=== PATIENT | male | born 1945 | race Caucasian/White ===

== ENCOUNTER → 2017-12-18 13:21 | Outpatient (CLI) | payer MEDICARE, SELFPAY ==
[2017-12-18 15:46] LABS: Absolute Lymphocyte Count 2.33 X10^3/ul (0.83-4.51); Absolute Neutrophil Count 5.2 X10^3/uL (2.0-7.7); Basophil# 0.02 X10^3/uL; Basophil% 0.2 % (0-1); Eosinophil# 0.09 X10^3/uL; Eosinophils% 1.1 % (0-5); Hematocrit 45.9 % (40-54); Hemoglobin 15.1 g/dl (13.0-16.5); Lymphocyte # 2.33 X10^3/ul (4.0); Lymphocyte % 27.9 % (19-41); Mean Corp Hgb Conc 32.9 g/gl (32-36); Mean Corpuscular Hgb 30.1 pg (27.0-32.0); Mean Corpuscular Volume 91.4 fL (80-94); Mean Platelet Vol. 10.7 fl (6.2-12.0); Monocyte# 0.65 X10^3/uL; Monocyte% 7.8 % (0-10); Neutrophil # 5.23 X10^3/uL (2.7-7.7); Neutrophil % 62.8 % (47-70); Platelet Count 321 K/mm3 (150-450); RBC Distribution Width CV 13.7 % (11.6-14.6); RBC Distribution Width SD 45.2 fl (35.1-43.9); Red Blood Count 5.02 M/mm3 (4.6-6.2); White Blood Count 8.3 K/mm3 (4.4-11.0)
[2017-12-18 15:47] LABS: POSITIVE COUNT NO; POSITIVE DIFFERENTIAL NO; POSITIVE MORPHOLOGY NO
[2017-12-18 16:22] LABS: AST(SGOT) 15 U/L (15-37); Alanine Aminotransfer ALT/SGPT 15 U/L (16-61); Albumin, Serum 3.5 g/dL (3.2-5.0); Alkaline Phosphatase 79 U/L (45-117); Anion Gap 10 (5-15); BUN 15 mg/dL (7-18); Chloride 100 mmol/L (98-107); Creatinine, Serum 0.65 mg/dL (0.70-1.30); EST Glomerular Filtration Rate 128 mL/min (>60); Est Glom Filt Rate - Afr Amer 155 mL/min (>60); Globulin 3.6 g/dL (2.2-4.2); Glucose 154 mg/dL (70-110); Potassium 4.3 mmol/L (3.5-5.1); Protein, Total 7.1 g/dL (6.4-8.2); Sodium Level 141 mmol/L (136-145); Thyroid Stim Hormone (TSH) 2.29 uIU/mL (0.358-3.74)
[2017-12-19 07:46] LABS: Hep C Antibodies <0.1 s/co ratio (0.0-0.9)
[2017-12-19 10:58] LABS: Vitamin D,25 Hydroxy 7.7 ng/mL (19.95-100.01)
== END ==
PROVIDERS: Family Provider Family Medicine Geriatric Medicine; PCP Family Medicine Geriatric Medicine; Visit Provider Family Medicine Geriatric Medicine
DX: E11.9 Type 2 diabetes mellitus without complications (principal); E55.9 Vitamin D deficiency, unspecified; I10 Essential (primary) hypertension; Z13.89 Encounter for screening for other disorder
CPT/HCPCS: 36415; 80053; 82306; 84443; 85025; 86803

== ENCOUNTER → 2018-03-12 16:02 | Outpatient (CLI) | payer MEDICARE, SELFPAY ==
[2018-03-12 17:55] LABS: Absolute Lymphocyte Count 2.47 X10^3/ul (0.83-4.51); Absolute Neutrophil Count 5.2 X10^3/uL (2.0-7.7); Basophil# 0.02 X10^3/uL; Basophil% 0.2 % (0-1); Eosinophil# 0.16 X10^3/uL; Eosinophils% 1.8 % (0-5); Hematocrit 44.5 % (40-54); Hemoglobin 14.4 g/dl (13.0-16.5); Lymphocyte # 2.47 X10^3/ul (4.0); Lymphocyte % 28.5 % (19-41); Mean Corp Hgb Conc 32.4 g/gl (32-36); Mean Corpuscular Hgb 29.8 pg (27.0-32.0); Mean Corpuscular Volume 92.1 fL (80-94); Mean Platelet Vol. 10.7 fl (6.2-12.0); Monocyte% 9.2 % (0-10); Neutrophil # 5.19 X10^3/uL (2.7-7.7); Neutrophil % 60.1 % (47-70); Platelet Count 321 K/mm3 (150-450); RBC Distribution Width CV 13.3 % (11.6-14.6); RBC Distribution Width SD 44.5 fl (35.1-43.9); Red Blood Count 4.83 M/mm3 (4.6-6.2); White Blood Count 8.7 K/mm3 (4.4-11.0)
[2018-03-12 17:59] LABS: POSITIVE COUNT NO; POSITIVE DIFFERENTIAL NO; POSITIVE MORPHOLOGY NO
[2018-03-12 18:34] LABS: ALB/GLOB Ratio 0.9 RATIO (0.9-2.4); AST(SGOT) 15 U/L (15-37); Alanine Aminotransfer ALT/SGPT 18 U/L (16-61); Albumin, Serum 3.4 g/dL (3.2-5.0); Alkaline Phosphatase 83 U/L (45-117); Anion Gap 7 (5-15); BUN 17 mg/dL (7-18); BUN/Creat Ratio 22.9 RATIO (10-20); Calcium,Total 9.6 mg/dL (8.5-10.1); Chloride 102 mmol/L (98-107); Creatinine, Serum 0.74 mg/dL (0.70-1.30); EST Glomerular Filtration Rate 110 mL/min (>60); Est Glom Filt Rate - Afr Amer 133 mL/min (>60); Globulin 3.7 g/dL (2.2-4.2); Glucose 163 mg/dL (74-106); Potassium 4.7 mmol/L (3.5-5.1); Protein, Total 7.1 g/dL (6.4-8.2); Sodium Level 142 mmol/L (136-145); Thyroid Stim Hormone (TSH) 4.91 uIU/mL (0.358-3.74)
== END ==
PROVIDERS: Family Provider Family Medicine Geriatric Medicine; PCP Family Medicine Geriatric Medicine; Visit Provider Family Medicine Geriatric Medicine
DX: L03.119 Cellulitis of unspecified part of limb (principal); I10 Essential (primary) hypertension
CPT/HCPCS: 36415; 80053; 84443; 85025

== ENCOUNTER → 2018-04-03 16:55 | Outpatient (CLI) | payer MEDICARE, SELFPAY ==
[2018-04-03 19:26] LABS: M R Staph aureus DNA By PCR POSITIVE (Negative); Probe Check PASS; Staph aureus DNA By PCR POSITIVE (Negative)
== END ==
PROVIDERS: Family Provider Family Medicine Geriatric Medicine; PCP Family Medicine Geriatric Medicine; Visit Provider Family Medicine Geriatric Medicine
DX: L03.119 Cellulitis of unspecified part of limb (principal); J40 Bronchitis, not specified as acute or chronic
CPT/HCPCS: 87070; 87077; 87186; 87205; 87640

== ENCOUNTER → 2018-04-04 09:50 | Outpatient (CLI) | payer MEDICARE, SELFPAY ==
[2018-04-04 16:04] LABS: Absolute Lymphocyte Count 3.79 X10^3/ul (0.83-4.51); Absolute Neutrophil Count 5.6 X10^3/uL (2.0-7.7); Basophil# 0.02 X10^3/uL; Basophil% 0.2 % (0-1); Eosinophil# 0.03 X10^3/uL; Eosinophils% 0.3 % (0-5); Hemoglobin 13.9 g/dl (13.0-16.5); Lymphocyte # 3.79 X10^3/ul (4.0); Lymphocyte % 36.4 % (19-41); Mean Corp Hgb Conc 33.1 g/gl (32-36); Mean Corpuscular Hgb 30.2 pg (27.0-32.0); Mean Corpuscular Volume 91.1 fL (80-94); Monocyte# 0.89 X10^3/uL; Monocyte% 8.5 % (0-10); Neutrophil # 5.61 X10^3/uL (2.7-7.7); Neutrophil % 53.9 % (47-70); Platelet Count 339 K/mm3 (150-450); RBC Distribution Width SD 43.1 fl (35.1-43.9); Red Blood Count 4.61 M/mm3 (4.6-6.2); White Blood Count 10.4 K/mm3 (4.4-11.0)
[2018-04-04 16:06] LABS: POSITIVE COUNT NO; POSITIVE DIFFERENTIAL NO; POSITIVE MORPHOLOGY NO
[2018-04-04 16:08] LABS: Anion Gap 9 (5-15); BUN 20 mg/dL (7-18); BUN/Creat Ratio 23.7 RATIO (10-20); Calcium,Total 9.3 mg/dL (8.5-10.1); Chloride 104 mmol/L (98-107); Creatinine, Serum 0.84 mg/dL (0.70-1.30); EST Glomerular Filtration Rate 95 mL/min (>60); Est Glom Filt Rate - Afr Amer 115 mL/min (>60); Glucose 212 mg/dL (74-106); Potassium 4.4 mmol/L (3.5-5.1); Sodium Level 137 mmol/L (136-145)
== END ==
PROVIDERS: Family Provider Family Medicine Geriatric Medicine; PCP Family Medicine Geriatric Medicine; Visit Provider Family Medicine Geriatric Medicine
DX: R60.9 Edema, unspecified (principal); B97.0 Adenovirus as the cause of diseases classified elsewhere
CPT/HCPCS: 36415; 80048; 85025; 87633

== ENCOUNTER → 2018-04-18 15:30 | Outpatient (CLI) | payer MEDICARE, SELFPAY ==
[2018-04-18 17:42] LABS: M R Staph aureus DNA By PCR Negative (Negative); Probe Check PASS; Specimen Processing Control PASS; Staph aureus DNA By PCR NEGATIVE (Negative)
== END ==
PROVIDERS: Family Provider Family Medicine Geriatric Medicine; PCP Family Medicine Geriatric Medicine; Visit Provider Family Medicine Geriatric Medicine
DX: L03.119 Cellulitis of unspecified part of limb (principal)
CPT/HCPCS: 87070; 87077; 87186; 87205; 87640

== ENCOUNTER → 2018-05-06 14:21 | Outpatient (CLI) | payer MEDICARE, SELFPAY ==
--- NOTE | 2018-04-03 17:05 | RAD_ITS ---
STUDY: X-RAY CHEST REASON FOR EXAM: Male, 72 years old. Bronchitis TECHNIQUE: Frontal and lateral views of the chest. COMPARISON: August 09, 2017 FINDINGS: Mild perihilar bronchovascular predominance. There is no demonstrated pleural abnormality. Normal size heart. Normal mediastinum and ervin. Normal visualized pulmonary arteries. Normal visualized aortic arch and descending thoracic aorta. Normal visualized thoracic spine. Normal visualized ribs, clavicles, and shoulders. There is no demonstrated abnormality of the visualized soft tissue structures of the upper abdomen. RAD/Chest PA and Lateral IMPRESSION: Possible bronchitis. Possible mild CHF. Electronically Signed: Jose Antonio Hamilton MD at 17:42 EDT , Service support ,
[2018-05-06 17:43] LABS: Thyroid Stim Hormone (TSH) 3.08 uIU/mL (0.358-3.74)
== END ==
PROVIDERS: Family Provider Family Medicine Geriatric Medicine; PCP Family Medicine Geriatric Medicine; Visit Provider Family Medicine Geriatric Medicine
DX: E03.9 Hypothyroidism, unspecified (principal)
CPT/HCPCS: 36415; 71046; 84443

== ENCOUNTER 2018-05-16 14:58 | Outpatient (RCR) | payer MEDICARE, SELFPAY ==
[2018-05-16 16:05] VITALS: BP 167/92; PULSE 63; RESP 22; TEMP 36.6; BMI 40.7
--- NOTE | 2018-05-16 21:27 | PCM.WC.HP ---
(1) CHF (congestive heart failure) Status: Acute Code(s): I50.9 - Heart failure, unspecified (2) Bilateral edema of lower extremity Status: Chronic Code(s): R60.0 - Localized edema (3) DM type 2 (diabetes mellitus, type 2) Status: Chronic Code(s): E11.9 - Type 2 diabetes mellitus without complications (4) Essential hypertension Status: Chronic Code(s): I10 - Essential (primary) hypertension (5) Peripheral vascular disease Status: Suspected Code(s): I73.9 - Peripheral vascular disease, unspecified History of Present Illness Date of Service: 05/16/18 Chief Complaint: B/L lower extremity edema History of Wound: This is a 72-year-old white male who presents to the wound healing center today for evaluation of bilateral lower extremity edema. He has a past medical history which is significant for that of hypertension hyperlipidemia, GERD, type 2 diabetes mellitus, CHF, and lower extremity edema. The patient states that his lower extremity edema has been worsened over the past couple weeks. He states that his swelling is dependent and usually improves when he raises his feet, however he has not been able to do so lately due to chronic low back pain d/t spinal stenosis that prevents him from laying in bed at night as well. He denies any active wounds at this time. An echocardiogram was done in 2016 which demonstrated an ejection fraction of 60% with mild to moderate tricuspid insufficiency and RVSP 34 mmHg. He does deny any orthopnea or dyspnea on exertion at this time as well. He otherwise denies any fever, chills, nausea, vomiting, shortness of breath, chest pain or pressure, syncope or presyncopal episodes. Past Medical History Past Medical History: Chronic Problems Hypothyroidism (Chronic) Dyslipidemia (Chronic) DM type 2 (diabetes mellitus, type 2) (Chronic) Essential hypertension (Chronic) Bilateral edema of lower extremity (Chronic) Constipation (Chronic) Abdominal pain (Chronic) Chronic GERD (Chronic) Xerosis of skin (Chronic) Risk for falls (Chronic) Venous insufficiency (Chronic) Diabetes mellitus with neuropathy (Chronic) Venous stasis dermatitis of right lower extremity (Chronic) Surgical History: rotator cuff repair, - Allergies/Adverse Reactions: Allergies cocaine Allergy (Verified 05/17/18 09:51) Unknown atorvastatin calcium [From Lipitor] Adverse Reaction (Verified 05/17/18 09:51) Pain in joints haloperidol [From Haldol] Adverse Reaction (Verified 05/17/18 09:51) Other WENT CRAZY morphine Adverse Reaction (Verified 05/17/18 09:51) Other extremely aggitated oxycodone [From OxyIR] Adverse Reaction (Verified 05/17/18 09:51) Pain in joints extremely aggitated prednisone Adverse Reaction (Verified 05/17/18 09:51) ANXIOUS, INSOMNIA STERIODS Adverse Reaction (Uncoded 05/17/18 09:51) Other ANXIETY INSOMNIA Home Medications: Ambulatory Orders Medication Instructions Recorded Insulin Glargine,Hum.rec.anlog 45 unit SC QHS 09/27/16 [Lantus] Levothyroxine [Synthroid] 88 mcg PO DAILY 09/27/16 Paroxetine HCl [Paxil] 40 mg PO DAILY 09/27/16 Potassium Chloride [K-Dur] 20 meq PO BID 09/27/16 Simvastatin [Zocor] 40 mg PO QHS 09/27/16 Sitagliptin Phosphate [Januvia] 100 mg PO DAILY 09/27/16 Torsemide [Demadex] 20 mg PO BID 09/27/16 traZODone [Desyrel] 50 mg PO QHS 09/27/16 Aspirin 81 mg PO DAILY 08/14/17 Divalproex Sodium [Depakote] 500 mg PO BID 08/14/17 Gabapentin [Neurontin] 300 mg PO ACHS 08/14/17 Insulin Lispro [Humalog KwikPen] 0 unit SQ 4X/DAY 08/14/17 Allopurinol 100 mg PO DAILY 05/17/18 Diclofenac [Voltaren] 25 mg PO BIDCM 05/17/18 Dulaglutide [Trulicity] 1.5 mg SQ QWEEK 05/17/18 - Family History Maternal Unknown Paternal Heart Disease - decased age 73 Smoking Status: Smoker, status unknown Review of Systems Constitutional: Denies: Chills, Fever, Weight Change Eyes: Denies: Pain, Vision Change HEENT: Denies: Difficulty Hearing, Difficulty Swallowing, Sinus Congestion Cardiovascular: Reports: Edema - see hpi. Denies: Chest Pain, Palpitations Respiratory: Denies: Cough, Shortness of Breath Gastrointestinal: Denies: Diarrhea, Nausea, Vomiting Genitourinary: Denies: Dysuria, Hematuria Endocrine: Denies: Heat/ Cold Intolerance, Polydipsia, Polyuria Hematologic/ Lymphatic: Denies: Easy Bruising, Easy Bleeding - Physical Exam Vital Signs Temp Pulse Resp BP 98 F 63 22 H 167/92 H 05/16/18 16:05 05/16/18 16:05 05/16/18 16:05 05/16/18 16:05 General: Alert, Oriented x3, Cooperative, No apparent distress HEENT: PERRLA, EOMI Neck: Supple, No JVD, Negative Carotid Bruits Lungs: Clear to auscultation, Normal air movement Cardiovascular: Regular rate, Regular Rhythm Abdomen: Soft, Non Tender Extremities: Capillary Refill Less than 3 Seconds, Diminished Peripheral Pulses, Edema - 3+ BLLE edema, slight erythema present RLE w/o signs of infection Skin: No rashes, No breakdown Musculoskeletal: Tenderness - low back Neurological: Cranial nerves II-XII grossly intact, Neuro grossly intact Psych/Mental Status: Normal Affect, Appropriate, Alert and oriented to time, place, person, mood and affect Debridement Note Post-Debridement Measurements/Treatment WC - Nurse 2 - General Ulcer CM Notes Start: 05/16/18 16:04 Freq: Status: Active Protocol: Activity Type Activity Date Activity User E-Sign Co-Sign Detail Recorded Client Recorded Date Recorded By Document 05/16/18 17:00 [id number] 05/17/18 11:53 TM Document 05/16/18 17:00 [id number] 05/17/18 11:54 TM 05/16/18 05/16/18 17:00 17:00 Pain Scale: 0-10 Numeric Is Patient Pain Free? Yes Yes No debridement was completed today Assessment/Plan Assessment: see above diagnoses Plan: The patient was seen and examined at the wound center today and was updated on the plan of care. No debridement was performed today due to no indication.The patient will use adaptic on reddened excoriated areas on RLE. Baseline bloodwork ordered and BNP. Vascular studies ordered.Double tubigrips for compression. 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 Patient educated on the importance of diet on wound healing and instructed to increase protein and vitamin C intake. Patient verbalized understanding. Patient will follow up at wound healing center in one week or sooner if needed. This note was generated with [employer] software. It may contain incorrect words, spelling, and punctuation that were not noted in checking the note before signing. Code Visit Office Visits / Consults: [id number] OV L4 Est
--- NOTE | 2018-05-22 21:38 | HP.PCM_ITS ---
(1) CHF (congestive heart failure) Status: Acute Code(s): I50.9 - Heart failure, unspecified (2) Bilateral edema of lower extremity Status: Chronic Code(s): R60.0 - Localized edema (3) DM type 2 (diabetes mellitus, type 2) Status: Chronic Code(s): E11.9 - Type 2 diabetes mellitus without complications (4) Essential hypertension Status: Chronic Code(s): I10 - Essential (primary) hypertension (5) Peripheral vascular disease Status: Suspected Code(s): I73.9 - Peripheral vascular disease, unspecified History of Present Illness Date of Service: 05/16/18 Chief Complaint: B/L lower extremity edema History of Wound: This is a 72-year-old white male who presents to the wound healing center today for evaluation of bilateral lower extremity edema. He has a past medical history which is significant for that of hypertension hyperlipidemia, GERD, type 2 diabetes mellitus, CHF, and lower extremity edema. The patient states that his lower extremity edema has been worsened over the past couple weeks. He states that his swelling is dependent and usually improves when he raises his feet, however he has not been able to do so lately due to chronic low back pain d/t spinal stenosis that prevents him from laying in bed at night as well. He denies any active wounds at this time. An echocardiogram was done in 2016 which demonstrated an ejection fraction of 60% with mild to moderate tricuspid insufficiency and RVSP 34 mmHg. He does deny any orthopnea or dyspnea on exertion at this time as well. He otherwise denies any fever, chills, nausea, vomiting, shortness of breath, chest pain or pressure , syncope or presyncopal episodes. Past Medical History Past Medical History: Chronic Problems Hypothyroidism (Chronic) Dyslipidemia (Chronic) DM type 2 (diabetes mellitus, type 2) (Chronic) Essential hypertension (Chronic) Bilateral edema of lower extremity (Chronic) Constipation (Chronic) Abdominal pain (Chronic) Chronic GERD (Chronic) Xerosis of skin (Chronic) Risk for falls (Chronic) Venous insufficiency (Chronic) Diabetes mellitus with neuropathy (Chronic) Venous stasis dermatitis of right lower extremity (Chronic) Surgical History: rotator cuff repair, - Allergies/Adverse Reactions: Allergies cocaine Allergy (Verified 05/17/18 09:51) Unknown atorvastatin calcium [From Lipitor] Adverse Reaction (Verified 05/17/18 09:51) Pain in joints haloperidol [From Haldol] Adverse Reaction (Verified 05/17/18 09:51) Other WENT CRAZY morphine Adverse Reaction (Verified 05/17/18 09:51) Other extremely aggitated oxycodone [From OxyIR] Adverse Reaction (Verified 05/17/18 09:51) Pain in joints extremely aggitated prednisone Adverse Reaction (Verified 05/17/18 09:51) ANXIOUS, INSOMNIA STERIODS Adverse Reaction (Uncoded 05/17/18 09:51) Other ANXIETY INSOMNIA Home Medications: Ambulatory Orders Medication Instructions Recorded Insulin Glargine,Hum.rec.anlog 45 unit SC QHS 09/27/16 [Lantus] Levothyroxine [Synthroid] 88 mcg PO DAILY 09/27/16 Paroxetine HCl [Paxil] 40 mg PO DAILY 09/27/16 Potassium Chloride [K-Dur] 20 meq PO BID 09/27/16 Simvastatin [Zocor] 40 mg PO QHS 09/27/16 Sitagliptin Phosphate [Januvia] 100 mg PO DAILY 09/27/16 Torsemide [Demadex] 20 mg PO BID 09/27/16 traZODone [Desyrel] 50 mg PO QHS 09/27/16 Aspirin 81 mg PO DAILY 08/14/17 Divalproex Sodium [Depakote] 500 mg PO BID 08/14/17 Gabapentin [Neurontin] 300 mg PO ACHS 08/14/17 Insulin Lispro [Humalog KwikPen] 0 unit SQ 4X/DAY 08/14/17 Allopurinol 100 mg PO DAILY 05/17/18 Diclofenac [Voltaren] 25 mg PO BIDCM 05/17/18 Dulaglutide [Trulicity] 1.5 mg SQ QWEEK 05/17/18 - Family History Maternal Unknown Paternal Heart Disease - decased age 73 Smoking Status: Smoker, status unknown Review of Systems Constitutional: Denies: Chills, Fever, Weight Change Eyes: Denies: Pain, Vision Change HEENT: Denies: Difficulty Hearing, Difficulty Swallowing, Sinus Congestion Cardiovascular: Reports: Edema - see hpi. Denies: Chest Pain, Palpitations Respiratory: Denies: Cough, Shortness of Breath Gastrointestinal: Denies: Diarrhea, Nausea, Vomiting Genitourinary: Denies: Dysuria, Hematuria Endocrine: Denies: Heat/ Cold Intolerance, Polydipsia, Polyuria Hematologic/ Lymphatic: Denies: Easy Bruising, Easy Bleeding - Physical Exam Vital Signs Temp Pulse Resp BP 98 F 63 22 H 167/92 H 05/16/18 16:05 05/16/18 16:05 05/16/18 16:05 05/16/18 16:05 General: Alert, Oriented x3, Cooperative, No apparent distress HEENT: PERRLA, EOMI Neck: Supple, No JVD, Negative Carotid Bruits Lungs: Clear to auscultation, Normal air movement Cardiovascular: Regular rate, Regular Rhythm Abdomen: Soft, Non Tender Extremities: Capillary Refill Less than 3 Seconds, Diminished Peripheral Pulses , Edema - 3+ BLLE edema, slight erythema present RLE w/o signs of infection Skin: No rashes, No breakdown Musculoskeletal: Tenderness - low back Neurological: Cranial nerves II-XII grossly intact, Neuro grossly intact Psych/Mental Status: Normal Affect, Appropriate, Alert and oriented to time, place, person, mood and affect Debridement Note Post-Debridement Measurements/Treatment WC - Nurse 2 - General Ulcer CM Notes Start: 05/16/18 16:04 Freq: Status: Active Protocol: Activity Type Activity Date Activity User E-Sign Co-Sign Detail Recorded Client Recorded Date Recorded By Document 05/16/18 17:00 [id number] 05/17/18 11:53 TM Document 05/16/18 17:00 [id number] 05/17/18 11:54 TM 05/16/18 05/16/18 17:00 17:00 Pain Scale: 0-10 Numeric Is Patient Pain Free? Yes Yes No debridement was completed today Assessment/Plan Assessment: see above diagnoses Plan: The patient was seen and examined at the wound center today and was updated on the plan of care. No debridement was performed today due to no indication.The patient will use adaptic on reddened excoriated areas on RLE. Baseline bloodwork ordered and BNP. Vascular studies ordered.Double tubigrips for compression. 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 Patient educated on the importance of diet on wound healing and instructed to increase protein and vitamin C intake. Patient verbalized understanding. Patient will follow up at wound healing center in one week or sooner if needed. This note was generated with [employer] software. It may contain incorrect words, spelling, and punctuation that were not noted in checking the note before signing. Code Visit Office Visits / Consults: [id number] OV L4 Est
== END 2018-05-18 23:59 ==
LOC: WC 14:58
PROVIDERS: Family Provider Family Medicine Geriatric Medicine; PCP Family Medicine Geriatric Medicine; Visit Provider Nurse Practitioner Family
DX: I11.0 Hypertensive heart disease with heart failure (principal); I50.9 Heart failure, unspecified; R60.0 Localized edema; E11.9 Type 2 diabetes mellitus without complications; I73.9 Peripheral vascular disease, unspecified; K21.9 Gastro-esophageal reflux disease without esophagitis; E78.5 Hyperlipidemia, unspecified; E11.40 Type 2 diabetes mellitus with diabetic neuropathy, unspecified; Z79.899 Other long term (current) drug therapy
CPT/HCPCS: 97597; 99213; G0463

== ENCOUNTER 2018-05-17 09:01 | Emergency (ER) | payer MEDICARE, SELFPAY ==
[2018-05-17] VITALS (9 sets, daily range): BP systolic 160–227; BP diastolic 85–185; PULSE 60–64; RESP 18; TEMP 36.7; O2SAT 96–98; BMI 40.1
--- NOTE | 2018-05-17 09:15 | EKG12_ITS ---
Test Reason : Blood Pressure : / mmHG Vent. Rate : 062 BPM Atrial Rate : 062 BPM P-R Int : 178 ms QRS Dur : 098 ms QT Int : 438 ms P-R-T Axes : 048 -57 042 degrees QTc Int : 444 ms Normal sinus rhythm Left anterior fascicular block Anterolateral infarct , age undetermined Abnormal ECG Confirmed by COLLEEN LIMA, DEENA ([id number]), publications editor PK STACY ([id number]) on 05/23/2018 3:10:33 PM Referred By: RICARDO Confirmed By:DEENA MACIAS MD
--- NOTE | 2018-05-17 09:22 | RAD_ITS ---
STUDY: X-RAY CHEST REASON FOR EXAM: Male, 72 years old. Chest pain TECHNIQUE: Single AP portable view of the chest. COMPARISON: 04/03/2018. FINDINGS: The lungs are clear and expanded. There is no demonstrated pleural abnormality. There is mild cardiac enlargement. Normal mediastinum and ervin. Normal visualized pulmonary arteries. Normal visualized aortic arch and descending thoracic aorta. There are diffuse degenerative changes of the visualized thoracic spine. There is degenerative osteoarthritis of the bilateral shoulders. Previous surgery of the left shoulder. There is no demonstrated abnormality of the visualized soft tissue structures of the upper abdomen. RAD/Chest 1 View (Portable) IMPRESSION: No acute chest disease. Electronically Signed: Nabeel Painting MD at 9:37 EDT , Service support ,
[2018-05-17] MEDS: Aspirin 81 MG TAB.CHEW 324 MG PO (09:26)
--- NOTE | 2018-05-17 09:26 | ED.VISSUMM ---
- ER Visit Summary Date of Service: 05/17/18 Chief Complaint: Chest pain History of Present Illness: The patient is a 72 M presents with chest pain that lasted about 10 minutes just prior to arrival. No radiation. No diaphoresis or shortness of breath. No cough, fever or chills. He has a history of a negative catheterization 2 years ago. Physical Examination: Not appear in acute distress. Moist mucous membranes, no obvious facial deformity No C-spine tenderness supple neck. Regular rate and rhythm without any obvious murmurs Clear lungs bilaterally speaking in full sentences without any obvious respiratory distress Abdomen soft and nontender no guarding or rebound Moves all extremities without any difficulty or pain. Skin does not show any obvious rashes or lesions, no trauma. Alert oriented ?3 with no gross focal deficit Emergency Department Course and Treatment: Patient continues to be asymptomatic in the emergency department. 2 troponins 2 hours apart were negative. He had a negative catheterization 2 years ago. I discussed the patient with Dr. Dozier. Patient will be followed up. I do not believe there is a reason for inpatient workup. He does know that if he has recurrence or worsening of his symptoms needs to return. Impression: Chest pain This note was generated with [employer] dictation software. It may contain incorrect words, spelling, and punctuation that were not noted in review of the chart prior to signing ED Disposition - Plan for ED Patient: Chief Complaint: Chest Pain Referrals: Gil Wheeler Chi, MD [Primary Care Provider] -
[2018-05-17 09:47] LABS: Absolute Neutrophil Count 4.9 X10^3/uL (2.0-7.7); Basophil# 0.02 X10^3/uL; Basophil% 0.2 % (0-1); Eosinophil# 0.06 X10^3/uL; Eosinophils% 0.7 % (0-5); Hematocrit 45.3 % (40-54); Hemoglobin 15.4 g/dl (13.0-16.5); Mean Corpuscular Hgb 30.4 pg (27.0-32.0); Mean Corpuscular Volume 89.5 fL (80-94); Mean Platelet Vol. 9.9 fl (6.2-12.0); Monocyte# 0.89 X10^3/uL; Monocyte% 10.7 % (0-10); Neutrophil # 4.88 X10^3/uL (2.7-7.7); Neutrophil % 58.9 % (47-70); Platelet Count 342 K/mm3 (150-450); RBC Distribution Width CV 13.4 % (11.6-14.6); Red Blood Count 5.06 M/mm3 (4.6-6.2); White Blood Count 8.3 K/mm3 (4.4-11.0)
[2018-05-17 09:49] LABS: POSITIVE COUNT NO; POSITIVE DIFFERENTIAL NO; POSITIVE MORPHOLOGY NO
[2018-05-17 10:02] LABS: Anion Gap 8 (5-15); BUN 19 mg/dL (7-18); Calcium,Total 9.1 mg/dL (8.5-10.1); Chloride 100 mmol/L (98-107); Creatinine, Serum 0.95 mg/dL (0.70-1.30); EST Glomerular Filtration Rate 82 mL/min (>60); Est Glom Filt Rate - Afr Amer 100 mL/min (>60); Estimated Creatinine Clearance 70.29 ml/min; Glucose 219 mg/dL (74-106); Potassium 3.5 mmol/L (3.5-5.1); Sodium Level 139 mmol/L (136-145)
[2018-05-17 10:12] LABS: Hemoglobin A1c 8.3 % (4.2-6.3)
--- NOTE | 2018-05-17 12:27 | ED.DEP ---
ED Disposition - Plan for ED Patient: Disposition: Home or Assisted Living Chief Complaint: Chest Pain Instructions: ED Chest Pain [facility] Referrals: Jethro Dozier MD [STAFF PHYSICIAN] - 3-5 Days
== END 2018-05-17 12:45 | disposition home or self-care (01) ==
PROVIDERS: Emergency Provider Emergency Medicine; Family Provider Family Medicine Geriatric Medicine; PCP Family Medicine Geriatric Medicine
DX: R07.9 Chest pain, unspecified (principal); E11.9 Type 2 diabetes mellitus without complications; I10 Essential (primary) hypertension; Z79.82 Long term (current) use of aspirin; Z79.4 Long term (current) use of insulin; Z79.899 Other long term (current) drug therapy
CPT/HCPCS: 71045; 80048; 83036; 84484; 85025; 93005; 99285; A4216

== ENCOUNTER → 2018-06-10 14:00 | Outpatient (CLI) | payer MEDICARE, SELFPAY ==
[2018-06-10 17:20] LABS: Absolute Lymphocyte Count 2.75 X10^3/ul (0.83-4.51); Absolute Neutrophil Count 5.7 X10^3/uL (2.0-7.7); Basophil# 0.02 X10^3/uL; Basophil% 0.2 % (0-1); Eosinophil# 0.11 X10^3/uL; Eosinophils% 1.2 % (0-5); Hematocrit 45.2 % (40-54); Lymphocyte # 2.75 X10^3/ul (4.0); Lymphocyte % 28.8 % (19-41); Mean Corp Hgb Conc 33.2 g/gl (32-36); Mean Corpuscular Hgb 30.5 pg (27.0-32.0); Mean Corpuscular Volume 91.9 fL (80-94); Mean Platelet Vol. 11.4 fl (6.2-12.0); Monocyte% 9.4 % (0-10); Neutrophil # 5.71 X10^3/uL (2.7-7.7); Neutrophil % 59.8 % (47-70); Platelet Count 287 K/mm3 (150-450); RBC Distribution Width CV 13.5 % (11.6-14.6); RBC Distribution Width SD 45.1 fl (35.1-43.9); Red Blood Count 4.92 M/mm3 (4.6-6.2); White Blood Count 9.6 K/mm3 (4.4-11.0)
[2018-06-10 17:34] LABS: Vitamin D,25 Hydroxy 17.2 ng/mL (29.95-100.01)
[2018-06-10 17:40] LABS: ALB/GLOB Ratio 0.9 RATIO (0.9-2.4); AST(SGOT) 32 U/L (15-37); Alanine Aminotransfer ALT/SGPT 29 U/L (16-61); Albumin, Serum 3.3 g/dL (3.2-5.0); Alkaline Phosphatase 86 U/L (45-117); Anion Gap 8 (5-15); BUN 18 mg/dL (7-18); BUN/Creat Ratio 21.6 RATIO (10-20); Calcium,Total 9.1 mg/dL (8.5-10.1); Chloride 102 mmol/L (98-107); Creatinine, Serum 0.83 mg/dL (0.70-1.30); EST Glomerular Filtration Rate 96 mL/min (>60); Est Glom Filt Rate - Afr Amer 116 mL/min (>60); Globulin 3.8 g/dL (2.2-4.2); Glucose 224 mg/dL (74-106); Potassium 4.4 mmol/L (3.5-5.1); Protein, Total 7.1 g/dL (6.4-8.2); Sodium Level 140 mmol/L (136-145); Thyroid Stim Hormone (TSH) 3.96 uIU/mL (0.358-3.74)
[2018-06-10 18:18] LABS: POSITIVE COUNT NO; POSITIVE DIFFERENTIAL NO; POSITIVE MORPHOLOGY NO
== END ==
PROVIDERS: Family Provider Family Medicine Geriatric Medicine; PCP Family Medicine Geriatric Medicine; Visit Provider Family Medicine Geriatric Medicine
DX: E11.9 Type 2 diabetes mellitus without complications (principal); I10 Essential (primary) hypertension; E55.9 Vitamin D deficiency, unspecified
CPT/HCPCS: 36415; 80053; 82306; 84443; 85025

== ENCOUNTER 2018-06-12 15:41 | Outpatient (RCR) | payer MEDICARE, SELFPAY ==
--- NOTE | 2018-06-19 10:01 | HP.OTEVAL_ITS ---
Patient's Visit Information PAYTON GONZALES is a 72 year old M, referred to Occupational Therapy by Panchito Hammond NP-Morris, with a diagnosis of I89.0,R60.0, E11.9, I73.9. Date of Evaluation: 06/12/18 Occupational Therapist: ALIVIA Thrasher/Marcela, CHT - Subjective Subjective: This 72 year old male was seen for intial OT eval with concerns of LE swelling. states he has been struggling with his leg swelling, infections for 2-3 years. pt is currently getting treatment from the wound center and will need alternative compression garments, and lymphedema pump for home mtg. reports pt sleeps in lift chair and has power scooter he will use in the house- states he is very limited with ambulation due to back and knee issues. Pt has a lift chair, BSC, WC and electric scooter. assist pt with all BADls and IADLs. - Lymphedema (Circumferential Measure) Mid-foot: R/L 29/28cm Ankle: R/L 35/32cm Lower calf: R/L 32.5/28cm Largest calf: R/L 38/38cm Below knee: R/L 41/41cm - Lower Limb Functional Index Lower Extremity Functional Score: 7 - Goals Demonstrate a 20% reduction in edema by d/c: Yes Select approp compression garment w/donning/care/wear by d/c: Yes Voice need to replace compression garment every 4-6mo by dc: Yes - Rehabilitation General Assessment: PT demo with need for lymphedema mtg. use of alternative compression garments to increase use of g[place]et. Pt would benefit from lymphedema pump to mtg his swelling as amb, and movment is difficult. has expressed she has difficulty getting pt out of the house and into the car. Due to this does want home program for pt. Pt has failed conservitive methods of lymphdema mtg in the past- will pursue order for alternative compression garments as circaide 20-30mmHg, and a home lymphedema pump. Rehabilitation Potential: Questionable - Anticipated Interventions Anticipated Interventions: Manual Lymph Drainage, Education re Life-long lymphedema Management, Education re Skin Care and Precautions, Education re Correct Donning Tech,Care&Wearing Sched Comp Garments, Caregiver Training Other Interventions: use of compression pump for home lymphedeam mtg - Visit Plan TEXT: Thank you for the opportunity to evaluate your patient. For Medicare and Medicare HMO plans, please review the plan of care and approve it. It will need to be FAXED BACK to us at [phone] for Medicare purposes. Please let me know if there are questions or concerns regarding this plan of care. Physician Signature: Date:
--- NOTE | 2018-07-17 16:06 | HP.OT.NRP ---
HP - Discharge Summary - Patient Information PAYTON GONZALES was seen in my office for initial evaluation on 06/12/18. The following Plan of Care was established for this patient: - Anticipated Interventions Anticipated Interventions: Manual Lymph Drainage, Education re Life-long lymphedema Management, Education re Skin Care and Precautions, Education re Correct Donning Tech,Care&Wearing Sched Comp Garments, Caregiver Training Other Interventions: use of compression pump for home lymphedeam mtg This patient was last seen in our office 06/12/18. Pertinent comments regarding their Occupational therapy will appear below: Pt was seen for eval only. did call to let therapist know they did get compression pump. did not get compression hose yet. stated they would not be back in as the dificulty with [facility] her . pt d/c per request At this point I will be discontinuing this patient from occupational therapy. I would be happy to see this patient again in the future if found appropriate by the physician. Thank you! Rebekah Millan, OTR/L, CHT
== END 2018-06-12 19:00 | disposition home or self-care (01) ==
LOC: OT 15:41
PROVIDERS: Family Provider Family Medicine Geriatric Medicine; PCP Family Medicine Geriatric Medicine; Visit Provider Nurse Practitioner Family
DX: I89.0 Lymphedema, not elsewhere classified (principal); R60.0 Localized edema; E11.9 Type 2 diabetes mellitus without complications; I73.9 Peripheral vascular disease, unspecified
CPT/HCPCS: 97166

== ENCOUNTER 2018-06-13 15:00 | Outpatient (RCR) | payer MEDICARE, SELFPAY ==
[2018-05-19 01:16] VITALS: BP 167/92; PULSE 63; RESP 22; TEMP 36.6
[2018-05-23 15:51] VITALS: BP 153/78; PULSE 62; RESP 18; TEMP 36.4
[2018-05-23 17:06] LABS: Absolute Neutrophil Count 6.1 X10^3/uL (2.0-7.7); Basophil# 0.02 X10^3/uL; Basophil% 0.2 % (0-1); Eosinophil# 0.08 X10^3/uL; Eosinophils% 0.8 % (0-5); Hematocrit 43.5 % (40-54); Hemoglobin 14.8 g/dl (13.0-16.5); Lymphocyte % 27.2 % (19-41); Mean Corpuscular Hgb 30.5 pg (27.0-32.0); Mean Corpuscular Volume 89.5 fL (80-94); Mean Platelet Vol. 10.6 fl (6.2-12.0); Monocyte# 0.94 X10^3/uL; Monocyte% 9.5 % (0-10); Neutrophil # 6.12 X10^3/uL (2.7-7.7); Neutrophil % 61.8 % (47-70); Platelet Count 334 K/mm3 (150-450); RBC Distribution Width CV 13.4 % (11.6-14.6); RBC Distribution Width SD 43.6 fl (35.1-43.9); Red Blood Count 4.86 M/mm3 (4.6-6.2); White Blood Count 9.9 K/mm3 (4.4-11.0)
[2018-05-23 17:13] LABS: POSITIVE COUNT NO; POSITIVE DIFFERENTIAL NO; POSITIVE MORPHOLOGY NO
[2018-05-23 17:36] LABS: BNP,B-Type NATRIURETIC PEPTIDE 35.4 pg/mL (0-100)
[2018-05-23 17:40] LABS: Anion Gap 11 (5-15); BUN 19 mg/dL (7-18); BUN/Creat Ratio 25.8 RATIO (10-20); Calcium,Total 8.9 mg/dL (8.5-10.1); Chloride 98 mmol/L (98-107); Creatinine, Serum 0.74 mg/dL (0.70-1.30); EST Glomerular Filtration Rate 111 mL/min (>60); Est Glom Filt Rate - Afr Amer 134 mL/min (>60); Estimated Creatinine Clearance 62.43 ml/min; Glucose 154 mg/dL (74-106); Potassium 3.5 mmol/L (3.5-5.1); Sodium Level 141 mmol/L (136-145); Thyroid Stim Hormone (TSH) 3.75 uIU/mL (0.358-3.74)
--- NOTE | 2018-05-29 07:13 | VDLE_ITS ---
Reason For Study: LEG SWELLING RIGHT LEFT CFV is compressible, spontaneous, phasic, CFV is compressible, spontaneous, phasic, competent and demonstrates normal competent, and demonstrates normal augmentation. augmentation. FV is compressible, spontaneous, phasic, FV is compressible, spontaneous, phasic, competent and demonstrates normal competent and demonstrates normal augmentation. augmentation. POP V is compressible, spontaneous, phasic, POP V is compressible, spontaneous, phasic, competent and demonstrates normal competent and demonstrates normal augmentation. augmentation. T/P Trunk is compressible. T/P Trunk is compressible. PTV is compressible. PTV is compressible. SFJ is competent LT PerV is compressible. GSV is competent SFJ is competent SSV diminutive unable to assess. GSV is competent Procedure SSV is competent. Exam performed in department. A preliminary report was called and/or faxed to [facility]. Interpretation Summary Deep veins of the lower extremities are bilaterally patent and compressible segmentally. There is no evidence of deep vein thrombosis on either side. Valvular competence appears intact within the proximal deep venous systems bilaterally. The greater saphenous veins appear bilaterally patent and compressible segmentally. Sapheno-femoral junctions are bilaterally competent . Valvular competence appears to be intact segmentally within the greater saphenous veins bilaterally. The right small saphenous vein is diminutive and could not be assessed. The left small saphenous vein is patent and competent. Ordering Physician: Panchito Hammond Referring Physician: Panchito Hammond [facility] Performed By: Arianne Agosto RVT
--- NOTE | 2018-05-29 09:05 | PCM.WC.PN ---
(1) Skin tear of right lower leg without complication Status: Acute Current Visit: Yes Code(s): S81.811A - Laceration without foreign body, right lower leg, initial encounter (2) Bilateral edema of lower extremity Status: Chronic Current Visit: Yes Code(s): R60.0 - Localized edema (3) DM type 2 (diabetes mellitus, type 2) Status: Chronic Current Visit: Yes Code(s): E11.9 - Type 2 diabetes mellitus without complications (4) Essential hypertension Status: Chronic Current Visit: Yes Code(s): I10 - Essential (primary) hypertension (5) Hypothyroidism Status: Chronic Current Visit: Yes Code(s): E03.9 - Hypothyroidism, unspecified (6) Venous insufficiency Status: Chronic Current Visit: Yes (7) Peripheral vascular disease Status: Suspected Current Visit: Yes Code(s): I73.9 - Peripheral vascular disease, unspecified Type of Wound Date of Service: 05/23/18 Chief Complaint: B/L lower extrtemity edema History of Wound: This is a 72-year-old white male who presents to the wound healing center today for evaluation of bilateral lower extremity edema. He has a past medical history which is significant for that of hypertension hyperlipidemia, GERD, type 2 diabetes mellitus, CHF, and lower extremity edema. The patient states that his lower extremity edema has been worsened over the past couple weeks. He states that his swelling is dependent and usually improves when he raises his feet, however he has not been able to do so lately due to chronic low back pain d/t spinal stenosis that prevents him from laying in bed at night as well. He denies any active wounds at this time. An echocardiogram was done in 2016 which demonstrated an ejection fraction of 60% with mild to moderate tricuspid insufficiency and RVSP 34 mmHg. He does deny any orthopnea or dyspnea on exertion at this time as well. He otherwise denies any fever, chills, nausea, vomiting, shortness of breath, chest pain or pressure, syncope or presyncopal episodes. Progress of Wound: Pt does note his swelling is about the same, however, the redness has decreased, he does note a new skin tear the occurred to the right lower extremity and is unsure how it occurred. Denies any signs of systemic infection at this time and denies any increase in pain of the legs. Per pt, he did go to the ED previously for CP and work up was negative, currently denies any CP - Physical Exam Vital Signs Temp Pulse Resp BP 97.5 F L 62 18 153/78 H 05/23/18 15:51 05/23/18 15:51 05/23/18 15:51 05/23/18 15:51 General: Alert, Oriented x3, Cooperative, No apparent distress HEENT: Atraumatic Lungs: Clear to auscultation Cardiovascular: Regular rate Extremities: Edema - BLLE edema 2+ with slight rubor present, nontender to touch Skin: Skin Tear - small skin tear present RLE without signs of infection, some adherant slough, no pus or drainage Neurological: Neuro grossly intact Psych/Mental Status: Normal Affect, Appropriate, Alert and oriented to time, place, person, mood and affect Debridement Note Post-Debridement Measurements/Treatment WC - Nurse 2 - General Ulcer CM Notes Start: 05/23/18 15:47 Freq: Status: Active Protocol: Activity Type Activity Date Activity User E-Sign Co-Sign Detail Recorded Client Recorded Date Recorded By Document 05/23/18 16:14 [id number] 05/23/18 16:16 05/23/18 16:14 Wound Center Nurse 2 #1 right lateral lower leg -Time 16:14 -Correct Patient Yes -Correct Side, Site, Position Yes -Correct Procedure Yes -Procedure Performed Yes -Type of Procedure Debridement -Clinical Debridement Subcutaneous -Post Debridement Size (cm) - Length 1.2 -Post Debridement Size (cm) - Width 0.7 -Post Debridement Size (cm) - Depth 0.1 -Total Square Cm 0.84 -Wound/Ulcer Outcome Not Healed -Ulcer Cleansing Rinsed/ Irrigated with Saline -Foul Odor after Cleansing No -Bioengineered Tissue No -Topical Lidocaine (%) 4 -Bleeding Controlled with Pressure -Treatment Response Procedure Tolerated Well Pain Scale: 0-10 Numeric Is Patient Pain Free? Yes Wound debrided: RLE skin tear ulcer Laterality: Right Type of Debridement: Excisional debridement Anesthesia Used: 5% Lidocaine Gel Depth: Down to and including healthy tissue, in the subcutaneous layer Percentage of wound debrided: 100 Instrument Used: 5mm curette Tissue Removed: slough and devitalized tissue Severity: Fat Layer Exposed Amount of bleeding with debridement: Mild Bleeding Controlled with: Pressure Patient tolerated procedure well Assessment/Plan Active Problems Skin tear of right lower leg without complication (Acute) Hypothyroidism (Chronic) DM type 2 (diabetes mellitus, type 2) (Chronic) Essential hypertension (Chronic) Bilateral edema of lower extremity (Chronic) Venous insufficiency (Chronic) Assessment: see above diagnoses Plan: The patient was seen and examined at the wound center today and was updated on the plan of care. Subq debridement was performed today on RLE skin tear as documented above.The patient will use adaptic on reddened excoriated areas on RLE and aquacell to the ulcer. Baseline bloodwork ordered and BNP and pending. Vascular studies pending.Double tubigrips for compression. 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 Patient educated on the importance of diet on wound healing and instructed to increase protein and vitamin C intake. Patient verbalized understanding. Patient will follow up at wound healing center in one week or sooner if needed. This note was generated with [employer] dictation software. It may contain incorrect words, spelling, and punctuation that were not noted in checking the note before signing. Code Visit 111xxx-113xx: [id number] Shanna subq tissue 20 sq cm/<
--- NOTE | 2018-05-30 09:15 | PN.PCM_ITS ---
(1) Skin tear of right lower leg without complication Status: Acute Current Visit: Yes Code(s): S81.811A - Laceration without foreign body, right lower leg, initial encounter (2) Bilateral edema of lower extremity Status: Chronic Current Visit: Yes Code(s): R60.0 - Localized edema (3) DM type 2 (diabetes mellitus, type 2) Status: Chronic Current Visit: Yes Code(s): E11.9 - Type 2 diabetes mellitus without complications (4) Essential hypertension Status: Chronic Current Visit: Yes Code(s): I10 - Essential (primary) hypertension (5) Hypothyroidism Status: Chronic Current Visit: Yes Code(s): E03.9 - Hypothyroidism, unspecified (6) Venous insufficiency Status: Chronic Current Visit: Yes (7) Peripheral vascular disease Status: Suspected Current Visit: Yes Code(s): I73.9 - Peripheral vascular disease, unspecified Type of Wound Date of Service: 05/23/18 Chief Complaint: B/L lower extrtemity edema History of Wound: This is a 72-year-old white male who presents to the wound healing center today for evaluation of bilateral lower extremity edema. He has a past medical history which is significant for that of hypertension hyperlipidemia, GERD, type 2 diabetes mellitus, CHF, and lower extremity edema. The patient states that his lower extremity edema has been worsened over the past couple weeks. He states that his swelling is dependent and usually improves when he raises his feet, however he has not been able to do so lately due to chronic low back pain d/t spinal stenosis that prevents him from laying in bed at night as well. He denies any active wounds at this time. An echocardiogram was done in 2016 which demonstrated an ejection fraction of 60% with mild to moderate tricuspid insufficiency and RVSP 34 mmHg. He does deny any orthopnea or dyspnea on exertion at this time as well. He otherwise denies any fever, chills, nausea, vomiting, shortness of breath, chest pain or pressure , syncope or presyncopal episodes. Progress of Wound: Pt does note his swelling is about the same, however, the redness has decreased, he does note a new skin tear the occurred to the right lower extremity and is unsure how it occurred. Denies any signs of systemic infection at this time and denies any increase in pain of the legs. Per pt, he did go to the ED previously for CP and work up was negative, currently denies any CP - Physical Exam Vital Signs Temp Pulse Resp BP 97.5 F L 62 18 153/78 H 05/23/18 15:51 05/23/18 15:51 05/23/18 15:51 05/23/18 15:51 General: Alert, Oriented x3, Cooperative, No apparent distress HEENT: Atraumatic Lungs: Clear to auscultation Cardiovascular: Regular rate Extremities: Edema - BLLE edema 2+ with slight rubor present, nontender to touch Skin: Skin Tear - small skin tear present RLE without signs of infection, some adherant slough, no pus or drainage Neurological: Neuro grossly intact Psych/Mental Status: Normal Affect, Appropriate, Alert and oriented to time, place, person, mood and affect Debridement Note Post-Debridement Measurements/Treatment WC - Nurse 2 - General Ulcer CM Notes Start: 05/23/18 15:47 Freq: Status: Active Protocol: Activity Type Activity Date Activity User E-Sign Co-Sign Detail Recorded Client Recorded Date Recorded By Document 05/23/18 16:14 [id number] 05/23/18 16:16 05/23/18 16:14 Wound Center Nurse 2 #1 right lateral lower leg -Time 16:14 -Correct Patient Yes -Correct Side, Site, Position Yes -Correct Procedure Yes -Procedure Performed Yes -Type of Procedure Debridement -Clinical Debridement Subcutaneous -Post Debridement Size (cm) - Length 1.2 -Post Debridement Size (cm) - Width 0.7 -Post Debridement Size (cm) - Depth 0.1 -Total Square Cm 0.84 -Wound/Ulcer Outcome Not Healed -Ulcer Cleansing Rinsed/ Irrigated with Saline -Foul Odor after Cleansing No -Bioengineered Tissue No -Topical Lidocaine (%) 4 -Bleeding Controlled with Pressure -Treatment Response Procedure Tolerated Well Pain Scale: 0-10 Numeric Is Patient Pain Free? Yes Wound debrided: RLE skin tear ulcer Laterality: Right Type of Debridement: Excisional debridement Anesthesia Used: 5% Lidocaine Gel Depth: Down to and including healthy tissue, in the subcutaneous layer Percentage of wound debrided: 100 Instrument Used: 5mm curette Tissue Removed: slough and devitalized tissue Severity: Fat Layer Exposed Amount of bleeding with debridement: Mild Bleeding Controlled with: Pressure Patient tolerated procedure well Assessment/Plan Active Problems Skin tear of right lower leg without complication (Acute) Hypothyroidism (Chronic) DM type 2 (diabetes mellitus, type 2) (Chronic) Essential hypertension (Chronic) Bilateral edema of lower extremity (Chronic) Venous insufficiency (Chronic) Assessment: see above diagnoses Plan: The patient was seen and examined at the wound center today and was updated on the plan of care. Subq debridement was performed today on RLE skin tear as documented above.The patient will use adaptic on reddened excoriated areas on RLE and aquacell to the ulcer. Baseline bloodwork ordered and BNP and pending. Vascular studies pending.Double tubigrips for compression. 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 Patient educated on the importance of diet on wound healing and instructed to increase protein and vitamin C intake. Patient verbalized understanding. Patient will follow up at wound healing center in one week or sooner if needed. This note was generated with [employer] dictation software. It may contain incorrect words, spelling, and punctuation that were not noted in checking the note before signing. Code Visit 111xxx-113xx: [id number] Shanna subq tissue 20 sq cm/<
[2018-05-30 15:30] VITALS: BP 161/87; PULSE 60; RESP 16; TEMP 36.2
--- NOTE | 2018-06-01 18:42 | LEAS_ITS ---
Arterial Study - Arterial Study Arterial Study: This is a 72-year-old male with a history of hyperlipidemia, congestive heart failure, diabetes mellitus, hypertension, and peripheral arterial occlusive disease. The patient presents with diminished pulses in the lower extremities. With a history of, and a suspicion of, peripheral arterial occlusive disease, the patient was brought to the noninvasive vascular laboratory at this time for the purpose of bilateral noninvasive lower extremity arterial assessment. Doppler signal assessment was used to evaluate the pulses at ankle level bilaterally. The posterior tibial and dorsalis pedis pulses were triphasic bilaterally. Segmental limb pressures were obtained bilaterally. Ankle pressures, as determined by posterior tibial and dorsalis pedis pulses, could not be determined on either side due to the noncompressibility of the vasculature. The right digital pressure was measured at 189 mmHg. The left digital pressure was measured at 187 mmHg. Pulse-volume recordings were obtained bilaterally and segmentally. Waveform amplitudes appeared to be satisfactory at low thigh, calf, and ankle levels bilaterally. At digital level, the waveform appeared to be satisfactory on the right, and diminished on the left. Resting ankle-brachial indices could not be calculated on either side due to the noncompressibility of the vasculature. Digital-brachial indices were calculated bilaterally. The right digital- brachial index was calculated to be 1.05. The left digital-brachial index was calculated to be 1.04. Impression: Based upon the findings of this resting noninvasive lower extremity arterial study, arterial perfusion to ankle level appears to be relatively normal bilaterally. Triphasic waveforms were noted at ankle level bilaterally. However, ankle pressures could not be obtained on either side, due to the noncompressibility of the vasculature, likely due to arterial calcification. As a result, resting ankle-brachial indices could not be calculated on either side. Digital-brachial indices are bilaterally normal, suggesting relatively normal arterial perfusion at digital level bilaterally. Clinical correlation is advised.
[2018-06-03 13:10] VITALS: BP 185/85; PULSE 61; RESP 16; TEMP 36
--- NOTE | 2018-06-03 20:03 | PCM.WC.PN ---
(1) Skin tear of right lower leg without complication Status: Acute Current Visit: Yes Code(s): S81.811A - Laceration without foreign body, right lower leg, initial encounter (2) Bilateral edema of lower extremity Status: Chronic Current Visit: Yes Code(s): R60.0 - Localized edema (3) DM type 2 (diabetes mellitus, type 2) Status: Chronic Current Visit: Yes Code(s): E11.9 - Type 2 diabetes mellitus without complications (4) Essential hypertension Status: Chronic Current Visit: Yes Code(s): I10 - Essential (primary) hypertension (5) Hypothyroidism Status: Chronic Current Visit: Yes Code(s): E03.9 - Hypothyroidism, unspecified (6) Venous insufficiency Status: Chronic Current Visit: Yes (7) Peripheral vascular disease Status: Suspected Current Visit: Yes Code(s): I73.9 - Peripheral vascular disease, unspecified Type of Wound Date of Service: 05/30/18 Chief Complaint: B/L lower extrtemity edema History of Wound: This is a 72-year-old white male who presents to the wound healing center today for evaluation of bilateral lower extremity edema. He has a past medical history which is significant for that of hypertension hyperlipidemia, GERD, type 2 diabetes mellitus, CHF, and lower extremity edema. The patient states that his lower extremity edema has been worsened over the past couple weeks. He states that his swelling is dependent and usually improves when he raises his feet, however he has not been able to do so lately due to chronic low back pain d/t spinal stenosis that prevents him from laying in bed at night as well. He denies any active wounds at this time. An echocardiogram was done in 2016 which demonstrated an ejection fraction of 60% with mild to moderate tricuspid insufficiency and RVSP 34 mmHg. He does deny any orthopnea or dyspnea on exertion at this time as well. He otherwise denies any fever, chills, nausea, vomiting, shortness of breath, chest pain or pressure, syncope or presyncopal episodes. Progress of Wound: Pt does note his swelling is about the same, bilateral legs are now more erythematous consistent with cellulitis. Skin tear appears to be improving. Denies any signs of systemic infection at this time and denies any increase in pain of the legs. - Physical Exam Vital Signs Temp Pulse Resp BP 96.8 F L 61 16 185/85 H 06/03/18 13:10 06/03/18 13:10 06/03/18 13:10 06/03/18 13:10 General: Alert, Oriented x3, Cooperative, No apparent distress HEENT: Atraumatic Cardiovascular: Regular rate Extremities: Edema - BLLE edema 2-3+ with surrounding erythema consisten with cellulitis, neg homans sign Skin: Ulcer/ Wound - RLE skin tear ulcer with adherant slough present Neurological: Cranial nerves II-XII grossly intact, Neuro grossly intact Psych/Mental Status: Normal Affect, Appropriate, Alert and oriented to time, place, person, mood and affect Debridement Note Post-Debridement Measurements/Treatment WC - Nurse 2 - General Ulcer CM Notes Start: 05/23/18 15:47 Freq: Status: Active Protocol: Activity Type Activity Date Activity User E-Sign Co-Sign Detail Recorded Client Recorded Date Recorded By Document 05/23/18 16:14 [id number] 05/23/18 16:16 TM Document 05/30/18 16:31 [id number] 05/30/18 16:32 TM 05/23/18 05/30/18 16:14 16:31 Wound Center Nurse 2 #1 right lateral lower leg -Time 16:14 16:31 -Correct Patient Yes Yes -Correct Side, Site, Position Yes Yes -Correct Procedure Yes Yes -Procedure Performed Yes Yes -Type of Procedure Debridement Debridement -Clinical Debridement Subcutaneous Subcutaneous -Post Debridement Size (cm) - Length 1.2 1.0 -Post Debridement Size (cm) - Width 0.7 0.5 -Post Debridement Size (cm) - Depth 0.1 0.1 -Total Square Cm 0.84 0.50 -Wound/Ulcer Outcome Not Healed Not Healed -Ulcer Cleansing Rinsed/ Rinsed/ Irrigated with Irrigated with Saline Saline -Foul Odor after Cleansing No No -Bioengineered Tissue No No -Topical Lidocaine (%) 4 5 -Bleeding Controlled with Pressure Pressure -Treatment Response Procedure Procedure Tolerated Well Tolerated Well Pain Scale: 0-10 Numeric Is Patient Pain Free? Yes Yes Wound debrided: RLE skin tear ulcer Laterality: Right Type of Debridement: Excisional debridement Anesthesia Used: 5% Lidocaine Gel Depth: in the subcutaneous layer Percentage of wound debrided: 100 Instrument Used: 5mm curette Tissue Removed: slough and devitalized tissue Severity: Fat Layer Exposed Amount of bleeding with debridement: Mild Bleeding Controlled with: Pressure Patient tolerated procedure well Assessment/Plan Active Problems Skin tear of right lower leg without complication (Acute) Hypothyroidism (Chronic) DM type 2 (diabetes mellitus, type 2) (Chronic) Essential hypertension (Chronic) Bilateral edema of lower extremity (Chronic) Venous insufficiency (Chronic) Assessment: see above diagnoses Plan: The patient was seen and examined at the wound center today and was updated on the plan of care. Subq debridement was performed today on RLE skin tear as documented above.The patient will be placed in B/L unna boots as he has tolerated this in the past. D/t cellulitis, patient will be placed on doxy and keflex and probiotic. Baseline bloodwork reviewed with pt. Vascular studies demonstrated no venous insufficiency and noninvasive lower extremity arterial study, arterial perfusion to ankle level appears to be relatively normal bilaterally. Triphasic waveforms were noted at ankle level bilaterally. However, ankle pressures could not be obtained on either side, due to the noncompressibility of the vasculature, likely due to arterial calcification. As a result, resting ankle-brachial indices could not be calculated on either side. Digital-brachial indices are bilaterally normal, suggesting relatively normal arterial perfusion at digital level bilaterally. Do suspect that the edema is multifactorial. Patient educated on the importance of diet on wound healing and instructed to increase protein and vitamin C intake. Patient verbalized understanding. Patient will follow up at wound healing center in one week or sooner if needed. This note was generated with [employer] software. It may contain incorrect words, spelling, and punctuation that were not noted in checking the note before signing. Code Visit 111xxx-113xx: [id number] Shanna subq tissue 20 sq cm/<
--- NOTE | 2018-06-04 11:11 | PN.PCM_ITS ---
(1) Skin tear of right lower leg without complication Status: Acute Current Visit: Yes Code(s): S81.811A - Laceration without foreign body, right lower leg, initial encounter (2) Bilateral edema of lower extremity Status: Chronic Current Visit: Yes Code(s): R60.0 - Localized edema (3) DM type 2 (diabetes mellitus, type 2) Status: Chronic Current Visit: Yes Code(s): E11.9 - Type 2 diabetes mellitus without complications (4) Essential hypertension Status: Chronic Current Visit: Yes Code(s): I10 - Essential (primary) hypertension (5) Hypothyroidism Status: Chronic Current Visit: Yes Code(s): E03.9 - Hypothyroidism, unspecified (6) Venous insufficiency Status: Chronic Current Visit: Yes (7) Peripheral vascular disease Status: Suspected Current Visit: Yes Code(s): I73.9 - Peripheral vascular disease, unspecified Type of Wound Date of Service: 05/30/18 Chief Complaint: B/L lower extrtemity edema History of Wound: This is a 72-year-old white male who presents to the wound healing center today for evaluation of bilateral lower extremity edema. He has a past medical history which is significant for that of hypertension hyperlipidemia, GERD, type 2 diabetes mellitus, CHF, and lower extremity edema. The patient states that his lower extremity edema has been worsened over the past couple weeks. He states that his swelling is dependent and usually improves when he raises his feet, however he has not been able to do so lately due to chronic low back pain d/t spinal stenosis that prevents him from laying in bed at night as well. He denies any active wounds at this time. An echocardiogram was done in 2016 which demonstrated an ejection fraction of 60% with mild to moderate tricuspid insufficiency and RVSP 34 mmHg. He does deny any orthopnea or dyspnea on exertion at this time as well. He otherwise denies any fever, chills, nausea, vomiting, shortness of breath, chest pain or pressure , syncope or presyncopal episodes. Progress of Wound: Pt does note his swelling is about the same, bilateral legs are now more erythematous consistent with cellulitis. Skin tear appears to be improving. Denies any signs of systemic infection at this time and denies any increase in pain of the legs. - Physical Exam Vital Signs Temp Pulse Resp BP 96.8 F L 61 16 185/85 H 06/03/18 13:10 06/03/18 13:10 06/03/18 13:10 06/03/18 13:10 General: Alert, Oriented x3, Cooperative, No apparent distress HEENT: Atraumatic Cardiovascular: Regular rate Extremities: Edema - BLLE edema 2-3+ with surrounding erythema consisten with cellulitis, neg homans sign Skin: Ulcer/ Wound - RLE skin tear ulcer with adherant slough present Neurological: Cranial nerves II-XII grossly intact, Neuro grossly intact Psych/Mental Status: Normal Affect, Appropriate, Alert and oriented to time, place, person, mood and affect Debridement Note Post-Debridement Measurements/Treatment WC - Nurse 2 - General Ulcer CM Notes Start: 05/23/18 15:47 Freq: Status: Active Protocol: Activity Type Activity Date Activity User E-Sign Co-Sign Detail Recorded Client Recorded Date Recorded By Document 05/23/18 16:14 [id number] 05/23/18 16:16 TM Document 05/30/18 16:31 [id number] 05/30/18 16:32 TM 05/23/18 05/30/18 16:14 16:31 Wound Center Nurse 2 #1 right lateral lower leg -Time 16:14 16:31 -Correct Patient Yes Yes -Correct Side, Site, Position Yes Yes -Correct Procedure Yes Yes -Procedure Performed Yes Yes -Type of Procedure Debridement Debridement -Clinical Debridement Subcutaneous Subcutaneous -Post Debridement Size (cm) - Length 1.2 1.0 -Post Debridement Size (cm) - Width 0.7 0.5 -Post Debridement Size (cm) - Depth 0.1 0.1 -Total Square Cm 0.84 0.50 -Wound/Ulcer Outcome Not Healed Not Healed -Ulcer Cleansing Rinsed/ Rinsed/ Irrigated with Irrigated with Saline Saline -Foul Odor after Cleansing No No -Bioengineered Tissue No No -Topical Lidocaine (%) 4 5 -Bleeding Controlled with Pressure Pressure -Treatment Response Procedure Procedure Tolerated Well Tolerated Well Pain Scale: 0-10 Numeric Is Patient Pain Free? Yes Yes Wound debrided: RLE skin tear ulcer Laterality: Right Type of Debridement: Excisional debridement Anesthesia Used: 5% Lidocaine Gel Depth: in the subcutaneous layer Percentage of wound debrided: 100 Instrument Used: 5mm curette Tissue Removed: slough and devitalized tissue Severity: Fat Layer Exposed Amount of bleeding with debridement: Mild Bleeding Controlled with: Pressure Patient tolerated procedure well Assessment/Plan Active Problems Skin tear of right lower leg without complication (Acute) Hypothyroidism (Chronic) DM type 2 (diabetes mellitus, type 2) (Chronic) Essential hypertension (Chronic) Bilateral edema of lower extremity (Chronic) Venous insufficiency (Chronic) Assessment: see above diagnoses Plan: The patient was seen and examined at the wound center today and was updated on the plan of care. Subq debridement was performed today on RLE skin tear as documented above.The patient will be placed in B/L unna boots as he has tolerated this in the past. D/t cellulitis, patient will be placed on doxy and keflex and probiotic. Baseline bloodwork reviewed with pt. Vascular studies demonstrated no venous insufficiency and noninvasive lower extremity arterial study, arterial perfusion to ankle level appears to be relatively normal bilaterally. Triphasic waveforms were noted at ankle level bilaterally. However, ankle pressures could not be obtained on either side, due to the noncompressibility of the vasculature, likely due to arterial calcification. As a result, resting ankle-brachial indices could not be calculated on either side. Digital-brachial indices are bilaterally normal, suggesting relatively normal arterial perfusion at digital level bilaterally. Do suspect that the edema is multifactorial. Patient educated on the importance of diet on wound healing and instructed to increase protein and vitamin C intake. Patient verbalized understanding. Patient will follow up at wound healing center in one week or sooner if needed. This note was generated with [employer] software. It may contain incorrect words, spelling, and punctuation that were not noted in checking the note before signing. Code Visit [id number]: [id number] Shanna subq tissue 20 sq cm/<
[2018-06-06 14:20] VITALS: BP 175/117; PULSE 64; RESP 16; TEMP 36.5
--- NOTE | 2018-06-06 17:13 | PCM.WC.PN ---
(1) Chronic acquired lymphedema Status: Acute Current Visit: Yes Code(s): I89.0 - Lymphedema, not elsewhere classified (2) Skin tear of right lower leg without complication Status: Acute Current Visit: Yes Code(s): S81.811A - Laceration without foreign body, right lower leg, initial encounter (3) Bilateral edema of lower extremity Status: Chronic Current Visit: Yes Code(s): R60.0 - Localized edema (4) DM type 2 (diabetes mellitus, type 2) Status: Chronic Current Visit: Yes Code(s): E11.9 - Type 2 diabetes mellitus without complications (5) Essential hypertension Status: Chronic Current Visit: Yes Code(s): I10 - Essential (primary) hypertension (6) Hypothyroidism Status: Chronic Current Visit: Yes Code(s): E03.9 - Hypothyroidism, unspecified (7) Venous insufficiency Status: Chronic Current Visit: Yes (8) Peripheral vascular disease Status: Suspected Current Visit: Yes Code(s): I73.9 - Peripheral vascular disease, unspecified (9) Cellulitis Status: Acute Current Visit: Yes Code(s): L03.90 - Cellulitis, unspecified Type of Wound Date of Service: 06/06/18 Chief Complaint: B/L lower extrtemity edema History of Wound: This is a 72-year-old white male who presents to the wound healing center today for evaluation of bilateral lower extremity edema. He has a past medical history which is significant for that of hypertension hyperlipidemia, GERD, type 2 diabetes mellitus, CHF, and lower extremity edema. The patient states that his lower extremity edema has been worsened over the past couple weeks. He states that his swelling is dependent and usually improves when he raises his feet, however he has not been able to do so lately due to chronic low back pain d/t spinal stenosis that prevents him from laying in bed at night as well. He denies any active wounds at this time. An echocardiogram was done in 2016 which demonstrated an ejection fraction of 60% with mild to moderate tricuspid insufficiency and RVSP 34 mmHg. He does deny any orthopnea or dyspnea on exertion at this time as well. He otherwise denies any fever, chills, nausea, vomiting, shortness of breath, chest pain or pressure, syncope or presyncopal episodes. Progress of Wound: Pt does note his swelling and redness has improved with the use of the Unna boots, he is tolerating his antibiotics appropriately for his cellulitis and has 3 more days left. He does note that the skin tear ulcer is now healed on his right lower extremity. Denies any signs of systemic infection at this time and denies any increase in pain of the legs. - Physical Exam Vital Signs Temp Pulse Resp BP 97.7 F L 64 16 175/117 H 06/06/18 14:20 06/06/18 14:20 06/06/18 14:20 06/06/18 14:20 General: Alert, Oriented x3, Cooperative, No apparent distress HEENT: Atraumatic Cardiovascular: Regular rate Extremities: Edema - +1 pedal edema, generalized lower extremity edema, bilateral lower extremities slightly erythematous, though improved from last week Skin: No rashes, No breakdown Wound Measurements and Assessment WC - Nurse 1 - General Ulcer Measurement Start: 05/23/18 15:47 Freq: Status: Active Protocol: Activity Type Activity Date Activity User E-Sign Co-Sign Detail Recorded Client Recorded Date Recorded By Document 06/06/18 14:20 DL [id number] 06/06/18 14:28 DL 06/06/18 14:20 Wound Center Nurse 1 [Ulcer Assessment] #1 right lateral lower leg -Combined with other wound No -Current Size (cm) - Length 0 -Current Size (cm) - Width 0 -Current Size (cm) - Depth 0 -Total Square Cm 0 -Date of Last Picture (Recall this 06/06/18 field) -Photo Taken Yes -Epithelialization Large 67-100% [Edema Assessment] -Lower Limb Edema Present Yes -Right Calf (cm) 37 -Right Ankle (cm) 24 -Left Calf (cm) 35.6 -Left Ankle (cm) 23 WC - Nurse 2 - General Ulcer CM Notes Start: 05/23/18 15:47 Freq: Status: Active Protocol: Activity Type Activity Date Activity User E-Sign Co-Sign Detail Recorded Client Recorded Date Recorded By Document 06/06/18 15:02 TM [id number] 06/06/18 15:03 TM 06/06/18 15:02 Wound Center Nurse 2 [Procedure/Treatment] #1 right lateral lower leg -Time 15:02 -Correct Patient Yes -Correct Side, Site, Position Yes -Correct Procedure Yes -Procedure Performed Yes -Post Debridement Size (cm) - Length 0 -Post Debridement Size (cm) - Width 0 -Post Debridement Size (cm) - Depth 0 -Total Square Cm 0 -Wound/Ulcer Outcome Healed- Epithelialized -Ulcer Cleansing Rinsed/ Irrigated with Saline -Foul Odor after Cleansing No -Bioengineered Tissue No -Topical Lidocaine (%) 4 -Bleeding Controlled with NA -Treatment Response Procedure Tolerated Well [See Physician Procedure note for Specifics] Pain Scale: 0-10 Numeric [Pain] -Is Patient Pain Free? Yes Neurological: Cranial nerves II-XII grossly intact, Neuro grossly intact Psych/Mental Status: Normal Affect, Appropriate, Alert and oriented to time, place, person, mood and affect Debridement Note Post-Debridement Measurements/Treatment WC - Nurse 2 - General Ulcer CM Notes Start: 05/23/18 15:47 Freq: Status: Active Protocol: Activity Type Activity Date Activity User E-Sign Co-Sign Detail Recorded Client Recorded Date Recorded By Document 05/23/18 16:14 TM [id number] 05/23/18 16:16 TM Document 05/30/18 16:31 TM [id number] 05/30/18 16:32 TM Document 06/06/18 15:02 TM [id number] 06/06/18 15:03 TM 05/23/18 05/30/18 06/06/18 16:14 16:31 15:02 Wound Center Nurse 2 #1 right lateral lower leg -Time 16:14 16:31 15:02 -Correct Patient Yes Yes Yes -Correct Side, Site, Position Yes Yes Yes -Correct Procedure Yes Yes Yes -Procedure Performed Yes Yes Yes -Type of Procedure Debridement Debridement -Clinical Debridement Subcutaneous Subcutaneous -Post Debridement Size (cm) - Length 1.2 1.0 0 -Post Debridement Size (cm) - Width 0.7 0.5 0 -Post Debridement Size (cm) - Depth 0.1 0.1 0 -Total Square Cm 0.84 0.50 0 -Wound/Ulcer Outcome Not Healed Not Healed Healed- Epithelialized -Ulcer Cleansing Rinsed/ Rinsed/ Rinsed/ Irrigated with Irrigated with Irrigated with Saline Saline Saline -Foul Odor after Cleansing No No No -Bioengineered Tissue No No No -Topical Lidocaine (%) 4 5 4 -Bleeding Controlled with Pressure Pressure NA -Treatment Response Procedure Procedure Procedure Tolerated Well Tolerated Well Tolerated Well Pain Scale: 0-10 Numeric Is Patient Pain Free? Yes Yes Yes No debridement was completed today Assessment/Plan Active Problems Skin tear of right lower leg without complication (Acute) Chronic acquired lymphedema (Acute) Cellulitis (Acute) Hypothyroidism (Chronic) DM type 2 (diabetes mellitus, type 2) (Chronic) Essential hypertension (Chronic) Bilateral edema of lower extremity (Chronic) Venous insufficiency (Chronic) Assessment: see above diagnoses Plan: The patient was seen and examined at the wound center today and was updated on the plan of care. The patient's right lower extremity skin tear ulcer is now healed. The patient will be placed in B/L unna boots as he has done well with this. For cellulitis the patient is tolerating the current course of doxy and keflex and probiotic. Baseline bloodwork reviewed with pt. Vascular studies demonstrated no venous insufficiency and noninvasive lower extremity arterial study, arterial perfusion to ankle level appears to be relatively normal bilaterally. Triphasic waveforms were noted at ankle level bilaterally. However, ankle pressures could not be obtained on either side, due to the noncompressibility of the vasculature, likely due to arterial calcification. As a result, resting ankle-brachial indices could not be calculated on either side. Digital-brachial indices are bilaterally normal, suggesting relatively normal arterial perfusion at digital level bilaterally. Do suspect that the edema is multifactorial. Patient educated on the importance of diet on wound healing and instructed to increase protein and vitamin C intake. Patient verbalized understanding. Patient will follow up at wound healing center in one week or sooner if needed. Due to the patient's chronic lymphedema as this is been going on for over 3 years, will refer him to the lymphedema clinic and start the order for circaids and/or lymphedema pumps. This note was generated with [employer] dictation software. It may contain incorrect words, spelling, and punctuation that were not noted in checking the note before signing. Code Visit Office Visits / Consults: [id number] OV L3 Est
--- NOTE | 2018-06-06 17:21 | PN.PCM_ITS ---
(1) Chronic acquired lymphedema Status: Acute Current Visit: Yes Code(s): I89.0 - Lymphedema, not elsewhere classified (2) Skin tear of right lower leg without complication Status: Acute Current Visit: Yes Code(s): S81.811A - Laceration without foreign body, right lower leg, initial encounter (3) Bilateral edema of lower extremity Status: Chronic Current Visit: Yes Code(s): R60.0 - Localized edema (4) DM type 2 (diabetes mellitus, type 2) Status: Chronic Current Visit: Yes Code(s): E11.9 - Type 2 diabetes mellitus without complications (5) Essential hypertension Status: Chronic Current Visit: Yes Code(s): I10 - Essential (primary) hypertension (6) Hypothyroidism Status: Chronic Current Visit: Yes Code(s): E03.9 - Hypothyroidism, unspecified (7) Venous insufficiency Status: Chronic Current Visit: Yes (8) Peripheral vascular disease Status: Suspected Current Visit: Yes Code(s): I73.9 - Peripheral vascular disease, unspecified (9) Cellulitis Status: Acute Current Visit: Yes Code(s): L03.90 - Cellulitis, unspecified Type of Wound Date of Service: 06/06/18 Chief Complaint: B/L lower extrtemity edema History of Wound: This is a 72-year-old white male who presents to the wound healing center today for evaluation of bilateral lower extremity edema. He has a past medical history which is significant for that of hypertension hyperlipidemia, GERD, type 2 diabetes mellitus, CHF, and lower extremity edema. The patient states that his lower extremity edema has been worsened over the past couple weeks. He states that his swelling is dependent and usually improves when he raises his feet, however he has not been able to do so lately due to chronic low back pain d/t spinal stenosis that prevents him from laying in bed at night as well. He denies any active wounds at this time. An echocardiogram was done in 2016 which demonstrated an ejection fraction of 60% with mild to moderate tricuspid insufficiency and RVSP 34 mmHg. He does deny any orthopnea or dyspnea on exertion at this time as well. He otherwise denies any fever, chills, nausea, vomiting, shortness of breath, chest pain or pressure , syncope or presyncopal episodes. Progress of Wound: Pt does note his swelling and redness has improved with the use of the Unna boots, he is tolerating his antibiotics appropriately for his cellulitis and has 3 more days left. He does note that the skin tear ulcer is now healed on his right lower extremity. Denies any signs of systemic infection at this time and denies any increase in pain of the legs. - Physical Exam Vital Signs Temp Pulse Resp BP 97.7 F L 64 16 175/117 H 06/06/18 14:20 06/06/18 14:20 06/06/18 14:20 06/06/18 14:20 General: Alert, Oriented x3, Cooperative, No apparent distress HEENT: Atraumatic Cardiovascular: Regular rate Extremities: Edema - +1 pedal edema, generalized lower extremity edema, bilateral lower extremities slightly erythematous, though improved from last week Skin: No rashes, No breakdown Wound Measurements and Assessment WC - Nurse 1 - General Ulcer Measurement Start: 05/23/18 15:47 Freq: Status: Active Protocol: Activity Type Activity Date Activity User E-Sign Co-Sign Detail Recorded Client Recorded Date Recorded By Document 06/06/18 14:20 DL [id number] 06/06/18 14:28 DL 06/06/18 14:20 Wound Center Nurse 1 [Ulcer Assessment] #1 right lateral lower leg -Combined with other wound No -Current Size (cm) - Length 0 -Current Size (cm) - Width 0 -Current Size (cm) - Depth 0 -Total Square Cm 0 -Date of Last Picture (Recall this 06/06/18 field) -Photo Taken Yes -Epithelialization Large 67-100% [Edema Assessment] -Lower Limb Edema Present Yes -Right Calf (cm) 37 -Right Ankle (cm) 24 -Left Calf (cm) 35.6 -Left Ankle (cm) 23 WC - Nurse 2 - General Ulcer CM Notes Start: 05/23/18 15:47 Freq: Status: Active Protocol: Activity Type Activity Date Activity User E-Sign Co-Sign Detail Recorded Client Recorded Date Recorded By Document 06/06/18 15:02 TM [id number] 06/06/18 15:03 TM 06/06/18 15:02 Wound Center Nurse 2 [Procedure/Treatment] #1 right lateral lower leg -Time 15:02 -Correct Patient Yes -Correct Side, Site, Position Yes -Correct Procedure Yes -Procedure Performed Yes -Post Debridement Size (cm) - Length 0 -Post Debridement Size (cm) - Width 0 -Post Debridement Size (cm) - Depth 0 -Total Square Cm 0 -Wound/Ulcer Outcome Healed- Epithelialized -Ulcer Cleansing Rinsed/ Irrigated with Saline -Foul Odor after Cleansing No -Bioengineered Tissue No -Topical Lidocaine (%) 4 -Bleeding Controlled with NA -Treatment Response Procedure Tolerated Well [See Physician Procedure note for Specifics] Pain Scale: 0-10 Numeric [Pain] -Is Patient Pain Free? Yes Neurological: Cranial nerves II-XII grossly intact, Neuro grossly intact Psych/Mental Status: Normal Affect, Appropriate, Alert and oriented to time, place, person, mood and affect Debridement Note Post-Debridement Measurements/Treatment WC - Nurse 2 - General Ulcer CM Notes Start: 05/23/18 15:47 Freq: Status: Active Protocol: Activity Type Activity Date Activity User E-Sign Co-Sign Detail Recorded Client Recorded Date Recorded By Document 05/23/18 16:14 TM [id number] 05/23/18 16:16 TM Document 05/30/18 16:31 TM [id number] 05/30/18 16:32 TM Document 06/06/18 15:02 TM [id number] 06/06/18 15:03 TM 05/23/18 05/30/18 06/06/18 16:14 16:31 15:02 Wound Center Nurse 2 #1 right lateral lower leg -Time 16:14 16:31 15:02 -Correct Patient Yes Yes Yes -Correct Side, Site, Position Yes Yes Yes -Correct Procedure Yes Yes Yes -Procedure Performed Yes Yes Yes -Type of Procedure Debridement Debridement -Clinical Debridement Subcutaneous Subcutaneous -Post Debridement Size (cm) - Length 1.2 1.0 0 -Post Debridement Size (cm) - Width 0.7 0.5 0 -Post Debridement Size (cm) - Depth 0.1 0.1 0 -Total Square Cm 0.84 0.50 0 -Wound/Ulcer Outcome Not Healed Not Healed Healed- Epithelialized -Ulcer Cleansing Rinsed/ Rinsed/ Rinsed/ Irrigated with Irrigated with Irrigated with Saline Saline Saline -Foul Odor after Cleansing No No No -Bioengineered Tissue No No No -Topical Lidocaine (%) 4 5 4 -Bleeding Controlled with Pressure Pressure NA -Treatment Response Procedure Procedure Procedure Tolerated Well Tolerated Well Tolerated Well Pain Scale: 0-10 Numeric Is Patient Pain Free? Yes Yes Yes No debridement was completed today Assessment/Plan Active Problems Skin tear of right lower leg without complication (Acute) Chronic acquired lymphedema (Acute) Cellulitis (Acute) Hypothyroidism (Chronic) DM type 2 (diabetes mellitus, type 2) (Chronic) Essential hypertension (Chronic) Bilateral edema of lower extremity (Chronic) Venous insufficiency (Chronic) Assessment: see above diagnoses Plan: The patient was seen and examined at the wound center today and was updated on the plan of care. The patient's right lower extremity skin tear ulcer is now healed. The patient will be placed in B/L unna boots as he has done well with this. For cellulitis the patient is tolerating the current course of doxy and keflex and probiotic. Baseline bloodwork reviewed with pt. Vascular studies demonstrated no venous insufficiency and noninvasive lower extremity arterial study, arterial perfusion to ankle level appears to be relatively normal bilaterally. Triphasic waveforms were noted at ankle level bilaterally. However, ankle pressures could not be obtained on either side, due to the noncompressibility of the vasculature, likely due to arterial calcification. As a result, resting ankle-brachial indices could not be calculated on either side. Digital-brachial indices are bilaterally normal, suggesting relatively normal arterial perfusion at digital level bilaterally. Do suspect that the edema is multifactorial. Patient educated on the importance of diet on wound healing and instructed to increase protein and vitamin C intake. Patient verbalized understanding. Patient will follow up at wound healing center in one week or sooner if needed. Due to the patient's chronic lymphedema as this is been going on for over 3 years, will refer him to the lymphedema clinic and start the order for circaids and/or lymphedema pumps. This note was generated with [employer] dictation software. It may contain incorrect words, spelling, and punctuation that were not noted in checking the note before signing. Code Visit Office Visits / Consults: [id number] OV L3 Est
[2018-06-10 11:56] VITALS: BP 199/88; PULSE 62; RESP 20; TEMP 36.4
[2018-06-13 15:39] VITALS: BP 164/88; PULSE 78; RESP 18; TEMP 36.4
--- NOTE | 2018-06-13 20:51 | PCM.WC.PN ---
(1) Chronic acquired lymphedema Status: Acute Code(s): I89.0 - Lymphedema, not elsewhere classified (2) Skin tear of right lower leg without complication Status: Acute Code(s): S81.811A - Laceration without foreign body, right lower leg, initial encounter (3) Bilateral edema of lower extremity Status: Chronic Code(s): R60.0 - Localized edema (4) DM type 2 (diabetes mellitus, type 2) Status: Chronic Code(s): E11.9 - Type 2 diabetes mellitus without complications (5) Essential hypertension Status: Chronic Code(s): I10 - Essential (primary) hypertension (6) Hypothyroidism Status: Chronic Code(s): E03.9 - Hypothyroidism, unspecified (7) Venous insufficiency Status: Chronic (8) Peripheral vascular disease Status: Suspected Code(s): I73.9 - Peripheral vascular disease, unspecified (9) Cellulitis Status: Acute Code(s): L03.90 - Cellulitis, unspecified Type of Wound Date of Service: 06/13/18 Chief Complaint: B/L lower extrtemity edema History of Wound: This is a 72-year-old white male who presents to the wound healing center today for evaluation of bilateral lower extremity edema. He has a past medical history which is significant for that of hypertension hyperlipidemia, GERD, type 2 diabetes mellitus, CHF, and lower extremity edema. The patient states that his lower extremity edema has been worsened over the past couple weeks. He states that his swelling is dependent and usually improves when he raises his feet, however he has not been able to do so lately due to chronic low back pain d/t spinal stenosis that prevents him from laying in bed at night as well. He denies any active wounds at this time. An echocardiogram was done in 2016 which demonstrated an ejection fraction of 60% with mild to moderate tricuspid insufficiency and RVSP 34 mmHg. He does deny any orthopnea or dyspnea on exertion at this time as well. He otherwise denies any fever, chills, nausea, vomiting, shortness of breath, chest pain or pressure, syncope or presyncopal episodes. Progress of Wound: Pt does note his swelling and redness has improved with the use of the Unna boots, he completed his antibiotics appropriately for his cellulitis. He does still have chronic redness to his bilateral lower extremities, but there is no increase in pain, no erythema, or warmth on clinical exam. Denies any signs of systemic infection at this time and denies any increase in pain of the legs. - Physical Exam Vital Signs Temp Pulse Resp BP 97.6 F L 78 18 164/88 H 06/13/18 15:39 06/13/18 15:39 06/13/18 15:39 06/13/18 15:39 General: Alert, Oriented x3, Cooperative, No apparent distress HEENT: Atraumatic Lungs: Clear to auscultation, Normal air movement Cardiovascular: Regular rate, Regular Rhythm Abdomen: Obese Extremities: Edema - 1+ pedal edema that stops at the ankle, minimal generalized edema present bilateral lower extremities, chronic rubor of bilateral lower extremities with no warmth or tenderness noted Neurological: Neuro grossly intact Psych/Mental Status: Normal Affect, Appropriate, Alert and oriented to time, place, person, mood and affect Debridement Note Post-Debridement Measurements/Treatment WC - Nurse 2 - General Ulcer CM Notes Start: 05/23/18 15:47 Freq: Status: Active Protocol: Activity Type Activity Date Activity User E-Sign Co-Sign Detail Recorded Client Recorded Date Recorded By Document 05/23/18 16:14 [id number] 05/23/18 16:16 TM Document 05/30/18 16:31 [id number] 05/30/18 16:32 TM Document 06/06/18 15:02 [id number] 06/06/18 15:03 TM Document 06/13/18 16:08 [id number] 06/13/18 16:08 05/23/18 05/30/18 06/06/18 16:14 16:31 15:02 Wound Center Nurse 2 #1 right lateral lower leg -Time 16:14 16:31 15:02 -Correct Patient Yes Yes Yes -Correct Side, Site, Position Yes Yes Yes -Correct Procedure Yes Yes Yes -Procedure Performed Yes Yes Yes -Type of Procedure Debridement Debridement -Clinical Debridement Subcutaneous Subcutaneous -Post Debridement Size (cm) - Length 1.2 1.0 0 -Post Debridement Size (cm) - Width 0.7 0.5 0 -Post Debridement Size (cm) - Depth 0.1 0.1 0 -Total Square Cm 0.84 0.50 0 -Wound/Ulcer Outcome Not Healed Not Healed Healed- Epithelialized -Ulcer Cleansing Rinsed/ Rinsed/ Rinsed/ Irrigated with Irrigated with Irrigated with Saline Saline Saline -Foul Odor after Cleansing No No No -Bioengineered Tissue No No No -Topical Lidocaine (%) 4 5 4 -Bleeding Controlled with Pressure Pressure NA -Treatment Response Procedure Procedure Procedure Tolerated Well Tolerated Well Tolerated Well Pain Scale: 0-10 Numeric Is Patient Pain Free? Yes Yes Yes 06/13/18 16:08 Wound Center Nurse 2 #1 right lateral lower leg -Time -Correct Patient -Correct Side, Site, Position -Correct Procedure -Procedure Performed -Type of Procedure -Clinical Debridement -Post Debridement Size (cm) - Length -Post Debridement Size (cm) - Width -Post Debridement Size (cm) - Depth -Total Square Cm -Wound/Ulcer Outcome -Ulcer Cleansing -Foul Odor after Cleansing -Bioengineered Tissue -Topical Lidocaine (%) -Bleeding Controlled with -Treatment Response Pain Scale: 0-10 Numeric Is Patient Pain Free? Yes No debridement was completed today Assessment/Plan Assessment: see above diagnoses Plan: The patient was seen and examined at the wound center today and was updated on the plan of care. The patient will be placed in B/L 3M wraps. For cellulitis the patient is completed course of doxy and keflex and probiotic. Baseline bloodwork reviewed with pt. Vascular studies demonstrated no venous insufficiency and noninvasive lower extremity arterial study, arterial perfusion to ankle level appears to be relatively normal bilaterally. Triphasic waveforms were noted at ankle level bilaterally. However, ankle pressures could not be obtained on either side, due to the noncompressibility of the vasculature, likely due to arterial calcification. As a result, resting ankle-brachial indices could not be calculated on either side. Digital-brachial indices are bilaterally normal, suggesting relatively normal arterial perfusion at digital level bilaterally. Do suspect that the edema is multifactorial. Patient educated on the importance of diet on wound healing and instructed to increase protein and vitamin C intake. Patient verbalized understanding. Patient will follow up at wound healing center in one week or sooner if needed. Due to the patient's chronic lymphedema as this is been going on for over 3 years, will refer him to the lymphedema clinic and start the order for circaids and/or lymphedema pumps. Patient followed up at lymphedema clinic in these treatment modalities are pending at this time. This note was generated with [employer] software. It may contain incorrect words, spelling, and punctuation that were not noted in checking the note before signing. Code Visit Office Visits / Consults: [id number] OV L3 Est
--- NOTE | 2018-06-18 09:55 | PN.PCM_ITS ---
(1) Chronic acquired lymphedema Status: Acute Code(s): I89.0 - Lymphedema, not elsewhere classified (2) Skin tear of right lower leg without complication Status: Acute Code(s): S81.811A - Laceration without foreign body, right lower leg, initial encounter (3) Bilateral edema of lower extremity Status: Chronic Code(s): R60.0 - Localized edema (4) DM type 2 (diabetes mellitus, type 2) Status: Chronic Code(s): E11.9 - Type 2 diabetes mellitus without complications (5) Essential hypertension Status: Chronic Code(s): I10 - Essential (primary) hypertension (6) Hypothyroidism Status: Chronic Code(s): E03.9 - Hypothyroidism, unspecified (7) Venous insufficiency Status: Chronic (8) Peripheral vascular disease Status: Suspected Code(s): I73.9 - Peripheral vascular disease, unspecified (9) Cellulitis Status: Acute Code(s): L03.90 - Cellulitis, unspecified Type of Wound Date of Service: 06/13/18 Chief Complaint: B/L lower extrtemity edema History of Wound: This is a 72-year-old white male who presents to the wound healing center today for evaluation of bilateral lower extremity edema. He has a past medical history which is significant for that of hypertension hyperlipidemia, GERD, type 2 diabetes mellitus, CHF, and lower extremity edema. The patient states that his lower extremity edema has been worsened over the past couple weeks. He states that his swelling is dependent and usually improves when he raises his feet, however he has not been able to do so lately due to chronic low back pain d/t spinal stenosis that prevents him from laying in bed at night as well. He denies any active wounds at this time. An echocardiogram was done in 2016 which demonstrated an ejection fraction of 60% with mild to moderate tricuspid insufficiency and RVSP 34 mmHg. He does deny any orthopnea or dyspnea on exertion at this time as well. He otherwise denies any fever, chills, nausea, vomiting, shortness of breath, chest pain or pressure , syncope or presyncopal episodes. Progress of Wound: Pt does note his swelling and redness has improved with the use of the Unna boots, he completed his antibiotics appropriately for his cellulitis. He does still have chronic redness to his bilateral lower extremities, but there is no increase in pain, no erythema, or warmth on clinical exam. Denies any signs of systemic infection at this time and denies any increase in pain of the legs. - Physical Exam Vital Signs Temp Pulse Resp BP 97.6 F L 78 18 164/88 H 06/13/18 15:39 06/13/18 15:39 06/13/18 15:39 06/13/18 15:39 General: Alert, Oriented x3, Cooperative, No apparent distress HEENT: Atraumatic Lungs: Clear to auscultation, Normal air movement Cardiovascular: Regular rate, Regular Rhythm Abdomen: Obese Extremities: Edema - 1+ pedal edema that stops at the ankle, minimal generalized edema present bilateral lower extremities, chronic rubor of bilateral lower extremities with no warmth or tenderness noted Neurological: Neuro grossly intact Psych/Mental Status: Normal Affect, Appropriate, Alert and oriented to time, place, person, mood and affect Debridement Note Post-Debridement Measurements/Treatment WC - Nurse 2 - General Ulcer CM Notes Start: 05/23/18 15:47 Freq: Status: Active Protocol: Activity Type Activity Date Activity User E-Sign Co-Sign Detail Recorded Client Recorded Date Recorded By Document 05/23/18 16:14 [id number] 05/23/18 16:16 TM Document 05/30/18 16:31 [id number] 05/30/18 16:32 TM Document 06/06/18 15:02 [id number] 06/06/18 15:03 TM Document 06/13/18 16:08 [id number] 06/13/18 16:08 05/23/18 05/30/18 06/06/18 16:14 16:31 15:02 Wound Center Nurse 2 #1 right lateral lower leg -Time 16:14 16:31 15:02 -Correct Patient Yes Yes Yes -Correct Side, Site, Position Yes Yes Yes -Correct Procedure Yes Yes Yes -Procedure Performed Yes Yes Yes -Type of Procedure Debridement Debridement -Clinical Debridement Subcutaneous Subcutaneous -Post Debridement Size (cm) - Length 1.2 1.0 0 -Post Debridement Size (cm) - Width 0.7 0.5 0 -Post Debridement Size (cm) - Depth 0.1 0.1 0 -Total Square Cm 0.84 0.50 0 -Wound/Ulcer Outcome Not Healed Not Healed Healed- Epithelialized -Ulcer Cleansing Rinsed/ Rinsed/ Rinsed/ Irrigated with Irrigated with Irrigated with Saline Saline Saline -Foul Odor after Cleansing No No No -Bioengineered Tissue No No No -Topical Lidocaine (%) 4 5 4 -Bleeding Controlled with Pressure Pressure NA -Treatment Response Procedure Procedure Procedure Tolerated Well Tolerated Well Tolerated Well Pain Scale: 0-10 Numeric Is Patient Pain Free? Yes Yes Yes 06/13/18 16:08 Wound Center Nurse 2 #1 right lateral lower leg -Time -Correct Patient -Correct Side, Site, Position -Correct Procedure -Procedure Performed -Type of Procedure -Clinical Debridement -Post Debridement Size (cm) - Length -Post Debridement Size (cm) - Width -Post Debridement Size (cm) - Depth -Total Square Cm -Wound/Ulcer Outcome -Ulcer Cleansing -Foul Odor after Cleansing -Bioengineered Tissue -Topical Lidocaine (%) -Bleeding Controlled with -Treatment Response Pain Scale: 0-10 Numeric Is Patient Pain Free? Yes No debridement was completed today Assessment/Plan Assessment: see above diagnoses Plan: The patient was seen and examined at the wound center today and was updated on the plan of care. The patient will be placed in B/L 3M wraps. For cellulitis the patient is completed course of doxy and keflex and probiotic. Baseline bloodwork reviewed with pt. Vascular studies demonstrated no venous insufficiency and noninvasive lower extremity arterial study, arterial perfusion to ankle level appears to be relatively normal bilaterally. Triphasic waveforms were noted at ankle level bilaterally. However, ankle pressures could not be obtained on either side, due to the noncompressibility of the vasculature, likely due to arterial calcification. As a result, resting ankle-brachial indices could not be calculated on either side. Digital- brachial indices are bilaterally normal, suggesting relatively normal arterial perfusion at digital level bilaterally. Do suspect that the edema is multifactorial. Patient educated on the importance of diet on wound healing and instructed to increase protein and vitamin C intake. Patient verbalized understanding. Patient will follow up at wound healing center in one week or sooner if needed. Due to the patient's chronic lymphedema as this is been going on for over 3 years, will refer him to the lymphedema clinic and start the order for circaids and/or lymphedema pumps. Patient followed up at lymphedema clinic in these treatment modalities are pending at this time. This note was generated with [employer] software. It may contain incorrect words, spelling, and punctuation that were not noted in checking the note before signing. Code Visit Office Visits / Consults: [id number] OV L3 Est
== END 2018-06-18 23:59 ==
LOC: WC 15:00
PROVIDERS: Family Provider Family Medicine Geriatric Medicine; PCP Family Medicine Geriatric Medicine; Visit Provider Nurse Practitioner Family
DX: I73.9 Peripheral vascular disease, unspecified (principal); E11.9 Type 2 diabetes mellitus without complications; E03.9 Hypothyroidism, unspecified; R60.0 Localized edema; K21.9 Gastro-esophageal reflux disease without esophagitis; I11.0 Hypertensive heart disease with heart failure; I50.9 Heart failure, unspecified; E78.5 Hyperlipidemia, unspecified; S81.811A Laceration without foreign body, right lower leg, initial encounter; X58.XXXA Exposure to other specified factors, initial encounter; I87.2 Venous insufficiency (chronic) (peripheral)
CPT/HCPCS: 11042; 29580; 29581; 36415; 80048; 83880; 84443; 85025; 93923; 93970; 99212; 99213; 99214; G0463

== ENCOUNTER 2018-07-11 14:00 | Outpatient (RCR) | payer MEDICARE, SELFPAY ==
[2018-06-19 01:11] VITALS: BP 164/88; PULSE 78; RESP 18; TEMP 36.4
[2018-06-20 15:04] VITALS: BP 189/101; PULSE 64; RESP 18; TEMP 36.3
[2018-06-27 14:40] VITALS: BP 147/85; PULSE 72; RESP 18; TEMP 36.6
--- NOTE | 2018-06-27 18:12 | PCM.WC.PN ---
(1) Chronic acquired lymphedema Status: Chronic Code(s): I89.0 - Lymphedema, not elsewhere classified (2) CHF (congestive heart failure) Status: Chronic Code(s): I50.9 - Heart failure, unspecified (3) Chronic GERD Status: Chronic Code(s): K21.9 - Gastro-esophageal reflux disease without esophagitis (4) Essential hypertension Status: Chronic Code(s): I10 - Essential (primary) hypertension (5) Risk for falls Status: Chronic Code(s): Z91.81 - History of falling (6) Venous insufficiency Status: Ruled-out (7) Cellulitis Status: Resolved Code(s): L03.90 - Cellulitis, unspecified Type of Wound Date of Service: 06/27/18 Chief Complaint: B/L lower extremity edema History of Wound: This is a 72-year-old white male who presents to the wound healing center today for evaluation of bilateral lower extremity edema. He has a past medical history which is significant for that of hypertension hyperlipidemia, GERD, type 2 diabetes mellitus, CHF, and lower extremity edema. The patient states that his lower extremity edema has been worsened over the past couple weeks. He states that his swelling is dependent and usually improves when he raises his feet, however he has not been able to do so lately due to chronic low back pain d/t spinal stenosis that prevents him from laying in bed at night as well. He denies any active wounds at this time. An echocardiogram was done in 2016 which demonstrated an ejection fraction of 60% with mild to moderate tricuspid insufficiency and RVSP 34 mmHg. He does deny any orthopnea or dyspnea on exertion at this time as well. He otherwise denies any fever, chills, nausea, vomiting, shortness of breath, chest pain or pressure, syncope or presyncopal episodes. Progress of Wound: Pt does note his swelling and redness has improved with the use of the 3 m wraps. He does still have chronic dependent rubor to his bilateral lower extremities, but there is no increase in pain or warmth on clinical exam. Denies any signs of systemic infection at this time and denies any increase in pain of the legs. Has been seen by lymphedema clinic and circaids pending and lymphedema pumps are supposed to be delivered at his house tomorrow. - Physical Exam Vital Signs Temp Pulse Resp BP 97.8 F 72 18 147/85 H 08/09/18 14:40 06/27/18 14:40 06/27/18 14:40 06/27/18 14:40 General: Alert, Oriented x3, Cooperative, No apparent distress HEENT: Atraumatic Cardiovascular: Regular rate Abdomen: Obese Extremities: Edema - +1 BLLE edema, dependent rubor present on clinical exam, Peripheral Pulses Normal Musculoskeletal: No Tenderness to Palpation of Joints or Extremities Neurological: Neuro grossly intact Psych/Mental Status: Normal Affect, Appropriate, Alert and oriented to time, place, person, mood and affect Debridement Note No debridement was completed today Assessment/Plan Assessment: see above diagnoses Plan: The patient was seen and examined at the wound center today and was updated on the plan of care. The patient will be placed in B/L 3M wraps as he has done well with this. For cellulitis the patient is completed course of doxy and keflex and probiotic. Baseline bloodwork reviewed with pt. Vascular studies demonstrated no venous insufficiency and noninvasive lower extremity arterial study, arterial perfusion to ankle level appears to be relatively normal bilaterally. Triphasic waveforms were noted at ankle level bilaterally. However, ankle pressures could not be obtained on either side, due to the noncompressibility of the vasculature, likely due to arterial calcification. As a result, resting ankle-brachial indices could not be calculated on either side. Digital-brachial indices are bilaterally normal, suggesting relatively normal arterial perfusion at digital level bilaterally. Do suspect that the edema is multifactorial. Patient educated on the importance of diet on wound healing and instructed to increase protein and vitamin C intake. Patient verbalized understanding. Patient will follow up at wound healing center in one week or sooner if needed. Due to the patient's chronic lymphedema as this is been going on for over 3 years, referred him to the lymphedema clinic and start the order for circaids and/or lymphedema pumps. Patient followed up at lymphedema clinic in these treatment modalities are pending at this time. He will follow up for nurse visit in 1 week and [facility] with provider in two weeks. This note was generated with [employer] software. It may contain incorrect words, spelling, and punctuation that were not noted in checking the note before signing. Code Visit Office Visits / Consults: [id number] OV L3 Est
[2018-07-03 12:25] VITALS: BP 184/81; PULSE 61; RESP 16; TEMP 36.4
[2018-07-11 13:45] VITALS: RESP 16; TEMP 36.6
--- NOTE | 2018-07-11 16:45 | PCM.WC.PN ---
(1) Chronic acquired lymphedema Status: Chronic Current Visit: Yes Code(s): I89.0 - Lymphedema, not elsewhere classified (2) CHF (congestive heart failure) Status: Chronic Current Visit: No Code(s): I50.9 - Heart failure, unspecified (3) Chronic GERD Status: Chronic Current Visit: No Code(s): K21.9 - Gastro-esophageal reflux disease without esophagitis (4) Essential hypertension Status: Chronic Current Visit: No Code(s): I10 - Essential (primary) hypertension (5) Risk for falls Status: Chronic Current Visit: No Code(s): Z91.81 - History of falling (6) Venous insufficiency Status: Ruled-out Current Visit: No (7) Cellulitis Status: Resolved Current Visit: No Code(s): L03.90 - Cellulitis, unspecified Type of Wound Date of Service: 07/11/18 Chief Complaint: B/L lower extremity edema History of Wound: This is a 72-year-old white male who presents to the wound healing center today for evaluation of bilateral lower extremity edema. He has a past medical history which is significant for that of hypertension hyperlipidemia, GERD, type 2 diabetes mellitus, CHF, and lower extremity edema. The patient states that his lower extremity edema has been worsened over the past couple weeks. He states that his swelling is dependent and usually improves when he raises his feet, however he has not been able to do so lately due to chronic low back pain d/t spinal stenosis that prevents him from laying in bed at night as well. He denies any active wounds at this time. An echocardiogram was done in 2016 which demonstrated an ejection fraction of 60% with mild to moderate tricuspid insufficiency and RVSP 34 mmHg. He does deny any orthopnea or dyspnea on exertion at this time as well. He otherwise denies any fever, chills, nausea, vomiting, shortness of breath, chest pain or pressure, syncope or presyncopal episodes. Progress of Wound: Pt does note his swelling has improved with the use of lymphedema pumps and circaids, is only using the pumps 1 time per day for 45 min. He does still have chronic dependent rubor to his bilateral lower extremities, but there is no increase in pain or warmth on clinical exam. Denies any signs of systemic infection at this time and denies any increase in pain of the legs. Has been seen by lymphedema clinic in past and recommended continuing circaids and lymphedema pumps. - Physical Exam Vital Signs Temp Pulse Resp BP 98 F 61 16 184/81 H 07/11/18 13:45 07/03/18 12:25 07/11/18 13:45 07/03/18 12:25 General: Alert, Oriented x3, Cooperative, No apparent distress HEENT: Atraumatic Oral: Moist Mucosa Lungs: Clear to auscultation, Normal air movement Cardiovascular: Regular rate, Regular Rhythm Abdomen: Obese Extremities: No clubbing, No cyanosis, Edema - +1 pedal edema, no leg edema BLLE, Peripheral Pulses Normal Skin: - - dry skin BLLE, slight rubor BLLE no warmth Wound Measurements and Assessment WC - Nurse 1 - General Ulcer Measurement Start: 06/20/18 15:03 Freq: Status: Active Protocol: Activity Type Activity Date Activity User E-Sign Co-Sign Detail Recorded Client Recorded Date Recorded By Document 07/11/18 13:45 [facility] [id number] 07/11/18 13:55 [facility] 07/11/18 13:45 [facility] Nurse 1 [Edema Assessment] -Lower Limb Edema Present Yes -Right Calf (cm) 42.8 -Right Ankle (cm) 25.1 -Left Calf (cm) 43.7 -Left Ankle (cm) 24 - Nurse 2 - General Ulcer CM Notes Start: 06/20/18 15:03 Freq: Status: Active Protocol: Activity Type Activity Date Activity User E-Sign Co-Sign Detail Recorded Client Recorded Date Recorded By Document 07/11/18 14:22 [id number] 07/11/18 14:24 07/11/18 14:22 Pain Scale: 0-10 Numeric [Pain] -Is Patient Pain Free? Yes Neurological: Neuro grossly intact Psych/Mental Status: Normal Affect, Appropriate, Alert and oriented to time, place, person, mood and affect Debridement Note Post-Debridement Measurements/Treatment - Nurse 2 - General Ulcer CM Notes Start: 06/20/18 15:03 Freq: Status: Active Protocol: Activity Type Activity Date Activity User E-Sign Co-Sign Detail Recorded Client Recorded Date Recorded By Document 07/11/18 14:22 [id number] 07/11/18 14:24 07/11/18 14:22 Pain Scale: 0-10 Numeric Is Patient Pain Free? Yes No debridement was completed today Assessment/Plan Active Problems Chronic acquired lymphedema (Chronic) Assessment: see above diagnoses Plan: The patient was seen and examined at the wound center today and was updated on the plan of care. Vascular studies demonstrated no venous insufficiency and noninvasive lower extremity arterial study, arterial perfusion to ankle level appears to be relatively normal bilaterally. Triphasic waveforms were noted at ankle level bilaterally. However, ankle pressures could not be obtained on either side, due to the noncompressibility of the vasculature, likely due to arterial calcification. As a result, resting ankle-brachial indices could not be calculated on either side. Digital-brachial indices are bilaterally normal, suggesting relatively normal arterial perfusion at digital level bilaterally. Do suspect that the edema is multifactorial. Pt was seen by lymphedema clinic and lymphedema pumps and circaids ordered. Pts lymphedema improved with these, however only using pumps once per day. Pt instructed to use pumps 2-3 times per day and to wear circaids while not using pumps during the day. Pt verbalized understanding. All wounds are healed and pt to be discharged from [facility]. F/U PRN Code Visit Office Visits / Consults: [id number] OV L3 Est
== END 2018-07-19 23:59 ==
LOC: WC 14:00
PROVIDERS: Family Provider Family Medicine Geriatric Medicine; PCP Family Medicine Geriatric Medicine; Visit Provider Nurse Practitioner Family
DX: I73.9 Peripheral vascular disease, unspecified (principal); I11.0 Hypertensive heart disease with heart failure; I50.9 Heart failure, unspecified; K21.9 Gastro-esophageal reflux disease without esophagitis; E78.5 Hyperlipidemia, unspecified; Z91.81 History of falling; R60.0 Localized edema; L03.90 Cellulitis, unspecified
CPT/HCPCS: 29581; 99212; 99214; G0463

== ENCOUNTER → 2018-07-17 09:59 | Outpatient (CLI) | payer MEDICARE, SELFPAY ==
[2018-07-17 12:46] LABS: Thyroid Stim Hormone (TSH) 5.88 uIU/mL (0.358-3.74)
== END ==
PROVIDERS: Family Provider Family Medicine Geriatric Medicine; PCP Family Medicine Geriatric Medicine; Visit Provider Family Medicine Geriatric Medicine
DX: E03.9 Hypothyroidism, unspecified (principal)
CPT/HCPCS: 36415; 84443

== ENCOUNTER → 2018-08-01 15:23 | Outpatient (CLI) | payer MEDICARE, SELFPAY | PROVIDERS: Family Provider Family Medicine Geriatric Medicine; PCP Family Medicine Geriatric Medicine; Visit Provider Family Medicine Geriatric Medicine | DX: E03.9 Hypothyroidism, unspecified (principal) ==

== ENCOUNTER → 2018-08-15 15:32 | Outpatient (CLI) | payer MEDICARE, SELFPAY ==
[2018-08-15 17:18] LABS: Anion Gap 9 (5-15); BUN 16 mg/dL (7-18); BUN/Creat Ratio 21.3 RATIO (10-20); Calcium,Total 8.4 mg/dL (8.5-10.1); Chloride 102 mmol/L (98-107); Creatinine, Serum 0.75 mg/dL (0.70-1.30); EST Glomerular Filtration Rate 108 mL/min (>60); Est Glom Filt Rate - Afr Amer 131 mL/min (>60); Glucose 88 mg/dL (74-106); Potassium 4.6 mmol/L (3.5-5.1); Sodium Level 133 mmol/L (136-145)
--- NOTE | 2018-08-15 17:40 | CT_ITS ---
STUDY: CT ABDOMEN AND PELVIS WITHOUT CONTRAST REASON FOR EXAM: Male, 73 years old. Abdominal pain. Cholecystectomy and prior repair RADIATION DOSAGE (If Supplied By Facility): CTDIvol = ( 33.68 ) mGy, DLP = ( 1834.61 ) mGycm TECHNIQUE: Transaxial images were obtained from the dome of the diaphragm to the symphysis pubis without oral contrast, and without intravenous contrast. Sagittal and coronal images were reconstructed. Individualized dose optimization techniques were used for this CT. COMPARISON: 10/07/16 FINDINGS: The visualized lung bases are unremarkable. Cardiomegaly Normal liver. There are surgical clips in the gallbladder fossa consistent with a prior cholecystectomy. Normal spleen. Normal pancreas. Normal bilateral adrenal glands. Small bilateral nonobstructing nephrolithiasis without acute findings. Otherwise, unremarkable kidneys. There is a small hiatal hernia. Normal small intestine. There are multiple colonic diverticula consistent with diverticulosis. The appendix is visualized and appears normal. There is diffuse atherosclerotic calcification of the abdominal aorta, without a demonstrated aneurysm. Normal inferior vena cava. Normal retroperitoneum. Normal urinary bladder. There are prostatic calcifications. Normal abdominal wall. There are diffuse degenerative changes of the visualized lumbar spine. Status post right hip arthroplasty CT/Abdomen/Pelvis without Cont IMPRESSION: No acute findings. Remaining chronic findings as above. Nonobstructing bilateral nephrolithiasis, stable from prior exam. Electronically Signed: Marito Boone DO at 18:15 EDT Tel , Service support ,
[2018-08-15 18:04] LABS: Absolute Neutrophil Count 9.9 X10^3/uL (2.0-7.7); Basophil# 0.03 X10^3/uL; Basophil% 0.2 % (0-1); Eosinophils% 1.4 % (0-5); Hematocrit 45.4 % (40-54); Hemoglobin 15.2 g/dl (13.0-16.5); Lymphocyte % 20.3 % (19-41); Mean Corp Hgb Conc 33.5 g/gl (32-36); Mean Corpuscular Hgb 31.1 pg (27.0-32.0); Mean Corpuscular Volume 92.8 fL (80-94); Mean Platelet Vol. 11.2 fl (6.2-12.0); Monocyte# 1.64 X10^3/uL; Monocyte% 11.1 % (0-10); Neutrophil # 9.86 X10^3/uL (2.7-7.7); Neutrophil % 66.7 % (47-70); Platelet Count 294 K/mm3 (150-450); RBC Distribution Width CV 13.9 % (11.6-14.6); RBC Distribution Width SD 46.3 fl (35.1-43.9); Red Blood Count 4.89 M/mm3 (4.6-6.2); White Blood Count 14.8 K/mm3 (4.4-11.0)
[2018-08-15 18:07] LABS: Differential Indicated SCAN CRITERIA MET; POSITIVE COUNT YES; POSITIVE DIFFERENTIAL YES; POSITIVE MORPHOLOGY YES
[2018-08-15 18:28] LABS: Anisocytosis RARE; Macrocytosis RARE; Platelet Estimate ADEQUATE (ADEQ)
[2018-08-16 15:06] LABS: Pathologist Review Reviewed
== END ==
PROVIDERS: Family Provider Family Medicine Geriatric Medicine; PCP Family Medicine Geriatric Medicine; Visit Provider Family Medicine Geriatric Medicine
DX: N39.0 Urinary tract infection, site not specified (principal); R10.9 Unspecified abdominal pain; R82.99 Other abnormal findings in urine; N20.0 Calculus of kidney
CPT/HCPCS: 36415; 74176; 80048; 85025; 87077; 87086; 87088; 87186

== ENCOUNTER → 2018-08-15 17:42 | Outpatient (CLI) | payer MEDICARE, SELFPAY | PROVIDERS: Family Provider Family Medicine Geriatric Medicine; PCP Family Medicine Geriatric Medicine; Visit Provider Family Medicine Geriatric Medicine | DX: N20.0 Calculus of kidney (principal) ==

== ENCOUNTER 2018-08-16 02:48 | Inpatient (IN) | payer MEDICARE, SELFPAY ==
[2018-08-16] VITALS (15 sets, daily range): BP systolic 111–216; BP diastolic 68–103; PULSE 73–109; RESP 14–38; TEMP 36.7–38.7; O2SAT 93–98; BMI 42.9; BMI 40.1; BMI 40.2
[2018-08-16 03:11] LABS: Bedside Glucose 188 mg/dL (70-110)
--- NOTE | 2018-08-16 03:26 | CT_ITS ---
STUDY: CT BRAIN WITHOUT CONTRAST REASON FOR EXAM: Male, 73 years old. Delirium and fever. Patient has elevated blood pressure with multiple falls yesterday. RADIATION DOSAGE (If Supplied By Facility): CTDIvol = ( 44.99 ) mGy, DLP = ( 863.60 ) mGycm TECHNIQUE: Transaxial CT imaging of the brain was performed without administration of intravenous contrast material. Multiplanar reformations are submitted for interpretation. There is severe beam hardening and streak artifact arising from patient's left-sided cochlear implant device. Individualized dose optimization techniques were used for this CT. COMPARISON: CT of the head dated September 27, 2016. FINDINGS: Patient has bilateral orbital lenticular implants. Patient has had a partial left-sided mastoidectomy. There is opacification of the remaining left-sided mastoid air cells. Electronic devices visible at the operative site presumably represents a cochlear implant. Electronic device is visible within the soft tissues adjacent to the left mastoid. There is mild cerebral atrophy with widening of the extra-axial spaces and ventricular dilatation. Normal white matter tracts of the cerebral hemispheres. Normal basal ganglia and thalami. Normal brainstem. Normal cerebellum. There is no intracranial hemorrhage. There is mild atherosclerotic calcification of the intracranial arteries. There is a small right maxillary mucous retention cyst. CT/Brain/Head without Contrast IMPRESSION: 1. Chronic involutional changes of the brain. 2. Technically limited study secondary to severe beam hardening and streak artifact arising from patient's left-sided cochlear implant. 3. No definite evidence for acute intracranial hemorrhage. Electronically Signed: Sydney Dupree MD at 4:23 EDT , Service support ,
--- NOTE | 2018-08-16 03:26 | EKG12_ITS ---
Test Reason : ALT LOC Blood Pressure : / mmHG Vent. Rate : 098 BPM Atrial Rate : 098 BPM P-R Int : 172 ms QRS Dur : 090 ms QT Int : 344 ms P-R-T Axes : 053 -60 020 degrees QTc Int : 439 ms Normal sinus rhythm Left axis deviation Anterolateral infarct , age undetermined Abnormal ECG Confirmed by FRANCOISE LIMA, ANGELA ([id number]), news copy editor PK STACY ([id number]) on 08/19/2018 2:55:20 PM Referred By: PRIYANKA Confirmed By:ANGELA OWUSU MD
--- NOTE | 2018-08-16 03:30 | RAD_ITS ---
STUDY: X-RAY CHEST REASON FOR EXAM: Male, 73 years old. Altered mental status. TECHNIQUE: Single AP portable view of the chest. COMPARISON: 05/17/2018 FINDINGS: Mild patchy airspace infiltration at bilateral medial lung bases, new from prior imaging. No pleural effusion or pneumothorax. Mild cardiomegaly, unchanged. Normal mediastinum and ervin. Normal visualized pulmonary arteries. There is atherosclerotic calcification of the aortic arch . There are diffuse degenerative changes of the visualized thoracic spine. Normal visualized ribs, clavicles, and shoulders. There is no demonstrated abnormality of the visualized soft tissue structures of the upper abdomen. RAD/Chest 1 View (Portable) IMPRESSION: 1. Bilateral medial lung base atelectasis versus infiltrate. 2. Stable mild cardiomegaly. Electronically Signed: Reji Btut MD at 3:45 EDT Tel , Service support ,
[2018-08-16 03:36] LABS: Absolute Lymphocyte Count 1.63 X10^3/ul (0.83-4.51); Absolute Neutrophil Count 14.5 X10^3/uL (2.0-7.7); Basophil# 0.03 X10^3/uL; Basophil% 0.2 % (0-1); Eosinophil# 0.02 X10^3/uL; Eosinophils% 0.1 % (0-5); Hematocrit 41.2 % (40-54); Hemoglobin 14.1 g/dl (13.0-16.5); Lymphocyte # 1.63 X10^3/ul (4.0); Lymphocyte % 9.3 % (19-41); Mean Corp Hgb Conc 34.2 g/gl (32-36); Mean Corpuscular Hgb 31.5 pg (27.0-32.0); Mean Platelet Vol. 9.7 fl (6.2-12.0); Monocyte# 1.32 X10^3/uL; Monocyte% 7.5 % (0-10); Neutrophil # 14.47 X10^3/uL (2.7-7.7); Neutrophil % 82.6 % (47-70); Platelet Count 358 K/mm3 (150-450); RBC Distribution Width CV 13.6 % (11.6-14.6); RBC Distribution Width SD 44.5 fl (35.1-43.9); Red Blood Count 4.48 M/mm3 (4.6-6.2); White Blood Count 17.5 K/mm3 (4.4-11.0)
[2018-08-16 03:37] LABS: POSITIVE COUNT NO; POSITIVE DIFFERENTIAL NO; POSITIVE MORPHOLOGY NO
[2018-08-16 03:40] LABS: International Normalized Ratio 1.1; Prothrombin Time (Protime)PT. 14.2 SECONDS (11.7-14.9)
[2018-08-16 03:50] LABS: ALB/GLOB Ratio 0.8 RATIO (0.9-2.4); AST(SGOT) 19 U/L (15-37); Alanine Aminotransfer ALT/SGPT 14 U/L (16-61); Albumin, Serum 3.1 g/dL (3.2-5.0); Alkaline Phosphatase 84 U/L (45-117); Anion Gap 11 (5-15); BUN 14 mg/dL (7-18); BUN/Creat Ratio 15.9 RATIO (10-20); Calcium,Total 8.6 mg/dL (8.5-10.1); Chloride 105 mmol/L (98-107); Creatinine, Serum 0.88 mg/dL (0.70-1.30); EST Glomerular Filtration Rate 90 mL/min (>60); Est Glom Filt Rate - Afr Amer 109 mL/min (>60); Estimated Creatinine Clearance 72.33 ml/min; Globulin 3.9 g/dL (2.2-4.2); Glucose 188 mg/dL (74-106); Sodium Level 144 mmol/L (136-145)
--- NOTE | 2018-08-16 03:52 | ED.RN ---
lab called with critical lab results. lactic acid 2.0. Dr. Liu made aware. no new orders at this time
[2018-08-16 04:25] LABS: Bacteria 0 SEEN /hpf (None Seen); Mucous, Urine 0 SEEN /hpf (<or=2+); Squamous Epithelial Cells - UA 0 SEEN /hpf (0-5)
--- NOTE | 2018-08-16 04:25 | ED.RN ---
patient incontinent of urine. bed sheets changed and richy care preformed
[2018-08-16 04:31] LABS: Color, Urine Yellow (Yellow); Glucose, Dipstick 1000 mg/dl (Normal); Ketone-Dipstick 15 mg/dl (Negative); Leukocyte Esterase-Dipstick 100 /ul (Negative); Nitrite-Dipstick Negative (Negative); Occult Blood-Urine 250 /ul (Negative); Protein-Dipstick 30 mg/dl (Negative); Urine Bilirubin Dipstick Negative (Negative); Urine Clarity Clear (Clear); Urine Urobilinogen Normal (Normal); Urine pH 6.5 (5.0 - 8.0)
[2018-08-16 04:38] LABS: Red Blood Cells-Urine 10-25 SEEN /hpf (0-5); White Blood Cells 10-25 SEEN /hpf (0-5)
--- NOTE | 2018-08-16 05:00 | ED.VISSUMM ---
- ER Visit Summary Date of Service: 08/16/18 Chief Complaint: Confusion and weakness History of Present Illness: The patient is a 73 M who presents with weakness and altered mental status. He has a history of chronic back pain diabetes hypertension hyperlipidemia. He began to have blood in his urine yesterday morning. He saw his primary care physician in the office and was given IV fluids and antibiotics had a urine checked and a CT of the abdomen checked. CT showed no acute findings. After getting back home he was very weak. The notes that she needed assistance getting him out of the office and getting around at home. He has had a couple of falls out of his lift chair. He has also had some recent diarrhea but family attributes this to recent antibiotic treatment for bronchitis. The patient denies any pain although he had complained of a headache earlier. The called for lift assist after he fell out of his chair and on EMS arrival he was significantly confused so he was brought here for further evaluation. Physical Examination: Initial blood pressure 216/74 temperature 101.7 heart rate 100 pulse ox 93% on room air Moist mucous membranes Heart regular rhythm tachycardia Lungs are clear Abdomen soft Patient is alert but makes confused inappropriate answers. During attempt at history he stated I am just looking for some sugar and then reapplied to another question where can I clemens in my chips no focal or lateralizing neurological deficits Test Results: EKG shows sinus rhythm at a rate of 98. Chest x-ray shows bilateral atelectasis versus infiltrate. CT the head shows chronic changes only. Labs notable for white blood cell count of 17.5. Urinalysis is consistent with infection with 10-25 WBCs and 10-25 RBCs on a catheterized specimen. Lactic acid is 2.0. Emergency Department Course and Treatment: Patient was treated with IV fluids Tylenol Zosyn. I do believe he has a UTI and associated delirium. Patient to be discussed with the hospitalist and admitted. Treatment Plan: [] Disposition: Admit Impression: UTI Sepsis syndrome Delirium This note was generated with [employer] dictation software. It may contain incorrect words, spelling, and punctuation that were not noted in review of the chart prior to signing ED Disposition - Plan for ED Patient: Chief Complaint: Mental Status Change Referrals: Gil Wheeler Chi, MD [Primary Care Provider] -
[2018-08-16] MEDS: Acetaminophen 500 MG Tablet 1000 MG PO (05:13)
--- NOTE | 2018-08-16 05:30 | HP.PCM_ITS ---
Problem List (1) Non-rheumatic tricuspid valve insufficiency Status: Chronic (2) Chronic diastolic (congestive) heart failure Status: Chronic (3) Hyperlipidemia Status: Chronic Qualifiers: Hyperlipidemia type: pure hypercholesterolemia Qualified Code(s): E78.00 - Pure hypercholesterolemia, unspecified; E78.0 - Pure hypercholesterolemia (4) Hypertension Status: Chronic Qualifiers: Hypertension type: essential hypertension Qualified Code(s): I10 - Essential (primary) hypertension (5) Chronic acquired lymphedema Status: Chronic History of Present Illness Date of Admission: 08/16/18 Chief Complaint: Confusion, Falls. The patient is a 73 y/o M w/ PMHx: Chronic Diastolic CHF, HTN, HLD, Morbid Obesity, Chronic BL LE Lymphedema, PVD, Diabetes mellitus type II, EH, CAD who presents to the [facility] ED on 08/16/18 with history of increased debility, weakness, confusion and serial falls on day of ED presentation with last known well the evening prior at approximately 8 PM but additionally patient had urinary incontinence and was noted to also have hematuria. The patient was seen by his primary care physician in the office and administered IV fluids as well as antibiotics with a CT of the abdomen with no acute findings with discharged back to home. Patient did have recent loose stools but this was following recent treatment for bronchitis and these have improved. In the ED work-up included T 101.7, heart rate 100, BP 216/74 initially--> 178/81, respiratory rate 18, 93% on room air, CBC with WBC 17.5, hemoglobin 14.1, platelet 358 with left shift, unremarkable coags, CMP with glucose 188 otherwise not market appearing, lactic acid 2, urinalysis with 30 protein, 1000 glucose, 15 ketones, 250 occult blood, leukocyte esterase 100, RBC 10-25, WBC 10-25, blood cultures x2 per ED obtained, CT brain limited secondary to artifact arising from left-sided cochlear implant but no definitive evidence for acute intracranial hemorrhage, chest x-ray with bilateral medial lung base atelectasis versus infiltrate, stable mild cardiomegaly. In the ED patient administered Tylenol and IV Zosyn therapy. Past Medical History Past Medical History (Chronic Problems): Chronic Problems (Last Reviewed 07/17/18 @ 08:58 by Jethro Dozier MD) Abnormal electrocardiogram (Chronic) Non-rheumatic tricuspid valve insufficiency (Chronic) Chronic diastolic (congestive) heart failure (Chronic) Hyperlipidemia (Chronic) Hypertension (Chronic) Chronic acquired lymphedema (Chronic) Medical History: Medical History (Last Reviewed 07/17/18 @ 08:58 by Jethro Dozier MD) Non-rheumatic tricuspid valve insufficiency (Chronic) I36.1 Chronic diastolic (congestive) heart failure (Chronic) I50.32 Hyperlipidemia (Chronic) E78.5 Hypertension (Chronic) I10 Asbestos exposure Z77.090 GERD (gastroesophageal reflux disease) K21.9 Hypothyroidism E03.9 Obstructive sleep apnea G47.33 Type 2 diabetes mellitus E11.9 Venous stasis dermatitis of right lower extremity (Inactive) I83.11 Allergies cocaine Allergy (Verified 08/16/18 02:59) Unknown atorvastatin calcium [From Lipitor] Adverse Reaction (Verified 08/16/18 02:59) Pain in joints haloperidol [From Haldol] Adverse Reaction (Verified 08/16/18 02:59) Other WENT CRAZY morphine Adverse Reaction (Verified 08/16/18 02:59) Other extremely aggitated oxycodone [From OxyIR] Adverse Reaction (Verified 08/16/18 02:59) Pain in joints extremely aggitated prednisone Adverse Reaction (Verified 08/16/18 02:59) ANXIOUS, INSOMNIA STERIODS Adverse Reaction (Uncoded 08/16/18 02:59) Other ANXIETY INSOMNIA Home Medications: Ambulatory Orders Medication Instructions Recorded Insulin Glargine,Hum.rec.anlog 75 unit SC QHS 09/27/16 [Lantus] Paroxetine HCl [Paxil] 40 mg PO DAILY 09/27/16 Potassium Chloride [K-Dur] 20 meq PO BID 09/27/16 Simvastatin [Zocor] 40 mg PO QHS 09/27/16 Sitagliptin Phosphate [Januvia] 100 mg PO DAILY 09/27/16 Torsemide [Demadex] 20 mg PO BID 09/27/16 traZODone [Desyrel] 50 mg PO QHS 09/27/16 Divalproex Sodium [Depakote] 500 mg PO BID 08/14/17 Insulin Lispro [Humalog KwikPen] 0 unit SQ 4X/DAY 08/14/17 Allopurinol 100 mg PO DAILY 05/17/18 Dulaglutide [Trulicity] 1.5 mg SQ QWEEK 05/17/18 gabapentin 300 mg capsule 300 mg PO BID cap 07/17/18 levothyroxine 100 mcg capsule 112 mcg PO DAILY 07/17/18 losartan 100 mg tablet 100 mg PO DAILY #90 tab 07/17/18 Surgical History: Surgical History (Last Reviewed 07/17/18 @ 08:58 by Jethro Dozier MD) Cochlear implant in place Z96.21 H/O shoulder surgery Z98.890 History of left heart catheterization Onset Date: 08/15/17 Z98.890 non obstructive coronary arteries History of right knee joint replacement Z96.651 Hx of cholecystectomy Z90.49 Previous back surgery Z98.890 Surgical History: - - PCI, cholecystectomy, shoulder surgery with rotator cuff repair, back surgery, right total knee replacement, cochlear implant. Psychiatric History: No pertinent psych hx Lives: Spouse/ Significant Other Smoking Status: Former smoker Tobacco Use: Non-smoker Alcohol: None Drugs: None - *Family History Maternal Family History: Family History (Last Reviewed 07/17/18 @ 08:58 by Jethro Dozier MD) Mother Hypertension Father Hypertension History Items: Hypertension Paternal Family History: Family History (Last Reviewed 07/17/18 @ 08:58 by Jethro Dozier MD) Mother Hypertension Father Hypertension History Items: Heart Disease - decased age 73, Hypertension Review of Systems Constitutional: Reports: Malaise, Weakness, Fatigue. Denies: Chills, Fever, Weight Change HEENT: Denies: Head Aches, Sinus Congestion, Sinus Drainage Cardiovascular: Denies: Chest Pain, Palpitations Respiratory: Reports: Cough. Denies: Shortness of breath at rest, Shortness of breath upon exertion, Sputum production Gastrointestinal: Reports: Abdominal Pain. Denies: Nausea, Vomiting Genitourinary: Reports: Hematuria. Denies: Dysuria Musculoskeletal: Reports: Back Pain. Denies: Joint Pain, Joint Tenderness Skin: Denies: Rash, Wounds Neurological: Reports: Balance problems, Confusion. Denies: Focal weakness, Numbness, Tingling Psychiatric: Denies: Anxiety, Depression, Homicidal Ideations, Suicidal Ideations Hematologic/ Lymphatic: Reports: Anemia. Denies: Easy Bruising, Easy Bleeding VTE Information - Inpt Only VTE Present on Admission: No VTE Mechan Device Prophylaxis: SCD's VTE Pharm Prophylaxis ordered?: Yes Subjective: Seated upright in the ED bed, notes feeling better than initial presentation. Objective: Physical Examination: General: awake, alert, oriented to self, place, month, was prior very confused and inappropriate per ED staff, currently improved, cooperative, seated upright in ED bed in no apparent distress. Skin: normal color except notable abdominal and groin folds intertrigo, BL LE tonic venous stasis skin changes no turgor, no icterus, no cyanosis. HEENT: AT/NC, EOMI, PERRLA, dry MM, no carotid bruits or JVD noted; however thickened neck makes examination difficult. Lungs: Managed breath sounds bilaterally, greater bilateral bases, mild effort, no rales, ronchi or wheezing. Heart: Mildly tachycardic with regular rhythm; no gallop, rub audible. Abdomen: soft, obese, NTTP, ND, normal BS, no HSM. Extremities: no cyanosis, clubbing, tonic bilateral lower extremity lymphedema with chronic venous stasis skin changes. Neurological: patient awake, alert, oriented noted; cognitive function at baseline intact; pupils equally reactive to light and accomodation; cranial nerves II-XII grossly normal, moving all 4 extremities, no focal deficits, strength severely globally decreased secondary to acute presentation. Psychiatric: affect appears mildly agitated, inappropriate at times, no acute evidence of depressive or anxiety feelings. - Physical Exam Vital Signs Temp Pulse Resp BP Pulse Ox 101.7 F H 98 14 178/81 H 96 08/16/18 02:50 08/16/18 05:07 08/16/18 05:07 08/16/18 05:07 08/16/18 04:24 Oxygen Delivery Method Room Air Weight: 282 lb 3.067 oz Body Mass Index (BMI) 42.9 Finger Stick Blood Glucose 166 Laboratory Tests Past 24 Hrs 08/16/18 08/16/18 08/16/18 03:00 03:00 03:00 WBC 17.5 H RBC 4.48 L Hgb 14.1 Hct 41.2 MCV 92.0 MCH 31.5 MCHC 34.2 RDW 13.6 RDW Differential 44.5 H Plt Count 358 MPV 9.7 Immature Gran % (Auto) 0.300 Neut % (Auto) 82.6 H Lymph % (Auto) 9.3 L Stearns % (Auto) 7.5 Eos % (Auto) 0.1 Baso % (Auto) 0.2 Absolute Neuts (auto) 14.5 H Absolute Lymphs (auto) 1.63 Total Counted Not Reportable PT 14.2 INR 1.1 Sodium 144 Potassium 4.0 Chloride 105 Carbon Dioxide 28.0 Anion Gap 11 BUN 14 Creatinine 0.88 Estim Creat Clear Calc 72.33 Est GFR (MDRD) Af Amer 109 Est GFR (MDRD) Non-Af 90 BUN/Creatinine Ratio 15.9 Glucose 188 H Lactic Acid Calcium 8.6 Total Bilirubin 0.40 AST 19 ALT 14 L Alkaline Phosphatase 84 Total Protein 7.0 Albumin 3.1 L Globulin 3.9 Albumin/Globulin Ratio 0.8 L Urine Color Urine Clarity Urine pH Ur Specific [place] Urine Protein Urine Glucose (UA) Urine Ketones Urine Occult Blood Urine Nitrite Urine Bilirubin Urine Urobilinogen Ur Leukocyte Esterase Urine RBC Urine WBC Ur Squamous Epith Cells Urine Bacteria Urine Mucus 08/16/18 08/16/18 03:00 04:10 WBC RBC Hgb Hct MCV MCH MCHC RDW RDW Differential Plt Count MPV Immature Gran % (Auto) Neut % (Auto) Lymph % (Auto) Stearns % (Auto) Eos % (Auto) Baso % (Auto) Absolute Neuts (auto) Absolute Lymphs (auto) Total Counted PT INR Sodium Potassium Chloride Carbon Dioxide Anion Gap BUN Creatinine Estim Creat Clear Calc Est GFR (MDRD) Af Amer Est GFR (MDRD) Non-Af BUN/Creatinine Ratio Glucose Lactic Acid 2.0 Calcium Total Bilirubin AST ALT Alkaline Phosphatase Total Protein Albumin Globulin Albumin/Globulin Ratio Urine Color Yellow Urine Clarity Clear Urine pH 6.5 Ur Specific [place] 1.010 Urine Protein 30 H Urine Glucose (UA) 1000 H Urine Ketones 15 H Urine Occult Blood 250 H Urine Nitrite Negative Urine Bilirubin Negative Urine Urobilinogen Normal Ur Leukocyte Esterase 100 H Urine RBC 10-25 SEEN Urine WBC 10-25 SEEN Ur Squamous Epith Cells 0 SEEN Urine Bacteria 0 SEEN Urine Mucus 0 SEEN POC Glucose 08/16/18 03:07 POC Glucose 188 H Assessment/Plan All Active Problems (Last Reviewed 07/17/18 @ 08:58 by Jethro Dozier MD) Preop cardiovascular exam (Acute) Skin tear of right lower leg without complication (Acute) Cellulitis (Resolved) Fissure in skin of foot (Acute) Hypokalemia (Resolved) The patient is a 73 y/o M w/ PMHx: Chronic Diastolic CHF, HTN, HLD, Morbid Obesity, Chronic BL LE Lymphedema, PVD, Diabetes mellitus type II, EH, CAD who presents to the [facility] ED on 08/16/18 with history of increased debility, weakness, confusion and serial falls on day of ED presentation with last known well the evening prior at approximately 8 PM but additionally patient had urinary incontinence and was noted to also have hematuria. (1) Acute Sepsis secondary to Acute Encephalopathy secondary to Acute Complicated UTI and Possible Community Acquired Pneumonia: ED work-up included T 101.7, heart rate 100, BP 216/74 initially--> 178/81, respiratory rate 18, 93% on room air, CBC with WBC 17.5, hemoglobin 14.1, platelet 358 with left shift, unremarkable coags, CMP with glucose 188 otherwise not market appearing, lactic acid 2, urinalysis with 30 protein, 1000 glucose, 15 ketones, 250 occult blood, leukocyte esterase 100, RBC 10-25, WBC 10-25, blood cultures x2 per ED obtained, CT brain limited secondary to artifact arising from left-sided cochlear implant but no definitive evidence for acute intracranial hemorrhage, chest x-ray with bilateral medial lung base atelectasis versus infiltrate, stable mild cardiomegaly. Will admit to [facility], maintain on oxygen with wean as tolerated to room air, continue ATC duonebs, PRN albuterol, maintained on IV Rocephin and Azithromycin, HOB, IS parameters w/ pending sputum cultures and urine antigens. Ucx and Bld cx x 2 obtained in the ED. (2) Chronic diastolic CHF: Continue home regimen aspirin, statin, ARB, furosemide, not on beta-torie. (3) CAD: Continue home regimen aspirin, statin, not on beta-torie. (4) Hypertension: Continue home regimen including losartan, furosemide, PRN hydralazine. (5) Hyperlipidemia: Continue home statin regimen. (6) Hypothyroidism: Continue home synthroid regimen. (7) Anxiety and depression: Continue home paroxetine regimen. (8) Chronic BL LE Lymphedema, PVD: Maintain on asa, statin, BP regimen including torsemide, DONTAE wraps, BL LE elevation. (9) Morbid Obesity: Weight loss and lifestyle changes encouraged, nutrition consulted. (10) Diabetes mellitus type II: Hold oral home regimen, continue home insulin regimen, ADA diet, accu checks w/ ISS. (11) EH: CPAP q HS. (12) Chronic Back Pain: Uses lift normally, severe back pain, prior back surgeries. (13) Intertrigo: Nystatin powder. (14) DVT Prophylaxis: SCDs, lovenox. Code Visit Inpatient E&M: 72935 Init Hosp L3
[2018-08-16 07:30] LABS: Reflex Lactate? Y
[2018-08-16 08:15] LABS: Bedside Glucose 132 mg/dL (70-110)
[2018-08-16 08:24] LABS: Lactic Acid 1.6 mmol/L (0.4-2.0)
[2018-08-16] MEDS: Levothyroxine 112 MCG Tablet PO (08:30)
--- NOTE | 2018-08-16 10:37 | PCM.HOSP.N ---
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 Seen and examined. H&P, labs, vitals, imaging test and plan of management reviewed. 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 He also had left lumbar back pain which radiates to front. Patient is hard of hearing but as I understand he follows urologist for testicular cyst. Patient complain of burning micturition. A CT scan showed no acute finding. Patient was recently treated with antibiotic for bronchitis and recent diarrhea. On exam, Hard of hearing, patient uses hearing aid on left ear. Lungs air entry diminished bilaterally. Clear to auscultation. Heart: S1-S2 regular no murmur gallop rub. Back: Lumbar surgical scar present tenderness on the left renal angle and paraspinal muscle. Neuro: Alert awake oriented x3 Skin: Both lower legs wrapped with Familia wrap bandage and is superficial wounds. 1. SIRS with sepsis secondary to complicated UTI with acute encephalopathy, most probably infectious and metabolic: Patient has leukocytosis. High fever, tachycardia. Patient was started on IV Rocephin and Zithromax. 2. Chronic bilateral lower extremity lymphedema 3. Other chronic comorbidities are chronic diastolic heart failure, coronary artery disease, hypertension, dyslipidemia, hypothyroidism, anxiety and discoloration
--- NOTE | 2018-08-16 10:41 | CCHN_ITS ---
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 Seen and examined. H&P, labs, vitals, imaging test and plan of management reviewed. 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 He also had left lumbar back pain which radiates to front. Patient is hard of hearing but as I understand he follows urologist for testicular cyst. Patient complain of burning micturition. A CT scan showed no acute finding. Patient was recently treated with antibiotic for bronchitis and recent diarrhea. On exam, Hard of hearing, patient uses hearing aid on left ear. Lungs air entry diminished bilaterally. Clear to auscultation. Heart: S1-S2 regular no murmur gallop rub. Back: Lumbar surgical scar present tenderness on the left renal angle and paraspinal muscle. Neuro: Alert awake oriented x3 Skin: Both lower legs wrapped with Familia wrap bandage and is superficial wounds. 1. SIRS with sepsis secondary to complicated UTI with acute encephalopathy, most probably infectious and metabolic: Patient has leukocytosis. High fever, tachycardia. Patient was started on IV Rocephin and Zithromax. 2. Chronic bilateral lower extremity lymphedema 3. Other chronic comorbidities are chronic diastolic heart failure, coronary artery disease, hypertension, dyslipidemia, hypothyroidism, anxiety and discoloration
[2018-08-16] MEDS: Ipratropium/Albuterol Sulfate 3 ML AMPUL.NEB INHALATION ×4 (10:52→23:09)
[2018-08-16] MEDS: Enoxaparin 40 MG/0.4 ML Syringe SC ×2 (11:17→21:10)
[2018-08-16] MEDS: Divalproex Sodium 250 MG Tablet 500 MG PO ×2 (11:17→22:11)
[2018-08-16] MEDS: Gabapentin 300 MG Capsule PO ×2 (11:17→16:55)
[2018-08-16] MEDS: Famotidine 20 MG Tablet PO ×2 (11:17→21:10)
[2018-08-16] MEDS: Losartan Potassium 100 MG Tablet PO (11:17)
[2018-08-16] MEDS: guaiFENesin 1,200 MG Tablet 1200 MG PO ×2 (11:17→21:11)
[2018-08-16] MEDS: Furosemide 40 MG Tablet PO (11:17)
[2018-08-16] MEDS: Allopurinol 100 MG Tablet PO (11:17)
[2018-08-16] MEDS: Acetaminophen 325 MG Tablet 650 MG PO ×2 (11:24→19:36)
[2018-08-16] MEDS: Insulin Lispro 100 UNIT/ML INSULN.PEN SC ×2 (11:25→21:11)
--- NOTE | 2018-08-16 11:47 | CASEMGMT ---
JOSELITO CM Assessment completed. See Link. DC Plan: undetermined. If SNF is needed, will need set up on Sunday as precert will be needed. -Discussed dc planning with patient. He requests to return home on dc. States he does not walk much @ home, has walker, lift chair and scooter. Discussed PT/OT notes, pt says he always has limited activity @ home. - not available at this time. Message left to return call when able.
--- NOTE | 2018-08-16 12:16 | CASEMGMT ---
Addendum entered by Jyoti Saenz 08/16/18 13:20: Precert is pending, Desiree in TCU to let JENNIFER Rodrigues know if precert attained today. BERLIN Jaffe, [employer] Original Note: GEOVANNI spoke w/, pt was to go to TCU after back surgery on the , asked about referring pt now to TCU. SW called TCU, they have a bed and will start precert. Rell let pt's know. SW will continue to follow for discharge to TCU when appropriate. BERLIN Jaffe [employer]
[2018-08-16 12:25] LABS: Bedside Glucose 198 mg/dL (70-110)
--- NOTE | 2018-08-16 12:40 | CASEMGMT ---
JOSELITO GALARZA Note: Intro role of CM via phone. Per , she has had increasing difficulty taking care of patient at home. He has very limited mobility, ambulates from lift chair to BSC. Pt is to have surgery 08/28/18 for his back and plans to go to TCU postoperatively. JOSELITO GALARZA spoke with re: having pt go to TCU on dc this visit. is agreeable and would prefer this as she stated several times that they were having increasing care needs at home. -JOSELITO GALARZA spoke with patient re: dc planning to TCU. Patient is agreeable. Notified pt that will be in later. -JENNIFER referral, update to [facility] for TCU referral. Bed is available and precert can be started. -Text message to Dr. Sorensen to notify of dc planning.
[2018-08-16] MEDS: Ceftriaxone 1 GM/50 ML BAG IV (13:13)
[2018-08-16] MEDS: Furosemide 40 MG/4 ML Vial IV (16:55)
[2018-08-16] MEDS: Glucerna Shake 120 ML LIQUID PO (16:55)
[2018-08-16 17:20] LABS: Bedside Glucose 147 mg/dL (70-110)
--- NOTE | 2018-08-16 17:53 | NURSING ---
received call from Desiree in TCU. states that percert was obtained for pt to go to TCU and is able to go if medically stable this weekend.
[2018-08-16] MEDS: traZODone 50 MG Tablet PO (21:10)
[2018-08-16] MEDS: Metoprolol Tartrate 25 MG Tablet PO (21:10)
[2018-08-16] MEDS: Menthol/Lanolin/Calamine/Znox 113 GM Tube 1 APPLIC TOPICAL (21:16)
[2018-08-16 22:20] LABS: Bedside Glucose 221 mg/dL (70-110)
[2018-08-17] VITALS (11 sets, daily range): BP systolic 138–150; BP diastolic 69–80; PULSE 61–89; RESP 16–20; TEMP 36.7–37.2; O2SAT 94–100
[2018-08-17] MEDS: Menthol/Lanolin/Calamine/Znox 113 GM Tube 1 APPLIC TOPICAL ×3 (06:35→21:53)
[2018-08-17] MEDS: 0.9% NaCl Peripheral Flush Adult/Peds IV ×2 (06:35→09:49)
[2018-08-17] MEDS: Levothyroxine 112 MCG Tablet PO (06:35)
[2018-08-17 06:50] LABS: Bedside Glucose 95 mg/dL (70-110)
[2018-08-17] MEDS: Ipratropium/Albuterol Sulfate 3 ML AMPUL.NEB INHALATION ×5 (06:52→23:38)
--- NOTE | 2018-08-17 07:01 | CPS ---
Pt states he does have a CPAP machine but he does not wear it because he does not like it. Refuses hospital CPAP.
[2018-08-17 07:26] LABS: Absolute Lymphocyte Count 2.04 X10^3/ul (0.83-4.51); Absolute Neutrophil Count 10.3 X10^3/uL (2.0-7.7); Basophil# 0.02 X10^3/uL; Basophil% 0.1 % (0-1); Eosinophil# 0.05 X10^3/uL; Eosinophils% 0.4 % (0-5); Hematocrit 38.5 % (40-54); Hemoglobin 12.7 g/dl (13.0-16.5); Lymphocyte # 2.04 X10^3/ul (4.0); Lymphocyte % 14.8 % (19-41); Mean Corpuscular Hgb 30.6 pg (27.0-32.0); Mean Corpuscular Volume 92.8 fL (80-94); Monocyte# 1.38 X10^3/uL; Neutrophil # 10.27 X10^3/uL (2.7-7.7); Neutrophil % 74.6 % (47-70); Platelet Count 308 K/mm3 (150-450); RBC Distribution Width CV 13.8 % (11.6-14.6); RBC Distribution Width SD 45.5 fl (35.1-43.9); Red Blood Count 4.15 M/mm3 (4.6-6.2); White Blood Count 13.8 K/mm3 (4.4-11.0)
[2018-08-17 07:31] LABS: POSITIVE COUNT NO; POSITIVE DIFFERENTIAL NO; POSITIVE MORPHOLOGY NO
[2018-08-17 07:46] LABS: Anion Gap 7 (5-15); BUN 10 mg/dL (7-18); BUN/Creat Ratio 15.6 RATIO (10-20); Calcium,Total 8.5 mg/dL (8.5-10.1); Chloride 104 mmol/L (98-107); Creatinine, Serum 0.64 mg/dL (0.70-1.30); EST Glomerular Filtration Rate 130 mL/min (>60); Est Glom Filt Rate - Afr Amer 157 mL/min (>60); Estimated Creatinine Clearance 63.65 ml/min; Glucose 110 mg/dL (74-106); Potassium 3.2 mmol/L (3.5-5.1); Sodium Level 139 mmol/L (136-145)
[2018-08-17] MEDS: Aspirin 81 MG TAB.CHEW PO (09:35)
[2018-08-17] MEDS: Gabapentin 300 MG Capsule PO ×2 (09:36→16:49)
[2018-08-17] MEDS: Divalproex Sodium 250 MG Tablet 500 MG PO ×2 (09:37→21:54)
[2018-08-17] MEDS: Losartan Potassium 100 MG Tablet PO (09:37)
[2018-08-17] MEDS: Allopurinol 100 MG Tablet PO (09:37)
[2018-08-17] MEDS: Metoprolol Tartrate 25 MG Tablet PO ×2 (09:38→21:54)
[2018-08-17] MEDS: guaiFENesin 1,200 MG Tablet 1200 MG PO ×2 (09:39→21:55)
[2018-08-17] MEDS: Famotidine 20 MG Tablet PO ×2 (09:40→21:54)
[2018-08-17] MEDS: Ceftriaxone 1 GM/50 ML BAG IV (09:49)
[2018-08-17] MEDS: Furosemide 40 MG/4 ML Vial IV ×2 (09:49→18:51)
[2018-08-17] MEDS: Enoxaparin 40 MG/0.4 ML Syringe SC ×2 (09:57→21:55)
[2018-08-17] MEDS: Glucerna Shake 120 ML LIQUID PO ×4 (10:03→21:55)
--- NOTE | 2018-08-17 10:21 | PCM.PN.HOSP ---
Subjective: Patient seen and examined. He was admitted with a complaint of confusion and weakness and of pus and blood in his urine. He has a complaint of left lumbar back pain. CT of the head showed no acute process and chest x-ray showed right middle lobe pneumonia. He is been managed for sepsis due to UTI and pneumonia. He is on IV ceftriaxone and azithromycin. Patient seen and examined this morning. He feels better this morning and fever has resolved. He still has a cough which is productive of clear sputum. He denies any shortness of breath, any chest pain, abdominal pain, any diarrhea vomiting. Patient is alert and oriented today and able to give a good history. 12 point review of systems otherwise negative. Labs and vitals reviewed. Vitals/I&O's: Vital Signs Temp Pulse Resp BP Pulse Ox 98.1 F 67 18 150/78 H 98 08/17/18 09:30 08/17/18 09:38 08/17/18 09:30 08/17/18 09:38 08/17/18 09:30 Oxygen Delivery Method CPAP Weight: 265 lb 3.457 oz Body Mass Index (BMI) 40.1 Finger Stick Blood Glucose 166 Intake and Output for Last 24 Hours 08/15/18 08/16/18 08/17/18 23:59 23:59 23:59 Intake Total 2946 / 2946 360 / 360 Balance 2946 / 2946 360 / 360 General: Alert, Oriented x3, Cooperative, No apparent distress HEENT: Atraumatic, PERRLA, EOMI, Normocephalic Oral: Moist Mucosa Neck: Supple, No JVD, Negative Carotid Bruits Lungs: - - Decreased breath sounds bibasilarly with no crackles or wheezes. Cardiovascular: Regular rate, Regular Rhythm, Normal S1, Normal S2, No murmurs Abdomen: Bowel Sounds Present, Soft, Non Tender, Non-Distended, No Hepato-splenomegaly Extremities: No clubbing, No cyanosis, No edema, Capillary Refill Less than 3 Seconds Skin: No rashes, No breakdown Musculoskeletal: No Tenderness to Palpation of Joints or Extremities Lymphatic: No Cervical, Supraclavicular, or Inguinal Adenopathy Neurological: Cranial nerves II-XII grossly intact, Neuro grossly intact, Motor Exam 5/5 strength throughout Psych/Mental Status: Normal Affect, Appropriate, Alert and oriented to time, place, person, mood and affect Microbiology Past 72 Hours 08/16/18 04:19 Urine, Catheterized Urine Culture - Preliminary Culture exhibits no growth. 08/16/18 09:25 Mucosa - Nasopharyngeal Respiratory Panel (PCR) - Final Rhinovirus 08/16/18 04:19 Urine Catheter - Catheter Legionella Antigen - Final 08/16/18 04:19 Urine Catheter - Catheter Streptococcus pneumoniae Antigen (M - Final Laboratory Results 08/16/18 11:24: POC Glucose 198 H 08/16/18 16:48: POC Glucose 147 H 08/16/18 21:01: POC Glucose 221 H 08/17/18 06:23: WBC 13.8 H, RBC 4.15 L, Hgb 12.7 L, Hct 38.5 L, MCV 92.8, MCH 30.6, MCHC 33.0, RDW 13.8, RDW Differential 45.5 H, Plt Count 308, MPV 10.0, Immature Gran % (Auto) 0.100, Neut % (Auto) 74.6 H, Lymph % (Auto) 14.8 L, [place] % (Auto) 10.0, Eos % (Auto) 0.4, Baso % (Auto) 0.1, Absolute Neuts (auto) 10.3 H, Absolute Lymphs (auto) 2.04, Total Counted Not Reportable 08/17/18 06:23: Sodium 139, Potassium 3.2 L, Chloride 104, Carbon Dioxide 28.0, Anion Gap 7, BUN 10, Creatinine 0.64 L, Estim Creat Clear Calc 63.65, Est GFR (MDRD) Af Amer 157, Est GFR (MDRD) Non-Af 130, BUN/Creatinine Ratio 15.6, Glucose 110 H, Calcium 8.5 08/17/18 06:34: POC Glucose [address] 08/16/18 03:26 IMPRESSION: 1. Chronic involutional changes of the brain. 2. Technically limited study secondary to severe beam hardening and streak artifact arising from patient's left-sided cochlear implant. 3. No definite evidence for acute intracranial hemorrhage. Electronically Signed: Sydney Dupree MD at 4:23 EDT , Service support , Chest X-Ray 08/16/18 03:30 IMPRESSION: 1. Bilateral medial lung base atelectasis versus infiltrate. 2. Stable mild cardiomegaly. Electronically Signed: Reji Butt MD at 3:45 EDT Tel , Service support , Current Medications Acetaminophen (Tylenol) 650 mg PO Q6H PRN PRN PRN Reason: Mild Pain (scale 0-3)/T>100.7 Last Admin: 08/16/18 19:36 Dose: 650 mg Al Hydroxide/Mg Hydroxide (Mylanta Ii) 30 ml PO Q6H PRN PRN PRN Reason: Gastric burning Albuterol Sulfate (Ventolin Aerosols) 2.5 mg INHALATION Q2H PRN PRN PRN Reason: SHORTNESS OF BREATH Albuterol/Ipratropium (Duoneb) 3 ml INHALATION Q4H.RT [facility] Last Admin: 08/17/18 06:52 Dose: 3 ml Allopurinol (Zyloprim) 100 mg PO DAILY@0800 [facility] Last Admin: 08/17/18 09:37 Dose: 100 mg Aspirin (Aspirin, Baby) 81 mg PO DAILY@0800 [facility] Last Admin: 08/17/18 09:35 Dose: 81 mg Calamine/Phenol (Calmoseptine Ointment) 1 applic TOPICAL TID [facility]; Protocol Last Admin: 08/17/18 06:35 Dose: 1 applicatio Divalproex Sodium (Depakote) 500 mg PO BID [facility] Last Admin: 08/17/18 09:37 Dose: 500 mg Enoxaparin Sodium (Lovenox) 40 mg SC BID [facility] Last Admin: 08/17/18 09:57 Dose: 40 mg Famotidine (Pepcid) 20 mg PO BID [facility] Last Admin: 08/17/18 09:40 Dose: 20 mg Furosemide (Lasix) 40 mg IV BID@1000,1800 [facility] Last Admin: 08/17/18 09:49 Dose: 40 mg [facility]) [facility] Last Admin: 08/17/18 09:36 Dose: 300 mg Guaifenesin (Mucinex) 1,200 mg PO BID [facility] Last Admin: 08/17/18 09:39 Dose: 1,200 mg Guaifenesin/Codeine Phosphate (Robitussin Ac) 10 ml PO Q6H PRN PRN PRN Reason: COUGH Azithromycin 500 mg/ Dextrose 255 mls @ 250 mls/hr IV Q24 [facility] Stop: 08/18/18 11:02 Last Admin: 08/16/18 11:02 Dose: 250 mls/hr Ceftriaxone Sodium (Rocephin) 1 gm in 50 mls @ 100 mls/hr IV Q24H [facility] Last Admin: 08/17/18 09:49 Dose: 100 mls/hr Insulin Glargine (Lantus (Bkc)) 75 units SC QHS [facility] Last Admin: 08/16/18 21:11 Dose: 75 u Insulin Human Lispro (Humalog Kwikpen (Bk)) 0 unit SC ACHS [facility]; Protocol Last Admin: 08/17/18 06:34 Dose: Not Given Labetalol HCl (Trandate) 10 mg IV Q4H PRN PRN PRN Reason: SBP>180 mmhg Levothyroxine Sodium (Synthroid) 112 mcg PO DAILY@0600 [facility] Last Admin: 08/17/18 06:35 Dose: 112 mcg Losartan Potassium (Cozaar) 100 mg PO DAILY [facility] Last Admin: 08/17/18 09:37 Dose: 100 mg Magnesium Hydroxide (Milk Of Magnesia) 30 ml PO DAILY PRN PRN PRN Reason: Constipation Metoprolol Tartrate (Lopressor (Beta Romel)) 25 mg PO BID [facility] Last Admin: 08/17/18 09:38 Dose: 25 mg Nutritional Formula (Lactose Free) (Glucerna Shake) 120 ml PO 4X/DAY [facility] Last Admin: 08/17/18 10:03 Dose: 120 ml Ondansetron HCl (Zofran) 4 mg IV Q8H PRN PRN PRN Reason: NAUSEA Paroxetine HCl (Paxil) 40 mg PO DAILY [facility] Last Admin: 08/17/18 09:39 Dose: 40 mg Potassium Chloride (K-Dur) [facility] Last Admin: 08/17/18 09:36 Dose: 20 meq Promethazine HCl (Phenergan) 12.5 mg IV Q6H PRN PRN PRN Reason: NAUSEA/VOMITING Simvastatin (Zocor) 40 mg PO QHS [facility] Last Admin: 08/16/18 22:11 Dose: 40 mg Sodium Chloride () 5 - 30 ml IV UD PRN PRN Reason: SALINE FLUSH Last Admin: 08/17/18 09:49 Dose: 10 ml Trazodone HCl (Desyrel) 50 mg PO QHS [facility] Last Admin: 08/16/18 21:10 Dose: 50 mg Medical Necessity - Tobacco Use Smoking Status: Former smoker Tobacco Use: Non-smoker Assessment/Plan All Active Problems (Last Reviewed 07/17/18 @ 08:58 by Jethro Dozier MD) Preop cardiovascular exam (Acute) Skin tear of right lower leg without complication (Acute) Cellulitis (Resolved) Fissure in skin of foot (Acute) Hypokalemia (Resolved) 1. Sepsis due to UTI and community acquired pneumonia SIRS crieria today is 1/4 (leucocytosis). Tachypnea has resolved wbc trended down to 13.8 on IV ceftriaxone and azithromycin CXR showed evidence of right middle lobe pneumonia. Brain CT was negative. Urinalysis showed leukocyte esterase of 100, WBC of 10-25 and RBC of 10-25 as well as occult blood of 250, 0 bacteria. Outpatient urinary culture grew to [place] which is resistant to ceftriaxone and azithromycin. However we are not aware of what it is sensitive to. Urine cultures taken during admission is still pending. Continue current antibiotics and adjust as per urine and blood cultures. on breathing treatments 2.Acute complicated UTI: as mentioed above under 1. Urine culture pending. On IV ceftriaxone 3. Community acquired pneumonia as under 1. respiratory panel grew rhinovirus. strep and legionella Ag were negative blood culture pending CXR as documented under 1. on IV ceftriaxone and azithromycin 4. HFpEF on Lasix, statin and aspirin as well as losartan. and metoprolol 5. Hypokalemia: K ois 3.2. Will replace and monitor 6. diabetes mellitus: on insulin lantus 75 IU nightly and insulin sliding scale. also on sitagliptin, invokana and trulicity. Accu-Cheks before meals at bedtime. 7. CAD: On aspirin and statin and losartan and metoprolol 8. Hypertension: fairly controlled. On losartan and furosemide. labetalol prn 9. Hyperlipidemia: on statin 10. Denies any depression: On paroxetine. 7. Chronic bilateral lower extremity edema. Familia wraps on both lower extremities. On furosemide. 8. EH: on CPAP qhs Prophylaxis: Lovenox Gi prophylaxis: famotidine Code status: full code. Code Visit Inpatient E&M: 60979 Subs Hosp L3
--- NOTE | 2018-08-17 10:32 | PN_ITS ---
Subjective: Patient seen and examined. He was admitted with a complaint of confusion and weakness and of pus and blood in his urine. He has a complaint of left lumbar back pain. CT of the head showed no acute process and chest x-ray showed right middle lobe pneumonia. He is been managed for sepsis due to UTI and pneumonia. He is on IV ceftriaxone and azithromycin. Patient seen and examined this morning. He feels better this morning and fever has resolved. He still has a cough which is productive of clear sputum. He denies any shortness of breath, any chest pain, abdominal pain, any diarrhea vomiting. Patient is alert and oriented today and able to give a good history. 12 point review of systems otherwise negative. Labs and vitals reviewed. Vitals/I&O's: Vital Signs Temp Pulse Resp BP Pulse Ox 98.1 F 67 18 150/78 H 98 08/17/18 09:30 08/17/18 09:38 08/17/18 09:30 08/17/18 09:38 08/17/18 09:30 Oxygen Delivery Method CPAP Weight: 265 lb 3.457 oz Body Mass Index (BMI) 40.1 Finger Stick Blood Glucose 166 Intake and Output for Last 24 Hours 08/15/18 08/16/18 08/17/18 23:59 23:59 23:59 Intake Total 2946 / 2946 360 / 360 Balance 2946 / 2946 360 / 360 General: Alert, Oriented x3, Cooperative, No apparent distress HEENT: Atraumatic, PERRLA, EOMI, Normocephalic Oral: Moist Mucosa Neck: Supple, No JVD, Negative Carotid Bruits Lungs: - - Decreased breath sounds bibasilarly with no crackles or wheezes. Cardiovascular: Regular rate, Regular Rhythm, Normal S1, Normal S2, No murmurs Abdomen: Bowel Sounds Present, Soft, Non Tender, Non-Distended, No Hepato- splenomegaly Extremities: No clubbing, No cyanosis, No edema, Capillary Refill Less than 3 Seconds Skin: No rashes, No breakdown Musculoskeletal: No Tenderness to Palpation of Joints or Extremities Lymphatic: No Cervical, Supraclavicular, or Inguinal Adenopathy Neurological: Cranial nerves II-XII grossly intact, Neuro grossly intact, Motor Exam 5/5 strength throughout Psych/Mental Status: Normal Affect, Appropriate, Alert and oriented to time, place, person, mood and affect Microbiology Past 72 Hours 08/16/18 04:19 Urine, Catheterized Urine Culture - Preliminary Culture exhibits no growth. 08/16/18 09:25 Mucosa - Nasopharyngeal Respiratory Panel (PCR) - Final Rhinovirus 08/16/18 04:19 Urine Catheter - Catheter Legionella Antigen - Final 08/16/18 04:19 Urine Catheter - Catheter Streptococcus pneumoniae Antigen (M - Final Laboratory Results 08/16/18 11:24: POC Glucose 198 H 08/16/18 16:48: POC Glucose 147 H 08/16/18 21:01: POC Glucose 221 H 08/17/18 06:23: WBC 13.8 H, RBC 4.15 L, Hgb 12.7 L, Hct 38.5 L, MCV 92.8, MCH 30.6, MCHC 33.0, RDW 13.8, RDW Differential 45.5 H, Plt Count 308, MPV 10.0, Immature Gran % (Auto) 0.100, Neut % (Auto) 74.6 H, Lymph % (Auto) 14.8 L, [place] % (Auto) 10.0, Eos % (Auto) 0.4, Baso % (Auto) 0.1, Absolute Neuts (auto) 10.3 H , Absolute Lymphs (auto) 2.04, Total Counted Not Reportable 08/17/18 06:23: Sodium 139, Potassium 3.2 L, Chloride 104, Carbon Dioxide 28.0, Anion Gap 7, BUN 10, Creatinine 0.64 L, Estim Creat Clear Calc 63.65, Est GFR (MDRD) Af Amer 157, Est GFR (MDRD) Non-Af 130, BUN/Creatinine Ratio 15.6, Glucose 110 H, Calcium 8.5 08/17/18 06:34: POC Glucose [address] 08/16/18 03:26 IMPRESSION: 1. Chronic involutional changes of the brain. 2. Technically limited study secondary to severe beam hardening and streak artifact arising from patient's left-sided cochlear implant. 3. No definite evidence for acute intracranial hemorrhage. Electronically Signed: Sydney Dupree MD at 4:23 EDT , Service support , Chest X-Ray 08/16/18 03:30 IMPRESSION: 1. Bilateral medial lung base atelectasis versus infiltrate. 2. Stable mild cardiomegaly. Electronically Signed: Reji Butt MD at 3:45 EDT Tel , Service support , Current Medications Acetaminophen (Tylenol) 650 mg PO Q6H PRN PRN PRN Reason: Mild Pain (scale 0-3)/T>100.7 Last Admin: 08/16/18 19:36 Dose: 650 mg Al Hydroxide/Mg Hydroxide (Mylanta Ii) 30 ml PO Q6H PRN PRN PRN Reason: Gastric burning Albuterol Sulfate (Ventolin Aerosols) 2.5 mg INHALATION Q2H PRN PRN PRN Reason: SHORTNESS OF BREATH Albuterol/Ipratropium (Duoneb) 3 ml INHALATION Q4H.RT [facility] Last Admin: 08/17/18 06:52 Dose: 3 ml Allopurinol (Zyloprim) 100 mg PO DAILY@0800 [facility] Last Admin: 08/17/18 09:37 Dose: 100 mg Aspirin (Aspirin, Baby) 81 mg PO DAILY@0800 [facility] Last Admin: 08/17/18 09:35 Dose: 81 mg Calamine/Phenol (Calmoseptine Ointment) 1 applic TOPICAL TID [facility]; Protocol Last Admin: 08/17/18 06:35 Dose: 1 applicatio Divalproex Sodium (Depakote) 500 mg PO BID [facility] Last Admin: 08/17/18 09:37 Dose: 500 mg Enoxaparin Sodium (Lovenox) 40 mg SC BID [facility] Last Admin: 08/17/18 09:57 Dose: 40 mg Famotidine (Pepcid) 20 mg PO BID [facility] Last Admin: 08/17/18 09:40 Dose: 20 mg Furosemide (Lasix) 40 mg IV BID@1000,1800 [facility] Last Admin: 08/17/18 09:49 Dose: 40 mg [facility] ([facility]in) [facility] Last Admin: 08/17/18 09:36 Dose: 300 mg Guaifenesin (Mucinex) 1,200 mg PO BID [facility] Last Admin: 08/17/18 09:39 Dose: 1,200 mg Guaifenesin/Codeine Phosphate (Robitussin Ac) 10 ml PO Q6H PRN PRN PRN Reason: COUGH Azithromycin 500 mg/ Dextrose 255 mls @ 250 mls/hr IV Q24 [facility] Stop: 08/18/18 11:02 Last Admin: 08/16/18 11:02 Dose: 250 mls/hr Ceftriaxone Sodium (Rocephin) 1 gm in 50 mls @ 100 mls/hr IV Q24H [facility] Last Admin: 08/17/18 09:49 Dose: 100 mls/hr Insulin Glargine (Lantus (Bkc)) 75 units SC QHS [facility] Last Admin: 08/16/18 21:11 Dose: 75 u Insulin Human Lispro (Humalog Kwikpen (Bk)) 0 unit SC ACHS [facility]; Protocol Last Admin: 08/17/18 06:34 Dose: Not Given Labetalol HCl (Trandate) 10 mg IV Q4H PRN PRN PRN Reason: SBP>180 mmhg Levothyroxine Sodium (Synthroid) 112 mcg PO DAILY@0600 [facility] Last Admin: 08/17/18 06:35 Dose: 112 mcg Losartan Potassium (Cozaar) 100 mg PO DAILY [facility] Last Admin: 08/17/18 09:37 Dose: 100 mg Magnesium Hydroxide (Milk Of Magnesia) 30 ml PO DAILY PRN PRN PRN Reason: Constipation Metoprolol Tartrate (Lopressor (Beta Romel)) 25 mg PO BID [facility] Last Admin: 08/17/18 09:38 Dose: 25 mg Nutritional Formula (Lactose Free) (Glucerna Shake) 120 ml PO 4X/DAY [facility] Last Admin: 08/17/18 10:03 Dose: 120 ml Ondansetron HCl (Zofran) 4 mg IV Q8H PRN PRN PRN Reason: NAUSEA Paroxetine HCl (Paxil) 40 mg PO DAILY [facility] Last Admin: 08/17/18 09:39 Dose: 40 mg Potassium Chloride (K-Dur) [facility] Last Admin: 08/17/18 09:36 Dose: 20 meq Promethazine HCl (Phenergan) 12.5 mg IV Q6H PRN PRN PRN Reason: NAUSEA/VOMITING Simvastatin (Zocor) 40 mg PO QHS [facility] Last Admin: 08/16/18 22:11 Dose: 40 mg Sodium Chloride () 5 - 30 ml IV UD PRN PRN Reason: SALINE FLUSH Last Admin: 08/17/18 09:49 Dose: 10 ml Trazodone HCl (Desyrel) 50 mg PO QHS [facility] Last Admin: 08/16/18 21:10 Dose: 50 mg Medical Necessity - Tobacco Use Smoking Status: Former smoker Tobacco Use: Non-smoker Assessment/Plan All Active Problems (Last Reviewed 07/17/18 @ 08:58 by Jethro Dozier MD) Preop cardiovascular exam (Acute) Skin tear of right lower leg without complication (Acute) Cellulitis (Resolved) Fissure in skin of foot (Acute) Hypokalemia (Resolved) 1. Sepsis due to UTI and community acquired pneumonia * SIRS crieria today is 1/4 (leucocytosis). Tachypnea has resolved * wbc trended down to 13.8 * on IV ceftriaxone and azithromycin * CXR showed evidence of right middle lobe pneumonia. Brain CT was negative. * Urinalysis showed leukocyte esterase of 100, WBC of 10-25 and RBC of 10-25 as well as occult blood of 250, 0 bacteria. * Outpatient urinary culture grew to [place] which is resistant to ceftriaxone and azithromycin. However we are not aware of what it is sensitive to. Urine cultures taken during admission is still pending. * Continue current antibiotics and adjust as per urine and blood cultures. * on breathing treatments * 2.Acute complicated UTI: as mentioed above under 1. Urine culture pending. On IV ceftriaxone 3. Community acquired pneumonia * as under 1. respiratory panel grew rhinovirus. strep and legionella Ag were negative * blood culture pending * CXR as documented under 1. * on IV ceftriaxone and azithromycin * 4. HFpEF * on Lasix, statin and aspirin as well as losartan. and metoprolol 5. Hypokalemia: K ois 3.2. Will replace and monitor 6. diabetes mellitus: on insulin lantus 75 IU nightly and insulin sliding scale. also on sitagliptin, invokana and trulicity. Accu-Cheks before meals at bedtime. 7. CAD: On aspirin and statin and losartan and metoprolol 8. Hypertension: fairly controlled. On losartan and furosemide. labetalol prn 9. Hyperlipidemia: on statin 10. Denies any depression: On paroxetine. 7. Chronic bilateral lower extremity edema. Familia wraps on both lower extremities. On furosemide. 8. EH: on CPAP qhs Prophylaxis: Lovenox Gi prophylaxis: famotidine Code status: full code. Code Visit Inpatient E&M: 08853 [facility] Hosp L3
[2018-08-17 10:51] LABS: Bedside Glucose 187 mg/dL (70-110)
[2018-08-17] MEDS: Insulin Lispro 100 UNIT/ML INSULN.PEN SC ×3 (12:02→22:04)
[2018-08-17 17:01] LABS: Bedside Glucose 153 mg/dL (70-110)
[2018-08-17] MEDS: traZODone 50 MG Tablet PO (21:54)
[2018-08-17 22:10] LABS: Bedside Glucose 207 mg/dL (70-110)
[2018-08-18] VITALS (9 sets, daily range): BP systolic 143–166; BP diastolic 53–73; PULSE 64–74; RESP 16–19; TEMP 36.8–37.1; O2SAT 94–98
--- NOTE | 2018-08-18 02:29 | NURSING ---
Applied 2L via nc d/t pts sleep apnea, does not have cpap here, does not wear it at home, refuses it.
--- NOTE | 2018-08-18 03:48 | NURSING ---
Pt removed O2 n/c.
[2018-08-18 05:41] LABS: Bedside Glucose 121 mg/dL (70-110)
[2018-08-18 06:16] LABS: Absolute Lymphocyte Count 2.62 X10^3/ul (0.83-4.51); Absolute Neutrophil Count 6.9 X10^3/uL (2.0-7.7); Basophil# 0.02 X10^3/uL; Basophil% 0.2 % (0-1); Eosinophil# 0.33 X10^3/uL; Eosinophils% 2.9 % (0-5); Hematocrit 39.2 % (40-54); Hemoglobin 12.9 g/dl (13.0-16.5); Lymphocyte # 2.62 X10^3/ul (4.0); Lymphocyte % 22.9 % (19-41); Mean Corp Hgb Conc 32.9 g/gl (32-36); Mean Corpuscular Hgb 30.3 pg (27.0-32.0); Mean Platelet Vol. 9.7 fl (6.2-12.0); Monocyte# 1.58 X10^3/uL; Monocyte% 13.8 % (0-10); Neutrophil # 6.85 X10^3/uL (2.7-7.7); Platelet Count 304 K/mm3 (150-450); RBC Distribution Width CV 13.7 % (11.6-14.6); RBC Distribution Width SD 45.8 fl (35.1-43.9); Red Blood Count 4.26 M/mm3 (4.6-6.2); White Blood Count 11.4 K/mm3 (4.4-11.0)
[2018-08-18 06:18] LABS: Differential Indicated SCAN CRITERIA MET; POSITIVE COUNT NO; POSITIVE DIFFERENTIAL YES; POSITIVE MORPHOLOGY NO
[2018-08-18 06:32] LABS: Anion Gap 9 (5-15); BUN 16 mg/dL (7-18); BUN/Creat Ratio 21.2 RATIO (10-20); Calcium,Total 8.7 mg/dL (8.5-10.1); Chloride 102 mmol/L (98-107); Creatinine, Serum 0.75 mg/dL (0.70-1.30); EST Glomerular Filtration Rate 108 mL/min (>60); Est Glom Filt Rate - Afr Amer 130 mL/min (>60); Estimated Creatinine Clearance 63.65 ml/min; Glucose 115 mg/dL (74-106); Potassium 3.5 mmol/L (3.5-5.1); Sodium Level 140 mmol/L (136-145)
[2018-08-18] MEDS: Levothyroxine 112 MCG Tablet PO (06:47)
[2018-08-18] MEDS: Menthol/Lanolin/Calamine/Znox 113 GM Tube 1 APPLIC TOPICAL ×3 (06:47→22:53)
[2018-08-18] MEDS: Ipratropium/Albuterol Sulfate 3 ML AMPUL.NEB INHALATION ×4 (06:53→23:07)
[2018-08-18] MEDS: 0.9% NaCl Peripheral Flush Adult/Peds IV (08:36)
[2018-08-18] MEDS: Ceftriaxone 1 GM/50 ML BAG IV (08:36)
[2018-08-18] MEDS: Glucerna Shake 120 ML LIQUID PO ×4 (08:36→22:53)
[2018-08-18] MEDS: Metoprolol Tartrate 25 MG Tablet PO ×2 (08:39→22:24)
[2018-08-18] MEDS: Famotidine 20 MG Tablet PO ×2 (08:39→22:29)
[2018-08-18] MEDS: Enoxaparin 40 MG/0.4 ML Syringe SC ×2 (08:40→22:24)
[2018-08-18] MEDS: Gabapentin 300 MG Capsule PO ×2 (08:40→17:29)
[2018-08-18] MEDS: Losartan Potassium 100 MG Tablet PO (08:40)
[2018-08-18] MEDS: guaiFENesin 1,200 MG Tablet 1200 MG PO ×2 (08:40→22:29)
[2018-08-18] MEDS: Allopurinol 100 MG Tablet PO (08:40)
[2018-08-18] MEDS: Divalproex Sodium 250 MG Tablet 500 MG PO ×2 (08:40→22:29)
[2018-08-18] MEDS: Aspirin 81 MG TAB.CHEW PO (08:40)
[2018-08-18] MEDS: Furosemide 40 MG/4 ML Vial IV ×2 (08:41→17:28)
--- NOTE | 2018-08-18 09:08 | PCM.PN.HOSP ---
Subjective: Patient seen and examined. He is much more alert and has no complaints this morning. He denies any fever or chills, any cough or chest pain, shortness of breath, abdominal pain, diarrhea vomiting. According to his nurses, patient was quite inappropriate with staff yesterday. 12 point review of systems otherwise negative. Labs and vitals reviewed. Vitals/I&O's: Vital Signs Temp Pulse Resp BP Pulse Ox 98.3 F 69 18 166/73 H 96 08/18/18 08:34 08/18/18 08:39 08/18/18 08:34 08/18/18 08:34 08/18/18 08:34 Oxygen Delivery Method Room Air Weight: 265 lb 3.457 oz Body Mass Index (BMI) 40.1 Finger Stick Blood Glucose 166 Intake and Output for Last 24 Hours 08/16/18 08/17/18 08/18/18 23:59 23:59 23:59 Intake Total 2946 / 2946 1330 / 1330 500 / 500 Balance 2946 / 2946 1330 / 1330 500 / 500 General: Alert, Oriented x3, Cooperative, No apparent distress, - - very hard of hearing HEENT: Atraumatic, PERRLA, EOMI, Normocephalic Oral: Moist Mucosa Neck: Supple, No JVD, Negative Carotid Bruits Lungs: - - mildly diminished breath sounds bibasally Cardiovascular: Regular rate, Regular Rhythm, Normal S1, Normal S2, No murmurs Abdomen: Bowel Sounds Present, Soft, Non Tender, Non-Distended, No Hepato-splenomegaly Extremities: No clubbing, No cyanosis, No edema, Capillary Refill Less than 3 Seconds Skin: No rashes, No breakdown Musculoskeletal: No Tenderness to Palpation of Joints or Extremities Lymphatic: No Cervical, Supraclavicular, or Inguinal Adenopathy Neurological: Cranial nerves II-XII grossly intact, Neuro grossly intact, Motor Exam 5/5 strength throughout Psych/Mental Status: Normal Affect, Appropriate, Alert and oriented to time, place, person, mood and affect Microbiology Past 72 Hours 08/16/18 04:19 Urine, Catheterized Urine Culture - Final Culture exhibits no growth. 08/16/18 14:05 Sputum, Expectorated/Coughed Gram Stain - Final 08/16/18 14:05 Sputum, Expectorated/Coughed Respiratory Culture - Preliminary Appears to be normal respiratory yasir. Further studies to follow. 08/16/18 09:25 Mucosa - Nasopharyngeal Respiratory Panel (PCR) - Final Rhinovirus 08/16/18 04:19 Urine Catheter - Catheter Legionella Antigen - Final 08/16/18 04:19 Urine Catheter - Catheter Streptococcus pneumoniae Antigen (M - Final Laboratory Results 08/17/18 10:37: POC Glucose 187 H 08/17/18 16:50: POC Glucose 153 H 08/17/18 21:52: POC Glucose 207 H 08/18/18 05:36: POC Glucose 121 H 08/18/18 05:47: WBC 11.4 H, RBC 4.26 L, Hgb 12.9 L, Hct 39.2 L, MCV 92.0, MCH 30.3, MCHC 32.9, RDW 13.7, RDW Differential 45.8 H, Plt Count 304, MPV 9.7, Immature Gran % (Auto) 0.200, Neut % (Auto) 60.0, Lymph % (Auto) 22.9, [place] % (Auto) 13.8 H, Eos % (Auto) 2.9, Baso % (Auto) 0.2, Absolute Neuts (auto) 6.9, Absolute Lymphs (auto) 2.62, Total Counted Not Reportable 08/18/18 05:47: Sodium 140, Potassium 3.5, Chloride 102, Carbon Dioxide 29.0, Anion Gap 9, BUN 16, Creatinine 0.75, Estim Creat Clear Calc 63.65, Est GFR (MDRD) Af Amer 130, Est GFR (MDRD) Non-Af 108, BUN/Creatinine Ratio 21.2 H, Glucose 115 H, Calcium 8.7 Current Medications Acetaminophen (Tylenol) 650 mg PO Q6H PRN PRN PRN Reason: Mild Pain (scale 0-3)/T>100.7 Last Admin: 08/16/18 19:36 Dose: 650 mg Al Hydroxide/Mg Hydroxide (Mylanta Ii) 30 ml PO Q6H PRN PRN PRN Reason: Gastric burning Albuterol Sulfate (Ventolin Aerosols) 2.5 mg INHALATION Q2H PRN PRN PRN Reason: SHORTNESS OF BREATH Albuterol/Ipratropium (Duoneb) 3 ml INHALATION Q4H.RT CHERYL Last Admin: 08/18/18 06:53 Dose: 3 ml Allopurinol (Zyloprim) 100 mg PO DAILY@0800 [facility] Last Admin: 08/18/18 08:40 Dose: 100 mg Aspirin (Aspirin, Baby) 81 mg PO DAILY@0800 [facility] Last Admin: 08/18/18 08:40 Dose: 81 mg Calamine/Phenol (Calmoseptine Ointment) 1 applic TOPICAL TID [facility]; Protocol Last Admin: 08/18/18 06:47 Dose: 1 applicatio Divalproex Sodium (Depakote) 500 mg PO BID [facility] Last Admin: 08/18/18 08:40 Dose: 500 mg Enoxaparin Sodium (Lovenox) 40 mg SC BID [facility] Last Admin: 08/18/18 08:40 Dose: 40 mg Famotidine (Pepcid) 20 mg PO BID [facility] Last Admin: 08/18/18 08:39 Dose: 20 mg Furosemide (Lasix) 40 mg IV BID@1000,1800 [facility] Last Admin: 08/18/18 08:41 Dose: 40 mg [facility]) [facility] Last Admin: 08/18/18 08:40 Dose: 300 mg Guaifenesin (Mucinex) 1,200 mg PO BID [facility] Last Admin: 08/18/18 08:40 Dose: 1,200 mg Guaifenesin/Codeine Phosphate (Robitussin Ac) 10 ml PO Q6H PRN PRN PRN Reason: COUGH Azithromycin 500 mg/ Dextrose 255 mls @ 250 mls/hr IV Q24 [facility] Stop: 08/18/18 11:02 Last Admin: 08/17/18 10:34 Dose: 250 mls/hr Ceftriaxone Sodium (Rocephin) 1 gm in 50 mls @ 100 mls/hr IV Q24H [facility] Last Admin: 08/18/18 08:36 Dose: 100 mls/hr Insulin Glargine (Lantus (Bkc)) 75 units SC QHS [facility] Last Admin: 08/17/18 22:02 Dose: 75 u Insulin Human Lispro (Humalog Kwikpen (Bkc)) 0 unit SC ACHS [facility]; Protocol Last Admin: 08/18/18 06:04 Dose: Not Given Labetalol HCl (Trandate) 10 mg IV Q4H PRN PRN PRN Reason: SBP>180 mmhg Levothyroxine Sodium (Synthroid) 112 mcg PO DAILY@0600 [facility] Last Admin: 08/18/18 06:47 Dose: 112 mcg Linagliptin (Tradjenta) 5 mg PO DAILY [facility] Losartan Potassium (Cozaar) 100 mg PO DAILY [facility] Last Admin: 08/18/18 08:40 Dose: 100 mg Magnesium Hydroxide (Milk Of Magnesia) 30 ml PO DAILY PRN PRN PRN Reason: Constipation Metoprolol Tartrate (Lopressor (Beta Romel)) 25 mg PO BID [facility] Last Admin: 08/18/18 08:39 Dose: 25 mg Nutritional Formula (Lactose Free) (Glucerna Shake) 120 ml PO 4X/DAY [facility] Last Admin: 08/18/18 08:36 Dose: 120 ml Ondansetron HCl (Zofran) 4 mg IV Q8H PRN PRN PRN Reason: NAUSEA Paroxetine HCl (Paxil) 40 mg PO DAILY [facility] Last Admin: 08/18/18 08:39 Dose: 40 mg Potassium Chloride (K-Dur) [facility] Last Admin: 08/18/18 08:42 Dose: 20 meq Promethazine HCl (Phenergan) 12.5 mg IV Q6H PRN PRN PRN Reason: NAUSEA/VOMITING Simvastatin (Zocor) 40 mg PO QHS [facility] Last Admin: 08/17/18 21:55 Dose: 40 mg Sodium Chloride () 5 - 30 ml IV UD PRN PRN Reason: SALINE FLUSH Last Admin: 08/18/18 08:36 Dose: 10 ml Trazodone HCl (Desyrel) 50 mg PO QHS [facility] Last Admin: 08/17/18 21:54 Dose: 50 mg Medical Necessity - Tobacco Use Smoking Status: Former smoker Tobacco Use: Non-smoker Assessment/Plan All Active Problems (Last Reviewed 07/17/18 @ 08:58 by Jethro Dozier MD) Preop cardiovascular exam (Acute) Skin tear of right lower leg without complication (Acute) Cellulitis (Resolved) Fissure in skin of foot (Acute) Hypokalemia (Resolved) 1. Sepsis due to UTI and community acquired pneumonia resolving. wbc further down to 11.4 today on IV ceftriaxone and azithromycin. Respiratory panel isolated rhinovirus. Urine culture in the hospital shows no growth. Blood culture still pending. Outpatient urine culture grew Hafnia which is sensitive to PO levofloxacin, and resistant to ceftriaxone. However, patient has responded to ceftriaxone whilst in the hospital. We will continue for now. Blood culture still pending 2.Acute complicated UTI: as mentioned above under 1. Urine culture showed no growth. On IV ceftriaxone 3. Community acquired pneumonia as under 1. respiratory panel grew rhinovirus. strep and legionella Ag were negative blood culture pending CXR as documented under 1. on IV ceftriaxone and azithromycin 4. HFpEF on Lasix, statin and aspirin as well as losartan. and metoprolol 5. Hypokalemia: resolved. K is 3.5 today. 6. diabetes mellitus: on insulin lantus 75 IU nightly and insulin sliding scale. also on sitagliptin, invokana and trulicity. Accu-Cheks before meals at bedtime. sugars fairly controlled 7. CAD: On aspirin and statin and losartan and metoprolol 8. Hypertension: On losartan and furosemide. labetalol prn 9. Hyperlipidemia: on statin 10. depression: On paroxetine. 7. Chronic bilateral lower extremity edema. Familia wraps on both lower extremities. On furosemide. 8. EH: on CPAP qhs Prophylaxis: Lovenox Gi prophylaxis: famotidine Code status: full code. Disposition: awaiting precert to TCU. Code Visit Inpatient E&M: 85923 Subs Hosp L3
--- NOTE | 2018-08-18 09:15 | PN_ITS ---
Subjective: Patient seen and examined. He is much more alert and has no complaints this morning. He denies any fever or chills, any cough or chest pain, shortness of breath, abdominal pain, diarrhea vomiting. According to his nurses, patient was quite inappropriate with staff yesterday. 12 point review of systems otherwise negative. Labs and vitals reviewed. Vitals/I&O's: Vital Signs Temp Pulse Resp BP Pulse Ox 98.3 F 69 18 166/73 H 96 08/18/18 08:34 08/18/18 08:39 08/18/18 08:34 08/18/18 08:34 08/18/18 08:34 Oxygen Delivery Method Room Air Weight: 265 lb 3.457 oz Body Mass Index (BMI) 40.1 Finger Stick Blood Glucose 166 Intake and Output for Last 24 Hours 08/16/18 08/17/18 08/18/18 23:59 23:59 23:59 Intake Total 2946 / 2946 1330 / 1330 500 / 500 Balance 2946 / 2946 1330 / 1330 500 / 500 General: Alert, Oriented x3, Cooperative, No apparent distress, - - very hard of hearing HEENT: Atraumatic, PERRLA, EOMI, Normocephalic Oral: Moist Mucosa Neck: Supple, No JVD, Negative Carotid Bruits Lungs: - - mildly diminished breath sounds bibasally Cardiovascular: Regular rate, Regular Rhythm, Normal S1, Normal S2, No murmurs Abdomen: Bowel Sounds Present, Soft, Non Tender, Non-Distended, No Hepato- splenomegaly Extremities: No clubbing, No cyanosis, No edema, Capillary Refill Less than 3 Seconds Skin: No rashes, No breakdown Musculoskeletal: No Tenderness to Palpation of Joints or Extremities Lymphatic: No Cervical, Supraclavicular, or Inguinal Adenopathy Neurological: Cranial nerves II-XII grossly intact, Neuro grossly intact, Motor Exam 5/5 strength throughout Psych/Mental Status: Normal Affect, Appropriate, Alert and oriented to time, place, person, mood and affect Microbiology Past 72 Hours 08/16/18 04:19 Urine, Catheterized Urine Culture - Final Culture exhibits no growth. 08/16/18 14:05 Sputum, Expectorated/Coughed Gram Stain - Final 08/16/18 14:05 Sputum, Expectorated/Coughed Respiratory Culture - Preliminary Appears to be normal respiratory yasir. Further studies to follow. 08/16/18 09:25 Mucosa - Nasopharyngeal Respiratory Panel (PCR) - Final Rhinovirus 08/16/18 04:19 Urine Catheter - Catheter Legionella Antigen - Final 08/16/18 04:19 Urine Catheter - Catheter Streptococcus pneumoniae Antigen (M - Final Laboratory Results 08/17/18 10:37: POC Glucose 187 H 08/17/18 16:50: POC Glucose 153 H 08/17/18 21:52: POC Glucose 207 H 08/18/18 05:36: POC Glucose 121 H 08/18/18 05:47: WBC 11.4 H, RBC 4.26 L, Hgb 12.9 L, Hct 39.2 L, MCV 92.0, MCH 30.3, MCHC 32.9, RDW 13.7, RDW Differential 45.8 H, Plt Count 304, MPV 9.7, Immature Gran % (Auto) 0.200, Neut % (Auto) 60.0, Lymph % (Auto) 22.9, [place] % (Auto) 13.8 H, Eos % (Auto) 2.9, Baso % (Auto) 0.2, Absolute Neuts (auto) 6.9, Absolute Lymphs (auto) 2.62, Total Counted Not Reportable 08/18/18 05:47: Sodium 140, Potassium 3.5, Chloride 102, Carbon Dioxide 29.0, Anion Gap 9, BUN 16, Creatinine 0.75, Estim Creat Clear Calc 63.65, Est GFR (MDRD) Af Amer 130, Est GFR (MDRD) Non-Af 108, BUN/Creatinine Ratio 21.2 H, Glucose 115 H, Calcium 8.7 Current Medications Acetaminophen (Tylenol) 650 mg PO Q6H PRN PRN PRN Reason: Mild Pain (scale 0-3)/T>100.7 Last Admin: 08/16/18 19:36 Dose: 650 mg Al Hydroxide/Mg Hydroxide (Mylanta Ii) 30 ml PO Q6H PRN PRN PRN Reason: Gastric burning Albuterol Sulfate (Ventolin Aerosols) 2.5 mg INHALATION Q2H PRN PRN PRN Reason: SHORTNESS OF BREATH Albuterol/Ipratropium (Duoneb) 3 ml INHALATION Q4H.RT CHERYL Last Admin: 08/18/18 06:53 Dose: 3 ml Allopurinol (Zyloprim) 100 mg PO DAILY@0800 [facility] Last Admin: 08/18/18 08:40 Dose: 100 mg Aspirin (Aspirin, Baby) 81 mg PO DAILY@0800 [facility] Last Admin: 08/18/18 08:40 Dose: 81 mg Calamine/Phenol (Calmoseptine Ointment) 1 applic TOPICAL TID [facility]; Protocol Last Admin: 08/18/18 06:47 Dose: 1 applicatio Divalproex Sodium (Depakote) 500 mg PO BID [facility] Last Admin: 08/18/18 08:40 Dose: 500 mg Enoxaparin Sodium (Lovenox) 40 mg SC BID [facility] Last Admin: 08/18/18 08:40 Dose: 40 mg Famotidine (Pepcid) 20 mg PO BID [facility] Last Admin: 08/18/18 08:39 Dose: 20 mg Furosemide (Lasix) 40 mg IV BID@1000,1800 [facility] Last Admin: 08/18/18 08:41 Dose: 40 mg [facility]) [facility] Last Admin: 08/18/18 08:40 Dose: 300 mg Guaifenesin (Mucinex) 1,200 mg PO BID [facility] Last Admin: 08/18/18 08:40 Dose: 1,200 mg Guaifenesin/Codeine Phosphate (Robitussin Ac) 10 ml PO Q6H PRN PRN PRN Reason: COUGH Azithromycin 500 mg/ Dextrose 255 mls @ 250 mls/hr IV Q24 [facility] Stop: 08/18/18 11:02 Last Admin: 08/17/18 10:34 Dose: 250 mls/hr Ceftriaxone Sodium (Rocephin) 1 gm in 50 mls @ 100 mls/hr IV Q24H [facility] Last Admin: 08/18/18 08:36 Dose: 100 mls/hr Insulin Glargine (Lantus (Bkc)) 75 units SC QHS [facility] Last Admin: 08/17/18 22:02 Dose: 75 u Insulin Human Lispro (Humalog Kwikpen (Bkc)) 0 unit SC ACHS [facility]; Protocol Last Admin: 08/18/18 06:04 Dose: Not Given Labetalol HCl (Trandate) 10 mg IV Q4H PRN PRN PRN Reason: SBP>180 mmhg Levothyroxine Sodium (Synthroid) 112 mcg PO DAILY@0600 [facility] Last Admin: 08/18/18 06:47 Dose: 112 mcg Linagliptin (Tradjenta) 5 mg PO DAILY [facility] Losartan Potassium (Cozaar) 100 mg PO DAILY [facility] Last Admin: 08/18/18 08:40 Dose: 100 mg Magnesium Hydroxide (Milk Of Magnesia) 30 ml PO DAILY PRN PRN PRN Reason: Constipation Metoprolol Tartrate (Lopressor (Beta Romel)) 25 mg PO BID [facility] Last Admin: 08/18/18 08:39 Dose: 25 mg Nutritional Formula (Lactose Free) (Glucerna Shake) 120 ml PO 4X/DAY [facility] Last Admin: 08/18/18 08:36 Dose: 120 ml Ondansetron HCl (Zofran) 4 mg IV Q8H PRN PRN PRN Reason: NAUSEA Paroxetine HCl (Paxil) 40 mg PO DAILY [facility] Last Admin: 08/18/18 08:39 Dose: 40 mg Potassium Chloride (K[facility]Dur) [facility] Last Admin: 08/18/18 08:42 Dose: 20 meq Promethazine HCl (Phenergan) 12.5 mg IV Q6H PRN PRN PRN Reason: NAUSEA/VOMITING Simvastatin (Zocor) 40 mg PO QHS [facility] Last Admin: 08/17/18 21:55 Dose: 40 mg Sodium Chloride () 5 - 30 ml IV UD PRN PRN Reason: SALINE FLUSH Last Admin: 08/18/18 08:36 Dose: 10 ml Trazodone HCl (Desyrel) 50 mg PO QHS [facility] Last Admin: 08/17/18 21:54 Dose: 50 mg Medical Necessity - Tobacco Use Smoking Status: Former smoker Tobacco Use: Non-smoker Assessment/Plan All Active Problems (Last Reviewed 07/17/18 @ 08:58 by Jethro Dozier MD) Preop cardiovascular exam (Acute) Skin tear of right lower leg without complication (Acute) Cellulitis (Resolved) Fissure in skin of foot (Acute) Hypokalemia (Resolved) 1. Sepsis due to UTI and community acquired pneumonia * resolving. * wbc further down to 11.4 today * on IV ceftriaxone and azithromycin. * Respiratory panel isolated rhinovirus. Urine culture in the hospital shows no growth. Blood culture still pending. * Outpatient urine culture grew Hafnia which is sensitive to PO levofloxacin, and resistant to ceftriaxone. * However, patient has responded to ceftriaxone whilst in the hospital. We will continue for now. * Blood culture still pending * * 2.Acute complicated UTI: * as mentioned above under 1. Urine culture showed no growth. * On IV ceftriaxone 3. Community acquired pneumonia * as under 1. respiratory panel grew rhinovirus. strep and legionella Ag were negative * blood culture pending * CXR as documented under 1. * on IV ceftriaxone and azithromycin * 4. HFpEF * on Lasix, statin and aspirin as well as losartan. and metoprolol 5. Hypokalemia: resolved. K is 3.5 today. 6. diabetes mellitus: * on insulin lantus 75 IU nightly and insulin sliding scale. also on sitagliptin, invokana and trulicity. * Accu-Cheks before meals at bedtime. * sugars fairly controlled 7. CAD: On aspirin and statin and losartan and metoprolol 8. Hypertension: On losartan and furosemide. labetalol prn 9. Hyperlipidemia: on statin 10. depression: On paroxetine. 7. Chronic bilateral lower extremity edema. Familia wraps on both lower extremities. On furosemide. 8. EH: on CPAP qhs Prophylaxis: Lovenox Gi prophylaxis: famotidine Code status: full code. Disposition: awaiting precert to TCU. Code Visit Inpatient E&M: [id number] Subs Hosp L3
[2018-08-18] MEDS: Empagliflozin 25 MG Tablet PO (10:03)
[2018-08-18] MEDS: LINAGLIPTIN 5 MG TABLET PO (10:03)
[2018-08-18] MEDS: Insulin Lispro 100 UNIT/ML INSULN.PEN SC ×3 (11:52→22:24)
[2018-08-18 12:16] LABS: Bedside Glucose 246 mg/dL (70-110)
[2018-08-18 17:10] LABS: Bedside Glucose 195 mg/dL (70-110)
[2018-08-18] MEDS: traZODone 50 MG Tablet PO (22:29)
[2018-08-18] MEDS: Acetaminophen 325 MG Tablet 650 MG PO (22:29)
[2018-08-18 22:41] LABS: Bedside Glucose 245 mg/dL (70-110)
[2018-08-19 05:56] LABS: Absolute Lymphocyte Count 2.41 X10^3/ul (0.83-4.51); Absolute Neutrophil Count 4.2 X10^3/uL (2.0-7.7); Basophil# 0.03 X10^3/uL; Basophil% 0.4 % (0-1); Eosinophils% 4.9 % (0-5); Hematocrit 42.6 % (40-54); Lymphocyte # 2.41 X10^3/ul (4.0); Lymphocyte % 29.4 % (19-41); Mean Corp Hgb Conc 32.9 g/gl (32-36); Mean Corpuscular Hgb 30.2 pg (27.0-32.0); Mean Corpuscular Volume 91.8 fL (80-94); Mean Platelet Vol. 9.7 fl (6.2-12.0); Monocyte# 1.12 X10^3/uL; Monocyte% 13.7 % (0-10); Neutrophil % 51.1 % (47-70); Platelet Count 419 K/mm3 (150-450); RBC Distribution Width CV 13.6 % (11.6-14.6); RBC Distribution Width SD 44.9 fl (35.1-43.9); Red Blood Count 4.64 M/mm3 (4.6-6.2); White Blood Count 8.2 K/mm3 (4.4-11.0)
[2018-08-19 05:57] LABS: Anion Gap 10 (5-15); BUN 21 mg/dL (7-18); BUN/Creat Ratio 27.1 RATIO (10-20); Calcium,Total 9.4 mg/dL (8.5-10.1); Chloride 101 mmol/L (98-107); Creatinine, Serum 0.77 mg/dL (0.70-1.30); EST Glomerular Filtration Rate 105 mL/min (>60); Est Glom Filt Rate - Afr Amer 127 mL/min (>60); Estimated Creatinine Clearance 63.65 ml/min; Glucose 151 mg/dL (74-106); Potassium 3.6 mmol/L (3.5-5.1); Sodium Level 140 mmol/L (136-145)
[2018-08-19 06:00] VITALS: BP 125/67; PULSE 61; RESP 16; TEMP 37.1; O2SAT 95
[2018-08-19 06:21] LABS: POSITIVE COUNT NO; POSITIVE DIFFERENTIAL NO; POSITIVE MORPHOLOGY NO
[2018-08-19] MEDS: Levothyroxine 112 MCG Tablet PO (06:28)
[2018-08-19] MEDS: Insulin Lispro 100 UNIT/ML INSULN.PEN SC ×2 (06:28→11:52)
[2018-08-19] MEDS: Menthol/Lanolin/Calamine/Znox 113 GM Tube 1 APPLIC TOPICAL (06:28)
[2018-08-19 06:46] LABS: Bedside Glucose 172 mg/dL (70-110)
[2018-08-19 06:56] VITALS: PULSE 62; RESP 20; O2SAT 93
[2018-08-19] MEDS: Ipratropium/Albuterol Sulfate 3 ML AMPUL.NEB INHALATION ×2 (06:56→11:24)
[2018-08-19 08:19] VITALS: BP 115/52; PULSE 58; RESP 16; TEMP 36.9; O2SAT 95
[2018-08-19] MEDS: Aspirin 81 MG TAB.CHEW PO (08:34)
[2018-08-19] MEDS: 0.9% NaCl Peripheral Flush Adult/Peds IV (08:37)
[2018-08-19] MEDS: Gabapentin 300 MG Capsule PO (08:40)
[2018-08-19] MEDS: Ceftriaxone 1 GM/50 ML BAG IV (08:40)
[2018-08-19] MEDS: Allopurinol 100 MG Tablet PO (08:40)
--- NOTE | 2018-08-19 09:55 | PCM.TXEXTCAR ---
- Diet 08/16/18 06:49 Diet: Calorie Controlled Is pt able to select menu?: No How many daily calories?: 1800 calorie - Routine Orders/Code Status Suppository Type: Dulcolax 10mg Suppository Frequency: Daily PRN - Wound(s) right knee Wound Type: Abrasion Right top of foot Wound Type: Abrasion right 2nd toe, underneath Wound Type: cracked area - Therapies Weight Bearing: Weight bearing as tolerated Extremity Affected:: Bilateral Lower Physical Therapy: Eval and Treat Occupational Therapy: Eval and Treat Speech Therapy: Eval and Treat - Allergies/Procedures Done in Hospital Allergies/Adverse Reactions: Allergies cocaine Allergy (Verified 08/16/18 02:59) Unknown atorvastatin calcium [From Lipitor] Adverse Reaction (Verified 08/16/18 02:59) Pain in joints haloperidol [From Haldol] Adverse Reaction (Verified 08/16/18 02:59) Other WENT CRAZY morphine Adverse Reaction (Verified 08/16/18 02:59) Other extremely aggitated oxycodone [From OxyIR] Adverse Reaction (Verified 08/16/18 02:59) Pain in joints extremely aggitated prednisone Adverse Reaction (Verified 08/16/18 02:59) ANXIOUS, INSOMNIA STERIODS Adverse Reaction (Uncoded 08/16/18 02:59) Other ANXIETY INSOMNIA - Type of Care/Length of Stay Estimated LOS: Convalescent Care Less Than 30 days Type of Care Needed: Skilled Rehab Potential: Good Prognosis: Good - Additional Orders/Day of Discharge Day of Discharge: 08/19/18 - Dietary and Speech Recommendations Dietitian Recommendations/Changes: Rec diet change to 1800 raya Cardiac / low sodium d/t pmhx and edema - Follow Up Care Primary Care Physician: Gil Wheeler Chi, MD [Primary Care Provider] - Please follow up with your Primary Care Physician in: in 2 weeks Please Follow Up With: Jethro Dozier MD When: in 4 weeks
--- NOTE | 2018-08-19 10:01 | DS.PCM_ITS ---
Discharge Date and Diagnosis - Problem List Patient Problems: Active and Suspected Problems (Last Reviewed 07/17/18 @ 08:58 by Jethro Dozier MD) Acute delirium (Acute) Weakness (Acute) Urinary tract infection (Acute) Date of Admission: 08/16/18 Date of Discharge: 08/19/18 - Primary Discharge Diagnosis Sepsis due to recent UTI and right middle lobe community acquired pneumonia most probably viral but suspicion of bacterial infection. - Secondary Discharge Diagnosis Chronic Problems (Last Reviewed 07/17/18 @ 08:58 by Jethro Dozier MD) Abnormal electrocardiogram (Chronic) Non-rheumatic tricuspid valve insufficiency (Chronic) Chronic diastolic (congestive) heart failure (Chronic) Hyperlipidemia (Chronic) Hypertension (Chronic) Chronic acquired lymphedema (Chronic) Hospital Course and Treatment Summary of Care Provided: The patient is a 73 year old gentleman who was admitted with confusion and weakness suggestive of acute encephalopathy patient complained of passing blood in the urine. He also had left lumbar back pain which radiates to front. Patient is hard of hearing but as I understand he follows urologist for testicular cyst. Patient complain of burning micturition. And recently had CT abdomen and pelvis without contrast and showed no acute finding but nonobstructing bilateral nephrolithiasis, stable from previous exam of September 2016. Patient was recently treated with antibiotic for bronchitis and recent diarrhea. The patient was seen and examined today. HEENT: DEBBIE ZAMAN Hard of hearing, patient uses hearing aid on left ear. Lungs air entry diminished bilaterally. Clear to auscultation. Heart: S1-S2 regular no murmur gallop rub. Back: Lumbar surgical scar present tenderness on the left renal angle and paraspinal muscle. Neuro: Alert awake oriented x3 Skin: Both lower legs wrapped with Familia wrap bandage and had superficial skin erosions venous dermatitis; healing. 1. Sepsis due to recent UTI and right middle lobe community acquired pneumonia most probably viral but suspicion of bacterial infection. * Leukocytosis which improved and resolved. * on IV ceftriaxone and azithromycin. * Respiratory panel isolated rhinovirus. Urine culture in the hospital shows no growth. Sputum culture shows mixed normal respiratory yasir. * Outpatient urine culture grew Hafnia which is sensitive to PO levofloxacin, and resistant to ceftriaxone. * However, patient has responded to ceftriaxone whilst in the hospital. Patient was discharged on cefdinir 300 mg twice daily for 3 more days to complete a total of 7 days. 2.Acute complicated UTI: * as mentioned above under 1. Urine culture showed no growth. * On IV ceftriaxone S27. 3. HFpEF * on Lasix, statin and aspirin as well as losartan. and metoprolol Hypokalemia: resolved. 6. diabetes mellitus: * on insulin lantus 75 IU nightly and insulin sliding scale. also on sitagliptin, invokana and trulicity. * Accu-Cheks before meals at bedtime. * sugars fairly controlled. Patient is care for urinary incontinence as glucosuria associated with Invokana at risk for fungal infection. 7. CAD: On aspirin and statin and losartan and metoprolol 8. Hypertension: On losartan and furosemide. labetalol prn 9. Hyperlipidemia: on statin 10. depression: On paroxetine. 7. Chronic bilateral lower extremity edema. Familia wraps on both lower extremities. On furosemide. 8. EH: on CPAP qhs Prophylaxis: Lovenox Discharge medication reconciliation done. Discharge instructions completed. Patient is being transferred to TCU. Total time spent, exact 35 minutes on discharge meds reconciliation, examination, review of imaging and blood test and discussion with the patient on follow-up instructions. Home Medications: Medications to take at Discharge Paroxetine HCl [Paxil] 40 mg PO DAILY 09/27/16 Potassium Chloride [K-Dur] 20 meq PO BID 09/27/16 Simvastatin [Zocor] 40 mg PO QHS 09/27/16 Sitagliptin Phosphate [Januvia] 100 mg PO DAILY 09/27/16 Torsemide [Demadex] 20 mg PO BID 09/27/16 traZODone [Desyrel] 50 mg PO QHS 09/27/16 Divalproex Sodium [Depakote] 500 mg PO BID 08/14/17 Allopurinol 100 mg PO DAILY 05/17/18 Dulaglutide [Trulicity] 1.5 mg SQ QWEEK 05/17/18 gabapentin 300 mg capsule 300 mg PO BID cap 07/17/18 levothyroxine 100 mcg capsule 112 mcg PO DAILY 07/17/18 Aspirin [Aspirin, Baby] 81 mg PO DAILY@0800 08/16/18 Canagliflozin [Invokana] 300 mg PO DAILY 08/16/18 Diclofenac Sodium 25 mg PO BID 08/16/18 Guaifenesin/Codeine Phosphate [Codeine-Guaifen 10-100 mg/5 ml] 10 ml PO Q6H PRN 08/16/18 Metoprolol Tartrate [Lopressor (beta torie)] 12.5 mg PO BID 08/16/18 Acetaminophen [Tylenol Tablet] 650 mg PO Q6H PRN PRN tablet 08/19/18 Albuterol Aerosols [Ventolin Aerosols] 2.5 mg INHALATION Q4H PRN PRN vial.neb. 08/19/18 Cefdinir 300 mg PO BID #0 08/19/18 Insulin Lispro [Humalog KwikPen] See Protocol SC ACHS 08/19/18 Ipratropium/Albuterol Sulfate [Duoneb] 3 ml INHALATION Q4H.RT 08/19/18 Losartan Potassium 100 mg PO DAILY 08/19/18 Menthol/Lanolin/Calamine/Znox [Calmoseptine Ointment] 1 applic TOPICAL TID 08/19/18 Primary Care Physician: Gil Wheeler Chi, MD [Primary Care Provider] - Please follow up with your Primary Care Physician in: in 2 weeks Please Follow Up With: Jethro Dozier MD When: in 4 weeks Medical Necessity - Tobacco Use Smoking Status: Former smoker Tobacco Use: Non-smoker Meaningful Use Info Meaningful Use Diagnoses (Choose all that apply): None applicable Code Visit Inpatient E&M: 08688 Disch Hosp
[2018-08-19] MEDS: Losartan Potassium 100 MG Tablet PO (10:03)
[2018-08-19] MEDS: Divalproex Sodium 250 MG Tablet 500 MG PO (10:03)
[2018-08-19] MEDS: Glucerna Shake 120 ML LIQUID PO (10:03)
[2018-08-19 10:04] VITALS: PULSE 64
[2018-08-19] MEDS: Empagliflozin 25 MG Tablet PO (10:04)
[2018-08-19] MEDS: Metoprolol Tartrate 25 MG Tablet PO (10:04)
[2018-08-19] MEDS: Furosemide 40 MG/4 ML Vial IV (10:04)
[2018-08-19] MEDS: guaiFENesin 1,200 MG Tablet 1200 MG PO (10:05)
[2018-08-19] MEDS: Famotidine 20 MG Tablet PO (10:05)
[2018-08-19] MEDS: LINAGLIPTIN 5 MG TABLET PO (10:05)
[2018-08-19] MEDS: Enoxaparin 40 MG/0.4 ML Syringe SC (10:13)
--- NOTE | 2018-08-19 10:56 | CASEMGMT ---
Addendum entered by Ttaa Kasper 08/19/18 11:42: SW updated pt of approval to go to TCU. Pt states he would like this worker to call his to update her. SW placed a call to pt's Mayda and updated her that pt will be going to TCU today. Mayda states understanding and she is almost at [facility]. Original Note: Social Work Note Per previous notes, pre-cert was obtained Sunday. JENNIFER placed a call to Desiree in TCU to ask if pre-cert is still good today. JENNIFER received call from Di who states she spoke with Lee and pre-cert is still good for today and pt is able to discharge to TCU today. SW updated RN Jorge Luis and Audit Lead Maddie of this. Physician has put in discharge orders. Plan: Discharge to TCU today Tata Kasper PSYCHIATRIC TECHNICIAN ASSISTANT, DROP WIRE HANGER
[2018-08-19 11:24] VITALS: PULSE 62; RESP 20
[2018-08-19 12:05] LABS: Bedside Glucose 243 mg/dL (70-110)
== END 2018-08-19 13:50 | disposition skilled nursing facility (03) | DRG 871 ==
LOC: ED 05:47 → MS3 05:59 → MS2 06:20
PROVIDERS: Student in an Organized Health Care Education/Training Program; Admitting Provider Family Medicine; Emergency Provider Emergency Medicine; Family Provider Family Medicine Geriatric Medicine; PCP Family Medicine Geriatric Medicine; Visit Provider Internal Medicine
DX: A41.9 Sepsis, unspecified organism (principal); G93.41 Metabolic encephalopathy; J12.9 Viral pneumonia, unspecified; I50.32 Chronic diastolic (congestive) heart failure; N39.0 Urinary tract infection, site not specified; Z68.41 Body mass index [BMI] 40.0-44.9, adult; E78.5 Hyperlipidemia, unspecified; I11.0 Hypertensive heart disease with heart failure; I89.0 Lymphedema, not elsewhere classified; I36.1 Nonrheumatic tricuspid (valve) insufficiency; E87.6 Hypokalemia; E11.9 Type 2 diabetes mellitus without complications; I25.10 Atherosclerotic heart disease of native coronary artery without angina pectoris; F32.9 Major depressive disorder, single episode, unspecified; G47.33 Obstructive sleep apnea (adult) (pediatric); E66.01 Morbid (severe) obesity due to excess calories; E03.9 Hypothyroidism, unspecified; G89.29 Other chronic pain; M54.9 Dorsalgia, unspecified; L30.4 Erythema intertrigo; Z79.4 Long term (current) use of insulin; Z79.82 Long term (current) use of aspirin; Z79.899 Other long term (current) drug therapy; Z87.891 Personal history of nicotine dependence
CPT/HCPCS: 36415; 70450; 71045; 74176; 80048; 80053; 81001; 82962; 83605; 83735; 85025; 85610; 87040; 87070; 87077; 87086; 87088; 87186; 87205; 87449; 87633; 93005; 94640; 94667; 94668; 97110; 97162; 97166; 97530; 97802; 99285; J7050; P9612; A4216; J1940

== ENCOUNTER 2018-08-19 14:15 | Inpatient (IN) | payer MEDICARE, SELFPAY ==
[2018-08-19 14:24] VITALS: BMI 39.8
[2018-08-19 14:25] VITALS: BP 133/63; PULSE 63; RESP 18; TEMP 36.6; O2SAT 96
[2018-08-19 14:35] VITALS: BMI 39.9
--- NOTE | 2018-08-19 15:35 | NURSING ---
pt arrived from [facility] via bed at 1415
--- NOTE | 2018-08-19 15:42 | CHAPLAIN ---
Type of Pastoral Visit _x__ Initial Visit ___ Follow-up Visit ___ On-call Visit ___ General Patient Visit ___ Spiritual Assessment ___ Family Conference ___ Bereavement ___ Rapid Response ___ Code Blue ___ Other (describe below) Pastoral Care Referral From _x__ Patient ___ Family ___ Nurse ___ Physician ___ Sack Maker ___ Executive Assistant ___ Other (describe below) Sacrament/Intervention _x__ Active listening ___ Anointing ___ Rastafarian ___ Bereavement ___ Communion _x__ Scarlett exploration ___ ___ Life review ___ Prayer ___ Reconciliation ___ Sacrament of Sick _x__ Supportive presence ___ Wedding ___ Other (describe below) Pastoral Comments met this patient and his spouse while in [facility] earlier today; pt and spouse both speak of initial confusion as a result of the infection in patient; pt is open to visits with general car yard supervisor and is glad to talk; [place] is [place]; spouse says that pt has never been anabaptism and does not know if he would want spiritual care and prayer; however spouse believes pt would accept visits and emotional support while he is in TCU; pt speaks of his pleasure at services of hospital
--- NOTE | 2018-08-19 16:51 | NURSING ---
Addendum entered by Skylar Ken 08/19/18 16:53: returned call and will bring in tomorrow. Original Note: message left with regarding our pharmacy does not carry dulaglutide, awaiting return call
[2018-08-19] MEDS: Cefdinir 300 MG Capsule PO (17:49)
[2018-08-19 17:50] VITALS: BP 133/63; PULSE 63
[2018-08-19] MEDS: Metoprolol Tartrate 25 MG Tablet 12.5 MG PO (17:50)
[2018-08-19] MEDS: Divalproex Sodium 250 MG Tablet 500 MG PO (17:50)
[2018-08-19] MEDS: Gabapentin 300 MG Capsule PO (17:50)
[2018-08-19 17:55] LABS: Bedside Glucose 163 mg/dL (70-110)
[2018-08-19] MEDS: Insulin Lispro 100 UNIT/ML INSULN.PEN SC (17:56)
--- NOTE | 2018-08-19 17:59 | NURSING ---
PT IN PRECAUTIONS FOR BELLE VIRUS
--- NOTE | 2018-08-19 20:37 | PCM.HP.STD ---
Problem List (1) Acute delirium Status: Acute (2) Weakness Status: Acute (3) Urinary tract infection Status: Acute (4) Chronic diastolic heart failure Status: Chronic (5) Lymphedema Status: Chronic (6) Diabetes mellitus Status: Chronic (7) GERD (gastroesophageal reflux disease) Status: Chronic (8) Hypothyroidism Status: Chronic (9) Lumbar spinal stenosis Status: Chronic (10) Osteoarthritis of knees, bilateral Status: Chronic (11) Depression Status: Chronic (12) Gout Status: Chronic (13) Neuropathic pain Status: Chronic (14) Hyperlipidemia Status: Chronic Qualifiers: (15) Hypertension Status: Chronic Qualifiers: History of Present Illness Date of Admission: 08/19/18 Chief Complaint: Here for rehabilitation, strengthening, prior to lumbar surgery 08/28/2018. The patient is a 73 year old Male with below past medical history presented to [facility] Emergency Department 08/16/2018 with confusion, weakness. 08/16/2018 CT brain chronic involutional changes, but artifact from cochlear implant. 08/16/2018 EKG normal sinus rhythm, left axis deviation, anterolateral infarct, age undetermined. 08/16/2018 Chest X-ray bilateral atelectasis versus infiltrate, stable mild cardiomegaly. Hematuria 1 day prior, UTI treated by Dr. Wheeler with Rocephin 1GM IV, Normal saline 2 liters IV bolus. Patient weak, confused. Tylenol, Zosyn, IV fluids given. 08/16/2018 Admit to Hospital. Rocephin, Azithromycin, IV fluids for sepsis, urinary tract infection, community acquired pneumonia. 08/18/2018 Outpatient urine culture grew Hafnia Alvei. Despite resistance to Ceftriaxone, patient responded well to Ceftriaxone. Respiratory panel positive rhinovirus. Urinary antigens for strep pneumo, legionella NEGATIVE. 08/19/2018 Admit to TCU with debility, here for rehabilitation, strengthening, prior to lumbar surgery 08/28/2018. Past Medical History Past Medical History (Chronic Problems): Chronic Problems (Last Reviewed 07/17/18 @ 08:58 by Jethro Dozier MD) Chronic diastolic heart failure (Chronic) Lymphedema (Chronic) Diabetes mellitus (Chronic) GERD (gastroesophageal reflux disease) (Chronic) Hypothyroidism (Chronic) Lumbar spinal stenosis (Chronic) Osteoarthritis of knees, bilateral (Chronic) Depression (Chronic) Gout (Chronic) Neuropathic pain (Chronic) Abnormal electrocardiogram (Chronic) Non-rheumatic tricuspid valve insufficiency (Chronic) Chronic diastolic (congestive) heart failure (Chronic) Hyperlipidemia (Chronic) Hypertension (Chronic) Chronic acquired lymphedema (Chronic) Medical History: Medical History (Last Reviewed 07/17/18 @ 08:58 by Jethro Dozier MD) Non-rheumatic tricuspid valve insufficiency (Chronic) I36.1 Chronic diastolic (congestive) heart failure (Chronic) I50.32 Hyperlipidemia (Chronic) E78.5 Hypertension (Chronic) I10 Asbestos exposure Z77.090 GERD (gastroesophageal reflux disease) K21.9 Hypothyroidism E03.9 Obstructive sleep apnea G47.33 Type 2 diabetes mellitus E11.9 Venous stasis dermatitis of right lower extremity (Inactive) I83.11 Allergies cocaine Allergy (Verified 08/16/18 02:59) Unknown atorvastatin calcium [From Lipitor] Adverse Reaction (Verified 08/16/18 02:59) Pain in joints haloperidol [From Haldol] Adverse Reaction (Verified 08/16/18 02:59) Other WENT CRAZY morphine Adverse Reaction (Verified 08/16/18 02:59) Other extremely aggitated oxycodone [From OxyIR] Adverse Reaction (Verified 08/16/18 02:59) Pain in joints extremely aggitated prednisone Adverse Reaction (Verified 08/16/18 02:59) ANXIOUS, INSOMNIA STERIODS Adverse Reaction (Uncoded 08/16/18 02:59) Other ANXIETY INSOMNIA Home Medications: Ambulatory Orders Medication Instructions Recorded Paroxetine HCl [Paxil] 40 mg PO DAILY 09/27/16 Potassium Chloride [K-Dur] 20 meq PO BID 09/27/16 Simvastatin [Zocor] 40 mg PO QHS 09/27/16 Sitagliptin Phosphate [Januvia] 100 mg PO DAILY 09/27/16 Torsemide [Demadex] 20 mg PO BID 09/27/16 traZODone [Desyrel] 50 mg PO QHS 09/27/16 Divalproex Sodium [Depakote] 500 mg PO BID 08/14/17 Allopurinol 100 mg PO DAILY 05/17/18 Dulaglutide [Trulicity] 1.5 mg SQ QWEEK 05/17/18 gabapentin 300 mg capsule 300 mg PO BID cap 07/17/18 levothyroxine 100 mcg capsule 112 mcg PO DAILY 07/17/18 Aspirin [Aspirin, Baby] 81 mg PO DAILY@0800 08/16/18 Canagliflozin [Invokana] 300 mg PO DAILY 08/16/18 Diclofenac Sodium 25 mg PO BID 08/16/18 Guaifenesin/Codeine Phosphate 10 ml PO Q6H PRN 08/16/18 [Codeine-Guaifen 10-100 mg/5 ml] Metoprolol Tartrate [Lopressor 12.5 mg PO BID 08/16/18 (beta torie)] Acetaminophen [Tylenol Tablet] 650 mg PO Q6H PRN PRN tablet 08/19/18 Albuterol Aerosols [Ventolin 2.5 mg INHALATION Q4H PRN PRN 08/19/18 Aerosols] vial.neb. Cefdinir 300 mg PO BID #0 08/19/18 Insulin Lispro [Humalog KwikPen] See Protocol SC ACHS 08/19/18 Ipratropium/Albuterol Sulfate 3 ml INHALATION Q4H.RT 08/19/18 [Duoneb] Losartan Potassium 100 mg PO DAILY 08/19/18 Menthol/Lanolin/Calamine/Znox 1 applic TOPICAL TID 08/19/18 [Calmoseptine Ointment] Surgical History: Surgical History (Last Reviewed 07/17/18 @ 08:58 by Jethro Dozier MD) Cochlear implant in place Z96.21 H/O shoulder surgery Z98.890 History of left heart catheterization Onset Date: 08/15/17 Z98.890 non obstructive coronary arteries History of right knee joint replacement Z96.651 Hx of cholecystectomy Z90.49 Previous back surgery Z98.890 Surgical History: - - PCI, cholecystectomy, shoulder surgery with rotator cuff repair, back surgery, right total knee replacement, cochlear implant. Psychiatric History: Depression Lives: Spouse/ Significant Other Smoking Status: Former smoker Tobacco Use: Non-smoker Alcohol: None Drugs: None - *Family History Maternal Family History: Family History (Last Reviewed 07/17/18 @ 08:58 by Jethro Dozier MD) Mother Hypertension Father Hypertension History Items: Hypertension Paternal Family History: Family History (Last Reviewed 07/17/18 @ 08:58 by Jethro Dozier MD) Mother Hypertension Father Hypertension History Items: Heart Disease - decased age 73, Hypertension Review of Systems Constitutional: Denies: Chills, Fever, Weight Change HEENT: Denies: Head Aches, Sinus Congestion, Sinus Drainage Cardiovascular: Denies: Chest Pain, Palpitations Respiratory: Denies: Cough, Shortness of breath at rest, Sputum production Gastrointestinal: Denies: Abdominal Pain, Nausea, Vomiting Genitourinary: Denies: Dysuria Musculoskeletal: Denies: Joint Pain, Joint Tenderness Skin: Denies: Rash, Wounds Neurological: Denies: Numbness, Tingling, Focal weakness Psychiatric: Denies: Anxiety, Depression, Homicidal Ideations, Suicidal Ideations Hematologic/ Lymphatic: Denies: Easy Bruising, Easy Bleeding VTE Information - Inpt Only VTE Present on Admission: No VTE Mechan Device Prophylaxis: Knee High ESTRELLITA Hose VTE Pharm Prophylaxis ordered?: Yes Patient Problems: Active and Suspected Problems (Last Reviewed 07/17/18 @ 08:58 by Jethro Dozier MD) Acute delirium (Acute) Weakness (Acute) Urinary tract infection (Acute) - Physical Exam General: Alert, Oriented x3, Cooperative HEENT: Atraumatic, PERRLA, EOMI, Normocephalic Neck: Supple, No JVD, Negative Carotid Bruits Lungs: Clear to auscultation, Normal air movement Cardiovascular: Regular rate, No murmurs Abdomen: Bowel Sounds Present, Soft, Non Tender Extremities: No edema, Capillary Refill Less than 3 Seconds Skin: No rashes, No breakdown Musculoskeletal: No Tenderness to Palpation of Joints or Extremities Neurological: Cranial nerves II-XII grossly intact Psych/Mental Status: Normal Affect, Appropriate Vital Signs Temp Pulse Resp BP Pulse Ox 97.9 F 63 18 133/63 H 96 08/19/18 14:25 08/19/18 17:50 08/19/18 14:25 08/19/18 17:50 08/19/18 14:25 Oxygen Delivery Method Room Air Weight: 118.9 kg Body Mass Index (BMI) 39.8 Finger Stick Blood Glucose 166 Intake and Output for Last 24 Hours 08/17/18 08/18/18 08/19/18 23:59 23:59 23:59 Intake Total 160 / 160 Balance 160 / 160 POC Glucose 08/19/18 17:51 POC Glucose 163 H Assessment/Plan All Active Problems (Last Reviewed 07/17/18 @ 08:58 by Jethro Dozier MD) Acute delirium (Acute) Weakness (Acute) Urinary tract infection (Acute) Preop cardiovascular exam (Acute) Skin tear of right lower leg without complication (Acute) Cellulitis (Resolved) Fissure in skin of foot (Acute) Hypokalemia (Resolved) 73 year old male with below past medical history hospitalized for acute delirium secondary to sepsis from Hafnia Alvei urinary tract infection, community acquired pneumonia, rhinovirus, admitted to TCU with debility, here for rehabilitation, strengthening, prior to lumbar surgery 08/28/2018. Debility - PT/OT. Dysphagia - ST. Pain - Tylenol 1000MG Q8H PRN mild pain. Bowel - Miralax 17GM daily, Senna/colace 1 tablet BID, Dulcolax 10MG UT daily PRN. Pneumonia vaccination - Administer Prevnar 13 and/or Pneumovax 23 as necessary. DVT prophylaxis - Lovenox 40MG SC daily. Shortness of breath - Duoneb 3ML Q4HRT, Albuterol 2.5MG Q4H PRN. Gout - Allopurinol 100MG daily. Coronary Artery Disease - Metoprolol 12.5MG BID, Losartan 100MG daily, Aspirin 81MG daily. UTI/CAP - Cefdinir 300MG BID thru 08/22/2018. Neuropathic pain - Gabapentin 300MG BID, Depakote 500MG BID. Diabetes Mellitus II - Trulicity 1.5MG per week, Tradjenta 5MG daily, Jardiance 25MG daily. Skin irritation - Eucerin BID feet/legs, Calmoseptine TID bilateral buttocks, coccyx. Chronic diastolic heart failure - Metoprolol 12.5MG BID, Losartan 100MG daily, Lasix 40MG BID. Hypothyroidism - Levothyroxine 112MCG daily. Tinea Corporis - Nystatin BID abdominal folds, groin. Depression - Paroxetine 40MG QHS. Hypokalemia - K-Dur 20MEQ BID. Hyperlipidemia - Simvastatin 40MG QHS. Insomnia - Trazodone 50MG QHS. Lumbar spinal stenosis - Surgery at [facility] with Dr. Saturnino Dupree 08/28/2018.
--- NOTE | 2018-08-19 20:44 | HP.PCM_ITS ---
Problem List (1) Acute delirium Status: Acute (2) Weakness Status: Acute (3) Urinary tract infection Status: Acute (4) Chronic diastolic heart failure Status: Chronic (5) Lymphedema Status: Chronic (6) Diabetes mellitus Status: Chronic (7) GERD (gastroesophageal reflux disease) Status: Chronic (8) Hypothyroidism Status: Chronic (9) Lumbar spinal stenosis Status: Chronic (10) Osteoarthritis of knees, bilateral Status: Chronic (11) Depression Status: Chronic (12) Gout Status: Chronic (13) Neuropathic pain Status: Chronic (14) Hyperlipidemia Status: Chronic Qualifiers: (15) Hypertension Status: Chronic Qualifiers: History of Present Illness Date of Admission: 08/19/18 Chief Complaint: Here for rehabilitation, strengthening, prior to lumbar surgery 08/28/2018. The patient is a 73 year old Male with below past medical history presented to [facility] Emergency Department 08/16/2018 with confusion, weakness. 08/16/2018 CT brain chronic involutional changes, but artifact from cochlear implant. 08/16/2018 EKG normal sinus rhythm, left axis deviation, anterolateral infarct, age undetermined. 08/16/2018 Chest X-ray bilateral atelectasis versus infiltrate, stable mild cardiomegaly. Hematuria 1 day prior, UTI treated by Dr. Wheeler with Rocephin 1GM IV, Normal saline 2 liters IV bolus. Patient weak, confused. Tylenol, Zosyn, IV fluids given. 08/16/2018 Admit to Hospital. Rocephin, Azithromycin, IV fluids for sepsis, urinary tract infection, community acquired pneumonia. 08/18/2018 Outpatient urine culture grew Hafnia Alvei. Despite resistance to Ceftriaxone, patient responded well to Ceftriaxone. Respiratory panel positive rhinovirus. Urinary antigens for strep pneumo, legionella NEGATIVE. 08/19/2018 Admit to TCU with debility, here for rehabilitation, strengthening, prior to lumbar surgery 08/28/2018. Past Medical History Past Medical History (Chronic Problems): Chronic Problems (Last Reviewed 07/17/18 @ 08:58 by Jethro Dozier MD) Chronic diastolic heart failure (Chronic) Lymphedema (Chronic) Diabetes mellitus (Chronic) GERD (gastroesophageal reflux disease) (Chronic) Hypothyroidism (Chronic) Lumbar spinal stenosis (Chronic) Osteoarthritis of knees, bilateral (Chronic) Depression (Chronic) Gout (Chronic) Neuropathic pain (Chronic) Abnormal electrocardiogram (Chronic) Non-rheumatic tricuspid valve insufficiency (Chronic) Chronic diastolic (congestive) heart failure (Chronic) Hyperlipidemia (Chronic) Hypertension (Chronic) Chronic acquired lymphedema (Chronic) Medical History: Medical History (Last Reviewed 07/17/18 @ 08:58 by Jethro Dozier MD) Non-rheumatic tricuspid valve insufficiency (Chronic) I36.1 Chronic diastolic (congestive) heart failure (Chronic) I50.32 Hyperlipidemia (Chronic) E78.5 Hypertension (Chronic) I10 Asbestos exposure Z77.090 GERD (gastroesophageal reflux disease) K21.9 Hypothyroidism E03.9 Obstructive sleep apnea G47.33 Type 2 diabetes mellitus E11.9 Venous stasis dermatitis of right lower extremity (Inactive) I83.11 Allergies cocaine Allergy (Verified 08/16/18 02:59) Unknown atorvastatin calcium [From Lipitor] Adverse Reaction (Verified 08/16/18 02:59) Pain in joints haloperidol [From Haldol] Adverse Reaction (Verified 08/16/18 02:59) Other WENT CRAZY morphine Adverse Reaction (Verified 08/16/18 02:59) Other extremely aggitated oxycodone [From OxyIR] Adverse Reaction (Verified 08/16/18 02:59) Pain in joints extremely aggitated prednisone Adverse Reaction (Verified 08/16/18 02:59) ANXIOUS, INSOMNIA STERIODS Adverse Reaction (Uncoded 08/16/18 02:59) Other ANXIETY INSOMNIA Home Medications: Ambulatory Orders Medication Instructions Recorded Paroxetine HCl [Paxil] 40 mg PO DAILY 09/27/16 Potassium Chloride [K-Dur] 20 meq PO BID 09/27/16 Simvastatin [Zocor] 40 mg PO QHS 09/27/16 Sitagliptin Phosphate [Januvia] 100 mg PO DAILY 09/27/16 Torsemide [Demadex] 20 mg PO BID 09/27/16 traZODone [Desyrel] 50 mg PO QHS 09/27/16 Divalproex Sodium [Depakote] 500 mg PO BID 08/14/17 Allopurinol 100 mg PO DAILY 05/17/18 Dulaglutide [Trulicity] 1.5 mg SQ QWEEK 05/17/18 gabapentin 300 mg capsule 300 mg PO BID cap 07/17/18 levothyroxine 100 mcg capsule 112 mcg PO DAILY 07/17/18 Aspirin [Aspirin, Baby] 81 mg PO DAILY@0800 08/16/18 Canagliflozin [Invokana] 300 mg PO DAILY 08/16/18 Diclofenac Sodium 25 mg PO BID 08/16/18 Guaifenesin/Codeine Phosphate 10 ml PO Q6H PRN 08/16/18 [Codeine-Guaifen 10-100 mg/5 ml] Metoprolol Tartrate [Lopressor 12.5 mg PO BID 08/16/18 (beta torie)] Acetaminophen [Tylenol Tablet] 650 mg PO Q6H PRN PRN tablet 08/19/18 Albuterol Aerosols [Ventolin 2.5 mg INHALATION Q4H PRN PRN 08/19/18 Aerosols] vial.neb. Cefdinir 300 mg PO BID #0 08/19/18 Insulin Lispro [Humalog KwikPen] See Protocol SC ACHS 08/19/18 Ipratropium/Albuterol Sulfate 3 ml INHALATION Q4H.RT 08/19/18 [Duoneb] Losartan Potassium 100 mg PO DAILY 08/19/18 Menthol/Lanolin/Calamine/Znox 1 applic TOPICAL TID 08/19/18 [Calmoseptine Ointment] Surgical History: Surgical History (Last Reviewed 07/17/18 @ 08:58 by Jethro Dozier MD) Cochlear implant in place Z96.21 H/O shoulder surgery Z98.890 History of left heart catheterization Onset Date: 08/15/17 Z98.890 non obstructive coronary arteries History of right knee joint replacement Z96.651 Hx of cholecystectomy Z90.49 Previous back surgery Z98.890 Surgical History: - - PCI, cholecystectomy, shoulder surgery with rotator cuff repair, back surgery, right total knee replacement, cochlear implant. Psychiatric History: Depression Lives: Spouse/ Significant Other Smoking Status: Former smoker Tobacco Use: Non-smoker Alcohol: None Drugs: None - *Family History Maternal Family History: Family History (Last Reviewed 07/17/18 @ 08:58 by Jethro Dozier MD) Mother Hypertension Father Hypertension History Items: Hypertension Paternal Family History: Family History (Last Reviewed 07/17/18 @ 08:58 by Jethro Dozier MD) Mother Hypertension Father Hypertension History Items: Heart Disease - decased age 73, Hypertension Review of Systems Constitutional: Denies: Chills, Fever, Weight Change HEENT: Denies: Head Aches, Sinus Congestion, Sinus Drainage Cardiovascular: Denies: Chest Pain, Palpitations Respiratory: Denies: Cough, Shortness of breath at rest, Sputum production Gastrointestinal: Denies: Abdominal Pain, Nausea, Vomiting Genitourinary: Denies: Dysuria Musculoskeletal: Denies: Joint Pain, Joint Tenderness Skin: Denies: Rash, Wounds Neurological: Denies: Numbness, Tingling, Focal weakness Psychiatric: Denies: Anxiety, Depression, Homicidal Ideations, Suicidal Ideations Hematologic/ Lymphatic: Denies: Easy Bruising, Easy Bleeding VTE Information - Inpt Only VTE Present on Admission: No VTE Mechan Device Prophylaxis: Knee High ESTRELLITA Hose VTE Pharm Prophylaxis ordered?: Yes Patient Problems: Active and Suspected Problems (Last Reviewed 07/17/18 @ 08:58 by Jethro Dozier MD) Acute delirium (Acute) Weakness (Acute) Urinary tract infection (Acute) - Physical Exam General: Alert, Oriented x3, Cooperative HEENT: Atraumatic, PERRLA, EOMI, Normocephalic Neck: Supple, No JVD, Negative Carotid Bruits Lungs: Clear to auscultation, Normal air movement Cardiovascular: Regular rate, No murmurs Abdomen: Bowel Sounds Present, Soft, Non Tender Extremities: No edema, Capillary Refill Less than 3 Seconds Skin: No rashes, No breakdown Musculoskeletal: No Tenderness to Palpation of Joints or Extremities Neurological: Cranial nerves II-XII grossly intact Psych/Mental Status: Normal Affect, Appropriate Vital Signs Temp Pulse Resp BP Pulse Ox 97.9 F 63 18 133/63 H 96 08/19/18 14:25 08/19/18 17:50 08/19/18 14:25 08/19/18 17:50 08/19/18 14:25 Oxygen Delivery Method Room Air Weight: 118.9 kg Body Mass Index (BMI) 39.8 Finger Stick Blood Glucose 166 Intake and Output for Last 24 Hours 08/17/18 08/18/18 08/19/18 23:59 23:59 23:59 Intake Total 160 / 160 Balance 160 / 160 POC Glucose 08/19/18 17:51 POC Glucose 163 H Assessment/Plan All Active Problems (Last Reviewed 07/17/18 @ 08:58 by Jethro Dozier MD) Acute delirium (Acute) Weakness (Acute) Urinary tract infection (Acute) Preop cardiovascular exam (Acute) Skin tear of right lower leg without complication (Acute) Cellulitis (Resolved) Fissure in skin of foot (Acute) Hypokalemia (Resolved) 73 year old male with below past medical history hospitalized for acute delirium secondary to sepsis from Hafnia Alvei urinary tract infection, community acquired pneumonia, rhinovirus, admitted to TCU with debility, here for rehabilitation, strengthening, prior to lumbar surgery 08/28/2018. * Debility - PT/OT. * Dysphagia - ST. * Pain - Tylenol 1000MG Q8H PRN mild pain. * Bowel - Miralax 17GM daily, Senna/colace 1 tablet BID, Dulcolax 10MG MN daily PRN. * Pneumonia vaccination - Administer Prevnar 13 and/or Pneumovax 23 as necessary. * DVT prophylaxis - Lovenox 40MG SC daily. * Shortness of breath - Duoneb 3ML Q4HRT, Albuterol 2.5MG Q4H PRN. * Gout - Allopurinol 100MG daily. * Coronary Artery Disease - Metoprolol 12.5MG BID, Losartan 100MG daily, Aspirin 81MG daily. * UTI/CAP - Cefdinir 300MG BID thru 08/22/2018. * Neuropathic pain - Gabapentin 300MG BID, Depakote 500MG BID. * Diabetes Mellitus II - Trulicity 1.5MG per week, Tradjenta 5MG daily, Jardiance 25MG daily. * Skin irritation - Eucerin BID feet/legs, Calmoseptine TID bilateral buttocks, coccyx. * Chronic diastolic heart failure - Metoprolol 12.5MG BID, Losartan 100MG daily, Lasix 40MG BID. * Hypothyroidism - Levothyroxine 112MCG daily. * Tinea Corporis - Nystatin BID abdominal folds, groin. * Depression - Paroxetine 40MG QHS. * Hypokalemia - K-Dur 20MEQ BID. * Hyperlipidemia - Simvastatin 40MG QHS. * Insomnia - Trazodone 50MG QHS. * Lumbar spinal stenosis - Surgery at [facility] with Dr. Saturnino Dupree 08/28/2018.
[2018-08-19 21:01] LABS: Bedside Glucose 195 mg/dL (70-110)
[2018-08-19] MEDS: Nystatin Powder 15gm Bottle 1 APPLIC TOPICAL (21:13)
[2018-08-19] MEDS: traZODone 50 MG Tablet PO (21:13)
[2018-08-19] MEDS: Menthol/Lanolin/Calamine/Znox 113 GM Tube 1 APPLIC TOPICAL (21:13)
--- NOTE | 2018-08-19 22:08 | NURSING ---
Pt making inappropriate comments towards staff about grabbing their butts and wanting to get into bed with them. This nurse had a discussion with pt that it is inappropriate to talk to staff like that. Pt just laughed and stated There is just so many pretty girls around here I cant help it.
[2018-08-20] MEDS: Acetaminophen 500 MG Tablet 1000 MG PO ×2 (01:25→21:30)
--- NOTE | 2018-08-20 01:53 | NURSING ---
Pt yelling out and climbing out of bed. Pt has hearing aid lying on bed and complaining it will not work. Battery changed and put back in ear. Pt twisting cord on hearing aide and will not leave in ear. Pt A&Ox1 and making no sense when talking. Pt adjusted in bed with call light in reach.
--- NOTE | 2018-08-20 03:18 | NURSING ---
Pt yelling out and screaming. This nurse into room and asked pt to stop yelling. Pt screamed Im gonna kick your ass! Pt lying in bed with call light in reach.
[2018-08-20] MEDS: Divalproex Sodium 250 MG Tablet 500 MG PO ×2 (04:46→17:34)
[2018-08-20] MEDS: Senna/Docusate Sodium 1 Tablet PO ×2 (04:46→17:33)
[2018-08-20] MEDS: Cefdinir 300 MG Capsule PO ×2 (04:46→17:33)
[2018-08-20] MEDS: LINAGLIPTIN 5 MG TABLET PO (04:46)
[2018-08-20] MEDS: Furosemide 40 MG Tablet PO ×2 (04:46→13:38)
[2018-08-20] MEDS: Enoxaparin 40 MG/0.4 ML Syringe SC (04:46)
[2018-08-20] MEDS: Levothyroxine 112 MCG Tablet PO (04:46)
[2018-08-20] MEDS: Polyethylene Glycol 3350 17 GM PACKET PO (04:46)
[2018-08-20] MEDS: Empagliflozin 25 MG Tablet PO (04:47)
[2018-08-20] MEDS: Losartan Potassium 100 MG Tablet PO (04:47)
[2018-08-20 04:50] VITALS: PULSE 74
[2018-08-20] MEDS: Metoprolol Tartrate 25 MG Tablet 12.5 MG PO (04:50)
[2018-08-20] MEDS: Menthol/Lanolin/Calamine/Znox 113 GM Tube 1 APPLIC TOPICAL ×3 (04:57→21:25)
[2018-08-20] MEDS: Nystatin Powder 15gm Bottle 1 APPLIC TOPICAL ×2 (04:58→21:28)
[2018-08-20 06:06] LABS: Absolute Lymphocyte Count 3.02 X10^3/ul (0.83-4.51); Basophil# 0.06 X10^3/uL; Basophil% 0.7 % (0-1); Eosinophils% 5.7 % (0-5); Hematocrit 40.1 % (40-54); Hemoglobin 13.3 g/dl (13.0-16.5); Lymphocyte # 3.02 X10^3/ul (4.0); Lymphocyte % 34.4 % (19-41); Mean Corp Hgb Conc 33.2 g/gl (32-36); Mean Corpuscular Hgb 30.4 pg (27.0-32.0); Mean Corpuscular Volume 91.6 fL (80-94); Mean Platelet Vol. 9.4 fl (6.2-12.0); Monocyte# 1.13 X10^3/uL; Monocyte% 12.9 % (0-10); Neutrophil # 3.99 X10^3/uL (2.7-7.7); Neutrophil % 45.4 % (47-70); Platelet Count 440 K/mm3 (150-450); RBC Distribution Width CV 13.4 % (11.6-14.6); RBC Distribution Width SD 44.3 fl (35.1-43.9); Red Blood Count 4.38 M/mm3 (4.6-6.2); White Blood Count 8.8 K/mm3 (4.4-11.0)
[2018-08-20 06:14] LABS: POSITIVE COUNT NO; POSITIVE DIFFERENTIAL NO; POSITIVE MORPHOLOGY NO
[2018-08-20 06:23] LABS: Anion Gap 9 (5-15); BUN 23 mg/dL (7-18); BUN/Creat Ratio 29.1 RATIO (10-20); Calcium,Total 9.2 mg/dL (8.5-10.1); Chloride 100 mmol/L (98-107); Creatinine, Serum 0.79 mg/dL (0.70-1.30); EST Glomerular Filtration Rate 102 mL/min (>60); Est Glom Filt Rate - Afr Amer 123 mL/min (>60); Estimated Creatinine Clearance 63.65 ml/min; Glucose 134 mg/dL (74-106); Potassium 3.8 mmol/L (3.5-5.1); Sodium Level 139 mmol/L (136-145)
[2018-08-20 06:35] VITALS: PULSE 64; RESP 16; O2SAT 91
[2018-08-20] MEDS: Ipratropium/Albuterol Sulfate 3 ML AMPUL.NEB INHALATION ×3 (06:35→19:10)
[2018-08-20 07:01] LABS: Bedside Glucose 162 mg/dL (70-110)
[2018-08-20] MEDS: Allopurinol 100 MG Tablet PO (08:53)
[2018-08-20] MEDS: Gabapentin 300 MG Capsule PO ×2 (08:53→17:35)
[2018-08-20] MEDS: Aspirin 81 MG TAB.CHEW PO (08:53)
[2018-08-20] MEDS: Tuberculin,Purif.prot.deriv. 50 TU/ML Vial 5 ML ID (10:47)
[2018-08-20 11:45] LABS: Bedside Glucose 219 mg/dL (70-110)
[2018-08-20 14:50] VITALS: PULSE 60; RESP 16
[2018-08-20 16:00] VITALS: BP 160/70; PULSE 57; RESP 20; TEMP 36.2; O2SAT 99
--- NOTE | 2018-08-20 16:52 | CASEMGMT ---
Social Work Completed DPOA for healthcare with resident. Provided resident spouse with original and placed copy on resident chart. Will continue to follow. Tamia MA, JUDO INSTRUCTOR
--- NOTE | 2018-08-20 17:26 | NURSING ---
Pt remains in precautions this shift.
[2018-08-20 17:34] VITALS: PULSE 50
--- NOTE | 2018-08-20 18:12 | NURSING ---
Pt continues to be sexually inappropriate, talking about female staff members in a very sexual way. This nurse asked Pt repeatedly to not talk that way, Pt just grins and smiles. Pt threatening to kiss this nurse if she gets to close. Sher YEE aware
[2018-08-20 19:10] VITALS: PULSE 63; RESP 16; O2SAT 92
[2018-08-20] MEDS: traZODone 50 MG Tablet PO (21:28)
--- NOTE | 2018-08-21 02:10 | NURSING ---
Pt remains in droplet precautions during shift d/t rhinovirus.
[2018-08-21] MEDS: Menthol/Lanolin/Calamine/Znox 113 GM Tube 1 APPLIC TOPICAL ×3 (05:21→20:58)
[2018-08-21] MEDS: Nystatin Powder 15gm Bottle 1 APPLIC TOPICAL ×2 (05:23→20:59)
[2018-08-21] MEDS: Polyethylene Glycol 3350 17 GM PACKET PO (05:25)
[2018-08-21] MEDS: Levothyroxine 112 MCG Tablet PO (05:33)
[2018-08-21] MEDS: Senna/Docusate Sodium 1 Tablet PO ×2 (05:33→16:48)
[2018-08-21] MEDS: LINAGLIPTIN 5 MG TABLET PO (05:33)
[2018-08-21] MEDS: Divalproex Sodium 250 MG Tablet 500 MG PO ×2 (05:33→16:48)
[2018-08-21] MEDS: Empagliflozin 25 MG Tablet PO (05:34)
[2018-08-21] MEDS: Furosemide 40 MG Tablet PO ×2 (05:34→13:52)
[2018-08-21] MEDS: Losartan Potassium 100 MG Tablet PO (05:34)
[2018-08-21] MEDS: Cefdinir 300 MG Capsule PO ×2 (05:34→16:47)
[2018-08-21 05:35] VITALS: BP 133/75; PULSE 65
[2018-08-21] MEDS: Metoprolol Tartrate 25 MG Tablet 12.5 MG PO ×2 (05:35→16:47)
[2018-08-21] MEDS: Enoxaparin 40 MG/0.4 ML Syringe SC (05:35)
[2018-08-21 07:15] LABS: Bedside Glucose 165 mg/dL (70-110)
[2018-08-21 07:40] VITALS: PULSE 71; RESP 18
[2018-08-21] MEDS: Ipratropium/Albuterol Sulfate 3 ML AMPUL.NEB INHALATION ×2 (07:50→15:20)
[2018-08-21] MEDS: Aspirin 81 MG TAB.CHEW PO (08:27)
[2018-08-21] MEDS: Gabapentin 300 MG Capsule PO ×2 (08:27→16:47)
[2018-08-21] MEDS: Allopurinol 100 MG Tablet PO (08:27)
--- NOTE | 2018-08-21 11:00 | NURSING ---
Patient remains in droplet precautions d/t rhinovirus.
[2018-08-21 16:00] VITALS: BP 136/65; PULSE 67; RESP 20; TEMP 36.4; O2SAT 93
[2018-08-21 16:20] VITALS: PULSE 77; RESP 21
[2018-08-21 16:47] VITALS: BP 136/65; PULSE 67
[2018-08-21] MEDS: traZODone 50 MG Tablet PO (21:00)
--- NOTE | 2018-08-21 21:49 | NURSING ---
Pt remains in droplet isolation during shift
[2018-08-22 05:30] VITALS: BP 176/86; PULSE 59
[2018-08-22] MEDS: Polyethylene Glycol 3350 17 GM PACKET PO (05:30)
[2018-08-22] MEDS: Metoprolol Tartrate 25 MG Tablet 12.5 MG PO ×2 (05:30→16:59)
[2018-08-22] MEDS: Cefdinir 300 MG Capsule PO ×2 (05:30→16:59)
[2018-08-22] MEDS: LINAGLIPTIN 5 MG TABLET PO (05:30)
[2018-08-22] MEDS: Levothyroxine 112 MCG Tablet PO (05:30)
[2018-08-22] MEDS: Furosemide 40 MG Tablet PO ×2 (05:30→14:48)
[2018-08-22] MEDS: Losartan Potassium 100 MG Tablet PO (05:30)
[2018-08-22] MEDS: Empagliflozin 25 MG Tablet PO (05:31)
[2018-08-22] MEDS: Senna/Docusate Sodium 1 Tablet PO ×2 (05:31→16:57)
[2018-08-22] MEDS: Enoxaparin 40 MG/0.4 ML Syringe SC (05:32)
[2018-08-22] MEDS: Nystatin Powder 15gm Bottle 1 APPLIC TOPICAL ×2 (05:35→20:43)
[2018-08-22] MEDS: Menthol/Lanolin/Calamine/Znox 113 GM Tube 1 APPLIC TOPICAL ×3 (05:36→20:43)
[2018-08-22 06:56] LABS: Bedside Glucose 193 mg/dL (70-110)
[2018-08-22] MEDS: Allopurinol 100 MG Tablet PO (08:54)
[2018-08-22] MEDS: Gabapentin 300 MG Capsule PO ×2 (08:55→16:57)
[2018-08-22] MEDS: Aspirin 81 MG TAB.CHEW PO (08:55)
[2018-08-22] MEDS: Divalproex Sodium 250 MG Tablet 500 MG PO ×2 (08:55→16:57)
--- NOTE | 2018-08-22 09:06 | NURSING ---
PT IN PRECAUTIONS FOR BELLE VIRUS.
--- NOTE | 2018-08-22 12:29 | PCM.PN.RX ---
<JoselinNestor tavares - Last Filed: 08/22/18 12:29> Progress Note - Pharmacy Subjective: [] Objective: Allergies cocaine Allergy (Verified 08/16/18 02:59) Unknown atorvastatin calcium [From Lipitor] Adverse Reaction (Verified 08/16/18 02:59) Pain in joints haloperidol [From Haldol] Adverse Reaction (Verified 08/16/18 02:59) Other WENT CRAZY morphine Adverse Reaction (Verified 08/16/18 02:59) Other extremely aggitated oxycodone [From OxyIR] Adverse Reaction (Verified 08/16/18 02:59) Pain in joints extremely aggitated prednisone Adverse Reaction (Verified 08/16/18 02:59) ANXIOUS, INSOMNIA STERIODS Adverse Reaction (Uncoded 08/16/18 02:59) Other ANXIETY INSOMNIA Current Medications Generic Name Dose Route Start Last Admin Trade Name Freq PRN Reason Stop Dose Admin Acetaminophen 1,000 mg 08/19/18 20:58 08/20/18 21:30 Tylenol PO 1,000 mg Q8H PRN PRN Administration MILD PAIN (1-3/10) Albuterol Sulfate 2.5 mg 08/19/18 14:50 Ventolin Aerosols INHALATION Q4H PRN PRN SHORTNESS OF BREATH Allopurinol 100 mg 08/20/18 08:00 08/22/18 08:54 Zyloprim PO 100 mg DAILYCM CHERYL Administration Aspirin 81 mg 08/20/18 08:00 08/22/18 08:55 Aspirin, Baby PO 81 mg DAILY@0800 CHERYL Administration Bisacodyl 10 mg 08/19/18 14:47 Dulcolax RECTAL DAILY PRN Constipation Calamine/Phenol 1 applic 08/19/18 22:00 08/22/18 05:36 Calmoseptine Ointment TOPICAL 1 applicatio TID CHERYL Administration Protocol Cefdinir 300 mg 08/19/18 18:00 08/22/18 05:30 Omnicef [Equiv] PO 08/22/18 18:01 300 mg BID CHERYL Administration Divalproex Sodium 500 mg 08/21/18 17:00 08/22/18 08:55 Depakote PO 500 mg BIDCM CHERYL Administration Emollient Ointment 1 applic 08/19/18 22:00 08/22/18 05:37 Eucerin Intensive Repair TOPICAL 1 applicatio 0600,2200 CHERYL Administration Protocol Enoxaparin Sodium 40 mg 08/20/18 06:00 08/22/18 05:32 Lovenox SC 40 mg DAILY@0600 CHERYL Administration Furosemide 40 mg 08/20/18 06:00 08/22/18 05:30 Lasix PO 40 mg BIDLX CHERYL Administration Gabapentin 300 mg 08/19/18 17:00 08/22/18 08:55 Neurontin PO 300 mg BIDCM CHERYL Administration Levothyroxine Sodium 112 mcg 08/20/18 06:00 08/22/18 05:30 Synthroid PO 112 mcg DAILY@0600 CHERYL Administration Linagliptin 5 mg 08/20/18 06:00 08/22/18 05:30 Tradjenta PO 5 mg DAILY CHERYL Administration Losartan Potassium 100 mg 08/20/18 06:00 08/22/18 05:30 Cozaar PO 100 mg DAILY CHERYL Administration Metoprolol Tartrate 12.5 mg 08/19/18 18:00 08/22/18 05:30 Lopressor (Beta Romel) PO 12.5 mg BID CHERYL Administration Nystatin 1 applic 08/19/18 22:00 08/22/18 05:35 Mycostatin Powder TOPICAL 1 applicatio 599,220 CHERYL Administration Protocol Paroxetine HCl 40 mg 08/20/18 06:00 08/22/18 05:30 Paxil PO 40 mg DAILY CHERYL Administration Polyethylene Glycol 17 gm 08/20/18 06:00 08/22/18 05:30 Miralax PO 17 gm DAILY CHERYL Administration Potassium Chloride 20 meq 08/21/18 17:00 08/22/18 08:55 K-Dur PO 20 meq BIDCM CHERYL Administration Senna/Docusate Sodium 1 tablet 08/20/18 06:00 08/22/18 05:31 Senokot-S, Bria-Colace PO 1 tablet BID CHERYL Administration Simvastatin 40 mg 08/19/18 22:00 08/21/18 21:00 Zocor PO 40 mg QHS CHERYL Administration Trazodone HCl 100 mg 08/22/18 22:00 Desyrel PO QHS CHERYL Tuberculin PPD 5 tu 08/27/18 10:00 Tubersol, Aplisol, Ppd ID 08/27/18 10:01 X1 ONE Problem List (Last Reviewed 07/17/18 @ 08:58 by Jethro Dozier MD) Acute delirium (Acute) Weakness (Acute) Urinary tract infection (Acute) Chronic diastolic heart failure (Chronic) Lymphedema (Chronic) Diabetes mellitus (Chronic) GERD (gastroesophageal reflux disease) (Chronic) Hypothyroidism (Chronic) Lumbar spinal stenosis (Chronic) Osteoarthritis of knees, bilateral (Chronic) Depression (Chronic) Gout (Chronic) Neuropathic pain (Chronic) Vital Signs Temp Pulse Resp BP Pulse Ox 97.6 F L 59 L 21 H 176/86 H 93 08/21/18 16:00 08/22/18 05:30 08/21/18 16:20 08/22/18 05:30 08/21/18 16:00 Oxygen Delivery Method Room Air Weight: 120.259 kg Body Mass Index (BMI) 39.8 Finger Stick Blood Glucose 166 Sodium 139 mmol/L (136-145) 08/20/18 05:30 Potassium 3.8 mmol/L (3.5-5.1) 08/20/18 05:30 Chloride 100 mmol/L (98-107) 08/20/18 05:30 Carbon Dioxide 30.0 mmol/L (21.0-32.0) 08/20/18 05:30 Anion Gap 9 (5-15) 08/20/18 05:30 BUN 23 mg/dL (7-18) H 08/20/18 05:30 Creatinine 0.79 mg/dL (0.70-1.30) 08/20/18 05:30 Est GFR (MDRD) Af Amer 123 mL/min (>60) 08/20/18 05:30 Est GFR (MDRD) Non-Af 102 mL/min (>60) 08/20/18 05:30 BUN/Creatinine Ratio 29.1 RATIO (10-20) H 08/20/18 05:30 Glucose 134 mg/dL (74-106) H 08/20/18 05:30 Assessment/Plan: 1) Pain APAP for mild pain, gabapentin, divalproex. Continue to monitor daily pain scores, prn medication use. 2) CHF Losartan, metoprolol, furosemide/KCl. Continue to monitor BP/HR, renal function, electrolytes, for swelling. 3) ID Cefdinir until 08/22. Continue to monitor s/s infection. 4) Gout Allopurinol. Continue to monitor for gout sxs. 5) DM2 Dulaglutide, empagliflozin, linagliptin, ASA, simvastatin. Continue to monitor renal function, BGT, lipids, s/s hyper/hypoglycemia. 6) DVT PPx Enoxaparin daily. Continue to monitor s/s bleeding/clot. 7) Hypothyroidism Levothyroxine daily. Continue to monitor s/s hyper/hypothyroidism. 8) Derm Calmoseptine, nystatin topically. Continue to monitor clinically. Psychotropic Medications: 9) Depression/Insomnia Trazodone at HS, paroxetine daily. Continue to monitor s/s depression, insomnia, s/s serotonin syndrome such as sweating, agitation, unresolved fever. Unnecessary Medications: None Bowel Regimen: 10) Senna/s, PEG, prn bisacodyl. Continue to monitor prn medication use, for constipation/diarrhea. Date of Note:: 08/22/18 - Provider Comments Provider responsibility: Provider responsible to enter orders to implement recommendations <Gil Wheeler Chi - Last Filed: 08/22/18 17:38> Progress Note - Pharmacy Subjective: [] Objective: Allergies cocaine Allergy (Verified 08/16/18 02:59) Unknown atorvastatin calcium [From Lipitor] Adverse Reaction (Verified 08/16/18 02:59) Pain in joints haloperidol [From Haldol] Adverse Reaction (Verified 08/16/18 02:59) Other WENT CRAZY morphine Adverse Reaction (Verified 08/16/18 02:59) Other extremely aggitated oxycodone [From OxyIR] Adverse Reaction (Verified 08/16/18 02:59) Pain in joints extremely aggitated prednisone Adverse Reaction (Verified 08/16/18 02:59) ANXIOUS, INSOMNIA STERIODS Adverse Reaction (Uncoded 08/16/18 02:59) Other ANXIETY INSOMNIA Current Medications Generic Name Dose Route Start Last Admin Trade Name Freq PRN Reason Stop Dose Admin Acetaminophen 1,000 mg 08/19/18 20:58 08/20/18 21:30 Tylenol PO 1,000 mg Q8H PRN PRN Administration MILD PAIN (1-3/10) Albuterol Sulfate 2.5 mg 08/19/18 14:50 Ventolin Aerosols INHALATION Q4H PRN PRN SHORTNESS OF BREATH Allopurinol 100 mg 08/20/18 08:00 08/22/18 08:54 Zyloprim PO 100 mg DAILYCM CHERYL Administration Bisacodyl 10 mg 08/19/18 14:47 Dulcolax RECTAL DAILY PRN Constipation Calamine/Phenol 1 applic 08/19/18 22:00 08/22/18 14:50 Calmoseptine Ointment TOPICAL 1 applicatio TID CHERYL Administration Protocol Cefdinir 300 mg 08/19/18 18:00 08/22/18 16:59 Omnicef [Equiv] PO 08/22/18 18:01 300 mg BID CHERYL Administration Divalproex Sodium 500 mg 08/21/18 17:00 08/22/18 16:57 Depakote PO 500 mg BIDCM CHERYL Administration Emollient Ointment 1 applic 08/19/18 22:00 08/22/18 05:37 Eucerin Intensive Repair TOPICAL 1 applicatio [phone] [facility] Administration Protocol Enoxaparin Sodium 40 mg 08/20/18 06:00 08/22/18 05:32 Lovenox SC 08/26/18 10:00 40 mg DAILY@0600 CHERYL Administration Furosemide 40 mg 08/20/18 06:00 08/22/18 14:48 Lasix PO 40 mg BIDLX CHERYL Administration Gabapentin 300 mg 08/19/18 17:00 08/22/18 16:57 Neurontin PO 300 mg BIDCM CHERYL Administration Levothyroxine Sodium 112 mcg 08/20/18 06:00 08/22/18 05:30 Synthroid PO 112 mcg DAILY@0600 CHERYL Administration Linagliptin 5 mg 08/20/18 06:00 08/22/18 05:30 Tradjenta PO 5 mg DAILY CHERYL Administration Losartan Potassium 100 mg 08/20/18 06:00 08/22/18 05:30 Cozaar PO 100 mg DAILY CHERYL Administration Metoprolol Tartrate 12.5 mg 08/19/18 18:00 08/22/18 16:59 Lopressor (Beta Romel) PO 12.5 mg BID CHERYL Administration Nystatin 1 applic 08/19/18 22:00 08/22/18 05:35 Mycostatin Powder TOPICAL 1 applicatio 599,0 [facility] Administration Protocol Paroxetine HCl 40 mg 08/20/18 06:00 08/22/18 05:30 Paxil PO 40 mg DAILY CHERYL Administration Polyethylene Glycol 17 gm 08/20/18 06:00 08/22/18 05:30 Miralax PO 17 gm DAILY CHERYL Administration Potassium Chloride 20 meq 08/21/18 17:00 08/22/18 16:57 K-Dur PO 20 meq BIDCM CHERYL Administration Senna/Docusate Sodium 1 tablet 08/20/18 06:00 08/22/18 16:57 Senokot-S, Bria-Colace PO 1 tablet BID CHERYL Administration Simvastatin 40 mg 08/19/18 22:00 08/21/18 21:00 Zocor PO 40 mg QHS CHERYL Administration Trazodone HCl 100 mg 08/22/18 22:00 Desyrel PO QHS CHERYL Tuberculin PPD 5 tu 08/27/18 10:00 Tubersol, Aplisol, Ppd ID 08/27/18 10:01 X1 ONE Problem List (Last Reviewed 07/17/18 @ 08:58 by Jethro Dozier MD) Acute delirium (Acute) Weakness (Acute) Urinary tract infection (Acute) Chronic diastolic heart failure (Chronic) Lymphedema (Chronic) Diabetes mellitus (Chronic) GERD (gastroesophageal reflux disease) (Chronic) Hypothyroidism (Chronic) Lumbar spinal stenosis (Chronic) Osteoarthritis of knees, bilateral (Chronic) Depression (Chronic) Gout (Chronic) Neuropathic pain (Chronic) Vital Signs Temp Pulse Resp BP Pulse Ox 98.2 F 83 16 138/94 H 94 08/22/18 15:26 08/22/18 16:59 08/22/18 15:26 08/22/18 16:59 08/22/18 15:26 Oxygen Delivery Method Room Air Weight: 120.259 kg Body Mass Index (BMI) 39.8 Finger Stick Blood Glucose 166 Sodium 139 mmol/L (136-145) 08/20/18 05:30 Potassium 3.8 mmol/L (3.5-5.1) 08/20/18 05:30 Chloride 100 mmol/L (98-107) 08/20/18 05:30 Carbon Dioxide 30.0 mmol/L (21.0-32.0) 08/20/18 05:30 Anion Gap 9 (5-15) 08/20/18 05:30 BUN 23 mg/dL (7-18) H 08/20/18 05:30 Creatinine 0.79 mg/dL (0.70-1.30) 08/20/18 05:30 Est GFR (MDRD) Af Amer 123 mL/min (>60) 08/20/18 05:30 Est GFR (MDRD) Non-Af 102 mL/min (>60) 08/20/18 05:30 BUN/Creatinine Ratio 29.1 RATIO (10-20) H 08/20/18 05:30 Glucose 134 mg/dL (74-106) H 08/20/18 05:30 Assessment/Plan: Psychotropic Medications: Unnecessary Medications: Bowel Regimen: - Provider Comments Provider responsibility: Provider responsible to enter orders to implement recommendations Provider Comments to Recommendations by Pharmacy: Agree
--- NOTE | 2018-08-22 13:00 | NURSING ---
Pt cleared to come out of isolation, per Cuco Lining Caser.
[2018-08-22 13:50] VITALS: PULSE 82; RESP 18; O2SAT 97
[2018-08-22 15:26] VITALS: BP 138/94; PULSE 83; RESP 16; TEMP 36.8; O2SAT 94
[2018-08-22 16:59] VITALS: BP 138/94; PULSE 83
[2018-08-22] MEDS: traZODone 100 MG Tablet PO (20:42)
[2018-08-23] MEDS: Polyethylene Glycol 3350 17 GM PACKET PO (05:49)
[2018-08-23] MEDS: LINAGLIPTIN 5 MG TABLET PO (05:49)
[2018-08-23] MEDS: Enoxaparin 40 MG/0.4 ML Syringe SC (05:49)
[2018-08-23 05:50] VITALS: BP 155/76; PULSE 56
[2018-08-23] MEDS: Metoprolol Tartrate 25 MG Tablet 12.5 MG PO ×2 (05:50→16:22)
[2018-08-23] MEDS: Levothyroxine 112 MCG Tablet PO (05:50)
[2018-08-23] MEDS: Furosemide 40 MG Tablet PO ×2 (05:51→14:02)
[2018-08-23] MEDS: Losartan Potassium 100 MG Tablet PO (05:51)
[2018-08-23] MEDS: Senna/Docusate Sodium 1 Tablet PO (05:51)
[2018-08-23] MEDS: Empagliflozin 25 MG Tablet PO (05:51)
[2018-08-23] MEDS: Menthol/Lanolin/Calamine/Znox 113 GM Tube 1 APPLIC TOPICAL ×3 (05:54→21:33)
[2018-08-23] MEDS: Nystatin Powder 15gm Bottle 1 APPLIC TOPICAL ×2 (05:54→21:33)
[2018-08-23] MEDS: DULAGLUTIDE 1.5 MG/0.5 ML PEN.INJCTR SQ (05:58)
[2018-08-23 07:00] LABS: Bedside Glucose 209 mg/dL (70-110)
[2018-08-23] MEDS: Allopurinol 100 MG Tablet PO (08:39)
[2018-08-23] MEDS: Gabapentin 300 MG Capsule PO ×2 (08:39→16:22)
[2018-08-23] MEDS: Divalproex Sodium 250 MG Tablet 500 MG PO ×2 (08:39→17:33)
[2018-08-23 10:00] VITALS: PULSE 68; RESP 18; O2SAT 96
--- NOTE | 2018-08-23 10:49 | CASEMGMT ---
BIMS and PHQ9 interview completed on this date for MDS assessment. Throughout interview pt made multiple inappropriate comments toward female workers. ANIL Devries
--- NOTE | 2018-08-23 11:00 | NURSING ---
Pt has new onset hematuria since this morning C/o right flank pain and dysuria that is worsening.
--- NOTE | 2018-08-23 11:12 | NURSING ---
Pt having hematuria and dysuria with right flank pain. Dr. Wheeler updated. NO for UA C&S, levaquin 500mg PO BID x 10 days.
--- NOTE | 2018-08-23 12:22 | CHAPLAIN ---
Type of Pastoral Visit ___ Initial Visit _x__ Follow-up Visit ___ On-call Visit ___ General Patient Visit ___ Spiritual Assessment ___ Family Conference ___ Bereavement ___ Rapid Response ___ Code Blue ___ Other (describe below) Pastoral Care Referral From _x__ Patient ___ Family ___ Nurse ___ Physician ___ Anthropologist ___ Filler Shredder ___ Other (describe below) Sacrament/Intervention _x__ Active listening ___ Anointing ___ Shinto ___ Bereavement ___ Communion ___ Scarlett exploration ___ _x__ Life review ___ Prayer ___ Reconciliation ___ Sacrament of Sick _x__ Supportive presence ___ Wedding ___ Other (describe below) Pastoral Comments
--- NOTE | 2018-08-23 12:59 | CASEMGMT ---
Insurance Clinical updates faxed. Will await continued stay determination. Auth #[id number] ANIL Devries
[2018-08-23] MEDS: levoFLOXacin 500 MG Tablet PO ×2 (14:01→14:02)
[2018-08-23 15:33] LABS: Bacteria 0 SEEN /hpf (None Seen); Mucous, Urine 0 SEEN /hpf (<or=2+); Squamous Epithelial Cells - UA 0 SEEN /hpf (0-5)
[2018-08-23 15:51] LABS: Color, Urine Brown (Yellow); Glucose, Dipstick 1000 mg/dl (Normal); Ketone-Dipstick 5 mg/dl (Negative); Leukocyte Esterase-Dipstick 500 /ul (Negative); Nitrite-Dipstick Negative (Negative); Occult Blood-Urine 250 /ul (Negative); Protein-Dipstick 100 mg/dl (Negative); Urine Bilirubin Dipstick Negative (Negative); Urine Clarity Cloudy (Clear); Urine Urobilinogen Normal (Normal)
[2018-08-23 15:52] VITALS: BP 159/70; PULSE 62; RESP 14; TEMP 36.8; O2SAT 96
[2018-08-23 16:06] LABS: White Blood Cells 25-50 SEEN /hpf (0-5)
[2018-08-23 16:07] LABS: Red Blood Cells-Urine > 100 SEEN /hpf (0-5)
[2018-08-23 16:22] VITALS: BP 159/70; PULSE 62
[2018-08-23] MEDS: traZODone 100 MG Tablet PO (21:34)
[2018-08-24 05:39] VITALS: BP 138/78; PULSE 77
[2018-08-24] MEDS: Furosemide 40 MG Tablet PO ×2 (05:39→14:45)
[2018-08-24] MEDS: Empagliflozin 25 MG Tablet PO (05:39)
[2018-08-24] MEDS: Metoprolol Tartrate 25 MG Tablet 12.5 MG PO ×2 (05:39→17:01)
[2018-08-24] MEDS: Losartan Potassium 100 MG Tablet PO (05:39)
[2018-08-24] MEDS: Menthol/Lanolin/Calamine/Znox 113 GM Tube 1 APPLIC TOPICAL ×3 (05:39→20:28)
[2018-08-24] MEDS: LINAGLIPTIN 5 MG TABLET PO (05:40)
[2018-08-24] MEDS: Nystatin Powder 15gm Bottle 1 APPLIC TOPICAL ×2 (05:40→20:29)
[2018-08-24] MEDS: Levothyroxine 112 MCG Tablet PO (05:40)
[2018-08-24] MEDS: Enoxaparin 40 MG/0.4 ML Syringe SC (05:40)
[2018-08-24] MEDS: Senna/Docusate Sodium 1 Tablet PO ×2 (05:41→17:01)
[2018-08-24 06:41] LABS: Bedside Glucose 172 mg/dL (70-110)
[2018-08-24] MEDS: Allopurinol 100 MG Tablet PO (09:16)
[2018-08-24] MEDS: Divalproex Sodium 250 MG Tablet 500 MG PO ×2 (09:16→17:02)
[2018-08-24] MEDS: Gabapentin 300 MG Capsule PO ×2 (09:16→17:01)
[2018-08-24 15:36] VITALS: BP 144/73; PULSE 61; RESP 16; TEMP 36.2; O2SAT 96
[2018-08-24 17:01] VITALS: PULSE 61
[2018-08-24] MEDS: traZODone 100 MG Tablet PO (20:28)
[2018-08-25 05:21] VITALS: BP 149/73; PULSE 60
[2018-08-25] MEDS: Menthol/Lanolin/Calamine/Znox 113 GM Tube 1 APPLIC TOPICAL ×3 (05:22→20:25)
[2018-08-25 05:23] VITALS: PULSE 60
[2018-08-25] MEDS: Empagliflozin 25 MG Tablet PO (05:23)
[2018-08-25] MEDS: Metoprolol Tartrate 25 MG Tablet 12.5 MG PO ×2 (05:23→16:57)
[2018-08-25] MEDS: levoFLOXacin 500 MG Tablet PO (05:23)
[2018-08-25] MEDS: Furosemide 40 MG Tablet PO ×2 (05:23→13:39)
[2018-08-25] MEDS: Levothyroxine 112 MCG Tablet PO (05:24)
[2018-08-25] MEDS: Losartan Potassium 100 MG Tablet PO (05:24)
[2018-08-25] MEDS: LINAGLIPTIN 5 MG TABLET PO (05:24)
[2018-08-25] MEDS: Enoxaparin 40 MG/0.4 ML Syringe SC (05:25)
[2018-08-25] MEDS: Senna/Docusate Sodium 1 Tablet PO (05:25)
[2018-08-25] MEDS: Nystatin Powder 15gm Bottle 1 APPLIC TOPICAL ×2 (05:27→20:27)
[2018-08-25 07:26] LABS: Bedside Glucose 171 mg/dL (70-110)
[2018-08-25] MEDS: Allopurinol 100 MG Tablet PO (08:21)
[2018-08-25] MEDS: Divalproex Sodium 250 MG Tablet 500 MG PO ×2 (08:21→16:56)
[2018-08-25] MEDS: Gabapentin 300 MG Capsule PO ×2 (08:21→16:55)
[2018-08-25] MEDS: Acetaminophen 500 MG Tablet 1000 MG PO (10:52)
[2018-08-25 15:53] VITALS: BP 159/69; PULSE 68; RESP 18; TEMP 36.2; O2SAT 96
[2018-08-25 16:57] VITALS: PULSE 64
[2018-08-25] MEDS: traZODone 100 MG Tablet PO (20:25)
[2018-08-26 05:28] VITALS: BP 155/72; PULSE 70
[2018-08-26] MEDS: Metoprolol Tartrate 25 MG Tablet 12.5 MG PO ×2 (05:28→17:20)
[2018-08-26] MEDS: Enoxaparin 40 MG/0.4 ML Syringe SC (05:28)
[2018-08-26] MEDS: LINAGLIPTIN 5 MG TABLET PO (05:28)
[2018-08-26] MEDS: Losartan Potassium 100 MG Tablet PO (05:29)
[2018-08-26] MEDS: Levothyroxine 112 MCG Tablet PO (05:29)
[2018-08-26] MEDS: levoFLOXacin 500 MG Tablet PO (05:29)
[2018-08-26] MEDS: Furosemide 40 MG Tablet PO ×2 (05:29→13:56)
[2018-08-26] MEDS: Empagliflozin 25 MG Tablet PO (05:30)
[2018-08-26] MEDS: Menthol/Lanolin/Calamine/Znox 113 GM Tube 1 APPLIC TOPICAL ×3 (05:33→21:43)
[2018-08-26] MEDS: Nystatin Powder 15gm Bottle 1 APPLIC TOPICAL ×2 (05:33→21:43)
[2018-08-26 06:30] LABS: Bedside Glucose 166 mg/dL (70-110)
[2018-08-26] MEDS: Divalproex Sodium 250 MG Tablet 500 MG PO ×2 (08:56→17:20)
[2018-08-26] MEDS: Allopurinol 100 MG Tablet PO (08:56)
[2018-08-26] MEDS: Gabapentin 300 MG Capsule PO ×2 (08:56→17:20)
--- NOTE | 2018-08-26 09:01 | CASEMGMT ---
Insurance Continued stay approved with next update due on 08/28/18. Auth#[id number] Tamia MA, SENIOR SALES ENGINEER
[2018-08-26 15:18] VITALS: BP 129/58; PULSE 60; RESP 16; TEMP 36.6; O2SAT 98
[2018-08-26 17:20] VITALS: BP 129/58; PULSE 60
[2018-08-26] MEDS: traZODone 100 MG Tablet PO (21:42)
[2018-08-27 05:08] VITALS: BP 144/76; PULSE 68
[2018-08-27] MEDS: LINAGLIPTIN 5 MG TABLET PO (05:08)
[2018-08-27] MEDS: Empagliflozin 25 MG Tablet PO (05:08)
[2018-08-27] MEDS: Metoprolol Tartrate 25 MG Tablet 12.5 MG PO ×2 (05:08→17:32)
[2018-08-27] MEDS: Furosemide 40 MG Tablet PO ×2 (05:08→15:13)
[2018-08-27] MEDS: Levothyroxine 112 MCG Tablet PO (05:08)
[2018-08-27] MEDS: Losartan Potassium 100 MG Tablet PO (05:08)
[2018-08-27] MEDS: Menthol/Lanolin/Calamine/Znox 113 GM Tube 1 APPLIC TOPICAL ×2 (05:08→15:13)
[2018-08-27] MEDS: levoFLOXacin 500 MG Tablet PO (05:08)
[2018-08-27] MEDS: Nystatin Powder 15gm Bottle 1 APPLIC TOPICAL (05:09)
[2018-08-27 05:52] LABS: Absolute Lymphocyte Count 2.54 X10^3/ul (0.83-4.51); Absolute Neutrophil Count 4.3 X10^3/uL (2.0-7.7); Basophil# 0.03 X10^3/uL; Basophil% 0.4 % (0-1); Eosinophils% 2.6 % (0-5); Hematocrit 41.9 % (40-54); Hemoglobin 13.7 g/dl (13.0-16.5); Lymphocyte # 2.54 X10^3/ul (4.0); Lymphocyte % 32.5 % (19-41); Mean Corp Hgb Conc 32.7 g/gl (32-36); Mean Corpuscular Hgb 30.3 pg (27.0-32.0); Mean Corpuscular Volume 92.7 fL (80-94); Mean Platelet Vol. 9.2 fl (6.2-12.0); Monocyte# 0.65 X10^3/uL; Monocyte% 8.3 % (0-10); Neutrophil # 4.34 X10^3/uL (2.7-7.7); Neutrophil % 55.6 % (47-70); Platelet Count 469 K/mm3 (150-450); RBC Distribution Width SD 46.1 fl (35.1-43.9); Red Blood Count 4.52 M/mm3 (4.6-6.2); White Blood Count 7.8 K/mm3 (4.4-11.0)
[2018-08-27 05:56] LABS: Anion Gap 10 (5-15); BUN 18 mg/dL (7-18); Calcium,Total 9.1 mg/dL (8.5-10.1); Chloride 102 mmol/L (98-107); EST Glomerular Filtration Rate 88 mL/min (>60); Est Glom Filt Rate - Afr Amer 106 mL/min (>60); Estimated Creatinine Clearance 70.72 ml/min; Glucose 161 mg/dL (74-106); Potassium 3.8 mmol/L (3.5-5.1); Sodium Level 142 mmol/L (136-145)
[2018-08-27 05:59] LABS: POSITIVE COUNT NO; POSITIVE DIFFERENTIAL NO; POSITIVE MORPHOLOGY NO
[2018-08-27 07:01] LABS: Bedside Glucose 146 mg/dL (70-110)
[2018-08-27] MEDS: Allopurinol 100 MG Tablet PO (08:20)
[2018-08-27] MEDS: Gabapentin 300 MG Capsule PO ×2 (08:20→17:31)
[2018-08-27] MEDS: Divalproex Sodium 250 MG Tablet 500 MG PO ×2 (08:20→17:31)
[2018-08-27] MEDS: Tuberculin,Purif.prot.deriv. 50 TU/ML Vial 5 ML ID (11:14)
[2018-08-27 11:20] VITALS: RESP 20
[2018-08-27] MEDS: Acetaminophen 500 MG Tablet 1000 MG PO ×2 (11:22→20:40)
[2018-08-27 16:00] VITALS: BP 132/59; PULSE 59; RESP 18; TEMP 36.4; O2SAT 98
--- NOTE | 2018-08-27 16:25 | CHAPLAIN ---
Type of Pastoral Visit ___ Initial Visit _x__ Follow-up Visit ___ On-call Visit ___ General Patient Visit ___ Spiritual Assessment ___ Family Conference ___ Bereavement ___ Rapid Response ___ Code Blue ___ Other (describe below) Pastoral Care Referral From _x__ Patient ___ Family ___ Nurse ___ Physician ___ Business Objects Analyst ___ Adjunct History Instructor ___ Other (describe below) Sacrament/Intervention _x__ Active listening ___ Anointing ___ Lutheran ___ Bereavement ___ Communion ___ Scarlett exploration ___ ___ Life review ___ Prayer ___ Reconciliation ___ Sacrament of Sick _x__ Supportive presence ___ Wedding ___ Other (describe below) Pastoral Comments patient talks about his pending surgery for tomorrow
[2018-08-27 17:32] VITALS: BP 132/59; PULSE 60
[2018-08-27] MEDS: traZODone 100 MG Tablet PO (20:37)
[2018-08-28 05:01] VITALS: BP 155/68; PULSE 62
[2018-08-28] MEDS: Metoprolol Tartrate 25 MG Tablet 12.5 MG PO (05:01)
[2018-08-28] MEDS: Levothyroxine 112 MCG Tablet PO (05:01)
[2018-08-28 06:55] LABS: Bedside Glucose 141 mg/dL (70-110)
[2018-08-28] MEDS: Gabapentin 300 MG Capsule PO (09:16)
[2018-08-28] MEDS: Allopurinol 100 MG Tablet PO (09:16)
[2018-08-28] MEDS: Divalproex Sodium 250 MG Tablet 500 MG PO (09:16)
--- NOTE | 2018-08-28 09:30 | NURSING ---
PT LEFT VIA W/C W/ TO GO TO [facility] FOR SURGERY.
--- NOTE | 2018-08-28 12:44 | CASEMGMT ---
Insurance Clinical information sent. Pending continued stay approval at this time. Auth#[id number] Tamia MA, OSTEOPATHY DOCTOR
--- NOTE | 2018-08-29 11:25 | CASEMGMT ---
Insurance Notified insurance of resident discharge on 08/28/18 to surgery. Auth#[id number] Tamia MA, CRYSTAL EVALUATOR
--- NOTE | 2018-08-29 12:00 | MDS.RN ---
Information for the mds was obtained from review of the clinical record, interview of resident, staff, and direct observation of resident's care.
--- NOTE | 2018-08-30 08:10 | PCM.DC ---
You will use the following diet at home:: No restrictions, Regular Your food should be the consistency of: Regular Your liquids should be the consistency of: Regular/Thin Discharge Activity: Return to Normal Activity, May Shower, Use Walker Weight Bearing Status: Weight bearing as tolerated Call your doctor if you observe: Fever of 101 or Higher, Inability to urinate, Inability to have a bowel movement, Shortness of breath, Chest pain, Uncontrolled pain Allergies/Adverse Reactions: Allergies cocaine Allergy (Verified 08/16/18 02:59) Unknown atorvastatin calcium [From Lipitor] Adverse Reaction (Verified 08/16/18 02:59) Pain in joints haloperidol [From Haldol] Adverse Reaction (Verified 08/16/18 02:59) Other WENT CRAZY morphine Adverse Reaction (Verified 08/16/18 02:59) Other extremely aggitated oxycodone [From OxyIR] Adverse Reaction (Verified 08/16/18 02:59) Pain in joints extremely aggitated prednisone Adverse Reaction (Verified 08/16/18 02:59) ANXIOUS, INSOMNIA STERIODS Adverse Reaction (Uncoded 08/16/18 02:59) Other ANXIETY INSOMNIA Medications to take at Discharge Paroxetine HCl [Paxil] 40 mg PO DAILY 09/27/16 Potassium Chloride [K-Dur] 20 meq PO BID 09/27/16 Simvastatin [Zocor] 40 mg PO QHS 09/27/16 Sitagliptin Phosphate [Januvia] 100 mg PO DAILY 09/27/16 Torsemide [Demadex] 20 mg PO BID 09/27/16 traZODone [Desyrel] 50 mg PO QHS 09/27/16 Divalproex Sodium [Depakote] 500 mg PO BID 08/14/17 Allopurinol 100 mg PO DAILY 05/17/18 Dulaglutide [Trulicity] 1.5 mg SQ QWEEK 05/17/18 gabapentin 300 mg capsule 300 mg PO BID cap 07/17/18 levothyroxine 100 mcg capsule 112 mcg PO DAILY 07/17/18 Aspirin [Aspirin, Baby] 81 mg PO DAILY@0800 08/16/18 Canagliflozin [Invokana] 300 mg PO DAILY 08/16/18 Diclofenac Sodium 25 mg PO BID 08/16/18 Guaifenesin/Codeine Phosphate [Codeine-Guaifen 10-100 mg/5 ml] 10 ml PO Q6H PRN 08/16/18 Metoprolol Tartrate [Lopressor (beta torie)] 12.5 mg PO BID 08/16/18 Acetaminophen [Tylenol Tablet] 650 mg PO Q6H PRN PRN tablet 08/19/18 Albuterol Aerosols [Ventolin Aerosols] 2.5 mg INHALATION Q4H PRN PRN vial.neb. 08/19/18 Cefdinir 300 mg PO BID #0 08/19/18 Insulin Lispro [Humalog KwikPen] See Protocol SC ACHS 08/19/18 Ipratropium/Albuterol Sulfate [Duoneb] 3 ml INHALATION Q4H.RT 08/19/18 Losartan Potassium 100 mg PO DAILY 08/19/18 Menthol/Lanolin/Calamine/Znox [Calmoseptine Ointment] 1 applic TOPICAL TID 08/19/18 Primary Care Physician: Gil Wheeler Chi, MD [Primary Care Provider] - Please follow up with your Primary Care Physician in: 1 weeks Test Results: Test results from this visit will be discussed in further detail at your follow-up appointment, if applicable. Please Follow Up With: Gil Wheeler Chi, MD When: 1 weeks Please Follow Up With: Dr Dozier/Wyatt Dubon NP When: 4 weeks Please Follow Up With: Sandra Hicks MSN, CLEANING ASSOCIATE Proposed Discharge Date: 08/28/18
--- NOTE | 2018-08-30 08:12 | PCM.DC.SUM ---
Discharge Date and Diagnosis Date of Admission: 08/19/18 Date of Discharge: 08/28/18 - Secondary Discharge Diagnosis Chronic Problems (Last Reviewed 07/17/18 @ 08:58 by Jethro Dozier MD) Chronic diastolic heart failure (Chronic) Lymphedema (Chronic) Diabetes mellitus (Chronic) GERD (gastroesophageal reflux disease) (Chronic) Hypothyroidism (Chronic) Lumbar spinal stenosis (Chronic) Osteoarthritis of knees, bilateral (Chronic) Depression (Chronic) Gout (Chronic) Neuropathic pain (Chronic) Abnormal electrocardiogram (Chronic) Non-rheumatic tricuspid valve insufficiency (Chronic) Chronic diastolic (congestive) heart failure (Chronic) Hyperlipidemia (Chronic) Hypertension (Chronic) Chronic acquired lymphedema (Chronic) Hospital Course and Treatment Consultations 08/24/18 23:16 Consult: Onc/Wound/rolling attendant Routine Comment: coccyx wound Reason for Consult:: coccyx wound Operations: None Procedures: None Summary of Care Provided: The patient is a 73 year old Male with below past medical history hospitalized for acute delirium secondary to sepsis from [place] urinary tract infection, community acquired pneumonia, rhinovirus, admitted to TCU with debility, here for rehabilitation, strengthening, prior to lumbar surgery 08/28/2018. Discharge to [facility] for lumbar surgery with Dr. Saturnino Dupree. - Physical Exam Vital Signs Temp Pulse Resp BP Pulse Ox 97.6 F L 62 18 155/68 H 98 08/27/18 16:00 08/28/18 05:01 08/27/18 16:00 08/28/18 05:01 08/27/18 16:00 Oxygen Delivery Method Room Air Weight: 119.805 kg Body Mass Index (BMI) 39.8 Finger Stick Blood Glucose 166 Discharge Diet: No Restrictions Discharge Activity: Return to Normal Activity, May Shower, Use Walker Weight Bearing Status: Weight bearing as tolerated Call your doctor if you observe: Fever of 101 or Higher, Inability to urinate, Inability to have a bowel movement, Shortness of breath, Chest pain, Uncontrolled pain Home Medications: Medications to take at Discharge Paroxetine HCl [Paxil] 40 mg PO DAILY 09/27/16 Potassium Chloride [K-Dur] 20 meq PO BID 09/27/16 Simvastatin [Zocor] 40 mg PO QHS 09/27/16 Sitagliptin Phosphate [Januvia] 100 mg PO DAILY 09/27/16 Torsemide [Demadex] 20 mg PO BID 09/27/16 traZODone [Desyrel] 50 mg PO QHS 09/27/16 Divalproex Sodium [Depakote] 500 mg PO BID 08/14/17 Allopurinol 100 mg PO DAILY 05/17/18 Dulaglutide [Trulicity] 1.5 mg SQ QWEEK 05/17/18 gabapentin 300 mg capsule 300 mg PO BID cap 07/17/18 levothyroxine 100 mcg capsule 112 mcg PO DAILY 07/17/18 Aspirin [Aspirin, Baby] 81 mg PO DAILY@0800 08/16/18 Canagliflozin [Invokana] 300 mg PO DAILY 08/16/18 Diclofenac Sodium 25 mg PO BID 08/16/18 Guaifenesin/Codeine Phosphate [Codeine-Guaifen 10-100 mg/5 ml] 10 ml PO Q6H PRN 08/16/18 Metoprolol Tartrate [Lopressor (beta torie)] 12.5 mg PO BID 08/16/18 Acetaminophen [Tylenol Tablet] 650 mg PO Q6H PRN PRN tablet 08/19/18 Albuterol Aerosols [Ventolin Aerosols] 2.5 mg INHALATION Q4H PRN PRN vial.neb. 08/19/18 Cefdinir 300 mg PO BID #0 08/19/18 Insulin Lispro [Humalog KwikPen] See Protocol SC ACHS 08/19/18 Ipratropium/Albuterol Sulfate [Duoneb] 3 ml INHALATION Q4H.RT 08/19/18 Losartan Potassium 100 mg PO DAILY 08/19/18 Menthol/Lanolin/Calamine/Znox [Calmoseptine Ointment] 1 applic TOPICAL TID 08/19/18 Primary Care Physician: Gil Wheeler Chi, MD [Primary Care Provider] - Please follow up with your Primary Care Physician in: 1 weeks Please Follow Up With: Gil Wheeler Chi, MD When: 1 weeks Please Follow Up With: Dr Dozier/Wyatt Dubon NP When: 4 weeks Please Follow Up With: Sandra Hicks MSN, BRANCH LEAD Medical Necessity - Tobacco Use Smoking Status: Former smoker Tobacco Use: Non-smoker Meaningful Use Info Meaningful Use Diagnoses (Choose all that apply): None applicable
== END 2018-08-29 00:20 | disposition short-term general hospital (02) | DRG 947 ==
PROVIDERS: Admitting Provider Family Medicine Geriatric Medicine; Family Provider Family Medicine Geriatric Medicine; PCP Family Medicine Geriatric Medicine; Visit Provider Family Medicine Geriatric Medicine
DX: R53.81 Other malaise (principal); J18.9 Pneumonia, unspecified organism; I50.32 Chronic diastolic (congestive) heart failure; N39.0 Urinary tract infection, site not specified; F32.9 Major depressive disorder, single episode, unspecified; E87.6 Hypokalemia; E78.5 Hyperlipidemia, unspecified; I11.0 Hypertensive heart disease with heart failure; K21.9 Gastro-esophageal reflux disease without esophagitis; E11.9 Type 2 diabetes mellitus without complications; M48.061 Spinal stenosis, lumbar region without neurogenic claudication; E03.9 Hypothyroidism, unspecified; I25.10 Atherosclerotic heart disease of native coronary artery without angina pectoris; M10.9 Gout, unspecified; G47.33 Obstructive sleep apnea (adult) (pediatric); Z87.891 Personal history of nicotine dependence; B35.4 Tinea corporis; B96.89 Other specified bacterial agents as the cause of diseases classified elsewhere
CPT/HCPCS: 36415; 80048; 81001; 82962; 85025; 87077; 87086; 87088; 87186; 92523; 94640; 97110; 97116; 97162; 97166; 97530; 97535; 97802

== ENCOUNTER 2018-08-30 23:38 | Inpatient (IN) | payer MEDICARE, SELFPAY ==
[2018-08-30 23:57] VITALS: BP 135/67; PULSE 63; RESP 20; TEMP 36.3; O2SAT 92; BMI 40.1
--- NOTE | 2018-08-30 23:57 | NURSING ---
Pt arrived at 23:38 from [facility] via cot
[2018-08-31 00:09] VITALS: BMI 40.1
[2018-08-31] MEDS: Allopurinol 100 MG Tablet PO (05:22)
[2018-08-31] MEDS: Gabapentin 300 MG Capsule PO ×2 (05:22→17:10)
[2018-08-31] MEDS: Losartan Potassium 100 MG Tablet PO ×2 (05:23→17:10)
[2018-08-31] MEDS: Divalproex Sodium 250 MG Tablet 500 MG PO ×2 (05:23→17:10)
[2018-08-31] MEDS: Empagliflozin 25 MG Tablet PO (05:23)
[2018-08-31] MEDS: LINAGLIPTIN 5 MG TABLET PO (05:23)
[2018-08-31] MEDS: Levothyroxine 112 MCG Tablet PO (05:23)
[2018-08-31] MEDS: Glucerna Shake 120 ML LIQUID PO ×4 (05:24→21:58)
[2018-08-31] MEDS: Nystatin Powder 15gm Bottle 1 APPLIC TOPICAL ×2 (05:24→22:05)
[2018-08-31] MEDS: Acetaminophen 500 MG Tablet 1000 MG PO (05:24)
[2018-08-31] MEDS: Senna Tablet 1 TABLET PO (05:24)
[2018-08-31] MEDS: Menthol/Lanolin/Calamine/Znox 113 GM Tube 1 APPLIC TOPICAL ×3 (05:24→22:05)
[2018-08-31 05:25] VITALS: BP 152/84; PULSE 70
[2018-08-31] MEDS: Furosemide 40 MG Tablet PO ×2 (05:25→14:10)
[2018-08-31] MEDS: Metoprolol(XL)Succ 25 MG Tablet 12.5 MG PO ×2 (05:25→17:10)
[2018-08-31 07:11] LABS: Bedside Glucose 165 mg/dL (70-110)
[2018-08-31 08:07] LABS: Absolute Lymphocyte Count 2.84 X10^3/ul (0.83-4.51); Absolute Neutrophil Count 6.9 X10^3/uL (2.0-7.7); Basophil# 0.03 X10^3/uL; Basophil% 0.3 % (0-1); Eosinophil# 0.08 X10^3/uL; Eosinophils% 0.7 % (0-5); Hematocrit 40.3 % (40-54); Hemoglobin 13.2 g/dl (13.0-16.5); Lymphocyte # 2.84 X10^3/ul (4.0); Lymphocyte % 25.6 % (19-41); Mean Corp Hgb Conc 32.8 g/gl (32-36); Mean Corpuscular Hgb 30.8 pg (27.0-32.0); Mean Corpuscular Volume 93.9 fL (80-94); Monocyte# 1.22 X10^3/uL; Neutrophil # 6.87 X10^3/uL (2.7-7.7); Platelet Count 437 K/mm3 (150-450); RBC Distribution Width CV 14.4 % (11.6-14.6); RBC Distribution Width SD 47.1 fl (35.1-43.9); Red Blood Count 4.29 M/mm3 (4.6-6.2); White Blood Count 11.1 K/mm3 (4.4-11.0)
[2018-08-31 08:08] LABS: POSITIVE COUNT NO; POSITIVE DIFFERENTIAL NO; POSITIVE MORPHOLOGY NO
[2018-08-31 08:24] LABS: Anion Gap 8 (5-15); BUN 22 mg/dL (7-18); BUN/Creat Ratio 28.7 RATIO (10-20); Calcium,Total 8.9 mg/dL (8.5-10.1); Chloride 102 mmol/L (98-107); Creatinine, Serum 0.77 mg/dL (0.70-1.30); EST Glomerular Filtration Rate 106 mL/min (>60); Est Glom Filt Rate - Afr Amer 128 mL/min (>60); Estimated Creatinine Clearance 63.65 ml/min; Glucose 155 mg/dL (74-106); Potassium 3.1 mmol/L (3.5-5.1); Sodium Level 145 mmol/L (136-145)
[2018-08-31] MEDS: Aspirin 81 MG TAB.CHEW PO (08:47)
--- NOTE | 2018-08-31 09:57 | PCM.HP.STD ---
Problem List (1) Low back pain Status: Acute (2) Chronic diastolic heart failure Status: Chronic (3) Lymphedema Status: Chronic (4) Diabetes mellitus Status: Chronic (5) GERD (gastroesophageal reflux disease) Status: Chronic (6) Hypothyroidism Status: Chronic (7) Lumbar spinal stenosis Status: Chronic (8) Osteoarthritis of knees, bilateral Status: Chronic (9) Depression Status: Chronic (10) Gout Status: Chronic (11) Neuropathic pain Status: Chronic (12) Hyperlipidemia Status: Chronic Qualifiers: History of Present Illness Date of Admission: 08/30/18 Chief Complaint: Here for rehabilitation, strengthening, prior to discharge home with spouse. The patient is a 73 year old Male with below past medical history hospitalized at [facility], underwent lumbar revision surgery 08/28/2018, readmitted to TCU with debility, here for rehabilitation, strengthening, prior to discharge home with spouse. Past Medical History Past Medical History (Chronic Problems): Chronic Problems (Last Reviewed 07/17/18 @ 08:58 by Jethro Dozier MD) Chronic diastolic heart failure (Chronic) Lymphedema (Chronic) Diabetes mellitus (Chronic) GERD (gastroesophageal reflux disease) (Chronic) Hypothyroidism (Chronic) Lumbar spinal stenosis (Chronic) Osteoarthritis of knees, bilateral (Chronic) Depression (Chronic) Gout (Chronic) Neuropathic pain (Chronic) Abnormal electrocardiogram (Chronic) Non-rheumatic tricuspid valve insufficiency (Chronic) Chronic diastolic (congestive) heart failure (Chronic) Hyperlipidemia (Chronic) Hypertension (Chronic) Chronic acquired lymphedema (Chronic) Medical History: Medical History (Last Reviewed 07/17/18 @ 08:58 by Jethro Dozier MD) Non-rheumatic tricuspid valve insufficiency (Chronic) I36.1 Chronic diastolic (congestive) heart failure (Chronic) I50.32 Hyperlipidemia (Chronic) E78.5 Hypertension (Chronic) I10 Asbestos exposure Z77.090 GERD (gastroesophageal reflux disease) K21.9 Hypothyroidism E03.9 Obstructive sleep apnea G47.33 Type 2 diabetes mellitus E11.9 Venous stasis dermatitis of right lower extremity (Inactive) I83.11 Allergies cocaine Allergy (Verified 08/16/18 02:59) Unknown atorvastatin calcium [From Lipitor] Adverse Reaction (Verified 08/16/18 02:59) Pain in joints haloperidol [From Haldol] Adverse Reaction (Verified 08/16/18 02:59) Other WENT CRAZY morphine Adverse Reaction (Verified 08/16/18 02:59) Other extremely aggitated oxycodone [From OxyIR] Adverse Reaction (Verified 08/16/18 02:59) Pain in joints extremely aggitated prednisone Adverse Reaction (Verified 08/16/18 02:59) ANXIOUS, INSOMNIA STERIODS Adverse Reaction (Uncoded 08/16/18 02:59) Other ANXIETY INSOMNIA Home Medications: Ambulatory Orders Medication Instructions Recorded Paroxetine HCl [Paxil] 40 mg PO DAILY 09/27/16 Potassium Chloride [K-Dur] 20 meq PO BID 09/27/16 Simvastatin [Zocor] 40 mg PO QHS 09/27/16 Sitagliptin Phosphate [Januvia] 100 mg PO DAILY 09/27/16 Torsemide [Demadex] 20 mg PO BID 09/27/16 traZODone [Desyrel] 50 mg PO QHS 09/27/16 Divalproex Sodium [Depakote] 500 mg PO BID 08/14/17 Allopurinol 100 mg PO DAILY 05/17/18 gabapentin 300 mg capsule 300 mg PO BID cap 07/17/18 levothyroxine 100 mcg capsule 112 mcg PO DAILY 07/17/18 Aspirin [Aspirin, Baby] 81 mg PO DAILY@0800 08/16/18 Canagliflozin [Invokana] 300 mg PO DAILY 08/16/18 Diclofenac Sodium 25 mg PO BID 08/16/18 Albuterol Aerosols [Ventolin 2.5 mg INHALATION Q4H PRN PRN 08/19/18 Aerosols] vial.neb. Losartan Potassium 100 mg PO BID 08/19/18 Menthol/Lanolin/Calamine/Znox 1 applic TOPICAL TID 08/19/18 [Calmoseptine Ointment] Acetaminophen [Tylenol Tablet] 1,000 mg PO DAILY 08/31/18 Surgical History: Surgical History (Last Reviewed 07/17/18 @ 08:58 by Jethro Dozier MD) Cochlear implant in place Z96.21 H/O shoulder surgery Z98.890 History of left heart catheterization Onset Date: 08/15/17 Z98.890 non obstructive coronary arteries History of right knee joint replacement Z96.651 Hx of cholecystectomy Z90.49 Previous back surgery Z98.890 Surgical History: cholecystectomy, total knee arthroplasty - Right., - - Shoulder surgery with rotator cuff repair, back surgery, cochlear implant. Psychiatric History: Depression Lives: Spouse/ Significant Other Smoking Status: Former smoker Tobacco Use: Non-smoker Alcohol: None Drugs: None - *Family History Maternal Family History: Family History (Last Reviewed 07/17/18 @ 08:58 by Jethro Dozier MD) Mother Hypertension Father Hypertension History Items: Hypertension Paternal Family History: Family History (Last Reviewed 07/17/18 @ 08:58 by Jethro Dozier MD) Mother Hypertension Father Hypertension History Items: Heart Disease - decased age 73, Hypertension Review of Systems Constitutional: Denies: Chills, Fever, Weight Change HEENT: Denies: Head Aches, Sinus Congestion, Sinus Drainage Cardiovascular: Denies: Chest Pain, Palpitations Respiratory: Denies: Cough, Shortness of breath at rest, Sputum production Gastrointestinal: Denies: Abdominal Pain, Nausea, Vomiting Genitourinary: Denies: Dysuria Musculoskeletal: Denies: Joint Pain, Joint Tenderness Skin: Denies: Rash, Wounds Neurological: Denies: Numbness, Tingling, Focal weakness Psychiatric: Denies: Anxiety, Depression, Homicidal Ideations, Suicidal Ideations Hematologic/ Lymphatic: Denies: Easy Bruising, Easy Bleeding VTE Information - Inpt Only VTE Present on Admission: No VTE Mechan Device Prophylaxis: Knee High ESTRELLITA Hose VTE Pharm Prophylaxis ordered?: Yes Patient Problems: Active and Suspected Problems (Last Reviewed 07/17/18 @ 08:58 by Jethro Dozier MD) Low back pain (Acute) - Physical Exam General: Alert, Oriented x3, Cooperative HEENT: Atraumatic, PERRLA, EOMI, Normocephalic Neck: Supple, No JVD, Negative Carotid Bruits Lungs: Clear to auscultation, Normal air movement Cardiovascular: Regular rate, No murmurs Abdomen: Bowel Sounds Present, Soft, Non Tender Extremities: No edema, Capillary Refill Less than 3 Seconds Skin: No rashes, No breakdown Musculoskeletal: No Tenderness to Palpation of Joints or Extremities Neurological: Cranial nerves II-XII grossly intact Psych/Mental Status: Normal Affect, Appropriate Vital Signs Temp Pulse Resp BP Pulse Ox 97.4 F L 70 20 H 152/84 H 92 08/30/18 23:57 08/31/18 05:25 08/30/18 23:57 08/31/18 05:25 08/30/18 23:57 Oxygen Delivery Method Room Air Weight: 119.748 kg Body Mass Index (BMI) 40.1 Finger Stick Blood Glucose 166 Laboratory Tests Past 24 Hrs 08/31/18 08/31/18 07:28 07:28 WBC 11.1 H RBC 4.29 L Hgb 13.2 Hct 40.3 MCV 93.9 MCH 30.8 MCHC 32.8 RDW 14.4 RDW Differential 47.1 H Plt Count 437 MPV 10.0 Immature Gran % (Auto) 0.400 Neut % (Auto) 62.0 Lymph % (Auto) 25.6 [place] % (Auto) 11.0 H Eos % (Auto) 0.7 Baso % (Auto) 0.3 Absolute Neuts (auto) 6.9 Absolute Lymphs (auto) 2.84 Total Counted Not Reportable Sodium 145 Potassium 3.1 L Chloride 102 Carbon Dioxide 35.0 H Anion Gap 8 BUN 22 H Creatinine 0.77 Estim Creat Clear Calc 63.65 Est GFR (MDRD) Af Amer 128 Est GFR (MDRD) Non-Af 106 BUN/Creatinine Ratio 28.7 H Glucose 155 H Calcium 8.9 POC Glucose 08/31/18 06:37 POC Glucose 165 H Assessment/Plan All Active Problems (Last Reviewed 07/17/18 @ 08:58 by Jethro Dozier MD) Acute delirium (Acute) Weakness (Acute) Urinary tract infection (Acute) Low back pain (Acute) Preop cardiovascular exam (Acute) Skin tear of right lower leg without complication (Acute) Cellulitis (Resolved) Fissure in skin of foot (Acute) Hypokalemia (Resolved) 73 year old male with below past medical history hospitalized for lumbar revision surgery 08/28/2018, readmitted to TCU with debility, here for rehabilitation, strengthening, prior to discharge home with spouse. Debility - PT/OT. Pain - Tylenol 1000MG Q6H PRN mild pain, Oxycodone 5MG Q6H PRN severe pain. Bowel - Miralax 17GM daily, Senna/colace 2 tablets BID, Dulcolax 10MG PO daily PRN. Pneumonia vaccination - Administer Prevnar 13 and/or Pneumovax 23 as necessary. DVT prophylaxis - Lovenox 40MG SC daily. Shortness of breath - Albuterol 2.5MG Q4H PRN. Gout - Allopurinol 100MG daily. Coronary Artery Disease - Metoprolol succinate 12.5MG twice daily, Losartan 100MG twice daily, Aspirin 81MG daily. Ostearthritis - Diclofenac 25MG twice daily. Neuropathic pain - Depakote 500MG twice daily, Gabapentin 300MG twice daily. Diabetes Mellitus II - Lantus 75 units QHS, Jardiance 25MG daily, Tradjenta 5MG daily. Chronic diastolic heart failure - Metoprolol 12.5MG twice daily, Lasix 40MG twice daily. Nutrition - Glucerna 120ML 4x/day. Hypothyroidism - Levothyroxine 112MCG daily. Skin irritation - Calmoseptine TID bilateral buttocks, Eucerin BID feet, heels, legs. Tinea Corporis - Nystatin BID groin. Depression - Paroxetine 40MG twice daily. Hypokalemia - K-Dur 20MEQ BID. Hyperlipidemia - Simvastatin 40MG QHS. Insomnia - Trazodone 50MG QHS.
--- NOTE | 2018-08-31 10:02 | HP.PCM_ITS ---
Problem List (1) Low back pain Status: Acute (2) Chronic diastolic heart failure Status: Chronic (3) Lymphedema Status: Chronic (4) Diabetes mellitus Status: Chronic (5) GERD (gastroesophageal reflux disease) Status: Chronic (6) Hypothyroidism Status: Chronic (7) Lumbar spinal stenosis Status: Chronic (8) Osteoarthritis of knees, bilateral Status: Chronic (9) Depression Status: Chronic (10) Gout Status: Chronic (11) Neuropathic pain Status: Chronic (12) Hyperlipidemia Status: Chronic Qualifiers: History of Present Illness Date of Admission: 08/30/18 Chief Complaint: Here for rehabilitation, strengthening, prior to discharge home with spouse. The patient is a 73 year old Male with below past medical history hospitalized at [facility], underwent lumbar revision surgery 08/28/2018, readmitted to TCU with debility, here for rehabilitation, strengthening, prior to discharge home with spouse. Past Medical History Past Medical History (Chronic Problems): Chronic Problems (Last Reviewed 07/17/18 @ 08:58 by Jethro Dozier MD) Chronic diastolic heart failure (Chronic) Lymphedema (Chronic) Diabetes mellitus (Chronic) GERD (gastroesophageal reflux disease) (Chronic) Hypothyroidism (Chronic) Lumbar spinal stenosis (Chronic) Osteoarthritis of knees, bilateral (Chronic) Depression (Chronic) Gout (Chronic) Neuropathic pain (Chronic) Abnormal electrocardiogram (Chronic) Non-rheumatic tricuspid valve insufficiency (Chronic) Chronic diastolic (congestive) heart failure (Chronic) Hyperlipidemia (Chronic) Hypertension (Chronic) Chronic acquired lymphedema (Chronic) Medical History: Medical History (Last Reviewed 07/17/18 @ 08:58 by Jethro Dozier MD) Non-rheumatic tricuspid valve insufficiency (Chronic) I36.1 Chronic diastolic (congestive) heart failure (Chronic) I50.32 Hyperlipidemia (Chronic) E78.5 Hypertension (Chronic) I10 Asbestos exposure Z77.090 GERD (gastroesophageal reflux disease) K21.9 Hypothyroidism E03.9 Obstructive sleep apnea G47.33 Type 2 diabetes mellitus E11.9 Venous stasis dermatitis of right lower extremity (Inactive) I83.11 Allergies cocaine Allergy (Verified 08/16/18 02:59) Unknown atorvastatin calcium [From Lipitor] Adverse Reaction (Verified 08/16/18 02:59) Pain in joints haloperidol [From Haldol] Adverse Reaction (Verified 08/16/18 02:59) Other WENT CRAZY morphine Adverse Reaction (Verified 08/16/18 02:59) Other extremely aggitated oxycodone [From OxyIR] Adverse Reaction (Verified 08/16/18 02:59) Pain in joints extremely aggitated prednisone Adverse Reaction (Verified 08/16/18 02:59) ANXIOUS, INSOMNIA STERIODS Adverse Reaction (Uncoded 08/16/18 02:59) Other ANXIETY INSOMNIA Home Medications: Ambulatory Orders Medication Instructions Recorded Paroxetine HCl [Paxil] 40 mg PO DAILY 09/27/16 Potassium Chloride [K-Dur] 20 meq PO BID 09/27/16 Simvastatin [Zocor] 40 mg PO QHS 09/27/16 Sitagliptin Phosphate [Januvia] 100 mg PO DAILY 09/27/16 Torsemide [Demadex] 20 mg PO BID 09/27/16 traZODone [Desyrel] 50 mg PO QHS 09/27/16 Divalproex Sodium [Depakote] 500 mg PO BID 08/14/17 Allopurinol 100 mg PO DAILY 05/17/18 gabapentin 300 mg capsule 300 mg PO BID cap 07/17/18 levothyroxine 100 mcg capsule 112 mcg PO DAILY 07/17/18 Aspirin [Aspirin, Baby] 81 mg PO DAILY@0800 08/16/18 Canagliflozin [Invokana] 300 mg PO DAILY 08/16/18 Diclofenac Sodium 25 mg PO BID 08/16/18 Albuterol Aerosols [Ventolin 2.5 mg INHALATION Q4H PRN PRN 08/19/18 Aerosols] vial.neb. Losartan Potassium 100 mg PO BID 08/19/18 Menthol/Lanolin/Calamine/Znox 1 applic TOPICAL TID 08/19/18 [Calmoseptine Ointment] Acetaminophen [Tylenol Tablet] 1,000 mg PO DAILY 08/31/18 Surgical History: Surgical History (Last Reviewed 07/17/18 @ 08:58 by Jethro Dozier MD) Cochlear implant in place Z96.21 H/O shoulder surgery Z98.890 History of left heart catheterization Onset Date: 08/15/17 Z98.890 non obstructive coronary arteries History of right knee joint replacement Z96.651 Hx of cholecystectomy Z90.49 Previous back surgery Z98.890 Surgical History: cholecystectomy, total knee arthroplasty - Right., - - Shoulder surgery with rotator cuff repair, back surgery, cochlear implant. Psychiatric History: Depression Lives: Spouse/ Significant Other Smoking Status: Former smoker Tobacco Use: Non-smoker Alcohol: None Drugs: None - *Family History Maternal Family History: Family History (Last Reviewed 07/17/18 @ 08:58 by Jethro Dozier MD) Mother Hypertension Father Hypertension History Items: Hypertension Paternal Family History: Family History (Last Reviewed 07/17/18 @ 08:58 by Jethro oDzier MD) Mother Hypertension Father Hypertension History Items: Heart Disease - decased age 73, Hypertension Review of Systems Constitutional: Denies: Chills, Fever, Weight Change HEENT: Denies: Head Aches, Sinus Congestion, Sinus Drainage Cardiovascular: Denies: Chest Pain, Palpitations Respiratory: Denies: Cough, Shortness of breath at rest, Sputum production Gastrointestinal: Denies: Abdominal Pain, Nausea, Vomiting Genitourinary: Denies: Dysuria Musculoskeletal: Denies: Joint Pain, Joint Tenderness Skin: Denies: Rash, Wounds Neurological: Denies: Numbness, Tingling, Focal weakness Psychiatric: Denies: Anxiety, Depression, Homicidal Ideations, Suicidal Id eations Hematologic/ Lymphatic: Denies: Easy Bruising, Easy Bleeding VTE Information - Inpt Only VTE Present on Admission: No VTE Mechan Device Prophylaxis: Knee High ESTRELLITA Hose VTE Pharm Prophylaxis ordered?: Yes Patient Problems: Active and Suspected Problems (Last Reviewed 07/17/18 @ 08:58 by Jethro Dozier MD) Low back pain (Acute) - Physical Exam General: Alert, Oriented x3, Cooperative HEENT: Atraumatic, PERRLA, EOMI, Normocephalic Neck: Supple, No JVD, Negative Carotid Bruits Lungs: Clear to auscultation, Normal air movement Cardiovascular: Regular rate, No murmurs Abdomen: Bowel Sounds Present, Soft, Non Tender Extremities: No edema, Capillary Refill Less than 3 Seconds Skin: No rashes, No breakdown Musculoskeletal: No Tenderness to Palpation of Joints or Extremities Neurological: Cranial nerves II-XII grossly intact Psych/Mental Status: Normal Affect, Appropriate Vital Signs Temp Pulse Resp BP Pulse Ox 97.4 F L 70 20 H 152/84 H 92 08/30/18 23:57 08/31/18 05:25 08/30/18 23:57 08/31/18 05:25 08/30/18 23:57 Oxygen Delivery Method Room Air Weight: 119.748 kg Body Mass Index (BMI) 40.1 Finger Stick Blood Glucose 166 Laboratory Tests Past 24 Hrs 08/31/18 08/31/18 07:28 07:28 WBC 11.1 H RBC 4.29 L Hgb 13.2 Hct 40.3 MCV 93.9 MCH 30.8 MCHC 32.8 RDW 14.4 RDW Differential 47.1 H Plt Count 437 MPV 10.0 Immature Gran % (Auto) 0.400 Neut % (Auto) 62.0 Lymph % (Auto) 25.6 Chambers % (Auto) 11.0 H Eos % (Auto) 0.7 Baso % (Auto) 0.3 Absolute Neuts (auto) 6.9 Absolute Lymphs (auto) 2.84 Total Counted Not Reportable Sodium 145 Potassium 3.1 L Chloride 102 Carbon Dioxide 35.0 H Anion Gap 8 BUN 22 H Creatinine 0.77 Estim Creat Clear Calc 63.65 Est GFR (MDRD) Af Amer 128 Est GFR (MDRD) Non-Af 106 BUN/Creatinine Ratio 28.7 H Glucose 155 H Calcium 8.9 POC Glucose 08/31/18 06:37 POC Glucose 165 H Assessment/Plan All Active Problems (Last Reviewed 07/17/18 @ 08:58 by Jethro Dozier MD) Acute delirium (Acute) Weakness (Acute) Urinary tract infection (Acute) Low back pain (Acute) Preop cardiovascular exam (Acute) Skin tear of right lower leg without complication (Acute) Cellulitis (Resolved) Fissure in skin of foot (Acute) Hypokalemia (Resolved) 73 year old male with below past medical history hospitalized for lumbar revision surgery 08/28/2018, readmitted to TCU with debility, here for rehabilitation, strengthening, prior to discharge home with spouse. * Debility - PT/OT. * Pain - Tylenol 1000MG Q6H PRN mild pain, Oxycodone 5MG Q6H PRN severe pain. * Bowel - Miralax 17GM daily, Senna/colace 2 tablets BID, Dulcolax 10MG PO daily PRN. * Pneumonia vaccination - Administer Prevnar 13 and/or Pneumovax 23 as necessary. * DVT prophylaxis - Lovenox 40MG SC daily. * Shortness of breath - Albuterol 2.5MG Q4H PRN. * Gout - Allopurinol 100MG daily. * Coronary Artery Disease - Metoprolol succinate 12.5MG twice daily, Losartan 100MG twice daily, Aspirin 81MG daily. * Ostearthritis - Diclofenac 25MG twice daily. * Neuropathic pain - Depakote 500MG twice daily, Gabapentin 300MG twice daily. * Diabetes Mellitus II - Lantus 75 units QHS, Jardiance 25MG daily, Tradjenta 5MG daily. * Chronic diastolic heart failure - Metoprolol 12.5MG twice daily, Lasix 40MG twice daily. * Nutrition - Glucerna 120ML 4x/day. * Hypothyroidism - Levothyroxine 112MCG daily. * Skin irritation - Calmoseptine TID bilateral buttocks, Eucerin BID feet, heels, legs. * Tinea Corporis - Nystatin BID groin. * Depression - Paroxetine 40MG twice daily. * Hypokalemia - K-Dur 20MEQ BID. * Hyperlipidemia - Simvastatin 40MG QHS. * Insomnia - Trazodone 50MG QHS.
[2018-08-31 14:15] VITALS: PULSE 62; RESP 18; O2SAT 98
[2018-08-31] MEDS: Magnesium Citrate 300 ML PO (15:19)
[2018-08-31 15:30] VITALS: BP 115/54; PULSE 61; RESP 20; TEMP 36.3; O2SAT 94
[2018-08-31 17:10] VITALS: BP 115/54; PULSE 61
[2018-08-31] MEDS: Senna/Docusate Sodium 1 Tablet 2 TABLET PO (17:10)
[2018-08-31] MEDS: Tuberculin,Purif.prot.deriv. 50 TU/ML Vial 5 ML ID (17:12)
[2018-08-31] MEDS: traZODone 50 MG Tablet PO (21:59)
[2018-08-31 22:10] LABS: Bedside Glucose 207 mg/dL (70-110)
[2018-09-01] MEDS: HYDROcodone Bitartrate/Apap 5/325 Tablet PO ×2 (05:07→21:53)
[2018-09-01 05:08] VITALS: BP 123/67; PULSE 56
[2018-09-01] MEDS: Senna/Docusate Sodium 1 Tablet 2 TABLET PO ×2 (05:08→17:37)
[2018-09-01] MEDS: Metoprolol(XL)Succ 25 MG Tablet 12.5 MG PO ×2 (05:08→17:37)
[2018-09-01] MEDS: Furosemide 40 MG Tablet PO ×2 (05:09→13:40)
[2018-09-01] MEDS: Divalproex Sodium 250 MG Tablet 500 MG PO ×2 (05:09→17:37)
[2018-09-01] MEDS: Gabapentin 300 MG Capsule PO ×2 (05:09→17:37)
[2018-09-01] MEDS: Losartan Potassium 100 MG Tablet PO ×2 (05:09→17:37)
[2018-09-01] MEDS: Levothyroxine 112 MCG Tablet PO (05:10)
[2018-09-01] MEDS: LINAGLIPTIN 5 MG TABLET PO (05:11)
[2018-09-01] MEDS: Empagliflozin 25 MG Tablet PO (05:11)
[2018-09-01] MEDS: Polyethylene Glycol 3350 17 GM PACKET PO (05:12)
[2018-09-01] MEDS: Enoxaparin 40 MG/0.4 ML Syringe SC (05:12)
[2018-09-01] MEDS: Allopurinol 100 MG Tablet PO (05:12)
[2018-09-01] MEDS: Menthol/Lanolin/Calamine/Znox 113 GM Tube 1 APPLIC TOPICAL ×3 (05:19→21:55)
[2018-09-01] MEDS: Nystatin Powder 15gm Bottle 1 APPLIC TOPICAL ×2 (05:19→21:55)
[2018-09-01 06:50] LABS: Anion Gap 3 (5-15); BUN 19 mg/dL (7-18); BUN/Creat Ratio 23.2 RATIO (10-20); Calcium,Total 8.9 mg/dL (8.5-10.1); Chloride 98 mmol/L (98-107); Creatinine, Serum 0.82 mg/dL (0.70-1.30); EST Glomerular Filtration Rate 98 mL/min (>60); Est Glom Filt Rate - Afr Amer 119 mL/min (>60); Estimated Creatinine Clearance 77.62 ml/min; Glucose 120 mg/dL (74-106); Potassium 3.8 mmol/L (3.5-5.1); Sodium Level 137 mmol/L (136-145)
[2018-09-01 07:06] LABS: Bedside Glucose 112 mg/dL (70-110)
[2018-09-01] MEDS: Aspirin 81 MG TAB.CHEW PO (08:39)
[2018-09-01] MEDS: Bisacodyl 5 MG Tablet 10 MG PO (10:16)
[2018-09-01] MEDS: Glucerna Shake 120 ML LIQUID PO ×3 (11:32→21:49)
[2018-09-01 16:00] VITALS: BP 151/68; PULSE 64; RESP 20; TEMP 36.4; O2SAT 97
[2018-09-01 17:37] VITALS: BP 151/68; PULSE 64
[2018-09-01 21:25] LABS: Bedside Glucose 211 mg/dL (70-110)
[2018-09-01] MEDS: traZODone 50 MG Tablet PO (21:54)
[2018-09-02] MEDS: Acetaminophen 500 MG Tablet 1000 MG PO (01:27)
[2018-09-02] MEDS: Glucerna Shake 120 ML LIQUID PO ×4 (05:07→21:21)
[2018-09-02] MEDS: HYDROcodone Bitartrate/Apap 5/325 Tablet PO (05:08)
[2018-09-02 05:10] VITALS: BP 120/78; PULSE 61
[2018-09-02] MEDS: Metoprolol(XL)Succ 25 MG Tablet 12.5 MG PO ×2 (05:10→17:45)
[2018-09-02] MEDS: Enoxaparin 40 MG/0.4 ML Syringe SC (05:10)
[2018-09-02] MEDS: Levothyroxine 112 MCG Tablet PO (05:13)
[2018-09-02] MEDS: Empagliflozin 25 MG Tablet PO (05:13)
[2018-09-02] MEDS: Divalproex Sodium 250 MG Tablet 500 MG PO ×2 (05:13→17:43)
[2018-09-02] MEDS: Furosemide 40 MG Tablet PO ×2 (05:13→14:12)
[2018-09-02] MEDS: Losartan Potassium 100 MG Tablet PO ×2 (05:13→17:43)
[2018-09-02] MEDS: Senna/Docusate Sodium 1 Tablet 2 TABLET PO ×2 (05:13→17:43)
[2018-09-02] MEDS: LINAGLIPTIN 5 MG TABLET PO (05:13)
[2018-09-02] MEDS: Allopurinol 100 MG Tablet PO (05:14)
[2018-09-02] MEDS: Polyethylene Glycol 3350 17 GM PACKET PO (05:15)
[2018-09-02] MEDS: Nystatin Powder 15gm Bottle 1 APPLIC TOPICAL ×2 (05:18→21:21)
[2018-09-02] MEDS: Menthol/Lanolin/Calamine/Znox 113 GM Tube 1 APPLIC TOPICAL ×3 (05:19→21:19)
[2018-09-02] MEDS: Gabapentin 300 MG Capsule PO ×2 (05:29→17:43)
[2018-09-02 07:10] LABS: Bedside Glucose 141 mg/dL (70-110)
[2018-09-02] MEDS: Aspirin 81 MG TAB.CHEW PO (09:32)
[2018-09-02 11:55] LABS: Bedside Glucose 147 mg/dL (70-110)
[2018-09-02 15:22] VITALS: BP 122/60; PULSE 65; RESP 16; TEMP 36.7; O2SAT 96
[2018-09-02 17:45] VITALS: BP 122/60; PULSE 65
[2018-09-02] MEDS: traZODone 50 MG Tablet PO (21:20)
[2018-09-02 21:21] LABS: Bedside Glucose 182 mg/dL (70-110)
[2018-09-03] MEDS: Glucerna Shake 120 ML LIQUID PO ×4 (05:12→19:35)
[2018-09-03] MEDS: Levothyroxine 112 MCG Tablet PO (05:13)
[2018-09-03] MEDS: Losartan Potassium 100 MG Tablet PO ×2 (05:13→18:12)
[2018-09-03] MEDS: Gabapentin 300 MG Capsule PO ×2 (05:13→18:11)
[2018-09-03] MEDS: Senna/Docusate Sodium 1 Tablet 2 TABLET PO ×2 (05:13→18:11)
[2018-09-03] MEDS: LINAGLIPTIN 5 MG TABLET PO (05:13)
[2018-09-03] MEDS: Furosemide 40 MG Tablet PO ×2 (05:13→13:52)
[2018-09-03] MEDS: Allopurinol 100 MG Tablet PO (05:14)
[2018-09-03] MEDS: Enoxaparin 40 MG/0.4 ML Syringe SC (05:14)
[2018-09-03] MEDS: Empagliflozin 25 MG Tablet PO (05:14)
[2018-09-03] MEDS: Polyethylene Glycol 3350 17 GM PACKET PO (05:14)
[2018-09-03] MEDS: Divalproex Sodium 250 MG Tablet 500 MG PO ×2 (05:14→18:11)
[2018-09-03 05:15] VITALS: BP 145/81; PULSE 75
[2018-09-03] MEDS: Metoprolol(XL)Succ 25 MG Tablet 12.5 MG PO ×2 (05:15→18:12)
[2018-09-03] MEDS: Nystatin Powder 15gm Bottle 1 APPLIC TOPICAL ×2 (05:23→19:42)
[2018-09-03] MEDS: Menthol/Lanolin/Calamine/Znox 113 GM Tube 1 APPLIC TOPICAL ×3 (05:24→19:41)
[2018-09-03 06:55] LABS: Bedside Glucose 135 mg/dL (70-110)
[2018-09-03] MEDS: Aspirin 81 MG TAB.CHEW PO (08:06)
[2018-09-03 11:40] VITALS: PULSE 65; RESP 18; O2SAT 95
--- NOTE | 2018-09-03 11:46 | PCM.PN.RX ---
<JoselinangietressaNestor D - Last Filed: 09/03/18 11:46> Progress Note - Pharmacy Subjective: TCU Admission Objective: Allergies cocaine Allergy (Verified 08/16/18 02:59) Unknown atorvastatin calcium [From Lipitor] Adverse Reaction (Verified 08/16/18 02:59) Pain in joints haloperidol [From Haldol] Adverse Reaction (Verified 08/16/18 02:59) Other WENT CRAZY morphine Adverse Reaction (Verified 08/16/18 02:59) Other extremely aggitated oxycodone [From OxyIR] Adverse Reaction (Verified 08/16/18 02:59) Pain in joints extremely aggitated prednisone Adverse Reaction (Verified 08/16/18 02:59) ANXIOUS, INSOMNIA STERIODS Adverse Reaction (Uncoded 08/16/18 02:59) Other ANXIETY INSOMNIA Current Medications Generic Name Dose Route Start Last Admin Trade Name Freq PRN Reason Stop Dose Admin Acetaminophen 1,000 mg 08/31/18 10:25 09/02/18 01:27 Tylenol PO 1,000 mg Q6H PRN Administration MILD PAIN (1-3/10) Hydrocodone Bitart/Acetaminophen 1 tablet 08/31/18 14:50 09/02/18 05:08 [place] 5mg-325mg PO 1 tablet Q6H PRN PRN Administration SEVERE PAIN (6-10/10) Albuterol Sulfate 2.5 mg 08/31/18 00:10 Ventolin Aerosols INHALATION Q4H PRN PRN SHORTNESS OF BREATH Allopurinol 100 mg 08/31/18 06:00 09/03/18 05:14 Zyloprim PO 100 mg DAILY [facility] Administration Aspirin 81 mg 08/31/18 08:00 09/03/18 08:06 Aspirin, Baby PO 81 mg DAILY@0800 [facility] Administration Bisacodyl 10 mg 08/31/18 10:24 09/01/18 10:16 Dulcolax PO 10 mg DAILY PRN Administration Constipation Calamine/Phenol 1 applic 08/31/18 06:00 09/03/18 05:24 Calmoseptine Ointment TOPICAL 1 applicatio TID [facility] Administration Protocol Diclofenac Sodium 25 mg 08/31/18 06:00 Voltaren PO BID [facility] Divalproex Sodium 500 mg 08/31/18 06:00 09/03/18 05:14 Depakote PO 500 mg BID [facility] Administration Enoxaparin Sodium 40 mg 09/01/18 06:00 09/03/18 05:14 Lovenox SC 40 mg DAILY@0600 [facility] Administration Furosemide 40 mg 08/31/18 06:00 09/03/18 05:13 Lasix PO 40 mg BIDLX [facility] Administration Gabapentin 300 mg 08/31/18 06:00 09/03/18 05:13 Neurontin PO 300 mg BID [facility] Administration Insulin Glargine 75 units 08/31/18 22:00 09/02/18 21:23 Lantus (Bkc) SC 75 units QHS [facility] Administration Levothyroxine Sodium 112 mcg 08/31/18 06:00 09/03/18 05:13 Synthroid PO 112 mcg DAILY@0600 [facility] Administration Linagliptin 5 mg 08/31/18 06:00 09/03/18 05:13 Tradjenta PO 5 mg DAILY [facility] Administration Losartan Potassium 100 mg 08/31/18 06:00 09/03/18 05:13 Cozaar PO 100 mg BID [facility] Administration Metoprolol Succinate 12.5 mg 08/31/18 06:00 09/03/18 05:15 Toprol Xl (Beta Romel) PO 12.5 mg BID [facility] Administration Multi-Ingredient Cream 1 applic 08/31/18 06:00 09/03/18 05:15 Eucerin TOPICAL 1 applicatio [phone] [facility] Administration Protocol Nutritional Formula (Lactose Free) 120 ml 08/31/18 06:00 09/03/18 11:37 Glucerna Shake PO 120 ml 4X/DAY [facility] Administration Nystatin 1 applic 08/31/18 06:00 09/03/18 05:23 Mycostatin Powder TOPICAL 1 applicatio [phone] [facility] Administration Protocol Paroxetine HCl 40 mg 08/31/18 06:00 09/03/18 05:15 Paxil PO 40 mg DAILY [facility] Administration Polyethylene Glycol 17 gm 09/01/18 06:00 09/03/18 05:14 Miralax PO 17 gm DAILY [facility] Administration Potassium Chloride 20 meq 08/31/18 06:00 09/03/18 05:14 K-Dur PO 20 meq BID [facility] Administration Senna/Docusate Sodium 2 tablet 08/31/18 18:00 09/03/18 05:13 Senokot-S, Bria-Colace PO 2 tablet BID [facility] Administration Simvastatin 40 mg 08/31/18 22:00 09/02/18 21:20 Zocor PO 40 mg QHS [facility] Administration Trazodone HCl 50 mg 08/31/18 22:00 09/02/18 21:20 Desyrel PO 50 mg QHS [facility] Administration Tuberculin PPD 5 tu 09/07/18 10:00 Tubersol, Aplisol, Ppd ID 09/07/18 10:01 X1 ONE Problem List (Last Reviewed 07/17/18 @ 08:58 by Jethro Dozier MD) Low back pain (Acute) Vital Signs Temp Pulse Resp BP Pulse Ox 98.0 F 75 16 145/81 H 96 09/02/18 15:22 09/03/18 05:15 09/02/18 15:22 09/03/18 05:15 09/02/18 15:22 Oxygen Delivery Method Room Air Weight: 119.748 kg Body Mass Index (BMI) 40.1 Finger Stick Blood Glucose 166 Sodium 137 mmol/L (136-145) 09/01/18 06:05 Potassium 3.8 mmol/L (3.5-5.1) 09/01/18 06:05 Chloride 98 mmol/L (98-107) 09/01/18 06:05 Carbon Dioxide 36.0 mmol/L (21.0-32.0) H 09/01/18 06:05 Anion Gap 3 (5-15) L 09/01/18 06:05 BUN 19 mg/dL (7-18) H 09/01/18 06:05 Creatinine 0.82 mg/dL (0.70-1.30) 09/01/18 06:05 Est GFR (MDRD) Af Amer 119 mL/min (>60) 09/01/18 06:05 Est GFR (MDRD) Non-Af 98 mL/min (>60) 09/01/18 06:05 BUN/Creatinine Ratio 23.2 RATIO (10-20) H 09/01/18 06:05 Glucose 120 mg/dL (74-106) H 09/01/18 06:05 Assessment/Plan: 1) Pain APAP for mild pain, hydrocodone/APAP for severe pain, diclofenac, divalproex, and gabapentin scheduled. Continue to monitor prn medication use, daily pain scores. 2) DM2 Linagliptin, empagliflozin, insulin glargine at HS. Continue to monitor BGT, s/s hyper/hypoglycemia. 3) CHF/CAD ASA, furosemide/KCL, losartan, metoprolol XL, simvastatin. Continue to monitor BP/HR, renal function, electrolytes, lipids, swelling, for chest pain. 4) Hypothyroidism Levothyroxine daily. Continue to monitor s/s hyper/hypothyroidism. 5) Gout Allopurinol daily. Continue to monitor s/s gout. 6) Derm Calmoseptine, moisturizer, nystatin. Continue to monitor clinically. 7) DVT PPx Enoxaparin daily. Continue to monitor s/s bleeding/clot. Psychotropic Medications: 8) Insomnia/Depression Paroxetine daily, trazodone at HS. Continue to monitor for insomnia, depression, s/s serotonin syndrome. Unnecessary Medications: None Bowel Regimen: 9) Senna/s, PEG, prn bisacodyl. Continue to monitor prn medication use, for constipation/diarrhea. Date of Note:: 09/03/18 - Provider Comments Provider responsibility: Provider responsible to enter orders to implement recommendations <Gil Wheeler Chi - Last Filed: 09/03/18 18:11> Progress Note - Pharmacy Subjective: [] Objective: Allergies cocaine Allergy (Verified 08/16/18 02:59) Unknown atorvastatin calcium [From Lipitor] Adverse Reaction (Verified 08/16/18 02:59) Pain in joints haloperidol [From Haldol] Adverse Reaction (Verified 08/16/18 02:59) Other WENT CRAZY morphine Adverse Reaction (Verified 08/16/18 02:59) Other extremely aggitated oxycodone [From OxyIR] Adverse Reaction (Verified 08/16/18 02:59) Pain in joints extremely aggitated prednisone Adverse Reaction (Verified 08/16/18 02:59) ANXIOUS, INSOMNIA STERIODS Adverse Reaction (Uncoded 08/16/18 02:59) Other ANXIETY INSOMNIA Current Medications Generic Name Dose Route Start Last Admin Trade Name Freq PRN Reason Stop Dose Admin Acetaminophen 1,000 mg 08/31/18 10:25 09/02/18 01:27 Tylenol PO 1,000 mg Q6H PRN Administration MILD PAIN (1-3/10) Hydrocodone Bitart/Acetaminophen 1 tablet 08/31/18 14:50 09/02/18 05:08 [place] 5mg-325mg PO 1 tablet Q6H PRN PRN Administration SEVERE PAIN (6-10/10) Albuterol Sulfate 2.5 mg 08/31/18 00:10 Ventolin Aerosols INHALATION Q4H PRN PRN SHORTNESS OF BREATH Allopurinol 100 mg 08/31/18 06:00 09/03/18 05:14 Zyloprim PO 100 mg DAILY [facility] Administration Aspirin 81 mg 08/31/18 08:00 09/03/18 08:06 Aspirin, Baby PO 81 mg DAILY@0800 [facility] Administration Bisacodyl 10 mg 08/31/18 10:24 09/01/18 10:16 Dulcolax PO 10 mg DAILY PRN Administration Constipation Calamine/Phenol 1 applic 08/31/18 06:00 09/03/18 13:53 Calmoseptine Ointment TOPICAL 1 applicatio TID [facility] Administration Protocol Diclofenac Sodium 25 mg 08/31/18 06:00 Voltaren PO BID [facility] Divalproex Sodium 500 mg 08/31/18 06:00 09/03/18 05:14 Depakote PO 500 mg BID [facility] Administration Enoxaparin Sodium 40 mg 09/01/18 06:00 09/03/18 05:14 Lovenox SC 40 mg DAILY@0600 [facility] Administration Furosemide 40 mg 08/31/18 06:00 09/03/18 13:52 Lasix PO 40 mg BIDLX [facility] Administration Gabapentin 300 mg 08/31/18 06:00 09/03/18 05:13 Neurontin PO 300 mg BID [facility] Administration Insulin Glargine 75 units 08/31/18 22:00 09/02/18 21:23 Lantus (Bkc) SC 75 units QHS [facility] Administration Levothyroxine Sodium 112 mcg 08/31/18 06:00 09/03/18 05:13 Synthroid PO 112 mcg DAILY@0600 [facility] Administration Linagliptin 5 mg 08/31/18 06:00 09/03/18 05:13 Tradjenta PO 5 mg DAILY [facility] Administration Losartan Potassium 100 mg 08/31/18 06:00 09/03/18 05:13 Cozaar PO 100 mg BID [facility] Administration Metoprolol Succinate 12.5 mg 08/31/18 06:00 09/03/18 05:15 Toprol Xl (Beta Romel) PO 12.5 mg BID [facility] Administration Multi-Ingredient Cream 1 applic 08/31/18 06:00 09/03/18 05:15 Eucerin TOPICAL 1 applicatio [phone] [facility] Administration Protocol Nutritional Formula (Lactose Free) 120 ml 08/31/18 06:00 09/03/18 11:37 Glucerna Shake PO 120 ml 4X/DAY [facility] Administration Nystatin 1 applic 08/31/18 06:00 09/03/18 05:23 Mycostatin Powder TOPICAL 1 applicatio [phone] [facility] Administration Protocol Paroxetine HCl 40 mg 08/31/18 06:00 09/03/18 05:15 Paxil PO 40 mg DAILY [facility] Administration Polyethylene Glycol 17 gm 09/01/18 06:00 09/03/18 05:14 Miralax PO 17 gm DAILY [facility] Administration Potassium Chloride 20 meq 08/31/18 06:00 09/03/18 05:14 K-Dur PO 20 meq BID [facility] Administration Senna/Docusate Sodium 2 tablet 08/31/18 18:00 09/03/18 05:13 Senokot-S, Bria-Colace PO 2 tablet BID [facility] Administration Simvastatin 40 mg 08/31/18 22:00 09/02/18 21:20 Zocor PO 40 mg QHS [facility] Administration Trazodone HCl 50 mg 08/31/18 22:00 09/02/18 21:20 Desyrel PO 50 mg QHS [facility] Administration Tuberculin PPD 5 tu 09/07/18 10:00 Tubersol, Aplisol, Ppd ID 09/07/18 10:01 X1 ONE Problem List (Last Reviewed 07/17/18 @ 08:58 by Jethro Dozier MD) Low back pain (Acute) Vital Signs Temp Pulse Resp BP Pulse Ox 98.0 F 74 20 H 115/73 94 09/03/18 16:00 09/03/18 16:00 09/03/18 16:00 09/03/18 16:00 09/03/18 16:00 Oxygen Delivery Method Room Air Weight: 119.748 kg Body Mass Index (BMI) 40.1 Finger Stick Blood Glucose 166 Sodium 137 mmol/L (136-145) 09/01/18 06:05 Potassium 3.8 mmol/L (3.5-5.1) 09/01/18 06:05 Chloride 98 mmol/L (98-107) 09/01/18 06:05 Carbon Dioxide 36.0 mmol/L (21.0-32.0) H 09/01/18 06:05 Anion Gap 3 (5-15) L 09/01/18 06:05 BUN 19 mg/dL (7-18) H 09/01/18 06:05 Creatinine 0.82 mg/dL (0.70-1.30) 09/01/18 06:05 Est GFR (MDRD) Af Amer 119 mL/min (>60) 09/01/18 06:05 Est GFR (MDRD) Non-Af 98 mL/min (>60) 09/01/18 06:05 BUN/Creatinine Ratio 23.2 RATIO (10-20) H 09/01/18 06:05 Glucose 120 mg/dL (74-106) H 09/01/18 06:05 Assessment/Plan: Psychotropic Medications: Unnecessary Medications: Bowel Regimen: - Provider Comments Provider responsibility: Provider responsible to enter orders to implement recommendations Provider Comments to Recommendations by Pharmacy: Agree
--- NOTE | 2018-09-03 11:57 | PHA.CONS_ITS ---
<JoselinangietressaNestor D - Last Filed: 09/03/18 11:46> Progress Note - Pharmacy Subjective: TCU Admission Objective: Allergies cocaine Allergy (Verified 08/16/18 02:59) Unknown atorvastatin calcium [From Lipitor] Adverse Reaction (Verified 08/16/18 02:59) Pain in joints haloperidol [From Haldol] Adverse Reaction (Verified 08/16/18 02:59) Other WENT CRAZY morphine Adverse Reaction (Verified 08/16/18 02:59) Other extremely aggitated oxycodone [From OxyIR] Adverse Reaction (Verified 08/16/18 02:59) Pain in joints extremely aggitated prednisone Adverse Reaction (Verified 08/16/18 02:59) ANXIOUS, INSOMNIA STERIODS Adverse Reaction (Uncoded 08/16/18 02:59) Other ANXIETY INSOMNIA Current Medications Generic Name Dose Route Start Last Admin Trade Name Freq PRN Reason Stop Dose Admin Acetaminophen 1,000 mg 08/31/18 10:25 09/02/18 01:27 Tylenol PO 1,000 mg Q6H PRN Administration MILD PAIN (1-3/10) Hydrocodone Bitart/Acetaminophen 1 tablet 08/31/18 14:50 09/02/18 05:08 [place] 5mg-325mg PO 1 tablet Q6H PRN PRN Administration SEVERE PAIN (6-10/10) Albuterol Sulfate 2.5 mg 08/31/18 00:10 Ventolin Aerosols INHALATION Q4H PRN PRN SHORTNESS OF BREATH Allopurinol 100 mg 08/31/18 06:00 09/03/18 05:14 Zyloprim PO 100 mg DAILY [facility] Administration Aspirin 81 mg 08/31/18 08:00 09/03/18 08:06 Aspirin, Baby PO 81 mg DAILY@0800 [facility] Administration Bisacodyl 10 mg 08/31/18 10:24 09/01/18 10:16 Dulcolax PO 10 mg DAILY PRN Administration Constipation Calamine/Phenol 1 applic 08/31/18 06:00 09/03/18 05:24 Calmoseptine Ointment TOPICAL 1 applicatio TID [facility] Administration Protocol Diclofenac Sodium 25 mg 08/31/18 06:00 Voltaren PO BID [facility] Divalproex Sodium 500 mg 08/31/18 06:00 09/03/18 05:14 Depakote PO 500 mg BID CHERYL Administration Enoxaparin Sodium 40 mg 09/01/18 06:00 09/03/18 05:14 Lovenox SC 40 mg DAILY@0600 CHERYL Administration Furosemide 40 mg 08/31/18 06:00 09/03/18 05:13 Lasix PO 40 mg BIDLX CHERYL Administration Gabapentin 300 mg 08/31/18 06:00 09/03/18 05:13 Neurontin PO 300 mg BID CHERYL Administration Insulin Glargine 75 units 08/31/18 22:00 09/02/18 21:23 Lantus (Bkc) SC 75 units QHS CHERYL Administration Levothyroxine Sodium 112 mcg 08/31/18 06:00 09/03/18 05:13 Synthroid PO 112 mcg DAILY@0600 CHERYL Administration Linagliptin 5 mg 08/31/18 06:00 09/03/18 05:13 Tradjenta PO 5 mg DAILY CHERYL Administration Losartan Potassium 100 mg 08/31/18 06:00 09/03/18 05:13 Cozaar PO 100 mg BID CHERYL Administration Metoprolol Succinate 12.5 mg 08/31/18 06:00 09/03/18 05:15 Toprol Xl (Beta Romel) PO 12.5 mg BID CHERYL Administration Multi-Ingredient Cream 1 applic 08/31/18 06:00 09/03/18 05:15 Eucerin TOPICAL 1 applicatio 599,2199 [facility] Administration Protocol Nutritional Formula (Lactose Free) 120 ml 08/31/18 06:00 09/03/18 11:37 Glucerna Shake PO 120 ml 4X/DAY CHERYL Administration Nystatin 1 applic 08/31/18 06:00 09/03/18 05:23 Mycostatin Powder TOPICAL 1 applicatio [phone] [facility] Administration Protocol Paroxetine HCl 40 mg 08/31/18 06:00 09/03/18 05:15 Paxil PO 40 mg DAILY CHERYL Administration Polyethylene Glycol 17 gm 09/01/18 06:00 09/03/18 05:14 Miralax PO 17 gm DAILY CHERYL Administration Potassium Chloride 20 meq 08/31/18 06:00 09/03/18 05:14 K-Dur PO 20 meq BID CHERYL Administration Senna/Docusate Sodium 2 tablet 08/31/18 18:00 09/03/18 05:13 Senokot-S, Bria-Colace PO 2 tablet BID CHERYL Administration Simvastatin 40 mg 08/31/18 22:00 09/02/18 21:20 Zocor PO 40 mg QHS CHERYL Administration Trazodone HCl 50 mg 08/31/18 22:00 09/02/18 21:20 Desyrel PO 50 mg QHS CHERYL Administration Tuberculin PPD 5 tu 09/07/18 10:00 Tubersol, Aplisol, Ppd ID 09/07/18 10:01 X1 ONE Problem List (Last Reviewed 07/17/18 @ 08:58 by Jethro Dozier MD) Low back pain (Acute) Vital Signs Temp Pulse Resp BP Pulse Ox 98.0 F 75 16 145/81 H 96 09/02/18 15:22 09/03/18 05:15 09/02/18 15:22 09/03/18 05:15 09/02/18 15:22 Oxygen Delivery Method Room Air Weight: 119.748 kg Body Mass Index (BMI) 40.1 Finger Stick Blood Glucose 166 Sodium 137 mmol/L (136-145) 09/01/18 06:05 Potassium 3.8 mmol/L (3.5-5.1) 09/01/18 06:05 Chloride 98 mmol/L (98-107) 09/01/18 06:05 Carbon Dioxide 36.0 mmol/L (21.0-32.0) H 09/01/18 06:05 Anion Gap 3 (5-15) L 09/01/18 06:05 BUN 19 mg/dL (7-18) H 09/01/18 06:05 Creatinine 0.82 mg/dL (0.70-1.30) 09/01/18 06:05 Est GFR (MDRD) Af Amer 119 mL/min (>60) 09/01/18 06:05 Est GFR (MDRD) Non-Af 98 mL/min (>60) 09/01/18 06:05 BUN/Creatinine Ratio 23.2 RATIO (10-20) H 09/01/18 06:05 Glucose 120 mg/dL (74-106) H 09/01/18 06:05 Assessment/Plan: 1) Pain APAP for mild pain, hydrocodone/APAP for severe pain, diclofenac, divalproex, and gabapentin scheduled. Continue to monitor prn medication use, daily pain scores. 2) DM2 Linagliptin, empagliflozin, insulin glargine at HS. Continue to monitor BGT, s/s hyper/hypoglycemia. 3) CHF/CAD ASA, furosemide/KCL, losartan, metoprolol XL, simvastatin. Continue to monitor BP/HR, renal function, electrolytes, lipids, swelling, for chest pain. 4) Hypothyroidism Levothyroxine daily. Continue to monitor s/s hyper/hypothyroidism. 5) Gout Allopurinol daily. Continue to monitor s/s gout. 6) Derm Calmoseptine, moisturizer, nystatin. Continue to monitor clinically. 7) DVT PPx Enoxaparin daily. Continue to monitor s/s bleeding/clot. Psychotropic Medications: 8) Insomnia/Depression Paroxetine daily, trazodone at HS. Continue to monitor for insomnia, depression, s/s serotonin syndrome. Unnecessary Medications: None Bowel Regimen: 9) Senna/s, PEG, prn bisacodyl. Continue to monitor prn medication use, for constipation/diarrhea. Date of Note:: 09/03/18 - Provider Comments Provider responsibility: Provider responsible to enter orders to implement recommendations <Gil Wheeler Chi - Last Filed: 09/03/18 18:11> Progress Note - Pharmacy Subjective: [] Objective: Allergies cocaine Allergy (Verified 08/16/18 02:59) Unknown atorvastatin calcium [From Lipitor] Adverse Reaction (Verified 08/16/18 02:59) Pain in joints haloperidol [From Haldol] Adverse Reaction (Verified 08/16/18 02:59) Other WENT CRAZY morphine Adverse Reaction (Verified 08/16/18 02:59) Other extremely aggitated oxycodone [From OxyIR] Adverse Reaction (Verified 08/16/18 02:59) Pain in joints extremely aggitated prednisone Adverse Reaction (Verified 08/16/18 02:59) ANXIOUS, INSOMNIA STERIODS Adverse Reaction (Uncoded 08/16/18 02:59) Other ANXIETY INSOMNIA Current Medications Generic Name Dose Route Start Last Admin Trade Name Freq PRN Reason Stop Dose Admin Acetaminophen 1,000 mg 08/31/18 10:25 09/02/18 01:27 Tylenol PO 1,000 mg Q6H PRN Administration MILD PAIN (1-3/10) Hydrocodone Bitart/Acetaminophen 1 tablet 08/31/18 14:50 09/02/18 05:08 [place] 5mg-325mg PO 1 tablet Q6H PRN PRN Administration SEVERE PAIN (6-10/10) Albuterol Sulfate 2.5 mg 08/31/18 00:10 Ventolin Aerosols INHALATION Q4H PRN PRN SHORTNESS OF BREATH Allopurinol 100 mg 08/31/18 06:00 09/03/18 05:14 Zyloprim PO 100 mg DAILY CHERYL Administration Aspirin 81 mg 08/31/18 08:00 09/03/18 08:06 Aspirin, Baby PO 81 mg DAILY@0800 CHERYL Administration Bisacodyl 10 mg 08/31/18 10:24 09/01/18 10:16 Dulcolax PO 10 mg DAILY PRN Administration Constipation Calamine/Phenol 1 applic 08/31/18 06:00 09/03/18 13:53 Calmoseptine Ointment TOPICAL 1 applicatio TID [facility] Administration Protocol Diclofenac Sodium 25 mg 08/31/18 06:00 Voltaren PO BID [facility] Divalproex Sodium 500 mg 08/31/18 06:00 09/03/18 05:14 Depakote PO 500 mg BID CHERYL Administration Enoxaparin Sodium 40 mg 09/01/18 06:00 09/03/18 05:14 Lovenox SC 40 mg DAILY@0600 CHERYL Administration Furosemide 40 mg 08/31/18 06:00 09/03/18 13:52 Lasix PO 40 mg BIDLX CHERYL Administration Gabapentin 300 mg 08/31/18 06:00 09/03/18 05:13 Neurontin PO 300 mg BID CHERYL Administration Insulin Glargine 75 units 08/31/18 22:00 09/02/18 21:23 Lantus (Bkc) SC 75 units QHS CHERYL Administration Levothyroxine Sodium 112 mcg 08/31/18 06:00 09/03/18 05:13 Synthroid PO 112 mcg DAILY@0600 CHERYL Administration Linagliptin 5 mg 08/31/18 06:00 09/03/18 05:13 Tradjenta PO 5 mg DAILY CHERYL Administration Losartan Potassium 100 mg 08/31/18 06:00 09/03/18 05:13 Cozaar PO 100 mg BID CHERYL Administration Metoprolol Succinate 12.5 mg 08/31/18 06:00 09/03/18 05:15 Toprol Xl (Beta Romel) PO 12.5 mg BID CHERYL Administration Multi-Ingredient Cream 1 applic 08/31/18 06:00 09/03/18 05:15 Eucerin TOPICAL 1 applicatio [phone] [facility] Administration Protocol Nutritional Formula (Lactose Free) 120 ml 08/31/18 06:00 09/03/18 11:37 Glucerna Shake PO 120 ml 4X/DAY CHERYL Administration Nystatin 1 applic 08/31/18 06:00 09/03/18 05:23 Mycostatin Powder TOPICAL 1 applicatio [phone] [facility] Administration Protocol Paroxetine HCl 40 mg 08/31/18 06:00 09/03/18 05:15 Paxil PO 40 mg DAILY CHERYL Administration Polyethylene Glycol 17 gm 09/01/18 06:00 09/03/18 05:14 Miralax PO 17 gm DAILY CHERYL Administration Potassium Chloride 20 meq 08/31/18 06:00 09/03/18 05:14 K-Dur PO 20 meq BID CHERYL Administration Senna/Docusate Sodium 2 tablet 08/31/18 18:00 09/03/18 05:13 Senokot-S, Bria-Colace PO 2 tablet BID CHERYL Administration Simvastatin 40 mg 08/31/18 22:00 09/02/18 21:20 Zocor PO 40 mg QHS CHERYL Administration Trazodone HCl 50 mg 08/31/18 22:00 09/02/18 21:20 Desyrel PO 50 mg QHS CHERYL Administration Tuberculin PPD 5 tu 09/07/18 10:00 Tubersol, Aplisol, Ppd ID 09/07/18 10:01 X1 ONE Problem List (Last Reviewed 07/17/18 @ 08:58 by Jethro Dozier MD) Low back pain (Acute) Vital Signs Temp Pulse Resp BP Pulse Ox 98.0 F 74 20 H 115/73 94 09/03/18 16:00 09/03/18 16:00 09/03/18 16:00 09/03/18 16:00 09/03/18 16:00 Oxygen Delivery Method Room Air Weight: 119.748 kg Body Mass Index (BMI) 40.1 Finger Stick Blood Glucose 166 Sodium 137 mmol/L (136-145) 09/01/18 06:05 Potassium 3.8 mmol/L (3.5-5.1) 09/01/18 06:05 Chloride 98 mmol/L (98-107) 09/01/18 06:05 Carbon Dioxide 36.0 mmol/L (21.0-32.0) H 09/01/18 06:05 Anion Gap 3 (5-15) L 09/01/18 06:05 BUN 19 mg/dL (7-18) H 09/01/18 06:05 Creatinine 0.82 mg/dL (0.70-1.30) 09/01/18 06:05 Est GFR (MDRD) Af Amer 119 mL/min (>60) 09/01/18 06:05 Est GFR (MDRD) Non-Af 98 mL/min (>60) 09/01/18 06:05 BUN/Creatinine Ratio 23.2 RATIO (10-20) H 09/01/18 06:05 Glucose 120 mg/dL (74-106) H 09/01/18 06:05 Assessment/Plan: Psychotropic Medications: Unnecessary Medications: Bowel Regimen: - Provider Comments Provider responsibility: Provider responsible to enter orders to implement recommendations Provider Comments to Recommendations by Pharmacy: Agree
--- NOTE | 2018-09-03 14:49 | NURSING ---
THERAPY CAME TO THIS NURSE AND STATED PT GOT A SKIN TEAR ON HIS RIGHT HAND WHILE SITTING DOWN IN WHEEL CHAIR AFTER GETTING WEIGHTED. REPORTED TO JOSELITO CHAPARRO. 2.5X1, STRI STRIPS AND 2X2 WITH KERLAX.
[2018-09-03 16:00] VITALS: BP 115/73; PULSE 74; RESP 20; TEMP 36.7; O2SAT 94
[2018-09-03 18:12] VITALS: BP 115/73; PULSE 74
[2018-09-03] MEDS: HYDROcodone Bitartrate/Apap 5/325 Tablet PO (19:39)
[2018-09-03] MEDS: traZODone 50 MG Tablet PO (19:39)
[2018-09-03 21:21] LABS: Bedside Glucose 166 mg/dL (70-110)
[2018-09-04] MEDS: Nystatin Powder 15gm Bottle 1 APPLIC TOPICAL ×2 (04:53→21:21)
[2018-09-04] MEDS: Glucerna Shake 120 ML LIQUID PO (04:53)
[2018-09-04 04:54] VITALS: BP 140/69; PULSE 63
[2018-09-04] MEDS: Metoprolol(XL)Succ 25 MG Tablet 12.5 MG PO ×2 (04:54→17:13)
[2018-09-04] MEDS: Enoxaparin 40 MG/0.4 ML Syringe SC (04:54)
[2018-09-04] MEDS: LINAGLIPTIN 5 MG TABLET PO (04:54)
[2018-09-04] MEDS: Senna/Docusate Sodium 1 Tablet 2 TABLET PO ×2 (04:54→17:14)
[2018-09-04] MEDS: Polyethylene Glycol 3350 17 GM PACKET PO (04:54)
[2018-09-04] MEDS: Losartan Potassium 100 MG Tablet PO ×2 (04:55→17:14)
[2018-09-04] MEDS: Levothyroxine 112 MCG Tablet PO (04:55)
[2018-09-04] MEDS: Gabapentin 300 MG Capsule PO ×2 (04:55→17:14)
[2018-09-04] MEDS: Allopurinol 100 MG Tablet PO (04:55)
[2018-09-04] MEDS: Furosemide 40 MG Tablet PO ×2 (04:55→14:22)
[2018-09-04] MEDS: Empagliflozin 25 MG Tablet PO (04:55)
[2018-09-04] MEDS: Divalproex Sodium 250 MG Tablet 500 MG PO ×2 (04:56→17:14)
[2018-09-04] MEDS: Menthol/Lanolin/Calamine/Znox 113 GM Tube 1 APPLIC TOPICAL ×3 (04:59→21:21)
[2018-09-04 06:41] LABS: Bedside Glucose 137 mg/dL (70-110)
[2018-09-04] MEDS: Aspirin 81 MG TAB.CHEW PO (08:37)
[2018-09-04 09:52] VITALS: PULSE 66; RESP 18; O2SAT 92
--- NOTE | 2018-09-04 13:15 | CCN.REFER ---
Plan of care meeting held. Resident present as well as resident spouse. No discharge date set at this time. Resident to continue with further care and treatment on the Transitional Care Unit. Resident with insurance update due on 09/05/18, resident aware that continued stay approval is not guaranteed at this time. Resident plans to discharge to home with spouse at time of discharge. Support given. Will continue to follow. Tamia MA, HAT SIZER
[2018-09-04 16:00] VITALS: BP 153/70; PULSE 65; RESP 18; TEMP 36.3; O2SAT 96
[2018-09-04 17:13] VITALS: BP 153/70; PULSE 65
[2018-09-04] MEDS: HYDROcodone Bitartrate/Apap 5/325 Tablet PO (18:50)
[2018-09-04 20:56] LABS: Bedside Glucose 156 mg/dL (70-110)
[2018-09-04] MEDS: traZODone 50 MG Tablet PO (21:17)
[2018-09-05] MEDS: HYDROcodone Bitartrate/Apap 5/325 Tablet PO ×2 (02:40→09:50)
[2018-09-05 05:02] VITALS: BP 140/73; PULSE 64
[2018-09-05] MEDS: Allopurinol 100 MG Tablet PO (05:02)
[2018-09-05] MEDS: Empagliflozin 25 MG Tablet PO (05:02)
[2018-09-05] MEDS: LINAGLIPTIN 5 MG TABLET PO (05:02)
[2018-09-05] MEDS: Metoprolol(XL)Succ 25 MG Tablet 12.5 MG PO ×2 (05:02→16:36)
[2018-09-05] MEDS: Senna/Docusate Sodium 1 Tablet 2 TABLET PO (05:02)
[2018-09-05] MEDS: Enoxaparin 40 MG/0.4 ML Syringe SC (05:03)
[2018-09-05] MEDS: Furosemide 40 MG Tablet PO ×2 (05:03→12:36)
[2018-09-05] MEDS: Levothyroxine 112 MCG Tablet PO (05:03)
[2018-09-05] MEDS: Gabapentin 300 MG Capsule PO ×2 (05:03→16:36)
[2018-09-05] MEDS: Polyethylene Glycol 3350 17 GM PACKET PO (05:03)
[2018-09-05] MEDS: Divalproex Sodium 250 MG Tablet 500 MG PO ×2 (05:04→16:35)
[2018-09-05] MEDS: Losartan Potassium 100 MG Tablet PO ×2 (05:04→16:35)
[2018-09-05] MEDS: Menthol/Lanolin/Calamine/Znox 113 GM Tube 1 APPLIC TOPICAL ×3 (05:09→22:09)
[2018-09-05] MEDS: Nystatin Powder 15gm Bottle 1 APPLIC TOPICAL ×2 (05:10→22:07)
[2018-09-05 06:36] LABS: Bedside Glucose 172 mg/dL (70-110)
[2018-09-05] MEDS: Aspirin 81 MG TAB.CHEW PO (09:50)
--- NOTE | 2018-09-05 12:04 | CASEMGMT ---
Insurance Clinical information faxed. Pending continued stay approval at this time. Auth#[id number] Tamia MA, ZANJERO
[2018-09-05] MEDS: Acetaminophen 500 MG Tablet 1000 MG PO (15:35)
[2018-09-05 16:00] VITALS: BP 144/70; PULSE 60; RESP 20; TEMP 36.6; O2SAT 96
[2018-09-05 16:36] VITALS: BP 144/70; PULSE 60
[2018-09-05 21:26] LABS: Bedside Glucose 185 mg/dL (70-110)
[2018-09-05] MEDS: traZODone 50 MG Tablet PO (22:06)
[2018-09-06] MEDS: Gabapentin 300 MG Capsule PO ×2 (05:16→18:01)
[2018-09-06] MEDS: Allopurinol 100 MG Tablet PO (05:16)
[2018-09-06] MEDS: LINAGLIPTIN 5 MG TABLET PO (05:16)
[2018-09-06] MEDS: Furosemide 40 MG Tablet PO ×2 (05:16→13:07)
[2018-09-06] MEDS: Enoxaparin 40 MG/0.4 ML Syringe SC (05:16)
[2018-09-06 05:17] VITALS: BP 142/71; PULSE 70
[2018-09-06] MEDS: Empagliflozin 25 MG Tablet PO (05:17)
[2018-09-06] MEDS: Losartan Potassium 100 MG Tablet PO ×2 (05:17→18:02)
[2018-09-06] MEDS: Divalproex Sodium 250 MG Tablet 500 MG PO ×2 (05:17→18:02)
[2018-09-06] MEDS: Metoprolol(XL)Succ 25 MG Tablet 12.5 MG PO ×2 (05:17→18:01)
[2018-09-06] MEDS: Levothyroxine 112 MCG Tablet PO (05:20)
[2018-09-06] MEDS: Nystatin Powder 15gm Bottle 1 APPLIC TOPICAL ×2 (05:21→20:47)
[2018-09-06] MEDS: Menthol/Lanolin/Calamine/Znox 113 GM Tube 1 APPLIC TOPICAL ×3 (05:21→20:46)
[2018-09-06 07:01] LABS: Bedside Glucose 146 mg/dL (70-110)
[2018-09-06] MEDS: Aspirin 81 MG TAB.CHEW PO (07:49)
[2018-09-06] MEDS: HYDROcodone Bitartrate/Apap 5/325 Tablet PO ×2 (07:53→20:44)
[2018-09-06 10:30] VITALS: PULSE 96; RESP 18; O2SAT 99
--- NOTE | 2018-09-06 10:35 | CASEMGMT ---
Insurance Continued stay approved with next update due on 09/12/18. Auth#[id number] Tamia MA, SHANK TAPPER
--- NOTE | 2018-09-06 14:40 | CASEMGMT ---
Brief interview for mental status (BIMS) and resident mood interview (PHQ-9) completed on this day. BIMS score 10/03. PHQ-9 score 04/14
[2018-09-06 15:46] VITALS: BP 131/55; PULSE 62; RESP 14; TEMP 36.9; O2SAT 96
[2018-09-06 18:01] VITALS: BP 131/55; PULSE 62
[2018-09-06] MEDS: traZODone 50 MG Tablet PO (20:45)
[2018-09-06 21:01] LABS: Bedside Glucose 199 mg/dL (70-110)
[2018-09-07] MEDS: Menthol/Lanolin/Calamine/Znox 113 GM Tube 1 APPLIC TOPICAL ×3 (05:21→20:40)
[2018-09-07 05:22] VITALS: BP 138/64; PULSE 64
[2018-09-07] MEDS: Metoprolol(XL)Succ 25 MG Tablet 12.5 MG PO ×2 (05:22→17:55)
[2018-09-07] MEDS: Enoxaparin 40 MG/0.4 ML Syringe SC (05:22)
[2018-09-07] MEDS: LINAGLIPTIN 5 MG TABLET PO (05:22)
[2018-09-07] MEDS: Allopurinol 100 MG Tablet PO (05:22)
[2018-09-07] MEDS: Furosemide 40 MG Tablet PO ×2 (05:23→14:35)
[2018-09-07] MEDS: Levothyroxine 112 MCG Tablet PO (05:23)
[2018-09-07] MEDS: Divalproex Sodium 250 MG Tablet 500 MG PO ×2 (05:23→17:55)
[2018-09-07] MEDS: Losartan Potassium 100 MG Tablet PO ×2 (05:23→17:55)
[2018-09-07] MEDS: Gabapentin 300 MG Capsule PO ×2 (05:23→17:55)
[2018-09-07] MEDS: Empagliflozin 25 MG Tablet PO (05:24)
[2018-09-07] MEDS: Nystatin Powder 15gm Bottle 1 APPLIC TOPICAL ×2 (05:27→20:41)
[2018-09-07 06:31] LABS: Bedside Glucose 131 mg/dL (70-110)
[2018-09-07 07:15] LABS: Absolute Neutrophil Count 2.6 X10^3/uL (2.0-7.7); Basophil# 0.03 X10^3/uL; Basophil% 0.5 % (0-1); Eosinophil# 0.33 X10^3/uL; Eosinophils% 5.4 % (0-5); Hematocrit 38.7 % (40-54); Hemoglobin 12.5 g/dl (13.0-16.5); Lymphocyte % 37.6 % (19-41); Mean Corp Hgb Conc 32.3 g/gl (32-36); Mean Corpuscular Hgb 30.5 pg (27.0-32.0); Mean Corpuscular Volume 94.4 fL (80-94); Monocyte# 0.85 X10^3/uL; Monocyte% 13.9 % (0-10); Neutrophil # 2.58 X10^3/uL (2.7-7.7); Neutrophil % 42.3 % (47-70); Platelet Count 413 K/mm3 (150-450); RBC Distribution Width CV 13.8 % (11.6-14.6); RBC Distribution Width SD 45.9 fl (35.1-43.9); White Blood Count 6.1 K/mm3 (4.4-11.0)
[2018-09-07 07:17] LABS: POSITIVE COUNT NO; POSITIVE DIFFERENTIAL NO; POSITIVE MORPHOLOGY NO
[2018-09-07 08:02] LABS: Anion Gap 6 (5-15); BUN 16 mg/dL (7-18); BUN/Creat Ratio 24.9 RATIO (10-20); Calcium,Total 8.8 mg/dL (8.5-10.1); Chloride 105 mmol/L (98-107); Creatinine, Serum 0.64 mg/dL (0.70-1.30); EST Glomerular Filtration Rate 130 mL/min (>60); Est Glom Filt Rate - Afr Amer 157 mL/min (>60); Estimated Creatinine Clearance 63.65 ml/min; Glucose 134 mg/dL (74-106); Potassium 3.8 mmol/L (3.5-5.1); Sodium Level 142 mmol/L (136-145)
[2018-09-07] MEDS: Aspirin 81 MG TAB.CHEW PO (09:14)
[2018-09-07] MEDS: Tuberculin,Purif.prot.deriv. 50 TU/ML Vial 5 ML ID (10:54)
[2018-09-07 15:19] VITALS: BP 153/64; PULSE 53; RESP 16; TEMP 36.6; O2SAT 95
[2018-09-07 17:06] LABS: Bedside Glucose 146 mg/dL (70-110)
[2018-09-07 17:55] VITALS: PULSE 60
[2018-09-07 20:40] VITALS: PULSE 62; O2SAT 96
[2018-09-07] MEDS: traZODone 50 MG Tablet PO (20:41)
[2018-09-07 21:41] LABS: Bedside Glucose 153 mg/dL (70-110)
--- NOTE | 2018-09-07 21:43 | NURSING ---
Pt's blood sugar [address] Wheeler notified. Orders to give half dose of evening Lantus.
[2018-09-08] MEDS: Menthol/Lanolin/Calamine/Znox 113 GM Tube 1 APPLIC TOPICAL ×3 (05:18→21:38)
[2018-09-08] MEDS: Furosemide 40 MG Tablet PO ×2 (05:21→14:27)
[2018-09-08] MEDS: Losartan Potassium 100 MG Tablet PO ×2 (05:21→17:20)
[2018-09-08] MEDS: Divalproex Sodium 250 MG Tablet 500 MG PO ×2 (05:21→17:19)
[2018-09-08] MEDS: Enoxaparin 40 MG/0.4 ML Syringe SC (05:21)
[2018-09-08] MEDS: Empagliflozin 25 MG Tablet PO (05:21)
[2018-09-08] MEDS: Nystatin Powder 15gm Bottle 1 APPLIC TOPICAL ×2 (05:21→21:39)
[2018-09-08 05:22] VITALS: BP 125/83; PULSE 60
[2018-09-08] MEDS: Metoprolol(XL)Succ 25 MG Tablet 12.5 MG PO ×2 (05:22→17:21)
[2018-09-08] MEDS: Allopurinol 100 MG Tablet PO (05:22)
[2018-09-08] MEDS: LINAGLIPTIN 5 MG TABLET PO (05:22)
[2018-09-08] MEDS: Gabapentin 300 MG Capsule PO ×2 (05:22→17:18)
[2018-09-08] MEDS: Levothyroxine 112 MCG Tablet PO (05:22)
[2018-09-08 06:31] LABS: Bedside Glucose 134 mg/dL (70-110)
[2018-09-08] MEDS: Aspirin 81 MG TAB.CHEW PO (08:27)
[2018-09-08 09:21] VITALS: PULSE 57; O2SAT 97
[2018-09-08 15:37] VITALS: BP 161/69; PULSE 58; RESP 16; TEMP 36.5; O2SAT 98
[2018-09-08 17:21] VITALS: BP 161/69; PULSE 58
[2018-09-08 21:11] LABS: Bedside Glucose 188 mg/dL (70-110)
[2018-09-08] MEDS: traZODone 50 MG Tablet PO (21:38)
[2018-09-09] MEDS: Menthol/Lanolin/Calamine/Znox 113 GM Tube 1 APPLIC TOPICAL ×3 (06:19→21:49)
[2018-09-09] MEDS: Losartan Potassium 100 MG Tablet PO ×2 (06:20→17:29)
[2018-09-09] MEDS: Empagliflozin 25 MG Tablet PO (06:20)
[2018-09-09] MEDS: Furosemide 40 MG Tablet PO ×2 (06:20→13:00)
[2018-09-09] MEDS: Enoxaparin 40 MG/0.4 ML Syringe SC (06:20)
[2018-09-09] MEDS: Divalproex Sodium 250 MG Tablet 500 MG PO ×2 (06:20→17:29)
[2018-09-09 06:21] VITALS: BP 129/68; PULSE 59
[2018-09-09] MEDS: Nystatin Powder 15gm Bottle 1 APPLIC TOPICAL ×2 (06:21→21:50)
[2018-09-09] MEDS: Metoprolol(XL)Succ 25 MG Tablet 12.5 MG PO ×2 (06:21→17:30)
[2018-09-09] MEDS: Levothyroxine 112 MCG Tablet PO (06:21)
[2018-09-09] MEDS: Gabapentin 300 MG Capsule PO ×2 (06:21→17:30)
[2018-09-09] MEDS: LINAGLIPTIN 5 MG TABLET PO (06:22)
[2018-09-09] MEDS: Allopurinol 100 MG Tablet PO (06:23)
[2018-09-09 06:56] LABS: Bedside Glucose 124 mg/dL (70-110)
[2018-09-09] MEDS: Aspirin 81 MG TAB.CHEW PO (08:03)
[2018-09-09 11:00] VITALS: PULSE 54; RESP 18; O2SAT 97
--- NOTE | 2018-09-09 14:14 | CASEMGMT ---
Social Work Spoke with resident and resident spouse in room. Resident requesting for discharge date to be set for 09/11/18. Spoke with staff/therapy, 09/11/18 is an agreeable date. Physical and Occupational therapy as well as nursing are recommending for resident to have continued services within the home at time of discharge. Resident is agreeable to recommendation and requesting for home health services to be set up through [facility] ([facility]). Resident also requesting for an aide to assist with showers to be set up. Resident reporting to have all needed durable medical equipment needs already set up within the home. Resident spouse plans to provide transportation home for resident at time of discharge. Support given. [facility]. This social science instructor making referral for physical and occupational therapy as well as care home and a home health aide. Order to be completed. Proposed discharge date: 09/11/18 PLAN: Discharge to home with spouse and home health services. Tamia MA, TRAIN DIRECTOR
[2018-09-09 15:57] VITALS: BP 141/76; PULSE 62; RESP 18; TEMP 35.9; O2SAT 97
[2018-09-09 17:30] VITALS: PULSE 62
--- NOTE | 2018-09-09 20:51 | DCINST_ITS ---
- Discharge Diagnoses Current Active Problems: Current Active and Chronic Problems (Last Reviewed 07/17/18 @ 08:58 by Jethro Dozier MD) Low back pain (Acute) You will use the following diet at home:: No restrictions, Regular Your food should be the consistency of: Regular Your liquids should be the consistency of: Regular/Thin Discharge Activity: Return to Normal Activity, May Shower, Use Walker Weight Bearing Status: Weight bearing as tolerated Call your doctor if you observe: Fever of 101 or Higher, Inability to urinate, Inability to have a bowel movement, Shortness of breath, Chest pain, Uncontrolled pain Allergies/Adverse Reactions: Allergies cocaine Allergy (Verified 08/16/18 02:59) Unknown atorvastatin calcium [From Lipitor] Adverse Reaction (Verified 08/16/18 02:59) Pain in joints haloperidol [From Haldol] Adverse Reaction (Verified 08/16/18 02:59) Other WENT CRAZY morphine Adverse Reaction (Verified 08/16/18 02:59) Other extremely aggitated oxycodone [From OxyIR] Adverse Reaction (Verified 08/16/18 02:59) Pain in joints extremely aggitated prednisone Adverse Reaction (Verified 08/16/18 02:59) ANXIOUS, INSOMNIA STERIODS Adverse Reaction (Uncoded 08/16/18 02:59) Other ANXIETY INSOMNIA Medications to take at Discharge Paroxetine HCl [Paxil] 40 mg PO DAILY 09/27/16 Potassium Chloride [K-Dur] 20 meq PO BID 09/27/16 Simvastatin [Zocor] 40 mg PO QHS 09/27/16 Sitagliptin Phosphate [Januvia] 100 mg PO DAILY 09/27/16 Torsemide [Demadex] 20 mg PO BID 09/27/16 traZODone [Desyrel] 50 mg PO QHS 09/27/16 Divalproex Sodium [Depakote] 500 mg PO BID 08/14/17 Allopurinol 100 mg PO DAILY 05/17/18 gabapentin 300 mg capsule 300 mg PO BID cap 07/17/18 levothyroxine 100 mcg capsule 112 mcg PO DAILY 07/17/18 Aspirin [Aspirin, Baby] 81 mg PO DAILY@0800 08/16/18 Diclofenac Sodium 25 mg PO BID 08/16/18 Acetaminophen [Tylenol] 1,000 mg PO Q6H PRN tablet 09/09/18 Empagliflozin [Jardiance] 25 mg PO DAILY #30 tablet 09/09/18 Insulin Glargine [Lantus SoloStar Pen] 75 units SC QHS pen 09/09/18 Losartan Potassium 100 mg PO BID #60 tablet 09/09/18 Metoprolol(XL)Succ [Toprol Xl (Beta Romel)] 12.5 mg PO BID #30 tablet 09/09/18 Nystatin Powder [Mycostatin Powder] 1 applic TOPICAL 0600,2200 bottle 09/09/18 Polyethylene Glycol 3350 [Miralax] 17 gm PO DAILY packet 09/09/18 The following prescriptions were given: Empagliflozin [Jardiance] 25 mg PO DAILY #30 tablet Losartan Potassium 100 mg PO BID #60 tablet Metoprolol(XL)Succ [Toprol Xl (Beta Romel)] 12.5 mg PO BID #30 tablet Primary Care Physician: Gil Wheeler Chi, MD [Primary Care Provider] - Please follow up with your Primary Care Physician in: 1 week. Test Results: Test results from this visit will be discussed in further detail at your follow- up appointment, if applicable. Please Follow Up With: Leobardo Dupree DO When: 2 weeks. Proposed Discharge Date: 09/11/18
--- NOTE | 2018-09-09 20:51 | PCM.DC.SUM ---
Discharge Date and Diagnosis - Problem List Patient Problems: Active and Suspected Problems (Last Reviewed 07/17/18 @ 08:58 by Jethro Dozier MD) Low back pain (Acute) Date of Admission: 08/30/18 Date of Discharge: 09/11/18 - Primary Discharge Diagnosis Active and Suspected Problems (Last Reviewed 07/17/18 @ 08:58 by Jethro Dozier MD) Low back pain (Acute) - Secondary Discharge Diagnosis Chronic Problems (Last Reviewed 07/17/18 @ 08:58 by Jethro Dozier MD) Chronic diastolic heart failure (Chronic) Lymphedema (Chronic) Diabetes mellitus (Chronic) GERD (gastroesophageal reflux disease) (Chronic) Hypothyroidism (Chronic) Lumbar spinal stenosis (Chronic) Osteoarthritis of knees, bilateral (Chronic) Depression (Chronic) Gout (Chronic) Neuropathic pain (Chronic) Abnormal electrocardiogram (Chronic) Non-rheumatic tricuspid valve insufficiency (Chronic) Chronic diastolic (congestive) heart failure (Chronic) Hyperlipidemia (Chronic) Hypertension (Chronic) Chronic acquired lymphedema (Chronic) Hospital Course and Treatment Imaging Results: 09/04/18 13:35 Diet: Cardiac: Calorie-Controlled Is pt able to select menu?: Yes Diet Comments: LOW SODIUM How many daily calories?: 1800 calorie Labs (Last 48 Hours) 09/07/18 09/08/18 09/08/18 21:38 06:18 20:58 POC Glucose 153 H 134 H 188 H 09/09/18 06:14 POC Glucose 124 H Operations: None Procedures: None Summary of Care Provided: The patient is a 73 year old Male with below past medical history hospitalized for lumbar revision surgery 08/28/2018, readmitted to TCU with debility, here for rehabilitation, strengthening, prior to discharge home with spouse. Discharge home with spouse, and Home Health Services. Patient Problems: Active and Suspected Problems (Last Reviewed 07/17/18 @ 08:58 by Jethro Dozier MD) Low back pain (Acute) - Physical Exam Vital Signs Temp Pulse Resp BP Pulse Ox 96.6 F L 62 18 141/76 H 97 09/09/18 15:57 09/09/18 17:30 09/09/18 15:57 09/09/18 15:57 09/09/18 15:57 Oxygen Delivery Method Room Air Weight: 119.75 kg Body Mass Index (BMI) 40.1 Finger Stick Blood Glucose 166 Intake and Output for Last 24 Hours 09/07/18 09/08/18 09/09/18 23:59 23:59 23:59 Intake Total 660 / 660 1320 / 1320 1320 / 1320 Output Total 450 / 450 Balance 660 / 660 870 / 870 1320 / 1320 POC Glucose 09/09/18 09/08/18 06:14 20:58 POC Glucose 124 H 188 H Discharge Diet: No Restrictions Discharge Activity: Return to Normal Activity, May Shower, Use Walker Weight Bearing Status: Weight bearing as tolerated Call your doctor if you observe: Fever of 101 or Higher, Inability to urinate, Inability to have a bowel movement, Shortness of breath, Chest pain, Uncontrolled pain Home Medications: Medications to take at Discharge Paroxetine HCl [Paxil] 40 mg PO DAILY 09/27/16 Potassium Chloride [K-Dur] 20 meq PO BID 09/27/16 Simvastatin [Zocor] 40 mg PO QHS 09/27/16 Sitagliptin Phosphate [Januvia] 100 mg PO DAILY 09/27/16 Torsemide [Demadex] 20 mg PO BID 09/27/16 traZODone [Desyrel] 50 mg PO QHS 09/27/16 Divalproex Sodium [Depakote] 500 mg PO BID 08/14/17 Allopurinol 100 mg PO DAILY 05/17/18 gabapentin 300 mg capsule 300 mg PO BID cap 07/17/18 levothyroxine 100 mcg capsule 112 mcg PO DAILY 07/17/18 Aspirin [Aspirin, Baby] 81 mg PO DAILY@0800 08/16/18 Diclofenac Sodium 25 mg PO BID 08/16/18 Acetaminophen [Tylenol] 1,000 mg PO Q6H PRN tablet 09/09/18 Empagliflozin [Jardiance] 25 mg PO DAILY #30 tablet 09/09/18 Insulin Glargine [Lantus SoloStar Pen] 75 units SC QHS pen 09/09/18 Losartan Potassium 100 mg PO BID #60 tablet 09/09/18 Metoprolol(XL)Succ [Toprol Xl (Beta Romel)] 12.5 mg PO BID #30 tablet 09/09/18 Nystatin Powder [Mycostatin Powder] 1 applic TOPICAL 0600,2200 bottle 09/09/18 Polyethylene Glycol 3350 [Miralax] 17 gm PO DAILY packet 09/09/18 Following Prescrptions Were Given to Patient: Empagliflozin [Jardiance] 25 mg PO DAILY #30 tablet Losartan Potassium 100 mg PO BID #60 tablet Metoprolol(XL)Succ [Toprol Xl (Beta Romel)] 12.5 mg PO BID #30 tablet Primary Care Physician: Gil Wheeler Chi, MD [Primary Care Provider] - Please follow up with your Primary Care Physician in: 1 week. Please Follow Up With: Leobardo Dupree, DO When: 2 weeks. Disposition: Home with Home Health Minutes spent on discharge:: 35 Patient Condition:: Good Medical Necessity - Tobacco Use Smoking Status: Former smoker Tobacco Use: Non-smoker Meaningful Use Info Meaningful Use Diagnoses (Choose all that apply): None applicable
--- NOTE | 2018-09-09 20:53 | PCM.PN.HH ---
Home Health Note - Plan Overview of reason of hospitalization: The patient is a 73 year old Male with below past medical history hospitalized for lumbar revision surgery 08/28/2018, readmitted to TCU with debility, here for rehabilitation, strengthening, prior to discharge home with spouse. Discharge home with spouse, and Home Health Services. Problems: Patient was seen for (Last Reviewed 07/17/18 @ 08:58 by Jethro Dozier MD) Low back pain (Acute) Complete List of Medical Problems (Last Reviewed 07/17/18 @ 08:58 by Jethro Dozier MD) Acute delirium (Acute) Weakness (Acute) Urinary tract infection (Acute) Chronic diastolic heart failure (Chronic) Lymphedema (Chronic) Diabetes mellitus (Chronic) GERD (gastroesophageal reflux disease) (Chronic) Hypothyroidism (Chronic) Lumbar spinal stenosis (Chronic) Osteoarthritis of knees, bilateral (Chronic) Depression (Chronic) Gout (Chronic) Neuropathic pain (Chronic) Low back pain (Acute) Preop cardiovascular exam (Acute) Abnormal electrocardiogram (Chronic) Non-rheumatic tricuspid valve insufficiency (Chronic) Chronic diastolic (congestive) heart failure (Chronic) Hyperlipidemia (Chronic) Hypertension (Chronic) Skin tear of right lower leg without complication (Acute) Chronic acquired lymphedema (Chronic) Fissure in skin of foot (Acute) - Requirements and Reasons Disciplines Needed/Ordered: Longterm, Physical Therapy Reason for Disciplines: Disease Specific Monitoring/education, Medication Management/Knowledge Deficit, Observation Assessment, Gait Training, Stair Training, Fall Prevention, Home Safety/Equipment Instruction, Balance and/or Posture Training, Transfer Training, Swallowing Exercise/Education Related To: Limited/Poor Endurance, Shortness of Breath with Activity, Physical Impairments, Unsteady Gait/Balance, Fall Risk Patient is unable to leave the home: Without Aid of Supportive Devices (crutches, cane, wheelchair, walker), Without the assistance of another person - Additional Disciplines Additional Disciplines Needed/Ordered: Occupational Therapy, Home Health Aide
[2018-09-09 21:11] LABS: Bedside Glucose 208 mg/dL (70-110)
[2018-09-09] MEDS: traZODone 50 MG Tablet PO (21:46)
[2018-09-10] MEDS: Nystatin Powder 15gm Bottle 1 APPLIC TOPICAL ×2 (05:13→21:26)
[2018-09-10] MEDS: Menthol/Lanolin/Calamine/Znox 113 GM Tube 1 APPLIC TOPICAL ×3 (05:15→21:26)
[2018-09-10] MEDS: Enoxaparin 40 MG/0.4 ML Syringe SC (05:16)
[2018-09-10 05:17] VITALS: BP 156/89; PULSE 63
[2018-09-10] MEDS: Levothyroxine 112 MCG Tablet PO (05:17)
[2018-09-10] MEDS: Furosemide 40 MG Tablet PO ×2 (05:17→13:42)
[2018-09-10] MEDS: LINAGLIPTIN 5 MG TABLET PO (05:17)
[2018-09-10] MEDS: Gabapentin 300 MG Capsule PO ×2 (05:17→16:54)
[2018-09-10] MEDS: Divalproex Sodium 250 MG Tablet 500 MG PO ×2 (05:17→16:54)
[2018-09-10] MEDS: Metoprolol(XL)Succ 25 MG Tablet 12.5 MG PO ×2 (05:17→16:53)
[2018-09-10] MEDS: Losartan Potassium 100 MG Tablet PO ×2 (05:17→16:55)
[2018-09-10] MEDS: Empagliflozin 25 MG Tablet PO (05:18)
[2018-09-10] MEDS: Allopurinol 100 MG Tablet PO (05:18)
[2018-09-10 06:46] LABS: Bedside Glucose 140 mg/dL (70-110)
[2018-09-10] MEDS: Aspirin 81 MG TAB.CHEW PO (09:20)
--- NOTE | 2018-09-10 09:52 | MDS.RN ---
Information for the mds was obtained from review of the clinical record, interview of resident, staff, and direct observation of resident's care.
[2018-09-10 15:46] VITALS: BP 136/67; PULSE 58; RESP 20; TEMP 36.8; O2SAT 92
[2018-09-10 16:53] VITALS: BP 136/67; PULSE 58
[2018-09-10 21:25] LABS: Bedside Glucose 197 mg/dL (70-110)
[2018-09-10] MEDS: traZODone 50 MG Tablet PO (21:26)
[2018-09-11 04:14] VITALS: BP 131/73; PULSE 64
[2018-09-11] MEDS: Furosemide 40 MG Tablet PO ×2 (04:14→13:39)
[2018-09-11] MEDS: Metoprolol(XL)Succ 25 MG Tablet 12.5 MG PO (04:14)
[2018-09-11] MEDS: Losartan Potassium 100 MG Tablet PO (04:14)
[2018-09-11] MEDS: Allopurinol 100 MG Tablet PO (04:14)
[2018-09-11] MEDS: Divalproex Sodium 250 MG Tablet 500 MG PO (04:14)
[2018-09-11] MEDS: Levothyroxine 112 MCG Tablet PO (04:15)
[2018-09-11] MEDS: Gabapentin 300 MG Capsule PO (04:15)
[2018-09-11] MEDS: Enoxaparin 40 MG/0.4 ML Syringe SC (04:15)
[2018-09-11] MEDS: LINAGLIPTIN 5 MG TABLET PO (04:15)
[2018-09-11] MEDS: Empagliflozin 25 MG Tablet PO (04:15)
[2018-09-11] MEDS: Nystatin Powder 15gm Bottle 1 APPLIC TOPICAL (04:19)
[2018-09-11 04:21] VITALS: O2SAT 97
[2018-09-11] MEDS: Menthol/Lanolin/Calamine/Znox 113 GM Tube 1 APPLIC TOPICAL ×2 (04:25→13:39)
[2018-09-11 06:56] LABS: Bedside Glucose 161 mg/dL (70-110)
[2018-09-11] MEDS: Aspirin 81 MG TAB.CHEW PO (09:09)
[2018-09-11 11:46] LABS: Bedside Glucose 165 mg/dL (70-110)
[2018-09-11 12:52] VITALS: BP 162/75; PULSE 53; RESP 18; TEMP 36.5; O2SAT 98
--- NOTE | 2018-09-11 16:42 | CASEMGMT ---
Insurance Notified insurance of resident discharge on 09/11/18 to home with spouse and home health services. Auth#[id number] Tamia MA, OIL WELL DIRECTIONAL SURVEYOR
== END 2018-09-11 14:59 | disposition home health service (06) | DRG 560 ==
PROVIDERS: Admitting Provider Family Medicine Geriatric Medicine; Family Provider Family Medicine Geriatric Medicine; PCP Family Medicine Geriatric Medicine; Visit Provider Family Medicine Geriatric Medicine
DX: Z47.89 Encounter for other orthopedic aftercare (principal); I50.32 Chronic diastolic (congestive) heart failure; E78.5 Hyperlipidemia, unspecified; M48.061 Spinal stenosis, lumbar region without neurogenic claudication; E03.9 Hypothyroidism, unspecified; K21.9 Gastro-esophageal reflux disease without esophagitis; I11.0 Hypertensive heart disease with heart failure; E11.9 Type 2 diabetes mellitus without complications; M17.0 Bilateral primary osteoarthritis of knee; G47.33 Obstructive sleep apnea (adult) (pediatric); Z77.090 Contact with and (suspected) exposure to asbestos; Z87.891 Personal history of nicotine dependence; I25.10 Atherosclerotic heart disease of native coronary artery without angina pectoris; M10.9 Gout, unspecified; E87.6 Hypokalemia; B35.4 Tinea corporis; F32.9 Major depressive disorder, single episode, unspecified
CPT/HCPCS: 36415; 80048; 82962; 85025; 97110; 97116; 97162; 97166; 97530; 97533; 97535; 97802

== ENCOUNTER → 2018-12-02 15:10 | Outpatient (CLI) | payer MEDICARE, SELFPAY ==
[2018-11-29 12:11] VITALS: BMI 40.3
== END ==
PROVIDERS: Family Provider Family Medicine Geriatric Medicine; PCP Family Medicine Geriatric Medicine; Referring Provider Family Medicine Geriatric Medicine; Visit Provider Family Medicine Geriatric Medicine
DX: R68.83 Chills (without fever) (principal)
CPT/HCPCS: 87633

== ENCOUNTER 2018-12-10 10:30 | Outpatient (RCR) | payer MEDICARE, SELFPAY ==
[2018-11-26 10:26] VITALS: BP 165/76; PULSE 59; RESP 16; TEMP 36.6; BMI 40.3
--- NOTE | 2018-11-26 11:00 | PCM.WC.HP ---
(1) Chronic venous insufficiency Status: Chronic Current Visit: Yes Code(s): I87.2 - Venous insufficiency (chronic) (peripheral) (2) Dependent edema Status: Chronic Current Visit: Yes Code(s): R60.9 - Edema, unspecified (3) Debility Status: Chronic Current Visit: Yes Code(s): R53.81 - Other malaise (4) Leg swelling Status: Chronic Current Visit: Yes Code(s): M79.89 - Other specified soft tissue disorders (5) EH (obstructive sleep apnea) Status: Chronic Current Visit: No Code(s): G47.33 - Obstructive sleep apnea (adult) (pediatric) (6) Tricuspid valve insufficiency Status: Chronic Current Visit: No Code(s): I07.1 - Rheumatic tricuspid insufficiency (7) Venous stasis ulcer Status: Chronic Current Visit: Yes Qualifiers: Venous stasis ulcer site: calf Laterality: right Code(s): I83.009 - Varicose veins of unspecified lower extremity with ulcer of unspecified site; L97.909 - Non-pressure chronic ulcer of unspecified part of unspecified lower leg with unspecified severity (8) Obesity, morbid, BMI 40.0-49.9 Status: Chronic Current Visit: Yes Code(s): E66.01 - Morbid (severe) obesity due to excess calories (9) Chronic diastolic heart failure Status: Chronic Current Visit: No Code(s): I50.32 - Chronic diastolic (congestive) heart failure (10) Lymphedema Status: Chronic Current Visit: Yes Code(s): I89.0 - Lymphedema, not elsewhere classified (11) Diabetes mellitus Status: Chronic Current Visit: No Qualifiers: Diabetes mellitus type: type 2 Code(s): E11.9 - Type 2 diabetes mellitus without complications (12) GERD (gastroesophageal reflux disease) Status: Chronic Current Visit: No Code(s): K21.9 - Gastro-esophageal reflux disease without esophagitis (13) Hypothyroidism Status: Chronic Current Visit: No Code(s): E03.9 - Hypothyroidism, unspecified (14) Lumbar spinal stenosis Status: Chronic Current Visit: No Code(s): M48.061 - Spinal stenosis, lumbar region without neurogenic claudication (15) Osteoarthritis of knees, bilateral Status: Chronic Current Visit: No Code(s): M17.0 - Bilateral primary osteoarthritis of knee (16) Gout Status: Chronic Current Visit: No Code(s): M10.9 - Gout, unspecified (17) Low back pain Status: Chronic Current Visit: No Code(s): M54.5 - Low back pain (18) Non-rheumatic tricuspid valve insufficiency Status: Chronic Current Visit: No Code(s): I36.1 - Nonrheumatic tricuspid (valve) insufficiency (19) Chronic diastolic (congestive) heart failure Status: Chronic Current Visit: No Code(s): I50.32 - Chronic diastolic (congestive) heart failure (20) Hyperlipidemia Status: Chronic Current Visit: No Qualifiers: Code(s): E78.5 - Hyperlipidemia, unspecified (21) Hypertension Status: Chronic Current Visit: No Qualifiers: Code(s): I10 - Essential (primary) hypertension History of Present Illness Chief Complaint: Right lower extremity ulceration, associated with chronic bilateral lower extremity swelling and edema. History of Wound: This is a 73-year-old male with multiple medical problems. He leads a very sedentary lifestyle, and is very limited in his ambulation. He relies on a wheelchair for mobility. He suffers from severe degenerative disease of knees and hips. He also has severe back problems, having previously undergone 4 back surgeries in the past due to spinal stenosis. He does not sleep in a recumbent position. Rather, he sleeps in a lift chair, typically with his legs in a dependent position. He has been treated for venous ulcerations in his lower extremities in the past, and has CircAid Velcro compression garments and mechanical pneumatic compression pumps, with which she has been somewhat lax and noncompliant recently. His current ulceration, located on the right anterior tibial surface, was noted to have its origin on , only about 1 week ago. According to the patient, and his , the power went out at his home, and he spent a good part of the day and an idle sitting position. He developed a blister on the right anterior tibial surface, which subsequently unroofed, leaving in its place a superficial ulceration. He presents at this time for management recommendations regarding the ulceration on the right lower extremity. The patient suffers from chronic swelling and edema in his lower extremities bilaterally. He has a past medical history which is significant for that of hypertension hyperlipidemia, GERD, type 2 diabetes mellitus, CHF, and hypothyroidism. The patient's ability to elevate his lower extremities is somewhat limited by his chronic low back pain, spinal stenosis, and degenerative joint problems. His degenerative joint disease also plays a major role in his limited ability to ambulate. He denies a history of thrombophlebitis in the past. Past Medical History Past Medical History: Chronic Problems (Last Reviewed 07/17/18 @ 08:58 by Jethro Dozier MD) Chronic diastolic heart failure (Chronic) Lymphedema (Chronic) Diabetes mellitus (Chronic) GERD (gastroesophageal reflux disease) (Chronic) Hypothyroidism (Chronic) Lumbar spinal stenosis (Chronic) Osteoarthritis of knees, bilateral (Chronic) Depression (Chronic) Gout (Chronic) Neuropathic pain (Chronic) Low back pain (Chronic) Chronic venous insufficiency (Chronic) Dependent edema (Chronic) Debility (Chronic) Leg swelling (Chronic) EH (obstructive sleep apnea) (Chronic) Tricuspid valve insufficiency (Chronic) Venous stasis ulcer (Chronic) Obesity, morbid, BMI 40.0-49.9 (Chronic) Abnormal electrocardiogram (Chronic) Non-rheumatic tricuspid valve insufficiency (Chronic) Chronic diastolic (congestive) heart failure (Chronic) Hyperlipidemia (Chronic) Hypertension (Chronic) Chronic acquired lymphedema (Chronic) Past Medical History: Patient has a history of obstructive sleep apnea, hypertension, hyperlipidemia, diabetes mellitus, gastroesophageal reflux disease, hypothyroidism, tricuspid valve insufficiency, and congestive heart failure. He also suffers from spinal stenosis and degenerative joint disease. Surgical History: cholecystectomy, total hip arthroplasty - Right, total knee arthroplasty - Right., - - Left shoulder surgery with rotator cuff repair; back surgery x 4; left cochlear implant. Allergies/Adverse Reactions: Allergies cocaine Allergy (Verified 09/11/18 13:52) Unknown atorvastatin calcium [From Lipitor] Adverse Reaction (Verified 09/11/18 13:52) Pain in joints haloperidol [From Haldol] Adverse Reaction (Verified 09/11/18 13:52) Other WENT CRAZY morphine Adverse Reaction (Verified 09/11/18 13:52) Other extremely aggitated oxycodone [From OxyIR] Adverse Reaction (Verified 09/11/18 13:52) Pain in joints extremely aggitated prednisone Adverse Reaction (Verified 09/11/18 13:52) ANXIOUS, INSOMNIA STERIODS Adverse Reaction (Uncoded 08/16/18 02:59) Other ANXIETY INSOMNIA Home Medications: Ambulatory Orders Medication Instructions Recorded Paroxetine HCl [Paxil] 40 mg PO DAILY 09/27/16 Potassium Chloride [K-Dur] 20 meq PO BID 09/27/16 Simvastatin [Zocor] 40 mg PO QHS 09/27/16 Sitagliptin Phosphate [Januvia] 100 mg PO DAILY 09/27/16 Torsemide [Demadex] 20 mg PO BID 09/27/16 traZODone [Desyrel] 50 mg PO QHS 09/27/16 Divalproex Sodium [Depakote] 500 mg PO BID 08/14/17 Allopurinol 100 mg PO DAILY 05/17/18 gabapentin 300 mg capsule 300 mg PO BID cap 07/17/18 levothyroxine 100 mcg capsule 112 mcg PO DAILY 07/17/18 Aspirin [Aspirin, Baby] 81 mg PO DAILY@0800 08/16/18 Diclofenac Sodium 25 mg PO BID 08/16/18 Acetaminophen [Tylenol] 1,000 mg PO Q6H PRN tablet 09/09/18 Empagliflozin [Jardiance] 25 mg PO DAILY #30 tablet 09/09/18 Insulin Glargine [Lantus SoloStar 75 units SC QHS pen 09/09/18 Pen] Losartan Potassium 100 mg PO BID #60 tablet 09/09/18 Metoprolol(XL)Succ [Toprol Xl 12.5 mg PO BID #30 tablet 09/09/18 (Beta Romel)] Nystatin Powder [Mycostatin Powder] 1 applic TOPICAL 0600,2200 bottle 09/09/18 Polyethylene Glycol 3350 [Miralax] 17 gm PO DAILY packet 09/09/18 - Family History Maternal Family History: Family History (Last Reviewed 07/17/18 @ 08:58 by Jethro Dozier MD) Mother Hypertension Father Hypertension Dementia, Hypertension Paternal Family History: Family History (Last Reviewed 07/17/18 @ 08:58 by Jethro Dozier MD) Mother Hypertension Father Hypertension Heart Disease - decased age 73, Hypertension Social History: Patient is and lives with his . He denies the use of alcohol or tobacco products. 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 Lives: Spouse/ Significant Other Smoking Status: Never smoker Tobacco Use: Non-smoker Alcohol: None Drugs: None Review of Systems Constitutional: Denies: Chills, Fever, Weight Change Eyes: Denies: Pain, Vision Change HEENT: Denies: Difficulty Hearing, Difficulty Swallowing, Sinus Congestion Cardiovascular: Denies: Chest Pain, Palpitations Respiratory: Denies: Cough, Shortness of Breath Gastrointestinal: Denies: Diarrhea, Nausea, Vomiting Genitourinary: Denies: Dysuria, Hematuria Endocrine: Denies: Heat/ Cold Intolerance, Polydipsia, Polyuria Hematologic/ Lymphatic: Denies: Easy Bruising, Easy Bleeding - Physical Exam Vital Signs Temp Pulse Resp BP 97.8 F 59 L 16 165/76 H 11/26/18 10:26 11/26/18 10:26 11/26/18 10:11/26/18 10:26 General: Alert, Oriented x3, Cooperative, No apparent distress, Well developed, Well nourished, - - The patient is morbidly obese HEENT: Atraumatic, PERRLA, EOMI, Normocephalic Oral: Moist Mucosa Neck: No JVD, Negative Carotid Bruits, Negative Hepatojugular Reflux, No Nodes, No Nuchal Rigidity, Trachea Midline Lungs: Clear to auscultation, Normal air movement, No rhonchi, No wheeze, No rales Cardiovascular: Regular rate, Regular Rhythm, Normal S1, Normal S2, No murmurs Abdomen: Soft, Non Tender, Non-Distended, Obese Extremities: No clubbing, No cyanosis, No Calf Tenderness, Edema, - - Bilateral lower extremity swelling and edema is noted. A superficial ulceration is noted on the right anterior tibial surface. There is a moderate amount of bioburden. There is no sign of infection or cellulitis. Dimensions are documented elsewhere. Wound Measurements and Assessment WC - Nurse 1 - General Ulcer Measurement Start: 11/26/18 10:14 Freq: Status: Active Protocol: Activity Type Activity Date Activity User E-Sign Co-Sign Detail Recorded Client Recorded Date Recorded By Document 11/26/18 10:26 [id number] 11/26/18 10:39 11/26/18 10:26 Wound Center Nurse 1 [Ulcer Assessment] #2 RIGHT NEGRO -Combined with other wound No -Current Size (cm) - Length 1.4 -Current Size (cm) - Width 1.5 -Current Size (cm) - Depth 0.1 -Total Square Cm 2.10 -Date of Last Picture (Recall this 11/26/18 field) -Photo Taken Yes -Epithelialization None Present -Tunneling No -Undermining/Tunneling No -Circular Undermining No -Exudate Amt Small (1-33%) -Exudate Type Yellow/Green -Wound Margin Distinct, Outline Attached -Granulation Amt None Present (0 %) -Granulation Quality N/A -Slough/Fibrin Yes -Necrosis Amt Medium (34-66%) -Necrotic Tissue Type Adherent Slough -Structure Exposed None/Limited to Skin Breakdown -Texture (Bria-wound Skin Appearance) Assessed Localized Edema -Moisture (Bria-wound Skin Appearance Dry/Scaly ) -Color (Bria-wound Skin Appearance) Erythema Hemosiderin Staining -Temperature (Bria-wound Skin No Abnormality Appearance) (Pt Warm) -Tenderness on Palpation (Bria-wound No Skin Appearance) -Ulcer Cleansing Rinsed/ Irrigated with Saline -Foul Odor after Cleansing No -Anesthetic Used 4% Lidocaine Solution [Edema Assessment] -Lower Limb Edema Present No -Right Calf (cm) 40 -Right Ankle (cm) 23.5 -Left Calf (cm) 39 -Left Ankle (cm) 23 WC - Nurse 2 - General Ulcer CM Notes Start: 11/26/18 10:14 Freq: Status: Active Protocol: Activity Type Activity Date Activity User E-Sign Co-Sign Detail Recorded Client Recorded Date Recorded By Document 11/26/18 10:52 DV [id number] 11/26/18 10:55 DV 11/26/18 10:52 Wound Center Nurse 2 [Procedure/Treatment] #2 RIGHT NEGRO -Time 10:53 -Correct Patient Yes -Correct Side, Site, Position Yes -Correct Procedure Yes -Procedure Performed Yes -Type of Procedure Debridement -Clinical Debridement Subcutaneous -Post Debridement Size (cm) - Length 1.0 -Post Debridement Size (cm) - Width 1.5 -Post Debridement Size (cm) - Depth 0.1 -Total Square Cm 1.50 -Wound/Ulcer Outcome Not Healed -Ulcer Cleansing Rinsed/ Irrigated with Saline -Foul Odor after Cleansing No -Bioengineered Tissue No -Bleeding Controlled with Pressure -Offloading No -Treatment Response Procedure Tolerated Well [See Physician Procedure note for Specifics] Pain Scale: 0-10 Numeric [Pain] -Is Patient Pain Free? Yes Neurological: Cranial nerves II-XII grossly intact, Neuro grossly intact, - - The left cochlear implant device is noted Psych/Mental Status: Normal Affect, Appropriate, Alert and oriented to time, place, person, mood and affect Debridement Note Post-Debridement Measurements/Treatment WC - Nurse 2 - General Ulcer CM Notes Start: 11/26/18 10:14 Freq: Status: Active Protocol: Activity Type Activity Date Activity User E-Sign Co-Sign Detail Recorded Client Recorded Date Recorded By Document 11/26/18 10:52 DV [id number] 11/26/18 10:55 DV 11/26/18 10:52 Wound Center Nurse 2 #2 RIGHT NEGRO -Time 10:53 -Correct Patient Yes -Correct Side, Site, Position Yes -Correct Procedure Yes -Procedure Performed Yes -Type of Procedure Debridement -Clinical Debridement Subcutaneous -Post Debridement Size (cm) - Length 1.0 -Post Debridement Size (cm) - Width 1.5 -Post Debridement Size (cm) - Depth 0.1 -Total Square Cm 1.50 -Wound/Ulcer Outcome Not Healed -Ulcer Cleansing Rinsed/ Irrigated with Saline -Foul Odor after Cleansing No -Bioengineered Tissue No -Bleeding Controlled with Pressure -Offloading No -Treatment Response Procedure Tolerated Well Pain Scale: 0-10 Numeric Is Patient Pain Free? Yes Laterality: Right - Anterior tibial surface Type of Debridement: Excisional debridement Anesthesia Used: 5% Lidocaine Gel Depth: Down to and including healthy tissue, in the subcutaneous layer Percentage of wound debrided: 100 Instrument Used: 7mm curette Severity: Fat Layer Exposed Amount of bleeding with debridement: Mild Bleeding Controlled with: Compression and gauze Patient tolerated procedure well Assessment/Plan Active Problems (Last Reviewed 07/17/18 @ 08:58 by Jethro Dozier MD) Lymphedema (Chronic) Chronic venous insufficiency (Chronic) Dependent edema (Chronic) Debility (Chronic) Leg swelling (Chronic) Venous stasis ulcer (Chronic) Obesity, morbid, BMI 40.0-49.9 (Chronic) Assessment: This is a 73-year-old male with multiple problems, as documented above. He presents with swelling and edema in his lower extremities, which are chronic in nature. He has recently developed an ulceration on the right anterior tibial surface, thought to be secondary to dependent edema. The patient's lifestyle, dictated by his musculoskeletal and orthopedic problems, appears to be responsible for his lower extremity presenting symptoms and manifestations. His lower extremities are in a dependent position throughout the day. It appears as though he engages in elevation of his lower extremities only minimally. Furthermore, due to his orthopedic problems, he does not ambulate significantly, and does not therefore implement the calf and foot muscle pumps to his advantage. The result has been chronic swelling and edema in his lower extremities, with intermittent episodes of ulcerations. Plan: Conservative treatment measures are to be implemented. A lengthy discussion has been undertaken with the patient and the patient's , who is at the bedside. Leg elevation has been encouraged, with elevation of his legs to heart level, or higher. This is to be accomplished as much as possible. He has been encouraged to sleep in a recumbent position, or at least in a recliner with his legs level with his heart, or higher. Even during daytime hours, the patient has been encouraged to elevate his lower extremities as much as possible. Ambulation has been encouraged, but acknowledgment is made to the fact that the patient is limited due to his musculoskeletal problems. The patient and his have been encouraged to use his mechanical pneumatic compression pumps at least twice or 3 times daily. Compression is to be implemented by means of an Unna boot, which will be applied today, and will be changed twice weekly. The patient has been encouraged to lose weight. The patient will return in 1 week for reassessment. The patient has undergone an arterial study in May 2018 which showed no evidence of significant arterial insufficiency. The patient's venous study at that time also failed to reveal significant superficial venous insufficiency. Influenza vaccine was not administered today. The patient is non-smoker. Patient weighs 265 pounds. He stands 5 feet 8 inches tall. His BMI is 40.3, which places him in a class III obesity category. Weight loss has been recommended, in collaboration with his primary care physician has been advised.
[2018-11-29 12:11] VITALS: BP 153/78; PULSE 65; RESP 18; TEMP 36.7; BMI 40.3
[2018-12-03 10:27] VITALS: BP 143/70; PULSE 77; RESP 22; TEMP 36.1; BMI 40.3
--- NOTE | 2018-12-03 11:34 | HP.PCM_ITS ---
(1) Chronic venous insufficiency Status: Chronic Current Visit: Yes Code(s): I87.2 - Venous insufficiency (chronic) (peripheral) (2) Dependent edema Status: Chronic Current Visit: Yes Code(s): R60.9 - Edema, unspecified (3) Debility Status: Chronic Current Visit: Yes Code(s): R53.81 - Other malaise (4) Leg swelling Status: Chronic Current Visit: Yes Code(s): M79.89 - Other specified soft tissue disorders (5) HE (obstructive sleep apnea) Status: Chronic Current Visit: No Code(s): G47.33 - Obstructive sleep apnea (adult) (pediatric) (6) Tricuspid valve insufficiency Status: Chronic Current Visit: No Code(s): I07.1 - Rheumatic tricuspid insufficiency (7) Venous stasis ulcer Status: Chronic Current Visit: Yes Qualifiers: Venous stasis ulcer site: calf Laterality: right Code(s): I83.009 - Varicose veins of unspecified lower extremity with ulcer of unspecified site; L97.909 - Non-pressure chronic ulcer of unspecified part of unspecified lower leg with unspecified severity (8) Obesity, morbid, BMI 40.0-49.9 Status: Chronic Current Visit: Yes Code(s): E66.01 - Morbid (severe) obesity due to excess calories (9) Chronic diastolic heart failure Status: Chronic Current Visit: No Code(s): I50.32 - Chronic diastolic (congestive) heart failure (10) Lymphedema Status: Chronic Current Visit: Yes Code(s): I89.0 - Lymphedema, not elsewhere classified (11) Diabetes mellitus Status: Chronic Current Visit: No Qualifiers: Diabetes mellitus type: type 2 Code(s): E11.9 - Type 2 diabetes mellitus without complications (12) GERD (gastroesophageal reflux disease) Status: Chronic Current Visit: No Code(s): K21.9 - Gastro-esophageal reflux disease without esophagitis (13) Hypothyroidism Status: Chronic Current Visit: No Code(s): E03.9 - Hypothyroidism, unspecified (14) Lumbar spinal stenosis Status: Chronic Current Visit: No Code(s): M48.061 - Spinal stenosis, lumbar region without neurogenic claudication (15) Osteoarthritis of knees, bilateral Status: Chronic Current Visit: No Code(s): M17.0 - Bilateral primary osteoarthritis of knee (16) Gout Status: Chronic Current Visit: No Code(s): M10.9 - Gout, unspecified (17) Low back pain Status: Chronic Current Visit: No Code(s): M54.5 - Low back pain (18) Non-rheumatic tricuspid valve insufficiency Status: Chronic Current Visit: No Code(s): I36.1 - Nonrheumatic tricuspid (valve) insufficiency (19) Chronic diastolic (congestive) heart failure Status: Chronic Current Visit: No Code(s): I50.32 - Chronic diastolic (congestive) heart failure (20) Hyperlipidemia Status: Chronic Current Visit: No Qualifiers: Code(s): E78.5 - Hyperlipidemia, unspecified (21) Hypertension Status: Chronic Current Visit: No Qualifiers: Code(s): I10 - Essential (primary) hypertension History of Present Illness Chief Complaint: Right lower extremity ulceration, associated with chronic bilateral lower extremity swelling and edema. History of Wound: This is a 73-year-old male with multiple medical problems. He leads a very sedentary lifestyle, and is very limited in his ambulation. He relies on a wheelchair for mobility. He suffers from severe degenerative disease of knees and hips. He also has severe back problems, having previously undergone 4 back surgeries in the past due to spinal stenosis. He does not sleep in a recumbent position. Rather, he sleeps in a lift chair, typically with his legs in a dependent position. He has been treated for venous ulcera tions in his lower extremities in the past, and has CircAid Velcro compression garments and mechanical pneumatic compression pumps, with which she has been somewhat lax and noncompliant recently. His current ulceration, located on the right anterior tibial surface, was noted to have its origin on , only about 1 week ago. According to the patient, and his , the power went out at his home, and he spent a good part of the day and an idle sitting position. He developed a blister on the right anterior tibial surface, which subsequently unroofed, leaving in its place a superficial ulceration. He presents at this time for management recommendations regarding the ulceration on the right lower extremity. The patient suffers from chronic swelling and edema in his lower extremities bilaterally. He has a past medical history which is significant for that of hypertension hyperlipidemia, GERD, type 2 diabetes mellitus, CHF, and hypothyroidism. The patient's ability to elevate his lower extremities is somewhat limited by his chronic low back pain, spinal stenosis, and degenerative joint problems. His degenerative joint disease also plays a major role in his limited ability to ambulate. He denies a history of thrombophlebitis in the past. Past Medical History Past Medical History: Chronic Problems (Last Reviewed 07/17/18 @ 08:58 by Jethro Dozier MD) Chronic diastolic heart failure (Chronic) Lymphedema (Chronic) Diabetes mellitus (Chronic) GERD (gastroesophageal reflux disease) (Chronic) Hypothyroidism (Chronic) Lumbar spinal stenosis (Chronic) Osteoarthritis of knees, bilateral (Chronic) Depression (Chronic) Gout (Chronic) Neuropathic pain (Chronic) Low back pain (Chronic) Chronic venous insufficiency (Chronic) Dependent edema (Chronic) Debility (Chronic) Leg swelling (Chronic) EH (obstructive sleep apnea) (Chronic) Tricuspid valve insufficiency (Chronic) Venous stasis ulcer (Chronic) Obesity, morbid, BMI 40.0-49.9 (Chronic) Abnormal electrocardiogram (Chronic) Non-rheumatic tricuspid valve insufficiency (Chronic) Chronic diastolic (congestive) heart failure (Chronic) Hyperlipidemia (Chronic) Hypertension (Chronic) Chronic acquired lymphedema (Chronic) Surgical History: cholecystectomy, total hip arthroplasty - Right, total knee arthroplasty - Right., - - Left shoulder surgery with rotator cuff repair; back surgery x 4; left cochlear implant. Allergies/Adverse Reactions: Allergies cocaine Allergy (Verified 09/11/18 13:52) Unknown atorvastatin calcium [From Lipitor] Adverse Reaction (Verified 09/11/18 13:52) Pain in joints haloperidol [From Haldol] Adverse Reaction (Verified 09/11/18 13:52) Other WENT CRAZY morphine Adverse Reaction (Verified 09/11/18 13:52) Other extremely aggitated oxycodone [From OxyIR] Adverse Reaction (Verified 09/11/18 13:52) Pain in joints extremely aggitated prednisone Adverse Reaction (Verified 09/11/18 13:52) ANXIOUS, INSOMNIA STERIODS Adverse Reaction (Uncoded 08/16/18 02:59) Other ANXIETY INSOMNIA Home Medications: Ambulatory Orders Medication Instructions Recorded Paroxetine HCl [Paxil] 40 mg PO DAILY 09/27/16 Potassium Chloride [K-Dur] 20 meq PO BID 09/27/16 Simvastatin [Zocor] 40 mg PO QHS 09/27/16 Sitagliptin Phosphate [Januvia] 100 mg PO DAILY 09/27/16 Torsemide [Demadex] 20 mg PO BID 09/27/16 traZODone [Desyrel] 50 mg PO QHS 09/27/16 Divalproex Sodium [Depakote] 500 mg PO BID 08/14/17 Allopurinol 100 mg PO DAILY 05/17/18 gabapentin 300 mg capsule 300 mg PO BID cap 07/17/18 levothyroxine 100 mcg capsule 112 mcg PO DAILY 07/17/18 Aspirin [Aspirin, Baby] 81 mg PO DAILY@0800 08/16/18 Diclofenac Sodium 25 mg PO BID 08/16/18 Acetaminophen [Tylenol] 1,000 mg PO Q6H PRN tablet 09/09/18 Empagliflozin [Jardiance] 25 mg PO DAILY #30 tablet 09/09/18 Insulin Glargine [Lantus SoloStar 75 units SC QHS pen 09/09/18 Pen] Losartan Potassium 100 mg PO BID #60 tablet 09/09/18 Metoprolol(XL)Succ [Toprol Xl 12.5 mg PO BID #30 tablet 09/09/18 (Beta Romel)] Nystatin Powder [Mycostatin Powder] 1 applic TOPICAL 0600,2200 bottle 09/09/18 Polyethylene Glycol 3350 [Miralax] 17 gm PO DAILY packet 09/09/18 Albuterol IH (ProAir) [Proair Hfa 1 - 2 puff INHALATION Q6H PRN PRN 12/03/18 (SP)Vent Pts] Azithromycin [Zithromax] 250 mg PO DAILY 12/03/18 Cefdinir 300 mg PO 12/03/18 Codeine Phosphate/Guaifenesin 100 ml PRN 12/03/18 [Codeine-Guaifen 10-100 mg/5 ml] - Family History Maternal Family History: Family History (Last Reviewed 07/17/18 @ 08:58 by Jethro Dozier MD) Mother Hypertension Father Hypertension Dementia, Hypertension Paternal Family History: Family History (Last Reviewed 07/17/18 @ 08:58 by Jethro Dozier MD) Mother Hypertension Father Hypertension Heart Disease - decased age 73, Hypertension Lives: Spouse/ Significant Other Smoking Status: Never smoker Tobacco Use: Non-smoker Alcohol: None Drugs: None Review of Systems Constitutional: Denies: Chills, Fever, Weight Change Eyes: Denies: Pain, Vision Change HEENT: Denies: Difficulty Hearing, Difficulty Swallowing, Sinus Congestion Cardiovascular: Denies: Chest Pain, Palpitations Respiratory: Denies: Cough, Shortness of Breath Gastrointestinal: Denies: Diarrhea, Nausea, Vomiting Genitourinary: Denies: Dysuria, Hematuria Endocrine: Denies: Heat/ Cold Intolerance, Polydipsia, Polyuria Hematologic/ Lymphatic: Denies: Easy Bruising, Easy Bleeding - Physical Exam Vital Signs Temp Pulse Resp BP 96.9 F L 77 22 H 143/70 H 12/03/18 10:27 12/03/18 10:27 12/03/18 10:27 12/03/18 10:27 General: Alert, Oriented x3, Cooperative, No apparent distress, Well developed, Well nourished HEENT: Atraumatic, PERRLA, EOMI, Normocephalic Oral: Moist Mucosa Neck: No JVD Lungs: Normal air movement Abdomen: Non-Distended Extremities: No clubbing, No cyanosis, No Calf Tenderness, - - Mild swelling and edema persist in the right lower extremity. The ulceration on the right anterior tibial surface is much smaller than previously noted, and it is quite superficial. The base of the ulceration is generally pink and healthy in appearance, with a mild amount of bioburden. Dimentions are documented elsewhere. Wound Measurements and Assessment WC - Nurse 1 - General Ulcer Measurement Start: 11/26/18 10:14 Freq: Status: Active Protocol: Activity Type Activity Date Activity User E-Sign Co-Sign Detail Recorded Client Recorded Date Recorded By Document 12/03/18 10:27 [id number] 12/03/18 10:41 DL 12/03/18 10:27 Wound Center Nurse 1 [Ulcer Assessment] #2 RIGHT NEGRO -Current Size (cm) - Length 0.7 -Current Size (cm) - Width 0.4 -Current Size (cm) - Depth 0.1 -Total Square Cm 0.28 -Photo Taken No -Exudate Amt Small -Exudate Type Sanguineous -Wound Margin Flat & Intact -Granulation Amt Large (67-100%) -Granulation Quality [place] -Necrosis Amt None Present (0 %) -Structure Exposed N/A -Texture (Bria-wound Skin Appearance) Scarring -Moisture (Bria-wound Skin Appearance No Abnormality ) -Color (Bria-wound Skin Appearance) Hemosiderin Staining -Temperature (Bria-wound Skin No Abnormality Appearance) (Pt Warm) -Tenderness on Palpation (Bria-wound No Skin Appearance) -Ulcer Cleansing Wound Cleanser -Foul Odor after Cleansing No -Anesthetic Used 4% Lidocaine Solution [Edema Assessment] -Right Calf (cm) 37.3 -Right Ankle (cm) 22.3 -Left Calf (cm) 39 -Left Ankle (cm) 21.6 DANIELE - Nurse 2 - General Ulcer CM Notes Start: 11/26/18 10:14 Freq: Status: Active Protocol: Activity Type Activity Date Activity User E-Sign Co-Sign Detail Recorded Client Recorded Date Recorded By Document 12/03/18 11:19 DV [id number] 12/03/18 11:26 DV 12/03/18 11:19 Wound Center Nurse 2 [Procedure/Treatment] #2 RIGHT NEGRO -Time 11:20 -Correct Patient Yes -Correct Side, Site, Position Yes -Correct Procedure Yes -Procedure Performed Yes -Type of Procedure Debridement -Clinical Debridement Subcutaneous -Post Debridement Size (cm) - Length 0.8 -Post Debridement Size (cm) - Width 0.5 -Post Debridement Size (cm) - Depth 0.1 -Total Square Cm 0.40 -Wound/Ulcer Outcome Not Healed -Ulcer Cleansing Rinsed/ Irrigated with Saline -Foul Odor after Cleansing No -Bioengineered Tissue No -Bleeding Controlled with Pressure -Offloading Yes -Treatment Response Procedure Tolerated Well [See Physician Procedure note for Specifics] Pain Scale: 0-10 Numeric [Pain] -Is Patient Pain Free? Yes Neurological: Cranial nerves II-XII grossly intact, Neuro grossly intact Psych/Mental Status: Normal Affect, Appropriate, Alert and oriented to time, place, person, mood and affect Debridement Note Post-Debridement Measurements/Treatment - Nurse 2 - General Ulcer CM Notes Start: 11/26/18 10:14 Freq: Status: Active Protocol: Activity Type Activity Date Activity User E-Sign Co-Sign Detail Recorded Client Recorded Date Recorded By Document 11/26/18 10:52 DV [id number] 11/26/18 10:55 DV Document 12/03/18 11:19 DV [id number] 12/03/18 11:26 DV 11/26/18 12/03/18 10:52 11:19 Wound Center Nurse 2 #2 RIGHT NEGRO -Time 10:53 11:20 -Correct Patient Yes Yes -Correct Side, Site, Position Yes Yes -Correct Procedure Yes Yes -Procedure Performed Yes Yes -Type of Procedure Debridement Debridement -Clinical Debridement Subcutaneous Subcutaneous -Post Debridement Size (cm) - Length 1.0 0.8 -Post Debridement Size (cm) - Width 1.5 0.5 -Post Debridement Size (cm) - Depth 0.1 0.1 -Total Square Cm 1.50 0.40 -Wound/Ulcer Outcome Not Healed Not Healed -Ulcer Cleansing Rinsed/ Rinsed/ Irrigated with Irrigated with Saline Saline -Foul Odor after Cleansing No No -Bioengineered Tissue No No -Bleeding Controlled with Pressure Pressure -Offloading No Yes -Treatment Response Procedure Procedure Tolerated Well Tolerated Well Pain Scale: 0-10 Numeric Is Patient Pain Free? Yes Yes Laterality: Right - Anterior tibial surface Type of Debridement: Excisional debridement Anesthesia Used: 5% Lidocaine Gel Depth: Down to and including healthy tissue, in the subcutaneous layer Percentage of wound debrided: 100 Instrument Used: 5mm curette Severity: Fat Layer Exposed Amount of bleeding with debridement: Mild Bleeding Controlled with: Compression and gauze Patient tolerated procedure well Assessment/Plan Active Problems (Last Reviewed 07/17/18 @ 08:58 by Jethro Dozier MD) Lymphedema (Chronic) Chronic venous insufficiency (Chronic) Dependent edema (Chronic) Debility (Chronic) Leg swelling (Chronic) Venous stasis ulcer (Chronic) Obesity, morbid, BMI 40.0-49.9 (Chronic) Assessment: This is a 73-year-old male with multiple problems, as documented above. He presents with swelling and edema in his lower extremities, which are chronic in nature. He has recently developed an ulceration on the right anterior tibial surface, thought to be secondary to dependent edema. The patient's lifestyle, dictated by his musculoskeletal and orthopedic problems, appears to be responsible for his lower extremity presenting symptoms and manifestations. His lower extremities are in a dependent position throughout the day. It appears as though he engages in elevation of his lower extremities only minimally. Furthermore, due to his orthopedic problems, he does not ambulate significantly, and does not therefore implement the calf and foot muscle pumps to his advantage. The result has been chronic swelling and edema in his lower extremities, with intermittent episodes of ulcerations. It appears as though he has made significant progress within the last week. Plan: Conservative treatment measures are to be continued. A lengthy discussion has been undertaken with the patient and the patient's , who is at the bedside. Leg elevation has been encouraged, with elevation of his legs to heart level, or higher. This is to be accomplished as much as possible. He has been encouraged to sleep in a recumbent position, or at least in a recliner with his legs level with his heart, or higher. Even during daytime hours, the patient has been encouraged to elevate his lower extremities as much as possible. Ambulation has been encouraged, but acknowledgment is made to the fact that the patient is limited due to his musculoskeletal problems. The patient and his have been encouraged to use his mechanical pneumatic compression pumps at least twice or 3 times daily. Compression is to be implemented by means of an Unna boot, which will be applied today, and will be changed twice weekly. The patient has been encouraged to lose weight. The patient will return in 1 week for reassessment. The patient has undergone an arterial study in May 2018 which showed no evidence of significant arterial insufficiency. The patient's venous study at that time also failed to reveal significant superficial venous insufficiency. Influenza vaccine was not administered today. The patient is non-smoker. Patient weighs 265 pounds. He stands 5 feet 8 inches tall. His BMI is 40.3, which places him in a class III obesity category. Weight loss has been recommended, in collaboration with his primary care physician has been advised.
[2018-12-10 10:52] VITALS: BP 165/82; PULSE 59; RESP 18; TEMP 36.4; BMI 40.3
--- NOTE | 2018-12-10 11:59 | HP.PCM_ITS ---
(1) Chronic venous insufficiency Status: Chronic Current Visit: Yes Code(s): I87.2 - Venous insufficiency (chronic) (peripheral) (2) Dependent edema Status: Chronic Current Visit: Yes Code(s): R60.9 - Edema, unspecified (3) Debility Status: Chronic Current Visit: Yes Code(s): R53.81 - Other malaise (4) Leg swelling Status: Chronic Current Visit: Yes Code(s): M79.89 - Other specified soft tissue disorders (5) EH (obstructive sleep apnea) Status: Chronic Current Visit: No Code(s): G47.33 - Obstructive sleep apnea (adult) (pediatric) (6) Tricuspid valve insufficiency Status: Chronic Current Visit: No Code(s): I07.1 - Rheumatic tricuspid insufficiency (7) Venous stasis ulcer Status: Chronic Current Visit: Yes Qualifiers: Venous stasis ulcer site: calf Laterality: right Code(s): I83.009 - Varicose veins of unspecified lower extremity with ulcer of unspecified site; L97.909 - Non-pressure chronic ulcer of unspecified part of unspecified lower leg with unspecified severity (8) Obesity, morbid, BMI 40.0-49.9 Status: Chronic Current Visit: Yes Code(s): E66.01 - Morbid (severe) obesity due to excess calories (9) Chronic diastolic heart failure Status: Chronic Current Visit: No Code(s): I50.32 - Chronic diastolic (congestive) heart failure (10) Lymphedema Status: Chronic Current Visit: Yes Code(s): I89.0 - Lymphedema, not elsewhere classified (11) Diabetes mellitus Status: Chronic Current Visit: No Qualifiers: Diabetes mellitus type: type 2 Code(s): E11.9 - Type 2 diabetes mellitus without complications (12) GERD (gastroesophageal reflux disease) Status: Chronic Current Visit: No Code(s): K21.9 - Gastro-esophageal reflux disease without esophagitis (13) Hypothyroidism Status: Chronic Current Visit: No Code(s): E03.9 - Hypothyroidism, unspecified (14) Lumbar spinal stenosis Status: Chronic Current Visit: No Code(s): M48.061 - Spinal stenosis, lumbar region without neurogenic claudication (15) Osteoarthritis of knees, bilateral Status: Chronic Current Visit: No Code(s): M17.0 - Bilateral primary osteoarthritis of knee (16) Gout Status: Chronic Current Visit: No Code(s): M10.9 - Gout, unspecified (17) Low back pain Status: Chronic Current Visit: No Code(s): M54.5 - Low back pain (18) Non-rheumatic tricuspid valve insufficiency Status: Chronic Current Visit: No Code(s): I36.1 - Nonrheumatic tricuspid (valve) insufficiency (19) Chronic diastolic (congestive) heart failure Status: Chronic Current Visit: No Code(s): I50.32 - Chronic diastolic (congestive) heart failure (20) Hyperlipidemia Status: Chronic Current Visit: No Qualifiers: Code(s): E78.5 - Hyperlipidemia, unspecified (21) Hypertension Status: Chronic Current Visit: No Qualifiers: Code(s): I10 - Essential (primary) hypertension History of Present Illness Chief Complaint: Right lower extremity ulceration, associated with chronic bilateral lower extremity swelling and edema. History of Wound: This is a 73-year-old male with multiple medical problems. He leads a very sedentary lifestyle, and is very limited in his ambulation. He relies on a wheelchair for mobility. He suffers from severe degenerative disease of knees and hips. He also has severe back problems, having previously undergone 4 back surgeries in the past due to spinal stenosis. He does not sleep in a recumbent position. Rather, he sleeps in a lift chair, typically with his legs in a dependent position. He has been treated for venous ulcera tions in his lower extremities in the past, and has CircAid Velcro compression garments and mechanical pneumatic compression pumps, with which she has been somewhat lax and noncompliant recently. His current ulceration, located on the right anterior tibial surface, was noted to have its origin on , only about 1 week ago. According to the patient, and his , the power went out at his home, and he spent a good part of the day and an idle sitting position. He developed a blister on the right anterior tibial surface, which subsequently unroofed, leaving in its place a superficial ulceration. He presents at this time for management recommendations regarding the ulceration on the right lower extremity. The patient suffers from chronic swelling and edema in his lower extremities bilaterally. He has a past medical history which is significant for that of hypertension hyperlipidemia, GERD, type 2 diabetes mellitus, CHF, and hypothyroidism. The patient's ability to elevate his lower extremities is somewhat limited by his chronic low back pain, spinal stenosis, and degenerative joint problems. His degenerative joint disease also plays a major role in his limited ability to ambulate. He denies a history of thrombophlebitis in the past. Past Medical History Past Medical History: Chronic Problems (Last Reviewed 07/17/18 @ 08:58 by Jethro Dozier MD) Chronic diastolic heart failure (Chronic) Lymphedema (Chronic) Diabetes mellitus (Chronic) GERD (gastroesophageal reflux disease) (Chronic) Hypothyroidism (Chronic) Lumbar spinal stenosis (Chronic) Osteoarthritis of knees, bilateral (Chronic) Depression (Chronic) Gout (Chronic) Neuropathic pain (Chronic) Low back pain (Chronic) Chronic venous insufficiency (Chronic) Dependent edema (Chronic) Debility (Chronic) Leg swelling (Chronic) EH (obstructive sleep apnea) (Chronic) Tricuspid valve insufficiency (Chronic) Venous stasis ulcer (Chronic) Obesity, morbid, BMI 40.0-49.9 (Chronic) Abnormal electrocardiogram (Chronic) Non-rheumatic tricuspid valve insufficiency (Chronic) Chronic diastolic (congestive) heart failure (Chronic) Hyperlipidemia (Chronic) Hypertension (Chronic) Chronic acquired lymphedema (Chronic) Surgical History: cholecystectomy, total hip arthroplasty - Right, total knee arthroplasty - Right., - - Left shoulder surgery with rotator cuff repair; back surgery x 4; left cochlear implant. Allergies/Adverse Reactions: Allergies cocaine Allergy (Verified 09/11/18 13:52) Unknown atorvastatin calcium [From Lipitor] Adverse Reaction (Verified 09/11/18 13:52) Pain in joints haloperidol [From Haldol] Adverse Reaction (Verified 09/11/18 13:52) Other WENT CRAZY morphine Adverse Reaction (Verified 09/11/18 13:52) Other extremely aggitated oxycodone [From OxyIR] Adverse Reaction (Verified 09/11/18 13:52) Pain in joints extremely aggitated prednisone Adverse Reaction (Verified 09/11/18 13:52) ANXIOUS, INSOMNIA STERIODS Adverse Reaction (Uncoded 08/16/18 02:59) Other ANXIETY INSOMNIA Home Medications: Ambulatory Orders Medication Instructions Recorded Paroxetine HCl [Paxil] 40 mg PO DAILY 09/27/16 Potassium Chloride [K-Dur] 20 meq PO BID 09/27/16 Simvastatin [Zocor] 40 mg PO QHS 09/27/16 Sitagliptin Phosphate [Januvia] 100 mg PO DAILY 09/27/16 Torsemide [Demadex] 20 mg PO BID 09/27/16 traZODone [Desyrel] 50 mg PO QHS 09/27/16 Divalproex Sodium [Depakote] 500 mg PO BID 08/14/17 Allopurinol 100 mg PO DAILY 05/17/18 gabapentin 300 mg capsule 300 mg PO BID cap 07/17/18 levothyroxine 100 mcg capsule 112 mcg PO DAILY 07/17/18 Aspirin [Aspirin, Baby] 81 mg PO DAILY@0800 08/16/18 Diclofenac Sodium 25 mg PO BID 08/16/18 Acetaminophen [Tylenol] 1,000 mg PO Q6H PRN tablet 09/09/18 Empagliflozin [Jardiance] 25 mg PO DAILY #30 tablet 09/09/18 Insulin Glargine [Lantus SoloStar 75 units SC QHS pen 09/09/18 Pen] Losartan Potassium 100 mg PO BID #60 tablet 09/09/18 Metoprolol(XL)Succ [Toprol Xl 12.5 mg PO BID #30 tablet 09/09/18 (Beta Romel)] Nystatin Powder [Mycostatin Powder] 1 applic TOPICAL 0600,2200 bottle 09/09/18 Polyethylene Glycol 3350 [Miralax] 17 gm PO DAILY packet 09/09/18 Albuterol IH (ProAir) [Proair Hfa 1 - 2 puff INHALATION Q6H PRN PRN 12/03/18 (SP)Vent Pts] Azithromycin [Zithromax] 250 mg PO DAILY 12/03/18 Cefdinir 300 mg PO 12/03/18 Codeine Phosphate/Guaifenesin 100 ml PRN 12/03/18 [Codeine-Guaifen 10-100 mg/5 ml] - Family History Maternal Family History: Family History (Last Reviewed 07/17/18 @ 08:58 by Jethro Dozier MD) Mother Hypertension Father Hypertension Dementia, Hypertension Paternal Family History: Family History (Last Reviewed 07/17/18 @ 08:58 by Jethro Dozier MD) Mother Hypertension Father Hypertension Heart Disease - decased age 73, Hypertension Lives: Spouse/ Significant Other Smoking Status: Never smoker Tobacco Use: Non-smoker Alcohol: None Drugs: None Review of Systems Constitutional: Denies: Chills, Fever, Weight Change Eyes: Denies: Pain, Vision Change HEENT: Denies: Difficulty Hearing, Difficulty Swallowing, Sinus Congestion Cardiovascular: Denies: Chest Pain, Palpitations Respiratory: Denies: Cough, Shortness of Breath Gastrointestinal: Denies: Diarrhea, Nausea, Vomiting Genitourinary: Denies: Dysuria, Hematuria Endocrine: Denies: Heat/ Cold Intolerance, Polydipsia, Polyuria Hematologic/ Lymphatic: Denies: Easy Bruising, Easy Bleeding - Physical Exam Vital Signs Temp Pulse Resp BP 97.5 F L 59 L 18 165/82 H 12/10/18 10:52 12/10/18 10:52 12/10/18 10:52 12/10/18 10:52 General: Alert, Oriented x3, Cooperative, No apparent distress, Well developed, Well nourished HEENT: Atraumatic, PERRLA, EOMI, Normocephalic Oral: Moist Mucosa Neck: No JVD Lungs: Normal air movement Abdomen: Non-Distended, Obese Extremities: No clubbing, No cyanosis, No Calf Tenderness, Edema, - - There is swelling and edema on the dorsum of the patient's right foot. This appears to be due to removal of the patient's Unna boot last evening, which was approved in order to allow the patient to shower. Otherwise, the ulceration on the right anterior tibial surface is now completely healed. The skin in the area of the ulceration is soft,supple, and intact. Skin: No rashes Wound Measurements and Assessment WC - Nurse 1 - General Ulcer Measurement Start: 11/26/18 10:14 Freq: Status: Active Protocol: Activity Type Activity Date Activity User E-Sign Co-Sign Detail Recorded Client Recorded Date Recorded By Document 12/10/18 10:52 MW [id number] 12/10/18 10:55 MW 12/10/18 10:52 Wound Center Nurse 1 [Ulcer Assessment] #2 RIGHT NEGRO -Combined with other wound No -Current Size (cm) - Length 0.1 -Current Size (cm) - Width 0.1 -Current Size (cm) - Depth 0.1 -Total Square Cm 0.01 -Photo Taken No -Epithelialization Large 67-100% -Tunneling No -Undermining/Tunneling No -Circular Undermining No -Exudate Amt None Present -Wound Margin Flat & Intact -Granulation Amt None Present (0 %) -Granulation Quality N/A -Slough/Fibrin No -Structure Exposed N/A -Texture (Bria-wound Skin Appearance) Assessed Localized Edema Scarring -Moisture (Bria-wound Skin Appearance No Abnormality ) Assessed -Color (Bria-wound Skin Appearance) Assessed Hemosiderin Staining -Temperature (Bria-wound Skin No Abnormality Appearance) (Pt Warm) -Tenderness on Palpation (Bria-wound No Skin Appearance) -Ulcer Cleansing Rinsed/ Irrigated with Saline -Foul Odor after Cleansing No -Anesthetic Used 4% Lidocaine Solution [Edema Assessment] -Lower Limb Edema Present Yes -Right Calf (cm) 41.0 -Right Ankle (cm) 24.4 -Left Calf (cm) 40.0 -Left Ankle (cm) 23.7 WC - Nurse 2 - General Ulcer CM Notes Start: 11/26/18 10:14 Freq: Status: Active Protocol: Activity Type Activity Date Activity User E-Sign Co-Sign Detail Recorded Client Recorded Date Recorded By Document 12/10/18 11:48 DV [id number] 12/10/18 11:49 DV 12/10/18 11:48 Wound Center Nurse 2 [Procedure/Treatment] #2 RIGHT NEGRO -Time 11:48 -Correct Patient Yes -Correct Side, Site, Position Yes -Procedure Performed No -Post Debridement Size (cm) - Length 0 -Post Debridement Size (cm) - Width 0 -Post Debridement Size (cm) - Depth 0 -Total Square Cm 0 -Wound/Ulcer Outcome Healed- Epithelialized [See Physician Procedure note for Specifics] Pain Scale: 0-10 Numeric [Pain] -Is Patient Pain Free? Yes Neurological: Cranial nerves II-XII grossly intact, Neuro grossly intact Psych/Mental Status: Normal Affect, Appropriate, Alert and oriented to time, place, person, mood and affect Debridement Note Post-Debridement Measurements/Treatment - Nurse 2 - General Ulcer CM Notes Start: 11/26/18 10:14 Freq: Status: Active Protocol: Activity Type Activity Date Activity User E-Sign Co-Sign Detail Recorded Client Recorded Date Recorded By Document 11/26/18 10:52 DV [id number] 11/26/18 10:55 DV Document 12/03/18 11:19 DV [id number] 12/03/18 11:26 DV Document 12/10/18 11:48 DV [id number] 12/10/18 11:49 DV 11/26/18 12/03/18 12/10/18 10:52 11:19 11:48 Wound Center Nurse 2 #2 RIGHT NEGRO -Time 10:53 11:20 11:48 -Correct Patient Yes Yes Yes -Correct Side, Site, Position Yes Yes Yes -Correct Procedure Yes Yes -Procedure Performed Yes Yes No -Type of Procedure Debridement Debridement -Clinical Debridement Subcutaneous Subcutaneous -Post Debridement Size (cm) - Length 1.0 0.8 0 -Post Debridement Size (cm) - Width 1.5 0.5 0 -Post Debridement Size (cm) - Depth 0.1 0.1 0 -Total Square Cm 1.50 0.40 0 -Wound/Ulcer Outcome Not Healed Not Healed Healed- Epithelialized -Ulcer Cleansing Rinsed/ Rinsed/ Irrigated with Irrigated with Saline Saline -Foul Odor after Cleansing No No -Bioengineered Tissue No No -Bleeding Controlled with Pressure Pressure -Offloading No Yes -Treatment Response Procedure Procedure Tolerated Well Tolerated Well Pain Scale: 0-10 Numeric Is Patient Pain Free? Yes Yes Yes No debridement was completed today Assessment/Plan Active Problems (Last Reviewed 07/17/18 @ 08:58 by Jethro Dozier MD) Lymphedema (Chronic) Chronic venous insufficiency (Chronic) Dependent edema (Chronic) Debility (Chronic) Leg swelling (Chronic) Venous stasis ulcer (Chronic) Obesity, morbid, BMI 40.0-49.9 (Chronic) Assessment: This is a 73-year-old male with multiple problems, as documented above. He presents with swelling and edema in his lower extremities, which are chronic in nature. He has recently developed an ulceration on the right anterior tibial surface, thought to be secondary to dependent edema. The patient's lifestyle, dictated by his musculoskeletal and orthopedic problems, appears to be responsible for his lower extremity presenting symptoms and manifestations. His lower extremities are in a dependent position throughout the day. It appears as though he engages in elevation of his lower extremities only minimally. Furthermore, due to his orthopedic problems, he does not ambulate significantly, and does not therefore implement the calf and foot muscle pumps to his advantage. The result has been chronic swelling and edema in his lower extremities, with intermittent episodes of ulcerations. At this time, the ulceration of the right anterior tibial surface is completely healed and epithelialized. Plan: Conservative treatment measures are to be continued. A lengthy discussion has been undertaken with the patient and the patient's , who is at the bedside. Leg elevation has been encouraged, with elevation of his legs to heart level, or higher. This is to be accomplished as much as possible. He has been encouraged to sleep in a recumbent position, or at least in a recliner with his legs level with his heart, or higher. Even during daytime hours, the patient has been encouraged to elevate his lower extremities as much as possible. Ambulation has been encouraged, but acknowledgment is made to the fact that the patient is limited due to his musculoskeletal problems. The patient and his w lin have been encouraged to use his mechanical pneumatic compression pumps at least twice or 3 times daily. According to the patient's , he has not been generally compliant with recommended measures, which has been a long-term problem. Compression is to be continued by means of an Unna boot, which will be applied today, and will be changed twice weekly. The patient has been encouraged to lose weight. The patient will return in 1 week for reassessment. There have been issues in obtaining the patient the proper CircAid compression devices, and effort will be made to troubleshoot this problem within the next several days. The patient is to return in 1 week, with expectation that he can then be discharged from further follow-up. The patient has undergone an arterial study in May 2018 which showed no evidence of significant arterial insufficiency. The patient's venous study at that time also failed to reveal significant superficial venous insufficiency. Influenza vaccine was not administered today. The patient is non-smoker. Patient weighs 265 pounds. He stands 5 feet 8 inches tall. His BMI is 40.3, which places him in a class III obesity category. Weight loss has been recommended, in collaboration with his primary care physician has been advised.
== END 2018-12-19 23:59 ==
LOC: WC 10:30
PROVIDERS: Family Provider Family Medicine Geriatric Medicine; PCP Family Medicine Geriatric Medicine; Visit Provider Surgery
DX: E11.622 Type 2 diabetes mellitus with other skin ulcer (principal); I87.2 Venous insufficiency (chronic) (peripheral); R60.0 Localized edema; L97.812 Non-pressure chronic ulcer of other part of right lower leg with fat layer exposed; M79.89 Other specified soft tissue disorders; G47.33 Obstructive sleep apnea (adult) (pediatric); E66.01 Morbid (severe) obesity due to excess calories; Z68.41 Body mass index [BMI] 40.0-44.9, adult; Z71.3 Dietary counseling and surveillance; I50.32 Chronic diastolic (congestive) heart failure; I89.0 Lymphedema, not elsewhere classified; E03.9 Hypothyroidism, unspecified; K21.9 Gastro-esophageal reflux disease without esophagitis; E78.5 Hyperlipidemia, unspecified; I11.0 Hypertensive heart disease with heart failure; M10.9 Gout, unspecified; Z79.899 Other long term (current) drug therapy
CPT/HCPCS: 11042; 29580; 99212; 99213; G0463

== ENCOUNTER 2018-12-31 09:37 | Outpatient (RCR) | payer SELFPAY ==
[2018-12-20 01:42] VITALS: BP 165/82; PULSE 59; RESP 18; TEMP 36.4
[2018-12-31 10:33] VITALS: BP 186/94; PULSE 68; RESP 18; TEMP 37; BMI 40.3
--- NOTE | 2018-12-31 11:04 | HP.PCM_ITS ---
(1) Acute delirium Status: Inactive Current Visit: No Code(s): R41.0 - Disorientation, unspecif ied (2) Weakness Status: Chronic Current Visit: Yes Code(s): R53.1 - Weakness (3) Urinary tract infection Status: Inactive Current Visit: No Code(s): N39.0 - Urinary tract infection, site not specified (4) Chronic diastolic heart failure Status: Chronic Current Visit: No Code(s): I50.32 - Chronic diastolic (con gestive) heart failure (5) Lymphedema Status: Chronic Current Visit: Yes Code(s): I89.0 - Lymphedema, not elsewhere classified (6) Diabetes mellitus Status: Chronic Current Visit: Yes Qualifiers: Diabetes mellitus type: type 2 Code(s): E11.9 - Type 2 diabetes mellitus without complications (7) GERD (gastroesophageal reflux disease) Status: Chronic Current Visit: No Code(s): K21.9 - Gastro-esophageal reflux disease without esophagitis (8) Hypothyroidism Status: Chronic Current Visit: No Code(s): E03.9 - Hypothyroidism, unspecified (9) Lumbar spinal stenosis Status: Chronic Current Visit: No Code(s): M48.061 - Spinal stenosis, lumbar region without neurogenic claudication (10) Osteoarthritis of knees, bilateral Status: Chronic Current Visit: No Code(s): M17.0 - Bilateral primary osteo arthritis of knee (11) Depression Status: Chronic Current Visit: No Code(s): F32.9 - Major depressive di sorder, single episode, unspecified (12) Gout Status: Chronic Current Visit: No Code(s): M10.9 - Gout, unspecified (13) Neuropathic pain Status: Chronic Current Visit: No Code(s): M79.2 - Neuralgia and neuritis, unspecified (14) Low back pain Status: Chronic Current Visit: No Code(s): M54.5 - Low back pain (15) Chronic venous insufficiency Status: Chronic Current Visit: Yes Code(s): I87.2 - Venous insufficiency ( chronic) (peripheral) (16) Dependent edema Status: Chronic Current Visit: Yes Code(s): R60.9 - Edema, unspecified (17) Debility Status: Chronic Current Visit: Yes Code(s): R53.81 - Other malaise (18) Leg swelling Status: Chronic Current Visit: Yes Code(s): M79.89 - Other specified soft tissue disorders (19) EH (obstructive sleep apnea) Status: Chronic Current Visit: No Code(s): G47.33 - Obstructive sleep apnea (adult) (pediatric) (20) Tricuspid valve insufficiency Status: Chronic Current Visit: No Code(s): I07.1 - Rheumatic tricuspid insufficiency (21) Venous stasis ulcer Status: Chronic Current Visit: Yes Qualifiers: Venous stasis ulcer site: calf Code(s): I83.009 - Varicose veins of unspecified lower extremity with ulcer of unspecified site; L97.909 - Non-pressure chronic ulcer of unspecified part of unspecified lower leg with unspecified severity (22) Obesity, morbid, BMI 40.0-49.9 Status: Chronic Current Visit: Yes Code(s): E66.01 - Morbid (severe) obesity due to excess calories (23) Abnormal electrocardiogram Status: Acute Current Visit: No Code(s): R94.31 - Abnormal electrocardiogram [ECG] [EKG] (24) Non-rheumatic tricuspid valve insufficiency Status: Chronic Current Visit: No Code(s): I36.1 - Nonrheumatic tricuspid (valve) insufficiency (25) Chronic diastolic (congestive) heart failure Status: Chronic Current Visit: No Code(s): I50.32 - Chronic diastolic (congestive) heart failure (26) Hyperlipidemia Status: Chronic Current Visit: No Qualifiers: Code(s): E78.5 - Hyperlipidemia, unspecified (27) Hypertension Status: Chronic Current Visit: No Qualifiers: Code(s): I10 - Essential (primary) hypertension (28) Skin tear of right lower leg without complication Status: Acute Current Visit: Yes Code(s): S81.811A - Laceration without foreign body, right lower leg, initial encounter (29) Chronic acquired lymphedema Status: Chronic Current Visit: Yes Code(s): I89.0 - Lymphedema, not elsewhere classified (30) Cellulitis Status: Resolved Current Visit: No Code(s): L03.90 - Cellulitis, unspecified (31) Fissure in skin of foot Status: Inactive Current Visit: No Code(s): R23.4 - Changes in skin texture History of Present Illness Chief Complaint: Right lower extremity ulceration, associated with chronic bilateral lower extremity swelling and edema. History of Wound: This is a 73-year-old male with multiple medical problems. He leads a very sedentary lifestyle, and is very limited in his ambulation. He relies on a wheelchair for mobility. He suffers from severe degenerative disease of knees and hips. He also has severe back problems, having previously undergone 4 back surgeries in the past due to spinal stenosis. He does not sleep in a recumbent position. Rather, he sleeps in a lift chair, typically with his legs in a dependent position. He has been treated for venous ulcerations in his lower extremities in the past, and has CircAid Velcro compression garments and mechanical pneumatic compression pumps, with which she has been somewhat lax and noncompliant recently. His current ulceration, located on the right anterior tibial surface, was noted to have its origin on . According to the patient, and his , the power went out at his home, and he spent a good part of the day in an idle sitting position. He developed a blister on the right anterior tibial surface, which subsequently un roofed, leaving in its place a superficial ulceration. He presented for management recommendations regarding the ulceration on the right lower extremity. The patient suffers from chronic swelling and edema in his lower extremities bilaterally. He has a past medical history which is significant for that of hypertension hyperlipidemia, GERD, type 2 diabetes mellitus, CHF, and hypothyroidism. The patient's ability to elevate his lower extremities is somewhat limited by his chronic low back pain, spinal stenosis, and degenerative joint problems. His degenerative joint disease also plays a major role in his limited ability to ambulate. He denies a history of thrombophlebitis in the past. Past Medical History Past Medical History: Chronic Problems (Last Reviewed 07/17/18 @ 08:58 by Jethro Dozier MD) Weakness (Chronic) Chronic diastolic heart failure (Chronic) Lymphedema (Chronic) Diabetes mellitus (Chronic) GERD (gastroesophageal reflux disease) (Chronic) Hypothyroidism (Chronic) Lumbar spinal stenosis (Chronic) Osteoarthritis of knees, bilateral (Chronic) Depression (Chronic) Gout (Chronic) Neuropathic pain (Chronic) Low back pain (Chronic) Chronic venous insufficiency (Chronic) Dependent edema (Chronic) Debility (Chronic) Leg swelling (Chronic) EH (obstructive sleep apnea) (Chronic) Tricuspid valve insufficiency (Chronic) Venous stasis ulcer (Chronic) Obesity, morbid, BMI 40.0-49.9 (Chronic) Abnormal electrocardiogram (Chronic) Non-rheumatic tricuspid valve insufficiency (Chronic) Chronic diastolic (congestive) heart failure (Chronic) Hyperlipidemia (Chronic) Hypertension (Chronic) Chronic acquired lymphedema (Chronic) Surgical History: cholecystectomy, total hip arthroplasty - Right, total knee arthroplasty - Right., - - Left shoulder surgery with rotator cuff repair; back surgery x 4; left cochlear implant. Allergies/Adverse Reactions: Allergies cocaine Allergy (Verified 09/11/18 13:52) Unknown atorvastatin calcium [From Lipitor] Adverse Reaction (Verified 09/11/18 13:52) Pain in joints haloperidol [From Haldol] Adverse Reaction (Verified 09/11/18 13:52) Other WENT CRAZY morphine Adverse Reaction (Verified 09/11/18 13:52) Other extremely aggitated oxycodone [From OxyIR] Adverse Reaction (Verified 09/11/18 13:52) Pain in joints extremely aggitated prednisone Adverse Reaction (Verified 09/11/18 13:52) ANXIOUS, INSOMNIA STERIODS Adverse Reaction (Uncoded 08/16/18 02:59) Other ANXIETY INSOMNIA Home Medications: Ambulatory Orders Medication Instructions Recorded Paroxetine HCl [Paxil] 40 mg PO DAILY 09/27/16 Potassium Chloride [K-Dur] 20 meq PO BID 09/27/16 Simvastatin [Zocor] 40 mg PO QHS 09/27/16 Sitagliptin Phosphate [Januvia] 100 mg PO DAILY 09/27/16 Torsemide [Demadex] 20 mg PO BID 09/27/16 traZODone [Desyrel] 50 mg PO QHS 09/27/16 Divalproex Sodium [Depakote] 500 mg PO BID 08/14/17 Allopurinol 100 mg PO DAILY 05/17/18 gabapentin 300 mg capsule 300 mg PO BID cap 07/17/18 levothyroxine 100 mcg capsule 112 mcg PO DAILY 07/17/18 Aspirin [Aspirin, Baby] 81 mg PO DAILY@0800 08/16/18 Diclofenac Sodium 25 mg PO BID 08/16/18 Acetaminophen [Tylenol] 1,000 mg PO Q6H PRN tablet 09/09/18 Empagliflozin [Jardiance] 25 mg PO DAILY #30 tablet 09/09/18 Insulin Glargine [Lantus SoloStar 75 units SC QHS pen 09/09/18 Pen] Losartan Potassium 100 mg PO BID #60 tablet 09/09/18 Metoprolol(XL)Succ [Toprol Xl 12.5 mg PO BID #30 tablet 09/09/18 (Beta Romel)] Nystatin Powder [Mycostatin Powder] 1 applic TOPICAL 0600,2200 bottle 09/09/18 Polyethylene Glycol 3350 [Miralax] 17 gm PO DAILY packet 09/09/18 Albuterol IH (ProAir) [Proair Hfa 1 - 2 puff INHALATION Q6H PRN PRN 12/03/18 (SP)Vent Pts] Azithromycin [Zithromax] 250 mg PO DAILY 12/03/18 Cefdinir 300 mg PO 12/03/18 Codeine Phosphate/Guaifenesin 100 ml PRN 12/03/18 [Codeine-Guaifen 10-100 mg/5 ml] - Family History Maternal Family History: Family History (Last Reviewed 07/17/18 @ 08:58 by Jethro Dozier MD) Mother Hypertension Father Hypertension Dementia, Hypertension Paternal Family History: Family History (Last Reviewed 07/17/18 @ 08:58 by Jethro Dozier MD) Mother Hypertension Father Hypertension Heart Disease - decased age 73, Hypertension Smoking Status: Never smoker Tobacco Use: Non-smoker Review of Systems Constitutional: Denies: Chills, Fever, Weight Change Eyes: Denies: Pain, Vision Change HEENT: Denies: Difficulty Hearing, Difficulty Swallowing, Sinus Congestion Cardiovascular: Denies: Chest Pain, Palpitations Respiratory: Denies: Cough, Shortness of Breath Gastrointestinal: Denies: Diarrhea, Nausea, Vomiting Genitourinary: Denies: Dysuria, Hematuria Endocrine: Denies: Heat/ Cold Intolerance, Polydipsia, Polyuria Hematologic/ Lymphatic: Denies: Easy Bruising, Easy Bleeding - Physical Exam Vital Signs Temp Pulse Resp BP 98.6 F 68 18 186/94 H 12/31/18 10:33 12/31/18 10:33 12/31/18 10:33 12/31/18 10:33 General: Alert, Oriented x3, Cooperative, No apparent distress, Well developed, Well nourished, - - Patient is obese. HEENT: Atraumatic, PERRLA, EOMI, Normocephalic Oral: Moist Mucosa Neck: No JVD Lungs: Normal air movement Abdomen: Non-Distended, Obese Extremities: No clubbing, No cyanosis, No Calf Tenderness, - - Only mild swelling and edema is noted in the lower extremities. The right lower extremity reveals no open wounds or ulcerations. It is now completely healed and epithelialized. There is no evidence of cellulitis at this time. Skin: No rashes Wound Measurements and Assessment WC - Nurse 1 - General Ulcer Measurement Start: 12/31/18 10:33 Freq: Status: Active Protocol: Activity Type Activity Date Activity User E-Sign Co-Sign Detail Recorded Client Recorded Date Recorded By Document 12/31/18 10:33 [facility] [id number] 12/31/18 10:37 [facility] 12/31/18 10:33 Wound Center Nurse 1 [Edema Assessment] -Lower Limb Edema Present Yes -Right Calf (cm) 38.5 -Right Ankle (cm) 25.6 WC - Nurse 2 - General Ulcer CM Notes Start: 12/31/18 10:33 Freq: Status: Active Protocol: Activity Type Activity Date Activity User E-Sign Co-Sign Detail Recorded Client Recorded Date Recorded By Document 12/31/18 10:53 MW [id number] 12/31/18 10:55 MW 12/31/18 10:53 Pain Scale: 0-10 Numeric [Pain] -Is Patient Pain Free? Yes Neurological: Cranial nerves II-XII grossly intact, Neuro grossly intact Psych/Mental Status: Normal Affect, Appropriate, Alert and oriented to time, place, person, mood and affect Debridement Note Post-Debridement Measurements/Treatment WC - Nurse 2 - General Ulcer CM Notes Start: 12/31/18 10:33 Freq: Status: Active Protocol: Activity Type Activity Date Activity User E-Sign Co-Sign Detail Recorded Client Recorded Date Recorded By Document 12/31/18 10:53 MW [id number] 12/31/18 10:55 MW 12/31/18 10:53 Pain Scale: 0-10 Numeric Is Patient Pain Free? Yes No debridement was completed today Assessment/Plan Active Problems (Last Reviewed 07/17/18 @ 08:58 by Jethro Dozier MD) Weakness (Chronic) Lymphedema (Chronic) Diabetes mellitus (Chronic) Chronic venous insufficiency (Chronic) Dependent edema (Chronic) Debility (Chronic) Leg swelling (Chronic) Venous stasis ulcer (Chronic) Obesity, morbid, BMI 40.0-49.9 (Chronic) Skin tear of right lower leg without complication (Acute) Chronic acquired lymphedema (Chronic) Assessment: This is a 73-year-old male with multiple problems, as documented above. He presented with swelling and edema in his lower extremities, which were chronic in nature. He had recently developed an ulceration on the right anterior tibial surface, thought to be secondary to dependent edema. The patient's lifestyle, dictated by his musculoskeletal and orthopedic problems, appears to be responsible for his lower extremity presenting symptoms and manifestations. His lower extremities are in a dependent position throughout the day. It appears as though he engages in elevation of his lower extremities only minimally. Furthermore, due to his orthopedic problems, he does not ambulate significantly, and does not therefore implement the calf and foot muscle pumps to his advantage. The result has been chronic swelling and edema in his lower extremities, with intermittent episodes of ulcerations. At this time, the ulceration of the right anterior tibial surface is completely healed and epithelialized. Plan: Conservative treatment measures are to be continued. A lengthy discussion has been undertaken with the patient and the patient's , who is at the bedside. Leg elevation has been encouraged, with elevation of his legs to heart level, or higher. This is to be accomplished as much as possible. He has been encouraged to sleep in a recumbent position, or at least in a recliner with his legs level with his heart, or higher. Even during daytime hours, the patient has been encouraged to elevate his lower extremities as much as possible. Ambulation has been encouraged, but acknowledgment is made to the fact that the patient is limited due to his musculoskeletal problems. The patient and his have been encouraged to use his mechanical pneumatic compression pumps at least twice or 3 times daily. According to the patient's , he has not been generally compliant with recommended measures, which has been a long-term problem. Compression is to be continued, and the patient has been provided a prescription for graduated compression stockings, knee-high length, of 20-30 mmHg compression. This may be with or without a zipper. A prescription has also been provided for a compression stocking donning device, which will facilitate his ability to don his stockings on a daily basis. The patient has been encouraged to lose weight. The patient will be discharged at this time, with follow-up henceforth on an as-needed basis. Influenza vaccine was not administered today. The patient is non-smoker. Patient weighs 265 pounds. He stands 5 feet 8 inches tall. His BMI is 40.3, which places him in a class III obesity category. Weight loss has been recommended, in collaboration with his primary care physician has been advised.
== END 2019-01-16 23:59 ==
LOC: WC 09:37
PROVIDERS: Family Provider Family Medicine Geriatric Medicine; PCP Family Medicine Geriatric Medicine; Visit Provider Surgery
DX: Z09 Encounter for follow-up examination after completed treatment for conditions other than malignant neoplasm (principal); I89.0 Lymphedema, not elsewhere classified; E11.9 Type 2 diabetes mellitus without complications; R60.0 Localized edema; E11.51 Type 2 diabetes mellitus with diabetic peripheral angiopathy without gangrene; E66.01 Morbid (severe) obesity due to excess calories; Z68.41 Body mass index [BMI] 40.0-44.9, adult; Z71.3 Dietary counseling and surveillance; G47.33 Obstructive sleep apnea (adult) (pediatric); M48.061 Spinal stenosis, lumbar region without neurogenic claudication; F32.9 Major depressive disorder, single episode, unspecified; E03.9 Hypothyroidism, unspecified; K21.9 Gastro-esophageal reflux disease without esophagitis; I50.32 Chronic diastolic (congestive) heart failure; M19.90 Unspecified osteoarthritis, unspecified site; I11.0 Hypertensive heart disease with heart failure; Z79.899 Other long term (current) drug therapy; M10.9 Gout, unspecified; Z79.82 Long term (current) use of aspirin; Z79.84 Long term (current) use of oral hypoglycemic drugs
CPT/HCPCS: 99212; G0463

== ENCOUNTER 2019-01-26 14:43 | Inpatient (IN) | payer MEDICARE, SELFPAY ==
[2019-01-26 14:45] VITALS: BP 126/71; BP 141/72; PULSE 55; PULSE 58; RESP 17; RESP 19; TEMP 36.7; O2SAT 95; O2SAT 97; BMI 41.0
--- NOTE | 2019-01-26 14:56 | RAD_ITS ---
STUDY: X-RAY - RIGHT TIBIA AND FIBULA REASON FOR EXAM: Male, 73 years old. Fall, right knee pain TECHNIQUE: 2 view(s) of the tibia and fibula were obtained. COMPARISON: None. FINDINGS: Hemiarthroplasty of the knee identified. There is a complex, transverse dominant fracture of the proximal tibial metaphysis with longitudinal component likely extending to the tibial plateau. There is mild anterior apical angulation with approximately 8 mm of displacement anteriorly. Transverse fracture of the proximal fibula is also demonstrated with only mild degree of displacement. There is non-specific soft tissue swelling. RAD/Tibia & Fibula 2 Views IMPRESSION: 1. Proximal tibia and fibular fractures. 2. Medial compartment hemiarthroplasty. Electronically Signed: Jose Wisdom MD at 16:22 EDT , Service support ,
[2019-01-26] MEDS: Morphine 4 MG/ML Syringe IV (15:23)
[2019-01-26] MEDS: Ondansetron 4 MG/2 ML Vial IV (15:24)
--- NOTE | 2019-01-26 15:50 | EKG12_ITS ---
Test Reason : Blood Pressure : / mmHG Vent. Rate : 057 BPM Atrial Rate : 057 BPM P-R Int : 192 ms QRS Dur : 098 ms QT Int : 436 ms P-R-T Axes : 025 -49 033 degrees QTc Int : 424 ms Sinus bradycardia Left axis deviation Minimal voltage criteria for LVH, may be normal variant Anterolateral infarct , age undetermined Abnormal ECG Confirmed by COLLEEN LIMA, DEENA ([id number]), brands editor CORY CHU ([id number]) on 01/31/2019 9:22:12 AM Referred By: JAVIER Confirmed By:DEENA MACIAS MD
--- NOTE | 2019-01-26 16:08 | ED.VISSUMM ---
- ER Visit Summary Date of Service: 01/26/19 Chief Complaint: Patient presents with right knee pain and unable to bear weight after fall History of Present Illness: The patient is a 73 M with multiple medical problems who presents after mechanical fall. He is a patient of Dr. Kyle Rutledge. and patient states that Dr. Rutledge has considered right total knee arthroplasty. He recommended back surgery prior to knee surgery. He was operated on by Dr. Saturnino Dupree at [facility] end of last year. Patient denies head trauma, visual, ocular auditory symptoms. Denies trouble with speech or swallowing. Denies neck pain. States he has chronic low back pain. He is on no anticoagulant. He denies bruising easily. Past medical history coronary disease, CHF, type 2 diabetes, hypertension, hypercholesterolemia, hypothyroidism, GERD, obstructive sleep apnea and chronic lymphedema right greater than left. Per old records history of peripheral arterial disease and obesity. Physical Examination: Vital signs noted. He is bradycardic. Head is atraumatic normocephalic. Pupils are equal round reactive. Extraocular muscles are intact. TMs are pearly white with landmarks noted. Nares patent with no drainage. Posterior pharynx without erythema or exudate. Uvula is midline. There is no dysphonia or dysphasia. Trachea is midline. There is no stridor with auscultation of the neck. Heart is regular without murmur, gallop or rub. S1 and S2 are normal. Lungs are clear to auscultation with good movement of air bilaterally. Abdomen soft nontender. Is no pain the patient the pelvis. Pain is present has venous stasis changes of the right leg. The right leg is swollen compared to left. DP and PT pulses are palpable but diminished bilaterally. The calf is slightly tender. It is not firm hard and there is no pain with passive movement of the toes or ankle to suggest compartment syndrome. He denies paresthesia or anesthesia. Sensation is altered secondary to neuropathy most likely from peripheral arterial disease bilaterally. GCS is 15. He is alert and oriented. He is very hard of hearing. Cranial 2 through 12 intact. Motor and sensory are intact other than the altered sensation. Gait was not tested because patient is unable to ambulate. There is no pain the patient of the patella. There is no effusion in comparison to left. Surgical scars are noted both right and left. I was informed the left scar is secondary to a chain saw injury. There is significant laxity with varus valgus stress testing. He is unable to extend his leg against gravity. Uncertain whether this is secondary to fracture versus tendon injury. Test Results: Two-view x-ray of the tibia-fibula reveals a transverse fracture that is 36.8 mm inferior the medial hardware and there is fracture of the fibular head. Blood work was ordered as well as EKG since in all likelihood patient will need operative intervention. EKG reveals a sinus bradycardia rate of 57 with a left axis. There is decreased anterior force. There is no acute ischemic changes noted. Emergency Department Course and Treatment: X-ray was obtained. If x-ray was positive plan was to obtain baseline blood work and contact orthopedics. Spoke with Dr. Jim Dupree. He requested admission to medicine. He states he would notify Dr. Rutledge of patient. Consult was placed by oh. Case was discussed with hospitalist Dr. Bib Gustafson. Treatment Plan: 23-hour observation [facility] on medical service with consultation to orthopedics Disposition: 23 observation Impression: Inability to ambulate secondary to transverse fracture proximal right tibia and fibula History coronary disease History of CHF History of type 2 diabetes History of hypertension History of hypercholesterolemia History obstructive sleep apnea This note was generated with [employer] dictation software. It may contain incorrect words, spelling, and punctuation that were not noted in review of the chart prior to signing ED Disposition - Plan for ED Patient: Referrals: Gil Wheeler Chi, MD [Primary Care Provider] -
--- NOTE | 2019-01-26 16:11 | NURSING ---
MED [facility]G OBS JHONERI PROXIMAL RT TIBIA AND FIBULA FX
--- NOTE | 2019-01-26 16:14 | ED.DCSUM_ITS ---
- ER Visit Summary Date of Service: 01/26/19 Chief Complaint: Patient presents with right knee pain and unable to bear weight after fall History of Present Illness: The patient is a 73 M with multiple medical problems who presents after mechanical fall. He is a patient of Dr. Kyle Rutledge. and patient states that Dr. Rutledge has considered right total knee arthroplasty. He recommended back surgery prior to knee surgery. He was operated on by Dr. Saturnino Dupree at [facility] end of last year. Patient denies head trauma, visual, ocular auditory symptoms. Denies trouble with speech or swallowing. Denies neck pain. States he has chronic low back pain. He is on no anticoagulant. He denies bruising easily. Past medical history coronary disease, CHF, type 2 diabetes, hypertension, hypercholesterolemia, hypothyroidism, GERD, obstructive sleep apnea and chronic lymphedema right greater than left. Per old records history of peripheral arterial disease and obesity. Physical Examination: Vital signs noted. He is bradycardic. Head is atraumatic normocephalic. Pupils are equal round reactive. Extraocular muscles are intact. TMs are pearly white with landmarks noted. Nares patent with no drainage. Posterior pharynx without erythema or exudate. Uvula is midline. There is no dysphonia or dysphasia. Trachea is midline. There is no stridor with auscultation of the neck. Heart is regular without murmur, gallop or rub. S1 and S2 are normal. Lungs are clear to auscultation with good movement of air bilaterally. Abdomen soft nontender. Is no pain the patient the pelvis. Pain is present has venous stasis changes of the right leg. The right leg is swollen compared to left. DP and PT pulses are palpable but diminished bilaterally. The calf is slightly tender. It is not firm hard and there is no pain with passive movement of the toes or ankle to suggest compartment syndrome. He denies paresthesia or anesthesia. Sensation is altered secondary to neuropathy most likely from peripheral arterial disease bilaterally. GCS is 15. He is lima rt and oriented. He is very hard of hearing. Cranial 2 through 12 intact. Motor and sensory are intact other than the altered sensation. Gait was not tested because patient is unable to ambulate. There is no pain the patient of the patella. There is no effusion in comparison to left. Surgical scars are noted both right and left. I was informed the left scar is secondary to a chain saw injury. There is significant laxity with varus valgus stress testing. He is unable to extend his leg against gravity. Uncertain whether this is secondary to fracture versus tendon injury. Test Results: Two-view x-ray of the tibia-fibula reveals a transverse fracture that is 36.8 mm inferior the medial hardware and there is fracture of the fibular head. Blood work was ordered as well as EKG since in all likelihood patient will need operative intervention. EKG reveals a sinus bradycardia rate of 57 with a left axis. There is decreased anterior force. There is no acute ischemic changes noted. Emergency Department Course and Treatment: X-ray was obtained. If x-ray was positive plan was to obtain baseline blood work and contact orthopedics. Spoke with Dr. Jim Dupree. He requested admission to medicine. He states he would notify Dr. Rutledge of patient. Consult was placed by fl. Case was discussed with hospitalist Dr. Bib Gustafson. Treatment Plan: 23-hour observation [facility] on medical service with consultation to orthopedics Disposition: 23 observation Impression: Inability to ambulate secondary to transverse fracture proximal right tibia and fibula History coronary disease History of CHF History of type 2 diabetes History of hypertension History of hypercholesterolemia History obstructive sleep apnea This note was generated with [employer] dictation software. It may contain incorrect words, spelling, and punctuation that were not noted in review of the chart prior to signing ED Disposition - Plan for ED Patient: Referrals: Gil Wheeler Chi, MD [Primary Care Provider] -
[2019-01-26 16:17] LABS: Absolute Lymphocyte Count 2.65 X10^3/ul (0.83-4.51); Absolute Neutrophil Count 8.7 X10^3/uL (2.0-7.7); Basophil# 0.02 X10^3/uL; Basophil% 0.2 % (0-1); Eosinophil# 0.15 X10^3/uL; Eosinophils% 1.2 % (0-5); Hematocrit 42.1 % (40-54); Hemoglobin 13.4 g/dl (13.0-16.5); Lymphocyte # 2.65 X10^3/ul (4.0); Lymphocyte % 20.9 % (19-41); Mean Corp Hgb Conc 31.8 g/gl (32-36); Mean Corpuscular Hgb 28.8 pg (27.0-32.0); Mean Corpuscular Volume 90.3 fL (80-94); Monocyte# 1.19 X10^3/uL; Monocyte% 9.4 % (0-10); Neutrophil # 8.66 X10^3/uL (2.7-7.7); Neutrophil % 68.1 % (47-70); Platelet Count 280 K/mm3 (150-450); RBC Distribution Width CV 14.8 % (11.6-14.6); RBC Distribution Width SD 48.6 fl (35.1-43.9); Red Blood Count 4.66 M/mm3 (4.6-6.2); White Blood Count 12.7 K/mm3 (4.4-11.0)
[2019-01-26 16:19] LABS: POSITIVE COUNT NO; POSITIVE DIFFERENTIAL NO; POSITIVE MORPHOLOGY NO
[2019-01-26 16:28] VITALS: BP 140/72; PULSE 56; RESP 16; O2SAT 93
[2019-01-26 16:33] LABS: Anion Gap 8 (5-15); BUN 17 mg/dL (7-18); BUN/Creat Ratio 20.1 RATIO (10-20); Calcium,Total 8.4 mg/dL (8.5-10.1); Chloride 103 mmol/L (98-107); Creatinine, Serum 0.85 mg/dL (0.70-1.30); EST Glomerular Filtration Rate 94 mL/min (>60); Est Glom Filt Rate - Afr Amer 114 mL/min (>60); Estimated Creatinine Clearance 74.88 ml/min; Glucose 138 mg/dL (74-106); Potassium 3.7 mmol/L (3.5-5.1); Sodium Level 139 mmol/L (136-145)
--- NOTE | 2019-01-26 17:04 | HP.PCM_ITS ---
Problem List (1) Knee pain, right Status: Acute Qualifiers: Chronicity: acute Qualified Code(s): M25.561 - Pain in right knee History of Present Illness Date of Admission: 01/26/19 Chief Complaint: right knee pain The patient is a 73 year old M presents with right knee pain. Patient has known osteoarthritis and has a poor performance status as well. Patient essentially lives in his lift chair. Goes to the bathroom using a short distance. Patient has limited activity overall. Patient has relatively frequent falls because his legs will just give out. So patient fell today and had pain in his right knee. Patient was found to have a proximal right tib-fib fracture. He was put in immobilizer in the emergency room. Dr. Dupree, of orthopedics, was contacted and said that Dr. Rutledge would see him on the to determine if the patient would require surgery and if so devices would be needed. [] Past Medical History Past Medical History (Chronic Problems): Chronic Problems (Last Reviewed 07/17/18 @ 08:58 by Jethro Dozier MD) Weakness (Chronic) Chronic diastolic heart failure (Chronic) Lymphedema (Chronic) Diabetes mellitus (Chronic) GERD (gastroesophageal reflux disease) (Chronic) Hypothyroidism (Chronic) Lumbar spinal stenosis (Chronic) Osteoarthritis of knees, bilateral (Chronic) Depression (Chronic) Gout (Chronic) Neuropathic pain (Chronic) Low back pain (Chronic) Chronic venous insufficiency (Chronic) Dependent edema (Chronic) Debility (Chronic) Leg swelling (Chronic) EH (obstructive sleep apnea) (Chronic) Tricuspid valve insufficiency (Chronic) Venous stasis ulcer (Chronic) Obesity, morbid, BMI 40.0-49.9 (Chronic) Abnormal electrocardiogram (Chronic) Non-rheumatic tricuspid valve insufficiency (Chronic) Chronic diastolic (congestive) heart failure (Chronic) Hyperlipidemia (Chronic) Hypertension (Chronic) Chronic acquired lymphedema (Chronic) Medical History: Medical History (Last Reviewed 01/26/19 @ 17:02 by Bib Judge DO) Non-rheumatic tricuspid valve insufficiency (Chronic) I36.1 Chronic diastolic (congestive) heart failure (Chronic) I50.32 Hyperlipidemia (Chronic) E78.5 Hypertension (Chronic) I10 Asbestos exposure Z77.090 GERD (gastroesophageal reflux disease) K21.9 Hypothyroidism E03.9 Obstructive sleep apnea G47.33 Type 2 diabetes mellitus E11.9 Venous stasis dermatitis of right lower extremity (Inactive) I83.11 Allergies cocaine Allergy (Verified 09/11/18 13:52) Unknown atorvastatin calcium [From Lipitor] Adverse Reaction (Verified 09/11/18 13:52) Pain in joints haloperidol [From Haldol] Adverse Reaction (Verified 09/11/18 13:52) Other WENT CRAZY morphine Adverse Reaction (Verified 09/11/18 13:52) Other extremely aggitated oxycodone [From OxyIR] Adverse Reaction (Verified 09/11/18 13:52) Pain in joints extremely aggitated prednisone Adverse Reaction (Verified 09/11/18 13:52) ANXIOUS, INSOMNIA STERIODS Adverse Reaction (Uncoded 08/16/18 02:59) Other ANXIETY INSOMNIA Home Medications: Ambulatory Orders Medication Instructions Recorded Paroxetine HCl [Paxil] 40 mg PO DAILY 09/27/16 Potassium Chloride [K-Dur] 20 meq PO BID 09/27/16 Simvastatin [Zocor] 40 mg PO QHS 09/27/16 Sitagliptin Phosphate [Januvia] 100 mg PO DAILY 09/27/16 Torsemide [Demadex] 20 mg PO BID 09/27/16 traZODone [Desyrel] 50 mg PO QHS 09/27/16 Divalproex Sodium [Depakote] 500 mg PO BID 08/14/17 Allopurinol 100 mg PO DAILY 05/17/18 gabapentin 300 mg capsule 300 mg PO BID cap 07/17/18 levothyroxine 100 mcg capsule 112 mcg PO DAILY 07/17/18 Diclofenac Sodium 25 mg PO BID 08/16/18 Empagliflozin [Jardiance] 25 mg PO DAILY #30 tablet 09/09/18 Insulin Glargine [Lantus SoloStar 75 units SC QHS pen 09/09/18 Pen] Losartan Potassium 100 mg PO BID #60 tablet 09/09/18 Metoprolol(XL)Succ [Toprol Xl 12.5 mg PO BID #30 tablet 09/09/18 (Beta Romel)] Dulaglutide [Trulicity] 1.5 mg SQ QWEEK 01/26/19 Ergocalciferol (Vitamin D2) 50,000 unit PO QMONTH 01/26/19 [Vitamin D2] Surgical History: Surgical History (Last Reviewed 01/26/19 @ 17:02 by Bib Judge DO) Cochlear implant in place Z96.21 H/O shoulder surgery Z98.890 History of left heart catheterization Onset Date: 08/15/17 Z98.890 non obstructive coronary arteries History of right knee joint replacement Z96.651 Hx of cholecystectomy Z90.49 Previous back surgery Z98.890 Surgical History: cholecystectomy, total hip arthroplasty - Right, total knee arthroplasty - Right., - - Left shoulder surgery with rotator cuff repair; back surgery x 4; left cochlear implant. Smoking Status: Former smoker - *Family History Maternal Family History: Family History (Last Reviewed 01/26/19 @ 17:02 by Bib Judge DO) Mother Hypertension Father Hypertension History Items: Dementia, Hypertension Paternal Family History: Family History (Last Reviewed 01/26/19 @ 17:02 by Bib Judge DO) Mother Hypertension Father Hypertension History Items: Heart Disease - decased age 73, Hypertension Review of Systems Constitutional: Denies: Anorexia, Chills, Fever Eyes: Denies: Blurred vision, Double vision HEENT: Reports: Difficulty Hearing. Denies: Head Aches, Sinus Congestion, Sinus Drainage Cardiovascular: Denies: Chest Pain, Palpitations Respiratory: Denies: Cough, Shortness of breath at rest, Sputum production Gastrointestinal: Reports: Constipation, Diarrhea. Denies: Abdominal Pain, Nausea, Vomiting Genitourinary: Reports: Incontinence. Denies: Dysuria Musculoskeletal: Reports: Joint Pain, - - Right knee pain Skin: Reports: - - Venous stasis changes. Weeping from lymphedema of the lower extremities. Neurological: Reports: Balance problems - Patient is very debilitated overall.. Denies: Blurred vision, Double vision Psychiatric: Denies: Anxiety, Depression Endocrine: Denies: Change in Body Habitus, Heat/ Cold Intolerance Hematologic/ Lymphatic: Denies: Easy Bruising, Easy Bleeding, Hx of blood clot Comment: A 10 point review of systems were negative except as mentioned in the history of present illness and the other review of systems. VTE Information - Inpt Only VTE Present on Admission: No VTE Mechan Device Prophylaxis: None VTE Pharm Prophylaxis ordered?: Yes Patient Problems: Active and Suspected Problems (Last Reviewed 07/17/18 @ 08:58 by Jethro Dozier MD) Knee pain, right (Acute) - Physical Exam General: Alert, Cooperative, No apparent distress HEENT: Atraumatic, Normocephalic Oral: Moist Mucosa, No Gingival or Mucosal Lesions/ Ulcerations Neck: No Nodes, Thyroid Normal Size and Texture Lungs: Clear to auscultation, Normal air movement, No rhonchi, No wheeze Cardiovascular: Regular rate, Regular Rhythm, Normal S1, Normal S2, No murmurs Abdomen: Bowel Sounds Present, Soft, Non Tender, Non-Distended, No Hepato- splenomegaly Extremities: No Calf Tenderness, Edema Skin: - - Venous stasis changes to the lower extremities. Musculoskeletal: - - Right lower extremity in a knee immobilizer Psych/Mental Status: Normal Affect, Appropriate Vital Signs Temp Pulse Resp BP Pulse Ox 36.7 C 56 L 16 140/72 H 93 01/26/19 14:45 01/26/19 16:28 01/26/19 16:28 01/26/19 16:28 01/26/19 16:28 Oxygen Delivery Method Room Air Weight: 122.47 kg Body Mass Index (BMI) 41.0 Finger Stick Blood Glucose 166 Laboratory Tests Past 24 Hrs 01/26/19 01/26/19 01/26/19 16:00 16:00 16:00 WBC 12.7 H RBC 4.66 Hgb 13.4 Hct 42.1 MCV 90.3 MCH 28.8 MCHC 31.8 L RDW 14.8 H RDW Differential 48.6 H Plt Count 280 MPV 10.0 Immature Gran % (Auto) 0.200 Neut % (Auto) 68.1 Lymph % (Auto) 20.9 [place] % (Auto) 9.4 Eos % (Auto) 1.2 Baso % (Auto) 0.2 Absolute Neuts (auto) 8.7 H Absolute Lymphs (auto) 2.65 Total Counted Not Reportable PT Pending INR Pending APTT Pending Sodium 139 Potassium 3.7 Chloride 103 Carbon Dioxide 28.0 Anion Gap 8 BUN 17 Creatinine 0.85 Estim Creat Clear Calc 74.88 Est GFR (MDRD) Af Amer 114 Est GFR (MDRD) Non-Af 94 BUN/Creatinine Ratio 20.1 H Glucose 138 H Calcium 8.4 L Clinical Impression(s) from Imaging Studies Tibia/Fibula X-Ray 01/26/19 14:56 IMPRESSION: 1. Proximal tibia and fibular fractures. 2. Medial compartment hemiarthroplasty. Electronically Signed: Jose Wisdom MD at 16:22 EDT , Service support , Assessment/Plan All Active Problems (Last Reviewed 07/17/18 @ 08:58 by Jethro Dozier MD) Knee pain, right (Acute) Preop cardiovascular exam (Acute) Skin tear of right lower leg without complication (Acute) Cellulitis (Resolved) Hypokalemia (Resolved) 1. Right proximal tibial and fibula fracture: Patient will continue with immobilizer for now. Consultation placed to orthopedics to determine what the next course of action skin to be and if patient does require surgery will be done during this admission or done at a later point. Given that it is unclear when surgery will be done, patient will be brought in under observation status for now. Pain control. Nonweightbearing to the right lower extremity for now. Check 25 hydroxy vitamin D level. 2. Debility: Patient has very poor performance status and only ambulates very short distances from his lift chair to the commode. Patient gives description of his legs just giving out. Feel is probably a combination of his debility, arthritis that likely culminated into his falls. Physical and occupational therapy to evaluate and treat. 3. DVT prophylaxis with low medical weight heparin. 4. Disposition: As above, patient be brought under observation status for now unless patient does not have surgery then that can change at a later point. This was discussed with the patient and his . Code Visit OBSV E&M: 59659 Initial observation care L2
[2019-01-26 17:12] LABS: International Normalized Ratio 1.1; Prothrombin Time (Protime)PT. 14.1 SECONDS (11.7-14.9)
[2019-01-26 17:13] LABS: Partial Thromboplast Time 31.1 Seconds (24.1-36.2)
[2019-01-26 17:28] VITALS: BP 119/58; PULSE 58; RESP 16; TEMP 36.6; O2SAT 98; BMI 40.6
--- NOTE | 2019-01-26 17:48 | CT_ITS ---
STUDY: CT RIGHT KNEE WITHOUT CONTRAST REASON FOR EXAM: Male, 73 years old. Follow-up of right-sided tibial and fibular fractures. RADIATION DOSAGE (If Supplied By Facility): CTDIvol = ( 15.35 ) mGy, DLP = ( 535.36 ) mGycm TECHNIQUE: Transaxial CT imaging of the knee was performed. Coronal and sagittal images were reformatted. Individualized dose optimization techniques were used for this CT. COMPARISON: Radiographs of the right leg dated January 26, 2019. FINDINGS: Patient has had a medial femoral tibial hemiarthroplasty. The lateral femoral tibial compartment is within normal limits. There is a comminuted mildly impacted fracture of the proximal tibial metaphysis and diaphysis. The fracture may also involve the tibial plateau. There is associated fracture of the fibular head. There are mild degenerative changes of the proximal tibiofibular articulation. There is a small joint effusion. There is a fat fluid level within the suprapatellar effusion consistent with hemarthrosis. The bones are osteopenic. The quadriceps tendon is grossly normal. The patellar tendon is grossly normal. Normal Hoffa's fat pad. There is diffuse soft tissue edema within the subcutaneous soft tissues. The skeletal muscles are within normal limits. CT/Extremity Lower without Contra IMPRESSION: 1. Comminuted fractures of proximal tibial metaphysis and epiphysis. 2. Displaced fracture of the proximal fibula. 3. Hemarthrosis. 4. Status post medial femorotibial hemiarthroplasty. Electronically Signed: Sydney Dupree MD at 10:11 EDT , Service support ,
[2019-01-26 18:15] LABS: Bedside Glucose 99 mg/dL (70-110)
[2019-01-26] MEDS: HYDROmorphone 2 MG TABLET PO (18:58)
[2019-01-26] MEDS: Furosemide 40 MG Tablet PO (18:59)
[2019-01-26 19:51] VITALS: BP 116/58; PULSE 61; RESP 14; TEMP 36.5; O2SAT 92
[2019-01-26 21:36] VITALS: PULSE 61
[2019-01-26] MEDS: Metoprolol(XL)Succ 25 MG Tablet 12.5 MG PO (21:36)
[2019-01-26] MEDS: Divalproex (ER) 500 MG Tablet PO (21:36)
[2019-01-26] MEDS: Losartan Potassium 100 MG Tablet PO (21:37)
[2019-01-26] MEDS: Gabapentin 300 MG Capsule PO (21:37)
[2019-01-26] MEDS: Acetaminophen 325 MG Tablet 650 MG PO (21:37)
[2019-01-26] MEDS: traZODone 50 MG Tablet PO (21:37)
[2019-01-26 22:51] LABS: Bedside Glucose 121 mg/dL (70-110)
[2019-01-27 02:54] VITALS: BP 103/78; PULSE 65; RESP 14; TEMP 36.7; O2SAT 92
[2019-01-27] MEDS: Levothyroxine 112 MCG Tablet PO (05:31)
[2019-01-27 06:40] LABS: Anion Gap 11 (5-15); BUN 20 mg/dL (7-18); BUN/Creat Ratio 22.7 RATIO (10-20); Calcium,Total 8.1 mg/dL (8.5-10.1); Chloride 105 mmol/L (98-107); Creatinine, Serum 0.88 mg/dL (0.70-1.30); EST Glomerular Filtration Rate 90 mL/min (>60); Est Glom Filt Rate - Afr Amer 109 mL/min (>60); Estimated Creatinine Clearance 72.33 ml/min; Glucose 84 mg/dL (74-106); Potassium 4.3 mmol/L (3.5-5.1); Sodium Level 144 mmol/L (136-145)
--- NOTE | 2019-01-27 08:30 | PCM.PN.HOSP ---
Patient Problems: Active and Suspected Problems (Last Reviewed 01/26/19 @ 17:02 by Bib Judge DO) Knee pain, right (Acute) Subjective: Patient is a 73-year-old gentleman admitted following a fall imaging studies on admission demonstrated Proximal tibia and fibular fractures. Immobilized and admitted to regular nursing floor with consultation placed to orthopedic surgery Objective: GENERAL: cooperative HEENT: Atraumatic; moist oral mucosa EYES; Anicteric, Normal Conjunctiva NECK; supple, normal thyroid, no distended JVD. RESPIRATORY: Diminished to auscultation bilaterally, CARDIOVASCULAR: Regular S1 S2, no audible murmurs GI: soft, non-tender, normoactive bowel sounds, : No Renal angle tenderness; EXTREMITIES: No edema, no clubbing, no cyanosis. MUSCULOSKELETAL: No Joint Tenderness; no muscle waisting NEURO: Awake; no lateralizing signs. SKIN: No Rash PSYCH; Normal affect Vitals/I&O's: Vital Signs Temp Pulse Resp BP Pulse Ox 98.1 F 65 14 103/78 92 01/27/19 02:54 01/27/19 02:54 01/27/19 02:54 01/27/19 02:54 01/27/19 02:54 Oxygen Delivery Method Room Air Weight: 121.223 kg Body Mass Index (BMI) 40.6 Finger Stick Blood Glucose 166 Intake and Output for Last 24 Hours 01/25/19 01/26/19 01/27/19 22:59 23:59 23:59 Intake Total 600 / 600 Output Total 1000 / 1000 Balance -400 / -400 Laboratory Results 01/26/19 16:00: WBC 12.7 H, RBC 4.66, Hgb 13.4, Hct 42.1, MCV 90.3, MCH 28.8, MCHC 31.8 L, RDW 14.8 H, RDW Differential 48.6 H, Plt Count 280, MPV 10.0, Immature Gran % (Auto) 0.200, Neut % (Auto) 68.1, Lymph % (Auto) 20.9, [place] % (Auto) 9.4, Eos % (Auto) 1.2, Baso % (Auto) 0.2, Absolute Neuts (auto) 8.7 H, Absolute Lymphs (auto) 2.65, Total Counted Not Reportable 01/26/19 16:00: PT 14.1, INR 1.1, APTT 31.1 01/26/19 16:00: Sodium 139, Potassium 3.7, Chloride 103, Carbon Dioxide 28.0, Anion Gap 8, BUN 17, Creatinine 0.85, Estim Creat Clear Calc 74.88, Est GFR (MDRD) Af Amer 114, Est GFR (MDRD) Non-Af 94, BUN/Creatinine Ratio 20.1 H, Glucose 138 H, Calcium 8.4 L 01/26/19 17:57: POC Glucose 99 01/26/19 21:46: POC Glucose 121 H 01/27/19 05:20: Sodium 144, Potassium 4.3, Chloride 105, Carbon Dioxide 28.0, Anion Gap 11, BUN 20 H, Creatinine 0.88, Estim Creat Clear Calc 72.33, Est GFR (MDRD) Af Amer 109, Est GFR (MDRD) Non-Af 90, BUN/Creatinine Ratio 22.7 H, Glucose 84, Calcium 8.1 L 01/27/19 05:20: Vitamin D 25-Hydroxy Pending Current Medications Acetaminophen (Tylenol) 650 mg PO Q6H PRN PRN PRN Reason: Mild Pain (1-3)/Temp > 100.7 F Last Admin: 01/26/19 21:37 Dose: 650 mg Allopurinol (Zyloprim) 100 mg PO DAILY [facility] Dextrose (D50w Syringe) 0 gm IV X1 PRN; Protocol PRN Reason: Hypoglycemia Diclofenac Sodium (Voltaren) 50 mg PO BIDCM [facility] Divalproex Sodium (Depakote Er) 500 mg PO BID [facility] Last Admin: 01/26/19 21:36 Dose: 500 mg Enoxaparin Sodium (Lovenox) 40 mg SC DAILY@1000 [facility] Ergocalciferol (Vitamin D) 50,000 unit PO QMONTH [facility] Furosemide (Lasix) 40 mg PO BIDLX [facility] Last Admin: 01/26/19 18:59 Dose: 40 mg Gabapentin (Neurontin) 300 mg PO BID [facility] Last Admin: 01/26/19 21:37 Dose: 300 mg Glucagon () 1 mg IM .X1 PRN PRN Reason: Hypoglycemia Hydromorphone HCl (Dilaudid Inj) 0.5 mg IV Q4H PRN PRN PRN Reason: breakthough pain Hydromorphone HCl (Dilaudid Tablet) 2 mg PO Q4H PRN PRN PRN Reason: SEVERE PAIN (6-08/28) Last Admin: 01/26/19 18:58 Dose: 2 mg Insulin Glargine (Lantus (Bkc)) 75 units SC QHS [facility] Last Admin: 01/26/19 21:47 Dose: 75 units Insulin Human Lispro (Humalog Kwikpen (Bkc)) 0 unit SQ TIDAC [facility]; Protocol Last Admin: 01/27/19 05:38 Dose: Not Given Levothyroxine Sodium (Synthroid) 112 mcg PO DAILY@0600 [facility] Last Admin: 01/27/19 05:31 Dose: 112 mcg Linagliptin (Tradjenta) 5 mg PO DAILY [facility] Losartan Potassium (Cozaar) 100 mg PO BID [facility] Last Admin: 01/26/19 21:37 Dose: 100 mg Magnesium Hydroxide (Milk Of Magnesia) 30 ml PO DAILY PRN PRN PRN Reason: Constipation Metoprolol Succinate (Toprol Xl (Beta Romel)) 12.5 mg PO BID [facility] Last Admin: 01/26/19 21:36 Dose: 12.5 mg Ondansetron HCl (Zofran) 4 mg IV Q8H PRN PRN PRN Reason: NAUSEA Paroxetine HCl (Paxil) 40 mg PO DAILY [facility] Potassium Chloride (K-Dur) 20 meq PO BIDCM [facility] Simvastatin (Zocor) 40 mg PO QHS [facility] Last Admin: 01/26/19 21:42 Dose: 40 mg Sodium Chloride () 5 - 15 ml IV UD PRN PRN Reason: SALINE FLUSH Trazodone HCl (Desyrel) 50 mg PO QHS [facility] Last Admin: 01/26/19 21:37 Dose: 50 mg Medical Necessity - Tobacco Use Smoking Status: Former smoker Assessment/Plan All Active Problems (Last Reviewed 01/26/19 @ 17:02 by Bib Judge DO) Knee pain, right (Acute) Preop cardiovascular exam (Acute) Skin tear of right lower leg without complication (Acute) Cellulitis (Resolved) Hypokalemia (Resolved) Patient is a 73-year-old gentleman admitted following a fall imaging studies on admission demonstrated Proximal tibia and fibular fractures. Immobilized and admitted to regular nursing floor with consultation placed to orthopedic surgery 1. Acute mechanical fall with resultant Proximal tibia and fibular fractures. Immobilized and admitted to regular nursing floor with consultation placed to orthopedic surgery 2. Diabetes mellitus type 2 did continue with patient home regimen also placed on Accu-Cheks before meals and at bedtime cover with sliding scale insulin 3. Dyslipidemia-patient is on statin therapy, continued at home dose 4. Hypertension-blood pressure controlled, home medications continued with dose adjustment as needed 5. Hypothyroidism-patient is on levothyroxine home dose continued 6. Gout patient is on allopurinol next 7. History of cochlear implant 8. Obstructive sleep apnea 9. GERD 10. Spinal lumbar stenosis 11. Generalized osteoarthritis 12. Morbid obesity with BMI of 40.6 13. DVT prophylaxis; SC Lovenox Active Medications Acetaminophen (Tylenol) 650 mg PO Q6H PRN PRN PRN Reason: Mild Pain (1-3)/Temp > 100.7 F Last Admin: 01/26/19 21:37 Dose: 650 mg Allopurinol (Zyloprim) 100 mg PO DAILY [facility] Dextrose (D50w Syringe) 0 gm IV X1 PRN; Protocol PRN Reason: Hypoglycemia Diclofenac Sodium (Voltaren) 50 mg PO BIDCM [facility] Divalproex Sodium (Depakote Er) 500 mg PO BID [facility] Last Admin: 01/26/19 21:36 Dose: 500 mg Enoxaparin Sodium (Lovenox) 40 mg SC DAILY@1000 [facility] Ergocalciferol (Vitamin D) 50,000 unit PO QMONTH [facility] Furosemide (Lasix) 40 mg PO BIDLX [facility] Last Admin: 01/26/19 18:59 Dose: 40 mg Gabapentin (Neurontin) 300 mg PO BID [facility] Last Admin: 01/26/19 21:37 Dose: 300 mg Glucagon () 1 mg IM .X1 PRN PRN Reason: Hypoglycemia Hydromorphone HCl (Dilaudid Inj) 0.5 mg IV Q4H PRN PRN PRN Reason: breakthough pain Hydromorphone HCl (Dilaudid Tablet) 2 mg PO Q4H PRN PRN PRN Reason: SEVERE PAIN (6-10/10) Last Admin: 01/26/19 18:58 Dose: 2 mg Insulin Glargine (Lantus (Bkc)) 75 units SC QHS [facility] Last Admin: 01/26/19 21:47 Dose: 75 units Insulin Human Lispro (Humalog Kwikpen (Bkc)) 0 unit SQ TIDAC [facility]; Protocol Last Admin: 01/27/19 05:38 Dose: Not Given Levothyroxine Sodium (Synthroid) 112 mcg PO DAILY@0600 [facility] Last Admin: 01/27/19 05:31 Dose: 112 mcg Linagliptin (Tradjenta) 5 mg PO DAILY [facility] Losartan Potassium (Cozaar) 100 mg PO BID [facility] Last Admin: 01/26/19 21:37 Dose: 100 mg Magnesium Hydroxide (Milk Of Magnesia) 30 ml PO DAILY PRN PRN PRN Reason: Constipation Metoprolol Succinate (Toprol Xl (Beta Romel)) 12.5 mg PO BID [facility] Last Admin: 01/26/19 21:36 Dose: 12.5 mg Ondansetron HCl (Zofran) 4 mg IV Q8H PRN PRN PRN Reason: NAUSEA Paroxetine HCl (Paxil) 40 mg PO DAILY [facility] Potassium Chloride (K-Dur) 20 meq PO BIDCM [facility] Simvastatin (Zocor) 40 mg PO QHS [facility] Last Admin: 01/26/19 21:42 Dose: 40 mg Sodium Chloride () 5 - 15 ml IV UD PRN PRN Reason: SALINE FLUSH Trazodone HCl (Desyrel) 50 mg PO QHS [facility] Last Admin: 01/26/19 21:37 Dose: 50 mg Clinical Impression(s) from Imaging Studies Tibia/Fibula X-Ray 01/26/19 14:56 IMPRESSION: 1. Proximal tibia and fibular fractures. 2. Medial compartment hemiarthroplasty. Electronically Signed: Jose Wisdom MD at 16:22 EDT , Service support , Code Visit Inpatient E&M: 05444 Subs Hosp L3
--- NOTE | 2019-01-27 08:34 | PN_ITS ---
Patient Problems: Active and Suspected Problems (Last Reviewed 01/26/19 @ 17:02 by Bib Judge DO) Knee pain, right (Acute) Subjective: Patient is a 73-year-old gentleman admitted following a fall imaging studies on admission demonstrated Proximal tibia and fibular fractures. Immobilized and admitted to regular nursing floor with consultation placed to orthopedic surgery Objective: GENERAL: cooperative HEENT: Atraumatic; moist oral mucosa EYES; Anicteric, Normal Conjunctiva NECK; supple, normal thyroid, no distended JVD. RESPIRATORY: Diminished to auscultation bilaterally, CARDIOVASCULAR: Regular S1 S2, no audible murmurs GI: soft, non-tender, normoactive bowel sounds, : No Renal angle tenderness; EXTREMITIES: No edema, no clubbing, no cyanosis. MUSCULOSKELETAL: No Joint Tenderness; no muscle waisting NEURO: Awake; no lateralizing signs. SKIN: No Rash PSYCH; Normal affect Vitals/I&O's: Vital Signs Temp Pulse Resp BP Pulse Ox 98.1 F 65 14 103/78 92 01/27/19 02:54 01/27/19 02:54 01/27/19 02:54 01/27/19 02:54 01/27/19 02:54 Oxygen Delivery Method Room Air Weight: 121.223 kg Body Mass Index (BMI) 40.6 Finger Stick Blood Glucose 166 Intake and Output for Last 24 Hours 01/25/19 01/26/19 01/27/19 22:59 23:59 23:59 Intake Total 600 / 600 Output Total 1000 / 1000 Balance -400 / -400 Laboratory Results 01/26/19 16:00: WBC 12.7 H, RBC 4.66, Hgb 13.4, Hct 42.1, MCV 90.3, MCH 28.8, MCHC 31.8 L, RDW 14.8 H, RDW Differential 48.6 H, Plt Count 280, MPV 10.0, Immature Gran % (Auto) 0.200, Neut % (Auto) 68.1, Lymph % (Auto) 20.9, [place] % (Auto) 9.4, Eos % (Auto) 1.2, Baso % (Auto) 0.2, Absolute Neuts (auto) 8.7 H, Absolute Lymphs (auto) 2.65, Total Counted Not Reportable 01/26/19 16:00: PT 14.1, INR 1.1, APTT 31.1 01/26/19 16:00: Sodium 139, Potassium 3.7, Chloride 103, Carbon Dioxide 28.0, Anion Gap 8, BUN 17, Creatinine 0.85, Estim Creat Clear Calc 74.88, Est GFR (MDRD) Af Amer 114, Est GFR (MDRD) Non-Af 94, BUN/Creatinine Ratio 20.1 H, Glucose 138 H, Calcium 8.4 L 01/26/19 17:57: POC Glucose 99 01/26/19 21:46: POC Glucose 121 H 01/27/19 05:20: Sodium 144, Potassium 4.3, Chloride 105, Carbon Dioxide 28.0, Anion Gap 11, BUN 20 H, Creatinine 0.88, Estim Creat Clear Calc 72.33, Est GFR (MDRD) Af Amer 109, Est GFR (MDRD) Non-Af 90, BUN/Creatinine Ratio 22.7 H, Glucose 84, Calcium 8.1 L 01/27/19 05:20: Vitamin D 25-Hydroxy Pending Current Medications Acetaminophen (Tylenol) 650 mg PO Q6H PRN PRN PRN Reason: Mild Pain (1-3)/Temp > 100.7 F Last Admin: 01/26/19 21:37 Dose: 650 mg Allopurinol (Zyloprim) 100 mg PO DAILY [facility] Dextrose (D50w Syringe) 0 gm IV X1 PRN; Protocol PRN Reason: Hypoglycemia Diclofenac Sodium (Voltaren) 50 mg PO BIDCM [facility] Divalproex Sodium (Depakote Er) 500 mg PO BID [facility] Last Admin: 01/26/19 21:36 Dose: 500 mg Enoxaparin Sodium (Lovenox) 40 mg SC DAILY@1000 [facility] Ergocalciferol (Vitamin D) 50,000 unit PO QMONTH [facility] Furosemide (Lasix) 40 mg PO BIDLX [facility] Last Admin: 01/26/19 18:59 Dose: 40 mg Gabapentin (Neurontin) 300 mg PO BID [facility] Last Admin: 01/26/19 21:37 Dose: 300 mg Glucagon () 1 mg IM .X1 PRN PRN Reason: Hypoglycemia Hydromorphone HCl (Dilaudid Inj) 0.5 mg IV Q4H PRN PRN PRN Reason: breakthough pain Hydromorphone HCl (Dilaudid Tablet) 2 mg PO Q4H PRN PRN PRN Reason: SEVERE PAIN (6-08/28) Last Admin: 01/26/19 18:58 Dose: 2 mg Insulin Glargine (Lantus (Bkc)) 75 units SC QHS [facility] Last Admin: 01/26/19 21:47 Dose: 75 units Insulin Human Lispro (Humalog Kwikpen (Bkc)) 0 unit SQ TIDAC [facility]; Protocol Last Admin: 01/27/19 05:38 Dose: Not Given Levothyroxine Sodium (Synthroid) 112 mcg PO DAILY@0600 [facility] Last Admin: 01/27/19 05:31 Dose: 112 mcg Linagliptin (Tradjenta) 5 mg PO DAILY [facility] Losartan Potassium (Cozaar) 100 mg PO BID [facility] Last Admin: 01/26/19 21:37 Dose: 100 mg Magnesium Hydroxide (Milk Of Magnesia) 30 ml PO DAILY PRN PRN PRN Reason: Constipation Metoprolol Succinate (Toprol Xl (Beta Romel)) 12.5 mg PO BID [facility] Last Admin: 01/26/19 21:36 Dose: 12.5 mg Ondansetron HCl (Zofran) 4 mg IV Q8H PRN PRN PRN Reason: NAUSEA Paroxetine HCl (Paxil) 40 mg PO DAILY [facility] Potassium Chloride (K-Dur) 20 meq PO BIDCM [facility] Simvastatin (Zocor) 40 mg PO QHS [facility] Last Admin: 01/26/19 21:42 Dose: 40 mg Sodium Chloride () 5 - 15 ml IV UD PRN PRN Reason: SALINE FLUSH Trazodone HCl (Desyrel) 50 mg PO QHS [facility] Last Admin: 01/26/19 21:37 Dose: 50 mg Medical Necessity - Tobacco Use Smoking Status: Former smoker Assessment/Plan All Active Problems (Last Reviewed 01/26/19 @ 17:02 by Bib Judge DO) Knee pain, right (Acute) Preop cardiovascular exam (Acute) Skin tear of right lower leg without complication (Acute) Cellulitis (Resolved) Hypokalemia (Resolved) Patient is a 73-year-old gentleman admitted following a fall imaging studies on admission demonstrated Proximal tibia and fibular fractures. Immobilized and admitted to regular nursing floor with consultation placed to orthopedic surgery 1. Acute mechanical fall with resultant Proximal tibia and fibular fractures. Immobilized and admitted to regular nursing floor with consultation placed to orthopedic surgery 2. Diabetes mellitus type 2 did continue with patient home regimen also placed on Accu-Cheks before meals and at bedtime cover with sliding scale insulin 3. Dyslipidemia-patient is on statin therapy, continued at home dose 4. Hypertension-blood pressure controlled, home medications continued with dose adjustment as needed 5. Hypothyroidism-patient is on levothyroxine home dose continued 6. Gout patient is on allopurinol next 7. History of cochlear implant 8. Obstructive sleep apnea 9. GERD 10. Spinal lumbar stenosis 11. Generalized osteoarthritis 12. Morbid obesity with BMI of 40.6 13. DVT prophylaxis; SC Lovenox Active Medications Acetaminophen (Tylenol) 650 mg PO Q6H PRN PRN PRN Reason: Mild Pain (1-3)/Temp > 100.7 F Last Admin: 01/26/19 21:37 Dose: 650 mg Allopurinol (Zyloprim) 100 mg PO DAILY [facility] Dextrose (D50w Syringe) 0 gm IV X1 PRN; Protocol PRN Reason: Hypoglycemia Diclofenac Sodium (Voltaren) 50 mg PO BIDCM [facility] Divalproex Sodium (Depakote Er) 500 mg PO BID [facility] Last Admin: 01/26/19 21:36 Dose: 500 mg Enoxaparin Sodium (Lovenox) 40 mg SC DAILY@1000 [facility] Ergocalciferol (Vitamin D) 50,000 unit PO QMONTH [facility] Furosemide (Lasix) 40 mg PO BIDLX [facility] Last Admin: 01/26/19 18:59 Dose: 40 mg Gabapentin (Neurontin) 300 mg PO BID [facility] Last Admin: 01/26/19 21:37 Dose: 300 mg Glucagon () 1 mg IM .X1 PRN PRN Reason: Hypoglycemia Hydromorphone HCl (Dilaudid Inj) 0.5 mg IV Q4H PRN PRN PRN Reason: breakthough pain Hydromorphone HCl (Dilaudid Tablet) 2 mg PO Q4H PRN PRN PRN Reason: SEVERE PAIN (6-10/10) Last Admin: 01/26/19 18:58 Dose: 2 mg Insulin Glargine (Lantus (Bkc)) 75 units SC QHS [facility] Last Admin: 01/26/19 21:47 Dose: 75 units Insulin Human Lispro (Humalog Kwikpen (Bkc)) 0 unit SQ TIDAC [facility]; Protocol Last Admin: 01/27/19 05:38 Dose: Not Given Levothyroxine Sodium (Synthroid) 112 mcg PO DAILY@0600 [facility] Last Admin: 01/27/19 05:31 Dose: 112 mcg Linagliptin (Tradjenta) 5 mg PO DAILY [facility] Losartan Potassium (Cozaar) 100 mg PO BID [facility] Last Admin: 01/26/19 21:37 Dose: 100 mg Magnesium Hydroxide (Milk Of Magnesia) 30 ml PO DAILY PRN PRN PRN Reason: Constipation Metoprolol Succinate (Toprol Xl (Beta Romel)) 12.5 mg PO BID [facility] Last Admin: 01/26/19 21:36 Dose: 12.5 mg Ondansetron HCl (Zofran) 4 mg IV Q8H PRN PRN PRN Reason: NAUSEA Paroxetine HCl (Paxil) 40 mg PO DAILY [facility] Potassium Chloride (K-Dur) 20 meq PO BIDCM [facility] Simvastatin (Zocor) 40 mg PO QHS [facility] Last Admin: 01/26/19 21:42 Dose: 40 mg Sodium Chloride () 5 - 15 ml IV UD PRN PRN Reason: SALINE FLUSH Trazodone HCl (Desyrel) 50 mg PO QHS [facility] Last Admin: 01/26/19 21:37 Dose: 50 mg Clinical Impression(s) from Imaging Studies Tibia/Fibula X-Ray 01/26/19 14:56 IMPRESSION: 1. Proximal tibia and fibular fractures. 2. Medial compartment hemiarthroplasty. Electronically Signed: Jose Wisdom MD at 16:22 EDT , Service support , Code Visit Inpatient E&M: 70544 Subs Hosp L3
[2019-01-27 08:58] LABS: Vitamin D,25 Hydroxy 20.6 ng/mL (29.95-100.01)
[2019-01-27 09:35] VITALS: BP 118/56; PULSE 74; RESP 18; TEMP 37.6; O2SAT 93
[2019-01-27] MEDS: Paroxetine 20 MG Tablet 40 MG PO (09:39)
[2019-01-27] MEDS: Losartan Potassium 100 MG Tablet PO ×2 (09:39→22:41)
[2019-01-27] MEDS: LINAGLIPTIN 5 MG TABLET PO (09:39)
[2019-01-27] MEDS: Divalproex (ER) 500 MG Tablet PO ×2 (09:39→22:41)
[2019-01-27] MEDS: Empagliflozin 25 MG Tablet PO (09:39)
[2019-01-27 09:40] VITALS: PULSE 74
[2019-01-27] MEDS: Allopurinol 100 MG Tablet PO (09:40)
[2019-01-27] MEDS: Enoxaparin 40 MG/0.4 ML Syringe SC (09:40)
[2019-01-27] MEDS: Metoprolol(XL)Succ 25 MG Tablet 12.5 MG PO ×2 (09:40→22:42)
[2019-01-27] MEDS: Gabapentin 300 MG Capsule PO ×2 (09:40→22:41)
[2019-01-27] MEDS: Furosemide 40 MG Tablet PO ×2 (09:40→16:27)
[2019-01-27] MEDS: HYDROmorphone 2 MG TABLET PO (09:46)
--- NOTE | 2019-01-27 10:50 | CASEMGMT ---
Social Work Note Per die machine operator questions, pt has HCPOA but hasn't completed LW. SW reviewed pt's echart and copy of HCPOA on echart. SW printed copy of HCPOA and placed on pt's chart. Tata Kasper PECAN HULLER, CITY MAIL CARRIER
--- NOTE | 2019-01-27 11:10 | CASEMGMT ---
JOSELITO GALARZA Face to Face with patient for initial transition planning/care coordination assessment. JOSELITO GALARZA introduced self and role at [facility]. Patient lying in bed, alert and oriented, at bedside. Patient willing to participate in assessment and is able to answer all questions appropriately. Care providers, pharmacy, and demographics verified. Patient and wish to discharge to SNF with TCU as their first choice. JOSELITO GALARZA updated that TCU may not have a bed available and asked for alternative SNF. JENNIFER Kasper updated regarding request for placement and need for SNF list. Patient states he has no further needs or concerns at this time. PCP: Liam Specialists: Jacoby, temperature control inspector; Cristina cementer helper; amalia Dupree Preferred Pharmacy: [facility] Insurance: [facility] Prescription Benefit: yes Living Will/HPOA: Yes, Mayda LNOK: Living Arrangements: Patient lives with in 1 story house with a ramp to enter the home. assists patient with ADLs Transportation: DME/HHC: Patient has tub bench, BSC, lift chair, walker, wc, nebulizer, and scooter. Denied Home oxygen, nebulizer, cpap, bipap. Patient has had [facility] in the past and has been to TCU. Disposition Plan: SNF pending acceptance and precert. JENNIFER Updated. Tata GENTILE, RN, CM
--- NOTE | 2019-01-27 11:30 | CASEMGMT ---
Social Work Note RN CM. Eze Anna updated this worker that pt is agreeable to TCU at discharge. Pt is scheduled to have surgery on Sunday. SW placed a call to Desiree in TCU who states she is able to accept pt pending pre-cert and will submit for pre-cert once pt has surgery and works with PT/OT. Plan: TCU pending pre-cert Tata Kasper MILITARY TECHNOLOGY MANAGER, CLAY PREPARATION SUPERVISOR
[2019-01-27 11:36] LABS: Bedside Glucose 94 mg/dL (70-110)
[2019-01-27 12:01] LABS: Bedside Glucose 135 mg/dL (70-110)
--- NOTE | 2019-01-27 12:14 | PCM.CONS.GEN ---
Reason for Consult Date of Consultation: 01/27/19 Reason for Consultation: Right knee pain. REquested by Dr Judge History of Present Illness: The patient is a 73 year old M with multiple medical comorbidities including obesity diabetes presents to the emergency department yesterday after a fall. Patient mostly lives in his lift chair. However he was in the shower and fell. Patient notes that the left leg often times gives out on him. He is known to me. When he fell he had new onset right knee pain. Of note in his history patient was scheduled for left knee replacement due to pain and instability and eventual right knee revision of partial knee replacement a total knee replacement due to pain. He is had back surgery in the last 6 months and has continued to recover from that. He did have diabetic ulcers which required delay of his surgery which was supposed to have been done in November. Patient reports that the left knee continues to give out on him and is the reason for his fall yesterday. Patient has 10 out of 10 right knee pain with associated swelling and ecchymosis. Denies any open ulcers at this time. Denies any associated numbness and tingling. He is unable to bear weight. Pain is improved with ice, Dilaudid and immobilization. Past Medical History Past Medical History (Chronic Problems): Chronic Problems (Last Reviewed 01/26/19 @ 17:02 by iBb Judge DO) Weakness (Chronic) Chronic diastolic heart failure (Chronic) Lymphedema (Chronic) Diabetes mellitus (Chronic) GERD (gastroesophageal reflux disease) (Chronic) Hypothyroidism (Chronic) Lumbar spinal stenosis (Chronic) Osteoarthritis of knees, bilateral (Chronic) Depression (Chronic) Gout (Chronic) Neuropathic pain (Chronic) Low back pain (Chronic) Chronic venous insufficiency (Chronic) Dependent edema (Chronic) Debility (Chronic) Leg swelling (Chronic) EH (obstructive sleep apnea) (Chronic) Tricuspid valve insufficiency (Chronic) Venous stasis ulcer (Chronic) Obesity, morbid, BMI 40.0-49.9 (Chronic) Abnormal electrocardiogram (Chronic) Non-rheumatic tricuspid valve insufficiency (Chronic) Chronic diastolic (congestive) heart failure (Chronic) Hyperlipidemia (Chronic) Hypertension (Chronic) Chronic acquired lymphedema (Chronic) Medical History: Medical History (Last Reviewed 01/26/19 @ 17:02 by Bib Judge DO) Non-rheumatic tricuspid valve insufficiency (Chronic) I36.1 Chronic diastolic (congestive) heart failure (Chronic) I50.32 Hyperlipidemia (Chronic) E78.5 Hypertension (Chronic) I10 Asbestos exposure Z77.090 GERD (gastroesophageal reflux disease) K21.9 Hypothyroidism E03.9 Obstructive sleep apnea G47.33 Type 2 diabetes mellitus E11.9 Venous stasis dermatitis of right lower extremity (Inactive) I83.11 Allergies cocaine Allergy (Verified 09/11/18 13:52) Unknown atorvastatin calcium [From Lipitor] Adverse Reaction (Verified 09/11/18 13:52) Pain in joints haloperidol [From Haldol] Adverse Reaction (Verified 09/11/18 13:52) Other WENT CRAZY morphine Adverse Reaction (Verified 09/11/18 13:52) Other extremely aggitated oxycodone [From OxyIR] Adverse Reaction (Verified 09/11/18 13:52) Pain in joints extremely aggitated prednisone Adverse Reaction (Verified 09/11/18 13:52) ANXIOUS, INSOMNIA STERIODS Adverse Reaction (Uncoded 08/16/18 02:59) Other ANXIETY INSOMNIA Home Medications: Ambulatory Orders Medication Instructions Recorded Paroxetine HCl [Paxil] 40 mg PO DAILY 09/27/16 Potassium Chloride [K-Dur] 20 meq PO BID 09/27/16 Simvastatin [Zocor] 40 mg PO QHS 09/27/16 Sitagliptin Phosphate [Januvia] 100 mg PO DAILY 09/27/16 Torsemide [Demadex] 20 mg PO BID 09/27/16 traZODone [Desyrel] 50 mg PO QHS 09/27/16 Divalproex Sodium [Depakote] 500 mg PO BID 08/14/17 Allopurinol 100 mg PO DAILY 05/17/18 gabapentin 300 mg capsule 300 mg PO BID cap 07/17/18 levothyroxine 100 mcg capsule 112 mcg PO DAILY 07/17/18 Diclofenac Sodium 25 mg PO BID 08/16/18 Empagliflozin [Jardiance] 25 mg PO DAILY #30 tablet 09/09/18 Insulin Glargine [Lantus SoloStar 75 units SC QHS pen 09/09/18 Pen] Losartan Potassium 100 mg PO BID #60 tablet 09/09/18 Metoprolol(XL)Succ [Toprol Xl 12.5 mg PO BID #30 tablet 09/09/18 (Beta Romel)] Dulaglutide [Trulicity] 1.5 mg SQ QWEEK 01/26/19 Ergocalciferol (Vitamin D2) 50,000 unit PO QMONTH 01/26/19 [Vitamin D2] Surgical History: Surgical History (Last Reviewed 01/26/19 @ 17:02 by Bib Judge DO) Cochlear implant in place Z96.21 H/O shoulder surgery Z98.890 History of left heart catheterization Onset Date: 08/15/17 Z98.890 non obstructive coronary arteries History of right knee joint replacement Z96.651 Hx of cholecystectomy Z90.49 Previous back surgery Z98.890 Surgical History: cholecystectomy, total hip arthroplasty - Right, total knee arthroplasty - Right., - - Left shoulder surgery with rotator cuff repair; back surgery x 4; left cochlear implant. Lives: Spouse/ Significant Other Smoking Status: Former smoker Tobacco Use: Non-smoker Alcohol: None Drugs: None - *Family History Maternal Family History: Family History (Last Reviewed 01/26/19 @ 17:02 by Bib Judge DO) Mother Hypertension Father Hypertension History Items: Dementia, Hypertension Paternal Family History: Family History (Last Reviewed 01/26/19 @ 17:02 by Bib Judge DO) Mother Hypertension Father Hypertension History Items: Heart Disease - decased age 73, Hypertension Review of Systems Constitutional: Denies: Chills, Fever, Weight Change HEENT: Denies: Head Aches, Sinus Congestion, Sinus Drainage Cardiovascular: Denies: Chest Pain, Palpitations Respiratory: Denies: Cough, Shortness of breath at rest, Sputum production Gastrointestinal: Denies: Abdominal Pain, Nausea, Vomiting Genitourinary: Denies: Dysuria Musculoskeletal: Reports: Joint Pain - Patient has bilateral knee pain which is chronic. Increased on the right after the fall., Joint Tenderness Skin: Reports: Wounds - Patient has no open ulcerations of his feet at this time. There is one small eschar on the inside of the left great toe. Neurological: Denies: Numbness, Tingling, Focal weakness Psychiatric: Denies: Anxiety, Depression, Homicidal Ideations, Suicidal Ideations Hematologic/ Lymphatic: Denies: Easy Bruising, Easy Bleeding Patient Problems: Active and Suspected Problems (Last Reviewed 01/26/19 @ 17:02 by Bib Judge DO) Knee pain, right (Acute) Objective: Right knee radiographs and CT scan were reviewed showing a comminuted proximal tibia fracture that appears to be overall extra-articular however there is possibility for nondisplaced intra-articular involvement. - Physical Exam General: Alert, Oriented x3, Cooperative Extremities: - - Right lower extremity: Swelling and ecchymosis around the knee. Patient does have positive skin wrinkles. Sensations intact light touch saphenous, surface peroneal deep peroneal tibial and sural nerve distributions. Palpable DP pulse. Positive dorsiflexion EHL and plantar flexion. Pain with knee range of motion. Skin: - - Both feet are examined. No open sores or ulcerations. Vital Signs Temp Pulse Resp BP Pulse Ox 99.7 F H 74 18 118/56 L 93 01/27/19 09:35 01/27/19 09:40 01/27/19 09:35 01/27/19 09:35 01/27/19 09:35 Oxygen Delivery Method Room Air Weight: 267 lb 4 oz Body Mass Index (BMI) 40.6 Finger Stick Blood Glucose 166 Intake and Output for Last 24 Hours 01/25/19 01/26/19 01/27/19 22:59 23:59 23:59 Intake Total 800 / 800 Output Total 1150 / 1150 Balance -350 / -350 Laboratory Tests Past 24 Hrs 01/26/19 01/26/19 01/26/19 16:00 16:00 16:00 WBC 12.7 H RBC 4.66 Hgb 13.4 Hct 42.1 MCV 90.3 MCH 28.8 MCHC 31.8 L RDW 14.8 H RDW Differential 48.6 H Plt Count 280 MPV 10.0 Immature Gran % (Auto) 0.200 Neut % (Auto) 68.1 Lymph % (Auto) 20.9 [place] % (Auto) 9.4 Eos % (Auto) 1.2 Baso % (Auto) 0.2 Absolute Neuts (auto) 8.7 H Absolute Lymphs (auto) 2.65 Total Counted Not Reportable PT 14.1 INR 1.1 APTT 31.1 Sodium 139 Potassium 3.7 Chloride 103 Carbon Dioxide 28.0 Anion Gap 8 BUN 17 Creatinine 0.85 Estim Creat Clear Calc 74.88 Est GFR (MDRD) Af Amer 114 Est GFR (MDRD) Non-Af 94 BUN/Creatinine Ratio 20.1 H Glucose 138 H Calcium 8.4 L Vitamin D 25-Hydroxy 01/27/19 01/27/19 05:20 05:20 WBC RBC Hgb Hct MCV MCH MCHC RDW RDW Differential Plt Count MPV Immature Gran % (Auto) Neut % (Auto) Lymph % (Auto) [place] % (Auto) Eos % (Auto) Baso % (Auto) Absolute Neuts (auto) Absolute Lymphs (auto) Total Counted PT INR APTT Sodium 144 Potassium 4.3 Chloride 105 Carbon Dioxide 28.0 Anion Gap 11 BUN 20 H Creatinine 0.88 Estim Creat Clear Calc 72.33 Est GFR (MDRD) Af Amer 109 Est GFR (MDRD) Non-Af 90 BUN/Creatinine Ratio 22.7 H Glucose 84 Calcium 8.1 L Vitamin D 25-Hydroxy 20.6 L POC Glucose 01/27/19 01/27/19 01/26/19 11:54 05:35 21:46 POC Glucose 135 H 94 121 H 01/26/19 17:57 POC Glucose 99 Assessment/Plan All Active Problems (Last Reviewed 01/26/19 @ 17:02 by Bib Judge DO) Knee pain, right (Acute) Preop cardiovascular exam (Acute) Skin tear of right lower leg without complication (Acute) Cellulitis (Resolved) Hypokalemia (Resolved) Right knee periprosthetic proximal tibia metaphyseal fracture. Natural history of the disease process and treatment options were discussed the patient. At this time his case was also reviewed in the office. Based on previous radiographs and residual lateral joint space as well as appearance of stable implants on x-rays and comminution of metaphyseal bone which would be needed to support a total knee revision I recommended open reduction internal fixation of the proximal tibia on the right. Risks and benefits of the procedure were discussed the patient including but not limited to blood loss, DVTs, PEs, neurovascular damage, infection, general risk of anesthesia including loss of life, delayed healing, nonunion and hardware failure. 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 Patient understands that with his diabetes and previous history of diabetic ulcerations he is at high risk for infection. We will order 2 g of Ancef on-call to the operating room. Plan is for surgery the on Sunday the . In the meantime will continue with ice and elevation aggressively to help reduce the swelling. We will continue to monitor for swelling. Patient will have antibiotics on-call to the operating room and be n.p.o. after midnight the day of surgery. [facility] Office:
[2019-01-27 14:40] VITALS: BP 123/63; PULSE 69; RESP 16; TEMP 37; O2SAT 94
--- NOTE | 2019-01-27 15:36 | SUR.HOLD ---
patient is sleeping at both times when visit is attempted
[2019-01-27 16:40] LABS: Bedside Glucose 120 mg/dL (70-110)
[2019-01-27 20:08] VITALS: BP 110/53; PULSE 64; RESP 16; TEMP 36.7; O2SAT 94
[2019-01-27] MEDS: traZODone 50 MG Tablet PO (22:41)
[2019-01-27 22:42] VITALS: PULSE 64
[2019-01-27 22:50] LABS: Bedside Glucose 190 mg/dL (70-110)
[2019-01-28] VITALS (9 sets, daily range): BP systolic 118–138; BP diastolic 51–82; PULSE 57–72; RESP 16–18; TEMP 36.4–37.1; O2SAT 87–98
[2019-01-28] MEDS: HYDROmorphone 2 MG TABLET PO (02:57)
[2019-01-28] MEDS: Acetaminophen 325 MG Tablet 650 MG PO ×2 (03:56→16:42)
[2019-01-28] MEDS: Levothyroxine 112 MCG Tablet PO (06:15)
[2019-01-28 06:40] LABS: Bedside Glucose 111 mg/dL (70-110)
--- NOTE | 2019-01-28 08:53 | PN_ITS ---
Patient Problems: Active and Suspected Problems (Last Reviewed 01/26/19 @ 17:02 by Bib Judge DO) Knee pain, right (Acute) Subjective: Seen still complains of discomfort in the right knee. Was seen by Dr. Rutledge on 01/27/2019 plan is for patient to undergo open reduction internal fixation of the proximal tibia on the right on 01/29/2019 Objective: GENERAL: cooperative HEENT: Atraumatic; moist oral mucosa EYES; Anicteric, Normal Conjunctiva NECK; supple, normal thyroid, no distended JVD. RESPIRATORY: Diminished to auscultation bilaterally, CARDIOVASCULAR: Regular S1 S2, no audible murmurs GI: soft, non-tender, normoactive bowel sounds, : No Renal angle tenderness; EXTREMITIES: No edema, no clubbing, no cyanosis. MUSCULOSKELETAL right knee immobilized NEURO: Awake; no lateralizing signs. SKIN: No Rash PSYCH; Normal affect Vitals/I&O's: Vital Signs Temp Pulse Resp BP Pulse Ox 98.1 F 64 18 138/66 H 94 01/28/19 02:01 01/28/19 02:01 01/28/19 02:01 01/28/19 02:01 01/28/19 02:01 Oxygen Delivery Method Room Air Weight: 121.223 kg Body Mass Index (BMI) 40.6 Finger Stick Blood Glucose 166 Intake and Output for Last 24 Hours 01/26/19 01/27/19 01/28/19 23:59 23:59 23:59 Intake Total 1200 / 1200 1200 / 1200 Output Total 1400 / 1400 100 / 100 Balance -200 / -200 1100 / 1100 Laboratory Results 01/27/19 05:20: Vitamin D 25-Hydroxy 20.6 L 01/27/19 05:35: POC Glucose 94 01/27/19 11:54: POC Glucose 135 H 01/27/19 16:24: POC Glucose 120 H 01/27/19 22:41: POC Glucose 190 H 01/28/19 06:14: POC Glucose 111 H Current Medications Acetaminophen (Tylenol) 650 mg PO Q6H PRN PRN PRN Reason: Mild Pain (1-3)/Temp > 100.7 F Last Admin: 01/28/19 03:56 Dose: 650 mg Allopurinol (Zyloprim) 100 mg PO DAILY [facility] Last Admin: 01/27/19 09:40 Dose: 100 mg Dextrose (D50w Syringe) 0 gm IV X1 PRN; Protocol PRN Reason: Hypoglycemia Diclofenac Sodium (Voltaren) 50 mg PO BIDCM [facility] Last Admin: 01/27/19 16:27 Dose: 50 mg Divalproex Sodium (Depakote Er) 500 mg PO BID [facility] Last Admin: 01/27/19 22:41 Dose: 500 mg Enoxaparin Sodium (Lovenox) 40 mg SC DAILY@1000 [facility] Last Admin: 01/27/19 09:40 Dose: 40 mg Ergocalciferol (Vitamin D) 50,000 unit PO QMONTH [facility] Furosemide (Lasix) 40 mg PO BIDLX [facility] Last Admin: 01/27/19 16:27 Dose: 40 mg Gabapentin (Neurontin) 300 mg PO BID [facility] Last Admin: 01/27/19 22:41 Dose: 300 mg Glucagon () 1 mg IM .X1 PRN PRN Reason: Hypoglycemia Hydromorphone HCl (Dilaudid Inj) 0.5 mg IV Q4H PRN PRN PRN Reason: breakthough pain Hydromorphone HCl (Dilaudid Tablet) 2 mg PO Q4H PRN PRN PRN Reason: SEVERE PAIN (6-10) Last Admin: 01/28/19 02:57 Dose: 2 mg Insulin Glargine (Lantus (Bkc)) 75 units SC QHS [facility] Last Admin: 01/27/19 22:41 Dose: 75 units Insulin Human Lispro (Humalog Kwikpen (Bkc)) 0 unit SQ TIDAC [facility]; Protocol Last Admin: 01/28/19 06:15 Dose: Not Given Levothyroxine Sodium (Synthroid) 112 mcg PO DAILY@0600 [facility] Last Admin: 01/28/19 06:15 Dose: 112 mcg Linagliptin (Tradjenta) 5 mg PO DAILY [facility] Last Admin: 01/27/19 09:39 Dose: 5 mg Losartan Potassium (Cozaar) 100 mg PO BID [facility] Last Admin: 01/27/19 22:41 Dose: 100 mg Magnesium Hydroxide (Milk Of Magnesia) 30 ml PO DAILY PRN PRN PRN Reason: Constipation Metoprolol Succinate (Toprol Xl (Beta Romel)) 12.5 mg PO BID [facility] Last Admin: 01/27/19 22:42 Dose: 12.5 mg Ondansetron HCl (Zofran) 4 mg IV Q8H PRN PRN PRN Reason: NAUSEA Paroxetine HCl (Paxil) 40 mg PO DAILY [facility] Last Admin: 01/27/19 09:39 Dose: 40 mg Potassium Chloride (K-Dur) 20 meq PO BIDCM [facility] Last Admin: 01/27/19 16:26 Dose: 20 meq Simvastatin (Zocor) 40 mg PO QHS [facility] Last Admin: 01/27/19 22:41 Dose: 40 mg Sodium Chloride () 5 - 15 ml IV UD PRN PRN Reason: SALINE FLUSH Trazodone HCl (Desyrel) 50 mg PO QHS [facility] Last Admin: 01/27/19 22:41 Dose: 50 mg Medical Necessity - Tobacco Use Smoking Status: Former smoker Tobacco Use: Non-smoker Assessment/Plan All Active Problems (Last Reviewed 01/26/19 @ 17:02 by Bib Judge DO) Knee pain, right (Acute) Preop cardiovascular exam (Acute) Skin tear of right lower leg without complication (Acute) Cellulitis (Resolved) Hypokalemia (Resolved) Patient is a 73-year-old gentleman admitted following a fall imaging studies on admission demonstrated Proximal tibia and fibular fractures. Immobilized and admitted to regular nursing floor with consultation placed to orthopedic surgery 1. Acute mechanical fall with resultant Proximal tibia and fibular fractures. Immobilized and admitted to regular nursing floor with consultation placed to orthopedic surgery. Was seen by Dr. Rutledge on 01/27/2019 plan is for patient to undergo open reduction internal fixation of the proximal tibia on the right on 01/29/2019 2. Diabetes mellitus type 2 did continue with patient home regimen also placed on Accu-Cheks before meals and at bedtime cover with sliding scale insulin 3. Dyslipidemia-patient is on statin therapy, continued at home dose 4. Hypertension-blood pressure controlled, home medications continued with dose adjustment as needed 5. Hypothyroidism-patient is on levothyroxine home dose continued 6. Gout patient is on allopurinol next 7. History of cochlear implant 8. Obstructive sleep apnea 9. GERD 10. Spinal lumbar stenosis 11. Generalized osteoarthritis 12. Morbid obesity with BMI of 40.6 13. DVT prophylaxis; SC Lovenox Active Medications Acetaminophen (Tylenol) 650 mg PO Q6H PRN PRN PRN Reason: Mild Pain (1-3)/Temp > 100.7 F Last Admin: 01/26/19 21:37 Dose: 650 mg Allopurinol (Zyloprim) 100 mg PO DAILY [facility] Dextrose (D50w Syringe) 0 gm IV X1 PRN; Protocol PRN Reason: Hypoglycemia Diclofenac Sodium (Voltaren) 50 mg PO BIDCM [facility] Divalproex Sodium (Depakote Er) 500 mg PO BID [facility] Last Admin: 01/26/19 21:36 Dose: 500 mg Enoxaparin Sodium (Lovenox) 40 mg SC DAILY@1000 [facility] Ergocalciferol (Vitamin D) 50,000 unit PO QMONTH [facility] Furosemide (Lasix) 40 mg PO BIDLX [facility] Last Admin: 01/26/19 18:59 Dose: 40 mg Gabapentin (Neurontin) 300 mg PO BID [facility] Last Admin: 01/26/19 21:37 Dose: 300 mg Glucagon () 1 mg IM .X1 PRN PRN Reason: Hypoglycemia Hydromorphone HCl (Dilaudid Inj) 0.5 mg IV Q4H PRN PRN PRN Reason: breakthough pain Hydromorphone HCl (Dilaudid Tablet) 2 mg PO Q4H PRN PRN PRN Reason: SEVERE PAIN (6-08/28) Last Admin: 01/26/19 18:58 Dose: 2 mg Insulin Glargine (Lantus (Bkc)) 75 units SC QHS [facility] Last Admin: 01/26/19 21:47 Dose: 75 units Insulin Human Lispro (Humalog Kwikpen (Bkc)) 0 unit SQ TIDAC [facility]; Protocol Last Admin: 01/27/19 05:38 Dose: Not Given Levothyroxine Sodium (Synthroid) 112 mcg PO DAILY@0600 [facility] Last Admin: 01/27/19 05:31 Dose: 112 mcg Linagliptin (Tradjenta) 5 mg PO DAILY [facility] Losartan Potassium (Cozaar) 100 mg PO BID [facility] Last Admin: 01/26/19 21:37 Dose: 100 mg Magnesium Hydroxide (Milk Of Magnesia) 30 ml PO DAILY PRN PRN PRN Reason: Constipation Metoprolol Succinate (Toprol Xl (Beta Romel)) 12.5 mg PO BID [facility] Last Admin: 01/26/19 21:36 Dose: 12.5 mg Ondansetron HCl (Zofran) 4 mg IV Q8H PRN PRN PRN Reason: NAUSEA Paroxetine HCl (Paxil) 40 mg PO DAILY [facility] Potassium Chloride (K-Dur) 20 meq PO BIDCM [facility] Simvastatin (Zocor) 40 mg PO QHS [facility] Last Admin: 01/26/19 21:42 Dose: 40 mg Sodium Chloride () 5 - 15 ml IV UD PRN PRN Reason: SALINE FLUSH Trazodone HCl (Desyrel) 50 mg PO QHS [facility] Last Admin: 01/26/19 21:37 Dose: 50 mg Clinical Impression(s) from Imaging Studies Tibia/Fibula X-Ray 01/26/19 14:56 IMPRESSION: 1. Proximal tibia and fibular fractures. 2. Medial compartment hemiarthroplasty. Electronically Signed: Jose Wisdom MD at 16:22 EDT , Service support , Code Visit Inpatient E&M: 90782 Subs Hosp L2
[2019-01-28] MEDS: LINAGLIPTIN 5 MG TABLET PO (09:08)
[2019-01-28] MEDS: Paroxetine 20 MG Tablet 40 MG PO (09:08)
[2019-01-28] MEDS: Metoprolol(XL)Succ 25 MG Tablet 12.5 MG PO ×2 (09:08→21:47)
[2019-01-28] MEDS: Empagliflozin 25 MG Tablet PO (09:08)
[2019-01-28] MEDS: Furosemide 40 MG Tablet PO ×2 (09:08→16:42)
[2019-01-28] MEDS: Enoxaparin 40 MG/0.4 ML Syringe SC (09:09)
[2019-01-28] MEDS: Losartan Potassium 100 MG Tablet PO ×2 (09:09→21:47)
[2019-01-28] MEDS: Gabapentin 300 MG Capsule PO ×2 (09:09→21:46)
[2019-01-28] MEDS: Divalproex (ER) 500 MG Tablet PO ×2 (09:09→21:46)
[2019-01-28] MEDS: Allopurinol 100 MG Tablet PO (09:09)
[2019-01-28 12:30] LABS: Bedside Glucose 125 mg/dL (70-110)
--- NOTE | 2019-01-28 13:17 | CASEMGMT ---
Social Work Note SW in to update pt on acceptance to TCU pending pre-cert. Pt currently sleeping. Pt's Mayda present in room. SW updated Stonega on acceptance to TCU pending pre-cert. 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
--- NOTE | 2019-01-28 15:50 | CHAPLAIN ---
Type of Pastoral Visit _x__ Initial Visit ___ Follow-up Visit ___ On-call Visit ___ General Patient Visit ___ Spiritual Assessment ___ Family Conference ___ Bereavement ___ Rapid Response ___ Code Blue ___ Other (describe below) Pastoral Care Referral From _x__ Patient ___ Family ___ Nurse ___ Physician ___ Import Specialist ___ Assisted Living Director ___ Other (describe below) Sacrament/Intervention _x__ Active listening ___ Anointing ___ Mormonism ___ Bereavement ___ Communion ___ Scarlett exploration ___ _x__ Life review _x__ Prayer ___ Reconciliation ___ Sacrament of Sick _x__ Supportive presence ___ Wedding ___ Other (describe below) Pastoral Comments
[2019-01-28 16:51] LABS: Bedside Glucose 179 mg/dL (70-110)
[2019-01-28] MEDS: traZODone 50 MG Tablet PO (21:46)
[2019-01-28 22:26] LABS: Bedside Glucose 126 mg/dL (70-110)
[2019-01-28] MEDS: Menthol/Lanolin/Calamine/Znox 113 GM Tube 1 APPLIC TOPICAL (22:51)
[2019-01-28] MEDS: 0.9% NaCl Peripheral Flush Adult/Peds IV (23:00)
[2019-01-29] VITALS (15 sets, daily range): BP systolic 103–173; BP diastolic 48–74; PULSE 64–70; RESP 16–18; TEMP 36.2–37.1; O2SAT 95–100; BMI 40.6
[2019-01-29 06:00] LABS: International Normalized Ratio 1.1; Prothrombin Time (Protime)PT. 14.4 SECONDS (11.7-14.9)
[2019-01-29 06:01] LABS: Hematocrit 36.5 % (40-54); Hemoglobin 11.5 g/dl (13.0-16.5); Mean Corp Hgb Conc 31.5 g/gl (32-36); Mean Corpuscular Hgb 29.8 pg (27.0-32.0); Mean Corpuscular Volume 94.6 fL (80-94); Mean Platelet Vol. 10.5 fl (6.2-12.0); Platelet Count 283 K/mm3 (150-450); RBC Distribution Width CV 14.9 % (11.6-14.6); RBC Distribution Width SD 49.5 fl (35.1-43.9); Red Blood Count 3.86 M/mm3 (4.6-6.2); White Blood Count 9.5 K/mm3 (4.4-11.0)
[2019-01-29 06:12] LABS: Scan Indicated on CBC? Y/N NO
[2019-01-29] MEDS: Levothyroxine 112 MCG Tablet PO (06:27)
[2019-01-29 06:35] LABS: Anion Gap 9 (5-15); BUN 22 mg/dL (7-18); Calcium,Total 8.4 mg/dL (8.5-10.1); Chloride 105 mmol/L (98-107); Creatinine, Serum 0.82 mg/dL (0.70-1.30); EST Glomerular Filtration Rate 98 mL/min (>60); Est Glom Filt Rate - Afr Amer 119 mL/min (>60); Estimated Creatinine Clearance 77.62 ml/min; Glucose 99 mg/dL (74-106); Magnesium 2.7 mg/dL (1.6-2.6); Potassium 3.9 mmol/L (3.5-5.1); Sodium Level 146 mmol/L (136-145)
[2019-01-29 06:46] LABS: Bedside Glucose 113 mg/dL (70-110)
[2019-01-29 08:14] LABS: Hemoglobin A1c 6.8 % (4.2-6.3)
[2019-01-29] MEDS: Metoprolol(XL)Succ 25 MG Tablet 12.5 MG PO ×2 (09:17→22:44)
[2019-01-29] MEDS: Losartan Potassium 100 MG Tablet PO ×2 (09:17→22:44)
--- NOTE | 2019-01-29 09:33 | PCM.PN.HOSP ---
Patient Problems: Active and Suspected Problems (Last Reviewed 01/26/19 @ 17:02 by Bib Judge DO) Knee pain, right (Acute) Subjective: Patient seen complains of discomfort in the right knee. He is scheduled to undergo ORIF later this afternoon blood pressure elevated this a.m. his a.m. medications have been given we will continue to monitor Vital Signs - 24 hr Temp Pulse Resp BP BP Pulse Ox 01/29/19 09:17 70 01/29/19 09:00 98.7 F 70 18 173/74 H 99 01/29/19 02:28 97.4 F L 64 18 146/59 H 99 01/28/19 21:47 60 01/28/19 20:12 98 01/28/19 20:09 97.9 F 57 L 16 132/72 H 98 01/28/19 14:30 97.6 F L 58 L 16 118/59 L 96 01/28/19 12:11 57 L 95 01/28/19 12:05 59 L 16 128/51 H 87 Objective: GENERAL: cooperative HEENT: Atraumatic; moist oral mucosa EYES; Anicteric, Normal Conjunctiva NECK; supple, normal thyroid, no distended JVD. RESPIRATORY: Diminished to auscultation bilaterally, CARDIOVASCULAR: Regular S1 S2, no audible murmurs GI: soft, non-tender, normoactive bowel sounds, : No Renal angle tenderness; EXTREMITIES: No edema, no clubbing, no cyanosis. MUSCULOSKELETAL right knee immobilized NEURO: Awake; no lateralizing signs. SKIN: No Rash PSYCH; Normal affect Vitals/I&O's: Vital Signs Temp Pulse Resp BP Pulse Ox 98.7 F 70 18 173/74 H 99 01/29/19 09:00 01/29/19 09:17 01/29/19 09:00 01/29/19 09:00 01/29/19 09:00 Oxygen Flow Rate (L/min) 2 Oxygen Delivery Method Room Air Weight: 121.223 kg Body Mass Index (BMI) 40.6 Finger Stick Blood Glucose 166 Intake and Output for Last 24 Hours 01/27/19 01/28/19 01/29/19 23:59 23:59 23:59 Intake Total 1200 / 1200 2000 / 2000 600 / 600 Output Total 1400 / 1400 250 / 250 400 / 400 Balance -200 / -200 1750 / 1750 200 / 200 Laboratory Results 01/28/19 12:01: POC Glucose 125 H 01/28/19 16:43: POC Glucose 179 H 01/28/19 21:48: POC Glucose 126 H 01/29/19 05:14: WBC 9.5, RBC 3.86 L, Hgb 11.5 L, Hct 36.5 L, MCV 94.6 H, MCH 29.8, MCHC 31.5 L, RDW 14.9 H, RDW Differential 49.5 H, Plt Count 283, MPV 10.5 01/29/19 05:14: Sodium 146 H, Potassium 3.9, Chloride 105, Carbon Dioxide 32.0, Anion Gap 9, BUN 22 H, Creatinine 0.82, Estim Creat Clear Calc 77.62, Est GFR (MDRD) Af Amer 119, Est GFR (MDRD) Non-Af 98, BUN/Creatinine Ratio 27.0 H, Glucose 99, Calcium 8.4 L, Magnesium 2.7 H, TSH 1.20 01/29/19 05:14: PT 14.4, INR 1.1 01/29/19 05:14: Hemoglobin A1c 6.8 H 01/29/19 06:31: POC Glucose 113 H Current Medications Acetaminophen (Tylenol) 650 mg PO Q6H PRN PRN PRN Reason: Mild Pain (1-3)/Temp > 100.7 F Last Admin: 01/28/19 16:42 Dose: 650 mg Allopurinol (Zyloprim) 100 mg PO DAILY [facility] Last Admin: 01/28/19 09:09 Dose: 100 mg Calamine/Phenol (Calmoseptine Ointment) 1 applic TOPICAL 4X/DAY [facility]; Protocol Last Admin: 01/28/19 22:51 Dose: 1 applicatio Dextrose (D50w Syringe) 0 gm IV X1 PRN; Protocol PRN Reason: Hypoglycemia [facility] Last Admin: 01/28/19 16:42 Dose: 50 mg Divalproex Sodium (Depakote Er) 500 mg PO BID [facility] Last Admin: 01/28/19 21:46 Dose: 500 mg Enoxaparin Sodium (Lovenox) 40 mg SC DAILY@1000 [facility] Last Admin: 01/28/19 09:09 Dose: 40 mg Ergocalciferol (Vitamin D) 50,000 unit PO QMONTH [facility] Furosemide (Lasix) 40 mg PO BIDLX [facility] Last Admin: 01/28/19 16:42 Dose: 40 mg Gabapentin (Neurontin) 300 mg PO BID [facility] Last Admin: 01/28/19 21:46 Dose: 300 mg Glucagon () 1 mg IM .X1 PRN PRN Reason: Hypoglycemia Hydromorphone HCl (Dilaudid Inj) 0.5 mg IV Q4H PRN PRN PRN Reason: breakthough pain Hydromorphone HCl (Dilaudid Tablet) 2 mg PO Q4H PRN PRN PRN Reason: SEVERE PAIN (6-1010) Last Admin: 01/28/19 02:57 Dose: 2 mg Cefazolin Sodium 2 gm/ Sodium (Chloride) 110 mls @ 150 mls/hr IV PREOP ONE Stop: 01/29/19 15:38 Insulin Glargine (Lantus (Bkc)) 75 units SC QHS [facility] Last Admin: 01/28/19 21:48 Dose: 75 units Insulin Human Lispro (Humalog Kwikpen (Bkc)) 0 unit SQ TIDAC [facility]; Protocol Last Admin: 01/29/19 06:32 Dose: Not Given Levothyroxine Sodium (Synthroid) 112 mcg PO DAILY@0600 [facility] Last Admin: 01/29/19 06:27 Dose: 112 mcg Linagliptin (Tradjenta) 5 mg PO DAILY [facility] Last Admin: 01/28/19 09:08 Dose: 5 mg Losartan Potassium (Cozaar) 100 mg PO BID [facility] Last Admin: 01/29/19 09:17 Dose: 100 mg Magnesium Hydroxide (Milk Of Magnesia) 30 ml PO DAILY PRN PRN PRN Reason: Constipation Metoprolol Succinate (Toprol Xl (Beta Romel)) 12.5 mg PO BID [facility] Last Admin: 01/29/19 09:17 Dose: 12.5 mg Ondansetron HCl (Zofran) 4 mg IV Q8H PRN PRN PRN Reason: NAUSEA Paroxetine HCl (Paxil) 40 mg PO DAILY [facility] Last Admin: 01/28/19 09:08 Dose: 40 mg Potassium [facility] ([facility]Dur) [facility] Last Admin: 01/28/19 16:42 Dose: 20 meq Simvastatin (Zocor) 40 mg PO QHS [facility] Last Admin: 01/28/19 21:46 Dose: 40 mg Sodium Chloride () 5 - 15 ml IV UD PRN PRN Reason: SALINE FLUSH Last Admin: 01/28/19 23:00 Dose: 10 ml Trazodone HCl (Desyrel) 50 mg PO QHS [facility] Last Admin: 01/28/19 21:46 Dose: 50 mg Medical Necessity - Tobacco Use Smoking Status: Former smoker Tobacco Use: Non-smoker Assessment/Plan All Active Problems (Last Reviewed 01/26/19 @ 17:02 by Bib Judge, ) Knee pain, right (Acute) Preop cardiovascular exam (Acute) Skin tear of right lower leg without complication (Acute) Cellulitis (Resolved) Hypokalemia (Resolved) Patient is a 73-year-old gentleman admitted following a fall imaging studies on admission demonstrated Proximal tibia and fibular fractures. Immobilized and admitted to regular nursing floor with consultation placed to orthopedic surgery 1. Acute mechanical fall with resultant Proximal tibia and fibular fractures. Immobilized and admitted to regular nursing floor with consultation placed to orthopedic surgery. Was seen by Dr. Rutledge on 01/27/2019 plan is for patient to undergo open reduction internal fixation of the proximal tibia on the right on 01/29/2019 2. Accelerated hypertension -blood pressure not controlled; a.m. medications given also added as needed hydralazine 3. Diabetes mellitus type 2 did continue with patient home regimen also placed on Accu-Cheks before meals and at bedtime cover with sliding scale insulin 4. Dyslipidemia-patient is on statin therapy, continued at home dose 5. Hypothyroidism-patient is on levothyroxine home dose continued 6. Gout patient is on allopurinol next 7. History of cochlear implant 8. Obstructive sleep apnea 9. GERD 10. Spinal lumbar stenosis 11. Generalized osteoarthritis 12. Morbid obesity with BMI of 40.6 13. DVT prophylaxis; SC Lovenox Advance planning; did discuss with the patient and regarding advanced directives as well as CODE STATUS prior to his procedure. Did explain the various scenarios involved ( FULL CODE, DNR CCA, DNR CCA with no intubation, and DNR CC and what each meant) patient elected to remain FULL CODE. Order was placed. Time spent on discussion 18 minutes. Code Visit Inpatient E&M: 65562 Subs Hosp L3 Procedures: 51444 Advncd Care Plan 30 Min
--- NOTE | 2019-01-29 09:39 | PN_ITS ---
Patient Problems: Active and Suspected Problems (Last Reviewed 01/26/19 @ 17:02 by Bib Judge DO) Knee pain, right (Acute) Subjective: Patient seen complains of discomfort in the right knee. He is scheduled to undergo ORIF later this afternoon blood pressure elevated this a.m. his a.m. medications have been given we will continue to monitor Vital Signs - 24 hr Temp Pulse Resp BP BP Pulse Ox 01/29/19 09:17 70 01/29/19 09:00 98.7 F 70 18 173/74 H 99 01/29/19 02:28 97.4 F L 64 18 146/59 H 99 01/28/19 21:47 60 01/28/19 20:12 98 01/28/19 20:09 97.9 F 57 L 16 132/72 H 98 01/28/19 14:30 97.6 F L 58 L 16 118/59 L 96 01/28/19 12:11 57 L 95 01/28/19 12:05 59 L 16 128/51 H 87 Objective: GENERAL: cooperative HEENT: Atraumatic; moist oral mucosa EYES; Anicteric, Normal Conjunctiva NECK; supple, normal thyroid, no distended JVD. RESPIRATORY: Diminished to auscultation bilaterally, CARDIOVASCULAR: Regular S1 S2, no audible murmurs GI: soft, non-tender, normoactive bowel sounds, : No Renal angle tenderness; EXTREMITIES: No edema, no clubbing, no cyanosis. MUSCULOSKELETAL right knee immobilized NEURO: Awake; no lateralizing signs. SKIN: No Rash PSYCH; Normal affect Vitals/I&O's: Vital Signs Temp Pulse Resp BP Pulse Ox 98.7 F 70 18 173/74 H 99 01/29/19 09:00 01/29/19 09:17 01/29/19 09:00 01/29/19 09:00 01/29/19 09:00 Oxygen Flow Rate (L/min) 2 Oxygen Delivery Method Room Air Weight: 121.223 kg Body Mass Index (BMI) 40.6 Finger Stick Blood Glucose 166 Intake and Output for Last 24 Hours 01/27/19 01/28/19 01/29/19 23:59 23:59 23:59 Intake Total 1200 / 1200 2000 / 2000 600 / 600 Output Total 1400 / 1400 250 / 250 400 / 400 Balance -200 / -200 1750 / 1750 200 / 200 Laboratory Results 01/28/19 12:01: POC Glucose 125 H 01/28/19 16:43: POC Glucose 179 H 01/28/19 21:48: POC Glucose 126 H 01/29/19 05:14: WBC 9.5, RBC 3.86 L, Hgb 11.5 L, Hct 36.5 L, MCV 94.6 H, MCH 29.8, MCHC 31.5 L, RDW 14.9 H, RDW Differential 49.5 H, Plt Count 283, MPV 10.5 01/29/19 05:14: Sodium 146 H, Potassium 3.9, Chloride 105, Carbon Dioxide 32.0, Anion Gap 9, BUN 22 H, Creatinine 0.82, Estim Creat Clear Calc 77.62, Est GFR (MDRD) Af Amer 119, Est GFR (MDRD) Non-Af 98, BUN/Creatinine Ratio 27.0 H, Glucose 99, Calcium 8.4 L, Magnesium 2.7 H, TSH 1.20 01/29/19 05:14: PT 14.4, INR 1.1 01/29/19 05:14: Hemoglobin A1c 6.8 H 01/29/19 06:31: POC Glucose 113 H Current Medications Acetaminophen (Tylenol) 650 mg PO Q6H PRN PRN PRN Reason: Mild Pain (1-3)/Temp > 100.7 F Last Admin: 01/28/19 16:42 Dose: 650 mg Allopurinol (Zyloprim) 100 mg PO DAILY [facility] Last Admin: 01/28/19 09:09 Dose: 100 mg Calamine/Phenol (Calmoseptine Ointment) 1 applic TOPICAL 4X/DAY [facility]; Protocol Last Admin: 01/28/19 22:51 Dose: 1 applicatio Dextrose (D50w Syringe) 0 gm IV X1 PRN; Protocol PRN Reason: Hypoglycemia [facility]iclofenac Sodium ([facility]ren) [facility] Last Admin: 01/28/19 16:42 Dose: 50 mg Divalproex Sodium (Depakote Er) 500 mg PO BID [facility] Last Admin: 01/28/19 21:46 Dose: 500 mg Enoxaparin Sodium (Lovenox) 40 mg SC DAILY@1000 [facility] Last Admin: 01/28/19 09:09 Dose: 40 mg Ergocalciferol (Vitamin D) 50,000 unit PO QMONTH [facility] Furosemide (Lasix) 40 mg PO BIDLX [facility] Last Admin: 01/28/19 16:42 Dose: 40 mg Gabapentin (Neurontin) 300 mg PO BID [facility] Last Admin: 01/28/19 21:46 Dose: 300 mg Glucagon () 1 mg IM .X1 PRN PRN Reason: Hypoglycemia Hydromorphone HCl (Dilaudid Inj) 0.5 mg IV Q4H PRN PRN PRN Reason: breakthough pain Hydromorphone HCl (Dilaudid Tablet) 2 mg PO Q4H PRN PRN PRN Reason: SEVERE PAIN (6-1010) Last Admin: 01/28/19 02:57 Dose: 2 mg Cefazolin Sodium 2 gm/ Sodium (Chloride) 110 mls @ 150 mls/hr IV PREOP ONE Stop: 01/29/19 15:38 Insulin Glargine (Lantus (Bkc)) 75 units SC QHS [facility] Last Admin: 01/28/19 21:48 Dose: 75 units Insulin Human Lispro (Humalog Kwikpen (Bkc)) 0 unit SQ TIDAC [facility]; Protocol Last Admin: 01/29/19 06:32 Dose: Not Given Levothyroxine Sodium (Synthroid) 112 mcg PO DAILY@0600 [facility] Last Admin: 01/29/19 06:27 Dose: 112 mcg Linagliptin (Tradjenta) 5 mg PO DAILY [facility] Last Admin: 01/28/19 09:08 Dose: 5 mg Losartan Potassium (Cozaar) 100 mg PO BID [facility] Last Admin: 01/29/19 09:17 Dose: 100 mg Magnesium Hydroxide (Milk Of Magnesia) 30 ml PO DAILY PRN PRN PRN Reason: Constipation Metoprolol Succinate (Toprol Xl (Beta Romel)) 12.5 mg PO BID [facility] Last Admin: 01/29/19 09:17 Dose: 12.5 mg Ondansetron HCl (Zofran) 4 mg IV Q8H PRN PRN PRN Reason: NAUSEA Paroxetine HCl (Paxil) 40 mg PO DAILY [facility] Last Admin: 01/28/19 09:08 Dose: 40 mg Potassium Chloride (K-Dur) 20 meq [facility] Last Admin: 01/28/19 16:42 Dose: 20 meq Simvastatin (Zocor) 40 mg PO QHS [facility] Last Admin: 01/28/19 21:46 Dose: 40 mg Sodium Chloride () 5 - 15 ml IV UD PRN PRN Reason: SALINE FLUSH Last Admin: 01/28/19 23:00 Dose: 10 ml Trazodone HCl (Desyrel) 50 mg PO QHS [facility] Last Admin: 01/28/19 21:46 Dose: 50 mg Medical Necessity - Tobacco Use Smoking Status: Former smoker Tobacco Use: Non-smoker Assessment/Plan All Active Problems (Last Reviewed 01/26/19 @ 17:02 by Bib Judge, ) Knee pain, right (Acute) Preop cardiovascular exam (Acute) Skin tear of right lower leg without complication (Acute) Cellulitis (Resolved) Hypokalemia (Resolved) Patient is a 73-year-old gentleman admitted following a fall imaging studies on admission demonstrated Proximal tibia and fibular fractures. Immobilized and admitted to regular nursing floor with consultation placed to orthopedic surgery 1. Acute mechanical fall with resultant Proximal tibia and fibular fractures. Immobilized and admitted to regular nursing floor with consultation placed to orthopedic surgery. Was seen by Dr. Rutledge on 01/27/2019 plan is for patient to undergo open reduction internal fixation of the proximal tibia on the right on 01/29/2019 2. Accelerated hypertension -blood pressure not controlled; a.m. medications given also added as needed hydralazine 3. Diabetes mellitus type 2 did continue with patient home regimen also placed on Accu-Cheks before meals and at bedtime cover with sliding scale insulin 4. Dyslipidemia-patient is on statin therapy, continued at home dose 5. Hypothyroidism-patient is on levothyroxine home dose continued 6. Gout patient is on allopurinol next 7. History of cochlear implant 8. Obstructive sleep apnea 9. GERD 10. Spinal lumbar stenosis 11. Generalized osteoarthritis 12. Morbid obesity with BMI of 40.6 13. DVT prophylaxis; SC Lovenox Advance planning; did discuss with the patient and regarding advanced directives as well as CODE STATUS prior to his procedure. Did explain the various scenarios involved ( FULL CODE, DNR CCA, DNR CCA with no intubation, and DNR CC and what each meant) patient elected to remain FULL CODE. Order was placed. Time spent on discussion 18 minutes. Code Visit Inpatient E&M: 86826 Subs Hosp L3 Procedures: 42827 Advncd Care Plan 30 Min
[2019-01-29 11:15] LABS: Bedside Glucose 102 mg/dL (70-110)
--- NOTE | 2019-01-29 14:45 | RAD_ITS ---
STUDY: X-RAY - RIGHT KNEE REASON FOR EXAM: Male, 73 years old. ORIF of the tibial plateau. TECHNIQUE: 5 cone down intraoperative views were obtained. view(s) of the knee. COMPARISON: Comparison is made with prior examination dated September 29, 2015. FINDINGS: The patient is status post ORIF of the tibial plateau fracture using screw and sideplate fixation device. There is good alignment. RAD/Knee 1 or 2 Views IMPRESSION: Status post ORIF of the tibial plateau fracture. There is good alignment. Electronically Signed: Sherman Trivedi, at 13:53 EDT , Service support ,
[2019-01-29] MEDS: Cefazolin 2 GM in 0.9% Normal Saline 100 ML IV (14:51)
--- NOTE | 2019-01-29 16:11 | PCM.OPRPT ---
Report of Operation Date of Procedure: 01/29/19 Pre-Operative Diagnosis: Bicondylar Schatzker 6 proximal tibia plateau fracture Post-Operative Diagnosis: Bicondylar Schatzker 6 proximal tibia plateau fracture Surgery/Procedure Performed:: Open reduction internal fixation right bicondylar tibial plateau fracture Description of Surgical Findings:: Stable reduction certified travel counselor: Reuben Kirkland Type of Anesthesia:: General Anesthesiologist: Onur Carrasco Special Medications: 3 g Ancef Estimated Blood Loss (mL): 150 Fluids Replaced: 1300 ML crystalloid Description of Procedure: On the date of the procedure patient was examined on the floor. Swelling was appropriate. CT scan was once again reexamined and there was definitely an intercondylar split and complete metaphyseal separation. We again discussed risks and benefits of the procedure which include but not limited to blood loss, DVTs, PEs, neurovascular damage, infection, the risk of anesthesia including loss of life. Patient demonstrated understanding was able signed informed consent. On the date of the procedure patient's right leg was marked in the preoperative area. Patient was brought back to the operating room where there transferred to the table in the supine position. Anesthesia assumed control of the C-spine airway and remained to control throughout the remainder of the procedure. All bony prominences were identified and well-padded. Anesthesia administered anesthetic. A bump was placed underneath the right hip. Blankets were placed underneath the right leg to elevate it. Tourniquet was placed on the right upper thigh. Right leg was then prepped in a sterile fashion while the surgeon scrubbed. Upon reentering the room the right leg was draped in a standard orthopedic fashion and an incision was marked out. Timeout was called and everyone agreed upon the side, the site, the procedure to be performed, patient's identity and antibiotics given. Esmarch bandage was used to exsanguinate the extremity and patient's tourniquet was placed at the 250 mmHg. Incision was taken at the skin subcutaneous tissue fat down the fascia. We attempted to maintain hemostasis throughout the procedure. The fascia was incised 1 cm off the tibial crest back along Swati's tubercle. The muscles from the anterior lateral compartment were removed from the proximal tibia. The fracture was identified. Based on the patient's overall health and skin condition we wanted to just do a lateral plate. A small stab incision was made medially and the 2 condyles were reduced using a condylar clamp. Once this was done we then provisionally fashioned a lateral plate to the lateral portion of the tibia. This help reduce the metaphyseal portion of the fracture. Once this was completed live x-ray was used to verify the provisional fixation which was there with K wires and clamp. We then used a cortical screw distally with an aiming arm in order to bring the plate down to the bone. Once we did this contoured well with the lateral tibia. Once this was completed and the capsule diaphyseal fracture was well reduced as well as the condylar fractures we then used the x-ray and aiming arm in order to place locking screws proximally. 7 locking screws were placed in the sub circular bone. X-ray was used to guide these. We wanted to get nice bicortical purchase. Once the proximal portion of the fracture was provisionally fixed one more cortical screw and one locking screw was placed distally using the aiming arm and percutaneous guide. After this was done K wires and clamps were removed and fracture remained stable. At this time we placed 2 additional locking screws in a kickstand fashion from lateral to medial. Once this was completed the wound was copiously irrigated out with normal saline. Fascia was closed with #1 Vicryl. Skin was closed deep with #1 Vicryl subcutaneously with 2-0 Vicryl and spinal skin closure was done with 3-0 nylon. This is a very tenuous skin closure and very careful attention was paid to the health of the skin. Particularly distally there was some tension on the skin and tension sutures were required for this complex closure. We were able to get the skin to close with low tension on the skin edges. Xeroform dressing was placed, compressive dressing was placed which was well-padded. Patient was then awakened by anesthesia and transferred to PACU for recovery. Postoperative plan: Based on the patient's tenuous skin he is placed back in a knee immobilizer he will be able to do range of motion with physical therapy without his knee immobilizer and he can bathe without his knee immobilizer other than that he needs to be in his knee immobilizer to help reduce tension on the skin and promote healing. He is nonweightbearing on the right lower extremity. DVT prophylaxis per primary service recommend upon discharge if patient still requires DVT prophylaxis to continue with 81 mg of aspirin twice daily reduce the risk of hematomas. My physician therapeutic assistant was a vital part of this case. He was important in appropriate retraction during the case, and protection of soft tissues during bony drilling. His intimate knowledge of the case and my steps aided in safe and expedient completion of the procedure as well as appropriate position of the leg during the case. He was also vital in assisting with closure under my direct supervision. Grafts/Implants Used: Synthes 8 hole anatomic lateral proximal tibial plate - Complications No intraoperative complications - Admit VTE Documentation VTE Present on Admission: No VTE Mechan Device Prophylaxis: SCD's, Thigh High ESTRELLITA Phonge VTE Pharm Prophylaxis ordered?: Yes
--- NOTE | 2019-01-29 16:17 | CASEMGMT ---
Social Work Note Pt is having surgery today. Desiree in TCU states she will submit for pre-cert once PT/OT works with pt after surgery. Plan: TCU pending pre-cert Tata HERNÁNDEZ, TELEGRAPHIC TYPEWRITER REPAIRER
--- NOTE | 2019-01-29 16:40 | RAD_ITS ---
STUDY: X-RAY - RIGHT TIBIA AND FIBULA REASON FOR EXAM: Male, 73 years old. Postop. TECHNIQUE: Frontal and lateral view(s) of the tibia and fibula were obtained on 4 films. COMPARISON: Frontal lateral views of the right tibia and fibula on 4 images January 26, 2019. FINDINGS: The comminuted, intra-articular fracture of the proximal tibial metaphysis is now fixed in general anatomic alignment by a lateral metal sideplate and numerous screws. Metal hardware prior hemiarthroplasty at the knee again seen overlying the medial femoral condyle and medial tibial plateau. Comminuted fracture of the proximal metadiaphysis of the fibula remains in gross anatomic alignment. The distal tibia and fibula are intact. There is generalized soft tissue swelling from the knee through the ankle. RAD/Tibia & Fibula 2 Views IMPRESSION: 1. Comminuted intra-articular fracture of the proximal tibial metaphysis now fixed in general anatomic alignment by a lateral metal sideplate and screws. 2. Comminuted fracture of the proximal fibular metadiaphysis remains in gross anatomic alignment. 3. Hardware of prior medial right knee hemiarthroplasty again noted in place. Electronically Signed: Chadwick Angela MD at 14:28 EDT , Service support ,
[2019-01-29 17:35] LABS: Bedside Glucose 129 mg/dL (70-110)
[2019-01-29] MEDS: Menthol/Lanolin/Calamine/Znox 113 GM Tube 1 APPLIC TOPICAL ×2 (18:52→22:38)
[2019-01-29] MEDS: Cefazolin 1 GM/50 ML BAG IV (22:38)
[2019-01-29] MEDS: Senna/Docusate Sodium 1 Tablet 2 TABLET PO (22:43)
[2019-01-29] MEDS: Divalproex (ER) 500 MG Tablet PO (22:43)
[2019-01-29] MEDS: traZODone 50 MG Tablet PO (22:43)
[2019-01-29] MEDS: Gabapentin 300 MG Capsule PO (22:44)
[2019-01-29 23:01] LABS: Bedside Glucose 125 mg/dL (70-110)
[2019-01-30] VITALS (7 sets, daily range): BP systolic 135–148; BP diastolic 62–96; PULSE 68–89; RESP 18; TEMP 36.9–37.3; O2SAT 93–98
[2019-01-30] MEDS: HYDROmorphone 2 MG TABLET PO ×4 (04:52→22:24)
[2019-01-30] MEDS: Cefazolin 1 GM/50 ML BAG IV (06:40)
[2019-01-30] MEDS: Levothyroxine 112 MCG Tablet PO (06:40)
[2019-01-30 06:49] LABS: Hematocrit 30.9 % (40-54); Hemoglobin 9.5 g/dl (13.0-16.5); Mean Corp Hgb Conc 30.7 g/gl (32-36); Mean Corpuscular Hgb 29.2 pg (27.0-32.0); Mean Corpuscular Volume 95.1 fL (80-94); Mean Platelet Vol. 10.1 fl (6.2-12.0); Platelet Count 300 K/mm3 (150-450); RBC Distribution Width CV 14.9 % (11.6-14.6); RBC Distribution Width SD 48.7 fl (35.1-43.9); Red Blood Count 3.25 M/mm3 (4.6-6.2); White Blood Count 9.4 K/mm3 (4.4-11.0)
[2019-01-30 06:50] LABS: Bedside Glucose 91 mg/dL (70-110)
[2019-01-30 06:56] LABS: Scan Indicated on CBC? Y/N NO
[2019-01-30 07:05] LABS: Anion Gap 6 (5-15); BUN 16 mg/dL (7-18); BUN/Creat Ratio 23.5 RATIO (10-20); Calcium,Total 8.3 mg/dL (8.5-10.1); Chloride 105 mmol/L (98-107); Creatinine, Serum 0.68 mg/dL (0.70-1.30); EST Glomerular Filtration Rate 121 mL/min (>60); Est Glom Filt Rate - Afr Amer 147 mL/min (>60); Estimated Creatinine Clearance 63.65 ml/min; Glucose 90 mg/dL (74-106); Sodium Level 142 mmol/L (136-145)
--- NOTE | 2019-01-30 09:24 | PCM.PN.ORT ---
Patient Problems: Active and Suspected Problems (Last Reviewed 01/26/19 @ 17:02 by Bib Judge DO) Knee pain, right (Acute) Subjective: The patient was sitting in bed upon examination. Patient is not able to answer any of my questions. He keeps saying he cannot hear. He is also making off the wall comments to me when questions are asked. Upon reviewing consults and H&P's patient has medical history of coronary artery disease, congestive heart failure, diabetes, hypertension, GERD, sleep apnea, lymphedema. I do not see any documented underlying dementia but patient does present this way. There was no family member present during examination. Patient would not answer any questions. Objective: Vital signs stable and afebrile. Knee immobilizer in place. Upon taking down the knee immobilizer there was no breakthrough drainage right knee. Patient was asked to perform plantar flexion and dorsiflexion but would just make comments and not perform any tasks. Patient would not tell me if there was any sensation to touch on exam. - Physical Exam General: Alert Vital Signs Temp Pulse Resp BP Pulse Ox 99.1 F 68 18 135/96 H 96 01/30/19 04:42 01/30/19 04:42 01/30/19 04:42 01/30/19 04:42 01/30/19 07:58 Oxygen Flow Rate (L/min) 2 Oxygen Delivery Method Nasal Cannula Weight: 121.223 kg Body Mass Index (BMI) 40.6 Finger Stick Blood Glucose 129 Intake and Output for Last 24 Hours 01/28/19 01/29/19 01/30/19 23:59 23:59 23:59 Intake Total 1999 / 2000 2100 / 2100 600 / 600 Output Total 250 / 250 400 / 400 200 / 200 Balance 1750 / 1750 1700 / 1700 400 / 400 Laboratory Tests Past 24 Hrs 01/29/19 01/30/19 01/30/19 14:16 06:16 06:16 WBC 9.4 RBC 3.25 L Hgb 9.5 L Hct 30.9 L MCV 95.1 H MCH 29.2 MCHC 30.7 L RDW 14.9 H RDW Differential 48.7 H Plt Count 300 MPV 10.1 Sodium 142 Potassium 4.0 Chloride 105 Carbon Dioxide 31.0 Anion Gap 6 BUN 16 Creatinine 0.68 L Estim Creat Clear Calc 63.65 Est GFR (MDRD) Af Amer 147 Est GFR (MDRD) Non-Af 121 BUN/Creatinine Ratio 23.5 H Glucose 90 Calcium 8.3 L Blood Type A POSITIVE Antibody Screen NEGATIVE POC Glucose 01/30/19 01/29/19 01/29/19 06:35 22:37 17:30 POC Glucose 91 125 H 129 H 01/29/19 11:10 POC Glucose 102 Medical Necessity - Tobacco Use Smoking Status: Former smoker Tobacco Use: Non-smoker Assessment/Plan All Active Problems (Last Reviewed 01/26/19 @ 17:02 by Bib Judge DO) Knee pain, right (Acute) Preop cardiovascular exam (Acute) Skin tear of right lower leg without complication (Acute) Cellulitis (Resolved) Hypokalemia (Resolved) 1. S/P open reduction internal fixation right bicondylar tibial plateau fracture POD #1 2. Continue Pain Medications: Continue pain management per medicine 3. DVT Prophylaxis: Currently on Lovenox. Would recommend switching over to 81 mg aspirin twice daily to reduce the risk of hematomas upon discharge. 4. PT/OT: Nonweightbearing right lower extremity. Continue with knee immobilizer at all times except for range of motion with physical therapy as well as bathing/hygiene. Otherwise we would like patient to be placed back in the knee immobilizer to reduce tension on skin and promote healing 5. H & H: 9.5/30.9, asymptomatic 6. Encouraged Incentive Spirometry 7. Continue postoperative medical management per medicine 8. Dressing: Plan will be for daily dressing changes after 48 hours postoperatively. We will plan on changing dressing tomorrow and examining the incision and skin. 9. Disposition: Plan is for patient to be discharged to transitional care unit once pre-CERT has been obtained.
--- NOTE | 2019-01-30 09:42 | PCM.PN.HOSP ---
Patient Problems: Active and Suspected Problems (Last Reviewed 01/26/19 @ 17:02 by Bib Judge DO) Knee pain, right (Acute) Objective: GENERAL: cooperative HEENT: Atraumatic; moist oral mucosa EYES; Anicteric, Normal Conjunctiva NECK; supple, normal thyroid, no distended JVD. RESPIRATORY: Diminished to auscultation bilaterally, CARDIOVASCULAR: Regular S1 S2, no audible murmurs GI: soft, non-tender, normoactive bowel sounds, : No Renal angle tenderness; EXTREMITIES: No edema, no clubbing, no cyanosis. MUSCULOSKELETAL right knee immobilized NEURO: Awake; no lateralizing signs. SKIN: No Rash PSYCH; Normal affect Vitals/I&O's: Vital Signs Temp Pulse Resp BP Pulse Ox 99.1 F 68 18 135/96 H 96 01/30/19 04:42 01/30/19 04:42 01/30/19 04:42 01/30/19 04:42 01/30/19 07:58 Oxygen Flow Rate (L/min) 2 Oxygen Delivery Method Nasal Cannula Weight: 121.223 kg Body Mass Index (BMI) 40.6 Finger Stick Blood Glucose 129 Intake and Output for Last 24 Hours 01/28/19 01/29/19 01/30/19 23:59 23:59 23:59 Intake Total 2000 / 2000 2100 / 2100 600 / 600 Output Total 250 / 250 400 / 400 200 / 200 Balance 1750 / 1750 1700 / 1700 400 / 400 Laboratory Results 01/29/19 11:10: POC Glucose 102 01/29/19 14:16: Blood Type A POSITIVE, Antibody Screen NEGATIVE 01/29/19 17:30: POC Glucose 129 H 01/29/19 22:37: POC Glucose 125 H 01/30/19 06:16: WBC 9.4, RBC 3.25 L, Hgb 9.5 L, Hct 30.9 L, MCV 95.1 H, MCH 29.2, MCHC 30.7 L, RDW 14.9 H, RDW Differential 48.7 H, Plt Count 300, MPV 10.1 01/30/19 06:16: Sodium 142, Potassium 4.0, Chloride 105, Carbon Dioxide 31.0, Anion Gap 6, BUN 16, Creatinine 0.68 L, Estim Creat Clear Calc 63.65, Est GFR (MDRD) Af Amer 147, Est GFR (MDRD) Non-Af 121, BUN/Creatinine Ratio 23.5 H, Glucose 90, Calcium 8.3 L 01/30/19 06:35: POC Glucose 91 Current Medications Acetaminophen (Tylenol) 650 mg PO Q6H PRN PRN PRN Reason: Mild Pain (1-3)/Temp > 100.7 F Last Admin: 01/28/19 16:42 Dose: 650 mg Allopurinol (Zyloprim) 100 mg PO DAILY [facility] Last Admin: 01/29/19 18:48 Dose: Not Given Calamine/Phenol (Calmoseptine Ointment) 1 applic TOPICAL 4X/DAY [facility]; Protocol Last Admin: 01/29/19 22:38 Dose: 1 applicatio Dextrose (D50w Syringe) 0 gm IV X1 PRN; Protocol PRN Reason: Hypoglycemia [facility] Last Admin: 01/29/19 18:51 Dose: Not Given Divalproex Sodium (Depakote Er) 500 mg PO BID [facility] Last Admin: 01/29/19 22:43 Dose: 500 mg Enoxaparin Sodium (Lovenox) 40 mg SC DAILY@1000 [facility] Last Admin: 01/29/19 18:48 Dose: Not Given Ergocalciferol (Vitamin D) 50,000 unit PO QMONTH [facility] Furosemide (Lasix) 40 mg PO BIDLX [facility] Last Admin: 01/29/19 18:52 Dose: Not Given Gabapentin (Neurontin) 300 mg PO BID [facility] [place] Last Admin: 01/29/19 22:44 Dose: 300 mg Glucagon () 1 mg IM .X1 PRN PRN Reason: Hypoglycemia Hydralazine HCl (Apresoline Iv) 10 mg IV Q4H PRN PRN PRN Reason: for SBP > 150 Hydromorphone HCl (Dilaudid Inj) 0.5 mg IV Q4H PRN PRN PRN Reason: breakthough pain Hydromorphone HCl (Dilaudid Tablet) 2 mg PO Q4H PRN PRN PRN Reason: SEVERE PAIN (6-10/10) Last Admin: 01/30/19 04:52 Dose: 2 mg Insulin Glargine (Lantus (Bkc)) 75 units SC QHS [facility] Last Admin: 01/29/19 22:45 Dose: 75 units Insulin Human Lispro (Humalog Kwikpen (Bkc)) 0 unit SQ TIDAC [facility]; Protocol Last Admin: 01/30/19 06:40 Dose: Not Given Levothyroxine Sodium (Synthroid) 112 mcg PO DAILY@0600 [facility] Last Admin: 01/30/19 06:40 Dose: 112 mcg Linagliptin (Tradjenta) 5 mg PO DAILY [facility] Last Admin: 01/29/19 18:48 Dose: Not Given Losartan Potassium (Cozaar) 100 mg PO BID [facility] [place] Last Admin: 01/29/19 22:44 Dose: 100 mg Magnesium Hydroxide (Milk Of Magnesia) 30 ml PO DAILY PRN PRN PRN Reason: Constipation Metoprolol Succinate (Toprol Xl (Beta Romel)) 12.5 mg PO BID [facility] [place] Last Admin: 01/29/19 22:44 Dose: 12.5 mg Nutritional Formula (Lactose Free) (Glucerna Shake) 120 ml PO TIDCM [facility] [place] Last Admin: 01/29/19 18:49 Dose: Not Given Ondansetron HCl (Zofran) 4 mg IV Q8H PRN PRN PRN Reason: NAUSEA Ondansetron HCl (Zofran) 4 mg IV Q8H PRN PRN PRN Reason: NAUSEA Paroxetine HCl (Paxil) 40 mg PO DAILY [facility] [place] Last Admin: 01/29/19 18:53 Dose: Not Given Potassium [facility]) [facility] Last Admin: 01/29/19 18:51 Dose: Not Given Promethazine HCl (Phenergan) 12.5 mg IM Q6H PRN PRN; Protocol PRN Reason: NAUSEA/VOMITING Senna/Docusate Sodium (Senokot-S, Bria-Colace) 2 tablet PO BID [facility] [place] Last Admin: 01/29/19 22:43 Dose: 2 tablet Simvastatin (Zocor) 40 mg PO QHS [facility] [place] Last Admin: 01/29/19 22:44 Dose: 40 mg Sodium Chloride () 5 - 15 ml IV UD PRN PRN Reason: SALINE FLUSH Last Admin: 01/28/19 23:00 Dose: 10 ml Trazodone HCl (Desyrel) 50 mg PO QHS [facility] [place] Last Admin: 01/29/19 22:43 Dose: 50 mg Medical Necessity - Tobacco Use Smoking Status: Former smoker Tobacco Use: Non-smoker Assessment/Plan All Active Problems (Last Reviewed 01/26/19 @ 17:02 by Bib Judge DO) Knee pain, right (Acute) Preop cardiovascular exam (Acute) Skin tear of right lower leg without complication (Acute) Cellulitis (Resolved) Hypokalemia (Resolved)
--- NOTE | 2019-01-30 09:46 | PN_ITS ---
Patient Problems: Active and Suspected Problems (Last Reviewed 01/26/19 @ 17:02 by Bib Judge DO) Knee pain, right (Acute) Subjective: Patient underwent Open reduction internal fixation right bicondylar tibial plateau fracture [address] Rutledge 01/30/2019: Patient seen for speech and physical therapy Objective: GENERAL: cooperative HEENT: Atraumatic; moist oral mucosa EYES; Anicteric, Normal Conjunctiva NECK; supple, normal thyroid, no distended JVD. RESPIRATORY: Diminished to auscultation bilaterally, CARDIOVASCULAR: Regular S1 S2, no audible murmurs GI: soft, non-tender, normoactive bowel sounds, : No Renal angle tenderness; EXTREMITIES: No edema, no clubbing, no cyanosis. MUSCULOSKELETAL right knee in an immobilizer NEURO: Awake; no lateralizing signs. SKIN: No Rash PSYCH; Normal affect Vitals/I&O's: Vital Signs Temp Pulse Resp BP Pulse Ox 99.1 F 68 18 135/96 H 96 01/30/19 04:42 01/30/19 04:42 01/30/19 04:42 01/30/19 04:42 01/30/19 07:58 Oxygen Flow Rate (L/min) 2 Oxygen Delivery Method Nasal Cannula Weight: 121.223 kg Body Mass Index (BMI) 40.6 Finger Stick Blood Glucose 129 Intake and Output for Last 24 Hours 01/28/19 01/29/19 01/30/19 23:59 23:59 23:59 Intake Total 2000 / 2000 2100 / 2100 600 / 600 Output Total 250 / 250 400 / 400 200 / 200 Balance 1750 / 1750 1700 / 1700 400 / 400 Laboratory Results 01/29/19 11:10: POC Glucose 102 01/29/19 14:16: Blood Type A POSITIVE, Antibody Screen NEGATIVE 01/29/19 17:30: POC Glucose 129 H 01/29/19 22:37: POC Glucose 125 H 01/30/19 06:16: WBC 9.4, RBC 3.25 L, Hgb 9.5 L, Hct 30.9 L, MCV 95.1 H, MCH 29.2, MCHC 30.7 L, RDW 14.9 H, RDW Differential 48.7 H, Plt Count 300, MPV 10.1 01/30/19 06:16: Sodium 142, Potassium 4.0, Chloride 105, Carbon Dioxide 31.0, Anion Gap 6, BUN 16, Creatinine 0.68 L, Estim Creat Clear Calc 63.65, Est GFR (MDRD) Af Amer 147, Est GFR (MDRD) Non-Af 121, BUN/Creatinine Ratio 23.5 H, Glucose 90, Calcium 8.3 L 01/30/19 06:35: POC Glucose 91 Current Medications Acetaminophen (Tylenol) 650 mg PO Q6H PRN PRN PRN Reason: Mild Pain (1-3)/Temp > 100.7 F Last Admin: 01/28/19 16:42 Dose: 650 mg Allopurinol (Zyloprim) 100 mg PO DAILY [facility] Last Admin: 01/29/19 18:48 Dose: Not Given Calamine/Phenol (Calmoseptine Ointment) 1 applic TOPICAL 4X/DAY [facility]; Protocol Last Admin: 01/29/19 22:38 Dose: 1 applicatio Dextrose (D50w Syringe) 0 gm IV X1 PRN; Protocol PRN Reason: Hypoglycemia [facility] Admin: 01/29/19 18:51 Dose: Not Given Divalproex Sodium (Depakote Er) 500 mg PO BID [facility] Last Admin: 01/29/19 22:43 Dose: 500 mg Enoxaparin Sodium (Lovenox) 40 mg SC DAILY@1000 [facility] Last Admin: 01/29/19 18:48 Dose: Not Given Ergocalciferol (Vitamin D) 50,000 unit PO QMONTH [facility] Furosemide (Lasix) 40 mg PO BIDLX [facility] Last Admin: 01/29/19 18:52 Dose: Not Given Gabapentin (Neurontin) 300 mg PO BID [facility] Last Admin: 01/29/19 22:44 Dose: 300 mg Glucagon () 1 mg IM .X1 PRN PRN Reason: Hypoglycemia Hydralazine HCl (Apresoline Iv) 10 mg IV Q4H PRN PRN PRN Reason: for SBP > 150 Hydromorphone HCl (Dilaudid Inj) 0.5 mg IV Q4H PRN PRN PRN Reason: breakthough pain Hydromorphone HCl (Dilaudid Tablet) 2 mg PO Q4H PRN PRN PRN Reason: SEVERE PAIN (6-10/10) Last Admin: 01/30/19 04:52 Dose: 2 mg Insulin Glargine (Lantus (Bk)) 75 units SC QHS [facility] Last Admin: 01/29/19 22:45 Dose: 75 units Insulin Human Lispro (Humalog Kwikpen (Bk)) 0 unit SQ TIDAC [facility]; Protocol Last Admin: 01/30/19 06:40 Dose: Not Given Levothyroxine Sodium (Synthroid) 112 mcg PO DAILY@0600 [facility] Last Admin: 01/30/19 06:40 Dose: 112 mcg Linagliptin (Tradjenta) 5 mg PO DAILY [facility] Last Admin: 01/29/19 18:48 Dose: Not Given Losartan Potassium (Cozaar) 100 mg PO BID [facility] Last Admin: 01/29/19 22:44 Dose: 100 mg Magnesium Hydroxide (Milk Of Magnesia) 30 ml PO DAILY PRN PRN PRN Reason: Constipation Metoprolol Succinate (Toprol Xl (Beta Romel)) 12.5 mg PO BID [facility] Last Admin: 01/29/19 22:44 Dose: 12.5 mg Nutritional Formula (Lactose Free) (Glucerna Shake) [facility] Last Admin: 01/29/19 18:49 Dose: Not Given Ondansetron HCl (Zofran) 4 mg IV Q8H PRN PRN PRN Reason: NAUSEA Ondansetron HCl (Zofran) 4 mg IV Q8H PRN PRN PRN Reason: NAUSEA Paroxetine HCl (Paxil) 40 mg PO DAILY [facility] Last Admin: 01/29/19 18:53 Dose: Not Given Potassium Chloride (K-Dur) [facility] Last Admin: 01/29/19 18:51 Dose: Not Given Promethazine HCl (Phenergan) 12.5 mg IM Q6H PRN PRN; Protocol PRN Reason: NAUSEA/VOMITING Senna/Docusate Sodium (Senokot-S, Bria-Colace) 2 tablet PO BID [facility] Last Admin: 01/29/19 22:43 Dose: 2 tablet Simvastatin (Zocor) 40 mg PO QHS [facility] Last Admin: 01/29/19 22:44 Dose: 40 mg Sodium Chloride () 5 - 15 ml IV UD PRN PRN Reason: SALINE FLUSH Last Admin: 01/28/19 23:00 Dose: 10 ml Trazodone HCl (Desyrel) 50 mg PO QHS [facility] Last Admin: 01/29/19 22:43 Dose: 50 mg Medical Necessity - Tobacco Use Smoking Status: Former smoker Tobacco Use: Non-smoker Assessment/Plan All Active Problems (Last Reviewed 01/26/19 @ 17:02 by Bib Judge DO) Knee pain, right (Acute) Preop cardiovascular exam (Acute) Skin tear of right lower leg without complication (Acute) Cellulitis (Resolved) Hypokalemia (Resolved) Patient is a 73-year-old gentleman admitted following a fall imaging studies on admission demonstrated Proximal tibia and fibular fractures. Immobilized and admitted to regular nursing floor with consultation placed to orthopedic surgery 1. Acute mechanical fall with resultant Proximal tibia and fibular fractures. Immobilized and admitted to regular nursing floor with consultation placed to orthopedic surgery. Patient underwent Open reduction internal fixation right bicondylar tibial plateau fracture [address] Rutledge 2. Accelerated hypertension -blood pressure not controlled; a.m. medications given also added as needed hydralazine blood pressure improved with adjustment of medication doses 3. Diabetes mellitus type 2 did continue with patient home regimen also placed on Accu-Cheks before meals and at bedtime cover with sliding scale insulin 4. Dyslipidemia-patient is on statin therapy, continued at home dose 5. Hypothyroidism-patient is on levothyroxine home dose continued 6. Gout patient is on allopurinol next 7. History of cochlear implant 8. Obstructive sleep apnea 9. GERD 10. Spinal lumbar stenosis 11. Generalized osteoarthritis 12. Morbid obesity with BMI of 40.6 13. DVT prophylaxis; SC Lovenox Active Medications Acetaminophen (Tylenol) 650 mg PO Q6H PRN PRN PRN Reason: Mild Pain (1-3)/Temp > 100.7 F Last Admin: 01/28/19 16:42 Dose: 650 mg Allopurinol (Zyloprim) 100 mg PO DAILY [facility] Last Admin: 01/29/19 18:48 Dose: Not Given Calamine/Phenol (Calmoseptine Ointment) 1 applic TOPICAL 4X/DAY [facility]; Protocol Last Admin: 01/29/19 22:38 Dose: 1 applicatio Dextrose (D50w Syringe) 0 gm IV X1 PRN; Protocol PRN Reason: Hypoglycemia Diclofenac Sodium (Voltaren) 50 mg PO BIDCM [facility] Last Admin: 01/29/19 18:51 Dose: Not Given Divalproex Sodium (Depakote Er) 500 mg PO BID [facility] Last Admin: 01/29/19 22:43 Dose: 500 mg Enoxaparin Sodium (Lovenox) 40 mg SC DAILY@1000 [facility] Last Admin: 01/29/19 18:48 Dose: Not Given Ergocalciferol (Vitamin D) 50,000 unit PO QMONTH [facility] Furosemide (Lasix) 40 mg PO BIDLX [facility] Last Admin: 01/29/19 18:52 Dose: Not Given Gabapentin (Neurontin) 300 mg PO BID [facility] Last Admin: 01/29/19 22:44 Dose: 300 mg Glucagon () 1 mg IM .X1 PRN PRN Reason: Hypoglycemia Hydralazine HCl (Apresoline Iv) 10 mg IV Q4H PRN PRN PRN Reason: for SBP > 150 Hydromorphone HCl (Dilaudid Inj) 0.5 mg IV Q4H PRN PRN PRN Reason: breakthough pain Hydromorphone HCl (Dilaudid Tablet) 2 mg PO Q4H PRN PRN PRN Reason: SEVERE PAIN (6-10/10) Last Admin: 01/30/19 04:52 Dose: 2 mg Insulin Glargine (Lantus (Bkc)) 75 units SC QHS [facility] Last Admin: 01/29/19 22:45 Dose: 75 units Insulin Human Lispro (Humalog Kwikpen (Bkc)) 0 unit SQ TIDAC [facility]; Protocol Last Admin: 01/30/19 06:40 Dose: Not Given Levothyroxine Sodium (Synthroid) 112 mcg PO DAILY@0600 [facility] Last Admin: 01/30/19 06:40 Dose: 112 mcg Linagliptin (Tradjenta) 5 mg PO DAILY [facility] Last Admin: 01/29/19 18:48 Dose: Not Given Losartan Potassium (Cozaar) 100 mg PO BID [facility] Last Admin: 01/29/19 22:44 Dose: 100 mg Magnesium Hydroxide (Milk Of Magnesia) 30 ml PO DAILY PRN PRN PRN Reason: Constipation Metoprolol Succinate (Toprol Xl (Beta Romel)) 12.5 mg PO BID [facility] Last Admin: 01/29/19 22:44 Dose: 12.5 mg Nutritional Formula (Lactose Free) (Glucerna Shake) 120 ml PO TIDCM [facility] Last Admin: 01/29/19 18:49 Dose: Not Given Ondansetron HCl (Zofran) 4 mg IV Q8H PRN PRN PRN Reason: NAUSEA Ondansetron HCl (Zofran) 4 mg IV Q8H PRN PRN PRN Reason: NAUSEA Paroxetine HCl (Paxil) 40 mg PO DAILY [facility] Last Admin: 01/29/19 18:53 Dose: Not Given Potassium Ch[facility] (K-Dur) [facility] Last Admin: 01/29/19 18:51 Dose: Not Given Promethazine HCl (Phenergan) 12.5 mg IM Q6H PRN PRN; Protocol PRN Reason: NAUSEA/VOMITING Senna/Docusate Sodium (Senokot-S, Bria-Colace) 2 tablet PO BID [facility] Last Admin: 01/29/19 22:43 Dose: 2 tablet Simvastatin (Zocor) 40 mg PO QHS [facility] Last Admin: 01/29/19 22:44 Dose: 40 mg Sodium Chloride () 5 - 15 ml IV UD PRN PRN Reason: SALINE FLUSH Last Admin: 01/28/19 23:00 Dose: 10 ml Trazodone HCl (Desyrel) 50 mg PO QHS [facility] Last Admin: 01/29/19 22:43 Dose: 50 mg Code Visit Inpatient E&M: 14973 [facility] Hosp L2
[2019-01-30] MEDS: Glucerna Shake 120 ML LIQUID PO ×3 (10:30→16:12)
[2019-01-30] MEDS: Menthol/Lanolin/Calamine/Znox 113 GM Tube 1 APPLIC TOPICAL ×4 (10:31→22:17)
[2019-01-30] MEDS: Gabapentin 300 MG Capsule PO ×2 (10:32→22:18)
[2019-01-30] MEDS: Losartan Potassium 100 MG Tablet PO ×2 (10:33→22:21)
[2019-01-30] MEDS: LINAGLIPTIN 5 MG TABLET PO (10:33)
[2019-01-30] MEDS: Furosemide 40 MG Tablet PO ×2 (10:33→17:49)
[2019-01-30] MEDS: Divalproex (ER) 500 MG Tablet PO ×2 (10:34→22:20)
[2019-01-30] MEDS: Empagliflozin 25 MG Tablet PO (10:34)
[2019-01-30] MEDS: Paroxetine 20 MG Tablet 40 MG PO (10:34)
[2019-01-30] MEDS: Senna/Docusate Sodium 1 Tablet 2 TABLET PO ×2 (10:35→22:18)
[2019-01-30] MEDS: Allopurinol 100 MG Tablet PO (10:36)
[2019-01-30] MEDS: Metoprolol(XL)Succ 25 MG Tablet 12.5 MG PO ×2 (10:39→22:21)
[2019-01-30] MEDS: Enoxaparin 40 MG/0.4 ML Syringe SC (10:40)
--- NOTE | 2019-01-30 11:00 | CASEMGMT ---
Social Work Note JENNIFER received message from pt's Mayda to call her back. JENNIFER placed a call to pt's Mayda. Mayda states that she was informed by physician that pt will need to go to SNF at discharge. JENNIFER informed Mayda that pt has been accepted to TCU which is like a SNF except in the hospital. JENNIFER explained to Mayda that once pt is at SNF/TCU the facility will submit updates to pt's insurance and insurance will determine when the last day is that they will pay for pt to be at SNF. Mayda asked this worker about pt being transported to doctor appointments while at TCU. JENNIFER explained that pt is able to go to doctor appointments at TCU and transportation will either be provided by family or can be arranged. Mayda states understanding and is agreeable to TCU. JENNIFER called Desriee in TCU and informed her that PT/OT are available and to submit for pre-cert. 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
[2019-01-30 13:01] LABS: Bedside Glucose 123 mg/dL (70-110)
[2019-01-30 16:21] LABS: Bedside Glucose 129 mg/dL (70-110)
[2019-01-30] MEDS: traZODone 50 MG Tablet PO (22:20)
[2019-01-30 22:41] LABS: Bedside Glucose 120 mg/dL (70-110)
[2019-01-31] VITALS (7 sets, daily range): BP systolic 141–157; BP diastolic 50–74; PULSE 55–81; RESP 16–18; TEMP 36.6–37.5; O2SAT 92–96
[2019-01-31] MEDS: Levothyroxine 112 MCG Tablet PO (06:08)
[2019-01-31] MEDS: HYDROmorphone 2 MG TABLET PO ×2 (06:12→20:52)
[2019-01-31 06:27] LABS: Anion Gap 5 (5-15); BUN 14 mg/dL (7-18); BUN/Creat Ratio 19.6 RATIO (10-20); Calcium,Total 8.2 mg/dL (8.5-10.1); Chloride 104 mmol/L (98-107); Creatinine, Serum 0.71 mg/dL (0.70-1.30); EST Glomerular Filtration Rate 115 mL/min (>60); Est Glom Filt Rate - Afr Amer 139 mL/min (>60); Estimated Creatinine Clearance 63.65 ml/min; Glucose 84 mg/dL (74-106); Potassium 4.1 mmol/L (3.5-5.1); Sodium Level 138 mmol/L (136-145)
--- NOTE | 2019-01-31 06:48 | PCM.PN.ORT ---
Patient Problems: Active and Suspected Problems (Last Reviewed 01/26/19 @ 17:02 by Bib Judge DO) Knee pain, right (Acute) Subjective: The patient was sitting in bed upon examination. Patient is very hard of hearing and does not answer any questions that I ask. Patient does not appear to be in any acute distress. Upon moving the knee he does not show any signs of distress. Objective: Vital signs stable and afebrile. Knee immobilizer in place right lower extremity Dressing was removed at today's visit, there is no active drainage over the lateral incision. Sutures are in place and does not appear to be any significant changes with the skin from surgery. New dry dressings were placed with compressive dressing. Knee immobilizer was placed back on the knee. - Physical Exam General: Alert Vital Signs Temp Pulse Resp BP Pulse Ox 99.5 F H 81 18 157/74 H 95 01/31/19 03:52 01/31/19 03:52 01/31/19 03:52 01/31/19 03:52 01/31/19 03:52 Oxygen Flow Rate (L/min) 2 Oxygen Delivery Method Room Air Weight: 121.223 kg Body Mass Index (BMI) 40.6 Finger Stick Blood Glucose 129 Intake and Output for Last 24 Hours 01/29/19 01/30/19 01/31/19 23:59 23:59 23:59 Intake Total 2100 / 2100 600 / 600 600 / 600 Output Total 400 / 400 200 / 200 Balance 1700 / 1700 400 / 400 600 / 600 Laboratory Tests Past 24 Hrs 01/30/19 01/30/19 01/31/19 06:16 06:16 05:14 WBC 9.4 RBC 3.25 L Hgb 9.5 L Hct 30.9 L MCV 95.1 H MCH 29.2 MCHC 30.7 L RDW 14.9 H RDW Differential 48.7 H Plt Count 300 MPV 10.1 Sodium 142 138 Potassium 4.0 4.1 Chloride 105 104 Carbon Dioxide 31.0 29.0 Anion Gap 6 5 BUN 16 14 Creatinine 0.68 L 0.71 Estim Creat Clear Calc 63.65 63.65 Est GFR (MDRD) Af Amer 147 139 Est GFR (MDRD) Non-Af 121 115 BUN/Creatinine Ratio 23.5 H 19.6 Glucose 90 84 Calcium 8.3 L 8.2 L POC Glucose 01/30/19 01/30/19 01/30/19 22:16 16:11 12:44 POC Glucose 120 H 129 H 123 H 01/30/19 06:35 POC Glucose 91 Medical Necessity - Tobacco Use Smoking Status: Former smoker Tobacco Use: Non-smoker Assessment/Plan All Active Problems (Last Reviewed 01/26/19 @ 17:02 by Bib Judge DO) Knee pain, right (Acute) Preop cardiovascular exam (Acute) Skin tear of right lower leg without complication (Acute) Cellulitis (Resolved) Hypokalemia (Resolved) 1. S/P open reduction internal fixation right bicondylar tibial plateau fracture POD #2 2. Continue Pain Medications: Continue pain management per medicine 3. DVT Prophylaxis: Currently on Lovenox. Would recommend switching over to 81 mg aspirin twice daily to reduce the risk of hematomas upon discharge. 4. PT/OT: Nonweightbearing right lower extremity. Continue with knee immobilizer at all times except for range of motion with physical therapy as well as bathing/hygiene. Otherwise we would like patient to be placed back in the knee immobilizer to reduce tension on skin and promote healing 5. Encouraged Incentive Spirometry 6. Continue postoperative medical management per medicine 7. Dressing: Continue with dry dressing changes daily using ABDs. 8. Disposition: Plan is for patient to be discharged to transitional care unit once pre-CERT has been obtained. Okay for discharge from orthopedic standpoint when medically stable.
[2019-01-31 07:01] LABS: Bedside Glucose 93 mg/dL (70-110)
[2019-01-31] MEDS: Menthol/Lanolin/Calamine/Znox 113 GM Tube 1 APPLIC TOPICAL ×4 (11:17→20:57)
[2019-01-31] MEDS: Empagliflozin 25 MG Tablet PO (11:18)
[2019-01-31] MEDS: Furosemide 40 MG Tablet PO ×2 (11:18→17:20)
[2019-01-31] MEDS: Losartan Potassium 100 MG Tablet PO ×2 (11:18→21:48)
[2019-01-31] MEDS: Divalproex (ER) 500 MG Tablet PO ×2 (11:18→21:49)
[2019-01-31] MEDS: Gabapentin 300 MG Capsule PO ×2 (11:19→21:49)
[2019-01-31] MEDS: Paroxetine 20 MG Tablet 40 MG PO (11:19)
[2019-01-31] MEDS: Enoxaparin 40 MG/0.4 ML Syringe SC (11:19)
[2019-01-31] MEDS: Senna/Docusate Sodium 1 Tablet 2 TABLET PO ×2 (11:19→21:49)
[2019-01-31] MEDS: Allopurinol 100 MG Tablet PO (11:20)
[2019-01-31] MEDS: Metoprolol(XL)Succ 25 MG Tablet 12.5 MG PO ×2 (11:20→21:48)
[2019-01-31] MEDS: LINAGLIPTIN 5 MG TABLET PO (11:21)
[2019-01-31] MEDS: Insulin Lispro 100 UNIT/ML INSULN.PEN SQ (11:42)
[2019-01-31] MEDS: Glucerna Shake 120 ML LIQUID PO ×2 (11:44→16:31)
[2019-01-31 12:40] LABS: Bedside Glucose 152 mg/dL (70-110)
--- NOTE | 2019-01-31 12:53 | CASEMGMT ---
Social Work Note Green sheet on chart in the event pre-cert is obtained. 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
--- NOTE | 2019-01-31 14:46 | PCM.PROGNOTE ---
Patient Problems: Active and Suspected Problems (Last Reviewed 01/26/19 @ 17:02 by Bib Judge DO) Knee pain, right (Acute) Subjective: Patient is a 73-year-old male with a past medical history of chronic diastolic congestive heart failure, diabetes mellitus type 2, GERD, hypothyroidism, lumbar canal stenosis, osteoarthritis, depression, gout, chronic venous insufficiency, EH, venous stasis ulcers of the lower extremities, morbid obesity, hyperlipidemia, hypertension and nonrheumatic tricuspid valve insufficiency who presented to [facility] on 01/26/2019 after a fall. X-rays revealed a proximal tibia fracture and proximal fibula fracture. He was seen in consultation by Dr. Rutledge and taken to surgery on 01/29/2019 for open reduction with internal fixation of right bicondylar tibial plateau fracture. We are waiting for pre-certification from the insurance company to transfer to TCU. All events the past 24 hours been reviewed. He is afebrile. Vital signs are stable and he is maintaining an oxygen saturation of 92-95% on room air. Blood sugars are well controlled. BMP today is within normal limits. Objective: PHYSICAL EXAM: GENERAL: alert, oriented X 3, Cooperative, NAD, very [place] ORAL: moist mucosa, no mucosal lesions NECK: No JVD, supple, trachea midline LUNGS: CTA, symmetric chest expansion, diminished HEART: RRR, Normal S1 and S2, no rub, no gallop, no murmur ABDOMEN: soft, NT, ND, BS present, no guarding with palpation EXTREMITIES: no edema, no cyanosis, no calf tenderness SKIN: No rashes, no breakdown NEUROLOGIC: no focal neurologic deficits PSYCH: appropriate, normal affect, pleasant - Physical Exam Vital Signs Temp Pulse Resp BP Pulse Ox 97.9 F 55 L 16 147/65 H 95 01/31/19 13:45 01/31/19 13:45 01/31/19 13:45 01/31/19 13:45 01/31/19 13:45 Oxygen Flow Rate (L/min) 2 Oxygen Delivery Method Room Air Weight: 267 lb 4.015 oz Body Mass Index (BMI) 40.6 Finger Stick Blood Glucose 129 Intake and Output for Last 24 Hours 01/29/19 01/30/19 01/31/19 23:59 23:59 23:59 Intake Total 2100 / 2100 600 / 600 600 / 600 Output Total 400 / 400 200 / 200 Balance 1700 / 1700 400 / 400 600 / 600 Laboratory Tests Past 24 Hrs 01/31/19 05:14 Sodium 138 Potassium 4.1 Chloride 104 Carbon Dioxide 29.0 Anion Gap 5 BUN 14 Creatinine 0.71 Estim Creat Clear Calc 63.65 Est GFR (MDRD) Af Amer 139 Est GFR (MDRD) Non-Af 115 BUN/Creatinine Ratio 19.6 Glucose 84 Calcium 8.2 L POC Glucose 01/31/19 01/31/19 01/30/19 11:39 06:42 22:16 POC Glucose 152 H 93 120 H 01/30/19 16:11 POC Glucose 129 H Medical Necessity - Tobacco Use Smoking Status: Former smoker Tobacco Use: Non-smoker Assessment/Plan All Active Problems (Last Reviewed 01/26/19 @ 17:02 by Bib Judge DO) Knee pain, right (Acute) Preop cardiovascular exam (Acute) Skin tear of right lower leg without complication (Acute) Cellulitis (Resolved) Hypokalemia (Resolved) Impressions 1. Acute mechanical fall resulting in proximal tibia and fibular fractures. Open reduction internal fixation of right bicondylar tibial plateau fracture on 01/29/[address] Rutledge. Awaiting precertification for transfer to snf. 2. Hypertension 3. Diabetes mellitus type 2 4. Dyslipidemia 5. Hypothyroidism 6. Gout 7. History of a cochlear implant 8. Obstructive sleep apnea 9. GERD 10. Lumbar canal stenosis 11. Generalized osteoarthritis 12. Morbid obesity Continue current medications Discharge to snf when precertification is obtained Code Visit Inpatient E&M: 58685 Subs Hosp L2
--- NOTE | 2019-01-31 14:54 | PN_ITS ---
Patient Problems: Active and Suspected Problems (Last Reviewed 01/26/19 @ 17:02 by Bib Judge DO) Knee pain, right (Acute) Subjective: Patient is a 73-year-old male with a past medical history of chronic diastolic congestive heart failure, diabetes mellitus type 2, GERD, hypothyroidism, lumbar canal stenosis, osteoarthritis, depression, gout, chronic venous insufficiency, EH, venous stasis ulcers of the lower extremities, morbid obesity, hyperlipidemia, hypertension and nonrheumatic tricuspid valve insufficiency who presented to [facility] on 01/26/2019 after a fall. X-rays revealed a proximal tibia fracture and proximal fibula fracture. He was seen in consultation by Dr. Rutledge and taken to surgery on 01/29/2019 for open reduction with internal fixation of right bicondylar tibial plateau fracture. We are waiting for pre-certification from the insurance company to transfer to TCU. All events the past 24 hours been reviewed. He is afebrile. Vital signs are stable and he is maintaining an oxygen saturation of 92-95% on room air. Blood sugars are well controlled. BMP today is within normal limits. Objective: PHYSICAL EXAM: GENERAL: alert, oriented X 3, Cooperative, NAD, very [place] ORAL: moist mucosa, no mucosal lesions NECK: No JVD, supple, trachea midline LUNGS: CTA, symmetric chest expansion, diminished HEART: RRR, Normal S1 and S2, no rub, no gallop, no murmur ABDOMEN: soft, NT, ND, BS present, no guarding with palpation EXTREMITIES: no edema, no cyanosis, no calf tenderness SKIN: No rashes, no breakdown NEUROLOGIC: no focal neurologic deficits PSYCH: appropriate, normal affect, pleasant - Physical Exam Vital Signs Temp Pulse Resp BP Pulse Ox 97.9 F 55 L 16 147/65 H 95 01/31/19 13:45 01/31/19 13:45 01/31/19 13:45 01/31/19 13:45 01/31/19 13:45 Oxygen Flow Rate (L/min) 2 Oxygen Delivery Method Room Air Weight: 267 lb 4.015 oz Body Mass Index (BMI) 40.6 Finger Stick Blood Glucose 129 Intake and Output for Last 24 Hours 01/29/19 01/30/19 01/31/19 23:59 23:59 23:59 Intake Total 2100 / 2100 600 / 600 600 / 600 Output Total 400 / 400 200 / 200 Balance 1700 / 1700 400 / 400 600 / 600 Laboratory Tests Past 24 Hrs 01/31/19 05:14 Sodium 138 Potassium 4.1 Chloride 104 Carbon Dioxide 29.0 Anion Gap 5 BUN 14 Creatinine 0.71 Estim Creat Clear Calc 63.65 Est GFR (MDRD) Af Amer 139 Est GFR (MDRD) Non-Af 115 BUN/Creatinine Ratio 19.6 Glucose 84 Calcium 8.2 L POC Glucose 01/31/19 01/31/19 01/30/19 11:39 06:42 22:16 POC Glucose 152 H 93 120 H 01/30/19 16:11 POC Glucose 129 H Medical Necessity - Tobacco Use Smoking Status: Former smoker Tobacco Use: Non-smoker Assessment/Plan All Active Problems (Last Reviewed 01/26/19 @ 17:02 by Bib Judge DO) Knee pain, right (Acute) Preop cardiovascular exam (Acute) Skin tear of right lower leg without complication (Acute) Cellulitis (Resolved) Hypokalemia (Resolved) Impressions 1. Acute mechanical fall resulting in proximal tibia and fibular fractures. Open reduction internal fixation of right bicondylar tibial plateau fracture on 01/29/[address] Rutledge. Awaiting precertification for transfer to longterm. 2. Hypertension 3. Diabetes mellitus type 2 4. Dyslipidemia 5. Hypothyroidism 6. Gout 7. History of a cochlear implant 8. Obstructive sleep apnea 9. GERD 10. Lumbar canal stenosis 11. Generalized osteoarthritis 12. Morbid obesity Continue current medications Discharge to longterm when precertification is obtained Code Visit Inpatient E&M: 89990 Subs Hosp L2
[2019-01-31 16:55] LABS: Bedside Glucose 112 mg/dL (70-110)
[2019-01-31] MEDS: traZODone 50 MG Tablet PO (21:48)
[2019-01-31 22:31] LABS: Bedside Glucose 150 mg/dL (70-110)
[2019-02-01] VITALS (8 sets, daily range): BP systolic 121–164; BP diastolic 61–71; PULSE 63–71; RESP 18; TEMP 36.6–37; O2SAT 95–98
[2019-02-01] MEDS: HYDROmorphone 2 MG TABLET PO ×2 (02:28→09:30)
[2019-02-01] MEDS: Levothyroxine 112 MCG Tablet PO (06:22)
[2019-02-01 07:01] LABS: Bedside Glucose 75 mg/dL (70-110)
[2019-02-01] MEDS: Paroxetine 20 MG Tablet 40 MG PO (09:26)
[2019-02-01] MEDS: Divalproex (ER) 500 MG Tablet PO ×2 (09:26→23:24)
[2019-02-01] MEDS: Furosemide 40 MG Tablet PO ×2 (09:26→16:58)
[2019-02-01] MEDS: Menthol/Lanolin/Calamine/Znox 113 GM Tube 1 APPLIC TOPICAL ×4 (09:26→23:22)
[2019-02-01] MEDS: Senna/Docusate Sodium 1 Tablet 2 TABLET PO ×2 (09:26→23:23)
[2019-02-01] MEDS: Empagliflozin 25 MG Tablet PO (09:26)
[2019-02-01] MEDS: LINAGLIPTIN 5 MG TABLET PO (09:26)
[2019-02-01] MEDS: Losartan Potassium 100 MG Tablet PO ×2 (09:26→23:23)
[2019-02-01] MEDS: Allopurinol 100 MG Tablet PO (09:26)
[2019-02-01] MEDS: Glucerna Shake 120 ML LIQUID PO ×2 (09:26→17:01)
[2019-02-01] MEDS: Enoxaparin 40 MG/0.4 ML Syringe SC (09:27)
[2019-02-01] MEDS: Gabapentin 300 MG Capsule PO ×2 (09:27→23:24)
[2019-02-01] MEDS: Metoprolol(XL)Succ 25 MG Tablet 12.5 MG PO ×2 (09:27→23:25)
[2019-02-01 12:00] LABS: Bedside Glucose 109 mg/dL (70-110)
[2019-02-01 17:20] LABS: Bedside Glucose 129 mg/dL (70-110)
--- NOTE | 2019-02-01 18:07 | PCM.PROGNOTE ---
Patient Problems: Active and Suspected Problems (Last Reviewed 01/26/19 @ 17:02 by Bib Judge DO) Knee pain, right (Acute) Subjective: No complaints today, pain is adequately controlled He is afebrile. Blood pressures are improving. Maintaining adequate oxygen saturation on room air ranging from 96-98% No complaints Objective: GENERAL: alert, oriented X 3, Cooperative, NAD, very [place] ORAL: moist mucosa, no mucosal lesions NECK: No JVD, supple, trachea midline LUNGS: CTA, symmetric chest expansion, diminished HEART: RRR, Normal S1 and S2, no rub, no gallop, no murmur ABDOMEN: soft, NT, ND, BS present, no guarding with palpation EXTREMITIES: no edema, no cyanosis, no calf tenderness SKIN: No rashes, no breakdown NEUROLOGIC: no focal neurologic deficits PSYCH: appropriate, normal affect, pleasant - Physical Exam Vital Signs Temp Pulse Resp BP Pulse Ox 98.6 F 63 18 126/62 H 96 02/01/19 14:50 02/01/19 14:50 02/01/19 14:50 02/01/19 14:50 02/01/19 14:50 Oxygen Flow Rate (L/min) 2 Oxygen Delivery Method Room Air Weight: 267 lb 4.015 oz Body Mass Index (BMI) 40.6 Finger Stick Blood Glucose 129 Intake and Output for Last 24 Hours 01/30/19 01/31/19 02/01/19 23:59 23:59 23:59 Intake Total 600 / 600 600 / 600 1520 / 1520 Output Total 200 / 200 450 / 450 Balance 400 / 400 600 / 600 1070 / 1070 POC Glucose 02/01/19 02/01/19 02/01/19 16:56 11:55 06:21 POC Glucose 129 H 109 75 01/31/19 21:45 POC Glucose 150 H Medical Necessity - Tobacco Use Smoking Status: Former smoker Tobacco Use: Non-smoker Assessment/Plan All Active Problems (Last Reviewed 01/26/19 @ 17:02 by Bib Judge DO) Knee pain, right (Acute) Preop cardiovascular exam (Acute) Skin tear of right lower leg without complication (Acute) Cellulitis (Resolved) Hypokalemia (Resolved) Impressions 1. Acute mechanical fall resulting in proximal tibia and fibular fractures. Open reduction internal fixation of right bicondylar tibial plateau fracture on 01/29/[address] Rutledge. Awaiting precertification for transfer to nursing home. 2. Hypertension 3. Diabetes mellitus type 2 4. Dyslipidemia 5. Hypothyroidism 6. Gout 7. History of a cochlear implant 8. Obstructive sleep apnea 9. GERD 10. Lumbar canal stenosis 11. Generalized osteoarthritis 12. Morbid obesity Continue current medications Discharge to nursing home when precertification is obtained Code Visit Inpatient E&M: 37115 Subs Hosp L1
[2019-02-01] MEDS: traZODone 50 MG Tablet PO (23:23)
[2019-02-01 23:26] LABS: Bedside Glucose 119 mg/dL (70-110)
[2019-02-01] MEDS: Acetaminophen 325 MG Tablet 650 MG PO (23:32)
[2019-02-02] VITALS (8 sets, daily range): BP systolic 113–171; BP diastolic 57–90; PULSE 62–70; RESP 16–18; TEMP 36.6–37.1; O2SAT 94–99
[2019-02-02] MEDS: Levothyroxine 112 MCG Tablet PO (05:08)
[2019-02-02] MEDS: HYDROmorphone 2 MG TABLET PO (05:08)
[2019-02-02 07:11] LABS: Bedside Glucose 94 mg/dL (70-110)
[2019-02-02] MEDS: Glucerna Shake 120 ML LIQUID PO ×3 (08:57→16:40)
[2019-02-02] MEDS: Menthol/Lanolin/Calamine/Znox 113 GM Tube 1 APPLIC TOPICAL ×4 (08:57→20:15)
[2019-02-02] MEDS: Furosemide 40 MG Tablet PO ×2 (08:58→16:40)
[2019-02-02] MEDS: Divalproex (ER) 500 MG Tablet PO ×2 (08:58→20:14)
[2019-02-02] MEDS: Paroxetine 20 MG Tablet 40 MG PO (08:59)
[2019-02-02] MEDS: Empagliflozin 25 MG Tablet PO (08:59)
[2019-02-02] MEDS: Enoxaparin 40 MG/0.4 ML Syringe SC (08:59)
[2019-02-02] MEDS: Senna/Docusate Sodium 1 Tablet 2 TABLET PO ×2 (09:00→20:13)
[2019-02-02] MEDS: Allopurinol 100 MG Tablet PO (09:00)
[2019-02-02] MEDS: LINAGLIPTIN 5 MG TABLET PO (09:01)
[2019-02-02] MEDS: Gabapentin 300 MG Capsule PO ×2 (09:02→20:13)
--- NOTE | 2019-02-02 09:56 | PN_ITS ---
Patient Problems: Active and Suspected Problems (Last Reviewed 01/26/19 @ 17:02 by Bib Judge DO) Knee pain, right (Acute) Subjective: Patient is a 73-year-old male with a past medical history of chronic diastolic congestive heart failure, diabetes mellitus type 2, GERD, hypothyroidism, lumbar canal stenosis, osteoarthritis, depression, gout, chronic venous insufficiency, EH, venous stasis ulcers of the lower extremities, morbid obesity, hyperlipidemia, hypertension and nonrheumatic tricuspid valve insufficiency who presented to [facility] [place] on 01/26/2019 after a fall. X-rays revealed a proximal tibia fracture and proximal fibula fracture. He was seen in consultation by Dr. Rutledge and taken to surgery on 01/29/2019 for open reduction with internal fixation of right bicondylar tibial plateau fracture. We are waiting for pre-certification from the insurance company to transfer to TCU. AF, VSS Doing well. No complaints Objective: GENERAL: alert, oriented X 3, Cooperative, NAD, very [place] (has a cochlear implant) ORAL: moist mucosa, no mucosal lesions NECK: No JVD, supple, trachea midline LUNGS: CTA, symmetric chest expansion, diminished HEART: RRR, Normal S1 and S2, no rub, no gallop, no murmur ABDOMEN: soft, NT, ND, BS present, no guarding with palpation EXTREMITIES: no edema, no cyanosis, no calf tenderness SKIN: No rashes, no breakdown NEUROLOGIC: no focal neurologic deficits PSYCH: appropriate, normal affect, pleasant - Physical Exam Vital Signs Temp Pulse Resp BP Pulse Ox 98.7 F 62 16 113/69 95 02/02/19 08:48 02/02/19 08:48 02/02/19 08:48 02/02/19 08:48 02/02/19 08:48 Oxygen Flow Rate (L/min) 2 Oxygen Delivery Method Room Air Weight: 267 lb 4.015 oz Body Mass Index (BMI) 40.6 Finger Stick Blood Glucose 129 Intake and Output for Last 24 Hours 01/31/19 02/01/19 02/02/19 23:59 23:59 23:59 Intake Total 600 / 600 2520 / 2520 250 / 250 Output Total 450 / 450 650 / 650 Balance 600 / 600 2070 / 2070 -400 / -400 POC Glucose 02/02/19 02/01/19 02/01/19 07:03 23:20 16:56 POC Glucose 94 119 H 129 H 02/01/19 11:55 POC Glucose 109 Medical Necessity - Tobacco Use Smoking Status: Former smoker Tobacco Use: Non-smoker Assessment/Plan All Active Problems (Last Reviewed 01/26/19 @ 17:02 by Bib Judge DO) Knee pain, right (Acute) Preop cardiovascular exam (Acute) Skin tear of right lower leg without complication (Acute) Cellulitis (Resolved) Hypokalemia (Resolved) Impressions 1. Acute mechanical fall resulting in proximal tibia and fibular fractures. Open reduction internal fixation of right bicondylar tibial plateau fracture on 01/29/[address] Rutledge. Awaiting precertification for transfer to half-way. 2. Hypertension 3. Diabetes mellitus type 2 4. Dyslipidemia 5. Hypothyroidism 6. Gout 7. History of a cochlear implant 8. Obstructive sleep apnea 9. GERD 10. Lumbar canal stenosis 11. Generalized osteoarthritis 12. Morbid obesity Continue current medications Discharge to half-way when precertification is obtained
[2019-02-02] MEDS: Acetaminophen 325 MG Tablet 650 MG PO ×2 (11:49→20:13)
[2019-02-02] MEDS: Insulin Lispro 100 UNIT/ML INSULN.PEN SQ (11:53)
[2019-02-02] MEDS: Losartan Potassium 100 MG Tablet PO ×2 (11:56→20:14)
[2019-02-02] MEDS: Metoprolol(XL)Succ 25 MG Tablet 12.5 MG PO ×2 (11:56→20:15)
[2019-02-02 12:16] LABS: Bedside Glucose 169 mg/dL (70-110)
--- NOTE | 2019-02-02 13:06 | PN.ORTHO_ITS ---
Patient Problems: Active and Suspected Problems (Last Reviewed 01/26/19 @ 17:02 by Bib Judge DO) Knee pain, right (Acute) Subjective: Patient is resting in chair comfortably. Overall doing well. Pain appears to be well controlled. No numbness and tingling distally. No calf pain. No chest pain or shortness of breath. Does complain of some pain around the incision. Objective: Postoperative films were reviewed showing well reduced proximal tibia fracture. - Physical Exam General: Alert, Oriented x3, Cooperative Extremities: - - Right lower extremity: Dressing is clean dry and intact. Dressing was removed incision was examined. For the most part incision is clean and dry and healing well. There is one small area of the incision at the mid to distal third junction with no active drainage but moisture underneath the dress ing. Xeroform dressing was removed. Dry dressing was replaced. Sensations intact to light touch saphenous, sural, superficial peroneal, deep peroneal, and tibial distributions Motors intact EHL, DF, PF calves are soft and supple Vital Signs Temp Pulse Resp BP Pulse Ox 98.7 F 70 16 142/66 H 95 02/02/19 08:48 02/02/19 11:56 02/02/19 08:48 02/02/19 11:56 02/02/19 08:48 Oxygen Flow Rate (L/min) 2 Oxygen Delivery Method Room Air Weight: 267 lb 4.015 oz Body Mass Index (BMI) 40.6 Finger Stick Blood Glucose 129 Intake and Output for Last 24 Hours 01/31/19 02/01/19 02/02/19 23:59 23:59 23:59 Intake Total 600 / 600 2520 / 2520 750 / 750 Output Total 450 / 450 650 / 650 Balance 600 / 600 2070 / 2070 100 / 100 POC Glucose 02/02/19 02/02/19 02/01/19 11:51 07:03 23:20 POC Glucose 169 H 94 119 H 02/01/19 16:56 POC Glucose 129 H Medical Necessity - Tobacco Use Smoking Status: Former smoker Tobacco Use: Non-smoker Assessment/Plan All Active Problems (Last Reviewed 01/26/19 @ 17:02 by Bib Judge DO) Knee pain, right (Acute) Preop cardiovascular exam (Acute) Skin tear of right lower leg without complication (Acute) Cellulitis (Resolved) Hypokalemia (Resolved) 1. S/P open reduction internal fixation right bicondylar tibial plateau fracture POD #4 2. Continue Pain Medications: Continue pain management per medicine 3. DVT Prophylaxis: Currently on Lovenox. Would recommend switching over to 81 mg aspirin twice daily to reduce the risk of hematomas upon discharge. 4. PT/OT: Nonweightbearing right lower extremity. Continue with knee immobilizer at all times except for range of motion with physical therapy as well as bathing/hygiene. Otherwise we would like patient to be placed back in the knee immobilizer to reduce tension on skin and promote healing 5. Encouraged Incentive Spirometry 6. Continue postoperative medical management per medicine 7. Dressing: Continue with dry dressing changes daily using ABDs. 8. Disposition: Plan is for patient to be discharged to transitional care unit once pre-CERT has been obtained. Okay for discharge from orthopedic standpoint when medically stable. Patient should follow-up in the office with orthopedics 2 weeks after surgical date. He will need radiographic follow-up at that time and his wound need to be examined prior to suture removal. [facility] Office:
[2019-02-02 17:00] LABS: Bedside Glucose 109 mg/dL (70-110)
[2019-02-02] MEDS: traZODone 50 MG Tablet PO (20:13)
[2019-02-02 23:11] LABS: Bedside Glucose 160 mg/dL (70-110)
[2019-02-03] VITALS (7 sets, daily range): BP systolic 137–156; BP diastolic 66–79; PULSE 57–85; RESP 14–18; TEMP 36.4–37.2; O2SAT 94–96
[2019-02-03] MEDS: Acetaminophen 325 MG Tablet 650 MG PO (02:33)
[2019-02-03] MEDS: Levothyroxine 112 MCG Tablet PO (06:46)
[2019-02-03] MEDS: Insulin Lispro 100 UNIT/ML INSULN.PEN SQ (06:46)
[2019-02-03 06:56] LABS: Bedside Glucose 150 mg/dL (70-110)
[2019-02-03] MEDS: Losartan Potassium 100 MG Tablet PO (08:42)
[2019-02-03] MEDS: Gabapentin 300 MG Capsule PO (08:42)
[2019-02-03] MEDS: Furosemide 40 MG Tablet PO (08:42)
[2019-02-03] MEDS: Senna/Docusate Sodium 1 Tablet 2 TABLET PO (08:43)
[2019-02-03] MEDS: Metoprolol(XL)Succ 25 MG Tablet 12.5 MG PO (08:43)
[2019-02-03] MEDS: Allopurinol 100 MG Tablet PO (08:43)
[2019-02-03] MEDS: Paroxetine 20 MG Tablet 40 MG PO (08:46)
[2019-02-03] MEDS: LINAGLIPTIN 5 MG TABLET PO (08:47)
[2019-02-03] MEDS: Divalproex (ER) 500 MG Tablet PO (08:47)
[2019-02-03] MEDS: Enoxaparin 40 MG/0.4 ML Syringe SC (08:48)
[2019-02-03] MEDS: Glucerna Shake 120 ML LIQUID PO (08:49)
--- NOTE | 2019-02-03 09:26 | CASEMGMT ---
Social work: TC from Desiree Edwards RN. Desiree states that pre cert has been obtained and patient can be admitted to TCU today. Tata Anna RN aware and will let covering hospitalist know. Spoke with patient in room and by phone with patient's permission. Both aware and agreeable to admission to TCU today. PLAN: Patient to be discharged to TCU today for skilled care. BERLIN Mullen
[2019-02-03] MEDS: Menthol/Lanolin/Calamine/Znox 113 GM Tube 1 APPLIC TOPICAL (11:05)
--- NOTE | 2019-02-03 11:56 | PCM.TXEXTCAR ---
- Diet 01/30/19 10:26 Diet: Regular Diet Is pt able to select menu?: No - Wound(s) RIGHT LEG Wound Type: Surgical Incision Dressing Change: Dry Sterile Dressing - Therapies Weight Bearing: Non weight bearing Extremity Affected:: Right Lower Physical Therapy: Eval and Treat Occupational Therapy: Eval and Treat - Problem/Diagnosis (1) Knee pain, right Status: Acute Current Visit: Yes - Allergies/Procedures Done in Hospital Allergies/Adverse Reactions: Allergies cocaine Allergy (Verified 09/11/18 13:52) Unknown atorvastatin calcium [From Lipitor] Adverse Reaction (Verified 09/11/18 13:52) Pain in joints haloperidol [From Haldol] Adverse Reaction (Verified 09/11/18 13:52) Other WENT CRAZY morphine Adverse Reaction (Verified 09/11/18 13:52) Other extremely aggitated oxycodone [From OxyIR] Adverse Reaction (Verified 09/11/18 13:52) Pain in joints extremely aggitated prednisone Adverse Reaction (Verified 09/11/18 13:52) ANXIOUS, INSOMNIA STERIODS Adverse Reaction (Uncoded 08/16/18 02:59) Other ANXIETY INSOMNIA Procedures: - - ORIF right tib fib fracture - Type of Care/Length of Stay Estimated LOS: Convalescent Care Less Than 30 days Type of Care Needed: Skilled Rehab Potential: Fair Prognosis: Fair - Additional Orders/Day of Discharge H&P will serve as current which was dated: 01/26/19 Day of Discharge: 02/03/19 - Dietary and Speech Recommendations Dietitian Recommendations/Changes: Rec 1999 calorie controlled, cardiac diet. - Follow Up Care Primary Care Physician: Gil Wheeler Chi, MD [Primary Care Provider] - Within 2 Weeks Please Follow Up With: Dominick Rutledge MD When: 2 weeks
--- NOTE | 2019-02-03 11:58 | PCM.DC.SUM ---
Discharge Date and Diagnosis - Problem List Patient Problems: Active and Suspected Problems (Last Reviewed 01/26/19 @ 17:02 by Bib Judge DO) Fracture of right tibia and fibula (Acute) Date of Admission: 01/26/19 Date of Discharge: 02/03/19 - Primary Discharge Diagnosis Active and Suspected Problems (Last Reviewed 01/26/19 @ 17:02 by Bib Judge DO) Knee pain, right (Acute) - Secondary Discharge Diagnosis Chronic Problems (Last Reviewed 01/26/19 @ 17:02 by Bib Judge DO) Weakness (Chronic) Chronic diastolic heart failure (Chronic) Lymphedema (Chronic) Diabetes mellitus (Chronic) GERD (gastroesophageal reflux disease) (Chronic) Hypothyroidism (Chronic) Lumbar spinal stenosis (Chronic) Osteoarthritis of knees, bilateral (Chronic) Depression (Chronic) Gout (Chronic) Neuropathic pain (Chronic) Low back pain (Chronic) Chronic venous insufficiency (Chronic) Dependent edema (Chronic) Debility (Chronic) Leg swelling (Chronic) EH (obstructive sleep apnea) (Chronic) Tricuspid valve insufficiency (Chronic) Venous stasis ulcer (Chronic) Obesity, morbid, BMI 40.0-49.9 (Chronic) Abnormal electrocardiogram (Chronic) Non-rheumatic tricuspid valve insufficiency (Chronic) Chronic diastolic (congestive) heart failure (Chronic) Hyperlipidemia (Chronic) Hypertension (Chronic) Chronic acquired lymphedema (Chronic) Hospital Course and Treatment Imaging Results: Clinical Impression(s) from Imaging Studies Tibia/Fibula X-Ray 01/26/19 14:56 IMPRESSION: 1. Proximal tibia and fibular fractures. 2. Medial compartment hemiarthroplasty. Electronically Signed: Jose Wisdom MD at 16:22 EDT , Service support , Lower Extremity CT 01/26/19 17:48 IMPRESSION: 1. Comminuted fractures of proximal tibial metaphysis and epiphysis. 2. Displaced fracture of the proximal fibula. 3. Hemarthrosis. 4. Status post medial femorotibial hemiarthroplasty. Electronically Signed: Sydney Dupree MD at 10:11 EDT , Service support , Knee X-Ray 01/29/19 14:45 IMPRESSION: Status post ORIF of the tibial plateau fracture. There is good alignment. Electronically Signed: Sherman Trivedi, at 13:53 EDT , Service support , Tibia/Fibula X-Ray 01/29/19 16:40 IMPRESSION: 1. Comminuted intra-articular fracture of the proximal tibial metaphysis now fixed in general anatomic alignment by a lateral metal sideplate and screws. 2. Comminuted fracture of the proximal fibular metadiaphysis remains in gross anatomic alignment. 3. Hardware of prior medial right knee hemiarthroplasty again noted in place. Electronically Signed: Chadwick Angela MD at 14:28 EDT , Service support , Art Rutledge MD: orthopaedics. Operations: - - S/P open reduction internal fixation right bicondylar tibial plateau fracture Summary of Care Provided: The patient is a 73 year old M who had a mechanical fall on the . Patient was found to have a right proximal tibial and fibula fracture. Patient was seen by orthopedics and underwent an open reduction internal fixation right bicondylar tibial plateau fracture on the by Dr. Rutledge. Since hospitalization was uncomplicated and patient was waiting over the weekend for precertification for senior living facility. That was obtained today. Additional care unit today. When patient presented he Sri he has a very poor performance status more or less [facility] Patient had very limited activity. Patient had a description of his legs just giving out when he presented. Feel the patient's performance status is very poor and that he was very weak on top of that that led to this fracture. Patient did have a low 25 hydroxy vitamin D level of 20. Patient was on ergocalciferol 50,000 units monthly recommended changing to weekly for the next several weeks and then to start cholecalciferol 2000 units daily. Patient will need a repeat 25 hydroxy vitamin D level in the next 3 months to make sure he is not getting hypervitaminosis D. [] Patient Problems: Active and Suspected Problems (Last Reviewed 01/26/19 @ 17:02 by Bib Judge DO) Fracture of right tibia and fibula (Acute) - Physical Exam General: Alert, - - hard of hearing. HEENT: Atraumatic, Normocephalic Neck: No Nodes, Thyroid Normal Size and Texture Lungs: Clear to auscultation, Normal air movement, No rhonchi, No wheeze Cardiovascular: Regular rate, Regular Rhythm, Normal S1, Normal S2, No murmurs Abdomen: Bowel Sounds Present, Soft, Non Tender, Non-Distended, No Hepato-splenomegaly Extremities: No edema, No Calf Tenderness Psych/Mental Status: Normal Affect, Appropriate Vital Signs Temp Pulse Resp BP Pulse Ox 36.4 C L 57 L 16 151/79 H 96 02/03/19 08:35 02/03/19 08:43 02/03/19 08:35 02/03/19 08:43 02/03/19 09:15 Oxygen Flow Rate (L/min) 2 Oxygen Delivery Method Room Air Weight: 121.223 kg Body Mass Index (BMI) 40.6 Finger Stick Blood Glucose 129 Intake and Output for Last 24 Hours 02/01/19 02/02/19 02/03/19 23:59 23:59 23:59 Intake Total 2520 / 2520 1350 / 1350 820 / 820 Output Total 450 / 450 850 / 850 700 / 700 Balance 2069 / 2070 500 / 500 120 / 120 POC Glucose 02/03/19 02/02/19 02/02/19 06:45 22:16 16:34 POC Glucose 150 H 160 H 109 02/02/19 11:51 POC Glucose 169 H Discharge Diet: Low fat/ Low Cholesterol, 1800 Calorie Control Diet Discharge Activity: Return to Normal Activity Weight Bearing Status: No weight bearing Keep extremity elevated above heart level: Right Leg Call your doctor if your incision/area has: Continuous Slow Oozing, Sudden Increased Bleeding, Increased Pain/ Swelling Call your doctor if you observe: Fever of 101 or Higher, Inability to urinate Home Medications: Medications to take at Discharge Paroxetine HCl [Paxil] 40 mg PO DAILY 09/27/16 Potassium Chloride [K-Dur] 20 meq PO BID 09/27/16 Simvastatin [Zocor] 40 mg PO QHS 09/27/16 Sitagliptin Phosphate [Januvia] 100 mg PO DAILY 09/27/16 Torsemide [Demadex] 20 mg PO BID 09/27/16 traZODone [Desyrel] 50 mg PO QHS 09/27/16 Divalproex Sodium [Depakote] 500 mg PO BID 08/14/17 Allopurinol 100 mg PO DAILY 05/17/18 gabapentin 300 mg capsule 300 mg PO BID cap 07/17/18 levothyroxine 100 mcg capsule 112 mcg PO DAILY 07/17/18 Diclofenac Sodium 25 mg PO BID 08/16/18 Empagliflozin [Jardiance] 25 mg PO DAILY #30 tablet 09/09/18 Insulin Glargine [Lantus SoloStar Pen] 75 units SC QHS pen 09/09/18 Losartan Potassium 100 mg PO BID #60 tablet 09/09/18 Metoprolol(XL)Succ [Toprol Xl (Beta Romel)] 12.5 mg PO BID #30 tablet 09/09/18 Dulaglutide [Trulicity] 1.5 mg SQ QWEEK 01/26/19 Acetaminophen [Tylenol Tablet] 650 mg PO Q6H PRN PRN tablet 02/03/19 Aspirin 81 mg PO BID #1 tab.chew 02/03/19 Cholecalciferol (Vitamin D3) [Vitamin D3] 2,000 unit PO DAILY #1 capsule 02/03/19 Ergocalciferol (Vitamin D2) [Vitamin D2] 50,000 unit PO QWEEK #0 02/03/19 Glucerna Shake 120 ml PO TIDCM liquid 02/03/19 HYDROmorphone tablet [Dilaudid] 2 mg PO Q6H PRN 3 Days #12 tab 02/03/19 Insulin Lispro [Humalog KwikPen] See Protocol SQ TIDAC insuln.pen 02/03/19 Following Prescrptions Were Given to Patient: Cholecalciferol (Vitamin D3) [Vitamin D3] 2,000 unit PO DAILY #1 capsule Aspirin 81 mg PO BID #1 tab.chew HYDROmorphone tablet [Dilaudid] 2 mg PO Q6H PRN 3 Days #12 tab PRN Reason: Severe Pain (6-08/28) Primary Care Physician: Gil Wheeler Chi, MD [Primary Care Provider] - Within 2 Weeks Please Follow Up With: Dominick Rutledge MD When: 2 weeks [facility]position: [facility] facility Minutes spent on discharge:: 32 Patient Condition:: Fair Medical Necessity - Tobacco Use Smoking Status: Former smoker Tobacco Use: Non-smoker Meaningful Use Info Meaningful Use Diagnoses (Choose all that apply): None applicable Code Visit Inpatient E&M: 55671 Disch Hosp
--- NOTE | 2019-02-03 12:03 | DS.PCM_ITS ---
Discharge Date and Diagnosis - Problem List Patient Problems: Active and Suspected Problems (Last Reviewed 01/26/19 @ 17:02 by Bib Judge DO) Fracture of right tibia and fibula (Acute) Date of Admission: 01/26/19 Date of Discharge: 02/03/19 - Primary Discharge Diagnosis Active and Suspected Problems (Last Reviewed 01/26/19 @ 17:02 by Bib Judge DO) Knee pain, right (Acute) - Secondary Discharge Diagnosis Chronic Problems (Last Reviewed 01/26/19 @ 17:02 by Bib Judge DO) Weakness (Chronic) Chronic diastolic heart failure (Chronic) Lymphedema (Chronic) Diabetes mellitus (Chronic) GERD (gastroesophageal reflux disease) (Chronic) Hypothyroidism (Chronic) Lumbar spinal stenosis (Chronic) Osteoarthritis of knees, bilateral (Chronic) Depression (Chronic) Gout (Chronic) Neuropathic pain (Chronic) Low back pain (Chronic) Chronic venous insufficiency (Chronic) Dependent edema (Chronic) Debility (Chronic) Leg swelling (Chronic) EH (obstructive sleep apnea) (Chronic) Tricuspid valve insufficiency (Chronic) Venous stasis ulcer (Chronic) Obesity, morbid, BMI 40.0-49.9 (Chronic) Abnormal electrocardiogram (Chronic) Non-rheumatic tricuspid valve insufficiency (Chronic) Chronic diastolic (congestive) heart failure (Chronic) Hyperlipidemia (Chronic) Hypertension (Chronic) Chronic acquired lymphedema (Chronic) Hospital Course and Treatment Imaging Results: Clinical Impression(s) from Imaging Studies Tibia/Fibula X-Ray 01/26/19 14:56 IMPRESSION: 1. Proximal tibia and fibular fractures. 2. Medial compartment hemiarthroplasty. Electronically Signed: Jose Wisdom MD at 16:22 EDT , Service support , Lower Extremity CT 01/26/19 17:48 IMPRESSION: 1. Comminuted fractures of proximal tibial metaphysis and epiphysis. 2. Displaced fracture of the proximal fibula. 3. Hemarthrosis. 4. Status post medial femorotibial hemiarthroplasty. Electronically Signed: Sydney Dupree MD at 10:11 EDT , Service support , Knee X-Ray 01/29/19 14:45 IMPRESSION: Status post ORIF of the tibial plateau fracture. There is good alignment. Electronically Signed: Sherman Trivedi, at 13:53 EDT , Service support , Tibia/Fibula X-Ray 01/29/19 16:40 IMPRESSION: 1. Comminuted intra-articular fracture of the proximal tibial metaphysis now fixed in general anatomic alignment by a lateral metal sideplate and screws. 2. Comminuted fracture of the proximal fibular metadiaphysis remains in gross anatomic alignment. 3. Hardware of prior medial right knee hemiarthroplasty again noted in place. Electronically Signed: Chadwick Angela MD at 14:28 EDT , Service support , Art Rutledge MD: orthopaedics. Operations: - - S/P open reduction internal fixation right bicondylar tibial plateau fracture Summary of Care Provided: The patient is a 73 year old M who had a mechanical fall on the . Patient was found to have a right proximal tibial and fibula fracture. Patient was seen by orthopedics and underwent an open reduction internal fixation right bicondylar tibial plateau fracture on the by Dr. Rutledge. Since hospitalization was uncomplicated and patient was waiting over the weekend for precertification for half-way facility. That was obtained today. Additional care unit today. When patient presented he Sri he has a very poor performance status more or less he would [facility]. Patient had very limited activity. Patient had a description of his legs just giving out when he presented. Feel the patient's performance status is very poor and that he was very weak on top of that that led to this fracture. Patient did have a low 25 hydroxy vitamin D level of 20. Patient was on ergocalciferol 50,000 units monthly recommended changing to weekly for the next several weeks and then to start cholecalciferol 2000 units daily. Patient will need a repeat 25 hydroxy vitamin D level in the next 3 months to make sure he is not getting hypervitaminosis D. [] Patient Problems: Active and Suspected Problems (Last Reviewed 01/26/19 @ 17:02 by Bib Judge DO) Fracture of right tibia and fibula (Acute) - Physical Exam General: Alert, - - hard of hearing. HEENT: Atraumatic, Normocephalic Neck: No Nodes, Thyroid Normal Size and Texture Lungs: Clear to auscultation, Normal air movement, No rhonchi, No wheeze Cardiovascular: Regular rate, Regular Rhythm, Normal S1, Normal S2, No murmurs Abdomen: Bowel Sounds Present, Soft, Non Tender, Non-Distended, No Hepato- splenomegaly Extremities: No edema, No Calf Tenderness Psych/Mental Status: Normal Affect, Appropriate Vital Signs Temp Pulse Resp BP Pulse Ox 36.4 C L 57 L 16 151/79 H 96 02/03/19 08:35 02/03/19 08:43 02/03/19 08:35 02/03/19 08:43 02/03/19 09:15 Oxygen Flow Rate (L/min) 2 Oxygen Delivery Method Room Air Weight: 121.223 kg Body Mass Index (BMI) 40.6 Finger Stick Blood Glucose 129 Intake and Output for Last 24 Hours 02/01/19 02/02/19 02/03/19 23:59 23:59 23:59 Intake Total 2520 / 2520 1350 / 1350 820 / 820 Output Total 450 / 450 850 / 850 700 / 700 Balance 2069 / 2070 500 / 500 120 / 120 POC Glucose 02/03/19 02/02/19 02/02/19 06:45 22:16 16:34 POC Glucose 150 H 160 H 109 02/02/19 11:51 POC Glucose 169 H Discharge Diet: Low fat/ Low Cholesterol, 1800 Calorie Control Diet Discharge Activity: Return to Normal Activity Weight Bearing Status: No weight bearing Keep extremity elevated above heart level: Right Leg Call your doctor if your incision/area has: Continuous Slow Oozing, Sudden Increased Bleeding, Increased Pain/ Swelling Call your doctor if you observe: Fever of 101 or Higher, Inability to urinate Home Medications: Medications to take at Discharge Paroxetine HCl [Paxil] 40 mg PO DAILY 09/27/16 Potassium Chloride [K-Dur] 20 meq PO BID 09/27/16 Simvastatin [Zocor] 40 mg PO QHS 09/27/16 Sitagliptin Phosphate [Januvia] 100 mg PO DAILY 09/27/16 Torsemide [Demadex] 20 mg PO BID 09/27/16 traZODone [Desyrel] 50 mg PO QHS 09/27/16 Divalproex Sodium [Depakote] 500 mg PO BID 08/14/17 Allopurinol 100 mg PO DAILY 05/17/18 gabapentin 300 mg capsule 300 mg PO BID cap 07/17/18 levothyroxine 100 mcg capsule 112 mcg PO DAILY 07/17/18 Diclofenac Sodium 25 mg PO BID 08/16/18 Empagliflozin [Jardiance] 25 mg PO DAILY #30 tablet 09/09/18 Insulin Glargine [Lantus SoloStar Pen] 75 units SC QHS pen 09/09/18 Losartan Potassium 100 mg PO BID #60 tablet 09/09/18 Metoprolol(XL)Succ [Toprol Xl (Beta Romel)] 12.5 mg PO BID #30 tablet 09/09/18 Dulaglutide [Trulicity] 1.5 mg SQ QWEEK 01/26/19 Acetaminophen [Tylenol Tablet] 650 mg PO Q6H PRN PRN tablet 02/03/19 Aspirin 81 mg PO BID #1 tab.chew 02/03/19 Cholecalciferol (Vitamin D3) [Vitamin D3] 2,000 unit PO DAILY #1 capsule 02/03/19 Ergocalciferol (Vitamin D2) [Vitamin D2] 50,000 unit PO QWEEK #0 02/03/19 Glucerna Shake 120 ml PO TIDCM liquid 02/03/19 HYDROmorphone tablet [Dilaudid] 2 mg PO Q6H PRN 3 Days #12 tab 02/03/19 Insulin Lispro [Humalog KwikPen] See Protocol SQ TIDAC insuln.pen 02/03/19 Following Prescrptions Were Given to Patient: Cholecalciferol (Vitamin D3) [Vitamin D3] 2,000 unit PO DAILY #1 capsule Aspirin 81 mg PO BID #1 tab.chew HYDROmorphone tablet [Dilaudid] 2 mg PO Q6H PRN 3 Days #12 tab PRN Reason: Severe Pain (6-08/28) Primary Care Physician: Gil Wheeler Chi, MD [Primary Care Provider] - Within 2 Weeks Please Follow Up With: Dominick Rutledge MD When: 2 weeks Disposition: [facility] facility Minutes spent on discharge:: 32 Patient Condition:: Fair Medical Necessity - Tobacco Use Smoking Status: Former smoker Tobacco Use: Non-smoker Meaningful Use Info Meaningful Use Diagnoses (Choose all that apply): None applicable Code Visit Inpatient E&M: 13186 Disch Hosp
[2019-02-03] MEDS: Empagliflozin 25 MG Tablet PO (13:45)
--- NOTE | 2019-02-03 13:58 | NURSING ---
Report called to TCU wire charger Mary.
[2019-02-04 01:31] LABS: Bedside Glucose 120 mg/dL (70-110)
== END 2019-02-03 14:25 | disposition skilled nursing facility (03) | DRG 493 ==
LOC: ED 16:16 → MS3 17:06
PROVIDERS: Anesthesiology; Internal Medicine; Specialist; Emergency Provider Emergency Medicine; Family Provider Family Medicine Geriatric Medicine; PCP Family Medicine Geriatric Medicine
PROC: 0QSG04Z Reposition Right Tibia with Internal Fixation Device, Open Approach (ICD-10-PCS; principal; 2019-01-29 14:40)
DX: S82.141A Displaced bicondylar fracture of right tibia, initial encounter for closed fracture (principal); M97.11XA Periprosthetic fracture around internal prosthetic right knee joint, initial encounter; I50.32 Chronic diastolic (congestive) heart failure; Z68.41 Body mass index [BMI] 40.0-44.9, adult; S82.831A Other fracture of upper and lower end of right fibula, initial encounter for closed fracture; W18.30XA Fall on same level, unspecified, initial encounter; Y92.012 Bathroom of single-family (private) house as the place of occurrence of the external cause; I11.0 Hypertensive heart disease with heart failure; E66.01 Morbid (severe) obesity due to excess calories; G47.33 Obstructive sleep apnea (adult) (pediatric); E11.9 Type 2 diabetes mellitus without complications; K21.9 Gastro-esophageal reflux disease without esophagitis; M10.9 Gout, unspecified; E03.9 Hypothyroidism, unspecified; Z96.21 Cochlear implant status; E78.5 Hyperlipidemia, unspecified; M15.9 Polyosteoarthritis, unspecified; F32.9 Major depressive disorder, single episode, unspecified; R53.81 Other malaise; I87.2 Venous insufficiency (chronic) (peripheral); Z87.891 Personal history of nicotine dependence; Z79.84 Long term (current) use of oral hypoglycemic drugs; M48.061 Spinal stenosis, lumbar region without neurogenic claudication; I36.1 Nonrheumatic tricuspid (valve) insufficiency
CPT/HCPCS: 36415; 73560; 73590; 73700; 76000; 80048; 82306; 82962; 83036; 83735; 84443; 85025; 85027; 85610; 85730; 86850; 86900; 93005; 97110; 97116; 97162; 97166; 97530; 99251; 99285; C1713; A4216; G0463; J2405

== ENCOUNTER 2019-02-03 14:37 | Inpatient (IN) | payer MEDICARE, SELFPAY ==
[2019-01-26 17:28] VITALS: BMI 40.6
[2019-02-03 14:40] VITALS: BP 125/64; PULSE 60; PULSE 72; RESP 18; TEMP 36.2; O2SAT 98; O2SAT 99; BMI 40.7
--- NOTE | 2019-02-03 14:41 | NURSING ---
Pt arrived via WC from [facility], at side
[2019-02-03 15:15] VITALS: BP 125/64; PULSE 60; RESP 18; TEMP 36.2; O2SAT 99
[2019-02-03 17:01] LABS: Bedside Glucose 174 mg/dL (70-110)
[2019-02-03] MEDS: Losartan Potassium 100 MG Tablet PO (17:36)
[2019-02-03] MEDS: Aspirin 81 MG TAB.CHEW PO (17:36)
[2019-02-03] MEDS: Furosemide 40 MG Tablet PO (17:37)
[2019-02-03] MEDS: Gabapentin 300 MG Capsule PO (17:37)
[2019-02-03] MEDS: Divalproex (ER) 500 MG Tablet PO (17:37)
[2019-02-03 17:38] VITALS: BP 125/64; PULSE 60
[2019-02-03] MEDS: Metoprolol(XL)Succ 25 MG Tablet 12.5 MG PO (17:38)
[2019-02-03] MEDS: Glucerna Shake 120 ML LIQUID PO (17:38)
[2019-02-03] MEDS: Insulin Lispro 100 UNIT/ML INSULN.PEN SC (17:40)
--- NOTE | 2019-02-03 18:42 | NURSING ---
while assessing pt skin, noted x1 staple to lower back scar from. Staple removed, no redness or s/s of infection at incision.
--- NOTE | 2019-02-03 20:15 | PCM.HP.STD ---
Problem List (1) Fall Status: Acute (2) Fracture of right tibia and fibula Status: Acute (3) Chronic diastolic heart failure Status: Chronic (4) Lymphedema Status: Chronic (5) Diabetes mellitus Status: Chronic (6) GERD (gastroesophageal reflux disease) Status: Chronic (7) Hypothyroidism Status: Chronic (8) Depression Status: Chronic (9) EH (obstructive sleep apnea) Status: Chronic (10) Obesity, morbid, BMI 40.0-49.9 Status: Chronic (11) Hyperlipidemia Status: Chronic Qualifiers: (12) Hypertension Status: Chronic Qualifiers: History of Present Illness Date of Admission: 02/03/19 Chief Complaint: Here for rehabilitation, strengthening, prior to discharge home with spouse. The patient is a 73 year old Male with below past medical history presented to [facility] Emergency Department 01/26/2019 with fall, right knee pain. 01/26/2019 X-ray right tib/fib showed proximal tib/fib fracture, medial compartment hemiarthroplasty. 01/26/2019 EKG sinus bradycardia, left axis deviation, left ventricular hypertrophy, anterolateral infarct. Unable to bear weight, right tib/fib fracture, immobilizer applied. 01/26/2019 Admit to Hospital. Consult Orthopedics. Consult PT/OT. 01/26/2019 CT right knee showed comminuted fracture proximal tibial metaphysis, epiphysis, displaced fracture proximal fibula, hemarthrosis. 01/29/2019 Dr. Rutledge performed open reduction internal fixation right bicondylar tibial plateau fracture. 02/02/2019 Hydralazine as needed for elevated blood pressure. Vitamin D supplementation recommended to decrease risk of falls, improve debility. 02/03/2019 Admit to TCU with debility, here for rehabilitation, strengthening, prior to discharge home with spouse. Past Medical History Past Medical History (Chronic Problems): Chronic Problems (Last Reviewed 01/26/19 @ 17:02 by Bib Judge DO) Weakness (Chronic) Chronic diastolic heart failure (Chronic) Lymphedema (Chronic) Diabetes mellitus (Chronic) GERD (gastroesophageal reflux disease) (Chronic) Hypothyroidism (Chronic) Lumbar spinal stenosis (Chronic) Osteoarthritis of knees, bilateral (Chronic) Depression (Chronic) Gout (Chronic) Neuropathic pain (Chronic) Low back pain (Chronic) Chronic venous insufficiency (Chronic) Dependent edema (Chronic) Debility (Chronic) Leg swelling (Chronic) EH (obstructive sleep apnea) (Chronic) Tricuspid valve insufficiency (Chronic) Venous stasis ulcer (Chronic) Obesity, morbid, BMI 40.0-49.9 (Chronic) Abnormal electrocardiogram (Chronic) Non-rheumatic tricuspid valve insufficiency (Chronic) Chronic diastolic (congestive) heart failure (Chronic) Hyperlipidemia (Chronic) Hypertension (Chronic) Chronic acquired lymphedema (Chronic) Medical History: Medical History (Last Reviewed 01/26/19 @ 17:02 by Bib Judge DO) Non-rheumatic tricuspid valve insufficiency (Chronic) I36.1 Chronic diastolic (congestive) heart failure (Chronic) I50.32 Hyperlipidemia (Chronic) E78.5 Hypertension (Chronic) I10 Asbestos exposure Z77.090 GERD (gastroesophageal reflux disease) K21.9 Hypothyroidism E03.9 Obstructive sleep apnea G47.33 Type 2 diabetes mellitus E11.9 Venous stasis dermatitis of right lower extremity (Inactive) I83.11 Allergies cocaine Allergy (Verified 09/11/18 13:52) Unknown atorvastatin calcium [From Lipitor] Adverse Reaction (Verified 09/11/18 13:52) Pain in joints haloperidol [From Haldol] Adverse Reaction (Verified 09/11/18 13:52) Other WENT CRAZY morphine Adverse Reaction (Verified 09/11/18 13:52) Other extremely aggitated oxycodone [From OxyIR] Adverse Reaction (Verified 09/11/18 13:52) Pain in joints extremely aggitated prednisone Adverse Reaction (Verified 09/11/18 13:52) ANXIOUS, INSOMNIA STERIODS Adverse Reaction (Uncoded 08/16/18 02:59) Other ANXIETY INSOMNIA Home Medications: Ambulatory Orders Medication Instructions Recorded Paroxetine HCl [Paxil] 40 mg PO DAILY 09/27/16 Potassium Chloride [K-Dur] 20 meq PO BID 09/27/16 Simvastatin [Zocor] 40 mg PO QHS 09/27/16 Sitagliptin Phosphate [Januvia] 100 mg PO DAILY 09/27/16 Torsemide [Demadex] 20 mg PO BID 09/27/16 traZODone [Desyrel] 50 mg PO QHS 09/27/16 Divalproex Sodium [Depakote] 500 mg PO BID 08/14/17 Allopurinol 100 mg PO DAILY 05/17/18 gabapentin 300 mg capsule 300 mg PO BID cap 07/17/18 levothyroxine 100 mcg capsule 112 mcg PO DAILY 07/17/18 Diclofenac Sodium 25 mg PO BID 08/16/18 Losartan Potassium 100 mg PO BID #60 tablet 09/09/18 Dulaglutide [Trulicity] 1.5 mg SQ QWEEK 01/26/19 Acetaminophen [Tylenol Tablet] 650 mg PO Q6H PRN PRN tablet 02/03/19 Aspirin 81 mg PO BID 02/03/19 Cholecalciferol (Vitamin D3) 2,000 unit PO DAILY 02/03/19 [Vitamin D3] Empagliflozin [Jardiance] 25 mg PO DAILY 02/03/19 Ergocalciferol (Vitamin D2) 50,000 unit PO QWEEK 02/03/19 [Vitamin D2] Glucerna Shake 120 ml PO TIDCM 02/03/19 HYDROmorphone tablet [Dilaudid] 2 mg PO Q6H PRN 3 Days #12 tab 02/03/19 Insulin Glargine [Lantus SoloStar 75 units SC QHS 02/03/19 Pen] Insulin Lispro [Humalog KwikPen] See Protocol SQ TIDAC 02/03/19 Metoprolol(XL)Succ [Toprol Xl 12.5 mg PO BID 02/03/19 (Beta Romel)] Surgical History: Surgical History (Last Reviewed 01/26/19 @ 17:02 by Bib Judge DO) Cochlear implant in place Z96.21 H/O shoulder surgery Z98.890 History of left heart catheterization Onset Date: 08/15/17 Z98.890 non obstructive coronary arteries History of right knee joint replacement Z96.651 Hx of cholecystectomy Z90.49 Previous back surgery Z98.890 Surgical History: cholecystectomy, total hip arthroplasty - Right, total knee arthroplasty - Right., - - Left shoulder surgery with rotator cuff repair; back surgery x 4; left cochlear implant. Psychiatric History: Depression Lives: Spouse/ Significant Other Smoking Status: Former smoker Tobacco Use: Non-smoker Alcohol: None Drugs: None - *Family History Maternal Family History: Family History (Last Reviewed 01/26/19 @ 17:02 by Bib Judge DO) Mother Hypertension Father Hypertension History Items: Dementia, Hypertension Paternal Family History: Family History (Last Reviewed 01/26/19 @ 17:02 by Bib Judge DO) Mother Hypertension Father Hypertension History Items: Heart Disease - decased age 73, Hypertension Review of Systems Constitutional: Denies: Chills, Fever, Weight Change HEENT: Denies: Head Aches, Sinus Congestion, Sinus Drainage Cardiovascular: Denies: Chest Pain, Palpitations Respiratory: Denies: Cough, Shortness of breath at rest, Sputum production Gastrointestinal: Denies: Abdominal Pain, Nausea, Vomiting Genitourinary: Denies: Dysuria Musculoskeletal: Denies: Joint Pain, Joint Tenderness Skin: Denies: Rash, Wounds Neurological: Denies: Numbness, Tingling, Focal weakness Psychiatric: Denies: Anxiety, Depression, Homicidal Ideations, Suicidal Ideations Hematologic/ Lymphatic: Denies: Easy Bruising, Easy Bleeding VTE Information - Inpt Only VTE Present on Admission: No VTE Mechan Device Prophylaxis: Knee High ESTRELLITA Hose VTE Pharm Prophylaxis ordered?: Yes Patient Problems: Active and Suspected Problems (Last Reviewed 01/26/19 @ 17:02 by Bib Judge DO) Fall (Acute) - Physical Exam General: Alert, Oriented x3, Cooperative HEENT: Atraumatic, PERRLA, EOMI, Normocephalic Neck: Supple, No JVD, Negative Carotid Bruits Lungs: Clear to auscultation, Normal air movement Cardiovascular: Regular rate, No murmurs Abdomen: Bowel Sounds Present, Soft, Non Tender Extremities: No edema, Capillary Refill Less than 3 Seconds, - - Right lower extremity immobilizer. Skin: No rashes, No breakdown Musculoskeletal: No Tenderness to Palpation of Joints or Extremities Neurological: Cranial nerves II-XII grossly intact Psych/Mental Status: Normal Affect, Appropriate Vital Signs Temp Pulse Resp BP Pulse Ox 97.2 F L 60 18 125/64 H 99 02/03/19 15:15 02/03/19 17:38 02/03/19 15:15 02/03/19 17:38 02/03/19 15:15 Oxygen Delivery Method Room Air Weight: 121.943 kg Body Mass Index (BMI) 40.7 Finger Stick Blood Glucose 129 Intake and Output for Last 24 Hours 02/01/19 02/02/19 02/03/19 23:59 23:59 23:59 Intake Total 360 / 360 Balance 360 / 360 POC Glucose 02/03/19 16:44 POC Glucose 174 H Assessment/Plan All Active Problems (Last Reviewed 01/26/19 @ 17:02 by Bib Judge DO) Fall (Acute) Fracture of right tibia and fibula (Acute) Knee pain, right (Acute) Preop cardiovascular exam (Acute) Skin tear of right lower leg without complication (Acute) Cellulitis (Resolved) Hypokalemia (Resolved) 73 year old male with below past medical history hospitalized for right tib/fib fracture, underwent ORIF 01/29/[address] Rutledge, admitted to TCU with debility, here for rehabilitation, strengthening, prior to discharge home with spouse. Debility - PT/OT. Pain - Tylenol 1000MG Q6H PRN mild pain, Diclofenac 50MG BID, Dilaudid 2MG Q6H PRN severe pain. Bowel - Miralax 17GM daily, Senna/colace 2 tablets BID, Dulcolax 10MG daily PRN. Pneumonia vaccination - Administer Prevnar 13 and/or Pneumovax 23 as necessary. DVT prophylaxis - Aspirin 81MG BID thru 03/17/2019. Gout - Allopurinol 100MG daily. Vitamin D deficiency - D3 1000IU daily. Neuropathic pain - Depakote 500MG BID, Gabapentin 300MG BID. Diabetes Mellitus II - Trulicity 1.5MG per week, Jardiance 25MG daily, Lantus 75 units QHS. Chronic diastolic congestive heart failure - Metoprolol succinate 12.5MG BID, Losartan 100MG BID, Lasix 40MG BID. Nutrition - Glucerna 120ML PO TID. Hypothyroidism - Levothyroxine 112MCG daily. Skin irritation - Calmoseptine topical TID. Depression - Paroxetine 40MG daily, resident doing well with chronic detention use, GDR clinically contraindicated. Hypokalemia - K-Dur 20MEQ BID. Hyperlipidemia - Simvastatin 40MG QHS. Insomnia - Trazodone 50MG QHS.
--- NOTE | 2019-02-03 20:26 | HP.PCM_ITS ---
Problem List (1) Fall Status: Acute (2) Fracture of right tibia and fibula Status: Acute (3) Chronic diastolic heart failure Status: Chronic (4) Lymphedema Status: Chronic (5) Diabetes mellitus Status: Chronic (6) GERD (gastroesophageal reflux disease) Status: Chronic (7) Hypothyroidism Status: Chronic (8) Depression Status: Chronic (9) EH (obstructive sleep apnea) Status: Chronic (10) Obesity, morbid, BMI 40.0-49.9 Status: Chronic (11) Hyperlipidemia Status: Chronic Qualifiers: (12) Hypertension Status: Chronic Qualifiers: History of Present Illness Date of Admission: 02/03/19 Chief Complaint: Here for rehabilitation, strengthening, prior to discharge home with spouse. The patient is a 73 year old Male with below past medical history presented to [facility] Emergency Department 01/26/2019 with fall, right knee pain. 01/26/2019 X-ray right tib/fib showed proximal tib/fib fracture, medial compartment hemiarthroplasty. 01/26/2019 EKG sinus bradycardia, left axis deviation, left ventricular hypertrophy, anterolateral infarct. Unable to bear weight, right tib/fib fracture, immobilizer applied. 01/26/2019 Admit to Hospital. Consult Orthopedics. Consult PT/OT. 01/26/2019 CT right knee showed comminuted fracture proximal tibial metaphysis, epiphysis, displaced fracture proximal fibula, hemarthrosis. 01/29/2019 Dr. Rutledge performed open reduction internal fixation right bicondylar tibial plateau fracture. 02/02/2019 Hydralazine as needed for elevated blood pressure. Vitamin D supplementation recommended to decrease risk of falls, improve debility. 02/03/2019 Admit to TCU with debility, here for rehabilitation, strengthening, prior to discharge home with spouse. Past Medical History Past Medical History (Chronic Problems): Chronic Problems (Last Reviewed 01/26/19 @ 17:02 by Bib Judge DO) Weakness (Chronic) Chronic diastolic heart failure (Chronic) Lymphedema (Chronic) Diabetes mellitus (Chronic) GERD (gastroesophageal reflux disease) (Chronic) Hypothyroidism (Chronic) Lumbar spinal stenosis (Chronic) Osteoarthritis of knees, bilateral (Chronic) Depression (Chronic) Gout (Chronic) Neuropathic pain (Chronic) Low back pain (Chronic) Chronic venous insufficiency (Chronic) Dependent edema (Chronic) Debility (Chronic) Leg swelling (Chronic) EH (obstructive sleep apnea) (Chronic) Tricuspid valve insufficiency (Chronic) Venous stasis ulcer (Chronic) Obesity, morbid, BMI 40.0-49.9 (Chronic) Abnormal electrocardiogram (Chronic) Non-rheumatic tricuspid valve insufficiency (Chronic) Chronic diastolic (congestive) heart failure (Chronic) Hyperlipidemia (Chronic) Hypertension (Chronic) Chronic acquired lymphedema (Chronic) Medical History: Medical History (Last Reviewed 01/26/19 @ 17:02 by Bib Judge DO) Non-rheumatic tricuspid valve insufficiency (Chronic) I36.1 Chronic diastolic (congestive) heart failure (Chronic) I50.32 Hyperlipidemia (Chronic) E78.5 Hypertension (Chronic) I10 Asbestos exposure Z77.090 GERD (gastroesophageal reflux disease) K21.9 Hypothyroidism E03.9 Obstructive sleep apnea G47.33 Type 2 diabetes mellitus E11.9 Venous stasis dermatitis of right lower extremity (Inactive) I83.11 Allergies cocaine Allergy (Verified 09/11/18 13:52) Unknown atorvastatin calcium [From Lipitor] Adverse Reaction (Verified 09/11/18 13:52) Pain in joints haloperidol [From Haldol] Adverse Reaction (Verified 09/11/18 13:52) Other WENT CRAZY morphine Adverse Reaction (Verified 09/11/18 13:52) Other extremely aggitated oxycodone [From OxyIR] Adverse Reaction (Verified 09/11/18 13:52) Pain in joints extremely aggitated prednisone Adverse Reaction (Verified 09/11/18 13:52) ANXIOUS, INSOMNIA STERIODS Adverse Reaction (Uncoded 08/16/18 02:59) Other ANXIETY INSOMNIA Home Medications: Ambulatory Orders Medication Instructions Recorded Paroxetine HCl [Paxil] 40 mg PO DAILY 09/27/16 Potassium Chloride [K-Dur] 20 meq PO BID 09/27/16 Simvastatin [Zocor] 40 mg PO QHS 09/27/16 Sitagliptin Phosphate [Januvia] 100 mg PO DAILY 09/27/16 Torsemide [Demadex] 20 mg PO BID 09/27/16 traZODone [Desyrel] 50 mg PO QHS 09/27/16 Divalproex Sodium [Depakote] 500 mg PO BID 08/14/17 Allopurinol 100 mg PO DAILY 05/17/18 gabapentin 300 mg capsule 300 mg PO BID cap 07/17/18 levothyroxine 100 mcg capsule 112 mcg PO DAILY 07/17/18 Diclofenac Sodium 25 mg PO BID 08/16/18 Losartan Potassium 100 mg PO BID #60 tablet 09/09/18 Dulaglutide [Trulicity] 1.5 mg SQ QWEEK 01/26/19 Acetaminophen [Tylenol Tablet] 650 mg PO Q6H PRN PRN tablet 02/03/19 Aspirin 81 mg PO BID 02/03/19 Cholecalciferol (Vitamin D3) 2,000 unit PO DAILY 02/03/19 [Vitamin D3] Empagliflozin [Jardiance] 25 mg PO DAILY 02/03/19 Ergocalciferol (Vitamin D2) 50,000 unit PO QWEEK 02/03/19 [Vitamin D2] Glucerna Shake 120 ml PO TIDCM 02/03/19 HYDROmorphone tablet [Dilaudid] 2 mg PO Q6H PRN 3 Days #12 tab 02/03/19 Insulin Glargine [Lantus SoloStar 75 units SC QHS 02/03/19 Pen] Insulin Lispro [Humalog KwikPen] See Protocol SQ TIDAC 02/03/19 Metoprolol(XL)Succ [Toprol Xl 12.5 mg PO BID 02/03/19 (Beta Romel)] Surgical History: Surgical History (Last Reviewed 01/26/19 @ 17:02 by Bib Judge DO) Cochlear implant in place Z96.21 H/O shoulder surgery Z98.890 History of left heart catheterization Onset Date: 08/15/17 Z98.890 non obstructive coronary arteries History of right knee joint replacement Z96.651 Hx of cholecystectomy Z90.49 Previous back surgery Z98.890 Surgical History: cholecystectomy, total hip arthroplasty - Right, total knee arthroplasty - Right., - - Left shoulder surgery with rotator cuff repair; back surgery x 4; left cochlear implant. Psychiatric History: Depression Lives: Spouse/ Significant Other Smoking Status: Former smoker Tobacco Use: Non-smoker Alcohol: None Drugs: None - *Family History Maternal Family History: Family History (Last Reviewed 01/26/19 @ 17:02 by Bib Judge DO) Mother Hypertension Father Hypertension History Items: Dementia, Hypertension Paternal Family History: Family History (Last Reviewed 01/26/19 @ 17:02 by Bib Judge DO) Mother Hypertension Father Hypertension History Items: Heart Disease - decased age 73, Hypertension Review of Systems Constitutional: Denies: Chills, Fever, Weight Change HEENT: Denies: Head Aches, Sinus Congestion, Sinus Drainage Cardiovascular: Denies: Chest Pain, Palpitations Respiratory: Denies: Cough, Shortness of breath at rest, Sputum production Gastrointestinal: Denies: Abdominal Pain, Nausea, Vomiting Genitourinary: Denies: Dysuria Musculoskeletal: Denies: Joint Pain, Joint Tenderness Skin: Denies: Rash, Wounds Neurological: Denies: Numbness, Tingling, Focal weakness Psychiatric: Denies: Anxiety, Depression, Homicidal Ideations, Suicidal Ideations Hematologic/ Lymphatic: Denies: Easy Bruising, Easy Bleeding VTE Information - Inpt Only VTE Present on Admission: No VTE Mechan Device Prophylaxis: Knee High ESTRELLITA Hose VTE Pharm Prophylaxis ordered?: Yes Patient Problems: Active and Suspected Problems (Last Reviewed 01/26/19 @ 17:02 by Bib Judge DO) Fall (Acute) - Physical Exam General: Alert, Oriented x3, Cooperative HEENT: Atraumatic, PERRLA, EOMI, Normocephalic Neck: Supple, No JVD, Negative Carotid Bruits Lungs: Clear to auscultation, Normal air movement Cardiovascular: Regular rate, No murmurs Abdomen: Bowel Sounds Present, Soft, Non Tender Extremities: No edema, Capillary Refill Less than 3 Seconds, - - Right lower extremity immobilizer. Skin: No rashes, No breakdown Musculoskeletal: No Tenderness to Palpation of Joints or Extremities Neurological: Cranial nerves II-XII grossly intact Psych/Mental Status: Normal Affect, Appropriate Vital Signs Temp Pulse Resp BP Pulse Ox 97.2 F L 60 18 125/64 H 99 02/03/19 15:15 02/03/19 17:38 02/03/19 15:15 02/03/19 17:38 02/03/19 15:15 Oxygen Delivery Method Room Air Weight: 121.943 kg Body Mass Index (BMI) 40.7 Finger Stick Blood Glucose 129 Intake and Output for Last 24 Hours 02/01/19 02/02/19 02/03/19 23:59 23:59 23:59 Intake Total 360 / 360 Balance 360 / 360 POC Glucose 02/03/19 16:44 POC Glucose 174 H Assessment/Plan All Active Problems (Last Reviewed 01/26/19 @ 17:02 by Bib Judge DO) Fall (Acute) Fracture of right tibia and fibula (Acute) Knee pain, right (Acute) Preop cardiovascular exam (Acute) Skin tear of right lower leg without complication (Acute) Cellulitis (Resolved) Hypokalemia (Resolved) 73 year old male with below past medical history hospitalized for right tib/fib fracture, underwent ORIF 01/29/[address] Rutledge, admitted to TCU with debility, here for rehabilitation, strengthening, prior to discharge home with spouse. * Debility - PT/OT. * Pain - Tylenol 1000MG Q6H PRN mild pain, Diclofenac 50MG BID, Dilaudid 2MG Q6H PRN severe pain. * Bowel - Miralax 17GM daily, Senna/colace 2 tablets BID, Dulcolax 10MG daily PRN. * Pneumonia vaccination - Administer Prevnar 13 and/or Pneumovax 23 as necessary. * DVT prophylaxis - Aspirin 81MG BID thru 03/17/2019. * Gout - Allopurinol 100MG daily. * Vitamin D deficiency - D3 1000IU daily. * Neuropathic pain - Depakote 500MG BID, Gabapentin 300MG BID. * Diabetes Mellitus II - Trulicity 1.5MG per week, Jardiance 25MG daily, Lantus 75 units QHS. * Chronic diastolic congestive heart failure - Metoprolol succinate 12.5MG BID, Losartan 100MG BID, Lasix 40MG BID. * Nutrition - Glucerna 120ML PO TID. * Hypothyroidism - Levothyroxine 112MCG daily. * Skin irritation - Calmoseptine topical TID. * Depression - Paroxetine 40MG daily, resident doing well with chronic retirement use, GDR clinically contraindicated. * Hypokalemia - K-Dur 20MEQ BID. * Hyperlipidemia - Simvastatin 40MG QHS. * Insomnia - Trazodone 50MG QHS.
[2019-02-03] MEDS: Menthol/Lanolin/Calamine/Znox 113 GM Tube 1 APPLIC TOPICAL (21:00)
[2019-02-03] MEDS: traZODone 50 MG Tablet PO (21:02)
[2019-02-03 21:21] LABS: Bedside Glucose 185 mg/dL (70-110)
[2019-02-04] MEDS: Polyethylene Glycol 3350 17 GM PACKET PO (04:42)
[2019-02-04] MEDS: Losartan Potassium 100 MG Tablet PO ×2 (04:51→17:04)
[2019-02-04] MEDS: Empagliflozin 25 MG Tablet PO (04:51)
[2019-02-04] MEDS: Menthol/Lanolin/Calamine/Znox 113 GM Tube 1 APPLIC TOPICAL ×3 (04:51→21:31)
[2019-02-04] MEDS: Allopurinol 100 MG Tablet PO (04:51)
[2019-02-04] MEDS: Aspirin 81 MG TAB.CHEW PO ×2 (04:51→17:04)
[2019-02-04 04:52] VITALS: BP 153/64; PULSE 61
[2019-02-04] MEDS: Furosemide 40 MG Tablet PO ×2 (04:52→17:04)
[2019-02-04] MEDS: LINAGLIPTIN 5 MG TABLET PO (04:52)
[2019-02-04] MEDS: Paroxetine 20 MG Tablet 40 MG PO (04:52)
[2019-02-04] MEDS: Divalproex (ER) 500 MG Tablet PO ×2 (04:52→17:04)
[2019-02-04] MEDS: Gabapentin 300 MG Capsule PO ×2 (04:52→17:04)
[2019-02-04] MEDS: Metoprolol(XL)Succ 25 MG Tablet 12.5 MG PO ×2 (04:52→17:04)
[2019-02-04] MEDS: Levothyroxine 112 MCG Tablet PO (04:53)
[2019-02-04] MEDS: Senna/Docusate Sodium 1 Tablet 2 TABLET PO ×2 (04:53→17:04)
[2019-02-04] MEDS: Acetaminophen 500 MG Tablet 1000 MG PO ×2 (04:53→13:27)
[2019-02-04] MEDS: Nystatin Powder 15gm Bottle 1 APPLIC TOPICAL ×2 (04:59→21:31)
[2019-02-04 06:10] LABS: Absolute Lymphocyte Count 2.69 X10^3/ul (0.83-4.51); Absolute Neutrophil Count 6.1 X10^3/uL (2.0-7.7); Basophil# 0.03 X10^3/uL; Basophil% 0.3 % (0-1); Eosinophil# 0.39 X10^3/uL; Eosinophils% 3.7 % (0-5); Hematocrit 31.9 % (40-54); Hemoglobin 9.7 g/dl (13.0-16.5); Lymphocyte # 2.69 X10^3/ul (4.0); Lymphocyte % 25.8 % (19-41); Mean Corp Hgb Conc 30.4 g/gl (32-36); Mean Corpuscular Volume 95.2 fL (80-94); Mean Platelet Vol. 8.7 fl (6.2-12.0); Monocyte# 1.18 X10^3/uL; Monocyte% 11.3 % (0-10); Neutrophil % 58.5 % (47-70); Platelet Count 622 K/mm3 (150-450); RBC Distribution Width CV 15.3 % (11.6-14.6); RBC Distribution Width SD 51.3 fl (35.1-43.9); Red Blood Count 3.35 M/mm3 (4.6-6.2); White Blood Count 10.4 K/mm3 (4.4-11.0)
[2019-02-04 06:15] LABS: POSITIVE COUNT NO; POSITIVE DIFFERENTIAL NO; POSITIVE MORPHOLOGY NO
[2019-02-04 06:41] LABS: Bedside Glucose 122 mg/dL (70-110)
[2019-02-04 06:49] LABS: Anion Gap 9 (5-15); BUN 19 mg/dL (7-18); BUN/Creat Ratio 23.2 RATIO (10-20); Calcium,Total 8.8 mg/dL (8.5-10.1); Chloride 106 mmol/L (98-107); Creatinine, Serum 0.82 mg/dL (0.70-1.30); EST Glomerular Filtration Rate 98 mL/min (>60); Est Glom Filt Rate - Afr Amer 119 mL/min (>60); Estimated Creatinine Clearance 77.62 ml/min; Glucose 125 mg/dL (74-106); Potassium 3.7 mmol/L (3.5-5.1); Sodium Level 144 mmol/L (136-145)
[2019-02-04] MEDS: Glucerna Shake 120 ML LIQUID PO ×2 (09:08→11:09)
[2019-02-04] MEDS: Tuberculin,Purif.prot.deriv. 50 TU/ML Vial 5 ML ID (10:27)
[2019-02-04 11:00] LABS: Bedside Glucose 143 mg/dL (70-110)
--- NOTE | 2019-02-04 13:04 | PCM.PN.RX ---
<JoselinNestor tavares D - Last Filed: 02/04/19 13:04> Progress Note - Pharmacy Subjective: TCU Admission Objective: Allergies cocaine Allergy (Verified 09/11/18 13:52) Unknown atorvastatin calcium [From Lipitor] Adverse Reaction (Verified 09/11/18 13:52) Pain in joints haloperidol [From Haldol] Adverse Reaction (Verified 09/11/18 13:52) Other WENT CRAZY morphine Adverse Reaction (Verified 09/11/18 13:52) Other extremely aggitated oxycodone [From OxyIR] Adverse Reaction (Verified 09/11/18 13:52) Pain in joints extremely aggitated prednisone Adverse Reaction (Verified 09/11/18 13:52) ANXIOUS, INSOMNIA STERIODS Adverse Reaction (Uncoded 08/16/18 02:59) Other ANXIETY INSOMNIA Current Medications Generic Name Dose Route Start Last Admin Trade Name Freq PRN Reason Stop Dose Admin Acetaminophen 1,000 mg 02/03/19 20:41 02/04/19 04:53 Tylenol PO 1,000 mg Q6H PRN PRN Administration MILD PAIN (1-3/10) Allopurinol 100 mg 02/04/19 06:00 02/04/19 04:51 Zyloprim PO 100 mg DAILY CHERYL Administration Aspirin 81 mg 02/03/19 18:00 02/04/19 04:51 Aspirin, Baby PO 03/17/19 06:01 81 mg BID CHERYL Administration Bisacodyl 10 mg 02/03/19 20:41 Dulcolax PO DAILY PRN Constipation Calamine/Phenol 1 applic 02/03/19 22:00 02/04/19 04:51 Calmoseptine Ointment TOPICAL 1 applicatio TID CHERYL Administration Protocol Cholecalciferol 1,000 unit 02/04/19 06:00 02/04/19 04:52 Vitamin D PO 1,000 unit DAILY CHERYL Administration Diclofenac Sodium 50 mg 02/04/19 08:00 02/04/19 09:09 Voltaren PO 50 mg BIDCM CHERYL Administration Divalproex Sodium 500 mg 02/03/19 18:00 02/04/19 04:52 Depakote Er PO 500 mg BID CHERYL Administration Furosemide 40 mg 02/03/19 18:00 02/04/19 04:52 Lasix PO 40 mg BID CHERYL Administration Gabapentin 300 mg 02/03/19 18:00 02/04/19 04:52 Neurontin PO 300 mg BID CHERYL Administration Hydromorphone HCl 2 mg 02/03/19 16:12 Dilaudid Tablet PO Q6H PRN SEVERE PAIN (6-08/28) Insulin Glargine 75 units 02/03/19 22:00 02/03/19 21:13 Lantus (Bkc) SC 75 u QHS CHERYL Administration Levothyroxine Sodium 112 mcg 02/04/19 06:00 02/04/19 04:53 Synthroid PO 112 mcg DAILY@0600 CHERYL Administration Linagliptin 5 mg 02/04/19 06:00 02/04/19 04:52 Tradjenta PO 5 mg DAILY CHERYL Administration Losartan Potassium 100 mg 02/03/19 18:00 02/04/19 04:51 Cozaar PO 100 mg BID CHERYL Administration Metoprolol Succinate 12.5 mg 02/03/19 18:00 02/04/19 04:52 Toprol Xl (Beta Romel) PO 12.5 mg BID CHERYL Administration Nutritional Formula (Lactose Free) 120 ml 02/03/19 17:45 02/04/19 11:09 Glucerna Shake PO 120 ml TIDCM CHERYL Administration Nystatin 1 applic 02/04/19 06:00 02/04/19 04:59 Mycostatin Powder TOPICAL 1 applicatio 0600,2200 CHERYL Administration Protocol Paroxetine HCl 40 mg 02/04/19 06:00 02/04/19 04:52 Paxil PO 40 mg DAILY CHERYL Administration Polyethylene Glycol 17 gm 02/04/19 06:00 02/04/19 04:42 Miralax PO 17 gm DAILY CHERYL Administration Potassium Chloride 20 meq 02/03/19 17:00 02/04/19 09:09 K-Dur PO 20 meq BIDCM CHERYL Administration Senna/Docusate Sodium 2 tablet 02/04/19 06:00 02/04/19 04:53 Senokot-S, Bria-Colace PO 2 tablet BID CHERYL Administration Simvastatin 40 mg 02/03/19 22:00 02/03/19 21:09 Zocor PO 40 mg QHS CHERYL Administration Trazodone HCl 50 mg 02/03/19 22:00 02/03/19 21:02 Desyrel PO 50 mg QHS CHERYL Administration Tuberculin PPD 5 tu 02/11/19 10:00 Tubersol, Aplisol, Ppd ID 02/11/19 10:01 X1 ONE Problem List (Last Reviewed 01/26/19 @ 17:02 by Bib Judge DO) Fall (Acute) Vital Signs Temp Pulse Resp BP Pulse Ox 97.2 F L 61 18 153/64 H 99 02/03/19 15:15 02/04/19 04:52 02/03/19 15:15 02/04/19 04:52 02/03/19 15:15 Oxygen Delivery Method Room Air Weight: 121.943 kg Body Mass Index (BMI) 40.7 Finger Stick Blood Glucose 129 Sodium 144 mmol/L (136-145) 02/04/19 05:05 Potassium 3.7 mmol/L (3.5-5.1) 02/04/19 05:05 Chloride 106 mmol/L (98-107) 02/04/19 05:05 Carbon Dioxide 29.0 mmol/L (21.0-32.0) 02/04/19 05:05 Anion Gap 9 (5-15) 02/04/19 05:05 BUN 19 mg/dL (7-18) H 02/04/19 05:05 Creatinine 0.82 mg/dL (0.70-1.30) 02/04/19 05:05 Est GFR (MDRD) Af Amer 119 mL/min (>60) 02/04/19 05:05 Est GFR (MDRD) Non-Af 98 mL/min (>60) 02/04/19 05:05 BUN/Creatinine Ratio 23.2 RATIO (10-20) H 02/04/19 05:05 Glucose 125 mg/dL (74-106) H 02/04/19 05:05 Assessment/Plan: 1) Pain APAP for mild pain, diclofenac, gabapentin, hydromorphone for severe pain, valproic acid. Continue to monitor prn medication use, daily pain scores. 2) Heart Failure ASA, furosemide/KCL, losartan, metoprolol. Continue to monitor BP/HR, renal function, electrolytes, BP/HR 3) HLD Simvastatin. Continue to monitor lipids. 4) DM2 Dulaglutide, empagliflozin, linagliptin, insulin glargine at HS. Continue to monitor renal function, BGT, s/s hyper/hypoglycemia. 5) Hypothyroidism Levothyroxine. Continue to monitor s/s hyper/hypothyroidism. 6) Gout Allopurinol. Continue to monitor s/s gout. Psychotropic Medications: 7) Depression/Insomnia Paroxetine daily, trazodone at HS. Continue to monitor s/s depression, s/s serotonin syndrome with dual serotonergic agents. Unnecessary Medications: None Bowel Regimen: 8) Senna/s, PEG, prn bisacodyl. Continue to monitor prn medication use, for constipation/diarrhea. Date of Note:: 02/04/19 - Provider Comments Provider responsibility: Provider responsible to enter orders to implement recommendations <Gil Wheeler Chi - Last Filed: 02/04/19 17:51> Progress Note - Pharmacy Subjective: [] Objective: Allergies cocaine Allergy (Verified 09/11/18 13:52) Unknown atorvastatin calcium [From Lipitor] Adverse Reaction (Verified 09/11/18 13:52) Pain in joints haloperidol [From Haldol] Adverse Reaction (Verified 09/11/18 13:52) Other WENT CRAZY morphine Adverse Reaction (Verified 09/11/18 13:52) Other extremely aggitated oxycodone [From OxyIR] Adverse Reaction (Verified 09/11/18 13:52) Pain in joints extremely aggitated prednisone Adverse Reaction (Verified 09/11/18 13:52) ANXIOUS, INSOMNIA STERIODS Adverse Reaction (Uncoded 08/16/18 02:59) Other ANXIETY INSOMNIA Current Medications Generic Name Dose Route Start Last Admin Trade Name Freq PRN Reason Stop Dose Admin Acetaminophen 1,000 mg 02/03/19 20:41 02/04/19 13:27 Tylenol PO 1,000 mg Q6H PRN PRN Administration MILD PAIN (1-3/10) Allopurinol 100 mg 02/04/19 06:00 02/04/19 04:51 Zyloprim PO 100 mg DAILY CHERYL Administration Aspirin 81 mg 02/03/19 18:00 02/04/19 17:04 Aspirin, Baby PO 03/17/19 06:01 81 mg BID CHERYL Administration Bisacodyl 10 mg 02/03/19 20:41 Dulcolax PO DAILY PRN Constipation Calamine/Phenol 1 applic 02/03/19 22:00 02/04/19 13:30 Calmoseptine Ointment TOPICAL 1 applicatio TID CHERYL Administration Protocol Cholecalciferol 1,000 unit 02/04/19 06:00 02/04/19 04:52 Vitamin D PO 1,000 unit DAILY CHERYL Administration Diclofenac Sodium 50 mg 02/04/19 08:00 02/04/19 17:04 Voltaren PO 50 mg BIDCM CHERYL Administration Divalproex Sodium 500 mg 02/03/19 18:00 02/04/19 17:04 Depakote Er PO 500 mg BID CHERYL Administration Furosemide 40 mg 02/03/19 18:00 02/04/19 17:04 Lasix PO 40 mg BID CHERYL Administration Gabapentin 300 mg 02/03/19 18:00 02/04/19 17:04 Neurontin PO 300 mg BID CHERYL Administration Hydromorphone HCl 2 mg 02/03/19 16:12 Dilaudid Tablet PO Q6H PRN SEVERE PAIN () Insulin Glargine 75 units 02/03/19 22:00 02/03/19 21:13 Lantus (Bkc) SC 75 u QHS CHERYL Administration Levothyroxine Sodium 112 mcg 02/04/19 06:00 02/04/19 04:53 Synthroid PO 112 mcg DAILY@0600 CHERYL Administration Linagliptin 5 mg 02/04/19 06:00 02/04/19 04:52 Tradjenta PO 5 mg DAILY CHERYL Administration Losartan Potassium 100 mg 02/03/19 18:00 02/04/19 17:04 Cozaar PO 100 mg BID CHERYL Administration Metoprolol Succinate 12.5 mg 02/03/19 18:00 02/04/19 17:04 Toprol Xl (Beta Romel) PO 12.5 mg BID CHERYL Administration Nutritional Formula (Lactose Free) 120 ml 02/03/19 17:45 02/04/19 17:01 Glucerna Shake PO Not Given TIDCM [facility] Nystatin 1 applic 02/04/19 06:00 02/04/19 04:59 Mycostatin Powder TOPICAL 1 applicatio 0600,2200 [facility] Administration Protocol Paroxetine HCl 40 mg 02/04/19 06:00 02/04/19 04:52 Paxil PO 40 mg DAILY CHERYL Administration Polyethylene Glycol 17 gm 02/04/19 06:00 02/04/19 04:42 Miralax PO 17 gm DAILY CHERYL Administration Potassium Chloride 20 meq 02/03/19 17:00 02/04/19 17:04 K-Dur PO 20 meq BIDCM CHERYL Administration Senna/Docusate Sodium 2 tablet 02/04/19 06:00 02/04/19 17:04 Senokot-S, Bria-Colace PO 2 tablet BID CHERYL Administration Simvastatin 40 mg 02/03/19 22:00 02/03/19 21:09 Zocor PO 40 mg QHS CHERYL Administration Trazodone HCl 50 mg 02/03/19 22:00 02/03/19 21:02 Desyrel PO 50 mg QHS CHERYL Administration Tuberculin PPD 5 tu 02/11/19 10:00 Tubersol, Aplisol, Ppd ID 02/11/19 10:01 X1 ONE Problem List (Last Reviewed 01/26/19 @ 17:02 by Bib Judge DO) Fall (Acute) Vital Signs Temp Pulse Resp BP Pulse Ox 98.0 F 68 20 H 147/77 H 95 02/04/19 16:00 02/04/19 17:04 02/04/19 16:00 02/04/19 17:04 02/04/19 16:00 Oxygen Delivery Method Room Air Weight: 121.943 kg Body Mass Index (BMI) 40.7 Finger Stick Blood Glucose 129 Sodium 144 mmol/L (136-145) 02/04/19 05:05 Potassium 3.7 mmol/L (3.5-5.1) 02/04/19 05:05 Chloride 106 mmol/L (98-107) 02/04/19 05:05 Carbon Dioxide 29.0 mmol/L (21.0-32.0) 02/04/19 05:05 Anion Gap 9 (5-15) 02/04/19 05:05 BUN 19 mg/dL (7-18) H 02/04/19 05:05 Creatinine 0.82 mg/dL (0.70-1.30) 02/04/19 05:05 Est GFR (MDRD) Af Amer 119 mL/min (>60) 02/04/19 05:05 Est GFR (MDRD) Non-Af 98 mL/min (>60) 02/04/19 05:05 BUN/Creatinine Ratio 23.2 RATIO (10-20) H 02/04/19 05:05 Glucose 125 mg/dL (74-106) H 02/04/19 05:05 Assessment/Plan: Psychotropic Medications: Unnecessary Medications: Bowel Regimen: - Provider Comments Provider responsibility: Provider responsible to enter orders to implement recommendations Provider Comments to Recommendations by Pharmacy: Agree
--- NOTE | 2019-02-04 15:36 | CASEMGMT ---
Addendum entered and electronically signed by Denisse Mariscal 02/07/19 09:02: In supervision with [employer]LL[employer] TECHNICIAN student, consulted regarding documentation of admission assessment completed on 02.04.2019. Student addressed addition of catholic, mental health issues, and advanced care planning to the original assessment and recorded/edited information in the original assessment. This insurance underwriter reviewed and approved edits made by WELLFIELD TECHNICIAN student on 02.06.2019 at 1525. See attached link, or via the patient care tab for details of admission assessment. -BERLIN Mandujano, EDGAR Original Note: Reviewed and approved social work student attached documentation. Serina HERNÁNDEZ, GREGOR
[2019-02-04 16:00] VITALS: BP 147/77; PULSE 68; RESP 20; TEMP 36.7; O2SAT 95
[2019-02-04 17:04] VITALS: BP 147/77; PULSE 68
[2019-02-04 17:16] LABS: Bedside Glucose 114 mg/dL (70-110)
[2019-02-04 21:30] VITALS: PULSE 60; RESP 18; O2SAT 98
--- NOTE | 2019-02-04 21:30 | NURSING ---
During assessment it was noted that patient has 1 cm open area on lower left anterior leg dried blood noted on tissue at site. Area cleansed with normal saline and 2 x 2 applied to pad and protect. Patient denies any discomfort at site and can not remember any injury to area. Will continue to monitor. Same reported to Kath RN and JOSELITO Tavarez.
[2019-02-04 21:31] LABS: Bedside Glucose 144 mg/dL (70-110)
[2019-02-04] MEDS: traZODone 50 MG Tablet PO (21:32)
[2019-02-05 05:11] VITALS: BP 178/77; PULSE 64
[2019-02-05] MEDS: Polyethylene Glycol 3350 17 GM PACKET PO (05:11)
[2019-02-05] MEDS: Metoprolol(XL)Succ 25 MG Tablet 12.5 MG PO ×2 (05:11→17:11)
[2019-02-05] MEDS: LINAGLIPTIN 5 MG TABLET PO (05:11)
[2019-02-05] MEDS: Senna/Docusate Sodium 1 Tablet 2 TABLET PO ×2 (05:15→17:11)
[2019-02-05] MEDS: Levothyroxine 112 MCG Tablet PO (05:15)
[2019-02-05] MEDS: Paroxetine 20 MG Tablet 40 MG PO (05:15)
[2019-02-05] MEDS: Allopurinol 100 MG Tablet PO (05:15)
[2019-02-05] MEDS: Aspirin 81 MG TAB.CHEW PO ×2 (05:16→17:10)
[2019-02-05] MEDS: Losartan Potassium 100 MG Tablet PO ×2 (05:16→17:11)
[2019-02-05] MEDS: Divalproex (ER) 500 MG Tablet PO ×2 (05:16→17:10)
[2019-02-05] MEDS: Gabapentin 300 MG Capsule PO ×2 (05:16→17:11)
[2019-02-05] MEDS: Furosemide 40 MG Tablet PO ×2 (05:16→17:11)
[2019-02-05] MEDS: Nystatin Powder 15gm Bottle 1 APPLIC TOPICAL ×2 (05:16→21:06)
[2019-02-05] MEDS: Menthol/Lanolin/Calamine/Znox 113 GM Tube 1 APPLIC TOPICAL ×3 (05:17→21:06)
[2019-02-05] MEDS: Empagliflozin 25 MG Tablet PO (05:19)
[2019-02-05 06:26] LABS: Bedside Glucose 105 mg/dL (70-110)
[2019-02-05 06:56] VITALS: PULSE 64; RESP 17; O2SAT 97
[2019-02-05 11:36] LABS: Bedside Glucose 143 mg/dL (70-110)
[2019-02-05] MEDS: Glucerna Shake 120 ML LIQUID PO ×2 (12:48→17:06)
[2019-02-05 16:00] VITALS: BP 142/68; PULSE 64; RESP 18; TEMP 36; O2SAT 96
--- NOTE | 2019-02-05 16:48 | CHAPLAIN ---
Type of Pastoral Visit _x__ Initial Visit ___ Follow-up Visit ___ On-call Visit ___ General Patient Visit ___ Spiritual Assessment ___ Family Conference ___ Bereavement ___ Rapid Response ___ Code Blue ___ Other (describe below) Pastoral Care Referral From _x__ Patient ___ Family ___ Nurse ___ Physician ___ Electronic Warfare Linguist ___ Registered Radiation Therapist ___ Other (describe below) Sacrament/Intervention _x__ Active listening ___ Anointing ___ Pentecostalism ___ Bereavement ___ Communion ___ Scarlett exploration ___ _x__ Life review _x__ Prayer ___ Reconciliation ___ Sacrament of Sick _x__ Supportive presence ___ Wedding ___ Other (describe below) Pastoral Comments patient has been seen before in previous admissions; pt said he was looking for surface to air weapons officer visit and began long story of life review and family problems; pt welcomed presence and prayer; pt would seek further visits as possible
[2019-02-05 17:01] LABS: Bedside Glucose 130 mg/dL (70-110)
[2019-02-05 17:11] VITALS: BP 142/68; PULSE 64
--- NOTE | 2019-02-05 17:30 | PCM.CONS.GEN ---
Reason for Consult Date of Consultation: 02/05/19 Reason for Consultation: Toenails History of Present Illness: The patient is a 73 year old gentleman with right proximal tibial fracture, now in TCU. He has long thickened, painful toenails 1-5 ginger which need reduced. He has no other pedal complaints. Past Medical History Past Medical History (Chronic Problems): Chronic Problems (Last Reviewed 01/26/19 @ 17:02 by Bib Judge DO) Weakness (Chronic) Chronic diastolic heart failure (Chronic) Lymphedema (Chronic) Diabetes mellitus (Chronic) GERD (gastroesophageal reflux disease) (Chronic) Hypothyroidism (Chronic) Lumbar spinal stenosis (Chronic) Osteoarthritis of knees, bilateral (Chronic) Depression (Chronic) Gout (Chronic) Neuropathic pain (Chronic) Low back pain (Chronic) Chronic venous insufficiency (Chronic) Dependent edema (Chronic) Debility (Chronic) Leg swelling (Chronic) EH (obstructive sleep apnea) (Chronic) Tricuspid valve insufficiency (Chronic) Venous stasis ulcer (Chronic) Obesity, morbid, BMI 40.0-49.9 (Chronic) Abnormal electrocardiogram (Chronic) Non-rheumatic tricuspid valve insufficiency (Chronic) Chronic diastolic (congestive) heart failure (Chronic) Hyperlipidemia (Chronic) Hypertension (Chronic) Chronic acquired lymphedema (Chronic) Medical History: Medical History (Last Reviewed 01/26/19 @ 17:02 by Bib Judge DO) Non-rheumatic tricuspid valve insufficiency (Chronic) I36.1 Chronic diastolic (congestive) heart failure (Chronic) I50.32 Hyperlipidemia (Chronic) E78.5 Hypertension (Chronic) I10 Asbestos exposure Z77.090 GERD (gastroesophageal reflux disease) K21.9 Hypothyroidism E03.9 Obstructive sleep apnea G47.33 Type 2 diabetes mellitus E11.9 Venous stasis dermatitis of right lower extremity (Inactive) I83.11 Allergies cocaine Allergy (Verified 09/11/18 13:52) Unknown atorvastatin calcium [From Lipitor] Adverse Reaction (Verified 09/11/18 13:52) Pain in joints haloperidol [From Haldol] Adverse Reaction (Verified 09/11/18 13:52) Other WENT CRAZY morphine Adverse Reaction (Verified 09/11/18 13:52) Other extremely aggitated oxycodone [From OxyIR] Adverse Reaction (Verified 09/11/18 13:52) Pain in joints extremely aggitated prednisone Adverse Reaction (Verified 09/11/18 13:52) ANXIOUS, INSOMNIA STERIODS Adverse Reaction (Uncoded 08/16/18 02:59) Other ANXIETY INSOMNIA Home Medications: Ambulatory Orders Medication Instructions Recorded Paroxetine HCl [Paxil] 40 mg PO DAILY 09/27/16 Potassium Chloride [K-Dur] 20 meq PO BID 09/27/16 Simvastatin [Zocor] 40 mg PO QHS 09/27/16 Sitagliptin Phosphate [Januvia] 100 mg PO DAILY 09/27/16 Torsemide [Demadex] 20 mg PO BID 09/27/16 traZODone [Desyrel] 50 mg PO QHS 09/27/16 Divalproex Sodium [Depakote] 500 mg PO BID 08/14/17 Allopurinol 100 mg PO DAILY 05/17/18 gabapentin 300 mg capsule 300 mg PO BID cap 07/17/18 levothyroxine 100 mcg capsule 112 mcg PO DAILY 07/17/18 Diclofenac Sodium 25 mg PO BID 08/16/18 Losartan Potassium 100 mg PO BID #60 tablet 09/09/18 Dulaglutide [Trulicity] 1.5 mg SQ QWEEK 01/26/19 Acetaminophen [Tylenol Tablet] 650 mg PO Q6H PRN PRN tablet 02/03/19 Aspirin 81 mg PO BID 02/03/19 Cholecalciferol (Vitamin D3) 2,000 unit PO DAILY 02/03/19 [Vitamin D3] Empagliflozin [Jardiance] 25 mg PO DAILY 02/03/19 Ergocalciferol (Vitamin D2) 50,000 unit PO QWEEK 02/03/19 [Vitamin D2] Glucerna Shake 120 ml PO TIDCM 02/03/19 HYDROmorphone tablet [Dilaudid] 2 mg PO Q6H PRN 3 Days #12 tab 02/03/19 Insulin Glargine [Lantus SoloStar 75 units SC QHS 02/03/19 Pen] Insulin Lispro [Humalog KwikPen] See Protocol SQ TIDAC 02/03/19 Metoprolol(XL)Succ [Toprol Xl 12.5 mg PO BID 02/03/19 (Beta Romel)] Surgical History: Surgical History (Last Reviewed 01/26/19 @ 17:02 by Bib Judge DO) Cochlear implant in place Z96.21 H/O shoulder surgery Z98.890 History of left heart catheterization Onset Date: 08/15/17 Z98.890 non obstructive coronary arteries History of right knee joint replacement Z96.651 Hx of cholecystectomy Z90.49 Previous back surgery Z98.890 Surgical History: cholecystectomy, total hip arthroplasty - Right, total knee arthroplasty - Right., - - Left shoulder surgery with rotator cuff repair; back surgery x 4; left cochlear implant. Psychiatric History: Depression Lives: Spouse/ Significant Other Smoking Status: Former smoker Tobacco Use: Non-smoker Alcohol: None Drugs: None - *Family History Maternal Family History: Family History (Last Reviewed 01/26/19 @ 17:02 by Bib Judge DO) Mother Hypertension Father Hypertension History Items: Dementia, Hypertension Paternal Family History: Family History (Last Reviewed 01/26/19 @ 17:02 by Bib Judge DO) Mother Hypertension Father Hypertension History Items: Heart Disease - decased age 73, Hypertension Review of Systems Constitutional: Denies: Chills, Fever Gastrointestinal: Denies: Nausea, Vomiting Patient Problems: Active and Suspected Problems (Last Reviewed 01/26/19 @ 17:02 by Bib Judge DO) Fall (Acute) - Physical Exam General: Alert, Oriented x3, Cooperative, No apparent distress Extremities: Capillary Refill Less than 3 Seconds, - - Toenails 1-5 bilateral are elongated, thickened, dystrophic, yellow, crumbly, painful w/ subungual debris. No open lesions, no drainage, no erythema, no fluctuance, no blisters bilateral foot/ankle, no evidence of acute ischemia, pedal pulses intact bilateral. No other pain to the foot/ankle bilateral. Vital Signs Temp Pulse Resp BP Pulse Ox 96.8 F L 64 18 142/68 H 96 02/05/19 16:00 02/05/19 17:11 02/05/19 16:00 02/05/19 17:11 02/05/19 16:00 Oxygen Delivery Method Room Air Weight: 121.943 kg Body Mass Index (BMI) 40.7 Finger Stick Blood Glucose 129 Intake and Output for Last 24 Hours 02/03/19 02/04/19 02/05/19 23:59 23:59 23:59 Intake Total 360 / 360 840 / 840 1080 / 1080 Balance 360 / 360 840 / 840 1080 / 1080 POC Glucose 02/05/19 02/05/19 02/05/19 16:53 11:32 06:17 POC Glucose 130 H 143 H 105 02/04/19 21:16 POC Glucose 144 H Assessment/Plan All Active Problems (Last Reviewed 01/26/19 @ 17:02 by Bib Judge DO) Fall (Acute) Fracture of right tibia and fibula (Acute) Knee pain, right (Acute) Preop cardiovascular exam (Acute) Skin tear of right lower leg without complication (Acute) Cellulitis (Resolved) Hypokalemia (Resolved) Onychomycosis Dystrophic nail Pain toe right and left Diabetes Reviewed condition and treatment options. Debrided toenails 1-5 bilateral, this was done with a nail nipper without incident. Reviewed proper foot care with patient. He is to follow up as outpatient for foot care needs.
--- NOTE | 2019-02-05 21:00 | NURSING ---
During HS med pass this nurse told patient that she would be back later to do dressing change. Patient then told this nurse that's good then you can give me my good night kiss! This nurse told patient it was inappropriate and left the room. Same reported to JOSELITO Tavarez.
[2019-02-05 21:01] LABS: Bedside Glucose 224 mg/dL (70-110)
[2019-02-05] MEDS: traZODone 50 MG Tablet PO (21:08)
--- NOTE | 2019-02-05 21:30 | NURSING ---
During dressing change tonight it was noted that patient has increased edema to right lower leg. Suture line appears to be stretched. More drainage noted also. Patient was refusing polar care but with staff enc agreed to wear for night. Staff also reminded patient to only pwb with transfers. Will cont to monitor. Same reported to Corby RN. and JOSELITO Stockton.
[2019-02-06] MEDS: HYDROmorphone 2 MG TABLET PO (01:23)
[2019-02-06] MEDS: Acetaminophen 500 MG Tablet 1000 MG PO (04:10)
[2019-02-06 04:53] VITALS: BP 133/74; PULSE 61
[2019-02-06] MEDS: Metoprolol(XL)Succ 25 MG Tablet 12.5 MG PO ×2 (04:53→17:58)
[2019-02-06] MEDS: Aspirin 81 MG TAB.CHEW PO ×2 (04:53→17:28)
[2019-02-06] MEDS: Polyethylene Glycol 3350 17 GM PACKET PO (04:53)
[2019-02-06] MEDS: LINAGLIPTIN 5 MG TABLET PO (04:54)
[2019-02-06] MEDS: Allopurinol 100 MG Tablet PO (04:55)
[2019-02-06] MEDS: Losartan Potassium 100 MG Tablet PO ×2 (04:55→17:28)
[2019-02-06] MEDS: Paroxetine 20 MG Tablet 40 MG PO (04:55)
[2019-02-06] MEDS: Levothyroxine 112 MCG Tablet PO (04:55)
[2019-02-06] MEDS: Furosemide 40 MG Tablet PO ×2 (04:55→17:27)
[2019-02-06] MEDS: Gabapentin 300 MG Capsule PO ×2 (04:55→17:27)
[2019-02-06] MEDS: Senna/Docusate Sodium 1 Tablet 2 TABLET PO ×2 (04:55→17:58)
[2019-02-06] MEDS: Divalproex (ER) 500 MG Tablet PO ×2 (04:55→17:27)
[2019-02-06] MEDS: Empagliflozin 25 MG Tablet PO (04:56)
[2019-02-06] MEDS: Menthol/Lanolin/Calamine/Znox 113 GM Tube 1 APPLIC TOPICAL ×3 (04:56→22:01)
[2019-02-06] MEDS: Nystatin Powder 15gm Bottle 1 APPLIC TOPICAL ×2 (04:56→22:01)
[2019-02-06 06:46] LABS: Bedside Glucose 135 mg/dL (70-110)
--- NOTE | 2019-02-06 08:26 | NURSING ---
Patient has c/o not sleeping well at HS. Dr. Wheeler notified, NO for Melatonin 10mg PO qHS.
[2019-02-06] MEDS: Glucerna Shake 120 ML LIQUID PO ×3 (09:49→17:28)
[2019-02-06 11:31] LABS: Bedside Glucose 174 mg/dL (70-110)
[2019-02-06 15:14] VITALS: BP 130/55; PULSE 60; RESP 18; TEMP 36.4; O2SAT 96
--- NOTE | 2019-02-06 15:34 | CASEMGMT ---
Addendum entered and electronically signed by Denisse Mariscal 02/07/19 09:09: Reviewed and approve MAP MAKER student documentation below. -GREGOR Mandujano-Pili, MIXER AND BLENDER Original Note: Social Work Transitional Care Unit Transportation information and resources provided to patient and per 's request. -Karmen Le, MAP MAKER Student Conveyor Line Battery Charger.
[2019-02-06 16:50] LABS: Bedside Glucose 178 mg/dL (70-110)
[2019-02-06 17:58] VITALS: BP 130/55; PULSE 60
[2019-02-06 21:46] LABS: Bedside Glucose 213 mg/dL (70-110)
[2019-02-06 22:00] VITALS: PULSE 80; RESP 18; O2SAT 95
[2019-02-06] MEDS: MELATONIN 10 MG TABLET PO (22:02)
[2019-02-06] MEDS: traZODone 50 MG Tablet PO (22:03)
[2019-02-07] MEDS: HYDROmorphone 2 MG TABLET PO ×2 (03:21→18:32)
[2019-02-07] MEDS: Levothyroxine 112 MCG Tablet PO (05:15)
[2019-02-07] MEDS: Gabapentin 300 MG Capsule PO ×2 (05:15→17:46)
[2019-02-07] MEDS: Paroxetine 20 MG Tablet 40 MG PO (05:15)
[2019-02-07] MEDS: Furosemide 40 MG Tablet PO ×2 (05:15→17:46)
[2019-02-07] MEDS: Divalproex (ER) 500 MG Tablet PO ×2 (05:15→17:46)
[2019-02-07] MEDS: Aspirin 81 MG TAB.CHEW PO ×2 (05:15→17:45)
[2019-02-07] MEDS: Senna/Docusate Sodium 1 Tablet 2 TABLET PO ×2 (05:15→17:45)
[2019-02-07] MEDS: Polyethylene Glycol 3350 17 GM PACKET PO (05:15)
[2019-02-07] MEDS: Losartan Potassium 100 MG Tablet PO ×2 (05:15→17:46)
[2019-02-07] MEDS: Allopurinol 100 MG Tablet PO (05:16)
[2019-02-07] MEDS: Empagliflozin 25 MG Tablet PO (05:16)
[2019-02-07] MEDS: LINAGLIPTIN 5 MG TABLET PO (05:16)
[2019-02-07 05:18] VITALS: BP 142/72; PULSE 62
[2019-02-07] MEDS: Metoprolol(XL)Succ 25 MG Tablet 12.5 MG PO ×2 (05:18→17:45)
[2019-02-07] MEDS: Menthol/Lanolin/Calamine/Znox 113 GM Tube 1 APPLIC TOPICAL ×3 (05:23→21:22)
[2019-02-07] MEDS: Nystatin Powder 15gm Bottle 1 APPLIC TOPICAL ×2 (05:23→21:23)
[2019-02-07 06:51] LABS: Bedside Glucose 140 mg/dL (70-110)
[2019-02-07] MEDS: Glucerna Shake 120 ML LIQUID PO ×3 (08:20→17:45)
[2019-02-07] MEDS: DULAGLUTIDE 1.5 MG/0.5 ML PEN.INJCTR SQ (09:20)
[2019-02-07 11:26] LABS: Bedside Glucose 184 mg/dL (70-110)
--- NOTE | 2019-02-07 11:47 | NURSING ---
PER THERAPY TO TRANSFER PT. SLIDE BOARD X2 WHEEL CHAIR TO BED. RONIT FROM BED TO RECLINER. JOSELITO SPRING AWARE.
--- NOTE | 2019-02-07 13:09 | CASEMGMT ---
Addendum entered by Joelle Wright 02/07/19 15:56: Reviewed and agree with SW student documentation. BERLIN Mullen Original Note: Brief interview for mental status (BIMS) and mood (PHQ-9) completed on this day. BIMS score 14/15. PHQ-9 score 03/15. Dax Borrero social work student
[2019-02-07 16:00] VITALS: BP 128/55; PULSE 60; RESP 20; TEMP 36.6; O2SAT 96
[2019-02-07 16:56] LABS: Bedside Glucose 159 mg/dL (70-110)
[2019-02-07 17:45] VITALS: BP 128/55; PULSE 60
[2019-02-07 20:56] LABS: Bedside Glucose 176 mg/dL (70-110)
[2019-02-07] MEDS: traZODone 50 MG Tablet PO (21:19)
[2019-02-07] MEDS: MELATONIN 10 MG TABLET PO (21:21)
[2019-02-07 21:25] VITALS: PULSE 82; RESP 18; O2SAT 96
[2019-02-08] MEDS: HYDROmorphone 2 MG TABLET PO ×2 (00:33→13:47)
[2019-02-08] MEDS: LINAGLIPTIN 5 MG TABLET PO (04:55)
[2019-02-08] MEDS: Paroxetine 20 MG Tablet 40 MG PO (04:55)
[2019-02-08] MEDS: Divalproex (ER) 500 MG Tablet PO ×2 (04:55→17:14)
[2019-02-08] MEDS: Polyethylene Glycol 3350 17 GM PACKET PO (04:55)
[2019-02-08] MEDS: Levothyroxine 112 MCG Tablet PO (04:55)
[2019-02-08 05:01] VITALS: BP 128/89; PULSE 62
[2019-02-08] MEDS: Gabapentin 300 MG Capsule PO ×2 (05:01→17:14)
[2019-02-08] MEDS: Losartan Potassium 100 MG Tablet PO ×2 (05:01→17:14)
[2019-02-08] MEDS: Empagliflozin 25 MG Tablet PO (05:01)
[2019-02-08] MEDS: Allopurinol 100 MG Tablet PO (05:01)
[2019-02-08] MEDS: Metoprolol(XL)Succ 25 MG Tablet 12.5 MG PO ×2 (05:01→17:15)
[2019-02-08] MEDS: Aspirin 81 MG TAB.CHEW PO ×2 (05:01→17:14)
[2019-02-08] MEDS: Senna/Docusate Sodium 1 Tablet 2 TABLET PO ×2 (05:01→17:14)
[2019-02-08] MEDS: Furosemide 40 MG Tablet PO ×2 (05:01→17:14)
[2019-02-08] MEDS: Menthol/Lanolin/Calamine/Znox 113 GM Tube 1 APPLIC TOPICAL ×3 (05:07→22:03)
[2019-02-08] MEDS: Nystatin Powder 15gm Bottle 1 APPLIC TOPICAL ×2 (05:08→22:04)
[2019-02-08 06:35] LABS: Bedside Glucose 152 mg/dL (70-110)
[2019-02-08] MEDS: Glucerna Shake 120 ML LIQUID PO ×3 (08:00→17:17)
[2019-02-08 11:31] LABS: Bedside Glucose 186 mg/dL (70-110)
[2019-02-08 15:13] VITALS: BP 131/61; PULSE 60; RESP 18; TEMP 36.7; O2SAT 96
[2019-02-08 17:00] LABS: Bedside Glucose 154 mg/dL (70-110)
[2019-02-08 17:15] VITALS: BP 131/61; PULSE 60
[2019-02-08 21:10] LABS: Bedside Glucose 166 mg/dL (70-110)
[2019-02-08 22:00] VITALS: PULSE 62; RESP 18; O2SAT 96
[2019-02-08] MEDS: MELATONIN 10 MG TABLET PO (22:04)
[2019-02-08] MEDS: traZODone 50 MG Tablet PO (22:06)
[2019-02-09] MEDS: Menthol/Lanolin/Calamine/Znox 113 GM Tube 1 APPLIC TOPICAL ×3 (06:42→20:57)
[2019-02-09] MEDS: Nystatin Powder 15gm Bottle 1 APPLIC TOPICAL ×2 (06:43→20:57)
[2019-02-09] MEDS: Empagliflozin 25 MG Tablet PO (06:46)
[2019-02-09] MEDS: Allopurinol 100 MG Tablet PO (06:46)
[2019-02-09] MEDS: Losartan Potassium 100 MG Tablet PO ×2 (06:46→17:24)
[2019-02-09] MEDS: Aspirin 81 MG TAB.CHEW PO ×2 (06:46→17:23)
[2019-02-09] MEDS: Senna/Docusate Sodium 1 Tablet 2 TABLET PO ×2 (06:46→17:25)
[2019-02-09] MEDS: Polyethylene Glycol 3350 17 GM PACKET PO (06:46)
[2019-02-09] MEDS: Paroxetine 20 MG Tablet 40 MG PO (06:46)
[2019-02-09 06:47] VITALS: BP 144/62; PULSE 64
[2019-02-09] MEDS: LINAGLIPTIN 5 MG TABLET PO (06:47)
[2019-02-09] MEDS: Furosemide 40 MG Tablet PO ×2 (06:47→17:25)
[2019-02-09] MEDS: Gabapentin 300 MG Capsule PO ×2 (06:47→17:25)
[2019-02-09] MEDS: Levothyroxine 112 MCG Tablet PO (06:47)
[2019-02-09] MEDS: Divalproex (ER) 500 MG Tablet PO ×2 (06:47→17:24)
[2019-02-09] MEDS: Metoprolol(XL)Succ 25 MG Tablet 12.5 MG PO ×2 (06:47→17:26)
[2019-02-09] MEDS: Glucerna Shake 120 ML LIQUID PO ×3 (08:17→17:28)
[2019-02-09 09:57] VITALS: PULSE 68; RESP 18; O2SAT 96
[2019-02-09 15:28] VITALS: BP 143/70; PULSE 60; RESP 18; TEMP 36.8; O2SAT 97
[2019-02-09 17:26] VITALS: BP 143/70; PULSE 60
[2019-02-09] MEDS: HYDROmorphone 2 MG TABLET PO (20:56)
[2019-02-09] MEDS: MELATONIN 10 MG TABLET PO (20:58)
[2019-02-09] MEDS: traZODone 50 MG Tablet PO (20:59)
[2019-02-09 21:20] LABS: Bedside Glucose 169 mg/dL (70-110)
[2019-02-10] MEDS: Nystatin Powder 15gm Bottle 1 APPLIC TOPICAL ×2 (04:52→20:24)
[2019-02-10] MEDS: Menthol/Lanolin/Calamine/Znox 113 GM Tube 1 APPLIC TOPICAL ×3 (04:52→20:25)
[2019-02-10] MEDS: Polyethylene Glycol 3350 17 GM PACKET PO (04:53)
[2019-02-10] MEDS: Senna/Docusate Sodium 1 Tablet 2 TABLET PO ×2 (04:53→17:11)
[2019-02-10] MEDS: Furosemide 40 MG Tablet PO ×2 (04:53→17:11)
[2019-02-10] MEDS: Levothyroxine 112 MCG Tablet PO (04:54)
[2019-02-10] MEDS: Allopurinol 100 MG Tablet PO (04:54)
[2019-02-10] MEDS: Gabapentin 300 MG Capsule PO ×2 (04:54→17:11)
[2019-02-10] MEDS: Losartan Potassium 100 MG Tablet PO ×2 (04:54→17:11)
[2019-02-10] MEDS: Divalproex (ER) 500 MG Tablet PO ×2 (04:54→17:11)
[2019-02-10] MEDS: Aspirin 81 MG TAB.CHEW PO ×2 (04:54→17:11)
[2019-02-10] MEDS: Paroxetine 20 MG Tablet 40 MG PO (04:55)
[2019-02-10] MEDS: LINAGLIPTIN 5 MG TABLET PO (04:55)
[2019-02-10] MEDS: Empagliflozin 25 MG Tablet PO (05:00)
[2019-02-10 05:03] VITALS: BP 114/66; PULSE 65
[2019-02-10] MEDS: Metoprolol(XL)Succ 25 MG Tablet 12.5 MG PO ×2 (05:03→17:10)
[2019-02-10 06:26] LABS: Bedside Glucose 134 mg/dL (70-110)
[2019-02-10] MEDS: Glucerna Shake 120 ML LIQUID PO (08:12)
--- NOTE | 2019-02-10 11:28 | CASEMGMT ---
Insurance: Continued stay review clinicals faxed to Anahi nurse reviewer, at [facility]. Auth # [id number].
[2019-02-10 15:20] VITALS: BP 148/61; PULSE 60; RESP 16; TEMP 36.3; O2SAT 94
--- NOTE | 2019-02-10 16:03 | CASEMGMT ---
Insurance: Patient approved for continued stay 02/10/19-02/17/19 with next review date 02/17/19. Auth # [id number].
[2019-02-10 17:10] VITALS: BP 148/61; PULSE 60
[2019-02-10] MEDS: traZODone 50 MG Tablet PO (20:26)
[2019-02-10] MEDS: MELATONIN 10 MG TABLET PO (20:29)
[2019-02-10 20:41] VITALS: PULSE 60; RESP 18; O2SAT 97
[2019-02-10 21:06] LABS: Bedside Glucose 155 mg/dL (70-110)
[2019-02-11] MEDS: Menthol/Lanolin/Calamine/Znox 113 GM Tube 1 APPLIC TOPICAL ×3 (05:42→21:40)
[2019-02-11] MEDS: Paroxetine 20 MG Tablet 40 MG PO (05:43)
[2019-02-11] MEDS: LINAGLIPTIN 5 MG TABLET PO (05:43)
[2019-02-11] MEDS: Aspirin 81 MG TAB.CHEW PO ×2 (05:44→17:18)
[2019-02-11] MEDS: Empagliflozin 25 MG Tablet PO (05:44)
[2019-02-11] MEDS: Divalproex (ER) 500 MG Tablet PO ×2 (05:44→17:18)
[2019-02-11] MEDS: Gabapentin 300 MG Capsule PO ×2 (05:44→17:17)
[2019-02-11] MEDS: Levothyroxine 112 MCG Tablet PO (05:44)
[2019-02-11] MEDS: Losartan Potassium 100 MG Tablet PO ×2 (05:44→17:18)
[2019-02-11] MEDS: Senna/Docusate Sodium 1 Tablet 2 TABLET PO ×2 (05:44→17:17)
[2019-02-11] MEDS: Allopurinol 100 MG Tablet PO (05:44)
[2019-02-11] MEDS: Furosemide 40 MG Tablet PO ×2 (05:45→17:17)
[2019-02-11] MEDS: Polyethylene Glycol 3350 17 GM PACKET PO (05:45)
[2019-02-11 05:50] VITALS: BP 158/83; PULSE 62
[2019-02-11] MEDS: Metoprolol(XL)Succ 25 MG Tablet 12.5 MG PO ×2 (05:50→17:18)
[2019-02-11] MEDS: Nystatin Powder 15gm Bottle 1 APPLIC TOPICAL ×2 (05:53→21:40)
[2019-02-11 05:56] LABS: Absolute Lymphocyte Count 2.55 X10^3/ul (0.83-4.51); Absolute Neutrophil Count 3.8 X10^3/uL (2.0-7.7); Basophil# 0.02 X10^3/uL; Basophil% 0.3 % (0-1); Eosinophil# 0.33 X10^3/uL; Eosinophils% 4.4 % (0-5); Hematocrit 35.3 % (40-54); Hemoglobin 10.7 g/dl (13.0-16.5); Lymphocyte # 2.55 X10^3/ul (4.0); Mean Corp Hgb Conc 30.3 g/gl (32-36); Mean Corpuscular Hgb 29.4 pg (27.0-32.0); Mean Platelet Vol. 8.8 fl (6.2-12.0); Monocyte# 0.74 X10^3/uL; Monocyte% 9.9 % (0-10); Neutrophil # 3.83 X10^3/uL (2.7-7.7); Neutrophil % 50.9 % (47-70); Platelet Count 661 K/mm3 (150-450); RBC Distribution Width CV 16.2 % (11.6-14.6); RBC Distribution Width SD 52.9 fl (35.1-43.9); Red Blood Count 3.64 M/mm3 (4.6-6.2); White Blood Count 7.5 K/mm3 (4.4-11.0)
[2019-02-11 05:57] LABS: POSITIVE COUNT NO; POSITIVE DIFFERENTIAL NO; POSITIVE MORPHOLOGY NO
[2019-02-11 06:07] LABS: Anion Gap 7 (5-15); BUN 16 mg/dL (7-18); BUN/Creat Ratio 19.8 RATIO (10-20); Calcium,Total 8.5 mg/dL (8.5-10.1); Chloride 106 mmol/L (98-107); Creatinine, Serum 0.81 mg/dL (0.70-1.30); EST Glomerular Filtration Rate 99 mL/min (>60); Est Glom Filt Rate - Afr Amer 120 mL/min (>60); Estimated Creatinine Clearance 78.58 ml/min; Glucose 118 mg/dL (74-106); Potassium 3.8 mmol/L (3.5-5.1); Sodium Level 146 mmol/L (136-145)
[2019-02-11 06:35] LABS: Bedside Glucose 133 mg/dL (70-110)
[2019-02-11] MEDS: Tuberculin,Purif.prot.deriv. 50 TU/ML Vial 5 ML ID (09:57)
[2019-02-11 10:00] VITALS: PULSE 61; RESP 18; O2SAT 96
[2019-02-11 15:52] VITALS: BP 141/64; PULSE 60; RESP 18; TEMP 36.4; O2SAT 96
[2019-02-11 17:18] VITALS: BP 141/64; PULSE 60
[2019-02-11 21:26] LABS: Bedside Glucose 152 mg/dL (70-110)
[2019-02-11] MEDS: traZODone 50 MG Tablet PO (21:41)
[2019-02-11] MEDS: MELATONIN 10 MG TABLET PO (21:41)
[2019-02-11] MEDS: HYDROmorphone 2 MG TABLET PO (21:47)
[2019-02-12] MEDS: Menthol/Lanolin/Calamine/Znox 113 GM Tube 1 APPLIC TOPICAL ×3 (05:01→19:55)
[2019-02-12] MEDS: Polyethylene Glycol 3350 17 GM PACKET PO (05:03)
[2019-02-12] MEDS: Losartan Potassium 100 MG Tablet PO ×2 (05:03→16:59)
[2019-02-12] MEDS: Divalproex (ER) 500 MG Tablet PO ×2 (05:03→16:59)
[2019-02-12] MEDS: Aspirin 81 MG TAB.CHEW PO ×2 (05:03→16:59)
[2019-02-12] MEDS: Nystatin Powder 15gm Bottle 1 APPLIC TOPICAL ×2 (05:03→19:56)
[2019-02-12] MEDS: Senna/Docusate Sodium 1 Tablet 2 TABLET PO ×2 (05:03→16:59)
[2019-02-12 05:04] VITALS: BP 138/69; PULSE 61
[2019-02-12] MEDS: Allopurinol 100 MG Tablet PO (05:04)
[2019-02-12] MEDS: Levothyroxine 112 MCG Tablet PO (05:04)
[2019-02-12] MEDS: Paroxetine 20 MG Tablet 40 MG PO (05:04)
[2019-02-12] MEDS: Metoprolol(XL)Succ 25 MG Tablet 12.5 MG PO ×2 (05:04→16:59)
[2019-02-12] MEDS: LINAGLIPTIN 5 MG TABLET PO (05:10)
[2019-02-12] MEDS: Gabapentin 300 MG Capsule PO ×2 (05:10→16:59)
[2019-02-12] MEDS: Furosemide 40 MG Tablet PO ×2 (05:10→16:59)
[2019-02-12] MEDS: Empagliflozin 25 MG Tablet PO (05:11)
[2019-02-12 06:30] LABS: Bedside Glucose 103 mg/dL (70-110)
[2019-02-12 10:00] VITALS: PULSE 62; RESP 18; O2SAT 95
--- NOTE | 2019-02-12 13:27 | CASEMGMT ---
Social Work Plan of care meeting held with pt and pt in attendance. Pt is receiving PT/OT and making some progress. Pt is currently requiring two person assist for out of bed mobility. No d/c date set at this time. 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 Pt/family made aware that insurance update is due 02/17 and continued stay is not guaranteed. SW discussed with pt and need for plan should insurance not approve continued stay. Pt understanding that she is unable to care for pt in his current conditions. SW discussed ECF placement and provided list of area ECF's. SW also discussed financial liability and provided Medicaid application and explanation. SW encouraged pt to complete application to get process started should pt need ECF. Pt expresses understanding and agreement. Will continue with treatment plan at this time. SW to follow for d/c planning and support. ANIL Devries
[2019-02-12 15:26] VITALS: BP 128/59; PULSE 59; RESP 18; TEMP 36.7; O2SAT 94
[2019-02-12 16:59] VITALS: BP 128/59; PULSE 59
[2019-02-12 17:06] LABS: Bedside Glucose 147 mg/dL (70-110)
[2019-02-12] MEDS: HYDROmorphone 2 MG TABLET PO (19:54)
[2019-02-12] MEDS: MELATONIN 10 MG TABLET PO (19:56)
[2019-02-12] MEDS: traZODone 50 MG Tablet PO (19:57)
[2019-02-12 20:46] LABS: Bedside Glucose 141 mg/dL (70-110)
[2019-02-13] MEDS: Senna/Docusate Sodium 1 Tablet 2 TABLET PO ×2 (05:04→17:30)
[2019-02-13] MEDS: Polyethylene Glycol 3350 17 GM PACKET PO (05:04)
[2019-02-13] MEDS: Aspirin 81 MG TAB.CHEW PO ×2 (05:04→17:28)
[2019-02-13] MEDS: Losartan Potassium 100 MG Tablet PO ×2 (05:04→17:28)
[2019-02-13] MEDS: Gabapentin 300 MG Capsule PO ×2 (05:04→17:29)
[2019-02-13] MEDS: Paroxetine 20 MG Tablet 40 MG PO (05:04)
[2019-02-13] MEDS: Divalproex (ER) 500 MG Tablet PO ×2 (05:04→17:29)
[2019-02-13 05:05] VITALS: BP 150/64; PULSE 60
[2019-02-13] MEDS: Levothyroxine 112 MCG Tablet PO (05:05)
[2019-02-13] MEDS: Metoprolol(XL)Succ 25 MG Tablet 12.5 MG PO ×2 (05:05→17:30)
[2019-02-13] MEDS: LINAGLIPTIN 5 MG TABLET PO (05:05)
[2019-02-13] MEDS: Allopurinol 100 MG Tablet PO (05:05)
[2019-02-13] MEDS: Furosemide 40 MG Tablet PO ×2 (05:05→17:29)
[2019-02-13] MEDS: Nystatin Powder 15gm Bottle 1 APPLIC TOPICAL ×2 (05:05→20:36)
[2019-02-13] MEDS: Empagliflozin 25 MG Tablet PO (05:05)
[2019-02-13] MEDS: Menthol/Lanolin/Calamine/Znox 113 GM Tube 1 APPLIC TOPICAL ×3 (05:06→20:33)
[2019-02-13 06:41] LABS: Bedside Glucose 119 mg/dL (70-110)
--- NOTE | 2019-02-13 09:56 | MDS.RN ---
Information for the mds was obtained from review of the clinical record, interview of resident, staff, and direct observation of resident's care.
[2019-02-13 15:27] VITALS: BP 133/62; PULSE 59; RESP 18; TEMP 36.6; O2SAT 97
[2019-02-13] MEDS: HYDROmorphone 2 MG TABLET PO (17:27)
[2019-02-13 17:30] VITALS: BP 133/62; PULSE 59
[2019-02-13] MEDS: MELATONIN 10 MG TABLET PO (20:36)
[2019-02-13] MEDS: traZODone 50 MG Tablet PO (20:37)
[2019-02-13 21:45] LABS: Bedside Glucose 173 mg/dL (70-110)
[2019-02-13 22:00] VITALS: PULSE 64; RESP 16; O2SAT 97
[2019-02-14] MEDS: Paroxetine 20 MG Tablet 40 MG PO (04:50)
[2019-02-14] MEDS: Allopurinol 100 MG Tablet PO (04:51)
[2019-02-14] MEDS: Nystatin Powder 15gm Bottle 1 APPLIC TOPICAL ×2 (04:51→20:57)
[2019-02-14] MEDS: Polyethylene Glycol 3350 17 GM PACKET PO (04:51)
[2019-02-14] MEDS: Menthol/Lanolin/Calamine/Znox 113 GM Tube 1 APPLIC TOPICAL ×3 (04:51→20:57)
[2019-02-14] MEDS: Senna/Docusate Sodium 1 Tablet 2 TABLET PO ×2 (04:51→18:23)
[2019-02-14] MEDS: Furosemide 40 MG Tablet PO ×2 (04:52→18:23)
[2019-02-14] MEDS: Levothyroxine 112 MCG Tablet PO (04:52)
[2019-02-14] MEDS: Gabapentin 300 MG Capsule PO ×2 (04:52→18:23)
[2019-02-14] MEDS: Divalproex (ER) 500 MG Tablet PO ×2 (04:52→18:23)
[2019-02-14] MEDS: LINAGLIPTIN 5 MG TABLET PO (04:52)
[2019-02-14] MEDS: Aspirin 81 MG TAB.CHEW PO ×2 (04:52→18:23)
[2019-02-14] MEDS: Losartan Potassium 100 MG Tablet PO ×2 (04:52→18:23)
[2019-02-14 04:53] VITALS: BP 144/71; PULSE 56
[2019-02-14] MEDS: Metoprolol(XL)Succ 25 MG Tablet 12.5 MG PO ×2 (04:53→18:23)
[2019-02-14] MEDS: Empagliflozin 25 MG Tablet PO (04:57)
[2019-02-14 06:45] LABS: Bedside Glucose 111 mg/dL (70-110)
[2019-02-14] MEDS: DULAGLUTIDE 1.5 MG/0.5 ML PEN.INJCTR SQ (09:34)
[2019-02-14 10:00] VITALS: PULSE 66; RESP 16; O2SAT 95
--- NOTE | 2019-02-14 13:43 | MDS.RN ---
Pain interview for owen 02/17/19 completed.
[2019-02-14 15:30] VITALS: BP 134/69; PULSE 60; RESP 18; TEMP 36.8; O2SAT 99
[2019-02-14 18:23] VITALS: BP 134/69; PULSE 64
[2019-02-14] MEDS: HYDROmorphone 2 MG TABLET PO (20:56)
[2019-02-14] MEDS: MELATONIN 10 MG TABLET PO (20:57)
[2019-02-14] MEDS: traZODone 50 MG Tablet PO (20:57)
[2019-02-14 21:05] LABS: Bedside Glucose 166 mg/dL (70-110)
[2019-02-15] MEDS: Paroxetine 20 MG Tablet 40 MG PO (05:51)
[2019-02-15] MEDS: LINAGLIPTIN 5 MG TABLET PO (05:52)
[2019-02-15] MEDS: Empagliflozin 25 MG Tablet PO (05:52)
[2019-02-15] MEDS: Senna/Docusate Sodium 1 Tablet 2 TABLET PO ×2 (05:52→17:30)
[2019-02-15] MEDS: Gabapentin 300 MG Capsule PO ×2 (05:52→17:30)
[2019-02-15] MEDS: Losartan Potassium 100 MG Tablet PO ×2 (05:52→17:30)
[2019-02-15] MEDS: Divalproex (ER) 500 MG Tablet PO ×2 (05:52→17:30)
[2019-02-15] MEDS: Allopurinol 100 MG Tablet PO (05:52)
[2019-02-15] MEDS: Furosemide 40 MG Tablet PO ×2 (05:52→17:30)
[2019-02-15] MEDS: Levothyroxine 112 MCG Tablet PO (05:52)
[2019-02-15] MEDS: Menthol/Lanolin/Calamine/Znox 113 GM Tube 1 APPLIC TOPICAL ×3 (05:53→20:44)
[2019-02-15] MEDS: Nystatin Powder 15gm Bottle 1 APPLIC TOPICAL ×2 (05:54→20:45)
[2019-02-15 05:58] VITALS: BP 176/62; PULSE 66
[2019-02-15] MEDS: Metoprolol(XL)Succ 25 MG Tablet 12.5 MG PO ×2 (05:58→17:31)
[2019-02-15] MEDS: Aspirin 81 MG TAB.CHEW PO ×2 (05:59→17:30)
[2019-02-15 06:50] LABS: Bedside Glucose 104 mg/dL (70-110)
[2019-02-15 12:40] VITALS: PULSE 61; RESP 18; O2SAT 96
[2019-02-15 15:46] VITALS: BP 130/75; PULSE 60; RESP 18; TEMP 36.5; O2SAT 98
[2019-02-15 17:31] VITALS: BP 130/75; PULSE 60
[2019-02-15] MEDS: HYDROmorphone 2 MG TABLET PO (20:38)
[2019-02-15] MEDS: traZODone 50 MG Tablet PO (20:40)
[2019-02-15] MEDS: MELATONIN 10 MG TABLET PO (20:41)
[2019-02-15 21:36] LABS: Bedside Glucose 139 mg/dL (70-110)
[2019-02-16] MEDS: Empagliflozin 25 MG Tablet PO (05:31)
[2019-02-16] MEDS: Aspirin 81 MG TAB.CHEW PO ×2 (05:31→17:06)
[2019-02-16 05:32] VITALS: BP 158/72; PULSE 62
[2019-02-16] MEDS: Losartan Potassium 100 MG Tablet PO ×2 (05:32→17:05)
[2019-02-16] MEDS: Metoprolol(XL)Succ 25 MG Tablet 12.5 MG PO ×2 (05:32→17:10)
[2019-02-16] MEDS: Divalproex (ER) 500 MG Tablet PO ×2 (05:32→17:05)
[2019-02-16] MEDS: Levothyroxine 112 MCG Tablet PO (05:32)
[2019-02-16] MEDS: LINAGLIPTIN 5 MG TABLET PO (05:32)
[2019-02-16] MEDS: Gabapentin 300 MG Capsule PO ×2 (05:32→17:05)
[2019-02-16] MEDS: Allopurinol 100 MG Tablet PO (05:32)
[2019-02-16] MEDS: Furosemide 40 MG Tablet PO ×2 (05:32→17:05)
[2019-02-16] MEDS: Paroxetine 20 MG Tablet 40 MG PO (05:32)
[2019-02-16] MEDS: Senna/Docusate Sodium 1 Tablet 2 TABLET PO ×2 (05:35→17:05)
[2019-02-16] MEDS: Menthol/Lanolin/Calamine/Znox 113 GM Tube 1 APPLIC TOPICAL ×3 (05:38→20:11)
[2019-02-16] MEDS: Nystatin Powder 15gm Bottle 1 APPLIC TOPICAL ×2 (05:39→20:11)
[2019-02-16 06:50] LABS: Bedside Glucose 99 mg/dL (70-110)
[2019-02-16 09:45] VITALS: PULSE 61; RESP 18; O2SAT 97
[2019-02-16 15:47] VITALS: BP 122/68; PULSE 60; RESP 18; TEMP 36.4; O2SAT 94
[2019-02-16 17:10] VITALS: BP 122/68; PULSE 60
[2019-02-16] MEDS: traZODone 50 MG Tablet PO (20:10)
[2019-02-16] MEDS: MELATONIN 10 MG TABLET PO (20:10)
[2019-02-16 20:24] VITALS: PULSE 64; RESP 16; O2SAT 97
[2019-02-16 20:50] LABS: Bedside Glucose 149 mg/dL (70-110)
[2019-02-16 21:25] LABS: Bedside Glucose 133 mg/dL (70-110)
[2019-02-17] MEDS: Losartan Potassium 100 MG Tablet PO ×2 (05:47→17:05)
[2019-02-17] MEDS: Furosemide 40 MG Tablet PO ×2 (05:47→17:06)
[2019-02-17] MEDS: HYDROmorphone 2 MG TABLET PO ×2 (05:47→19:56)
[2019-02-17] MEDS: Paroxetine 20 MG Tablet 40 MG PO (05:47)
[2019-02-17] MEDS: LINAGLIPTIN 5 MG TABLET PO (05:47)
[2019-02-17] MEDS: Divalproex (ER) 500 MG Tablet PO ×2 (05:47→17:06)
[2019-02-17] MEDS: Gabapentin 300 MG Capsule PO ×2 (05:47→17:06)
[2019-02-17] MEDS: Aspirin 81 MG TAB.CHEW PO ×2 (05:47→17:05)
[2019-02-17] MEDS: Levothyroxine 112 MCG Tablet PO (05:48)
[2019-02-17] MEDS: Empagliflozin 25 MG Tablet PO (05:48)
[2019-02-17] MEDS: Senna/Docusate Sodium 1 Tablet 2 TABLET PO ×2 (05:48→17:07)
[2019-02-17] MEDS: Allopurinol 100 MG Tablet PO (05:48)
[2019-02-17 05:49] VITALS: BP 165/78; PULSE 65
[2019-02-17] MEDS: Metoprolol(XL)Succ 25 MG Tablet 12.5 MG PO ×2 (05:49→17:07)
[2019-02-17] MEDS: Menthol/Lanolin/Calamine/Znox 113 GM Tube 1 APPLIC TOPICAL ×3 (05:51→19:57)
[2019-02-17] MEDS: Nystatin Powder 15gm Bottle 1 APPLIC TOPICAL ×2 (05:51→19:57)
[2019-02-17 06:46] LABS: Bedside Glucose 108 mg/dL (70-110)
--- NOTE | 2019-02-17 10:51 | NURSING ---
Addendum entered by Skylar Ken 02/17/19 11:10: Continue Aspirin 81 BID for next 4 wks while NWB. Contine with knee immobilizer at all times except with therapy for ROM. F/u 4 weeks. Original Note: Spoke with [facility], they will fax office visit note from 02/14/19
--- NOTE | 2019-02-17 11:39 | CASEMGMT ---
Insurance: Continued stay review clinicals faxed to Leni at [facility] this day. Auth# [id number].
--- NOTE | 2019-02-17 12:16 | CASEMGMT ---
Insurance Clinical update faxed. Will await continued stay determination. Auth # [id number] ANIL Devries
--- NOTE | 2019-02-17 13:06 | CASEMGMT ---
BIMS and PHQ9 interviews completed for MDS assessment. PHQ9 score 01/15, BIMS ANIL Devries
[2019-02-17 15:32] VITALS: BP 153/76; PULSE 60; RESP 14; TEMP 36.8; O2SAT 93
[2019-02-17 17:07] VITALS: BP 153/76; PULSE 60
[2019-02-17 21:01] LABS: Bedside Glucose 132 mg/dL (70-110)
[2019-02-17] MEDS: MELATONIN 10 MG TABLET PO (21:03)
[2019-02-17] MEDS: traZODone 50 MG Tablet PO (21:04)
[2019-02-18] MEDS: Allopurinol 100 MG Tablet PO (04:25)
[2019-02-18] MEDS: Empagliflozin 25 MG Tablet PO (04:25)
[2019-02-18 04:26] VITALS: BP 120/75; PULSE 62
[2019-02-18] MEDS: Divalproex (ER) 500 MG Tablet PO ×2 (04:26→17:06)
[2019-02-18] MEDS: Furosemide 40 MG Tablet PO ×2 (04:26→17:06)
[2019-02-18] MEDS: Paroxetine 20 MG Tablet 40 MG PO (04:26)
[2019-02-18] MEDS: LINAGLIPTIN 5 MG TABLET PO (04:26)
[2019-02-18] MEDS: Levothyroxine 112 MCG Tablet PO (04:26)
[2019-02-18] MEDS: Senna/Docusate Sodium 1 Tablet 2 TABLET PO ×2 (04:26→17:05)
[2019-02-18] MEDS: Metoprolol(XL)Succ 25 MG Tablet 12.5 MG PO ×2 (04:26→17:06)
[2019-02-18] MEDS: Gabapentin 300 MG Capsule PO ×2 (04:26→17:06)
[2019-02-18] MEDS: Aspirin 81 MG TAB.CHEW PO ×2 (04:27→17:06)
[2019-02-18] MEDS: Losartan Potassium 100 MG Tablet PO ×2 (04:27→17:06)
[2019-02-18] MEDS: Menthol/Lanolin/Calamine/Znox 113 GM Tube 1 APPLIC TOPICAL ×3 (04:30→20:43)
[2019-02-18] MEDS: Nystatin Powder 15gm Bottle 1 APPLIC TOPICAL ×2 (04:30→20:44)
[2019-02-18 06:11] LABS: Bedside Glucose 85 mg/dL (70-110)
[2019-02-18 06:26] LABS: Absolute Lymphocyte Count 2.96 X10^3/ul (0.83-4.51); Absolute Neutrophil Count 3.5 X10^3/uL (2.0-7.7); Basophil# 0.04 X10^3/uL; Basophil% 0.5 % (0-1); Eosinophil# 0.36 X10^3/uL; Eosinophils% 4.7 % (0-5); Hematocrit 36.8 % (40-54); Hemoglobin 11.3 g/dl (13.0-16.5); Lymphocyte # 2.96 X10^3/ul (4.0); Lymphocyte % 38.9 % (19-41); Mean Corp Hgb Conc 30.7 g/gl (32-36); Mean Corpuscular Hgb 29.1 pg (27.0-32.0); Mean Corpuscular Volume 94.8 fL (80-94); Mean Platelet Vol. 9.5 fl (6.2-12.0); Monocyte# 0.75 X10^3/uL; Monocyte% 9.9 % (0-10); Neutrophil # 3.49 X10^3/uL (2.7-7.7); Platelet Count 502 K/mm3 (150-450); RBC Distribution Width CV 16.5 % (11.6-14.6); RBC Distribution Width SD 56.7 fl (35.1-43.9); Red Blood Count 3.88 M/mm3 (4.6-6.2); White Blood Count 7.6 K/mm3 (4.4-11.0)
[2019-02-18 06:38] LABS: Anion Gap 8 (5-15); BUN 18 mg/dL (7-18); BUN/Creat Ratio 22.2 RATIO (10-20); Calcium,Total 8.2 mg/dL (8.5-10.1); Chloride 107 mmol/L (98-107); Creatinine, Serum 0.81 mg/dL (0.70-1.30); EST Glomerular Filtration Rate 99 mL/min (>60); Est Glom Filt Rate - Afr Amer 120 mL/min (>60); Estimated Creatinine Clearance 78.58 ml/min; Glucose 84 mg/dL (74-106); Potassium 3.5 mmol/L (3.5-5.1); Sodium Level 145 mmol/L (136-145)
[2019-02-18 06:39] LABS: POSITIVE COUNT NO; POSITIVE DIFFERENTIAL NO; POSITIVE MORPHOLOGY NO
[2019-02-18 15:53] VITALS: BP 154/70; PULSE 60; RESP 18; TEMP 36.8; O2SAT 96
[2019-02-18 17:06] VITALS: BP 154/70; PULSE 60
[2019-02-18] MEDS: MELATONIN 10 MG TABLET PO (20:45)
[2019-02-18] MEDS: traZODone 50 MG Tablet PO (20:46)
[2019-02-18 21:25] LABS: Bedside Glucose 151 mg/dL (70-110)
[2019-02-18 21:30] VITALS: PULSE 80; RESP 18; O2SAT 96
[2019-02-18] MEDS: HYDROmorphone 2 MG TABLET PO (23:59)
[2019-02-19] MEDS: Menthol/Lanolin/Calamine/Znox 113 GM Tube 1 APPLIC TOPICAL ×2 (04:36→21:05)
[2019-02-19] MEDS: Losartan Potassium 100 MG Tablet PO ×2 (04:38→17:06)
[2019-02-19] MEDS: Furosemide 40 MG Tablet PO ×2 (04:38→17:06)
[2019-02-19] MEDS: Divalproex (ER) 500 MG Tablet PO ×2 (04:38→17:06)
[2019-02-19] MEDS: Empagliflozin 25 MG Tablet PO (04:38)
[2019-02-19] MEDS: Paroxetine 20 MG Tablet 40 MG PO (04:38)
[2019-02-19] MEDS: Senna/Docusate Sodium 1 Tablet 2 TABLET PO ×2 (04:38→17:06)
[2019-02-19 04:39] VITALS: BP 163/77; PULSE 60
[2019-02-19] MEDS: Nystatin Powder 15gm Bottle 1 APPLIC TOPICAL ×2 (04:39→21:05)
[2019-02-19] MEDS: Levothyroxine 112 MCG Tablet PO (04:39)
[2019-02-19] MEDS: Metoprolol(XL)Succ 25 MG Tablet 12.5 MG PO ×2 (04:39→17:06)
[2019-02-19] MEDS: Gabapentin 300 MG Capsule PO ×2 (04:39→17:06)
[2019-02-19] MEDS: LINAGLIPTIN 5 MG TABLET PO (04:40)
[2019-02-19] MEDS: Allopurinol 100 MG Tablet PO (04:40)
[2019-02-19] MEDS: Aspirin 81 MG TAB.CHEW PO ×2 (04:41→17:06)
[2019-02-19] MEDS: Acetaminophen 500 MG Tablet 1000 MG PO (04:51)
[2019-02-19 06:00] VITALS: PULSE 60; RESP 18; O2SAT 94
[2019-02-19] MEDS: HYDROmorphone 2 MG TABLET PO (06:11)
[2019-02-19 06:20] LABS: Bedside Glucose 117 mg/dL (70-110)
--- NOTE | 2019-02-19 12:43 | CASEMGMT ---
Insurance Continued stay approved with update due 02/24/19. Pt notified. Auth # [id number] ANIL Devries
[2019-02-19 15:05] VITALS: BP 150/64; PULSE 56; RESP 20; TEMP 36.6; O2SAT 94
[2019-02-19 17:06] VITALS: BP 150/64; PULSE 56
[2019-02-19 20:51] LABS: Bedside Glucose 174 mg/dL (70-110)
[2019-02-19] MEDS: MELATONIN 10 MG TABLET PO (21:06)
[2019-02-19] MEDS: traZODone 50 MG Tablet PO (21:07)
[2019-02-20] MEDS: Menthol/Lanolin/Calamine/Znox 113 GM Tube 1 APPLIC TOPICAL ×3 (05:05→21:11)
[2019-02-20] MEDS: Nystatin Powder 15gm Bottle 1 APPLIC TOPICAL ×2 (05:06→21:12)
[2019-02-20 05:07] VITALS: BP 158/64; PULSE 61
[2019-02-20] MEDS: Allopurinol 100 MG Tablet PO (05:07)
[2019-02-20] MEDS: Furosemide 40 MG Tablet PO ×2 (05:07→17:15)
[2019-02-20] MEDS: Losartan Potassium 100 MG Tablet PO ×2 (05:07→17:16)
[2019-02-20] MEDS: Divalproex (ER) 500 MG Tablet PO ×2 (05:07→17:15)
[2019-02-20] MEDS: Metoprolol(XL)Succ 25 MG Tablet 12.5 MG PO ×2 (05:07→17:16)
[2019-02-20] MEDS: Gabapentin 300 MG Capsule PO ×2 (05:07→17:15)
[2019-02-20] MEDS: Senna/Docusate Sodium 1 Tablet 2 TABLET PO ×2 (05:07→17:15)
[2019-02-20] MEDS: Paroxetine 20 MG Tablet 40 MG PO (05:07)
[2019-02-20] MEDS: Aspirin 81 MG TAB.CHEW PO ×2 (05:07→17:17)
[2019-02-20] MEDS: LINAGLIPTIN 5 MG TABLET PO (05:07)
[2019-02-20] MEDS: Levothyroxine 112 MCG Tablet PO (05:07)
[2019-02-20] MEDS: Empagliflozin 25 MG Tablet PO (05:07)
[2019-02-20 07:06] LABS: Bedside Glucose 112 mg/dL (70-110)
[2019-02-20 15:49] VITALS: BP 147/70; PULSE 59; RESP 18; TEMP 36.7; O2SAT 95
[2019-02-20 17:16] VITALS: PULSE 59
[2019-02-20 21:00] VITALS: PULSE 62; RESP 17; O2SAT 96
[2019-02-20] MEDS: traZODone 50 MG Tablet PO (21:14)
[2019-02-20] MEDS: MELATONIN 10 MG TABLET PO (21:14)
[2019-02-20 21:21] LABS: Bedside Glucose 150 mg/dL (70-110)
[2019-02-21] MEDS: Aspirin 81 MG TAB.CHEW PO ×2 (04:51→17:20)
[2019-02-21] MEDS: Menthol/Lanolin/Calamine/Znox 113 GM Tube 1 APPLIC TOPICAL ×3 (04:51→21:25)
[2019-02-21 04:52] VITALS: BP 178/86; PULSE 61
[2019-02-21] MEDS: LINAGLIPTIN 5 MG TABLET PO (04:52)
[2019-02-21] MEDS: Allopurinol 100 MG Tablet PO (04:52)
[2019-02-21] MEDS: Metoprolol(XL)Succ 25 MG Tablet 12.5 MG PO ×2 (04:52→17:20)
[2019-02-21] MEDS: Paroxetine 20 MG Tablet 40 MG PO (04:52)
[2019-02-21] MEDS: Levothyroxine 112 MCG Tablet PO (04:53)
[2019-02-21] MEDS: Furosemide 40 MG Tablet PO ×2 (04:54→17:19)
[2019-02-21] MEDS: Gabapentin 300 MG Capsule PO ×2 (04:54→17:20)
[2019-02-21] MEDS: Senna/Docusate Sodium 1 Tablet 2 TABLET PO ×2 (04:54→17:19)
[2019-02-21] MEDS: Losartan Potassium 100 MG Tablet PO ×2 (04:54→17:20)
[2019-02-21] MEDS: Divalproex (ER) 500 MG Tablet PO ×2 (04:54→17:19)
[2019-02-21] MEDS: Empagliflozin 25 MG Tablet PO (04:56)
[2019-02-21] MEDS: Nystatin Powder 15gm Bottle 1 APPLIC TOPICAL ×2 (04:56→21:25)
[2019-02-21 06:55] LABS: Bedside Glucose 119 mg/dL (70-110)
[2019-02-21] MEDS: DULAGLUTIDE 1.5 MG/0.5 ML PEN.INJCTR SQ (10:34)
[2019-02-21 16:00] VITALS: BP 139/82; PULSE 59; RESP 20; TEMP 36.6; O2SAT 98
--- NOTE | 2019-02-21 16:28 | CASEMGMT ---
Social Work SW met with pt and discussed discharge plan. At this time pt does not feel she can care for pt at home. SW encouraged to complete medicaid application given to her last week and to make decision on detention ECF she would be interested in. SW explained medicaid process and provided emotional support. stating she will complete over the weekend. aware insurance update is due on Sunday and continued stay is not guaranteed. SW will continue to follow for d/c planning and emotional support. ANIL Devries
[2019-02-21] MEDS: Acetaminophen 500 MG Tablet 1000 MG PO (16:33)
[2019-02-21 17:20] VITALS: BP 139/82; PULSE 59
[2019-02-21] MEDS: traZODone 50 MG Tablet PO (21:29)
[2019-02-21] MEDS: MELATONIN 10 MG TABLET PO (21:30)
[2019-02-21 21:51] LABS: Bedside Glucose 157 mg/dL (70-110)
[2019-02-21 23:17] VITALS: RESP 16; O2SAT 97
[2019-02-22] MEDS: Senna/Docusate Sodium 1 Tablet 2 TABLET PO ×2 (05:16→16:58)
[2019-02-22 05:17] VITALS: BP 156/72; PULSE 62
[2019-02-22] MEDS: Metoprolol(XL)Succ 25 MG Tablet 12.5 MG PO ×2 (05:17→16:58)
[2019-02-22] MEDS: Paroxetine 20 MG Tablet 40 MG PO (05:18)
[2019-02-22] MEDS: Gabapentin 300 MG Capsule PO ×2 (05:19→16:57)
[2019-02-22] MEDS: Aspirin 81 MG TAB.CHEW PO ×2 (05:19→16:56)
[2019-02-22] MEDS: Furosemide 40 MG Tablet PO ×2 (05:19→16:57)
[2019-02-22] MEDS: Allopurinol 100 MG Tablet PO (05:19)
[2019-02-22] MEDS: Losartan Potassium 100 MG Tablet PO ×2 (05:19→16:57)
[2019-02-22] MEDS: LINAGLIPTIN 5 MG TABLET PO (05:19)
[2019-02-22] MEDS: Divalproex (ER) 500 MG Tablet PO ×2 (05:19→16:57)
[2019-02-22] MEDS: Empagliflozin 25 MG Tablet PO (05:19)
[2019-02-22] MEDS: Levothyroxine 112 MCG Tablet PO (05:19)
[2019-02-22] MEDS: Nystatin Powder 15gm Bottle 1 APPLIC TOPICAL ×2 (05:21→23:09)
[2019-02-22] MEDS: Menthol/Lanolin/Calamine/Znox 113 GM Tube 1 APPLIC TOPICAL ×3 (05:23→23:09)
[2019-02-22 06:36] LABS: Bedside Glucose 101 mg/dL (70-110)
[2019-02-22 10:00] VITALS: PULSE 84; RESP 16; O2SAT 95
[2019-02-22 15:23] VITALS: BP 145/71; PULSE 57; RESP 20; TEMP 36.6; O2SAT 95
--- NOTE | 2019-02-22 15:31 | NURSING ---
This nurse made aware of skin tear to Pt upper Right leg just above immobilizer. Area cleansed applied ABD dressing to pad and protect. Sher RN aware
[2019-02-22 16:58] VITALS: BP 145/71; PULSE 57
[2019-02-22 22:20] LABS: Bedside Glucose 132 mg/dL (70-110)
[2019-02-22] MEDS: traZODone 50 MG Tablet PO (23:07)
[2019-02-22] MEDS: MELATONIN 10 MG TABLET PO (23:08)
[2019-02-22] MEDS: Acetaminophen 500 MG Tablet 1000 MG PO (23:08)
[2019-02-23] MEDS: Losartan Potassium 100 MG Tablet PO ×2 (05:40→17:03)
[2019-02-23] MEDS: Aspirin 81 MG TAB.CHEW PO ×2 (05:40→17:03)
[2019-02-23] MEDS: Gabapentin 300 MG Capsule PO ×2 (05:41→17:04)
[2019-02-23] MEDS: Divalproex (ER) 500 MG Tablet PO ×2 (05:41→17:03)
[2019-02-23] MEDS: Empagliflozin 25 MG Tablet PO (05:41)
[2019-02-23] MEDS: Furosemide 40 MG Tablet PO ×2 (05:41→17:04)
[2019-02-23 05:42] VITALS: BP 132/66; PULSE 66
[2019-02-23] MEDS: LINAGLIPTIN 5 MG TABLET PO (05:42)
[2019-02-23] MEDS: Levothyroxine 112 MCG Tablet PO (05:42)
[2019-02-23] MEDS: Metoprolol(XL)Succ 25 MG Tablet 12.5 MG PO ×2 (05:42→17:04)
[2019-02-23] MEDS: Paroxetine 20 MG Tablet 40 MG PO (05:42)
[2019-02-23] MEDS: Allopurinol 100 MG Tablet PO (05:43)
[2019-02-23] MEDS: Menthol/Lanolin/Calamine/Znox 113 GM Tube 1 APPLIC TOPICAL ×3 (05:47→21:58)
[2019-02-23] MEDS: Nystatin Powder 15gm Bottle 1 APPLIC TOPICAL ×2 (05:47→21:59)
[2019-02-23 06:35] LABS: Bedside Glucose 94 mg/dL (70-110)
[2019-02-23 16:00] VITALS: BP 130/77; PULSE 59; RESP 20; TEMP 36.5; O2SAT 97
[2019-02-23 17:04] VITALS: BP 130/77; PULSE 59
[2019-02-23] MEDS: Senna/Docusate Sodium 1 Tablet 2 TABLET PO (17:04)
[2019-02-23 21:36] LABS: Bedside Glucose 146 mg/dL (70-110)
[2019-02-23] MEDS: traZODone 50 MG Tablet PO (21:58)
[2019-02-23] MEDS: MELATONIN 10 MG TABLET PO (21:58)
[2019-02-23 22:00] VITALS: PULSE 72; RESP 16; O2SAT 95
[2019-02-24] MEDS: Menthol/Lanolin/Calamine/Znox 113 GM Tube 1 APPLIC TOPICAL ×3 (05:10→21:05)
[2019-02-24] MEDS: Levothyroxine 112 MCG Tablet PO (05:11)
[2019-02-24] MEDS: Divalproex (ER) 500 MG Tablet PO ×2 (05:11→17:51)
[2019-02-24] MEDS: Paroxetine 20 MG Tablet 40 MG PO (05:11)
[2019-02-24] MEDS: Aspirin 81 MG TAB.CHEW PO ×2 (05:11→17:51)
[2019-02-24] MEDS: Allopurinol 100 MG Tablet PO (05:11)
[2019-02-24] MEDS: Gabapentin 300 MG Capsule PO ×2 (05:11→17:51)
[2019-02-24] MEDS: Losartan Potassium 100 MG Tablet PO ×2 (05:11→17:51)
[2019-02-24] MEDS: LINAGLIPTIN 5 MG TABLET PO (05:11)
[2019-02-24] MEDS: Furosemide 40 MG Tablet PO ×2 (05:12→17:51)
[2019-02-24] MEDS: Empagliflozin 25 MG Tablet PO (05:12)
[2019-02-24] MEDS: Nystatin Powder 15gm Bottle 1 APPLIC TOPICAL ×2 (05:12→21:05)
[2019-02-24] MEDS: Senna/Docusate Sodium 1 Tablet 2 TABLET PO ×2 (05:15→17:51)
[2019-02-24 05:16] VITALS: BP 152/76; PULSE 62
[2019-02-24] MEDS: Metoprolol(XL)Succ 25 MG Tablet 12.5 MG PO ×2 (05:16→17:51)
[2019-02-24 06:30] LABS: Bedside Glucose 78 mg/dL (70-110)
--- NOTE | 2019-02-24 11:00 | CASEMGMT ---
Insurance Clinical update faxed. Will await continued stay determination. Auth # [id number] ANIL Devries
--- NOTE | 2019-02-24 15:45 | PCM.TXEXTCAR ---
- Diet 02/03/19 14:52 Diet: Cardiac: Calorie-Controlled Food consistency:: Regular Liquid Consistency:: Regular/Thin Is pt able to select menu?: No How many daily calories?: 1999 calorie - Routine Orders/Code Status Suppository Type: Dulcolax 10mg Suppository Frequency: Daily PRN Routine Lab Work: CBC, BMP Code Status: Full Code - Wound(s) right lower leg Wound Type: Surgical Incision Dressing Change: Dry Sterile Dressing right leg near knee Wound Type: Surgical Incision Dressing Change: Dry Sterile Dressing Right upper leg Wound Type: Skin Tear Dressing Change: Dry Sterile Dressing - Therapies Weight Bearing: Non weight bearing Extremity Affected:: Right Lower Physical Therapy: Eval and Treat Occupational Therapy: Eval and Treat - Problem/Diagnosis (1) Fall Status: Acute Current Visit: Yes (2) Fracture of right tibia and fibula Status: Acute Current Visit: No (3) Chronic diastolic heart failure Status: Chronic Current Visit: No (4) Lymphedema Status: Chronic Current Visit: No (5) Diabetes mellitus Status: Chronic Current Visit: No (6) GERD (gastroesophageal reflux disease) Status: Chronic Current Visit: No (7) Hypothyroidism Status: Chronic Current Visit: No (8) Depression Status: Chronic Current Visit: No (9) EH (obstructive sleep apnea) Status: Chronic Current Visit: No (10) Obesity, morbid, BMI 40.0-49.9 Status: Chronic Current Visit: No (11) Hyperlipidemia Status: Chronic Current Visit: No (12) Hypertension Status: Chronic Current Visit: No - Allergies/Procedures Done in Hospital Allergies/Adverse Reactions: Allergies cocaine Allergy (Verified 09/11/18 13:52) Unknown atorvastatin calcium [From Lipitor] Adverse Reaction (Verified 09/11/18 13:52) Pain in joints haloperidol [From Haldol] Adverse Reaction (Verified 09/11/18 13:52) Other WENT CRAZY morphine Adverse Reaction (Verified 09/11/18 13:52) Other extremely aggitated oxycodone [From OxyIR] Adverse Reaction (Verified 09/11/18 13:52) Pain in joints extremely aggitated prednisone Adverse Reaction (Verified 09/11/18 13:52) ANXIOUS, INSOMNIA STERIODS Adverse Reaction (Uncoded 08/16/18 02:59) Other ANXIETY INSOMNIA - Type of Care/Length of Stay Estimated LOS: More Than 30 Days Type of Care Needed: Intermediate Rehab Potential: Fair Prognosis: Fair - Additional Orders/Day of Discharge Day of Discharge: 03/01/19 - Dietary and Speech Recommendations Dietitian Recommendations/Changes: Please weigh res using same scale for greater accuracy - Follow Up Care Primary Care Physician: Gil Wheeler Chi, MD [Primary Care Provider] - Please follow up with your Primary Care Physician in: 1 week. Please Follow Up With: Dominick Rutledge MD/Esteban CHAVEZ When: call to schedule appt 4 wks from 02/14/19 Please Follow Up With: Dr. Atkins When: as needed after discharge
--- NOTE | 2019-02-24 15:48 | PCM.DC.SUM ---
Discharge Date and Diagnosis - Problem List Patient Problems: Active and Suspected Problems (Last Reviewed 01/26/19 @ 17:02 by Bib Judge DO) Fall (Acute) Date of Admission: 02/03/19 Date of Discharge: 03/01/19 - Primary Discharge Diagnosis Active and Suspected Problems (Last Reviewed 01/26/19 @ 17:02 by Bib Judge DO) Fall (Acute) - Secondary Discharge Diagnosis Chronic Problems (Last Reviewed 01/26/19 @ 17:02 by Bib Judge DO) Weakness (Chronic) Chronic diastolic heart failure (Chronic) Lymphedema (Chronic) Diabetes mellitus (Chronic) GERD (gastroesophageal reflux disease) (Chronic) Hypothyroidism (Chronic) Lumbar spinal stenosis (Chronic) Osteoarthritis of knees, bilateral (Chronic) Depression (Chronic) Gout (Chronic) Neuropathic pain (Chronic) Low back pain (Chronic) Chronic venous insufficiency (Chronic) Dependent edema (Chronic) Debility (Chronic) Leg swelling (Chronic) EH (obstructive sleep apnea) (Chronic) Tricuspid valve insufficiency (Chronic) Venous stasis ulcer (Chronic) Obesity, morbid, BMI 40.0-49.9 (Chronic) Abnormal electrocardiogram (Chronic) Non-rheumatic tricuspid valve insufficiency (Chronic) Chronic diastolic (congestive) heart failure (Chronic) Hyperlipidemia (Chronic) Hypertension (Chronic) Chronic acquired lymphedema (Chronic) Hospital Course and Treatment Imaging Results: 02/03/19 14:52 Diet: Cardiac: Calorie-Controlled Food consistency:: Regular Liquid Consistency:: Regular/Thin Is pt able to select menu?: No How many daily calories?: 1999 calorie Labs (Last 48 Hours) 02/22/19 02/23/19 02/23/19 22:14 06:10 21:29 POC Glucose 132 H 94 146 H 02/24/19 06:05 POC Glucose 78 Operations: None, - - S/P open reduction internal fixation right bicondylar tibial plateau fracture Procedures: None Summary of Care Provided: The patient is a 73 year old Male with below past medical history hospitalized for right tib/fib fracture, underwent ORIF 01/29/[address] Rutledge, admitted to TCU with debility, here for rehabilitation, strengthening, prior to discharge home with spouse. Discharge to [facility], non-skilled. Patient Problems: Active and Suspected Problems (Last Reviewed 01/26/19 @ 17:02 by Bib Judge DO) Fall (Acute) - Physical Exam Vital Signs Temp Pulse Resp BP Pulse Ox 97.7 F L 62 16 152/76 H 95 02/23/19 16:00 02/24/19 05:16 02/23/19 22:00 02/24/19 05:16 02/23/19 22:00 Oxygen Delivery Method Room Air Weight: 118.614 kg Body Mass Index (BMI) 40.7 Finger Stick Blood Glucose 129 Intake and Output for Last 24 Hours 02/22/19 02/23/19 02/24/19 23:59 23:59 23:59 Intake Total 1540 / 1540 1060 / 1060 1080 / 1080 Balance 1540 / 1540 1060 / 1060 1080 / 1080 POC Glucose 02/24/19 02/23/19 06:05 21:29 POC Glucose 78 146 H Discharge Diet: No Restrictions Discharge Activity: Return to Normal Activity Weight Bearing Status: No weight bearing Keep extremity elevated above heart level: Right Leg Call your doctor if you observe: Fever of 101 or Higher, Inability to urinate, Inability to have a bowel movement, Chest pain, Uncontrolled pain Home Medications: Medications to take at Discharge Paroxetine HCl [Paxil] 40 mg PO DAILY 09/27/16 Potassium Chloride [K-Dur] 20 meq PO BID 09/27/16 Simvastatin [Zocor] 40 mg PO QHS 09/27/16 Sitagliptin Phosphate [Januvia] 100 mg PO DAILY 09/27/16 Torsemide [Demadex] 20 mg PO BID 09/27/16 traZODone [Desyrel] 50 mg PO QHS 09/27/16 Divalproex Sodium [Depakote] 500 mg PO BID 08/14/17 Allopurinol 100 mg PO DAILY 05/17/18 gabapentin 300 mg capsule 300 mg PO BID cap 07/17/18 Diclofenac Sodium 25 mg PO BID 08/16/18 Losartan Potassium 100 mg PO BID #60 tablet 09/09/18 Dulaglutide [Trulicity] 1.5 mg SQ QWEEK 01/26/19 Cholecalciferol (Vitamin D3) [Vitamin D3] 2,000 unit PO DAILY 02/03/19 Empagliflozin [Jardiance] 25 mg PO DAILY 02/03/19 Insulin Glargine [Lantus SoloStar Pen] 75 units SC QHS 02/03/19 Metoprolol(XL)Succ [Toprol Xl (Beta Romel)] 12.5 mg PO BID 02/03/19 Acetaminophen [Tylenol] 1,000 mg PO Q6H PRN PRN tablet 02/24/19 Aspirin 81 mg PO BID #0 02/24/19 Bisacodyl [Dulcolax] 10 mg PO DAILY PRN tablet 02/24/19 Levothyroxine [Synthroid] 112 mcg PO DAILY@0600 tablet 02/24/19 Melatonin 10 mg PO QHS tablet 02/24/19 Menthol/Lanolin/Calamine/Znox [Calmoseptine Ointment] 1 applic TOPICAL TID tube 02/24/19 Nystatin Powder [Mycostatin Powder] 1 applic TOPICAL 0600,2200 bottle 02/24/19 Polyethylene Glycol 3350 [Miralax] 17 gm PO DAILY PRN packet 02/24/19 Senna/Docusate Sodium [Senokot-S] 2 tablet PO BID tablet 02/24/19 Primary Care Physician: Gil Wheeler Chi, MD [Primary Care Provider] - Please follow up with your Primary Care Physician in: 1 week. Please Follow Up With: Dominick Rutledge MD/Esteban CHAVEZ When: call to schedule appt 4 wks from 02/14/19 Please Follow Up With: Dr. Atkins When: as needed after discharge Disposition: Asstd Living/Non-Skill [place] Minutes spent on discharge:: 35 Patient Condition:: Stable Medical Necessity - Tobacco Use Smoking Status: Former smoker Tobacco Use: Non-smoker Meaningful Use Info Meaningful Use Diagnoses (Choose all that apply): None applicable
[2019-02-24 15:59] VITALS: BP 116/62; PULSE 60; RESP 18; TEMP 36.9; O2SAT 98
--- NOTE | 2019-02-24 16:11 | CASEMGMT ---
Insurance: Continued stay denied with LCD 02/28/19 and D/C or financial liability 03/01/19. [facility] signed and faxed. Auth # [id number] ANIL Devries
--- NOTE | 2019-02-24 16:12 | CASEMGMT ---
Social Work SW met with pt and and explained that insurance denied continued stay. Both pt and upset with decision. SW explained appeals process. stating she is not going to appeal. Pt would like to return home however pt states she cannot care for him at this time and pt will need ECF placement. Pt would like pt to go to [facility]. Pt states she has worked on Medicaid application but wants to talk to [facility] directly. SW placed call to Toyin at [facility] and provided pt and information. Toyin to call pt to initiate Medicaid application. JENNIFER to follow for discharge planning. ANIL Devries
[2019-02-24 17:51] VITALS: BP 116/62; PULSE 60
[2019-02-24 20:51] LABS: Bedside Glucose 120 mg/dL (70-110)
[2019-02-24] MEDS: traZODone 50 MG Tablet PO (21:01)
[2019-02-24] MEDS: MELATONIN 10 MG TABLET PO (21:06)
[2019-02-24 23:23] VITALS: PULSE 68; RESP 18; O2SAT 98
[2019-02-25] MEDS: Menthol/Lanolin/Calamine/Znox 113 GM Tube 1 APPLIC TOPICAL ×3 (05:26→21:18)
[2019-02-25] MEDS: Nystatin Powder 15gm Bottle 1 APPLIC TOPICAL ×2 (05:26→21:18)
[2019-02-25 05:28] VITALS: BP 167/68; PULSE 54
[2019-02-25] MEDS: Divalproex (ER) 500 MG Tablet PO ×2 (05:28→17:24)
[2019-02-25] MEDS: Empagliflozin 25 MG Tablet PO (05:28)
[2019-02-25] MEDS: Allopurinol 100 MG Tablet PO (05:28)
[2019-02-25] MEDS: Furosemide 40 MG Tablet PO ×2 (05:28→17:24)
[2019-02-25] MEDS: Aspirin 81 MG TAB.CHEW PO ×2 (05:28→17:24)
[2019-02-25] MEDS: Metoprolol(XL)Succ 25 MG Tablet 12.5 MG PO ×2 (05:28→17:24)
[2019-02-25] MEDS: Levothyroxine 112 MCG Tablet PO (05:28)
[2019-02-25] MEDS: Gabapentin 300 MG Capsule PO ×2 (05:28→17:24)
[2019-02-25] MEDS: Losartan Potassium 100 MG Tablet PO ×2 (05:28→17:24)
[2019-02-25] MEDS: LINAGLIPTIN 5 MG TABLET PO (05:28)
[2019-02-25] MEDS: Paroxetine 20 MG Tablet 40 MG PO (05:29)
[2019-02-25] MEDS: Senna/Docusate Sodium 1 Tablet 2 TABLET PO ×2 (05:29→17:23)
[2019-02-25 06:46] LABS: Bedside Glucose 84 mg/dL (70-110)
[2019-02-25 13:00] VITALS: PULSE 63; RESP 18; O2SAT 97
--- NOTE | 2019-02-25 14:45 | CASEMGMT ---
Social Work JNENIFER spoke with pt who states she has spoke to [facility] and does not feel she will qualify for Medicaid and therefore she plans to take pt home at d/c on Sunday. JENNIFER spoke with pt regarding what pt is able to do for himself and how much care pt will need and pt ability to provide care. states understanding but also states she does not have finances to pay for ECF and pt wants to return home. SW encourage pt to submit application for Medicaid to [facility] for review. PT states she will submit application but decision has been made to take pt home. SW will continue to follow for d/c planning. ANIL Devries
[2019-02-25 16:00] VITALS: BP 173/76; PULSE 63; RESP 18; TEMP 36.6; O2SAT 93
[2019-02-25 17:24] VITALS: BP 173/76; PULSE 63
[2019-02-25 21:01] LABS: Bedside Glucose 126 mg/dL (70-110)
[2019-02-25] MEDS: traZODone 50 MG Tablet PO (21:20)
[2019-02-25] MEDS: MELATONIN 10 MG TABLET PO (21:21)
[2019-02-25] MEDS: Acetaminophen 500 MG Tablet 1000 MG PO (21:25)
[2019-02-26] MEDS: Empagliflozin 25 MG Tablet PO (05:04)
[2019-02-26] MEDS: Furosemide 40 MG Tablet PO ×2 (05:05→17:01)
[2019-02-26] MEDS: Aspirin 81 MG TAB.CHEW PO ×2 (05:05→17:00)
[2019-02-26] MEDS: Paroxetine 20 MG Tablet 40 MG PO (05:05)
[2019-02-26] MEDS: LINAGLIPTIN 5 MG TABLET PO (05:05)
[2019-02-26] MEDS: Levothyroxine 112 MCG Tablet PO (05:05)
[2019-02-26] MEDS: Divalproex (ER) 500 MG Tablet PO ×2 (05:05→17:00)
[2019-02-26] MEDS: Nystatin Powder 15gm Bottle 1 APPLIC TOPICAL ×2 (05:06→22:26)
[2019-02-26] MEDS: Senna/Docusate Sodium 1 Tablet 2 TABLET PO ×2 (05:06→17:01)
[2019-02-26] MEDS: Losartan Potassium 100 MG Tablet PO ×2 (05:06→17:00)
[2019-02-26] MEDS: Allopurinol 100 MG Tablet PO (05:06)
[2019-02-26] MEDS: Menthol/Lanolin/Calamine/Znox 113 GM Tube 1 APPLIC TOPICAL ×3 (05:06→22:25)
[2019-02-26 05:08] VITALS: BP 185/68; PULSE 61
[2019-02-26] MEDS: Metoprolol(XL)Succ 25 MG Tablet 12.5 MG PO ×2 (05:08→17:02)
[2019-02-26] MEDS: Gabapentin 300 MG Capsule PO ×2 (05:15→17:01)
[2019-02-26 06:30] VITALS: PULSE 60; RESP 17
[2019-02-26 06:51] LABS: Bedside Glucose 83 mg/dL (70-110)
--- NOTE | 2019-02-26 15:20 | CASEMGMT ---
Social Work Met with pt and in pt room. Pt confirms he plans to return home on Sunday. Pt does have a wheelchair with removable armrests but will need right elevating leg rest. Pt will also need hospital bed and sliding board. Family agreeable to use [employer] for DME needs. SW inquired about transportation home. Pt states he will go in 's care and his brother can help him out of care at home. PT does have a ramp into home. SW discussed with pt and pt physical ability to get in and out of care and offered to make arrangements with amb[facility]lette. Pt aware that this service is private pay. and pt to discuss and let SW know. PT is agreeable to home health services and would like to use [facility] PT/OT/CREATIVE PROJECT MANAGER. SW will continue to follow for home health services. ANLI Devries
[2019-02-26 15:35] VITALS: BP 153/74; PULSE 59; RESP 14; TEMP 36.4; O2SAT 99
[2019-02-26 17:02] VITALS: BP 153/74; PULSE 59
[2019-02-26 17:54] VITALS: PULSE 65; RESP 18; O2SAT 96
[2019-02-26 21:16] LABS: Bedside Glucose 131 mg/dL (70-110)
--- NOTE | 2019-02-26 21:37 | NURSING ---
Dr Wheeler notified of pt's blood sugars running lower in the morning. N.O. to decrease HS Lantus dose to 65 units.
[2019-02-26] MEDS: MELATONIN 10 MG TABLET PO (22:30)
[2019-02-26] MEDS: traZODone 50 MG Tablet PO (22:30)
[2019-02-27] MEDS: Furosemide 40 MG Tablet PO ×2 (04:48→17:12)
[2019-02-27] MEDS: Losartan Potassium 100 MG Tablet PO ×2 (04:48→17:12)
[2019-02-27] MEDS: Allopurinol 100 MG Tablet PO (04:48)
[2019-02-27] MEDS: Aspirin 81 MG TAB.CHEW PO ×2 (04:48→17:12)
[2019-02-27] MEDS: Divalproex (ER) 500 MG Tablet PO ×2 (04:48→17:12)
[2019-02-27 04:49] VITALS: BP 139/85; PULSE 66
[2019-02-27] MEDS: Metoprolol(XL)Succ 25 MG Tablet 12.5 MG PO ×2 (04:49→17:13)
[2019-02-27] MEDS: Gabapentin 300 MG Capsule PO ×2 (04:49→17:12)
[2019-02-27] MEDS: Paroxetine 20 MG Tablet 40 MG PO (04:50)
[2019-02-27] MEDS: Levothyroxine 112 MCG Tablet PO (04:51)
[2019-02-27] MEDS: LINAGLIPTIN 5 MG TABLET PO (04:51)
[2019-02-27] MEDS: Menthol/Lanolin/Calamine/Znox 113 GM Tube 1 APPLIC TOPICAL ×3 (04:52→22:42)
[2019-02-27] MEDS: Empagliflozin 25 MG Tablet PO (04:52)
[2019-02-27] MEDS: Nystatin Powder 15gm Bottle 1 APPLIC TOPICAL ×2 (04:53→22:42)
[2019-02-27] MEDS: Senna/Docusate Sodium 1 Tablet 2 TABLET PO ×2 (04:53→17:12)
[2019-02-27 06:56] LABS: Bedside Glucose 94 mg/dL (70-110)
--- NOTE | 2019-02-27 12:12 | MDS.RN ---
Information for the mds was obtained from review of the clinical record, interview of resident, staff, and direct observation of resident's care.
--- NOTE | 2019-02-27 14:00 | CASEMGMT ---
Social Work Phone call to [facility] to order DME. Pt wheelchair is not a brand that is supplied by [employer] and [employer] does not have the needed sliding board in stock. Phone call to [employer] and they have provided services previously to pt through [facility] and are able to provide and deliver to pt home needed medical equipment. JENNIFER spoke with pt and she states pt will need to be transported home via [facility]. JENNIFER will continue to follow for d/c planning. ANIL Devries
[2019-02-27 15:43] VITALS: BP 158/66; PULSE 60; RESP 16; TEMP 36.8; O2SAT 94
--- NOTE | 2019-02-27 15:53 | CASEMGMT ---
Insurance: Pt did appeal denial decision. Call from [employer] at this time and appeal was won by pt and denial overturned. Pt will continue in TCU at this time. AUth# [id number] SW met with pt and who are aware of decision. Phone call to [employer] [facility] and KIERA left placing DME on hold at this time. ANIL Devries
[2019-02-27 17:13] VITALS: BP 158/66; PULSE 60
--- NOTE | 2019-02-27 17:15 | CASEMGMT ---
Social Work Pt appealed discharge and won appeal. Will continue with stay in TCU at this time. Phone call to [employer] [facility] and ordered equipment put on hold. ANIL Devries
[2019-02-27 22:00] LABS: Bedside Glucose 150 mg/dL (70-110)
[2019-02-27] MEDS: Acetaminophen 500 MG Tablet 1000 MG PO (22:40)
[2019-02-27] MEDS: traZODone 50 MG Tablet PO (22:41)
[2019-02-27] MEDS: MELATONIN 10 MG TABLET PO (22:42)
[2019-02-27 22:45] VITALS: PULSE 62; RESP 18
[2019-02-28] MEDS: Menthol/Lanolin/Calamine/Znox 113 GM Tube 1 APPLIC TOPICAL ×3 (05:20→23:18)
[2019-02-28] MEDS: Nystatin Powder 15gm Bottle 1 APPLIC TOPICAL ×2 (05:21→23:18)
[2019-02-28] MEDS: Gabapentin 300 MG Capsule PO ×2 (05:29→17:50)
[2019-02-28] MEDS: Furosemide 40 MG Tablet PO ×2 (05:29→17:49)
[2019-02-28] MEDS: Empagliflozin 25 MG Tablet PO (05:29)
[2019-02-28] MEDS: Divalproex (ER) 500 MG Tablet PO ×2 (05:29→17:49)
[2019-02-28] MEDS: Aspirin 81 MG TAB.CHEW PO ×2 (05:29→17:49)
[2019-02-28] MEDS: Losartan Potassium 100 MG Tablet PO ×2 (05:29→17:49)
[2019-02-28] MEDS: Paroxetine 20 MG Tablet 40 MG PO (05:29)
[2019-02-28 05:30] VITALS: BP 143/78; PULSE 62
[2019-02-28] MEDS: Senna/Docusate Sodium 1 Tablet 2 TABLET PO ×2 (05:30→17:50)
[2019-02-28] MEDS: Metoprolol(XL)Succ 25 MG Tablet 12.5 MG PO ×2 (05:30→17:50)
[2019-02-28] MEDS: Levothyroxine 112 MCG Tablet PO (05:30)
[2019-02-28] MEDS: LINAGLIPTIN 5 MG TABLET PO (05:30)
[2019-02-28] MEDS: Allopurinol 100 MG Tablet PO (05:31)
[2019-02-28 06:40] LABS: Bedside Glucose 93 mg/dL (70-110)
[2019-02-28] MEDS: Acetaminophen 500 MG Tablet 1000 MG PO (11:29)
[2019-02-28] MEDS: DULAGLUTIDE 1.5 MG/0.5 ML PEN.INJCTR SQ (11:42)
[2019-02-28 15:48] VITALS: BP 145/64; PULSE 63; RESP 24; TEMP 36.8; O2SAT 94
--- NOTE | 2019-02-28 15:55 | CASEMGMT ---
Insurance: Received notification fax from insurance at 1315 on this date that clinical update is due today. Clinical updates faxed at this time. Pt and notified that update was requested and submitted this afternoon. auth# [id number] ANIL Devries
[2019-02-28] MEDS: HYDROmorphone 2 MG TABLET PO (16:02)
[2019-02-28 17:50] VITALS: PULSE 83
--- NOTE | 2019-02-28 19:43 | RAD_ITS ---
STUDY: X-RAY CHEST REASON FOR EXAM: Male, 73 years old. Fever TECHNIQUE: Single AP portable view of the chest. COMPARISON: August 16, 2018 FINDINGS: Lungs are underexpanded. There is a plantar mild increase increase in interstitial markings. There is a minimal appearance of groundglass opacity in the right upper lobe similar to the prior study. There is a stable calcific density in the left suprahilar region measuring 6.6 mm. There is no demonstrated pleural abnormality. There is mild cardiac enlargement. The persistent prominent appearance of the right-sided paramediastinal soft tissues allowing for positioning and likely represents vascular ectasia.. Normal visualized pulmonary arteries. There is atherosclerotic tortuosity of the aortic arch and descending thoracic aorta. There are diffuse degenerative changes of the visualized thoracic spine. Normal visualized ribs, clavicles, and shoulders. There is no demonstrated abnormality of the visualized soft tissue structures of the upper abdomen. RAD/Chest 1 View IMPRESSION: Underexpansion of the lungs. Relatively stable chest. Minimal central edema. Electronically Signed: Amaya Oshea MD at 8:25 EDT Tel , Service support ,
--- NOTE | 2019-02-28 20:10 | RAD_ITS ---
STUDY: X-RAY - ABDOMEN/PELVIS REASON FOR EXAM: Male, 73 years old. Femur TECHNIQUE: Two AP supine views of the abdomen and pelvis. COMPARISON: None. FINDINGS: There is a within the small bowel and colon, the entirety of the soft tissue is not imaged due to patient's body habitus. There is no obstructive pattern or significant amount of retained fecal material. There is no demonstrated free abdominal air. Postsurgical changes right inguinal fossa and total right hip arthroplasty. There are diffuse degenerative changes of the visualized lumbar spine. RAD/Abdomen Single View IMPRESSION: Air within small and large bowel, possible ileus. No evidence of obstruction on limited examination. Other nonacute findings as outlined above. Electronically Signed: Michelle Leon MD at 6:03 EDT , Service support ,
[2019-02-28 20:55] LABS: Bedside Glucose 149 mg/dL (70-110)
[2019-02-28 21:20] LABS: Probe Check PASS; Staph aureus DNA By PCR POSITIVE (Negative)
[2019-02-28 21:21] LABS: M R Staph aureus DNA By PCR POSITIVE (Negative)
[2019-02-28 21:25] LABS: Absolute Lymphocyte Count 2.23 X10^3/ul (0.83-4.51); Absolute Neutrophil Count 12.9 X10^3/uL (2.0-7.7); Basophil# 0.03 X10^3/uL; Basophil% 0.2 % (0-1); Eosinophil# 0.03 X10^3/uL; Eosinophils% 0.2 % (0-5); Hematocrit 38.2 % (40-54); Hemoglobin 12.4 g/dl (13.0-16.5); Lymphocyte # 2.23 X10^3/ul (4.0); Lymphocyte % 12.9 % (19-41); Mean Corp Hgb Conc 32.5 g/gl (32-36); Mean Corpuscular Volume 92.5 fL (80-94); Mean Platelet Vol. 9.9 fl (6.2-12.0); Monocyte# 2.11 X10^3/uL; Monocyte% 12.2 % (0-10); Neutrophil # 12.87 X10^3/uL (2.7-7.7); Neutrophil % 74.3 % (47-70); Platelet Count 302 K/mm3 (150-450); RBC Distribution Width CV 15.4 % (11.6-14.6); RBC Distribution Width SD 52.5 fl (35.1-43.9); Red Blood Count 4.13 M/mm3 (4.6-6.2); White Blood Count 17.3 K/mm3 (4.4-11.0)
[2019-02-28 21:26] LABS: Differential Indicated SCAN CRITERIA MET; POSITIVE COUNT NO; POSITIVE DIFFERENTIAL YES; POSITIVE MORPHOLOGY NO
[2019-02-28 21:40] LABS: Anion Gap 6 (5-15); BUN 11 mg/dL (7-18); BUN/Creat Ratio 14.2 RATIO (10-20); Calcium,Total 8.4 mg/dL (8.5-10.1); Chloride 102 mmol/L (98-107); Creatinine, Serum 0.77 mg/dL (0.70-1.30); EST Glomerular Filtration Rate 105 mL/min (>60); Est Glom Filt Rate - Afr Amer 127 mL/min (>60); Estimated Creatinine Clearance 63.65 ml/min; Glucose 135 mg/dL (74-106); Potassium 3.5 mmol/L (3.5-5.1); Sodium Level 137 mmol/L (136-145)
[2019-02-28] MEDS: 0.9% NaCl Peripheral Flush Adult/Peds IV (21:49)
[2019-02-28 21:53] LABS: Bacteria 0 SEEN /hpf (None Seen); Mucous, Urine 0 SEEN /hpf (<or=2+); White Blood Cells 0 SEEN /hpf (0-5)
[2019-02-28 21:56] LABS: Differential Comment SCANNED
[2019-02-28 22:05] LABS: Color, Urine Yellow (Yellow); Glucose, Dipstick 1000 mg/dl (Normal); Ketone-Dipstick 50 mg/dl (Negative); Leukocyte Esterase-Dipstick Negative /ul (Negative); Nitrite-Dipstick Negative (Negative); Occult Blood-Urine Negative /ul (Negative); Protein-Dipstick Negative (Negative); Urine Bilirubin Dipstick Negative (Negative); Urine Clarity Clear (Clear); Urine Urobilinogen Normal (Normal)
--- NOTE | 2019-02-28 22:07 | NURSING ---
Dr. Wheeler updated on +MRSA and WBC. Continue with antibiotics.
[2019-02-28 22:22] LABS: Red Blood Cells-Urine 0-5 SEEN /hpf (0-5); Squamous Epithelial Cells - UA 0-5 SEEN /hpf (0-5)
--- NOTE | 2019-03-01 02:37 | PCM.RX.CS ---
Consult Pharmacy has been consulted to manage selected antiobiotic: Vancomycin Type of Consult: New start Suspected Infection: Other Prior Doses of Antibiotics Received/Current Regimen: none Labs: Sodium 137 mmol/L (136-145) 02/28/19 20:55 Potassium 3.5 mmol/L (3.5-5.1) 02/28/19 20:55 Chloride 102 mmol/L (98-107) 02/28/19 20:55 Carbon Dioxide 29.0 mmol/L (21.0-32.0) 02/28/19 20:55 Anion Gap 6 (5-15) 02/28/19 20:55 BUN 11 mg/dL (7-18) 02/28/19 20:55 Creatinine 0.77 mg/dL (0.70-1.30) 02/28/19 20:55 Est GFR (MDRD) Af Amer 127 mL/min (>60) 02/28/19 20:55 Est GFR (MDRD) Non-Af 105 mL/min (>60) 02/28/19 20:55 BUN/Creatinine Ratio 14.2 RATIO (10-20) 02/28/19 20:55 Glucose 135 mg/dL (74-106) H 02/28/19 20:55 Weight used for dosin kg Estimated Creatinine Clearance: 78ML/MIN Goal Trough: 15-20 mcg/mL Pharmacy Plan for Drug Dosing: PLAN/RECOMMENDATIONS 1. Vancomycin loading dose x1 2000mg IV x1 on 02/28/19 @2149 2. Vancomycin 1750mg IV Q12hrs to start 03/01/19 @1000 3. Trough scheduled 03/02/19 @0930 4. Pharmacy Service will continue to monitor and adjust dosing as required.
[2019-03-01] MEDS: Allopurinol 100 MG Tablet PO (05:25)
[2019-03-01 05:26] VITALS: BP 159/69; PULSE 80
[2019-03-01] MEDS: LINAGLIPTIN 5 MG TABLET PO (05:26)
[2019-03-01] MEDS: Aspirin 81 MG TAB.CHEW PO ×2 (05:26→18:15)
[2019-03-01] MEDS: Furosemide 40 MG Tablet PO ×2 (05:26→18:15)
[2019-03-01] MEDS: Losartan Potassium 100 MG Tablet PO ×2 (05:26→18:15)
[2019-03-01] MEDS: Gabapentin 300 MG Capsule PO ×2 (05:26→18:15)
[2019-03-01] MEDS: Levothyroxine 112 MCG Tablet PO (05:26)
[2019-03-01] MEDS: Senna/Docusate Sodium 1 Tablet 2 TABLET PO ×2 (05:26→18:15)
[2019-03-01] MEDS: Metoprolol(XL)Succ 25 MG Tablet 12.5 MG PO ×2 (05:26→18:14)
[2019-03-01] MEDS: Nystatin Powder 15gm Bottle 1 APPLIC TOPICAL ×2 (05:28→21:55)
[2019-03-01] MEDS: Menthol/Lanolin/Calamine/Znox 113 GM Tube 1 APPLIC TOPICAL ×3 (05:29→21:55)
[2019-03-01] MEDS: Empagliflozin 25 MG Tablet PO (05:30)
[2019-03-01] MEDS: Paroxetine 20 MG Tablet 40 MG PO (05:32)
--- NOTE | 2019-03-01 06:15 | NURSING ---
All care provide in pt room remains in precaution for MRSA
[2019-03-01 06:45] LABS: Bedside Glucose 114 mg/dL (70-110)
--- NOTE | 2019-03-01 09:44 | NURSING ---
All care provide in pt room remains in precaution for MRSA
[2019-03-01 16:00] VITALS: BP 135/59; PULSE 55; RESP 16; TEMP 36.6; O2SAT 95
[2019-03-01] MEDS: HYDROmorphone 2 MG TABLET PO (16:06)
[2019-03-01 18:14] VITALS: BP 135/59; PULSE 55
[2019-03-01 21:10] LABS: Bedside Glucose 195 mg/dL (70-110)
[2019-03-01] MEDS: 0.9% NaCl Peripheral Flush Adult/Peds IV (21:45)
[2019-03-01] MEDS: MELATONIN 10 MG TABLET PO (21:45)
[2019-03-01] MEDS: 0.9% NaCl IVPB Med Flush (250 mL) 15 ML IV (21:45)
[2019-03-01] MEDS: traZODone 50 MG Tablet PO (21:45)
--- NOTE | 2019-03-02 02:22 | NURSING ---
All care provided in room d/t pt remains in precautions.
[2019-03-02 05:06] VITALS: BP 141/69; PULSE 62
[2019-03-02] MEDS: Levothyroxine 112 MCG Tablet PO (05:06)
[2019-03-02] MEDS: Metoprolol(XL)Succ 25 MG Tablet 12.5 MG PO ×2 (05:06→18:09)
[2019-03-02] MEDS: Paroxetine 20 MG Tablet 40 MG PO (05:06)
[2019-03-02] MEDS: Aspirin 81 MG TAB.CHEW PO ×2 (05:06→18:08)
[2019-03-02] MEDS: Gabapentin 300 MG Capsule PO ×2 (05:06→18:08)
[2019-03-02] MEDS: LINAGLIPTIN 5 MG TABLET PO (05:06)
[2019-03-02] MEDS: Senna/Docusate Sodium 1 Tablet 2 TABLET PO ×2 (05:06→18:08)
[2019-03-02] MEDS: Allopurinol 100 MG Tablet PO (05:06)
[2019-03-02] MEDS: Empagliflozin 25 MG Tablet PO (05:07)
[2019-03-02] MEDS: Furosemide 40 MG Tablet PO ×2 (05:07→18:08)
[2019-03-02] MEDS: Losartan Potassium 100 MG Tablet PO ×2 (05:07→18:08)
[2019-03-02] MEDS: HYDROmorphone 2 MG TABLET PO ×2 (05:10→20:01)
[2019-03-02] MEDS: Nystatin Powder 15gm Bottle 1 APPLIC TOPICAL ×2 (05:19→21:51)
[2019-03-02] MEDS: Menthol/Lanolin/Calamine/Znox 113 GM Tube 1 APPLIC TOPICAL ×3 (05:20→21:51)
[2019-03-02 07:05] LABS: Bedside Glucose 121 mg/dL (70-110)
[2019-03-02 09:54] LABS: Vancomycin, Trough Level 20.3 ug/mL (5.0-15.0)
--- NOTE | 2019-03-02 11:41 | NURSING ---
REMOVED SALINE LOCK FROM LT FA D/T REDNESS/WARMTH AT SITE. WARM COMPRESS APPLIED
[2019-03-02 16:00] VITALS: BP 144/69; PULSE 56; RESP 18; TEMP 36.4; O2SAT 95
[2019-03-02 18:09] VITALS: BP 144/69; PULSE 56
--- NOTE | 2019-03-02 18:35 | PCM.RX.CS ---
Consult Pharmacy has been consulted to manage selected antiobiotic: Vancomycin Type of Consult: Follow-up Suspected Infection: Other Prior Doses of Antibiotics Received/Current Regimen: Vancomycin 1750mg IV q12h x2 doses Labs: Sodium 137 mmol/L (136-145) 02/28/19 20:55 Potassium 3.5 mmol/L (3.5-5.1) 02/28/19 20:55 Chloride 102 mmol/L (98-107) 02/28/19 20:55 Carbon Dioxide 29.0 mmol/L (21.0-32.0) 02/28/19 20:55 Anion Gap 6 (5-15) 02/28/19 20:55 BUN 11 mg/dL (7-18) 02/28/19 20:55 Creatinine 0.77 mg/dL (0.70-1.30) 02/28/19 20:55 Est GFR (MDRD) Af Amer 127 mL/min (>60) 02/28/19 20:55 Est GFR (MDRD) Non-Af 105 mL/min (>60) 02/28/19 20:55 BUN/Creatinine Ratio 14.2 RATIO (10-20) 02/28/19 20:55 Glucose 135 mg/dL (74-106) H 02/28/19 20:55 Vancomycin Trough 20.3 ug/mL (5.0-15.0) H 03/02/19 09:20 Microbiology: Microbiology 02/28/19 19:22 Wound - No Site/Description Given Gram Stain - Final 02/28/19 19:22 Wound - No Site/Description Given Wound Culture - Preliminary Staphylococcus aureus 02/28/19 21:05 Blood Culture (Wb) - Left Wrist Blood Culture - Preliminary Staphylococcus aureus 02/28/19 20:55 Blood Culture (Wb) - Anticubital Left Blood Culture - Preliminary Staphylococcus aureus Weight used for dosin kg Estimated Creatinine Clearance: 64ml/min Goal Trough: 15-20 mcg/mL Pharmacy Plan for Drug Dosin73 year old male with a bmi of 39. Pt's goal trough is 15-20. Pt's reported trough on 03/02/19 was 20.3, which is considered within the goal range. Pt will be kept on the current dose of 1750mg q12h, however another trough will be drawn sooner than the protocol suggests due to the pt's bmi. Once the fat is saturated, the body can potentially accumulate Vancomycin quicker. A trough will be drawn 03/04/19 at 0930. Pharmacy Service will continue to monitor and adjust dosing as required. Follow-Up Labs: Trough Vancomycin - 03/04/19 at 0930
[2019-03-02] MEDS: traZODone 50 MG Tablet PO (21:41)
[2019-03-02] MEDS: MELATONIN 10 MG TABLET PO (21:41)
[2019-03-02] MEDS: 0.9% NaCl Peripheral Flush Adult/Peds IV (21:43)
[2019-03-02 22:01] LABS: Bedside Glucose 128 mg/dL (70-110)
[2019-03-03 05:00] VITALS: O2SAT 97
[2019-03-03] MEDS: Senna/Docusate Sodium 1 Tablet 2 TABLET PO ×2 (05:05→18:20)
[2019-03-03] MEDS: Aspirin 81 MG TAB.CHEW PO (05:05)
[2019-03-03] MEDS: Allopurinol 100 MG Tablet PO (05:05)
[2019-03-03] MEDS: Levothyroxine 112 MCG Tablet PO (05:05)
[2019-03-03 05:06] VITALS: BP 141/70; PULSE 64
[2019-03-03] MEDS: Metoprolol(XL)Succ 25 MG Tablet 12.5 MG PO ×2 (05:06→18:20)
[2019-03-03] MEDS: Paroxetine 20 MG Tablet 40 MG PO (05:06)
[2019-03-03] MEDS: Losartan Potassium 100 MG Tablet PO ×2 (05:06→18:20)
[2019-03-03] MEDS: Gabapentin 300 MG Capsule PO ×2 (05:06→18:20)
[2019-03-03] MEDS: LINAGLIPTIN 5 MG TABLET PO (05:06)
[2019-03-03] MEDS: Empagliflozin 25 MG Tablet PO (05:06)
[2019-03-03] MEDS: Furosemide 40 MG Tablet PO ×2 (05:06→18:20)
[2019-03-03] MEDS: Menthol/Lanolin/Calamine/Znox 113 GM Tube 1 APPLIC TOPICAL ×3 (05:11→22:19)
[2019-03-03] MEDS: Nystatin Powder 15gm Bottle 1 APPLIC TOPICAL ×2 (05:11→22:19)
[2019-03-03 06:41] LABS: Bedside Glucose 112 mg/dL (70-110)
--- NOTE | 2019-03-03 06:46 | NURSING ---
All care provided in room this shift d/t pt remains in precautions.
[2019-03-03] MEDS: 0.9% NaCl Peripheral Flush Adult/Peds IV ×3 (10:52→22:16)
--- NOTE | 2019-03-03 11:11 | NURSING ---
Addendum entered by Melinda Ontiveros 03/03/19 12:17: Elen, from Dr. Rutledge's office called back. Okay to consult wound nurse, please also consult Dr. Fernando for wound care per Dr. Rutledge. Original Note: Message left with Dr. Rutledge's clinical environmental emergencies assistant regarding wound infection and initiation of antibiotics.
[2019-03-03 13:05] LABS: Pathologist Review Reviewed
--- NOTE | 2019-03-03 13:07 | CASEMGMT ---
Insurance: Continued stay approved with update due 03/10/19. Auth# [id number] ANIL Devries
--- NOTE | 2019-03-03 13:52 | NURSING ---
IV site reddened, pt c/o tenderness, vanco stopped and iv discontinued, order from Dr. Pradhan received for midline placement. drum sander offbearer called and notified, they will call back with ETA.
--- NOTE | 2019-03-03 14:25 | NURSING ---
Dr. Oquendo reviewed blood cultures, new order to consult ID and insert midline for IVATB therapy.
--- NOTE | 2019-03-03 14:31 | PCM.TCUNOT ---
Subjective: follow up for weakness, debility and functional decline following right knee surgery Reports urinary prostatic symptoms of frequency, urgency with urge incontinence, post micturition dribbling and incomplete voiding symptoms Blood cx positive for MRSA. Already on IV Vancomycin Denies fever and none recorded. Occasional sweats though and malaise and weakness Vitals/I&O's: Vital Signs Temp Pulse Resp BP Pulse Ox 97.6 F L 64 18 141/70 H 97 03/02/19 16:00 03/03/19 05:06 03/02/19 16:00 03/03/19 05:06 03/03/19 05:00 Oxygen Delivery Method Room Air Weight: 118.614 kg Body Mass Index (BMI) 40.7 Finger Stick Blood Glucose 129 Intake and Output for Last 24 Hours 03/01/19 03/02/19 03/03/19 23:59 23:59 23:59 Intake Total 1080 / 1080 1320 / 1320 360 / 360 Output Total 50 / 50 Balance 1080 / 1080 1320 / 1320 310 / 310 Microbiology Past 72 Hours 02/28/19 19:22 Wound - No Site/Description Given Gram Stain - Final 02/28/19 19:22 Wound - No Site/Description Given Wound Culture - Final Meth. resistant Staph. aureus 02/28/19 19:22 Wound - No Site/Description Given Anaerobic Culture - Preliminary Checking for anaerobes, further studies to follow. 02/28/19 20:55 Blood Culture (Wb) - Anticubital Left Blood Culture - Preliminary Meth. resistant Staph. aureus 02/28/19 21:05 Blood Culture (Wb) - Left Wrist Blood Culture - Final Meth. resistant Staph. aureus Laboratory Results 02/28/19 20:55: Diff Path Review Reviewed 03/02/19 21:49: POC Glucose 128 H 03/03/19 06:28: POC Glucose 112 H Past Medical History Past Medical History (Chronic Problems): Chronic Problems (Last Reviewed 01/26/19 @ 17:02 by Bib Judge DO) Weakness (Chronic) Chronic diastolic heart failure (Chronic) Lymphedema (Chronic) Diabetes mellitus (Chronic) GERD (gastroesophageal reflux disease) (Chronic) Hypothyroidism (Chronic) Lumbar spinal stenosis (Chronic) Osteoarthritis of knees, bilateral (Chronic) Depression (Chronic) Gout (Chronic) Neuropathic pain (Chronic) Low back pain (Chronic) Chronic venous insufficiency (Chronic) Dependent edema (Chronic) Debility (Chronic) Leg swelling (Chronic) EH (obstructive sleep apnea) (Chronic) Tricuspid valve insufficiency (Chronic) Venous stasis ulcer (Chronic) Obesity, morbid, BMI 40.0-49.9 (Chronic) Abnormal electrocardiogram (Chronic) Non-rheumatic tricuspid valve insufficiency (Chronic) Chronic diastolic (congestive) heart failure (Chronic) Hyperlipidemia (Chronic) Hypertension (Chronic) Chronic acquired lymphedema (Chronic) Medical History: Medical History (Last Reviewed 01/26/19 @ 17:02 by Bib Judge DO) Non-rheumatic tricuspid valve insufficiency (Chronic) I36.1 Chronic diastolic (congestive) heart failure (Chronic) I50.32 Hyperlipidemia (Chronic) E78.5 Hypertension (Chronic) I10 Asbestos exposure Z77.090 GERD (gastroesophageal reflux disease) K21.9 Hypothyroidism E03.9 Obstructive sleep apnea G47.33 Type 2 diabetes mellitus E11.9 Venous stasis dermatitis of right lower extremity (Inactive) I83.11 Allergies cocaine Allergy (Verified 09/11/18 13:52) Unknown atorvastatin calcium [From Lipitor] Adverse Reaction (Verified 09/11/18 13:52) Pain in joints haloperidol [From Haldol] Adverse Reaction (Verified 09/11/18 13:52) Other WENT CRAZY morphine Adverse Reaction (Verified 09/11/18 13:52) Other extremely aggitated oxycodone [From OxyIR] Adverse Reaction (Verified 09/11/18 13:52) Pain in joints extremely aggitated prednisone Adverse Reaction (Verified 09/11/18 13:52) ANXIOUS, INSOMNIA STERIODS Adverse Reaction (Uncoded 08/16/18 02:59) Other ANXIETY INSOMNIA Home Medications: Ambulatory Orders Medication Instructions Recorded Paroxetine HCl [Paxil] 40 mg PO DAILY 09/27/16 Potassium Chloride [K-Dur] 20 meq PO BID 09/27/16 Simvastatin [Zocor] 40 mg PO QHS 09/27/16 Sitagliptin Phosphate [Januvia] 100 mg PO DAILY 09/27/16 Torsemide [Demadex] 20 mg PO BID 09/27/16 traZODone [Desyrel] 50 mg PO QHS 09/27/16 Divalproex Sodium [Depakote] 500 mg PO BID 08/14/17 Allopurinol 100 mg PO DAILY 05/17/18 gabapentin 300 mg capsule 300 mg PO BID cap 07/17/18 Diclofenac Sodium 25 mg PO BID 08/16/18 Losartan Potassium 100 mg PO BID #60 tablet 09/09/18 Dulaglutide [Trulicity] 1.5 mg SQ QWEEK 01/26/19 Cholecalciferol (Vitamin D3) 2,000 unit PO DAILY 02/03/19 [Vitamin D3] Empagliflozin [Jardiance] 25 mg PO DAILY 02/03/19 Insulin Glargine [Lantus SoloStar 75 units SC QHS 02/03/19 Pen] Metoprolol(XL)Succ [Toprol Xl 12.5 mg PO BID 02/03/19 (Beta Romel)] Acetaminophen [Tylenol] 1,000 mg PO Q6H PRN PRN tablet 02/24/19 Aspirin 81 mg PO BID #0 02/24/19 Bisacodyl [Dulcolax] 10 mg PO DAILY PRN tablet 02/24/19 Levothyroxine [Synthroid] 112 mcg PO DAILY@0600 tablet 02/24/19 Melatonin 10 mg PO QHS tablet 02/24/19 Menthol/Lanolin/Calamine/Znox 1 applic TOPICAL TID tube 02/24/19 [Calmoseptine Ointment] Nystatin Powder [Mycostatin Powder] 1 applic TOPICAL 0600,2200 bottle 02/24/19 Polyethylene Glycol 3350 [Miralax] 17 gm PO DAILY PRN packet 02/24/19 Senna/Docusate Sodium [Senokot-S] 2 tablet PO BID tablet 02/24/19 Surgical History: Surgical History (Last Reviewed 01/26/19 @ 17:02 by Bib Judge DO) Cochlear implant in place Z96.21 H/O shoulder surgery Z98.890 History of left heart catheterization Onset Date: 08/15/17 Z98.890 non obstructive coronary arteries History of right knee joint replacement Z96.651 Hx of cholecystectomy Z90.49 Previous back surgery Z98.890 Surgical History: cholecystectomy, total hip arthroplasty - Right, total knee arthroplasty - Right., - - Left shoulder surgery with rotator cuff repair; back surgery x 4; left cochlear implant. Psychiatric History: Depression Lives: Spouse/ Significant Other Smoking Status: Former smoker Tobacco Use: Non-smoker Alcohol: None Drugs: None - *Family History Maternal Family History: Family History (Last Reviewed 01/26/19 @ 17:02 by Bib Judge DO) Mother Hypertension Father Hypertension History Items: Dementia, Hypertension Paternal Family History: Family History (Last Reviewed 01/26/19 @ 17:02 by Bib Judge DO) Mother Hypertension Father Hypertension History Items: Heart Disease - decased age 73, Hypertension Patient Problems: Active and Suspected Problems (Last Reviewed 01/26/19 @ 17:02 by Bib Judge DO) Fall (Acute) - Physical Exam General: Alert, Oriented x3, Cooperative, No apparent distress HEENT: Atraumatic Oral: Moist Mucosa Neck: Supple Lungs: Clear to auscultation Cardiovascular: Regular rate, Regular Rhythm, Normal S1, Normal S2, No murmurs Abdomen: Obese Musculoskeletal: - - dressing and splinting of the right knee noted Neurological: Cranial nerves II-XII grossly intact Psych/Mental Status: Normal Affect, Appropriate Vital Signs Temp Pulse Resp BP Pulse Ox 97.6 F L 64 18 141/70 H 97 03/02/19 16:00 03/03/19 05:06 03/02/19 16:00 03/03/19 05:06 03/03/19 05:00 Oxygen Delivery Method Room Air Weight: 118.614 kg Body Mass Index (BMI) 40.7 Finger Stick Blood Glucose 129 Intake and Output for Last 24 Hours 03/01/19 03/02/19 03/03/19 23:59 23:59 23:59 Intake Total 1080 / 1080 1320 / 1320 360 / 360 Output Total 50 / 50 Balance 1080 / 1080 1320 / 1320 310 / 310 Microbiology Past 72 Hours 02/28/19 19:22 Gram Stain - Final Wound - No Site/Description Given Wound Culture - Final Meth. resistant Staph. aureus Anaerobic Culture - Preliminary Checking for anaerobes, further studies to follow. 02/28/19 20:55 Blood Culture - Preliminary Blood Culture (Wb) - Anticubital Left Meth. resistant Staph. aureus 02/28/19 21:05 Blood Culture - Final Blood Culture (Wb) - Left Wrist Meth. resistant Staph. aureus Laboratory Tests Past 24 Hrs 02/28/19 20:[address] Review Reviewed POC Glucose 03/03/19 03/02/19 06:28 21:49 POC Glucose 112 H 128 H Assessment/Plan All Active Problems (Last Reviewed 01/26/19 @ 17:02 by Bib Judge DO) Fall (Acute) Fracture of right tibia and fibula (Acute) Knee pain, right (Acute) Preop cardiovascular exam (Acute) Skin tear of right lower leg without complication (Acute) Cellulitis (Resolved) Hypokalemia (Resolved) 1. s/p right knee ORIF for Tib/fib plateau fracture. Continue with weight bearing as directed and tolerated and PT/OT 2. Weakness and debility and functional decline. PT/OT as above 3. Prostatism with urge urinary incontinence most distressing to patient. Will start on Flomax and Finasteride. Referral to urologist on discharge. 4. MRSA bacteremia. Possible source from wound?. Already on IV Vancomycin. Ok to consult Infectious disease. Will defer decision to do echocardiogram to ID. Avoid PICC given bacteremia. Mid-line preferable in this regard. 5. T2DM. Well controlled on current regimen. 6. DVT prophylaxis. Will change to Lovenox given increased risk of immobility and obesity.
--- NOTE | 2019-03-03 15:23 | NURSING ---
Spoke to Pieter in pharmacy regarding abx, per him give vanco at 2200, for Merrem, hold 1400 dose and give 2200 dose as early as 1830.
--- NOTE | 2019-03-03 15:23 | NURSING ---
wound photo: right lower leg
[2019-03-03 16:00] VITALS: BP 173/72; PULSE 54; RESP 18; TEMP 36.8; O2SAT 97
--- NOTE | 2019-03-03 16:01 | NURSING ---
Message left with Dr. Fernando regarding consult for patient.
[2019-03-03 18:20] VITALS: BP 173/72; PULSE 54
[2019-03-03] MEDS: Tamsulosin HCl 0.4 MG Capsule PO (18:20)
[2019-03-03 21:26] LABS: Bedside Glucose 169 mg/dL (70-110)
[2019-03-03] MEDS: traZODone 50 MG Tablet PO (22:11)
[2019-03-03] MEDS: MELATONIN 10 MG TABLET PO (22:11)
[2019-03-04] MEDS: Gabapentin 300 MG Capsule PO ×2 (05:06→17:00)
[2019-03-04] MEDS: Nystatin Powder 15gm Bottle 1 APPLIC TOPICAL ×2 (05:06→21:18)
[2019-03-04] MEDS: Menthol/Lanolin/Calamine/Znox 113 GM Tube 1 APPLIC TOPICAL ×3 (05:06→21:17)
[2019-03-04] MEDS: Empagliflozin 25 MG Tablet PO (05:06)
[2019-03-04 05:07] VITALS: BP 165/82; PULSE 72
[2019-03-04] MEDS: Losartan Potassium 100 MG Tablet PO ×2 (05:07→17:00)
[2019-03-04] MEDS: LINAGLIPTIN 5 MG TABLET PO (05:07)
[2019-03-04] MEDS: Paroxetine 20 MG Tablet 40 MG PO (05:07)
[2019-03-04] MEDS: Metoprolol(XL)Succ 25 MG Tablet 12.5 MG PO ×2 (05:07→17:00)
[2019-03-04] MEDS: Furosemide 40 MG Tablet PO ×2 (05:07→17:00)
[2019-03-04] MEDS: Senna/Docusate Sodium 1 Tablet 2 TABLET PO ×2 (05:07→16:56)
[2019-03-04] MEDS: Levothyroxine 112 MCG Tablet PO (05:07)
[2019-03-04] MEDS: Allopurinol 100 MG Tablet PO (05:08)
[2019-03-04] MEDS: Finasteride 5 MG Tablet PO (05:12)
[2019-03-04] MEDS: Enoxaparin 40 MG/0.4 ML Syringe SC (05:15)
[2019-03-04] MEDS: Polyethylene Glycol 3350 17 GM PACKET PO (05:18)
[2019-03-04] MEDS: 0.9% NaCl Peripheral Flush Adult/Peds IV ×2 (06:06→10:30)
--- NOTE | 2019-03-04 06:12 | NURSING ---
All care provided in room d/t pt remains in precautions.
[2019-03-04 06:16] LABS: Absolute Lymphocyte Count 2.11 X10^3/ul (0.83-4.51); Absolute Neutrophil Count 5.6 X10^3/uL (2.0-7.7); Basophil# 0.03 X10^3/uL; Basophil% 0.3 % (0-1); Eosinophil# 0.29 X10^3/uL; Eosinophils% 3.2 % (0-5); Hematocrit 38.5 % (40-54); Hemoglobin 12.3 g/dl (13.0-16.5); Lymphocyte # 2.11 X10^3/ul (4.0); Mean Corp Hgb Conc 31.9 g/gl (32-36); Mean Corpuscular Hgb 29.7 pg (27.0-32.0); Mean Platelet Vol. 9.5 fl (6.2-12.0); Monocyte# 1.13 X10^3/uL; Monocyte% 12.3 % (0-10); Neutrophil # 5.61 X10^3/uL (2.7-7.7); Platelet Count 410 K/mm3 (150-450); RBC Distribution Width SD 51.1 fl (35.1-43.9); Red Blood Count 4.14 M/mm3 (4.6-6.2); White Blood Count 9.2 K/mm3 (4.4-11.0)
[2019-03-04 06:25] LABS: Bedside Glucose 108 mg/dL (70-110)
[2019-03-04 06:30] LABS: POSITIVE COUNT NO; POSITIVE DIFFERENTIAL NO; POSITIVE MORPHOLOGY NO
[2019-03-04 06:50] LABS: ALB/GLOB Ratio 0.6 RATIO (0.9-2.4); AST(SGOT) 21 U/L (15-37); Alanine Aminotransfer ALT/SGPT 15 U/L (16-61); Albumin, Serum 2.8 g/dL (3.2-5.0); Alkaline Phosphatase 166 U/L (45-117); Anion Gap 4 (5-15); BUN 10 mg/dL (7-18); BUN/Creat Ratio 15.4 RATIO (10-20); Chloride 103 mmol/L (98-107); Creatinine, Serum 0.65 mg/dL (0.70-1.30); EST Glomerular Filtration Rate 128 mL/min (>60); Est Glom Filt Rate - Afr Amer 155 mL/min (>60); Estimated Creatinine Clearance 63.65 ml/min; Globulin 4.4 g/dL (2.2-4.2); Glucose 94 mg/dL (74-106); Potassium 3.3 mmol/L (3.5-5.1); Protein, Total 7.2 g/dL (6.4-8.2); Sodium Level 137 mmol/L (136-145)
--- NOTE | 2019-03-04 08:18 | NURSING ---
ALL CARE GIVEN IN ROOM, DUE TO PT IN PRECAUTIONS FOR MRSA.
[2019-03-04] MEDS: Aspirin 81 MG TAB.CHEW PO (08:22)
[2019-03-04 11:02] LABS: Vancomycin, Trough Level 22.1 ug/mL (5.0-15.0)
--- NOTE | 2019-03-04 11:17 | NURSING ---
THIS NURSE VERIFIED WITH MICHAEL FROM PHARMACY OK TO RUN PRESENT VANCOMYCIN AND PHARMACY WILL ADJUST DOSE. REPORTED TO JOSELITO SPRING
--- NOTE | 2019-03-04 12:56 | PCM.RX.CS ---
Consult Pharmacy has been consulted to manage selected antiobiotic: Vancomycin Type of Consult: Follow-up Suspected Infection: Sepsis Prior Doses of Antibiotics Received/Current Regimen: 8 Labs: Sodium 137 mmol/L (136-145) 03/04/19 05:25 Potassium 3.3 mmol/L (3.5-5.1) L 03/04/19 05:25 Chloride 103 mmol/L (98-107) 03/04/19 05:25 Carbon Dioxide 30.0 mmol/L (21.0-32.0) 03/04/19 05:25 Anion Gap 4 (5-15) L 03/04/19 05:25 BUN 10 mg/dL (7-18) 03/04/19 05:25 Creatinine 0.65 mg/dL (0.70-1.30) L 03/04/19 05:25 Est GFR (MDRD) Af Amer 155 mL/min (>60) 03/04/19 05:25 Est GFR (MDRD) Non-Af 128 mL/min (>60) 03/04/19 05:25 BUN/Creatinine Ratio 15.4 RATIO (10-20) 03/04/19 05:25 Glucose 94 mg/dL (74-106) 03/04/19 05:25 Vancomycin Trough 22.1 ug/mL (5.0-15.0) H 03/04/19 09:27 Microbiology: Microbiology 02/28/19 19:22 Wound - No Site/Description Given Gram Stain - Final 02/28/19 19:22 Wound - No Site/Description Given Wound Culture - Final Meth. resistant Staph. aureus 02/28/19 19:22 Wound - No Site/Description Given Anaerobic Culture - Final No anaerobic bacteria isolated. 02/28/19 20:55 Blood Culture (Wb) - Anticubital Left Blood Culture - Preliminary Meth. resistant Staph. aureus 02/28/19 21:05 Blood Culture (Wb) - Left Wrist Blood Culture - Final Meth. resistant Staph. aureus Weight used for dosin.2 kg Estimated Creatinine Clearance: 63.7 Goal Trough: 15-20 mcg/mL - REDUCE VANCO DOSE TO 1500MG Q12H , REPEAT VANCO TROUGH PRIOR TO 4TH DOSE Pharmacy Plan for Drug Dosing: Pharmacy Service will continue to monitor and adjust dosing as required.
--- NOTE | 2019-03-04 15:05 | NURSING ---
Addendum entered by Chris Mckeon 03/05/19 06:38: CORRECTION MIDLINE FLUSHED. Original Note: PICC FLUSHED AND GOOD BLOOD RETURN AT 10:30AM. SLIGHT BULGE IN ARM TOP OF LINE. REPORTED TO JOSELITO SPRING
[2019-03-04 15:50] VITALS: BP 181/88; PULSE 62; RESP 18; TEMP 36.8; O2SAT 95
--- NOTE | 2019-03-04 16:27 | PCM.HP.ID ---
Problem List (1) MRSA bacteremia Status: Acute Reason for Consult: mrsa Consulted by: Dr. Oquendo History of Present Illness: The patient is a 73 year old M with DM, fall with RLE fracture, taken to OR 01/29/[address] Rutledge for ORIF. Now in TCU, had increased wound redness, started on vanc/meropenem. Bcx now with MRSA. No fever, no new pain in back or joints. No n/v/d. No prior h/o MRSA. Full ROS performed and neg except as noted above. - Medical History Past Medical History (Chronic Problems): Chronic Problems (Last Reviewed 01/26/19 @ 17:02 by Bib Judge DO) Weakness (Chronic) Chronic diastolic heart failure (Chronic) Lymphedema (Chronic) Diabetes mellitus (Chronic) GERD (gastroesophageal reflux disease) (Chronic) Hypothyroidism (Chronic) Lumbar spinal stenosis (Chronic) Osteoarthritis of knees, bilateral (Chronic) Depression (Chronic) Gout (Chronic) Neuropathic pain (Chronic) Low back pain (Chronic) Chronic venous insufficiency (Chronic) Dependent edema (Chronic) Debility (Chronic) Leg swelling (Chronic) EH (obstructive sleep apnea) (Chronic) Tricuspid valve insufficiency (Chronic) Venous stasis ulcer (Chronic) Obesity, morbid, BMI 40.0-49.9 (Chronic) Abnormal electrocardiogram (Chronic) Non-rheumatic tricuspid valve insufficiency (Chronic) Chronic diastolic (congestive) heart failure (Chronic) Hyperlipidemia (Chronic) Hypertension (Chronic) Chronic acquired lymphedema (Chronic) Allergies/Adverse Reactions: Allergies cocaine Allergy (Verified 09/11/18 13:52) Unknown atorvastatin calcium [From Lipitor] Adverse Reaction (Verified 09/11/18 13:52) Pain in joints haloperidol [From Haldol] Adverse Reaction (Verified 09/11/18 13:52) Other WENT CRAZY morphine Adverse Reaction (Verified 09/11/18 13:52) Other extremely aggitated oxycodone [From OxyIR] Adverse Reaction (Verified 09/11/18 13:52) Pain in joints extremely aggitated prednisone Adverse Reaction (Verified 09/11/18 13:52) ANXIOUS, INSOMNIA STERIODS Adverse Reaction (Uncoded 08/16/18 02:59) Other ANXIETY INSOMNIA Home Medications: Ambulatory Orders Medication Instructions Recorded Paroxetine HCl [Paxil] 40 mg PO DAILY 09/27/16 Potassium Chloride [K-Dur] 20 meq PO BID 09/27/16 Simvastatin [Zocor] 40 mg PO QHS 09/27/16 Sitagliptin Phosphate [Januvia] 100 mg PO DAILY 09/27/16 Torsemide [Demadex] 20 mg PO BID 09/27/16 traZODone [Desyrel] 50 mg PO QHS 09/27/16 Divalproex Sodium [Depakote] 500 mg PO BID 08/14/17 Allopurinol 100 mg PO DAILY 05/17/18 gabapentin 300 mg capsule 300 mg PO BID cap 07/17/18 Diclofenac Sodium 25 mg PO BID 08/16/18 Losartan Potassium 100 mg PO BID #60 tablet 09/09/18 Dulaglutide [Trulicity] 1.5 mg SQ QWEEK 01/26/19 Cholecalciferol (Vitamin D3) 2,000 unit PO DAILY 02/03/19 [Vitamin D3] Empagliflozin [Jardiance] 25 mg PO DAILY 02/03/19 Insulin Glargine [Lantus SoloStar 75 units SC QHS 02/03/19 Pen] Metoprolol(XL)Succ [Toprol Xl 12.5 mg PO BID 02/03/19 (Beta Romel)] Acetaminophen [Tylenol] 1,000 mg PO Q6H PRN PRN tablet 02/24/19 Aspirin 81 mg PO BID #0 02/24/19 Bisacodyl [Dulcolax] 10 mg PO DAILY PRN tablet 02/24/19 Levothyroxine [Synthroid] 112 mcg PO DAILY@0600 tablet 02/24/19 Melatonin 10 mg PO QHS tablet 02/24/19 Menthol/Lanolin/Calamine/Znox 1 applic TOPICAL TID tube 02/24/19 [Calmoseptine Ointment] Nystatin Powder [Mycostatin Powder] 1 applic TOPICAL 0600,2200 bottle 02/24/19 Polyethylene Glycol 3350 [Miralax] 17 gm PO DAILY PRN packet 02/24/19 Senna/Docusate Sodium [Senokot-S] 2 tablet PO BID tablet 02/24/19 Vital Signs Temp Pulse Resp BP Pulse Ox 98.3 F 62 18 181/88 H 95 03/04/19 15:50 03/04/19 15:50 03/04/19 15:50 03/04/19 15:50 03/04/19 15:50 Oxygen Delivery Method Room Air Weight: 118.161 kg Body Mass Index (BMI) 40.7 Finger Stick Blood Glucose 129 Microbiology Past 72 Hours 02/28/19 19:22 Gram Stain - Final Wound - No Site/Description Given Wound Culture - Final Meth. resistant Staph. aureus Anaerobic Culture - Final No anaerobic bacteria isolated. 02/28/19 20:55 Blood Culture - Preliminary Blood Culture (Wb) - Anticubital Left Meth. resistant Staph. aureus 02/28/19 21:05 Blood Culture - Final Blood Culture (Wb) - Left Wrist Meth. resistant Staph. aureus Laboratory Tests Past 24 Hrs 03/04/19 03/04/19 03/04/19 05:25 05:25 09:27 WBC 9.2 RBC 4.14 L Hgb 12.3 L Hct 38.5 L MCV 93.0 MCH 29.7 MCHC 31.9 L RDW 15.0 H RDW Differential 51.1 H Plt Count 410 MPV 9.5 Immature Gran % (Auto) 0.200 Neut % (Auto) 61.0 Lymph % (Auto) 23.0 [place] % (Auto) 12.3 H Eos % (Auto) 3.2 Baso % (Auto) 0.3 Absolute Neuts (auto) 5.6 Absolute Lymphs (auto) 2.11 Total Counted Not Reportable Sodium 137 Potassium 3.3 L Chloride 103 Carbon Dioxide 30.0 Anion Gap 4 L BUN 10 Creatinine 0.65 L Estim Creat Clear Calc 63.65 Est GFR (MDRD) Af Amer 155 Est GFR (MDRD) Non-Af 128 BUN/Creatinine Ratio 15.4 Glucose 94 Calcium 9.0 Total Bilirubin 0.40 AST 21 ALT 15 L Alkaline Phosphatase 166 H Total Protein 7.2 Albumin 2.8 L Globulin 4.4 H Albumin/Globulin Ratio 0.6 L Vancomycin Trough 22.1 H - Other Studies Radiology: [] reviewed Other Studies: [] Route of nutrition/ use of supplements: [] Nutritional Intake: [] IV Site: [] Carney Catheter: [] - Physical Exam General: Alert, Oriented x3, Cooperative, No apparent distress HEENT: Atraumatic, PERRLA, EOMI Neck: Supple, No Nodes Lungs: Clear to auscultation, Normal air movement Cardiovascular: Regular rate, Regular Rhythm, No murmurs Abdomen: Soft, Non Tender, Non-Distended Extremities: No edema, - - no joint or spine pain to palpation Skin: Ulcer/ Wound - R sol with some redness, warmth, swelling, mild tenderness., - - no splinter hemorrhages on hands. IV Site: - - midline no redness - Assessment/Plan Antibiotics: [] Assessment/Plan: [] Active and Suspected Problems (Last Reviewed 01/26/19 @ 17:02 by Bib Judge DO) Fall (Acute) MRSA bacteremia likely from MRSA infected R tib ORIF surg site - repeat bcx. Cont vanc, stop meropenem. Check echo, check CT to look for abscess. Clinically stable, no fever, no wbc. No sign of endocarditis or metastatic infection on exam. Will follow, thank you, d/w Dr. Oquendo and Dr. Rutledge.
[2019-03-04] MEDS: Tamsulosin HCl 0.4 MG Capsule PO (16:56)
[2019-03-04 17:00] VITALS: BP 181/88; PULSE 62
--- NOTE | 2019-03-04 18:43 | CON.PCM_ITS ---
Reason for Consult Date of Consultation: 03/04/19 Reason for Consultation: Nonhealing necrotic MRSA ulcer right proximal lateral leg s/p ORIF tibial plateau fracture. REFERRING PHYSCIAN: Dr. Rutledge. TESTING DIRECTOR: Dr. Fernando. History of Present Illness: The patient is a 73 year old M who has a history of a fall last month. He sustained a tibial plateau fracture right knee and leg. Dr. Rutledge took him to surgery on 01/29/19 where he underwent open reduction internal fixation right bicondylar tibial plateau fracture. He developed some dry eschar on the incision line. Recently it started draining and the culture showed MRSA. He also has positive blood cultures for MRSA. He is on Vancomycin. A CT scan was done today 03/04/19 and it showed status post open reduction and interval fixation of proximal tibial fracture utilizing screw and sideplate fixation device. There is good alignment. The fracture line is still visible. I was asked to evaluate this patient for surgical options for treatment. 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 Lymphedema (Chronic) Diabetes mellitus (Chronic) GERD (gastroesophageal reflux disease) (Chronic) Hypothyroidism (Chronic) Lumbar spinal stenosis (Chronic) Osteoarthritis of knees, bilateral (Chronic) Depression (Chronic) Gout (Chronic) Neuropathic pain (Chronic) Low back pain (Chronic) Chronic venous insufficiency (Chronic) EH (obstructive sleep apnea) (Chronic) Tricuspid valve insufficiency (Chronic) Obesity, morbid, BMI 40.0-49.9 (Chronic) Non-rheumatic tricuspid valve insufficiency (Chronic) Chronic diastolic (congestive) heart failure (Chronic) Hyperlipidemia (Chronic) Hypertension (Chronic) Medical History: Medical History (Last Reviewed 01/26/19 @ 17:02 by Bib Judge DO) Non-rheumatic tricuspid valve insufficiency (Chronic) I36.1 Chronic diastolic (congestive) heart failure (Chronic) I50.32 Hyperlipidemia (Chronic) E78.5 Hypertension (Chronic) I10 Asbestos exposure Z77.090 GERD (gastroesophageal reflux disease) K21.9 Hypothyroidism E03.9 Obstructive sleep apnea G47.33 Type 2 diabetes mellitus E11.9 Venous stasis dermatitis of right lower extremity (Inactive) I83.11 Allergies cocaine Allergy (Verified 09/11/18 13:52) Unknown atorvastatin calcium [From Lipitor] Adverse Reaction (Verified 09/11/18 13:52) Pain in joints haloperidol [From Haldol] Adverse Reaction (Verified 09/11/18 13:52) Other WENT CRAZY morphine Adverse Reaction (Verified 09/11/18 13:52) Other extremely aggitated oxycodone [From OxyIR] Adverse Reaction (Verified 09/11/18 13:52) Pain in joints extremely aggitated prednisone Adverse Reaction (Verified 09/11/18 13:52) ANXIOUS, INSOMNIA STERIODS Adverse Reaction (Uncoded 08/16/18 02:59) Other ANXIETY INSOMNIA Current Medications Acetaminophen (Tylenol) 1,000 mg PO Q6H PRN PRN PRN Reason: MILD PAIN (-01/26) Last Admin: 02/28/19 11:29 Dose: 1,000 mg Allopurinol (Zyloprim) 100 mg PO DAILY [facility] Last Admin: 03/04/19 05:08 Dose: 100 mg [facility], Baby) [facility] Stop: 03/31/19 08:01 Last Admin: 03/04/19 08:22 Dose: 81 mg Bisacodyl (Dulcolax) 10 mg PO DAILY PRN PRN Reason: Constipation Calamine/Phenol (Calmoseptine Ointment) 1 applic TOPICAL TID [facility]; Protocol Last Admin: 03/04/19 14:41 Dose: 1 applicatio Cholecalciferol (Vitamin D) 1,000 unit PO DAILY [facility] Last Admin: 03/04/19 05:07 Dose: 1,000 unit Diclofenac Sodium (Voltaren) [facility] Last Admin: 03/04/19 16:56 Dose: 50 mg Enoxaparin Sodium (Lovenox) 40 mg SC DAILY@0600 [facility] Last Admin: 03/04/19 05:15 Dose: 40 mg Finasteride (Proscar) 5 mg PO DAILY [facility] Last Admin: 03/04/19 05:12 Dose: 5 mg Furosemide (Lasix) 40 mg PO BID [facility] Last Admin: 03/04/19 17:00 Dose: 40 mg Gabapentin (Neurontin) 300 mg PO BID [facility] Last Admin: 03/04/19 17:00 Dose: 300 mg Hydromorphone HCl (Dilaudid Tablet) 2 mg PO Q6H PRN PRN Reason: SEVERE PAIN (6-1010) Last Admin: 03/02/19 20:01 Dose: 1 mg Vancomycin IV Pharmacy to Dose (1 ea/ Sodium Chloride) 500 mls @ 250 mls/hr IV X1 PRN; Protocol PRN Reason: Rx to Dose Sodium Chloride () 250 mls @ 15 mls/hr IV .[id number] PRN PRN Reason: SALINE FLUSH Last Admin: 03/01/19 21:45 Dose: 15 mls/hr Vancomycin HCl 1,500 mg/ (Sodium Chloride) 530 mls @ 250 mls/hr IV Q12H [facility] Stop: 03/07/19 14:08 Insulin Glargine (Lantus (Bkc)) 65 units SC QHS [facility] Last Admin: 03/03/19 22:24 Dose: 65 u Levothyroxine Sodium (Synthroid) 112 mcg PO DAILY@0600 [facility] Last Admin: 03/04/19 05:07 Dose: 112 mcg Linagliptin (Tradjenta) 5 mg PO DAILY [facility] Last Admin: 03/04/19 05:07 Dose: 5 mg Losartan Potassium (Cozaar) 100 mg PO BID [facility] Last Admin: 03/04/19 17:00 Dose: 100 mg Melatonin (Melatonin) 10 mg PO QHS [facility] Last Admin: 03/03/19 22:11 Dose: 10 mg Metoprolol Succinate (Toprol Xl (Beta Romel)) 12.5 mg PO BID [facility] Last Admin: 03/04/19 17:00 Dose: 12.5 mg Nystatin (Mycostatin Powder) 1 applic TOPICAL 0600,2200 [facility]; Protocol Last Admin: 03/04/19 05:06 Dose: 1 applicatio Paroxetine HCl (Paxil) 40 mg PO DAILY [facility] Last Admin: 03/04/19 05:07 Dose: 40 mg Polyethylene Glycol (Miralax) 17 gm PO DAILY PRN PRN Reason: Constipation Last Admin: 03/04/19 05:18 Dose: 17 gm Potassium Chloride (K-Dur) [facility] Last Admin: 03/04/19 16:57 Dose: 20 meq Senna/Docusate Sodium (Senokot-S, Bria-Colace) 2 tablet PO BID [facility] Last Admin: 03/04/19 16:56 Dose: 2 tablet Simvastatin (Zocor) 40 mg PO QHS [facility] Last Admin: 03/03/19 22:11 Dose: 40 mg Sodium Chloride () 5 - 15 ml IV UD PRN PRN Reason: SALINE FLUSH Last Admin: 03/04/19 10:30 Dose: 10 ml Tamsulosin HCl (Flomax) 0.4 mg PO DAILY@1730 [facility] Last Admin: 03/04/19 16:56 Dose: 0.4 mg Trazodone HCl (Desyrel) 50 mg PO QHS [facility] Last Admin: 03/03/19 22:11 Dose: 50 mg Home Medications: Ambulatory Orders Medication Instructions Recorded Paroxetine HCl [Paxil] 40 mg PO DAILY 09/27/16 Potassium Chloride [K-Dur] 20 meq PO BID 09/27/16 Simvastatin [Zocor] 40 mg PO QHS 09/27/16 Sitagliptin Phosphate [Januvia] 100 mg PO DAILY 09/27/16 Torsemide [Demadex] 20 mg PO BID 09/27/16 traZODone [Desyrel] 50 mg PO QHS 09/27/16 Divalproex Sodium [Depakote] 500 mg PO BID 08/14/17 Allopurinol 100 mg PO DAILY 05/17/18 gabapentin 300 mg capsule 300 mg PO BID cap 07/17/18 Diclofenac Sodium 25 mg PO BID 08/16/18 Losartan Potassium 100 mg PO BID #60 tablet 09/09/18 Dulaglutide [Trulicity] 1.5 mg SQ QWEEK 01/26/19 Cholecalciferol (Vitamin D3) 2,000 unit PO DAILY 02/03/19 [Vitamin D3] Empagliflozin [Jardiance] 25 mg PO DAILY 02/03/19 Insulin Glargine [Lantus SoloStar 75 units SC QHS 02/03/19 Pen] Metoprolol(XL)Succ [Toprol Xl 12.5 mg PO BID 02/03/19 (Beta Romel)] Acetaminophen [Tylenol] 1,000 mg PO Q6H PRN PRN tablet 02/24/19 Aspirin 81 mg PO BID #0 02/24/19 Bisacodyl [Dulcolax] 10 mg PO DAILY PRN tablet 02/24/19 Levothyroxine [Synthroid] 112 mcg PO DAILY@0600 tablet 02/24/19 Melatonin 10 mg PO QHS tablet 02/24/19 Menthol/Lanolin/Calamine/Znox 1 applic TOPICAL TID tube 02/24/19 [Calmoseptine Ointment] Nystatin Powder [Mycostatin Powder] 1 applic TOPICAL 0600,2200 bottle 02/24/19 Polyethylene Glycol 3350 [Miralax] 17 gm PO DAILY PRN packet 02/24/19 Senna/Docusate Sodium [Senokot-S] 2 tablet PO BID tablet 02/24/19 Surgical History: Surgical History (Last Reviewed 01/26/19 @ 17:02 by Bib Judge DO) Cochlear implant in place Z96.21 H/O shoulder surgery Z98.890 History of left heart catheterization Onset Date: 08/15/17 Z98.890 non obstructive coronary arteries History of right knee joint replacement Z96.651 Hx of cholecystectomy Z90.49 Previous back surgery Z98.890 Surgical History: cholecystectomy, total hip arthroplasty - Right, total knee arthroplasty - Right., - - Left shoulder surgery with rotator cuff repair; back surgery x 4; left cochlear implant. Psychiatric History: Depression Lives: Spouse/ Significant Other Smoking Status: Former smoker Tobacco Use: Non-smoker Alcohol: None Drugs: None - *Family History Maternal Family History: Family History (Last Reviewed 01/26/19 @ 17:02 by Bib Judge DO) Mother Hypertension Father Hypertension History Items: Dementia, Hypertension Paternal Family History: Family History (Last Reviewed 01/26/19 @ 17:02 by Bib Judge DO) Mother Hypertension Father Hypertension History Items: Heart Disease - decased age 73, Hypertension Review of Systems Comment: Constitutional: Denies: Anorexia, Chills, Fever. Eyes: Denies: Blurred vision, Double vision. HEENT: Reports: Difficulty Hearing. Denies: Head Aches, Sinus Congestion, Sinus Drainage. Cardiovascular: Denies: Chest Pain, Palpitations. Respiratory: Denies: Cough, Shortness of breath at rest, Sputum production. Gastrointestinal: Reports: Constipation, Diarrhea. Denies: Abdominal Pain, Nausea, Vomiting. Genitourinary: Reports: Incontinence. Denies: Dysuria. Musculoskeletal: Reports: Joint Pain, - - Right knee pain. Skin: Reports: - - Venous stasis changes. Weeping from lymphedema of the lower extremities. Neurological: Reports: Balance problems - Patient is very debilitated overall.. Denies: Blurred vision, Double vision. Psychiatric: Denies: Anxiety, Depression. Endocrine: Denies: Change in Body Habitus, Heat/ Cold Intolerance. Hematologic/ Lymphatic: Denies: Easy Bruising, Easy Bleeding, Hx of blood clot - Physical Exam General: Alert, Cooperative. HEENT: PERRL. EOMI. Oral: Moist Mucosa. Neck: Supple, nontender. No cervical adenopathy. Lungs: Clear to auscultation. Cardiovascular: Regular rate, Regular Rhythm. Abdomen: Soft, Non-Distended. Extremities: No Calf Tenderness, Edema. Venous stasis changes to the lower extremities. On the right proximal lateral leg is an incision from recent ORIF tibial plateau fracture that has developed some skin necrosis with ulceration and drainage. No exposed bone. No exposed hardware. Wound culture showed MRSA. Some tenderness to palpation. Neuro: CN II - XII grossly intact. Psych/Mental Status: Normal Affect, Appropriate Vital Signs Temp Pulse Resp BP Pulse Ox 98.3 F 62 18 181/88 H 95 03/04/19 15:50 03/04/19 17:00 03/04/19 15:50 03/04/19 17:00 03/04/19 15:50 Oxygen Delivery Method Room Air Weight: 260 lb 8 oz Body Mass Index (BMI) 40.7 Finger Stick Blood Glucose 129 Intake and Output for Last 24 Hours 03/02/19 03/03/19 03/04/19 23:59 23:59 23:59 Intake Total 1320 / 1320 720 / 720 960 / 960 Output Total 50 / 50 200 / 200 Balance 1320 / 1320 670 / 670 760 / 760 Microbiology Past 72 Hours 02/28/19 19:22 Gram Stain - Final Wound - No Site/Description Given Wound Culture - Final Meth. resistant Staph. aureus Anaerobic Culture - Final No anaerobic bacteria isolated. 02/28/19 20:55 Blood Culture - Preliminary Blood Culture (Wb) - Anticubital Left Meth. resistant Staph. aureus 02/28/19 21:05 Blood Culture - Final Blood Culture (Wb) - Left Wrist Meth. resistant Staph. aureus Laboratory Tests Past 24 Hrs 03/04/19 03/04/19 03/04/19 05:25 05:25 09:27 WBC 9.2 RBC 4.14 L Hgb 12.3 L Hct 38.5 L MCV 93.0 MCH 29.7 MCHC 31.9 L RDW 15.0 H RDW Differential 51.1 H Plt Count 410 MPV 9.5 Immature Gran % (Auto) 0.200 Neut % (Auto) 61.0 Lymph % (Auto) 23.0 [place] % (Auto) 12.3 H Eos % (Auto) 3.2 Baso % (Auto) 0.3 Absolute Neuts (auto) 5.6 Absolute Lymphs (auto) 2.11 Total Counted Not Reportable Sodium 137 Potassium 3.3 L Chloride 103 Carbon Dioxide 30.0 Anion Gap 4 L BUN 10 Creatinine 0.65 L Estim Creat Clear Calc 63.65 Est GFR (MDRD) Af Amer 155 Est GFR (MDRD) Non-Af 128 BUN/Creatinine Ratio 15.4 Glucose 94 Calcium 9.0 Total Bilirubin 0.40 AST 21 ALT 15 L Alkaline Phosphatase 166 H Total Protein 7.2 Albumin 2.8 L Globulin 4.4 H Albumin/Globulin Ratio 0.6 L Vancomycin Trough 22.1 H POC Glucose 03/04/19 03/03/19 06:16 21:15 POC Glucose 108 169 H Assessment/Plan All Active Problems (Last Reviewed 01/26/19 @ 17:02 by Bib Judge DO) MRSA (methicillin resistant Staphylococcus aureus) infection (Acute) Unspecified fracture of shaft of right tibia, sequela (Acute) MRSA bacteremia (Acute) Fracture of right tibia and fibula (Acute) Hypokalemia (Resolved) 1. 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 2. Recent history of ORIF right tibial plateau fracture. 3. MRSA. 4. MRSA bacteremia. 5. Diabetes mellitus. 6. Status right knee replacement, medial compartment. 7. Fall. Continue Vancomycin for the MRSA. CT Scan reviewed. No bony involvement. Recommend surgical preparation of right proximal lateral leg with incision and drainage and excisional debridement nonhealing necrotic MRSA ulcer. Will send additional tissue to Microbiology for culture and to Pathology for analysis to rule out carcinoma. If the culture is positive, then antibiotic modification may be need. Will start postop wound care with the VAC. Anticipate increased metabolic demands from the infection and the planned surgery. Will check a Prealbumin and encourage nutritional supplementation with protein to help the healing process. After discharge, will followup at [facility]. If there is a plateau in the healing process, can proceed with delayed closure with skin grafting. Anticipate no exposed bone or hardware will be seen. However if there is exposure, then [facility] IV antibiotics would be needed. May go to Betadine dressings at that point to help minimize risk of osteomyelitis. Wound closure cannot be done until the hardware is removed which may be difficult at this time because of the difficulty in healing these fractures. One option is to place an external fixator to stabilize the situation and remove the hardware. At that point, partial ostectomy for osteomyelitis would be done. If the pathology is negative, then can proceed with a muscle flap for reconstruction (lateral gastrocnemius muscle). If the hardware is left in, then would hold off on soft tissue reconstruction until the hardware is removed because I would have to check a partial ostectomy for osteomyelitis. When I obtain a negative diagnosis showing no osteomyelitis, then I would schedule the muscle flap reconstruction. Surgery will be done under general anesthesia. Patient has diabetes mellitus which increases risk of delayed healing and infection. Patient was informed of the risks and complications of the procedure including alternatives to surgery. These were discussed with the patient personally. Patient voices understanding and wishes to proceed. Code Visit Inpatient E&M: 53349 Init Hosp L2 - E11.622, A49.02, R78.81, I96, S82.201S, Z96.651, W19.xxxA
[2019-03-04 19:13] VITALS: BP 144/66
--- NOTE | 2019-03-04 20:57 | NURSING ---
All care provided in room this shift d/t pt remaining in precautions.
[2019-03-04] MEDS: traZODone 50 MG Tablet PO (21:17)
[2019-03-04] MEDS: MELATONIN 10 MG TABLET PO (21:17)
[2019-03-05 06:41] LABS: Bedside Glucose 115 mg/dL (70-110)
[2019-03-05 06:43] LABS: Hematocrit 35.4 % (40-54); Hemoglobin 11.4 g/dl (13.0-16.5); Mean Corp Hgb Conc 32.2 g/gl (32-36); Mean Corpuscular Hgb 29.5 pg (27.0-32.0); Mean Corpuscular Volume 91.7 fL (80-94); Mean Platelet Vol. 8.8 fl (6.2-12.0); Platelet Count 401 K/mm3 (150-450); RBC Distribution Width CV 14.7 % (11.6-14.6); RBC Distribution Width SD 48.4 fl (35.1-43.9); Red Blood Count 3.86 M/mm3 (4.6-6.2); White Blood Count 8.4 K/mm3 (4.4-11.0)
[2019-03-05 06:53] LABS: Scan Indicated on CBC? Y/N NO
[2019-03-05 06:54] LABS: Erythrocyte Sedimentation Rate 88 mm/hr (0-20)
[2019-03-05 07:15] LABS: Anion Gap 5 (5-15); BUN 11 mg/dL (7-18); BUN/Creat Ratio 19.2 RATIO (10-20); Calcium,Total 8.9 mg/dL (8.5-10.1); Chloride 108 mmol/L (98-107); Creatinine, Serum 0.57 mg/dL (0.70-1.30); EST Glomerular Filtration Rate 148 mL/min (>60); Est Glom Filt Rate - Afr Amer 178 mL/min (>60); Estimated Creatinine Clearance 63.65 ml/min; Glucose 101 mg/dL (74-106); Potassium 3.5 mmol/L (3.5-5.1); Prealbumin 14.6 mg/dL (20.0-40.0); Sodium Level 143 mmol/L (136-145)
--- NOTE | 2019-03-05 08:00 | NURSING ---
patient is scheduled for surgical debridement today with Dr Fernando. according to progress notes, patient will most likely get a wound VAC post op.
--- NOTE | 2019-03-05 09:48 | NURSING ---
Pt notified of surgery at 1300 today, unable to make it in d/t DR lewis, if anything needed to call her on cell phone listed in chart.
--- NOTE | 2019-03-05 09:55 | NURSING ---
Dr Fernando notified for orders for surgery, hold all meds for now but ok to give IV Vanc
[2019-03-05 10:15] VITALS: PULSE 63; RESP 18; O2SAT 95
[2019-03-05] MEDS: 0.9% NaCl IVPB Med Flush (250 mL) 15 ML IV (11:58)
[2019-03-05] MEDS: 0.9% NaCl Peripheral Flush Adult/Peds IV (11:59)
--- NOTE | 2019-03-05 13:01 | PCM.PN.ID ---
Patient Problems: Active and Suspected Problems (Last Reviewed 01/26/19 @ 17:02 by Bib Judge DO) MRSA bacteremia (Acute) Fall (Acute) Subjective: No fever, no n/v/d, OR today. - Physical Exam General: Alert, Cooperative, No apparent distress Lungs: Clear to auscultation, Normal air movement Cardiovascular: Regular rate, Regular Rhythm Abdomen: Soft, Non Tender, Non-Distended Skin: Ulcer/ Wound - knee wrapped Vital Signs Temp Pulse Resp BP Pulse Ox 98.3 F 63 18 144/66 H 95 03/04/19 15:50 03/05/19 10:15 03/05/19 10:15 03/04/19 19:13 03/05/19 10:15 Oxygen Delivery Method Room Air Weight: 118.161 kg Body Mass Index (BMI) 40.7 Finger Stick Blood Glucose 129 Intake and Output for Last 24 Hours 03/03/19 03/04/19 03/05/19 23:59 23:59 23:59 Intake Total 720 / 720 1280 / 1280 Output Total 50 / 50 200 / 200 275 / 275 Balance 670 / 670 1080 / 1080 -275 / -275 Microbiology Past 72 Hours 02/28/19 19:22 Gram Stain - Final Wound - No Site/Description Given Wound Culture - Final Meth. resistant Staph. aureus Anaerobic Culture - Final No anaerobic bacteria isolated. 02/28/19 20:55 Blood Culture - Preliminary Blood Culture (Wb) - Anticubital Left Meth. resistant Staph. aureus 02/28/19 21:05 Blood Culture - Final Blood Culture (Wb) - Left Wrist Meth. resistant Staph. aureus Laboratory Tests Past 24 Hrs 03/05/19 03/05/19 06:25 06:25 WBC 8.4 RBC 3.86 L Hgb 11.4 L Hct 35.4 L MCV 91.7 MCH 29.5 MCHC 32.2 RDW 14.7 H RDW Differential 48.4 H Plt Count 401 MPV 8.8 ESR 88 H Sodium 143 Potassium 3.5 Chloride 108 H Carbon Dioxide 30.0 Anion Gap 5 BUN 11 Creatinine 0.57 L Estim Creat Clear Calc 63.65 Est GFR (MDRD) Af Amer 178 Est GFR (MDRD) Non-Af 148 BUN/Creatinine Ratio 19.2 Glucose 101 Calcium 8.9 C-React Prot Ext Range 139.00 H Prealbumin 14.6 L POC Glucose 03/05/19 06:25 POC Glucose 115 H Medical Necessity - Tobacco Use Smoking Status: Former smoker Tobacco Use: Non-smoker Route of nutrition/ use of supplements: [] Nutritional Intake: [] IV Site: [] Carney Catheter: [] - Assessment/Plan Antibiotics: [] Assessment/Plan: [] Active and Suspected Problems (Last Reviewed 01/26/19 @ 17:02 by Bib Judge DO) Fall (Acute) MRSA bacteremia likely from MRSA infected R tib ORIF surg site - repeat bcx. Cont vanc. Check echo. CT leg done, going to OR today with Dr. Fernando. Clinically stable, no fever, no wbc. No sign of endocarditis or metastatic infection on exam. Will follow
--- NOTE | 2019-03-05 14:12 | NURSING ---
pt down to surgery via bed, vanc infusing.
--- NOTE | 2019-03-05 17:02 | NURSING ---
Pt's hearing aid's went with him to surgery. Skylar YEE aware.
[2019-03-05 17:26] LABS: Bedside Glucose 89 mg/dL (70-110)
--- NOTE | 2019-03-07 08:28 | DCINST_ITS ---
You will use the following diet at home:: No restrictions, Regular Your food should be the consistency of: Regular Your liquids should be the consistency of: Regular/Thin Weight Bearing Status: No weight bearing - Right lower extremity. Keep extremity elevated above heart level: Right Leg Call your doctor if you observe: Fever of 101 or Higher, Inability to urinate, Inability to have a bowel movement, Chest pain, Uncontrolled pain Allergies/Adverse Reactions: Allergies cocaine Allergy (Verified 09/11/18 13:52) Unknown atorvastatin calcium [From Lipitor] Adverse Reaction (Verified 09/11/18 13:52) Pain in joints haloperidol [From Haldol] Adverse Reaction (Verified 09/11/18 13:52) Other WENT CRAZY morphine Adverse Reaction (Verified 09/11/18 13:52) Other extremely aggitated oxycodone [From OxyIR] Adverse Reaction (Verified 09/11/18 13:52) Pain in joints extremely aggitated prednisone Adverse Reaction (Verified 09/11/18 13:52) ANXIOUS, INSOMNIA STERIODS Adverse Reaction (Uncoded 08/16/18 02:59) Other ANXIETY INSOMNIA Medications to take at Discharge Paroxetine HCl [Paxil] 40 mg PO DAILY 09/27/16 Potassium Chloride [K-Dur] 20 meq PO BID 09/27/16 Simvastatin [Zocor] 40 mg PO QHS 09/27/16 Sitagliptin Phosphate [Januvia] 100 mg PO DAILY 09/27/16 Torsemide [Demadex] 20 mg PO BID 09/27/16 traZODone [Desyrel] 50 mg PO QHS 09/27/16 Divalproex Sodium [Depakote] 500 mg PO BID 08/14/17 Allopurinol 100 mg PO DAILY 05/17/18 gabapentin 300 mg capsule 300 mg PO BID cap 07/17/18 Diclofenac Sodium 25 mg PO BID 08/16/18 Losartan Potassium 100 mg PO BID #60 tablet 09/09/18 Dulaglutide [Trulicity] 1.5 mg SQ QWEEK 01/26/19 Cholecalciferol (Vitamin D3) [Vitamin D3] 2,000 unit PO DAILY 02/03/19 Empagliflozin [Jardiance] 25 mg PO DAILY 02/03/19 Insulin Glargine [Lantus SoloStar Pen] 75 units SC QHS 02/03/19 Metoprolol(XL)Succ [Toprol Xl (Beta Romel)] 12.5 mg PO BID 02/03/19 Acetaminophen [Tylenol] 1,000 mg PO Q6H PRN PRN tablet 02/24/19 Aspirin 81 mg PO BID #0 02/24/19 Bisacodyl [Dulcolax] 10 mg PO DAILY PRN tablet 02/24/19 Levothyroxine [Synthroid] 112 mcg PO DAILY@0600 tablet 02/24/19 Melatonin 10 mg PO QHS tablet 02/24/19 Menthol/Lanolin/Calamine/Znox [Calmoseptine Ointment] 1 applic TOPICAL TID tube 02/24/19 Nystatin Powder [Mycostatin Powder] 1 applic TOPICAL 0600,2200 bottle 02/24/19 Polyethylene Glycol 3350 [Miralax] 17 gm PO DAILY PRN packet 02/24/19 Senna/Docusate Sodium [Senokot-S] 2 tablet PO BID tablet 02/24/19 Orders to be completed after discharge: Extremity Lower without Contra [CT] Location: None Selected Primary Care Physician: Gil Wheeler Chi, MD [Primary Care Provider] - Please follow up with your Primary Care Physician in: 1 week. Test Results: Test results from this visit will be discussed in further detail at your follow- up appointment, if applicable. Please Follow Up With: Dominick Rutledge MD/Esteban CHAVEZ When: call to schedule appt 4 wks from 02/14/19 Please Follow Up With: Dr. Atkins When: as needed after discharge Please Follow Up With: Dr Wheeler When: follow up 1 week after DC Proposed Discharge Date: 03/05/19
--- NOTE | 2019-03-10 10:44 | CASEMGMT ---
Insurance Left with Azeb at [facility] informing of d/c to [facility] hospital 03/05/19. Auth# [id number] ANIL Devries
== END 2019-03-05 18:06 | disposition short-term general hospital (02) | DRG 560 ==
PROVIDERS: Internal Medicine; Surgery; Admitting Provider Family Medicine Geriatric Medicine; Family Provider Family Medicine Geriatric Medicine; PCP Family Medicine Geriatric Medicine; Referring Provider Family Medicine Geriatric Medicine; Visit Provider Family Medicine Geriatric Medicine
DX: S82.831D Other fracture of upper and lower end of right fibula, subsequent encounter for closed fracture with routine healing (principal); I50.32 Chronic diastolic (congestive) heart failure; Z68.41 Body mass index [BMI] 40.0-44.9, adult; S82.191D Other fracture of upper end of right tibia, subsequent encounter for closed fracture with routine healing; W19.XXXD Unspecified fall, subsequent encounter; I11.0 Hypertensive heart disease with heart failure; E11.9 Type 2 diabetes mellitus without complications; K21.9 Gastro-esophageal reflux disease without esophagitis; E03.9 Hypothyroidism, unspecified; G47.33 Obstructive sleep apnea (adult) (pediatric); E66.01 Morbid (severe) obesity due to excess calories; Z71.3 Dietary counseling and surveillance; E78.5 Hyperlipidemia, unspecified; F32.9 Major depressive disorder, single episode, unspecified; M10.9 Gout, unspecified; E87.6 Hypokalemia; E55.9 Vitamin D deficiency, unspecified; Z87.891 Personal history of nicotine dependence; B95.62 Methicillin resistant Staphylococcus aureus infection as the cause of diseases classified elsewhere; B35.1 Tinea unguium; L60.3 Nail dystrophy; N40.1 Benign prostatic hyperplasia with lower urinary tract symptoms; N39.41 Urge incontinence; T81.49XS Infection following a procedure, other surgical site, sequela; Y83.8 Other surgical procedures as the cause of abnormal reaction of the patient, or of later complication, without mention of misadventure at the time of the procedure
CPT/HCPCS: 36415; 71045; 74018; 80048; 80053; 80202; 81001; 82962; 84134; 85025; 85027; 85652; 86140; 87040; 87070; 87075; 87077; 87186; 87205; 87640; 97110; 97163; 97166; 97530; 97535; 97802; J2185; J7040; J7050; J7120; A4216

== ENCOUNTER → 2019-03-04 11:20 | Outpatient (CLI) | payer MEDICARE, SELFPAY ==
[2019-02-03 14:40] VITALS: BMI 40.7
--- NOTE | 2019-03-04 11:23 | CT_ITS ---
STUDY: CT RIGHT KNEE WITHOUT CONTRAST REASON FOR EXAM: Male, 73 years old. Prior open reduction and internal fixation of the proximal tibial fracture. RADIATION DOSAGE (If Supplied By Facility): CTDIvol = ( 15.35 ) mGy, DLP = ( 1072.65 ) mGycm TECHNIQUE: Transaxial CT imaging of the knee was performed. Coronal and sagittal images were reformatted. Individualized dose optimization techniques were used for this CT. COMPARISON: Comparison is made with prior examination dated January 26, 2019. FINDINGS: The patient is status post medial femoral tibial hemiarthroplasty. The patient is status post open reduction and internal fixation of the proximal tibial plateau fracture with medial placement of screws and sideplate fixation device. There is good alignment. No significant healing of the fracture line is present. Healing fracture of the proximal neck of the fibula. Soft tissue swelling medially. There is atrophy of the posterior muscle group at the level of the knee joint. CT/Extremity Lower without Contra IMPRESSION: Status post open reduction and interval fixation of proximal tibial fracture utilizing screw and sideplate fixation device. There is good alignment. The fracture line is still visible. Electronically Signed: Sherman Trivedi, at 15:40 EDT , Service support ,
== END ==
PROVIDERS: Family Provider Family Medicine Geriatric Medicine; PCP Family Medicine Geriatric Medicine; Referring Provider Internal Medicine Infectious Disease; Visit Provider Internal Medicine Infectious Disease
DX: Z98.890 Other specified postprocedural states (principal)
CPT/HCPCS: 73700

== ENCOUNTER 2019-03-05 17:13 | Inpatient (IN) | payer MEDICARE, SELFPAY ==
[2019-02-03 14:40] VITALS: BMI 40.7
[2019-03-05] VITALS (8 sets, daily range): BP systolic 131–183; BP diastolic 68–84; PULSE 58–66; RESP 14–20; TEMP 36.6–37.1; O2SAT 92–99; BMI 39.4; BMI 41.9
--- NOTE | 2019-03-05 | UL_PTH ---
PATIENT: PAYTON GONZALES LOC: MS3 U#:[id number] AGE/SX: 73/M [place] [facility] [place]: Dr. Skylar Bonner DO : 1945 BED: 1 DIS: 03/10/2019 SPEC #: [id number] RECD: 03/06/19 14:25 STATUS: JUAN CARLOS REQ #: [id number] FABIOLA: 03/05/19 00:[address]: Elijah Fernando DEPT: SURGICAL PATHOLOGY RECD BY: Reji To ENTERED: 03/06/19 14:25 SP TYPE: ULCER OTHR DR: MD Dr. Nikolai Chamorro MD Dr. Marc Fiorentino, MD Dr. Robert Leininger, MD Dr. Tai Chi Kwok, MD Tissues: ULCER Procedures: Surgery Specimen Level III HEADER OPERATION: Surgical preparation right proximal lateral leg PRE-OP DIAGNOSIS: Nonhealing necrotic MRSA ulcer right proximal lateral leg TISSUE SUBMITTED: Nonhealing necrotic MRSA ulcer right proximal lateral leg MICROSCOPIC DIAGNOSIS Nonhealing necrotic MRSA ulcer right proximal lateral leg: Pieces of skin and soft tissue with focal ulceration, acute and chronic inflammation, granulation tissue reaction and fibrosis. RADHA:kaya 03/07/19 MICROSCOPIC DESCRIPTION Slides are reviewed. GROSS DESCRIPTION Received in fixative is one container labeled with the patient's name and designated nonhealing necrotic MRSA ulcer right proximal lateral leg. The specimen consists of a piece of skin with underlying tissue measuring 12 x 5 x 2 cm. A focal area of ulceration is noted with a bluish-black ulcer base. A piece of detached soft tissue is also noted measuring 4.5 x 2 x 1 cm. No mass lesion is identified. Hospice Fellow sections are submitted in two cassettes. / RADHA:kaya 03/06/19 TC:2 CPT: 15063
--- NOTE | 2019-03-05 17:01 | OP.PCM_ITS ---
Report of Operation Date of Procedure: 03/05/19 Pre-Operative Diagnosis: 1. 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 2. Recent history of ORIF right tibial plateau fracture. 3. MRSA. 4. MRSA bacteremia. 5. Diabetes mellitus. 6. Status right knee replacement, medial compartment. 7. Fall. Post-Operative Diagnosis: 1. 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 2. Recent history of ORIF right tibial plateau fracture. 3. MRSA. 4. MRSA bacteremia. 5. Diabetes mellitus. 6. Status right knee replacement, medial compartment. 7. Fall. 8. Exposed hardware right proximal lateral leg from tibial plateau fracture repair. Surgery/Procedure Performed:: Surgical preparation right proximal lateral leg with incision and drainage and excisional debridement nonhealing necrotic MRSA ulcer with exposed hardware (105 cm2). Description of Surgical Findings:: The patient is a 73 year old M who has a history of a fall last month. He sustained a tibial plateau fracture right knee and leg. Dr. Rutledge took him to surgery on 01/29/19 where he underwent open reduction internal fixation right bicondylar tibial plateau fracture. He developed some dry eschar on the incision line. Recently it started draining and the culture showed MRSA. He also has positive blood cultures for MRSA. He is on Vancomycin. A CT scan was done today 03/04/19 and it showed status post open reduction and interval fixation of proximal tibial fracture utilizing screw and sideplate fixation device. There is good alignment. The fracture line is still visible. I was asked to evaluate this patient for surgical options for treatment. Patient was informed of the risks and complications of the procedure including alternatives to surgery. These were discussed with the patient personally. Patient voices understanding and wishes to proceed. Size of defect right proximal lateral leg - 15 x 7 x 1 cm. In the proximal anteromedial aspect of the wound is exposed hardware from the tibial plateau fracture repair. watch and clock maker and repairer: None Type of Anesthesia:: General Specimen's removed: Nonhealing necrotic MRSA ulcer right proximal lateral leg to Pathology and Microbiology. Drains: None. Estimated Blood Loss (mL): 25 ml. Description of Procedure: Patient was taken to OR in supine position and was placed under general anesthesia. The right leg was prepped and draped in the usual fashion. SCD's were placed for DVT prophylaxis. Perioperative antibiotics were given intravenously. Using xylocaine with epinephrine, the nonhealing necrotic MRSA ulcer right proximal lateral leg was infiltrated. After waiting 5 minutes for the anesthetic to take effect, I proceeded with incision and drainage of this infection. No gross pus was seen. There was extensive fat necrosis that was starting to liquefy. The fat necrosis extended down to the muscular fascia. The extensor digitorum longus muscle appeared galo and nonviable and it was partially debrided until good bleeding muscle was seen. I then excised and debrided the necrotic ulcerated tissue which was adherent to and tracked down to the tibial plate which was exposed. I also excised and debrided the extensive fat necrosis present as well. Hemostasis was obtained with electrocautery. The nonhealing necrotic MRSA ulcerated tissue was sent to Pathology for analysis to rule out carcinoma and to Microbiology for culture. A positive culture may necessitate antibiotic modification. The wound was irrigated with saline. The size of the defect after incision and drainage and excisional debridement was 15 x 7 x 1 cm. The wound was dressed with Mepitel nonadherent dressing followed by Kerlix gauze and Betadine followed by dry Kerlix gauze and an ABD pad followed by a compression DONTAE wrap. Patient tolerated the procedure well and was sent to PACU in satisfactory condition. Patient will be sent upstairs for continued postop care. With the exposed hardware, we will proceed with Betadine dressing changes as it is difficult to heal a wound with exposed foreign body hardware with a VAC. Discussed with Dr. Rutledge. He will see the patient in a few days when he returns from being out of town for further evaluation of the exposed hardware. Grafts/Implants Used: None. - Complications None. - Admit VTE Documentation VTE Present on Admission: No VTE Mechan Device Prophylaxis: SCD's VTE Pharm Prophylaxis ordered?: Yes Code Visit Surgery Charges CPT - 70873 ICD-10 - E11.622, A49.02, L02.415, R78.81, I96, S82.201S, Z96.651, W19.xxxA 07647 E11.622, A49.02, L02.415, R78.81, I96, S82.201S, Z96.651, W19.xxxA 63571 L02.415, E11.622, A49.02, R78.81, I96, S82.201S, Z96.651, W19.xxxA
[2019-03-05] MEDS: Lactated Ringers 1,000 ML 60 ML IV (20:53)
[2019-03-05] MEDS: Metoprolol(XL)Succ 25 MG Tablet 12.5 MG PO (20:54)
[2019-03-05] MEDS: oxyCODONE 5 MG Tablet 10 MG PO (20:55)
[2019-03-05] MEDS: MELATONIN 10 MG TABLET PO (20:56)
[2019-03-05] MEDS: Senna/Docusate Sodium 1 Tablet 2 TABLET PO (20:56)
[2019-03-05] MEDS: Glucerna Shake 120 ML LIQUID PO (20:57)
[2019-03-05] MEDS: traZODone 50 MG Tablet PO (20:57)
[2019-03-05] MEDS: Divalproex Sodium 250 MG Tablet 500 MG PO (20:57)
[2019-03-05] MEDS: Losartan Potassium 100 MG Tablet PO (20:57)
[2019-03-05 21:15] LABS: Bedside Glucose 104 mg/dL (70-110)
--- NOTE | 2019-03-05 21:15 | PCM.RX.CS ---
Consult Pharmacy has been consulted to manage selected antiobiotic: Vancomycin Type of Consult: Follow-up Suspected Infection: Sepsis Prior Doses of Antibiotics Received/Current Regimen: Medications Vancomycin HCl 1,500 mg/ (Sodium Chloride) 530 mls @ 250 mls/hr IV Q12H CHERYL Last dose given: 03/05/19 1154 Weight used for dosin kg Estimated Creatinine Clearance: 64ml/min Goal Trough: 15-20 mcg/mL Pharmacy Plan for Drug Dosing: Vancomycin will be continued as previously ordered before transfer. Pharmacy Service will continue to monitor and adjust dosing as required. Follow-Up Labs: Trough Vancomycin - before 4th dose Labs to be done on [date and time ordered]: 03/06/19 1130 before 4th dose
[2019-03-06 05:43] LABS: Hematocrit 36.1 % (40-54); Hemoglobin 11.3 g/dl (13.0-16.5); Mean Corp Hgb Conc 31.3 g/gl (32-36); Mean Corpuscular Hgb 29.2 pg (27.0-32.0); Mean Corpuscular Volume 93.3 fL (80-94); Mean Platelet Vol. 8.7 fl (6.2-12.0); Platelet Count 436 K/mm3 (150-450); RBC Distribution Width CV 14.8 % (11.6-14.6); RBC Distribution Width SD 50.3 fl (35.1-43.9); Red Blood Count 3.87 M/mm3 (4.6-6.2); White Blood Count 9.4 K/mm3 (4.4-11.0)
[2019-03-06 06:04] LABS: Scan Indicated on CBC? Y/N NO
[2019-03-06 06:15] LABS: Anion Gap 7 (5-15); BUN 10 mg/dL (7-18); BUN/Creat Ratio 20.2 RATIO (10-20); Calcium,Total 8.7 mg/dL (8.5-10.1); Chloride 106 mmol/L (98-107); Creatinine, Serum 0.49 mg/dL (0.70-1.30); EST Glomerular Filtration Rate 175 mL/min (>60); Est Glom Filt Rate - Afr Amer 212 mL/min (>60); Estimated Creatinine Clearance 63.65 ml/min; Glucose 82 mg/dL (74-106); Potassium 3.5 mmol/L (3.5-5.1); Prealbumin 14.2 mg/dL (20.0-40.0); Sodium Level 141 mmol/L (136-145)
[2019-03-06 06:26] LABS: Erythrocyte Sedimentation Rate 88 mm/hr (0-20)
[2019-03-06 06:42] VITALS: BP 166/77; PULSE 61; RESP 14; TEMP 36.8; O2SAT 94
[2019-03-06] MEDS: Enoxaparin 40 MG/0.4 ML Syringe SC (06:48)
[2019-03-06] MEDS: oxyCODONE 5 MG Tablet 10 MG PO ×2 (06:48→14:26)
[2019-03-06] MEDS: Levothyroxine 112 MCG Tablet PO (06:48)
[2019-03-06] MEDS: Menthol/Lanolin/Calamine/Znox 113 GM Tube 1 APPLIC TOPICAL ×3 (06:48→20:58)
--- NOTE | 2019-03-06 08:09 | ECHOD_ITS ---
Reason For Study: dyspnea/SOB Procedure This was a 2D Doppler, Color Flow transthoracic echocardiogram. The study was technically difficult. PT scanned supine. Exam performed portable in patient room. Left Ventricle Mild concentric left ventricular hypertrophy. The estimated ejection fraction is 65 %. Stage 1 diastolic dysfunction. No regional wall motion abnormalities noted. Right Ventricle Normal size and thickness. Normal systolic function. Atria The left atrium is mildly enlarged. Normal right atrium. Normal atrial septum. Mitral Valve The mitral valve is structurally normal. No prolapse or stenosis seen. Trivial mitral valve insufficiency. Tricuspid Valve Normal tricuspid valve. Trivial tricuspid valve insufficiency. Right ventricular systolic pressure estimated to be 36 mmHg. Mild pulmonary hypertension. Aortic Valve Normal aortic valve. Trisinus/trileaflet aortic valve. Pulmonic Valve The pulmonic valve is not well visualized. Great Vessels Normal aortic root. Normal arch. Normal inferior vena cava. Inferior vena cava collapse with sniff. Pericardium/Pleural No pericardial effusion. MMode/2D Measurements & Calculations LVIDd: 4.3 cm IVSd: 1.4 cm Ao root diam: 3.5 cm LVIDs: 2.8 cm LVPWd: 1.4 cm RVDd: 3.1 cm FS: 34.9 % LAV(MOD-bp): 86.9 ml LA A4 area: 24.3 cm2 LA dimension(2D): 3.7 cm LAV(MOD-bp) Indexed: 37.1 ml/m2 LAV(MOD-sp2): 89.8 ml LAV(MOD-sp4): 78.1 ml RA A4 area: 18.0 cm2 Time Measurements MV dec time: 0.26 sec Doppler Measurements & Calculations MV E max gregory: 96.8 cm/sec Lat Peak E' Gregory: 8.9 cm/sec Med Peak E' Gregory: 6.8 cm/sec MV A max gregory: 127.4 cm/sec E/E' lat: 10.8 E/E' med: 14.2 MV E/A: 0.76 Ao V2 max: 130.5 cm/sec PA V2 max: 96.1 cm/sec TR max gregory: 278.4 cm/sec Ao max P.8 mmHg TR max P.0 mmHg Interpretation Summary Mild concentric left ventricular hypertrophy. The estimated ejection fraction is 65 %. Stage 1 diastolic dysfunction. The left atrium is mildly enlarged. Trivial mitral valve insufficiency. Trivial tricuspid valve insufficiency. Right ventricular systolic pressure estimated to be 36 mmHg. Mild pulmonary hypertension. Compared to echo report dated 09/28/2016, LV function has remained the same, but RVSP has increased from 25 to 36 mm Hg. Ordering Physician: Ben Pickering Referring Physician: Elijah Fernando Performed By: Stephanie Huber RDCS, RVT
--- NOTE | 2019-03-06 08:14 | NURSING ---
wound photo: right lateral lower leg
[2019-03-06 09:28] VITALS: BP 129/54; PULSE 61; RESP 18; TEMP 36.7; O2SAT 93
[2019-03-06 09:34] VITALS: PULSE 61
[2019-03-06] MEDS: Glucerna Shake 120 ML LIQUID PO ×4 (09:34→21:06)
[2019-03-06] MEDS: Metoprolol(XL)Succ 25 MG Tablet 12.5 MG PO ×2 (09:34→20:56)
[2019-03-06] MEDS: Allopurinol 100 MG Tablet PO (09:35)
[2019-03-06] MEDS: Gabapentin 300 MG Capsule PO ×2 (09:35→16:54)
[2019-03-06] MEDS: Paroxetine 20 MG Tablet 40 MG PO (09:35)
[2019-03-06] MEDS: Senna/Docusate Sodium 1 Tablet 2 TABLET PO ×2 (09:35→20:56)
[2019-03-06] MEDS: Empagliflozin 25 MG Tablet PO (09:35)
[2019-03-06] MEDS: LINAGLIPTIN 5 MG TABLET PO (09:35)
[2019-03-06] MEDS: DICLOFENAC SODIUM 25 MG TABLET.DR PO ×2 (09:35→16:54)
[2019-03-06] MEDS: Furosemide 40 MG Tablet PO ×2 (09:35→16:54)
[2019-03-06] MEDS: Divalproex Sodium 250 MG Tablet 500 MG PO ×2 (09:35→20:55)
[2019-03-06] MEDS: Losartan Potassium 100 MG Tablet PO ×2 (09:35→20:55)
[2019-03-06 09:45] LABS: Bedside Glucose 100 mg/dL (70-110)
--- NOTE | 2019-03-06 09:58 | PCM.PN.ID ---
Subjective: Feeling ok, s/p OR, pain controlled, no fever - Physical Exam General: Alert, Cooperative, No apparent distress Lungs: Clear to auscultation, Normal air movement Cardiovascular: Regular rate, Regular Rhythm Abdomen: Soft, Non Tender, Non-Distended Skin: No rashes, Ulcer/ Wound - wrapped RLE Vital Signs Temp Pulse Resp BP Pulse Ox 98.1 F 61 18 129/54 H 93 03/06/19 09:28 03/06/19 09:34 03/06/19 09:28 03/06/19 09:28 03/06/19 09:28 Oxygen Flow Rate (L/min) 5 Oxygen Delivery Method Room Air Weight: 125.191 kg Body Mass Index (BMI) 41.9 Finger Stick Blood Glucose 89 Intake and Output for Last 24 Hours 03/04/19 03/05/19 03/06/19 23:59 23:59 23:59 Intake Total 1872 1051 / 1051 Balance 1872 1051 / 1051 Laboratory Tests Past 24 Hrs 03/06/19 03/06/19 05:14 05:14 WBC 9.4 RBC 3.87 L Hgb 11.3 L Hct 36.1 L MCV 93.3 MCH 29.2 MCHC 31.3 L RDW 14.8 H RDW Differential 50.3 H Plt Count 436 MPV 8.7 ESR 88 H Sodium 141 Potassium 3.5 Chloride 106 Carbon Dioxide 28.0 Anion Gap 7 BUN 10 Creatinine 0.49 L Estim Creat Clear Calc 63.65 Est GFR (MDRD) Af Amer 212 Est GFR (MDRD) Non-Af 175 BUN/Creatinine Ratio 20.2 H Glucose 82 Calcium 8.7 C-React Prot Ext Range 111.00 H Prealbumin 14.2 L POC Glucose 03/06/19 03/05/19 09:32 20:55 POC Glucose 100 104 Medical Necessity - Tobacco Use Smoking Status: Former smoker Route of nutrition/ use of supplements: [] Nutritional Intake: [] IV Site: [] Carney Catheter: [] - Assessment/Plan Antibiotics: [] Assessment/Plan: [] MRSA bacteremia likely from MRSA infected R tib ORIF surg site - repeat bcx. Cont vanc. Will order echo. Now s/p OR 03/[address] Fernando. Clinically stable, no fever, no wbc. No sign of endocarditis or metastatic infection on exam. Will follow
--- NOTE | 2019-03-06 12:03 | CASEMGMT ---
Social Work Note JENNIFER met with pt, introduced self and role at [facility]. Pt is alert and orientated x3. Pt confirms that he is from TCU and plan is to return. SW explained that pre-cert will need to be obtained again. Pt states understanding. SW placed a call to Desiree in TCU, left her a message to begin pre-cert. Pt will be getting PICC line placed and IV antibiotics. 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
--- NOTE | 2019-03-06 12:25 | NURSING ---
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 Helmet Hat Puncher obtained from TCU and taken to pt's room for to charge cochlear implant battery.
[2019-03-06 12:36] LABS: Bedside Glucose 117 mg/dL (70-110)
[2019-03-06 12:47] LABS: Vancomycin, Trough Level 21.4 ug/mL (5.0-15.0)
--- NOTE | 2019-03-06 13:59 | PN_ITS ---
Subjective: Chief complaint: Medical consultation for postoperative medical management. This is a 73 years old male patient underwent incision, drainage and excisional debridement of nonhealing necrotic MRSA ulcer of the right proximal lateral leg in context of recent history of right tibial plateau fracture status post open reduction and internal fixation and I am seeing this patient in consultation for postoperative medical management. At this time, patient had no specific complaints. His right leg pain is well controlled. He denies any chest pain or shortness of breath. He denies fever chills. He denied cough or sputum production. He denies abdominal pain, nausea or vomiting. His vital signs are stable. His routine blood work was remarkable for hemoglobin of 11.3 g/dL, otherwise normal. He is on IV vancomycin. - Physical Exam General: Alert, Oriented x3, Cooperative, No apparent distress HEENT: Atraumatic, PERRLA, EOMI, Normocephalic Oral: Moist Mucosa, No Gingival or Mucosal Lesions/ Ulcerations Neck: Supple, No JVD, Negative Carotid Bruits, Trachea Midline, Thyroid Normal Size and Texture Lungs: Clear to auscultation, No rhonchi, No wheeze, No rales, Diminished Cardiovascular: Regular rate, Regular Rhythm, Normal S1, Normal S2, No murmurs Abdomen: Bowel Sounds Present, Soft, Non Tender, Non-Distended, No Hepato- splenomegaly, Obese Extremities: No clubbing, No cyanosis, No edema Skin: No rashes, Ulcer/ Wound Lymphatic: No Cervical, Supraclavicular, or Inguinal Adenopathy Neurological: Cranial nerves II-XII grossly intact, Motor Exam 5/5 strength throughout Psych/Mental Status: Normal Affect, Appropriate, Alert and oriented to time, place, person, mood and affect Vital Signs Temp Pulse Resp BP Pulse Ox 98.1 F 61 18 129/54 H 93 03/06/19 09:28 03/06/19 09:34 03/06/19 09:28 03/06/19 09:28 03/06/19 09:28 Oxygen Flow Rate (L/min) 5 Oxygen Delivery Method Room Air Weight: 276 lb Body Mass Index (BMI) 41.9 Finger Stick Blood Glucose 89 Intake and Output for Last 24 Hours 03/04/19 03/05/19 03/06/19 23:59 23:59 23:59 Intake Total 1872 1406 / 1406 Balance 1873 / 1873 1406 / 1406 Microbiology Past 72 Hours 03/05/19 17:14 Gram Stain - Final Tissue - Leg, Right Wound Culture - Preliminary Staphylococcus aureus Laboratory Tests Past 24 Hrs 03/06/19 03/06/19 03/06/19 05:14 05:14 11:28 WBC 9.4 RBC 3.87 L Hgb 11.3 L Hct 36.1 L MCV 93.3 MCH 29.2 MCHC 31.3 L RDW 14.8 H RDW Differential 50.3 H Plt Count 436 MPV 8.7 ESR 88 H Sodium 141 Potassium 3.5 Chloride 106 Carbon Dioxide 28.0 Anion Gap 7 BUN 10 Creatinine 0.49 L Estim Creat Clear Calc 63.65 Est GFR (MDRD) Af Amer 212 Est GFR (MDRD) Non-Af 175 BUN/Creatinine Ratio 20.2 H Glucose 82 Calcium 8.7 C-React Prot Ext Range 111.00 H Prealbumin 14.2 L Vancomycin Trough 21.4 H POC Glucose 03/06/19 03/06/19 03/05/19 12:28 09:32 20:55 POC Glucose 117 H 100 104 Medical Necessity - Tobacco Use Smoking Status: Former smoker Assessment/Plan All Active Problems (Last Reviewed 01/26/19 @ 17:02 by Bib Judge DO) MRSA (methicillin resistant Staphylococcus aureus) infection (Acute) Skin sloughing (Acute) Unspecified fracture of shaft of right tibia, sequela (Acute) MRSA bacteremia (Acute) Fracture of right tibia and fibula (Acute) Knee pain, right (Acute) Preop cardiovascular exam (Acute) Hypokalemia (Resolved) This is a 73 years old male patient underwent incision, drainage and excisional debridement of nonhealing necrotic MRSA infected right proximal lateral leg in context of recent history of traumatic right tibial plateau fracture that was repaired surgically with open reduction and internal fixation and complicated by postoperative MRSA wound infection and nonhealing ulcer. #1 nonhealing necrotic MRSA infected ulcer of the right proximal lateral leg: Status post incision, drainage and excisional debridement, postoperative day 1. Patient is on IV vancomycin. His vital signs are stable, afebrile, no leukocytosis. Wound culture from yesterday reviewed, revealed MRSA. Blood culture sent today. Infectious disease and plastic surgery on the case. Plan to continue same treatment. We will postoperative #2 recent history of traumatic right tibial buckle fracture status post open reduction internal fixation: Wound infection with MRSA, status post incision and drainage as above. Patient is on IV vancomycin as above. Plan as above. #3 recent history of MRSA bacteremia: Repeat blood culture on March 04 showed no growth in 48 hours. Patient is back on IV vancomycin, repeat culture done today and it is pending. #4 type 2 diabetes mellitus: Blood sugar has been under fair control, hemoglobin A1c was 6.8 around 1 month ago. Blood sugar has been stable. Continue Lantus, Tradjenta, start insulin sliding scale and Accu-Cheks before meals at bedtime. #5 hypertension: Blood pressure stable, continue current medications. #6 hypothyroidism: Continue levothyroxine. #7 chronic diastolic CHF: Stable, compensated, continue Lasix, losartan and metoprolol. #8 hyperlipidemia: He is not on statins. #9 chronic back pain/lumbar spinal stenosis/neuropathic pain: Continue Neurontin, diclofenac and OxyIR. #10 gout: Continue allopurinol. #11 depression: Continue trazodone and Paxil. #12 DVT prophylaxis: Subcu Lovenox. This note was generated with [employer] dictation software. It may contain incorrect words, spelling, and punctuation that were not noted in checking the note before signing. Code Visit Inpatient E&M: 53521 Subs Hosp L2
--- NOTE | 2019-03-06 14:06 | PCM.RX.CS ---
Consult Pharmacy has been consulted to manage selected antiobiotic: Vancomycin Type of Consult: Follow-up Prior Doses of Antibiotics Received/Current Regimen: Vancomycin 1500mg q12h Labs: Sodium 141 mmol/L (136-145) 03/06/19 05:14 Potassium 3.5 mmol/L (3.5-5.1) 03/06/19 05:14 Chloride 106 mmol/L (98-107) 03/06/19 05:14 Carbon Dioxide 28.0 mmol/L (21.0-32.0) 03/06/19 05:14 Anion Gap 7 (5-15) 03/06/19 05:14 BUN 10 mg/dL (7-18) 03/06/19 05:14 Creatinine 0.49 mg/dL (0.70-1.30) L 03/06/19 05:14 Est GFR (MDRD) Af Amer 212 mL/min (>60) 03/06/19 05:14 Est GFR (MDRD) Non-Af 175 mL/min (>60) 03/06/19 05:14 BUN/Creatinine Ratio 20.2 RATIO (10-20) H 03/06/19 05:14 Glucose 82 mg/dL (74-106) 03/06/19 05:14 Vancomycin Trough 21.4 ug/mL (5.0-15.0) H 03/06/19 11:28 Microbiology: Microbiology 03/05/19 17:14 Tissue - Leg, Right Gram Stain - Final 03/05/19 17:14 Tissue - Leg, Right Wound Culture - Preliminary Staphylococcus aureus Weight used for dosin kg - lean body weight Goal Trough: 15-20 mcg/mL Pharmacy Plan for Drug Dosing: Goal trough for the pt is 15-20. Pt was previously on 1750mg q12h and the trough came back at ~21. Dose was changed to 1500mg q12h and the trough results came back at 21.4. To avoid q18h dosing, the dose will be based on lean body weight instead of actual body weight and the srcr will be adjusted from 0.45 to 0.8 due to pt's age. The new calculated dose is 1gm q12h, which is calculated to give an estimated trough of 17. The new dosing schedule will be delayed 4 hours from the old schedule to give the pt time to clear the 1500mg dose. A trough will be drawn 03/08/19 at 1530. Pharmacy Service will continue to monitor and adjust dosing as required. Follow-Up Labs: Trough Vancomycin - 03/08/19 at 1530
[2019-03-06 14:32] VITALS: BP 147/65; PULSE 69; RESP 18; TEMP 36.9; O2SAT 92
[2019-03-06] MEDS: Lactated Ringers 1,000 ML 60 ML IV (16:54)
--- NOTE | 2019-03-06 17:31 | PCM.PN.SRG ---
Subjective: Postop #1 Patient is resting comfortably. - Physical Exam General: Alert, Oriented x3 HEENT: PERRLA, EOMI Oral: Moist Mucosa Neck: Supple Abdomen: Soft, Non-Distended Skin: Ulcer/ Wound - the right proximal lateral leg wound is stable Minor oozing noted in the debrided muscle that was controlled with compression. The wound was redressed with Betadine gauze followed by an alexia wrap. Neurological: Cranial nerves II-XII grossly intact Psych/Mental Status: Normal Affect, Appropriate Vital Signs Temp Pulse Resp BP Pulse Ox 98.4 F 69 18 147/65 H 92 03/06/19 14:32 03/06/19 14:32 03/06/19 14:32 03/06/19 14:32 03/06/19 14:32 Oxygen Flow Rate (L/min) 5 Oxygen Delivery Method Room Air Weight: 275 lb 15.947 oz Body Mass Index (BMI) 41.9 Finger Stick Blood Glucose 89 Intake and Output for Last 24 Hours 03/04/19 03/05/19 03/06/19 23:59 23:59 23:59 Intake Total 1872 / 1873 2065 / 2065 Output Total 100 / 100 Balance 187 / 1871965 / 1965 Microbiology Past 72 Hours 03/05/19 17:14 Gram Stain - Final Tissue - Leg, Right Wound Culture - Preliminary Staphylococcus aureus Laboratory Tests Past 24 Hrs 03/06/19 03/06/19 03/06/19 05:14 05:14 11:28 WBC 9.4 RBC 3.87 L Hgb 11.3 L Hct 36.1 L MCV 93.3 MCH 29.2 MCHC 31.3 L RDW 14.8 H RDW Differential 50.3 H Plt Count 436 MPV 8.7 ESR 88 H Sodium 141 Potassium 3.5 Chloride 106 Carbon Dioxide 28.0 Anion Gap 7 BUN 10 Creatinine 0.49 L Estim Creat Clear Calc 63.65 Est GFR (MDRD) Af Amer 212 Est GFR (MDRD) Non-Af 175 BUN/Creatinine Ratio 20.2 H Glucose 82 Calcium 8.7 C-React Prot Ext Range 111.00 H Prealbumin 14.2 L Vancomycin Trough 21.4 H POC Glucose 03/06/19 03/06/19 03/05/19 12:28 09:32 20:55 POC Glucose 117 H 100 104 Medical Necessity - Tobacco Use Smoking Status: Former smoker Assessment/Plan All Active Problems (Last Reviewed 01/26/19 @ 17:02 by Bib Judge DO) MRSA (methicillin resistant Staphylococcus aureus) infection (Acute) Skin sloughing (Acute) Unspecified fracture of shaft of right tibia, sequela (Acute) MRSA bacteremia (Acute) Fracture of right tibia and fibula (Acute) Knee pain, right (Acute) Preop cardiovascular exam (Acute) Hypokalemia (Resolved) 1. 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 2. Recent history of ORIF right tibial plateau fracture. 3. MRSA. 4. MRSA bacteremia. 5. Diabetes mellitus. 6. Status right knee replacement, medial compartment. 7. Fall. 8. Exposed hardware right proximal lateral leg from tibial plateau fracture repair. 9. s/p surgical preparation right proximal lateral leg with incision and drainage and excisional debridement nonhealing necrotic MRSA ulcer with exposed hardware (105 cm2). Wound is stable. Minor oozing seen on the debrided muscle controlled with compression. Redressed the wound with Betadine and gauze. Operative culture shows Staphylococcus aureus. Preop it showed MRSA. Continue Vancomycin. Prealbumin was 14.2. Encourage nutritional supplementation with protein to help the healing process. Discussed with Dr. Rutledge. He will evaluate the exposed hardware in a few days when he returns from being out of town. Discussed with the patient's , Mayda. Told her these wounds are difficult to heal with the exposed hardware. Either leave the hardware in until the bones are healed and if not healing properly an external fixator may be necessary after removing the hardware. Because of nonhealing at that point, would proceed with a partial ostectomy for osteomyelitis. Bone grafts may be necessary. Soft tissue coverage would take place after the bone appears solid and healed and is negative for osteomyelitis. If the bones heal properly, then remove the hardware and check the bone for osteomyelitis. When it is negative then proceed with soft tissue coverage. If bony healing becomes problematic, the last resort option would be an above knee amputation. Patient and his voice understanding.
[2019-03-06 20:35] VITALS: BP 169/76; PULSE 65; RESP 18; TEMP 37.1; O2SAT 94
[2019-03-06] MEDS: MELATONIN 10 MG TABLET PO (20:55)
[2019-03-06 20:56] VITALS: PULSE 65
[2019-03-06 20:56] LABS: Bedside Glucose 144 mg/dL (70-110)
[2019-03-06] MEDS: traZODone 50 MG Tablet PO (20:56)
[2019-03-06] MEDS: Acetaminophen 500 MG Tablet 1000 MG PO (20:57)
[2019-03-07] VITALS (7 sets, daily range): BP systolic 164–191; BP diastolic 82–94; PULSE 52–77; RESP 16–18; TEMP 36.4–37.1; O2SAT 94–95
[2019-03-07 00:10] LABS: Bedside Glucose 138 mg/dL (70-110)
[2019-03-07] MEDS: oxyCODONE 5 MG Tablet 10 MG PO ×3 (00:15→20:30)
[2019-03-07] MEDS: Levothyroxine 112 MCG Tablet PO (05:20)
[2019-03-07] MEDS: Enoxaparin 40 MG/0.4 ML Syringe SC (05:21)
[2019-03-07 06:20] LABS: Bedside Glucose 138 mg/dL (70-110)
[2019-03-07] MEDS: DICLOFENAC SODIUM 25 MG TABLET.DR PO ×2 (10:16→17:51)
[2019-03-07] MEDS: Senna/Docusate Sodium 1 Tablet 2 TABLET PO ×2 (10:16→22:35)
[2019-03-07] MEDS: Paroxetine 20 MG Tablet 40 MG PO (10:16)
[2019-03-07] MEDS: Allopurinol 100 MG Tablet PO (10:16)
[2019-03-07] MEDS: Furosemide 40 MG Tablet PO ×2 (10:16→17:52)
[2019-03-07] MEDS: LINAGLIPTIN 5 MG TABLET PO (10:16)
[2019-03-07] MEDS: Gabapentin 300 MG Capsule PO ×2 (10:16→17:51)
[2019-03-07] MEDS: Divalproex Sodium 250 MG Tablet 500 MG PO ×2 (10:17→22:35)
[2019-03-07] MEDS: Glucerna Shake 120 ML LIQUID PO ×3 (10:17→22:35)
[2019-03-07] MEDS: Metoprolol(XL)Succ 25 MG Tablet 12.5 MG PO ×2 (10:17→23:17)
[2019-03-07] MEDS: Losartan Potassium 100 MG Tablet PO ×2 (10:17→22:35)
[2019-03-07] MEDS: Menthol/Lanolin/Calamine/Znox 113 GM Tube 1 APPLIC TOPICAL ×2 (10:17→22:56)
[2019-03-07] MEDS: Empagliflozin 25 MG Tablet PO (10:19)
--- NOTE | 2019-03-07 10:23 | PN_ITS ---
Subjective: Chief complaint: Medical consultation for postoperative medical management. Patient seen and examined. No acute events overnight. Today, he denies any significant complaints. Reported minimal right leg discomfort, no real pain. Denies fever chills. His blood pressure is elevated, other vital signs stable. - Physical Exam General: Alert, Oriented x3, Cooperative, No apparent distress HEENT: Atraumatic, PERRLA, EOMI, Normocephalic Oral: Moist Mucosa, No Gingival or Mucosal Lesions/ Ulcerations Neck: Supple, No JVD, Negative Carotid Bruits, Trachea Midline, Thyroid Normal Size and Texture Lungs: Clear to auscultation, No rhonchi, No wheeze, No rales, Diminished Cardiovascular: Regular rate, Regular Rhythm, Normal S1, Normal S2, PMI Normal Abdomen: Bowel Sounds Present, Soft, Non Tender, Non-Distended, No Hepato- splenomegaly Extremities: No clubbing, No cyanosis, No edema Skin: No rashes, No breakdown Lymphatic: No Cervical, Supraclavicular, or Inguinal Adenopathy Neurological: Cranial nerves II-XII grossly intact, Neuro grossly intact Psych/Mental Status: Normal Affect, Appropriate, Alert and oriented to time, place, person, mood and affect Vital Signs Temp Pulse Resp BP Pulse Ox 97.5 F L 52 L 18 191/83 H 94 03/07/19 08:09 03/07/19 10:17 03/07/19 08:09 03/07/19 10:17 03/07/19 08:09 Oxygen Flow Rate (L/min) 5 Oxygen Delivery Method Room Air Weight: 275 lb 15.947 oz Body Mass Index (BMI) 41.9 Finger Stick Blood Glucose 89 Intake and Output for Last 24 Hours 03/05/19 03/06/19 03/07/19 23:59 23:59 23:59 Intake Total 1872 / 1873 2066 / 2066 1627 / 1627 Output Total 100 / 100 1100 / 1100 Balance 1872 / 1872 1965 / 1965 527 / 527 Microbiology Past 72 Hours 03/05/19 17:14 Gram Stain - Final Tissue - Leg, Right Wound Culture - Final Meth. resistant Staph. aureus Laboratory Tests Past 24 Hrs 03/06/19 11:28 Vancomycin Trough 21.4 H POC Glucose 03/07/19 03/06/19 03/06/19 06:14 20:43 16:53 POC Glucose 138 H 144 H 138 H 03/06/19 12:28 POC Glucose 117 H Medical Necessity - Tobacco Use Smoking Status: Former smoker Assessment/Plan All Active Problems (Last Reviewed 01/26/19 @ 17:02 by Bib Judge DO) MRSA (methicillin resistant Staphylococcus aureus) infection (Acute) Skin sloughing (Acute) Unspecified fracture of shaft of right tibia, sequela (Acute) MRSA bacteremia (Acute) Fracture of right tibia and fibula (Acute) Knee pain, right (Acute) Preop cardiovascular exam (Acute) Hypokalemia (Resolved) This is a 73 years old male patient underwent incision, drainage and excisional debridement of nonhealing necrotic MRSA infected right proximal lateral leg in context of recent history of traumatic right tibial plateau fracture that was repaired surgically with open reduction and internal fixation and complicated by postoperative MRSA wound infection and nonhealing ulcer. #1 nonhealing necrotic MRSA infected ulcer of the right proximal lateral leg: Status post incision, drainage and excisional debridement, postoperative day 2. Patient is on IV vancomycin. His vital signs are stable, afebrile, no leukocytosis. Wound culture from yesterday reviewed, revealed MRSA. Blood culture is pending. Infectious disease and plastic surgery on the case. Plan to continue same treatment. #2 recent history of traumatic right tibial buckle fracture status post open reduction internal fixation: Wound infection with MRSA, status post incision and drainage as above. Remained on IV vancomycin as above. Plan as above. #3 recent history of MRSA bacteremia: Repeat blood culture on March 04 showed no growth in 48 hours. Patient is back on IV vancomycin, repeat culture is pending as above. #4 type 2 diabetes mellitus: Blood sugar has been under fair control, hemoglobin A1c was 6.8 around 1 month ago. Blood sugar has been stable. Continue Lantus, Tradjenta, start insulin sliding scale and Accu-Cheks before meals at bedtime. #5 hypertension: Blood pressure is elevated today, continue losartan and metoprolol, start IV hydralazine as needed #6 hypothyroidism: Continue levothyroxine. #7 chronic diastolic CHF: Stable, compensated, continue Lasix, losartan and metoprolol. #8 hyperlipidemia: He is not on statins. #9 chronic back pain/lumbar spinal stenosis/neuropathic pain: Continue Neurontin, diclofenac and OxyIR. #10 gout: Continue allopurinol. #11 depression: Continue trazodone and Paxil. #12 DVT prophylaxis: Subcu Lovenox. This note was generated with [employer] dictation software. It may contain incorrect words, spelling, and punctuation that were not noted in checking the note before signing. Code Visit Inpatient E&M: 47753 Subs Hosp L2
[2019-03-07] MEDS: Insulin Lispro 100 UNIT/ML INSULN.PEN SC ×3 (11:47→22:56)
[2019-03-07] MEDS: Silver Nitrate (BKC) TOPICAL (11:49)
[2019-03-07 11:56] LABS: Bedside Glucose 195 mg/dL (70-110)
--- NOTE | 2019-03-07 12:36 | NURSING ---
SPOKE WITH DR ORTEGA REGARDING PTS MIDLINE LEAKING. ORDERED PICC PLACEMENT DUE TO AIRCRAFT NAVIGATOR ANTIBIOTICS.
--- NOTE | 2019-03-07 12:49 | PCM.PN.SRG ---
Subjective: Postop #2 Patient is resting comfortably. - Physical Exam General: Alert, Oriented x3 HEENT: PERRLA, EOMI Oral: Moist Mucosa Neck: Supple Abdomen: Soft, Non-Distended Skin: Ulcer/ Wound - the right proximal lateral leg wound is stable Minor oozing noted in the debrided muscle that was controlled with compression and silver nitrate chemical cauterization. Muscle is pink and viable without further evidence of necrosis. The wound was redressed with adaptic and Betadine gauze followed by an alexia wrap. Neurological: Cranial nerves II-XII grossly intact Psych/Mental Status: Normal Affect, Appropriate Vital Signs Temp Pulse Resp BP Pulse Ox 97.5 F L 52 L 18 191/83 H 94 03/07/19 08:09 03/07/19 10:17 03/07/19 08:09 03/07/19 10:17 03/07/19 08:09 Oxygen Flow Rate (L/min) 5 Oxygen Delivery Method Room Air Weight: 275 lb 15.947 oz Body Mass Index (BMI) 41.9 Finger Stick Blood Glucose 89 Intake and Output for Last 24 Hours 03/05/19 03/06/19 03/07/19 23:59 23:59 23:59 Intake Total 1873 / 1873 2066 / 2066 2407 / 2407 Output Total 100 / 100 1250 / 1250 Balance 1872 / 1871965 / 1965 1157 / 1157 Microbiology Past 72 Hours 03/05/19 17:14 Gram Stain - Final Tissue - Leg, Right Wound Culture - Final Meth. resistant Staph. aureus POC Glucose 03/07/19 03/07/19 03/06/19 11:43 06:14 20:43 POC Glucose 195 H 138 H 144 H 03/06/19 16:53 POC Glucose 138 H Medical Necessity - Tobacco Use Smoking Status: Former smoker Assessment/Plan All Active Problems (Last Reviewed 01/26/19 @ 17:02 by Bib Judge DO) MRSA (methicillin resistant Staphylococcus aureus) infection (Acute) Skin sloughing (Acute) Unspecified fracture of shaft of right tibia, sequela (Acute) MRSA bacteremia (Acute) Fracture of right tibia and fibula (Acute) Knee pain, right (Acute) Preop cardiovascular exam (Acute) Hypokalemia (Resolved) 1. 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 2. Recent history of ORIF right tibial plateau fracture. 3. MRSA. 4. MRSA bacteremia. 5. Diabetes mellitus. 6. Status right knee replacement, medial compartment. 7. Fall. 8. Exposed hardware right proximal lateral leg from tibial plateau fracture repair. 9. s/p surgical preparation right proximal lateral leg with incision and drainage and excisional debridement nonhealing necrotic MRSA ulcer with exposed hardware (105 cm2). Wound is stable. Minor oozing seen on the debrided muscle controlled with compression and silver nitrate chemical cauterization. Redressed the wound with Betadine and adaptic and gauze. Operative culture shows MRSA. Continue Vancomycin. Prealbumin was 14.2. Encourage nutritional supplementation with protein to help the healing process. Discussed with Dr. Rutledge. He will evaluate the exposed hardware in a few days when he returns from being out of town. Discussed with the patient's , Mayda. Told her these wounds are difficult to heal with the exposed hardware. Either leave the hardware in until the bones are healed and if not healing properly an external fixator may be necessary after removing the hardware. Because of nonhealing at that point, would proceed with a partial ostectomy for osteomyelitis. Bone grafts may be necessary. Soft tissue coverage would take place after the bone appears solid and healed and is negative for osteomyelitis. If the bones heal properly, then remove the hardware and check the bone for osteomyelitis. When it is negative then proceed with soft tissue coverage. If bony healing becomes problematic, the last resort option would be an above knee amputation. Patient and his voice understanding.
--- NOTE | 2019-03-07 13:46 | PN.ID_ITS ---
Subjective: Feeling ok, pain controlled, no fever. - Physical Exam General: Alert, Cooperative, No apparent distress Lungs: Clear to auscultation, Normal air movement Cardiovascular: Regular rate, Regular Rhythm Abdomen: Soft, Non Tender, Non-Distended Skin: Ulcer/ Wound - leg wrapped Vital Signs Temp Pulse Resp BP Pulse Ox 97.5 F L 52 L 18 191/83 H 94 03/07/19 08:09 03/07/19 10:17 03/07/19 08:09 03/07/19 10:17 03/07/19 08:09 Oxygen Flow Rate (L/min) 5 Oxygen Delivery Method Room Air Weight: 125.19 kg Body Mass Index (BMI) 41.9 Finger Stick Blood Glucose 89 Intake and Output for Last 24 Hours 03/05/19 03/06/19 03/07/19 23:59 23:59 23:59 Intake Total 1872 / 1872 2065 / 2065 2407 / 2407 Output Total 100 / 100 1250 / 1250 Balance 1872 / 1872 1965 / 1965 1157 / 1157 Microbiology Past 72 Hours 03/05/19 17:14 Gram Stain - Final Tissue - Leg, Right Wound Culture - Final Meth. resistant Staph. aureus POC Glucose 03/07/19 03/07/19 03/06/19 11:43 06:14 20:43 POC Glucose 195 H 138 H 144 H 03/06/19 16:53 POC Glucose 138 H Medical Necessity - Tobacco Use Smoking Status: Former smoker Route of nutrition/ use of supplements: [] Nutritional Intake: [] IV Site: [] Carney Catheter: [] - Assessment/Plan Antibiotics: [] Assessment/Plan: [] MRSA bacteremia likely from MRSA infected R tib ORIF surg site - repeat bcx. Cont vanc. No veg seen on echo. Now s/p OR 03/[address] Fernando. Clinically stable, no fever, no wbc. No sign of endocarditis or metastatic infection on exam. Infection in wound extended down to hardware, now exposed. Will add rifampin for biofilm penetration. Bcx neg since 03/04. Ok for picc. Plan will be for 6 weeks of vanc and po rifampin and the halfway po abx. Will follow
--- NOTE | 2019-03-07 16:00 | CASEMGMT ---
Social Work Note Green sheet on pt's chart in the event pre-cert is obtained. Plan: TCU pending pre-cert [employer], [employer]
--- NOTE | 2019-03-07 16:17 | PCM.PN.BLA ---
Progress Note came in to see jennifer today. he is in good spirits. s/p I&D right leg from wound breakdown and subsequent infection of surgical site. appreciate plastic surgery input on wound management. 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 we did discuss that if this can't be treated there is a possibility that it could be limb threatening. he voiced an understanding. at this time would continue with wound care and abx management as planned. if necessary the plate can be removed in the future if compromising wound healing or if necessary for soft tissue coverage. would prefer to wait until 3 months from initial surgery or adequate fracture healing if possible. please call with any questions or coordination of care. [phone]. SAW
--- NOTE | 2019-03-07 16:23 | PN_ITS ---
Progress Note came in to see jennifer today. he is in good spirits. s/p I&D right leg from wound breakdown and subsequent infection of surgical site. appreciate plastic surgery input on wound management. 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 we did discuss that if this can't be treated there is a possibility that it could be limb threatening. he voiced an understanding. at this time would continue with wound care and abx management as planned. if necessary the plate can be removed in the future if compromising wound healing or if necessary for soft tissue coverage. would prefer to wait until 3 months from initial surgery or adequate fracture healing if possible. please call with any questions or coordination of care. [phone]. SAW
[2019-03-07 16:31] LABS: Bedside Glucose 163 mg/dL (70-110)
[2019-03-07] MEDS: 0.9% NaCl Peripheral Flush Adult/Peds IV ×2 (17:17→17:52)
[2019-03-07] MEDS: hydrALAZINE 20 MG/ML Vial 10 MG IV (17:52)
[2019-03-07] MEDS: traZODone 50 MG Tablet PO (22:35)
[2019-03-07] MEDS: MELATONIN 10 MG TABLET PO (22:35)
[2019-03-07] MEDS: rifAMPin 300 MG Capsule PO (22:35)
[2019-03-07 23:00] LABS: Bedside Glucose 157 mg/dL (70-110)
[2019-03-08] VITALS (8 sets, daily range): BP systolic 111–158; BP diastolic 71–77; PULSE 51–82; RESP 16–18; TEMP 36.7–36.9; O2SAT 93–95
[2019-03-08] MEDS: Levothyroxine 112 MCG Tablet PO (05:30)
[2019-03-08] MEDS: Enoxaparin 40 MG/0.4 ML Syringe SC (05:31)
[2019-03-08] MEDS: Insulin Lispro 100 UNIT/ML INSULN.PEN SC ×4 (06:41→21:30)
[2019-03-08 07:11] LABS: Bedside Glucose 167 mg/dL (70-110)
[2019-03-08] MEDS: Ondansetron 4 MG/2 ML Vial IV (08:18)
--- NOTE | 2019-03-08 09:27 | PN_ITS ---
Subjective: Chief complaint: Follow-up after consultation for postoperative medical management. Patient seen and examined. No acute events overnight. Denied any significant complaints, pain is well controlled. His vital signs are stable. - Physical Exam General: Alert, Oriented x3, Cooperative, No apparent distress HEENT: Atraumatic, PERRLA, EOMI, Normocephalic Oral: Moist Mucosa, No Gingival or Mucosal Lesions/ Ulcerations Neck: Supple, No JVD, Negative Carotid Bruits, Trachea Midline, Thyroid Normal Size and Texture Lungs: Clear to auscultation, No rhonchi, No wheeze, No rales, Diminished Cardiovascular: Regular rate, Regular Rhythm, Normal S1, Normal S2, PMI Normal Abdomen: Bowel Sounds Present, Soft, Non Tender, Non-Distended, No Hepato- splenomegaly, Obese Extremities: No clubbing, No cyanosis, No edema Skin: No rashes, No breakdown Lymphatic: No Cervical, Supraclavicular, or Inguinal Adenopathy Neurological: Cranial nerves II-XII grossly intact, Neuro grossly intact Psych/Mental Status: Normal Affect, Appropriate, Alert and oriented to time, place, person, mood and affect Vital Signs Temp Pulse Resp BP Pulse Ox 98.2 F 51 L 18 135/71 H 93 03/08/19 08:14 03/08/19 08:14 03/08/19 08:14 03/08/19 08:14 03/08/19 08:14 Oxygen Flow Rate (L/min) 5 Oxygen Delivery Method Room Air Weight: 275 lb 15.947 oz Body Mass Index (BMI) 41.9 Finger Stick Blood Glucose 89 Intake and Output for Last 24 Hours 03/06/19 03/07/19 03/08/19 23:59 23:59 23:59 Intake Total 2065 / 2065 3307 / 3307 939 / 939 Output Total 100 / 100 1250 / 1250 900 / 900 Balance 1965 / 1965 39 / 39 Microbiology Past 72 Hours 03/05/19 17:14 Gram Stain - Final Tissue - Leg, Right Wound Culture - Final Meth. resistant Staph. aureus POC Glucose 03/08/19 03/07/19 03/07/19 06:38 22:54 16:22 POC Glucose 167 H 157 H 163 H 03/07/19 11:43 POC Glucose 195 H Medical Necessity - Tobacco Use Smoking Status: Former smoker Assessment/Plan All Active Problems (Last Reviewed 01/26/19 @ 17:02 by Bib Judge DO) MRSA (methicillin resistant Staphylococcus aureus) infection (Acute) Skin sloughing (Acute) Unspecified fracture of shaft of right tibia, sequela (Acute) MRSA bacteremia (Acute) Fracture of right tibia and fibula (Acute) Knee pain, right (Acute) Preop cardiovascular exam (Acute) Hypokalemia (Resolved) This is a 73 years old male patient underwent incision, drainage and excisional debridement of nonhealing necrotic MRSA infected right proximal lateral leg in context of recent history of traumatic right tibial plateau fracture that was repaired surgically with open reduction and internal fixation and complicated by postoperative MRSA wound infection and nonhealing ulcer. #1 nonhealing necrotic MRSA infected ulcer of the right proximal lateral leg: Status post incision, drainage and excisional debridement, postoperative day 3. Remained on IV vancomycin. His vital signs are stable, afebrile, no leukocytosis. Wound culture revealed MRSA. Blood culture is pending. Infectious disease and plastic surgery on the case. Plan to continue same treatment. #2 recent history of traumatic right tibial plateau fracture status post open reduction internal fixation: Wound infection with MRSA, status post incision and drainage as above. Remained on IV vancomycin as above. Plan as above. Orthopedic surgery consulted because of exposed hardware. #3 recent history of MRSA bacteremia: Repeat blood culture on March 04 showed no growth in 48 hours. Patient is back on IV vancomycin, repeat culture is pending as above. #4 type 2 diabetes mellitus: Blood sugar has been stable, hemoglobin A1c was 6.8 around 1 month ago. Blood sugar has been stable. Continue Lantus, Tradjenta, start insulin sliding scale and Accu-Cheks before meals at bedtime. #5 hypertension: Blood pressure under better control, continue losartan and metoprolol, continue IV hydralazine as needed #6 hypothyroidism: Continue levothyroxine. #7 chronic diastolic CHF: Stable, compensated, continue Lasix, losartan and metoprolol. #8 hyperlipidemia: He is not on statins. #9 chronic back pain/lumbar spinal stenosis/neuropathic pain: Continue Neurontin, diclofenac and OxyIR. #10 gout: Continue allopurinol. #11 depression: Continue trazodone and Paxil. #12 DVT prophylaxis: Subcu Lovenox. This note was generated with [email or web address] software. It may contain incorrect words, spelling, and punctuation that were not noted in checking the note before signing. Code Visit Inpatient E&M: 17396 Subs Hosp L2
[2019-03-08] MEDS: Paroxetine 20 MG Tablet 40 MG PO (10:16)
[2019-03-08] MEDS: Divalproex Sodium 250 MG Tablet 500 MG PO ×2 (10:16→21:38)
[2019-03-08] MEDS: Gabapentin 300 MG Capsule PO ×2 (10:16→17:22)
[2019-03-08] MEDS: Senna/Docusate Sodium 1 Tablet 2 TABLET PO ×2 (10:16→21:29)
[2019-03-08] MEDS: rifAMPin 300 MG Capsule PO ×2 (10:16→21:30)
[2019-03-08] MEDS: Losartan Potassium 100 MG Tablet PO ×2 (10:16→21:29)
[2019-03-08] MEDS: Metoprolol(XL)Succ 25 MG Tablet 12.5 MG PO ×2 (10:17→21:29)
[2019-03-08] MEDS: LINAGLIPTIN 5 MG TABLET PO (10:17)
[2019-03-08] MEDS: Allopurinol 100 MG Tablet PO (10:17)
[2019-03-08] MEDS: Furosemide 40 MG Tablet PO ×2 (10:20→17:22)
[2019-03-08] MEDS: DICLOFENAC SODIUM 25 MG TABLET.DR PO ×2 (10:20→17:22)
[2019-03-08] MEDS: Menthol/Lanolin/Calamine/Znox 113 GM Tube 1 APPLIC TOPICAL ×2 (10:23→21:29)
[2019-03-08] MEDS: Empagliflozin 25 MG Tablet PO (12:12)
[2019-03-08 13:10] LABS: Bedside Glucose 176 mg/dL (70-110)
--- NOTE | 2019-03-08 13:19 | PCM.PN.SRG ---
Subjective: Postop #3 Patient is resting comfortably. - Physical Exam General: Alert, Oriented x3 HEENT: PERRLA, EOMI Oral: Moist Mucosa Neck: Supple Abdomen: Soft, Non-Distended Skin: Ulcer/ Wound - the right proximal lateral leg wound is stable Muscle is pink and viable without further evidence of necrosis. The wound was redressed with adaptic and Betadine gauze followed by an alexia wrap. Neurological: Cranial nerves II-XII grossly intact Psych/Mental Status: Normal Affect, Appropriate Vital Signs Temp Pulse Resp BP Pulse Ox 98.2 F 60 18 111/72 93 03/08/19 08:14 03/08/19 10:17 03/08/19 08:14 03/08/19 10:17 03/08/19 08:14 Oxygen Flow Rate (L/min) 5 Oxygen Delivery Method Room Air Weight: 275 lb 15.947 oz Body Mass Index (BMI) 41.9 Finger Stick Blood Glucose 89 Intake and Output for Last 24 Hours 03/06/19 03/07/19 03/08/19 23:59 23:59 23:59 Intake Total 2066 / 2066 3307 / 3307 1793 / 1793 Output Total 100 / 100 1250 / 1250 900 / 900 Balance 1965 / 1965 2056 / 2056 893 / 893 Microbiology Past 72 Hours 03/05/19 17:14 Gram Stain - Final Tissue - Leg, Right Wound Culture - Final Meth. resistant Staph. aureus Anaerobic Culture - Preliminary POC Glucose 03/08/19 03/08/19 03/07/19 12:11 06:38 22:54 POC Glucose 176 H 167 H 157 H 03/07/19 16:22 POC Glucose 163 H Medical Necessity - Tobacco Use Smoking Status: Former smoker Assessment/Plan All Active Problems (Last Reviewed 01/26/19 @ 17:02 by Bib Judge DO) MRSA (methicillin resistant Staphylococcus aureus) infection (Acute) Unspecified fracture of shaft of right tibia, sequela (Acute) MRSA bacteremia (Acute) Fracture of right tibia and fibula (Acute) Hypokalemia (Resolved) 1. 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 2. Recent history of ORIF right tibial plateau fracture. 3. MRSA. 4. MRSA bacteremia. 5. Diabetes mellitus. 6. Status right knee replacement, medial compartment. 7. Fall. 8. Exposed hardware right proximal lateral leg from tibial plateau fracture repair. 9. s/p surgical preparation right proximal lateral leg with incision and drainage and excisional debridement nonhealing necrotic MRSA ulcer with exposed hardware (105 cm2). Wound is stable. Debrided muscle is pink and viable. Redressed the wound with Betadine and adaptic and gauze. Operative culture shows MRSA. Continue Vancomycin. Prealbumin was 14.2. Encourage nutritional supplementation with protein to help the healing process. Discussed with Dr. Rutledge. Ideally he would like to wait a couple of months to see if there is reasonable healing to remove the hardware. If the bones heal properly, then remove the hardware and check the bone for osteomyelitis. When it is negative then proceed with soft tissue coverage. If bony healing becomes problematic, the last resort option would be an above knee amputation. Patient and his voice understanding.
[2019-03-08] MEDS: Glucerna Shake 120 ML LIQUID PO ×3 (13:23→21:31)
[2019-03-08 16:41] LABS: Bedside Glucose 174 mg/dL (70-110)
[2019-03-08 17:02] LABS: Vancomycin, Trough Level 19.6 ug/mL (5.0-15.0)
--- NOTE | 2019-03-08 19:09 | PCM.RX.CS ---
Consult Pharmacy has been consulted to manage selected antiobiotic: Vancomycin Type of Consult: Follow-up Suspected Infection: Sepsis Prior Doses of Antibiotics Received/Current Regimen: 1 gm iv q12h Labs: Sodium 141 mmol/L (136-145) 03/06/19 05:14 Potassium 3.5 mmol/L (3.5-5.1) 03/06/19 05:14 Chloride 106 mmol/L (98-107) 03/06/19 05:14 Carbon Dioxide 28.0 mmol/L (21.0-32.0) 03/06/19 05:14 Anion Gap 7 (5-15) 03/06/19 05:14 BUN 10 mg/dL (7-18) 03/06/19 05:14 Creatinine 0.49 mg/dL (0.70-1.30) L 03/06/19 05:14 Est GFR (MDRD) Af Amer 212 mL/min (>60) 03/06/19 05:14 Est GFR (MDRD) Non-Af 175 mL/min (>60) 03/06/19 05:14 BUN/Creatinine Ratio 20.2 RATIO (10-20) H 03/06/19 05:14 Glucose 82 mg/dL (74-106) 03/06/19 05:14 Vancomycin Trough 19.6 ug/mL (5.0-15.0) H 03/08/19 15:14 Microbiology: Microbiology 03/06/19 09:28 Blood Culture (Wb) - Anticubital Right Blood Culture - Preliminary No growth in 48 hours. 03/05/19 17:14 Tissue - Leg, Right Gram Stain - Final 03/05/19 17:14 Tissue - Leg, Right Wound Culture - Final Meth. resistant Staph. aureus 03/05/19 17:14 Tissue - Leg, Right Anaerobic Culture - Preliminary Weight used for dosin kg Estimated Creatinine Clearance: ~64ml/min Goal Trough: 15-20 mcg/mL Pharmacy Plan for Drug Dosing: Vancomycin trough of .20.19 was 19.6 (goal range 15-20 mcg/ml). Will continue same regimen and get another trough level before 4th dose. Pharmacy Service will continue to monitor and adjust dosing as required. Follow-Up Labs: Trough Vancomycin - 4.22.19 @0430 before 0500 dose
[2019-03-08] MEDS: traZODone 50 MG Tablet PO (21:30)
[2019-03-08] MEDS: MELATONIN 10 MG TABLET PO (21:30)
[2019-03-08 22:25] LABS: Bedside Glucose 173 mg/dL (70-110)
[2019-03-09 02:59] VITALS: BP 142/87; PULSE 67; RESP 18; TEMP 36.8; O2SAT 94
[2019-03-09] MEDS: Levothyroxine 112 MCG Tablet PO (05:08)
[2019-03-09] MEDS: Enoxaparin 40 MG/0.4 ML Syringe SC (05:08)
[2019-03-09 06:41] LABS: Bedside Glucose 139 mg/dL (70-110)
[2019-03-09] MEDS: Allopurinol 100 MG Tablet PO (08:27)
[2019-03-09] MEDS: Gabapentin 300 MG Capsule PO ×2 (08:27→17:22)
[2019-03-09] MEDS: DICLOFENAC SODIUM 25 MG TABLET.DR PO ×2 (08:28→17:22)
[2019-03-09 08:31] VITALS: BP 149/74; PULSE 78; RESP 18; TEMP 36.7; O2SAT 92
[2019-03-09] MEDS: Acetaminophen 500 MG Tablet 1000 MG PO ×2 (08:53→17:32)
--- NOTE | 2019-03-09 09:11 | PN_ITS ---
Subjective: Chief complaint: Follow-up after consultation for postoperative medical management. Patient seen and examined. No acute events overnight. He denied any complaints. His vital signs are stable. - Physical Exam General: Alert, Oriented x3, Cooperative, No apparent distress HEENT: Atraumatic, PERRLA, EOMI, Normocephalic Oral: Moist Mucosa, No Gingival or Mucosal Lesions/ Ulcerations Neck: Supple, No JVD, Negative Carotid Bruits, Trachea Midline, Thyroid Normal Size and Texture Lungs: Clear to auscultation, No rhonchi, No wheeze, No rales, Diminished Cardiovascular: Regular rate, Regular Rhythm, Normal S1, Normal S2, PMI Normal Abdomen: Bowel Sounds Present, Soft, Non Tender, Non-Distended, No Hepato- splenomegaly Extremities: No clubbing, No cyanosis, No edema Skin: No rashes, No breakdown Lymphatic: No Cervical, Supraclavicular, or Inguinal Adenopathy Neurological: Cranial nerves II-XII grossly intact, Neuro grossly intact Psych/Mental Status: Normal Affect, Appropriate Vital Signs Temp Pulse Resp BP Pulse Ox 98.0 F 78 18 149/74 H 92 03/09/19 08:31 03/09/19 08:31 03/09/19 08:31 03/09/19 08:31 03/09/19 08:31 Oxygen Flow Rate (L/min) 5 Oxygen Delivery Method Room Air Weight: 275 lb 15.947 oz Body Mass Index (BMI) 41.9 Finger Stick Blood Glucose 89 Intake and Output for Last 24 Hours 03/07/19 03/08/19 03/09/19 23:59 23:59 23:59 Intake Total 3307 / 3307 2840 / 2840 Output Total 1250 / 1250 1400 / 1400 100 / 100 Balance 2057 / 2057 1440 / 1440 -100 / -100 Microbiology Past 72 Hours 03/06/19 09:28 Blood Culture - Preliminary Blood Culture (Wb) - Anticubital Right No growth in 48 hours. 03/05/19 17:14 Gram Stain - Final Tissue - Leg, Right Wound Culture - Final Meth. resistant Staph. aureus Anaerobic Culture - Preliminary Laboratory Tests Past 24 Hrs 03/08/19 15:14 Vancomycin Trough 19.6 H POC Glucose 03/09/19 03/08/19 03/08/19 06:34 21:27 16:35 POC Glucose 139 H 173 H 174 H 03/08/19 12:11 POC Glucose 176 H Medical Necessity - Tobacco Use Smoking Status: Former smoker Assessment/Plan All Active Problems (Last Reviewed 01/26/19 @ 17:02 by Bib Judge DO) MRSA (methicillin resistant Staphylococcus aureus) infection (Acute) Unspecified fracture of shaft of right tibia, sequela (Acute) MRSA bacteremia (Acute) Fracture of right tibia and fibula (Acute) Hypokalemia (Resolved) This is a 73 years old male patient underwent incision, drainage and excisional debridement of nonhealing necrotic MRSA infected right proximal lateral leg in context of recent history of traumatic right tibial plateau fracture that was repaired surgically with open reduction and internal fixation and complicated by postoperative MRSA wound infection and nonhealing ulcer. #1 nonhealing necrotic MRSA infected ulcer of the right proximal lateral leg: Status post incision, drainage and excisional debridement, postoperative day 4. Remained on IV vancomycin, started on rifampin. His vital signs are stable, afebrile, no leukocytosis. Wound culture revealed MRSA. Blood culture showed no growth in 48 hours. Infectious disease and plastic surgery on the case. Plan to continue same treatment, awaiting insurance approval for [facility] to [facility]. #2 recent history of traumatic right tibial plateau fracture status post open reduction internal fixation: Wound infection with MRSA, status post incision and drainage as above. Remained on IV vancomycin as above. Plan as above. #3 recent history of MRSA bacteremia: Repeat blood culture on March 04 showed no growth in 48 hours. Remained on IV vancomycin, repeat culture is showed no growth in 48 hours. #4 type 2 diabetes mellitus: Blood sugar has been stable, hemoglobin A1c was 6.8 around 1 month ago. Blood sugar has been stable. Continue Lantus, Tradjenta, start insulin sliding scale and Accu-Cheks before meals at bedtime. #5 hypertension: Blood pressure under better control, continue losartan and metoprolol, continue IV hydralazine as needed #6 hypothyroidism: Continue levothyroxine. #7 chronic diastolic CHF: Stable, compensated, continue Lasix, losartan and metoprolol. #8 hyperlipidemia: He is not on statins. #9 chronic back pain/lumbar spinal stenosis/neuropathic pain: Continue Neurontin, diclofenac and OxyIR. #10 gout: Continue allopurinol. #11 depression: Continue trazodone and Paxil. #12 DVT prophylaxis: Subcu Lovenox. This note was generated with [employer] dictation software. It may contain incorrect words, spelling, and punctuation that were not noted in checking the note before signing. Code Visit Inpatient E&M: 61722 Subs Hosp L2
[2019-03-09] MEDS: Menthol/Lanolin/Calamine/Znox 113 GM Tube 1 APPLIC TOPICAL ×2 (10:28→21:04)
[2019-03-09 10:29] VITALS: BP 149/74; PULSE 78
[2019-03-09] MEDS: rifAMPin 300 MG Capsule PO ×2 (10:29→21:00)
[2019-03-09] MEDS: Glucerna Shake 120 ML LIQUID PO ×3 (10:29→21:03)
[2019-03-09] MEDS: Metoprolol(XL)Succ 25 MG Tablet 12.5 MG PO ×2 (10:29→21:00)
[2019-03-09] MEDS: Losartan Potassium 100 MG Tablet PO ×2 (10:29→21:00)
[2019-03-09] MEDS: LINAGLIPTIN 5 MG TABLET PO (10:30)
[2019-03-09] MEDS: Divalproex Sodium 250 MG Tablet 500 MG PO ×2 (10:30→21:04)
[2019-03-09] MEDS: Empagliflozin 25 MG Tablet PO (10:30)
[2019-03-09] MEDS: Furosemide 40 MG Tablet PO ×2 (10:30→17:22)
[2019-03-09] MEDS: Paroxetine 20 MG Tablet 40 MG PO (10:34)
--- NOTE | 2019-03-09 11:45 | PCM.PN.SRG ---
Subjective: Postop #4 Patient is resting comfortably. - Physical Exam General: Alert, Oriented x3 HEENT: PERRLA, EOMI Oral: Moist Mucosa Neck: Supple Abdomen: Soft, Non-Distended Skin: Ulcer/ Wound - the right proximal lateral leg wound is stable Muscle is pink and viable without further evidence of necrosis. The wound was redressed with adaptic and Betadine gauze followed by an alexia wrap. Neurological: Cranial nerves II-XII grossly intact Psych/Mental Status: Normal Affect, Appropriate Vital Signs Temp Pulse Resp BP Pulse Ox 98.0 F 78 18 149/74 H 92 03/09/19 08:31 03/09/19 10:29 03/09/19 08:31 03/09/19 10:29 03/09/19 08:31 Oxygen Flow Rate (L/min) 5 Oxygen Delivery Method Room Air Weight: 275 lb 15.947 oz Body Mass Index (BMI) 41.9 Finger Stick Blood Glucose 89 Intake and Output for Last 24 Hours 03/07/19 03/08/19 03/09/19 23:59 23:59 23:59 Intake Total 3307 / 3307 2840 / 2840 Output Total 1250 / 1250 1400 / 1400 100 / 100 Balance 2057 / 2057 1440 / 1440 -100 / -100 Microbiology Past 72 Hours 03/06/19 09:28 Blood Culture - Preliminary Blood Culture (Wb) - Anticubital Right No growth in 48 hours. 03/05/19 17:14 Gram Stain - Final Tissue - Leg, Right Wound Culture - Final Meth. resistant Staph. aureus Anaerobic Culture - Preliminary Laboratory Tests Past 24 Hrs 03/08/19 15:14 Vancomycin Trough 19.6 H POC Glucose 03/09/19 03/08/19 03/08/19 06:34 21:27 16:35 POC Glucose 139 H 173 H 174 H 03/08/19 12:11 POC Glucose 176 H Medical Necessity - Tobacco Use Smoking Status: Former smoker Assessment/Plan All Active Problems (Last Reviewed 01/26/19 @ 17:02 by Bib Judge DO) MRSA (methicillin resistant Staphylococcus aureus) infection (Acute) Unspecified fracture of shaft of right tibia, sequela (Acute) MRSA bacteremia (Acute) Fracture of right tibia and fibula (Acute) Hypokalemia (Resolved) 1. 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 2. Recent history of ORIF right tibial plateau fracture. 3. MRSA. 4. MRSA bacteremia. 5. Diabetes mellitus. 6. Status right knee replacement, medial compartment. 7. Fall. 8. Exposed hardware right proximal lateral leg from tibial plateau fracture repair. 9. s/p surgical preparation right proximal lateral leg with incision and drainage and excisional debridement nonhealing necrotic MRSA ulcer with exposed hardware (105 cm2). Wound is stable. Debrided muscle is pink and viable. Redressed the wound with Betadine and adaptic and gauze. Operative culture shows MRSA. Continue Vancomycin. Prealbumin was 14.2. Encourage nutritional supplementation with protein to help the healing process. Discussed with Dr. Rutledge. Ideally he would like to wait a couple of months to see if there is reasonable healing to remove the hardware. If the bones heal properly, then remove the hardware and check the bone for osteomyelitis. When it is negative then proceed with soft tissue coverage. If bony healing becomes problematic, the last resort option would be an above knee amputation. Patient and his voice understanding.
[2019-03-09] MEDS: Insulin Lispro 100 UNIT/ML INSULN.PEN SC ×3 (11:55→21:01)
[2019-03-09 12:06] LABS: Bedside Glucose 183 mg/dL (70-110)
[2019-03-09] MEDS: 0.9% NaCl Peripheral Flush Adult/Peds IV ×2 (12:14→12:15)
[2019-03-09 12:49] LABS: Anion Gap 7 (5-15); BUN 23 mg/dL (7-18); Chloride 99 mmol/L (98-107); Creatinine, Serum 0.85 mg/dL (0.70-1.30); EST Glomerular Filtration Rate 94 mL/min (>60); Est Glom Filt Rate - Afr Amer 113 mL/min (>60); Estimated Creatinine Clearance 74.88 ml/min; Glucose 218 mg/dL (74-106); Potassium 3.7 mmol/L (3.5-5.1); Sodium Level 139 mmol/L (136-145)
[2019-03-09 12:54] LABS: Hematocrit 36.3 % (40-54); Hemoglobin 11.6 g/dl (13.0-16.5); Mean Corpuscular Hgb 29.2 pg (27.0-32.0); Mean Corpuscular Volume 91.4 fL (80-94); Mean Platelet Vol. 8.7 fl (6.2-12.0); Platelet Count 588 K/mm3 (150-450); RBC Distribution Width CV 14.8 % (11.6-14.6); RBC Distribution Width SD 50.3 fl (35.1-43.9); Red Blood Count 3.97 M/mm3 (4.6-6.2); Scan Indicated on CBC? Y/N NO; White Blood Count 8.7 K/mm3 (4.4-11.0)
[2019-03-09 13:43] VITALS: BP 142/69; PULSE 59; RESP 18; TEMP 37.2; O2SAT 92
[2019-03-09] MEDS: Vancomycin IV 1,000 MG/200 ML BAG 200 MG IV (17:22)
[2019-03-09 18:05] LABS: Bedside Glucose 161 mg/dL (70-110)
[2019-03-09 20:59] VITALS: BP 156/72; PULSE 54; RESP 18; TEMP 36.5; O2SAT 94
[2019-03-09 21:00] VITALS: PULSE 54
[2019-03-09] MEDS: Senna/Docusate Sodium 1 Tablet 2 TABLET PO (21:00)
[2019-03-09] MEDS: MELATONIN 10 MG TABLET PO (21:00)
[2019-03-09] MEDS: traZODone 50 MG Tablet PO (21:00)
[2019-03-09 21:55] LABS: Bedside Glucose 183 mg/dL (70-110)
[2019-03-10 03:08] VITALS: BP 161/74; PULSE 70; RESP 18; TEMP 36.8; O2SAT 94
[2019-03-10 04:47] LABS: Hematocrit 36.4 % (40-54); Hemoglobin 11.8 g/dl (13.0-16.5); Mean Corp Hgb Conc 32.4 g/gl (32-36); Mean Corpuscular Hgb 29.4 pg (27.0-32.0); Mean Corpuscular Volume 90.8 fL (80-94); Mean Platelet Vol. 8.5 fl (6.2-12.0); Platelet Count 578 K/mm3 (150-450); RBC Distribution Width CV 14.8 % (11.6-14.6); RBC Distribution Width SD 49.4 fl (35.1-43.9); Red Blood Count 4.01 M/mm3 (4.6-6.2); White Blood Count 8.6 K/mm3 (4.4-11.0)
[2019-03-10 05:06] LABS: Anion Gap 7 (5-15); BUN 23 mg/dL (7-18); BUN/Creat Ratio 30.7 RATIO (10-20); Calcium,Total 9.1 mg/dL (8.5-10.1); Chloride 102 mmol/L (98-107); Creatinine, Serum 0.75 mg/dL (0.70-1.30); EST Glomerular Filtration Rate 109 mL/min (>60); Est Glom Filt Rate - Afr Amer 131 mL/min (>60); Estimated Creatinine Clearance 63.65 ml/min; Glucose 122 mg/dL (74-106); Potassium 3.6 mmol/L (3.5-5.1); Sodium Level 141 mmol/L (136-145)
[2019-03-10 05:07] LABS: Vancomycin, Trough Level 21.4 ug/mL (5.0-15.0)
[2019-03-10] MEDS: Vancomycin IV 1,000 MG/200 ML BAG 200 MG IV (05:10)
[2019-03-10] MEDS: Enoxaparin 40 MG/0.4 ML Syringe SC (05:10)
[2019-03-10] MEDS: Levothyroxine 112 MCG Tablet PO (05:10)
[2019-03-10 05:14] LABS: Scan Indicated on CBC? Y/N NO
[2019-03-10] MEDS: Insulin Lispro 100 UNIT/ML INSULN.PEN SC ×2 (06:32→11:49)
[2019-03-10 06:36] LABS: Bedside Glucose 170 mg/dL (70-110)
--- NOTE | 2019-03-10 08:42 | NURSING ---
wound photo: right lower leg
[2019-03-10 09:08] VITALS: BP 134/66; PULSE 60; RESP 16; TEMP 37.3; O2SAT 94
[2019-03-10] MEDS: DICLOFENAC SODIUM 25 MG TABLET.DR PO ×2 (09:24→16:24)
[2019-03-10] MEDS: Menthol/Lanolin/Calamine/Znox 113 GM Tube 1 APPLIC TOPICAL (09:25)
[2019-03-10] MEDS: Allopurinol 100 MG Tablet PO (09:25)
[2019-03-10] MEDS: Losartan Potassium 100 MG Tablet PO (09:26)
[2019-03-10] MEDS: rifAMPin 300 MG Capsule PO (09:31)
[2019-03-10] MEDS: Gabapentin 300 MG Capsule PO ×2 (09:31→16:24)
[2019-03-10 09:32] VITALS: PULSE 60
[2019-03-10] MEDS: LINAGLIPTIN 5 MG TABLET PO (09:32)
[2019-03-10] MEDS: Metoprolol(XL)Succ 25 MG Tablet 12.5 MG PO (09:32)
[2019-03-10] MEDS: Divalproex Sodium 250 MG Tablet 500 MG PO (09:33)
[2019-03-10] MEDS: Paroxetine 20 MG Tablet 40 MG PO (09:34)
[2019-03-10] MEDS: Furosemide 40 MG Tablet PO (09:36)
[2019-03-10] MEDS: Senna/Docusate Sodium 1 Tablet 2 TABLET PO (09:36)
[2019-03-10] MEDS: Empagliflozin 25 MG Tablet PO (09:40)
[2019-03-10] MEDS: Glucerna Shake 120 ML LIQUID PO ×2 (09:40→13:39)
--- NOTE | 2019-03-10 10:37 | PN.ID_ITS ---
Subjective: No fever, no events overnight - Physical Exam General: Cooperative, No apparent distress Lungs: Clear to auscultation, Normal air movement Cardiovascular: Regular rate, Regular Rhythm Abdomen: Soft, Non Tender, Non-Distended Skin: Ulcer/ Wound - R knee Vital Signs Temp Pulse Resp BP Pulse Ox 99.1 F 60 16 134/66 H 94 03/10/19 09:08 03/10/19 09:32 03/10/19 09:08 03/10/19 09:08 03/10/19 09:08 Oxygen Flow Rate (L/min) 5 Oxygen Delivery Method Room Air Weight: 125.19 kg Body Mass Index (BMI) 41.9 Finger Stick Blood Glucose 89 Intake and Output for Last 24 Hours 03/08/19 03/09/19 03/10/19 23:59 23:59 23:59 Intake Total 2840 / 2840 1493 / 1493 334 / 334 Output Total 1400 / 1400 700 / 700 Balance 1440 / 1440 793 / 793 334 / 334 Microbiology Past 72 Hours 03/05/19 17:14 Gram Stain - Final Tissue - Leg, Right Wound Culture - Final Meth. resistant Staph. aureus Anaerobic Culture - Final No anaerobic bacteria isolated. 03/06/19 09:28 Blood Culture - Preliminary Blood Culture (Wb) - Anticubital Right No growth in 48 hours. Laboratory Tests Past 24 Hrs 03/09/19 03/09/19 03/10/19 12:10 12:10 04:36 WBC 8.7 RBC 3.97 L Hgb 11.6 L Hct 36.3 L MCV 91.4 MCH 29.2 MCHC 32.0 RDW 14.8 H RDW Differential 50.3 H Plt Count 588 H MPV 8.7 Sodium 139 Potassium 3.7 Chloride 99 Carbon Dioxide 33.0 H Anion Gap 7 BUN 23 H Creatinine 0.85 Estim Creat Clear Calc 74.88 Est GFR (MDRD) Af Amer 113 Est GFR (MDRD) Non-Af 94 BUN/Creatinine Ratio 27.0 H Glucose 218 H Calcium 9.0 Vancomycin Trough 21.4 H 03/10/19 03/10/19 04:36 04:36 WBC 8.6 RBC 4.01 L Hgb 11.8 L Hct 36.4 L MCV 90.8 MCH 29.4 MCHC 32.4 RDW 14.8 H RDW Differential 49.4 H Plt Count 578 H MPV 8.5 Sodium 141 Potassium 3.6 Chloride 102 Carbon Dioxide 32.0 Anion Gap 7 BUN 23 H Creatinine 0.75 Estim Creat Clear Calc 63.65 Est GFR (MDRD) Af Amer 131 Est GFR (MDRD) Non-Af 109 BUN/Creatinine Ratio 30.7 H Glucose 122 H Calcium 9.1 Vancomycin Trough POC Glucose 03/10/19 03/09/19 03/09/19 06:31 20:58 17:08 POC Glucose 170 H 183 H 161 H 03/09/19 11:51 POC Glucose 183 H Medical Necessity - Tobacco Use Smoking Status: Former smoker Route of nutrition/ use of supplements: [] Nutritional Intake: [] IV Site: [] Carney Catheter: [] - Assessment/Plan Antibiotics: [] Assessment/Plan: [] MRSA bacteremia likely from MRSA infected R tib ORIF surg site - repeat bcx. Cont vanc. No veg seen on echo. Now s/p OR 03/[address] Fernando. Clinically stable, no fever, no wbc. No sign of endocarditis or metastatic infection on exam. Infection in wound extended down to hardware, now exposed. Added rifampin for biofilm penetration. Bcx neg since 03/04. Plan will be for 6 weeks of vanc and po rifampin and the long-term po abx. Stop date for iv vanc will be 04/16/19. Weekly bmp, cbc, LFT, vanc trough, and esr while on iv abx. Will follow
[2019-03-10 11:55] LABS: Bedside Glucose 205 mg/dL (70-110)
[2019-03-10 12:27] LABS: AST(SGOT) 18 U/L (15-37); Alanine Aminotransfer ALT/SGPT 14 U/L (16-61); Albumin, Serum 2.6 g/dL (3.2-5.0); Alkaline Phosphatase 166 U/L (45-117); Bilirubin, Direct 0.14 mg/dL (0.00-0.30); Globulin 4.5 g/dL (2.2-4.2); Protein, Total 7.1 g/dL (6.4-8.2)
[2019-03-10 13:40] VITALS: BP 152/80; PULSE 55; RESP 16; TEMP 36.6; O2SAT 96
--- NOTE | 2019-03-10 13:45 | CASEMGMT ---
Social Work Note SW received message from Desiree in TCU stating pt's insurance asked for updated clinicals today. Plan: TCU pending pre-cert Tata Kasper PASSEMENTERIE WORKER, METHANE G[employer] COLLECTION SYSTEM OPERATOR
--- NOTE | 2019-03-10 16:29 | CASEMGMT ---
Social Work Note SW received call from Desiree in TCU stating pre-cert has been obtained and pt is able to discharge today. Physician, RN and Charge Nurse updated. Plan: TCU today Tata HERNÁNDEZ, XEROX MACHINE ASSEMBLER
[2019-03-10 16:31] LABS: Bedside Glucose 136 mg/dL (70-110)
--- NOTE | 2019-03-10 17:27 | PCM.TXEXTCAR ---
- Diet 03/05/19 18:33 Diet: Carbohydrate Controlled - Routine Orders/Code Status Enema Type: Fleetz Enema Frequency: Daily PRN Suppository Type: Dulcolax 10mg Suppository Frequency: Daily PRN Routine Lab Work: - - BMP, CBC, LFT, vanc trough and ESR weekly while on antibiotics. The last day for antibiotics will be 04/16/19 - Wound(s) RIGHT LOWER LEG Wound Type: Open Surgical Wound Dressing Change: KCI wound VAC - Therapies Weight Bearing: Non weight bearing Extremity Affected:: Right Lower Physical Therapy: Eval and Treat Occupational Therapy: Eval and Treat - Problem/Diagnosis (1) Abscess of right leg Status: Acute Current Visit: No (2) Fracture of right tibia and fibula Status: Chronic Comment: recent - January 2019 Current Visit: No (3) MRSA (methicillin resistant Staphylococcus aureus) infection Status: Acute Current Visit: No (4) MRSA bacteremia Status: Resolved Current Visit: No (5) Unspecified fracture of shaft of right tibia, sequela Status: Acute Comment: tibial plateau fracture Current Visit: No (6) Chronic diastolic (congestive) heart failure Status: Chronic Current Visit: No (7) Chronic venous insufficiency Status: Chronic Current Visit: No (8) Depression Status: Chronic Current Visit: No (9) Diabetes mellitus Status: Chronic Current Visit: No (10) Diabetic ulcer of right lower leg associated with type 2 diabetes mellitus, with fat layer exposed Status: Chronic Current Visit: No (11) GERD (gastroesophageal reflux disease) Status: Chronic Current Visit: No (12) Gout Status: Chronic Current Visit: No (13) Hyperlipidemia Status: Chronic Current Visit: No (14) Hypertension Status: Chronic Current Visit: No (15) Hypothyroidism Status: Resolved Current Visit: No (16) Low back pain Status: Chronic Current Visit: No (17) Lumbar spinal stenosis Status: Chronic Current Visit: No (18) Lymphedema Status: Chronic Current Visit: No (19) Neuropathic pain Status: Chronic Current Visit: No (20) Non-rheumatic tricuspid valve insufficiency Status: Chronic Current Visit: No (21) EH (obstructive sleep apnea) Status: Chronic Current Visit: No (22) Obesity, morbid, BMI 40.0-49.9 Status: Chronic Current Visit: No (23) Osteoarthritis of knees, bilateral Status: Chronic Current Visit: No (24) Presence of right artificial knee joint Status: Chronic Comment: right knee replacement, medial component. Current Visit: No (25) Tricuspid valve insufficiency Status: Chronic Current Visit: No - Allergies/Procedures Done in Hospital Allergies/Adverse Reactions: Allergies cocaine Allergy (Verified 09/11/18 13:52) Unknown atorvastatin calcium [From Lipitor] Adverse Reaction (Verified 09/11/18 13:52) Pain in joints haloperidol [From Haldol] Adverse Reaction (Verified 09/11/18 13:52) Other WENT CRAZY morphine Adverse Reaction (Verified 09/11/18 13:52) Other extremely aggitated oxycodone [From OxyIR] Adverse Reaction (Verified 09/11/18 13:52) Pain in joints extremely aggitated prednisone Adverse Reaction (Verified 09/11/18 13:52) ANXIOUS, INSOMNIA STERIODS Adverse Reaction (Uncoded 08/16/18 02:59) Other ANXIETY INSOMNIA Procedures: 2-D Echocardiogram - 03/06/2019-mild left ventricular hypertrophy, EF of 65%, stage I diastolic dysfunction, mild left atrial enlargement, right ventricular systolic pressure elevated at 36 consistent with mild pulmonary hypertension., - - Incision and drainage and excisional debridement of a nonhealing necrotic MRSA ulcer with exposed hardware right lower extremity by Dr. Fernando on 03/05/2019. - Type of Care/Length of Stay Estimated LOS: More Than 30 Days Type of Care Needed: Skilled Rehab Potential: Good Prognosis: Good - Additional Orders/Day of Discharge Additional Orders: The last day for antibiotics is 04/16/2019. Accu-Cheks before meals and at bedtime H&P will serve as current which was dated: 03/05/19 - There is actually no H&P on the chart for this admission.... Day of Discharge: 03/10/19 - Dietary and Speech Recommendations Dietitian Recommendations/Changes: Recommend continue carb controlled diet as indicated. Recommend continue glucerna and Edy for wound healing. - Follow Up Care Primary Care Physician: Gil Wheeler Chi, MD [Primary Care Provider] -
--- NOTE | 2019-03-10 17:48 | DS.PCM_ITS ---
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 Fracture of right tibia and fibula (Chronic) recent - January 2019 Lymphedema (Chronic) Diabetes mellitus (Chronic) GERD (gastroesophageal reflux disease) (Chronic) Lumbar spinal stenosis (Chronic) Osteoarthritis of knees, bilateral (Chronic) Depression (Chronic) Gout (Chronic) Neuropathic pain (Chronic) Low back pain (Chronic) Chronic venous insufficiency (Chronic) EH (obstructive sleep apnea) (Chronic) Tricuspid valve insufficiency (Chronic) Obesity, morbid, BMI 40.0-49.9 (Chronic) Non-rheumatic tricuspid valve insufficiency (Chronic) Chronic diastolic (congestive) heart failure (Chronic) Hyperlipidemia (Chronic) Hypertension (Chronic) Hospital Course and Treatment Imaging Results: Microbiology 03/06/19 09:28 Blood Culture (Wb) - Anticubital Right Blood Culture - Final No growth in 5 days. 03/05/19 17:14 Tissue - Leg, Right Gram Stain - Final 03/05/19 17:14 Tissue - Leg, Right Wound Culture - Final Meth. resistant Staph. aureus 03/05/19 17:14 Tissue - Leg, Right Anaerobic Culture - Final No anaerobic bacteria isolated. Consultations 03/07/19 06:48 Consult: Onc/Wound/set o type operator Routine Comment: Reason for Consult:: wound right lower leg Operations: None, - - S/P open reduction internal fixation right bicondylar tibial plateau fracture with debridement of necrotic MRSA infected ulcer at the previous surgical site by Dr. Fernando on 03/05 Summary of Care Provided: The patient is a 73 year old M who was admitted to the hospital on 03/05/[address] Fernando to debride a MRSA infected necrotic ulcer at the site of a recent bicondylar R tibial plateau fracture. Initial ORIF of the fracture was done by Dr. Rutledge. The debridement extended down to the hardware. He was admitted to the hospital post procedure and the hospitalist service was consulted for medical management. Dr. Pickering was also consulted to be perez in management of the antibiotics. He was continued on Vancomycin. Initial blood cultures were positive for MRSA but, follow up cultures following initiation of Vancomycin were negative. Surface ECHO showed no vegetations. Dr. Pickering added PO Rifampin for biofilm penetration. He was transferred back to the SNF and will get 6 weeks of IV Vanco and PO Rifampin and then will need suppressive antibiotics. He will follow up in the Wound care center with Dr. Fernando and with Dr. Diana. Will need weekly CBC, BMP, ESR and Vanco troughs while on IV Vanco. - Physical Exam General: Alert, Oriented x3, Cooperative, No apparent distress Oral: Moist Mucosa, No Gingival or Mucosal Lesions/ Ulcerations Neck: Trachea Midline Lungs: Clear to auscultation Cardiovascular: Regular rate, Regular Rhythm, Normal S1, Normal S2, No murmurs, No Gallop Abdomen: Bowel Sounds Present, Soft, Non Tender, Non-Distended, Obese Extremities: No clubbing, No edema Skin: Ulcer/ Wound - I did not examine on the day of DC...please see Dr. Fernando's note Neurological: Cranial nerves II-XII grossly intact, Neuro grossly intact Psych/Mental Status: Normal Affect, Appropriate Vital Signs Temp Pulse Resp BP Pulse Ox 97.9 F 55 L 16 152/80 H 96 03/10/19 13:40 03/10/19 13:40 03/10/19 13:40 03/10/19 13:40 03/10/19 13:40 Oxygen Flow Rate (L/min) 5 Oxygen Delivery Method Room Air Weight: 275 lb 15.947 oz Body Mass Index (BMI) 41.9 Finger Stick Blood Glucose 89 Intake and Output for Last 24 Hours 03/08/19 03/09/19 03/10/19 23:59 23:59 23:59 Intake Total 2840 / 2840 1493 / 1493 334 / 334 Output Total 1400 / 1400 700 / 700 Balance 1440 / 1440 793 / 793 334 / 334 Microbiology Past 72 Hours 03/05/19 17:14 Gram Stain - Final Tissue - Leg, Right Wound Culture - Final Meth. resistant Staph. aureus Anaerobic Culture - Final No anaerobic bacteria isolated. 03/06/19 09:28 Blood Culture - Preliminary Blood Culture (Wb) - Anticubital Right No growth in 48 hours. Laboratory Tests Past 24 Hrs 03/10/19 03/10/19 03/10/19 04:36 04:36 04:36 WBC 8.6 RBC 4.01 L Hgb 11.8 L Hct 36.4 L MCV 90.8 MCH 29.4 MCHC 32.4 RDW 14.8 H RDW Differential 49.4 H Plt Count 578 H MPV 8.5 Sodium 141 Potassium 3.6 Chloride 102 Carbon Dioxide 32.0 Anion Gap 7 BUN 23 H Creatinine 0.75 Estim Creat Clear Calc 63.65 Est GFR (MDRD) Af Amer 131 Est GFR (MDRD) Non-Af 109 BUN/Creatinine Ratio 30.7 H Glucose 122 H Calcium 9.1 Total Bilirubin Direct Bilirubin AST ALT Alkaline Phosphatase Total Protein Albumin Globulin Vancomycin Trough 21.4 H 03/10/19 04:36 WBC RBC Hgb Hct MCV MCH MCHC RDW RDW Differential Plt Count MPV Sodium Potassium Chloride Carbon Dioxide Anion Gap BUN Creatinine Estim Creat Clear Calc Est GFR (MDRD) Af Amer Est GFR (MDRD) Non-Af BUN/Creatinine Ratio Glucose Calcium Total Bilirubin 0.30 Direct Bilirubin 0.14 AST 18 ALT 14 L Alkaline Phosphatase 166 H Total Protein 7.1 Albumin 2.6 L Globulin 4.5 H Vancomycin Trough POC Glucose 03/10/19 03/10/19 03/10/19 16:15 11:47 06:31 POC Glucose 136 H 205 H 170 H 03/09/19 03/09/19 20:58 17:08 POC Glucose 183 H 161 H Home Medications: Medications to take at Discharge Paroxetine HCl [Paxil] 40 mg PO DAILY 09/27/16 Potassium Chloride [K-Dur] 20 meq PO BIDCM 09/27/16 Simvastatin [Zocor] 40 mg PO QHS 09/27/16 traZODone [Desyrel] 50 mg PO QHS 09/27/16 Divalproex Sodium [Depakote] 500 mg PO BID 08/14/17 Allopurinol 100 mg PO DAILY 05/17/18 gabapentin 300 mg capsule 300 mg PO BID cap 07/17/18 Diclofenac Sodium 25 mg PO BID 08/16/18 Losartan Potassium 100 mg PO BID #60 tablet 09/09/18 Dulaglutide [Trulicity] 1.5 mg SQ QWEEK 01/26/19 Cholecalciferol (Vitamin D3) [Vitamin D3] 2,000 unit PO DAILY 02/03/19 Empagliflozin [Jardiance] 25 mg PO DAILY 02/03/19 Metoprolol(XL)Succ [Toprol Xl (Beta Romel)] 12.5 mg PO BID 02/03/19 Acetaminophen [Tylenol] 1,000 mg PO Q6H PRN PRN tablet 02/24/19 Aspirin 81 mg PO BID #0 02/24/19 Bisacodyl [Dulcolax] 10 mg PO DAILY PRN tablet 02/24/19 Enoxaparin [Lovenox] 40 mg SC DAILY@0600 03/10/19 Furosemide [Lasix] 40 mg PO BIDLX 03/10/19 Insulin Lispro [Humalog Kwikpen] 100 unit SQ TID 03/10/19 Levothyroxine [Synthroid] 112 mcg PO DAILY@0600 03/10/19 Linagliptin [Tradjenta] 5 mg PO DAILY 03/10/19 Melatonin 10 mg PO QHS 03/10/19 Menthol/Lanolin/Calamine/Znox [Calmoseptine Ointment] 1 applic TOPICAL 0600,2200 03/10/19 Nutritional Supplement [Edy - ORANGE FLAVOR] 1 packet PO BIDCM 03/10/19 Nystatin Powder [Mycostatin Powder] 1 applic TOPICAL 0600,2200 03/10/19 Polyethylene Glycol 3350 [Miralax] 17 gm PO Q48H PRN #0 packet 03/10/19 Rifampin [Rifadin] 300 mg PO BID 03/10/19 Vancomycin IV 1,250 mg IV Q18H 03/10/19 Primary Care Physician: Gil Wheeler Chi, MD [Primary Care Provider] - Disposition: Detention facility Minutes spent on discharge:: 40 Patient Condition:: Stable Medical Necessity - Tobacco Use Smoking Status: Former smoker Tobacco Use: Non-smoker Meaningful Use Info Meaningful Use Diagnoses (Choose all that apply): None applicable Code Visit Inpatient E&M: 43922 Disch Hosp
== END 2019-03-10 18:42 | disposition skilled nursing facility (03) | DRG 857 ==
LOC: SDC 17:58 → AC 17:59 → MS3 23:42 → SDC 03-06 08:36 → MS3 03-06 08:37
PROVIDERS: Internal Medicine Infectious Disease; Admitting Provider Surgery; Family Provider Family Medicine Geriatric Medicine; PCP Family Medicine Geriatric Medicine; Referring Provider Surgery; Visit Provider Internal Medicine
PROC: 0KBS0ZZ Excision of Right Lower Leg Muscle, Open Approach (ICD-10-PCS; principal; 2019-03-05 15:20)
DX: T81.49XA Infection following a procedure, other surgical site, initial encounter (principal); L97.819 Non-pressure chronic ulcer of other part of right lower leg with unspecified severity; I50.32 Chronic diastolic (congestive) heart failure; Z68.41 Body mass index [BMI] 40.0-44.9, adult; I96 Gangrene, not elsewhere classified; R78.81 Bacteremia; E11.622 Type 2 diabetes mellitus with other skin ulcer; B95.62 Methicillin resistant Staphylococcus aureus infection as the cause of diseases classified elsewhere; E03.9 Hypothyroidism, unspecified; M10.9 Gout, unspecified; I11.0 Hypertensive heart disease with heart failure; Z96.651 Presence of right artificial knee joint; E11.9 Type 2 diabetes mellitus without complications; F32.9 Major depressive disorder, single episode, unspecified; E66.01 Morbid (severe) obesity due to excess calories; I07.1 Rheumatic tricuspid insufficiency; G47.33 Obstructive sleep apnea (adult) (pediatric); I87.2 Venous insufficiency (chronic) (peripheral); K21.9 Gastro-esophageal reflux disease without esophagitis; Z87.891 Personal history of nicotine dependence; S82.141D Displaced bicondylar fracture of right tibia, subsequent encounter for closed fracture with routine healing; Z79.4 Long term (current) use of insulin; E78.5 Hyperlipidemia, unspecified; M54.5 Low back pain; G62.9 Polyneuropathy, unspecified; M48.061 Spinal stenosis, lumbar region without neurogenic claudication; M17.0 Bilateral primary osteoarthritis of knee; W19.XXXD Unspecified fall, subsequent encounter
CPT/HCPCS: 36415; 36569; 73700; 80048; 80076; 80202; 82962; 84134; 85027; 85652; 86140; 87040; 87070; 87075; 87077; 87102; 87186; 87205; 87206; 88304; 93306; 97110; 97162; 97165; 97530; 97802; J7040; J7120; Q9957; A4216; J2405

== ENCOUNTER 2019-03-10 18:50 | Inpatient (IN) | payer MEDICARE, SELFPAY ==
[2019-03-05 18:38] VITALS: BMI 41.9
[2019-03-10 18:59] VITALS: BP 179/73; PULSE 54; PULSE 60; RESP 17; RESP 20; TEMP 36.7; O2SAT 95
--- NOTE | 2019-03-10 19:00 | NURSING ---
pt arrived from [facility] via bed at 185
--- NOTE | 2019-03-10 20:33 | PCM.HP.STD ---
Problem List (1) Hypothyroidism Status: Chronic (2) Sleep apnea Status: Chronic (3) Body mass index (BMI) 40.0-44.9, adult Status: Chronic (4) MRSA (methicillin resistant Staphylococcus aureus) infection Status: Acute (5) Fracture of right tibia and fibula Status: Chronic Comment: recent - January 2019 (6) Lymphedema Status: Chronic (7) Diabetes mellitus Status: Chronic (8) GERD (gastroesophageal reflux disease) Status: Chronic (9) Depression Status: Chronic (10) Chronic diastolic (congestive) heart failure Status: Chronic (11) Hyperlipidemia Status: Chronic Qualifiers: (12) Hypertension Status: Chronic Qualifiers: History of Present Illness Date of Admission: 03/10/19 Chief Complaint: Here for rehabilitation, strengthening, intravenous antibiotics, wound care, prior to discharge home with spouse. The patient is a 73 year old Male with below past medical history TCU resident for rehabilitation, strengthening, after ORIF right proximal tibia/fibula fracture. Resident's incision became infected. 03/04/2019 CT right knee shows status post ORIF proximal tibia/fibula fracture. 03/05/2019 Dr. Fernando performed incision and drainage right proximal lateral leg and excisional debridement nonhealing necrotic MRSA ulcer with exposed hardware. 03/06/2019 Echo mild concentric left ventricular hypertrophy. EF 65%. Stage 1 diastolic dysfunction. Mild pulmonary hypertension Negative for vegetation. IV Vancomycin, Rifampin for MRSA right leg ulcer. Wound culture grew MRSA. Repeat blood culture NEGATIVE MRSA. Sliding scale insulin added for diabetes. IV Hydralazine as needed for elevated blood pressure. Dr. Pickering recommended IV Vancomycin thru 04/16/2019. Rifampin added for biofilm penetration. Oral antibiotics after done with IV Vancomycin. 03/10/2019 Admit to TCU with debility, here for rehabilitation, strengthening, intravenous antibiotic, wound care prior to discharge home with spouse. 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 Fracture of right tibia and fibula (Chronic) recent - January 2019 Lymphedema (Chronic) Diabetes mellitus (Chronic) GERD (gastroesophageal reflux disease) (Chronic) Lumbar spinal stenosis (Chronic) Osteoarthritis of knees, bilateral (Chronic) Depression (Chronic) Gout (Chronic) Neuropathic pain (Chronic) Low back pain (Chronic) Chronic venous insufficiency (Chronic) EH (obstructive sleep apnea) (Chronic) Tricuspid valve insufficiency (Chronic) Obesity, morbid, BMI 40.0-49.9 (Chronic) Non-rheumatic tricuspid valve insufficiency (Chronic) Chronic diastolic (congestive) heart failure (Chronic) Hyperlipidemia (Chronic) Hypertension (Chronic) Medical History: Medical History (Last Reviewed 01/26/19 @ 17:02 by Bib Judge DO) Non-rheumatic tricuspid valve insufficiency (Chronic) I36.1 Chronic diastolic (congestive) heart failure (Chronic) I50.32 Hyperlipidemia (Chronic) E78.5 Hypertension (Chronic) I10 Asbestos exposure Z77.090 GERD (gastroesophageal reflux disease) K21.9 Hypothyroidism E03.9 Obstructive sleep apnea G47.33 Type 2 diabetes mellitus E11.9 Venous stasis dermatitis of right lower extremity (Inactive) I83.11 Allergies cocaine Allergy (Verified 09/11/18 13:52) Unknown atorvastatin calcium [From Lipitor] Adverse Reaction (Verified 09/11/18 13:52) Pain in joints haloperidol [From Haldol] Adverse Reaction (Verified 09/11/18 13:52) Other WENT CRAZY morphine Adverse Reaction (Verified 09/11/18 13:52) Other extremely aggitated oxycodone [From OxyIR] Adverse Reaction (Verified 09/11/18 13:52) Pain in joints extremely aggitated prednisone Adverse Reaction (Verified 09/11/18 13:52) ANXIOUS, INSOMNIA STERIODS Adverse Reaction (Uncoded 08/16/18 02:59) Other ANXIETY INSOMNIA Home Medications: Ambulatory Orders Medication Instructions Recorded Paroxetine HCl [Paxil] 40 mg PO DAILY 09/27/16 Potassium Chloride [K-Dur] 20 meq PO BIDCM 09/27/16 Simvastatin [Zocor] 40 mg PO QHS 09/27/16 traZODone [Desyrel] 50 mg PO QHS 09/27/16 Divalproex Sodium [Depakote] 500 mg PO BID 08/14/17 Allopurinol 100 mg PO DAILY 05/17/18 gabapentin 300 mg capsule 300 mg PO BID cap 07/17/18 Diclofenac Sodium 25 mg PO BID 08/16/18 Losartan Potassium 100 mg PO BID #60 tablet 09/09/18 Dulaglutide [Trulicity] 1.5 mg SQ QWEEK 01/26/19 Cholecalciferol (Vitamin D3) 2,000 unit PO DAILY 02/03/19 [Vitamin D3] Empagliflozin [Jardiance] 25 mg PO DAILY 02/03/19 Metoprolol(XL)Succ [Toprol Xl 12.5 mg PO BID 02/03/19 (Beta Romel)] Acetaminophen [Tylenol] 1,000 mg PO Q6H PRN PRN tablet 02/24/19 Aspirin 81 mg PO BID #0 02/24/19 Bisacodyl [Dulcolax] 10 mg PO DAILY PRN tablet 02/24/19 Enoxaparin [Lovenox] 40 mg SC DAILY@0600 03/10/19 Furosemide [Lasix] 40 mg PO BIDLX 03/10/19 Insulin Lispro [Humalog Kwikpen] 100 unit SQ TID 03/10/19 Levothyroxine [Synthroid] 112 mcg PO DAILY@0600 03/10/19 Linagliptin [Tradjenta] 5 mg PO DAILY 03/10/19 Melatonin 10 mg PO QHS 03/10/19 Menthol/Lanolin/Calamine/Znox 1 applic TOPICAL 0600,0 03/10/19 [Calmoseptine Ointment] Nutritional Supplement [Edy - 1 packet PO BIDCM 03/10/19 ORANGE FLAVOR] Nystatin Powder [Mycostatin Powder] 1 applic TOPICAL 0600,2200 03/10/19 Polyethylene Glycol 3350 [Miralax] 17 gm PO Q48H PRN #0 packet 03/10/19 Rifampin [Rifadin] 300 mg PO BID 03/10/19 Vancomycin IV 1,250 mg IV Q18H 03/10/19 Surgical History: Surgical History (Last Reviewed 01/26/19 @ 17:02 by Bib Judge DO) Cochlear implant in place Z96.21 H/O shoulder surgery Z98.890 History of left heart catheterization Onset Date: 08/15/17 Z98.890 non obstructive coronary arteries History of right knee joint replacement Z96.651 Hx of cholecystectomy Z90.49 Previous back surgery Z98.890 Surgical History: cholecystectomy, total hip arthroplasty - Right, total knee arthroplasty - Right., - - Left shoulder surgery with rotator cuff repair; back surgery x 4; left cochlear implant. Psychiatric History: Depression Lives: Spouse/ Significant Other Smoking Status: Former smoker Tobacco Use: Non-smoker Alcohol: None Drugs: None - *Family History Maternal Family History: Family History (Last Reviewed 01/26/19 @ 17:02 by Bib Judge DO) Mother Hypertension Father Hypertension History Items: Dementia, Hypertension Paternal Family History: Family History (Last Reviewed 01/26/19 @ 17:02 by Bib Judge DO) Mother Hypertension Father Hypertension History Items: Heart Disease, Hypertension Review of Systems Constitutional: Denies: Chills, Fever, Weight Change HEENT: Denies: Head Aches, Sinus Congestion, Sinus Drainage Cardiovascular: Denies: Chest Pain, Palpitations Respiratory: Denies: Cough, Shortness of breath at rest, Sputum production Gastrointestinal: Denies: Abdominal Pain, Nausea, Vomiting Genitourinary: Denies: Dysuria Musculoskeletal: Denies: Joint Pain, Joint Tenderness Skin: Reports: Pruritis, Rash. Denies: Wounds Neurological: Denies: Numbness, Tingling, Focal weakness Psychiatric: Denies: Anxiety, Depression, Homicidal Ideations, Suicidal Ideations Hematologic/ Lymphatic: Denies: Easy Bruising, Easy Bleeding VTE Information - Inpt Only VTE Present on Admission: No VTE Mechan Device Prophylaxis: Knee High ESTRELLITA Hose VTE Pharm Prophylaxis ordered?: Yes - Physical Exam General: Alert, Oriented x3, Cooperative HEENT: Atraumatic, PERRLA, EOMI, Normocephalic Neck: Supple, No JVD, Negative Carotid Bruits Lungs: Clear to auscultation, Normal air movement Cardiovascular: Regular rate, No murmurs Abdomen: Bowel Sounds Present, Soft, Non Tender Extremities: No edema, Capillary Refill Less than 3 Seconds Skin: No breakdown, Ulcer/ Wound - Right proximal lateral leg per wound team., Rash Present - Back. Musculoskeletal: No Tenderness to Palpation of Joints or Extremities Neurological: Cranial nerves II-XII grossly intact Psych/Mental Status: Normal Affect, Appropriate Body Mass Index (BMI) 41.9 Finger Stick Blood Glucose 89 Assessment/Plan All Active Problems (Last Reviewed 01/26/19 @ 17:02 by Bib Judge DO) Abscess of right leg (Acute) MRSA (methicillin resistant Staphylococcus aureus) infection (Acute) Unspecified fracture of shaft of right tibia, sequela (Acute) MRSA bacteremia (Resolved) Hypokalemia (Resolved) Hypothyroidism (Resolved) 73 year old male with below past medical history hospitalized for MRSA infected right leg ulcer, underwent debridement with Dr. Fernando 03/05/2019, admitted to TCU with debility, here for rehabilitation, strengthening, intravenous antibiotic, wound care, prior to discharge home with spouse. Debility - PT/OT. Pain - Tylenol 1000MG Q6H PRN mild pain, Oxycodone 10MG Q4H PRN severe pain. Bowel - Miralax 17GM daily, Dulcolax 10MG PO daily PRN. Pneumonia vaccination - Administer Prevnar 13 and/or Pneumovax 23 as necessary. DVT prophylaxis - Lovenox 40MG daily, stop Aspirin 81MG twice daily. Gout - Allopurinol 100MG daily. Vitamin D deficiency - D3 2000IU daily. Osteoarthritis - Diclofenac 25MG twice daily. Diabetic polyneuropathy - Depakote 500MG twice daily, Gabapentin 300MG twice daily. Diabetes Mellitus II - Trulicity 1.5MG per week, Jardiance 25MG daily, Tradjenta 5MG daily. Chronic diastolic heart failure - Metoprolol succinate 12.5MG twice daily, Losartan 100MG twice daily, Lasix 40MG twice daily. Hypothyroidism - Levothyroxine 112MCG daily. Insomnia - Trazodone 50MG QHS, Melatonin 10MG QHS. Skin irritation - Calmoseptine BID bilateral buttocks. Right lower extremity wound - Consult wound team, Edy 1 packet BID. Tinea Corporis - Nystatin powder twice daily groin. Depression - Paroxetine 40MG daily. Hypokalemia - K-Dur 20MEQ twice daily. MRSA right lower extremity wound - Vancomycin 1.25GM IV Q18H thru 04/16/2019, Rifampin 300MG twice daily, Dr. Pickering following. Hyperlipidemia - Simvastatin 40MG QHS. Rash - HC 2.5% cream twice daily to back.
--- NOTE | 2019-03-10 20:39 | HP.PCM_ITS ---
Problem List (1) Hypothyroidism Status: Chronic (2) Sleep apnea Status: Chronic (3) Body mass index (BMI) 40.0-44.9, adult Status: Chronic (4) MRSA (methicillin resistant Staphylococcus aureus) infection Status: Acute (5) Fracture of right tibia and fibula Status: Chronic Comment: recent - January 2019 (6) Lymphedema Status: Chronic (7) Diabetes mellitus Status: Chronic (8) GERD (gastroesophageal reflux disease) Status: Chronic (9) Depression Status: Chronic (10) Chronic diastolic (congestive) heart failure Status: Chronic (11) Hyperlipidemia Status: Chronic Qualifiers: (12) Hypertension Status: Chronic Qualifiers: History of Present Illness Date of Admission: 03/10/19 Chief Complaint: Here for rehabilitation, strengthening, intravenous antibiotics, wound care, prior to discharge home with spouse. The patient is a 73 year old Male with below past medical history TCU resident for rehabilitation, strengthening, after ORIF right proximal tibia/fibula fracture. Resident's incision became infected. 03/04/2019 CT right knee shows status post ORIF proximal tibia/fibula fracture. 03/05/2019 Dr. Fernando performed incision and drainage right proximal lateral leg and excisional debridement nonhealing necrotic MRSA ulcer with exposed hardware. 03/06/2019 Echo mild concentric left ventricular hypertrophy. EF 65%. Stage 1 diastolic dysfunction. Mild pulmonary hypertension Negative for vegetation. IV Vancomycin, Rifampin for MRSA right leg ulcer. Wound culture grew MRSA. Repeat blood culture NEGATIVE MRSA. Sliding scale insulin added for diabetes. IV Hydralazine as needed for elevated blood pressure. Dr. Pickering recommended IV Vancomycin thru 04/16/2019. Rifampin added for biofilm penetration. Oral antibiotics after done with IV Vancomycin. 03/10/2019 Admit to TCU with debility, here for rehabilitation, strengthening, intravenous antibiotic, wound care prior to discharge home with spouse. 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 Fracture of right tibia and fibula (Chronic) recent - January 2019 Lymphedema (Chronic) Diabetes mellitus (Chronic) GERD (gastroesophageal reflux disease) (Chronic) Lumbar spinal stenosis (Chronic) Osteoarthritis of knees, bilateral (Chronic) Depression (Chronic) Gout (Chronic) Neuropathic pain (Chronic) Low back pain (Chronic) Chronic venous insufficiency (Chronic) EH (obstructive sleep apnea) (Chronic) Tricuspid valve insufficiency (Chronic) Obesity, morbid, BMI 40.0-49.9 (Chronic) Non-rheumatic tricuspid valve insufficiency (Chronic) Chronic diastolic (congestive) heart failure (Chronic) Hyperlipidemia (Chronic) Hypertension (Chronic) Medical History: Medical History (Last Reviewed 01/26/19 @ 17:02 by Bib Judge DO) Non-rheumatic tricuspid valve insufficiency (Chronic) I36.1 Chronic diastolic (congestive) heart failure (Chronic) I50.32 Hyperlipidemia (Chronic) E78.5 Hypertension (Chronic) I10 Asbestos exposure Z77.090 GERD (gastroesophageal reflux disease) K21.9 Hypothyroidism E03.9 Obstructive sleep apnea G47.33 Type 2 diabetes mellitus E11.9 Venous stasis dermatitis of right lower extremity (Inactive) I83.11 Allergies cocaine Allergy (Verified 09/11/18 13:52) Unknown atorvastatin calcium [From Lipitor] Adverse Reaction (Verified 09/11/18 13:52) Pain in joints haloperidol [From Haldol] Adverse Reaction (Verified 09/11/18 13:52) Other WENT CRAZY morphine Adverse Reaction (Verified 09/11/18 13:52) Other extremely aggitated oxycodone [From OxyIR] Adverse Reaction (Verified 09/11/18 13:52) Pain in joints extremely aggitated prednisone Adverse Reaction (Verified 09/11/18 13:52) ANXIOUS, INSOMNIA STERIODS Adverse Reaction (Uncoded 08/16/18 02:59) Other ANXIETY INSOMNIA Home Medications: Ambulatory Orders Medication Instructions Recorded Paroxetine HCl [Paxil] 40 mg PO DAILY 09/27/16 Potassium Chloride [K-Dur] 20 meq PO BIDCM 09/27/16 Simvastatin [Zocor] 40 mg PO QHS 09/27/16 traZODone [Desyrel] 50 mg PO QHS 09/27/16 Divalproex Sodium [Depakote] 500 mg PO BID 08/14/17 Allopurinol 100 mg PO DAILY 05/17/18 gabapentin 300 mg capsule 300 mg PO BID cap 07/17/18 Diclofenac Sodium 25 mg PO BID 08/16/18 Losartan Potassium 100 mg PO BID #60 tablet 09/09/18 Dulaglutide [Trulicity] 1.5 mg SQ QWEEK 01/26/19 Cholecalciferol (Vitamin D3) 2,000 unit PO DAILY 02/03/19 [Vitamin D3] Empagliflozin [Jardiance] 25 mg PO DAILY 02/03/19 Metoprolol(XL)Succ [Toprol Xl 12.5 mg PO BID 02/03/19 (Beta Romel)] Acetaminophen [Tylenol] 1,000 mg PO Q6H PRN PRN tablet 02/24/19 Aspirin 81 mg PO BID #0 02/24/19 Bisacodyl [Dulcolax] 10 mg PO DAILY PRN tablet 02/24/19 Enoxaparin [Lovenox] 40 mg SC DAILY@0600 03/10/19 Furosemide [Lasix] 40 mg PO BIDLX 03/10/19 Insulin Lispro [Humalog Kwikpen] 100 unit SQ TID 03/10/19 Levothyroxine [Synthroid] 112 mcg PO DAILY@0600 03/10/19 Linagliptin [Tradjenta] 5 mg PO DAILY 03/10/19 Melatonin 10 mg PO QHS 03/10/19 Menthol/Lanolin/Calamine/Znox 1 applic TOPICAL 0600,0 03/10/19 [Calmoseptine Ointment] Nutritional Supplement [Edy - 1 packet PO BIDCM 03/10/19 ORANGE FLAVOR] Nystatin Powder [Mycostatin Powder] 1 applic TOPICAL 0600,2200 03/10/19 Polyethylene Glycol 3350 [Miralax] 17 gm PO Q48H PRN #0 packet 03/10/19 Rifampin [Rifadin] 300 mg PO BID 03/10/19 Vancomycin IV 1,250 mg IV Q18H 03/10/19 Surgical History: Surgical History (Last Reviewed 01/26/19 @ 17:02 by Bib Judge DO) Cochlear implant in place Z96.21 H/O shoulder surgery Z98.890 History of left heart catheterization Onset Date: 08/15/17 Z98.890 non obstructive coronary arteries History of right knee joint replacement Z96.651 Hx of cholecystectomy Z90.49 Previous back surgery Z98.890 Surgical History: cholecystectomy, total hip arthroplasty - Right, total knee arthroplasty - Right., - - Left shoulder surgery with rotator cuff repair; back surgery x 4; left cochlear implant. Psychiatric History: Depression Lives: Spouse/ Significant Other Smoking Status: Former smoker Tobacco Use: Non-smoker Alcohol: None Drugs: None - *Family History Maternal Family History: Family History (Last Reviewed 01/26/19 @ 17:02 by Bib Judge DO) Mother Hypertension Father Hypertension History Items: Dementia, Hypertension Paternal Family History: Family History (Last Reviewed 01/26/19 @ 17:02 by Bib Judge DO) Mother Hypertension Father Hypertension History Items: Heart Disease, Hypertension Review of Systems Constitutional: Denies: Chills, Fever, Weight Change HEENT: Denies: Head Aches, Sinus Congestion, Sinus Drainage Cardiovascular: Denies: Chest Pain, Palpitations Respiratory: Denies: Cough, Shortness of breath at rest, Sputum production Gastrointestinal: Denies: Abdominal Pain, Nausea, Vomiting Genitourinary: Denies: Dysuria Musculoskeletal: Denies: Joint Pain, Joint Tenderness Skin: Reports: Pruritis, Rash. Denies: Wounds Neurological: Denies: Numbness, Tingling, Focal weakness Psychiatric: Denies: Anxiety, Depression, Homicidal Ideations, Suicidal Ideations Hematologic/ Lymphatic: Denies: Easy Bruising, Easy Bleeding VTE Information - Inpt Only VTE Present on Admission: No VTE Mechan Device Prophylaxis: Knee High ESTRELLITA Hose VTE Pharm Prophylaxis ordered?: Yes - Physical Exam General: Alert, Oriented x3, Cooperative HEENT: Atraumatic, PERRLA, EOMI, Normocephalic Neck: Supple, No JVD, Negative Carotid Bruits Lungs: Clear to auscultation, Normal air movement Cardiovascular: Regular rate, No murmurs Abdomen: Bowel Sounds Present, Soft, Non Tender Extremities: No edema, Capillary Refill Less than 3 Seconds Skin: No breakdown, Ulcer/ Wound - Right proximal lateral leg per wound team., Rash Present - Back. Musculoskeletal: No Tenderness to Palpation of Joints or Extremities Neurological: Cranial nerves II-XII grossly intact Psych/Mental Status: Normal Affect, Appropriate Body Mass Index (BMI) 41.9 Finger Stick Blood Glucose 89 Assessment/Plan All Active Problems (Last Reviewed 01/26/19 @ 17:02 by Bib Judge DO) Abscess of right leg (Acute) MRSA (methicillin resistant Staphylococcus aureus) infection (Acute) Unspecified fracture of shaft of right tibia, sequela (Acute) MRSA bacteremia (Resolved) Hypokalemia (Resolved) Hypothyroidism (Resolved) 73 year old male with below past medical history hospitalized for MRSA infected right leg ulcer, underwent debridement with Dr. Fernando 03/05/2019, admitted to TCU with debility, here for rehabilitation, strengthening, intravenous antibiotic, wound care, prior to discharge home with spouse. * Debility - PT/OT. * Pain - Tylenol 1000MG Q6H PRN mild pain, Oxycodone 10MG Q4H PRN severe pain. * Bowel - Miralax 17GM daily, Dulcolax 10MG PO daily PRN. * Pneumonia vaccination - Administer Prevnar 13 and/or Pneumovax 23 as necessary. * DVT prophylaxis - Lovenox 40MG daily, stop Aspirin 81MG twice daily. * Gout - Allopurinol 100MG daily. * Vitamin D deficiency - D3 2000IU daily. * Osteoarthritis - Diclofenac 25MG twice daily. * Diabetic polyneuropathy - Depakote 500MG twice daily, Gabapentin 300MG twice daily. * Diabetes Mellitus II - Trulicity 1.5MG per week, Jardiance 25MG daily, Tradjenta 5MG daily. * Chronic diastolic heart failure - Metoprolol succinate 12.5MG twice daily, Losartan 100MG twice daily, Lasix 40MG twice daily. * Hypothyroidism - Levothyroxine 112MCG daily. * Insomnia - Trazodone 50MG QHS, Melatonin 10MG QHS. * Skin irritation - Calmoseptine BID bilateral buttocks. * Right lower extremity wound - Consult wound team, Edy 1 packet BID. * Tinea Corporis - Nystatin powder twice daily groin. * Depression - Paroxetine 40MG daily. * Hypokalemia - K-Dur 20MEQ twice daily. * MRSA right lower extremity wound - Vancomycin 1.25GM IV Q18H thru 04/16/2019, Rifampin 300MG twice daily, Dr. Pickering following. * Hyperlipidemia - Simvastatin 40MG QHS. * Rash - HC 2.5% cream twice daily to back.
[2019-03-10 21:26] LABS: Bedside Glucose 177 mg/dL (70-110)
[2019-03-10] MEDS: oxyCODONE 5 MG Tablet 10 MG PO (21:30)
[2019-03-10] MEDS: Menthol/Lanolin/Calamine/Znox 113 GM Tube 1 APPLIC TOPICAL (21:30)
[2019-03-10] MEDS: Losartan Potassium 100 MG Tablet PO (21:31)
[2019-03-10] MEDS: traZODone 50 MG Tablet PO (21:31)
[2019-03-10] MEDS: MELATONIN 10 MG TABLET PO (21:32)
[2019-03-10] MEDS: rifAMPin 300 MG Capsule PO (21:33)
[2019-03-10] MEDS: Nystatin Powder 15gm Bottle 1 APPLIC TOPICAL (21:33)
[2019-03-10] MEDS: Furosemide 40 MG Tablet PO (21:33)
[2019-03-10 21:34] VITALS: BP 179/73; PULSE 54
[2019-03-10] MEDS: Metoprolol(XL)Succ 25 MG Tablet 12.5 MG PO (21:34)
--- NOTE | 2019-03-10 21:40 | NURSING ---
Pt given pain meds per request, repositioned for comfort. Communicating with writing on pad most effective. Pt pleasant and cooperative. Continuing to monitor.
[2019-03-10] MEDS: 0.9% NaCl PICC Flush IV (23:25)
[2019-03-10] MEDS: 0.9% NaCl IVPB Med Flush (250 mL) 15 ML IV (23:25)
[2019-03-10 23:56] VITALS: BMI 43.2
[2019-03-11 00:06] VITALS: BMI 43.2
[2019-03-11] MEDS: Polyethylene Glycol 3350 17 GM PACKET PO (04:08)
[2019-03-11] MEDS: oxyCODONE 5 MG Tablet 10 MG PO (04:08)
[2019-03-11] MEDS: Furosemide 40 MG Tablet PO ×2 (04:10→13:52)
[2019-03-11] MEDS: Gabapentin 300 MG Capsule PO ×2 (04:11→18:00)
[2019-03-11] MEDS: Enoxaparin 40 MG/0.4 ML Syringe SC (04:11)
[2019-03-11] MEDS: Nystatin Powder 15gm Bottle 1 APPLIC TOPICAL ×2 (04:11→21:32)
[2019-03-11] MEDS: rifAMPin 300 MG Capsule PO ×2 (04:11→18:00)
[2019-03-11] MEDS: Losartan Potassium 100 MG Tablet PO ×2 (04:12→17:59)
[2019-03-11] MEDS: Menthol/Lanolin/Calamine/Znox 113 GM Tube 1 APPLIC TOPICAL ×2 (04:12→21:31)
[2019-03-11] MEDS: Empagliflozin 25 MG Tablet PO (04:13)
[2019-03-11] MEDS: Levothyroxine 112 MCG Tablet PO (04:13)
[2019-03-11] MEDS: Paroxetine 20 MG Tablet 40 MG PO (04:13)
[2019-03-11 04:14] VITALS: BP 152/74; PULSE 77
[2019-03-11] MEDS: DICLOFENAC SODIUM 25 MG TABLET.DR PO ×2 (04:14→17:59)
[2019-03-11] MEDS: Metoprolol(XL)Succ 25 MG Tablet 12.5 MG PO ×2 (04:14→18:00)
[2019-03-11] MEDS: LINAGLIPTIN 5 MG TABLET PO (04:15)
[2019-03-11 07:01] LABS: Bedside Glucose 123 mg/dL (70-110)
[2019-03-11] MEDS: Divalproex Sodium 250 MG Tablet 500 MG PO ×2 (08:57→17:58)
[2019-03-11] MEDS: Allopurinol 100 MG Tablet PO (08:57)
[2019-03-11 11:36] LABS: Bedside Glucose 160 mg/dL (70-110)
--- NOTE | 2019-03-11 13:53 | NURSING ---
All care provided in pt room d/t isolation for MRSA in wound.
--- NOTE | 2019-03-11 14:35 | PCM.PN.RX ---
<JoselinNestor tavares D - Last Filed: 03/11/19 14:35> Progress Note - Pharmacy Subjective: TCU Admission Objective: Allergies cocaine Allergy (Verified 09/11/18 13:52) Unknown atorvastatin calcium [From Lipitor] Adverse Reaction (Verified 09/11/18 13:52) Pain in joints haloperidol [From Haldol] Adverse Reaction (Verified 09/11/18 13:52) Other WENT CRAZY morphine Adverse Reaction (Verified 09/11/18 13:52) Other extremely aggitated oxycodone [From OxyIR] Adverse Reaction (Verified 09/11/18 13:52) Pain in joints extremely aggitated prednisone Adverse Reaction (Verified 09/11/18 13:52) ANXIOUS, INSOMNIA STERIODS Adverse Reaction (Uncoded 08/16/18 02:59) Other ANXIETY INSOMNIA Current Medications Generic Name Dose Route Start Last Admin Trade Name Freq PRN Reason Stop Dose Admin Acetaminophen 1,000 mg 03/10/19 20:01 Tylenol PO Q6H PRN PRN MILD PAIN (1-3/10) Allopurinol 100 mg 03/11/19 08:00 03/11/19 08:57 [facility] Bisacodyl 10 mg 03/10/19 20:04 Dulcolax PO DAILY PRN Constipation Calamine/Phenol 1 applic 03/10/19 22:00 03/11/19 04:12 Calmoseptine Ointment TOPICAL 1 applicatio 0600,2200 [facility] Administration Protocol Cholecalciferol 2,000 unit 03/24/19 08:00 [facility] Diclofenac Sodium 25 mg 03/11/19 06:00 03/11/19 04:14 Diclofenac Sodium PO 25 mg BID [facility] Administration Divalproex Sodium 500 mg 03/11/19 08:00 03/11/19 08:57 [facility] Enoxaparin Sodium 40 mg 03/11/19 06:00 03/11/19 04:11 Lovenox SC 40 mg DAILY@0600 [facility] Administration Furosemide 40 mg 03/10/19 22:00 03/11/19 13:52 Lasix PO 40 mg BIDLX [facility] Administration Gabapentin 300 mg 03/11/19 06:00 03/11/19 04:11 Neurontin PO 300 mg BID [facility] Administration Heparin Sodium (Beef Lung) 50 units 03/10/19 21:25 IV UD PRN HEPARIN FLUSH Hydrocortisone 1 applic 03/11/19 18:00 Hytone TOPICAL BID [facility] Protocol Vancomycin HCl 1,250 mg/ 275 mls @ 167 mls/hr 03/10/19 23:00 03/10/19 23:25 Sodium Chloride IV 04/16/19 23:00 167 mls/hr Q18H [facility] Administration Sodium Chloride 250 mls @ 15 mls/hr 03/10/19 21:25 03/10/19 23:25 IV 15 mls/hr .[id number] PRN Administration SALINE FLUSH Levothyroxine Sodium 112 mcg 03/11/19 06:00 03/11/19 04:13 Synthroid PO 112 mcg DAILY@0600 [facility] Administration Linagliptin 5 mg 03/11/19 06:00 03/11/19 04:15 Tradjenta PO 5 mg DAILY [facility] Administration Losartan Potassium 100 mg 03/10/19 22:00 03/11/19 04:12 Cozaar PO 100 mg BID [facility] Administration Melatonin 10 mg 03/10/19 22:00 03/10/19 21:32 Melatonin PO 10 mg QHS [facility] Administration Metoprolol Succinate 12.5 mg 03/10/19 22:00 03/11/19 04:14 Toprol Xl (Beta Romel) PO 12.5 mg BID [facility] Administration Multi-Ingredient Cream 1 applic 03/11/19 06:00 03/11/19 04:11 Eucerin TOPICAL 1 applicatio 0600,2200 [facility] Administration Protocol Nutritional Formula 1 packet 03/11/19 08:00 03/11/19 08:58 Edy - [place] Flavor PO 1 packet BIDCM [facility] Administration Nystatin 1 applic 03/10/19 22:00 03/11/19 04:11 Mycostatin Powder TOPICAL 1 applicatio 0600,2200 [facility] Administration Protocol Oxycodone HCl 10 mg 03/10/19 20:04 03/11/19 04:08 Oxyir PO 10 mg Q4H PRN PRN Administration SEVERE PAIN (6-10/10) Paroxetine HCl 40 mg 03/11/19 06:00 03/11/19 04:13 Paxil PO 40 mg DAILY [facility] Administration Polyethylene Glycol 17 gm 03/11/19 06:00 03/11/19 04:08 Miralax PO 17 gm DAILY [facility] Administration Potassium Chloride 20 meq 04/22/19 22:00 03/11/19 08:57 K-Dur PO 20 meq BIDCM [facility] Administration Rifampin 300 mg 03/10/19 22:00 03/11/19 04:11 Rifadin PO 300 mg BID [facility] Administration Simvastatin 40 mg 03/10/19 22:00 03/10/19 21:33 Zocor PO 40 mg QHS [facility] Administration Sodium Chloride 10 - 20 ml 03/10/19 21:25 03/10/19 23:25 IV 20 ml UD PRN Administration PICC FLUSH Trazodone HCl 50 mg 03/10/19 22:00 03/10/19 21:31 Desyrel PO 50 mg QHS [facility] Administration Problem List (Last Reviewed 01/26/19 @ 17:02 by Bib Judge DO) Hypothyroidism (Chronic) Sleep apnea (Chronic) Body mass index (BMI) 40.0-44.9, adult (Chronic) Vital Signs Temp Pulse Resp BP Pulse Ox 98.1 F 77 17 152/74 H 95 03/10/19 18:59 03/11/19 04:14 03/10/19 18:59 03/11/19 04:14 03/10/19 18:59 Oxygen Delivery Method Room Air Weight: 117.197 kg Body Mass Index (BMI) 43.2 Finger Stick Blood Glucose 89 Assessment/Plan: 1) Pain APAP for mild pain, oxycodone for severe pain, gabapentin, diclofenac, divalproex. Continue to monitor prn medication use, daily pain scores. 2) ID Rifampin, vancomycin with pharmacy following. Continue to monitor renal function, vancomycin levels, s/s infection. 3) Heart Failure/HLD Furosemide/KCL, losartan, metoprolol, simvastatin. Continue to monitor BP/HR, renal function, electrolytes, lipids. 4) DM2 Dulaglutide, empagliflozin, linagliptin. Continue to monitor BGT, s/s hyper/hypoglycemia. 5) Hypothyroidism Levothyroxine. Continue to monitor s/s hyper/hypothyroidism. 6) DVT PPx Enoxaparin. Continue to monitor s/s bleeding/clot. 7) Gout Allopurinol. Continue to monitor s/s gout. 8) Nutrition D, Edy,. Continue to monitor clinically. 9) Sleep Melatonin, trazodone. Continue to monitor for insomnia. Psychotropic Medications: 10) Depression Paroxetine. Continue to monitor s/s depression. Unnecessary Medications: None Bowel Regimen: 11) PEG, prn bisacodyl. Continue to monitor prn medication use, for constipation/diarrhea. Date of Note:: 03/11/19 - Provider Comments Provider responsibility: Provider responsible to enter orders to implement recommendations <Gil Wheeler Chi - Last Filed: 03/11/19 22:41> Progress Note - Pharmacy Subjective: [] Objective: Allergies cocaine Allergy (Verified 09/11/18 13:52) Unknown atorvastatin calcium [From Lipitor] Adverse Reaction (Verified 09/11/18 13:52) Pain in joints haloperidol [From Haldol] Adverse Reaction (Verified 09/11/18 13:52) Other WENT CRAZY morphine Adverse Reaction (Verified 09/11/18 13:52) Other extremely aggitated oxycodone [From OxyIR] Adverse Reaction (Verified 09/11/18 13:52) Pain in joints extremely aggitated prednisone Adverse Reaction (Verified 09/11/18 13:52) ANXIOUS, INSOMNIA STERIODS Adverse Reaction (Uncoded 08/16/18 02:59) Other ANXIETY INSOMNIA Current Medications Generic Name Dose Route Start Last Admin Trade Name Freq PRN Reason Stop Dose Admin Acetaminophen 1,000 mg 03/10/19 20:01 Tylenol PO Q6H PRN PRN MILD PAIN (1-3/10) Allopurinol 100 mg 03/11/19 08:00 03/11/19 08:57 [facility] Administration Bisacodyl 10 mg 03/10/19 20:04 Dulcolax PO DAILY PRN Constipation Calamine/Phenol 1 applic 03/10/19 22:00 03/11/19 21:31 Calmoseptine Ointment TOPICAL 1 applicatio 0600,2200 [facility] Administration Protocol Cholecalciferol 2,000 unit 03/24/19 08:00 [facility] D [facility] Diclofenac Sodium 25 mg 03/11/19 06:00 03/11/19 17:59 Diclofenac Sodium PO 25 mg BID [facility] Administration Divalproex Sodium 500 mg 03/11/19 08:00 03/11/19 17:58 [facility] Administration Enoxaparin Sodium 40 mg 03/11/19 06:00 03/11/19 04:11 Lovenox SC 40 mg DAILY@0600 [facility] Administration Furosemide 40 mg 03/10/19 22:00 03/11/19 13:52 Lasix PO 40 mg BIDLX [facility] Administration Gabapentin 300 mg 03/11/19 06:00 03/11/19 18:00 Neurontin PO 300 mg BID [facility] Administration Heparin Sodium (Beef Lung) 50 units 03/10/19 21:25 IV UD PRN HEPARIN FLUSH Hydrocortisone 1 applic 03/11/19 22:00 03/11/19 21:32 Hytone TOPICAL 1 applicatio 599,2199 [facility] Administration Protocol Vancomycin HCl 1,250 mg/ 275 mls @ 167 mls/hr 03/10/19 23:00 03/11/19 17:58 Sodium Chloride IV 04/16/19 23:00 167 mls/hr Q18H [facility] Administration Sodium Chloride 250 mls @ 15 mls/hr 03/10/19 21:25 03/10/19 23:25 IV 15 mls/hr .[id number] PRN Administration SALINE FLUSH Levothyroxine Sodium 112 mcg 03/11/19 06:00 03/11/19 04:13 Synthroid PO 112 mcg DAILY@0600 [facility] Administration Linagliptin 5 mg 03/11/19 06:00 03/11/19 04:15 Tradjenta PO 5 mg DAILY [facility] Administration Losartan Potassium 100 mg 03/10/19 22:00 03/11/19 17:59 Cozaar PO 100 mg BID [facility] Administration Melatonin 10 mg 03/10/19 22:00 03/11/19 21:31 Melatonin PO 10 mg QHS [facility] Administration Metoprolol Succinate 12.5 mg 03/10/19 22:00 03/11/19 18:00 Toprol Xl (Beta Romel) PO 12.5 mg BID [facility] Administration Multi-Ingredient Cream 1 applic 03/11/19 06:00 03/11/19 21:31 Eucerin TOPICAL 1 applicatio 599,2199 [facility] Administration Protocol Nutritional Formula 1 packet 03/11/19 08:00 03/11/19 17:59 Edy - [place] Flavor PO 1 packet BIDCM [facility] Administration Nystatin 1 applic 03/10/19 22:00 03/11/19 21:32 Mycostatin Powder TOPICAL 1 applicatio 599,2199 [facility] Administration Protocol Ondansetron HCl 4 mg 03/11/19 18:23 Zofran Odt PO Q8H PRN PRN NAUSEA Oxycodone HCl 10 mg 03/10/19 20:04 03/11/19 04:08 Oxyir PO 10 mg Q4H PRN PRN Administration SEVERE PAIN (6-08/28) Paroxetine HCl 40 mg 03/11/19 06:00 03/11/19 04:13 Paxil PO 40 mg DAILY [facility] Administration Polyethylene Glycol 17 gm 03/11/19 06:00 03/11/19 04:08 Miralax PO 17 gm DAILY [facility] Administration Potassium Chloride 20 meq 03/10/19 22:00 03/11/19 17:59 K-Dur PO 20 meq BIDCM [facility] Administration Rifampin 300 mg 03/10/19 22:00 03/11/19 18:00 Rifadin PO 300 mg BID [facility] Administration Simvastatin 40 mg 03/10/19 22:00 03/11/19 21:31 Zocor PO 40 mg QHS [facility] Administration Sodium Chloride 10 - 20 ml 03/10/19 21:25 03/11/19 18:00 IV 10 ml UD PRN Administration PICC FLUSH Trazodone HCl 50 mg 03/10/19 22:00 03/11/19 21:31 Desyrel PO 50 mg QHS [facility] Administration Problem List (Last Reviewed 01/26/19 @ 17:02 by Bib Judge DO) Hypothyroidism (Chronic) Sleep apnea (Chronic) Body mass index (BMI) 40.0-44.9, adult (Chronic) Vital Signs Temp Pulse Resp BP Pulse Ox 98.5 F 60 18 167/68 H 96 03/11/19 15:59 03/11/19 18:00 03/11/19 15:59 03/11/19 18:00 03/11/19 15:59 Oxygen Delivery Method Room Air Weight: 117.197 kg Body Mass Index (BMI) 43.2 Finger Stick Blood Glucose 89 Assessment/Plan: Psychotropic Medications: Unnecessary Medications: Bowel Regimen: - Provider Comments Provider responsibility: Provider responsible to enter orders to implement recommendations Provider Comments to Recommendations by Pharmacy: Agree
[2019-03-11 14:50] VITALS: PULSE 60; RESP 18; O2SAT 95
--- NOTE | 2019-03-11 15:01 | PHA.CONS_ITS ---
<JoselinNestor tavares D - Last Filed: 03/11/19 14:35> Progress Note - Pharmacy Subjective: TCU Admission Objective: Allergies cocaine Allergy (Verified 09/11/18 13:52) Unknown atorvastatin calcium [From Lipitor] Adverse Reaction (Verified 09/11/18 13:52) Pain in joints haloperidol [From Haldol] Adverse Reaction (Verified 09/11/18 13:52) Other WENT CRAZY morphine Adverse Reaction (Verified 09/11/18 13:52) Other extremely aggitated oxycodone [From OxyIR] Adverse Reaction (Verified 09/11/18 13:52) Pain in joints extremely aggitated prednisone Adverse Reaction (Verified 09/11/18 13:52) ANXIOUS, INSOMNIA STERIODS Adverse Reaction (Uncoded 08/16/18 02:59) Other ANXIETY INSOMNIA Current Medications Generic Name Dose Route Start Last Admin Trade Name Freq PRN Reason Stop Dose Admin Acetaminophen 1,000 mg 03/10/19 20:01 Tylenol PO Q6H PRN PRN MILD PAIN (1-3/10) Allopurinol 100 mg 03/11/19 08:00 03/11/19 08:57 [facility] Bisacodyl 10 mg 03/10/19 20:04 Dulcolax PO DAILY PRN Constipation Calamine/Phenol 1 applic 03/10/19 22:00 03/11/19 04:12 Calmoseptine Ointment TOPICAL 1 applicatio 0600,2200 [facility] Administration Protocol Cholecalciferol 2,000 unit 03/24/19 08:00 [facility] Diclofenac Sodium 25 mg 03/11/19 06:00 03/11/19 04:14 Diclofenac Sodium PO 25 mg BID [facility] Administration Divalproex Sodium 500 mg 03/11/19 08:00 03/11/19 08:57 [facility] Enoxaparin Sodium 40 mg 03/11/19 06:00 03/11/19 04:11 Lovenox SC 40 mg DAILY@0600 [facility] Administration Furosemide 40 mg 03/10/19 22:00 03/11/19 13:52 Lasix PO 40 mg BIDLX [facility] Administration Gabapentin 300 mg 03/11/19 06:00 03/11/19 04:11 Neurontin PO 300 mg BID [facility] Administration Heparin Sodium (Beef Lung) 50 units 03/10/19 21:25 IV UD PRN HEPARIN FLUSH Hydrocortisone 1 applic 03/11/19 18:00 Hytone TOPICAL BID [facility] Protocol Vancomycin HCl 1,250 mg/ 275 mls @ 167 mls/hr 03/10/19 23:00 03/10/19 23:25 Sodium Chloride IV 04/16/19 23:00 167 mls/hr Q18H [facility] Administration Sodium Chloride 250 mls @ 15 mls/hr 03/10/19 21:25 03/10/19 23:25 IV 15 mls/hr .[id number] PRN Administration SALINE FLUSH Levothyroxine Sodium 112 mcg 03/11/19 06:00 03/11/19 04:13 Synthroid PO 112 mcg DAILY@0600 [facility] Administration Linagliptin 5 mg 03/11/19 06:00 03/11/19 04:15 Tradjenta PO 5 mg DAILY [facility] Administration Losartan Potassium 100 mg 03/10/19 22:00 03/11/19 04:12 Cozaar PO 100 mg BID [facility] Administration Melatonin 10 mg 03/10/19 22:00 03/10/19 21:32 Melatonin PO 10 mg QHS [facility] Administration Metoprolol Succinate 12.5 mg 03/10/19 22:00 03/11/19 04:14 Toprol Xl (Beta Romel) PO 12.5 mg BID [facility] Administration Multi-Ingredient Cream 1 applic 03/11/19 06:00 03/11/19 04:11 Eucerin TOPICAL 1 applicatio 0600,2200 [facility] Administration Protocol Nutritional Formula 1 packet 03/11/19 08:00 03/11/19 08:58 Edy - Floyd Flavor PO 1 packet BIDCM [facility] Administration Nystatin 1 applic 03/10/19 22:00 03/11/19 04:11 Mycostatin Powder TOPICAL 1 applicatio 0600,2200 [facility] Administration Protocol Oxycodone HCl 10 mg 03/10/19 20:04 03/11/19 04:08 Oxyir PO 10 mg Q4H PRN PRN Administration SEVERE PAIN (6-10/10) Paroxetine HCl 40 mg 03/11/19 06:00 03/11/19 04:13 Paxil PO 40 mg DAILY [facility] Administration Polyethylene Glycol 17 gm 03/11/19 06:00 03/11/19 04:08 Miralax PO 17 gm DAILY [facility] Administration Potassium Chloride 20 meq 04/22/19 22:00 03/11/19 08:57 K-Dur PO 20 meq BIDCM [facility] Administration Rifampin 300 mg 03/10/19 22:00 03/11/19 04:11 Rifadin PO 300 mg BID [facility] Administration Simvastatin 40 mg 03/10/19 22:00 03/10/19 21:33 Zocor PO 40 mg QHS [facility] Administration Sodium Chloride 10 - 20 ml 03/10/19 21:25 03/10/19 23:25 IV 20 ml UD PRN Administration PICC FLUSH Trazodone HCl 50 mg 03/10/19 22:00 03/10/19 21:31 Desyrel PO 50 mg QHS [facility] Administration Problem List (Last Reviewed 01/26/19 @ 17:02 by Bib Judge DO) Hypothyroidism (Chronic) Sleep apnea (Chronic) Body mass index (BMI) 40.0-44.9, adult (Chronic) Vital Signs Temp Pulse Resp BP Pulse Ox 98.1 F 77 17 152/74 H 95 03/10/19 18:59 03/11/19 04:14 03/10/19 18:59 03/11/19 04:14 03/10/19 18:59 Oxygen Delivery Method Room Air Weight: 117.197 kg Body Mass Index (BMI) 43.2 Finger Stick Blood Glucose 89 Assessment/Plan: 1) Pain APAP for mild pain, oxycodone for severe pain, gabapentin, diclofenac, divalproex. Continue to monitor prn medication use, daily pain scores. 2) ID Rifampin, vancomycin with pharmacy following. Continue to monitor renal fun ction, vancomycin levels, s/s infection. 3) Heart Failure/HLD Furosemide/KCL, losartan, metoprolol, simvastatin. Continue to monitor BP/HR, renal function, electrolytes, lipids. 4) DM2 Dulaglutide, empagliflozin, linagliptin. Continue to monitor BGT, s/s hyper/hypoglycemia. 5) Hypothyroidism Levothyroxine. Continue to monitor s/s hyper/hypothyroidism. 6) DVT PPx Enoxaparin. Continue to monitor s/s bleeding/clot. 7) Gout Allopurinol. Continue to monitor s/s gout. 8) Nutrition D, Edy,. Continue to monitor clinically. 9) Sleep Melatonin, trazodone. Continue to monitor for insomnia. Psychotropic Medications: 10) Depression Paroxetine. Continue to monitor s/s depression. Unnecessary Medications: None Bowel Regimen: 11) PEG, prn bisacodyl. Continue to monitor prn medication use, for constipation/diarrhea. Date of Note:: 03/11/19 - Provider Comments Provider responsibility: Provider responsible to enter orders to implement recommendations <Gil Wheeler Chi - Last Filed: 03/11/19 22:41> Progress Note - Pharmacy Subjective: [] Objective: Allergies cocaine Allergy (Verified 09/11/18 13:52) Unknown atorvastatin calcium [From Lipitor] Adverse Reaction (Verified 09/11/18 13:52) Pain in joints haloperidol [From Haldol] Adverse Reaction (Verified 09/11/18 13:52) Other WENT CRAZY morphine Adverse Reaction (Verified 09/11/18 13:52) Other extremely aggitated oxycodone [From OxyIR] Adverse Reaction (Verified 09/11/18 13:52) Pain in joints extremely aggitated prednisone Adverse Reaction (Verified 09/11/18 13:52) ANXIOUS, INSOMNIA STERIODS Adverse Reaction (Uncoded 08/16/18 02:59) Other ANXIETY INSOMNIA Current Medications Generic Name Dose Route Start Last Admin Trade Name Freq PRN Reason Stop Dose Admin Acetaminophen 1,000 mg 03/10/19 20:01 Tylenol PO Q6H PRN PRN MILD PAIN (1-3/10) Allopurinol 100 mg 03/11/19 08:00 03/11/19 08:57 [facility] Administration Bisacodyl 10 mg 03/10/19 20:04 Dulcolax PO DAILY PRN Constipation Calamine/Phenol 1 applic 03/10/19 22:00 03/11/19 21:31 Calmoseptine Ointment TOPICAL 1 applicatio 0600,2200 [facility] Administration Protocol Cholecalciferol 2,000 unit 03/24/19 08:00 [facility] Diclofenac Sodium 25 mg 03/11/19 06:00 03/11/19 17:59 Diclofenac Sodium PO 25 mg BID [facility] Administration Divalproex Sodium 500 mg 03/11/19 08:00 03/11/19 17:58 [facility] Administration Enoxaparin Sodium 40 mg 03/11/19 06:00 03/11/19 04:11 Lovenox SC 40 mg DAILY@0600 [facility] Administration Furosemide 40 mg 03/10/19 22:00 03/11/19 13:52 Lasix PO 40 mg BIDLX [facility] Administration Gabapentin 300 mg 03/11/19 06:00 03/11/19 18:00 Neurontin PO 300 mg BID [facility] Administration Heparin Sodium (Beef Lung) 50 units 03/10/19 21:25 IV UD PRN HEPARIN FLUSH Hydrocortisone 1 applic 03/11/19 22:00 03/11/19 21:32 Hytone TOPICAL 1 applicatio 599,2199 [facility] Administration Protocol Vancomycin HCl 1,250 mg/ 275 mls @ 167 mls/hr 03/10/19 23:00 03/11/19 17:58 Sodium Chloride IV 04/16/19 23:00 167 mls/hr Q18H [facility] Administration Sodium Chloride 250 mls @ 15 mls/hr 03/10/19 21:25 03/10/19 23:25 IV 15 mls/hr .[id number] PRN Administration SALINE FLUSH Levothyroxine Sodium 112 mcg 03/11/19 06:00 03/11/19 04:13 Synthroid PO 112 mcg DAILY@0600 [facility] Administration Linagliptin 5 mg 03/11/19 06:00 03/11/19 04:15 Tradjenta PO 5 mg DAILY [facility] Administration Losartan Potassium 100 mg 03/10/19 22:00 03/11/19 17:59 Cozaar PO 100 mg BID [facility] Administration Melatonin 10 mg 03/10/19 22:00 03/11/19 21:31 Melatonin PO 10 mg QHS [facility] Administration Metoprolol Succinate 12.5 mg 03/10/19 22:00 03/11/19 18:00 Toprol Xl (Beta Romel) PO 12.5 mg BID [facility] Administration Multi-Ingredient Cream 1 applic 03/11/19 06:00 03/11/19 21:31 Eucerin TOPICAL 1 applicatio 599,2199 [facility] Administration Protocol Nutritional Formula 1 packet 03/11/19 08:00 03/11/19 17:59 Edy - Floyd Flavor PO 1 packet BIDCM [facility] Administration Nystatin 1 applic 03/10/19 22:00 03/11/19 21:32 Mycostatin Powder TOPICAL 1 applicatio 599,2199 [facility] Administration Protocol Ondansetron HCl 4 mg 03/11/19 18:23 Zofran Odt PO Q8H PRN PRN NAUSEA Oxycodone HCl 10 mg 03/10/19 20:04 03/11/19 04:08 Oxyir PO 10 mg Q4H PRN PRN Administration SEVERE PAIN (6-08/28) Paroxetine HCl 40 mg 03/11/19 06:00 03/11/19 04:13 Paxil PO 40 mg DAILY [facility] Administration Polyethylene Glycol 17 gm 03/11/19 06:00 03/11/19 04:08 Miralax PO 17 gm DAILY [facility] Administration Potassium Chloride 20 meq 03/10/19 22:00 03/11/19 17:59 K-Dur PO 20 meq BIDCM [facility] Administration Rifampin 300 mg 03/10/19 22:00 03/11/19 18:00 Rifadin PO 300 mg BID [facility] Administration Simvastatin 40 mg 03/10/19 22:00 03/11/19 21:31 Zocor PO 40 mg QHS [facility] Administration Sodium Chloride 10 - 20 ml 03/10/19 21:25 03/11/19 18:00 IV 10 ml UD PRN Administration PICC FLUSH Trazodone HCl 50 mg 03/10/19 22:00 03/11/19 21:31 Desyrel PO 50 mg QHS [facility] Administration Problem List (Last Reviewed 01/26/19 @ 17:02 by Bib Judge DO) Hypothyroidism (Chronic) Sleep apnea (Chronic) Body mass index (BMI) 40.0-44.9, adult (Chronic) Vital Signs Temp Pulse Resp BP Pulse Ox 98.5 F 60 18 167/68 H 96 03/11/19 15:59 03/11/19 18:00 03/11/19 15:59 03/11/19 18:00 03/11/19 15:59 Oxygen Delivery Method Room Air Weight: 117.197 kg Body Mass Index (BMI) 43.2 Finger Stick Blood Glucose 89 Assessment/Plan: Psychotropic Medications: Unnecessary Medications: Bowel Regimen: - Provider Comments Provider responsibility: Provider responsible to enter orders to implement recommendations Provider Comments to Recommendations by Pharmacy: Agree
--- NOTE | 2019-03-11 15:45 | PCM.PN.ID ---
Subjective: Feeling better, mild nausea, no fever. - Physical Exam General: Alert, Cooperative, No apparent distress Lungs: Clear to auscultation, Normal air movement Cardiovascular: Regular rate, Regular Rhythm Abdomen: Soft, Non Tender, Non-Distended Skin: Ulcer/ Wound - RLE wrapped Vital Signs Temp Pulse Resp BP Pulse Ox 98.1 F 60 18 152/74 H 95 03/10/19 18:59 03/11/19 14:50 03/11/19 14:50 03/11/19 04:14 03/11/19 14:50 Oxygen Delivery Method Room Air Weight: 117.197 kg Body Mass Index (BMI) 43.2 Finger Stick Blood Glucose 89 Intake and Output for Last 24 Hours 03/09/19 03/10/19 03/11/19 23:59 23:59 23:59 Intake Total 480 / 480 Output Total 200 / 200 Balance 280 / 280 POC Glucose 03/11/19 03/11/19 03/10/19 11:20 06:39 21:17 POC Glucose 160 H 123 H 177 H Medical Necessity - Tobacco Use Smoking Status: Former smoker Tobacco Use: Non-smoker Route of nutrition/ use of supplements: [] Nutritional Intake: [] IV Site: [] Carney Catheter: [] - Assessment/Plan Antibiotics: [] Assessment/Plan: [] 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 Now s/p OR 03/[address] Fernando. Clinically stable, no fever, no wbc. No sign of endocarditis or metastatic infection on exam. Infection in wound extended down to hardware, now exposed. Added rifampin for biofilm penetration. Bcx neg since 03/04. Plan will be for 6 weeks of vanc and po rifampin and the senior care po abx. Stop date for iv vanc will be 04/16/19. Weekly bmp, cbc, LFT, vanc trough, and esr while on iv abx. Will follow
[2019-03-11 15:59] VITALS: BP 167/68; PULSE 60; RESP 18; TEMP 36.9; O2SAT 96
[2019-03-11 17:35] LABS: Bedside Glucose 100 mg/dL (70-110)
[2019-03-11 18:00] VITALS: BP 167/68; PULSE 60
[2019-03-11] MEDS: 0.9% NaCl PICC Flush IV (18:00)
[2019-03-11] MEDS: traZODone 50 MG Tablet PO (21:31)
[2019-03-11] MEDS: MELATONIN 10 MG TABLET PO (21:31)
[2019-03-11] MEDS: Hydrocortisone 2.5% Crm 1 APPLIC TOPICAL (21:32)
[2019-03-11 22:01] LABS: Bedside Glucose 150 mg/dL (70-110)
[2019-03-12] MEDS: Polyethylene Glycol 3350 17 GM PACKET PO (04:33)
[2019-03-12] MEDS: LINAGLIPTIN 5 MG TABLET PO (04:33)
[2019-03-12] MEDS: Levothyroxine 112 MCG Tablet PO (04:33)
[2019-03-12] MEDS: rifAMPin 300 MG Capsule PO ×2 (04:33→17:34)
[2019-03-12] MEDS: Furosemide 40 MG Tablet PO ×2 (04:34→13:30)
[2019-03-12] MEDS: Gabapentin 300 MG Capsule PO ×2 (04:34→17:34)
[2019-03-12] MEDS: Paroxetine 20 MG Tablet 40 MG PO (04:34)
[2019-03-12] MEDS: Losartan Potassium 100 MG Tablet PO ×2 (04:35→17:34)
[2019-03-12] MEDS: DICLOFENAC SODIUM 25 MG TABLET.DR PO ×2 (04:35→17:34)
[2019-03-12] MEDS: 0.9% NaCl PICC Flush IV ×2 (04:36→10:55)
[2019-03-12 04:43] VITALS: BP 148/72; PULSE 61
[2019-03-12] MEDS: Metoprolol(XL)Succ 25 MG Tablet 12.5 MG PO ×2 (04:43→17:33)
[2019-03-12] MEDS: Empagliflozin 25 MG Tablet PO (04:44)
[2019-03-12] MEDS: Menthol/Lanolin/Calamine/Znox 113 GM Tube 1 APPLIC TOPICAL ×2 (04:44→21:15)
[2019-03-12] MEDS: Hydrocortisone 2.5% Crm 1 APPLIC TOPICAL ×2 (04:45→21:16)
[2019-03-12] MEDS: Enoxaparin 40 MG/0.4 ML Syringe SC (04:46)
[2019-03-12 04:55] LABS: Absolute Neutrophil Count 5.5 X10^3/uL (2.0-7.7); Basophil# 0.02 X10^3/uL; Basophil% 0.2 % (0-1); Eosinophil# 0.47 X10^3/uL; Erythrocyte Sedimentation Rate 68 mm/hr (0-20); Hematocrit 36.3 % (40-54); Hemoglobin 11.6 g/dl (13.0-16.5); Lymphocyte % 28.6 % (19-41); Mean Corpuscular Hgb 29.1 pg (27.0-32.0); Mean Platelet Vol. 8.6 fl (6.2-12.0); Monocyte# 0.76 X10^3/uL; Monocyte% 8.1 % (0-10); Neutrophil # 5.47 X10^3/uL (2.7-7.7); Neutrophil % 57.9 % (47-70); POSITIVE COUNT NO; POSITIVE DIFFERENTIAL NO; POSITIVE MORPHOLOGY NO; Platelet Count 607 K/mm3 (150-450); RBC Distribution Width CV 14.9 % (11.6-14.6); RBC Distribution Width SD 49.9 fl (35.1-43.9); Red Blood Count 3.99 M/mm3 (4.6-6.2); White Blood Count 9.4 K/mm3 (4.4-11.0)
[2019-03-12] MEDS: Nystatin Powder 15gm Bottle 1 APPLIC TOPICAL ×2 (04:56→21:17)
[2019-03-12 04:58] LABS: AST(SGOT) 12 U/L (15-37); Alanine Aminotransfer ALT/SGPT 12 U/L (16-61); Albumin, Serum 2.6 g/dL (3.2-5.0); Alkaline Phosphatase 164 U/L (45-117); Anion Gap 8 (5-15); BUN 21 mg/dL (7-18); BUN/Creat Ratio 31.4 RATIO (10-20); Chloride 102 mmol/L (98-107); Creatinine, Serum 0.67 mg/dL (0.70-1.30); EST Glomerular Filtration Rate 124 mL/min (>60); Est Glom Filt Rate - Afr Amer 150 mL/min (>60); Estimated Creatinine Clearance 61.51 ml/min; Globulin 4.4 g/dL (2.2-4.2); Glucose 125 mg/dL (74-106); Potassium 3.5 mmol/L (3.5-5.1); Sodium Level 142 mmol/L (136-145)
[2019-03-12 06:41] LABS: Bedside Glucose 126 mg/dL (70-110)
[2019-03-12] MEDS: Allopurinol 100 MG Tablet PO (08:10)
[2019-03-12] MEDS: Divalproex Sodium 250 MG Tablet 500 MG PO ×2 (08:10→17:34)
[2019-03-12] MEDS: 0.9% NaCl IVPB Med Flush (250 mL) 15 ML IV (10:57)
[2019-03-12 11:05] LABS: Bedside Glucose 184 mg/dL (70-110)
--- NOTE | 2019-03-12 14:44 | NURSING ---
wound photo: right lateral lower leg
[2019-03-12 16:00] VITALS: BP 161/75; PULSE 58; RESP 16; TEMP 36.4; O2SAT 92
[2019-03-12 17:01] LABS: Bedside Glucose 190 mg/dL (70-110)
--- NOTE | 2019-03-12 17:02 | PCM.PN.SRG ---
Subjective: Postop #7 Patient known to me. He had surgery 03/05/19 where he underwent surgical preparation right proximal lateral leg with incision and drainage and excisional debridement nonhealing necrotic MRSA ulcer with exposed hardware (105 cm2). Wound culture showed MRSA. He is currently on Vancomycin and Rifampin because he has exposed hardware from his fracture repair in 02/04. - Physical Exam General: Alert, Oriented x3 HEENT: PERRLA, EOMI Oral: Moist Mucosa Neck: Supple Abdomen: Soft, Non-Distended Skin: Ulcer/ Wound - the right proximal lateral leg wound is stable. VAC in place. Minimal drainage in the canister. Neurological: Cranial nerves II-XII grossly intact Psych/Mental Status: Normal Affect, Appropriate Vital Signs Temp Pulse Resp BP Pulse Ox 97.6 F L 58 L 16 161/75 H 92 03/12/19 16:00 03/12/19 16:00 03/12/19 16:00 03/12/19 16:00 03/12/19 16:00 Oxygen Delivery Method Room Air Weight: 258 lb 6 oz Body Mass Index (BMI) 43.2 Finger Stick Blood Glucose 89 Intake and Output for Last 24 Hours 03/10/19 03/11/19 03/12/19 23:59 23:59 23:59 Intake Total 900 / 900 1500 / 1500 Output Total 200 / 200 Balance 700 / 700 1500 / 1500 Laboratory Tests Past 24 Hrs 03/12/19 03/12/19 04:35 04:35 WBC 9.4 RBC 3.99 L Hgb 11.6 L Hct 36.3 L MCV 91.0 MCH 29.1 MCHC 32.0 RDW 14.9 H RDW Differential 49.9 H Plt Count 607 H MPV 8.6 Immature Gran % (Auto) 0.200 Neut % (Auto) 57.9 Lymph % (Auto) 28.6 [place] % (Auto) 8.1 Eos % (Auto) 5.0 Baso % (Auto) 0.2 Absolute Neuts (auto) 5.5 Absolute Lymphs (auto) 2.70 Total Counted Not Reportable ESR 68 H Sodium 142 Potassium 3.5 Chloride 102 Carbon Dioxide 32.0 Anion Gap 8 BUN 21 H Creatinine 0.67 L Estim Creat Clear Calc 61.51 Est GFR (MDRD) Af Amer 150 Est GFR (MDRD) Non-Af 124 BUN/Creatinine Ratio 31.4 H Glucose 125 H Calcium 9.0 Total Bilirubin 0.30 Direct Bilirubin 0.10 AST 12 L ALT 12 L Alkaline Phosphatase 164 H Total Protein 7.0 Albumin 2.6 L Globulin 4.4 H POC Glucose 03/12/19 03/12/19 03/12/19 16:51 11:00 06:29 POC Glucose 190 H 184 H 126 H 03/11/19 03/11/19 21:44 17:27 POC Glucose 150 H 100 Medical Necessity - Tobacco Use Smoking Status: Former smoker Tobacco Use: Non-smoker Assessment/Plan All Active Problems (Last Reviewed 01/26/19 @ 17:02 by Bib Judge DO) Abscess of right leg (Acute) MRSA (methicillin resistant Staphylococcus aureus) infection (Acute) Unspecified fracture of shaft of right tibia, sequela (Acute) MRSA bacteremia (Resolved) Hypokalemia (Resolved) Hypothyroidism (Resolved) 1. 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 2. Recent history of ORIF right tibial plateau fracture. 3. MRSA. 4. MRSA bacteremia. 5. Diabetes mellitus. 6. Status right knee replacement, medial compartment. 7. Fall. 8. Exposed hardware right proximal lateral leg from tibial plateau fracture repair. 9. s/p surgical preparation right proximal lateral leg with incision and drainage and excisional debridement nonhealing necrotic MRSA ulcer with exposed hardware (105 cm2). Wound is stable. VAC in place. Minimal drainage in the canister. Operative culture shows MRSA. Continue Vancomycin and Rifampin because of the exposed hardware. Prealbumin was 14.2. Encourage nutritional supplementation with protein to help the healing process. Discussed with Dr. Rutledge. Ideally he would like to wait a couple of months to see if there is reasonable healing to remove the hardware. If the bones heal properly, then remove the hardware and check the bone for osteomyelitis. When it is negative then proceed with soft tissue coverage. If bony healing becomes problematic, the last resort option would be an above knee amputation. Patient and his voice understanding.
[2019-03-12 17:33] VITALS: BP 161/75; PULSE 60
[2019-03-12 17:37] VITALS: PULSE 60
--- NOTE | 2019-03-12 17:40 | NURSING ---
ALL CARE GIVEN IN ROOM DUE TO PT IN PRECAUTIONS FOR MRSA.
[2019-03-12 21:00] VITALS: PULSE 62; RESP 18; O2SAT 93
[2019-03-12 21:11] LABS: Bedside Glucose 199 mg/dL (70-110)
[2019-03-12] MEDS: traZODone 50 MG Tablet PO (21:11)
[2019-03-12] MEDS: MELATONIN 10 MG TABLET PO (21:12)
[2019-03-13 05:33] LABS: Vancomycin, Trough Level 14.3 ug/mL (5.0-15.0)
[2019-03-13] MEDS: Menthol/Lanolin/Calamine/Znox 113 GM Tube 1 APPLIC TOPICAL ×2 (05:58→22:10)
[2019-03-13] MEDS: Levothyroxine 112 MCG Tablet PO (05:59)
[2019-03-13] MEDS: Furosemide 40 MG Tablet PO ×2 (05:59→14:30)
[2019-03-13] MEDS: Polyethylene Glycol 3350 17 GM PACKET PO (05:59)
[2019-03-13] MEDS: Paroxetine 20 MG Tablet 40 MG PO (05:59)
[2019-03-13] MEDS: DICLOFENAC SODIUM 25 MG TABLET.DR PO ×2 (05:59→17:27)
[2019-03-13] MEDS: Gabapentin 300 MG Capsule PO ×2 (05:59→17:27)
[2019-03-13] MEDS: Empagliflozin 25 MG Tablet PO (05:59)
[2019-03-13] MEDS: rifAMPin 300 MG Capsule PO ×2 (05:59→17:27)
[2019-03-13] MEDS: LINAGLIPTIN 5 MG TABLET PO (05:59)
[2019-03-13] MEDS: Losartan Potassium 100 MG Tablet PO ×2 (05:59→17:27)
[2019-03-13] MEDS: Enoxaparin 40 MG/0.4 ML Syringe SC (06:00)
[2019-03-13] MEDS: Nystatin Powder 15gm Bottle 1 APPLIC TOPICAL ×2 (06:01→22:18)
[2019-03-13] MEDS: Hydrocortisone 2.5% Crm 1 APPLIC TOPICAL ×2 (06:02→22:14)
[2019-03-13 06:08] VITALS: BP 112/68; PULSE 60
[2019-03-13] MEDS: Metoprolol(XL)Succ 25 MG Tablet 12.5 MG PO ×2 (06:08→17:26)
[2019-03-13] MEDS: 0.9% NaCl PICC Flush IV ×2 (06:21→23:12)
[2019-03-13 06:51] LABS: Bedside Glucose 154 mg/dL (70-110)
--- NOTE | 2019-03-13 07:30 | PCM.RX.CS ---
Consult Pharmacy has been consulted to manage selected antiobiotic: Vancomycin Type of Consult: Follow-up Prior Doses of Antibiotics Received/Current Regimen: Vancomycin 1250mg q18h x4 doses Labs: Sodium 142 mmol/L (136-145) 03/12/19 04:35 Potassium 3.5 mmol/L (3.5-5.1) 03/12/19 04:35 Chloride 102 mmol/L (98-107) 03/12/19 04:35 Carbon Dioxide 32.0 mmol/L (21.0-32.0) 03/12/19 04:35 Anion Gap 8 (5-15) 03/12/19 04:35 BUN 21 mg/dL (7-18) H 03/12/19 04:35 Creatinine 0.67 mg/dL (0.70-1.30) L 03/12/19 04:35 Est GFR (MDRD) Af Amer 150 mL/min (>60) 03/12/19 04:35 Est GFR (MDRD) Non-Af 124 mL/min (>60) 03/12/19 04:35 BUN/Creatinine Ratio 31.4 RATIO (10-20) H 03/12/19 04:35 Glucose 125 mg/dL (74-106) H 03/12/19 04:35 Vancomycin Trough 14.3 ug/mL (5.0-15.0) 03/13/19 04:34 Weight used for dosin kg - lean body weight Estimated Creatinine Clearance: 78ml/min Goal Trough: 15-20 mcg/mL Pharmacy Plan for Drug Dosing: Pt has been on several q12h doses of Vancomycin resulting in elevated troughs. Pt was moved to a 1250mg q18h dosing schedule and the resulting trough was 14.3. Pt's dose will be changed to 1500mg and kept on a q18h schedule. trough will be drawn before the 4th dose on 03/15/19 at 0430. dosing was based on lean body weight of 67kg Pharmacy Service will continue to monitor and adjust dosing as required. Follow-Up Labs: Trough Vancomycin - 03/15/19 at 0430
[2019-03-13] MEDS: Divalproex Sodium 250 MG Tablet 500 MG PO ×2 (08:30→17:22)
[2019-03-13] MEDS: Allopurinol 100 MG Tablet PO (08:32)
[2019-03-13 10:00] VITALS: PULSE 62; RESP 18; O2SAT 93
[2019-03-13 11:30] LABS: Bedside Glucose 198 mg/dL (70-110)
--- NOTE | 2019-03-13 15:18 | NURSING ---
All care given in PT room. Pt also noted to have a large rash covering his back and some additional patches on his stomach. Pt on IV vancomycin and stated he got a rash when on this medication previously. Sher YEE aware
[2019-03-13 16:00] VITALS: BP 124/99; PULSE 60; RESP 16; TEMP 36.7; O2SAT 97
--- NOTE | 2019-03-13 16:28 | PN.ID_ITS ---
Subjective: Some rash and itching on back. Some loose stools after he says he was given laxative by Dr. Wheeler. No fever. - Physical Exam General: Alert, Cooperative, No apparent distress Lungs: Clear to auscultation, Normal air movement Cardiovascular: Regular rate, Regular Rhythm Abdomen: Soft, Non Tender, Non-Distended Skin: Ulcer/ Wound - RLE wrapped, Excoriated - on back Vital Signs Temp Pulse Resp BP Pulse Ox 97.6 F L 60 18 112/68 93 03/12/19 16:00 03/13/19 06:08 03/12/19 21:00 03/13/19 06:08 03/12/19 21:00 Oxygen Delivery Method Room Air Weight: 117.197 kg Body Mass Index (BMI) 43.2 Finger Stick Blood Glucose 89 Intake and Output for Last 24 Hours 03/11/19 03/12/19 03/13/19 23:59 23:59 23:59 Intake Total 900 / 900 2059 / 2059 Output Total 200 / 200 375 / 375 Balance 700 / 700 1685 / 1685 2009 Laboratory Tests Past 24 Hrs 03/13/19 04:34 Vancomycin Trough 14.3 POC Glucose 03/13/19 03/13/19 03/12/19 10:57 06:42 21:05 POC Glucose 198 H 154 H 199 H 03/12/19 16:51 POC Glucose 190 H Medical Necessity - Tobacco Use Smoking Status: Former smoker Tobacco Use: Non-smoker Route of nutrition/ use of supplements: [] Nutritional Intake: [] IV Site: [] Carney Catheter: [] - Assessment/Plan Antibiotics: [] Assessment/Plan: [] 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 Now s/p OR 03/[address] Fernando. Clinically stable, no fever, no wbc. No sign of endocarditis or metastatic infection on exam. Infection in wound extended down to hardware, now exposed. Added rifampin for biofilm penetration. Bcx neg since 03/04. Plan will be for 6 weeks of vanc and po rifampin and the retirement po abx. Stop date for iv vanc will be 04/16/19. Weekly bmp, cbc, LFT, vanc trough, and esr while on iv abx. Will start benadryl to see if this helps rash/itching. Will follow
[2019-03-13 17:05] LABS: Bedside Glucose 157 mg/dL (70-110)
[2019-03-13 17:26] VITALS: PULSE 84
[2019-03-13 21:01] LABS: Bedside Glucose 170 mg/dL (70-110)
[2019-03-13] MEDS: traZODone 50 MG Tablet PO (22:11)
[2019-03-13] MEDS: MELATONIN 10 MG TABLET PO (22:11)
[2019-03-13] MEDS: DiphenhydrAMINE 25 MG Capsule 50 MG PO (22:13)
[2019-03-13] MEDS: oxyCODONE 5 MG Tablet 10 MG PO (22:16)
[2019-03-13] MEDS: 0.9% NaCl IVPB Med Flush (250 mL) 15 ML IV (23:12)
[2019-03-14] MEDS: LINAGLIPTIN 5 MG TABLET PO (04:40)
[2019-03-14] MEDS: Gabapentin 300 MG Capsule PO ×2 (04:41→17:22)
[2019-03-14] MEDS: Menthol/Lanolin/Calamine/Znox 113 GM Tube 1 APPLIC TOPICAL ×2 (04:41→22:20)
[2019-03-14] MEDS: Levothyroxine 112 MCG Tablet PO (04:41)
[2019-03-14] MEDS: DICLOFENAC SODIUM 25 MG TABLET.DR PO ×2 (04:41→17:25)
[2019-03-14] MEDS: rifAMPin 300 MG Capsule PO ×2 (04:41→17:24)
[2019-03-14] MEDS: Paroxetine 20 MG Tablet 40 MG PO (04:41)
[2019-03-14] MEDS: Furosemide 40 MG Tablet PO ×2 (04:41→13:09)
[2019-03-14] MEDS: Losartan Potassium 100 MG Tablet PO ×2 (04:42→17:24)
[2019-03-14] MEDS: Hydrocortisone 2.5% Crm 1 APPLIC TOPICAL ×2 (04:43→22:21)
[2019-03-14] MEDS: Nystatin Powder 15gm Bottle 1 APPLIC TOPICAL ×2 (04:43→22:20)
[2019-03-14 04:50] VITALS: BP 175/73; PULSE 66
[2019-03-14] MEDS: Metoprolol(XL)Succ 25 MG Tablet 12.5 MG PO (04:50)
[2019-03-14] MEDS: Polyethylene Glycol 3350 17 GM PACKET PO (04:50)
[2019-03-14] MEDS: Empagliflozin 25 MG Tablet PO (04:50)
[2019-03-14] MEDS: Enoxaparin 40 MG/0.4 ML Syringe SC (04:52)
[2019-03-14 06:30] LABS: Bedside Glucose 150 mg/dL (70-110)
[2019-03-14] MEDS: Divalproex Sodium 250 MG Tablet 500 MG PO ×2 (10:02→17:23)
[2019-03-14] MEDS: Allopurinol 100 MG Tablet PO (10:03)
[2019-03-14] MEDS: DULAGLUTIDE 1.5 MG/0.5 ML PEN.INJCTR SQ (10:08)
--- NOTE | 2019-03-14 10:17 | CASEMGMT ---
Addendum entered by Kay Mendoza 03/14/19 13:48: Student community mental health social worker MDS documentation reviewed. ANIL Devries Original Note: Brief interview for mental status (BIMS) and mood (PHQ-9) completed on this day. BIMS score 14/15. PHQ-9 score 04/14. Dax Borrero social work student
[2019-03-14 10:46] LABS: Bedside Glucose 181 mg/dL (70-110)
[2019-03-14 15:52] VITALS: BP 182/85; PULSE 56; RESP 18; TEMP 37.1; O2SAT 97
[2019-03-14] MEDS: DiphenhydrAMINE 25 MG Capsule 50 MG PO (16:16)
[2019-03-14] MEDS: 0.9% NaCl PICC Flush IV ×3 (16:19→22:22)
--- NOTE | 2019-03-14 16:52 | PCM.PN.ID ---
Subjective: Rash/itching/aches improved with benadryl. No fever - Physical Exam General: Alert, Cooperative, No apparent distress Lungs: Clear to auscultation, Normal air movement Cardiovascular: Regular rate, Regular Rhythm Abdomen: Soft, Non Tender, Non-Distended Skin: Excoriated - on back with some erythema Vital Signs Temp Pulse Resp BP Pulse Ox 98.7 F 56 L 18 182/85 H 97 03/14/19 15:52 03/14/19 15:52 03/14/19 15:52 03/14/19 15:52 03/14/19 15:52 Oxygen Delivery Method Room Air Weight: 117.197 kg Body Mass Index (BMI) 43.2 Finger Stick Blood Glucose 89 Intake and Output for Last 24 Hours 03/12/19 03/13/19 03/14/19 23:59 23:59 23:59 Intake Total 2059 / 2059 2470 / 2470 720 / 720 Output Total 375 / 375 Balance 1685 / 1685 2470 / 2470 720 / 720 POC Glucose 03/14/19 03/14/19 03/13/19 10:35 06:23 20:56 POC Glucose 181 H 150 H 170 H 03/13/19 16:53 POC Glucose 157 H Medical Necessity - Tobacco Use Smoking Status: Former smoker Tobacco Use: Non-smoker Route of nutrition/ use of supplements: [] Nutritional Intake: [] IV Site: [] Carney Catheter: [] - Assessment/Plan Antibiotics: [] Assessment/Plan: [] 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 Now s/p OR 03/[address] Fernando. Clinically stable, no fever, no wbc. No sign of endocarditis or metastatic infection on exam. Infection in wound extended down to hardware, now exposed. Added rifampin for biofilm penetration. Bcx neg since 03/04. Plan will be for 6 weeks of vanc and po rifampin and the alf po abx. Stop date for iv vanc will be 04/16/19. Weekly bmp, cbc, LFT, vanc trough, and esr while on iv abx. Better with benadryl. If rash does not cont to improve, will stop rifampin. Will follow
[2019-03-14 17:06] LABS: Bedside Glucose 119 mg/dL (70-110)
[2019-03-14 17:22] VITALS: BP 182/85; PULSE 56
[2019-03-14 21:46] LABS: Bedside Glucose 126 mg/dL (70-110)
[2019-03-14] MEDS: traZODone 50 MG Tablet PO (22:14)
[2019-03-14] MEDS: MELATONIN 10 MG TABLET PO (22:16)
[2019-03-15] MEDS: Acetaminophen 500 MG Tablet 1000 MG PO ×2 (01:37→20:44)
[2019-03-15] MEDS: Gabapentin 300 MG Capsule PO ×2 (04:59→18:04)
[2019-03-15] MEDS: LINAGLIPTIN 5 MG TABLET PO (04:59)
[2019-03-15 05:00] VITALS: BP 163/77; PULSE 65
[2019-03-15] MEDS: Losartan Potassium 100 MG Tablet PO ×2 (05:00→17:58)
[2019-03-15] MEDS: rifAMPin 300 MG Capsule PO ×2 (05:00→17:59)
[2019-03-15] MEDS: Furosemide 40 MG Tablet PO ×2 (05:00→14:26)
[2019-03-15] MEDS: Metoprolol(XL)Succ 25 MG Tablet 12.5 MG PO ×2 (05:00→17:59)
[2019-03-15] MEDS: Levothyroxine 112 MCG Tablet PO (05:00)
[2019-03-15] MEDS: Menthol/Lanolin/Calamine/Znox 113 GM Tube 1 APPLIC TOPICAL ×2 (05:03→19:47)
[2019-03-15] MEDS: Paroxetine 20 MG Tablet 40 MG PO (05:04)
[2019-03-15] MEDS: DICLOFENAC SODIUM 25 MG TABLET.DR PO ×2 (05:04→18:04)
[2019-03-15] MEDS: Enoxaparin 40 MG/0.4 ML Syringe SC (05:04)
[2019-03-15] MEDS: Empagliflozin 25 MG Tablet PO (05:08)
[2019-03-15] MEDS: Nystatin Powder 15gm Bottle 1 APPLIC TOPICAL ×2 (05:09→20:44)
[2019-03-15] MEDS: Hydrocortisone 2.5% Crm 1 APPLIC TOPICAL ×2 (05:10→19:47)
[2019-03-15 06:51] LABS: Bedside Glucose 116 mg/dL (70-110)
[2019-03-15] MEDS: Allopurinol 100 MG Tablet PO (09:17)
[2019-03-15] MEDS: DiphenhydrAMINE 25 MG Capsule 50 MG PO (09:18)
[2019-03-15] MEDS: Divalproex Sodium 250 MG Tablet 500 MG PO ×2 (09:19→17:58)
[2019-03-15 10:36] LABS: Bedside Glucose 126 mg/dL (70-110)
--- NOTE | 2019-03-15 10:43 | NURSING ---
All care provided in pt room d/t isolation for MRSA in wound.
[2019-03-15 15:00] VITALS: PULSE 57; RESP 18; O2SAT 97
[2019-03-15 15:36] VITALS: BP 178/68; PULSE 58; RESP 16; TEMP 36.4; O2SAT 94
[2019-03-15 16:45] LABS: Bedside Glucose 126 mg/dL (70-110)
[2019-03-15 17:59] VITALS: BP 178/68; PULSE 58
[2019-03-15] MEDS: oxyCODONE 5 MG Tablet 10 MG PO (19:47)
--- NOTE | 2019-03-15 19:55 | NURSING ---
Pt c/o not feeling well, generalized aches and pains. Given prn pain medication per request and explained other hs meds will be given later tonight. Pt okay with this. RN aware. Pt in isolation precautions for MRSA in wound. Continuing to monitor, anticipate needs. Pt alert and pleasant at this time.
[2019-03-15] MEDS: MELATONIN 10 MG TABLET PO (20:44)
[2019-03-15] MEDS: traZODone 50 MG Tablet PO (20:44)
--- NOTE | 2019-03-15 20:46 | NURSING ---
Pt continues to c/o generalized malaise. VS WNL. Given tylenol per request, stated oxyir 10mg 'helped'. Continuing to monitor.
[2019-03-15 21:26] LABS: Bedside Glucose 172 mg/dL (70-110)
[2019-03-16] MEDS: oxyCODONE 5 MG Tablet 10 MG PO ×3 (01:24→20:13)
[2019-03-16] MEDS: Acetaminophen 500 MG Tablet 1000 MG PO ×2 (03:08→23:28)
[2019-03-16 05:29] LABS: Vancomycin, Trough Level 16.8 ug/mL (5.0-15.0)
[2019-03-16] MEDS: DiphenhydrAMINE 25 MG Capsule 50 MG PO (05:31)
[2019-03-16 05:48] VITALS: PULSE 73
[2019-03-16] MEDS: Metoprolol(XL)Succ 25 MG Tablet 12.5 MG PO ×2 (05:48→17:59)
[2019-03-16] MEDS: Losartan Potassium 100 MG Tablet PO ×2 (05:49→17:55)
[2019-03-16] MEDS: Empagliflozin 25 MG Tablet PO (05:49)
[2019-03-16] MEDS: Levothyroxine 112 MCG Tablet PO (05:49)
[2019-03-16] MEDS: LINAGLIPTIN 5 MG TABLET PO (05:49)
[2019-03-16] MEDS: Furosemide 40 MG Tablet PO ×2 (05:49→14:38)
[2019-03-16] MEDS: Menthol/Lanolin/Calamine/Znox 113 GM Tube 1 APPLIC TOPICAL ×2 (05:49→20:12)
[2019-03-16] MEDS: Hydrocortisone 2.5% Crm 1 APPLIC TOPICAL ×3 (05:50→20:12)
[2019-03-16] MEDS: DICLOFENAC SODIUM 25 MG TABLET.DR PO ×2 (05:50→17:56)
[2019-03-16] MEDS: Enoxaparin 40 MG/0.4 ML Syringe SC (05:51)
[2019-03-16] MEDS: Gabapentin 300 MG Capsule PO ×2 (05:51→17:57)
[2019-03-16] MEDS: Paroxetine 20 MG Tablet 40 MG PO (05:51)
[2019-03-16] MEDS: Nystatin Powder 15gm Bottle 1 APPLIC TOPICAL ×2 (05:51→20:13)
[2019-03-16] MEDS: rifAMPin 300 MG Capsule PO ×2 (05:52→17:57)
--- NOTE | 2019-03-16 06:20 | PCM.RX.CS ---
Consult Pharmacy has been consulted to manage selected antiobiotic: Vancomycin Type of Consult: Follow-up Labs: Sodium 142 mmol/L (136-145) 03/12/19 04:35 Potassium 3.5 mmol/L (3.5-5.1) 03/12/19 04:35 Chloride 102 mmol/L (98-107) 03/12/19 04:35 Carbon Dioxide 32.0 mmol/L (21.0-32.0) 03/12/19 04:35 Anion Gap 8 (5-15) 03/12/19 04:35 BUN 21 mg/dL (7-18) H 03/12/19 04:35 Creatinine 0.67 mg/dL (0.70-1.30) L 03/12/19 04:35 Est GFR (MDRD) Af Amer 150 mL/min (>60) 03/12/19 04:35 Est GFR (MDRD) Non-Af 124 mL/min (>60) 03/12/19 04:35 BUN/Creatinine Ratio 31.4 RATIO (10-20) H 03/12/19 04:35 Glucose 125 mg/dL (74-106) H 03/12/19 04:35 Vancomycin Trough 16.8 ug/mL (5.0-15.0) H 03/16/19 04:35 Goal Trough: 15-20 mcg/mL Pharmacy Plan for Drug Dosing: Pharmacy Service will continue to monitor and adjust dosing as required. Medications Vancomycin HCl 1,500 mg/ (Sodium Chloride) 530 mls @ 250 mls/hr IV Q18H CHERYL Last Admin: 03/15/19 11:36 Dose: 250 mls/hr TROUGH 16.8 NO CHANGES AT THIS TIME, NEXT TROUGH 03/20 @ 1100 Follow-Up Labs: Trough Vancomycin Labs to be done on [date and time ordered]: 03/20 @ 1099
[2019-03-16 06:41] LABS: Bedside Glucose 136 mg/dL (70-110)
[2019-03-16] MEDS: Allopurinol 100 MG Tablet PO (08:21)
[2019-03-16] MEDS: Divalproex Sodium 250 MG Tablet 500 MG PO ×2 (08:21→17:55)
--- NOTE | 2019-03-16 10:00 | NURSING ---
Rash to back/flank/abdomen worsening, benadryl ineffective, hytone cream ineffective. Patient reports general malaise. Dr. Wheeler updated, order to hold today's dose of Vanco and update tomorrow regarding intolerance to Vanco. NO for Hydroxyzine 50mg PO [id number] PRN for itching.
--- NOTE | 2019-03-16 11:19 | NURSING ---
sleeping in chair, respers even/easy. not roused at this time.
[2019-03-16 11:20] LABS: Bedside Glucose 183 mg/dL (70-110)
--- NOTE | 2019-03-16 14:40 | NURSING ---
resting quietly in bed w/out c/o
[2019-03-16 15:30] VITALS: BP 196/78; PULSE 60; RESP 16; TEMP 37.1; O2SAT 98
[2019-03-16] MEDS: hydrOXYzine PAM 25 MG Capsule 50 MG PO (15:33)
--- NOTE | 2019-03-16 15:37 | NURSING ---
c/o of itching, dk red raised rash back down into post upper thigh. meds for itching given
[2019-03-16 17:00] LABS: Bedside Glucose 187 mg/dL (70-110)
[2019-03-16 17:59] VITALS: BP 196/78; PULSE 64
[2019-03-16] MEDS: Alteplase 2 MG/2 ML Vial IV (19:07)
[2019-03-16] MEDS: MELATONIN 10 MG TABLET PO (20:13)
[2019-03-16] MEDS: traZODone 50 MG Tablet PO (20:14)
--- NOTE | 2019-03-16 20:15 | NURSING ---
PICC line attempted to flush at this time, unsuccessful. Assistant Front End Manager Henna notified.
--- NOTE | 2019-03-16 20:15 | NURSING ---
Pt c/o generalized pain and discomfort, asking for pain medication and hs meds early, including hytone cream to back/rash. Meds given per orders. RN aware. Repositioned for comfort. Pt remains in isolation precautions for MRSA in wound. Continuing to monitor.
[2019-03-16 21:00] VITALS: PULSE 68; RESP 18; O2SAT 93
--- NOTE | 2019-03-16 21:18 | NURSING ---
Nursing press supervisor called to unit to finish an activase injection initiated by Roderick Huff RN on 7a-7p shift. Pt has single PICC in Rt upper arm that initially would not flush or aspirate. Using the stop cock method initiated by shift, this RN was able to inject the remaining 1.5 cc of activase. After letting activate sit for approximately 45 minutes, this RN aspirated 10 cc blood and followed with 20 cc NS flush. Results reported to Corey YEE.
[2019-03-16 21:21] LABS: Bedside Glucose 164 mg/dL (70-110)
[2019-03-17] MEDS: oxyCODONE 5 MG Tablet 10 MG PO ×2 (02:51→06:51)
[2019-03-17] MEDS: Losartan Potassium 100 MG Tablet PO ×2 (06:44→16:59)
[2019-03-17] MEDS: Levothyroxine 112 MCG Tablet PO (06:44)
[2019-03-17] MEDS: Menthol/Lanolin/Calamine/Znox 113 GM Tube 1 APPLIC TOPICAL ×2 (06:44→22:08)
[2019-03-17] MEDS: Furosemide 40 MG Tablet PO ×2 (06:44→13:11)
[2019-03-17] MEDS: Empagliflozin 25 MG Tablet PO (06:45)
[2019-03-17] MEDS: DICLOFENAC SODIUM 25 MG TABLET.DR PO ×2 (06:45→16:59)
[2019-03-17] MEDS: Hydrocortisone 2.5% Crm 1 APPLIC TOPICAL ×2 (06:45→23:11)
[2019-03-17] MEDS: Nystatin Powder 15gm Bottle 1 APPLIC TOPICAL ×2 (06:46→22:05)
[2019-03-17] MEDS: Gabapentin 300 MG Capsule PO ×2 (06:46→16:59)
[2019-03-17] MEDS: Enoxaparin 40 MG/0.4 ML Syringe SC (06:46)
[2019-03-17] MEDS: Polyethylene Glycol 3350 17 GM PACKET PO (06:46)
[2019-03-17] MEDS: Paroxetine 20 MG Tablet 40 MG PO (06:47)
[2019-03-17 06:48] VITALS: PULSE 77
[2019-03-17] MEDS: LINAGLIPTIN 5 MG TABLET PO (06:48)
[2019-03-17] MEDS: Metoprolol(XL)Succ 25 MG Tablet 12.5 MG PO ×2 (06:48→16:59)
[2019-03-17] MEDS: rifAMPin 300 MG Capsule PO (06:48)
[2019-03-17 06:51] LABS: Bedside Glucose 137 mg/dL (70-110)
[2019-03-17] MEDS: Allopurinol 100 MG Tablet PO (08:38)
[2019-03-17] MEDS: Divalproex Sodium 250 MG Tablet 500 MG PO ×2 (08:38→16:44)
--- NOTE | 2019-03-17 08:44 | NURSING ---
ALL CARE GIVEN IN ROOM DUE TO PT IN PRECAUTIONS.
[2019-03-17 11:11] LABS: Bedside Glucose 208 mg/dL (70-110)
--- NOTE | 2019-03-17 11:22 | NURSING ---
talke with dr. Pickering regarding increasing rash, lethargy. NO to D/C rifampin and see if this improves. notified of Dr. Wheeler starting medrol dose pack.
[2019-03-17] MEDS: MethylPREDNISolone DosePak 4 MG BOX PO ×3 (11:27→21:54)
[2019-03-17] MEDS: 0.9% NaCl PICC Flush IV ×2 (11:29→16:49)
--- NOTE | 2019-03-17 11:30 | CASEMGMT ---
Insurance Clinical update faxed on this date. Will await continued stay determination. Auth# [id number] ANIL Devries
[2019-03-17] MEDS: Acetaminophen 500 MG Tablet 1000 MG PO (13:16)
--- NOTE | 2019-03-17 15:27 | NURSING ---
wound photo: right lateral lower leg
[2019-03-17 15:39] VITALS: BP 171/89; PULSE 63; RESP 14; TEMP 37.1; O2SAT 95
[2019-03-17] MEDS: 0.9% NaCl IVPB Med Flush (250 mL) 15 ML IV (16:32)
[2019-03-17] MEDS: DiphenhydrAMINE 25 MG Capsule 50 MG PO (16:43)
[2019-03-17 16:59] VITALS: BP 171/89; PULSE 63
[2019-03-17 17:01] LABS: Bedside Glucose 144 mg/dL (70-110)
--- NOTE | 2019-03-17 17:01 | CASEMGMT ---
Insurance: Patient approved by insurance for another 7 days (03/17-03/23). Next update due 03/24/19. Auth # [id number].
--- NOTE | 2019-03-17 17:08 | PN.ID_ITS ---
Subjective: Feeling about the same, still itching, rash. No fever. - Physical Exam General: Alert, Cooperative, No apparent distress Lungs: Clear to auscultation, Normal air movement Cardiovascular: Regular rate, Regular Rhythm Abdomen: Soft, Non Tender, Non-Distended Skin: Rash Present, Incision - RLE wrapped Vital Signs Temp Pulse Resp BP Pulse Ox 98.7 F 63 14 171/89 H 95 03/17/19 15:39 03/17/19 16:59 03/17/19 15:39 03/17/19 16:59 03/17/19 15:39 Oxygen Delivery Method Room Air Weight: 117.197 kg Body Mass Index (BMI) 43.2 Finger Stick Blood Glucose 89 Intake and Output for Last 24 Hours 03/15/19 03/16/19 03/17/19 23:59 23:59 23:59 Intake Total 420 / 420 1260 / 1260 970 / 970 Output Total 275 / 275 100 / 100 Balance 145 / 145 1260 / 1260 870 / 870 POC Glucose 03/17/19 03/17/19 03/17/19 16:48 11:00 06:34 POC Glucose 144 H 208 H 137 H 03/16/19 21:11 POC Glucose 164 H Medical Necessity - Tobacco Use Smoking Status: Former smoker Tobacco Use: Non-smoker Route of nutrition/ use of supplements: [] Nutritional Intake: [] IV Site: [] Carney Catheter: [] - Assessment/Plan Antibiotics: [] Assessment/Plan: [] 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 Now s/p OR 03/[address] Fernando. Clinically stable, no fever, no wbc. No sign of endocarditis or metastatic infection on exam. Infection in wound extended down to hardware, now exposed. Added rifampin for biofilm penetration. Bcx neg since 03/04. Plan will be for 6 weeks of vanc and then senior care po abx. Stop date for iv vanc will be 04/16/19. Weekly bmp, cbc, LFT, vanc trough, and esr while on iv abx. Rash worse, will stop rifampin. Will follow
[2019-03-17 21:10] LABS: Bedside Glucose 207 mg/dL (70-110)
[2019-03-17] MEDS: traZODone 50 MG Tablet PO (21:55)
[2019-03-17] MEDS: MELATONIN 10 MG TABLET PO (21:55)
[2019-03-17 22:43] VITALS: PULSE 74; RESP 18; O2SAT 95
[2019-03-18] MEDS: Hydrocortisone 2.5% Crm 1 APPLIC TOPICAL ×3 (05:06→20:49)
[2019-03-18] MEDS: Levothyroxine 112 MCG Tablet PO (05:07)
[2019-03-18] MEDS: Paroxetine 20 MG Tablet 40 MG PO (05:07)
[2019-03-18] MEDS: LINAGLIPTIN 5 MG TABLET PO (05:07)
[2019-03-18] MEDS: Gabapentin 300 MG Capsule PO ×2 (05:07→17:56)
[2019-03-18] MEDS: DICLOFENAC SODIUM 25 MG TABLET.DR PO ×2 (05:07→17:56)
[2019-03-18] MEDS: Enoxaparin 40 MG/0.4 ML Syringe SC (05:07)
[2019-03-18] MEDS: Empagliflozin 25 MG Tablet PO (05:07)
[2019-03-18] MEDS: Losartan Potassium 100 MG Tablet PO ×2 (05:07→17:57)
[2019-03-18] MEDS: Furosemide 40 MG Tablet PO ×2 (05:07→13:49)
[2019-03-18] MEDS: Nystatin Powder 15gm Bottle 1 APPLIC TOPICAL ×2 (05:08→20:50)
[2019-03-18] MEDS: Polyethylene Glycol 3350 17 GM PACKET PO (05:11)
[2019-03-18] MEDS: Menthol/Lanolin/Calamine/Znox 113 GM Tube 1 APPLIC TOPICAL ×2 (05:11→20:49)
[2019-03-18 05:13] VITALS: BP 177/75; PULSE 61
[2019-03-18] MEDS: Metoprolol(XL)Succ 25 MG Tablet 12.5 MG PO ×2 (05:13→17:57)
[2019-03-18 06:36] LABS: Bedside Glucose 138 mg/dL (70-110)
--- NOTE | 2019-03-18 07:19 | NURSING ---
All care provided in pt room d/t isolation for MRSA in wound.
[2019-03-18] MEDS: Divalproex Sodium 250 MG Tablet 500 MG PO ×2 (08:57→17:54)
[2019-03-18] MEDS: MethylPREDNISolone DosePak 4 MG BOX PO ×4 (08:57→20:47)
[2019-03-18] MEDS: Allopurinol 100 MG Tablet PO (08:57)
[2019-03-18] MEDS: DiphenhydrAMINE 25 MG Capsule 50 MG PO (10:23)
[2019-03-18] MEDS: 0.9% NaCl PICC Flush IV (10:36)
--- NOTE | 2019-03-18 10:51 | PCM.PN.ID ---
Subjective: Rash increased today, no fever. - Physical Exam General: Alert, Cooperative, No apparent distress Lungs: Clear to auscultation, Normal air movement Cardiovascular: Regular rate, Regular Rhythm Abdomen: Soft, Non Tender, Non-Distended Extremities: No edema Skin: Rash Present Vital Signs Temp Pulse Resp BP Pulse Ox 98.7 F 61 18 177/75 H 95 03/17/19 15:39 03/18/19 05:13 03/17/19 22:43 03/18/19 05:13 03/17/19 22:43 Oxygen Delivery Method Room Air Weight: 117.197 kg Body Mass Index (BMI) 43.2 Finger Stick Blood Glucose 89 Intake and Output for Last 24 Hours 03/16/19 03/17/19 03/18/19 23:59 23:59 23:59 Intake Total 1260 / 1260 1510 / 1510 540 / 540 Output Total 100 / 100 Balance 1260 / 1260 1410 / 1410 540 / 540 POC Glucose 03/18/19 03/17/19 03/17/19 06:30 21:05 16:48 POC Glucose 138 H 207 H 144 H 03/17/19 11:00 POC Glucose 208 H Medical Necessity - Tobacco Use Smoking Status: Former smoker Tobacco Use: Non-smoker Route of nutrition/ use of supplements: [] Nutritional Intake: [] IV Site: [] Carney Catheter: [] - Assessment/Plan Antibiotics: [] Assessment/Plan: [] 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 Now s/p OR 03/[address] Fernando. Clinically stable, no fever, no wbc. No sign of endocarditis or metastatic infection on exam. Infection in wound extended down to hardware, now exposed. Added rifampin for biofilm penetration. Bcx neg since 03/04. Plan will be for 6 weeks of vanc and then [facility] po abx. Stop date for iv vanc will be 04/16/19. Weekly bmp, cbc, LFT, vanc trough, and esr while on iv abx. Rash worse after stopping rifampin yesterday. Will change vanc to ceftaroline and monitor rash. Will follow
[2019-03-18 11:40] LABS: Bedside Glucose 209 mg/dL (70-110)
[2019-03-18 13:00] VITALS: PULSE 72; RESP 18; O2SAT 95
[2019-03-18 15:32] VITALS: BP 180/82; PULSE 59; RESP 18; TEMP 36.7; O2SAT 96
[2019-03-18] MEDS: hydrOXYzine PAM 25 MG Capsule 50 MG PO (15:44)
[2019-03-18 16:50] LABS: Bedside Glucose 161 mg/dL (70-110)
[2019-03-18 17:57] VITALS: BP 180/82; PULSE 59
[2019-03-18] MEDS: 0.9% NaCl IVPB Med Flush (250 mL) 15 ML IV (18:20)
[2019-03-18] MEDS: Acetaminophen 500 MG Tablet 1000 MG PO (20:02)
[2019-03-18] MEDS: traZODone 50 MG Tablet PO (20:47)
[2019-03-18] MEDS: MELATONIN 10 MG TABLET PO (20:47)
[2019-03-18 21:06] LABS: Bedside Glucose 190 mg/dL (70-110)
[2019-03-19] MEDS: hydrOXYzine PAM 25 MG Capsule 50 MG PO ×2 (01:58→22:07)
--- NOTE | 2019-03-19 03:25 | NURSING ---
All care this shift provided in room due to isolation.
[2019-03-19] MEDS: LINAGLIPTIN 5 MG TABLET PO (04:57)
[2019-03-19] MEDS: Gabapentin 300 MG Capsule PO ×2 (04:57→18:03)
[2019-03-19] MEDS: Furosemide 40 MG Tablet PO ×2 (04:57→13:33)
[2019-03-19] MEDS: Levothyroxine 112 MCG Tablet PO (04:57)
[2019-03-19] MEDS: Paroxetine 20 MG Tablet 40 MG PO (04:57)
[2019-03-19] MEDS: Losartan Potassium 100 MG Tablet PO ×2 (04:57→18:02)
[2019-03-19] MEDS: Menthol/Lanolin/Calamine/Znox 113 GM Tube 1 APPLIC TOPICAL ×2 (04:58→22:02)
[2019-03-19] MEDS: Empagliflozin 25 MG Tablet PO (05:01)
[2019-03-19] MEDS: Hydrocortisone 2.5% Crm 1 APPLIC TOPICAL ×3 (05:01→22:02)
[2019-03-19] MEDS: Polyethylene Glycol 3350 17 GM PACKET PO (05:01)
[2019-03-19] MEDS: Nystatin Powder 15gm Bottle 1 APPLIC TOPICAL ×2 (05:02→22:02)
[2019-03-19] MEDS: Enoxaparin 40 MG/0.4 ML Syringe SC (05:03)
[2019-03-19 05:10] VITALS: BP 176/88; PULSE 66
[2019-03-19] MEDS: Metoprolol(XL)Succ 25 MG Tablet 12.5 MG PO ×2 (05:10→18:03)
[2019-03-19 06:30] VITALS: PULSE 66; RESP 16; O2SAT 97
[2019-03-19 06:35] LABS: Bedside Glucose 138 mg/dL (70-110)
[2019-03-19] MEDS: DICLOFENAC SODIUM 25 MG TABLET.DR PO ×2 (06:37→18:02)
[2019-03-19] MEDS: 0.9% NaCl PICC Flush IV ×3 (06:37→22:00)
[2019-03-19 07:08] LABS: Absolute Neutrophil Count 4.5 X10^3/uL (2.0-7.7); Basophil# 0.03 X10^3/uL; Basophil% 0.4 % (0-1); Eosinophil# 0.25 X10^3/uL; Hematocrit 33.5 % (40-54); Hemoglobin 10.7 g/dl (13.0-16.5); Mean Corp Hgb Conc 31.9 g/gl (32-36); Mean Corpuscular Hgb 28.7 pg (27.0-32.0); Mean Corpuscular Volume 89.8 fL (80-94); Mean Platelet Vol. 8.6 fl (6.2-12.0); Monocyte# 0.96 X10^3/uL; Monocyte% 11.4 % (0-10); Neutrophil % 53.2 % (47-70); POSITIVE COUNT NO; POSITIVE DIFFERENTIAL NO; POSITIVE MORPHOLOGY NO; Platelet Count 511 K/mm3 (150-450); RBC Distribution Width CV 15.2 % (11.6-14.6); RBC Distribution Width SD 50.1 fl (35.1-43.9); Red Blood Count 3.73 M/mm3 (4.6-6.2); White Blood Count 8.4 K/mm3 (4.4-11.0)
[2019-03-19 07:18] LABS: Erythrocyte Sedimentation Rate 65 mm/hr (0-20)
[2019-03-19 07:25] LABS: AST(SGOT) 15 U/L (15-37); Alanine Aminotransfer ALT/SGPT 14 U/L (16-61); Albumin, Serum 2.4 g/dL (3.2-5.0); Alkaline Phosphatase 145 U/L (45-117); Anion Gap 7 (5-15); BUN 26 mg/dL (7-18); BUN/Creat Ratio 34.3 RATIO (10-20); Bilirubin, Direct 0.07 mg/dL (0.00-0.30); Calcium,Total 8.8 mg/dL (8.5-10.1); Chloride 105 mmol/L (98-107); Creatinine, Serum 0.76 mg/dL (0.70-1.30); EST Glomerular Filtration Rate 107 mL/min (>60); Est Glom Filt Rate - Afr Amer 130 mL/min (>60); Estimated Creatinine Clearance 61.51 ml/min; Globulin 4.3 g/dL (2.2-4.2); Glucose 134 mg/dL (74-106); Potassium 3.8 mmol/L (3.5-5.1); Protein, Total 6.7 g/dL (6.4-8.2); Sodium Level 142 mmol/L (136-145)
--- NOTE | 2019-03-19 07:53 | MDS.RN ---
Information for the mds was obtained from review of the clinical record, interview of resident, staff, and direct observation of resident's care.
[2019-03-19] MEDS: MethylPREDNISolone DosePak 4 MG BOX PO ×4 (08:30→21:59)
--- NOTE | 2019-03-19 08:31 | NURSING ---
New order for Lotrimin cream to tip of penis BID.
[2019-03-19] MEDS: Divalproex Sodium 250 MG Tablet 500 MG PO ×2 (08:37→18:01)
[2019-03-19] MEDS: Allopurinol 100 MG Tablet PO (08:37)
[2019-03-19] MEDS: Acetaminophen 500 MG Tablet 1000 MG PO (11:12)
[2019-03-19 11:41] LABS: Bedside Glucose 171 mg/dL (70-110)
--- NOTE | 2019-03-19 13:15 | CASEMGMT ---
Plan of care meeting held in pt room with pt and present. Pt is receiving PT/OT and progressing. Appt with ortho physician tomorrow and will determine if pt progress with therapy. Pt required total assist for toileting and lower body care. Using slide board for transfers. No d/c date set at this time. Pt and plan on pt returning home upon d/c. Will continue with treatment plan at this time. ANIL Devries
[2019-03-19 15:30] VITALS: BP 176/84; PULSE 58; RESP 16; TEMP 36.9; O2SAT 93
--- NOTE | 2019-03-19 15:51 | PN.ID_ITS ---
Subjective: Rash about the same, no fever - Physical Exam General: Alert, Cooperative, No apparent distress Lungs: Clear to auscultation, Normal air movement Cardiovascular: Regular rate, Regular Rhythm Abdomen: Soft, Non Tender, Non-Distended Skin: Rash Present - back/trunk, less so on extremities Vital Signs Temp Pulse Resp BP Pulse Ox 98.5 F 58 L 16 176/84 H 93 03/19/19 15:30 03/19/19 15:30 03/19/19 15:30 03/19/19 15:30 03/19/19 15:30 Oxygen Delivery Method Room Air Weight: 118.501 kg Body Mass Index (BMI) 43.2 Finger Stick Blood Glucose 89 Intake and Output for Last 24 Hours 03/17/19 03/18/19 03/19/19 23:59 23:59 23:59 Intake Total 1510 / 1510 960 / 960 480 / 480 Output Total 100 / 100 300 / 300 Balance 1410 / 1410 960 / 960 180 / 180 Laboratory Tests Past 24 Hrs 03/19/19 03/19/19 06:57 06:57 WBC 8.4 RBC 3.73 L Hgb 10.7 L Hct 33.5 L MCV 89.8 MCH 28.7 MCHC 31.9 L RDW 15.2 H RDW Differential 50.1 H Plt Count 511 H MPV 8.6 Immature Gran % (Auto) 0.000 Neut % (Auto) 53.2 Lymph % (Auto) 32.0 [place] % (Auto) 11.4 H Eos % (Auto) 3.0 Baso % (Auto) 0.4 Absolute Neuts (auto) 4.5 Absolute Lymphs (auto) 2.70 Total Counted Not Reportable ESR 65 H Sodium 142 Potassium 3.8 Chloride 105 Carbon Dioxide 30.0 Anion Gap 7 BUN 26 H Creatinine 0.76 Estim Creat Clear Calc 61.51 Est GFR (MDRD) Af Amer 130 Est GFR (MDRD) Non-Af 107 BUN/Creatinine Ratio 34.3 H Glucose 134 H Calcium 8.8 Total Bilirubin 0.20 Direct Bilirubin 0.07 AST 15 ALT 14 L Alkaline Phosphatase 145 H Total Protein 6.7 Albumin 2.4 L Globulin 4.3 H POC Glucose 03/19/19 03/19/19 03/18/19 11:25 06:29 20:52 POC Glucose 171 H 138 H 190 H 03/18/19 16:39 POC Glucose 161 H Medical Necessity - Tobacco Use Smoking Status: Former smoker Tobacco Use: Non-smoker Route of nutrition/ use of supplements: [] Nutritional Intake: [] IV Site: [] Carney Catheter: [] - Assessment/Plan Antibiotics: [] Assessment/Plan: [] 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 Now s/p OR 03/[address] Fernando. Clinically stable, no fever, no wbc. No sign of endocarditis or metastatic infection on exam. Infection in wound extended down to hardware, now exposed. Added rifampin for biofilm penetration. Bcx neg since 03/04. Plan will be for 6 weeks of vanc and then [facility] po abx. Stop date for iv vanc will be 04/16/19. Weekly bmp, cbc, LFT, vanc trough, and esr while on iv abx. Rash worse after stopping rifampin 03/17. 03/18 changed vanc to ceftaroline and monitor rash. Will follow
[2019-03-19 17:01] LABS: Bedside Glucose 162 mg/dL (70-110)
[2019-03-19 18:03] VITALS: BP 176/84; PULSE 58
[2019-03-19 21:21] LABS: Bedside Glucose 174 mg/dL (70-110)
[2019-03-19] MEDS: MELATONIN 10 MG TABLET PO (21:59)
[2019-03-19] MEDS: traZODone 50 MG Tablet PO (22:01)
[2019-03-20 05:00] VITALS: BP 177/81; PULSE 66
[2019-03-20] MEDS: LINAGLIPTIN 5 MG TABLET PO (05:00)
[2019-03-20] MEDS: Metoprolol(XL)Succ 25 MG Tablet 12.5 MG PO ×2 (05:00→17:01)
[2019-03-20] MEDS: Polyethylene Glycol 3350 17 GM PACKET PO (05:00)
[2019-03-20] MEDS: Gabapentin 300 MG Capsule PO ×2 (05:00→17:01)
[2019-03-20] MEDS: Losartan Potassium 100 MG Tablet PO ×2 (05:00→16:59)
[2019-03-20] MEDS: Levothyroxine 112 MCG Tablet PO (05:00)
[2019-03-20] MEDS: DICLOFENAC SODIUM 25 MG TABLET.DR PO ×2 (05:00→17:00)
[2019-03-20] MEDS: Furosemide 40 MG Tablet PO ×2 (05:00→11:43)
[2019-03-20] MEDS: Paroxetine 20 MG Tablet 40 MG PO (05:00)
[2019-03-20] MEDS: Empagliflozin 25 MG Tablet PO (05:06)
[2019-03-20] MEDS: Menthol/Lanolin/Calamine/Znox 113 GM Tube 1 APPLIC TOPICAL ×2 (05:09→19:36)
[2019-03-20] MEDS: Hydrocortisone 2.5% Crm 1 APPLIC TOPICAL ×2 (05:09→21:16)
[2019-03-20] MEDS: Enoxaparin 40 MG/0.4 ML Syringe SC (05:10)
[2019-03-20] MEDS: 0.9% NaCl PICC Flush IV (05:11)
[2019-03-20] MEDS: 0.9% NaCl IVPB Med Flush (250 mL) 15 ML IV (05:12)
--- NOTE | 2019-03-20 05:45 | NURSING ---
All care provided in room this shift due to Isolation.
[2019-03-20] MEDS: Nystatin Powder 15gm Bottle 1 APPLIC TOPICAL ×2 (05:47→19:37)
[2019-03-20 07:16] LABS: Bedside Glucose 168 mg/dL (70-110)
[2019-03-20] MEDS: Divalproex Sodium 250 MG Tablet 500 MG PO ×2 (09:02→16:59)
[2019-03-20] MEDS: MethylPREDNISolone DosePak 4 MG BOX PO ×3 (09:03→21:16)
[2019-03-20] MEDS: Allopurinol 100 MG Tablet PO (09:05)
[2019-03-20 10:00] VITALS: PULSE 80; RESP 18
[2019-03-20 11:00] LABS: Bedside Glucose 207 mg/dL (70-110)
--- NOTE | 2019-03-20 15:35 | NURSING ---
pt back from dr. griffin appt and rt knee immbilizer off per new order. wound vac reconnected and maintains 150mmhg sxn. pt up in wc with call light at bedside
[2019-03-20 15:59] VITALS: BP 171/88; PULSE 60; RESP 18; TEMP 36.4; O2SAT 95
[2019-03-20 16:41] LABS: Bedside Glucose 222 mg/dL (70-110)
[2019-03-20 17:01] VITALS: BP 171/88; PULSE 60
[2019-03-20] MEDS: oxyCODONE 5 MG Tablet 10 MG PO (19:37)
--- NOTE | 2019-03-20 19:48 | NURSING ---
Addendum entered by Nikki Mohan 03/21/19 00:05: All care provided in room d/t isolation precautions. Original Note: Pt remains in isolation precautions for MRSA in wound. Wound vac intact.
[2019-03-20 21:06] LABS: Bedside Glucose 231 mg/dL (70-110)
[2019-03-20] MEDS: traZODone 50 MG Tablet PO (21:16)
[2019-03-20] MEDS: MELATONIN 10 MG TABLET PO (21:17)
[2019-03-21] MEDS: Acetaminophen 500 MG Tablet 1000 MG PO (00:11)
[2019-03-21] MEDS: oxyCODONE 5 MG Tablet 10 MG PO ×2 (02:32→07:30)
[2019-03-21] MEDS: 0.9% NaCl IVPB Med Flush (250 mL) 15 ML IV (05:28)
[2019-03-21] MEDS: 0.9% NaCl PICC Flush IV ×2 (05:39→17:06)
[2019-03-21] MEDS: Menthol/Lanolin/Calamine/Znox 113 GM Tube 1 APPLIC TOPICAL ×2 (06:15→22:03)
[2019-03-21] MEDS: LINAGLIPTIN 5 MG TABLET PO (06:16)
[2019-03-21] MEDS: Hydrocortisone 2.5% Crm 1 APPLIC TOPICAL ×2 (06:16→22:04)
[2019-03-21] MEDS: Levothyroxine 112 MCG Tablet PO (06:16)
[2019-03-21] MEDS: Empagliflozin 25 MG Tablet PO (06:16)
[2019-03-21] MEDS: Furosemide 40 MG Tablet PO ×2 (06:17→14:02)
[2019-03-21] MEDS: Losartan Potassium 100 MG Tablet PO ×2 (06:17→17:00)
[2019-03-21] MEDS: Paroxetine 20 MG Tablet 40 MG PO (06:17)
[2019-03-21] MEDS: DICLOFENAC SODIUM 25 MG TABLET.DR PO ×2 (06:17→17:00)
[2019-03-21] MEDS: Polyethylene Glycol 3350 17 GM PACKET PO (06:18)
[2019-03-21] MEDS: Enoxaparin 40 MG/0.4 ML Syringe SC (06:18)
[2019-03-21] MEDS: Nystatin Powder 15gm Bottle 1 APPLIC TOPICAL ×2 (06:19→22:02)
[2019-03-21 06:21] VITALS: BP 148/72; PULSE 74
[2019-03-21] MEDS: Metoprolol(XL)Succ 25 MG Tablet 12.5 MG PO ×2 (06:21→17:00)
[2019-03-21] MEDS: Gabapentin 300 MG Capsule PO ×2 (06:21→17:00)
[2019-03-21 06:46] LABS: Bedside Glucose 149 mg/dL (70-110)
[2019-03-21] MEDS: Bisacodyl 5 MG Tablet 10 MG PO (08:35)
[2019-03-21] MEDS: MethylPREDNISolone DosePak 4 MG BOX PO ×2 (08:35→21:56)
[2019-03-21] MEDS: Allopurinol 100 MG Tablet PO (08:35)
[2019-03-21] MEDS: Divalproex Sodium 250 MG Tablet 500 MG PO ×2 (08:35→17:00)
--- NOTE | 2019-03-21 09:36 | NURSING ---
ALL CARE GIVEN IN ROOM DUE TO PT IN PRECAUTIONS FOR MRSA IN THE WOUND.
[2019-03-21] MEDS: DULAGLUTIDE 1.5 MG/0.5 ML PEN.INJCTR SQ (09:38)
--- NOTE | 2019-03-21 11:45 | PCM.PN.ID ---
Subjective: Feeling better, rash and itching much improved. - Physical Exam General: Alert, Cooperative, No apparent distress Lungs: Clear to auscultation, Normal air movement Cardiovascular: Regular rate, Regular Rhythm Abdomen: Soft, Non Tender, Non-Distended Skin: Rash Present - much improved Vital Signs Temp Pulse Resp BP Pulse Ox 97.5 F L 74 18 148/72 H 95 03/20/19 15:59 03/21/19 06:21 03/20/19 15:59 03/21/19 06:21 03/20/19 15:59 Oxygen Delivery Method Room Air Weight: 118.501 kg Body Mass Index (BMI) 43.2 Finger Stick Blood Glucose 89 Intake and Output for Last 24 Hours 03/19/19 03/20/19 03/21/19 23:59 23:59 23:59 Intake Total 840 / 840 1887 / 1887 857 / 857 Output Total 300 / 300 125 / 125 325 / 325 Balance 540 / 540 1762 / 1762 532 / 532 POC Glucose 03/21/19 03/20/19 03/20/19 06:36 21:00 16:32 POC Glucose 149 H 231 H 222 H Medical Necessity - Tobacco Use Smoking Status: Former smoker Tobacco Use: Non-smoker Route of nutrition/ use of supplements: [] Nutritional Intake: [] IV Site: [] Carney Catheter: [] - Assessment/Plan Antibiotics: [] Assessment/Plan: [] 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 Now s/p OR 03/[address] Fernando. Clinically stable, no fever, no wbc. No sign of endocarditis or metastatic infection on exam. Infection in wound extended down to hardware, now exposed. Added rifampin for biofilm penetration. Bcx neg since 03/04. Plan will be for 6 weeks of iv abx and then group home po abx. Stop date for iv abx will be 04/16/19. Weekly bmp, cbc, LFT, vanc trough, and esr while on iv abx. Rash worse after stopping rifampin 03/17. 03/18 changed vanc to ceftarolin. Rash now much improved. Will follow
[2019-03-21 11:50] LABS: Bedside Glucose 216 mg/dL (70-110)
--- NOTE | 2019-03-21 14:04 | NURSING ---
baljeetlegal summer intern nurse changed pt wound vac today.
--- NOTE | 2019-03-21 14:53 | NURSING ---
PT BLOOD PRESSURE HAS BEEN TRENDING HIGH SENSE 03/12/19. BP NOW AT 181/74,HR 60. REPORTED TO JOSELITO NIELSEN
[2019-03-21 16:00] VITALS: BP 181/74; PULSE 60; RESP 16; TEMP 37.2; O2SAT 96
--- NOTE | 2019-03-21 16:18 | NURSING ---
AID CALLED THIS NURSE TO ROOM TO SHOW PT URINE TO THIS NURSE. URINE YELLOW,CLEAR BUT COTTAGE CHEESE LOOKING PIECES. NORMAL SMELL. NO COMPLAINTS OR CONCERNS FROM PT. REPORTED TO JOSELITO NIELSEN. WILL CONTINUE TO MONITOR.
[2019-03-21 16:45] LABS: Bedside Glucose 160 mg/dL (70-110)
[2019-03-21 17:00] VITALS: BP 181/74; PULSE 60
[2019-03-21 20:55] LABS: Bedside Glucose 170 mg/dL (70-110)
[2019-03-21] MEDS: MELATONIN 10 MG TABLET PO (22:01)
[2019-03-21] MEDS: traZODone 50 MG Tablet PO (22:01)
[2019-03-21 22:14] VITALS: BP 170/73; PULSE 56; RESP 18
[2019-03-22] MEDS: Acetaminophen 500 MG Tablet 1000 MG PO (03:30)
[2019-03-22] MEDS: Enoxaparin 40 MG/0.4 ML Syringe SC (05:05)
[2019-03-22] MEDS: Paroxetine 20 MG Tablet 40 MG PO (05:06)
[2019-03-22] MEDS: LINAGLIPTIN 5 MG TABLET PO (05:06)
[2019-03-22] MEDS: Gabapentin 300 MG Capsule PO ×2 (05:06→17:31)
[2019-03-22] MEDS: Losartan Potassium 100 MG Tablet PO ×2 (05:06→17:31)
[2019-03-22] MEDS: Levothyroxine 112 MCG Tablet PO (05:06)
[2019-03-22] MEDS: Furosemide 40 MG Tablet PO ×3 (05:06→13:12)
[2019-03-22] MEDS: DICLOFENAC SODIUM 25 MG TABLET.DR PO ×2 (05:06→17:32)
[2019-03-22] MEDS: Polyethylene Glycol 3350 17 GM PACKET PO (05:07)
[2019-03-22] MEDS: Menthol/Lanolin/Calamine/Znox 113 GM Tube 1 APPLIC TOPICAL ×2 (05:08→20:08)
[2019-03-22] MEDS: Hydrocortisone 2.5% Crm 1 APPLIC TOPICAL ×2 (05:08→20:08)
[2019-03-22] MEDS: Empagliflozin 25 MG Tablet PO (05:09)
[2019-03-22] MEDS: Nystatin Powder 15gm Bottle 1 APPLIC TOPICAL ×2 (05:11→20:07)
[2019-03-22 05:17] VITALS: BP 168/88; PULSE 60
[2019-03-22] MEDS: Metoprolol(XL)Succ 25 MG Tablet 12.5 MG PO ×2 (05:17→17:32)
[2019-03-22] MEDS: 0.9% NaCl PICC Flush IV ×2 (05:18→17:35)
[2019-03-22] MEDS: 0.9% NaCl IVPB Med Flush (250 mL) 15 ML IV (05:34)
--- NOTE | 2019-03-22 05:36 | NURSING ---
All care provided in room d/t isolation precautions.
[2019-03-22] MEDS: Divalproex Sodium 250 MG Tablet 500 MG PO ×2 (08:56→17:30)
[2019-03-22] MEDS: Allopurinol 100 MG Tablet PO (08:56)
--- NOTE | 2019-03-22 09:27 | NURSING ---
All care provided in Pt room d/t isolation precautions.
[2019-03-22 09:41] LABS: Bedside Glucose 161 mg/dL (70-110)
[2019-03-22 10:00] VITALS: PULSE 49; RESP 18; O2SAT 96
[2019-03-22 11:35] LABS: Bedside Glucose 134 mg/dL (70-110)
--- NOTE | 2019-03-22 11:45 | NURSING ---
Dr Wheeler notified of elevated BP's, new order for 40mg lasix x1 now.
[2019-03-22 16:00] VITALS: BP 152/77; PULSE 55; RESP 18; TEMP 36.7; O2SAT 98
[2019-03-22 17:00] LABS: Bedside Glucose 165 mg/dL (70-110)
[2019-03-22 17:32] VITALS: BP 152/77; PULSE 55
[2019-03-22] MEDS: traZODone 50 MG Tablet PO (20:03)
[2019-03-22] MEDS: MELATONIN 10 MG TABLET PO (20:03)
[2019-03-22 21:01] LABS: Bedside Glucose 174 mg/dL (70-110)
--- NOTE | 2019-03-22 23:37 | NURSING ---
All care this shift provided in room due to Isolation.
[2019-03-23] MEDS: Losartan Potassium 100 MG Tablet PO ×2 (04:26→16:45)
[2019-03-23] MEDS: DICLOFENAC SODIUM 25 MG TABLET.DR PO ×2 (04:26→16:44)
[2019-03-23] MEDS: Polyethylene Glycol 3350 17 GM PACKET PO (04:26)
[2019-03-23] MEDS: Menthol/Lanolin/Calamine/Znox 113 GM Tube 1 APPLIC TOPICAL ×2 (04:26→20:02)
[2019-03-23 04:38] VITALS: BP 185/83; PULSE 60
[2019-03-23] MEDS: Metoprolol(XL)Succ 25 MG Tablet 12.5 MG PO ×2 (04:38→16:44)
[2019-03-23] MEDS: Gabapentin 300 MG Capsule PO ×2 (04:39→16:44)
[2019-03-23] MEDS: Furosemide 40 MG Tablet PO ×2 (04:40→14:04)
[2019-03-23] MEDS: Levothyroxine 112 MCG Tablet PO (04:40)
[2019-03-23] MEDS: Paroxetine 20 MG Tablet 40 MG PO (04:40)
[2019-03-23] MEDS: Empagliflozin 25 MG Tablet PO (04:41)
[2019-03-23] MEDS: Enoxaparin 40 MG/0.4 ML Syringe SC (04:42)
[2019-03-23] MEDS: Nystatin Powder 15gm Bottle 1 APPLIC TOPICAL ×2 (04:43→20:04)
[2019-03-23] MEDS: LINAGLIPTIN 5 MG TABLET PO (04:43)
[2019-03-23] MEDS: 0.9% NaCl IVPB Med Flush (250 mL) 15 ML IV (05:45)
[2019-03-23] MEDS: 0.9% NaCl PICC Flush IV (05:45)
[2019-03-23 06:35] LABS: Bedside Glucose 127 mg/dL (70-110)
[2019-03-23] MEDS: Divalproex Sodium 250 MG Tablet 500 MG PO ×2 (07:55→16:44)
[2019-03-23] MEDS: Allopurinol 100 MG Tablet PO (07:55)
--- NOTE | 2019-03-23 11:11 | NURSING ---
All care provided in pt room d/t isolation precautions.
[2019-03-23 11:31] LABS: Bedside Glucose 195 mg/dL (70-110)
[2019-03-23] MEDS: Ondansetron ODT 4 MG Tablet PO (11:38)
[2019-03-23 14:24] VITALS: BP 162/75; PULSE 57; RESP 24; TEMP 36.9; O2SAT 95
[2019-03-23 15:04] VITALS: PULSE 53; RESP 18; O2SAT 96
[2019-03-23 16:44] VITALS: BP 162/75; PULSE 53
[2019-03-23 16:56] LABS: Bedside Glucose 127 mg/dL (70-110)
[2019-03-23] MEDS: MELATONIN 10 MG TABLET PO (20:03)
[2019-03-23] MEDS: traZODone 50 MG Tablet PO (20:03)
[2019-03-23 21:21] LABS: Bedside Glucose 137 mg/dL (70-110)
--- NOTE | 2019-03-23 23:00 | NURSING ---
While SLITTING MACHINE FEEDER was doing rounds it was noted that patient has swollen scrotum. Area was padded and elevated with pillow case sling. Patient denies any pain or discomfort at site. Will cont to monitor. Same reported to JOSELITO Tavarez and JOSELITO Stockton.
[2019-03-24] MEDS: 0.9% NaCl IVPB Med Flush (250 mL) 15 ML IV (04:54)
[2019-03-24] MEDS: 0.9% NaCl PICC Flush IV ×2 (04:54→21:14)
[2019-03-24] MEDS: Enoxaparin 40 MG/0.4 ML Syringe SC (05:23)
[2019-03-24] MEDS: Gabapentin 300 MG Capsule PO ×2 (05:23→17:36)
[2019-03-24] MEDS: Polyethylene Glycol 3350 17 GM PACKET PO (05:23)
[2019-03-24] MEDS: LINAGLIPTIN 5 MG TABLET PO (05:23)
[2019-03-24] MEDS: Furosemide 40 MG Tablet PO ×2 (05:23→13:25)
[2019-03-24] MEDS: Losartan Potassium 100 MG Tablet PO ×2 (05:24→17:35)
[2019-03-24] MEDS: DICLOFENAC SODIUM 25 MG TABLET.DR PO ×2 (05:24→17:35)
[2019-03-24] MEDS: Paroxetine 20 MG Tablet 40 MG PO (05:24)
[2019-03-24] MEDS: Levothyroxine 112 MCG Tablet PO (05:24)
[2019-03-24] MEDS: Empagliflozin 25 MG Tablet PO (05:25)
[2019-03-24] MEDS: Menthol/Lanolin/Calamine/Znox 113 GM Tube 1 APPLIC TOPICAL ×2 (05:25→21:17)
[2019-03-24] MEDS: Nystatin Powder 15gm Bottle 1 APPLIC TOPICAL ×2 (05:27→21:17)
[2019-03-24 05:35] VITALS: BP 176/69; PULSE 62
[2019-03-24] MEDS: Metoprolol(XL)Succ 25 MG Tablet 12.5 MG PO ×2 (05:35→17:34)
[2019-03-24 06:31] LABS: Bedside Glucose 128 mg/dL (70-110)
[2019-03-24] MEDS: Divalproex Sodium 250 MG Tablet 500 MG PO ×2 (08:50→17:35)
[2019-03-24] MEDS: Allopurinol 100 MG Tablet PO (08:51)
--- NOTE | 2019-03-24 08:53 | NURSING ---
New order for metolazone 2.5mg PO qAM. Recheck BMP Sunday.
[2019-03-24 10:56] LABS: Bedside Glucose 211 mg/dL (70-110)
--- NOTE | 2019-03-24 11:23 | NURSING ---
wound photo: right lateral lower leg
--- NOTE | 2019-03-24 12:18 | CASEMGMT ---
Insurance Clinical update faxed. Will await continued stay determination. Auth# [id number] ANIL Devries
--- NOTE | 2019-03-24 13:24 | NURSING ---
ALL CARE GIVEN IN ROOM DUE TO PT IN PRECAUTIONS.
--- NOTE | 2019-03-24 13:27 | NURSING ---
JOSELITO ARNDT WOUND NURSE IN TO CHANGE WOUND VAC.
[2019-03-24 13:38] LABS: Anion Gap 0 (5-15); BUN 31 mg/dL (7-18); BUN/Creat Ratio 34.1 RATIO (10-20); Calcium,Total 8.4 mg/dL (8.5-10.1); Chloride 106 mmol/L (98-107); Creatinine, Serum 0.91 mg/dL (0.70-1.30); EST Glomerular Filtration Rate 87 mL/min (>60); Est Glom Filt Rate - Afr Amer 105 mL/min (>60); Estimated Creatinine Clearance 67.59 ml/min; Glucose 158 mg/dL (74-106); Potassium 4.5 mmol/L (3.5-5.1); Sodium Level 139 mmol/L (136-145)
[2019-03-24 15:35] VITALS: BP 184/88; PULSE 58; RESP 18; TEMP 37; O2SAT 95
[2019-03-24 16:55] LABS: Bedside Glucose 97 mg/dL (70-110)
[2019-03-24 17:34] VITALS: BP 184/88; PULSE 58
[2019-03-24 21:06] LABS: Bedside Glucose 132 mg/dL (70-110)
[2019-03-24] MEDS: traZODone 50 MG Tablet PO (21:15)
[2019-03-24] MEDS: MELATONIN 10 MG TABLET PO (21:15)
[2019-03-24] MEDS: Hydrocortisone 2.5% Crm 1 APPLIC TOPICAL (21:17)
[2019-03-24 21:23] VITALS: PULSE 58; RESP 16; O2SAT 95
[2019-03-25] MEDS: Polyethylene Glycol 3350 17 GM PACKET PO (05:10)
[2019-03-25 05:11] VITALS: BP 170/74; PULSE 59
[2019-03-25] MEDS: Metoprolol(XL)Succ 25 MG Tablet 12.5 MG PO ×2 (05:11→17:59)
[2019-03-25] MEDS: Losartan Potassium 100 MG Tablet PO ×2 (05:11→17:58)
[2019-03-25] MEDS: Gabapentin 300 MG Capsule PO ×2 (05:12→17:58)
[2019-03-25] MEDS: Furosemide 40 MG Tablet PO ×2 (05:12→13:03)
[2019-03-25] MEDS: DICLOFENAC SODIUM 25 MG TABLET.DR PO ×2 (05:12→17:58)
[2019-03-25] MEDS: Paroxetine 20 MG Tablet 40 MG PO (05:12)
[2019-03-25] MEDS: Levothyroxine 112 MCG Tablet PO (05:12)
[2019-03-25] MEDS: Enoxaparin 40 MG/0.4 ML Syringe SC (05:14)
[2019-03-25] MEDS: 0.9% NaCl PICC Flush IV ×2 (05:16→18:09)
[2019-03-25] MEDS: Menthol/Lanolin/Calamine/Znox 113 GM Tube 1 APPLIC TOPICAL ×2 (05:24→19:45)
[2019-03-25] MEDS: Nystatin Powder 15gm Bottle 1 APPLIC TOPICAL ×2 (05:24→19:48)
[2019-03-25] MEDS: Hydrocortisone 2.5% Crm 1 APPLIC TOPICAL ×2 (05:25→19:48)
[2019-03-25] MEDS: LINAGLIPTIN 5 MG TABLET PO (05:34)
[2019-03-25] MEDS: Empagliflozin 25 MG Tablet PO (05:35)
[2019-03-25] MEDS: 0.9% NaCl IVPB Med Flush (250 mL) 15 ML IV (05:37)
[2019-03-25] MEDS: Metolazone 2.5 MG Tablet PO (06:05)
[2019-03-25 06:51] LABS: Bedside Glucose 122 mg/dL (70-110)
--- NOTE | 2019-03-25 06:54 | NURSING ---
All care provide in pt room d/t isolation precaution
[2019-03-25] MEDS: Divalproex Sodium 250 MG Tablet 500 MG PO ×2 (08:07→17:58)
[2019-03-25] MEDS: Allopurinol 100 MG Tablet PO (08:07)
--- NOTE | 2019-03-25 10:27 | NURSING ---
All care provided in pt room d/t isolation precautions.
[2019-03-25 11:01] LABS: Bedside Glucose 141 mg/dL (70-110)
--- NOTE | 2019-03-25 11:08 | NURSING ---
pt modified isolation, wound vac in place to wound.
--- NOTE | 2019-03-25 15:38 | CHAPLAIN ---
Type of Pastoral Visit ___ Initial Visit _x__ Follow-up Visit ___ On-call Visit ___ General Patient Visit ___ Spiritual Assessment ___ Family Conference ___ Bereavement ___ Rapid Response ___ Code Blue ___ Other (describe below) Pastoral Care Referral From _x__ Patient ___ Family ___ Nurse ___ Physician ___ Primary Special Educator ___ Risk Control Specialist ___ Other (describe below) Sacrament/Intervention _x__ Active listening ___ Anointing ___ Religious ___ Bereavement ___ Communion ___ Scarlett exploration ___ _x__ Life review ___ Prayer ___ Reconciliation ___ Sacrament of Sick _x__ Supportive presence ___ Wedding ___ Other (describe below) Pastoral Comments patient requests future visits for spiritual care and conversation
[2019-03-25 16:00] VITALS: BP 193/99; PULSE 62; RESP 18; TEMP 36.4; O2SAT 97
[2019-03-25 17:06] LABS: Bedside Glucose 182 mg/dL (70-110)
[2019-03-25 17:59] VITALS: BP 193/99; PULSE 62
[2019-03-25] MEDS: oxyCODONE 5 MG Tablet 10 MG PO (19:45)
[2019-03-25] MEDS: traZODone 50 MG Tablet PO (19:49)
[2019-03-25] MEDS: MELATONIN 10 MG TABLET PO (19:49)
--- NOTE | 2019-03-25 19:50 | NURSING ---
Addendum entered by Nikki Mohan 03/25/19 19:51: Pt easily redirected with 1:1, RN aware, continuing to monitor. Original Note: Pt c/o headache and feeling cold. Given requested prn pain meds and adjusted thermostat. Pt asked for thermostat to be turned down and stated I can just use you as a blanket.
[2019-03-25 20:34] VITALS: PULSE 66; RESP 16; O2SAT 94
[2019-03-25 21:10] LABS: Bedside Glucose 139 mg/dL (70-110)
[2019-03-26] MEDS: oxyCODONE 5 MG Tablet 10 MG PO ×2 (00:11→05:56)
--- NOTE | 2019-03-26 00:12 | NURSING ---
Pt used call light and asked for prn oxyir for shoulder and back pain right in the middle rated at a 10/10. Given prn meds and repositioned in bed. RN aware, continuing to monitor.
[2019-03-26] MEDS: Acetaminophen 500 MG Tablet 1000 MG PO (03:35)
[2019-03-26 05:20] LABS: AST(SGOT) 9 U/L (15-37); Alanine Aminotransfer ALT/SGPT 9 U/L (16-61); Albumin, Serum 2.6 g/dL (3.2-5.0); Alkaline Phosphatase 138 U/L (45-117); Anion Gap 6 (5-15); BUN 27 mg/dL (7-18); BUN/Creat Ratio 31.9 RATIO (10-20); Bilirubin, Direct 0.08 mg/dL (0.00-0.30); Calcium,Total 8.9 mg/dL (8.5-10.1); Chloride 102 mmol/L (98-107); Creatinine, Serum 0.85 mg/dL (0.70-1.30); EST Glomerular Filtration Rate 94 mL/min (>60); Est Glom Filt Rate - Afr Amer 114 mL/min (>60); Estimated Creatinine Clearance 72.36 ml/min; Globulin 4.6 g/dL (2.2-4.2); Glucose 113 mg/dL (74-106); Potassium 3.5 mmol/L (3.5-5.1); Protein, Total 7.2 g/dL (6.4-8.2); Sodium Level 141 mmol/L (136-145)
[2019-03-26] MEDS: Menthol/Lanolin/Calamine/Znox 113 GM Tube 1 APPLIC TOPICAL ×2 (05:40→19:59)
[2019-03-26] MEDS: LINAGLIPTIN 5 MG TABLET PO (05:41)
[2019-03-26] MEDS: 0.9% NaCl PICC Flush IV (05:42)
[2019-03-26 05:43] LABS: Absolute Lymphocyte Count 2.63 X10^3/ul (0.83-4.51); Absolute Neutrophil Count 4.1 X10^3/uL (2.0-7.7); Basophil# 0.02 X10^3/uL; Basophil% 0.3 % (0-1); Eosinophil# 0.23 X10^3/uL; Eosinophils% 2.9 % (0-5); Hematocrit 34.9 % (40-54); Lymphocyte # 2.63 X10^3/ul (4.0); Lymphocyte % 33.2 % (19-41); Mean Corp Hgb Conc 31.5 g/gl (32-36); Mean Corpuscular Hgb 28.2 pg (27.0-32.0); Mean Corpuscular Volume 89.5 fL (80-94); Mean Platelet Vol. 9.6 fl (6.2-12.0); Monocyte# 0.96 X10^3/uL; Monocyte% 12.1 % (0-10); Neutrophil # 4.06 X10^3/uL (2.7-7.7); Neutrophil % 51.4 % (47-70); Platelet Count 449 K/mm3 (150-450); RBC Distribution Width CV 14.8 % (11.6-14.6); RBC Distribution Width SD 47.5 fl (35.1-43.9); White Blood Count 7.9 K/mm3 (4.4-11.0)
[2019-03-26] MEDS: Nystatin Powder 15gm Bottle 1 APPLIC TOPICAL ×2 (05:48→20:00)
[2019-03-26] MEDS: Furosemide 40 MG Tablet PO ×2 (05:49→13:15)
[2019-03-26] MEDS: Hydrocortisone 2.5% Crm 1 APPLIC TOPICAL ×2 (05:49→20:02)
[2019-03-26] MEDS: Metolazone 2.5 MG Tablet PO (05:49)
[2019-03-26] MEDS: Losartan Potassium 100 MG Tablet PO ×2 (05:49→17:19)
[2019-03-26 05:50] LABS: POSITIVE COUNT NO; POSITIVE DIFFERENTIAL NO; POSITIVE MORPHOLOGY NO
[2019-03-26] MEDS: Levothyroxine 112 MCG Tablet PO (05:50)
[2019-03-26] MEDS: Paroxetine 20 MG Tablet 40 MG PO (05:50)
[2019-03-26] MEDS: Gabapentin 300 MG Capsule PO ×2 (05:50→17:20)
[2019-03-26 05:51] VITALS: BP 134/61; PULSE 69
[2019-03-26] MEDS: Metoprolol(XL)Succ 25 MG Tablet 12.5 MG PO ×2 (05:51→17:20)
[2019-03-26] MEDS: Enoxaparin 40 MG/0.4 ML Syringe SC (05:51)
[2019-03-26 05:52] LABS: Erythrocyte Sedimentation Rate 68 mm/hr (0-20)
[2019-03-26] MEDS: Empagliflozin 25 MG Tablet PO (05:52)
[2019-03-26] MEDS: DICLOFENAC SODIUM 25 MG TABLET.DR PO ×2 (05:52→17:19)
[2019-03-26] MEDS: Polyethylene Glycol 3350 17 GM PACKET PO (05:52)
--- NOTE | 2019-03-26 05:59 | NURSING ---
Pt continues to c/o right shoulder/middle back pain, rating at 7/10. Repositioned for comfort and given prn pain meds requested. RN aware. Continuing to monitor.
[2019-03-26 06:56] LABS: Bedside Glucose 124 mg/dL (70-110)
[2019-03-26] MEDS: Divalproex Sodium 250 MG Tablet 500 MG PO ×2 (07:52→17:19)
[2019-03-26] MEDS: Allopurinol 100 MG Tablet PO (07:52)
[2019-03-26 10:00] VITALS: PULSE 60; RESP 18; O2SAT 97
--- NOTE | 2019-03-26 10:27 | CASEMGMT ---
Insurance Continued stay approved with update due 03/28/19. Auth# [id number] ANIL Devries
--- NOTE | 2019-03-26 10:42 | NURSING ---
Wound vac to RLE changed today by wound nurse Nkechi YEE.
[2019-03-26 11:20] LABS: Bedside Glucose 194 mg/dL (70-110)
[2019-03-26 15:32] VITALS: BP 150/78; PULSE 58; RESP 18; TEMP 36.7; O2SAT 93
[2019-03-26] MEDS: Ondansetron ODT 4 MG Tablet PO (15:44)
--- NOTE | 2019-03-26 15:46 | NURSING ---
Pt's came out to the desk and stated pt was c/o nausea. PRN Zofran Odt 4mg given at 3:45pm. Skylar YEE aware.
[2019-03-26 17:05] LABS: Bedside Glucose 202 mg/dL (70-110)
[2019-03-26 17:20] VITALS: BP 150/78; PULSE 62
[2019-03-26] MEDS: MELATONIN 10 MG TABLET PO (20:01)
[2019-03-26] MEDS: traZODone 50 MG Tablet PO (20:05)
[2019-03-26 21:05] LABS: Bedside Glucose 141 mg/dL (70-110)
[2019-03-27] MEDS: 0.9% NaCl PICC Flush IV (05:01)
[2019-03-27] MEDS: Menthol/Lanolin/Calamine/Znox 113 GM Tube 1 APPLIC TOPICAL ×2 (06:24→20:32)
[2019-03-27 06:27] VITALS: BP 161/81; PULSE 58
[2019-03-27] MEDS: LINAGLIPTIN 5 MG TABLET PO (06:27)
[2019-03-27] MEDS: Levothyroxine 112 MCG Tablet PO (06:27)
[2019-03-27] MEDS: Metoprolol(XL)Succ 25 MG Tablet 12.5 MG PO ×2 (06:27→17:40)
[2019-03-27] MEDS: Furosemide 40 MG Tablet PO ×2 (06:27→13:45)
[2019-03-27] MEDS: Paroxetine 20 MG Tablet 40 MG PO (06:27)
[2019-03-27] MEDS: Metolazone 2.5 MG Tablet PO (06:27)
[2019-03-27] MEDS: DICLOFENAC SODIUM 25 MG TABLET.DR PO ×2 (06:27→17:42)
[2019-03-27] MEDS: Polyethylene Glycol 3350 17 GM PACKET PO (06:27)
[2019-03-27] MEDS: Losartan Potassium 100 MG Tablet PO ×2 (06:29→17:42)
[2019-03-27] MEDS: Empagliflozin 25 MG Tablet PO (06:29)
[2019-03-27] MEDS: Enoxaparin 40 MG/0.4 ML Syringe SC (06:30)
[2019-03-27] MEDS: Gabapentin 300 MG Capsule PO ×2 (06:38→17:40)
[2019-03-27] MEDS: Nystatin Powder 15gm Bottle 1 APPLIC TOPICAL ×2 (06:39→20:34)
[2019-03-27 06:46] LABS: Bedside Glucose 142 mg/dL (70-110)
[2019-03-27] MEDS: Allopurinol 100 MG Tablet PO (08:03)
[2019-03-27] MEDS: Divalproex Sodium 250 MG Tablet 500 MG PO ×2 (08:05→17:41)
[2019-03-27 10:00] VITALS: PULSE 60; RESP 16; O2SAT 93
[2019-03-27 10:13] VITALS: BP 133/56; PULSE 60; RESP 18; TEMP 37.2; O2SAT 93
--- NOTE | 2019-03-27 11:09 | PCM.PN.ID ---
Subjective: Feeling better, rash nearly resolved, no fever - Physical Exam General: Alert, Cooperative, No apparent distress Lungs: Clear to auscultation, Normal air movement Cardiovascular: Regular rate, Regular Rhythm Abdomen: Soft, Non Tender, Non-Distended Skin: Ulcer/ Wound - reviewed photo Vital Signs Temp Pulse Resp BP Pulse Ox 98.9 F 60 18 133/56 H 93 03/27/19 10:13 03/27/19 10:13 03/27/19 10:13 03/27/19 10:13 03/27/19 10:13 Oxygen Delivery Method Room Air Weight: 113.17 kg Body Mass Index (BMI) 43.2 Finger Stick Blood Glucose 89 Intake and Output for Last 24 Hours 03/25/19 03/26/19 03/27/19 23:59 23:59 23:59 Intake Total 1241 / 1241 1537 / 1537 240 / 240 Output Total 150 / 150 Balance 1241 / 1241 1387 / 1387 240 / 240 POC Glucose 03/27/19 03/26/19 03/26/19 06:35 20:57 17:00 POC Glucose 142 H 141 H 202 H 03/26/19 11:07 POC Glucose 194 H Medical Necessity - Tobacco Use Smoking Status: Former smoker Tobacco Use: Non-smoker Route of nutrition/ use of supplements: [] Nutritional Intake: [] IV Site: [] Carney Catheter: [] - Assessment/Plan Antibiotics: [] Assessment/Plan: [] 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 Now s/p OR 03/[address] Fernando. Clinically stable, no fever, no wbc. No sign of endocarditis or metastatic infection on exam. Infection in wound extended down to hardware which was exposed. Added rifampin for biofilm penetration. Bcx neg since 03/04. Plan will be for 6 weeks of iv abx and then senior living po abx. Stop date for iv abx will be 04/16/19. Weekly bmp, cbc, LFT, vanc trough, and esr while on iv abx. Rash worse after stopping rifampin 03/17. 03/18 changed vanc to ceftarolin, stop date 04/16/19. Rash now much improved, nearly resolved. Will follow
[2019-03-27 11:50] LABS: Bedside Glucose 203 mg/dL (70-110)
[2019-03-27 15:37] VITALS: BP 156/62; PULSE 54; RESP 18; TEMP 36.4; O2SAT 96
[2019-03-27 17:05] LABS: Bedside Glucose 173 mg/dL (70-110)
[2019-03-27] MEDS: Ondansetron ODT 4 MG Tablet PO (17:39)
[2019-03-27 17:40] VITALS: BP 156/62; PULSE 54
[2019-03-27] MEDS: MELATONIN 10 MG TABLET PO (20:33)
[2019-03-27] MEDS: traZODone 50 MG Tablet PO (20:37)
[2019-03-27 21:01] LABS: Bedside Glucose 244 mg/dL (70-110)
[2019-03-28] MEDS: Menthol/Lanolin/Calamine/Znox 113 GM Tube 1 APPLIC TOPICAL ×2 (04:47→20:02)
[2019-03-28] MEDS: Nystatin Powder 15gm Bottle 1 APPLIC TOPICAL ×2 (04:47→20:02)
[2019-03-28] MEDS: 0.9% NaCl PICC Flush IV ×2 (04:48→17:00)
[2019-03-28] MEDS: Polyethylene Glycol 3350 17 GM PACKET PO (04:52)
[2019-03-28] MEDS: Furosemide 40 MG Tablet PO ×2 (04:54→13:11)
[2019-03-28] MEDS: LINAGLIPTIN 5 MG TABLET PO (04:54)
[2019-03-28] MEDS: Gabapentin 300 MG Capsule PO ×2 (04:54→17:01)
[2019-03-28] MEDS: 0.9% NaCl IVPB Med Flush (250 mL) 15 ML IV (04:54)
[2019-03-28] MEDS: DICLOFENAC SODIUM 25 MG TABLET.DR PO ×2 (04:54→17:02)
[2019-03-28 04:55] VITALS: BP 123/60; PULSE 60
[2019-03-28] MEDS: Metoprolol(XL)Succ 25 MG Tablet 12.5 MG PO ×2 (04:55→17:01)
[2019-03-28] MEDS: Metolazone 2.5 MG Tablet PO (04:55)
[2019-03-28] MEDS: Levothyroxine 112 MCG Tablet PO (04:56)
[2019-03-28] MEDS: Paroxetine 20 MG Tablet 40 MG PO (04:56)
[2019-03-28] MEDS: Losartan Potassium 100 MG Tablet PO ×2 (04:56→17:01)
[2019-03-28] MEDS: Pantoprazole Sodium 40 MG Tablet PO (04:57)
[2019-03-28] MEDS: Empagliflozin 25 MG Tablet PO (04:57)
[2019-03-28] MEDS: Enoxaparin 40 MG/0.4 ML Syringe SC (05:01)
[2019-03-28 06:30] LABS: Bedside Glucose 150 mg/dL (70-110)
[2019-03-28] MEDS: Divalproex Sodium 250 MG Tablet 500 MG PO ×2 (08:05→17:01)
[2019-03-28] MEDS: Allopurinol 100 MG Tablet PO (08:05)
[2019-03-28] MEDS: DULAGLUTIDE 1.5 MG/0.5 ML PEN.INJCTR SQ (09:00)
[2019-03-28 10:00] VITALS: PULSE 58; RESP 16; O2SAT 93
--- NOTE | 2019-03-28 10:50 | CASEMGMT ---
Insurance Clinical update faxed. Auth#[id number] ANIL Devries
[2019-03-28 11:36] LABS: Bedside Glucose 216 mg/dL (70-110)
[2019-03-28 16:00] VITALS: BP 131/53; PULSE 54; RESP 18; TEMP 36.9; O2SAT 91
[2019-03-28 17:01] VITALS: BP 131/53; PULSE 54
[2019-03-28 17:16] LABS: Bedside Glucose 198 mg/dL (70-110)
--- NOTE | 2019-03-28 18:51 | NURSING ---
Pt is being sexually inapproiate with staff, Pt repeating trying to kiss staff, and making lewd sexual comments. Sher RN aware
[2019-03-28] MEDS: Acetaminophen 500 MG Tablet 1000 MG PO (20:01)
[2019-03-28] MEDS: MELATONIN 10 MG TABLET PO (20:03)
[2019-03-28] MEDS: traZODone 50 MG Tablet PO (20:04)
[2019-03-28 21:11] LABS: Bedside Glucose 155 mg/dL (70-110)
[2019-03-29] MEDS: oxyCODONE 5 MG Tablet 10 MG PO ×2 (01:26→06:14)
[2019-03-29] MEDS: 0.9% NaCl PICC Flush IV ×3 (05:55→20:19)
[2019-03-29] MEDS: 0.9% NaCl IVPB Med Flush (250 mL) 15 ML IV (05:55)
[2019-03-29] MEDS: DICLOFENAC SODIUM 25 MG TABLET.DR PO ×2 (06:14→17:21)
[2019-03-29] MEDS: Polyethylene Glycol 3350 17 GM PACKET PO (06:14)
[2019-03-29] MEDS: Enoxaparin 40 MG/0.4 ML Syringe SC (06:14)
[2019-03-29] MEDS: Menthol/Lanolin/Calamine/Znox 113 GM Tube 1 APPLIC TOPICAL ×2 (06:14→20:16)
[2019-03-29] MEDS: Empagliflozin 25 MG Tablet PO (06:15)
[2019-03-29] MEDS: LINAGLIPTIN 5 MG TABLET PO (06:16)
[2019-03-29] MEDS: Paroxetine 20 MG Tablet 40 MG PO (06:16)
[2019-03-29] MEDS: Gabapentin 300 MG Capsule PO ×2 (06:17→17:21)
[2019-03-29] MEDS: Levothyroxine 112 MCG Tablet PO (06:17)
[2019-03-29] MEDS: Nystatin Powder 15gm Bottle 1 APPLIC TOPICAL ×2 (06:17→20:17)
[2019-03-29] MEDS: Losartan Potassium 100 MG Tablet PO ×2 (06:17→17:23)
[2019-03-29] MEDS: Pantoprazole Sodium 40 MG Tablet PO (06:17)
[2019-03-29] MEDS: Furosemide 40 MG Tablet PO ×2 (06:17→15:48)
[2019-03-29 06:18] VITALS: BP 142/81; PULSE 60
[2019-03-29] MEDS: Metoprolol(XL)Succ 25 MG Tablet 12.5 MG PO ×2 (06:18→17:23)
--- NOTE | 2019-03-29 06:26 | NURSING ---
Pt restless throughout night, in and out of sleep continuously. One moment he will be speaking and the next snoring. Continues to c/o pain in shoulder and back, and of slight headache. Repositioned for comfort. This morning during am med pass pt stated bring me some painkillers Pt believes he was awake all night and says he did not sleep at all. He has been up and down. Remains pleasant and appropriate with this nurse. RN aware.
[2019-03-29] MEDS: Metolazone 2.5 MG Tablet PO (06:30)
[2019-03-29 06:36] LABS: Bedside Glucose 142 mg/dL (70-110)
[2019-03-29] MEDS: Divalproex Sodium 250 MG Tablet 500 MG PO ×2 (08:10→17:21)
[2019-03-29] MEDS: Allopurinol 100 MG Tablet PO (08:10)
[2019-03-29 11:05] LABS: Bedside Glucose 189 mg/dL (70-110)
[2019-03-29 12:45] VITALS: PULSE 53; RESP 18; O2SAT 95
[2019-03-29 13:46] LABS: Bedside Glucose 243 mg/dL (70-110)
--- NOTE | 2019-03-29 13:52 | NURSING ---
PT VERY HARD TO WAKE UP,VITALS AND BLOOD SUGAR DONE.CALLED JOSELITO SPRING TO ROOM.
[2019-03-29 13:54] VITALS: BP 140/64; PULSE 53; RESP 18; TEMP 36.6; O2SAT 95
[2019-03-29 15:30] VITALS: BP 147/70; PULSE 50; RESP 14; TEMP 36.6; O2SAT 96
[2019-03-29 17:00] LABS: Bedside Glucose 205 mg/dL (70-110)
[2019-03-29 17:23] VITALS: BP 147/70; PULSE 59
[2019-03-29 17:29] VITALS: PULSE 59
[2019-03-29] MEDS: traZODone 50 MG Tablet PO (20:14)
[2019-03-29] MEDS: MELATONIN 10 MG TABLET PO (20:14)
[2019-03-29] MEDS: Hydrocortisone 2.5% Crm 1 APPLIC TOPICAL (20:20)
[2019-03-29] MEDS: oxyCODONE 5 MG Tablet PO (20:24)
[2019-03-29 21:16] LABS: Bedside Glucose 182 mg/dL (70-110)
[2019-03-30] MEDS: Polyethylene Glycol 3350 17 GM PACKET PO (05:19)
[2019-03-30] MEDS: 0.9% NaCl IVPB Med Flush (250 mL) 15 ML IV (05:19)
[2019-03-30] MEDS: Hydrocortisone 2.5% Crm 1 APPLIC TOPICAL ×2 (05:21→20:02)
[2019-03-30] MEDS: Paroxetine 20 MG Tablet 40 MG PO (05:21)
[2019-03-30] MEDS: Enoxaparin 40 MG/0.4 ML Syringe SC (05:21)
[2019-03-30] MEDS: DICLOFENAC SODIUM 25 MG TABLET.DR PO ×2 (05:21→17:04)
[2019-03-30] MEDS: Empagliflozin 25 MG Tablet PO (05:21)
[2019-03-30] MEDS: Metolazone 2.5 MG Tablet PO (05:21)
[2019-03-30 05:22] VITALS: BP 156/62; PULSE 55
[2019-03-30] MEDS: Metoprolol(XL)Succ 25 MG Tablet 12.5 MG PO ×2 (05:22→17:09)
[2019-03-30] MEDS: Gabapentin 300 MG Capsule PO ×2 (05:22→17:04)
[2019-03-30] MEDS: Pantoprazole Sodium 40 MG Tablet PO (05:22)
[2019-03-30] MEDS: LINAGLIPTIN 5 MG TABLET PO (05:22)
[2019-03-30] MEDS: Furosemide 40 MG Tablet PO ×2 (05:22→13:07)
[2019-03-30] MEDS: Losartan Potassium 100 MG Tablet PO ×2 (05:22→17:09)
[2019-03-30] MEDS: Levothyroxine 112 MCG Tablet PO (05:22)
[2019-03-30] MEDS: 0.9% NaCl PICC Flush IV ×4 (05:31→20:00)
[2019-03-30] MEDS: Menthol/Lanolin/Calamine/Znox 113 GM Tube 1 APPLIC TOPICAL ×2 (05:31→20:14)
[2019-03-30] MEDS: Nystatin Powder 15gm Bottle 1 APPLIC TOPICAL ×2 (05:31→20:13)
[2019-03-30 06:40] LABS: Bedside Glucose 146 mg/dL (70-110)
[2019-03-30] MEDS: Divalproex Sodium 250 MG Tablet 500 MG PO ×2 (10:22→17:03)
[2019-03-30] MEDS: Allopurinol 100 MG Tablet PO (10:23)
[2019-03-30 11:21] LABS: Bedside Glucose 128 mg/dL (70-110)
[2019-03-30 15:24] VITALS: BP 140/64; PULSE 52; RESP 16; TEMP 36.5; O2SAT 95
[2019-03-30 17:01] LABS: Bedside Glucose 167 mg/dL (70-110)
[2019-03-30 17:09] VITALS: BP 140/64; PULSE 56
[2019-03-30 17:27] VITALS: PULSE 56
[2019-03-30] MEDS: MELATONIN 10 MG TABLET PO (20:02)
[2019-03-30] MEDS: traZODone 50 MG Tablet PO (20:12)
[2019-03-30 20:14] VITALS: PULSE 67; RESP 16; O2SAT 95
[2019-03-30 21:26] LABS: Bedside Glucose 192 mg/dL (70-110)
[2019-03-31] MEDS: 0.9% NaCl PICC Flush IV ×3 (05:18→19:40)
[2019-03-31] MEDS: Nystatin Powder 15gm Bottle 1 APPLIC TOPICAL ×2 (05:19→21:48)
[2019-03-31] MEDS: Menthol/Lanolin/Calamine/Znox 113 GM Tube 1 APPLIC TOPICAL ×2 (05:19→21:48)
[2019-03-31] MEDS: 0.9% NaCl IVPB Med Flush (250 mL) 15 ML IV (05:23)
[2019-03-31] MEDS: Polyethylene Glycol 3350 17 GM PACKET PO (05:28)
[2019-03-31 05:29] VITALS: BP 142/57; PULSE 58
[2019-03-31] MEDS: Enoxaparin 40 MG/0.4 ML Syringe SC (05:29)
[2019-03-31] MEDS: DICLOFENAC SODIUM 25 MG TABLET.DR PO ×2 (05:29→17:57)
[2019-03-31] MEDS: Metoprolol(XL)Succ 25 MG Tablet 12.5 MG PO ×2 (05:29→17:55)
[2019-03-31] MEDS: Losartan Potassium 100 MG Tablet PO ×2 (05:30→17:51)
[2019-03-31] MEDS: Paroxetine 20 MG Tablet 40 MG PO (05:30)
[2019-03-31] MEDS: Metolazone 2.5 MG Tablet PO (05:30)
[2019-03-31] MEDS: Gabapentin 300 MG Capsule PO ×2 (05:30→17:51)
[2019-03-31] MEDS: Empagliflozin 25 MG Tablet PO (05:30)
[2019-03-31] MEDS: Pantoprazole Sodium 40 MG Tablet PO (05:30)
[2019-03-31] MEDS: LINAGLIPTIN 5 MG TABLET PO (05:30)
[2019-03-31] MEDS: Levothyroxine 112 MCG Tablet PO (05:30)
[2019-03-31] MEDS: Furosemide 40 MG Tablet PO ×2 (05:30→13:07)
[2019-03-31] MEDS: Hydrocortisone 2.5% Crm 1 APPLIC TOPICAL (05:32)
[2019-03-31 06:51] LABS: Bedside Glucose 180 mg/dL (70-110)
[2019-03-31] MEDS: Divalproex Sodium 250 MG Tablet 500 MG PO ×2 (08:14→17:50)
[2019-03-31] MEDS: Allopurinol 100 MG Tablet PO (08:18)
[2019-03-31 08:30] VITALS: PULSE 60; RESP 16; O2SAT 96
--- NOTE | 2019-03-31 10:23 | NURSING ---
wound photo: right lateral lower leg
[2019-03-31 11:26] LABS: Bedside Glucose 190 mg/dL (70-110)
[2019-03-31 14:09] VITALS: BP 150/65; PULSE 59; RESP 16; TEMP 36.7; O2SAT 96
--- NOTE | 2019-03-31 15:24 | NURSING ---
Patient appears to be sleepy today and eyes dim. Snoring alot but awakens easily. VSS see flow sheet. Speech slurred at times and sexually inappropriate speech with transfer into bed. Laughing with nurse and TICKER INSTALLER's saying It's getting hard, It's getting hard. This nurse reminded patient that his conversation is not appropriate. Patient falls asleep as soon as in bed. Patient denies any pain at present. Therapists also report changes in status. Patient was able to sit at side of bed last week and now unable to do it today. Patient told therapists I feed like I am fading away and I don't care. Will cont to monitor. Same reported to JOSELITO Boyd.
--- NOTE | 2019-03-31 16:36 | NURSING ---
resident more sleepy and not acting like himself per staff report and voicing concerns. Vitals ok. Dr Wheeler aware and orders received.
--- NOTE | 2019-03-31 17:18 | RAD_ITS ---
STUDY: X-RAY - ABDOMEN/PELVIS REASON FOR EXAM: Male, 73 years old. Confusion. Abdominal pain. TECHNIQUE: 5 images of the abdomen were obtained. COMPARISON: None. FINDINGS: Normal visualized lung bases. There is an unremarkable bowel gas pattern. There is no demonstrated free abdominal air. There are calcified phleboliths in the pelvis. There are diffuse degenerative changes of the visualized lumbar spine. There is a right hip arthroplasty in place. There are degenerative changes of the left hip. RAD/Abd Inc Decub and/or Erect IMPRESSION: Nonspecific bowel gas pattern. Electronically Signed: Ania Almanza MD at 18:20 EDT Tel , Service support ,
--- NOTE | 2019-03-31 17:18 | RAD_ITS ---
STUDY: X-RAY CHEST REASON FOR EXAM: Male, 73 years old. Confusion abdominal pain TECHNIQUE: PA and lateral views of the chest. COMPARISON: February 28, 2019 chest x-ray FINDINGS: There is minimal lingular atelectasis. This is seen on lateral view. There is no demonstrated pleural abnormality. There is mild cardiac enlargement. Normal mediastinum and ervin. Normal visualized pulmonary arteries. There is atherosclerotic tortuosity of the aortic arch and descending thoracic aorta. There are diffuse degenerative changes of the visualized thoracic spine. There is degenerative osteoarthritis of the bilateral shoulders. There is no demonstrated abnormality of the visualized soft tissue structures of the upper abdomen. RAD/Chest PA and Lateral IMPRESSION: Mild cardiomegaly. Minimal lingular atelectasis. Electronically Signed: Amaya Oshea MD at 2:52 EDT Tel , Service support ,
[2019-03-31 17:46] LABS: Bedside Glucose 215 mg/dL (70-110)
[2019-03-31 17:55] VITALS: BP 125/71; PULSE 60
[2019-03-31 18:47] LABS: Bacteria 0 SEEN /hpf (None Seen); Mucous, Urine 0 SEEN /hpf (<or=2+); Red Blood Cells-Urine 0 SEEN /hpf (0-5); Squamous Epithelial Cells - UA 0 SEEN /hpf (0-5); White Blood Cells 0 SEEN /hpf (0-5)
[2019-03-31 18:58] LABS: Color, Urine Yellow (Yellow); Glucose, Dipstick 1000 mg/dl (Normal); Ketone-Dipstick Negative (Negative); Leukocyte Esterase-Dipstick Negative /ul (Negative); Nitrite-Dipstick Negative (Negative); Occult Blood-Urine 25 /ul (Negative); Protein-Dipstick Negative (Negative); Specific Gravity, Urine 1.005 (1.002-1.030); Urine Bilirubin Dipstick Negative (Negative); Urine Clarity Clear (Clear); Urine Urobilinogen Normal (Normal); Urine pH 6.5 (5.0 - 8.0)
[2019-03-31 19:54] LABS: Absolute Lymphocyte Count 2.52 X10^3/ul (0.83-4.51); Absolute Neutrophil Count 4.2 X10^3/uL (2.0-7.7); Basophil# 0.04 X10^3/uL; Basophil% 0.5 % (0-1); Eosinophil# 0.37 X10^3/uL; Eosinophils% 4.4 % (0-5); Hematocrit 36.8 % (40-54); Hemoglobin 11.9 g/dl (13.0-16.5); Lymphocyte # 2.52 X10^3/ul (4.0); Mean Corp Hgb Conc 32.3 g/gl (32-36); Mean Corpuscular Hgb 28.9 pg (27.0-32.0); Mean Corpuscular Volume 89.3 fL (80-94); Mean Platelet Vol. 9.4 fl (6.2-12.0); Monocyte# 1.29 X10^3/uL; Monocyte% 15.4 % (0-10); Neutrophil # 4.16 X10^3/uL (2.7-7.7); Neutrophil % 49.5 % (47-70); Platelet Count 412 K/mm3 (150-450); RBC Distribution Width SD 48.5 fl (35.1-43.9); Red Blood Count 4.12 M/mm3 (4.6-6.2); White Blood Count 8.4 K/mm3 (4.4-11.0)
[2019-03-31 19:55] LABS: POSITIVE COUNT NO; POSITIVE DIFFERENTIAL NO; POSITIVE MORPHOLOGY NO
[2019-03-31 20:13] LABS: Anion Gap 4 (5-15); BUN 57 mg/dL (7-18); BUN/Creat Ratio 44.2 RATIO (10-20); Calcium,Total 8.9 mg/dL (8.5-10.1); Chloride 93 mmol/L (98-107); Creatinine, Serum 1.29 mg/dL (0.70-1.30); EST Glomerular Filtration Rate 58 mL/min (>60); Est Glom Filt Rate - Afr Amer 70 mL/min (>60); Estimated Creatinine Clearance 47.68 ml/min; Glucose 230 mg/dL (74-106); Potassium 2.9 mmol/L (3.5-5.1); Sodium Level 136 mmol/L (136-145)
[2019-03-31 21:01] LABS: Bedside Glucose 217 mg/dL (70-110)
[2019-03-31] MEDS: traZODone 50 MG Tablet PO (21:46)
[2019-03-31] MEDS: MELATONIN 10 MG TABLET PO (21:46)
[2019-04-01] MEDS: Pantoprazole Sodium 40 MG Tablet PO (04:40)
[2019-04-01] MEDS: Enoxaparin 40 MG/0.4 ML Syringe SC (04:40)
[2019-04-01] MEDS: LINAGLIPTIN 5 MG TABLET PO (04:40)
[2019-04-01] MEDS: Empagliflozin 25 MG Tablet PO (04:41)
[2019-04-01] MEDS: Losartan Potassium 100 MG Tablet PO ×2 (04:41→17:25)
[2019-04-01] MEDS: Levothyroxine 112 MCG Tablet PO (04:41)
[2019-04-01] MEDS: Furosemide 40 MG Tablet PO ×2 (04:41→13:31)
[2019-04-01] MEDS: Polyethylene Glycol 3350 17 GM PACKET PO (04:41)
[2019-04-01] MEDS: Paroxetine 20 MG Tablet 40 MG PO (04:41)
[2019-04-01] MEDS: DICLOFENAC SODIUM 25 MG TABLET.DR PO ×2 (04:41→17:25)
[2019-04-01] MEDS: Metolazone 2.5 MG Tablet PO (04:41)
[2019-04-01] MEDS: Menthol/Lanolin/Calamine/Znox 113 GM Tube 1 APPLIC TOPICAL ×2 (04:46→20:15)
[2019-04-01] MEDS: Nystatin Powder 15gm Bottle 1 APPLIC TOPICAL ×2 (04:47→20:15)
[2019-04-01 04:48] VITALS: BP 129/79; PULSE 63
[2019-04-01] MEDS: Gabapentin 300 MG Capsule PO ×2 (04:48→17:25)
[2019-04-01] MEDS: Metoprolol(XL)Succ 25 MG Tablet 12.5 MG PO ×2 (04:48→17:25)
[2019-04-01 04:56] LABS: Anion Gap 7 (5-15); BUN 55 mg/dL (7-18); BUN/Creat Ratio 42.6 RATIO (10-20); Calcium,Total 9.3 mg/dL (8.5-10.1); Chloride 96 mmol/L (98-107); Creatinine, Serum 1.29 mg/dL (0.70-1.30); EST Glomerular Filtration Rate 58 mL/min (>60); Est Glom Filt Rate - Afr Amer 70 mL/min (>60); Estimated Creatinine Clearance 47.68 ml/min; Glucose 172 mg/dL (74-106); Potassium 3.3 mmol/L (3.5-5.1); Sodium Level 141 mmol/L (136-145)
[2019-04-01] MEDS: 0.9% NaCl PICC Flush IV ×2 (05:21→17:32)
[2019-04-01] MEDS: 0.9% NaCl IVPB Med Flush (250 mL) 15 ML IV (05:21)
[2019-04-01 06:35] LABS: Bedside Glucose 167 mg/dL (70-110)
[2019-04-01] MEDS: Divalproex Sodium 250 MG Tablet 500 MG PO ×2 (09:14→17:25)
--- NOTE | 2019-04-01 09:21 | NURSING ---
PT BEING INAPPROPRIATE TO AIDS AND NURSES AND CALLING 1 A WITCH. TALKED TO PT 1 ON 1 ABOUT IT. REPORTED TO JOSELITO YORK
[2019-04-01] MEDS: Allopurinol 100 MG Tablet PO (10:13)
--- NOTE | 2019-04-01 10:47 | PCM.PN.ID ---
Subjective: Feeling ok, no fever, no rash. - Physical Exam General: Cooperative, No apparent distress Lungs: Clear to auscultation, Normal air movement Cardiovascular: Regular rate, Regular Rhythm Abdomen: Soft, Non Tender, Non-Distended Skin: Ulcer/ Wound - wrapped Vital Signs Temp Pulse Resp BP Pulse Ox 98.0 F 63 16 129/79 H 96 03/31/19 14:09 04/01/19 04:48 03/31/19 14:09 04/01/19 04:48 03/31/19 14:09 Oxygen Delivery Method Room Air Weight: 112.264 kg Body Mass Index (BMI) 43.2 Finger Stick Blood Glucose 89 Intake and Output for Last 24 Hours 03/30/19 03/31/19 04/01/19 23:59 23:59 23:59 Intake Total 840 / 840 780 / 780 300 / 300 Output Total 350 / 350 Balance 490 / 490 780 / 780 300 / 300 Laboratory Tests Past 24 Hrs 03/31/19 03/31/19 03/31/19 18:00 19:43 19:43 WBC 8.4 RBC 4.12 L Hgb 11.9 L Hct 36.8 L MCV 89.3 MCH 28.9 MCHC 32.3 RDW 15.0 H RDW Differential 48.5 H Plt Count 412 MPV 9.4 Immature Gran % (Auto) 0.200 Neut % (Auto) 49.5 Lymph % (Auto) 30.0 [place] % (Auto) 15.4 H Eos % (Auto) 4.4 Baso % (Auto) 0.5 Absolute Neuts (auto) 4.2 Absolute Lymphs (auto) 2.52 Total Counted Not Reportable Sodium 136 Potassium 2.9 L Chloride 93 L Carbon Dioxide 39.0 H Anion Gap 4 L BUN 57 H Creatinine 1.29 Estim Creat Clear Calc 47.68 Est GFR (MDRD) Af Amer 70 Est GFR (MDRD) Non-Af 58 L BUN/Creatinine Ratio 44.2 H Glucose 230 H Calcium 8.9 Urine Color Yellow Urine Clarity Clear Urine pH 6.5 Ur Specific [place] 1.005 Urine Protein Negative Urine Glucose (UA) 1000 H Urine Ketones Negative Urine Occult Blood 25 H Urine Nitrite Negative Urine Bilirubin Negative Urine Urobilinogen Normal Ur Leukocyte Esterase Negative Urine RBC 0 SEEN Urine WBC 0 SEEN Ur Squamous Epith Cells 0 SEEN Urine Bacteria 0 SEEN Urine Mucus 0 SEEN 04/01/19 04:35 WBC RBC Hgb Hct MCV MCH MCHC RDW RDW Differential Plt Count MPV Immature Gran % (Auto) Neut % (Auto) Lymph % (Auto) [place] % (Auto) Eos % (Auto) Baso % (Auto) Absolute Neuts (auto) Absolute Lymphs (auto) Total Counted Sodium 141 Potassium 3.3 L Chloride 96 L Carbon Dioxide 38.0 H Anion Gap 7 BUN 55 H Creatinine 1.29 Estim Creat Clear Calc 47.68 Est GFR (MDRD) Af Amer 70 Est GFR (MDRD) Non-Af 58 L BUN/Creatinine Ratio 42.6 H Glucose 172 H Calcium 9.3 Urine Color Urine Clarity Urine pH Ur Specific [place] Urine Protein Urine Glucose (UA) Urine Ketones Urine Occult Blood Urine Nitrite Urine Bilirubin Urine Urobilinogen Ur Leukocyte Esterase Urine RBC Urine WBC Ur Squamous Epith Cells Urine Bacteria Urine Mucus POC Glucose 04/01/19 03/31/19 03/31/19 06:31 20:48 17:38 POC Glucose 167 H 217 H 215 H 03/31/19 11:11 POC Glucose 190 H Medical Necessity - Tobacco Use Smoking Status: Former smoker Tobacco Use: Non-smoker Route of nutrition/ use of supplements: [] Nutritional Intake: [] IV Site: [] Carney Catheter: [] - Assessment/Plan Antibiotics: [] Assessment/Plan: [] 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 Now s/p OR 03/[address] Fernando. Clinically stable, no fever, no wbc. No sign of endocarditis or metastatic infection on exam. Infection in wound extended down to hardware which was exposed. Added rifampin for biofilm penetration. Bcx neg since 03/04. Plan will be for 6 weeks of iv abx and then intermediate po abx. Stop date for iv abx will be 04/16/19. Weekly bmp, cbc, LFT, vanc trough, and esr while on iv abx. Rash worse after stopping rifampin 03/17. 03/18 changed vanc to ceftaroline, stop date 04/16/19. Rash now resolved. Will follow
[2019-04-01 11:26] LABS: Bedside Glucose 218 mg/dL (70-110)
--- NOTE | 2019-04-01 14:23 | CASEMGMT ---
Insurance Continued stay approved with next update due 04/04/19. Auth# [id number] Eze MA
--- NOTE | 2019-04-01 14:29 | MDS.RN ---
Information for the mds was obtained from review of the clinical record, interview of resident, staff, and direct observation of resident's care.
--- NOTE | 2019-04-01 14:32 | CASEMGMT ---
Social Work Met with pt and and discussed d/c plan. Pt states she will be taking pt home at d/c and NH placement is not an option as family does not qualify for Medicaid but is unable to afford NH placement. stating pt will need hosptial bed and lift as pt is the only caregiver available. SW will continue to follow. ANIL Devries
[2019-04-01 16:00] VITALS: BP 148/72; PULSE 58; RESP 18; TEMP 36.8; O2SAT 95
--- NOTE | 2019-04-01 16:22 | NURSING ---
voicing concerns that pt is not acting like himself, not making sense and is hallucinating. Mary YEE made aware.
[2019-04-01 17:01] LABS: Bedside Glucose 152 mg/dL (70-110)
[2019-04-01 17:25] VITALS: BP 120/72; PULSE 59
[2019-04-01] MEDS: 0.9% Normal Saline 1,000 ML 999 ML IV (19:09)
[2019-04-01 21:05] LABS: Bedside Glucose 182 mg/dL (70-110)
[2019-04-02] MEDS: Levothyroxine 112 MCG Tablet PO (04:47)
[2019-04-02] MEDS: Losartan Potassium 100 MG Tablet PO ×2 (04:47→17:04)
[2019-04-02] MEDS: Menthol/Lanolin/Calamine/Znox 113 GM Tube 1 APPLIC TOPICAL ×2 (04:47→20:43)
[2019-04-02] MEDS: Pantoprazole Sodium 40 MG Tablet PO (04:47)
[2019-04-02] MEDS: Paroxetine 20 MG Tablet 40 MG PO (04:47)
[2019-04-02] MEDS: Furosemide 40 MG Tablet PO ×2 (04:47→13:14)
[2019-04-02] MEDS: Metolazone 2.5 MG Tablet PO (04:47)
[2019-04-02] MEDS: LINAGLIPTIN 5 MG TABLET PO (04:47)
[2019-04-02] MEDS: Nystatin Powder 15gm Bottle 1 APPLIC TOPICAL ×2 (04:48→20:43)
[2019-04-02] MEDS: Empagliflozin 25 MG Tablet PO (04:48)
[2019-04-02] MEDS: Enoxaparin 40 MG/0.4 ML Syringe SC (04:48)
[2019-04-02 04:50] VITALS: BP 136/73; PULSE 52
[2019-04-02] MEDS: 0.9% NaCl IVPB Med Flush (250 mL) 15 ML IV (04:56)
[2019-04-02 04:57] LABS: Absolute Lymphocyte Count 2.96 X10^3/ul (0.83-4.51); Absolute Neutrophil Count 5.5 X10^3/uL (2.0-7.7); Basophil# 0.05 X10^3/uL; Basophil% 0.5 % (0-1); Eosinophil# 0.42 X10^3/uL; Eosinophils% 4.2 % (0-5); Hematocrit 37.3 % (40-54); Hemoglobin 11.9 g/dl (13.0-16.5); Lymphocyte # 2.96 X10^3/ul (4.0); Lymphocyte % 29.3 % (19-41); Mean Corp Hgb Conc 31.9 g/gl (32-36); Mean Corpuscular Hgb 28.4 pg (27.0-32.0); Mean Platelet Vol. 9.5 fl (6.2-12.0); Monocyte# 1.15 X10^3/uL; Monocyte% 11.4 % (0-10); Neutrophil # 5.52 X10^3/uL (2.7-7.7); Neutrophil % 54.5 % (47-70); Platelet Count 424 K/mm3 (150-450); RBC Distribution Width CV 14.7 % (11.6-14.6); RBC Distribution Width SD 47.6 fl (35.1-43.9); Red Blood Count 4.19 M/mm3 (4.6-6.2); White Blood Count 10.1 K/mm3 (4.4-11.0)
[2019-04-02] MEDS: 0.9% NaCl PICC Flush IV ×3 (04:57→20:46)
[2019-04-02 05:00] LABS: AST(SGOT) 9 U/L (15-37); Alanine Aminotransfer ALT/SGPT 9 U/L (16-61); Albumin, Serum 2.8 g/dL (3.2-5.0); Alkaline Phosphatase 110 U/L (45-117); Anion Gap 9 (5-15); BUN 59 mg/dL (7-18); BUN/Creat Ratio 52.2 RATIO (10-20); Bilirubin, Direct 0.08 mg/dL (0.00-0.30); Calcium,Total 9.3 mg/dL (8.5-10.1); Chloride 98 mmol/L (98-107); Creatinine, Serum 1.13 mg/dL (0.70-1.30); EST Glomerular Filtration Rate 68 mL/min (>60); Est Glom Filt Rate - Afr Amer 82 mL/min (>60); Estimated Creatinine Clearance 54.43 ml/min; Globulin 4.7 g/dL (2.2-4.2); Glucose 156 mg/dL (74-106); Potassium 3.2 mmol/L (3.5-5.1); Protein, Total 7.5 g/dL (6.4-8.2); Sodium Level 142 mmol/L (136-145)
[2019-04-02 05:03] LABS: Erythrocyte Sedimentation Rate 81 mm/hr (0-20)
[2019-04-02 05:04] LABS: POSITIVE COUNT NO; POSITIVE DIFFERENTIAL NO; POSITIVE MORPHOLOGY NO
[2019-04-02 06:31] LABS: Bedside Glucose 163 mg/dL (70-110)
[2019-04-02] MEDS: Allopurinol 100 MG Tablet PO (09:23)
[2019-04-02 09:26] VITALS: BP 165/77; PULSE 64
[2019-04-02] MEDS: Metoprolol(XL)Succ 25 MG Tablet 12.5 MG PO ×2 (09:26→17:04)
[2019-04-02 09:30] VITALS: PULSE 64; RESP 18; O2SAT 92
[2019-04-02] MEDS: Gabapentin 100 MG Capsule 200 MG PO ×2 (09:33→17:03)
[2019-04-02 09:34] VITALS: BP 165/77; PULSE 64
[2019-04-02] MEDS: Glucerna Shake 120 ML LIQUID PO ×3 (11:06→20:40)
[2019-04-02 13:02] LABS: Bedside Glucose 188 mg/dL (70-110)
--- NOTE | 2019-04-02 14:55 | NURSING ---
Wound VAC dressing had been changed last evening. Good seal noted at 150mmHg low cont suction. Will reassess dressing in am. May try to wait to change dressing on Sunday to get it back on a schedule.
[2019-04-02 15:23] VITALS: BP 160/58; PULSE 64; RESP 18; TEMP 37.4; O2SAT 96
[2019-04-02 17:04] VITALS: BP 160/58; PULSE 64
[2019-04-02 17:21] LABS: Bedside Glucose 349 mg/dL (70-110)
--- NOTE | 2019-04-02 18:40 | NURSING ---
Addendum entered by Skylar Ken 04/02/19 18:47: dr posada wants Dr Pickering notified in AM to see if it is the Teflaro IV med. Original Note: PT MORE AWAKE TODAY,BUT INAPPROPRIATE AND CONFUSED. REPORTED TO JOSELITO CHAPARRO
--- NOTE | 2019-04-02 18:51 | NURSING ---
PT YELLING OUT FOR STAFF AND MAKING LOUD NOISES. THIS NURSE ASKED PT WHAT HE NEEDED AND PT STATED INAPPROPRIATELY. REPORTED TO JOSELITO CHAPARRO
--- NOTE | 2019-04-02 19:23 | NURSING ---
PT TRYING TO CRAWL OUT OF BED. MATS TO FLOOR,BED IN LOW POSITION, ALARM ON.
[2019-04-02 21:41] LABS: Bedside Glucose 273 mg/dL (70-110)
--- NOTE | 2019-04-03 02:06 | NURSING ---
Pt yelling out and laughing. This nurse into room. Pt A&Ox1 only knew his first name. Stating I need some medication from that doctor I am going crazy in here! Pt laughing. Explained to pt it was 0200. Pt still laughing and going off into numerous different subjects.
[2019-04-03 02:12] VITALS: TEMP 37
[2019-04-03] MEDS: Glucerna Shake 120 ML LIQUID PO ×3 (05:26→20:13)
[2019-04-03] MEDS: Polyethylene Glycol 3350 17 GM PACKET PO (05:27)
[2019-04-03] MEDS: 0.9% NaCl PICC Flush IV ×2 (05:32→21:52)
[2019-04-03 05:33] VITALS: BP 145/67; PULSE 64
[2019-04-03] MEDS: Empagliflozin 25 MG Tablet PO (05:33)
[2019-04-03] MEDS: Metoprolol(XL)Succ 25 MG Tablet 12.5 MG PO ×2 (05:33→17:50)
[2019-04-03] MEDS: LINAGLIPTIN 5 MG TABLET PO (05:34)
[2019-04-03] MEDS: Levothyroxine 112 MCG Tablet PO (05:34)
[2019-04-03] MEDS: Furosemide 40 MG Tablet PO ×2 (05:34→13:26)
[2019-04-03] MEDS: Pantoprazole Sodium 40 MG Tablet PO (05:34)
[2019-04-03] MEDS: Paroxetine 20 MG Tablet 40 MG PO (05:34)
[2019-04-03] MEDS: Metolazone 2.5 MG Tablet PO (05:34)
[2019-04-03] MEDS: Losartan Potassium 100 MG Tablet PO ×2 (05:37→17:50)
[2019-04-03] MEDS: 0.9% NaCl IVPB Med Flush (250 mL) 15 ML IV (05:37)
[2019-04-03 05:38] LABS: Anion Gap 8 (5-15); BUN 51 mg/dL (7-18); BUN/Creat Ratio 46.8 RATIO (10-20); Calcium,Total 9.6 mg/dL (8.5-10.1); Chloride 98 mmol/L (98-107); Creatinine, Serum 1.09 mg/dL (0.70-1.30); EST Glomerular Filtration Rate 70 mL/min (>60); Est Glom Filt Rate - Afr Amer 85 mL/min (>60); Estimated Creatinine Clearance 56.43 ml/min; Glucose 183 mg/dL (74-106); Potassium 3.4 mmol/L (3.5-5.1); Sodium Level 141 mmol/L (136-145)
[2019-04-03] MEDS: Menthol/Lanolin/Calamine/Znox 113 GM Tube 1 APPLIC TOPICAL ×2 (05:40→20:07)
[2019-04-03] MEDS: Nystatin Powder 15gm Bottle 1 APPLIC TOPICAL ×2 (05:40→20:07)
[2019-04-03] MEDS: Enoxaparin 40 MG/0.4 ML Syringe SC (05:41)
[2019-04-03 06:46] LABS: Bedside Glucose 214 mg/dL (70-110)
--- NOTE | 2019-04-03 09:22 | NURSING ---
Pt very lethargic, only alert to himself, hallucinations present, talking to and asking for his mother, Pt unable to follow simple tasks at this time. Pt unable to take his medication at this time. Hr 51 R 16 Bp. Sher YEE aware
[2019-04-03 09:49] VITALS: PULSE 51; RESP 18; O2SAT 94
[2019-04-03 10:50] LABS: Bedside Glucose 204 mg/dL (70-110)
--- NOTE | 2019-04-03 11:24 | NURSING ---
Dr. nickerson tuttle dto update on increasing confusion/lethargy/general decline, stated he would come see pt.
[2019-04-03] MEDS: Allopurinol 100 MG Tablet PO (13:26)
[2019-04-03 15:34] VITALS: BP 137/62; PULSE 54; RESP 16; TEMP 36.4; O2SAT 96
--- NOTE | 2019-04-03 16:48 | PCM.PN.ID ---
Subjective: Worsening intermittent confusion, agitation. No fever. - Physical Exam General: Alert, Oriented x3, Cooperative, No apparent distress Lungs: Clear to auscultation, Normal air movement Cardiovascular: Regular rate, Regular Rhythm Abdomen: Soft, Non Tender, Non-Distended Skin: No rashes, Ulcer/ Wound Vital Signs Temp Pulse Resp BP Pulse Ox 97.5 F L 54 L 16 137/62 H 96 04/03/19 15:34 04/03/19 15:34 04/03/19 15:34 04/03/19 15:34 04/03/19 15:34 Oxygen Delivery Method Room Air Weight: 112.264 kg Body Mass Index (BMI) 43.2 Finger Stick Blood Glucose 89 Intake and Output for Last 24 Hours 04/01/19 04/02/19 04/03/19 23:59 23:59 23:59 Intake Total 1471 / 1471 1050 / 1050 480 / 480 Output Total 125 / 125 Balance 1346 / 1346 1050 / 1050 480 / 480 Microbiology Past 72 Hours 03/31/19 18:00 Urine Culture - Final Urine, Clean Catch Culture exhibits no growth. Laboratory Tests Past 24 Hrs 04/03/19 05:13 Sodium 141 Potassium 3.4 L Chloride 98 Carbon Dioxide 35.0 H Anion Gap 8 BUN 51 H Creatinine 1.09 Estim Creat Clear Calc 56.43 Est GFR (MDRD) Af Amer 85 Est GFR (MDRD) Non-Af 70 BUN/Creatinine Ratio 46.8 H Glucose 183 H Calcium 9.6 POC Glucose 04/03/19 04/03/19 04/02/19 10:29 06:34 21:38 POC Glucose 204 H 214 H 273 H 04/02/19 17:15 POC Glucose 349 H Medical Necessity - Tobacco Use Smoking Status: Former smoker Tobacco Use: Non-smoker Route of nutrition/ use of supplements: [] Nutritional Intake: [] IV Site: [] Carney Catheter: [] - Assessment/Plan Antibiotics: [] Assessment/Plan: [] 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 Now s/p OR 03/[address] Fernando. Clinically stable, no fever, no wbc. No sign of endocarditis or metastatic infection on exam. Infection in wound extended down to hardware which was exposed. Added rifampin for biofilm penetration. Bcx neg since 03/04. Plan will be for 6 weeks of iv abx and then senior living po abx. Stop date for iv abx will be 04/16/19. Weekly bmp, cbc, LFT, vanc trough, and esr while on iv abx. Rash worse after stopping rifampin 03/17. 03/18 changed vanc to ceftaroline, stop date 04/16/19. Rash now resolved. Now with worsening delirium. Will change ceftaroline to dapto to see if this helps, same stop date. Will follow
[2019-04-03 16:55] LABS: Bedside Glucose 165 mg/dL (70-110)
[2019-04-03 17:50] VITALS: BP 137/62; PULSE 54
[2019-04-03] MEDS: Gabapentin 100 MG Capsule 200 MG PO (17:50)
[2019-04-03] MEDS: Doxepin Hcl 25 MG Capsule PO (20:08)
[2019-04-03 20:55] LABS: Bedside Glucose 199 mg/dL (70-110)
[2019-04-04] MEDS: Metolazone 2.5 MG Tablet PO (04:40)
[2019-04-04] MEDS: Polyethylene Glycol 3350 17 GM PACKET PO (04:40)
[2019-04-04] MEDS: Menthol/Lanolin/Calamine/Znox 113 GM Tube 1 APPLIC TOPICAL ×2 (04:41→20:51)
[2019-04-04] MEDS: Nystatin Powder 15gm Bottle 1 APPLIC TOPICAL ×2 (04:42→20:52)
[2019-04-04 05:52] VITALS: BP 120/63; PULSE 60
[2019-04-04] MEDS: Metoprolol(XL)Succ 25 MG Tablet 12.5 MG PO ×2 (05:52→16:31)
[2019-04-04] MEDS: Furosemide 40 MG Tablet PO ×2 (05:53→14:09)
[2019-04-04] MEDS: Losartan Potassium 100 MG Tablet PO ×2 (05:53→16:31)
[2019-04-04] MEDS: Empagliflozin 25 MG Tablet PO (05:53)
[2019-04-04] MEDS: Pantoprazole Sodium 40 MG Tablet PO (05:54)
[2019-04-04] MEDS: Levothyroxine 112 MCG Tablet PO (05:54)
[2019-04-04] MEDS: LINAGLIPTIN 5 MG TABLET PO (05:54)
[2019-04-04] MEDS: Paroxetine 20 MG Tablet 40 MG PO (05:54)
[2019-04-04] MEDS: Enoxaparin 40 MG/0.4 ML Syringe SC (05:55)
[2019-04-04] MEDS: Glucerna Shake 120 ML LIQUID PO ×4 (05:57→20:51)
[2019-04-04 06:41] LABS: Bedside Glucose 180 mg/dL (70-110)
[2019-04-04] MEDS: Gabapentin 100 MG Capsule 200 MG PO ×2 (08:09→16:31)
[2019-04-04] MEDS: Allopurinol 100 MG Tablet PO (08:09)
--- NOTE | 2019-04-04 09:28 | CASEMGMT ---
Insurance: Clinical update faxed. Auth# [id number] ANIL Devries
[2019-04-04] MEDS: DULAGLUTIDE 1.5 MG/0.5 ML PEN.INJCTR SQ (10:41)
--- NOTE | 2019-04-04 11:36 | MDS.RN ---
Pain interview for owen 04/07/19 completed.
[2019-04-04 11:50] LABS: Bedside Glucose 345 mg/dL (70-110)
--- NOTE | 2019-04-04 12:13 | NURSING ---
blood sugar 345, refusing to eat. dr posada updated, new order humalog 5 units x1
[2019-04-04] MEDS: Insulin Lispro 100 UNIT/ML INSULN.PEN SC (12:27)
[2019-04-04 14:53] VITALS: BP 141/60; PULSE 56; RESP 16; TEMP 36.6; O2SAT 94
[2019-04-04 16:31] VITALS: BP 141/60; PULSE 56
[2019-04-04 16:45] LABS: Bedside Glucose 268 mg/dL (70-110)
[2019-04-04 20:51] LABS: Bedside Glucose 323 mg/dL (70-110)
[2019-04-04] MEDS: Doxepin Hcl 25 MG Capsule PO (20:56)
[2019-04-04 21:00] VITALS: PULSE 64; RESP 18; O2SAT 93
--- NOTE | 2019-04-05 03:34 | NURSING ---
All care this shift provided in room due to Isolation.
[2019-04-05] MEDS: Menthol/Lanolin/Calamine/Znox 113 GM Tube 1 APPLIC TOPICAL ×2 (04:43→20:15)
[2019-04-05] MEDS: Nystatin Powder 15gm Bottle 1 APPLIC TOPICAL ×2 (04:43→20:16)
[2019-04-05] MEDS: Polyethylene Glycol 3350 17 GM PACKET PO (04:47)
[2019-04-05] MEDS: Metolazone 2.5 MG Tablet PO (04:47)
[2019-04-05 05:46] VITALS: BP 124/54; PULSE 61
[2019-04-05] MEDS: Metoprolol(XL)Succ 25 MG Tablet 12.5 MG PO ×2 (05:46→18:36)
[2019-04-05] MEDS: Empagliflozin 25 MG Tablet PO (05:46)
[2019-04-05] MEDS: Levothyroxine 112 MCG Tablet PO (05:47)
[2019-04-05] MEDS: Pantoprazole Sodium 40 MG Tablet PO (05:47)
[2019-04-05] MEDS: Furosemide 40 MG Tablet PO ×2 (05:47→14:37)
[2019-04-05] MEDS: LINAGLIPTIN 5 MG TABLET PO (05:48)
[2019-04-05] MEDS: Losartan Potassium 100 MG Tablet PO ×2 (05:48→18:36)
[2019-04-05] MEDS: Paroxetine 20 MG Tablet 40 MG PO (05:48)
[2019-04-05] MEDS: Glucerna Shake 120 ML LIQUID PO ×4 (05:48→20:16)
[2019-04-05] MEDS: Enoxaparin 40 MG/0.4 ML Syringe SC (05:49)
[2019-04-05 06:41] LABS: Bedside Glucose 193 mg/dL (70-110)
[2019-04-05] MEDS: Gabapentin 100 MG Capsule 200 MG PO (08:27)
[2019-04-05] MEDS: Allopurinol 100 MG Tablet PO (08:27)
[2019-04-05] MEDS: Insulin Lispro 100 UNIT/ML INSULN.PEN 7 UNIT SC ×2 (08:45→11:43)
[2019-04-05 11:20] LABS: Bedside Glucose 310 mg/dL (70-110)
--- NOTE | 2019-04-05 12:11 | NURSING ---
Pt very confused and not making any sense. Pt hallucinating and calling out. BP 114/63, P 62, R 18, T 98.0, SpO2 96% on RA, BS 310. Melinda YEE made aware.
[2019-04-05 14:13] VITALS: BP 165/70; PULSE 54; RESP 28; TEMP 36.6; O2SAT 98
[2019-04-05 16:46] LABS: Bedside Glucose 180 mg/dL (70-110)
[2019-04-05] MEDS: 0.9% NaCl PICC Flush IV ×2 (17:07→21:42)
[2019-04-05] MEDS: 0.9% NaCl IVPB Med Flush (250 mL) 15 ML IV (17:07)
[2019-04-05] MEDS: Insulin Lispro 100 UNIT/ML INSULN.PEN 10 UNIT SC (18:34)
[2019-04-05 18:36] VITALS: BP 124/70; PULSE 64
[2019-04-05 18:39] VITALS: BP 124/70; PULSE 64
[2019-04-05] MEDS: Acetaminophen 500 MG Tablet 1000 MG PO (20:15)
[2019-04-05] MEDS: Doxepin Hcl 25 MG Capsule PO (20:17)
[2019-04-05 20:46] LABS: Bedside Glucose 223 mg/dL (70-110)
[2019-04-05 21:03] VITALS: PULSE 78; RESP 18; O2SAT 94
[2019-04-06] MEDS: Metolazone 2.5 MG Tablet PO (05:18)
[2019-04-06] MEDS: Losartan Potassium 100 MG Tablet PO ×2 (05:58→17:22)
[2019-04-06] MEDS: Glucerna Shake 120 ML LIQUID PO ×4 (05:58→21:13)
[2019-04-06] MEDS: Menthol/Lanolin/Calamine/Znox 113 GM Tube 1 APPLIC TOPICAL ×2 (05:58→21:13)
[2019-04-06 05:59] VITALS: BP 132/70; PULSE 64
[2019-04-06] MEDS: LINAGLIPTIN 5 MG TABLET PO (05:59)
[2019-04-06] MEDS: Levothyroxine 112 MCG Tablet PO (05:59)
[2019-04-06] MEDS: Pantoprazole Sodium 40 MG Tablet PO (05:59)
[2019-04-06] MEDS: Metoprolol(XL)Succ 25 MG Tablet 12.5 MG PO ×2 (05:59→17:22)
[2019-04-06] MEDS: Furosemide 40 MG Tablet PO ×2 (06:00→13:16)
[2019-04-06] MEDS: Nystatin Powder 15gm Bottle 1 APPLIC TOPICAL ×2 (06:00→21:14)
[2019-04-06] MEDS: Paroxetine 20 MG Tablet 40 MG PO (06:01)
[2019-04-06] MEDS: Enoxaparin 40 MG/0.4 ML Syringe SC (06:01)
[2019-04-06] MEDS: Empagliflozin 25 MG Tablet PO (06:01)
[2019-04-06] MEDS: Polyethylene Glycol 3350 17 GM PACKET PO (06:01)
[2019-04-06 06:36] LABS: Bedside Glucose 192 mg/dL (70-110)
[2019-04-06] MEDS: Gabapentin 100 MG Capsule PO ×2 (08:15→17:22)
[2019-04-06] MEDS: Allopurinol 100 MG Tablet PO (08:15)
[2019-04-06] MEDS: Insulin Lispro 100 UNIT/ML INSULN.PEN 10 UNIT SC ×3 (08:16→17:21)
[2019-04-06 11:06] LABS: Bedside Glucose 260 mg/dL (70-110)
[2019-04-06 16:00] VITALS: BP 127/59; PULSE 62; RESP 18; TEMP 36.7; O2SAT 97
[2019-04-06] MEDS: 0.9% NaCl PICC Flush IV ×2 (17:01→22:18)
[2019-04-06 17:11] LABS: Bedside Glucose 283 mg/dL (70-110)
[2019-04-06 17:22] VITALS: BP 127/59; PULSE 62
[2019-04-06 20:39] VITALS: PULSE 77; RESP 18; O2SAT 95
[2019-04-06 21:11] LABS: Bedside Glucose 212 mg/dL (70-110)
[2019-04-06] MEDS: Doxepin Hcl 25 MG Capsule PO (21:14)
[2019-04-07] MEDS: Metolazone 2.5 MG Tablet PO (05:15)
[2019-04-07] MEDS: LINAGLIPTIN 5 MG TABLET PO (06:04)
[2019-04-07] MEDS: Menthol/Lanolin/Calamine/Znox 113 GM Tube 1 APPLIC TOPICAL ×2 (06:04→21:00)
[2019-04-07] MEDS: Paroxetine 20 MG Tablet 40 MG PO (06:04)
[2019-04-07] MEDS: Pantoprazole Sodium 40 MG Tablet PO (06:04)
[2019-04-07] MEDS: Polyethylene Glycol 3350 17 GM PACKET PO (06:05)
[2019-04-07 06:06] VITALS: BP 131/68; PULSE 67
[2019-04-07] MEDS: Metoprolol(XL)Succ 25 MG Tablet 12.5 MG PO ×2 (06:06→17:36)
[2019-04-07] MEDS: Enoxaparin 40 MG/0.4 ML Syringe SC (06:06)
[2019-04-07] MEDS: Empagliflozin 25 MG Tablet PO (06:06)
[2019-04-07] MEDS: Glucerna Shake 120 ML LIQUID PO ×4 (06:07→20:59)
[2019-04-07] MEDS: Levothyroxine 112 MCG Tablet PO (06:07)
[2019-04-07] MEDS: Losartan Potassium 100 MG Tablet PO ×2 (06:07→17:36)
[2019-04-07] MEDS: Nystatin Powder 15gm Bottle 1 APPLIC TOPICAL ×2 (06:07→21:00)
[2019-04-07] MEDS: Furosemide 40 MG Tablet PO ×2 (06:07→13:36)
[2019-04-07 06:31] LABS: Bedside Glucose 222 mg/dL (70-110)
[2019-04-07] MEDS: Insulin Lispro 100 UNIT/ML INSULN.PEN 10 UNIT SC ×3 (06:37→17:41)
[2019-04-07] MEDS: Gabapentin 100 MG Capsule PO ×2 (08:34→17:36)
[2019-04-07] MEDS: Allopurinol 100 MG Tablet PO (08:34)
[2019-04-07 10:55] LABS: Bedside Glucose 222 mg/dL (70-110)
--- NOTE | 2019-04-07 10:59 | NURSING ---
wound photo: right lateral lower leg
--- NOTE | 2019-04-07 11:39 | CASEMGMT ---
Insurance Continued stay approved with next update due 04/10/19. Auth # [id number] ANIL Devries
--- NOTE | 2019-04-07 14:17 | CASEMGMT ---
Social Work: Brief interview for mental status (BIMS) and mood assessment (PHQ-9) completed this day. BERLIN Mullen
[2019-04-07 15:39] VITALS: BP 122/52; PULSE 64; RESP 18; TEMP 36.5; O2SAT 95
[2019-04-07] MEDS: 0.9% NaCl IVPB Med Flush (250 mL) 15 ML IV (16:17)
--- NOTE | 2019-04-07 16:26 | CHAPLAIN ---
Type of Pastoral Visit ___ Initial Visit _x__ Follow-up Visit ___ On-call Visit ___ General Patient Visit ___ Spiritual Assessment ___ Family Conference ___ Bereavement ___ Rapid Response ___ Code Blue ___ Other (describe below) Pastoral Care Referral From _x__ Patient ___ Family ___ Nurse ___ Physician ___ Genetics Nurse ___ Cargo Supervisor ___ Other (describe below) Sacrament/Intervention _x__ Active listening ___ Anointing ___ Nondenominational ___ Bereavement ___ Communion ___ Scarlett exploration ___ ___ Life review _x__ Prayer ___ Reconciliation ___ Sacrament of Sick _x__ Supportive presence ___ Wedding ___ Other (describe below) Pastoral Comments
[2019-04-07 17:20] LABS: Bedside Glucose 232 mg/dL (70-110)
[2019-04-07 17:36] VITALS: BP 122/52; PULSE 64
[2019-04-07 17:53] LABS: AST(SGOT) 15 U/L (15-37); Alanine Aminotransfer ALT/SGPT 9 U/L (16-61); Alkaline Phosphatase 128 U/L (45-117); Anion Gap 8 (5-15); BUN 63 mg/dL (7-18); BUN/Creat Ratio 46.3 RATIO (10-20); Bilirubin, Direct 0.07 mg/dL (0.00-0.30); CPK Total, Creatine Kinase 40 U/L (39-308); Calcium,Total 9.7 mg/dL (8.5-10.1); Chloride 97 mmol/L (98-107); Creatinine, Serum 1.36 mg/dL (0.70-1.30); EST Glomerular Filtration Rate 55 mL/min (>60); Est Glom Filt Rate - Afr Amer 66 mL/min (>60); Estimated Creatinine Clearance 45.23 ml/min; Globulin 5.5 g/dL (2.2-4.2); Glucose 240 mg/dL (74-106); Potassium 3.6 mmol/L (3.5-5.1); Protein, Total 8.5 g/dL (6.4-8.2); Sodium Level 135 mmol/L (136-145)
--- NOTE | 2019-04-07 19:36 | NURSING ---
RN into asses PICC, blood return noted with normal saline flush. Cathflo not administered.
--- NOTE | 2019-04-07 19:37 | PCM.TCUNOT ---
Subjective: Resident seen in room, sitting in chair. His delirium has cleared, he still has decreased appetite, I encouraged him to eat. Vitals/I&O's: Vital Signs Temp Pulse Resp BP Pulse Ox 97.7 F L 64 18 122/52 H 95 04/07/19 15:39 04/07/19 17:36 04/07/19 15:39 04/07/19 17:36 04/07/19 15:39 Oxygen Delivery Method Room Air Weight: 112.264 kg Body Mass Index (BMI) 43.2 Finger Stick Blood Glucose 89 Intake and Output for Last 24 Hours 04/05/19 04/06/19 04/07/19 23:59 23:59 23:59 Intake Total 1320 / 1320 840 / 840 1440 / 1440 Output Total 100 / 100 Balance 1320 / 1320 840 / 840 1340 / 1340 Laboratory Results 04/06/19 20:58: POC Glucose 212 H 04/07/19 06:25: POC Glucose 222 H 04/07/19 10:30: POC Glucose 222 H 04/07/19 16:50: Sodium 135 L, Potassium 3.6, Chloride 97 L, Carbon Dioxide 30.0, Anion Gap 8, BUN 63 H, Creatinine 1.36 H, Estim Creat Clear Calc 45.23, Est GFR (MDRD) Af Amer 66, Est GFR (MDRD) Non-Af 55 L, BUN/Creatinine Ratio 46.3 H, Glucose 240 H, Calcium 9.7, Total Bilirubin 0.30, Direct Bilirubin 0.07, AST 15, ALT 9 L, Alkaline Phosphatase 128 H, Total Creatine Kinase 40, Total Protein 8.5 H, Albumin 3.0 L, Globulin 5.5 H 04/07/19 17:15: POC Glucose 232 H Past Medical History Past Medical History (Chronic Problems): Chronic Problems (Last Reviewed 01/26/19 @ 17:02 by Bib Judge DO) Hypothyroidism (Chronic) Sleep apnea (Chronic) Body mass index (BMI) 40.0-44.9, adult (Chronic) 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 Fracture of right tibia and fibula (Chronic) recent - January 2019 Lymphedema (Chronic) Diabetes mellitus (Chronic) GERD (gastroesophageal reflux disease) (Chronic) Lumbar spinal stenosis (Chronic) Osteoarthritis of knees, bilateral (Chronic) Depression (Chronic) Gout (Chronic) Neuropathic pain (Chronic) Low back pain (Chronic) Chronic venous insufficiency (Chronic) EH (obstructive sleep apnea) (Chronic) Tricuspid valve insufficiency (Chronic) Obesity, morbid, BMI 40.0-49.9 (Chronic) Non-rheumatic tricuspid valve insufficiency (Chronic) Chronic diastolic (congestive) heart failure (Chronic) Hyperlipidemia (Chronic) Hypertension (Chronic) Medical History: Medical History (Last Reviewed 01/26/19 @ 17:02 by Bib Judge DO) Non-rheumatic tricuspid valve insufficiency (Chronic) I36.1 Chronic diastolic (congestive) heart failure (Chronic) I50.32 Hyperlipidemia (Chronic) E78.5 Hypertension (Chronic) I10 Asbestos exposure Z77.090 GERD (gastroesophageal reflux disease) K21.9 Hypothyroidism E03.9 Obstructive sleep apnea G47.33 Type 2 diabetes mellitus E11.9 Venous stasis dermatitis of right lower extremity (Inactive) I83.11 Allergies cocaine Allergy (Verified 09/11/18 13:52) Unknown vancomycin Allergy (Verified 03/20/19 16:27) Rash atorvastatin calcium [From Lipitor] Adverse Reaction (Verified 09/11/18 13:52) Pain in joints haloperidol [From Haldol] Adverse Reaction (Verified 09/11/18 13:52) Other WENT CRAZY morphine Adverse Reaction (Verified 09/11/18 13:52) Other extremely aggitated oxycodone [From OxyIR] Adverse Reaction (Verified 09/11/18 13:52) Pain in joints extremely aggitated prednisone Adverse Reaction (Verified 09/11/18 13:52) ANXIOUS, INSOMNIA STERIODS Adverse Reaction (Uncoded 08/16/18 02:59) Other ANXIETY INSOMNIA Home Medications: Ambulatory Orders Medication Instructions Recorded Paroxetine HCl [Paxil] 40 mg PO DAILY 09/27/16 Potassium Chloride [K-Dur] 20 meq PO BIDCM 09/27/16 Simvastatin [Zocor] 40 mg PO QHS 09/27/16 traZODone [Desyrel] 50 mg PO QHS 09/27/16 Divalproex Sodium [Depakote] 500 mg PO BID 08/14/17 Allopurinol 100 mg PO DAILY 05/17/18 gabapentin 300 mg capsule 300 mg PO BID cap 07/17/18 Diclofenac Sodium 25 mg PO BID 08/16/18 Losartan Potassium 100 mg PO BID #60 tablet 09/09/18 Dulaglutide [Trulicity] 1.5 mg SQ QWEEK 01/26/19 Cholecalciferol (Vitamin D3) 2,000 unit PO DAILY 02/03/19 [Vitamin D3] Empagliflozin [Jardiance] 25 mg PO DAILY 02/03/19 Metoprolol(XL)Succ [Toprol Xl 12.5 mg PO BID 02/03/19 (Beta Romel)] Acetaminophen [Tylenol] 1,000 mg PO Q6H PRN PRN tablet 02/24/19 Aspirin 81 mg PO BID #0 02/24/19 Bisacodyl [Dulcolax] 10 mg PO DAILY PRN tablet 02/24/19 Enoxaparin [Lovenox] 40 mg SC DAILY@0600 03/10/19 Furosemide [Lasix] 40 mg PO BIDLX 03/10/19 Insulin Lispro [Humalog Kwikpen] 100 unit SQ TID 03/10/19 Levothyroxine [Synthroid] 112 mcg PO DAILY@0600 03/10/19 Linagliptin [Tradjenta] 5 mg PO DAILY 03/10/19 Melatonin 10 mg PO QHS 03/10/19 Menthol/Lanolin/Calamine/Znox 1 applic TOPICAL 0600,0 03/10/19 [Calmoseptine Ointment] Nutritional Supplement [Edy - 1 packet PO BIDCM 03/10/19 ORANGE FLAVOR] Nystatin Powder [Mycostatin Powder] 1 applic TOPICAL 0600,0 03/10/19 Polyethylene Glycol 3350 [Miralax] 17 gm PO Q48H PRN #0 packet 03/10/19 Rifampin [Rifadin] 300 mg PO BID 03/10/19 Vancomycin IV 1,250 mg IV Q18H 03/10/19 Surgical History: Surgical History (Last Reviewed 01/26/19 @ 17:02 by Bib Judge DO) Cochlear implant in place Z96.21 H/O shoulder surgery Z98.890 History of left heart catheterization Onset Date: 08/15/17 Z98.890 non obstructive coronary arteries History of right knee joint replacement Z96.651 Hx of cholecystectomy Z90.49 Previous back surgery Z98.890 Surgical History: cholecystectomy, total hip arthroplasty - Right, total knee arthroplasty - Right., - - Left shoulder surgery with rotator cuff repair; back surgery x 4; left cochlear implant. Psychiatric History: Depression Lives: Spouse/ Significant Other Smoking Status: Former smoker Tobacco Use: Non-smoker Alcohol: None Drugs: None - *Family History Maternal Family History: Family History (Last Reviewed 01/26/19 @ 17:02 by Bib Judge DO) Mother Hypertension Father Hypertension History Items: Dementia, Hypertension Paternal Family History: Family History (Last Reviewed 01/26/19 @ 17:02 by Bib Judge DO) Mother Hypertension Father Hypertension History Items: Heart Disease, Hypertension Capacity - Capacity Assessment Tool Can the patient make a choice & communicate that choice?: Yes Can the patient understand benefits, risks and alternatives?: Yes Can the patient make a logical, rational choice?: Yes Is the choice the patient makes consistent w/ their values?: Yes Is there an impending, emergent risk to the patient?: No Does the patient have an Advance Directive?: No Is there a Surrogate Available?: Yes i.e. HCPOA: Yes i.e. close relative (spouse, child, parent, sibling)?: Yes Review of Systems Constitutional: Denies: Chills, Fever, Weight Change HEENT: Denies: Head Aches, Sinus Congestion, Sinus Drainage Cardiovascular: Denies: Chest Pain, Palpitations Respiratory: Denies: Cough, Shortness of breath at rest, Sputum production Gastrointestinal: Denies: Abdominal Pain, Nausea, Vomiting Genitourinary: Denies: Dysuria Musculoskeletal: Denies: Joint Pain, Joint Tenderness Skin: Denies: Rash, Wounds Neurological: Denies: Numbness, Tingling, Focal weakness Psychiatric: Denies: Anxiety, Depression, Homicidal Ideations, Suicidal Ideations Hematologic/ Lymphatic: Denies: Easy Bruising, Easy Bleeding - Physical Exam General: Alert, Oriented x3, Cooperative HEENT: Atraumatic, PERRLA, EOMI, Normocephalic Neck: Supple, No JVD, Negative Carotid Bruits Lungs: Clear to auscultation, Normal air movement Cardiovascular: Regular rate, No murmurs Abdomen: Bowel Sounds Present, Soft, Non Tender Extremities: No edema, Capillary Refill Less than 3 Seconds Skin: No rashes, Ulcer/ Wound - Right lateral leg wound healing well, see photo. Musculoskeletal: No Tenderness to Palpation of Joints or Extremities Neurological: Cranial nerves II-XII grossly intact Psych/Mental Status: Normal Affect, Appropriate Vital Signs Temp Pulse Resp BP Pulse Ox 97.7 F L 64 18 122/52 H 95 04/07/19 15:39 04/07/19 17:36 04/07/19 15:39 04/07/19 17:36 04/07/19 15:39 Oxygen Delivery Method Room Air Weight: 112.264 kg Body Mass Index (BMI) 43.2 Finger Stick Blood Glucose 89 Intake and Output for Last 24 Hours 04/05/19 04/06/19 04/07/19 23:59 23:59 23:59 Intake Total 1320 / 1320 840 / 840 1440 / 1440 Output Total 100 / 100 Balance 1320 / 1320 840 / 840 1340 / 1340 Laboratory Tests Past 24 Hrs 04/07/19 16:50 Sodium 135 L Potassium 3.6 Chloride 97 L Carbon Dioxide 30.0 Anion Gap 8 BUN 63 H Creatinine 1.36 H Estim Creat Clear Calc 45.23 Est GFR (MDRD) Af Amer 66 Est GFR (MDRD) Non-Af 55 L BUN/Creatinine Ratio 46.3 H Glucose 240 H Calcium 9.7 Total Bilirubin 0.30 Direct Bilirubin 0.07 AST 15 ALT 9 L Alkaline Phosphatase 128 H Total Creatine Kinase 40 Total Protein 8.5 H Albumin 3.0 L Globulin 5.5 H POC Glucose 04/07/19 04/07/19 04/07/19 17:15 10:30 06:25 POC Glucose 232 H 222 H 222 H 04/06/19 20:58 POC Glucose 212 H Assessment/Plan All Active Problems (Last Reviewed 01/26/19 @ 17:02 by Bib Judge DO) Abscess of right leg (Acute) MRSA (methicillin resistant Staphylococcus aureus) infection (Acute) Unspecified fracture of shaft of right tibia, sequela (Acute) MRSA bacteremia (Resolved) Hypokalemia (Resolved) Hypothyroidism (Resolved) 73 year old male with below past medical history hospitalized for MRSA infected right leg ulcer, underwent debridement with Dr. Fernando 03/05/2019, admitted to TCU with debility, here for rehabilitation, strengthening, intravenous antibiotic, wound care, prior to discharge home with spouse. Debility - PT/OT. Pain - Tylenol 1000MG Q6H PRN mild pain. Bowel - Miralax 17GM daily, Dulcolax 10MG PO daily PRN. Pneumonia vaccination - Administer Prevnar 13 and/or Pneumovax 23 as necessary. DVT prophylaxis - Lovenox 40MG daily. MRSA right lower extremity wound - Vancomycin to Ceftaroline to Daptomycin, stop date 04/16/2019, Appreciate Dr. Pickering's help. Gout - Allopurinol 100MG daily. Vitamin D deficiency - D3 2000IU daily. Diabetic polyneuropathy - OFF Depakote 500MG twice daily, Tapering OFF Gabapentin. Diabetes Mellitus II - Trulicity 1.5MG per week, Jardiance 25MG daily, Tradjenta 5MG daily, Lantus 30 units QHS, Humalog 10 units TIDAC. Chronic diastolic heart failure - Metoprolol succinate 12.5MG twice daily, Losartan 100MG twice daily, Lasix 40MG twice daily, Metolazone 2.5MG daily. Hypothyroidism - Levothyroxine 112MCG daily. Insomnia - Doxepin 25MG QHS. Skin irritation - Calmoseptine BID bilateral buttocks, Eucerin BID. Right lower extremity wound - Healing well, Wound team, Edy 1 packet BID. Tinea Corporis - Nystatin powder twice daily groin. Depression - Paroxetine 40MG daily. Hypokalemia - K-Dur 40MEQ twice daily. Hyperlipidemia - Simvastatin 40MG QHS. Nutrition - Glucerna 120ML 4x/day, resident trying to eat better. GERD - Pantoprazole 40MG daily.
[2019-04-07] MEDS: 0.9% NaCl PICC Flush IV ×2 (19:38→19:39)
--- NOTE | 2019-04-07 19:43 | PN_ITS ---
Subjective: Resident seen in room, sitting in chair. His delirium has cleared, he still has decreased appetite, I encouraged him to eat. Vitals/I&O's: Vital Signs Temp Pulse Resp BP Pulse Ox 97.7 F L 64 18 122/52 H 95 04/07/19 15:39 04/07/19 17:36 04/07/19 15:39 04/07/19 17:36 04/07/19 15:39 Oxygen Delivery Method Room Air Weight: 112.264 kg Body Mass Index (BMI) 43.2 Finger Stick Blood Glucose 89 Intake and Output for Last 24 Hours 04/05/19 04/06/19 04/07/19 23:59 23:59 23:59 Intake Total 1320 / 1320 840 / 840 1440 / 1440 Output Total 100 / 100 Balance 1320 / 1320 840 / 840 1340 / 1340 Laboratory Results 04/06/19 20:58: POC Glucose 212 H 04/07/19 06:25: POC Glucose 222 H 04/07/19 10:30: POC Glucose 222 H 04/07/19 16:50: Sodium 135 L, Potassium 3.6, Chloride 97 L, Carbon Dioxide 30.0, Anion Gap 8, BUN 63 H, Creatinine 1.36 H, Estim Creat Clear Calc 45.23, Est GFR (MDRD) Af Amer 66, Est GFR (MDRD) Non-Af 55 L, BUN/Creatinine Ratio 46.3 H, Glucose 240 H, Calcium 9.7, Total Bilirubin 0.30, Direct Bilirubin 0.07, AST 15, ALT 9 L, Alkaline Phosphatase 128 H, Total Creatine Kinase 40, Total Protein 8.5 H, Albumin 3.0 L, Globulin 5.5 H 04/07/19 17:15: POC Glucose 232 H Past Medical History Past Medical History (Chronic Problems): Chronic Problems (Last Reviewed 01/26/19 @ 17:02 by Bib Judge DO) Hypothyroidism (Chronic) Sleep apnea (Chronic) Body mass index (BMI) 40.0-44.9, adult (Chronic) 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 Fracture of right tibia and fibula (Chronic) recent - January 2019 Lymphedema (Chronic) Diabetes mellitus (Chronic) GERD (gastroesophageal reflux disease) (Chronic) Lumbar spinal stenosis (Chronic) Osteoarthritis of knees, bilateral (Chronic) Depression (Chronic) Gout (Chronic) Neuropathic pain (Chronic) Low back pain (Chronic) Chronic venous insufficiency (Chronic) EH (obstructive sleep apnea) (Chronic) Tricuspid valve insufficiency (Chronic) Obesity, morbid, BMI 40.0-49.9 (Chronic) Non-rheumatic tricuspid valve insufficiency (Chronic) Chronic diastolic (congestive) heart failure (Chronic) Hyperlipidemia (Chronic) Hypertension (Chronic) Medical History: Medical History (Last Reviewed 01/26/19 @ 17:02 by Bib Judge DO) Non-rheumatic tricuspid valve insufficiency (Chronic) I36.1 Chronic diastolic (congestive) heart failure (Chronic) I50.32 Hyperlipidemia (Chronic) E78.5 Hypertension (Chronic) I10 Asbestos exposure Z77.090 GERD (gastroesophageal reflux disease) K21.9 Hypothyroidism E03.9 Obstructive sleep apnea G47.33 Type 2 diabetes mellitus E11.9 Venous stasis dermatitis of right lower extremity (Inactive) I83.11 Allergies cocaine Allergy (Verified 09/11/18 13:52) Unknown vancomycin Allergy (Verified 03/20/19 16:27) Rash atorvastatin calcium [From Lipitor] Adverse Reaction (Verified 09/11/18 13:52) Pain in joints haloperidol [From Haldol] Adverse Reaction (Verified 09/11/18 13:52) Other WENT CRAZY morphine Adverse Reaction (Verified 09/11/18 13:52) Other extremely aggitated oxycodone [From OxyIR] Adverse Reaction (Verified 09/11/18 13:52) Pain in joints extremely aggitated prednisone Adverse Reaction (Verified 09/11/18 13:52) ANXIOUS, INSOMNIA STERIODS Adverse Reaction (Uncoded 08/16/18 02:59) Other ANXIETY INSOMNIA Home Medications: Ambulatory Orders Medication Instructions Recorded Paroxetine HCl [Paxil] 40 mg PO DAILY 09/27/16 Potassium Chloride [K-Dur] 20 meq PO BIDCM 09/27/16 Simvastatin [Zocor] 40 mg PO QHS 09/27/16 traZODone [Desyrel] 50 mg PO QHS 09/27/16 Divalproex Sodium [Depakote] 500 mg PO BID 08/14/17 Allopurinol 100 mg PO DAILY 05/17/18 gabapentin 300 mg capsule 300 mg PO BID cap 07/17/18 Diclofenac Sodium 25 mg PO BID 08/16/18 Losartan Potassium 100 mg PO BID #60 tablet 09/09/18 Dulaglutide [Trulicity] 1.5 mg SQ QWEEK 01/26/19 Cholecalciferol (Vitamin D3) 2,000 unit PO DAILY 02/03/19 [Vitamin D3] Empagliflozin [Jardiance] 25 mg PO DAILY 02/03/19 Metoprolol(XL)Succ [Toprol Xl 12.5 mg PO BID 02/03/19 (Beta Romel)] Acetaminophen [Tylenol] 1,000 mg PO Q6H PRN PRN tablet 02/24/19 Aspirin 81 mg PO BID #0 02/24/19 Bisacodyl [Dulcolax] 10 mg PO DAILY PRN tablet 02/24/19 Enoxaparin [Lovenox] 40 mg SC DAILY@0600 03/10/19 Furosemide [Lasix] 40 mg PO BIDLX 03/10/19 Insulin Lispro [Humalog Kwikpen] 100 unit SQ TID 03/10/19 Levothyroxine [Synthroid] 112 mcg PO DAILY@0600 03/10/19 Linagliptin [Tradjenta] 5 mg PO DAILY 03/10/19 Melatonin 10 mg PO QHS 03/10/19 Menthol/Lanolin/Calamine/Znox 1 applic TOPICAL 0600,0 03/10/19 [Calmoseptine Ointment] Nutritional Supplement [Edy - 1 packet PO BIDCM 03/10/19 ORANGE FLAVOR] Nystatin Powder [Mycostatin Powder] 1 applic TOPICAL 0600,0 03/10/19 Polyethylene Glycol 3350 [Miralax] 17 gm PO Q48H PRN #0 packet 03/10/19 Rifampin [Rifadin] 300 mg PO BID 03/10/19 Vancomycin IV 1,250 mg IV Q18H 03/10/19 Surgical History: Surgical History (Last Reviewed 01/26/19 @ 17:02 by Bib Judge DO) Cochlear implant in place Z96.21 H/O shoulder surgery Z98.890 History of left heart catheterization Onset Date: 08/15/17 Z98.890 non obstructive coronary arteries History of right knee joint replacement Z96.651 Hx of cholecystectomy Z90.49 Previous back surgery Z98.890 Surgical History: cholecystectomy, total hip arthroplasty - Right, total knee arthroplasty - Right., - - Left shoulder surgery with rotator cuff repair; back surgery x 4; left cochlear implant. Psychiatric History: Depression Lives: Spouse/ Significant Other Smoking Status: Former smoker Tobacco Use: Non-smoker Alcohol: None Drugs: None - *Family History Maternal Family History: Family History (Last Reviewed 01/26/19 @ 17:02 by Bib Judge DO) Mother Hypertension Father Hypertension History Items: Dementia, Hypertension Paternal Family History: Family History (Last Reviewed 01/26/19 @ 17:02 by Bib Judge DO) Mother Hypertension Father Hypertension History Items: Heart Disease, Hypertension Capacity - Capacity Assessment Tool Can the patient make a choice & communicate that choice?: Yes Can the patient understand benefits, risks and alternatives?: Yes Can the patient make a logical, rational choice?: Yes Is the choice the patient makes consistent w/ their values?: Yes Is there an impending, emergent risk to the patient?: No Does the patient have an Advance Directive?: No Is there a Surrogate Available?: Yes i.e. HCPOA: Yes i.e. close relative (spouse, child, parent, sibling)?: Yes Review of Systems Constitutional: Denies: Chills, Fever, Weight Change HEENT: Denies: Head Aches, Sinus Congestion, Sinus Drainage Cardiovascular: Denies: Chest Pain, Palpitations Respiratory: Denies: Cough, Shortness of breath at rest, Sputum production Gastrointestinal: Denies: Abdominal Pain, Nausea, Vomiting Genitourinary: Denies: Dysuria Musculoskeletal: Denies: Joint Pain, Joint Tenderness Skin: Denies: Rash, Wounds Neurological: Denies: Numbness, Tingling, Focal weakness Psychiatric: Denies: Anxiety, Depression, Homicidal Ideations, Suicidal Ideations Hematologic/ Lymphatic: Denies: Easy Bruising, Easy Bleeding - Physical Exam General: Alert, Oriented x3, Cooperative HEENT: Atraumatic, PERRLA, EOMI, Normocephalic Neck: Supple, No JVD, Negative Carotid Bruits Lungs: Clear to auscultation, Normal air movement Cardiovascular: Regular rate, No murmurs Abdomen: Bowel Sounds Present, Soft, Non Tender Extremities: No edema, Capillary Refill Less than 3 Seconds Skin: No rashes, Ulcer/ Wound - Right lateral leg wound healing well, see photo. Musculoskeletal: No Tenderness to Palpation of Joints or Extremities Neurological: Cranial nerves II-XII grossly intact Psych/Mental Status: Normal Affect, Appropriate Vital Signs Temp Pulse Resp BP Pulse Ox 97.7 F L 64 18 122/52 H 95 04/07/19 15:39 04/07/19 17:36 04/07/19 15:39 04/07/19 17:36 04/07/19 15:39 Oxygen Delivery Method Room Air Weight: 112.264 kg Body Mass Index (BMI) 43.2 Finger Stick Blood Glucose 89 Intake and Output for Last 24 Hours 04/05/19 04/06/19 04/07/19 23:59 23:59 23:59 Intake Total 1320 / 1320 840 / 840 1440 / 1440 Output Total 100 / 100 Balance 1320 / 1320 840 / 840 1340 / 1340 Laboratory Tests Past 24 Hrs 04/07/19 16:50 Sodium 135 L Potassium 3.6 Chloride 97 L Carbon Dioxide 30.0 Anion Gap 8 BUN 63 H Creatinine 1.36 H Estim Creat Clear Calc 45.23 Est GFR (MDRD) Af Amer 66 Est GFR (MDRD) Non-Af 55 L BUN/Creatinine Ratio 46.3 H Glucose 240 H Calcium 9.7 Total Bilirubin 0.30 Direct Bilirubin 0.07 AST 15 ALT 9 L Alkaline Phosphatase 128 H Total Creatine Kinase 40 Total Protein 8.5 H Albumin 3.0 L Globulin 5.5 H POC Glucose 04/07/19 04/07/19 04/07/19 17:15 10:30 06:25 POC Glucose 232 H 222 H 222 H 04/06/19 20:58 POC Glucose 212 H Assessment/Plan All Active Problems (Last Reviewed 01/26/19 @ 17:02 by Bib Judge DO) Abscess of right leg (Acute) MRSA (methicillin resistant Staphylococcus aureus) infection (Acute) Unspecified fracture of shaft of right tibia, sequela (Acute) MRSA bacteremia (Resolved) Hypokalemia (Resolved) Hypothyroidism (Resolved) 73 year old male with below past medical history hospitalized for MRSA infected right leg ulcer, underwent debridement with Dr. Fernando 03/05/2019, admitted to TCU with debility, here for rehabilitation, strengthening, intravenous antibiotic, wound care, prior to discharge home with spouse. * Debility - PT/OT. * Pain - Tylenol 1000MG Q6H PRN mild pain. * Bowel - Miralax 17GM daily, Dulcolax 10MG PO daily PRN. * Pneumonia vaccination - Administer Prevnar 13 and/or Pneumovax 23 as necessary. * DVT prophylaxis - Lovenox 40MG daily. * MRSA right lower extremity wound - Vancomycin to Ceftaroline to Daptomycin, stop date 04/16/2019, Appreciate Dr. Pickering's help. * Gout - Allopurinol 100MG daily. * Vitamin D deficiency - D3 2000IU daily. * Diabetic polyneuropathy - OFF Depakote 500MG twice daily, Tapering OFF Gabapentin. * Diabetes Mellitus II - Trulicity 1.5MG per week, Jardiance 25MG daily, Tradjenta 5MG daily, Lantus 30 units QHS, Humalog 10 units TIDAC. * Chronic diastolic heart failure - Metoprolol succinate 12.5MG twice daily, Losartan 100MG twice daily, Lasix 40MG twice daily, Metolazone 2.5MG daily. * Hypothyroidism - Levothyroxine 112MCG daily. * Insomnia - Doxepin 25MG QHS. * Skin irritation - Calmoseptine BID bilateral buttocks, Eucerin BID. * Right lower extremity wound - Healing well, Wound team, Edy 1 packet BID. * Tinea Corporis - Nystatin powder twice daily groin. * Depression - Paroxetine 40MG daily. * Hypokalemia - K-Dur 40MEQ twice daily. * Hyperlipidemia - Simvastatin 40MG QHS. * Nutrition - Glucerna 120ML 4x/day, resident trying to eat better. * GERD - Pantoprazole 40MG daily.
[2019-04-07 21:01] LABS: Bedside Glucose 219 mg/dL (70-110)
[2019-04-07] MEDS: Doxepin Hcl 25 MG Capsule PO (21:02)
[2019-04-07 21:10] VITALS: PULSE 71; RESP 16; O2SAT 93
[2019-04-07] MEDS: Acetaminophen 500 MG Tablet 1000 MG PO (21:10)
[2019-04-08] MEDS: Metolazone 2.5 MG Tablet PO (04:35)
[2019-04-08 05:21] VITALS: BP 106/56; PULSE 70
[2019-04-08] MEDS: Metoprolol(XL)Succ 25 MG Tablet 12.5 MG PO ×2 (05:21→17:22)
[2019-04-08] MEDS: Polyethylene Glycol 3350 17 GM PACKET PO (05:21)
[2019-04-08] MEDS: LINAGLIPTIN 5 MG TABLET PO (05:21)
[2019-04-08] MEDS: Pantoprazole Sodium 40 MG Tablet PO (05:22)
[2019-04-08] MEDS: Levothyroxine 112 MCG Tablet PO (05:23)
[2019-04-08] MEDS: Furosemide 40 MG Tablet PO ×2 (05:23→13:07)
[2019-04-08] MEDS: Losartan Potassium 100 MG Tablet PO ×2 (05:24→17:22)
[2019-04-08] MEDS: Paroxetine 20 MG Tablet 40 MG PO (05:24)
[2019-04-08] MEDS: Empagliflozin 25 MG Tablet PO (05:24)
[2019-04-08] MEDS: Menthol/Lanolin/Calamine/Znox 113 GM Tube 1 APPLIC TOPICAL ×2 (05:25→20:49)
[2019-04-08] MEDS: Enoxaparin 40 MG/0.4 ML Syringe SC (05:26)
[2019-04-08] MEDS: Glucerna Shake 120 ML LIQUID PO ×4 (05:29→20:42)
[2019-04-08] MEDS: Nystatin Powder 15gm Bottle 1 APPLIC TOPICAL ×2 (05:30→20:42)
[2019-04-08 06:00] VITALS: PULSE 70; RESP 17; O2SAT 94
[2019-04-08 06:46] LABS: Bedside Glucose 235 mg/dL (70-110)
--- NOTE | 2019-04-08 07:29 | NURSING ---
Pain in patch in place left deltoid.
[2019-04-08] MEDS: Insulin Lispro 100 UNIT/ML INSULN.PEN 10 UNIT SC ×3 (08:38→17:24)
[2019-04-08] MEDS: Gabapentin 100 MG Capsule PO ×2 (08:40→17:22)
[2019-04-08] MEDS: Allopurinol 100 MG Tablet PO (08:40)
[2019-04-08 10:55] LABS: Bedside Glucose 326 mg/dL (70-110)
--- NOTE | 2019-04-08 11:12 | PN.ID_ITS ---
Subjective: Confusion improved, no fever, no myalgias. - Physical Exam General: Alert, Cooperative, No apparent distress Lungs: Clear to auscultation, Normal air movement Cardiovascular: Regular rate, Regular Rhythm Abdomen: Soft, Non Tender, Non-Distended Skin: Incision - wrapped Vital Signs Temp Pulse Resp BP Pulse Ox 97.7 F L 70 17 106/56 L 94 04/07/19 15:39 04/08/19 06:00 04/08/19 06:00 04/08/19 05:21 04/08/19 06:00 Oxygen Delivery Method Room Air Weight: 110.847 kg Body Mass Index (BMI) 43.2 Finger Stick Blood Glucose 89 Intake and Output for Last 24 Hours 04/06/19 04/07/19 04/08/19 23:59 23:59 23:59 Intake Total 840 / 840 1440 / 1440 1020 / 1020 Output Total 100 / 100 Balance 840 / 840 1340 / 1340 1020 / 1020 Laboratory Tests Past 24 Hrs 04/07/19 16:50 Sodium 135 L Potassium 3.6 Chloride 97 L Carbon Dioxide 30.0 Anion Gap 8 BUN 63 H Creatinine 1.36 H Estim Creat Clear Calc 45.23 Est GFR (MDRD) Af Amer 66 Est GFR (MDRD) Non-Af 55 L BUN/Creatinine Ratio 46.3 H Glucose 240 H Calcium 9.7 Total Bilirubin 0.30 Direct Bilirubin 0.07 AST 15 ALT 9 L Alkaline Phosphatase 128 H Total Creatine Kinase 40 Total Protein 8.5 H Albumin 3.0 L Globulin 5.5 H POC Glucose 04/08/19 04/08/19 04/07/19 10:48 06:30 20:48 POC Glucose 326 H 235 H 219 H 04/07/19 17:15 POC Glucose 232 H Medical Necessity - Tobacco Use Smoking Status: Former smoker Tobacco Use: Non-smoker Route of nutrition/ use of supplements: [] Nutritional Intake: [] IV Site: [] Carney Catheter: [] - Assessment/Plan Antibiotics: [] Assessment/Plan: [] 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 Now s/p OR 03/[address] Fernando. Clinically stable, no fever, no wbc. No sign of endocarditis or metastatic infection on exam. Infection in wound extended down to hardware which was exposed. Added rifampin for biofilm penetration. Bcx neg since 03/04. Plan will be for 6 weeks of iv abx and then [facility] po abx. Stop date for iv abx will be 04/16/19. Rash worse after stopping rifampin 03/17. 03/18 changed vanc to ceftaroline. Rash resolved, then developed progressive delirium. Changed ceftaroline to dapto with improvement. Monitoring CK and LFTs as well while on dapt. Will follow
[2019-04-08 15:38] VITALS: BP 129/64; PULSE 66; RESP 14; TEMP 36.8; O2SAT 94
[2019-04-08] MEDS: 0.9% NaCl PICC Flush IV ×2 (16:15→20:39)
[2019-04-08 16:51] LABS: Bedside Glucose 260 mg/dL (70-110)
[2019-04-08 17:22] VITALS: BP 129/64; PULSE 66
[2019-04-08 20:41] LABS: Bedside Glucose 249 mg/dL (70-110)
[2019-04-08] MEDS: Doxepin Hcl 25 MG Capsule PO (20:44)
[2019-04-09 03:52] LABS: Absolute Lymphocyte Count 2.75 X10^3/ul (0.83-4.51); Absolute Neutrophil Count 7.7 X10^3/uL (2.0-7.7); Basophil# 0.06 X10^3/uL; Basophil% 0.5 % (0-1); Eosinophil# 0.24 X10^3/uL; Hematocrit 37.6 % (40-54); Hemoglobin 12.2 g/dl (13.0-16.5); Lymphocyte # 2.75 X10^3/ul (4.0); Lymphocyte % 22.4 % (19-41); Mean Corp Hgb Conc 32.4 g/gl (32-36); Mean Corpuscular Volume 86.4 fL (80-94); Mean Platelet Vol. 10.1 fl (6.2-12.0); Monocyte# 1.51 X10^3/uL; Monocyte% 12.3 % (0-10); Neutrophil % 62.6 % (47-70); Platelet Count 423 K/mm3 (150-450); RBC Distribution Width CV 14.4 % (11.6-14.6); Red Blood Count 4.35 M/mm3 (4.6-6.2); White Blood Count 12.3 K/mm3 (4.4-11.0)
[2019-04-09 03:53] LABS: Differential Indicated SCAN CRITERIA MET; POSITIVE COUNT NO; POSITIVE DIFFERENTIAL YES; POSITIVE MORPHOLOGY NO
[2019-04-09 03:56] LABS: Erythrocyte Sedimentation Rate 74 mm/hr (0-20)
[2019-04-09 04:04] LABS: AST(SGOT) 12 U/L (15-37); Alanine Aminotransfer ALT/SGPT 12 U/L (16-61); Albumin, Serum 2.9 g/dL (3.2-5.0); Alkaline Phosphatase 123 U/L (45-117); Anion Gap 10 (5-15); BUN 65 mg/dL (7-18); BUN/Creat Ratio 52.4 RATIO (10-20); Bilirubin, Direct 0.08 mg/dL (0.00-0.30); Calcium,Total 9.5 mg/dL (8.5-10.1); Chloride 96 mmol/L (98-107); Creatinine, Serum 1.24 mg/dL (0.70-1.30); EST Glomerular Filtration Rate 61 mL/min (>60); Est Glom Filt Rate - Afr Amer 73 mL/min (>60); Globulin 4.9 g/dL (2.2-4.2); Glucose 208 mg/dL (74-106); Potassium 3.5 mmol/L (3.5-5.1); Protein, Total 7.8 g/dL (6.4-8.2); Sodium Level 138 mmol/L (136-145)
[2019-04-09] MEDS: Glucerna Shake 120 ML LIQUID PO ×4 (05:09→20:22)
[2019-04-09] MEDS: Nystatin Powder 15gm Bottle 1 APPLIC TOPICAL ×2 (05:10→20:22)
[2019-04-09] MEDS: Paroxetine 20 MG Tablet 40 MG PO (05:10)
[2019-04-09 05:11] VITALS: BP 119/59; PULSE 70
[2019-04-09] MEDS: LINAGLIPTIN 5 MG TABLET PO (05:11)
[2019-04-09] MEDS: Pantoprazole Sodium 40 MG Tablet PO (05:11)
[2019-04-09] MEDS: Levothyroxine 112 MCG Tablet PO (05:11)
[2019-04-09] MEDS: Losartan Potassium 100 MG Tablet PO ×2 (05:11→17:38)
[2019-04-09] MEDS: Metoprolol(XL)Succ 25 MG Tablet 12.5 MG PO ×2 (05:11→17:37)
[2019-04-09] MEDS: Empagliflozin 25 MG Tablet PO (05:12)
[2019-04-09] MEDS: Metolazone 2.5 MG Tablet PO (05:12)
[2019-04-09] MEDS: Polyethylene Glycol 3350 17 GM PACKET PO (05:12)
[2019-04-09] MEDS: Enoxaparin 40 MG/0.4 ML Syringe SC (05:15)
[2019-04-09] MEDS: Menthol/Lanolin/Calamine/Znox 113 GM Tube 1 APPLIC TOPICAL ×2 (05:21→20:21)
[2019-04-09] MEDS: Furosemide 40 MG Tablet PO ×2 (06:39→12:48)
[2019-04-09 07:01] LABS: Bedside Glucose 218 mg/dL (70-110)
[2019-04-09] MEDS: Allopurinol 100 MG Tablet PO (07:47)
[2019-04-09] MEDS: Gabapentin 100 MG Capsule PO (07:48)
[2019-04-09] MEDS: Insulin Lispro 100 UNIT/ML INSULN.PEN 13 UNIT SC ×2 (07:48→11:36)
[2019-04-09 11:35] LABS: Bedside Glucose 331 mg/dL (70-110)
[2019-04-09 15:20] VITALS: BP 141/53; PULSE 58; RESP 16; TEMP 37; O2SAT 95
[2019-04-09] MEDS: Acetaminophen 500 MG Tablet 1000 MG PO (16:14)
[2019-04-09 16:56] LABS: Bedside Glucose 224 mg/dL (70-110)
[2019-04-09] MEDS: 0.9% NaCl PICC Flush IV ×2 (17:34→20:28)
[2019-04-09 17:37] VITALS: BP 141/53; PULSE 58
[2019-04-09] MEDS: Insulin Lispro 100 UNIT/ML INSULN.PEN 20 UNIT SC (17:40)
[2019-04-09] MEDS: Doxepin Hcl 25 MG Capsule PO (20:26)
[2019-04-09 21:11] LABS: Bedside Glucose 193 mg/dL (70-110)
[2019-04-10] MEDS: Glucerna Shake 120 ML LIQUID PO ×4 (05:22→20:06)
[2019-04-10] MEDS: Menthol/Lanolin/Calamine/Znox 113 GM Tube 1 APPLIC TOPICAL ×2 (05:22→20:06)
[2019-04-10] MEDS: Polyethylene Glycol 3350 17 GM PACKET PO (05:23)
[2019-04-10] MEDS: Levothyroxine 112 MCG Tablet PO (05:25)
[2019-04-10] MEDS: Metolazone 2.5 MG Tablet PO (05:25)
[2019-04-10] MEDS: Losartan Potassium 100 MG Tablet PO ×2 (05:25→17:47)
[2019-04-10] MEDS: Paroxetine 20 MG Tablet 40 MG PO (05:25)
[2019-04-10] MEDS: LINAGLIPTIN 5 MG TABLET PO (05:25)
[2019-04-10] MEDS: Nystatin Powder 15gm Bottle 1 APPLIC TOPICAL ×2 (05:26→20:07)
[2019-04-10] MEDS: Empagliflozin 25 MG Tablet PO (05:26)
[2019-04-10 05:27] VITALS: BP 115/56; PULSE 69
[2019-04-10] MEDS: Pantoprazole Sodium 40 MG Tablet PO (05:27)
[2019-04-10] MEDS: Metoprolol(XL)Succ 25 MG Tablet 12.5 MG PO ×2 (05:27→17:47)
[2019-04-10] MEDS: Enoxaparin 40 MG/0.4 ML Syringe SC (05:29)
[2019-04-10] MEDS: Furosemide 40 MG Tablet PO ×2 (06:35→13:50)
[2019-04-10 06:46] LABS: Bedside Glucose 178 mg/dL (70-110)
[2019-04-10] MEDS: Allopurinol 100 MG Tablet PO (08:20)
--- NOTE | 2019-04-10 08:38 | NURSING ---
BS 178 before breakfast. Pt ate a few bites of cereal. Hold scheduled Humalog [address] Wheeler. Sher YEE aware.
[2019-04-10 09:14] LABS: Pathologist Review Reviewed
[2019-04-10 11:11] LABS: Bedside Glucose 243 mg/dL (70-110)
[2019-04-10] MEDS: Insulin Lispro 100 UNIT/ML INSULN.PEN 10 UNIT SC ×2 (12:21→17:47)
[2019-04-10 15:52] VITALS: BP 117/65; PULSE 66; RESP 18; TEMP 37.3; O2SAT 97
[2019-04-10] MEDS: 0.9% NaCl PICC Flush IV ×2 (17:04→22:11)
[2019-04-10 17:31] LABS: Bedside Glucose 255 mg/dL (70-110)
[2019-04-10 17:47] VITALS: BP 117/65; PULSE 66
--- NOTE | 2019-04-10 18:46 | NURSING ---
Addendum entered by Maryjo Cloud 04/10/19 19:14: Correction: Pt noted to have moisture related area to left buttock. Sher RN made aware and assessed the area. Apply Calmoseptine per Sher RN. Original Note: Pt noted to have moisture related area to right buttock. Sher RN made aware and assessed the area. Apply Calmoseptine per Sher RN.
[2019-04-10] MEDS: Doxepin Hcl 25 MG Capsule PO (20:07)
[2019-04-10 21:16] LABS: Bedside Glucose 255 mg/dL (70-110)
[2019-04-11] MEDS: Metolazone 2.5 MG Tablet PO (04:47)
[2019-04-11] MEDS: Menthol/Lanolin/Calamine/Znox 113 GM Tube 1 APPLIC TOPICAL ×2 (05:32→20:34)
[2019-04-11] MEDS: Paroxetine 20 MG Tablet 40 MG PO (05:33)
[2019-04-11] MEDS: Empagliflozin 25 MG Tablet PO (05:33)
[2019-04-11] MEDS: Levothyroxine 112 MCG Tablet PO (05:33)
[2019-04-11] MEDS: Losartan Potassium 100 MG Tablet PO ×2 (05:33→17:16)
[2019-04-11] MEDS: Glucerna Shake 120 ML LIQUID PO ×4 (05:34→20:34)
[2019-04-11] MEDS: Furosemide 40 MG Tablet PO ×2 (05:34→13:14)
[2019-04-11] MEDS: Nystatin Powder 15gm Bottle 1 APPLIC TOPICAL ×2 (05:34→20:35)
[2019-04-11] MEDS: Enoxaparin 40 MG/0.4 ML Syringe SC (05:34)
[2019-04-11 05:35] VITALS: BP 124/68; PULSE 72
[2019-04-11] MEDS: Pantoprazole Sodium 40 MG Tablet PO (05:35)
[2019-04-11] MEDS: Metoprolol(XL)Succ 25 MG Tablet 12.5 MG PO ×2 (05:35→17:17)
[2019-04-11] MEDS: LINAGLIPTIN 5 MG TABLET PO (05:36)
[2019-04-11 06:26] LABS: Bedside Glucose 195 mg/dL (70-110)
[2019-04-11] MEDS: Insulin Lispro 100 UNIT/ML INSULN.PEN 10 UNIT SC ×2 (06:33→11:32)
--- NOTE | 2019-04-11 07:23 | MDS.RN ---
Addendum entered by Nkechi Navarro 04/11/19 07:42: Resident was a total assist for transfers with [employer] Lift during lookback period Original Note: Information for the mds was obtained from review of the clinical record, interview of resident, staff, and direct observation of resident's care.
[2019-04-11] MEDS: Allopurinol 100 MG Tablet PO (08:12)
[2019-04-11] MEDS: DULAGLUTIDE 1.5 MG/0.5 ML PEN.INJCTR SQ (09:03)
[2019-04-11 09:15] VITALS: PULSE 73; RESP 18; O2SAT 96
--- NOTE | 2019-04-11 10:09 | NURSING ---
NEW MEPILEX APPLIED TO PT LEFT BOTTOM.
[2019-04-11 10:51] LABS: Bedside Glucose 343 mg/dL (70-110)
--- NOTE | 2019-04-11 13:13 | CASEMGMT ---
BIMS and PHQ9 interviews completed for MDS on this date. ANIL Devries
[2019-04-11 16:00] VITALS: BP 124/56; PULSE 75; RESP 18; TEMP 37; O2SAT 96
[2019-04-11 16:40] LABS: Bedside Glucose 240 mg/dL (70-110)
[2019-04-11] MEDS: Insulin Lispro 100 UNIT/ML INSULN.PEN 13 UNIT SC (17:15)
[2019-04-11 17:17] VITALS: BP 124/56; PULSE 75
[2019-04-11] MEDS: 0.9% NaCl PICC Flush IV ×2 (17:22→22:46)
[2019-04-11] MEDS: Doxepin Hcl 25 MG Capsule PO (20:38)
[2019-04-11] MEDS: Acetaminophen 500 MG Tablet 1000 MG PO (20:48)
[2019-04-11 22:11] LABS: Bedside Glucose 213 mg/dL (70-110)
[2019-04-12] MEDS: Nystatin Powder 15gm Bottle 1 APPLIC TOPICAL ×2 (04:19→21:23)
[2019-04-12] MEDS: Polyethylene Glycol 3350 17 GM PACKET PO (04:20)
[2019-04-12] MEDS: Metolazone 2.5 MG Tablet PO (04:20)
[2019-04-12] MEDS: Glucerna Shake 120 ML LIQUID PO ×4 (05:48→21:21)
[2019-04-12] MEDS: Paroxetine 20 MG Tablet 40 MG PO (05:49)
[2019-04-12] MEDS: Enoxaparin 40 MG/0.4 ML Syringe SC (05:49)
[2019-04-12] MEDS: Empagliflozin 25 MG Tablet PO (05:49)
[2019-04-12 05:50] VITALS: BP 110/68; PULSE 76
[2019-04-12] MEDS: Levothyroxine 112 MCG Tablet PO (05:50)
[2019-04-12] MEDS: Metoprolol(XL)Succ 25 MG Tablet 12.5 MG PO ×2 (05:50→17:26)
[2019-04-12] MEDS: Losartan Potassium 100 MG Tablet PO ×2 (05:50→17:25)
[2019-04-12] MEDS: Furosemide 40 MG Tablet PO ×2 (05:51→13:24)
[2019-04-12] MEDS: LINAGLIPTIN 5 MG TABLET PO (05:51)
[2019-04-12] MEDS: Menthol/Lanolin/Calamine/Znox 113 GM Tube 1 APPLIC TOPICAL ×2 (05:54→21:22)
[2019-04-12] MEDS: Pantoprazole Sodium 40 MG Tablet PO (05:55)
[2019-04-12 06:45] LABS: Bedside Glucose 203 mg/dL (70-110)
[2019-04-12 07:00] VITALS: PULSE 76; RESP 18; O2SAT 95
[2019-04-12] MEDS: Allopurinol 100 MG Tablet PO (08:13)
[2019-04-12] MEDS: Insulin Lispro 100 UNIT/ML INSULN.PEN 13 UNIT SC ×3 (08:14→17:24)
[2019-04-12 10:46] LABS: Bedside Glucose 279 mg/dL (70-110)
[2019-04-12 15:35] VITALS: BP 134/66; PULSE 68; RESP 18; TEMP 36.8; O2SAT 94
[2019-04-12 17:00] LABS: Bedside Glucose 185 mg/dL (70-110)
[2019-04-12] MEDS: 0.9% NaCl PICC Flush IV ×2 (17:22→23:27)
[2019-04-12] MEDS: 0.9% NaCl IVPB Med Flush (250 mL) 15 ML IV (17:23)
[2019-04-12 17:26] VITALS: BP 134/66; PULSE 68
[2019-04-12] MEDS: Doxepin Hcl 25 MG Capsule PO (21:25)
[2019-04-12 21:40] LABS: Bedside Glucose 225 mg/dL (70-110)
[2019-04-13] MEDS: Glucerna Shake 120 ML LIQUID PO ×4 (04:18→20:03)
[2019-04-13] MEDS: Metolazone 2.5 MG Tablet PO (04:18)
[2019-04-13 05:18] VITALS: BP 130/60; PULSE 76
[2019-04-13] MEDS: Metoprolol(XL)Succ 25 MG Tablet 12.5 MG PO ×2 (05:18→17:31)
[2019-04-13] MEDS: Levothyroxine 112 MCG Tablet PO (05:18)
[2019-04-13] MEDS: Polyethylene Glycol 3350 17 GM PACKET PO (05:19)
[2019-04-13] MEDS: Pantoprazole Sodium 40 MG Tablet PO (05:20)
[2019-04-13] MEDS: Enoxaparin 40 MG/0.4 ML Syringe SC (05:20)
[2019-04-13] MEDS: Paroxetine 20 MG Tablet 40 MG PO (05:20)
[2019-04-13] MEDS: Losartan Potassium 100 MG Tablet PO ×2 (05:20→17:32)
[2019-04-13] MEDS: LINAGLIPTIN 5 MG TABLET PO (05:20)
[2019-04-13] MEDS: Nystatin Powder 15gm Bottle 1 APPLIC TOPICAL ×2 (05:21→20:03)
[2019-04-13] MEDS: Menthol/Lanolin/Calamine/Znox 113 GM Tube 1 APPLIC TOPICAL ×2 (05:21→20:02)
[2019-04-13] MEDS: Empagliflozin 25 MG Tablet PO (05:21)
[2019-04-13] MEDS: Furosemide 40 MG Tablet PO ×2 (05:24→13:23)
[2019-04-13 06:56] LABS: Bedside Glucose 220 mg/dL (70-110)
[2019-04-13 07:00] VITALS: PULSE 76; RESP 15; O2SAT 94
[2019-04-13] MEDS: Insulin Lispro 100 UNIT/ML INSULN.PEN 13 UNIT SC ×3 (07:53→17:22)
[2019-04-13] MEDS: Allopurinol 100 MG Tablet PO (07:56)
[2019-04-13 10:51] LABS: Bedside Glucose 212 mg/dL (70-110)
[2019-04-13 15:30] VITALS: BP 104/55; PULSE 71; RESP 18; TEMP 36.7; O2SAT 95
[2019-04-13 17:00] LABS: Bedside Glucose 247 mg/dL (70-110)
[2019-04-13] MEDS: Acetaminophen 500 MG Tablet 1000 MG PO (17:21)
[2019-04-13 17:31] VITALS: PULSE 71
[2019-04-13] MEDS: Doxepin Hcl 25 MG Capsule PO (20:04)
[2019-04-13 21:11] LABS: Bedside Glucose 210 mg/dL (70-110)
[2019-04-14] MEDS: Metolazone 2.5 MG Tablet PO (05:06)
[2019-04-14] MEDS: Menthol/Lanolin/Calamine/Znox 113 GM Tube 1 APPLIC TOPICAL ×2 (05:44→20:37)
[2019-04-14] MEDS: Acetaminophen 500 MG Tablet 1000 MG PO ×2 (05:44→16:24)
[2019-04-14] MEDS: LINAGLIPTIN 5 MG TABLET PO (05:45)
[2019-04-14 05:47] VITALS: PULSE 70
[2019-04-14] MEDS: Metoprolol(XL)Succ 25 MG Tablet 12.5 MG PO ×2 (05:47→16:25)
[2019-04-14] MEDS: Pantoprazole Sodium 40 MG Tablet PO (05:47)
[2019-04-14] MEDS: Losartan Potassium 100 MG Tablet PO ×2 (05:48→16:25)
[2019-04-14] MEDS: Paroxetine 20 MG Tablet 40 MG PO (05:48)
[2019-04-14] MEDS: Empagliflozin 25 MG Tablet PO (05:48)
[2019-04-14] MEDS: Furosemide 40 MG Tablet PO ×2 (05:48→13:24)
[2019-04-14] MEDS: Nystatin Powder 15gm Bottle 1 APPLIC TOPICAL ×2 (05:48→20:39)
[2019-04-14] MEDS: Glucerna Shake 120 ML LIQUID PO ×4 (05:49→20:37)
[2019-04-14] MEDS: Levothyroxine 112 MCG Tablet PO (05:49)
[2019-04-14] MEDS: Enoxaparin 40 MG/0.4 ML Syringe SC (05:49)
[2019-04-14] MEDS: Polyethylene Glycol 3350 17 GM PACKET PO (05:49)
[2019-04-14 06:36] LABS: Bedside Glucose 190 mg/dL (70-110)
[2019-04-14] MEDS: Insulin Lispro 100 UNIT/ML INSULN.PEN 17 UNIT SC ×3 (06:58→17:37)
--- NOTE | 2019-04-14 07:09 | NURSING ---
Wound vac changed 04-14-19
[2019-04-14] MEDS: Allopurinol 100 MG Tablet PO (08:24)
--- NOTE | 2019-04-14 10:38 | NURSING ---
Addendum entered by Melinda Ontiveros 04/15/19 08:13: New order for hydrocortisone cream to back PRN for pruritic rash. Original Note: RED RAISED RASH TO PT LOWER BACK. PT STATED ITS ITCHY AND HURTS. REPORTED TO JOSELITO SPRING
[2019-04-14 11:00] LABS: Bedside Glucose 267 mg/dL (70-110)
[2019-04-14 13:52] VITALS: PULSE 69; RESP 18; O2SAT 93
[2019-04-14 16:00] VITALS: BP 154/70; PULSE 67; RESP 18; TEMP 36.5; O2SAT 96
[2019-04-14 16:25] VITALS: PULSE 69
[2019-04-14 17:01] LABS: Bedside Glucose 270 mg/dL (70-110)
[2019-04-14] MEDS: Doxepin Hcl 25 MG Capsule PO (20:39)
[2019-04-14 21:06] LABS: Bedside Glucose 241 mg/dL (70-110)
[2019-04-14] MEDS: 0.9% NaCl PICC Flush IV (21:54)
[2019-04-15] MEDS: Metolazone 2.5 MG Tablet PO (04:07)
[2019-04-15] MEDS: Polyethylene Glycol 3350 17 GM PACKET PO ×2 (04:07→04:09)
[2019-04-15] MEDS: Menthol/Lanolin/Calamine/Znox 113 GM Tube 1 APPLIC TOPICAL ×2 (04:11→20:31)
[2019-04-15] MEDS: Nystatin Powder 15gm Bottle 1 APPLIC TOPICAL ×2 (04:12→20:31)
[2019-04-15] MEDS: Glucerna Shake 120 ML LIQUID PO ×3 (05:11→20:30)
[2019-04-15] MEDS: Pantoprazole Sodium 40 MG Tablet PO (05:13)
[2019-04-15] MEDS: Paroxetine 20 MG Tablet 40 MG PO (05:13)
[2019-04-15] MEDS: LINAGLIPTIN 5 MG TABLET PO (05:13)
[2019-04-15] MEDS: Levothyroxine 112 MCG Tablet PO (05:13)
[2019-04-15 05:14] VITALS: BP 121/61; PULSE 78
[2019-04-15] MEDS: Furosemide 40 MG Tablet PO ×2 (05:14→13:34)
[2019-04-15] MEDS: Losartan Potassium 100 MG Tablet PO ×3 (05:14→18:24)
[2019-04-15] MEDS: Metoprolol(XL)Succ 25 MG Tablet 12.5 MG PO ×2 (05:14→18:24)
[2019-04-15] MEDS: Empagliflozin 25 MG Tablet PO (05:14)
[2019-04-15] MEDS: Enoxaparin 40 MG/0.4 ML Syringe SC (05:15)
[2019-04-15 06:50] LABS: Bedside Glucose 217 mg/dL (70-110)
[2019-04-15 07:00] VITALS: PULSE 78; RESP 18; O2SAT 94
[2019-04-15] MEDS: Allopurinol 100 MG Tablet PO (08:19)
[2019-04-15] MEDS: Insulin Lispro 100 UNIT/ML INSULN.PEN 17 UNIT SC ×2 (08:20→11:41)
--- NOTE | 2019-04-15 09:42 | CASEMGMT ---
Insurance: Continued stay approved to 04/15/19. Next clinical update due 04/15/19. Auth # [id number].
[2019-04-15 11:01] LABS: Bedside Glucose 284 mg/dL (70-110)
[2019-04-15] MEDS: Hydrocortisone 2.5% Crm 1 APPLIC TOPICAL (11:21)
--- NOTE | 2019-04-15 14:34 | CASEMGMT ---
Social work: Clinical updates faxed to [facility] for continued stay review. Auth # [id number].
[2019-04-15 15:13] VITALS: BP 101/40; PULSE 71; RESP 18; TEMP 36.6; O2SAT 96
[2019-04-15 16:20] LABS: Bedside Glucose 196 mg/dL (70-110)
[2019-04-15 17:00] VITALS: BP 118/66; PULSE 70
--- NOTE | 2019-04-15 17:57 | NURSING ---
Redness and crusting to PICC line insertion site, Dr. Wheeler notified, D/C PICC after last dose of antibiotic tomorrow.
[2019-04-15] MEDS: 0.9% NaCl PICC Flush IV ×2 (18:00→22:03)
--- NOTE | 2019-04-15 18:18 | NURSING ---
Addendum entered by Kath Loja 04/15/19 22:06: Upon PICC assessment blood return noted without difficulty. Cathflo held. Will continue to monitor and asses. Original Note: Patient with no blood return to PICC line, Dr. Wheeler notified, New order for cathflo x1, may repeat once if first dose ineffective.
[2019-04-15 18:24] VITALS: BP 118/66; PULSE 70
--- NOTE | 2019-04-15 19:40 | NURSING ---
Pt BS 196 prior to dinner. Pt consumed milk on tray and refused to eat dinner meal. Hold scheduled 17 units of Humalog per Dr. Wheeler. Melinda YEE aware.
[2019-04-15] MEDS: Doxepin Hcl 25 MG Capsule PO (20:34)
[2019-04-15 21:10] LABS: Bedside Glucose 229 mg/dL (70-110)
[2019-04-16] MEDS: Metolazone 2.5 MG Tablet PO (04:03)
[2019-04-16] MEDS: Menthol/Lanolin/Calamine/Znox 113 GM Tube 1 APPLIC TOPICAL ×2 (04:03→21:22)
[2019-04-16] MEDS: Nystatin Powder 15gm Bottle 1 APPLIC TOPICAL ×2 (04:11→21:27)
[2019-04-16] MEDS: Glucerna Shake 120 ML LIQUID PO ×4 (05:02→21:22)
[2019-04-16 05:04] VITALS: BP 131/56; PULSE 66
[2019-04-16] MEDS: Paroxetine 20 MG Tablet 40 MG PO (05:04)
[2019-04-16] MEDS: Metoprolol(XL)Succ 25 MG Tablet 12.5 MG PO ×2 (05:04→18:09)
[2019-04-16] MEDS: LINAGLIPTIN 5 MG TABLET PO (05:04)
[2019-04-16] MEDS: Pantoprazole Sodium 40 MG Tablet PO (05:06)
[2019-04-16] MEDS: Levothyroxine 112 MCG Tablet PO (05:06)
[2019-04-16] MEDS: Furosemide 40 MG Tablet PO ×2 (05:06→13:23)
[2019-04-16] MEDS: Empagliflozin 25 MG Tablet PO (05:07)
[2019-04-16 05:08] LABS: Absolute Lymphocyte Count 2.88 X10^3/ul (0.83-4.51); Absolute Neutrophil Count 6.1 X10^3/uL (2.0-7.7); Basophil# 0.04 X10^3/uL; Basophil% 0.4 % (0-1); Eosinophil# 0.39 X10^3/uL; Eosinophils% 3.8 % (0-5); Erythrocyte Sedimentation Rate 90 mm/hr (0-20); Hematocrit 36.6 % (40-54); Lymphocyte # 2.88 X10^3/ul (4.0); Lymphocyte % 27.7 % (19-41); Mean Corp Hgb Conc 32.8 g/gl (32-36); Mean Corpuscular Hgb 27.8 pg (27.0-32.0); Mean Corpuscular Volume 84.9 fL (80-94); Mean Platelet Vol. 9.8 fl (6.2-12.0); Monocyte% 9.6 % (0-10); Neutrophil # 6.07 X10^3/uL (2.7-7.7); Neutrophil % 58.4 % (47-70); Platelet Count 509 K/mm3 (150-450); RBC Distribution Width CV 14.4 % (11.6-14.6); RBC Distribution Width SD 43.7 fl (35.1-43.9); Red Blood Count 4.31 M/mm3 (4.6-6.2); White Blood Count 10.4 K/mm3 (4.4-11.0)
[2019-04-16 05:09] LABS: POSITIVE COUNT NO; POSITIVE DIFFERENTIAL NO; POSITIVE MORPHOLOGY NO
[2019-04-16] MEDS: Enoxaparin 40 MG/0.4 ML Syringe SC (05:12)
[2019-04-16 05:16] LABS: AST(SGOT) 9 U/L (15-37); Alanine Aminotransfer ALT/SGPT 11 U/L (16-61); Albumin, Serum 2.7 g/dL (3.2-5.0); Alkaline Phosphatase 126 U/L (45-117); Anion Gap 11 (5-15); BUN 76 mg/dL (7-18); BUN/Creat Ratio 58.5 RATIO (10-20); Calcium,Total 9.6 mg/dL (8.5-10.1); Chloride 95 mmol/L (98-107); EST Glomerular Filtration Rate 57 mL/min (>60); Est Glom Filt Rate - Afr Amer 69 mL/min (>60); Estimated Creatinine Clearance 47.32 ml/min; Globulin 5.1 g/dL (2.2-4.2); Glucose 195 mg/dL (74-106); Potassium 3.2 mmol/L (3.5-5.1); Protein, Total 7.8 g/dL (6.4-8.2); Sodium Level 137 mmol/L (136-145)
[2019-04-16] MEDS: Losartan Potassium 100 MG Tablet PO ×2 (05:22→18:08)
[2019-04-16 06:36] LABS: Bedside Glucose 220 mg/dL (70-110)
[2019-04-16] MEDS: Insulin Lispro 100 UNIT/ML INSULN.PEN 17 UNIT SC ×2 (08:36→11:46)
[2019-04-16] MEDS: Allopurinol 100 MG Tablet PO (08:38)
[2019-04-16 11:25] LABS: Bedside Glucose 203 mg/dL (70-110)
[2019-04-16] MEDS: Doxycycline 100 MG CAPSULE PO ×2 (13:23→21:29)
[2019-04-16 15:11] VITALS: BP 111/63; PULSE 71; RESP 18; TEMP 36.9; O2SAT 96
--- NOTE | 2019-04-16 15:25 | NURSING ---
wound photo: right lateral lower leg
--- NOTE | 2019-04-16 15:34 | CHAPLAIN ---
Type of Pastoral Visit ___ Initial Visit _x__ Follow-up Visit ___ On-call Visit ___ General Patient Visit ___ Spiritual Assessment ___ Family Conference ___ Bereavement ___ Rapid Response ___ Code Blue ___ Other (describe below) Pastoral Care Referral From _x__ Patient ___ Family ___ Nurse ___ Physician ___ Irrigation District Manager ___ Mortgage Loan Officer ___ Other (describe below) Sacrament/Intervention _x__ Active listening ___ Anointing ___ Presybeterian ___ Bereavement ___ Communion ___ Scarlett exploration ___ ___ Life review _x__ Prayer ___ Reconciliation ___ Sacrament of Sick ___ Supportive presence ___ Wedding ___ Other (describe below) Pastoral Comments patient requested visit from security chief museum; pt says that he is discouraged about a long stay in the hospital, the absence of progress, and inability to enjoy food
--- NOTE | 2019-04-16 16:33 | NURSING ---
Picc line removed from GLORY per order, drsg applied per protocol.
[2019-04-16 16:55] LABS: Bedside Glucose 184 mg/dL (70-110)
[2019-04-16 18:09] VITALS: BP 111/63; PULSE 71
[2019-04-16 21:01] LABS: Bedside Glucose 267 mg/dL (70-110)
[2019-04-16] MEDS: Doxepin Hcl 25 MG Capsule PO (21:26)
[2019-04-16 21:30] VITALS: PULSE 88; RESP 20; O2SAT 96
[2019-04-17] MEDS: Metolazone 2.5 MG Tablet PO (04:14)
[2019-04-17] MEDS: Polyethylene Glycol 3350 17 GM PACKET PO (04:15)
[2019-04-17] MEDS: Menthol/Lanolin/Calamine/Znox 113 GM Tube 1 APPLIC TOPICAL ×2 (04:15→22:15)
[2019-04-17] MEDS: Glucerna Shake 120 ML LIQUID PO ×4 (05:07→22:16)
[2019-04-17 05:08] VITALS: BP 107/63; PULSE 74
[2019-04-17] MEDS: Metoprolol(XL)Succ 25 MG Tablet 12.5 MG PO ×2 (05:08→18:28)
[2019-04-17] MEDS: Losartan Potassium 100 MG Tablet PO ×2 (05:09→18:27)
[2019-04-17] MEDS: Levothyroxine 112 MCG Tablet PO (05:09)
[2019-04-17] MEDS: Empagliflozin 25 MG Tablet PO (05:09)
[2019-04-17] MEDS: Doxycycline 100 MG CAPSULE PO ×2 (05:09→18:27)
[2019-04-17] MEDS: Paroxetine 20 MG Tablet 40 MG PO (05:09)
[2019-04-17] MEDS: Furosemide 40 MG Tablet PO ×2 (05:09→14:06)
[2019-04-17] MEDS: LINAGLIPTIN 5 MG TABLET PO (05:09)
[2019-04-17] MEDS: Nystatin Powder 15gm Bottle 1 APPLIC TOPICAL ×2 (05:10→22:18)
[2019-04-17] MEDS: Enoxaparin 40 MG/0.4 ML Syringe SC (05:10)
[2019-04-17] MEDS: Pantoprazole Sodium 40 MG Tablet PO (05:11)
[2019-04-17 06:22] LABS: Anion Gap 9 (5-15); BUN 81 mg/dL (7-18); Calcium,Total 9.5 mg/dL (8.5-10.1); Chloride 96 mmol/L (98-107); Creatinine, Serum 1.42 mg/dL (0.70-1.30); EST Glomerular Filtration Rate 52 mL/min (>60); Est Glom Filt Rate - Afr Amer 63 mL/min (>60); Estimated Creatinine Clearance 43.32 ml/min; Glucose 218 mg/dL (74-106); Potassium 3.4 mmol/L (3.5-5.1); Sodium Level 136 mmol/L (136-145)
[2019-04-17 06:50] LABS: Bedside Glucose 235 mg/dL (70-110)
[2019-04-17 07:00] VITALS: PULSE 80; RESP 20; O2SAT 97
[2019-04-17] MEDS: Insulin Lispro 100 UNIT/ML INSULN.PEN 13 UNIT SC ×3 (08:31→18:24)
[2019-04-17] MEDS: Allopurinol 100 MG Tablet PO (08:32)
[2019-04-17 11:11] LABS: Bedside Glucose 337 mg/dL (70-110)
--- NOTE | 2019-04-17 13:54 | NURSING ---
the trac pad had been moved last evening and there is a hissing sound noted. no leak noted on machine though. placed a new trac pad. no further hissing noted. good seal at 150mmHg low continuous suction. the wound VAC dressing will be changed in the am. applied new DONTAE wrap. pt tolerated well.
[2019-04-17 16:00] VITALS: BP 118/51; PULSE 86; RESP 16; TEMP 36.6; O2SAT 95
--- NOTE | 2019-04-17 16:13 | CASEMGMT ---
Social Work SW met with pt and . Discussed d/c plan with them. Pt stating that her nephews came to pt home yesterday and built a more secure ramp for pt to get into the home with. Pt stating that she plans to take pt home at time of d/c and when asked if she can provide care for pt she states it will have to be ok. Pt stating pt will need an electric hospital bed and a bradford lift. Continued stay is pending with insurance and pt and are aware of this. SW will continue to follow. ANIL Devries
--- NOTE | 2019-04-17 16:28 | PN.ID_ITS ---
Subjective: Feeling well, no fever, no n/v/d, leg improving. - Physical Exam General: Alert, Cooperative, No apparent distress Lungs: Clear to auscultation, Normal air movement Cardiovascular: Regular rate, Regular Rhythm Abdomen: Soft, Non Tender, Non-Distended Skin: No rashes, Ulcer/ Wound - wound vac on RLE Vital Signs Temp Pulse Resp BP Pulse Ox 98 F 86 16 118/51 L 95 04/17/19 16:00 04/17/19 16:00 04/17/19 16:00 04/17/19 16:00 04/17/19 16:00 Oxygen Delivery Method Room Air Weight: 109.316 kg Body Mass Index (BMI) 43.2 Finger Stick Blood Glucose 89 Intake and Output for Last 24 Hours 04/15/19 04/16/19 04/17/19 23:59 23:59 23:59 Intake Total 1080 / 1080 1320 / 1320 1080 / 1080 Output Total 225 / 225 Balance 1080 / 1080 1320 / 1320 855 / 855 Laboratory Tests Past 24 Hrs 04/17/19 05:17 Sodium 136 Potassium 3.4 L Chloride 96 L Carbon Dioxide 31.0 Anion Gap 9 BUN 81 H Creatinine 1.42 H Estim Creat Clear Calc 43.32 Est GFR (MDRD) Af Amer 63 Est GFR (MDRD) Non-Af 52 L BUN/Creatinine Ratio 57.0 H Glucose 218 H Calcium 9.5 POC Glucose 04/17/19 04/17/19 04/16/19 11:03 06:23 20:56 POC Glucose 337 H 235 H 267 H 04/16/19 16:43 POC Glucose 184 H Medical Necessity - Tobacco Use Smoking Status: Former smoker Tobacco Use: Non-smoker Route of nutrition/ use of supplements: [] Nutritional Intake: [] IV Site: [] Carney Catheter: [] - Assessment/Plan Antibiotics: [] Assessment/Plan: [] 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 Now s/p OR 03/[address] Fernando. Clinically stable, no fever, no wbc. No sign of endocarditis or metastatic infection on exam. Infection in wound extended down to hardware which was exposed. Added rifampin for biofilm penetration. Bcx neg since 03/04. Plan will be for 6 weeks of iv abx and then long term po abx. Stop date for iv abx will be 04/16/19. Rash worse after stopping rifampin 03/17. 03/18 changed vanc to ceftaroline. Rash resolved, then developed progressive delirium. Changed ceftaroline to dapto with improvement. Completed dapto 04/16, will have him on po doxycycline 100mg bid indefinitely as long as that hardware remains in place. Will follow as needed, please call with any ?s
[2019-04-17 17:00] LABS: Bedside Glucose 292 mg/dL (70-110)
[2019-04-17 18:28] VITALS: BP 124/62; PULSE 78
[2019-04-17 21:11] LABS: Bedside Glucose 276 mg/dL (70-110)
[2019-04-17] MEDS: Doxepin Hcl 25 MG Capsule PO (22:18)
[2019-04-18] MEDS: Metolazone 2.5 MG Tablet PO (05:10)
[2019-04-18] MEDS: Menthol/Lanolin/Calamine/Znox 113 GM Tube 1 APPLIC TOPICAL ×2 (05:11→21:35)
[2019-04-18 05:59] LABS: Anion Gap 10 (5-15); BUN 78 mg/dL (7-18); BUN/Creat Ratio 62.4 RATIO (10-20); Calcium,Total 9.9 mg/dL (8.5-10.1); Chloride 97 mmol/L (98-107); Creatinine, Serum 1.25 mg/dL (0.70-1.30); EST Glomerular Filtration Rate 60 mL/min (>60); Est Glom Filt Rate - Afr Amer 73 mL/min (>60); Estimated Creatinine Clearance 49.21 ml/min; Glucose 229 mg/dL (74-106); Potassium 3.2 mmol/L (3.5-5.1); Sodium Level 138 mmol/L (136-145)
[2019-04-18] MEDS: Doxycycline 100 MG CAPSULE PO ×2 (06:33→17:47)
[2019-04-18] MEDS: Furosemide 40 MG Tablet PO ×2 (06:33→13:19)
[2019-04-18] MEDS: Glucerna Shake 120 ML LIQUID PO ×4 (06:33→21:35)
[2019-04-18] MEDS: Losartan Potassium 100 MG Tablet PO ×2 (06:33→17:47)
[2019-04-18] MEDS: Enoxaparin 40 MG/0.4 ML Syringe SC (06:33)
[2019-04-18] MEDS: Empagliflozin 25 MG Tablet PO (06:33)
[2019-04-18] MEDS: Pantoprazole Sodium 40 MG Tablet PO (06:34)
[2019-04-18] MEDS: Polyethylene Glycol 3350 17 GM PACKET PO (06:34)
[2019-04-18] MEDS: Levothyroxine 112 MCG Tablet PO (06:34)
[2019-04-18] MEDS: Paroxetine 20 MG Tablet 40 MG PO (06:34)
[2019-04-18 06:35] VITALS: BP 116/59; PULSE 72
[2019-04-18] MEDS: LINAGLIPTIN 5 MG TABLET PO (06:35)
[2019-04-18] MEDS: Metoprolol(XL)Succ 25 MG Tablet 12.5 MG PO ×2 (06:35→17:47)
[2019-04-18] MEDS: Nystatin Powder 15gm Bottle 1 APPLIC TOPICAL ×2 (06:44→21:35)
[2019-04-18 06:51] LABS: Bedside Glucose 223 mg/dL (70-110)
[2019-04-18] MEDS: Insulin Lispro 100 UNIT/ML INSULN.PEN 13 UNIT SC ×2 (08:21→12:33)
--- NOTE | 2019-04-18 08:21 | NURSING ---
New order to D/C Zaroxolyn and check BMP on Sunday04/20/19.
[2019-04-18] MEDS: Allopurinol 100 MG Tablet PO (08:23)
[2019-04-18] MEDS: DULAGLUTIDE 1.5 MG/0.5 ML PEN.INJCTR SQ (10:58)
--- NOTE | 2019-04-18 11:05 | PCM.PN.RX ---
<JoselinNestor tavares D - Last Filed: 04/18/19 11:05> Progress Note - Pharmacy Subjective: TCU Followup Objective: Allergies cocaine Allergy (Verified 09/11/18 13:52) Unknown vancomycin Allergy (Verified 03/20/19 16:27) Rash atorvastatin calcium [From Lipitor] Adverse Reaction (Verified 09/11/18 13:52) Pain in joints haloperidol [From Haldol] Adverse Reaction (Verified 09/11/18 13:52) Other WENT CRAZY morphine Adverse Reaction (Verified 09/11/18 13:52) Other extremely aggitated oxycodone [From OxyIR] Adverse Reaction (Verified 09/11/18 13:52) Pain in joints extremely aggitated prednisone Adverse Reaction (Verified 09/11/18 13:52) ANXIOUS, INSOMNIA STERIODS Adverse Reaction (Uncoded 08/16/18 02:59) Other ANXIETY INSOMNIA Current Medications Generic Name Dose Route Start Last Admin Trade Name Freq PRN Reason Stop Dose Admin Acetaminophen 1,000 mg 03/10/19 20:01 04/14/19 16:24 Tylenol PO 1,000 mg Q6H PRN PRN Administration MILD PAIN (1-3/10) Allopurinol 100 mg 03/11/19 08:00 04/18/19 08:23 Zyloprim PO 100 mg DAILYCM [facility] Administration Bisacodyl 10 mg 03/10/19 20:04 03/21/19 08:35 Dulcolax PO 10 mg DAILY PRN Administration Constipation Calamine/Phenol 1 applic 03/10/19 22:00 04/18/19 05:11 Calmoseptine Ointment TOPICAL 1 applicatio 0600,2200 [facility] Administration Protocol Cholecalciferol 2,000 unit 03/24/19 08:00 04/18/19 08:23 Vitamin D PO 2,000 unit DAILYCM [facility] Administration Doxepin HCl 25 mg 04/03/19 22:00 04/17/19 22:18 Sinequan PO 25 mg QHS CHERYL Administration Doxycycline Monohydrate 100 mg 04/16/19 13:00 04/18/19 06:33 Doxycycline PO 100 mg BID CHERYL Administration Enoxaparin Sodium 40 mg 03/11/19 06:00 04/18/19 06:33 Lovenox SC 40 mg DAILY@0600 CHERYL Administration Furosemide 40 mg 03/10/19 22:00 04/18/19 06:33 Lasix PO 40 mg BIDLX CHERYL Administration Heparin Sodium (Beef Lung) 50 units 03/10/19 21:25 04/10/19 22:13 IV 50 units UD PRN Administration HEPARIN FLUSH Hydrocortisone 1 applic 04/15/19 08:10 04/15/19 11:21 Hytone TOPICAL 1 applicatio TID PRN PRN Administration ITCHING Protocol Sodium Chloride 250 mls @ 15 mls/hr 03/10/19 21:25 04/12/19 17:23 IV 15 mls/hr .[id number] PRN Administration SALINE FLUSH Insulin Glargine 20 units 04/17/19 06:00 04/18/19 06:42 Lantus ([facility]) SC 20 u BID CHERYL Administration Insulin Human Lispro 13 unit 04/17/19 06:45 04/18/19 08:21 Humalog Kwikpen ([facility]) SC 13 units TIDAC CHERYL Administration Levothyroxine Sodium 112 mcg 03/11/19 06:00 04/18/19 06:34 Synthroid PO 112 mcg DAILY@0600 CHERYL Administration Linagliptin 5 mg 03/11/19 06:00 04/18/19 06:35 Tradjenta PO 5 mg DAILY CHERYL Administration Losartan Potassium 100 mg 03/10/19 22:00 04/18/19 06:33 Cozaar PO 100 mg BID CHERYL Administration Metoprolol Succinate 12.5 mg 03/10/19 22:00 04/18/19 06:35 Toprol Xl (Beta Romel) PO 12.5 mg BID CHERYL Administration Multi-Ingredient Cream 1 applic 03/11/19 06:00 04/18/19 05:11 Eucerin TOPICAL 1 applicatio 599,2199 [facility] Administration Protocol Nutritional Formula 1 packet 03/11/19 08:00 04/18/19 08:23 Edy - [place] Flavor PO 1 packet BIDCM CHERYL Administration Nutritional Formula (Lactose Free) 120 ml 04/02/19 12:00 04/18/19 06:33 Glucerna Shake PO 120 ml 4X/DAY CHERYL Administration Nystatin 1 applic 03/10/19 22:00 04/18/19 06:44 Mycostatin Powder TOPICAL 1 applicatio 599,2199 [facility] Administration Protocol Pantoprazole Sodium 40 mg 03/28/19 06:00 04/18/19 06:34 Protonix PO 40 mg DAILY CHERYL Administration Paroxetine HCl 40 mg 03/11/19 06:00 04/18/19 06:34 Paxil PO 40 mg DAILY CHERYL Administration Polyethylene Glycol 17 gm 03/11/19 06:00 04/18/19 06:34 Miralax PO 17 gm DAILY CHERYL Administration Potassium Chloride 40 meq 04/17/19 12:45 04/18/19 08:23 K-Dur PO 40 meq TIDCM CHERYL Administration Simvastatin 40 mg 03/10/19 22:00 04/17/19 22:18 Zocor PO 40 mg QHS CHERYL Administration Sodium Chloride 10 - 20 ml 03/10/19 21:25 04/15/19 22:03 IV 20 ml UD PRN Administration PICC FLUSH Problem List (Last Reviewed 01/26/19 @ 17:02 by Bib Judge DO) Hypothyroidism (Chronic) Sleep apnea (Chronic) Body mass index (BMI) 40.0-44.9, adult (Chronic) Vital Signs Temp Pulse Resp BP Pulse Ox 98 F 72 16 116/59 L 95 04/17/19 16:00 04/18/19 06:35 04/17/19 16:00 04/18/19 06:35 04/17/19 16:00 Oxygen Delivery Method Room Air Weight: 109.316 kg Body Mass Index (BMI) 43.2 Finger Stick Blood Glucose 89 Sodium 138 mmol/L (136-145) 04/18/19 05:05 Potassium 3.2 mmol/L (3.5-5.1) L 04/18/19 05:05 Chloride 97 mmol/L (98-107) L 04/18/19 05:05 Carbon Dioxide 31.0 mmol/L (21.0-32.0) 04/18/19 05:05 Anion Gap 10 (5-15) 04/18/19 05:05 BUN 78 mg/dL (7-18) H 04/18/19 05:05 Creatinine 1.25 mg/dL (0.70-1.30) 04/18/19 05:05 Est GFR (MDRD) Af Amer 73 mL/min (>60) 04/18/19 05:05 Est GFR (MDRD) Non-Af 60 mL/min (>60) 04/18/19 05:05 BUN/Creatinine Ratio 62.4 RATIO (10-20) H 04/18/19 05:05 Glucose 229 mg/dL (74-106) H 04/18/19 05:05 Vancomycin Trough 16.8 ug/mL (5.0-15.0) H 03/16/19 04:35 Assessment/Plan: 1) Pain APAP for mild pain. Continue to monitor prn medication use, daily pain scores. 2) ID Doxycycline. Continue to monitor s/s infection. 3) Heart Failure/HLD Furosemide/KCL, losartan, metoprolol, simvastatin. Continue to monitor BP/HR, renal function, electrolytes, lipids. 4) DM2 Dulaglutide, empagliflozin, linagliptin, insulin glargine twice daily, insulin lispro with meals. Continue to monitor BGT, s/s hyper/hypoglycemia. 5) Hypothyroidism Levothyroxine. Continue to monitor s/s hyper/hypothyroidism. 6) DVT PPx Enoxaparin. Continue to monitor s/s bleeding/clot. 7) Gout Allopurinol. Continue to monitor s/s gout. 8) Nutrition D, Edy,. Continue to monitor clinically. 9) Sleep Doxepin at HS. Continue to monitor for insomnia. 10) GI Pantoprazole. Continue to monitor s/s GI distress. Psychotropic Medications: 11) Depression Paroxetine. Continue to monitor s/s depression. Unnecessary Medications: None Bowel Regimen: 12) PEG, prn bisacodyl. Continue to monitor prn medication use, for constipation/diarrhea. Date of Note:: 04/18/19 - Provider Comments Provider responsibility: Provider responsible to enter orders to implement recommendations <Gil Wheeler Chi - Last Filed: 04/18/19 13:56> Progress Note - Pharmacy Subjective: [] Objective: Allergies cocaine Allergy (Verified 09/11/18 13:52) Unknown vancomycin Allergy (Verified 03/20/19 16:27) Rash atorvastatin calcium [From Lipitor] Adverse Reaction (Verified 09/11/18 13:52) Pain in joints haloperidol [From Haldol] Adverse Reaction (Verified 09/11/18 13:52) Other WENT CRAZY morphine Adverse Reaction (Verified 09/11/18 13:52) Other extremely aggitated oxycodone [From OxyIR] Adverse Reaction (Verified 09/11/18 13:52) Pain in joints extremely aggitated prednisone Adverse Reaction (Verified 09/11/18 13:52) ANXIOUS, INSOMNIA STERIODS Adverse Reaction (Uncoded 08/16/18 02:59) Other ANXIETY INSOMNIA Current Medications Generic Name Dose Route Start Last Admin Trade Name Freq PRN Reason Stop Dose Admin Acetaminophen 1,000 mg 03/10/19 20:01 04/14/19 16:24 Tylenol PO 1,000 mg Q6H PRN PRN Administration MILD PAIN (1-3/10) Allopurinol 100 mg 03/11/19 08:00 04/18/19 08:23 Zyloprim PO 100 mg DAILYCM [facility] Administration Bisacodyl 10 mg 03/10/19 20:04 03/21/19 08:35 Dulcolax PO 10 mg DAILY PRN Administration Constipation Calamine/Phenol 1 applic 03/10/19 22:00 04/18/19 05:11 Calmoseptine Ointment TOPICAL 1 applicatio 0600,2200 CHERYL Administration Protocol Cholecalciferol 2,000 unit 03/24/19 08:00 04/18/19 08:23 Vitamin D PO 2,000 unit DAILYCM [facility] Administration Doxepin HCl 25 mg 04/03/19 22:00 04/17/19 22:18 Sinequan PO 25 mg QHS CHERYL Administration Doxycycline Monohydrate 100 mg 04/16/19 13:00 04/18/19 06:33 Doxycycline PO 100 mg BID CHERYL Administration Enoxaparin Sodium 40 mg 03/11/19 06:00 04/18/19 06:33 Lovenox SC 40 mg DAILY@0600 CHERYL Administration Furosemide 40 mg 03/10/19 22:00 04/18/19 13:19 Lasix PO 40 mg BIDLX CHERYL Administration Heparin Sodium (Beef Lung) 50 units 03/10/19 21:25 04/10/19 22:13 IV 50 units UD PRN Administration HEPARIN FLUSH Hydrocortisone 1 applic 04/15/19 08:10 04/15/19 11:21 Hytone TOPICAL 1 applicatio TID PRN PRN Administration ITCHING Protocol Sodium Chloride 250 mls @ 15 mls/hr 03/10/19 21:25 04/12/19 17:23 IV 15 mls/hr .[id number] PRN Administration SALINE FLUSH Insulin Glargine 20 units 04/17/19 06:00 04/18/19 06:42 Lantus ([facility]) SC 20 u BID CHERYL Administration Insulin Human Lispro 13 unit 04/17/19 06:45 04/18/19 12:33 Humalog Kwikpen ([facility]) SC 13 units TIDAC CHERYL Administration Levothyroxine Sodium 112 mcg 03/11/19 06:00 04/18/19 06:34 Synthroid PO 112 mcg DAILY@0600 CHERYL Administration Linagliptin 5 mg 03/11/19 06:00 04/18/19 06:35 Tradjenta PO 5 mg DAILY CHERYL Administration Losartan Potassium 100 mg 03/10/19 22:00 04/18/19 06:33 Cozaar PO 100 mg BID CHERYL Administration Metoprolol Succinate 12.5 mg 03/10/19 22:00 04/18/19 06:35 Toprol Xl (Beta Romel) PO 12.5 mg BID CHERYL Administration Multi-Ingredient Cream 1 applic 03/11/19 06:00 04/18/19 05:11 Eucerin TOPICAL 1 applicatio 06,0 CHERYL Administration Protocol Nutritional Formula 1 packet 03/11/19 08:00 04/18/19 08:23 Edy - [place] Flavor PO 1 packet BIDCM CHERYL Administration Nutritional Formula (Lactose Free) 120 ml 04/02/19 12:00 04/18/19 12:31 Glucerna Shake PO 120 ml 4X/DAY CHERYL Administration Nystatin 1 applic 03/10/19 22:00 04/18/19 06:44 Mycostatin Powder TOPICAL 1 applicatio 0600,2200 CHERYL Administration Protocol Pantoprazole Sodium 40 mg 03/28/19 06:00 04/18/19 06:34 Protonix PO 40 mg DAILY CHERYL Administration Paroxetine HCl 40 mg 03/11/19 06:00 04/18/19 06:34 Paxil PO 40 mg DAILY CHERYL Administration Polyethylene Glycol 17 gm 03/11/19 06:00 04/18/19 06:34 Miralax PO 17 gm DAILY CHERYL Administration Potassium Chloride 40 meq 04/17/19 12:45 04/18/19 12:31 K-Dur PO 40 meq TIDCM CHERYL Administration Simvastatin 40 mg 03/10/19 22:00 04/17/19 22:18 Zocor PO 40 mg QHS CHREYL Administration Sodium Chloride 10 - 20 ml 03/10/19 21:25 04/15/19 22:03 IV 20 ml UD PRN Administration PICC FLUSH Problem List (Last Reviewed 01/26/19 @ 17:02 by Bib Judge DO) Hypothyroidism (Chronic) Sleep apnea (Chronic) Body mass index (BMI) 40.0-44.9, adult (Chronic) Vital Signs Temp Pulse Resp BP Pulse Ox 98 F 72 16 116/59 L 95 04/17/19 16:00 04/18/19 06:35 04/17/19 16:00 04/18/19 06:35 04/17/19 16:00 Oxygen Delivery Method Room Air Weight: 109.316 kg Body Mass Index (BMI) 43.2 Finger Stick Blood Glucose 89 Sodium 138 mmol/L (136-145) 04/18/19 05:05 Potassium 3.2 mmol/L (3.5-5.1) L 04/18/19 05:05 Chloride 97 mmol/L (98-107) L 04/18/19 05:05 Carbon Dioxide 31.0 mmol/L (21.0-32.0) 04/18/19 05:05 Anion Gap 10 (5-15) 04/18/19 05:05 BUN 78 mg/dL (7-18) H 04/18/19 05:05 Creatinine 1.25 mg/dL (0.70-1.30) 04/18/19 05:05 Est GFR (MDRD) Af Amer 73 mL/min (>60) 04/18/19 05:05 Est GFR (MDRD) Non-Af 60 mL/min (>60) 04/18/19 05:05 BUN/Creatinine Ratio 62.4 RATIO (10-20) H 04/18/19 05:05 Glucose 229 mg/dL (74-106) H 04/18/19 05:05 Vancomycin Trough 16.8 ug/mL (5.0-15.0) H 03/16/19 04:35 Assessment/Plan: Psychotropic Medications: Unnecessary Medications: Bowel Regimen: - Provider Comments Provider responsibility: Provider responsible to enter orders to implement recommendations Provider Comments to Recommendations by Pharmacy: Agree
--- NOTE | 2019-04-18 11:08 | PHA.CONS_ITS ---
<JoselinNestor tavares D - Last Filed: 04/18/19 11:05> Progress Note - Pharmacy Subjective: TCU Followup Objective: Allergies cocaine Allergy (Verified 09/11/18 13:52) Unknown vancomycin Allergy (Verified 03/20/19 16:27) Rash atorvastatin calcium [From Lipitor] Adverse Reaction (Verified 09/11/18 13:52) Pain in joints haloperidol [From Haldol] Adverse Reaction (Verified 09/11/18 13:52) Other WENT CRAZY morphine Adverse Reaction (Verified 09/11/18 13:52) Other extremely aggitated oxycodone [From OxyIR] Adverse Reaction (Verified 09/11/18 13:52) Pain in joints extremely aggitated prednisone Adverse Reaction (Verified 09/11/18 13:52) ANXIOUS, INSOMNIA STERIODS Adverse Reaction (Uncoded 08/16/18 02:59) Other ANXIETY INSOMNIA Current Medications Generic Name Dose Route Start Last Admin Trade Name Freq PRN Reason Stop Dose Admin Acetaminophen 1,000 mg 03/10/19 20:01 04/14/19 16:24 Tylenol PO 1,000 mg Q6H PRN PRN Administration MILD PAIN (1-3/10) Allopurinol 100 mg 03/11/19 08:00 04/18/19 08:23 Zyloprim PO 100 mg DAILYCM [facility] Administration Bisacodyl 10 mg 03/10/19 20:04 03/21/19 08:35 Dulcolax PO 10 mg DAILY PRN Administration Constipation Calamine/Phenol 1 applic 03/10/19 22:00 04/18/19 05:11 Calmoseptine Ointment TOPICAL 1 applicatio 0600,2200 [facility] Administration Protocol Cholecalciferol 2,000 unit 03/24/19 08:00 04/18/19 08:23 Vitamin D PO 2,000 unit DAILYCM [facility] Administration Doxepin HCl 25 mg 04/03/19 22:00 04/17/19 22:18 Sinequan PO 25 mg QHS CHERYL Administration Doxycycline Monohydrate 100 mg 04/16/19 13:00 04/18/19 06:33 Doxycycline PO 100 mg BID CHERYL Administration Enoxaparin Sodium 40 mg 03/11/19 06:00 04/18/19 06:33 Lovenox SC 40 mg DAILY@0600 CHERYL Administration Furosemide 40 mg 03/10/19 22:00 04/18/19 06:33 Lasix PO 40 mg BIDLX CHERYL Administration Heparin Sodium (Beef Lung) 50 units 03/10/19 21:25 04/10/19 22:13 IV 50 units UD PRN Administration HEPARIN FLUSH Hydrocortisone 1 applic 04/15/19 08:10 04/15/19 11:21 Hytone TOPICAL 1 applicatio TID PRN PRN Administration ITCHING Protocol Sodium Chloride 250 mls @ 15 mls/hr 03/10/19 21:25 04/12/19 17:23 IV 15 mls/hr .[id number] PRN Administration SALINE FLUSH Insulin Glargine 20 units 04/17/19 06:00 04/18/19 06:42 Lantus ([facility]) SC 20 u BID CHERYL Administration Insulin Human Lispro 13 unit 04/17/19 06:45 04/18/19 08:21 Humalog Kwikpen ([facility]) SC 13 units TIDAC CHERYL Administration Levothyroxine Sodium 112 mcg 03/11/19 06:00 04/18/19 06:34 Synthroid PO 112 mcg DAILY@0600 CHERYL Administration Linagliptin 5 mg 03/11/19 06:00 04/18/19 06:35 Tradjenta PO 5 mg DAILY CHERYL Administration Losartan Potassium 100 mg 03/10/19 22:00 04/18/19 06:33 Cozaar PO 100 mg BID CHERYL Administration Metoprolol Succinate 12.5 mg 03/10/19 22:00 04/18/19 06:35 Toprol Xl (Beta Romel) PO 12.5 mg BID CHERYL Administration Multi-Ingredient Cream 1 applic 03/11/19 06:00 04/18/19 05:11 Eucerin TOPICAL 1 applicatio 599,2199 [facility] Administration Protocol Nutritional Formula 1 packet 03/11/19 08:00 04/18/19 08:23 Edy - [place] Flavor PO 1 packet BIDCM CHERYL Administration Nutritional Formula (Lactose Free) 120 ml 04/02/19 12:00 04/18/19 06:33 Glucerna Shake PO 120 ml 4X/DAY CHERYL Administration Nystatin 1 applic 03/10/19 22:00 04/18/19 06:44 Mycostatin Powder TOPICAL 1 applicatio 599,2199 [facility] Administration Protocol Pantoprazole Sodium 40 mg 03/28/19 06:00 04/18/19 06:34 Protonix PO 40 mg DAILY CHERYL Administration Paroxetine HCl 40 mg 03/11/19 06:00 04/18/19 06:34 Paxil PO 40 mg DAILY CHERYL Administration Polyethylene Glycol 17 gm 03/11/19 06:00 04/18/19 06:34 Miralax PO 17 gm DAILY CHERYL Administration Potassium Chloride 40 meq 04/17/19 12:45 04/18/19 08:23 K-Dur PO 40 meq TIDCM CHERYL Administration Simvastatin 40 mg 03/10/19 22:00 04/17/19 22:18 Zocor PO 40 mg QHS CHERYL Administration Sodium Chloride 10 - 20 ml 03/10/19 21:25 04/15/19 22:03 IV 20 ml UD PRN Administration PICC FLUSH Problem List (Last Reviewed 01/26/19 @ 17:02 by Bib Judge DO) Hypothyroidism (Chronic) Sleep apnea (Chronic) Body mass index (BMI) 40.0-44.9, adult (Chronic) Vital Signs Temp Pulse Resp BP Pulse Ox 98 F 72 16 116/59 L 95 04/17/19 16:00 04/18/19 06:35 04/17/19 16:00 04/18/19 06:35 04/17/19 16:00 Oxygen Delivery Method Room Air Weight: 109.316 kg Body Mass Index (BMI) 43.2 Finger Stick Blood Glucose 89 Sodium 138 mmol/L (136-145) 04/18/19 05:05 Potassium 3.2 mmol/L (3.5-5.1) L 04/18/19 05:05 Chloride 97 mmol/L (98-107) L 04/18/19 05:05 Carbon Dioxide 31.0 mmol/L (21.0-32.0) 04/18/19 05:05 Anion Gap 10 (5-15) 04/18/19 05:05 BUN 78 mg/dL (7-18) H 04/18/19 05:05 Creatinine 1.25 mg/dL (0.70-1.30) 04/18/19 05:05 Est GFR (MDRD) Af Amer 73 mL/min (>60) 04/18/19 05:05 Est GFR (MDRD) Non-Af 60 mL/min (>60) 04/18/19 05:05 BUN/Creatinine Ratio 62.4 RATIO (10-20) H 04/18/19 05:05 Glucose 229 mg/dL (74-106) H 04/18/19 05:05 Vancomycin Trough 16.8 ug/mL (5.0-15.0) H 03/16/19 04:35 Assessment/Plan: 1) Pain APAP for mild pain. Continue to monitor prn medication use, daily pain scores. 2) ID Doxycycline. Continue to monitor s/s infection. 3) Heart Failure/HLD Furosemide/KCL, losartan, metoprolol, simvastatin. Continue to monitor BP/HR, renal function, electrolytes, lipids. 4) DM2 Dulaglutide, empagliflozin, linagliptin, insulin glargine twice daily, insulin lispro with meals. Continue to monitor BGT, s/s hyper/hypoglycemia. 5) Hypothyroidism Levothyroxine. Continue to monitor s/s hyper/hypothyroidism. 6) DVT PPx Enoxaparin. Continue to monitor s/s bleeding/clot. 7) Gout Allopurinol. Continue to monitor s/s gout. 8) Nutrition D, Edy,. Continue to monitor clinically. 9) Sleep Doxepin at HS. Continue to monitor for insomnia. 10) GI Pantoprazole. Continue to monitor s/s GI distress. Psychotropic Medications: 11) Depression Paroxetine. Continue to monitor s/s depression. Unnecessary Medications: None Bowel Regimen: 12) PEG, prn bisacodyl. Continue to monitor prn medication use, for constipation/diarrhea. Date of Note:: 04/18/19 - Provider Comments Provider responsibility: Provider responsible to enter orders to implement recommendations <Gil Wheeler Chi - Last Filed: 04/18/19 13:56> Progress Note - Pharmacy Subjective: [] Objective: Allergies cocaine Allergy (Verified 09/11/18 13:52) Unknown vancomycin Allergy (Verified 03/20/19 16:27) Rash atorvastatin calcium [From Lipitor] Adverse Reaction (Verified 09/11/18 13:52) Pain in joints haloperidol [From Haldol] Adverse Reaction (Verified 09/11/18 13:52) Other WENT CRAZY morphine Adverse Reaction (Verified 09/11/18 13:52) Other extremely aggitated oxycodone [From OxyIR] Adverse Reaction (Verified 09/11/18 13:52) Pain in joints extremely aggitated prednisone Adverse Reaction (Verified 09/11/18 13:52) ANXIOUS, INSOMNIA STERIODS Adverse Reaction (Uncoded 08/16/18 02:59) Other ANXIETY INSOMNIA Current Medications Generic Name Dose Route Start Last Admin Trade Name Freq PRN Reason Stop Dose Admin Acetaminophen 1,000 mg 03/10/19 20:01 04/14/19 16:24 Tylenol PO 1,000 mg Q6H PRN PRN Administration MILD PAIN (1-3/10) Allopurinol 100 mg 03/11/19 08:00 04/18/19 08:23 Zyloprim PO 100 mg DAILYCM [facility] Administration Bisacodyl 10 mg 03/10/19 20:04 03/21/19 08:35 Dulcolax PO 10 mg DAILY PRN Administration Constipation Calamine/Phenol 1 applic 03/10/19 22:00 04/18/19 05:11 Calmoseptine Ointment TOPICAL 1 applicatio 0600,2200 CHERYL Administration Protocol Cholecalciferol 2,000 unit 03/24/19 08:00 04/18/19 08:23 Vitamin D PO 2,000 unit DAILYCM [facility] Administration Doxepin HCl 25 mg 04/03/19 22:00 04/17/19 22:18 Sinequan PO 25 mg QHS CHERYL Administration Doxycycline Monohydrate 100 mg 04/16/19 13:00 04/18/19 06:33 Doxycycline PO 100 mg BID CHERYL Administration Enoxaparin Sodium 40 mg 03/11/19 06:00 04/18/19 06:33 Lovenox SC 40 mg DAILY@0600 CHERYL Administration Furosemide 40 mg 03/10/19 22:00 04/18/19 13:19 Lasix PO 40 mg BIDLX CHERYL Administration Heparin Sodium (Beef Lung) 50 units 03/10/19 21:25 04/10/19 22:13 IV 50 units UD PRN Administration HEPARIN FLUSH Hydrocortisone 1 applic 04/15/19 08:10 04/15/19 11:21 Hytone TOPICAL 1 applicatio TID PRN PRN Administration ITCHING Protocol Sodium Chloride 250 mls @ 15 mls/hr 03/10/19 21:25 04/12/19 17:23 IV 15 mls/hr .[id number] PRN Administration SALINE FLUSH Insulin Glargine 20 units 04/17/19 06:00 04/18/19 06:42 Lantus ([facility]) SC 20 u BID CHERYL Administration Insulin Human Lispro 13 unit 04/17/19 06:45 04/18/19 12:33 Humalog Kwikpen ([facility]) SC 13 units TIDAC CHERYL Administration Levothyroxine Sodium 112 mcg 03/11/19 06:00 04/18/19 06:34 Synthroid PO 112 mcg DAILY@0600 CHERYL Administration Linagliptin 5 mg 03/11/19 06:00 04/18/19 06:35 Tradjenta PO 5 mg DAILY CHERYL Administration Losartan Potassium 100 mg 03/10/19 22:00 04/18/19 06:33 Cozaar PO 100 mg BID CHERYL Administration Metoprolol Succinate 12.5 mg 03/10/19 22:00 04/18/19 06:35 Toprol Xl (Beta Romel) PO 12.5 mg BID CHERYL Administration Multi-Ingredient Cream 1 applic 03/11/19 06:00 04/18/19 05:11 Eucerin TOPICAL 1 applicatio 06,0 CHERYL Administration Protocol Nutritional Formula 1 packet 03/11/19 08:00 04/18/19 08:23 Edy - [place] Flavor PO 1 packet BIDCM CHERYL Administration Nutritional Formula (Lactose Free) 120 ml 04/02/19 12:00 04/18/19 12:31 Glucerna Shake PO 120 ml 4X/DAY CHERYL Administration Nystatin 1 applic 03/10/19 22:00 04/18/19 06:44 Mycostatin Powder TOPICAL 1 applicatio 0600,2200 CHERYL Administration Protocol Pantoprazole Sodium 40 mg 03/28/19 06:00 04/18/19 06:34 Protonix PO 40 mg DAILY CHERYL Administration Paroxetine HCl 40 mg 03/11/19 06:00 04/18/19 06:34 Paxil PO 40 mg DAILY CHERYL Administration Polyethylene Glycol 17 gm 03/11/19 06:00 04/18/19 06:34 Miralax PO 17 gm DAILY CHERYL Administration Potassium Chloride 40 meq 04/17/19 12:45 04/18/19 12:31 K-Dur PO 40 meq TIDCM CHERYL Administration Simvastatin 40 mg 03/10/19 22:00 04/17/19 22:18 Zocor PO 40 mg QHS CHERYL Administration Sodium Chloride 10 - 20 ml 03/10/19 21:25 04/15/19 22:03 IV 20 ml UD PRN Administration PICC FLUSH Problem List (Last Reviewed 01/26/19 @ 17:02 by Bib Judge DO) Hypothyroidism (Chronic) Sleep apnea (Chronic) Body mass index (BMI) 40.0-44.9, adult (Chronic) Vital Signs Temp Pulse Resp BP Pulse Ox 98 F 72 16 116/59 L 95 04/17/19 16:00 04/18/19 06:35 04/17/19 16:00 04/18/19 06:35 04/17/19 16:00 Oxygen Delivery Method Room Air Weight: 109.316 kg Body Mass Index (BMI) 43.2 Finger Stick Blood Glucose 89 Sodium 138 mmol/L (136-145) 04/18/19 05:05 Potassium 3.2 mmol/L (3.5-5.1) L 04/18/19 05:05 Chloride 97 mmol/L (98-107) L 04/18/19 05:05 Carbon Dioxide 31.0 mmol/L (21.0-32.0) 04/18/19 05:05 Anion Gap 10 (5-15) 04/18/19 05:05 BUN 78 mg/dL (7-18) H 04/18/19 05:05 Creatinine 1.25 mg/dL (0.70-1.30) 04/18/19 05:05 Est GFR (MDRD) Af Amer 73 mL/min (>60) 04/18/19 05:05 Est GFR (MDRD) Non-Af 60 mL/min (>60) 04/18/19 05:05 BUN/Creatinine Ratio 62.4 RATIO (10-20) H 04/18/19 05:05 Glucose 229 mg/dL (74-106) H 04/18/19 05:05 Vancomycin Trough 16.8 ug/mL (5.0-15.0) H 03/16/19 04:35 Assessment/Plan: Psychotropic Medications: Unnecessary Medications: Bowel Regimen: - Provider Comments Provider responsibility: Provider responsible to enter orders to implement recommendations Provider Comments to Recommendations by Pharmacy: Agree
[2019-04-18 11:16] LABS: Bedside Glucose 368 mg/dL (70-110)
--- NOTE | 2019-04-18 14:42 | NURSING ---
Patient has c/o dizziness/lightheadedness for the past week. Dr. Wheeler updated, new order to check orthostatic BP's.
[2019-04-18 14:43] VITALS: BP 126/58; BP 132/60; PULSE 70; PULSE 72
--- NOTE | 2019-04-18 15:19 | NURSING ---
Orthostatic BP's completed. Lying- BP 132/60 left arm, P 70. Sitting- BP 126/58, P 72. Melinda YEE updated.
[2019-04-18 16:55] LABS: Bedside Glucose 263 mg/dL (70-110)
[2019-04-18 17:47] VITALS: BP 126/58; PULSE 72
--- NOTE | 2019-04-18 18:26 | NURSING ---
Pt BS prior to dinner 263. Pt refused dinner meal. Hold scheduled 13 units Mariely per Melinda YEE.
[2019-04-18 21:25] LABS: Bedside Glucose 220 mg/dL (70-110)
[2019-04-18] MEDS: Doxepin Hcl 25 MG Capsule PO (21:38)
[2019-04-18 22:53] VITALS: PULSE 72; RESP 18; O2SAT 95
[2019-04-19] MEDS: Menthol/Lanolin/Calamine/Znox 113 GM Tube 1 APPLIC TOPICAL ×2 (04:56→20:35)
[2019-04-19] MEDS: Nystatin Powder 15gm Bottle 1 APPLIC TOPICAL ×2 (04:57→20:36)
[2019-04-19] MEDS: Glucerna Shake 120 ML LIQUID PO ×4 (05:03→20:37)
[2019-04-19 05:10] VITALS: BP 132/72; PULSE 80
[2019-04-19] MEDS: Furosemide 40 MG Tablet PO ×2 (05:10→13:10)
[2019-04-19] MEDS: LINAGLIPTIN 5 MG TABLET PO (05:10)
[2019-04-19] MEDS: Levothyroxine 112 MCG Tablet PO (05:10)
[2019-04-19] MEDS: Paroxetine 20 MG Tablet 40 MG PO (05:10)
[2019-04-19] MEDS: Metoprolol(XL)Succ 25 MG Tablet 12.5 MG PO ×2 (05:10→17:38)
[2019-04-19] MEDS: Doxycycline 100 MG CAPSULE PO ×2 (05:10→17:38)
[2019-04-19] MEDS: Losartan Potassium 100 MG Tablet PO ×2 (05:10→17:38)
[2019-04-19] MEDS: Pantoprazole Sodium 40 MG Tablet PO (05:10)
[2019-04-19] MEDS: Enoxaparin 40 MG/0.4 ML Syringe SC (05:11)
[2019-04-19] MEDS: Polyethylene Glycol 3350 17 GM PACKET PO (05:11)
[2019-04-19] MEDS: Empagliflozin 25 MG Tablet PO (05:11)
[2019-04-19 06:31] LABS: Bedside Glucose 225 mg/dL (70-110)
[2019-04-19] MEDS: Insulin Lispro 100 UNIT/ML INSULN.PEN 13 UNIT SC ×3 (08:13→17:39)
[2019-04-19] MEDS: Allopurinol 100 MG Tablet PO (08:14)
[2019-04-19 11:40] LABS: Bedside Glucose 290 mg/dL (70-110)
[2019-04-19 13:50] VITALS: PULSE 73; RESP 18; O2SAT 92
[2019-04-19 15:49] VITALS: BP 103/67; PULSE 71; RESP 20; TEMP 36.6; O2SAT 95
[2019-04-19 17:06] LABS: Bedside Glucose 282 mg/dL (70-110)
[2019-04-19] MEDS: Hydrocortisone 2.5% Crm 1 APPLIC TOPICAL (17:26)
[2019-04-19 17:38] VITALS: BP 103/67; PULSE 71
[2019-04-19] MEDS: Doxepin Hcl 25 MG Capsule PO (20:38)
[2019-04-19 21:25] LABS: Bedside Glucose 255 mg/dL (70-110)
[2019-04-20] MEDS: Glucerna Shake 120 ML LIQUID PO ×3 (05:03→22:12)
[2019-04-20] MEDS: Enoxaparin 40 MG/0.4 ML Syringe SC (05:03)
[2019-04-20 05:05] VITALS: BP 146/73; PULSE 77
[2019-04-20] MEDS: Furosemide 40 MG Tablet PO ×2 (05:05→13:35)
[2019-04-20] MEDS: Levothyroxine 112 MCG Tablet PO (05:05)
[2019-04-20] MEDS: Losartan Potassium 100 MG Tablet PO ×2 (05:05→17:24)
[2019-04-20] MEDS: Pantoprazole Sodium 40 MG Tablet PO (05:05)
[2019-04-20] MEDS: Doxycycline 100 MG CAPSULE PO ×2 (05:05→17:24)
[2019-04-20] MEDS: Metoprolol(XL)Succ 25 MG Tablet 12.5 MG PO ×2 (05:05→17:24)
[2019-04-20] MEDS: LINAGLIPTIN 5 MG TABLET PO (05:05)
[2019-04-20] MEDS: Paroxetine 20 MG Tablet 40 MG PO (05:06)
[2019-04-20] MEDS: Empagliflozin 25 MG Tablet PO (05:06)
[2019-04-20] MEDS: Nystatin Powder 15gm Bottle 1 APPLIC TOPICAL ×2 (05:09→22:16)
[2019-04-20] MEDS: Menthol/Lanolin/Calamine/Znox 113 GM Tube 1 APPLIC TOPICAL ×2 (05:09→22:16)
[2019-04-20] MEDS: Polyethylene Glycol 3350 17 GM PACKET PO (05:11)
[2019-04-20 06:31] LABS: Bedside Glucose 212 mg/dL (70-110)
[2019-04-20] MEDS: Allopurinol 100 MG Tablet PO (07:49)
[2019-04-20] MEDS: Insulin Lispro 100 UNIT/ML INSULN.PEN 13 UNIT SC ×3 (07:52→17:26)
[2019-04-20 08:33] LABS: Anion Gap 10 (5-15); BUN 77 mg/dL (7-18); BUN/Creat Ratio 63.1 RATIO (10-20); Calcium,Total 9.7 mg/dL (8.5-10.1); Chloride 97 mmol/L (98-107); Creatinine, Serum 1.22 mg/dL (0.70-1.30); EST Glomerular Filtration Rate 62 mL/min (>60); Est Glom Filt Rate - Afr Amer 75 mL/min (>60); Estimated Creatinine Clearance 50.42 ml/min; Glucose 204 mg/dL (74-106); Potassium 3.5 mmol/L (3.5-5.1); Sodium Level 136 mmol/L (136-145)
[2019-04-20 11:21] LABS: Bedside Glucose 303 mg/dL (70-110)
[2019-04-20 14:06] VITALS: BP 128/90; PULSE 72; RESP 24; TEMP 36.7; O2SAT 97
[2019-04-20] MEDS: Acetaminophen 500 MG Tablet 1000 MG PO (14:49)
[2019-04-20 17:11] LABS: Bedside Glucose 206 mg/dL (70-110)
[2019-04-20 17:24] VITALS: BP 128/90; PULSE 72
[2019-04-20] MEDS: Doxepin Hcl 25 MG Capsule PO (22:13)
[2019-04-20 22:46] VITALS: PULSE 70; RESP 16; O2SAT 95
--- NOTE | 2019-04-21 01:01 | NURSING ---
This nurse cleansed pt wound, applied a wet to dry sterile dressing, with abd pad wrapped with a kerlix. Wound vac had a blockage error message and wound vac is being changed by wound nurse today. RN aware
[2019-04-21] MEDS: Polyethylene Glycol 3350 17 GM PACKET PO (05:05)
[2019-04-21] MEDS: Menthol/Lanolin/Calamine/Znox 113 GM Tube 1 APPLIC TOPICAL ×2 (05:05→20:52)
[2019-04-21] MEDS: Glucerna Shake 120 ML LIQUID PO ×4 (05:06→20:52)
[2019-04-21] MEDS: Enoxaparin 40 MG/0.4 ML Syringe SC (05:06)
[2019-04-21 05:07] VITALS: BP 123/71; PULSE 78
[2019-04-21] MEDS: Paroxetine 20 MG Tablet 40 MG PO (05:07)
[2019-04-21] MEDS: Metoprolol(XL)Succ 25 MG Tablet 12.5 MG PO ×2 (05:07→17:42)
[2019-04-21] MEDS: Doxycycline 100 MG CAPSULE PO ×2 (05:07→17:42)
[2019-04-21] MEDS: Levothyroxine 112 MCG Tablet PO (05:07)
[2019-04-21] MEDS: Pantoprazole Sodium 40 MG Tablet PO (05:07)
[2019-04-21] MEDS: Furosemide 40 MG Tablet PO ×2 (05:07→13:18)
[2019-04-21] MEDS: Losartan Potassium 100 MG Tablet PO ×2 (05:07→17:42)
[2019-04-21] MEDS: LINAGLIPTIN 5 MG TABLET PO (05:08)
[2019-04-21 05:10] LABS: Bedside Glucose 208 mg/dL (70-110)
[2019-04-21] MEDS: Nystatin Powder 15gm Bottle 1 APPLIC TOPICAL ×2 (05:13→20:53)
[2019-04-21] MEDS: Empagliflozin 25 MG Tablet PO (05:17)
[2019-04-21 06:31] LABS: Bedside Glucose 233 mg/dL (70-110)
[2019-04-21] MEDS: Insulin Lispro 100 UNIT/ML INSULN.PEN 13 UNIT SC ×3 (08:07→18:38)
[2019-04-21] MEDS: Allopurinol 100 MG Tablet PO (08:07)
[2019-04-21 10:00] VITALS: PULSE 74; RESP 18; O2SAT 97
[2019-04-21 11:01] LABS: Bedside Glucose 314 mg/dL (70-110)
--- NOTE | 2019-04-21 13:37 | NURSING ---
Wound vac to RLE changed by wound nurse Nkechi YEE this shift.
--- NOTE | 2019-04-21 14:11 | CASEMGMT ---
Insurance: Approval for continued stay granted with next update due today 04/21. New clinical update faxed. Will await continued stay determination. Pt notified. Auth # [id number] ANIL Devries
--- NOTE | 2019-04-21 15:13 | NURSING ---
wound photo: right lateral lower leg
[2019-04-21 15:21] VITALS: BP 104/62; PULSE 70; RESP 18; TEMP 36.9; O2SAT 94
[2019-04-21 16:46] LABS: Bedside Glucose 235 mg/dL (70-110)
[2019-04-21 17:42] VITALS: BP 118/68; PULSE 76
[2019-04-21] MEDS: Doxepin Hcl 25 MG Capsule PO (20:56)
[2019-04-21 21:16] LABS: Bedside Glucose 203 mg/dL (70-110)
[2019-04-22] MEDS: Acetaminophen 500 MG Tablet 1000 MG PO ×2 (04:21→20:48)
[2019-04-22] MEDS: Glucerna Shake 120 ML LIQUID PO ×4 (04:21→20:36)
[2019-04-22] MEDS: Menthol/Lanolin/Calamine/Znox 113 GM Tube 1 APPLIC TOPICAL ×2 (04:24→20:36)
[2019-04-22] MEDS: Paroxetine 20 MG Tablet 40 MG PO (04:25)
[2019-04-22] MEDS: Polyethylene Glycol 3350 17 GM PACKET PO (04:27)
[2019-04-22 04:29] VITALS: BP 148/76; PULSE 80
[2019-04-22] MEDS: Losartan Potassium 100 MG Tablet PO ×2 (04:29→16:59)
[2019-04-22] MEDS: LINAGLIPTIN 5 MG TABLET PO (04:29)
[2019-04-22] MEDS: Metoprolol(XL)Succ 25 MG Tablet 12.5 MG PO ×2 (04:29→16:59)
[2019-04-22] MEDS: Doxycycline 100 MG CAPSULE PO ×2 (04:30→16:58)
[2019-04-22] MEDS: Furosemide 40 MG Tablet PO ×2 (04:30→14:21)
[2019-04-22] MEDS: Levothyroxine 112 MCG Tablet PO (04:30)
[2019-04-22] MEDS: Empagliflozin 25 MG Tablet PO (04:30)
[2019-04-22] MEDS: Pantoprazole Sodium 40 MG Tablet PO (04:30)
[2019-04-22 06:51] LABS: Bedside Glucose 193 mg/dL (70-110)
[2019-04-22] MEDS: Enoxaparin 40 MG/0.4 ML Syringe SC (06:57)
[2019-04-22] MEDS: Nystatin Powder 15gm Bottle 1 APPLIC TOPICAL ×2 (06:57→20:37)
[2019-04-22 07:00] VITALS: PULSE 80; RESP 18; O2SAT 94
[2019-04-22] MEDS: Allopurinol 100 MG Tablet PO (08:13)
[2019-04-22] MEDS: Insulin Lispro 100 UNIT/ML INSULN.PEN 17 UNIT SC ×3 (08:57→17:51)
[2019-04-22 11:00] LABS: Bedside Glucose 282 mg/dL (70-110)
[2019-04-22 15:31] VITALS: BP 148/68; PULSE 66; RESP 16; O2SAT 95
[2019-04-22 16:59] VITALS: BP 148/68; PULSE 66
[2019-04-22 17:11] LABS: Bedside Glucose 226 mg/dL (70-110)
[2019-04-22] MEDS: Doxepin Hcl 25 MG Capsule PO (20:39)
[2019-04-22 21:31] LABS: Bedside Glucose 172 mg/dL (70-110)
[2019-04-23] MEDS: Glucerna Shake 120 ML LIQUID PO ×4 (05:09→20:29)
[2019-04-23] MEDS: Menthol/Lanolin/Calamine/Znox 113 GM Tube 1 APPLIC TOPICAL ×2 (05:17→20:30)
[2019-04-23] MEDS: Pantoprazole Sodium 40 MG Tablet PO (05:17)
[2019-04-23 05:18] VITALS: BP 133/82; PULSE 84
[2019-04-23] MEDS: Levothyroxine 112 MCG Tablet PO (05:18)
[2019-04-23] MEDS: Metoprolol(XL)Succ 25 MG Tablet 12.5 MG PO ×2 (05:18→18:05)
[2019-04-23] MEDS: Doxycycline 100 MG CAPSULE PO ×2 (05:19→18:05)
[2019-04-23] MEDS: Furosemide 40 MG Tablet PO ×2 (05:19→13:23)
[2019-04-23] MEDS: LINAGLIPTIN 5 MG TABLET PO (05:19)
[2019-04-23] MEDS: Paroxetine 20 MG Tablet 40 MG PO (05:19)
[2019-04-23] MEDS: Polyethylene Glycol 3350 17 GM PACKET PO (05:20)
[2019-04-23] MEDS: Losartan Potassium 100 MG Tablet PO ×2 (05:20→18:06)
[2019-04-23] MEDS: Empagliflozin 25 MG Tablet PO (05:20)
[2019-04-23] MEDS: Enoxaparin 40 MG/0.4 ML Syringe SC (05:22)
[2019-04-23] MEDS: Nystatin Powder 15gm Bottle 1 APPLIC TOPICAL ×2 (05:22→20:30)
[2019-04-23 06:45] LABS: Bedside Glucose 200 mg/dL (70-110)
[2019-04-23] MEDS: Allopurinol 100 MG Tablet PO (08:51)
[2019-04-23 11:36] LABS: Bedside Glucose 213 mg/dL (70-110)
[2019-04-23] MEDS: Insulin Lispro 100 UNIT/ML INSULN.PEN 17 UNIT SC ×2 (11:57→18:19)
[2019-04-23 15:22] VITALS: BP 127/71; PULSE 68; RESP 20; TEMP 36.9; O2SAT 97
--- NOTE | 2019-04-23 15:39 | NURSING ---
WOUND VAC CHANGED TODAY BY JOSELITO ARNDT
[2019-04-23 16:55] LABS: Bedside Glucose 176 mg/dL (70-110)
[2019-04-23 18:05] VITALS: BP 127/71; PULSE 68
[2019-04-23] MEDS: Doxepin Hcl 25 MG Capsule PO (20:33)
[2019-04-23 20:39] VITALS: PULSE 74; RESP 18; O2SAT 95
[2019-04-23 20:56] LABS: Bedside Glucose 214 mg/dL (70-110)
[2019-04-24] MEDS: Glucerna Shake 120 ML LIQUID PO ×4 (05:28→21:17)
[2019-04-24] MEDS: Enoxaparin 40 MG/0.4 ML Syringe SC (05:28)
[2019-04-24] MEDS: Paroxetine 20 MG Tablet 40 MG PO (05:29)
[2019-04-24] MEDS: Polyethylene Glycol 3350 17 GM PACKET PO (05:29)
[2019-04-24] MEDS: Doxycycline 100 MG CAPSULE PO ×2 (05:29→17:32)
[2019-04-24] MEDS: Furosemide 40 MG Tablet PO ×2 (05:29→15:01)
[2019-04-24] MEDS: Levothyroxine 112 MCG Tablet PO (05:29)
[2019-04-24] MEDS: Pantoprazole Sodium 40 MG Tablet PO (05:29)
[2019-04-24] MEDS: LINAGLIPTIN 5 MG TABLET PO (05:29)
[2019-04-24] MEDS: Empagliflozin 25 MG Tablet PO ×2 (05:29→05:32)
[2019-04-24] MEDS: Losartan Potassium 100 MG Tablet PO ×2 (05:29→17:32)
[2019-04-24] MEDS: Menthol/Lanolin/Calamine/Znox 113 GM Tube 1 APPLIC TOPICAL ×2 (05:33→21:17)
[2019-04-24] MEDS: Nystatin Powder 15gm Bottle 1 APPLIC TOPICAL ×2 (05:34→21:17)
[2019-04-24 05:39] VITALS: BP 131/66; PULSE 66
[2019-04-24] MEDS: Metoprolol(XL)Succ 25 MG Tablet 12.5 MG PO ×2 (05:39→17:31)
[2019-04-24 06:55] LABS: Bedside Glucose 187 mg/dL (70-110)
[2019-04-24] MEDS: Insulin Lispro 100 UNIT/ML INSULN.PEN 17 UNIT SC ×3 (08:30→17:34)
[2019-04-24] MEDS: Allopurinol 100 MG Tablet PO (08:31)
--- NOTE | 2019-04-24 10:49 | CASEMGMT ---
Insurance: Continued stay denied. Last covered day 04/26 with d/c 04/27. Auth# [id number] ANIL Devries
[2019-04-24 11:06] LABS: Bedside Glucose 275 mg/dL (70-110)
--- NOTE | 2019-04-24 11:32 | MDS.RN ---
Information for the mds was obtained from review of the clinical record, interview of resident, staff, and direct observation of resident's care.
[2019-04-24 15:06] VITALS: BP 116/58; PULSE 65; RESP 18; TEMP 36.8; O2SAT 97
--- NOTE | 2019-04-24 15:19 | CASEMGMT ---
Social Work Met with pt and and explained continued stay is not approved with LCD on 04/26 and d/c 04/27. Pt and are agreeable and planning d/c on 04/27. Pt will be going home with who is planning on assisting with needs. SW has spoke with pt and multiple times regarding safety concerns and ECF placement. and pt deny need or desire for ECF placement. Pt agreeable to home health services PT/OT/RN/TRINIDAD/JENNIFER and would like to continue with [facility]. Pt will need a hospital bed, bradford lift and elevating leg rest for wheelchair that he already has. Pt has WW. SW will follow for d/c planning. Plan: d/c home 04/27 with . home health PT/OT/SN/TRINIDAD/ANIL Hubbard
[2019-04-24 17:31] VITALS: BP 116/58; PULSE 65
--- NOTE | 2019-04-24 20:14 | PCM.DC ---
- Discharge Diagnoses Current Active Problems: Current Active and Chronic Problems (Last Reviewed 01/26/19 @ 17:02 by Bib Judge DO) Hypothyroidism (Chronic) Sleep apnea (Chronic) Body mass index (BMI) 40.0-44.9, adult (Chronic) You will use the following diet at home:: No restrictions, Regular Your food should be the consistency of: Regular Your liquids should be the consistency of: Regular/Thin Discharge Activity: Return to Normal Activity, May Shower, Use Walker May resume sexual activity in: No Restrictions Weight Bearing Status: Weight bearing as tolerated Call your doctor if you observe: Fever of 101 or Higher, Inability to urinate, Inability to have a bowel movement, Shortness of breath, Chest pain, Uncontrolled pain Allergies/Adverse Reactions: Allergies cocaine Allergy (Verified 09/11/18 13:52) Unknown vancomycin Allergy (Verified 03/20/19 16:27) Rash atorvastatin calcium [From Lipitor] Adverse Reaction (Verified 09/11/18 13:52) Pain in joints haloperidol [From Haldol] Adverse Reaction (Verified 09/11/18 13:52) Other WENT CRAZY morphine Adverse Reaction (Verified 09/11/18 13:52) Other extremely aggitated oxycodone [From OxyIR] Adverse Reaction (Verified 09/11/18 13:52) Pain in joints extremely aggitated prednisone Adverse Reaction (Verified 09/11/18 13:52) ANXIOUS, INSOMNIA STERIODS Adverse Reaction (Uncoded 08/16/18 02:59) Other ANXIETY INSOMNIA Medications to take at Discharge Paroxetine HCl [Paxil] 40 mg PO DAILY 09/27/16 Potassium Chloride [K-Dur] 20 meq PO BIDCM 09/27/16 Simvastatin [Zocor] 40 mg PO QHS 09/27/16 Allopurinol 100 mg PO DAILY 05/17/18 Losartan Potassium 100 mg PO BID #60 tablet 09/09/18 Dulaglutide [Trulicity] 1.5 mg SQ QWEEK 01/26/19 Cholecalciferol (Vitamin D3) [Vitamin D3] 2,000 unit PO DAILY 02/03/19 Empagliflozin [Jardiance] 25 mg PO DAILY 02/03/19 Metoprolol(XL)Succ [Toprol Xl (Beta Romel)] 12.5 mg PO BID 02/03/19 Acetaminophen [Tylenol] 1,000 mg PO Q6H PRN PRN tablet 04/08/19 Levothyroxine [Synthroid] 112 mcg PO DAILY@0600 03/10/19 Linagliptin [Tradjenta] 5 mg PO DAILY 03/10/19 Menthol/Lanolin/Calamine/Znox [Calmoseptine Ointment] 1 applic TOPICAL 0600,2200 03/10/19 Nystatin Powder [Mycostatin Powder] 1 applic TOPICAL 0600,2200 03/10/19 Doxepin HCl [Sinequan] 25 mg PO QHS #30 capsule 04/24/19 Doxycycline 100 mg PO BID #60 capsule 04/24/19 Furosemide [Lasix] 40 mg PO BIDLX #60 tablet 04/24/19 Insulin Glargine [Lantus SoloStar Pen] 25 units SC BID #1 pen 04/24/19 Insulin Lispro [Humalog KwikPen] 17 unit SC TIDAC #1 insuln.pen 04/24/19 Mineral Oil/Petrolatum,White [Eucerin] 1 applic TOPICAL 0600,2200 jar 04/24/19 Nutritional Supplement [Edy - ORANGE FLAVOR] 1 packet PO BIDCM #60 packet 04/24/19 Pantoprazole Sodium [Protonix] 40 mg PO DAILY #30 tablet 04/24/19 Polyethylene Glycol 3350 [Miralax] 17 gm PO DAILY #30 packet 04/24/19 The following prescriptions were given: Doxepin HCl [Sinequan] 25 mg PO QHS #30 capsule Furosemide [Lasix] 40 mg PO BIDLX #60 tablet Insulin Lispro [Humalog KwikPen] 17 unit SC TIDAC #1 insuln.pen Pantoprazole Sodium [Protonix] 40 mg PO DAILY #30 tablet Polyethylene Glycol 3350 [Miralax] 17 gm PO DAILY #30 packet Doxycycline 100 mg PO BID #60 capsule Insulin Glargine [Lantus SoloStar Pen] 25 units SC BID #1 pen Nutritional Supplement [Edy - ORANGE FLAVOR] 1 packet PO BIDCM #60 packet Primary Care Physician: Gil Wheeler Chi, MD [Primary Care Provider] - Please follow up with your Primary Care Physician in: 1 week. Test Results: Test results from this visit will be discussed in further detail at your follow-up appointment, if applicable. Please Follow Up With: Dr Rutledge When: As scheduled. Proposed Discharge Date: 04/27/19
--- NOTE | 2019-04-24 20:16 | PCM.DC.SUM ---
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 Fracture of right tibia and fibula (Chronic) recent - January 2019 Lymphedema (Chronic) Diabetes mellitus (Chronic) GERD (gastroesophageal reflux disease) (Chronic) Lumbar spinal stenosis (Chronic) Osteoarthritis of knees, bilateral (Chronic) Depression (Chronic) Gout (Chronic) Neuropathic pain (Chronic) Low back pain (Chronic) Chronic venous insufficiency (Chronic) EH (obstructive sleep apnea) (Chronic) Tricuspid valve insufficiency (Chronic) Obesity, morbid, BMI 40.0-49.9 (Chronic) Non-rheumatic tricuspid valve insufficiency (Chronic) Chronic diastolic (congestive) heart failure (Chronic) Hyperlipidemia (Chronic) Hypertension (Chronic) Hospital Course and Treatment Imaging Results: 04/02/19 10:39 Diet: Regular Diet Is pt able to select menu?: Yes Diet Comments: cardiac Clinical Impression(s) from Imaging Studies Abdomen X-Ray 03/31/19 17:18 IMPRESSION: Nonspecific bowel gas pattern. Electronically Signed: Ania Almanza MD at 18:20 EDT Tel , Service support , Chest X-Ray 03/31/19 17:18 IMPRESSION: Mild cardiomegaly. Minimal lingular atelectasis. Electronically Signed: Amaya Oshea MD at 2:52 EDT Tel , Service support , Labs (Last 48 Hours) 04/22/19 04/23/19 04/23/19 21:11 06:33 11:22 POC Glucose 172 H 200 H 213 H 04/23/19 04/23/19 04/24/19 16:45 20:42 06:34 POC Glucose 176 H 214 H 187 H 04/24/19 10:58 POC Glucose 275 H Consultations 03/11/19 02:57 Consult: Onc/Wound/construction mgr Routine Comment: Reason for Consult:: RLE wound vac Operations: None, - - S/P open reduction internal fixation right bicondylar tibial plateau fracture Procedures: None Summary of Care Provided: The patient is a 73 year old Male with below past medical history hospitalized for MRSA infected right leg ulcer, underwent debridement with Dr. Fernando 03/05/2019, admitted to TCU with debility, here for rehabilitation, strengthening, intravenous antibiotic, wound care, prior to discharge home with spouse. Resident needs a hospital bed, elevating leg rest for wheelchair, bradford lift for transfers. Resident unable to maintain NWB status when transferring and therefore is using a bradford lift for transfers and will need a semi electric hospital bed with variable heights for transfer from chair to bed. Resident will require an elevating leg rest due to tib/fib fracture. Discharge home with spouse, Home Health Services for PT/OT/SN/TECHNICAL SPECIALIST/SW. - Physical Exam Vital Signs Temp Pulse Resp BP Pulse Ox 98.3 F 65 18 116/58 L 97 04/24/19 15:06 04/24/19 17:31 04/24/19 15:06 04/24/19 17:31 04/24/19 15:06 Oxygen Delivery Method Room Air Weight: 108.409 kg Body Mass Index (BMI) 43.2 Finger Stick Blood Glucose 89 Intake and Output for Last 24 Hours 04/22/19 04/23/19 04/24/19 23:59 23:59 23:59 Intake Total 1200 / 1200 960 / 960 1320 / 1320 Output Total 100 / 100 150 / 150 Balance 1200 / 1200 860 / 860 1170 / 1170 POC Glucose 04/24/19 04/24/19 04/23/19 10:58 06:34 20:42 POC Glucose 275 H 187 H 214 H Discharge Activity: May Shower May resume sexual activity in: No Restrictions Weight Bearing Status: No weight bearing Call your doctor if you observe: Fever of 101 or Higher, Inability to urinate, Inability to have a bowel movement, Shortness of breath, Chest pain, Uncontrolled pain Home Medications: Medications to take at Discharge Paroxetine HCl [Paxil] 40 mg PO DAILY 09/27/16 Potassium Chloride [K-Dur] 20 meq PO BIDCM 09/27/16 Simvastatin [Zocor] 40 mg PO QHS 09/27/16 Allopurinol 100 mg PO DAILY 05/17/18 Losartan Potassium 100 mg PO BID #60 tablet 09/09/18 Dulaglutide [Trulicity] 1.5 mg SQ QWEEK 01/26/19 Cholecalciferol (Vitamin D3) [Vitamin D3] 2,000 unit PO DAILY 02/03/19 Empagliflozin [Jardiance] 25 mg PO DAILY 02/03/19 Metoprolol(XL)Succ [Toprol Xl (Beta Romel)] 12.5 mg PO BID 02/03/19 Acetaminophen [Tylenol] 1,000 mg PO Q6H PRN PRN tablet 02/24/19 Levothyroxine [Synthroid] 112 mcg PO DAILY@0600 03/10/19 Linagliptin [Tradjenta] 5 mg PO DAILY 03/10/19 Menthol/Lanolin/Calamine/Znox [Calmoseptine Ointment] 1 applic TOPICAL 0600,0 03/10/19 Nystatin Powder [Mycostatin Powder] 1 applic TOPICAL 0600,2200 03/10/19 Doxepin HCl [Sinequan] 25 mg PO QHS #30 capsule 04/24/19 Doxycycline 100 mg PO BID #60 capsule 04/24/19 Furosemide [Lasix] 40 mg PO BIDLX #60 tablet 04/24/19 Insulin Glargine [Lantus SoloStar Pen] 25 units SC BID #1 pen 04/24/19 Insulin Lispro [Humalog KwikPen] 17 unit SC TIDAC #1 insuln.pen 04/24/19 Mineral Oil/Petrolatum,White [Eucerin] 1 applic TOPICAL 0600,2200 jar 04/24/19 Nutritional Supplement [Edy - ORANGE FLAVOR] 1 packet PO BIDCM #60 packet 04/24/19 Pantoprazole Sodium [Protonix] 40 mg PO DAILY #30 tablet 04/24/19 Polyethylene Glycol 3350 [Miralax] 17 gm PO DAILY #30 packet 04/24/19 Following Prescrptions Were Given to Patient: Doxepin HCl [Sinequan] 25 mg PO QHS #30 capsule Furosemide [Lasix] 40 mg PO BIDLX #60 tablet Insulin Lispro [Humalog KwikPen] 17 unit SC TIDAC #1 insuln.pen Pantoprazole Sodium [Protonix] 40 mg PO DAILY #30 tablet Polyethylene Glycol 3350 [Miralax] 17 gm PO DAILY #30 packet Doxycycline 100 mg PO BID #60 capsule Insulin Glargine [Lantus SoloStar Pen] 25 units SC BID #1 pen Nutritional Supplement [Edy - ORANGE FLAVOR] 1 packet PO BIDCM #60 packet Primary Care Physician: Gil Wheeler Chi, MD [Primary Care Provider] - Please follow up with your Primary Care Physician in: 1 week. Please Follow Up With: Dr Rutledge When: As scheduled. Disposition: Home with Home Health Minutes spent on discharge:: 35 Patient Condition:: Stable Medical Necessity - Tobacco Use Smoking Status: Former smoker Tobacco Use: Non-smoker Meaningful Use Info Meaningful Use Diagnoses (Choose all that apply): None applicable
--- NOTE | 2019-04-24 20:20 | DS.PCM_ITS ---
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 Fracture of right tibia and fibula (Chronic) recent - January 2019 Lymphedema (Chronic) Diabetes mellitus (Chronic) GERD (gastroesophageal reflux disease) (Chronic) Lumbar spinal stenosis (Chronic) Osteoarthritis of knees, bilateral (Chronic) Depression (Chronic) Gout (Chronic) Neuropathic pain (Chronic) Low back pain (Chronic) Chronic venous insufficiency (Chronic) EH (obstructive sleep apnea) (Chronic) Tricuspid valve insufficiency (Chronic) Obesity, morbid, BMI 40.0-49.9 (Chronic) Non-rheumatic tricuspid valve insufficiency (Chronic) Chronic diastolic (congestive) heart failure (Chronic) Hyperlipidemia (Chronic) Hypertension (Chronic) Hospital Course and Treatment Imaging Results: 04/02/19 10:39 Diet: Regular Diet Is pt able to select menu?: Yes Diet Comments: cardiac Clinical Impression(s) from Imaging Studies Abdomen X-Ray 03/31/19 17:18 IMPRESSION: Nonspecific bowel gas pattern. Electronically Signed: Ania Almanza MD at 18:20 EDT Tel , Service support , Chest X-Ray 03/31/19 17:18 IMPRESSION: Mild cardiomegaly. Minimal lingular atelectasis. Electronically Signed: Amaya Oshea MD at 2:52 EDT Tel , Service support , Labs (Last 48 Hours) 04/22/19 04/23/19 04/23/19 21:11 06:33 11:22 POC Glucose 172 H 200 H 213 H 04/23/19 04/23/19 04/24/19 16:45 20:42 06:34 POC Glucose 176 H 214 H 187 H 04/24/19 10:58 POC Glucose 275 H Consultations 03/11/19 02:57 Consult: Onc/Wound/allied health professional Routine Comment: Reason for Consult:: RLE wound vac Operations: None, - - S/P open reduction internal fixation right bicondylar tibial plateau fracture Procedures: None Summary of Care Provided: The patient is a 73 year old Male with below past medical history hospitalized for MRSA infected right leg ulcer, underwent debridement with Dr. Fernando 02/17, admitted to TCU with debility, here for rehabilitation, strengthening, intravenous antibiotic, wound care, prior to discharge home with spouse. Resident needs a hospital bed, elevating leg rest for wheelchair, bradford lift for transfers. Resident unable to maintain NWB status when transferring and therefore is using a bradford lift for transfers and will need a semi electric hospital bed with variable heights for transfer from chair to bed. Resident will require an elevating leg rest due to tib/fib fracture. Discharge home with spouse, Home Health Services for PT/OT/SN/CARBIDE TOOL MAKER/SW. - Physical Exam Vital Signs Temp Pulse Resp BP Pulse Ox 98.3 F 65 18 116/58 L 97 04/24/19 15:06 04/24/19 17:31 04/24/19 15:06 04/24/19 17:31 04/24/19 15:06 Oxygen Delivery Method Room Air Weight: 108.409 kg Body Mass Index (BMI) 43.2 Finger Stick Blood Glucose 89 Intake and Output for Last 24 Hours 04/22/19 04/23/19 04/24/19 23:59 23:59 23:59 Intake Total 1200 / 1200 960 / 960 1320 / 1320 Output Total 100 / 100 150 / 150 Balance 1200 / 1200 860 / 860 1170 / 1170 POC Glucose 04/24/19 04/24/19 04/23/19 10:58 06:34 20:42 POC Glucose 275 H 187 H 214 H Discharge Activity: May Shower May resume sexual activity in: No Restrictions Weight Bearing Status: No weight bearing Call your doctor if you observe: Fever of 101 or Higher, Inability to urinate, Inability to have a bowel movement, Shortness of breath, Chest pain, Uncontrolled pain Home Medications: Medications to take at Discharge Paroxetine HCl [Paxil] 40 mg PO DAILY 09/27/16 Potassium Chloride [K-Dur] 20 meq PO BIDCM 09/27/16 Simvastatin [Zocor] 40 mg PO QHS 09/27/16 Allopurinol 100 mg PO DAILY 05/17/18 Losartan Potassium 100 mg PO BID #60 tablet 09/09/18 Dulaglutide [Trulicity] 1.5 mg SQ QWEEK 01/26/19 Cholecalciferol (Vitamin D3) [Vitamin D3] 2,000 unit PO DAILY 02/03/19 Empagliflozin [Jardiance] 25 mg PO DAILY 02/03/19 Metoprolol(XL)Succ [Toprol Xl (Beta Romel)] 12.5 mg PO BID 02/03/19 Acetaminophen [Tylenol] 1,000 mg PO Q6H PRN PRN tablet 02/24/19 Levothyroxine [Synthroid] 112 mcg PO DAILY@0600 03/10/19 Linagliptin [Tradjenta] 5 mg PO DAILY 03/10/19 Menthol/Lanolin/Calamine/Znox [Calmoseptine Ointment] 1 applic TOPICAL 0600,0 03/10/19 Nystatin Powder [Mycostatin Powder] 1 applic TOPICAL 0600,2200 03/10/19 Doxepin HCl [Sinequan] 25 mg PO QHS #30 capsule 04/24/19 Doxycycline 100 mg PO BID #60 capsule 04/24/19 Furosemide [Lasix] 40 mg PO BIDLX #60 tablet 04/24/19 Insulin Glargine [Lantus SoloStar Pen] 25 units SC BID #1 pen 04/24/19 Insulin Lispro [Humalog KwikPen] 17 unit SC TIDAC #1 insuln.pen 04/24/19 Mineral Oil/Petrolatum,White [Eucerin] 1 applic TOPICAL 0600,2200 jar 04/24/19 Nutritional Supplement [Edy - ORANGE FLAVOR] 1 packet PO BIDCM #60 packet 04/24/19 Pantoprazole Sodium [Protonix] 40 mg PO DAILY #30 tablet 04/24/19 Polyethylene Glycol 3350 [Miralax] 17 gm PO DAILY #30 packet 04/24/19 Following Prescrptions Were Given to Patient: Doxepin HCl [Sinequan] 25 mg PO QHS #30 capsule Furosemide [Lasix] 40 mg PO BIDLX #60 tablet Insulin Lispro [Humalog KwikPen] 17 unit SC TIDAC #1 insuln.pen Pantoprazole Sodium [Protonix] 40 mg PO DAILY #30 tablet Polyethylene Glycol 3350 [Miralax] 17 gm PO DAILY #30 packet Doxycycline 100 mg PO BID #60 capsule Insulin Glargine [Lantus SoloStar Pen] 25 units SC BID #1 pen Nutritional Supplement [Edy - ORANGE FLAVOR] 1 packet PO BIDCM #60 packet Primary Care Physician: Gil Wheeler Chi, MD [Primary Care Provider] - Please follow up with your Primary Care Physician in: 1 week. Please Follow Up With: Dr Rutledge When: As scheduled. Disposition: Home with Home Health Minutes spent on discharge:: 35 Patient Condition:: Stable Medical Necessity - Tobacco Use Smoking Status: Former smoker Tobacco Use: Non-smoker Meaningful Use Info Meaningful Use Diagnoses (Choose all that apply): None applicable
--- NOTE | 2019-04-24 20:20 | PCM.PN.HH ---
Home Health Note - Plan Overview of reason of hospitalization: The patient is a 73 year old Male with below past medical history hospitalized for MRSA infected right leg ulcer, underwent debridement with Dr. Fernando 03/05/2019, admitted to TCU with debility, here for rehabilitation, strengthening, intravenous antibiotic, wound care, prior to discharge home with spouse. Resident needs a hospital bed, elevating leg rest for wheelchair, bradford lift for transfers. Resident unable to maintain NWB status when transferring and therefore is using a bradford lift for transfers and will need a semi electric hospital bed with variable heights for transfer from chair to bed. Resident will require an elevating leg rest due to tib/fib fracture. Discharge home with spouse, Home Health Services for PT/OT/SN/BRAZER HELPER INDUCTION/SW. 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) Presence of right artificial knee joint (Chronic) Unspecified fracture of shaft of right tibia, sequela (Acute) Fracture of right tibia and fibula (Chronic) Lymphedema (Chronic) Diabetes mellitus (Chronic) GERD (gastroesophageal reflux disease) (Chronic) Lumbar spinal stenosis (Chronic) Osteoarthritis of knees, bilateral (Chronic) Depression (Chronic) Gout (Chronic) Neuropathic pain (Chronic) Low back pain (Chronic) Chronic venous insufficiency (Chronic) EH (obstructive sleep apnea) (Chronic) Tricuspid valve insufficiency (Chronic) Obesity, morbid, BMI 40.0-49.9 (Chronic) Non-rheumatic tricuspid valve insufficiency (Chronic) Chronic diastolic (congestive) heart failure (Chronic) Hyperlipidemia (Chronic) Hypertension (Chronic) - Requirements and Reasons Disciplines Needed/Ordered: Mcfp, Physical Therapy Reason for Disciplines: Disease Specific Monitoring/education, Wound Care, Gait Training, Stair Training, Fall Prevention, Home Safety/Equipment Instruction, Balance and/or Posture Training, Transfer Training Related To: Change in Medical Treatment Plan, Limited/Poor Endurance, Physical Impairments, Unsteady Gait/Balance, Fall Risk Patient is unable to leave the home: Without Aid of Supportive Devices (crutches, cane, wheelchair, walker), Without the assistance of another person, Because it is medically contraindicated Medically Contraindicated related to: Weight Bearing Status - Additional Disciplines Additional Disciplines Needed/Ordered: Occupational Therapy, Firer Powerhouse, Home Health Aide
[2019-04-24 21:10] LABS: Bedside Glucose 219 mg/dL (70-110)
[2019-04-24 21:15] VITALS: PULSE 72; RESP 18; O2SAT 98
[2019-04-24] MEDS: Doxepin Hcl 25 MG Capsule PO (21:19)
[2019-04-25 05:17] VITALS: RESP 18
[2019-04-25] MEDS: Glucerna Shake 120 ML LIQUID PO ×4 (05:24→19:51)
[2019-04-25 05:25] VITALS: BP 115/69; PULSE 66
[2019-04-25] MEDS: Metoprolol(XL)Succ 25 MG Tablet 12.5 MG PO ×2 (05:25→17:41)
[2019-04-25] MEDS: Losartan Potassium 100 MG Tablet PO ×2 (05:25→17:38)
[2019-04-25] MEDS: Enoxaparin 40 MG/0.4 ML Syringe SC (05:25)
[2019-04-25] MEDS: Doxycycline 100 MG CAPSULE PO ×2 (05:25→17:38)
[2019-04-25] MEDS: Polyethylene Glycol 3350 17 GM PACKET PO (05:25)
[2019-04-25] MEDS: Levothyroxine 112 MCG Tablet PO (05:26)
[2019-04-25] MEDS: Furosemide 40 MG Tablet PO ×2 (05:26→13:09)
[2019-04-25] MEDS: LINAGLIPTIN 5 MG TABLET PO (05:26)
[2019-04-25] MEDS: Paroxetine 20 MG Tablet 40 MG PO (05:26)
[2019-04-25] MEDS: Nystatin Powder 15gm Bottle 1 APPLIC TOPICAL ×2 (05:28→19:47)
[2019-04-25] MEDS: Pantoprazole Sodium 40 MG Tablet PO (05:29)
[2019-04-25] MEDS: Menthol/Lanolin/Calamine/Znox 113 GM Tube 1 APPLIC TOPICAL ×2 (05:29→19:47)
[2019-04-25 06:46] LABS: Bedside Glucose 192 mg/dL (70-110)
[2019-04-25] MEDS: Allopurinol 100 MG Tablet PO (07:43)
[2019-04-25] MEDS: Insulin Lispro 100 UNIT/ML INSULN.PEN 17 UNIT SC ×3 (07:44→18:03)
[2019-04-25] MEDS: DULAGLUTIDE 1.5 MG/0.5 ML PEN.INJCTR SQ (10:59)
[2019-04-25 11:16] LABS: Bedside Glucose 238 mg/dL (70-110)
--- NOTE | 2019-04-25 12:06 | MDS.RN ---
Pain interview for owen 04/27/19 completed.
[2019-04-25 12:20] LABS: Bedside Glucose 152 mg/dL (70-110)
[2019-04-25 12:20] LABS: Bedside Glucose 142 mg/dL (70-110)
--- NOTE | 2019-04-25 13:26 | CASEMGMT ---
Social Work Phone call to [employer] for elevating leg rest as this is the distributor that carries the type of wheelchair pt has. [facility] states since pt did not receive wheelchair from this company they cannot bill insurance for the leg rest but pt can purchase the leg rest. Referral made to [facility] for hospital bed and bradford lift and they will be able to provide and deliver to pt home today. Referral made to Rebekah at [facility] for PT/OT/RN/STAFFING CONSULTANT/JENNIFER and they are able to accept with start of date on Sunday. JENNIFER left VM with [facility] regarding followup care. JENNIFER spoke with JOSELITO Israel about pt wound vac and she will assist with setting up home wound vac and is aware [facility] will not be able to start care and change wound vac until Sunday. Pt will need transportation home as he is non weightbearing and cannot transfer with the assist of bradford lift. Transportation arranged with [facility] for tile picker on 04/27/19 at 1300. Phone call to pt Mayda and all the above information provided. Plan: d/c home 04/27/19 with . [facility] PT/OT/SN/TRINIDAD/ANIL Hubbard
--- NOTE | 2019-04-25 14:47 | MDS.RN ---
Information for the mds was obtained from review of the clinical record, interview of resident, staff, and direct observation of resident's care.
[2019-04-25 15:02] VITALS: BP 130/64; PULSE 68; RESP 20; TEMP 36.5; O2SAT 96
[2019-04-25 17:01] LABS: Bedside Glucose 172 mg/dL (70-110)
[2019-04-25 17:41] VITALS: BP 130/64; PULSE 68
[2019-04-25] MEDS: Doxepin Hcl 25 MG Capsule PO (19:50)
[2019-04-25 21:16] LABS: Bedside Glucose 213 mg/dL (70-110)
[2019-04-26] MEDS: Glucerna Shake 120 ML LIQUID PO ×4 (05:06→20:44)
[2019-04-26] MEDS: Polyethylene Glycol 3350 17 GM PACKET PO (05:10)
[2019-04-26] MEDS: Enoxaparin 40 MG/0.4 ML Syringe SC (05:10)
[2019-04-26 05:11] VITALS: BP 161/84; PULSE 78
[2019-04-26] MEDS: Metoprolol(XL)Succ 25 MG Tablet 12.5 MG PO ×2 (05:11→18:16)
[2019-04-26] MEDS: Paroxetine 20 MG Tablet 40 MG PO (05:11)
[2019-04-26] MEDS: Furosemide 40 MG Tablet PO ×2 (05:12→13:22)
[2019-04-26] MEDS: Doxycycline 100 MG CAPSULE PO ×2 (05:12→18:16)
[2019-04-26] MEDS: Losartan Potassium 100 MG Tablet PO ×2 (05:13→18:16)
[2019-04-26] MEDS: Nystatin Powder 15gm Bottle 1 APPLIC TOPICAL ×2 (05:13→20:52)
[2019-04-26] MEDS: LINAGLIPTIN 5 MG TABLET PO (05:13)
[2019-04-26] MEDS: Pantoprazole Sodium 40 MG Tablet PO (05:13)
[2019-04-26] MEDS: Empagliflozin 25 MG Tablet PO (05:13)
[2019-04-26] MEDS: Menthol/Lanolin/Calamine/Znox 113 GM Tube 1 APPLIC TOPICAL ×2 (05:13→20:45)
[2019-04-26] MEDS: Levothyroxine 112 MCG Tablet PO (05:13)
[2019-04-26 06:46] LABS: Bedside Glucose 171 mg/dL (70-110)
[2019-04-26] MEDS: Allopurinol 100 MG Tablet PO (08:04)
[2019-04-26] MEDS: Insulin Lispro 100 UNIT/ML INSULN.PEN 17 UNIT SC ×3 (08:10→18:15)
[2019-04-26 10:50] LABS: Bedside Glucose 250 mg/dL (70-110)
[2019-04-26 15:13] VITALS: BP 129/67; PULSE 70; RESP 18; TEMP 36.8; O2SAT 97
[2019-04-26 16:51] LABS: Bedside Glucose 184 mg/dL (70-110)
[2019-04-26 18:16] VITALS: BP 129/67; PULSE 70
[2019-04-26 20:39] VITALS: PULSE 76; RESP 18; O2SAT 96
[2019-04-26] MEDS: Doxepin Hcl 25 MG Capsule PO (20:48)
[2019-04-26 21:30] LABS: Bedside Glucose 201 mg/dL (70-110)
[2019-04-27] MEDS: Polyethylene Glycol 3350 17 GM PACKET PO (05:02)
[2019-04-27] MEDS: Nystatin Powder 15gm Bottle 1 APPLIC TOPICAL (05:03)
[2019-04-27] MEDS: Glucerna Shake 120 ML LIQUID PO ×2 (05:04→11:21)
[2019-04-27] MEDS: Enoxaparin 40 MG/0.4 ML Syringe SC (05:05)
[2019-04-27 05:07] VITALS: BP 134/74; PULSE 72
[2019-04-27] MEDS: Losartan Potassium 100 MG Tablet PO (05:07)
[2019-04-27] MEDS: Paroxetine 20 MG Tablet 40 MG PO (05:07)
[2019-04-27] MEDS: Furosemide 40 MG Tablet PO (05:07)
[2019-04-27] MEDS: Metoprolol(XL)Succ 25 MG Tablet 12.5 MG PO (05:07)
[2019-04-27] MEDS: Pantoprazole Sodium 40 MG Tablet PO (05:07)
[2019-04-27] MEDS: Doxycycline 100 MG CAPSULE PO (05:07)
[2019-04-27] MEDS: Levothyroxine 112 MCG Tablet PO (05:07)
[2019-04-27] MEDS: LINAGLIPTIN 5 MG TABLET PO (05:07)
[2019-04-27] MEDS: Empagliflozin 25 MG Tablet PO (05:08)
[2019-04-27] MEDS: Menthol/Lanolin/Calamine/Znox 113 GM Tube 1 APPLIC TOPICAL (05:10)
[2019-04-27 06:46] LABS: Bedside Glucose 180 mg/dL (70-110)
[2019-04-27] MEDS: Allopurinol 100 MG Tablet PO (08:09)
[2019-04-27] MEDS: Insulin Lispro 100 UNIT/ML INSULN.PEN 17 UNIT SC (08:20)
[2019-04-27 10:00] VITALS: PULSE 80; RESP 18; O2SAT 98
[2019-04-27 10:51] LABS: Bedside Glucose 223 mg/dL (70-110)
--- NOTE | 2019-04-27 12:10 | NURSING ---
BS prior to lunch 223. Hold scheduled Humalog 17 units per Melinda YEE d/t pt refusing lunch meal.
[2019-04-27 13:23] VITALS: BP 147/78; PULSE 84; RESP 18; TEMP 36.4; O2SAT 94
--- NOTE | 2019-04-28 08:48 | CASEMGMT ---
Insurance Insurance notified of d/c on 04/27/19 with [facility]. Auth #[id number] ANIL Devries
== END 2019-04-27 13:20 | disposition home health service (06) | DRG 949 ==
PROVIDERS: Internal Medicine Infectious Disease; Admitting Provider Family Medicine Geriatric Medicine; Family Provider Family Medicine Geriatric Medicine; PCP Family Medicine Geriatric Medicine; Referring Provider Family Medicine Geriatric Medicine; Visit Provider Family Medicine Geriatric Medicine
DX: T81.49XD Infection following a procedure, other surgical site, subsequent encounter (principal); I50.32 Chronic diastolic (congestive) heart failure; Z68.41 Body mass index [BMI] 40.0-44.9, adult; L08.9 Local infection of the skin and subcutaneous tissue, unspecified; B95.62 Methicillin resistant Staphylococcus aureus infection as the cause of diseases classified elsewhere; Y83.8 Other surgical procedures as the cause of abnormal reaction of the patient, or of later complication, without mention of misadventure at the time of the procedure; K21.9 Gastro-esophageal reflux disease without esophagitis; E78.5 Hyperlipidemia, unspecified; E03.9 Hypothyroidism, unspecified; I11.0 Hypertensive heart disease with heart failure; G47.33 Obstructive sleep apnea (adult) (pediatric); M19.90 Unspecified osteoarthritis, unspecified site; M10.9 Gout, unspecified; E11.42 Type 2 diabetes mellitus with diabetic polyneuropathy; B35.4 Tinea corporis; F32.9 Major depressive disorder, single episode, unspecified; E87.6 Hypokalemia; S82.831D Other fracture of upper and lower end of right fibula, subsequent encounter for closed fracture with routine healing; S82.101D Unspecified fracture of upper end of right tibia, subsequent encounter for closed fracture with routine healing; X58.XXXD Exposure to other specified factors, subsequent encounter; E66.01 Morbid (severe) obesity due to excess calories; Z71.3 Dietary counseling and surveillance; Z77.090 Contact with and (suspected) exposure to asbestos; Z87.891 Personal history of nicotine dependence
CPT/HCPCS: 36415; 71046; 74019; 80048; 80076; 80202; 81001; 82550; 82962; 85025; 85652; 87086; 97110; 97163; 97166; 97530; 97535; 97802; J0878; J2997; J7030; J7040; J7050; A4216; J0712; J3490

== ENCOUNTER 2019-05-12 10:15 | Outpatient (RCR) | payer MEDICARE, SELFPAY ==
[2019-05-12 12:06] VITALS: BP 139/63; PULSE 60; RESP 16; TEMP 36.6; BMI 35.9
--- NOTE | 2019-05-12 23:32 | PN.PCM_ITS ---
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 History of Wound: Surgery 03/05/19 - Surgical preparation right proximal lateral leg with incision and drainage and excisional debridement nonhealing necrotic MRSA ulcer with exposed hardware (105 cm2). Wound care - VAC. Operative culture - MRSA. He was placed on Vancomycin and Rifampin. He has finished the Vancomycin. Prealbumin from 03/06/19 was 14.2. Encourage nutritional supplementation with protein to help the healing process. HgbA1c from 01/29/[address] right leg on 03/04/19 showed the patient is status post medial femoral tibial hemiarthroplasty. The patient is status post open reduction and internal fixation of the proximal tibial plateau fracture with medial placement of screws and sideplate fixation device. There is good alignment. No significant healing of the fracture line is present. Healing fracture of the proximal neck of the fibula.. Today he denies fever. His appetite is good. Progress of Wound: Improved. - Physical Exam Vital Signs Temp Pulse Resp BP 97.8 F 60 16 139/63 H 05/12/19 12:06 05/12/19 12:06 05/12/19 12:06 05/12/19 12:06 Wound Measurements and Assessment WC - Nurse 1 - General Ulcer Measurement Start: 05/12/19 12:06 Freq: Status: Active Protocol: Activity Type Activity Date Activity User E-Sign Co-Sign Detail Recorded Client Recorded Date Recorded By Document 05/12/19 12:06 [id number] 05/12/19 12:27 BS 05/12/19 12:06 Wound Center Nurse 1 [Ulcer Assessment] #3 RLE Lateral -Combined with other wound No -Current Size (cm) - Length 13.5 -Current Size (cm) - Width 5.6 -Current Size (cm) - Depth 0.1 -Total Square Cm 75.60 -Date of Last Picture (Recall this 05/12/19 field) -Photo Taken Yes -Tunneling No -Undermining/Tunneling No -Circular Undermining No -Classification - Thickness Full Thickness without Exposed Support Structure -Exudate Amt Large -Exudate Type Serosanguineous -Wound Margin Flat & Intact -Granulation Amt Large (67-100%) -Granulation Quality Red -Slough/Fibrin Yes -Necrosis Amt Small (1-33%) -Necrotic Tissue Type Adherent Slough -Structure Exposed N/A -Texture (Bria-wound Skin Appearance) Assessed, Localized Edema -Moisture (Bria-wound Skin Appearance Assessed,Dry/ ) Scaly -Color (Bria-wound Skin Appearance) Assessed, Hemosiderin Staining -Temperature (Bria-wound Skin Cool/Cold Appearance) -Tenderness on Palpation (Bria-wound No Skin Appearance) -Ulcer Cleansing Rinsed/ Irrigated with Saline -Foul Odor after Cleansing No -Anesthetic Used 4% Lidocaine Solution [Edema Assessment] -Lower Limb Edema Present Yes -Point of measurement (cm from the 38.0 medial instep) -Point of Measurement (cm from the 24.0 medial instep) -Point of measurement (cm from the 37.5 medial instep) -Point of Measurement (cm from the 22.5 medial instep) WC - Nurse 2 - General Ulcer CM Notes Start: 05/12/19 12:06 Freq: Status: Active Protocol: Activity Type Activity Date Activity User E-Sign Co-Sign Detail Recorded Client Recorded Date Recorded By Document 05/12/19 13:23 [id number] 05/12/19 13:28 05/12/19 13:23 Wound Center Nurse 2 [Procedure/Treatment] #3 RLE Lateral -Time 13:23 -Correct Patient Yes -Correct Side, Site, Position Yes -Correct Procedure Yes -Procedure Performed Yes -Type of Procedure Debridement -Clinical Debridement Subcutaneous -Post Debridement Size (cm) - Length 13.5 -Post Debridement Size (cm) - Width 5.7 -Post Debridement Size (cm) - Depth 0.1 -Total Square Cm 76.95 -Wound/Ulcer Outcome Not Healed -Ulcer Cleansing Rinsed/ Irrigated with Saline -Foul Odor after Cleansing No -Bioengineered Tissue No -Bleeding Controlled with Pressure -Offloading No -Treatment Response Procedure Tolerated Well [See Physician Procedure note for Specifics] Pain Scale: 0-10 Numeric [Pain] -Is Patient Pain Free? Yes Debridement Note Post-Debridement Measurements/Treatment WC - Nurse 2 - General Ulcer CM Notes Start: 05/12/19 12:06 Freq: Status: Active Protocol: Activity Type Activity Date Activity User E-Sign Co-Sign Detail Recorded Client Recorded Date Recorded By Document 05/12/19 13:23 [id number] 05/12/19 13:28 05/12/19 13:23 Wound Center Nurse 2 #3 RLE Lateral -Time 13:23 -Correct Patient Yes -Correct Side, Site, Position Yes -Correct Procedure Yes -Procedure Performed Yes -Type of Procedure Debridement -Clinical Debridement Subcutaneous -Post Debridement Size (cm) - Length 13.5 -Post Debridement Size (cm) - Width 5.7 -Post Debridement Size (cm) - Depth 0.1 -Total Square Cm 76.95 -Wound/Ulcer Outcome Not Healed -Ulcer Cleansing Rinsed/ Irrigated with Saline -Foul Odor after Cleansing No -Bioengineered Tissue No -Bleeding Controlled with Pressure -Offloading No -Treatment Response Procedure Tolerated Well Pain Scale: 0-10 Numeric Is Patient Pain Free? Yes Wound debrided: #3 Right proximal lateral leg. Laterality: Right Wound Grade/Stage: 4. Type of Debridement: Excisional debridement Anesthesia Used: 4% Lidocaine Solution Depth: Down to and including healthy tissue, in the subcutaneous layer Percentage of wound debrided: 100 Instrument Used: 7mm curette Tissue Removed: subcutaneous tissue. Severity: Fat Layer Exposed Amount of bleeding with debridement: Mild Bleeding Controlled with: Pressure Patient tolerated procedure well, - - The previous exposed hardware and bone has been covered with granulation tissue. Assessment/Plan Assessment: 1. 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 2. Recent history of ORIF right tibial plateau fracture. 3. MRSA. 4. MRSA bacteremia. 5. Diabetes mellitus. 6. Status right knee replacement, medial compartment. 7. Fall. 8. Exposed hardware right proximal lateral leg from tibial plateau fracture repair. 9. s/p surgical preparation right proximal lateral leg with incision and drainage and excisional debridement nonhealing necrotic MRSA ulcer with exposed hardware (105 cm2). Plan: VAC is in place. Good granulation tissue is seen. The exposed plate and screws has been covered with granulation tissue. Operative culture shows MRSA. 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 Prealbumin was 14.2. Encourage nutritional supplementation with protein to help the healing process. HgbA1c from 01/29/19 was 6.8. Any elective skin graft or flap that is done needs to have a HgbA1c less than 8. Will discuss with Dr. Rutledge to see if the exposed hardware needs to be removed or if we can proceed with debridement and skin grafting. With the improvement in the ulcer, and granulation tissue covering the bone and hardware, may be able to proceed with debridement and skin grafting. If not succesful, then can proceed with a lateral gastrocnemius muscle flap to cover the exposed bone and hardware followed by skin grafting over the muscle. If a muscle flap is needed, will need to biopsy the bone to make sure there is no osteomyelitis present that can complicate healing. If bony healing becomes problematic, the last resort option would be an above knee amputation. Patient and his voice understanding. Will check an x-ray preop to look for any bony abnormalities. Patient was informed of the risks and complications of the procedure including alternatives to surgery. These were discussed with him personally. He voices understanding and wishes to proceed.
== END 2019-05-18 23:59 ==
LOC: WC 10:15
PROVIDERS: Family Provider Family Medicine Geriatric Medicine; PCP Family Medicine Geriatric Medicine; Visit Provider Surgery
DX: E11.622 Type 2 diabetes mellitus with other skin ulcer (principal); Z86.14 Personal history of Methicillin resistant Staphylococcus aureus infection; S82.141S Displaced bicondylar fracture of right tibia, sequela; X58.XXXS Exposure to other specified factors, sequela; L97.812 Non-pressure chronic ulcer of other part of right lower leg with fat layer exposed
CPT/HCPCS: 11042; 11045; 99213; G0463

== ENCOUNTER → 2019-05-27 11:22 | Outpatient (CLI) | payer MEDICARE, SELFPAY ==
[2019-05-12 12:06] VITALS: BMI 35.9
--- NOTE | 2019-05-27 12:48 | RAD_ITS ---
HISTORY: TIBIAL PLATEAU FX WITH HISTORY OF EXPOSED PLATE ADDITIONAL HISTORY: None provided. COMPARISON: 01/29/2019 TECHNIQUE: 2 views of the right tibia-fibula Number of images including paperwork: 3 FINDINGS: BONES: Callus formation is noted at the fracture sites of the proximal fibula and tibial plateau with fracture line still partially visualized. Laterally applied plate and multiple screws are seen transfixing the proximal tibia. JOINTS: No subluxation. Medial compartment left knee arthroplasty is noted with some adjacent lucency on the frontal view, evaluation not possible due to projection. SOFT TISSUES: No distinct foreign body. RAD/Tibia & Fibula 2 Views IMPRESSION: 1. Healing right proximal tibia and fibula fractures. 2. Some lucency is noted adjacent to the femoral component of left medial compartment knee arthroplasty, limited in evaluation due to projection. Recommend dedicated knee radiographs for further evaluation. at 0330 Reported and signed by: Shelly Lan MD Electronically Signed: Shelly Lan MD at 3:30 EDT Tel , Service support ,
[2019-05-27 12:55] LABS: Absolute Lymphocyte Count 3.24 X10^3/ul (0.83-4.51); Absolute Neutrophil Count 3.8 X10^3/uL (2.0-7.7); Basophil# 0.04 X10^3/uL; Basophil% 0.5 % (0-1); Eosinophils% 3.7 % (0-5); Hematocrit 42.4 % (40-54); Hemoglobin 13.5 g/dl (13.0-16.5); Lymphocyte # 3.24 X10^3/ul (4.0); Lymphocyte % 39.5 % (19-41); Mean Corp Hgb Conc 31.8 g/gl (32-36); Mean Corpuscular Hgb 27.7 pg (27.0-32.0); Mean Corpuscular Volume 86.9 fL (80-94); Mean Platelet Vol. 9.7 fl (6.2-12.0); Monocyte% 9.8 % (0-10); Neutrophil # 3.81 X10^3/uL (2.7-7.7); Neutrophil % 46.4 % (47-70); Platelet Count 429 K/mm3 (150-450); RBC Distribution Width CV 16.1 % (11.6-14.6); RBC Distribution Width SD 51.2 fl (35.1-43.9); Red Blood Count 4.88 M/mm3 (4.6-6.2); White Blood Count 8.2 K/mm3 (4.4-11.0)
[2019-05-27 12:57] LABS: POSITIVE COUNT NO; POSITIVE DIFFERENTIAL NO; POSITIVE MORPHOLOGY NO
[2019-05-27 13:00] LABS: Vitamin D,25 Hydroxy 35.2 ng/mL (29.95-100.01)
[2019-05-27 13:07] LABS: ALB/GLOB Ratio 0.7 RATIO (0.9-2.4); AST(SGOT) 16 U/L (15-37); Alanine Aminotransfer ALT/SGPT 13 U/L (16-61); Albumin, Serum 3.1 g/dL (3.2-5.0); Alkaline Phosphatase 117 U/L (45-117); Anion Gap 5 (5-15); BUN 38 mg/dL (7-18); BUN/Creat Ratio 29.7 RATIO (10-20); Calcium,Total 9.2 mg/dL (8.5-10.1); Chloride 100 mmol/L (98-107); Creatinine, Serum 1.28 mg/dL (0.70-1.30); EST Glomerular Filtration Rate 58 mL/min (>60); Est Glom Filt Rate - Afr Amer 71 mL/min (>60); Globulin 4.5 g/dL (2.2-4.2); Glucose 95 mg/dL (74-106); Potassium 3.9 mmol/L (3.5-5.1); Protein, Total 7.6 g/dL (6.4-8.2); Sodium Level 136 mmol/L (136-145); Thyroid Stim Hormone (TSH) 2.67 uIU/mL (0.358-3.74); Uric Acid 6.8 mg/dL (3.5-7.2)
== END ==
PROVIDERS: Family Provider Family Medicine Geriatric Medicine; PCP Family Medicine Geriatric Medicine; Referring Provider Family Medicine Geriatric Medicine; Visit Provider Family Medicine Geriatric Medicine
DX: E11.9 Type 2 diabetes mellitus without complications (principal); E55.9 Vitamin D deficiency, unspecified; I10 Essential (primary) hypertension; M10.9 Gout, unspecified; S82.101A Unspecified fracture of upper end of right tibia, initial encounter for closed fracture; Z87.81 Personal history of (healed) traumatic fracture
CPT/HCPCS: 36415; 73590; 80053; 82306; 84443; 84550; 85025

== ENCOUNTER 2019-06-16 11:30 | Outpatient (RCR) | payer MEDICARE, SELFPAY ==
[2019-05-19 01:09] VITALS: BP 139/63; PULSE 60; RESP 16; TEMP 36.6
[2019-06-02 08:50] VITALS: BP 118/70; PULSE 76; RESP 18; TEMP 36.2; BMI 35.9
--- NOTE | 2019-06-02 14:28 | PCM.WC.PN ---
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 History of Wound: Surgery 03/05/19 - Surgical preparation right proximal lateral leg with incision and drainage and excisional debridement nonhealing necrotic MRSA ulcer with exposed hardware (105 cm2). Wound care - VAC. Operative culture - MRSA. He was placed on Vancomycin and Rifampin. He has finished the Vancomycin. Prealbumin from 03/06/19 was 14.2. Encourage nutritional supplementation with protein to help the healing process. HgbA1c from 01/29/[address] right leg on 03/04/19 showed the patient is status post medial femoral tibial hemiarthroplasty. The patient is status post open reduction and internal fixation of the proximal tibial plateau fracture with medial placement of screws and sideplate fixation device. There is good alignment. No significant healing of the fracture line is present. Healing fracture of the proximal neck of the fibula. Today he denies fever. His appetite is good. It was recently noted that a bony prominence anteriorly has developed an ulceration. pita knee amputation. Patient and his voice understanding. X-ray was done on 05/27/19. It showed healing right proximal tibia and fibula fractures. Some lucency is noted adjacent to the femoral component of left medial compartment knee arthroplasty, limited in evaluation due to projection. Recommend dedicated knee radiographs for further evaluation. Progress of Wound: Improved. - Physical Exam Vital Signs Temp Pulse Resp BP 97.1 F L 76 18 118/70 06/02/19 08:50 06/02/19 08:50 06/02/19 08:50 06/02/19 08:50 Wound Measurements and Assessment WC - Nurse 1 - General Ulcer Measurement Start: 06/02/19 08:50 Freq: Status: Active Protocol: Activity Type Activity Date Activity User E-Sign Co-Sign Detail Recorded Client Recorded Date Recorded By Document 06/02/19 08:50 RB [id number] 06/02/19 08:53 RB 06/02/19 08:50 Wound Center Nurse 1 [Ulcer Assessment] #3 RLE Lateral -Combined with other wound No -Current Size (cm) - Length 13.2 -Current Size (cm) - Width 4.6 -Current Size (cm) - Depth 0.2 -Total Square Cm 60.72 -Photo Taken No -Tunneling No -Undermining/Tunneling No -Circular Undermining No -Exudate Amt Large -Exudate Type Serosanguineous -Wound Margin Flat & Intact -Granulation Amt Large (67-100%) -Granulation Quality Kendrick -Slough/Fibrin Yes -Necrosis Amt Small (1-33%) -Necrotic Tissue Type Adherent Slough -Structure Exposed N/A -Texture (Bria-wound Skin Appearance) Assessed -Moisture (Bria-wound Skin Appearance Assessed ) -Color (Bria-wound Skin Appearance) Assessed, Hemosiderin Staining,Rubor -Temperature (Bria-wound Skin No Abnormality Appearance) (Pt Warm) -Tenderness on Palpation (Bria-wound No Skin Appearance) -Ulcer Cleansing Wound Cleanser -Foul Odor after Cleansing No -Anesthetic Used 4% Lidocaine Solution [Edema Assessment] -Lower Limb Edema Present Yes -Right Calf (cm) 37.5 -Right Ankle (cm) 22.5 Debridement Note #3 Right proximal lateral leg. Subcutaneous debridement. Post-debridement measurements - 13 x 5 x 0.1 cm or 65 cm2. Tolerated well. Hemostasis obtained with gentle pressure. Wound dressed with Aquacel Silver. Wound debrided: #3 Right proximal lateral leg. Laterality: Right Wound Grade/Stage: 4. Type of Debridement: Excisional debridement Anesthesia Used: 4% Lidocaine Solution Depth: Down to and including healthy tissue, in the subcutaneous layer Percentage of wound debrided: 100 Instrument Used: 7mm curette Tissue Removed: subcutaneous tissue. Severity: Fat Layer Exposed Amount of bleeding with debridement: Mild Bleeding Controlled with: Pressure Patient tolerated procedure well, - - The previous exposed hardware and bone has been covered with granulation tissue. A wound culture was obtained today. Assessment/Plan Assessment: 1. 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 2. Recent history of ORIF right tibial plateau fracture. 3. MRSA. 4. MRSA bacteremia. 5. Diabetes mellitus. 6. Status right knee replacement, medial compartment. 7. Fall. 8. Exposed hardware right proximal lateral leg from tibial plateau fracture repair. 9. s/p surgical preparation right proximal lateral leg with incision and drainage and excisional debridement nonhealing necrotic MRSA ulcer with exposed hardware (105 cm2). 10. Nonhealing ulcer anterior knee/proximal leg. Plan: Will change to Aquacel Silver dressing changes daily. Good granulation tissue is seen. The exposed plate and screws has been covered with granulation tissue. Operative culture shows MRSA. 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 He has a new onset ulceration adjacent to the existing ulceration. It is on the anterior knee/proximal leg. There is exposed bone. A wound culture was obtained today. A positive culture will necessitate antibiotic therapy. Prealbumin was 14.2. Encourage nutritional supplementation with protein to help the healing process. HgbA1c from 01/29/19 was 6.8. Any elective skin graft or flap that is done needs to have a HgbA1c less than 8. Will discuss with Dr. Rutledge to see if the exposed hardware needs to be removed or if we can proceed with debridement and skin grafting. With the improvement in the ulcer, and granulation tissue covering the bone and hardware, may be able to proceed with debridement and skin grafting. If not succesful, then can proceed with a lateral gastrocnemius muscle flap to cover the exposed bone and hardware followed by skin grafting over the muscle. If a muscle flap is needed, will need to biopsy the bone to make sure there is no osteomyelitis present that can complicate healing. If bony healing becomes problematic, the last resort option would be an above knee amputation. Patient and his voice understanding. X-ray was done on 05/27/19. It showed healing right proximal tibia and fibula fractures. Some lucency is noted adjacent to the femoral component of left medial compartment knee arthroplasty, limited in evaluation due to projection. Recommend dedicated knee radiographs for further evaluation.. Patient was informed of the risks and complications of the procedure including alternatives to surgery. These were discussed with him personally. He voices understanding and wishes to proceed. Followup 2 weeks.
[2019-06-16 12:11] VITALS: BP 145/65; PULSE 59; RESP 18; TEMP 36.2; BMI 35.9
--- NOTE | 2019-06-16 18:18 | PN.PCM_ITS ---
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 History of Wound: Surgery 03/05/19 - Surgical preparation right proximal lateral leg with incision and drainage and excisional debridement nonhealing necrotic MRSA ulcer with exposed hardware (105 cm2). Wound care - Silver. Operative culture - MRSA. He was placed on Vancomycin and Rifampin. He has finished the Vancomycin. Prealbumin from 03/06/19 was 14.2. Encourage nutritional supplementation with protein to help the healing process. HgbA1c from 01/29/[address] right leg on 03/04/19 showed the patient is status post medial femoral tibial hemiarthroplasty. The patient is status post open reduction and internal fixation of the proximal tibial plateau fracture with medial placement of screws and sideplate fixation device. There is good alignment. No significant healing of the fracture line is present. Healing fracture of the proximal neck of the fibula. Today he denies fever. His appetite is good. It was recently noted that a bony prominence anteriorly has developed an ulceration. X-ray was done on 05/27/19. It showed healing right proximal tibia and fibula fractures. Some lucency is noted adjacent to the femoral component of left medial compartment knee arthroplasty, limited in evaluation due to projection. Recommend dedicated knee radiographs for further evaluation. A wound culture was done on 06/02/19. It showed VRE, Klebsiella pneumoniae, and Anaerobic cocci. He was started on Augmentin and Levaquin. Progress of Wound: Improved. - Physical Exam Vital Signs Temp Pulse Resp BP 97.1 F L 59 L 18 145/65 H 06/16/19 12:11 06/16/19 12:11 06/16/19 12:11 06/16/19 12:11 Debridement Note Post-Debridement Measurements/Treatment WC - Nurse 2 - General Ulcer CM Notes Start: 06/02/19 08:50 Freq: Status: Active Protocol: Activity Type Activity Date Activity User E-Sign Co-Sign Detail Recorded Client Recorded Date Recorded By Document 06/02/19 09:35 MW [id number] 06/03/19 12:37 MW Document 06/16/19 12:56 MW [id number] 06/16/19 13:06 MW 06/02/19 06/16/19 09:35 12:56 Wound Center Nurse 2 #4 right knee -Time 13:01 -Correct Patient Yes -Correct Side, Site, Position Yes -Correct Procedure Yes -Procedure Performed Yes -Type of Procedure Debridement -Clinical Debridement Subcutaneous -Post Debridement Size (cm) - Length 0.6 -Post Debridement Size (cm) - Width 1.0 -Post Debridement Size (cm) - Depth 0.1 -Total Square Cm 0.60 -Wound/Ulcer Outcome Not Healed -Ulcer Cleansing Rinsed/ Irrigated with Saline -Foul Odor after Cleansing No -Bioengineered Tissue No -Bleeding Controlled with Pressure -Offloading No -Treatment Response Procedure Tolerated Well #3 RLE Lateral -Time 09:35 12:56 -Correct Patient Yes Yes -Correct Side, Site, Position Yes Yes -Correct Procedure Yes Yes -Procedure Performed Yes Yes -Type of Procedure Debridement Debridement -Clinical Debridement Subcutaneous Subcutaneous -Post Debridement Size (cm) - Length 13.0 12.5 -Post Debridement Size (cm) - Width 5.0 4.5 -Post Debridement Size (cm) - Depth 0.1 0.1 -Total Square Cm 65.00 56.25 -Wound/Ulcer Outcome Not Healed Not Healed -Ulcer Cleansing Rinsed/ Rinsed/ Irrigated with Irrigated with Saline Saline -Foul Odor after Cleansing No No -Bioengineered Tissue No No -Bleeding Controlled with Pressure Pressure -Offloading No No -Treatment Response Procedure Procedure Tolerated Well Tolerated Well Pain Scale: 0-10 Numeric Is Patient Pain Free? Yes Yes Wound debrided: #3 Right proximal lateral leg. Laterality: Right Wound Grade/Stage: 4. Type of Debridement: Excisional debridement Anesthesia Used: 4% Lidocaine Solution Depth: Down to and including healthy tissue, in the subcutaneous layer Percentage of wound debrided: 100 Instrument Used: 5mm curette Tissue Removed: subcutaneous tissue. Severity: Fat Layer Exposed Amount of bleeding with debridement: Mild Bleeding Controlled with: Pressure Patient tolerated procedure well - Additional Wound Wound debrided: #4 Right anterior knee/proximal leg. Laterality: Right Wound Grade/Stage: 4. Type of Debridement: Excisional debridement Anesthesia Used: 4% Lidocaine Solution Depth: Down to and including healthy tissue, in the subcutaneous layer, to bone - bone is exposed but not debrided. Percentage of wound debrided: 100 Instrument Used: 3mm curette Tissue Removed: subcutaneous tissue. Severity: Fat Layer Exposed - bone is exposed but not debrided. Amount of bleeding with debridement: Mild Bleeding Controlled with: Pressure Patient tolerated procedure: Patient tolerated procedure well Assessment/Plan Assessment: 1. 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 2. Recent history of ORIF right tibial plateau fracture. 3. MRSA. 4. MRSA bacteremia. 5. Diabetes mellitus. 6. Status right knee replacement, medial compartment. 7. Fall. 8. Exposed hardware right proximal lateral leg from tibial plateau fracture repair. 9. s/p surgical preparation right proximal lateral leg with incision and drainage and excisional debridement nonhealing necrotic MRSA ulcer with exposed hardware (105 cm2). 10. VRE. 11. Nonhealing ulcer right anterior knee/proximal leg. Plan: Continue Aquacel Silver dressing changes daily. Stop the VAC. Good granulation tissue is seen. The exposed plate and screws has been covered with granulation tissue. Operative culture shows MRSA. 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 He has a new onset ulceration adjacent to the existing ulceration. It is on the anterior knee/proximal leg. There is exposed bone. A wound culture was done on 06/02/19. It showed VRE, Klebsiella pneumoniae, and Anaerobic cocci. He was put on Augmentin and Levaquin. Prealbumin was 14.2. Encourage nutritional supplementation with protein to help the healing process. HgbA1c from 01/29/19 was 6.8. Any elective skin graft or flap that is done needs to have a HgbA1c less than 8. Discussed with Dr. Rutledge. He recommends that the patient's best chance for limb salvage is to leave the hardware in. So we can proceed with skin grafting or muscle flap depending on the new onset ulcer on the anterior knee/proximal leg developing granulation tissue over the bone. With the improvement in the ulcer, and granulation tissue covering the bone and hardware, may be able to proceed with debridement and skin grafting. If not succesful, then can proceed with a lateral gastrocnemius muscle flap to cover the exposed bone and hardware followed by skin grafting over the muscle. If a muscle flap is needed, will need to biopsy the bone to make sure there is no osteomyelitis present that can complicate healing. If bony healing becomes problematic, the last resort option would be an above knee amputation. Patient and his voice understanding. X-ray was done on 05/27/19. It showed healing right proximal tibia and fibula fractures. Some lucency is noted adjacent to the femoral component of left medial compartment knee arthroplasty, limited in evaluation due to projection. Recommend dedicated knee radiographs for further evaluation. Patient was informed of the risks and complications of the procedure including alternatives to surgery. These were discussed with him personally. He voices understanding and wishes to proceed. Followup 2 weeks.
== END 2019-06-18 23:59 ==
LOC: WC 11:30
PROVIDERS: Family Provider Family Medicine Geriatric Medicine; PCP Family Medicine Geriatric Medicine; Visit Provider Surgery
DX: E11.622 Type 2 diabetes mellitus with other skin ulcer (principal); L97.812 Non-pressure chronic ulcer of other part of right lower leg with fat layer exposed; Z86.14 Personal history of Methicillin resistant Staphylococcus aureus infection; S82.141S Displaced bicondylar fracture of right tibia, sequela; X58.XXXS Exposure to other specified factors, sequela
CPT/HCPCS: 11042; 11045; 87070; 87075; 87077; 87186; 87205

== ENCOUNTER → 2019-06-27 17:03 | Outpatient (CLI) | payer MEDICARE, SELFPAY ==
[2019-06-16 12:11] VITALS: BMI 35.9
[2019-06-27 18:25] LABS: Color, Urine Yellow (Yellow); Glucose, Dipstick 1000 mg/dl (Normal); Ketone-Dipstick Negative (Negative); Leukocyte Esterase-Dipstick 100 /ul (Negative); Nitrite-Dipstick Negative (Negative); Occult Blood-Urine Negative /ul (Negative); Protein-Dipstick 15 mg/dl (Negative); Specific Gravity, Urine 1.015 (1.002-1.030); Urine Bilirubin Dipstick Negative (Negative); Urine Clarity Clear (Clear); Urine Urobilinogen Normal (Normal)
== END ==
PROVIDERS: Family Provider Family Medicine Geriatric Medicine; PCP Family Medicine Geriatric Medicine; Referring Provider Family Medicine Geriatric Medicine; Visit Provider Family Medicine Geriatric Medicine
DX: R31.9 Hematuria, unspecified (principal)
CPT/HCPCS: 81002; 87086; 87088

== ENCOUNTER 2019-07-07 10:40 | Outpatient (RCR) | payer MEDICARE, SELFPAY ==
[2019-06-19 01:03] VITALS: BP 145/65; PULSE 59; RESP 18; TEMP 36.2
[2019-07-07 13:19] VITALS: BP 129/69; PULSE 63; RESP 16; TEMP 35.7; BMI 35.9
--- NOTE | 2019-07-07 22:40 | PN.PCM_ITS ---
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 History of Wound: Surgery 03/05/19 - Surgical preparation right proximal lateral leg with incision and drainage and excisional debridement nonhealing necrotic MRSA ulcer with exposed hardware (105 cm2). Wound care - Silver. Operative culture - MRSA. He was placed on Vancomycin and Rifampin. He has finished the Vancomycin. Prealbumin from 03/06/19 was 14.2. Encourage nutritional supplementation with protein to help the healing process. HgbA1c from 01/29/[address] right leg on 03/04/19 showed the patient is status post medial femoral tibial hemiarthroplasty. The patient is status post open reduction and internal fixation of the proximal tibial plateau fracture with medial placement of screws and sideplate fixation device. There is good alignment. No significant healing of the fracture line is present. Healing fracture of the proximal neck of the fibula. Today he denies fever. His appetite is good. It was recently noted that a bony prominence anteriorly has developed an ulceration. X-ray was done on 05/27/19. It showed healing right proximal tibia and fibula fractures. Some lucency is noted adjacent to the femoral component of left medial compartment knee arthroplasty, limited in evaluation due to projection. Recommend dedicated knee radiographs for further evaluation. A wound culture was done on 06/02/19. It showed VRE, Klebsiella pneumoniae, and Anaerobic cocci. He was started on Augmentin and Levaquin. Progress of Wound: Improved. - Physical Exam Vital Signs Temp Pulse Resp BP 96.2 F L 63 16 129/69 H 07/07/19 13:19 07/07/19 13:19 07/07/19 13:19 07/07/19 13:19 Wound Measurements and Assessment WC - Nurse 1 - General Ulcer Measurement Start: 07/07/19 13:19 Freq: Status: Active Protocol: Activity Type Activity Date Activity User E-Sign Co-Sign Detail Recorded Client Recorded Date Recorded By Document 07/07/19 13:19 MW [id number] 07/07/19 13:36 MW 07/07/19 13:19 Wound Center Nurse 1 [Ulcer Assessment] #4 right knee -Combined with other wound No -Current Size (cm) - Length 0.1 -Current Size (cm) - Width 0.1 -Current Size (cm) - Depth 0.1 -Total Square Cm 0.01 -Date of Last Picture (Recall this 07/07/19 field) -Photo Taken Yes -Epithelialization Small 1-33% -Tunneling No -Undermining/Tunneling No -Circular Undermining No -Exudate Amt None Present -Wound Margin Flat & Intact -Granulation Amt None Present (0 %) -Granulation Quality N/A -Slough/Fibrin Yes -Necrosis Amt Large (67-100%) -Necrotic Tissue Type Adherent Slough -Structure Exposed N/A -Texture (Bria-wound Skin Appearance) Assessed, Localized Edema ,Scarring -Moisture (Bria-wound Skin Appearance Assessed,Dry/ ) Scaly -Color (Bria-wound Skin Appearance) No Abnormality, Rubor -Temperature (Bria-wound Skin No Abnormality Appearance) (Pt Warm) -Tenderness on Palpation (Bria-wound No Skin Appearance) -Ulcer Cleansing SOAP AND WATER -Foul Odor after Cleansing No -Anesthetic Used 4% Lidocaine Solution #3 RLE Lateral -Combined with other wound No -Current Size (cm) - Length 11.5 -Current Size (cm) - Width 3.4 -Current Size (cm) - Depth 0.1 -Total Square Cm 39.10 -Date of Last Picture (Recall this 07/07/19 field) -Photo Taken Yes -Epithelialization Small 1-33% -Tunneling No -Undermining/Tunneling No -Circular Undermining No -Exudate Amt Medium -Exudate Type Serosanguineous -Wound Margin Flat & Intact -Granulation Amt Large (67-100%) -Granulation Quality [employer] -Slough/Fibrin Yes -Necrosis Amt Small (1-33%) -Necrotic Tissue Type Adherent Slough -Structure Exposed N/A -Texture (Bria-wound Skin Appearance) Assessed, Localized Edema ,Scarring -Moisture (Bria-wound Skin Appearance Assessed,Dry/ ) Scaly -Color (Bria-wound Skin Appearance) Assessed,Rubor -Temperature (Bria-wound Skin No Abnormality Appearance) (Pt Warm) -Tenderness on Palpation (Bria-wound No Skin Appearance) -Ulcer Cleansing SOAP AND WATER -Foul Odor after Cleansing No -Anesthetic Used 4% Lidocaine Solution [Edema Assessment] -Lower Limb Edema Present Yes -Right Calf (cm) 37.5 -Right Ankle (cm) 22.5 WC - Nurse 2 - General Ulcer CM Notes Start: 07/07/19 13:19 Freq: Status: Active Protocol: Activity Type Activity Date Activity User E-Sign Co-Sign Detail Recorded Client Recorded Date Recorded By Document 07/07/19 13:42 ETHAN [id number] 07/07/19 13:45 ETHAN 07/07/19 13:42 Wound Center Nurse 2 [Procedure/Treatment] #4 right knee -Time 13:42 -Correct Patient Yes -Correct Side, Site, Position Yes -Correct Procedure Yes -Procedure Performed Yes -Type of Procedure Debridement -Clinical Debridement Subcutaneous -Post Debridement Size (cm) - Length 0.4 -Post Debridement Size (cm) - Width 0.2 -Post Debridement Size (cm) - Depth 0.2 -Total Square Cm 0.08 -Wound/Ulcer Outcome Not Healed -Ulcer Cleansing Rinsed/ Irrigated with Saline -Foul Odor after Cleansing No -Bioengineered Tissue No -Bleeding Controlled with Pressure -Offloading No -Treatment Response Procedure Tolerated Well #3 RLE Lateral -Time 13:42 -Correct Patient Yes -Correct Side, Site, Position Yes -Correct Procedure Yes -Procedure Performed Yes -Type of Procedure Debridement -Clinical Debridement Subcutaneous -Post Debridement Size (cm) - Length 11.5 -Post Debridement Size (cm) - Width 3.5 -Post Debridement Size (cm) - Depth 0.1 -Total Square Cm 40.25 -Wound/Ulcer Outcome Not Healed -Ulcer Cleansing Rinsed/ Irrigated with Saline -Foul Odor after Cleansing No -Bioengineered Tissue No -Bleeding Controlled with Pressure -Offloading No -Treatment Response Procedure Tolerated Well [See Physician Procedure note for Specifics] Pain Scale: 0-10 Numeric [Pain] -Is Patient Pain Free? Yes Debridement Note Post-Debridement Measurements/Treatment WC - Nurse 2 - General Ulcer CM Notes Start: 07/07/19 13:19 Freq: Status: Active Protocol: Activity Type Activity Date Activity User E-Sign Co-Sign Detail Recorded Client Recorded Date Recorded By Document 07/07/19 13:42 ETHAN [id number] 07/07/19 13:45 07/07/19 13:42 Wound Center Nurse 2 #4 right knee -Time 13:42 -Correct Patient Yes -Correct Side, Site, Position Yes -Correct Procedure Yes -Procedure Performed Yes -Type of Procedure Debridement -Clinical Debridement Subcutaneous -Post Debridement Size (cm) - Length 0.4 -Post Debridement Size (cm) - Width 0.2 -Post Debridement Size (cm) - Depth 0.2 -Total Square Cm 0.08 -Wound/Ulcer Outcome Not Healed -Ulcer Cleansing Rinsed/ Irrigated with Saline -Foul Odor after Cleansing No -Bioengineered Tissue No -Bleeding Controlled with Pressure -Offloading No -Treatment Response Procedure Tolerated Well #3 RLE Lateral -Time 13:42 -Correct Patient Yes -Correct Side, Site, Position Yes -Correct Procedure Yes -Procedure Performed Yes -Type of Procedure Debridement -Clinical Debridement Subcutaneous -Post Debridement Size (cm) - Length 11.5 -Post Debridement Size (cm) - Width 3.5 -Post Debridement Size (cm) - Depth 0.1 -Total Square Cm 40.25 -Wound/Ulcer Outcome Not Healed -Ulcer Cleansing Rinsed/ Irrigated with Saline -Foul Odor after Cleansing No -Bioengineered Tissue No -Bleeding Controlled with Pressure -Offloading No -Treatment Response Procedure Tolerated Well Pain Scale: 0-10 Numeric Is Patient Pain Free? Yes Wound debrided: #3 Right proximal lateral leg. Laterality: Right Wound Grade/Stage: 4. Type of Debridement: Excisional debridement Anesthesia Used: 4% Lidocaine Solution Depth: Down to and including healthy tissue, in the subcutaneous layer, to muscle, to bone - bone is palpable but not exposed so no bone was debrided. Percentage of wound debrided: 100 Instrument Used: 5mm curette Tissue Removed: subcutaneous tissue. Severity: Fat Layer Exposed - bone is palpable but not exposed and not debrided. Amount of bleeding with debridement: Mild Bleeding Controlled with: Pressure Patient tolerated procedure well - Additional Wound Wound debrided: #4 Right anterior knee/proximal leg. Laterality: Right Wound Grade/Stage: 4. Type of Debridement: Excisional debridement Anesthesia Used: 4% Lidocaine Solution Depth: Down to and including healthy tissue, in the subcutaneous layer, to muscle, to bone - bone is palpable but not exposed and not debrided. Percentage of wound debrided: 100 Instrument Used: 5mm curette Tissue Removed: subcutaneous tissue. Severity: Fat Layer Exposed - muscle is exposed. bone is palpable but not exposed and no bone was debrided. Amount of bleeding with debridement: Mild Bleeding Controlled with: Pressure Patient tolerated procedure: Patient tolerated procedure well Assessment/Plan Assessment: 1. 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 2. Recent history of ORIF right tibial plateau fracture. 3. MRSA. 4. MRSA bacteremia. 5. Diabetes mellitus. 6. Status right knee replacement, medial compartment. 7. Fall. 8. Exposed hardware right proximal lateral leg from tibial plateau fracture repair. 9. s/p surgical preparation right proximal lateral leg with incision and drainage and excisional debridement nonhealing necrotic MRSA ulcer with exposed hardware (105 cm2). 10. VRE. 11. Nonhealing ulcer right anterior knee/proximal leg. Plan: Continue Aquacel Silver dressing changes daily. Good granulation tissue is seen. The exposed plate and screws has been covered with granulation tissue. Operative culture shows MRSA. He has finished the Vancomycin and will continue Rifampin fci because of the exposed hardware. He has a new onset ulceration adjacent to the existing ulceration. It is on the anterior knee/proximal leg. There was exposed bone. The bone is now palpable but not exposed. It is covered with granulation tissue. A wound culture was done on 06/02/19. It showed VRE, Klebsiella pneumoniae, and Anaerobic cocci. He was put on Augmentin and Levaquin. Prealbumin was 14.2. Encourage nutritional supplementation with protein to help the healing process. HgbA1c from 01/29/19 was 6.8. Any elective skin graft or flap that is done needs to have a HgbA1c less than 8. Discussed with Dr. Rutledge. He recommends that the patient's best chance for limb salvage is to leave the hardware in. So we can proceed with skin grafting or muscle flap depending on the new onset ulcer on the anterior knee/proximal leg now that there is granulation tissue over the bone. With the improvement in the ulcer, and granulation tissue covering the bone and hardware, may be able to proceed with debridement and skin grafting. If not succesful, then can proceed with a lateral gastrocnemius muscle flap to cover the exposed bone and hardware followed by skin grafting over the muscle. If a muscle flap is needed, will need to biopsy the bone to make sure there is no osteomyelitis present that can complicate healing. If bony healing becomes problematic, the last resort option would be an above knee amputation. Patient and his voice understanding. X-ray was done on 05/27/19. It showed healing right proximal tibia and fibula fractures. Some lucency is noted adjacent to the femoral component of left medial compartment knee arthroplasty, limited in evaluation due to projection. Recommend dedicated knee radiographs for further evaluation. Patient was informed of the risks and complications of the procedure including alternatives to surgery. These were discussed with him personally. He voices understanding and wishes to proceed. Followup 2 weeks. Will schedule the skin graft in the next month. Surgery will be under general anesthesia with a surgical observation overnight stay in the hospital.
== END 2019-07-19 23:59 ==
LOC: WC 10:40
PROVIDERS: Family Provider Family Medicine Geriatric Medicine; PCP Family Medicine Geriatric Medicine; Visit Provider Surgery
DX: E11.622 Type 2 diabetes mellitus with other skin ulcer (principal); L97.812 Non-pressure chronic ulcer of other part of right lower leg with fat layer exposed; Z86.14 Personal history of Methicillin resistant Staphylococcus aureus infection; S82.141S Displaced bicondylar fracture of right tibia, sequela; X58.XXXS Exposure to other specified factors, sequela
CPT/HCPCS: 11042; 11045

== ENCOUNTER 2019-08-18 13:00 | Outpatient (RCR) | payer MEDICARE, SELFPAY ==
[2019-07-18 13:39] VITALS: BMI 38.1
[2019-07-20 00:52] VITALS: BP 129/69; PULSE 63; RESP 16; TEMP 35.7
[2019-07-22 13:22] VITALS: BP 146/71; PULSE 61; RESP 18; TEMP 36.2; BMI 38.1
--- NOTE | 2019-07-22 17:14 | PCM.WC.PN ---
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 Code(s): L97.919 - Non-pressure chronic ulcer of unspecified part of right lower leg with unspecified severity (2) History of right knee joint replacement Status: Chronic Code(s): Z96.651 - Presence of right artificial knee joint (3) MRSA (methicillin resistant Staphylococcus aureus) infection Status: Chronic Code(s): A49.02 - Methicillin resistant Staphylococcus aureus infection, unspecified site (4) Exposed orthopaedic hardware Status: Chronic Code(s): T84.498A - Other mechanical complication of other internal orthopedic devices, implants and grafts, initial encounter (5) Diabetes mellitus Status: Chronic Code(s): E11.9 - Type 2 diabetes mellitus without complications Type of Wound Date of Service: 07/22/19 Chief Complaint: 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 History of Wound: Surgery 03/05/19 - Surgical preparation right proximal lateral leg with incision and drainage and excisional debridement nonhealing necrotic MRSA ulcer with exposed hardware (105 cm2). Wound care - Right knee collagen hydrogel and right lateral leg Silver. Operative culture - MRSA. He was placed on Vancomycin and Rifampin. He has finished the Vancomycin. Prealbumin from 03/06/19 was 14.2. Encourage nutritional supplementation with protein to help the healing process. HgbA1c from 01/29/[address] right leg on 03/04/19 showed the patient is status post medial femoral tibial hemiarthroplasty. The patient is status post open reduction and internal fixation of the proximal tibial plateau fracture with medial placement of screws and sideplate fixation device. There is good alignment. No significant healing of the fracture line is present. Healing fracture of the proximal neck of the fibula. Today he denies fever. His appetite is good. It was recently noted that a bony prominence anteriorly has developed an ulceration. X-ray was done on 05/27/19. It showed healing right proximal tibia and fibula fractures. Some lucency is noted adjacent to the femoral component of left medial compartment knee arthroplasty, limited in evaluation due to projection. Recommend dedicated knee radiographs for further evaluation. A wound culture was done on 06/02/19. It showed VRE, Klebsiella pneumoniae, and Anaerobic cocci. He was started on Augmentin and Levaquin. Progress of Wound: Improved. - Physical Exam Vital Signs Temp Pulse Resp BP 97.1 F L 61 18 146/71 H 07/22/19 13:22 07/22/19 13:22 07/22/19 13:22 07/22/19 13:22 General: Alert, Oriented x3, Cooperative HEENT: Atraumatic Oral: Moist Mucosa Lungs: Normal air movement Cardiovascular: Regular rate Extremities: Capillary Refill Less than 3 Seconds, Diminished Peripheral Pulses, Edema Skin: Ulcer/ Wound - Right knee and proximal lateral leg Wound Measurements and Assessment WC - Nurse 1 - General Ulcer Measurement Start: 07/22/19 13:22 Freq: Status: Active Protocol: Activity Type Activity Date Activity User E-Sign Co-Sign Detail Recorded Client Recorded Date Recorded By Document 07/22/19 13:22 [id number] 07/22/19 13:23 07/22/19 13:22 Wound Center Nurse 1 [Ulcer Assessment] #4 right knee -Combined with other wound No -Current Size (cm) - Length 0.1 -Current Size (cm) - Width 0.1 -Current Size (cm) - Depth 0.1 -Total Square Cm 0.01 -Photo Taken No -Epithelialization Large 67-100% -Tunneling No -Undermining/Tunneling No -Circular Undermining No -Exudate Amt None Present -Wound Margin Flat & Intact -Granulation Amt None Present (0 %) -Slough/Fibrin Yes -Necrosis Amt Large (67-100%) -Necrotic Tissue Type Adherent Slough -Structure Exposed N/A -Texture (Bria-wound Skin Appearance) Assessed, Localized Edema -Moisture (Bria-wound Skin Appearance Assessed,Dry/ ) Scaly -Color (Bria-wound Skin Appearance) Assessed -Temperature (Bria-wound Skin No Abnormality Appearance) (Pt Warm) -Tenderness on Palpation (Bria-wound No Skin Appearance) -Ulcer Cleansing Rinsed/ Irrigated with Saline -Foul Odor after Cleansing No -Anesthetic Used 4% Lidocaine Solution #3 RLE Lateral -Combined with other wound No -Current Size (cm) - Length 11.8 -Current Size (cm) - Width 3.0 -Current Size (cm) - Depth 0.2 -Total Square Cm 35.40 -Photo Taken No -Epithelialization Small 1-33% -Tunneling No -Undermining/Tunneling No -Circular Undermining No -Exudate Amt Large -Exudate Type Serosanguineous -Wound Margin Flat & Intact -Granulation Amt Large (67-100%) -Granulation Quality Red -Slough/Fibrin Yes -Necrosis Amt Small (1-33%) -Necrotic Tissue Type Adherent Slough -Structure Exposed N/A -Texture (Bria-wound Skin Appearance) Assessed, Localized Edema -Moisture (Bria-wound Skin Appearance Assessed,Dry/ ) Scaly -Color (Bria-wound Skin Appearance) Assessed -Temperature (Bria-wound Skin No Abnormality Appearance) (Pt Warm) -Tenderness on Palpation (Bria-wound No Skin Appearance) -Ulcer Cleansing Rinsed/ Irrigated with Saline -Foul Odor after Cleansing No -Anesthetic Used 4% Lidocaine Solution [Edema Assessment] -Lower Limb Edema Present Yes -Right Calf (cm) 37.5 -Right Ankle (cm) 25.8 WC - Nurse 2 - General Ulcer CM Notes Start: 07/22/19 13:22 Freq: Status: Active Protocol: Activity Type Activity Date Activity User E-Sign Co-Sign Detail Recorded Client Recorded Date Recorded By Document 07/22/19 13:24 [id number] 07/22/19 13:29 07/22/19 13:24 Wound Center Nurse 2 [Procedure/Treatment] #4 right knee -Time 13:27 -Correct Patient Yes -Correct Side, Site, Position Yes -Correct Procedure Yes -Procedure Performed Yes -Type of Procedure Debridement -Clinical Debridement Subcutaneous -Post Debridement Size (cm) - Length 0.5 -Post Debridement Size (cm) - Width 0.7 -Post Debridement Size (cm) - Depth 0.1 -Total Square Cm 0.35 -Wound/Ulcer Outcome Not Healed -Ulcer Cleansing Rinsed/ Irrigated with Saline -Foul Odor after Cleansing No -Bioengineered Tissue No -Bleeding Controlled with Pressure -Offloading No -Treatment Response Procedure Tolerated Well #3 RLE Lateral -Time 13:26 -Correct Patient Yes -Correct Side, Site, Position Yes -Correct Procedure Yes -Procedure Performed Yes -Type of Procedure Debridement -Clinical Debridement Subcutaneous -Post Debridement Size (cm) - Length 12.0 -Post Debridement Size (cm) - Width 3.3 -Post Debridement Size (cm) - Depth 0.4 -Total Square Cm 39.60 -Wound/Ulcer Outcome Not Healed -Ulcer Cleansing Rinsed/ Irrigated with Saline -Foul Odor after Cleansing No -Bioengineered Tissue No -Bleeding Controlled with Pressure -Offloading No -Treatment Response Procedure Tolerated Well [See Physician Procedure note for Specifics] Pain Scale: 0-10 Numeric [Pain] -Is Patient Pain Free? Yes Musculoskeletal: No Tenderness to Palpation of Joints or Extremities Neurological: Neuro grossly intact Psych/Mental Status: Normal Affect, Appropriate Debridement Note Post-Debridement Measurements/Treatment WC - Nurse 2 - General Ulcer CM Notes Start: 07/22/19 13:22 Freq: Status: Active Protocol: Activity Type Activity Date Activity User E-Sign Co-Sign Detail Recorded Client Recorded Date Recorded By Document 07/22/19 13:24 [id number] 07/22/19 13:29 ETHAN 07/22/19 13:24 Wound Center Nurse 2 #4 right knee -Time 13:27 -Correct Patient Yes -Correct Side, Site, Position Yes -Correct Procedure Yes -Procedure Performed Yes -Type of Procedure Debridement -Clinical Debridement Subcutaneous -Post Debridement Size (cm) - Length 0.5 -Post Debridement Size (cm) - Width 0.7 -Post Debridement Size (cm) - Depth 0.1 -Total Square Cm 0.35 -Wound/Ulcer Outcome Not Healed -Ulcer Cleansing Rinsed/ Irrigated with Saline -Foul Odor after Cleansing No -Bioengineered Tissue No -Bleeding Controlled with Pressure -Offloading No -Treatment Response Procedure Tolerated Well #3 RLE Lateral -Time 13:26 -Correct Patient Yes -Correct Side, Site, Position Yes -Correct Procedure Yes -Procedure Performed Yes -Type of Procedure Debridement -Clinical Debridement Subcutaneous -Post Debridement Size (cm) - Length 12.0 -Post Debridement Size (cm) - Width 3.3 -Post Debridement Size (cm) - Depth 0.4 -Total Square Cm 39.60 -Wound/Ulcer Outcome Not Healed -Ulcer Cleansing Rinsed/ Irrigated with Saline -Foul Odor after Cleansing No -Bioengineered Tissue No -Bleeding Controlled with Pressure -Offloading No -Treatment Response Procedure Tolerated Well Pain Scale: 0-10 Numeric Is Patient Pain Free? Yes Wound debrided: knee Laterality: Right Type of Debridement: Excisional debridement Anesthesia Used: 4% Lidocaine Solution, 5% Lidocaine Gel Depth: Down to and including healthy tissue, in the subcutaneous layer Percentage of wound debrided: 100 Instrument Used: 3mm curette Tissue Removed: Subcutaneous tissue and slough Severity: Limited To Skin Breakdown Amount of bleeding with debridement: Mild Bleeding Controlled with: Pressure, Compression and gauze Patient tolerated procedure well - Additional Wound Wound debrided: proximal lateral leg Laterality: Right Type of Debridement: Excisional debridement Anesthesia Used: 4% Lidocaine Solution, 5% Lidocaine Gel Depth: Down to and including healthy tissue, in the subcutaneous layer Percentage of wound debrided: 100 Instrument Used: 5mm curette Tissue Removed: Subcutaneous tissue and slough Severity: Fat Layer Exposed Amount of bleeding with debridement: Mild Bleeding Controlled with: Pressure, Compression and gauze Patient tolerated procedure: Patient tolerated procedure well Assessment/Plan Assessment: 1. 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 2. Recent history of ORIF right tibial plateau fracture. 3. MRSA. 4. MRSA bacteremia. 5. Diabetes mellitus. 6. Status right knee replacement, medial compartment. 7. Fall. 8. Exposed hardware right proximal lateral leg from tibial plateau fracture repair. 9. s/p surgical preparation right proximal lateral leg with incision and drainage and excisional debridement nonhealing necrotic MRSA ulcer with exposed hardware (105 cm2). 10. VRE. 11. Nonhealing ulcer right anterior knee/proximal leg. Plan: Continue Aquacel Silver dressing changes daily to the right lateral leg. Will start collagen hydrogel to the right knee ulcer. Good granulation tissue is seen. The exposed plate and screws has been covered with granulation tissue. Operative culture shows MRSA. He has finished the Vancomycin and will continue Rifampin chcf because of the exposed hardware. He has a new onset ulceration adjacent to the existing ulceration. It is on the anterior knee/proximal leg. There was exposed bone. The bone is now palpable but not exposed. It is covered with granulation tissue. A wound culture was done on 06/02/19. It showed VRE, Klebsiella pneumoniae, and Anaerobic cocci. He was put on Augmentin and Levaquin. Prealbumin was 14.2. Encourage nutritional supplementation with protein to help the healing process. HgbA1c from 01/29/19 was 6.8. Any elective skin graft or flap that is done needs to have a HgbA1c less than 8. Discussed with Dr. Rutledge. He recommends that the patient's best chance for limb salvage is to leave the hardware in. So we can proceed with skin grafting or muscle flap depending on the new onset ulcer on the anterior knee/proximal leg now that there is granulation tissue over the bone. With the improvement in the ulcer, and granulation tissue covering the bone and hardware, may be able to proceed with debridement and skin grafting. If not succesful, then can proceed with a lateral gastrocnemius muscle flap to cover the exposed bone and hardware followed by skin grafting over the muscle. If a muscle flap is needed, will need to biopsy the bone to make sure there is no osteomyelitis present that can complicate healing. If bony healing becomes problematic, the last resort option would be an above knee amputation. Patient and his voice understanding. X-ray was done on 05/27/19. It showed healing right proximal tibia and fibula fractures. Some lucency is noted adjacent to the femoral component of left medial compartment knee arthroplasty, limited in evaluation due to projection. Recommend dedicated knee radiographs for further evaluation. Patient was informed of the risks and complications of the procedure including alternatives to surgery. These were discussed with him personally. He voices understanding and wishes to proceed. Followup 2 weeks. Will schedule the skin graft in the next month. Surgery will be under general anesthesia with a surgical observation overnight stay in the hospital. Code Visit [id number]: [id number] Shanna subq tissue 20 sq cm/< Add On Codes: [id number] Shanna subq tissue add-on
[2019-08-04 13:50] VITALS: BP 150/73; PULSE 62; RESP 16; TEMP 36.4; BMI 38.1
--- NOTE | 2019-08-04 14:15 | PCM.WC.PN ---
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 Current Visit: Yes Code(s): L97.919 - Non-pressure chronic ulcer of unspecified part of right lower leg with unspecified severity (2) History of right knee joint replacement Status: Chronic Current Visit: Yes Code(s): Z96.651 - Presence of right artificial knee joint (3) MRSA (methicillin resistant Staphylococcus aureus) infection Status: Chronic Current Visit: Yes Code(s): A49.02 - Methicillin resistant Staphylococcus aureus infection, unspecified site (4) Exposed orthopaedic hardware Status: Chronic Current Visit: No Code(s): T84.498A - Other mechanical complication of other internal orthopedic devices, implants and grafts, initial encounter (5) Diabetes mellitus Status: Chronic Current Visit: No Code(s): E11.9 - Type 2 diabetes mellitus without complications Type of Wound Date of Service: 08/04/19 Chief Complaint: 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 History of Wound: Surgery 03/05/19 - Surgical preparation right proximal lateral leg with incision and drainage and excisional debridement nonhealing necrotic MRSA ulcer with exposed hardware (105 cm2). Right knee is healed. Wound care - Right lateral leg moistened Silver covered by adaptic. Operative culture - MRSA. He was placed on Vancomycin and Rifampin. He has finished the Vancomycin. Prealbumin from 03/06/19 was 14.2. Encourage nutritional supplementation with protein to help the healing process. HgbA1c from 01/29/[address] right leg on 03/04/19 showed the patient is status post medial femoral tibial hemiarthroplasty. The patient is status post open reduction and internal fixation of the proximal tibial plateau fracture with medial placement of screws and sideplate fixation device. There is good alignment. No significant healing of the fracture line is present. Healing fracture of the proximal neck of the fibula. Today he denies fever. His appetite is good. It was recently noted that a bony prominence anteriorly has developed an ulceration. X-ray was done on 05/27/19. It showed healing right proximal tibia and fibula fractures. Some lucency is noted adjacent to the femoral component of left medial compartment knee arthroplasty, limited in evaluation due to projection. Recommend dedicated knee radiographs for further evaluation. A wound culture was done on 06/02/19. It showed VRE, Klebsiella pneumoniae, and Anaerobic cocci. He was started on Augmentin and Levaquin. Progress of Wound: Improved. - Physical Exam Vital Signs Temp Pulse Resp BP 97.5 F L 62 16 150/73 H 08/04/19 13:50 08/04/19 13:50 08/04/19 13:50 08/04/19 13:50 General: Alert, Oriented x3, Cooperative HEENT: Atraumatic Oral: Moist Mucosa Lungs: Normal air movement Cardiovascular: Regular rate Extremities: Capillary Refill Less than 3 Seconds, Diminished Peripheral Pulses Skin: Ulcer/ Wound - Right lateral leg ulcer Wound Measurements and Assessment WC - Nurse 1 - General Ulcer Measurement Start: 07/22/19 13:22 Freq: Status: Active Protocol: Activity Type Activity Date Activity User E-Sign Co-Sign Detail Recorded Client Recorded Date Recorded By Document 08/04/19 13:50 BMF [id number] 08/04/19 13:55 BMF 08/04/19 13:50 Wound Center Nurse 1 [Ulcer Assessment] #4 right knee -Combined with other wound No -Current Size (cm) - Length 0 -Current Size (cm) - Width 0 -Current Size (cm) - Depth 0 -Total Square Cm 0 -Date of Last Picture (Recall this 08/04/19 field) -Photo Taken Yes -Epithelialization Large 67-100% #3 RLE Lateral -Combined with other wound No -Current Size (cm) - Length 11.5 -Current Size (cm) - Width 3.2 -Current Size (cm) - Depth 0.2 -Total Square Cm 36.80 -Photo Taken No -Epithelialization Small 1-33% -Tunneling No -Undermining/Tunneling No -Circular Undermining No -Exudate Amt Medium -Exudate Type Serosanguineous -Wound Margin Distinct, Outline Attached -Granulation Amt Medium (34-66%) -Granulation Quality Pale,Red -Slough/Fibrin Yes -Necrosis Amt Small (1-33%) -Necrotic Tissue Type Adherent Slough -Texture (Bria-wound Skin Appearance) Assessed, Scarring -Moisture (Bria-wound Skin Appearance Assessed,Dry/ ) Scaly -Color (Bria-wound Skin Appearance) Assessed -Temperature (Bria-wound Skin No Abnormality Appearance) (Pt Warm) -Tenderness on Palpation (Bria-wound No Skin Appearance) -Ulcer Cleansing Rinsed/ Irrigated with Saline -Foul Odor after Cleansing No -Anesthetic Used 4% Lidocaine Solution [Edema Assessment] -Lower Limb Edema Present Yes -Right Calf (cm) 39.2 -Right Ankle (cm) 28.2 - Nurse 2 - General Ulcer CM Notes Start: 07/22/19 13:22 Freq: Status: Active Protocol: Activity Type Activity Date Activity User E-Sign Co-Sign Detail Recorded Client Recorded Date Recorded By Document 08/04/19 14:02 [id number] 08/04/19 14:04 08/04/19 14:02 Wound Center Nurse 2 [Procedure/Treatment] #4 right knee -Correct Patient No -Correct Side, Site, Position No -Correct Procedure No -Procedure Performed No -Post Debridement Size (cm) - Length 0 -Post Debridement Size (cm) - Width 0 -Post Debridement Size (cm) - Depth 0 -Total Square Cm 0 -Wound/Ulcer Outcome Healed- Epithelialized #3 RLE Lateral -Time 14:03 -Correct Patient Yes -Correct Side, Site, Position Yes -Correct Procedure Yes -Procedure Performed Yes -Type of Procedure Debridement -Clinical Debridement Subcutaneous -Post Debridement Size (cm) - Length 11.3 -Post Debridement Size (cm) - Width 3.0 -Post Debridement Size (cm) - Depth 0.3 -Total Square Cm 33.90 -Wound/Ulcer Outcome Not Healed -Ulcer Cleansing Rinsed/ Irrigated with Saline -Foul Odor after Cleansing No -Bioengineered Tissue No -Bleeding Controlled with Pressure -Offloading No -Treatment Response Procedure Tolerated Well [See Physician Procedure note for Specifics] Pain Scale: 0-10 Numeric [Pain] -Is Patient Pain Free? Yes Musculoskeletal: No Tenderness to Palpation of Joints or Extremities Neurological: Neuro grossly intact Psych/Mental Status: Normal Affect, Appropriate Debridement Note Post-Debridement Measurements/Treatment - Nurse 2 - General Ulcer CM Notes Start: 07/22/19 13:22 Freq: Status: Active Protocol: Activity Type Activity Date Activity User E-Sign Co-Sign Detail Recorded Client Recorded Date Recorded By Document 07/22/19 13:24 [id number] 07/22/19 13:29 Document 08/04/19 14:02 [id number] 08/04/19 14:04 07/22/19 08/04/19 13:24 14:02 Wound Center Nurse 2 #4 right knee -Time 13:27 -Correct Patient Yes No -Correct Side, Site, Position Yes No -Correct Procedure Yes No -Procedure Performed Yes No -Type of Procedure Debridement -Clinical Debridement Subcutaneous -Post Debridement Size (cm) - Length 0.5 0 -Post Debridement Size (cm) - Width 0.7 0 -Post Debridement Size (cm) - Depth 0.1 0 -Total Square Cm 0.35 0 -Wound/Ulcer Outcome Not Healed Healed- Epithelialized -Ulcer Cleansing Rinsed/ Irrigated with Saline -Foul Odor after Cleansing No -Bioengineered Tissue No -Bleeding Controlled with Pressure -Offloading No -Treatment Response Procedure Tolerated Well #3 RLE Lateral -Time 13:26 14:03 -Correct Patient Yes Yes -Correct Side, Site, Position Yes Yes -Correct Procedure Yes Yes -Procedure Performed Yes Yes -Type of Procedure Debridement Debridement -Clinical Debridement Subcutaneous Subcutaneous -Post Debridement Size (cm) - Length 12.0 11.3 -Post Debridement Size (cm) - Width 3.3 3.0 -Post Debridement Size (cm) - Depth 0.4 0.3 -Total Square Cm 39.60 33.90 -Wound/Ulcer Outcome Not Healed Not Healed -Ulcer Cleansing Rinsed/ Rinsed/ Irrigated with Irrigated with Saline Saline -Foul Odor after Cleansing No No -Bioengineered Tissue No No -Bleeding Controlled with Pressure Pressure -Offloading No No -Treatment Response Procedure Procedure Tolerated Well Tolerated Well Pain Scale: 0-10 Numeric Is Patient Pain Free? 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 2. Recent history of ORIF right tibial plateau fracture. 3. MRSA. 4. MRSA bacteremia. 5. Diabetes mellitus. 6. Status right knee replacement, medial compartment. 7. Fall. 8. Exposed hardware right proximal lateral leg from tibial plateau fracture repair. 9. s/p surgical preparation right proximal lateral leg with incision and drainage and excisional debridement nonhealing necrotic MRSA ulcer with exposed hardware (105 cm2). 10. VRE. 11. Nonhealing ulcer right anterior knee/proximal leg. Plan: Continue Aquacel Silver dressing changes daily to the right lateral leg. Tubigrip for compression. Right knee ulcer is healed. Good granulation tissue is seen. The exposed plate and screws has been covered with granulation tissue. Operative culture shows MRSA. He has finished the Vancomycin and will continue Rifampin long-term because of the exposed hardware. He has a ulceration adjacent to the existing ulceration. It is on the anterior knee/proximal leg. There was exposed bone. The bone is now palpable but not exposed. It is covered with granulation tissue. A wound culture was done on 06/02/19. It showed VRE, Klebsiella pneumoniae, and Anaerobic cocci. He was put on Augmentin and Levaquin. Prealbumin was 14.2. Encourage nutritional supplementation with protein to help the healing process. HgbA1c from 01/29/19 was 6.8. Any elective skin graft or flap that is done needs to have a HgbA1c less than 8. Discussed with Dr. Rutledge. He recommends that the patient's best chance for limb salvage is to leave the hardware in. So we can proceed with skin grafting or muscle flap depending on the new onset ulcer on the anterior knee/proximal leg now that there is granulation tissue over the bone. With the improvement in the ulcer, and granulation tissue covering the bone and hardware, may be able to proceed with debridement and skin grafting. If not succesful, then can proceed with a lateral gastrocnemius muscle flap to cover the exposed bone and hardware followed by skin grafting over the muscle. If a muscle flap is needed, will need to biopsy the bone to make sure there is no osteomyelitis present that can complicate healing. If bony healing becomes problematic, the last resort option would be an above knee amputation. Patient and his voice understanding. X-ray was done on 05/27/19. It showed healing right proximal tibia and fibula fractures. Some lucency is noted adjacent to the femoral component of left medial compartment knee arthroplasty, limited in evaluation due to projection. Recommend dedicated knee radiographs for further evaluation. Patient was informed of the risks and complications of the procedure including alternatives to surgery. These were discussed with him personally. He voices understanding and wishes to proceed. Followup 2 weeks. Will schedule the skin graft in the next month. Surgery will be under general anesthesia with a surgical observation overnight stay in the hospital. Code Visit 111xxx-113xx: [id number] Shanna subq tissue 20 sq cm/< Add On Codes: [id number] Shanna subq tissue add-on
[2019-08-18 13:19] VITALS: BP 136/69; PULSE 60; RESP 18; TEMP 36.2; BMI 38.1
--- NOTE | 2019-08-18 22:04 | PN.PCM_ITS ---
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 Code(s): L97.919 - Non-pressure chronic ulcer of unspecified part of right lower leg with unspecified severity (2) History of right knee joint replacement Status: Chronic Code(s): Z96.651 - Presence of right artificial knee joint (3) MRSA (methicillin resistant Staphylococcus aureus) infection Status: Chronic Code(s): A49.02 - Methicillin resistant Staphylococcus aureus infection, unspecified site (4) Exposed orthopaedic hardware Status: Chronic Code(s): T84.498A - Other mechanical complication of other internal orthopedic devices, implants and grafts, initial encounter (5) Diabetes mellitus Status: Chronic Code(s): E11.9 - Type 2 diabetes mellitus without complications Type of Wound Date of Service: 08/18/19 Chief Complaint: 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 History of Wound: Surgery 03/05/19 - Surgical preparation right proximal lateral leg with incision and drainage and excisional debridement nonhealing necrotic MRSA ulcer with exposed hardware (105 cm2). Right knee is healed. Wound care - Right lateral leg moistened Silver covered by adaptic. Operative culture - MRSA. He was placed on Vancomycin and Rifampin. He has finished the Vancomycin. Prealbumin from 03/06/19 was 14.2. Encourage nutritional supplementation with protein to help the healing process. HgbA1c from 01/29/[address] right leg on 03/04/19 showed the patient is status post medial f emoral tibial hemiarthroplasty. The patient is status post open reduction and internal fixation of the proximal tibial plateau fracture with medial placement of screws and sideplate fixation device. There is good alignment. No significant healing of the fracture line is present. Healing fracture of the proximal neck of the fibula. Today he denies fever. His appetite is good. It was recently noted that a bony prominence anteriorly has developed an ulceration. X-ray was done on 05/27/19. It showed healing right proximal tibia and fibula fractures. Some lucency is noted adjacent to the femoral component of left medial compartment knee arthroplasty, limited in evaluation due to projection. Recommend dedicated knee radiographs for further evaluation. A wound culture was done on 06/02/19. It showed VRE, Klebsiella pneumoniae, and Anaerobic cocci. He was started on Augmentin and Levaquin. Scheduled for skin graft on 09/02/19. Progress of Wound: Improved. - Physical Exam Vital Signs Temp Pulse Resp BP 97.1 F L 60 18 136/69 H 08/18/19 13:19 08/18/19 13:19 08/18/19 13:19 08/18/19 13:19 General: Alert, Oriented x3, Cooperative, - - very hard of hearing HEENT: Atraumatic Oral: Moist Mucosa Lungs: Normal air movement Cardiovascular: Regular rate Extremities: Capillary Refill Less than 3 Seconds, Diminished Peripheral Pulses, Edema Skin: Ulcer/ Wound - right lower leg ulcer Musculoskeletal: No Tenderness to Palpation of Joints or Extremities Neurological: Neuro grossly intact Psych/Mental Status: Normal Affect, Appropriate Debridement Note Post-Debridement Measurements/Treatment WC - Nurse 2 - General Ulcer CM Notes Start: 07/22/19 13:22 Freq: Status: Active Protocol: Activity Type Activity Date Activity User E-Sign Co-Sign Detail Recorded Client Recorded Date Recorded By Document 07/22/19 13:24 [id number] 07/22/19 13:29 Document 08/04/19 14:02 [id number] 08/04/19 14:04 Document 08/18/19 13:46 [id number] 08/18/19 14:02 07/22/19 08/04/19 08/18/19 13:24 14:02 13:46 Wound Center Nurse 2 #4 right knee -Time 13:27 -Correct Patient Yes No -Correct Side, Site, Position Yes No -Correct Procedure Yes No -Procedure Performed Yes No -Type of Procedure Debridement -Clinical Debridement Subcutaneous -Post Debridement Size (cm) - Length 0.5 0 -Post Debridement Size (cm) - Width 0.7 0 -Post Debridement Size (cm) - Depth 0.1 0 -Total Square Cm 0.35 0 -Wound/Ulcer Outcome Not Healed Healed- Epithelialized -Ulcer Cleansing Rinsed/ Irrigated with Saline -Foul Odor after Cleansing No -Bioengineered Tissue No -Bleeding Controlled with Pressure -Offloading No -Treatment Response Procedure Tolerated Well #3 RLE Lateral -Time 13:26 14:03 13:47 -Correct Patient Yes Yes Yes -Correct Side, Site, Position Yes Yes Yes -Correct Procedure Yes Yes Yes -Procedure Performed Yes Yes Yes -Type of Procedure Debridement Debridement Debridement -Clinical Debridement Subcutaneous Subcutaneous Subcutaneous -Post Debridement Size (cm) - Length 12.0 11.3 11.2 -Post Debridement Size (cm) - Width 3.3 3.0 2.3 -Post Debridement Size (cm) - Depth 0.4 0.3 0.2 -Total Square Cm 39.60 33.90 25.76 -Wound/Ulcer Outcome Not Healed Not Healed Not Healed -Ulcer Cleansing Rinsed/ Rinsed/ Rinsed/ Irrigated with Irrigated with Irrigated with Saline Saline Saline -Foul Odor after Cleansing No No No -Bioengineered Tissue No No No -Bleeding Controlled with Pressure Pressure Pressure -Offloading No No No -Treatment Response Procedure Procedure Procedure Tolerated Well Tolerated Well Tolerated Well Pain Scale: 0-10 Numeric Is Patient Pain Free? Yes Yes Yes Wound debrided: lower leg Laterality: Right Type of Debridement: Excisional debridement Anesthesia Used: 4% Lidocaine Solution, 5% Lidocaine Gel Depth: Down to and including healthy tissue, in the subcutaneous layer Percentage of wound debrided: 100 Instrument Used: 5mm curette Tissue Removed: Subcutaneous tissue and slough Severity: Fat Layer Exposed Amount of bleeding with debridement: Mild Bleeding Controlled with: Pressure, Compression and gauze Patient tolerated procedure well Assessment/Plan Assessment: 1. 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 2. Recent history of ORIF right tibial plateau fracture. 3. MRSA. 4. MRSA bacteremia. 5. Diabetes mellitus. 6. Status right knee replacement, medial compartment. 7. Fall. 8. Exposed hardware right proximal lateral leg from tibial plateau fracture repair. 9. s/p surgical preparation right proximal lateral leg with incision and drainage and excisional debridement nonhealing necrotic MRSA ulcer with exposed hardware (105 cm2). 10. VRE. 11. Nonhealing ulcer right anterior knee/proximal leg. Plan: Continue moistened Aquacel Silver covered by adaptic dressing changes daily to the right lateral leg. Tubigrip for compression. Right knee ulcer is healed. Good granulation tissue is seen. The exposed plate and screws has been covered with granulation tissue. Operative culture shows MRSA. He has finished the Vancomycin and will continue Rifampin chcf because of the exposed hardware. He has a ulceration adjacent to the existing ulceration. It is on the anterior knee/proximal leg. There was exposed bone. The bone is now palpable but not exposed. It is covered with granulation tissue. A wound culture was done on 06/02/19. It showed VRE, Klebsiella pneumoniae, and Anaerobic cocci. He was put on Augmentin and Levaquin. Prealbumin was 14.2. Encourage nutritional supplementation with protein to help the healing process. HgbA1c from 01/29/19 was 6.8. Any elective skin graft or flap that is done needs to have a HgbA1c less than 8. Discuss[address] with Dr[address] Rutledge. He recommends that the patient's best chance for limb salvage is to leave the hardware in. So we can proceed with skin grafting or muscle flap depending on the new onset ulcer on the anterior knee/proximal leg now that there is granulation tissue over the bone. With the improvement in the ulcer, and granulation tissue covering the bone and hardware, may be able to proceed with debridement and skin grafting. If not succesful, then can proceed with a lateral gastrocnemius muscle flap to cover the exposed bone and hardware followed by skin grafting over the muscle. If a muscle flap is needed, will need to biopsy the bone to make sure there is no osteomyelitis present that can complicate healing. If bony healing becomes problematic, the last resort option would be an above knee amputation. Patient and his voice understanding. X-ray was done on 05/27/19. It showed healing right proximal tibia and fibula fractures. Some lucency is noted adjacent to the femoral component of left medial compartment knee arthroplasty, limited in evaluation due to projection. Recommend dedicated knee radiographs for further evaluation. Patient was informed of the risks and complications of the procedure including alternatives to surgery. These were discussed with him personally. He voices understanding and wishes to proceed. Surgery scheduled 09/02 for a skin graft in the next month. Surgery will be under general anesthesia with a surgical observation overnight stay in the hospital. Code Visit 111xxx-113xx: 32456 Shanna subq tissue 20 sq cm/< Add On Codes: [id number] Shanna subq tissue add-on
== END 2019-08-18 23:59 ==
LOC: WC 13:00
PROVIDERS: Family Provider Family Medicine Geriatric Medicine; PCP Family Medicine Geriatric Medicine; Visit Provider Surgery
DX: E11.622 Type 2 diabetes mellitus with other skin ulcer (principal); L97.812 Non-pressure chronic ulcer of other part of right lower leg with fat layer exposed; Z86.14 Personal history of Methicillin resistant Staphylococcus aureus infection; L97.811 Non-pressure chronic ulcer of other part of right lower leg limited to breakdown of skin; S82.141S Displaced bicondylar fracture of right tibia, sequela; X58.XXXS Exposure to other specified factors, sequela
CPT/HCPCS: 11042; 11045

== ENCOUNTER → 2019-08-25 15:26 | Outpatient (CLI) | payer MEDICARE, SELFPAY ==
[2019-08-18 13:19] VITALS: BMI 38.1
[2019-08-25 16:38] LABS: Absolute Lymphocyte Count 2.85 X10^3/uL (0.83-4.51); Absolute Neutrophil Count 4.9 X10^3/uL (2.0-7.7); Basophil# 0.03 X10^3/uL; Basophil% 0.3 % (0-1); Eosinophil# 0.25 X10^3/uL; Eosinophils% 2.8 % (0-5); Hematocrit 43.9 % (40-54); Hemoglobin 13.4 g/dL (13.0-16.5); Lymphocyte # 2.85 X10^3/ul (4.0); Lymphocyte % 31.8 % (19-41); Mean Corp Hgb Conc 30.5 g/dL (32-36); Mean Corpuscular Volume 88.5 fL (80-94); Mean Platelet Vol. 10.4 fl (6.2-12.0); Monocyte# 0.91 X10^3/uL; Monocyte% 10.2 % (0-10); NRBC Flagged by Analyzer 0 % (0-5); Neutrophil # 4.88 X10^3/uL (2.7-7.7); Neutrophil % 54.6 % (47-70); Platelet Count 334 K/mm3 (150-450); RBC Distribution Width CV 14.9 % (11.6-14.6); RBC Distribution Width SD 47.8 fl (35.1-43.9); Red Blood Count 4.96 M/mm3 (4.6-6.2)
[2019-08-25 16:59] LABS: Vitamin D,25 Hydroxy 26.7 ng/mL (29.95-100.01)
[2019-08-25 17:04] LABS: ALB/GLOB Ratio 0.8 RATIO (0.9-2.4); AST(SGOT) 18 U/L (15-37); Alanine Aminotransfer ALT/SGPT 15 U/L (16-61); Albumin, Serum 3.1 g/dL (3.2-5.0); Alkaline Phosphatase 128 U/L (45-117); Anion Gap 9 (5-15); BUN 21 mg/dL (7-18); BUN/Creat Ratio 23.9 RATIO (10-20); Calcium,Total 8.9 mg/dL (8.5-10.1); Chloride 104 mmol/L (98-107); Creatinine, Serum 0.88 mg/dL (0.70-1.30); EST Glomerular Filtration Rate 90 mL/min (>60); Est Glom Filt Rate - Afr Amer 109 mL/min (>60); Globulin 3.7 g/dL (2.2-4.2); Glucose 116 mg/dL (74-106); Potassium 4.4 mmol/L (3.5-5.1); Protein, Total 6.8 g/dL (6.4-8.2); Sodium Level 141 mmol/L (136-145); Thyroid Stim Hormone (TSH) 0.95 uIU/mL (0.358-3.74); Uric Acid 5.8 mg/dL (3.5-7.2)
== END ==
PROVIDERS: Family Provider Family Medicine Geriatric Medicine; PCP Family Medicine Geriatric Medicine; Visit Provider Family Medicine Geriatric Medicine
DX: E11.9 Type 2 diabetes mellitus without complications (principal); E55.9 Vitamin D deficiency, unspecified; I10 Essential (primary) hypertension; M10.9 Gout, unspecified; N39.0 Urinary tract infection, site not specified
CPT/HCPCS: 36415; 80053; 82306; 84443; 84550; 85025; 87086; 87088

== ENCOUNTER 2019-09-02 12:02 | Inpatient (IN) | payer MEDICARE, SELFPAY ==
[2019-08-04 13:50] VITALS: BMI 38.1
--- NOTE | 2019-09-01 23:00 | HP.PCM_ITS ---
History and Physical Date of Admission: 09/02/19 HISTORY OF PRESENT ILLNESS 74 year old man presents with a nonhealing diabetic MRSA ulcer right proximal lateral leg after sustaining a right tibial plateau fracture back in 02/04. At that time, he fell at home which led to the fracture. He underwent ORIF of the fracture in 02/04. He developed some dry eschar on the incision line. Recently it started draining and the culture showed MRSA. He also has positive blood cultures for MRSA. He was on Vancomycin. He went to surgery on 03/05/19 where he underwent surgical preparation right proximal lateral leg with incision and drainage and excisional debridement nonhealing necrotic MRSA ulcer with exposed hardware (105 cm2). At present he is doing daily Silver dressing changes. Operative culture showed MRSA. He was placed on Vancomycin and Rifampin. He started with Vancomycin and ended with Ceftaroline. He then started on Doxycycline that he will take indefinitely as long as the hardware remains in place. Prealbumin from 03/06/19 was 14.2. Encourage nutritional supplementation with protein to help the h ealing process. HgbA1c from 01/29/19 was 6.8. Another wound culture was done on 06/02/19. It showed VRE, Klebsiella pneumoniae, and Anaerobic cocci. He was started on Augmentin and Levaquin and has finished them. He presents today for operative debridement of his nonhealing ulcer with skin grafting. 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 Lymphedema Diabetes mellitus GERD (gastroesophageal reflux disease) Hypothyroidism Lumbar spinal stenosis Osteoarthritis of knees, bilateral Depression Gout Neuropathic pain Low back pain Chronic venous insufficiency EH (obstructive sleep apnea) Tricuspid valve insufficiency Obesity, morbid, BMI 40.0-49.9 Non-rheumatic tricuspid valve insufficiency Chronic diastolic (congestive) heart failure Hyperlipidemia Hypertension Fracture of right tibia and fibula (tibial plateau fracture) MRSA SURGICAL HISTORY Left cochlear implant left heart catheterization right knee joint replacement Right total hip arthroplasty Left shoulder surgery with rotator cuff repair cholecystectomy back surgery x4 Surgical preparation right proximal lateral leg with incision and drainage and excisional debridement nonhealing necrotic MRSA ulcer with exposed hardware (105 cm2) - 03/05/19 ALLERGIES cocaine atorvastatin calcium [From Lipitor] haloperidol [From Haldol] morphine oxycodone [From OxyIR] prednisone vancomycin MEDICATIONS Tylenol Allopurinol Doxepin Doxycycline Trulicity Jardiance Vitamin D Lantus Humalog Synthroid Metoprolol Eucerin Edy Mycostatin Powder Protonix Paxil Miralax K-Dur Zocor Torsemide SOCIAL HISTORY Smoking Status: Former smoker Tobacco Use: Non-smoker Alcohol: None Drugs: None FAMILY HISTORY Mother - Hypertension Father - Hypertension REVIEW OF SYSTEMS Constitutional: Denies: Anorexia, Chills, Fever. Eyes: Denies: Blurred vision, Double vision. HEENT: Reports: Difficulty Hearing. Denies: Head Aches, Sinus Congestion, Sinus Drainage. Cardiovascular: Denies: Chest Pain, Palpitations. Respiratory: Denies: Cough, Shortness of breath at rest, Sputum production. Gastrointestinal: Reports: Constipation, Diarrhea. Denies: Abdominal Pain, Nausea, Vomiting. Genitourinary: Reports: Incontinence. Denies: Dysuria. Musculoskeletal: Reports: Joint Pain, - - Right knee pain. Skin: Reports: - - Venous stasis changes. Weeping from lymphedema of the lower extremities. Neurological: Reports: Balance problems - Patient is very debilitated overall.. Denies: Blurred vision, Double vision. Psychiatric: Denies: Anxiety, Depressio n. Endocrine: Denies: Change in Body Habitus, Heat/ Cold Intolerance. Hematologic/ Lymphatic: Denies: Easy Bruising, Easy Bleeding, Hx of blood clot PHYSICAL EXAMINATION General: Alert, Cooperative. HEENT: PERRL. EOMI. Oral: Moist Mucosa. Neck: Supple, nontender. No cervical adenopathy. Lungs: Clear to auscultation. Cardiovascular: Regular rate, Regular Rhythm. Abdomen: Soft, Non-Distended. Extremities: No Calf Tenderness, Edema. Venous stasis changes to the lower extremities. On the right proximal lateral leg is a nonhealing ulcer. Good granulation tissue present. No evidence of exposed hardware. Ulcer measures 12 x 3 cm. Mild tenderness. No purulent drainage. Neuro: CN II - XII grossly intact. Psych/Mental Status: Normal Affect, Appropriate ASSESSMENT 1. Nonhealing ulcer right proximal lateral leg. 2. History of ORIF right tibial plateau fracture. 3. History of MRSA. 4. Diabetes mellitus. 5. Status right knee replacement, medial compartment. 6. History of fall. PLAN Continue moistened Aquacel Silver covered by adaptic dressing changes daily to the right lateral leg. Tubigrip for compression. Good granulation tissue is seen. The exposed plate and screws has been covered with granulation tissue. Operative culture showed MRSA. He started with Vancomycin and ended with Ceftaroline and was on terminal computer operator Doxycycline as long as the hardware is left intact. A wound culture was done on 06/02/19. It showed VRE, Klebsiella pneumoniae, and Anaerobic cocci. He was put on Augmentin and Levaquin and has finished them. Prealbumin was 14.2. Encourage nutritional supplementation with protein to help the healing process. HgbA1c from 01/29/19 was 6.8. Any elective skin graft or flap that is done needs to have a HgbA1c less than 8. Discussed with Dr. Rutledge. He recommends that the patient's best chance for limb salvage is to leave the hardware in. With the improvement in the ulcer, and granulation tissue covering the bone and hardware, may be able to proceed with debridement and skin grafting. If not successful, then can proceed with a lateral gastrocnemius muscle flap to cover the exposed bone and hardware followed by skin grafting over the muscle. If a muscle flap is needed, will need to biopsy the bone to make sure there is no osteomyelitis present that can complicate healing. If bony healing becomes problematic, the last resort option would be an above knee amputation. Patient and his voice understanding. Patient was informed of the risks and complications of the procedure including alternatives to surgery. These were discussed with him personally. He voices understanding and wishes to proceed. Surgery will be under general anesthesia with a surgical observation overnight stay in the hospital. Patient has diabetes mellitus which increases risk of delayed healing and infection.
[2019-09-02] VITALS (12 sets, daily range): BP systolic 148–181; BP diastolic 77–97; PULSE 61–67; RESP 16–18; TEMP 36.1–36.8; O2SAT 80–100; BMI 40.1
--- NOTE | 2019-09-02 | UL_PTH ---
PATIENT: PAYTON GONZALES LOC: MS3 U#:[id number] AGE/SX: 74/M ROOM: [facility] [place] RE09/03/[address]: Dr. Elijah Fernando MD : 1945 BED: 1 DIS: 09/04/2019 SPEC #: [id number] RECD: 09/02/19 13:26 STATUS: JUAN CARLOS REQ #: [id number] FABIOLA: 09/02/19 00:[address]: Elijah Fernando DEPT: SURGICAL PATHOLOGY RECD BY: Reji To ENTERED: 09/02/19 13:26 SP TYPE: ULCER OTHR DR: Dr. Gil Wheeler MD Tissues: ULCER Procedures: Surgery Specimen Level III HEADER OPERATION: Debridement wound with FTSG PRE-OP DIAGNOSIS: Nonhealing ulcer right proximal lateral leg; history of ORIF right tibial plaque fracture TISSUE SUBMITTED: Nonhealing ulcer right proximal lateral leg MICROSCOPIC DIAGNOSIS Nonhealing ulcer right proximal lateral leg, debridement wound: Pieces of skin and fibroconnective with ulceration, dense fibrosis and granulation tissue reaction. RADHA:kaya 09/03/19 MICROSCOPIC DESCRIPTION Slides are reviewed. GROSS DESCRIPTION Received in fixative is one container labeled with the patient's name and designated nonhealing ulcer right proximal lateral leg. The specimen consists of multiple pieces of mead soft tissue with a few possible pieces of skin that in aggregate measure 2 x 1.5 x 0.2 cm. The entire specimen is submitted in one cassette. / RADHA:kaya 09/02/19 TC:5 CPT: 44247
[2019-09-02] MEDS: Lactated Ringers 1,000 ML 100 ML IV ×2 (09:29→14:07)
[2019-09-02 09:51] LABS: Bedside Glucose 135 mg/dL (70-110)
[2019-09-02] MEDS: Mupirocin Ointment 22gm Tube 1 APPLIC (10:40)
--- NOTE | 2019-09-02 11:55 | PCM.OPRPT ---
Report of Operation Date of Procedure: 09/02/19 Pre-Operative Diagnosis: 1. 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 2. History of ORIF right tibial plateau fracture. 3. History of MRSA. 4. Diabetes mellitus. 5. Status right knee replacement, medial compartment. 6. History of fall. Post-Operative Diagnosis: Same. Surgery/Procedure Performed:: Excisional debridement nonhealing diabetic MRSA ulcer right proximal lateral leg with STSG reconstruction from the right flank (36 cm2) and placement of AmnioFill Placental Connective Tissue Powder (250 mg) and placement of BELLA NPWT device. Description of Surgical Findings:: 74 year old man presents with a nonhealing diabetic MRSA ulcer right proximal lateral leg after sustaining a right tibial plateau fracture back in 02/04. At that time, he fell at home which led to the fracture. He underwent ORIF of the fracture in 02/04. He developed some dry eschar on the incision line. Recently it started draining and the culture showed MRSA. He also has positive blood cultures for MRSA. He was on Vancomycin. He went to surgery on 03/05/19 where he underwent surgical preparation right proximal lateral leg with incision and drainage and excisional debridement nonhealing necrotic MRSA ulcer with exposed hardware (105 cm2). At present he is doing daily Silver dressing changes. Operative culture showed MRSA. He was placed on Vancomycin and Rifampin. He started with Vancomycin and ended with Ceftaroline. He then started on Doxycycline that he will take indefinitely as long as the hardware remains in place. Prealbumin from 03/06/19 was 14.2. Encourage nutritional supplementation with protein to help the healing process. HgbA1c from 01/29/19 was 6.8. Another wound culture was done on 06/02/19. It showed VRE, Klebsiella pneumoniae, and Anaerobic cocci. He was started on Augmentin and Levaquin and has finished them. He presents today for operative debridement of his nonhealing ulcer with skin grafting. Patient was informed of the risks and complications of the procedure including alternatives to surgery. These were discussed with the patient personally. Patient voices understanding and wishes to proceed. Size of skin graft right proximal lateral leg - 12 x 3 cm. I used AmnioFill Placental Connective Tissue Powder, 250 mg. Lot Number - [id number]. Catalog Number - [id number]. Expiration - March 19, 2024. I used Maris absorbable hemostat. Reference Number - [id number]. Lot Number - [id number]. Expiration - May 16, 2024. 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 Drains: None. Estimated Blood Loss (mL): 50 ml. Description of Procedure: Patient was taken to OR in supine position and was placed under general anesthesia. The right leg and right flank areas were prepped and draped in the usual fashion. SCD's were placed for DVT prophylaxis. Perioperative antibiotics were given intravenously. Using xylocaine with epinephrine, the right flank donor area was infiltrated. After waiting 5 minutes for the anesthetic to take effect, I made an oblique elliptical excision down into the subcutaneous tissue. The subcutaneous tissue was removed from the undersurface of the dermis including some of the deeper dermis thus fashioning a thick split thickness skin graft. The skin graft was placed in saline. I then excised some of the deeper subcutaneous tissue to aid in wound closure. The wound was irrigated with saline. Hemostasis was obtained with electrocautery. I then sprayed Maris absorbable hemostat into the wound to minimize seroma formation postoperatively. The wound was closed in a multiple layered fashion with 2-0 Vicryl running suture for the Noemí's fascia. The deep dermis and subcutaneous tissue was approximated with 3-0 Monocryl interrupted sutures. The skin was approximated with 3-0 V-lock unidirectional barbed running subcuticular suture. This was followed by Histoacryl skin tissue adhesive followed by gauze dressing. I then excised and debrided the nonhealing diabetic MRSA ulcer on the right proximal lateral leg with a scalpel and a curette. Tissue was sent to Pathology for analysis to rule out carcinoma and to Microbiology for culture. A positive culture will necessitate antibiotic therapy. The skin graft was placed on stretch and meshed with a size 15 scalpel. The thick split thickness skin graft was placed in the ulcer and secured to the skin edges with 3-0 Chromic interrupted sutures. 3-0 Chromic sutures were also used for central quilting stabilization. At the time of the placement of the skin graft, I placed AmnioFill placental connective tissue powder into the ulcer to aid in healing of the skin grafts. I used 250 mg. Mepitel nonadherent gauze was applied to the grafts followed by Bactroban ointment. Compression of the graft was obtained with BELLA NPWT device. Good compression was seen on the devices. This was followed by a compression alexia wrap. The size of the skin graft right proximal lateral leg was 12 x 3 cm or 36 cm2. Patient tolerated the procedure well and was sent to PACU in satisfactory condition. Patient will be sent upstairs for continued postop care. He will be discharged tomorrow when He is tolerating po analgesia. He will keep his right leg elevated during the initial postop period. He [facility] early next week for a skin graft check and removal of the BELLA NPWT devices and for discussion of the pathology report and the microbiology report. A positive culture will necessitate antibiotic therapy. Grafts/Implants Used: AmnioFill Placental Connective Tissue Powder. - Complications None. - Admit VTE Documentation VTE Present on Admission: No VTE Mechan Device Prophylaxis: SCD's VTE Pharm Prophylaxis ordered?: No Code Visit Surgery Charges CPT - 77494 ICD-10 - L97.916, A49.02, S82.101S, T84.498A, Z96.651, E11.9, W19.xxxS 26447 L97.916, A49.02, S82.101S, T84.498A, Z96.651, E11.9, W19.xxxS
[2019-09-02 12:26] LABS: Bedside Glucose 111 mg/dL (70-110)
[2019-09-02] MEDS: Lactated Ringers 1,000 ML 60 ML IV (12:39)
--- NOTE | 2019-09-02 16:15 | PCM.PN.HOSP ---
Subjective: Consult for post-op medical management: 74-year-old with past medical history of hypertension, type II DM, hypothyroidism, history of MRSA in right lateral leg wound. Patient had sustained a bicondylar right tibial plateau fracture in January 2019. He underwent open reduction internal fixation of the right bicondylar tibial plateau fracture. He was admitted back in the hospital a month later and underwent incision and drainage and excisional debridement of nonhealing necrotic MRSA ulcer. Started on vancomycin and rifampin. He had 6 weeks of IV antibiotics- Vancomycin and later had ceftaroline. He was put on doxycycline indefinitely. Admitted this time for operative debridement of his nonhealing ulcer and skin grafting. Denied any complaints. He has had of hearing. His pain is controlled, 5/10. He denied any fever or chills or shortness of breath. Vitals show temperature of 97.4F, heart rate of 62, blood pressure 166/81, respiratory rate is 18, SPO2 is 97% on 2 L of oxygen Vitals/I&O's: Vital Signs Temp Pulse Resp BP Pulse Ox 97.4 F L 62 18 166/81 H 99 09/02/19 15:42 09/02/19 15:42 09/02/19 15:42 09/02/19 15:42 09/02/19 16:10 Oxygen Flow Rate (L/min) 4 Oxygen Delivery Method Nasal Cannula Weight: 116.4 kg Body Mass Index (BMI) 40.1 Finger Stick Blood Glucose 89 Intake and Output for Last 24 Hours 08/31/19 09/01/19 09/02/19 23:59 23:59 23:59 Intake Total 1324 / 1324 Balance 1324 / 1324 General: Alert, Oriented x3, Cooperative, No apparent distress, - - on 2L oxygen HEENT: Atraumatic, PERRLA, EOMI, Normocephalic Oral: Moist Mucosa Neck: Supple Lungs: Clear to auscultation, Normal air movement Cardiovascular: Regular rate, Regular Rhythm, Normal S1, Normal S2, No murmurs Abdomen: Bowel Sounds Present, Soft, Non Tender, Non-Distended, No Hepato-splenomegaly Extremities: Edema - bilateral l Skin: No rashes Musculoskeletal: Tenderness - DONTAE-wraps over the right knee Lymphatic: No Cervical, Supraclavicular, or Inguinal Adenopathy Neurological: Cranial nerves II-XII grossly intact, Neuro grossly intact Psych/Mental Status: Normal Affect, Appropriate Microbiology Past 72 Hours 09/02/19 12:11 Tissue Ulcer - Tissue Gram Stain - Final Laboratory Results 09/02/19 09:26: POC Glucose 135 H 09/02/19 12:21: POC Glucose 111 H Current Medications Acetaminophen (Tylenol) 1,000 mg PO Q6H PRN PRN PRN Reason: Pain Score 1-3/10 Allopurinol (Zyloprim) 100 mg PO DAILY [facility] Docusate Sodium (Colace) 100 mg PO BID CHERYL Doxepin HCl (Sinequan) 25 mg PO QHS [facility] Empagliflozin (Jardiance) 25 mg PO DAILY [facility] Ergocalciferol (Vitamin D) 50,000 unit PO QMONTH [facility] Furosemide (Lasix) 40 mg PO BIDLX [facility] Hydromorphone HCl (Dilaudid Inj) 1 mg IV Q3H PRN PRN PRN Reason: Pain Score 6-10/10 Lactated Ringer's () 1,000 mls @ 100 mls/hr IV .Q10H [facility] Last Admin: 09/02/19 14:07 Dose: 100 mls/hr Documented by: Ampicillin Sodium/Sulbactam (Sodium 3 gm/ Sodium Chloride) 112 mls @ 150 mls/hr IV Q6 [facility] Ceftaroline Fosamil 600 mg/ (Dextrose) 120 mls @ 100 mls/hr IV Q12 [facility] Lactated Ringer's () 1,000 mls @ 60 mls/hr IV .[id number] [facility] Last Infusion: 09/02/19 14:11 Dose: Infused Documented by: Levothyroxine Sodium (Synthroid) 112 mcg PO DAILY@0600 [facility] Metoprolol Succinate (Toprol Xl (Beta Romel)) 12.5 mg PO BID [facility] Non-Formulary Medication (Dulaglutide) 1.5 mg SQ QWEEK [facility] Nutritional Formula (Edy - [place] Flavor) 1 packet PO BIDCM [facility] Ondansetron HCl (Zofran) 4 mg IV Q6H PRN PRN PRN Reason: NAUSEA Oxycodone HCl (Oxyir) 10 mg PO Q4H PRN PRN PRN Reason: Pain Score 6-10/10 Pantoprazole Sodium (Protonix) 40 mg PO DAILY [facility] Paroxetine HCl (Paxil) 40 mg PO DAILY CHERYL Polyethylene Glycol (Miralax) 17 gm PO DAILY CHERYL Potassium Chloride (K-Dur) 20 meq PO BIDCM CHERYL Promethazine HCl (Phenergan Tablet) 25 mg PO Q4H PRN PRN PRN Reason: NAUSEA/VOMITING Simvastatin (Zocor) 40 mg PO QHS CHERYL Sodium Chloride () 5 - 15 ml IV UD PRN PRN Reason: SALINE FLUSH STROKE Vital Signs/Narrative: Vital Signs Temp Pulse Resp BP Pulse Ox 09/02/19 16:10 99 09/02/19 15:42 97.4 F L 62 18 166/81 H 97 09/02/19 14:27 95 09/02/19 14:20 80 09/02/19 13:55 97.4 F L 64 16 178/86 H 95 09/02/19 12:50 96.9 F L 66 16 166/84 H 95 09/02/19 12:30 65 16 181/83 H 95 Medical Necessity - Tobacco Use Smoking Status: Former smoker Tobacco Use: Non-smoker Assessment/Plan All Active Problems (Last Reviewed 07/18/19 @ 14:00 by Jethro Dozier MD) Unspecified fracture of upper end of right tibia, sequela (Acute) Hypokalemia (Resolved) Hypothyroidism (Resolved) 73 years old male patient with past medical history of hypertension, type II DM, history of MRSA infected right proximal lateral leg ulcer, status post wound debridement and prolonged IV antibiotics in February 2019 comes in for further wound debridement of nonhealing ulcer and skin grafting. 1. POD #1, s/p wound debridement for non-healing right proximal leg ulcer and skin grafting History of MRSA bacteremia Post-op cultures are pending, on IV Unasyn and ceftaroline Pain is controlled, wound care per plastic surgery, ID consult 2. Type 2 diabetes mellitus, blood sugars are fairly controlled On Jardiance. Will Blood glucose checks with insulin sliding scale 3. Hypertension, stable, on metoprolol, will monitor 4. Hypothyroidism, on levothyroxine. 5. Chronic diastolic CHF, not in acute exacerbation, will monitor for acute exacerbation. 6. Gout, on allopurinol. 7. Depression, on trazodone and Paxil. 8. DVT prophylaxis -Lovenox SC. Code Visit Inpatient E&M: 64551 Subs Hosp L2
[2019-09-02] MEDS: oxyCODONE 5 MG Tablet 10 MG PO (20:58)
[2019-09-02] MEDS: Docusate Sodium 100 MG Capsule PO (21:04)
[2019-09-02] MEDS: Doxepin Hcl 25 MG Capsule PO (21:05)
[2019-09-02] MEDS: Metoprolol(XL)Succ 25 MG Tablet 12.5 MG PO (21:05)
[2019-09-02 23:56] LABS: Bedside Glucose 135 mg/dL (70-110)
[2019-09-03] VITALS (12 sets, daily range): BP systolic 143–191; BP diastolic 59–103; PULSE 57–73; RESP 18; TEMP 36.7–37.1; O2SAT 93–97
[2019-09-03] MEDS: oxyCODONE 5 MG Tablet 10 MG PO (02:53)
[2019-09-03 05:55] LABS: Hemoglobin 12.4 g/dL (13.0-16.5); Mean Corpuscular Hgb 27.9 pg (27.0-32.0); Mean Corpuscular Volume 90.1 fL (80-94); Mean Platelet Vol. 9.8 fl (6.2-12.0); Platelet Count 313 K/mm3 (150-450); RBC Distribution Width CV 14.6 % (11.6-14.6); RBC Distribution Width SD 47.9 fl (35.1-43.9); Red Blood Count 4.44 M/mm3 (4.6-6.2); White Blood Count 8.8 K/mm3 (4.4-11.0)
[2019-09-03 06:01] LABS: Erythrocyte Sedimentation Rate 33 mm/hr (0-20)
[2019-09-03 06:18] LABS: Anion Gap 5 (5-15); BUN 19 mg/dL (7-18); BUN/Creat Ratio 26.9 RATIO (10-20); Calcium,Total 8.4 mg/dL (8.5-10.1); Chloride 108 mmol/L (98-107); Creatinine, Serum 0.71 mg/dL (0.70-1.30); EST Glomerular Filtration Rate 116 mL/min (>60); Est Glom Filt Rate - Afr Amer 140 mL/min (>60); Estimated Creatinine Clearance 60.59 ml/min; Glucose 112 mg/dL (74-106); Prealbumin 24.1 mg/dL (20.0-40.0); Sodium Level 143 mmol/L (136-145)
[2019-09-03] MEDS: Levothyroxine 112 MCG Tablet PO (06:48)
[2019-09-03 07:08] LABS: Scan Indicated on CBC? Y/N NO
[2019-09-03 07:46] LABS: Bedside Glucose 110 mg/dL (70-110)
[2019-09-03] MEDS: Lactated Ringers 1,000 ML 50 ML IV (10:22)
[2019-09-03] MEDS: Polyethylene Glycol 3350 17 GM PACKET PO (10:27)
[2019-09-03] MEDS: Allopurinol 100 MG Tablet PO (10:27)
[2019-09-03] MEDS: Empagliflozin 25 MG Tablet PO (10:27)
[2019-09-03] MEDS: Furosemide 40 MG Tablet PO ×2 (10:27→17:12)
[2019-09-03] MEDS: Docusate Sodium 100 MG Capsule PO ×2 (10:28→21:18)
[2019-09-03] MEDS: Metoprolol(XL)Succ 25 MG Tablet 12.5 MG PO ×2 (10:28→20:49)
[2019-09-03] MEDS: Paroxetine 20 MG Tablet 40 MG PO (10:29)
[2019-09-03] MEDS: Pantoprazole Sodium 40 MG Tablet PO (10:29)
--- NOTE | 2019-09-03 11:51 | PN_ITS ---
Subjective: Chief complaint: Follow-up after consultation for postoperative medical management. Patient seen and examined. No acute events overnight. Patient is very hard of hearing and he was not able to hear any question from my side. He did not complain of any pain. His vital signs are stable. - Physical Exam General: Alert, Cooperative, No apparent distress, - - Sleepy but arousable, he is very hard of hearing. HEENT: Atraumatic, PERRLA, EOMI, Normocephalic Oral: Moist Mucosa, No Gingival or Mucosal Lesions/ Ulcerations Neck: Supple, No JVD, Negative Carotid Bruits, Trachea Midline, Thyroid Normal Size and Texture Lungs: Clear to auscultation, No rhonchi, No wheeze, No rales, Diminished Cardiovascular: Regular rate, Regular Rhythm, Normal S1, Normal S2, PMI Normal Abdomen: Bowel Sounds Present, Soft, Non Tender, Non-Distended, No Hepato- splenomegaly, Obese Extremities: No clubbing, No cyanosis, Edema, - - Stasis dermatitis. Skin: No rashes, No breakdown Lymphatic: No Cervical, Supraclavicular, or Inguinal Adenopathy Neurological: Cranial nerves II-XII grossly intact, Neuro grossly intact Psych/Mental Status: Appropriate, Flat Affect Vital Signs Temp Pulse Resp BP Pulse Ox 98.1 F 57 L 18 147/66 H 93 09/03/19 08:30 09/03/19 10:28 09/03/19 08:30 09/03/19 08:30 09/03/19 08:30 Oxygen Flow Rate (L/min) 2 Oxygen Delivery Method Room Air Weight: 256 lb 9.889 oz Body Mass Index (BMI) 40.1 Finger Stick Blood Glucose 89 Intake and Output for Last 24 Hours 09/01/19 09/02/19 09/03/19 23:59 23:59 23:59 Intake Total 2982.67 / 3422.67 1409.83 / 1409.83 Output Total 250 / 250 Balance 2982.67 / 3272.67 1159.83 / 1159.83 Microbiology Past 72 Hours 09/02/19 12:11 Gram Stain - Final Tissue Ulcer - Tissue Laboratory Tests Past 24 Hrs 09/03/19 09/03/19 05:38 05:38 WBC 8.8 RBC 4.44 L Hgb 12.4 L Hct 40.0 MCV 90.1 MCH 27.9 MCHC 31.0 L RDW Std Deviation 47.9 H RDW Coeff of Geovanni 14.6 Plt Count 313 MPV 9.8 ESR 33 H Sodium 143 Potassium 4.0 Chloride 108 H Carbon Dioxide 30.0 Anion Gap 5 BUN 19 H Creatinine 0.71 Estim Creat Clear Calc 60.59 Est GFR (MDRD) Af Amer 140 Est GFR (MDRD) Non-Af 116 BUN/Creatinine Ratio 26.9 H Glucose 112 H Calcium 8.4 L C-React Prot Ext Range 18.40 H Prealbumin 24.1 POC Glucose 09/03/19 09/02/19 09/02/19 06:52 21:31 12:21 POC Glucose 110 135 H 111 H Medical Necessity - Tobacco Use Smoking Status: Former smoker Tobacco Use: Non-smoker Assessment/Plan This is a 74 years old male patient underwent excisional debridement with skin graft of nonhealing ulcer of the right proximal lateral leg and I am seeing in initial consultation for postoperative medical management. #1 nonhealing ulcer of the right proximal lateral leg: In context of recent history of right tibial plateau fracture status post ORIF, history of MRSA infection, status post excisional debridement of the nonhealing right lateral leg ulcer with skin graft/reconstruction from the right flank, postoperative day 1. He is on IV Unasyn and ceftaroline. His vital signs are stable, afebrile. Routine blood work was unremarkable. Wound culture is pending. He is on IV Dilaudid for pain as well as OxyIR PRN. Dr. Fernando is managing. #2 type 2 diabetes mellitus: Blood sugar has been stable. He is on Jardiance and sliding scale. Home doses of Lantus and Humalog held. #3 hypertension: Blood pressure stable, continue Lasix and metoprolol. #4 hypothyroidism: Stable, continue levothyroxine. #5 chronic diastolic CHF: Clinically stable, compensated. Plan to DC IV fluids, continue Lasix and metoprolol. #6 hyperlipidemia: Continue statins. #7 DVT prophylaxis: SCDs. This note was generated with [employer] software. It may contain incorrect words, spelling, and punctuation that were not noted in checking the note before signing. Code Visit Inpatient E&M: 38628 Subs Hosp L2
[2019-09-03 12:11] LABS: Bedside Glucose 146 mg/dL (70-110)
--- NOTE | 2019-09-03 14:28 | PCM.HP.ID ---
Problem List (1) MRSA (methicillin resistant Staphylococcus aureus) infection Status: Chronic Reason for Consult: wound infection Consulted by: Dr. Fernando History of Present Illness: The patient is a 74 year old M with admit in February with MRSA bacteremia likely from MRSA infected R tib ORIF surg site. Taken to OR 03/[address] Fernando, found to have infection in wound extended down to hardware which was exposed. Due to rash, changed vanc to ceftaroline. Rash resolved, then developed progressive delirium. Changed ceftaroline to dapto with improvement. Completed dapto 04/16, since then on po doxycycline 100mg bid indefinitely. Over the summer, wound cx with VRE, klebs, anaerobes. Given course of levaquin/augmentin. Now taken back to OR 09/[address] Fernando for debridement and skin graft placement. Hardware was not exposed. On ceftaroline/unasyn. Feeling ok. Pt unable to provide full ROS due to difficulty hearing and lack of cooperation. 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) Essential (primary) hypertension (Chronic) Hyperlipidemia (Chronic) Allergies/Adverse Reactions: Allergies cocaine Allergy (Verified 09/02/19 09:17) Unknown vancomycin Allergy (Verified 09/02/19 09:17) Rash atorvastatin calcium [From Lipitor] Adverse Reaction (Verified 09/02/19 09:17) Pain in joints haloperidol [From Haldol] Adverse Reaction (Verified 09/02/19 09:17) Other WENT CRAZY morphine Adverse Reaction (Verified 09/02/19 09:17) Other extremely aggitated oxycodone [From OxyIR] Adverse Reaction (Verified 09/02/19 09:17) Pain in joints extremely aggitated prednisone Adverse Reaction (Verified 09/02/19 09:17) ANXIOUS, INSOMNIA STERIODS Adverse Reaction (Uncoded 09/02/19 09:17) Other ANXIETY INSOMNIA Home Medications: Ambulatory Orders Medication Instructions Recorded Paroxetine HCl [Paxil] 40 mg PO DAILY 09/27/16 Potassium Chloride [K-Dur] 20 meq PO BIDCM 09/27/16 Simvastatin [Zocor] 40 mg PO QHS 09/27/16 Allopurinol 100 mg PO DAILY 05/17/18 Dulaglutide [Trulicity] 1.5 mg SQ QWEEK 01/26/19 Empagliflozin [Jardiance] 25 mg PO DAILY 02/03/19 Metoprolol(XL)Succ [Toprol Xl 12.5 mg PO BID 02/03/19 (Beta Romel)] Acetaminophen [Tylenol] 1,000 mg PO Q6H PRN PRN tab 02/24/19 Levothyroxine [Synthroid] 112 mcg PO DAILY@0600 03/10/19 Nystatin Powder [Mycostatin Powder] 1 applic TOPICAL 0600,2200 PRN 03/10/19 Doxepin HCl [Sinequan] 25 mg PO QHS #30 cap 04/24/19 Doxycycline 100 mg PO BID #60 cap 04/24/19 Insulin Lispro [Humalog KwikPen] 17 unit SUBCUT TIDAC #1 insuln.pen 04/24/19 Mineral Oil/Petrolatum,White 1 applic TOPICAL 0600,2200 jar 04/24/19 [Eucerin] Nutritional Supplement [Edy - 1 packet PO BIDCM #60 packet 04/24/19 ORANGE FLAVOR] Pantoprazole Sodium [Protonix] 40 mg PO DAILY #30 tab 04/24/19 Polyethylene Glycol 3350 [Miralax] 17 gm PO DAILY #30 packet 04/24/19 torsemide 20 mg tablet 20 mg PO BID tab 07/18/19 Ergocalciferol [Vitamin D] 50,000 unit PO QMONTH 08/29/19 Insulin Glargine [Lantus SoloStar 25 units SUBCUT QHS 08/29/19 Pen] - Social History SMOKING STATUS:: Former smoker Vital Signs Temp Pulse Resp BP Pulse Ox 98.1 F 57 L 18 147/66 H 93 09/03/19 08:30 09/03/19 10:28 09/03/19 08:30 09/03/19 08:30 09/03/19 08:30 Oxygen Flow Rate (L/min) 2 Oxygen Delivery Method Room Air Weight: 116.4 kg Body Mass Index (BMI) 40.1 Finger Stick Blood Glucose 89 Microbiology Past 72 Hours 09/02/19 12:11 Gram Stain - Final Tissue Ulcer - Tissue Wound Culture - Preliminary Gram positive organism Laboratory Tests Past 24 Hrs 09/03/19 09/03/19 05:38 05:38 WBC 8.8 RBC 4.44 L Hgb 12.4 L Hct 40.0 MCV 90.1 MCH 27.9 MCHC 31.0 L RDW Std Deviation 47.9 H RDW Coeff of Geovanni 14.6 Plt Count 313 MPV 9.8 ESR 33 H Sodium 143 Potassium 4.0 Chloride 108 H Carbon Dioxide 30.0 Anion Gap 5 BUN 19 H Creatinine 0.71 Estim Creat Clear Calc 60.59 Est GFR (MDRD) Af Amer 140 Est GFR (MDRD) Non-Af 116 BUN/Creatinine Ratio 26.9 H Glucose 112 H Calcium 8.4 L C-React Prot Ext Range 18.40 H Prealbumin 24.1 - Other Studies Radiology: [] reviewed Other Studies: [] Route of nutrition/ use of supplements: [] Nutritional Intake: [] IV Site: [] Carney Catheter: [] - Physical Exam General: Alert, No apparent distress HEENT: Atraumatic, PERRLA, EOMI Neck: Supple, No Nodes Lungs: Clear to auscultation, Normal air movement Cardiovascular: Regular rate, Regular Rhythm Abdomen: Soft, Non Tender, Non-Distended Extremities: No edema Skin: Ulcer/ Wound - bandaged s/p OR IV Site: Peripheral, without redness Musculoskeletal: No Tenderness to Palpation of Joints or Extremities Neurological: Cranial nerves II-XII grossly intact - Assessment/Plan Antibiotics: [] Assessment/Plan: [] RLE ulcer with underlying hardware and recurrent infections - surg cx showing rare gram pos on gram stain. Has h/o VRE, MRSA, and klebs. Will change ceftaroline to dapto to make sure we are covering for VRE empirically; he also had some delirium previously while on ceftaroline. Cont unasyn. Could be candidate for oral abx at discharge. Will follow
[2019-09-03] MEDS: hydrALAZINE 20 MG/ML Vial 10 MG IV ×2 (16:09→22:33)
[2019-09-03] MEDS: 0.9% Saline Lock 10 ML Syringe IV ×3 (16:09→23:58)
[2019-09-03 17:00] LABS: Bedside Glucose 122 mg/dL (70-110)
[2019-09-03] MEDS: Glucerna Shake 120 ML LIQUID PO ×2 (17:11→21:17)
--- NOTE | 2019-09-03 18:34 | PCM.PN.SRG ---
Subjective: Postop #1 Patient is resting comfortably. - Physical Exam General: Alert, Oriented x3 HEENT: PERRLA, EOMI Oral: Moist Mucosa Neck: Supple Abdomen: Soft, Non-Distended Extremities: No clubbing, No cyanosis, Edema - mild edema right leg. Skin: Ulcer/ Wound - BELLA NPWT device dressing is stable. Minimal drainage is seen in the gauze. Neurological: Cranial nerves II-XII grossly intact Psych/Mental Status: Normal Affect, Appropriate Vital Signs Temp Pulse Resp BP Pulse Ox 98.0 F 64 18 143/103 H 96 09/03/19 15:38 09/03/19 16:09 09/03/19 15:38 09/03/19 18:07 09/03/19 15:38 Oxygen Flow Rate (L/min) 2 Oxygen Delivery Method Room Air Weight: 256 lb 9.889 oz Body Mass Index (BMI) 40.1 Finger Stick Blood Glucose 89 Intake and Output for Last 24 Hours 09/01/19 09/02/19 09/03/19 23:59 23:59 23:59 Intake Total 2982.67 / 3422.67 2587.50 / 2587.50 Output Total 250 / 250 Balance 2982.67 / 3272.67 2337.50 / 2337.50 Microbiology Past 72 Hours 09/02/19 12:11 Gram Stain - Final Tissue Ulcer - Tissue Wound Culture - Preliminary Gram positive organism Laboratory Tests Past 24 Hrs 09/03/19 09/03/19 05:38 05:38 WBC 8.8 RBC 4.44 L Hgb 12.4 L Hct 40.0 MCV 90.1 MCH 27.9 MCHC 31.0 L RDW Std Deviation 47.9 H RDW Coeff of Geovanni 14.6 Plt Count 313 MPV 9.8 ESR 33 H Sodium 143 Potassium 4.0 Chloride 108 H Carbon Dioxide 30.0 Anion Gap 5 BUN 19 H Creatinine 0.71 Estim Creat Clear Calc 60.59 Est GFR (MDRD) Af Amer 140 Est GFR (MDRD) Non-Af 116 BUN/Creatinine Ratio 26.9 H Glucose 112 H Calcium 8.4 L C-React Prot Ext Range 18.40 H Prealbumin 24.1 POC Glucose 09/03/19 09/03/19 09/03/19 16:56 11:50 06:52 POC Glucose 122 H 146 H 110 09/02/19 21:31 POC Glucose 135 H Medical Necessity - Tobacco Use Smoking Status: Former smoker Tobacco Use: Non-smoker Assessment/Plan 1. 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 2. History of ORIF right tibial plateau fracture. 3. History of MRSA. 4. Diabetes mellitus. 5. Status right knee replacement, medial compartment. 6. History of fall. 7. s/p excisional debridement nonhealing diabetic MRSA ulcer right proximal lateral leg with STSG reconstruction from the right flank (36 cm2) and placement of AmnioFill Placental Connective Tissue Powder (250 mg) and placement of BELLA NPWT device. Patient is resting comfortably. BELLA NPWT device is functioning. Minimal drainage seen in the gauze. Operative culture shows Gram positive organism. He was treated perioperatively with Unasyn and Ceftaroline. The patient was seen by Infectious Diseases who recommended changing the Ceftaroline to Daptomycin. Awaiting further identification of the Gram positive organism. Prealbumin was 24.1. Encourage nutritional supplementation with protein to help the healing process. When the antibiotics are finalized, will discharge home. [facility]/19.
[2019-09-03] MEDS: Acetaminophen 500 MG Tablet 1000 MG PO (20:48)
[2019-09-03] MEDS: Menthol/Lanolin/Calamine/Znox 113 GM Tube 1 APPLIC TOPICAL (21:12)
[2019-09-03] MEDS: Doxepin Hcl 25 MG Capsule PO (21:19)
[2019-09-03 21:46] LABS: Bedside Glucose 120 mg/dL (70-110)
[2019-09-03] MEDS: Sodium Chloride 0.65% 1 SPRAY SPRAY.BTL NASAL (23:08)
[2019-09-04 02:17] VITALS: BP 158/76; PULSE 70; RESP 18; TEMP 37.1; O2SAT 96
[2019-09-04] MEDS: Menthol/Lanolin/Calamine/Znox 113 GM Tube 1 APPLIC TOPICAL (05:35)
[2019-09-04] MEDS: 0.9% Saline Lock 10 ML Syringe IV (05:41)
[2019-09-04] MEDS: Levothyroxine 112 MCG Tablet PO (05:47)
[2019-09-04 05:54] LABS: Hemoglobin 13.1 g/dL (13.0-16.5); Mean Corp Hgb Conc 31.2 g/dL (32-36); Mean Corpuscular Hgb 27.3 pg (27.0-32.0); Mean Corpuscular Volume 87.5 fL (80-94); Mean Platelet Vol. 9.7 fl (6.2-12.0); Platelet Count 334 K/mm3 (150-450); RBC Distribution Width CV 14.6 % (11.6-14.6); RBC Distribution Width SD 46.5 fl (35.1-43.9); White Blood Count 9.2 K/mm3 (4.4-11.0)
[2019-09-04 06:11] LABS: Anion Gap 7 (5-15); BUN 17 mg/dL (7-18); BUN/Creat Ratio 22.3 RATIO (10-20); Calcium,Total 8.5 mg/dL (8.5-10.1); Chloride 103 mmol/L (98-107); Creatinine, Serum 0.76 mg/dL (0.70-1.30); EST Glomerular Filtration Rate 106 mL/min (>60); Est Glom Filt Rate - Afr Amer 128 mL/min (>60); Estimated Creatinine Clearance 60.59 ml/min; Glucose 113 mg/dL (74-106); Potassium 3.2 mmol/L (3.5-5.1); Sodium Level 141 mmol/L (136-145)
[2019-09-04 07:00] LABS: Bedside Glucose 117 mg/dL (70-110)
[2019-09-04 08:10] VITALS: BP 175/74; PULSE 72; RESP 18; TEMP 36.6; O2SAT 95
[2019-09-04] MEDS: Furosemide 40 MG Tablet PO (08:13)
[2019-09-04] MEDS: Docusate Sodium 100 MG Capsule PO (08:13)
[2019-09-04] MEDS: Polyethylene Glycol 3350 17 GM PACKET PO (08:13)
[2019-09-04 08:14] VITALS: PULSE 72
[2019-09-04] MEDS: Empagliflozin 25 MG Tablet PO (08:14)
[2019-09-04] MEDS: Metoprolol(XL)Succ 25 MG Tablet 12.5 MG PO (08:14)
[2019-09-04] MEDS: Paroxetine 20 MG Tablet 40 MG PO (08:15)
[2019-09-04] MEDS: Allopurinol 100 MG Tablet PO (08:15)
[2019-09-04] MEDS: Pantoprazole Sodium 40 MG Tablet PO (08:15)
[2019-09-04] MEDS: Glucerna Shake 120 ML LIQUID PO (08:24)
--- NOTE | 2019-09-04 08:49 | PCM.PROGNOTE ---
Subjective: Chief complaint: Follow-up after consultation for postoperative medical management. Patient seen and examined. No acute events overnight. This morning, he is awake, alert and more able to communicate than yesterday. He was able to hear and answer all of my questions appropriately. He denied any right leg pain. He complains of frequency, no dysuria or hematuria. He has been on Lasix. He complains of mild headache. His blood pressure has been elevated, other vital signs are stable. - Physical Exam General: Alert, Oriented x3, Cooperative, No apparent distress HEENT: Atraumatic, PERRLA, EOMI, Normocephalic Oral: Moist Mucosa, No Gingival or Mucosal Lesions/ Ulcerations Neck: Supple, No JVD, Negative Carotid Bruits, Trachea Midline, Thyroid Normal Size and Texture Lungs: Clear to auscultation, No rhonchi, No wheeze, No rales, Diminished Cardiovascular: Regular rate, Regular Rhythm, Normal S1, Normal S2, PMI Normal Abdomen: Bowel Sounds Present, Soft, Non Tender, Non-Distended, No Hepato-splenomegaly, Obese Extremities: No clubbing, No cyanosis, Edema - States dermatitis. Skin: No rashes, No breakdown Lymphatic: No Cervical, Supraclavicular, or Inguinal Adenopathy Neurological: Cranial nerves II-XII grossly intact, Neuro grossly intact Psych/Mental Status: Normal Affect, Appropriate, Alert and oriented to time, place, person, mood and affect Vital Signs Temp Pulse Resp BP Pulse Ox 97.8 F 72 18 175/74 H 95 09/04/19 08:10 09/04/19 08:14 09/04/19 08:10 09/04/19 08:10 09/04/19 08:10 Oxygen Flow Rate (L/min) 2 Oxygen Delivery Method Room Air Weight: 256 lb 9.889 oz Body Mass Index (BMI) 40.1 Finger Stick Blood Glucose 89 Intake and Output for Last 24 Hours 09/02/19 09/03/19 09/04/19 23:59 23:59 23:59 Intake Total 2982.67 / 3422.67 2793.75 / 2793.75 529.5 / 529.5 Output Total 250 / 250 400 / 400 Balance 2982.67 / 3272.67 2543.75 / 2543.75 129.5 / 129.5 Microbiology Past 72 Hours 09/02/19 12:11 Gram Stain - Final Tissue Ulcer - Tissue Wound Culture - Preliminary Gram positive organism Anaerobic Culture - Preliminary Checking for anaerobes, further studies to follow. Laboratory Tests Past 24 Hrs 09/04/19 09/04/19 05:26 05:26 WBC 9.2 RBC 4.80 Hgb 13.1 Hct 42.0 MCV 87.5 MCH 27.3 MCHC 31.2 L RDW Std Deviation 46.5 H RDW Coeff of Geovanni 14.6 Plt Count 334 MPV 9.7 Sodium 141 Potassium 3.2 L Chloride 103 Carbon Dioxide 31.0 Anion Gap 7 BUN 17 Creatinine 0.76 Estim Creat Clear Calc 60.59 Est GFR (MDRD) Af Amer 128 Est GFR (MDRD) Non-Af 106 BUN/Creatinine Ratio 22.3 H Glucose 113 H Calcium 8.5 POC Glucose 09/04/19 09/03/19 09/03/19 06:44 21:16 16:56 POC Glucose 117 H 120 H 122 H 09/03/19 11:50 POC Glucose 146 H Medical Necessity - Tobacco Use Smoking Status: Former smoker Tobacco Use: Non-smoker Assessment/Plan This is a 74 years old male patient underwent excisional debridement with skin graft of nonhealing ulcer of the right proximal lateral leg and I am seeing in initial consultation for postoperative medical management. #1 nonhealing ulcer of the right proximal lateral leg: In context of recent history of right tibial plateau fracture status post ORIF, history of MRSA infection, status post excisional debridement of the nonhealing right lateral leg ulcer with skin graft/reconstruction from the right flank, postoperative day 2. He is on IV Unasyn and daptomycin. He has been afebrile, no leukocytosis. Apart from elevated blood pressure, other vital signs are stable. Routine blood work from today remarkable for potassium of 3.2, otherwise normal. Wound culture revealed gram-positive organism, final is pending. He is on IV Dilaudid for pain as well as OxyIR PRN. Dr. Fernando is managing. Plan to replace potassium with oral potassium chloride. #2 type 2 diabetes mellitus: Blood sugar has been stable. He is on Jardiance and sliding scale. Home doses of Lantus and Humalog held. #3 hypertension: Blood pressure uncontrolled, has been up to 170 systolic. He is on Lasix and metoprolol. Plan to start Norvasc 10 mg p.o. daily. #4 hypothyroidism: Stable, continue levothyroxine. #5 chronic diastolic CHF: Clinically stable, compensated. continue Lasix and metoprolol. #6 hyperlipidemia: Continue statins. #7 DVT prophylaxis: SCDs. This note was generated with [employer] dictation software. It may contain incorrect words, spelling, and punctuation that were not noted in checking the note before signing. Code Visit Inpatient E&M: 97136 Subs Hosp L2
--- NOTE | 2019-09-04 10:24 | PN.ID_ITS ---
Subjective: Feeling well, no fever, no n/v/d. - Physical Exam General: Alert, Cooperative, No apparent distress Lungs: Clear to auscultation, Normal air movement Cardiovascular: Regular rate, Regular Rhythm Abdomen: Soft, Non Tender, Non-Distended Skin: Incision - bandaged Vital Signs Temp Pulse Resp BP Pulse Ox 97.8 F 72 18 175/74 H 95 09/04/19 08:10 09/04/19 08:14 09/04/19 08:10 09/04/19 08:10 09/04/19 08:10 Oxygen Flow Rate (L/min) 2 Oxygen Delivery Method Room Air Weight: 116.4 kg Body Mass Index (BMI) 40.1 Finger Stick Blood Glucose 89 Intake and Output for Last 24 Hours 09/02/19 09/03/19 09/04/19 23:59 23:59 23:59 Intake Total 2982.67 / 3422.67 2793.75 / 2793.75 529.5 / 529.5 Output Total 250 / 250 400 / 400 Balance 2982.67 / 3272.67 2543.75 / 2543.75 129.5 / 129.5 Microbiology Past 72 Hours 09/02/19 12:11 Gram Stain - Final Tissue Ulcer - Tissue Wound Culture - Preliminary Gram positive organism Anaerobic Culture - Preliminary Checking for anaerobes, further studies to follow. Laboratory Tests Past 24 Hrs 09/04/19 09/04/19 05:26 05:26 WBC 9.2 RBC 4.80 Hgb 13.1 Hct 42.0 MCV 87.5 MCH 27.3 MCHC 31.2 L RDW Std Deviation 46.5 H RDW Coeff of Geovanni 14.6 Plt Count 334 MPV 9.7 Sodium 141 Potassium 3.2 L Chloride 103 Carbon Dioxide 31.0 Anion Gap 7 BUN 17 Creatinine 0.76 Estim Creat Clear Calc 60.59 Est GFR (MDRD) Af Amer 128 Est GFR (MDRD) Non-Af 106 BUN/Creatinine Ratio 22.3 H Glucose 113 H Calcium 8.5 POC Glucose 09/04/19 09/03/19 09/03/19 06:44 21:16 16:56 POC Glucose 117 H 120 H 122 H 09/03/19 11:50 POC Glucose 146 H Medical Necessity - Tobacco Use Smoking Status: Former smoker Tobacco Use: Non-smoker Route of nutrition/ use of supplements: [] Nutritional Intake: [] IV Site: [] Carney Catheter: [] - Assessment/Plan Antibiotics: [] Assessment/Plan: [] RLE ulcer with underlying hardware and recurrent infections - surg cx showing rare gram pos on gram stain, spoke with micro lab, and so far it appears to be rare growth of a CoNS. Has h/o VRE, MRSA, and klebs. Given small amount of alia wth of CoNS and no current exposed hardware, ok for discharge on augmentin for a week and doxy for ongoing suppressive treatment. Requested micro lab obtain susc testing of the CoNS, will adjust abx as needed. ID followup in 2 weeks. Will follow, d/w case management director
[2019-09-04] MEDS: amLODIPine 10 MG Tablet PO (11:24)
--- NOTE | 2019-09-04 11:35 | CASEMGMT ---
Pt informed RN during preadmission testing he does not have a LW. POA form is scanned into the summary tab of the echart. Pt has Mayda Rosa listed as medical POA. BERLIN Jaffe
--- NOTE | 2019-09-04 12:02 | PCM.PN.SRG ---
Subjective: Postop #2 Patient is resting comfortably. Able to use wheeled walker in limited fashion. Mostly uses hover scooter. - Physical Exam General: Alert, Oriented x3 HEENT: PERRLA, EOMI Oral: Moist Mucosa Neck: Supple Abdomen: Soft, Non-Distended Skin: Incision - skin graft BELLA dressing intact. Functioning with good compression. donor incision right flank dry and intact. Neurological: Cranial nerves II-XII grossly intact Psych/Mental Status: Normal Affect, Appropriate Vital Signs Temp Pulse Resp BP Pulse Ox 97.8 F 72 18 175/74 H 95 09/04/19 08:10 09/04/19 08:14 09/04/19 08:10 09/04/19 08:10 09/04/19 08:10 Oxygen Flow Rate (L/min) 2 Oxygen Delivery Method Room Air Weight: 256 lb 9.889 oz Body Mass Index (BMI) 40.1 Finger Stick Blood Glucose 89 Intake and Output for Last 24 Hours 09/02/19 09/03/19 09/04/19 23:59 23:59 23:59 Intake Total 2982.67 / 3422.67 2793.75 / 2793.75 529.5 / 529.5 Output Total 250 / 250 400 / 400 Balance 2982.67 / 3272.67 2543.75 / 2543.75 129.5 / 129.5 Microbiology Past 72 Hours 09/02/19 12:11 Gram Stain - Final Tissue Ulcer - Tissue Wound Culture - Preliminary Coag Negative Staph Anaerobic Culture - Preliminary Checking for anaerobes, further studies to follow. Laboratory Tests Past 24 Hrs 09/04/19 09/04/19 05:26 05:26 WBC 9.2 RBC 4.80 Hgb 13.1 Hct 42.0 MCV 87.5 MCH 27.3 MCHC 31.2 L RDW Std Deviation 46.5 H RDW Coeff of Geovanni 14.6 Plt Count 334 MPV 9.7 Sodium 141 Potassium 3.2 L Chloride 103 Carbon Dioxide 31.0 Anion Gap 7 BUN 17 Creatinine 0.76 Estim Creat Clear Calc 60.59 Est GFR (MDRD) Af Amer 128 Est GFR (MDRD) Non-Af 106 BUN/Creatinine Ratio 22.3 H Glucose 113 H Calcium 8.5 POC Glucose 09/04/19 09/03/19 09/03/19 06:44 21:16 16:56 POC Glucose 117 H 120 H 122 H 09/03/19 11:50 POC Glucose 146 H Medical Necessity - Tobacco Use Smoking Status: Former smoker Tobacco Use: Non-smoker Assessment/Plan 1. 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 2. History of ORIF right tibial plateau fracture. 3. History of MRSA. 4. Diabetes mellitus. 5. Status right knee replacement, medial compartment. 6. History of fall. 7. s/p excisional debridement nonhealing diabetic MRSA ulcer right proximal lateral leg with STSG reconstruction from the right flank (36 cm2) and placement of AmnioFill Placental Connective Tissue Powder (250 mg) and placement of BELLA NPWT device. Patient is resting comfortably. BELLA NPWT device is functioning. Minimal drainage seen in the gauze. Operative culture shows Coag negative Staph. He is on Daptomycin. Awaiting further identification and sensitivity. Prealbumin was 24.1. Encourage nutritional supplementation with protein to help the healing process. Infectious Diseases recommends discharge of Augmentin for a week followed by suppression with Doxycycline. Discharge home today. [facility]up [facility] on Sunday09/08/19. Will change the BELLA graft dressing at that time. Wrote scripts for Augmentin and Doxycycline. Wrote script for Percocet for pain (30 tabs).
[2019-09-04 12:15] LABS: Bedside Glucose 192 mg/dL (70-110)
--- NOTE | 2019-09-04 12:15 | DCINST_ITS ---
You will use the following diet at home:: No restrictions, Other - encourage nutritional supplementation with protein to help the healing process. Discharge Activity: May Shower - wear plastic bag over right leg when showering., Use Walker, - - no standing. elevate right leg when sitting. patient may ambulate with assist and with a walker. May shower in (days): 1 - wear plastic bag over right leg when showering. Weight Bearing Status: Weight bearing as tolerated Keep extremity elevated above heart level: Right Leg Call your doctor if your incision/area has: Continuous Slow Oozing, Sudden Increased Bleeding, Increased Pain/ Swelling, Increased Redness, Foul Smelling Discharge, Swelling at the incision site, - - the BELLA NPWT device blinks red. Call your doctor if you observe: Fever of 101 or Higher, Coldness, Increased Pain, Shortness of breath, Chest pain, Calf discomfort, Uncontrolled pain Suture Line Care: - - dry dressings as needed to right flank incision. Change Dressing in (Days):: 1 - dry dressing to right flank incision as needed. Remove Dressing in (days):: 4 - will remove the right leg dressing at wound center on sunday09/08/19. Cleanse incision/area with: - - after BELLA NPWT device removed from right leg, may shower. Additional Instructions: Use the Augmentin antibiotics first. After the Augmentin has finished, then begin the Doxycycline indefinitely while hardware is in place. Allergies/Adverse Reactions: Allergies cocaine Allergy (Verified 09/02/19 09:17) Unknown vancomycin Allergy (Verified 09/02/19 09:17) Rash atorvastatin calcium [From Lipitor] Adverse Reaction (Verified 09/02/19 09:17) Pain in joints haloperidol [From Haldol] Adverse Reaction (Verified 09/02/19 09:17) Other WENT CRAZY morphine Adverse Reaction (Verified 09/02/19 09:17) Other extremely aggitated oxycodone [From OxyIR] Adverse Reaction (Verified 09/02/19 09:17) Pain in joints extremely aggitated prednisone Adverse Reaction (Verified 09/02/19 09:17) ANXIOUS, INSOMNIA STERIODS Adverse Reaction (Uncoded 09/02/19 09:17) Other ANXIETY INSOMNIA Medications to take at Discharge Paroxetine HCl [Paxil] 40 mg PO DAILY 09/27/16 Potassium Chloride [K-Dur] 20 meq PO BIDCM 09/27/16 Simvastatin [Zocor] 40 mg PO QHS 09/27/16 Dulaglutide [Trulicity] 1.5 mg SQ QWEEK 01/26/19 Empagliflozin [Jardiance] 25 mg PO DAILY 02/03/19 Metoprolol(XL)Succ [Toprol Xl (Beta Romel)] 12.5 mg PO BID 02/03/19 Acetaminophen [Tylenol] 1,000 mg PO Q6H PRN PRN tab 02/24/19 Levothyroxine [Synthroid] 112 mcg PO DAILY@0600 03/10/19 Nystatin Powder [Mycostatin Powder] 1 applic TOPICAL 0600,2200 PRN 03/10/19 Doxepin HCl [Sinequan] 25 mg PO QHS #30 cap 04/24/19 Insulin Lispro [Humalog KwikPen] 17 unit SUBCUT TIDAC #1 insuln.pen 04/24/19 Mineral Oil/Petrolatum,White [Eucerin] 1 applic TOPICAL 0600,2200 jar 04/24/19 Nutritional Supplement [Edy - ORANGE FLAVOR] 1 packet PO BIDCM #60 packet 04/24/19 Pantoprazole Sodium [Protonix] 40 mg PO DAILY #30 tab 04/24/19 Polyethylene Glycol 3350 [Miralax] 17 gm PO DAILY #30 packet 04/24/19 torsemide 20 mg tablet 20 mg PO BID tab 07/18/19 Ergocalciferol [Vitamin D] 50,000 unit PO QMONTH 08/29/19 Insulin Glargine [Lantus SoloStar Pen] 25 units SUBCUT QHS 08/29/19 Sodium Chloride 0.65% [[place] Nasal [place]] 1 spray NASAL BID PRN 09/03/19 Allopurinol [Zyloprim] 100 mg PO DAILY tab 09/04/19 Amlodipine [Norvasc] 10 mg PO DAILY tab 09/04/19 Amox/Clavulanate Tablet [Augmentin Tablet] 875 mg PO BID #14 tab 09/04/19 Docusate Sodium [Colace] 100 mg PO BID cap 09/04/19 Doxycycline 100 mg PO BID cap 09/04/19 Doxycycline 100 mg PO BID #60 cap 09/04/19 Furosemide [Lasix] 40 mg PO BIDLX tab 09/04/19 Glucagon 1 mg IM .X1 PRN syringe 09/04/19 Glucerna Shake 120 ml PO 4X/DAY liquid 09/04/19 Insulin Lispro [Humalog KwikPen] See Protocol SUBCUT ACHS insuln.pen 09/04/19 Menthol/Lanolin/Calamine/Znox [Calmoseptine Ointment] 1 applic TOPICAL TID tube 09/04/19 Oxycodone HCl/Acetaminophen [Percocet 5/325] 1 tab PO 4X/DAY PRN PRN 7 Days #30 tab 09/04/19 Sodium Chloride 0.65% [[place] Nasal [place]] 1 spray NASAL BID PRN PRN spray.btl 09/04/19 proMETHazine tablet [Phenergan tablet] 25 mg PO Q4H PRN PRN tab 09/04/19 The following prescriptions were given: Amox/Clavulanate Tablet [Augmentin Tablet] 875 mg PO BID #14 tab Transmission Status: Received by [facility]/pharmacy #[id number] Doxycycline 100 mg PO BID #60 cap Prescription Printed Oxycodone HCl/Acetaminophen [Percocet 5/325] 1 tab PO 4X/DAY PRN PRN 7 Days #30 tab PRN Reason: Pain Score 4-5/10 Prescription Printed Primary Care Physician: Gil Wheeler Chi, MD [Primary Care Provider] - Test Results: Test results from this visit will be discussed in further detail at your follow- up appointment, if applicable. Please Follow Up With: Elijah Fernando MD When: sunday09/08/19 at wound center. call [phone] for appt time. Proposed Discharge Date: 09/04/19
[2019-09-04] MEDS: Insulin Lispro 100 UNIT/ML INSULN.PEN SC (12:46)
[2019-09-04] MEDS: Amox/Clavulanate 875 MG Tablet PO (12:46)
[2019-09-04] MEDS: Doxycycline 100 MG CAPSULE PO (12:46)
--- NOTE | 2019-09-04 12:50 | CASEMGMT ---
JOSELITO GALARZA Face to Face with patient for initial transition planning/care coordination assessment. JOSELITO GALARZA introduced self and role at [facility]. Patient sitting in chair, alert and oriented, very hard of hearing, permission given to call for information. JOSELITO GALARZA called and spoke to over the phone. Care providers, pharmacy, and demographics verified. Per patient wishes to discharge home with res[facility] of H[facility]. states she has no further needs or concerns at this time. CM to follow for discharge planning needs that may arise. PCP: Liam Specialists: Abdullahi, plastic; Aamir, ortho Preferred Pharmacy: [facility] Insurance: [employer] [facility] Prescription Benefit: yes Living Will/HPOA: HPOA only, Mayda Rosa LNOK: Living Arrangements: Patient lives with in 1 story home with ramp to enter the home. assists with ADLs Transportation: DME/HHC: Patient has shower chair, bedside commode, hospital bed, lift chair, bradford, walker, wheelchair, hover round, and nebulizer at home. Patient has been to TCU in the past. Patient is current with [facility] for SN. JOSELITO GALARZA called [facility] with resumption of care. Disposition Plan: Patient to discharge home with HHC, family support, and follow-up plans in place. Tata GENTILE, RN, CM
[2019-09-04 14:00] VITALS: BP 160/96; PULSE 69; RESP 18; TEMP 37.3; O2SAT 94
== END 2019-09-04 14:55 | disposition home or self-care (01) | DRG 623 ==
LOC: MS3 12:31
PROVIDERS: Admitting Provider Surgery; Family Provider Family Medicine Geriatric Medicine; PCP Family Medicine Geriatric Medicine; Referring Provider Surgery; Visit Provider Surgery
PROC: 0JBN0ZZ Excision of Right Lower Leg Subcutaneous Tissue and Fascia, Open Approach (ICD-10-PCS; principal; 2019-09-02 09:45)
DX: E11.622 Type 2 diabetes mellitus with other skin ulcer (principal); L97.916 Non-pressure chronic ulcer of unspecified part of right lower leg with bone involvement without evidence of necrosis; T84.498A Other mechanical complication of other internal orthopedic devices, implants and grafts, initial encounter; I50.32 Chronic diastolic (congestive) heart failure; Z68.41 Body mass index [BMI] 40.0-44.9, adult; I11.0 Hypertensive heart disease with heart failure; B95.62 Methicillin resistant Staphylococcus aureus infection as the cause of diseases classified elsewhere; I36.1 Nonrheumatic tricuspid (valve) insufficiency; E03.9 Hypothyroidism, unspecified; E78.5 Hyperlipidemia, unspecified; I89.0 Lymphedema, not elsewhere classified; S82.101S Unspecified fracture of upper end of right tibia, sequela; W19.XXXS Unspecified fall, sequela; M10.9 Gout, unspecified; M17.0 Bilateral primary osteoarthritis of knee; G47.33 Obstructive sleep apnea (adult) (pediatric); K21.9 Gastro-esophageal reflux disease without esophagitis; H91.90 Unspecified hearing loss, unspecified ear; F32.9 Major depressive disorder, single episode, unspecified; F41.9 Anxiety disorder, unspecified; E66.01 Morbid (severe) obesity due to excess calories; Z79.4 Long term (current) use of insulin; Z79.899 Other long term (current) drug therapy; Z96.651 Presence of right artificial knee joint; Z96.641 Presence of right artificial hip joint; Z85.828 Personal history of other malignant neoplasm of skin; Z86.14 Personal history of Methicillin resistant Staphylococcus aureus infection; Z87.891 Personal history of nicotine dependence
CPT/HCPCS: 36415; 80048; 82962; 84134; 85027; 85652; 86140; 87015; 87070; 87075; 87077; 87102; 87116; 87176; 87186; 87205; 87206; 88304; 97162; 97166; 97802; J0878; J7050; J7120; A4216; J0295; J0712; J2405; J3490

== ENCOUNTER 2019-09-15 11:45 | Outpatient (RCR) | payer MEDICARE, SELFPAY ==
[2019-08-19 00:48] VITALS: BP 136/69; PULSE 60; RESP 18; TEMP 36.2
[2019-09-02 13:55] VITALS: BMI 40.1
[2019-09-08 11:31] VITALS: BP 129/73; PULSE 56; RESP 16; TEMP 36.4; BMI 40.1
--- NOTE | 2019-09-08 14:28 | PN.PCM_ITS ---
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 History of Wound: Surgery 03/05/19 - Surgical preparation right proximal lateral leg with incision and drainage and excisional debridement nonhealing necrotic MR SA ulcer with exposed hardware (105 cm2). Right knee is healed. Wound care - Right lateral leg moistened Silver covered by adaptic. Operative culture - MRSA. He was placed on Vancomycin and Rifampin. He has finished the Vancomycin. Prealbumin from 03/06/19 was 14.2. Encourage nutritional supplementation with protein to help the healing process. HgbA1c from 01/29/[address] right leg on 03/04/19 showed the patient is status post medial femoral tibial hemiarthroplasty. The patient is status post open reduction and internal fixation of the proximal tibial plateau fracture with medial placement of screws and sideplate fixation device. There is good alignment. No significant healing of the fracture line is present. Healing fracture of the proximal neck of the fibula. On 09/02/19 he underwent excisional debridement nonhealing diabetic MRSA ulcer right proximal lateral leg with STSG reconstruction from the right flank (36 cm2) and placement of Amniofill Placental Connective Tissue Powder (250 mg) and placement of BELLA NPWT device. He was discharged home on Augmentin and Doxycycline. His surgical wound cultures were positive for resistant Staphylococcus epidermidis. Dr. Pickering placed him on 3 days of Linezolid. Removed drain from right flank, which donor incision looks clean and dry. The skin graft has good vascularizatio and 100 % take. Today he denies fever. His appetite is good. It was recently noted that a bony prominence anteriorly has developed an ulceration. X-ray was done on 05/27/19. It showed healing right proximal tibia and fibula fractures. Some lucency is noted adjacent to the femoral component of left medial compartment knee arthroplasty, limited in evaluation due to projection. Recommend dedicated knee radiographs for further evaluation. A wound culture was done on 06/02/19. It showed VRE, Klebsiella pneumoniae, and Anaerobic cocci. He was started on Augmentin and Levaquin. Progress of Wound: Skin graft with good vascularization and 100 % take. Right flank donor site incision dry and intact. - Physical Exam Vital Signs Temp Pulse Resp BP 97.5 F L 56 L 16 129/73 H 09/08/19 11:31 09/08/19 11:31 09/08/19 11:31 09/08/19 11:31 General: Alert, Oriented x3, Cooperative HEENT: Atraumatic Oral: Moist Mucosa, - - has some white patches on tongue and inner cheeks Lungs: Normal air movement Cardiovascular: Regular rate Abdomen: Soft Extremities: Capillary Refill Less than 3 Seconds, Edema, Peripheral Pulses Normal Skin: Ulcer/ Wound - Right leg skin graft looks good and right flank donor site looks good. Wound Measurements and Assessment WC - Nurse 1 - General Ulcer Measurement Start: 09/08/19 11:30 Freq: Status: Active Protocol: Activity Type Activity Date Activity User E-Sign Co-Sign Detail Recorded Client Recorded Date Recorded By Document 09/08/19 11:31 [facility] [id number] 09/08/19 11:47 [facility] 09/08/19 11:31 Wound Center Nurse 1 [Ulcer Assessment] #3 RLE Lateral -Combined with other wound No -Current Size (cm) - Length 11.1 -Current Size (cm) - Width 4.3 -Current Size (cm) - Depth 0.1 -Total Square Cm 47.73 -Date of Last Picture (Recall this 09/08/19 field) -Photo Taken Yes -Epithelialization None Present -Tunneling No -Undermining/Tunneling No -Circular Undermining No -Exudate Amt Small -Exudate Type Sanguineous -Wound Margin Distinct, Outline Attached -Granulation Amt Medium (34-66%) -Granulation Quality Pale,[place]yr -Slough/Fibrin Yes -Necrosis Amt Small (1-33%) -Necrotic Tissue Type Adherent Slough -Texture (Bria-wound Skin Appearance) Assessed, Excoriation, Scarring -Moisture (Bria-wound Skin Appearance Assessed,Dry/ ) Scaly -Color (Bria-wound Skin Appearance) Assessed, Erythema -Temperature (Bria-wound Skin No Abnormality Appearance) (Pt Warm) -Tenderness on Palpation (Bria-wound No Skin Appearance) -Ulcer Cleansing soap and water -Foul Odor after Cleansing No -Anesthetic Used 4% Lidocaine Solution [Edema Assessment] -Lower Limb Edema Present Yes -Right Calf (cm) 39.5 -Right Ankle (cm) 26.3 WC - Nurse 2 - General Ulcer CM Notes Start: 09/08/19 11:30 Freq: Status: Active Protocol: Activity Type Activity Date Activity User E-Sign Co-Sign Detail Recorded Client Recorded Date Recorded By Document 09/08/19 12:19 [id number] 09/08/19 12:20 09/08/19 12:19 Wound Center Nurse 2 [Procedure/Treatment] #3 RLE Lateral -Correct Patient No -Correct Side, Site, Position No -Correct Procedure No -Procedure Performed No -Post Debridement Size (cm) - Length 0.1 -Post Debridement Size (cm) - Width 0.1 -Post Debridement Size (cm) - Depth 0.1 -Total Square Cm 0.01 -Offloading No -Treatment Response Procedure Tolerated Well [See Physician Procedure note for Specifics] Pain Scale: 0-10 Numeric [Pain] -Is Patient Pain Free? Yes Musculoskeletal: No Tenderness to Palpation of Joints or Extremities Neurological: Neuro grossly intact Psych/Mental Status: Normal Affect, Appropriate Debridement Note Post-Debridement Measurements/Treatment - Nurse 2 - General Ulcer CM Notes Start: 09/08/19 11:30 Freq: Status: Active Protocol: Activity Type Activity Date Activity User E-Sign Co-Sign Detail Recorded Client Recorded Date Recorded By Document 09/08/19 12:19 [id number] 09/08/19 12:20 09/08/19 12:19 Wound Center Nurse 2 #3 RLE Lateral -Correct Patient No -Correct Side, Site, Position No -Correct Procedure No -Procedure Performed No -Post Debridement Size (cm) - Length 0.1 -Post Debridement Size (cm) - Width 0.1 -Post Debridement Size (cm) - Depth 0.1 -Total Square Cm 0.01 -Offloading No -Treatment Response Procedure Tolerated Well Pain Scale: 0-10 Numeric Is Patient Pain Free? Yes No debridement was completed today Assessment/Plan Assessment: 1. 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 2. Recent history of ORIF right tibial plateau fracture. 3. MRSA. 4. MRSA bacteremia. 5. Diabetes mellitus. 6. Status right knee replacement, medial compartment. 7. Fall. 8. Exposed hardware right proximal lateral leg from tibial plateau fracture repair. 9. s/p surgical preparation right proximal lateral leg with incision and drainage and excisional debridement nonhealing necrotic MRSA ulcer with exposed hardware (105 cm2). 10. VRE. 11. Nonhealing ulcer right anterior knee/proximal leg. Plan: Right knee ulcer is healed. Good granulation tissue is seen. The exposed plate and screws has been covered with granulation tissue. Operative culture shows MRSA. He has finished the Vancomycin and will continue Rifampin retirement because of the exposed hardware. He has a ulceration adjacent to the existing ulceration. It is on the anterior knee/proximal leg. There was exposed bone. The bone is now palpable but not exposed. It is covered with granulation tissue. A wound culture was done on 06/02/19. It showed VRE, Klebsiella pneumoniae, and Anaerobic cocci. He was put on Augmentin and Levaquin. Prealbumin was 14.2. Encourage nutritional supplementation with protein to help the healing process. HgbA1c from 01/29/19 was 6.8. Any elective skin graft or flap that is done needs to have a HgbA1c less than 8. Discussed with Dr. Rutledge. He recommends that the patient's best chance for limb salvage is to leave the hardware in. So we can proceed with skin grafting or muscle flap depending on the new onset ulcer on the anterior knee/proximal leg now that there is granulation tissue over the bone. With the improvement in the ulcer, and granulation tissue covering the bone and hardware, may be able to proceed with debridement and skin grafting. If not succesful, then can proceed with a lateral gastrocnemius muscle flap to cover the exposed bone and hardware followed by skin grafting over the muscle. Patient and his voice understanding. X-ray was done on 05/27/19. It showed healing right proximal tibia and fibula fractures. Some lucency is noted adjacent to the femoral component of left medial compartment knee arthroplasty, limited in evaluation due to projection. Recommend dedicated knee radiographs for further evaluation. Patient was informed of the risks and complications of the procedure including alternatives to surgery. These were discussed with him personally. He voices understanding and wishes to proceed. On 09/02/19 he underwent excisional debridement nonhealing diabetic MRSA ulcer right proximal lateral leg with STSG reconstruction from the right flank (36 cm2) and placement of Amniofill Placental Connective Tissue Powder (250 mg) and placement of BELLA NPWT device. He was discharged home on Augmentin and Doxycycline. His surgical wound cultures were positive for resistant Staphylococcus epidermidis. Dr. Pickering placed him on 3 days of Linezolid. Removed drain from right flank, which donor incision looks clean and dry. The skin graft has good vascularizatio and 100 % take. Continue to keep skin graft dry and continue the DONTAE wrap for compression. Discontinue the Augmentin. Will start Nystatin swish and swallow for oral thrush. Follow up in one week. Code Visit Office Visits / Consults: [id number] OV L3 Est
[2019-09-15 11:10] VITALS: BP 141/67; PULSE 63; RESP 18; TEMP 36.5; BMI 40.1
--- NOTE | 2019-09-15 18:37 | PN.PCM_ITS ---
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 History of Wound: Surgery 09/02/19 - Excisional debridement nonhealing diabetic MRSA ulcer right proximal lateral leg with STSG reconstruction from the right flank (36 cm2) and placement of AmnioFill Placental Connective Tissue Powder (250 mg) and placement of BELLA NPWT device. Wound care - Antibiotic ointment followed by dry gauze and compression alexia wrap. Operative culture - MRSE. He was discharged on Augmentin and Doxycycline and will continue Doxycycline. He was also on 3 days of Zyvox. Prealbumin from 09/03/19 was 24.1. Encouraged nutritional supplementation wtih protein to help the healing process. HgbA1c from 01/29/19 was 6.8. Drain was removed last week. The BELLA NPWT device was removed last week. Today he denies fever. His appetite is good. Progress of Wound: Recent skin grafting 09/02/19. - Physical Exam Vital Signs Temp Pulse Resp BP 97.7 F L 63 18 141/67 H 09/15/19 11:10 09/15/19 11:10 09/15/19 11:10 09/15/19 11:10 Wound Measurements and Assessment WC - Nurse 1 - General Ulcer Measurement Start: 09/08/19 11:30 Freq: Status: Active Protocol: Activity Type Activity Date Activity User E-Sign Co-Sign Detail Recorded Client Recorded Date Recorded By Document 09/15/19 11:10 [facility] [id number] 09/15/19 11:21 [facility] 09/15/19 11:10 Wound Center Nurse 1 [Ulcer Assessment] #3 RLE Lateral -Combined with other wound No -Current Size (cm) - Length 10.3 -Current Size (cm) - Width 3 -Current Size (cm) - Depth 0.1 -Total Square Cm 30.9 -Photo Taken No -Epithelialization None Present -Tunneling No -Undermining/Tunneling No -Circular Undermining No -Exudate Amt Large -Exudate Type Serosanguineous -Wound Margin Distinct, Outline Attached -Granulation Amt Large (67-100%) -Granulation Quality Pale,Red -Slough/Fibrin Yes -Necrosis Amt Small (1-33%) -Necrotic Tissue Type Adherent Slough -Texture (Bria-wound Skin Appearance) Assessed, Excoriation, Scarring -Moisture (Bria-wound Skin Appearance Assessed,Dry/ ) Scaly -Color (Bria-wound Skin Appearance) Assessed, Erythema -Temperature (Bria-wound Skin No Abnormality Appearance) (Pt Warm) -Tenderness on Palpation (Bria-wound No Skin Appearance) -Ulcer Cleansing soap and water -Foul Odor after Cleansing No -Anesthetic Used 4% Lidocaine Solution [Edema Assessment] -Lower Limb Edema Present Yes -Right Calf (cm) 38.8 -Right Ankle (cm) 24.6 - Nurse 2 - General Ulcer CM Notes Start: 09/08/19 11:30 Freq: Status: Active Protocol: Activity Type Activity Date Activity User E-Sign Co-Sign Detail Recorded Client Recorded Date Recorded By Document 09/15/19 12:03 [id number] 09/15/19 12:04 09/15/19 12:03 Wound Center Nurse 2 [Procedure/Treatment] #3 RLE Lateral -Correct Patient No -Correct Side, Site, Position No -Correct Procedure No -Procedure Performed No -Post Debridement Size (cm) - Length 0.1 -Post Debridement Size (cm) - Width 0.1 -Post Debridement Size (cm) - Depth 0.1 -Total Square Cm 0.01 -Wound/Ulcer Outcome Not Healed -Ulcer Cleansing Rinsed/ Irrigated with Saline -Foul Odor after Cleansing No -Bioengineered Tissue No -Bleeding Controlled with Pressure -Offloading No -Treatment Response Procedure Tolerated Well [See Physician Procedure note for Specifics] Pain Scale: 0-10 Numeric [Pain] -Is Patient Pain Free? Yes Debridement Note Post-Debridement Measurements/Treatment - Nurse 2 - General Ulcer CM Notes Start: 09/08/19 11:30 Freq: Status: Active Protocol: Activity Type Activity Date Activity User E-Sign Co-Sign Detail Recorded Client Recorded Date Recorded By Document 09/08/19 12:19 [id number] 09/08/19 12:20 Document 09/15/19 12:03 [id number] 09/15/19 12:04 09/08/19 09/15/19 12:19 12:03 Wound Center Nurse 2 #3 RLE Lateral -Correct Patient No No -Correct Side, Site, Position No No -Correct Procedure No No -Procedure Performed No No -Post Debridement Size (cm) - Length 0.1 0.1 -Post Debridement Size (cm) - Width 0.1 0.1 -Post Debridement Size (cm) - Depth 0.1 0.1 -Total Square Cm 0.01 0.01 -Wound/Ulcer Outcome Not Healed -Ulcer Cleansing Rinsed/ Irrigated with Saline -Foul Odor after Cleansing No -Bioengineered Tissue No -Bleeding Controlled with Pressure -Offloading No No -Treatment Response Procedure Procedure Tolerated Well Tolerated Well Pain Scale: 0-10 Numeric Is Patient Pain Free? Yes Yes Wound debrided: #3 Right proximal lateral leg with recent skin grafting. Laterality: Right Wound Grade/Stage: 4. No debridement was completed today - he had recent wound closure with skin grafting. Skin graft shows 100% take with good adherence and good vascular ingrowth. Assessment/Plan Assessment: 1. 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 2. History of ORIF right tibial plateau fracture. 3. History of MRSA. 4. Diabetes mellitus. 5. Status right knee replacement, medial compartment. 6. History of fall. 7. s/p excisional debridement nonhealing diabetic MRSA ulcer right proximal lateral leg with STSG reconstruction from the right flank (36 cm2) and placement of AmnioFill Placental Connective Tissue Powder (250 mg) and placement of BELLA NPWT device. Plan: Skin graft is healing satisfactory. Shows 100% take and good adherence and good vascular ingrowth. Donor incision right flank is dry and intact and healing. Operative culture showed MRSE. He was placed on Augmentin and Doxycyline perioperatively and will continue Doxycycline. He had also been on 3 days of Zyvox. granulation tissue. Prealbumin from 09/03/19 showed 24.1. Encourage nutritional supplementation with protein to help the healing process. HgbA1c from 01/29/19 was 6.8. He has some oral thrush and will continue Nystatin swish and swallow for oral thrush. Continue alexia wrap for compression as he has some redness and maceration from his legs being dependent postoperatively. Follow up one week.
== END 2019-09-18 23:59 ==
LOC: WC 11:45
PROVIDERS: Family Provider Family Medicine Geriatric Medicine; PCP Family Medicine Geriatric Medicine; Visit Provider Surgery
DX: Z09 Encounter for follow-up examination after completed treatment for conditions other than malignant neoplasm (principal); E11.9 Type 2 diabetes mellitus without complications; Z86.14 Personal history of Methicillin resistant Staphylococcus aureus infection; Z91.81 History of falling
CPT/HCPCS: 99213; G0463

== ENCOUNTER 2019-10-06 11:15 | Outpatient (RCR) | payer MEDICARE, SELFPAY ==
[2019-09-19 00:48] VITALS: BP 141/67; PULSE 63; RESP 18; TEMP 36.5
[2019-09-22 12:00] VITALS: BP 150/70; PULSE 64; RESP 20; TEMP 36.6; BMI 40.1
--- NOTE | 2019-09-22 13:43 | PCM.WC.PN ---
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 History of Wound: Surgery 09/02/19 - Excisional debridement nonhealing diabetic MRSA ulcer right proximal lateral leg with STSG reconstruction from the right flank (36 cm2) and placement of AmnioFill Placental Connective Tissue Powder (250 mg) and placement of BELLA NPWT device. Wound care - Antibiotic ointment followed by dry gauze and compression alexia wrap. Operative culture - MRSE. He was discharged on Augmentin and Doxycycline and will continue Doxycycline. He was also on 3 days of Zyvox. Prealbumin from 09/03/19 was 24.1. Encouraged nutritional supplementation wtih protein to help the healing process. The drain and the BELLA NWPT dressing were removed a few weeks ago. HgbA1c from 01/29/19 was 6.8. Today he denies fever. His appetite is good. Progress of Wound: Recent skin grafting 09/02/19. Skin graft with 95% take. Good vascularization seen. - Physical Exam Vital Signs Temp Pulse Resp BP 97.8 F 64 20 H 150/70 H 09/22/19 12:00 09/22/19 12:00 09/22/19 12:00 09/22/19 12:00 General: Alert, Cooperative HEENT: Atraumatic Oral: Moist Mucosa Lungs: Normal air movement Cardiovascular: Regular rate Extremities: Capillary Refill Less than 3 Seconds, Edema, Peripheral Pulses Normal Skin: Ulcer/ Wound - right leg skin graft intact Wound Measurements and Assessment WC - Nurse 1 - General Ulcer Measurement Start: 09/22/19 11:59 Freq: Status: Active Protocol: Activity Type Activity Date Activity User E-Sign Co-Sign Detail Recorded Client Recorded Date Recorded By Document 09/22/19 12:00 DL [id number] 09/22/19 12:09 DL 09/22/19 12:00 Wound Center Nurse 1 [Ulcer Assessment] #3 RLE Lateral -Current Size (cm) - Length 2.8 -Current Size (cm) - Width 0.3 -Current Size (cm) - Depth 0.1 -Total Square Cm 0.84 -Photo Taken No -Exudate Amt Small -Exudate Type Serosanguineous -Wound Margin Indistinct, Non -Visible -Granulation Amt Medium (34-66%) -Granulation Quality Red -Necrosis Amt Medium (34-66%) -Necrotic Tissue Type Adherent Slough -Structure Exposed N/A -Texture (Bria-wound Skin Appearance) Scarring -Moisture (Bria-wound Skin Appearance No Abnormality ) -Color (Bria-wound Skin Appearance) Hemosiderin Staining -Temperature (Bria-wound Skin No Abnormality Appearance) (Pt Warm) -Tenderness on Palpation (Bria-wound No Skin Appearance) -Ulcer Cleansing Rinsed/ Irrigated with Saline -Foul Odor after Cleansing No -Anesthetic Used 4% Lidocaine Solution [Edema Assessment] -Right Calf (cm) 39 -Right Ankle (cm) 24 WC - Nurse 2 - General Ulcer CM Notes Start: 09/22/19 11:59 Freq: Status: Active Protocol: Activity Type Activity Date Activity User E-Sign Co-Sign Detail Recorded Client Recorded Date Recorded By Document 09/22/19 13:06 ETHAN [id number] 09/22/19 13:13 ETHAN 09/22/19 13:06 Wound Center Nurse 2 [Procedure/Treatment] #3 RLE Lateral -Time 13:08 -Correct Patient Yes -Correct Side, Site, Position Yes -Correct Procedure Yes -Procedure Performed Yes -Type of Procedure Debridement -Clinical Debridement Selective -Post Debridement Size (cm) - Length 0.1 -Post Debridement Size (cm) - Width 0.1 -Post Debridement Size (cm) - Depth 0.1 -Total Square Cm 0.01 -Wound/Ulcer Outcome Not Healed -Ulcer Cleansing Rinsed/ Irrigated with Saline -Foul Odor after Cleansing No -Bioengineered Tissue No -Bleeding Controlled with Pressure -Offloading No -Treatment Response Procedure Tolerated Well [See Physician Procedure note for Specifics] Pain Scale: 0-10 Numeric [Pain] -Is Patient Pain Free? Yes Musculoskeletal: No Muscle Wasting Neurological: Neuro grossly intact Psych/Mental Status: Normal Affect, Appropriate Debridement Note Post-Debridement Measurements/Treatment WC - Nurse 2 - General Ulcer CM Notes Start: 09/22/19 11:59 Freq: Status: Active Protocol: Activity Type Activity Date Activity User E-Sign Co-Sign Detail Recorded Client Recorded Date Recorded By Document 09/22/19 13:06 ETHAN [id number] 09/22/19 13:13 ETHAN 09/22/19 13:06 Wound Center Nurse 2 #3 RLE Lateral -Time 13:08 -Correct Patient Yes -Correct Side, Site, Position Yes -Correct Procedure Yes -Procedure Performed Yes -Type of Procedure Debridement -Clinical Debridement Selective -Post Debridement Size (cm) - Length 0.1 -Post Debridement Size (cm) - Width 0.1 -Post Debridement Size (cm) - Depth 0.1 -Total Square Cm 0.01 -Wound/Ulcer Outcome Not Healed -Ulcer Cleansing Rinsed/ Irrigated with Saline -Foul Odor after Cleansing No -Bioengineered Tissue No -Bleeding Controlled with Pressure -Offloading No -Treatment Response Procedure Tolerated Well Pain Scale: 0-10 Numeric Is Patient Pain Free? Yes Wound debrided: leg skin graft Laterality: Right Type of Debridement: Selective debridement - outer edge of skin graft Anesthesia Used: 4% Lidocaine Solution Depth: Down to and including healthy tissue Percentage of wound debrided: 100 Instrument Used: 3mm curette Tissue Removed: slough Severity: Limited To Skin Breakdown Amount of bleeding with debridement: None Bleeding Controlled with: Pressure Patient tolerated procedure well Assessment/Plan Assessment: 1. 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 2. History of ORIF right tibial plateau fracture. 3. History of MRSA. 4. Diabetes mellitus. 5. Status right knee replacement, medial compartment. 6. History of fall. 7. s/p excisional debridement nonhealing diabetic MRSA ulcer right proximal lateral leg with STSG reconstruction from the right flank (36 cm2) and placement of AmnioFill Placental Connective Tissue Powder (250 mg) and placement of BELLA NPWT device. Plan: Skin graft is healing satisfactory. Shows 95% take and good adherence and good vascular ingrowth. The one outer edge is showing some mild compromise. Will monitor closely. Donor incision right flank is dry and intact and healing. Operative culture showed MRSE. He was placed on Augmentin and Doxycyline perioperatively and will continue Doxycycline. He had also been on 3 days of Zyvox. granulation tissue. Prealbumin from 09/03/19 showed 24.1. Encourage nutritional supplementation with protein to help the healing process. HgbA1c from 01/29/19 was 6.8. He has some oral thrush and will continue Nystatin swish and swallow for oral thrush. Continue alexia wrap for compression as he has some redness and maceration from his legs being dependent postoperatively. Follow up one week. Code Visit [id number]
[2019-09-29 11:16] VITALS: BP 151/75; PULSE 66; RESP 22; TEMP 36.3; BMI 40.1
--- NOTE | 2019-09-29 15:03 | PCM.WC.PN ---
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 History of Wound: Surgery 09/02/19 - Excisional debridement nonhealing diabetic MRSA ulcer right proximal lateral leg with STSG reconstruction from the right flank (36 cm2) and placement of AmnioFill Placental Connective Tissue Powder (250 mg) and placement of BELLA NPWT device. Wound care - Collagen hydrogel to small opened areas. Will start Lac-hytrin lotion 12% to bilateral lower legs and feet to help with the dry, flaking skin (not to be placed over the skin graft). DONTAE wraps for compression. Operative culture - MRSE. He was discharged on Augmentin and Doxycycline and will continue Doxycycline. He was also on 3 days of Zyvox. Prealbumin from 09/03/19 was 24.1. Encouraged nutritional supplementation wtih protein to help the healing process. The drain and the BELLA NWPT dressing were removed a few weeks ago. HgbA1c from 01/29/19 was 6.8. Today he denies fever. His appetite is good. Progress of Wound: Recent skin grafting 09/02/19. Skin graft healed except for one small area. - Physical Exam Vital Signs Temp Pulse Resp BP 97.4 F L 66 22 H 151/75 H 09/29/19 11:16 09/29/19 11:16 09/29/19 11:16 09/29/19 11:16 General: Alert, Cooperative HEENT: Atraumatic Oral: Moist Mucosa Lungs: Normal air movement Cardiovascular: Regular rate Abdomen: Soft Extremities: Capillary Refill Less than 3 Seconds, Diminished Peripheral Pulses, Edema Skin: Ulcer/ Wound - Right leg skin graft Wound Measurements and Assessment WC - Nurse 1 - General Ulcer Measurement Start: 09/22/19 11:59 Freq: Status: Active Protocol: Activity Type Activity Date Activity User E-Sign Co-Sign Detail Recorded Client Recorded Date Recorded By Document 09/29/19 11:16 DL [id number] 09/29/19 11:25 DL 09/29/19 11:16 Wound Center Nurse 1 [Ulcer Assessment] #3 RLE Lateral -Current Size (cm) - Length 0.1 -Current Size (cm) - Width 0.1 -Current Size (cm) - Depth 0.1 -Total Square Cm 0.01 -Photo Taken No -Exudate Amt None Present -Wound Margin Flat & Intact -Granulation Amt Large (67-100%) -Granulation Quality [place] -Necrosis Amt None Present (0 %) -Structure Exposed N/A -Texture (Bria-wound Skin Appearance) Scarring -Moisture (Bria-wound Skin Appearance Dry/Scaly ) -Color (Bria-wound Skin Appearance) Hemosiderin Staining -Temperature (Bria-wound Skin No Abnormality Appearance) (Pt Warm) -Tenderness on Palpation (Bria-wound No Skin Appearance) -Ulcer Cleansing Rinsed/ Irrigated with Saline -Foul Odor after Cleansing No [Edema Assessment] -Right Calf (cm) 38 -Right Ankle (cm) 25.8 WC - Nurse 2 - General Ulcer CM Notes Start: 09/22/19 11:59 Freq: Status: Active Protocol: Activity Type Activity Date Activity User E-Sign Co-Sign Detail Recorded Client Recorded Date Recorded By Document 09/29/19 12:08 [id number] 09/29/19 12:09 09/29/19 12:08 Wound Center Nurse 2 [Procedure/Treatment] #3 RLE Lateral -Time 12:08 -Correct Patient Yes -Correct Side, Site, Position Yes -Correct Procedure Yes -Procedure Performed Yes -Type of Procedure Debridement -Clinical Debridement Subcutaneous -Post Debridement Size (cm) - Length 3.5 -Post Debridement Size (cm) - Width 0.5 -Post Debridement Size (cm) - Depth 0.1 -Total Square Cm 1.75 -Wound/Ulcer Outcome Not Healed -Ulcer Cleansing Rinsed/ Irrigated with Saline -Foul Odor after Cleansing No -Bioengineered Tissue No -Bleeding Controlled with Pressure -Offloading No -Treatment Response Procedure Tolerated Well [See Physician Procedure note for Specifics] Pain Scale: 0-10 Numeric [Pain] -Is Patient Pain Free? Yes Musculoskeletal: No Muscle Wasting Neurological: Neuro grossly intact Psych/Mental Status: Normal Affect, Appropriate Debridement Note Post-Debridement Measurements/Treatment WC - Nurse 2 - General Ulcer CM Notes Start: 09/22/19 11:59 Freq: Status: Active Protocol: Activity Type Activity Date Activity User E-Sign Co-Sign Detail Recorded Client Recorded Date Recorded By Document 09/22/19 13:06 ETHAN [id number] 09/22/19 13:13 Document 09/29/19 12:08 ETHAN [id number] 09/29/19 12:09 09/22/19 09/29/19 13:06 12:08 Wound Center Nurse 2 #3 RLE Lateral -Time 13:08 12:08 -Correct Patient Yes Yes -Correct Side, Site, Position Yes Yes -Correct Procedure Yes Yes -Procedure Performed Yes Yes -Type of Procedure Debridement Debridement -Clinical Debridement Selective Subcutaneous -Post Debridement Size (cm) - Length 0.1 3.5 -Post Debridement Size (cm) - Width 0.1 0.5 -Post Debridement Size (cm) - Depth 0.1 0.1 -Total Square Cm 0.01 1.75 -Wound/Ulcer Outcome Not Healed Not Healed -Ulcer Cleansing Rinsed/ Rinsed/ Irrigated with Irrigated with Saline Saline -Foul Odor after Cleansing No No -Bioengineered Tissue No No -Bleeding Controlled with Pressure Pressure -Offloading No No -Treatment Response Procedure Procedure Tolerated Well Tolerated Well Pain Scale: 0-10 Numeric Is Patient Pain Free? Yes Yes No debridement was completed today Assessment/Plan Assessment: 1. 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 2. History of ORIF right tibial plateau fracture. 3. History of MRSA. 4. Diabetes mellitus. 5. Status right knee replacement, medial compartment. 6. History of fall. 7. s/p excisional debridement nonhealing diabetic MRSA ulcer right proximal lateral leg with STSG reconstruction from the right flank (36 cm2) and placement of AmnioFill Placental Connective Tissue Powder (250 mg) and placement of BELLA NPWT device. Plan: Skin graft is healing satisfactory. Shows 95% take and good adherence and good vascular ingrowth. The one outer edge is showing some mild compromise. Will monitor closely. Will apply collagen hydrogel to the one area that is opened on the skin graft. Bilateral legs and feet are very dry and flakey. Will start Lac-hytrin lotion 12% daily bilaterally. Donor incision right flank is dry and intact and healing. Operative culture showed MRSE. He was placed on Augmentin and Doxycyline perioperatively and will continue Doxycycline. He had also been on 3 days of Zyvox. granulation tissue. Prealbumin from 09/03/19 showed 24.1. Encourage nutritional supplementation with protein to help the healing process. HgbA1c from 01/29/19 was 6.8. Continue dontae wrap for compression as he has some redness and maceration from his legs being dependent postoperatively. Follow up one week. Code Visit Office Visits / Consults: [id number] OV L3 Est
[2019-10-06 10:49] VITALS: RESP 16; TEMP 36.2; BMI 40.1
--- NOTE | 2019-10-06 23:18 | PCM.WC.PN ---
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 History of Wound: Surgery 09/02/19 - Excisional debridement nonhealing diabetic MRSA ulcer right proximal lateral leg with STSG reconstruction from the right flank (36 cm2) and placement of AmnioFill Placental Connective Tissue Powder (250 mg) and placement of BELLA NPWT device. Wound care - Collagen hydrogel followed by dry gauze and compression alexia wrap. Operative culture - MRSE. He was discharged on Augmentin and Doxycycline and will continue Doxycycline. He was also on 3 days of Zyvox. Prealbumin from 09/03/19 was 24.1. Encouraged nutritional supplementation wtih protein to help the healing process. HgbA1c from 01/29/19 was 6.8. Today he denies fever. His appetite is good. Progress of Wound: Healed skin graft. - Physical Exam Vital Signs Temp Pulse Resp BP 97.1 F L 66 16 151/75 H 10/06/19 10:49 09/29/19 11:16 10/06/19 10:49 09/29/19 11:16 General: Alert, Oriented x3 HEENT: EOMI Oral: Moist Mucosa Neck: Supple Abdomen: Soft, Non-Distended Skin: - - skin graft has healed right proximal lateral leg. Wound Measurements and Assessment WC - Nurse 1 - General Ulcer Measurement Start: 09/22/19 11:59 Freq: Status: Active Protocol: Activity Type Activity Date Activity User E-Sign Co-Sign Detail Recorded Client Recorded Date Recorded By Document 10/06/19 10:49 [facility] [id number] 10/06/19 10:56 [facility] 10/06/19 10:49 Wound Center Nurse 1 [Ulcer Assessment] #3 RLE Lateral -Combined with other wound No -Current Size (cm) - Length 0.1 -Current Size (cm) - Width 0.1 -Current Size (cm) - Depth 0.1 -Total Square Cm 0.01 -Epithelialization Large 67-100% -Tunneling No -Undermining/Tunneling No -Circular Undermining No -Exudate Amt None Present -Necrosis Amt Small (1-33%) -Necrotic Tissue Type Adherent Slough -Texture (Bria-wound Skin Appearance) Assessed, Excoriation, Scarring -Moisture (Bria-wound Skin Appearance Assessed,Dry/ ) Scaly -Color (Bria-wound Skin Appearance) Assessed, Erythema -Temperature (Bria-wound Skin No Abnormality Appearance) (Pt Warm) -Tenderness on Palpation (Bria-wound No Skin Appearance) -Ulcer Cleansing Rinsed/ Irrigated with Saline -Foul Odor after Cleansing No -Anesthetic Used 4% Lidocaine Solution [Edema Assessment] -Lower Limb Edema Present Yes -Right Calf (cm) 40 -Right Ankle (cm) 23.5 - Nurse 2 - General Ulcer CM Notes Start: 09/22/19 11:59 Freq: Status: Active Protocol: Activity Type Activity Date Activity User E-Sign Co-Sign Detail Recorded Client Recorded Date Recorded By Document 10/06/19 11:30 [id number] 10/06/19 11:34 10/06/19 11:30 Wound Center Nurse 2 [Procedure/Treatment] #3 RLE Lateral -Correct Patient No -Correct Side, Site, Position No -Correct Procedure No -Procedure Performed No -Post Debridement Size (cm) - Length 0 -Post Debridement Size (cm) - Width 0 -Post Debridement Size (cm) - Depth 0 -Total Square Cm 0 -Wound/Ulcer Outcome Healed- Epithelialized [See Physician Procedure note for Specifics] Pain Scale: 0-10 Numeric [Pain] -Is Patient Pain Free? Yes Neurological: Cranial nerves II-XII grossly intact Psych/Mental Status: Normal Affect, Appropriate Debridement Note Post-Debridement Measurements/Treatment - Nurse 2 - General Ulcer CM Notes Start: 09/22/19 11:59 Freq: Status: Active Protocol: Activity Type Activity Date Activity User E-Sign Co-Sign Detail Recorded Client Recorded Date Recorded By Document 09/22/19 13:06 [id number] 09/22/19 13:13 Document 09/29/19 12:08 [id number] 09/29/19 12:09 Document 10/06/19 11:30 [id number] 10/06/19 11:34 09/22/19 09/29/19 10/06/19 13:06 12:08 11:30 Wound Center Nurse 2 #3 RLE Lateral -Time 13:08 12:08 -Correct Patient Yes Yes No -Correct Side, Site, Position Yes Yes No -Correct Procedure Yes Yes No -Procedure Performed Yes Yes No -Type of Procedure Debridement Debridement -Clinical Debridement Selective Subcutaneous -Post Debridement Size (cm) - Length 0.1 3.5 0 -Post Debridement Size (cm) - Width 0.1 0.5 0 -Post Debridement Size (cm) - Depth 0.1 0.1 0 -Total Square Cm 0.01 1.75 0 -Wound/Ulcer Outcome Not Healed Not Healed Healed- Epithelialized -Ulcer Cleansing Rinsed/ Rinsed/ Irrigated with Irrigated with Saline Saline -Foul Odor after Cleansing No No -Bioengineered Tissue No No -Bleeding Controlled with Pressure Pressure -Offloading No No -Treatment Response Procedure Procedure Tolerated Well Tolerated Well Pain Scale: 0-10 Numeric Is Patient Pain Free? Yes Yes Yes Assessment/Plan Assessment: 1. Diabetic MRSA ulcer right proximal lateral leg, healed with skin grafting. 2. History of ORIF right tibial plateau fracture. 3. History of MRSA. 4. Diabetes mellitus. 5. Status right knee replacement, medial compartment. 6. History of fall. 7. s/p excisional debridement nonhealing diabetic MRSA ulcer right proximal lateral leg with STSG reconstruction from the right flank (36 cm2) and placement of AmnioFill Placental Connective Tissue Powder (250 mg) and placement of BELLA NPWT device. Plan: Skin graft is healed. Continue alexia wrap for compression. Needs skin lotion on the surrounding dry skin. Donor incision right flank is healed. Operative culture showed MRSE. He was placed on Augmentin and Doxycyline perioperatively and will continue Doxycycline. He had also been on 3 days of Zyvox. Prealbumin from 09/03/19 showed 24.1. Encourage nutritional supplementation with protein to help the healing process. HgbA1c from 01/29/19 was 6.8. Continue alexia wrap for compression as he has some redness and maceration from his legs being dependent postoperatively. Follow up on an as needed basis. Code Visit Wound Center Charges CPT - 55281 ICD-10 - V58.49, L97.916, A49.02, S82.101S, T84.498A, Z96.651, E11.9, W19.xxxS
== END 2019-10-18 23:59 ==
LOC: WC 11:15
PROVIDERS: Family Provider Family Medicine Geriatric Medicine; PCP Family Medicine Geriatric Medicine; Visit Provider Surgery
DX: E11.622 Type 2 diabetes mellitus with other skin ulcer (principal); Z86.14 Personal history of Methicillin resistant Staphylococcus aureus infection; L97.811 Non-pressure chronic ulcer of other part of right lower leg limited to breakdown of skin
CPT/HCPCS: 11042; 97597; 99213; G0463

== ENCOUNTER → 2019-11-27 14:47 | Outpatient (CLI) | payer MEDICARE, SELFPAY ==
[2019-11-27 16:37] LABS: Absolute Lymphocyte Count 2.64 X10^3/uL (0.83-4.51); Absolute Neutrophil Count 4.6 X10^3/uL (2.0-7.7); Basophil# 0.04 X10^3/uL; Basophil% 0.5 % (0-1); Eosinophil# 0.17 X10^3/uL; Hematocrit 45.8 % (40-54); Hemoglobin 14.6 g/dL (13.0-16.5); Lymphocyte # 2.64 X10^3/ul (4.0); Lymphocyte % 31.8 % (19-41); Mean Corp Hgb Conc 31.9 g/dL (32-36); Mean Corpuscular Hgb 27.5 pg (27.0-32.0); Mean Corpuscular Volume 86.3 fL (80-94); Mean Platelet Vol. 10.5 fl (6.2-12.0); Monocyte# 0.81 X10^3/uL; Monocyte% 9.8 % (0-10); NRBC Flagged by Analyzer 0 % (0-5); Neutrophil # 4.61 X10^3/uL (2.7-7.7); Neutrophil % 55.5 % (47-70); Platelet Count 368 K/mm3 (150-450); RBC Distribution Width CV 15.6 % (11.6-14.6); Red Blood Count 5.31 M/mm3 (4.6-6.2); White Blood Count 8.3 K/mm3 (4.4-11.0)
[2019-11-27 17:08] LABS: ALB/GLOB Ratio 0.8 RATIO (0.9-2.4); AST(SGOT) 22 U/L (15-37); Alanine Aminotransfer ALT/SGPT 22 U/L (16-61); Albumin, Serum 3.4 g/dL (3.2-5.0); Alkaline Phosphatase 160 U/L (45-117); Anion Gap 6 (5-15); BUN 22 mg/dL (7-18); BUN/Creat Ratio 22.5 RATIO (10-20); Calcium,Total 9.1 mg/dL (8.5-10.1); Chloride 102 mmol/L (98-107); Creatinine, Serum 0.98 mg/dL (0.70-1.30); EST Glomerular Filtration Rate 80 mL/min (>60); Est Glom Filt Rate - Afr Amer 96 mL/min (>60); Globulin 4.3 g/dL (2.2-4.2); Glucose 151 mg/dL (74-106); Potassium 3.5 mmol/L (3.5-5.1); Protein, Total 7.7 g/dL (6.4-8.2); Sodium Level 138 mmol/L (136-145); Thyroid Stim Hormone (TSH) 2.25 uIU/mL (0.358-3.74)
== END ==
PROVIDERS: Family Provider Family Medicine Geriatric Medicine; PCP Family Medicine Geriatric Medicine; Visit Provider Family Medicine Geriatric Medicine
DX: E11.9 Type 2 diabetes mellitus without complications (principal); E55.9 Vitamin D deficiency, unspecified; I10 Essential (primary) hypertension
CPT/HCPCS: 36415; 80053; 82306; 84443; 85025

== ENCOUNTER 2019-11-29 21:59 | Emergency (ER) | payer MEDICARE, SELFPAY ==
[2019-11-29 22:00] VITALS: BP 172/95; PULSE 66; PULSE 69; RESP 14; RESP 15; TEMP 37; O2SAT 94; O2SAT 95; BMI 41.5
[2019-11-29 22:03] VITALS: O2SAT 96
--- NOTE | 2019-11-29 22:52 | CT_ITS ---
HISTORY: PT STATED FALL, LACERATION TO HEAD, HEARING DEVICE IMPLANT EXAMINATION: CT Head or Brain W/O Contrast Injection TECHNIQUE: Multiple axial images were obtained of the brain without intravenous contrast. A radiation dose optimization technique was used for this scan. IV Contrast dosage and agent: None. COMPARISON: 08/16/2018 FINDINGS: No significant change. Left mastoidectomy with residual fluid opacification of the remaining left mastoid air cells. Left middle ear ossicles remain and a cochlear implant is in place with the implant electrode coursing through the left mastoid bowl. The external metallic marketing content coordinator/processor unfortunately results in considerable beam hardening artifact and this partly limits evaluation. Allowing for this, CT findings appear stable. Normal ventricles. Age-appropriate cerebral cortical atrophy. No intracranial mass, hemorrhage, or acute intracranial disease identified. Posterior fossa structures are unremarkable. No suspicious extra-axial fluid collection. No calvarial fracture identified. The right mastoid and right middle ear cavity appear clear. As visualized, the paranasal sinuses are clear. CT/Brain/Head without Contrast IMPRESSION: 1. Stable findings. No intracranial hemorrhage or acute intracranial disease is identified. 2. Left cochlear implant with unavoidable CT reconstruction artifact and this partly limits evaluation. 3. Left mastoidectomy. No acute disease identified. Individualized dose optimization techniques were used for this CT. at 0027 Reported and signed by: Donny Ascencio MD Electronically Signed: Donny Ascencio, at 0:26 EST Tel , Service support ,
[2019-11-29] MEDS: Diphth,Pertuss(Acell),Tet Vac 0.5 ML Vial IM (23:52)
[2019-11-30 00:25] VITALS: BP 151/73; PULSE 64; RESP 17; O2SAT 97
[2019-11-30] MEDS: Acetaminophen 500 MG Tablet 1000 MG PO (01:45)
[2019-11-30 02:21] VITALS: BP 165/67; PULSE 71; RESP 18; O2SAT 96
[2019-11-30 04:37] VITALS: BP 140/77
--- NOTE | 2019-11-30 04:51 | ED.DCSUM_ITS ---
- ER Visit Summary Date of Service: 11/30/19 Chief Complaint: Fall with left lateral scalp laceration History of Present Illness: The patient is a 74 M history of diabetes, hypertension, high cholesterol. Patient's had a prior cholecystectomy. He is a left cochlear implant. Tonight he fell once to catch himself on a chair and landed awkwardly striking his head on something they are unsure what causing a laceration above his left cochlear implant. He had no LOC. He denies any neck pain. He is on no blood thinners. Physical Examination: Older male no acute distress accompanied by his . Vital signs are stable afebrile. H EENT exam pupils round reactive light. No facial trauma. Right scalp and posterior scalp are nontender without hematomas or lacerations. 1 inch above his left cochlear implant there is about a 3 inch or 78 cm laceration involving the skin and subcu tissue. There is blood. But no heavy active bleeding and no pulsatile bleeding. I did finger probe the wound and there is no step-off. There is no bony deformity. C-spine nontender. Lungs are clear. Heart regular rhythm. Abdomen is soft. Nontender normal bowel sounds no peritoneal signs. Chest wall is nontender. Pelvic girdle is intact. He is moving all 4 extremities. There is no deformities. No lacerations. Back is nontender. Neurologically is awake and alert with no focal motor deficits. Test Results: CAT scan of the brain was done without contrast. Showed no acute intracranial bleed. No skull fracture and no abnormality to the cochlear implant. It was somewhat limited due to artifact due to the cochlear implant. Emergency Department Course and Treatment: Procedure note: Left scalp laceration ER repair. 7 8 cm. Locally anesthetized with lidocaine. Cleaned with Shur- Clens. Explored irrigated and washed. Probed and no bony step-off. Closed using 7 андрей. Patient tolerated procedure well. Proper hemostasis and wound closure was obtained. Repeat neurologic exam at 4:50 AM is doing well. No focal deficits. He is moving all 4 extremities and acting appropriately. Tetanus was updated with Adacel IM. Treatment Plan: Wound Care. Staple removal in 10 days. Return if severe headache, vomiting or not acting himself. Disposition: Discharge Impression: Acute fall Head injury Left lateral scalp laceration is 7 cm with ER repair with андрей Tetanus updated This note was generated with [employer] dictation software. It may contain incorrect words, spelling, and punctuation that were not noted in review of the chart p rior to signing ED Disposition - Plan for ED Patient: Disposition: Home or Assisted Living Instructions: HEAD INJURY, No Wake-Up (Adult), LACERATION, Scalp Referrals: Gil Wheeler Chi, MD [Primary Care Provider] - 10 Day for suture removal Additional Instructions: Return if intractable vomiting or not acting himself. Tylenol for pain. Keep the wound clean. Clean daily gently with soap and water or peroxide and water. Do not scrub hard against the андрей you can pull them out. Be careful brushing her hair or drying her hair. Staple removal in 10 days.
--- NOTE | 2019-11-30 04:55 | ED.DEP ---
ED Disposition - Plan for ED Patient: Disposition: Home or Assisted Living Instructions: LACERATION, Scalp, HEAD INJURY, No Wake-Up (Adult) Referrals: Gil Wheeler Chi, MD [Primary Care Provider] - 10 Day for suture removal Additional Instructions: Return if intractable vomiting or not acting himself. Tylenol for pain. Keep the wound clean. Clean daily gently with soap and water or peroxide and water. Do not scrub hard against the андрей you can pull them out. Be careful brushing her hair or drying her hair. Staple removal in 10 days.
[2019-11-30 05:09] VITALS: BP 142/79; PULSE 73; RESP 22; O2SAT 97
--- NOTE | 2019-11-30 05:10 | ED.RN ---
THIS NURSE REVIEWED D/C INSTRUCTIONS WITH PT AND . BOTH VERBALIZED UNDERSTANDING OF INSTRUCTIONS. PT DENIES FURTHER NEEDS OR QUESTIONS AT THIS TIME. PT ASSISTED TO VEHICLE WITH 2 STAFF MEMBERS AND W/C
== END 2019-11-30 05:11 | disposition home or self-care (01) ==
PROVIDERS: Emergency Provider Emergency Medicine; Family Provider Family Medicine Geriatric Medicine; PCP Family Medicine Geriatric Medicine
DX: S01.01XA Laceration without foreign body of scalp, initial encounter (principal); W01.0XXA Fall on same level from slipping, tripping and stumbling without subsequent striking against object, initial encounter; Y93.9 Activity, unspecified; I10 Essential (primary) hypertension; E78.00 Pure hypercholesterolemia, unspecified; E11.9 Type 2 diabetes mellitus without complications; Z79.4 Long term (current) use of insulin
CPT/HCPCS: 12002; 70450; 90471; 90715; 99284

== ENCOUNTER → 2020-02-26 13:59 | Outpatient (CLI) | payer MEDICARE, SELFPAY ==
[2020-02-26 15:16] LABS: Absolute Lymphocyte Count 3.16 X10^3/uL (0.83-4.51); Absolute Neutrophil Count 5.3 X10^3/uL (2.0-7.7); Basophil# 0.04 X10^3/uL; Basophil% 0.4 % (0-1); Eosinophil# 0.17 X10^3/uL; Eosinophils% 1.8 % (0-5); Hematocrit 45.6 % (40-54); Lymphocyte # 3.16 X10^3/ul (4.0); Lymphocyte % 33.4 % (19-41); Mean Corp Hgb Conc 32.9 g/dL (32-36); Mean Corpuscular Hgb 28.6 pg (27.0-32.0); Mean Corpuscular Volume 86.9 fL (80-94); Mean Platelet Vol. 10.5 fl (6.2-12.0); Monocyte# 0.77 X10^3/uL; Monocyte% 8.1 % (0-10); NRBC Flagged by Analyzer 0 % (0-5); Neutrophil # 5.28 X10^3/uL (2.7-7.7); Neutrophil % 55.9 % (47-70); Platelet Count 374 K/mm3 (150-450); RBC Distribution Width CV 13.9 % (11.6-14.6); RBC Distribution Width SD 43.9 fl (35.1-43.9); Red Blood Count 5.25 M/mm3 (4.6-6.2); White Blood Count 9.5 K/mm3 (4.4-11.0)
[2020-02-26 15:36] LABS: Vitamin D,25 Hydroxy 28.9 ng/mL
[2020-02-26 15:48] LABS: ALB/GLOB Ratio 0.9 RATIO (0.9-2.4); AST(SGOT) 22 U/L (15-37); Alanine Aminotransfer ALT/SGPT 16 U/L (16-61); Albumin, Serum 3.4 g/dL (3.2-5.0); Alkaline Phosphatase 127 U/L (45-117); Anion Gap 8 (5-15); BUN 18 mg/dL (7-18); BUN/Creat Ratio 19.9 RATIO (10-20); Chloride 101 mmol/L (98-107); EST Glomerular Filtration Rate 87 mL/min (>60); Est Glom Filt Rate - Afr Amer 106 mL/min (>60); Globulin 3.8 g/dL (2.2-4.2); Glucose 161 mg/dL (74-106); Potassium 3.5 mmol/L (3.5-5.1); Protein, Total 7.2 g/dL (6.4-8.2); Sodium Level 138 mmol/L (136-145); Uric Acid 7.4 mg/dL (3.5-7.2)
== END ==
PROVIDERS: PCP Family Medicine Geriatric Medicine; Visit Provider Family Medicine Geriatric Medicine
DX: E11.9 Type 2 diabetes mellitus without complications (principal); E55.9 Vitamin D deficiency, unspecified; I10 Essential (primary) hypertension; M10.9 Gout, unspecified
CPT/HCPCS: 36415; 80053; 82306; 84443; 84550; 85025

== ENCOUNTER → 2020-06-29 16:18 | Outpatient (CLI) | payer MEDICARE, SELFPAY ==
--- NOTE | 2020-06-29 16:30 | RAD_ITS ---
STUDY: X-RAY - CERVICAL SPINE REASON FOR EXAM: Male, 74 years old. NUMBNESS IN ARMS TECHNIQUE: 5 view(s) of the cervical spine were obtained. COMPARISON: None FINDINGS: Normal anterior atlantoaxial articulation. Normal odontoid process. Normal cervical lordosis. C7 is poorly visualized on the lateral and swimmer''s projections. C7 is grossly within normal limits in contour and alignment. There is narrowing of the C2-3 and 3-4 disc spaces. The soft tissue structures are unremarkable. RAD/Cerv Spine 2 or 3 Views IMPRESSION: Limited study. Degenerative changes as detailed above. If clinically indicated, CT or MRI of the cervical spine may be helpful for further evaluation. Electronically Signed: Bharathi Gallegos MD at 22:03 EDT , Service support ,
--- NOTE | 2020-06-29 16:40 | RAD_ITS ---
STUDY: X-RAY - LUMBAR SPINE REASON FOR EXAM: Male, 74 years old. NUMBNESS IN LEGS TECHNIQUE: 3 view(s) of the lumbar spine were obtained. COMPARISON: Prior study of 07/23/2013 FINDINGS: Normal lumbar lordosis. There is no substantial scoliosis. There is a normal alignment of the vertebrae. There is diffuse endplate spondylosis of the lumbar spine. There is multi-level degenerative disc disease with multi-level disc space narrowing. There are calcified plaques of the abdominal aorta and common iliac arteries. RAD/Lumbar Spine 2 or 3 Views IMPRESSION: Degenerative changes of the spine, as detailed above. Findings have slightly increased in severity from the previous study. There is mild anterior wedge deformity of T12, similar to the previous study. Electronically Signed: Bharathi Gallegos MD at 22:05 EDT , Service support ,
[2020-06-29 17:20] LABS: Absolute Neutrophil Count 5.1 X10^3/uL (2.0-7.7); Basophil# 0.04 X10^3/uL; Basophil% 0.5 % (0-1); Eosinophil# 0.22 X10^3/uL; Eosinophils% 2.6 % (0-5); Hematocrit 46.2 % (40-54); Lymphocyte % 26.5 % (19-41); Mean Corp Hgb Conc 32.5 g/dL (32-36); Mean Corpuscular Volume 89.4 fL (80-94); Mean Platelet Vol. 10.6 fl (6.2-12.0); Monocyte# 0.69 X10^3/uL; Monocyte% 8.3 % (0-10); NRBC Flagged by Analyzer 0 % (0-5); Neutrophil # 5.14 X10^3/uL (2.7-7.7); Neutrophil % 61.9 % (47-70); Platelet Count 343 K/mm3 (150-450); RBC Distribution Width CV 13.3 % (11.6-14.6); RBC Distribution Width SD 43.6 fl (35.1-43.9); Red Blood Count 5.17 M/mm3 (4.6-6.2); White Blood Count 8.3 K/mm3 (4.4-11.0)
[2020-06-29 17:41] LABS: ALB/GLOB Ratio 0.9 RATIO (0.9-2.4); AST(SGOT) 38 U/L (15-37); Alanine Aminotransfer ALT/SGPT 22 U/L (16-61); Albumin, Serum 3.4 g/dL (3.2-5.0); Alkaline Phosphatase 127 U/L (45-117); Anion Gap 6 (5-15); BUN 17 mg/dL (7-18); BUN/Creat Ratio 18.9 RATIO (10-20); Calcium,Total 8.9 mg/dL (8.5-10.1); Chloride 105 mmol/L (98-107); EST Glomerular Filtration Rate 88 mL/min (>60); Est Glom Filt Rate - Afr Amer 106 mL/min (>60); Globulin 3.9 g/dL (2.2-4.2); Glucose 159 mg/dL (74-106); Potassium 3.8 mmol/L (3.5-5.1); Protein, Total 7.3 g/dL (6.4-8.2); Sodium Level 140 mmol/L (136-145); Thyroid Stim Hormone (TSH) 2.47 uIU/mL (0.358-3.74)
== END ==
LOC: POLAB3 16:19 → RAD 16:29
PROVIDERS: PCP Family Medicine Geriatric Medicine; Referring Provider Family Medicine Geriatric Medicine; Visit Provider Family Medicine Geriatric Medicine
DX: R20.0 Anesthesia of skin (principal); R53.83 Other fatigue
CPT/HCPCS: 36415; 72040; 72100; 80053; 84443; 85025

== ENCOUNTER → 2020-08-02 11:02 | Outpatient (CLI) | payer MEDICARE, SELFPAY ==
--- NOTE | 2020-08-02 13:32 | NEURO_ITS ---
NCS and/or EMG Patient Report Ordering Doctor: Gil Wheeler Chi DATE OF SERVICE: 08/02/20 Indication: Patient reports bilateral upper extremity weakness, pain, numbness. He is unable to provide much further detail regarding the distribution, duration, or severity of his symptoms. History of diabetes. Evaluate for neuropathy. Findings: Please note, today's study was limited by several different factors. The patient was unable to transfer to the examination bed and remained in his wheelchair-limiting proper positioning. He is hearing impaired and had some difficulty communicating and following direction. Nerve conduction studies were performed in the right and left upper extremities. The right median motor study recording the abductor pollicis brevis showed a reduced amplitude, prolonged distal latency and slowed conduction velocity. The right ulnar motor study recording the abductor digiti minimi showed a normal amplitude, normal distal latency and slowed conduction velocity. No conduction block or focal slowing was present across the elbow. The right median sensory response recording digit two showed a reduced amplitude, prolonged latency and slowed conduction velocity. The right ulnar sensory response recording digit five was absent. The right radial sensory response recording over the extensor snuff box showed a borderline amplitude, normal latency and normal conduction velocity. The left median motor study recording the abductor pollicis brevis showed a reduced amplitude, prolonged distal latency and slowed conduction velocity. The left ulnar motor study recording the abductor digiti minimi showed a normal amplitude, normal distal latency and borderline conduction velocity. No condu ction block or focal slowing was present across the elbow. The left median sensory response recording digit two showed a reduced amplitude, prolonged latency and markedly slowed conduction velocity. The left ulnar sensory response recording digit five showed an absent response. The left radial sensory response recording over the extensor snuff box showed a borderline amplitude, normal latency and normal conduction velocity. Needle EMG of the right upper extremity muscles was performed. The cervical paraspinal muscles were not sampled due to the patient's history of diabetes mellitus and the common presence of fibrillation potentials in this patient population. No denervation was seen in any muscle. The deltoid, biceps and triceps revealed motor units which were large amplitude, long duration, mildly polyphasic with normal recruitment. The first dorsal interosseous muscle revealed normal motor unit morphology. The abductor pollicis brevis muscle demonstrated large amplitude, long duration, polyphasic motor units with moderately reduced recruitment. Limited needle EMG of the left upper extremity muscles was performed. No denervation was seen in any muscle. The abductor pollicis brevis muscle demonstrated large amplitude, long duration, polyphasic motor units with slightly reduced recruitment. All other motor unit morphology, activation and recruitment patterns were normal. Impression: This is a limited, but markedly abnormal study. 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 The pathophysiology is predominantly demyelinating, however, there is significant secondary, chronic axonal loss. There is no active denervation to suggest ongoing axonal injury to the thenar muscles. 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 The diffusely reduced sensory responses are of unclear significance, but may represent an underlying peripheral polyneuropathy. Finally, due to this combinations of findings, this study would be insensitive in detecting a concurrent brachial plexopathy. Clinical correlation is recommended. Master Roe D.O.
== END ==
PROVIDERS: PCP Family Medicine Geriatric Medicine; Referring Provider Family Medicine Geriatric Medicine; Visit Provider Family Medicine Geriatric Medicine
DX: M54.12 Radiculopathy, cervical region (principal)
CPT/HCPCS: 95885; 95913

== ENCOUNTER → 2020-09-02 13:16 | Outpatient (CLI) | payer MEDICARE, SELFPAY ==
[2020-09-02 16:17] LABS: Absolute Lymphocyte Count 2.37 X10^3/uL (0.83-4.51); Absolute Neutrophil Count 4.9 X10^3/uL (2.0-7.7); Basophil# 0.03 X10^3/uL; Basophil% 0.4 % (0-1); Eosinophil# 0.15 X10^3/uL; Eosinophils% 1.8 % (0-5); Lymphocyte # 2.37 X10^3/ul (4.0); Lymphocyte % 29.2 % (19-41); Mean Corpuscular Hgb 29.6 pg (27.0-32.0); Mean Corpuscular Volume 92.6 fL (80-94); Mean Platelet Vol. 10.7 fl (6.2-12.0); Monocyte# 0.62 X10^3/uL; Monocyte% 7.6 % (0-10); NRBC Flagged by Analyzer 0 % (0-5); Neutrophil # 4.94 X10^3/uL (2.7-7.7); Neutrophil % 60.8 % (47-70); Platelet Count 302 K/mm3 (150-450); RBC Distribution Width CV 13.5 % (11.6-14.6); RBC Distribution Width SD 45.7 fl (35.1-43.9); White Blood Count 8.1 K/mm3 (4.4-11.0)
[2020-09-02 16:36] LABS: Vitamin D,25 Hydroxy 25.1 ng/mL
[2020-09-02 16:55] LABS: ALB/GLOB Ratio 0.8 RATIO (0.9-2.4); AST(SGOT) 25 U/L (15-37); Alanine Aminotransfer ALT/SGPT 25 U/L (16-61); Albumin, Serum 3.4 g/dL (3.2-5.0); Alkaline Phosphatase 136 U/L (45-117); Anion Gap 8 (5-15); BUN 21 mg/dL (7-18); Calcium,Total 8.9 mg/dL (8.5-10.1); Chloride 102 mmol/L (98-107); Creatinine, Serum 1.05 mg/dL (0.70-1.30); EST Glomerular Filtration Rate 73 mL/min (>60); Est Glom Filt Rate - Afr Amer 89 mL/min (>60); Globulin 4.2 g/dL (2.2-4.2); Glucose 218 mg/dL (74-106); Potassium 3.7 mmol/L (3.5-5.1); Protein, Total 7.6 g/dL (6.4-8.2); Sodium Level 137 mmol/L (136-145); Thyroid Stim Hormone (TSH) 1.95 uIU/mL (0.358-3.74)
== END ==
PROVIDERS: PCP Family Medicine Geriatric Medicine; Visit Provider Family Medicine Geriatric Medicine
DX: E11.9 Type 2 diabetes mellitus without complications (principal); E55.9 Vitamin D deficiency, unspecified; I10 Essential (primary) hypertension
CPT/HCPCS: 36415; 80053; 82306; 84443; 85025

== ENCOUNTER → 2020-12-07 13:25 | Outpatient (CLI) | payer MEDICARE, SELFPAY ==
[2020-12-07 15:14] LABS: Absolute Lymphocyte Count 2.54 X10^3/uL (0.83-4.51); Absolute Neutrophil Count 5.2 X10^3/uL (2.0-7.7); Basophil# 0.04 X10^3/uL; Basophil% 0.5 % (0-1); Eosinophil# 0.22 X10^3/uL; Eosinophils% 2.5 % (0-5); Hematocrit 45.8 % (40-54); Hemoglobin 15.4 g/dL (13.0-16.5); Lymphocyte # 2.54 X10^3/ul (4.0); Mean Corp Hgb Conc 33.6 g/dL (32-36); Mean Corpuscular Hgb 29.8 pg (27.0-32.0); Mean Corpuscular Volume 88.8 fL (80-94); Mean Platelet Vol. 10.7 fl (6.2-12.0); Monocyte# 0.71 X10^3/uL; Monocyte% 8.1 % (0-10); NRBC Flagged by Analyzer 0 % (0-5); Neutrophil # 5.21 X10^3/uL (2.7-7.7); Neutrophil % 59.6 % (47-70); Platelet Count 355 K/mm3 (150-450); RBC Distribution Width CV 12.9 % (11.6-14.6); RBC Distribution Width SD 42.2 fl (35.1-43.9); Red Blood Count 5.16 M/mm3 (4.6-6.2); White Blood Count 8.8 K/mm3 (4.4-11.0)
[2020-12-07 15:20] LABS: Vitamin D,25 Hydroxy 20.9 ng/mL
[2020-12-07 15:24] LABS: ALB/GLOB Ratio 0.8 RATIO (0.9-2.4); AST(SGOT) 22 U/L (15-37); Alanine Aminotransfer ALT/SGPT 20 U/L (16-61); Albumin, Serum 3.4 g/dL (3.2-5.0); Alkaline Phosphatase 127 U/L (45-117); Anion Gap 6 (5-15); BUN 15 mg/dL (7-18); BUN/Creat Ratio 14.7 RATIO (10-20); Calcium,Total 8.8 mg/dL (8.5-10.1); Chloride 100 mmol/L (98-107); Creatinine, Serum 1.02 mg/dL (0.70-1.30); EST Glomerular Filtration Rate 76 mL/min (>60); Est Glom Filt Rate - Afr Amer 92 mL/min (>60); Glucose 204 mg/dL (74-106); Potassium 3.5 mmol/L (3.5-5.1); Protein, Total 7.4 g/dL (6.4-8.2); Sodium Level 137 mmol/L (136-145); Thyroid Stim Hormone (TSH) 2.89 uIU/mL (0.358-3.74)
== END ==
PROVIDERS: PCP Family Medicine Geriatric Medicine; Visit Provider Family Medicine Geriatric Medicine
DX: I10 Essential (primary) hypertension (principal); E11.9 Type 2 diabetes mellitus without complications; E55.9 Vitamin D deficiency, unspecified
CPT/HCPCS: 36415; 80053; 82306; 84443; 85025

== ENCOUNTER → 2021-03-03 13:39 | Outpatient (CLI) | payer MEDICARE, SELFPAY ==
[2021-03-03 15:47] LABS: Absolute Lymphocyte Count 3.28 X10^3/uL (0.83-4.51); Absolute Neutrophil Count 4.5 X10^3/uL (2.0-7.7); Basophil# 0.05 X10^3/uL; Basophil% 0.6 % (0-1); Eosinophils% 3.3 % (0-5); Hematocrit 49.7 % (40-54); Hemoglobin 15.5 g/dL (13.0-16.5); Lymphocyte # 3.28 X10^3/ul (0.83-4.51); Lymphocyte % 36.5 % (19-41); Mean Corp Hgb Conc 31.2 g/dL (32-36); Mean Corpuscular Hgb 28.3 pg (27.0-32.0); Mean Corpuscular Volume 90.7 fL (80-94); Mean Platelet Vol. 10.4 fl (6.2-12.0); Monocyte# 0.81 X10^3/uL; NRBC Flagged by Analyzer 0 % (0-5); Neutrophil # 4.51 X10^3/uL (2.7-7.7); Neutrophil % 50.3 % (47-70); Platelet Count 387 K/mm3 (150-450); RBC Distribution Width CV 13.2 % (11.6-14.6); RBC Distribution Width SD 43.8 fl (35.1-43.9); Red Blood Count 5.48 M/mm3 (4.6-6.2)
[2021-03-03 16:00] LABS: Vitamin D,25 Hydroxy 23.2 ng/mL
[2021-03-03 16:12] LABS: ALB/GLOB Ratio 0.8 RATIO (0.9-2.4); AST(SGOT) 20 U/L (15-37); Alanine Aminotransfer ALT/SGPT 17 U/L (16-61); Albumin, Serum 3.4 g/dL (3.2-5.0); Alkaline Phosphatase 111 U/L (45-117); Anion Gap 7 (5-15); BUN 20 mg/dL (7-18); BUN/Creat Ratio 20.6 RATIO (10-20); Calcium,Total 9.1 mg/dL (8.5-10.1); Chloride 104 mmol/L (98-107); Creatinine, Serum 0.97 mg/dL (0.70-1.30); EST Glomerular Filtration Rate 80 mL/min (>60); Est Glom Filt Rate - Afr Amer 97 mL/min (>60); Globulin 4.2 g/dL (2.2-4.2); Glucose 174 mg/dL (74-106); Potassium 3.4 mmol/L (3.5-5.1); Protein, Total 7.6 g/dL (6.4-8.2); Sodium Level 138 mmol/L (136-145); Thyroid Stim Hormone (TSH) 2.12 uIU/mL (0.358-3.74)
== END ==
PROVIDERS: PCP Family Medicine Geriatric Medicine; Visit Provider Family Medicine Geriatric Medicine
DX: E11.9 Type 2 diabetes mellitus without complications (principal); E55.9 Vitamin D deficiency, unspecified; I10 Essential (primary) hypertension
CPT/HCPCS: 36415; 80053; 82306; 84443; 85025

== ENCOUNTER → 2021-05-24 13:34 | Outpatient (CLI) | payer MEDICARE, SELFPAY ==
[2021-05-24 16:19] LABS: Absolute Lymphocyte Count 3.43 X10^3/uL (0.83-4.51); Absolute Neutrophil Count 5.4 X10^3/uL (2.0-7.7); Basophil# 0.05 X10^3/uL; Basophil% 0.5 % (0-1); Eosinophil# 0.29 X10^3/uL; Eosinophils% 2.9 % (0-5); Hematocrit 45.7 % (40-54); Hemoglobin 15.1 g/dL (13.0-16.5); Lymphocyte # 3.43 X10^3/ul (0.83-4.51); Lymphocyte % 34.2 % (19-41); Mean Corpuscular Hgb 28.9 pg (27.0-32.0); Mean Corpuscular Volume 87.4 fL (80-94); Mean Platelet Vol. 10.7 fl (6.2-12.0); Monocyte# 0.88 X10^3/uL; Monocyte% 8.8 % (0-10); NRBC Flagged by Analyzer 0 % (0-5); Neutrophil # 5.35 X10^3/uL (2.7-7.7); Neutrophil % 53.4 % (47-70); Platelet Count 372 K/mm3 (150-450); RBC Distribution Width CV 13.7 % (11.6-14.6); RBC Distribution Width SD 43.6 fl (35.1-43.9); Red Blood Count 5.23 M/mm3 (4.6-6.2)
[2021-05-24 16:35] LABS: Vitamin D,25 Hydroxy 27.9 ng/mL
[2021-05-24 16:53] LABS: ALB/GLOB Ratio 0.8 RATIO (0.9-2.4); AST(SGOT) 27 U/L (15-37); Alanine Aminotransfer ALT/SGPT 22 U/L (16-61); Albumin, Serum 3.2 g/dL (3.2-5.0); Alkaline Phosphatase 110 U/L (45-117); Anion Gap 11 (5-15); BUN 15 mg/dL (7-18); BUN/Creat Ratio 15.8 RATIO (10-20); Calcium,Total 8.8 mg/dL (8.5-10.1); Chloride 104 mmol/L (98-107); Creatinine, Serum 0.95 mg/dL (0.70-1.30); EST Glomerular Filtration Rate 82 mL/min (>60); Est Glom Filt Rate - Afr Amer 100 mL/min (>60); Globulin 3.9 g/dL (2.2-4.2); Glucose 95 mg/dL (74-106); Potassium 3.5 mmol/L (3.5-5.1); Protein, Total 7.1 g/dL (6.4-8.2); Sodium Level 141 mmol/L (136-145); Thyroid Stim Hormone (TSH) 3.65 uIU/mL (0.358-3.74); Uric Acid 7.7 mg/dL (3.5-7.2)
== END ==
PROVIDERS: PCP Family Medicine Geriatric Medicine; Visit Provider Family Medicine Geriatric Medicine
DX: E11.9 Type 2 diabetes mellitus without complications (principal); E55.9 Vitamin D deficiency, unspecified; I10 Essential (primary) hypertension; M10.9 Gout, unspecified
CPT/HCPCS: 36415; 80053; 82306; 84443; 84550; 85025

== ENCOUNTER → 2021-09-05 13:37 | Outpatient (CLI) | payer MEDICARE, SELFPAY ==
[2021-09-05 17:49] LABS: Absolute Lymphocyte Count 3.25 X10^3/uL (0.83-4.51); Absolute Neutrophil Count 6.2 X10^3/uL (2.0-7.7); Basophil# 0.05 X10^3/uL; Basophil% 0.5 % (0-1); Eosinophil# 0.29 X10^3/uL; Eosinophils% 2.7 % (0-5); Hematocrit 47.2 % (40-54); Hemoglobin 15.2 g/dL (13.0-16.5); Lymphocyte # 3.25 X10^3/ul (0.83-4.51); Lymphocyte % 30.7 % (19-41); Mean Corp Hgb Conc 32.2 g/dL (32-36); Mean Corpuscular Volume 90.1 fL (80-94); Mean Platelet Vol. 10.4 fl (6.2-12.0); Monocyte# 0.78 X10^3/uL; Monocyte% 7.4 % (0-10); NRBC Flagged by Analyzer 0 % (0-5); Neutrophil # 6.17 X10^3/uL (2.7-7.7); Neutrophil % 58.4 % (47-70); Platelet Count 420 K/mm3 (150-450); RBC Distribution Width CV 13.7 % (11.6-14.6); RBC Distribution Width SD 45.2 fl (35.1-43.9); Red Blood Count 5.24 M/mm3 (4.6-6.2); White Blood Count 10.6 K/mm3 (4.4-11.0)
[2021-09-05 18:04] LABS: Vitamin D,25 Hydroxy 29.3 ng/mL
[2021-09-05 18:09] LABS: ALB/GLOB Ratio 0.8 RATIO (0.9-2.4); AST(SGOT) 32 U/L (15-37); Alanine Aminotransfer ALT/SGPT 25 U/L (16-61); Albumin, Serum 3.3 g/dL (3.2-5.0); Alkaline Phosphatase 109 U/L (45-117); Anion Gap 7 (5-15); BUN 18 mg/dL (7-18); BUN/Creat Ratio 18.7 RATIO (10-20); Calcium,Total 9.6 mg/dL (8.5-10.1); Chloride 100 mmol/L (98-107); Creatinine, Serum 0.96 mg/dL (0.70-1.30); EST Glomerular Filtration Rate 81 mL/min (>60); Est Glom Filt Rate - Afr Amer 98 mL/min (>60); Globulin 4.4 g/dL (2.2-4.2); Glucose 149 mg/dL (74-106); Potassium 3.5 mmol/L (3.5-5.1); Protein, Total 7.7 g/dL (6.4-8.2); Sodium Level 137 mmol/L (136-145); Thyroid Stim Hormone (TSH) 2.09 uIU/mL (0.358-3.74); Uric Acid 7.9 mg/dL (3.5-7.2)
== END ==
PROVIDERS: PCP Family Medicine Geriatric Medicine; Visit Provider Family Medicine Geriatric Medicine
DX: I10 Essential (primary) hypertension (principal); E11.9 Type 2 diabetes mellitus without complications; E55.9 Vitamin D deficiency, unspecified; M10.9 Gout, unspecified
CPT/HCPCS: 36415; 80053; 82306; 84443; 84550; 85025

== ENCOUNTER → 2022-03-17 | Outpatient (CLI) | payer MEDICARE, SELFPAY ==
[2022-03-17 12:47] LABS: Absolute Lymphocyte Count 3.49 X10^3/uL (0.83-4.51); Absolute Neutrophil Count 6.8 X10^3/uL (2.0-7.7); Basophil# 0.06 X10^3/uL; Basophil% 0.5 % (0-1); Eosinophil# 0.29 X10^3/uL; Eosinophils% 2.5 % (0-5); Hematocrit 45.3 % (40-54); Hemoglobin 14.9 g/dL (13.0-16.5); Lymphocyte # 3.49 X10^3/ul (0.83-4.51); Lymphocyte % 29.9 % (19-41); Mean Corp Hgb Conc 32.9 g/dL (32-36); Mean Corpuscular Hgb 28.9 pg (27.0-32.0); Mean Platelet Vol. 10.3 fl (6.2-12.0); Monocyte# 1.01 X10^3/uL; Monocyte% 8.7 % (0-10); NRBC Flagged by Analyzer 0 % (0-5); Neutrophil # 6.77 X10^3/uL (2.7-7.7); Neutrophil % 58.1 % (47-70); Platelet Count 398 K/mm3 (150-450); RBC Distribution Width CV 13.8 % (11.6-14.6); RBC Distribution Width SD 44.6 fl (35.1-43.9); Red Blood Count 5.15 M/mm3 (4.6-6.2); White Blood Count 11.7 K/mm3 (4.4-11.0)
[2022-03-17 13:06] LABS: Vitamin D,25 Hydroxy 27.8 ng/mL
[2022-03-17 13:11] LABS: ALB/GLOB Ratio 0.8 RATIO (0.9-2.4); AST(SGOT) 31 U/L (15-37); Alanine Aminotransfer ALT/SGPT 23 U/L (16-61); Albumin, Serum 3.4 g/dL (3.2-5.0); Alkaline Phosphatase 105 U/L (45-117); Anion Gap 5 (5-15); BUN 20 mg/dL (7-18); BUN/Creat Ratio 19.2 RATIO (10-20); Calcium,Total 9.1 mg/dL (8.5-10.1); Chloride 104 mmol/L (98-107); Creatinine, Serum 1.04 mg/dL (0.70-1.30); EST Glomerular Filtration Rate 74 mL/min (>60); Est Glom Filt Rate - Afr Amer 89 mL/min (>60); Globulin 4.5 g/dL (2.2-4.2); Glucose 111 mg/dL (74-106); Potassium 3.7 mmol/L (3.5-5.1); Protein, Total 7.9 g/dL (6.4-8.2); Sodium Level 140 mmol/L (136-145); Thyroid Stim Hormone (TSH) 3.09 uIU/mL (0.358-3.74)
== END | disposition home or self-care (01) ==
LOC: POLAB3 11:49
PROVIDERS: PCP Family Medicine Geriatric Medicine; Visit Provider Family Medicine Geriatric Medicine
DX: E11.9 Type 2 diabetes mellitus without complications (principal); E55.9 Vitamin D deficiency, unspecified; I10 Essential (primary) hypertension
CPT/HCPCS: 36415; 80053; 82306; 84443; 85025

== ENCOUNTER 2022-08-04 11:53 | Outpatient (CLI) | payer MEDICARE, SELFPAY ==
--- NOTE | 2022-08-04 11:58 | RAD_ITS ---
STUDY: X-RAY - ABDOMEN/PELVIS REASON FOR EXAM: Male, 77 years old. DIARRHEA TECHNIQUE: Single AP view of the abdomen / pelvis. COMPARISON: None. FINDINGS: Normal visualized lung bases. There is a moderate amount of colonic fecal material. There is evidence of prior right inguinal hernia repair with a mesh. The visualized liver, spleen and kidneys are grossly normal in size and morphology. There are calcified phleboliths in the pelvis. There are diffuse degenerative changes of the visualized lumbar spine. The patient is status post right total hip replacement. RAD/Abdomen Single View IMPRESSION: Moderate amount of fecal material is seen in the colon. Electronically Signed: Sherman Trivedi MD at 13:21 EDT ,
== END 2022-08-04 23:59 | disposition home or self-care (01) ==
LOC: RAD 11:55
PROVIDERS: PCP Family Medicine Geriatric Medicine; Referring Provider Family Medicine Geriatric Medicine; Visit Provider Family Medicine Geriatric Medicine
DX: R19.7 Diarrhea, unspecified (principal); L08.9 Local infection of the skin and subcutaneous tissue, unspecified
CPT/HCPCS: 74018; 87070; 87077; 87186; 87205; 87640

== ENCOUNTER → 2022-08-04 | Outpatient (CLI) | payer MEDICARE, SELFPAY ==
[2022-08-04 13:41] LABS: M R Staph aureus DNA By PCR Negative (Negative); Probe Check PASS; Specimen Processing Control PASS; Staph aureus DNA By PCR POSITIVE (Negative)
== END | disposition home or self-care (01) ==
LOC: POLAB3 11:51
PROVIDERS: PCP Family Medicine Geriatric Medicine; Visit Provider Family Medicine Geriatric Medicine
DX: L08.9 Local infection of the skin and subcutaneous tissue, unspecified (principal)
CPT/HCPCS: 87070; 87077; 87186; 87205; 87640

== ENCOUNTER → 2022-12-25 | Outpatient (CLI) | payer MEDICARE, SELFPAY ==
[2022-12-25 13:25] LABS: Absolute Neutrophil Count 5.8 X10^3/uL (2.0-7.7); Basophil# 0.06 X10^3/uL; Basophil% 0.6 % (0-1); Eosinophil# 0.29 X10^3/uL; Eosinophils% 2.8 % (0-5); Hematocrit 45.8 % (40-54); Hemoglobin 14.8 g/dL (13.0-16.5); Lymphocyte % 31.9 % (19-41); Mean Corp Hgb Conc 32.3 g/dL (32-36); Mean Corpuscular Hgb 27.9 pg (27.0-32.0); Mean Corpuscular Volume 86.3 fL (80-94); Mean Platelet Vol. 11.1 fl (6.2-12.0); Monocyte% 8.7 % (0-10); NRBC Flagged by Analyzer 0 % (0-5); Neutrophil # 5.75 X10^3/uL (2.7-7.7); Neutrophil % 55.6 % (47-70); Platelet Count 342 K/mm3 (150-450); RBC Distribution Width CV 14.3 % (11.6-14.6); RBC Distribution Width SD 44.8 fl (35.1-43.9); Red Blood Count 5.31 M/mm3 (4.6-6.2); White Blood Count 10.3 K/mm3 (4.4-11.0)
[2022-12-25 14:19] LABS: Vitamin D,25 Hydroxy 36.1 ng/mL
[2022-12-25 14:22] LABS: ALB/GLOB Ratio 0.8 RATIO (0.9-2.4); AST(SGOT) 23 U/L (15-37); Alanine Aminotransfer ALT/SGPT 14 U/L (16-61); Albumin, Serum 3.4 g/dL (3.2-5.0); Alkaline Phosphatase 119 U/L (45-117); Anion Gap 11 (5-15); BUN 17 mg/dL (7-18); BUN/Creat Ratio 14.4 RATIO (10-20); Chloride 104 mmol/L (98-107); Creatinine, Serum 1.18 mg/dL (0.70-1.30); EST Glomerular Filtration Rate 64 mL/min (>60); Est Glom Filt Rate - Afr Amer 77 mL/min (>60); Globulin 4.2 g/dL (2.2-4.2); Glucose 124 mg/dL (74-106); Potassium 3.2 mmol/L (3.5-5.1); Protein, Total 7.6 g/dL (6.4-8.2); Sodium Level 141 mmol/L (136-145); Thyroid Stim Hormone (TSH) 2.01 uIU/mL (0.358-3.74)
== END | disposition home or self-care (01) ==
PROVIDERS: PCP Family Medicine Geriatric Medicine; Visit Provider Family Medicine Geriatric Medicine
DX: E55.9 Vitamin D deficiency, unspecified (principal); E11.65 Type 2 diabetes mellitus with hyperglycemia; I10 Essential (primary) hypertension
CPT/HCPCS: 36415; 80053; 82306; 84443; 85025

== ENCOUNTER → 2023-01-22 | Outpatient (CLI) | payer MEDICARE, SELFPAY ==
[2023-01-22 13:11] LABS: Absolute Lymphocyte Count 3.24 X10^3/uL (0.83-4.51); Absolute Neutrophil Count 5.8 X10^3/uL (2.0-7.7); Basophil# 0.05 X10^3/uL; Basophil% 0.5 % (0-1); Eosinophil# 0.29 X10^3/uL; Eosinophils% 2.8 % (0-5); Hemoglobin 15.1 g/dL (13.0-16.5); Lymphocyte # 3.24 X10^3/ul (0.83-4.51); Lymphocyte % 31.2 % (19-41); Mean Corp Hgb Conc 32.1 g/dL (32-36); Mean Corpuscular Hgb 27.8 pg (27.0-32.0); Mean Corpuscular Volume 86.4 fL (80-94); Mean Platelet Vol. 10.3 fl (6.2-12.0); Monocyte# 1.01 X10^3/uL; Monocyte% 9.7 % (0-10); NRBC Flagged by Analyzer 0 % (0-5); Neutrophil # 5.77 X10^3/uL (2.7-7.7); Neutrophil % 55.5 % (47-70); Platelet Count 434 K/mm3 (150-450); RBC Distribution Width CV 14.6 % (11.6-14.6); RBC Distribution Width SD 45.7 fl (35.1-43.9); Red Blood Count 5.44 M/mm3 (4.6-6.2); White Blood Count 10.4 K/mm3 (4.4-11.0)
[2023-01-22 13:37] LABS: Vitamin D,25 Hydroxy 22.7 ng/mL
[2023-01-22 13:49] LABS: ALB/GLOB Ratio 0.8 RATIO (0.9-2.4); AST(SGOT) 44 U/L (15-37); Alanine Aminotransfer ALT/SGPT 25 U/L (16-61); Albumin, Serum 3.4 g/dL (3.2-5.0); Alkaline Phosphatase 131 U/L (45-117); Anion Gap 8 (5-15); BUN 14 mg/dL (7-18); BUN/Creat Ratio 12.8 RATIO (10-20); Calcium,Total 8.9 mg/dL (8.5-10.1); Chloride 101 mmol/L (98-107); Creatinine, Serum 1.09 mg/dL (0.70-1.30); EST Glomerular Filtration Rate 70 mL/min (>60); Est Glom Filt Rate - Afr Amer 84 mL/min (>60); Globulin 4.5 g/dL (2.2-4.2); Glucose 105 mg/dL (74-106); Potassium 3.2 mmol/L (3.5-5.1); Protein, Total 7.9 g/dL (6.4-8.2); Sodium Level 138 mmol/L (136-145); Thyroid Stim Hormone (TSH) 6.24 uIU/mL (0.358-3.74)
== END | disposition home or self-care (01) ==
LOC: POLAB3 11:39
PROVIDERS: PCP Family Medicine Geriatric Medicine; Visit Provider Family Medicine Geriatric Medicine
DX: E87.6 Hypokalemia (principal); E11.9 Type 2 diabetes mellitus without complications; E55.9 Vitamin D deficiency, unspecified; I10 Essential (primary) hypertension
CPT/HCPCS: 36415; 80053; 82306; 84443; 85025

== ENCOUNTER 2023-02-24 23:35 | Emergency (ER) | payer MEDICARE, SELFPAY ==
[2023-02-24 23:36] VITALS: PULSE 61; RESP 12; TEMP 36.4; O2SAT 93; BMI 43.2
[2023-02-24 23:40] VITALS: BP 161/81
--- NOTE | 2023-02-24 23:50 | ED.VIS.FALL ---
HPI HPI - Fall History of Present Illness Chief Complaint: Fall Narrative Narrative: Patient states he got up out of his wheelchair in his bathroom and he slipped on the floor and fell to his left shoulder. He is nonambulatory because he has had several surgeries in his left lower extremity, so he could not get up on his own. His called EMS for a lift assist. When helping a mom up, he was a little lightheaded transiently, so they did an EKG. There is quite a bit of artifact, they sent it prehospital, however the computer reads the EKG is atrial fibrillation which the patient did not have a history of. EMS called to their medical control at [facility], and they advised the patient go to the ER if he has atrial fibrillation that is new, so he was brought here. Patient states he is fine, he has chronic numbness in both of his hands from carpal tunnel, he has pain in both shoulders chronically, he states his left shoulder does not hurt anymore than usual and he can use it as he was before the fall. He states he has no pain from injuries. [facility] Medical History (Updated 02/25/23 @ 01:[address] Marck Cuevas MD) Abscess of right leg Asbestos exposure Body mass index (BMI) 40.0-44.9, adult Chronic diastolic (congestive) heart failure Chronic venous insufficiency Depression Diabetes mellitus Diabetic ulcer of right lower leg associated with type 2 diabetes mellitus, with fat layer exposed Essential (primary) hypertension Fracture of right tibia and fibula GERD (gastroesophageal reflux disease) GERD (gastroesophageal reflux disease) Gout Hyperlipidemia Hypothyroidism Hypothyroidism Low back pain Lumbar spinal stenosis Lymphedema MRSA (methicillin resistant Staphylococcus aureus) infection MRSA bacteremia Neuropathic pain 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 Obesity, morbid, BMI 40.0-49.9 Obstructive sleep apnea EH (obstructive sleep apnea) Osteoarthritis of knees, bilateral Sleep apnea Tricuspid valve insufficiency Type 2 diabetes mellitus Unspecified fracture of shaft of right tibia, sequela Venous stasis dermatitis of right lower extremity Home Medications paroxetine HCl 40 mg tablet 40 mg PO DAILY depression 09/27/16 [History Last Taken 03/10/19 09:34] potassium chloride 20 mEq tablet,extended release(part/cryst) 20 meq PO BIDCM supplement 09/27/16 [History Last Taken 03/10/19 09:32] simvastatin 40 mg tablet 40 mg PO QHS cholesterol 09/27/16 [History Last Taken 03/09/19 21:01] dulaglutide 1.5 mg/0.5 mL subcutaneous pen injector 1.5 mg SQ QWEEK diabetes 01/26/19 [History Last Taken 01/24/19 08:00] acetaminophen 500 mg tablet 1,000 mg PO Q6H PRN PRN Mild Pain (-01/26) 02/24/19 [Rx Last Taken 03/09/19 17:32] levothyroxine 112 mcg tablet 112 mcg PO DAILY thyroid 03/10/19 [History Last Taken 09/02/19] nystatin 100,000 unit/gram topical powder 1 applic topical 0600,2200 PRN skin irritation 03/10/19 [History Last Taken Unknown] doxepin 25 mg capsule 25 mg PO QHS #30 caps 04/24/19 [Rx Last Taken Unknown] pantoprazole 40 mg tablet,delayed release 40 mg PO DAILY #30 tabs 04/24/19 [Rx Last Taken 09/02/19] polyethylene glycol 3350 17 gram oral powder packet 17 gm PO DAILY #30 packets 04/24/19 [Rx Last Taken Unknown] torsemide 20 mg tablet (Demadex) 20 mg PO BID 07/18/19 [History Last Taken Unknown] ergocalciferol (vitamin D2) 1,250 mcg (50,000 unit) capsule 50,000 unit PO QMONTH 08/29/19 [History Last Taken Unknown] insulin glargine 100 unit/mL (3 mL) subcutaneous pen 25 units subcut QHS 08/29/19 [History Last Taken Unknown] allopurinol 100 mg tablet 100 mg PO DAILY 09/04/19 [Rx Last Taken Unknown] docusate sodium 100 mg capsule 100 mg PO BID 09/04/19 [Rx Last Taken Unknown] doxycycline monohydrate 100 mg capsule 100 mg PO BID 09/04/19 [Rx Last Taken Unknown] insulin lispro 100 unit/mL subcutaneous pen See Protocol subcut ACHS 09/04/19 [Rx Last Taken Unknown] nutrition tx glu intol,lac-free,soy-fiber 0.06 gram-1.2 kcal/mL liquid 120 ml PO 4X/DAY 09/04/19 [Rx Last Taken Unknown] promethazine 25 mg tablet 25 mg PO Q4H PRN PRN NAUSEA/VOMITING 10/17/19 [Rx Last Taken Unknown] metoprolol succinate 25 mg tablet,extended release 24 hr 12.5 mg PO BID BP #90 tabs 03/28/22 [Rx Last Taken Unknown] Allergy/AdvReac Type Severity Reaction Status Date / Time cocaine Allergy Unknown Verified 02/24/23 23:40 vancomycin Allergy Rash Verified 02/24/23 23:40 atorvastatin calcium AdvReac Pain in Verified 02/24/23 23:40 [From Lipitor] joints Corticosteroids AdvReac ANXIETY, Verified 02/24/23 23:40 (Glucocorticoids) INSOMNIA [steroids] haloperidol [From Haldol] AdvReac Other Verified 02/24/23 23:40 morphine AdvReac Other Verified 02/24/23 23:40 oxycodone [From OxyIR] AdvReac Pain in Verified 02/24/23 23:40 joints prednisone AdvReac ANXIOUS, Verified 02/24/23 23:40 INSOMNIA Family History Mother Hypertension Father Hypertension Surgical History Cochlear implant in place H/O shoulder surgery History of left heart catheterization (08/15/17) History of right knee joint replacement Hx of cholecystectomy Presence of right artificial knee joint Previous back surgery Social History Smoking Status: Former smoker ROS ROS ED Review of Systems ROS Unobtainable: other Details: Somewhat limited due to very hard of hearing Constitutional Constitutional ED: Denies chills or fever(s) Eyes Eyes: Denies change in vision or diplopia ENT ENT ED: Reports hearing loss; Denies rhinorrhea or sore throat Cardiovascular Cardiovascular: Denies chest pain or palpitations Respiratory/Chest Respiratory/Chest: Denies cough or dyspnea Gastrointestinal Gastrointestinal: Denies abdominal pain, diarrhea, nausea or vomiting Genitourinary Genitourinary ED: Denies dysuria or hematuria Musculoskeletal Musculoskeletal: Denies back pain or neck pain Integumentary Reports other Details: sore/ulcer left lower leg ; Denies abscess or rash Neurologic Neurologic: Reports paresthesias; Denies headache(s) or weakness Psychiatric Psychiatric: Denies anxiety or suicidal thoughts EXAM Physical Exam Const Vital Signs: 02/24/23 23:36 02/24/23 23:40 02/24/23 23:41 Temperature 97.6 F L Temperature Source Temporal Pulse Rate 61 Respiratory Rate 12 Respiratory Effort Normal Blood Pressure 161/81 H Blood Pressure Mean 107 Pulse Ox 93 Oxygen Delivery Method 02/25/23 01:06 Temperature Temperature Source Pulse Rate 60 Respiratory Rate 21 H Respiratory Effort Blood Pressure 160/64 H Blood Pressure Mean 96 Pulse Ox 93 Oxygen Delivery Method Room Air Positive well nourished, well developed and obese General Appearance ED: well developed and NAD Nutritional Appearance: obese HEENT Reports moist mucous membranes normocephalic and atraumatic Eyes PERRL and EOMs intact bilaterally Neck full ROM and supple Chest Wall inspection of chest normal and palpation of chest normal Chest Narrative: No clavicle tenderness Resp normal respiratory effort and clear to auscultation bilaterally Cardio regular rate, regular rhythm and no murmurs GI non-tender and non-distended Auscultation: normoactive bowel sounds Palpation: soft Back/Spine no CVA tenderness General Back: other FROM Extremity Extremity Narrative: Limited range of motion of both shoulders but symmetrically able to flex them and abduct them without pain. No proximal humerus tenderness on the left where he fell. No signs of trauma there. Full range of motion of all lower extremity joints without any significant discomfort. General Extremety ED: Yes edema; Negative for pulses abnormal or tenderness General Extremity: edema bilateral lower extremity Details: moderate (With signs of chronic stasis dermatitis); Negative for pulses abnormal Neuro oriented x3, CN's II-XII intact bilaterally and no sensory deficits noted Terra Coma Scale: document GCS findings Spontaneous Obeys Commands Oriented 15 Sensorium / Orientation: awake and alert Motor Exam: strength 5/5 throughout Psych mental status grossly normal and thought process normal Skin Skin Narrative: No signs of acute trauma. Nontender nonnecrotic 2 cm superficial ulceration medial aspect of the proximal left lower leg, some surrounding erythema nontender. MDM MDM MDM Narrative Medical decision making narrative: We obtained an EKG, there is no artifact on her EKG unlike the EMS version. Appears that he is having PACs and in a sinus rhythm, does not appear to be atrial fibrillation. Reassured and discharged home. History & Record Review Discussion w/independent historian: Patient and Family Rhythm Strip Rhythm Strip: Sinus Rhythm Rate: 60 Ectopy: PAC(s) EKG Initial EKG: Attestation: I personally reviewed and interpreted this EKG as follows: Interpretation: Sinus Rhythm and No Acute Injury Pattern Comments: Frequent PACs Prior EKG tracings: available for review Prior: Unchanged (Except PACs) Discharge Plan Triage Chief Complaint: Fall ED Provider: Marck Cuevas Dx/Rx/DC Orders Clinical Impression: Fall from slip, trip, or stumble Instructions: Slips Trips Falls Prevention Prescriptions: No Action torsemide [Demadex] 20 mg tablet 20 mg PO BID simvastatin 40 MG tablet 40 mg PO QHS Label Comments: CHOLESTEROL potassium chloride 20 MEQ tablet 20 meq PO BIDCM Label Comments: SUPPLEMENT paroxetine HCl 40 MG tablet 40 mg PO DAILY Label Comments: MENTAL HEALTH dulaglutide 1.5 MG/0.5 ML pen injector 1.5 mg SQ QWEEK Rx Instructions: takes on fridays acetaminophen 500 MG tablet 1,000 mg PO Q6H PRN PRN (Reason: Mild Pain (-01/26)) 0RF nystatin 1 APPLIC bottle 1 applic topical 0600,2200 PRN (Reason: skin irritation) Protocol: *Topical Application Instructions APPLICATION INSTRUCTIONS: groin levothyroxine 112 MCG tablet 112 mcg PO DAILY polyethylene glycol 3350 17 GM packet 17 gm PO DAILY Qty: 30 0RF doxepin 25 MG capsule 25 mg PO QHS Qty: 30 0RF pantoprazole 40 MG tablet 40 mg PO DAILY Qty: 30 0RF ergocalciferol (vitamin D2) 50,000 UNIT capsule 50,000 unit PO QMONTH insulin glargine 100 UNITS/ML insulin pen 25 units subcut QHS allopurinol 100 MG tablet 100 mg PO DAILY 0RF doxycycline monohydrate 100 MG capsule 100 mg PO BID 0RF promethazine 25 MG tablet 25 mg PO Q4H PRN PRN (Reason: NAUSEA/VOMITING) 0RF docusate sodium 100 MG capsule 100 mg PO BID 0RF insulin lispro 100 UNIT/ML insulin pen See Protocol subcut ACHS 0RF Protocol: 1. Sliding Scale Insulin Low Dosing Condition: 150-224 mg/dl = 1 unit Condition: 225-299 mg/dl = 2 units Condition: 300-374 mg/dl = 3 units Condition: 375-499 mg/dl = 4 units Condition: Greater than 449 call physician Protocol Text: - Use for Total Daily Dose of Insulin 15-27 units - Thin, elderly, renal patients LOW DOSING ALGORITHM nut.tx.gluc intol,lf,soy-fiber 120 ML liquid 120 ml PO 4X/DAY 0RF metoprolol succinate 25 mg tablet extended release 24 hr 12.5 mg PO BID Qty: 90 3RF Primary Care Provider: Gil Wheeler Chi Referrals: Gil Wheeler Chi, MD [Primary Care Provider] - As Needed Disposition Disposition: Home, Self Care
[2023-02-25 01:06] VITALS: BP 160/64; PULSE 60; RESP 21; O2SAT 93
== END 2023-02-25 01:45 | disposition home or self-care (01) ==
PROVIDERS: Emergency Provider Emergency Medicine; PCP Family Medicine Geriatric Medicine; Visit Provider Emergency Medicine
DX: M25.512 Pain in left shoulder (principal); I50.32 Chronic diastolic (congestive) heart failure; G89.29 Other chronic pain; M25.511 Pain in right shoulder; G47.33 Obstructive sleep apnea (adult) (pediatric); E66.9 Obesity, unspecified; W19.XXXA Unspecified fall, initial encounter; Z87.891 Personal history of nicotine dependence
CPT/HCPCS: 93005; 99284

== ENCOUNTER → 2023-08-08 | Outpatient (CLI) | payer MEDICARE, SELFPAY ==
[2023-08-08 15:51] LABS: Absolute Lymphocyte Count 3.04 X10^3/uL (0.83-4.51); Absolute Neutrophil Count 5.3 X10^3/uL (2.0-7.7); Basophil# 0.05 X10^3/uL; Basophil% 0.5 % (0-1); Eosinophil# 0.23 X10^3/uL; Eosinophils% 2.4 % (0-5); Hematocrit 46.8 % (40-54); Hemoglobin 14.8 g/dL (13.0-16.5); Lymphocyte # 3.04 X10^3/ul (0.83-4.51); Mean Corp Hgb Conc 31.6 g/dL (32-36); Mean Corpuscular Volume 88.5 fL (80-94); Mean Platelet Vol. 10.5 fl (6.2-12.0); Monocyte# 0.88 X10^3/uL; Monocyte% 9.3 % (0-10); NRBC Flagged by Analyzer 0 % (0-5); Neutrophil # 5.27 X10^3/uL (2.7-7.7); Neutrophil % 55.5 % (47-70); Platelet Count 379 K/mm3 (150-450); RBC Distribution Width CV 14.4 % (11.6-14.6); RBC Distribution Width SD 45.8 fl (35.1-43.9); Red Blood Count 5.29 M/mm3 (4.6-6.2); White Blood Count 9.5 K/mm3 (4.4-11.0)
[2023-08-08 16:02] LABS: Vitamin D,25 Hydroxy 55.3 ng/mL
[2023-08-08 16:18] LABS: ALB/GLOB Ratio 0.7 RATIO (0.9-2.4); AST(SGOT) 16 U/L (15-37); Alanine Aminotransfer ALT/SGPT 17 U/L (16-61); Albumin, Serum 3.3 g/dL (3.2-5.0); Alkaline Phosphatase 134 U/L (45-117); Anion Gap 9 (5-15); BUN 17 mg/dL (7-18); Calcium,Total 9.4 mg/dL (8.5-10.1); Chloride 101 mmol/L (98-107); Creatinine, Serum 1.31 mg/dL (0.70-1.30); EST Glomerular Filtration Rate 56 mL/min (>60); Est Glom Filt Rate - Afr Amer 68 mL/min (>60); Globulin 4.5 g/dL (2.2-4.2); Glucose 247 mg/dL (74-106); Potassium 3.1 mmol/L (3.5-5.1); Protein, Total 7.8 g/dL (6.4-8.2); Sodium Level 139 mmol/L (136-145); Thyroid Stim Hormone (TSH) 6.11 uIU/mL (0.358-3.74); Uric Acid 7.7 mg/dL (3.5-7.2)
== END | disposition home or self-care (01) ==
LOC: POLAB3 14:36
PROVIDERS: PCP Family Medicine Geriatric Medicine; Visit Provider Family Medicine Geriatric Medicine
DX: E11.65 Type 2 diabetes mellitus with hyperglycemia (principal); E55.9 Vitamin D deficiency, unspecified; I10 Essential (primary) hypertension; M10.9 Gout, unspecified
CPT/HCPCS: 36415; 80053; 82306; 84443; 84550; 85025

== ENCOUNTER 2023-09-10 15:24 | Emergency (ER) | payer MEDICARE, SELFPAY ==
[2023-09-10 15:31] VITALS: BP 195/79; PULSE 58; RESP 14; TEMP 36.2; O2SAT 94; BMI 43.5
[2023-09-10 15:35] VITALS: O2SAT 94
--- NOTE | 2023-09-10 15:56 | RAD_ITS ---
STUDY: X-RAY - RIGHT HUMERUS REASON FOR EXAM: Male, 78 years old. Injury/Pain TECHNIQUE: 2 view(s) of the humerus. COMPARISON: None. FINDINGS: Normal visualized humerus. There is no demonstrated fracture or osseous destructive process. There is no demonstrated soft tissue abnormality. RAD/Humerus min 2 Views IMPRESSION: Normal x-ray examination of the humerus. Electronically Signed: Dakota Mendez MD at 17:22 EDT ,
--- NOTE | 2023-09-10 15:57 | RAD_ITS ---
STUDY: X-RAY - RIGHT TIBIA AND FIBULA REASON FOR EXAM: Male, 78 years old. Injury/Pain TECHNIQUE: 2 view(s) of the tibia and fibula were obtained. COMPARISON: 05/27/2019 FINDINGS: Healed depressed fracture of the medial tibial plateau with a lateral plate and screws with interval fracture of one of the screws. Normal visualized fibula. The soft tissue structures are unremarkable. RAD/Tibia & Fibula 2 Views IMPRESSION: No acute fracture or dislocation. Electronically Signed: Dakota Mendez MD at 17:46 EDT ,
--- NOTE | 2023-09-10 16:00 | RAD_ITS ---
STUDY: X-RAY - LEFT TIBIA AND FIBULA REASON FOR EXAM: Male, 78 years old. FALL -- PAIN TECHNIQUE: 2 view(s) of the tibia and fibula were obtained. COMPARISON: None. FINDINGS: Normal visualized tibia. Normal visualized fibula. The soft tissue structures are unremarkable. RAD/Tibia & Fibula 2 Views IMPRESSION: Normal x-ray examination of the tibia and fibula. Electronically Signed: Dakota Mendez MD at 17:44 EDT ,
--- NOTE | 2023-09-10 16:00 | RAD_ITS ---
STUDY: X-RAY - LEFT HUMERUS REASON FOR EXAM: Male, 78 years old. FALL -- PAIN TECHNIQUE: 2 view(s) of the humerus. COMPARISON: None. FINDINGS: Normal visualized humerus. There is no demonstrated fracture or osseous destructive process. There is no demonstrated soft tissue abnormality. RAD/Humerus min 2 Views IMPRESSION: Normal x-ray examination of the humerus. Electronically Signed: Dakota Mendez MD at 17:23 EDT ,
--- NOTE | 2023-09-10 16:02 | EDS_ITS ---
HPI HPI - Fall History of Present Illness Chief Complaint: Fall Informant: patient Occured/Mechanism Occurred: Today Mechanism/Context: Yes same level fall Usually ambulates: Non-Ambulatory Pain/Injury Pain Location: head, upper extremity and lower extremity Quality of Pain: Aching Worsened by: Nothing Relieved by: Nothing Associated Symptoms Associated Symptoms: Negative for Parasthesias, Weakness, Loss of function or Loss of consciousness Narrative Narrative: Patient presents after a fall that occurred today. Patient states he was in his motorized wheelchair going down a ramp when he fell out of his wheelchair. Patient normally does not ambulate. Patient complains of pain in his bilateral lower legs, bilateral upper arms, and right forehead. Patient also admits to some mild pain in both hands. Patient describes his pain as aching. Patient states nothing makes it worse and nothing makes it better. Patient is unsure of his last tetanus. Patient denies any loss of consciousness. Tetanus Immunization: >10 years [facility] Medical History (Updated 09/10/23 @ 19:[address] Bib Napoles, DO) Abscess of right leg Asbestos exposure Body mass index (BMI) 40.0-44.9, adult Chronic diastolic (congestive) heart failure Chronic venous insufficiency Depression Diabetes mellitus Diabetic ulcer of right lower leg associated with type 2 diabetes mellitus, with fat layer exposed Essential (primary) hypertension Fracture of right tibia and fibula GERD (gastroesophageal reflux disease) GERD (gastroesophageal reflux disease) Gout Hyperlipidemia Hypothyroidism Hypothyroidism Low back pain Lumbar spinal stenosis Lymphedema MRSA (methicillin resistant Staphylococcus aureus) infection MRSA bacteremia Neuropathic pain 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 Obesity, morbid, BMI 40.0-49.9 Obstructive sleep apnea EH (obstructive sleep apnea) Osteoarthritis of knees, bilateral Sleep apnea Tricuspid valve insufficiency Type 2 diabetes mellitus Unspecified fracture of shaft of right tibia, sequela Venous stasis dermatitis of right lower extremity Home Medications paroxetine HCl 40 mg tablet 40 mg PO DAILY depression 09/27/16 [History Last Taken 03/10/19 09:34] potassium chloride 20 mEq tablet,extended release(part/cryst) 20 meq PO BIDCM supplement 09/27/16 [History Last Taken 03/10/19 09:32] simvastatin 40 mg tablet 40 mg PO QHS cholesterol 09/27/16 [History Last Taken 03/09/19 21:01] dulaglutide 1.5 mg/0.5 mL subcutaneous pen injector 1.5 mg SQ QWEEK diabetes 01/26/19 [History Last Taken 01/24/19 08:00] acetaminophen 500 mg tablet 1,000 mg (2 x 500 mg) PO Q6H PRN PRN Mild Pain (1- 3) 02/24/19 [Rx Last Taken 03/09/19 17:32] levothyroxine 112 mcg tablet 112 mcg PO DAILY thyroid 03/10/19 [History Last Taken 09/02/19] nystatin 100,000 unit/gram topical powder 1 applic topical 0600,2200 PRN skin irritation 03/10/19 [History Last Taken Unknown] doxepin 25 mg capsule 25 mg PO QHS #30 caps 04/24/19 [Rx Last Taken Unknown] pantoprazole 40 mg tablet,delayed release 40 mg PO DAILY #30 tabs 04/24/19 [Rx Last Taken 09/02/19] polyethylene glycol 3350 17 gram oral powder packet 17 gm PO DAILY #30 packets 04/24/19 [Rx Last Taken Unknown] torsemide 20 mg tablet (Demadex) 20 mg PO BID 07/18/19 [History Last Taken Unknown] ergocalciferol (vitamin D2) 1,250 mcg (50,000 unit) capsule 50,000 unit PO QMONTH 08/29/19 [History Last Taken Unknown] insulin glargine 100 unit/mL (3 mL) subcutaneous pen 25 units subcut QHS 08/29/19 [History Last Taken Unknown] allopurinol 100 mg tablet 100 mg PO DAILY 09/04/19 [Rx Last Taken Unknown] docusate sodium 100 mg capsule 100 mg PO BID 09/04/19 [Rx Last Taken Unknown] doxycycline monohydrate 100 mg capsule 100 mg PO BID 09/04/19 [Rx Last Taken Unknown] insulin lispro 100 unit/mL subcutaneous pen See Protocol subcut ACHS 09/04/19 [Rx Last Taken Unknown] nutrition tx glu intol,lac-free,soy-fiber 0.06 gram-1.2 kcal/mL liquid 120 ml PO 4X/DAY 09/04/19 [Rx Last Taken Unknown] promethazine 25 mg tablet 25 mg PO Q4H PRN PRN NAUSEA/VOMITING 09/04/19 [Rx Last Taken Unknown] metoprolol succinate 25 mg tablet,extended release 24 hr 12.5 mg (1/2 x 25 mg) PO BID BP #90 tabs 03/28/22 [Rx Last Taken Unknown] Allergy/AdvReac Type Severity Reaction Status Date / Time cocaine Allergy Unknown Verified 02/24/23 23:40 vancomycin Allergy Rash Verified 02/24/23 23:40 atorvastatin calcium AdvReac Pain in Verified 02/24/23 23:40 [From Lipitor] joints Corticosteroids AdvReac ANXIETY, Verified 02/24/23 23:40 (Glucocorticoids) INSOMNIA [steroids] haloperidol [From Haldol] AdvReac Other Verified 02/24/23 23:40 morphine AdvReac Other Verified 02/24/23 23:40 oxycodone [From OxyIR] AdvReac Pain in Verified 02/24/23 23:40 joints prednisone AdvReac ANXIOUS, Verified 02/24/23 23:40 INSOMNIA Family History Mother Hypertension Father Hypertension Surgical History Cochlear implant in place H/O shoulder surgery History of left heart catheterization (08/15/17) History of right knee joint replacement Hx of cholecystectomy Presence of right artificial knee joint Previous back surgery Social History Smoking Status: Former smoker ROS ROS ED Constitutional Constitutional ED: Denies chills or fever(s) Eyes Eyes: Denies blurry vision or change in vision ENT ENT ED: Denies rhinorrhea or sore throat Cardiovascular Cardiovascular: Denies chest pain or palpitations Respiratory/Chest Respiratory/Chest: Denies cough or dyspnea Gastrointestinal Gastrointestinal: Reports diarrhea; Denies nausea or vomiting Genitourinary Genitourinary ED: Denies dysuria or hematuria Musculoskeletal Musculoskeletal: Reports back pain; Denies neck pain Integumentary Denies abscess or rash Neurologic Neurologic: Denies headache(s) or weakness Allergic/Immunologic Allergic/Immunologic ED: Denies mouth swelling or urticaria EXAM Physical Exam Const Vital Signs: 09/10/23 15:31 09/10/23 15:35 Temperature 97.1 F L Temperature Source Temporal Pulse Rate 58 L Respiratory Rate 14 Respiratory Effort Normal Non-Labored Respiratory Pattern Normal Blood Pressure 195/79 H Blood Pressure Mean 117 Pulse Ox 94 94 Oxygen Delivery Method Room Air Room Air Positive well nourished, well developed and obese General Appearance ED: well developed and NAD Nutritional Appearance: obese HEENT HEENT Narrative: There is a hematoma and abrasion over the right forehead. There is no active bleeding. There is no bony crepitance or step-off noted. No lacerations noted. Eyes PERRL and EOMs intact bilaterally Neck full ROM and supple Chest Wall palpation of chest normal Resp normal respiratory effort and clear to auscultation bilaterally Cardio regular rate and regular rhythm GI non-tender and non-distended Palpation: soft Extremity Extremity Narrative: There is tenderness over the lower legs bilaterally. There is also tenderness over the upper arms bilaterally. There is no deformity noted. There is mild edema. There is no ecchymosis. Range of motion was slightly limited in all motions of the upper arms and lower legs bilaterally secondary to pain. Sensation was intact to light touch bilaterally in the upper and lower extremities. Radial and pedal pulses are equal bilaterally. Neuro oriented x3, CN's II-XII intact bilaterally, moves all extremities, no focal motor deficits and no sensory deficits noted Sensorium / Orientation: alert Psych mental status grossly normal and thought process normal Skin Skin Narrative: There is an abrasion over the right forehead. There is also hematoma over this area. MDM MDM MDM Narrative Medical decision making narrative: Differential diagnosis includes intracranial bleeding, closed head injury, humerus fracture, tibia-fibula fracture, contusion, and sprain. CT scan of the brain will be obtained to assess for intracranial bleeding. X-rays of the humerus bilaterally will be obtained to assess for fracture. X-rays of the bilateral tibia and fibula will be obtained to assess for fracture. Radiography Diagnostic Testing: Clinical Impression(s) from Imaging Studies Humerus X-Ray 09/10/23 15:56 IMPRESSION: Normal x-ray examination of the humerus. Electronically Signed: Dakota Mendez MD at 17:22 EDT , Tibia/Fibula X-Ray 09/10/23 15:57 IMPRESSION: No acute fracture or dislocation. Electronically Signed: Dakota Mendez MD at 17:46 EDT Reading Location ID and State: [employer] / [employer] Tel , Service support , Humerus X-Ray 09/10/23 16:00 IMPRESSION: Normal x-ray examination of the humerus. Electronically Signed: Dakota Mendez MD at 17:23 EDT Reading Location ID and State: [employer] / [employer] Tel , Service support , Tibia/Fibula X-Ray 09/10/23 16:00 IMPRESSION: Normal x-ray examination of the tibia and fibula. Electronically Signed: Dakota Mendez MD at 17:44 EDT Reading Location ID and State: [employer] Tel , Service support , Brain CT 09/10/23 16:55 IMPRESSION: Small right frontal scalp hematoma. No intracranial hemorrhage Electronically Signed: Dakota Mendez MD at 17:25 EDT Reading Location ID and State: [employer] Tel , Service support , X-rays of the right tibia and fibula were obtained. There are 3 views. On my independent interpretation, there is no acute fracture. There is prior plate and screws from tibial plateau fracture. Radiologist also interpreted the x- rays and agrees. X-rays of the left tibia and fibula were obtained. There are 3 views. On my independent interpretation, there is no acute fracture. There is no soft tissue swelling noted. Radiologist also interpreted the x-rays and agrees. X-rays of the right humerus were obtained. There are 3 views. On my independent interpretation, there is no acute fracture noted. There is no soft tissue swelling noted. There is no dislocation. Radiologist also interpreted the x-rays and agrees. X-rays of the left humerus were obtained. There are 3 views. On my independent interpretation, there is no acute fracture noted. There is no soft tissue swelling. There is no dislocation. Radiologist also interpreted the x-rays and agrees. CT scan of the brain was obtained. There is no acute intracranial abnormality. There is a small frontal hematoma noted. There is no fracture noted. This was interpreted by the radiologist and was also independently reviewed by myself. Treatment and Re-Evaluation Narrative: Patient was given a tetanus booster. Bacitracin dressing was applied to the right forehead. Patient was advised of his findings. Patient was instructed to keep the abrasion clean. Patient was instructed use ice to the areas. Patient was instructed take Tylenol or ibuprofen as needed for pain. Patient understood and was agreeable with the plan. All questions were answered. Discharge Plan Triage Chief Complaint: Fall ED Provider: Bib Napoles Dx/Rx/DC Orders Clinical Impression: Forehead abrasion, Closed head injury, Multiple contusions, Fall Instructions: ED Abrasion, ED Head Injury (Adult) Prescriptions: No Action torsemide [Demadex] 20 mg tablet 20 mg PO BID simvastatin 40 MG tablet 40 mg PO QHS Patient Comments: CHOLESTEROL potassium chloride 20 MEQ tablet 20 meq PO BIDCM Patient Comments: SUPPLEMENT paroxetine HCl 40 MG tablet 40 mg PO DAILY Patient Comments: MENTAL HEALTH dulaglutide 1.5 MG/0.5 ML pen injector 1.5 mg SQ QWEEK Rx Instructions: takes on fridays acetaminophen 500 MG tablet 1,000 mg PO Q6H PRN PRN (Reason: Mild Pain (-01/26)) 0RF nystatin 1 APPLIC bottle 1 applic topical 0600,2200 PRN (Reason: skin irritation) Protocol: *Topical Application Instructions APPLICATION INSTRUCTIONS: groin levothyroxine 112 MCG tablet 112 mcg PO DAILY polyethylene glycol 3350 17 GM packet 17 gm PO DAILY Qty: 30 0RF doxepin 25 MG capsule 25 mg PO QHS Qty: 30 0RF pantoprazole 40 MG tablet 40 mg PO DAILY Qty: 30 0RF ergocalciferol (vitamin D2) 50,000 UNIT capsule 50,000 unit PO QMONTH insulin glargine 100 UNITS/ML insulin pen 25 units subcut QHS allopurinol 100 MG tablet 100 mg PO DAILY 0RF doxycycline monohydrate 100 MG capsule 100 mg PO BID 0RF promethazine 25 MG tablet 25 mg PO Q4H PRN PRN (Reason: NAUSEA/VOMITING) 0RF docusate sodium 100 MG capsule 100 mg PO BID 0RF insulin lispro 100 UNIT/ML insulin pen See Protocol subcut ACHS 0RF Protocol: 1. Sliding Scale Insulin Low Dosing Condition: 150-224 mg/dl = 1 unit Condition: 225-299 mg/dl = 2 units Condition: 300-374 mg/dl = 3 units Condition: 375-499 mg/dl = 4 units Condition: Greater than 449 call physician Protocol Text: - Use for Total Daily Dose of Insulin 15-27 units - Thin, elderly, renal patients LOW DOSING ALGORITHM nut.tx.gluc intol,lf,soy-fiber 120 ML liquid 120 ml PO 4X/DAY 0RF metoprolol succinate 25 mg tablet extended release 24 hr 12.5 mg PO BID Qty: 90 3RF Primary Care Provider: Gil Wheeler Chi Referrals: Gil Wheeler Chi, MD [Primary Care Provider] - 5-7 Days Disposition Disposition: Home, Self Care
--- NOTE | 2023-09-10 16:55 | CT_ITS ---
STUDY: CT BRAIN WITHOUT CONTRAST REASON FOR EXAM: Male, 78 years old. Trauma RADIATION DOSAGE (If Supplied By Facility): CTDIvol = ( 44.99 ) mGy, DLP = ( 863.60 ) mGycm TECHNIQUE: Transaxial CT imaging of the brain was performed without administration of intravenous contrast material. Individualized dose optimization techniques were used for this CT. COMPARISON: 11/29/2019 FINDINGS: Small right frontal scalp hematoma. Healed left parietal craniotomy. Normal size ventricles and extra-axial spaces for the patient''s age. Normal white matter tracts of the cerebral hemispheres. Normal basal ganglia and thalami. Normal brainstem. Normal cerebellum. There is no intracranial hemorrhage. There are no findings of an acute ischemic infarction. Normal visualized paranasal sinuses. CT/Brain/Head without Contrast IMPRESSION: Small right frontal scalp hematoma. No intracranial hemorrhage Electronically Signed: Dakota Mendez MD at 17:25 EDT ,
[2023-09-10] MEDS: Acetaminophen 500 MG Tablet 1000 MG PO (18:07)
[2023-09-10] MEDS: Diphth,Pertuss(Acell),Tet Vac 0.5 ML Vial IM (18:08)
[2023-09-10 19:35] VITALS: BP 168/82; PULSE 62; RESP 18; O2SAT 94
== END 2023-09-10 19:40 | disposition home or self-care (01) ==
PROVIDERS: Emergency Provider Emergency Medicine; PCP Family Medicine Geriatric Medicine; Visit Provider Emergency Medicine
DX: S00.03XA Contusion of scalp, initial encounter (principal); I50.32 Chronic diastolic (congestive) heart failure; E11.40 Type 2 diabetes mellitus with diabetic neuropathy, unspecified; G47.33 Obstructive sleep apnea (adult) (pediatric); E66.9 Obesity, unspecified; Z87.891 Personal history of nicotine dependence; W18.30XA Fall on same level, unspecified, initial encounter; Z23 Encounter for immunization
CPT/HCPCS: 70450; 73060; 73590; 90471; 90715; 99284

== ENCOUNTER 2023-10-26 17:17 | Emergency (ER) | payer MEDICARE, SELFPAY ==
[2023-10-26] VITALS (7 sets, daily range): BP systolic 187–216; BP diastolic 82–129; PULSE 63–72; RESP 16–21; TEMP 36.2–36.6; O2SAT 92–97; BMI 42.7
--- NOTE | 2023-10-26 18:04 | CT_ITS ---
We are attempting to reach an attending provider to discuss findings. An addendum with communication details will be sent when the communication is complete. STUDY: CT ABDOMEN AND PELVIS WITH CONTRAST REASON FOR EXAM: Male, 78 years old. abdominal pain RADIATION DOSAGE (If Supplied By Facility): CTDIvol = ( 21.87 ) mGy, DLP = ( 1836.07 ) mGycm TECHNIQUE: Transaxial images were obtained from the dome of the diaphragm to the symphysis pubis without oral contrast. IV 100mL Isovue-300 was administered. Sagittal and coronal images were reconstructed. Individualized dose optimization techniques were used for this CT. COMPARISON: August 15, 2018 FINDINGS: Minor bibasilar interstitial thickening. Heart size is normal. There is multivessel coronary artery calcification. Nonspecific fatty infiltrated liver without mass or bile duct dilatation . The gallbladder has been removed surgically. Normal spleen. Normal pancreas. Normal bilateral adrenal glands. Tiny nonobstructing right renal calculus. No evidence for renal obstruction or mass.. The left kidney is unobstructed. There is a solid cortical nodule measuring approximately 2.5 x 2 cm Normal visualized stomach. Normal small intestine. Minor diverticular changes of the descending colon without evidence for acute diverticulitis The appendix is visualized and appears normal. Postsurgical changes in the right lower quadrant Atherosclerotic changes of the aorta without evidence for aneurysm. Normal inferior vena cava. Normal retroperitoneum. Incompletely distended thick walled bladder of uncertain significance. There appears to be tiny focal calcification within the anterior wall Normal abdominal wall. Lumbar spine demonstrates degenerative change. Right hip prosthesis is noted CT/Abdomen/Pelvis W IV Cont ONLY IMPRESSION: No evidence for small bowel obstruction or acute appendicitis Right nephrolithiasis without evidence for obstruction.. Solid nodule in the left kidney which is a new finding since prior exam. Cannot exclude possibility of malignancy. MRI recommended for further evaluation Minor diverticular disease of the colon without evidence for acute diverticulitis Electronically Signed: Marcial Yang MD at 19:35 EST ,
--- NOTE | 2023-10-26 18:04 | CT_ITS ---
STUDY: CT BRAIN WITHOUT CONTRAST REASON FOR EXAM: Male, 78 years old. headache, vomitting, remote trauma RADIATION DOSAGE (If Supplied By Facility): CTDIvol = ( 44.99 ) mGy, DLP = ( 863.60 ) mGycm TECHNIQUE: Transaxial CT imaging of the brain was performed without administration of intravenous contrast material. Individualized dose optimization techniques were used for this CT. COMPARISON: September 10, 2023 FINDINGS: Normal soft tissue structures. Normal calvarium. Mild atrophy and periventricular white matter ischemic changes.. Normal basal ganglia and thalami. Normal brainstem. Normal cerebellum. There is no intracranial hemorrhage. There are no findings of an acute ischemic infarction. Small mucous retention cyst in right maxillary sinus. Postsurgical changes of the orbits. CT/Brain/Head without Contrast IMPRESSION: Mild atrophy and periventricular white matter ischemic changes. No evidence for obstructive hydrocephalus mass or acute bleed Electronically Signed: Marcial Yang MD at 19:24 EST Reading Location ID and State: [address] [place] [address] Tel , Service support ,
--- NOTE | 2023-10-26 18:06 | EDS_ITS ---
HPI History of Present Illness Chief Complaint: Abd Pain Detail of Chief Complaint: Abdominal pain, headache, vomiting and diarrhea Informant: patient Narrative Narrative: Patient presents to the emergency department with multiple complaints of abdominal pain, headache, vomiting, and diarrhea. Patient is extremely hard of hearing therefore I have to write to him and have him respond to me. Patient states that he fell out of his buggy 3 to 4 weeks ago and has had a headache ever since with intermittent dizziness. Patient states that he had headaches before that as well however. Patient also states that he has had diarrhea and vomiting for years more than 10 years. Patient was having abdominal pain today and headache and vomiting and became concerned and called EMS. He denies any fevers. He denies blood in his stool or black stool. Patient denies sick contacts. [facility] Medical History (Updated 10/26/23 @ 22:[address] Dianna Francis, ) Abscess of right leg Asbestos exposure Body mass index (BMI) 40.0-44.9, adult Chronic diastolic (congestive) heart failure Chronic venous insufficiency Depression Diabetes mellitus Diabetic ulcer of right lower leg associated with type 2 diabetes mellitus, with fat layer exposed Essential (primary) hypertension Fracture of right tibia and fibula GERD (gastroesophageal reflux disease) GERD (gastroesophageal reflux disease) Gout Hyperlipidemia Hypothyroidism Hypothyroidism Low back pain Lumbar spinal stenosis Lymphedema MRSA (methicillin resistant Staphylococcus aureus) infection MRSA bacteremia Neuropathic pain 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 Obesity, morbid, BMI 40.0-49.9 Obstructive sleep apnea EH (obstructive sleep apnea) Osteoarthritis of knees, bilateral Sleep apnea Tricuspid valve insufficiency Type 2 diabetes mellitus Unspecified fracture of shaft of right tibia, sequela Venous stasis dermatitis of right lower extremity Home Medications paroxetine HCl 40 mg tablet 40 mg PO DAILY depression 09/27/16 [History Last Taken 03/10/19 09:34] potassium chloride 20 mEq tablet,extended release(part/cryst) 20 meq PO BIDCM supplement 09/27/16 [History Last Taken 03/10/19 09:32] simvastatin 40 mg tablet 40 mg PO QHS cholesterol 09/27/16 [History Last Taken 03/09/19 21:01] dulaglutide 1.5 mg/0.5 mL subcutaneous pen injector 1.5 mg SQ QWEEK diabetes 01/26/19 [History Last Taken 01/24/19 08:00] acetaminophen 500 mg tablet 1,000 mg (2 x 500 mg) PO Q6H PRN PRN Mild Pain (- 01/26) 02/24/19 [Rx Last Taken 03/09/19 17:32] levothyroxine 112 mcg tablet 112 mcg PO DAILY thyroid 03/10/19 [History Last Taken 09/02/19] nystatin 100,000 unit/gram topical powder 1 applic topical 0600,2200 PRN skin irritation 03/10/19 [History Last Taken Unknown] doxepin 25 mg capsule 25 mg PO QHS #30 caps 04/24/19 [Rx Last Taken Unknown] pantoprazole 40 mg tablet,delayed release 40 mg PO DAILY #30 tabs 04/24/19 [Rx Last Taken 09/02/19] polyethylene glycol 3350 17 gram oral powder packet 17 gm PO DAILY #30 packets 04/24/19 [Rx Last Taken Unknown] torsemide 20 mg tablet (Demadex) 20 mg PO BID 07/18/19 [History Last Taken Unknown] ergocalciferol (vitamin D2) 1,250 mcg (50,000 unit) capsule 50,000 unit PO QMONTH 08/29/19 [History Last Taken Unknown] insulin glargine 100 unit/mL (3 mL) subcutaneous pen 25 units subcut QHS 08/29/19 [History Last Taken Unknown] allopurinol 100 mg tablet 100 mg PO DAILY 09/04/19 [Rx Last Taken Unknown] docusate sodium 100 mg capsule 100 mg PO BID 09/04/19 [Rx Last Taken Unknown] doxycycline monohydrate 100 mg capsule 100 mg PO BID 09/04/19 [Rx Last Taken Unknown] insulin lispro 100 unit/mL subcutaneous pen See Protocol subcut ACHS 09/04/19 [Rx Last Taken Unknown] nutrition tx glu intol,lac-free,soy-fiber 0.06 gram-1.2 kcal/mL liquid 120 ml PO 4X/DAY 09/04/19 [Rx Last Taken Unknown] promethazine 25 mg tablet 25 mg PO Q4H PRN PRN NAUSEA/VOMITING 09/04/19 [Rx Last Taken Unknown] metoprolol succinate 25 mg tablet,extended release 24 hr 12.5 mg (1/2 x 25 mg) PO BID BP #90 tabs 03/28/22 [Rx Last Taken Unknown] nystatin 100,000 unit/gram topical ointment 1 applic topical BID #30 grams 10/26/23 [Rx Last Taken Unknown] ondansetron 4 mg disintegrating tablet 4 mg PO Q8H PRN PRN Nausea #10 tabs 10/26/23 [Rx Last Taken Unknown] Allergy/AdvReac Type Severity Reaction Status Date / Time cocaine Allergy Unknown Verified 02/24/23 23:40 vancomycin Allergy Rash Verified 02/24/23 23:40 atorvastatin calcium AdvReac Pain in Verified 02/24/23 23:40 [From Lipitor] joints Corticosteroids AdvReac ANXIETY, Verified 02/24/23 23:40 (Glucocorticoids) INSOMNIA [steroids] haloperidol [From Haldol] AdvReac Other Verified 02/24/23 23:40 morphine AdvReac Other Verified 02/24/23 23:40 oxycodone [From OxyIR] AdvReac Pain in Verified 02/24/23 23:40 joints prednisone AdvReac ANXIOUS, Verified 02/24/23 23:40 INSOMNIA Family History Mother Hypertension Father Hypertension Surgical History Cochlear implant in place H/O shoulder surgery History of left heart catheterization (08/15/17) History of right knee joint replacement Hx of cholecystectomy Presence of right artificial knee joint Previous back surgery Social History Smoking Status: Former smoker ROS ROS ED Review of Systems ROS Unobtainable: other Constitutional Constitutional ED: Reports lethargy; Denies chills, fever(s), sweats or weight loss Eyes Eyes: Denies blurry vision, change in vision or diplopia ENT ENT ED: Denies rhinorrhea or sore throat Cardiovascular Cardiovascular: Denies chest pain, orthopnea or racing heartbeat Respiratory/Chest Respiratory/Chest: Denies cough, dyspnea, dyspnea on exertion, orthopnea or sputum Gastrointestinal Gastrointestinal: Reports abdominal pain, nausea and vomiting; Denies diarrhea Genitourinary Genitourinary ED: Denies dysuria, hematuria or urinary frequency Musculoskeletal Musculoskeletal: Denies arthralgias, back pain, myalgias or neck pain Integumentary Denies abscess, Abrasions or rash Neurologic Neurologic: Reports headache(s); Denies weakness Psychiatric Psychiatric: Denies anxiety, depression or suicidal thoughts Endocrine Endocrinology: Denies polydipsia, polyphagia or polyuria Hematologic/Lymphatic Hematologic/Lymphatic: Denies easy bleeding, easy bruising or lymphadenopathy Allergic/Immunologic Allergic/Immunologic ED: Denies mouth swelling, tongue swelling or urticaria EXAM Physical Exam Const Vital Signs: 10/26/23 17:19 10/26/23 17:25 10/26/23 18:42 Temperature 97.8 F Temperature Source Temporal Pulse Rate 72 63 Respiratory Rate 16 18 Blood Pressure 216/87 H 191/82 H Blood Pressure Mean 130 118 Pulse Ox 94 94 Oxygen Delivery Method Room Air Room Air 10/26/23 19:20 10/26/23 20:30 10/26/23 21:41 Temperature 97.2 F L 97.5 F L Temperature Source Oral Pulse Rate 65 71 68 Respiratory Rate 21 H 17 20 H Blood Pressure 203/87 H 205/102 H 187/129 H Blood Pressure Mean 125 136 148 Pulse Ox 94 92 97 Oxygen Delivery Method Room Air Room Air Positive well nourished and well developed General Appearance ED: well developed and NAD HEENT Reports TM's clear and moist mucous membranes normocephalic and atraumatic; Negative for trauma or tenderness Tympanic Membrane ED: Yes TM's clear Eyes PERRL and EOMs intact bilaterally General Eye ED: Negative for pale conjunctiva or scleral icterus Neck no lymphadenopathy, supple and no JVD General: Negative for tenderness Chest Wall inspection of chest normal and palpation of chest normal Chest: Negative for tenderness Resp normal respiratory effort and clear to auscultation bilaterally Effort and Inspection: Negative for respiratory distress or pain with movement Auscultation: Negative for rhonchi, wheezes or diminished lung sounds Cardio regular rate, regular rhythm, S1 normal heart sound, S2 normal heart sound and no murmurs Peripheral Pulses: pulses 2+ throughout GI normal to inspection, nondistended, normoactive bowel sounds, soft to palpation, non-distended and no masses GI Narrative: Tender to palpation over left lower quadrant with some mild guarding. There is no rebound, rigidity, or peritoneal signs Back/Spine no CVA tenderness and no thoracic nor lumbar tenderness Extremity normal to inspection General Extremety ED: Negative for edema General Extremity: Negative for edema Neuro oriented x3, CN's II-XII intact bilaterally, no sensory deficits noted and gait normal Sensorium / Orientation: awake, alert, oriented to person, oriented to place and oriented to time Motor Exam: strength 5/5 throughout and strength abnormal Psych mental status grossly normal Skin no rashes or lesions noted and no wounds MDM MDM MDM Narrative Medical decision making narrative: Patient presents with abdominal pain as well as headache and vomiting and diarrhea. Differential would be viral gastroenteritis versus acute intracranial process versus bowel obstruction or other acute intra-abdominal process. EKG obtained on arrival showed a sinus rhythm with a rate of 65 bpm with old septal infarct. CBC with differential obtained showed a white count of 11.7 with hemoglobin of 14.5 and platelet count of 425. Chemistries essentially unremarkable. Lactate was normal at 1.8. LFTs were normal. Troponin normal at 27. Urinalysis unremarkable. CT scan of the brain without contrast showed chronic involutional changes. CT scan of the abdomen/pelvis with IV contrast showed a left renal mass for which they recommended further follow-up. Discussed all results with patient and family members that are with him and daughters. They are comfortable with plan going forward. They will follow-up with her primary care physician. Will refer to urology for the abnormal mass in the kidney. Family states that he cannot have MRIs because of the cochlear implant and other surgeries that he had. May require other modalities such as ultrasound to evaluate further and possible biopsy of the area. Was able to tolerate fluids and is hungry and wants to eat. Did present with elevated blood pressure initially gave him hydralazine 10 mg IV. And when his blood pressure did not improve I did give him Lopressor 5 mg IV every 5 minutes x 3. Blood pressure did improve. Patient has not taken his blood pressure medicine because he's been vomiting. Recommended that he continue with his normal medications at home. He will be given a prescription for Zofran for home as well as nystatin cream as he does have some evidence of Marti in the right groin that I was made aware of by nursing staff. Lab Data Attestation: I reviewed the patient's lab results. Labs: Laboratory Results - last 24 hr 10/26/23 10/26/23 10/26/23 18:00 18:10 20:20 WBC 11.7 H RBC 5.34 Hgb 14.5 Hct 44.6 MCV 83.5 MCH 27.2 MCHC 32.5 RDW Std Deviation 43.1 RDW Coeff of Geovanni 14.3 Plt Count 425 MPV 10.0 Immature Gran % (Auto) 0.400 Neut % (Auto) 67.5 Lymph % (Auto) 22.4 Maverick % (Auto) 8.1 Eos % (Auto) 1.2 Baso % (Auto) 0.4 Absolute Neuts (auto) 7.9 H Absolute Lymphs (auto) 2.61 Nucleated RBC % 0 Sodium 140 Potassium 3.2 L Chloride 102 Carbon Dioxide 33.0 H Anion Gap 5 BUN 14 Creatinine 1.02 Estim Creat Clear Calc 55.80 Est GFR (MDRD) Af Amer 91 Est GFR (MDRD) Non-Af 75 BUN/Creatinine Ratio 13.7 Glucose 162 H Lactic Acid 1.8 Calcium 9.3 Total Bilirubin 0.40 AST 15 ALT 14 L Alkaline Phosphatase 115 Troponin I High Sens 27 Total Protein 7.1 Albumin 3.1 L Globulin 4.0 Albumin/Globulin Ratio 0.8 L Urine Color Urine Clarity Urine pH Ur Specific Arden Urine Protein Urine Glucose (UA) Urine Ketones Urine Occult Blood Urine Nitrite Urine Bilirubin Urine Urobilinogen Ur Leukocyte Esterase Urine RBC Urine WBC Ur Squamous Epith Cells Urine Bacteria Urine Mucus 10/26/23 21:15 WBC RBC Hgb Hct MCV MCH MCHC RDW Std Deviation RDW Coeff of Geovanni Plt Count MPV Immature Gran % (Auto) Neut % (Auto) Lymph % (Auto) Maverick % (Auto) Eos % (Auto) Baso % (Auto) Absolute Neuts (auto) Absolute Lymphs (auto) Nucleated RBC % Sodium Potassium Chloride Carbon Dioxide Anion Gap BUN Creatinine Estim Creat Clear Calc Est GFR (MDRD) Af Amer Est GFR (MDRD) Non-Af BUN/Creatinine Ratio Glucose Lactic Acid Calcium Total Bilirubin AST ALT Alkaline Phosphatase Troponin I High Sens Total Protein Albumin Globulin Albumin/Globulin Ratio Urine Color Yellow Urine Clarity Clear Urine pH 8.0 Ur Specific Arden 1.010 Urine Protein 15 H Urine Glucose (UA) Normal Urine Ketones Negative Urine Occult Blood Negative Urine Nitrite Negative Urine Bilirubin Negative Urine Urobilinogen Normal Ur Leukocyte Esterase Negative Urine RBC 0 SEEN Urine WBC 0 SEEN Ur Squamous Epith Cells 0 SEEN Urine Bacteria 0 SEEN Urine Mucus 0 SEEN Radiography Diagnostic Testing: Clinical Impression(s) from Imaging Studies Abdomen/Pelvis CT 10/26/23 18:04 IMPRESSION: No evidence for small bowel obstruction or acute appendicitis Right nephrolithiasis without evidence for obstruction.. Solid nodule in the left kidney which is a new finding since prior exam. Cannot exclude possibility of malignancy. MRI recommended for further evaluation Minor diverticular disease of the colon without evidence for acute diverticulitis Electronically Signed: Marcial Yang MD at 19:35 EST , ADDENDUM: 10/26/231950 IMPRESSION: No evidence for small bowel obstruction or acute appendicitis Right nephrolithiasis without evidence for obstruction.. Solid nodule in the left kidney which is a new finding since prior exam. Cannot exclude possibility of malignancy. MRI recommended for further evaluation Minor diverticular disease of the colon without evidence for acute diverticulitis N.B. : The above Results were Read Back by Marcial Yang MD to Dianna Francis DO, and understanding confirmed on 10/26/2023 19:44:53 (ET). Electronically Signed: Marcial Yang MD at 19:35 EST , Brain CT 10/26/23 18:04 IMPRESSION: Mild atrophy and periventricular white matter ischemic changes. No evidence for obstructive hydrocephalus mass or acute bleed Electronically Signed: Marcial Yang MD at 19:24 EST , EKG Initial EKG: Attestation: I personally reviewed and interpreted this EKG as follows: Comments: Ashkan rhythm with rate of 65 bpm with old septal infarct Discharge Plan Triage Chief Complaint: Abd Pain ED Provider: Dianna Francis Dx/Rx/DC Orders Clinical Impression: Viral gastroenteritis, Marti infection, Hypertension Instructions: ED Marti Skin Infection (Adult), ED Hypertension, Established, ED Gastroenteritis, Viral (Adult) Prescriptions: New ondansetron [ondansetron] 4 mg tablet,disintegrating 4 mg PO Q8H PRN PRN (Reason: Nausea) Qty: 10 0RF nystatin 100,000 unit/gram ointment 1 applic topical BID Qty: 30 0RF No Action torsemide [Demadex] 20 mg tablet 20 mg PO BID simvastatin 40 MG tablet 40 mg PO QHS Patient Comments: CHOLESTEROL potassium chloride 20 MEQ tablet 20 meq PO BIDCM Patient Comments: SUPPLEMENT paroxetine HCl 40 MG tablet 40 mg PO DAILY Patient Comments: MENTAL HEALTH dulaglutide 1.5 MG/0.5 ML pen injector 1.5 mg SQ QWEEK Rx Instructions: takes on fridays acetaminophen 500 MG tablet 1,000 mg PO Q6H PRN PRN (Reason: Mild Pain (-01/26)) 0RF nystatin 1 APPLIC bottle 1 applic topical 0600,2200 PRN (Reason: skin irritation) Protocol: *Topical Application Instructions APPLICATION INSTRUCTIONS: groin levothyroxine 112 MCG tablet 112 mcg PO DAILY polyethylene glycol 3350 17 GM packet 17 gm PO DAILY Qty: 30 0RF doxepin 25 MG capsule 25 mg PO QHS Qty: 30 0RF pantoprazole 40 MG tablet 40 mg PO DAILY Qty: 30 0RF ergocalciferol (vitamin D2) 50,000 UNIT capsule 50,000 unit PO QMONTH insulin glargine 100 UNITS/ML insulin pen 25 units subcut QHS allopurinol 100 MG tablet 100 mg PO DAILY 0RF doxycycline monohydrate 100 MG capsule 100 mg PO BID 0RF promethazine 25 MG tablet 25 mg PO Q4H PRN PRN (Reason: NAUSEA/VOMITING) 0RF docusate sodium 100 MG capsule 100 mg PO BID 0RF insulin lispro 100 UNIT/ML insulin pen See Protocol subcut ACHS 0RF Protocol: 1. Sliding Scale Insulin Low Dosing Condition: 150-224 mg/dl = 1 unit Condition: 225-299 mg/dl = 2 units Condition: 300-374 mg/dl = 3 units Condition: 375-499 mg/dl = 4 units Condition: Greater than 449 call physician Protocol Text: - Use for Total Daily Dose of Insulin 15-27 units - Thin, elderly, renal patients LOW DOSING ALGORITHM nut.tx.gluc intol,lf,soy-fiber 120 ML liquid 120 ml PO 4X/DAY 0RF metoprolol succinate 25 mg tablet extended release 24 hr 12.5 mg PO BID Qty: 90 3RF Primary Care Provider: Gil Wheeler Chi Referrals: Veto Saxena MD [Med Staff - Active Staff] - 3-5 Days Gil Wheeler Chi, MD [Primary Care Provider] - Activity Restrictions/Additional Instructions: You have a mass in your left kidney that will require further evaluation to determine if it is a tumor or malignancy. Disposition Disposition: Home, Self Care
[2023-10-26 18:15] LABS: Absolute Lymphocyte Count 2.61 X10^3/uL (0.83-4.51); Absolute Neutrophil Count 7.9 X10^3/uL (2.0-7.7); Basophil# 0.05 X10^3/uL; Basophil% 0.4 % (0-1); Eosinophil# 0.14 X10^3/uL; Eosinophils% 1.2 % (0-5); Hematocrit 44.6 % (40-54); Hemoglobin 14.5 g/dL (13.0-16.5); Lymphocyte # 2.61 X10^3/ul (0.83-4.51); Lymphocyte % 22.4 % (19-41); Mean Corp Hgb Conc 32.5 g/dL (32-36); Mean Corpuscular Hgb 27.2 pg (27.0-32.0); Mean Corpuscular Volume 83.5 fL (80-94); Monocyte# 0.94 X10^3/uL; Monocyte% 8.1 % (0-10); NRBC Flagged by Analyzer 0 % (0-5); Neutrophil # 7.86 X10^3/uL (2.7-7.7); Neutrophil % 67.5 % (47-70); Platelet Count 425 K/mm3 (150-450); RBC Distribution Width CV 14.3 % (11.6-14.6); RBC Distribution Width SD 43.1 fl (35.1-43.9); Red Blood Count 5.34 M/mm3 (4.6-6.2); White Blood Count 11.7 K/mm3 (4.4-11.0)
[2023-10-26] MEDS: Ondansetron 4 MG/2 ML Vial IV (18:15)
[2023-10-26] MEDS: 0.9% Normal Saline (1000mL) 1,000 ML 125 ML IV (18:30)
[2023-10-26 18:33] LABS: ALB/GLOB Ratio 0.8 RATIO (0.9-2.4); AST(SGOT) 15 U/L (15-37); Alanine Aminotransfer ALT/SGPT 14 U/L (16-61); Albumin, Serum 3.1 g/dL (3.2-5.0); Alkaline Phosphatase 115 U/L (45-117); Anion Gap 5 (5-15); BUN 14 mg/dL (7-18); BUN/Creat Ratio 13.7 RATIO (10-20); Calcium,Total 9.3 mg/dL (8.5-10.1); Chloride 102 mmol/L (98-107); Creatinine, Serum 1.02 mg/dL (0.70-1.30); EST Glomerular Filtration Rate 75 mL/min (>60); Est Glom Filt Rate - Afr Amer 91 mL/min (>60); Glucose 162 mg/dL (74-106); Potassium 3.2 mmol/L (3.5-5.1); Protein, Total 7.1 g/dL (6.4-8.2); Sodium Level 140 mmol/L (136-145)
[2023-10-26 18:48] LABS: Lactic Acid 1.8 mmol/L (0.4-1.9)
[2023-10-26] MEDS: hydrALAZINE 20 MG/ML Vial 10 MG IV (20:27)
[2023-10-26] MEDS: Potassium Chloride Oral Tablet 20 MEQ 40 MEQ PO (20:27)
[2023-10-26 20:47] LABS: Troponin-I HS 27 pg/mL (3.0-78.0)
[2023-10-26] MEDS: Metoprolol Tartrate 5 MG/5 ML Vial IV ×2 (21:11→21:38)
[2023-10-26 21:20] LABS: Bacteria 0 SEEN /hpf (None Seen); Mucous, Urine 0 SEEN /hpf (<or=2+); Red Blood Cells-Urine 0 SEEN /hpf (0-5); Squamous Epithelial Cells - UA 0 SEEN /hpf (0-5); White Blood Cells 0 SEEN /hpf (0-5)
[2023-10-26 21:23] LABS: Color, Urine Yellow (Yellow); Glucose, Dipstick Normal (Normal); Ketone-Dipstick Negative (Negative); Leukocyte Esterase-Dipstick Negative /ul (Negative); Nitrite-Dipstick Negative (Negative); Occult Blood-Urine Negative /ul (Negative); Protein-Dipstick 15 mg/dl (Negative); Urine Bilirubin Dipstick Negative (Negative); Urine Clarity Clear (Clear); Urine Urobilinogen Normal (Normal)
== END 2023-10-26 22:28 | disposition home or self-care (01) ==
PROVIDERS: Emergency Provider Emergency Medicine; PCP Family Medicine Geriatric Medicine; Visit Provider Emergency Medicine
DX: A08.4 Viral intestinal infection, unspecified (principal); I11.0 Hypertensive heart disease with heart failure; I50.32 Chronic diastolic (congestive) heart failure; E11.40 Type 2 diabetes mellitus with diabetic neuropathy, unspecified; G47.33 Obstructive sleep apnea (adult) (pediatric); Z87.891 Personal history of nicotine dependence
CPT/HCPCS: 70450; 74177; 80053; 81001; 83605; 84484; 85025; 87428; 93005; 99285; J7030; Q9967; A4216; J2405

== ENCOUNTER 2023-10-31 22:12 | Inpatient (IN) | payer MEDICARE, SELFPAY ==
[2023-10-31 22:30] VITALS: BP 134/86; PULSE 68; RESP 17; RESP 19; TEMP 36.6; O2SAT 95; BMI 41.9
--- NOTE | 2023-10-31 22:41 | HP.PCM_ITS ---
HPI - General General Date of Admission: 10/31/23 Date of Service: 11/01/23 Chief Complaint: Here for rehabilitation. HPI Narrative PAYTON GONZALES, is a 78 Male who presents with followin10/28/2023 Ad[facility]. Nausea, vomiting, abdominal pain, scrotal pain, cough. Blood pressure 196/97, Pulsox 95% on room air. Glucose 204, K 3.1, Alk phos 389, ALT 215, AST 398, Total bili 4. RUQ ultrasound showed fatty liver, small upper abdomen ascites. CT head negative. Chest X-ray showed left lower lobe infiltrate. 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 Labetalol, Morphine, Zofran, Potassium, IV fluids given in ED. Patient deaf, difficult history. Nausea, vomiting, abdominal pain, diarrhea x 4 days, then bloating. Blood pressure high, flushing. Local ER found no acute findings, discharged home. Dry cough, left testicular pain, headache, presented to [facility] ER. Levaquin 750mg daily for pneumonia. Hepatitis panel negative for transaminitis. 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 Patient status post cholecystectomy, treated supportively, did well. Nystatin powder for tinea corporis, tinea cruris. Lac-Hydrin bilateral lower extremities for chronic venous stasis dermatitis. Eating, drinking well. 10/31/2023 Admit to TCU with debility, here for rehabilitation, strengthening, prior to discharge home with . [facility] Medical History (Updated 10/31/23 @ 22:[address] Gil Wheeler MD) Abscess of right leg Asbestos exposure Body mass index (BMI) 40.0-44.9, adult Chronic diastolic (congestive) heart failure Chronic venous insufficiency Depression Diabetes mellitus Diabetic ulcer of right lower leg associated with type 2 diabetes mellitus, with fat layer exposed Essential (primary) hypertension Fracture of right tibia and fibula GERD (gastroesophageal reflux disease) GERD (gastroesophageal reflux disease) Gout Hyperlipidemia Hypothyroidism Hypothyroidism Low back pain Lumbar spinal stenosis Lymphedema MRSA (methicillin resistant Staphylococcus aureus) infection MRSA bacteremia Neuropathic pain 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 Obesity, morbid, BMI 40.0-49.9 Obstructive sleep apnea EH (obstructive sleep apnea) Osteoarthritis of knees, bilateral Sleep apnea Tricuspid valve insufficiency Type 2 diabetes mellitus Unspecified fracture of shaft of right tibia, sequela Venous stasis dermatitis of right lower extremity Home Medications paroxetine HCl 40 mg tablet 40 mg PO DAILY depression 09/27/16 [History Last Taken 03/10/19 09:34] potassium chloride 20 mEq tablet,extended release(part/cryst) 20 meq PO BIDCM supplement 09/27/16 [History Last Taken 03/10/19 09:32] simvastatin 40 mg tablet 40 mg PO QHS cholesterol 09/27/16 [History Last Taken 03/09/19 21:01] dulaglutide 1.5 mg/0.5 mL subcutaneous pen injector 1.5 mg SQ QWEEK diabetes 01/26/19 [History Last Taken 01/24/19 08:00] acetaminophen 500 mg tablet 1,000 mg (2 x 500 mg) PO Q6H PRN PRN Mild Pain (- 3) 02/24/19 [Rx Last Taken 03/09/19 17:32] levothyroxine 112 mcg tablet 112 mcg PO DAILY thyroid 03/10/19 [History Last Taken 09/02/19] nystatin 100,000 unit/gram topical powder 1 applic topical 0600,2200 PRN skin irritation 03/10/19 [History Last Taken Unknown] doxepin 25 mg capsule 25 mg PO QHS sleep #30 caps 04/24/19 [Rx Last Taken 10/31/23] pantoprazole 40 mg tablet,delayed release 40 mg PO DAILY Gerd #30 tabs 04/24/19 [Rx Last Taken 09/02/19] torsemide 20 mg tablet (Demadex) 20 mg PO BID Diuretic 07/18/19 [History Last Taken 10/31/23] ergocalciferol (vitamin D2) 1,250 mcg (50,000 unit) capsule 50,000 unit PO QMONTH supplement 08/29/19 [History Last Taken Unknown] insulin glargine 100 unit/mL (3 mL) subcutaneous pen 25 units subcut QHS Diabetes 08/29/19 [History Last Taken Unknown] allopurinol 100 mg tablet 100 mg PO DAILY gout 09/04/19 [Rx Last Taken 10/31/23] doxycycline monohydrate 100 mg capsule 100 mg PO BID Antibitoic 09/04/19 [Rx Last Taken Unknown] nutrition tx glu intol,lac-free,soy-fiber 0.06 gram-1.2 kcal/mL liquid 120 ml PO 4X/DAY supplement 09/04/19 [Rx Last Taken Unknown] promethazine 25 mg tablet 25 mg PO Q4H PRN PRN NAUSEA/VOMITING 09/04/19 [Rx Last Taken Unknown] metoprolol succinate 25 mg tablet,extended release 24 hr 12.5 mg (1/2 x 25 mg) PO BID BP #90 tabs 03/28/22 [Rx Last Taken Unknown] nystatin 100,000 unit/gram topical ointment 1 applic topical BID irritation #30 grams 10/26/23 [Rx Last Taken Unknown] ondansetron 4 mg disintegrating tablet 4 mg PO Q8H PRN PRN Nausea #10 tabs 10/26/23 [Rx Last Taken Unknown] docusate sodium 100 mg capsule 100 mg PO DAILY Stool softener 10/31/23 [History Last Taken Unknown] insulin lispro 100 unit/mL subcutaneous pen See Protocol subcut ACHS diabetes 10/31/23 [History Last Taken Unknown] levofloxacin 750 mg tablet 750 mg PO Q24H antibiotic 10/31/23 [History Last Taken Unknown] levothyroxine 137 mcg tablet 137 mcg PO DAILY Thyroid 10/31/23 [History Last Taken Unknown] losartan 100 mg tablet 100 mg PO DAILY BP 10/31/23 [History Last Taken Unknown] polyethylene glycol 3350 17 gram oral powder packet 17 g PO DAILY constipation 10/31/23 [History Last Taken Unknown] Allergy/AdvReac Type Severity Reaction Status Date / Time cocaine Allergy Unknown Verified 02/24/23 23:40 vancomycin Allergy Rash Verified 02/24/23 23:40 atorvastatin calcium AdvReac Pain in Verified 02/24/23 23:40 [From Lipitor] joints Corticosteroids AdvReac ANXIETY, Verified 02/24/23 23:40 (Glucocorticoids) INSOMNIA [steroids] haloperidol [From Haldol] AdvReac Other Verified 02/24/23 23:40 morphine AdvReac Other Verified 02/24/23 23:40 oxycodone [From OxyIR] AdvReac Pain in Verified 02/24/23 23:40 joints prednisone AdvReac ANXIOUS, Verified 02/24/23 23:40 INSOMNIA Family History Mother Hypertension Father Hypertension Surgical History Cochlear implant in place H/O shoulder surgery History of left heart catheterization (08/15/17) History of right knee joint replacement Hx of cholecystectomy Presence of right artificial knee joint Previous back surgery Social History (Updated 10/31/23 @ 22:[address] Gil Wheeler MD) household members: spouse Smoking Status: Former smoker alcohol intake: never substance use type: does not use Vital Signs Vital Signs Vital Signs: 10/31/23 22:30 Temperature 97.8 F Temperature Source Temporal Pulse Rate 68 Respiratory Rate 19 H Blood Pressure 134/86 H Blood Pressure Mean 102 Blood Pressure Source Monitor Blood Pressure Position Semi-Fowlers Blood Pressure Location Right Arm Pulse Ox 95 Oxygen Delivery Method Room Air Results Lab / Micro Data 11/01/23 05:17 11/01/23 05:17 Assessment & Plan Assessment/Plan (1) Debility: (2) Pneumonia: (3) Transaminitis: (4) Hyperbilirubinemia: (5) Gout: (6) Insomnia: (7) Diabetes mellitus: (8) Hypothyroidism: (9) Fecal impaction of colon: (10) GERD (gastroesophageal reflux disease): (11) Hypokalemia: (12) Hyperlipidemia: (13) Vitamin D deficiency: (14) Heart failure with preserved ejection fraction: PLAN: Plan 78 year old male with below past medical history hospitalized for pneumonia, transaminitis, hyperbilirubinemia, admitted to TCU with debility, here for rehabilitation, strengthening, prior to discharge home with . * Debility - PT/OT. * Pain - Tylenol 1000mg q6 prn pain (1-10). * Bowel - senna/colace 2 tablets bid, Magnesium citrate 300ml daily prn. * Adult immunization - Administer pneumonia vaccine, covid vaccine, flu vaccine as appropriate. * DVT prophylaxis - Lovenox 40mg sc daily. * Gout - Allopurinol 100mg daily. * CV prophylaxis - Aspirin 81mg daily. 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 * Heart failure preserved ejection fraction - Metoprolol succinate 12.5mg bid, Losartan 100mg daily, Lasix 40mg bidlx. * Diabetes Mellitus II - Tradjenta 5mg daily, Trulicity 3mg qsu, Glargine 25 units qhs. * Pneumonia - Levaquin 750mg q24 thru 11/04/2023. * Hypothyroidism - Levothyroxine 137mcg daily. * Skin irritation - Calmoseptine topical bid. * Tinea Corporis - Nystatin powder topical bid. * GERD - Pantoprazole 40mg daily. * Hypokalemia - KCL 20meq bidcm.
[2023-10-31 22:43] LABS: Bedside Glucose 180 mg/dL (74-106)
--- NOTE | 2023-10-31 23:36 | NURSING ---
received call from pharmacist (Wyatt), simvastatin n/a in house, to be ordered for tomorrow, unable to interchange to lipitor due to allergy.
[2023-10-31 23:40] VITALS: BP 134/86; PULSE 68
[2023-10-31] MEDS: Metoprolol(XL)Succ 25 MG Tablet 12.5 MG PO (23:40)
[2023-10-31] MEDS: traZODone 50 MG Tablet PO (23:41)
[2023-10-31] MEDS: Doxepin Hcl 25 MG Capsule PO (23:41)
--- NOTE | 2023-11-01 01:05 | NURSING ---
Patient confused at times, reports punching staff member at [facility]. Nursing communication in place for outbound call center representative to be contacted in AM for assistance signing admission paperwork.
[2023-11-01] MEDS: Furosemide 40 MG Tablet PO ×2 (05:24→13:27)
[2023-11-01] MEDS: Levothyroxine 137 MCG Tablet PO (05:24)
[2023-11-01 05:29] LABS: Absolute Lymphocyte Count 2.62 X10^3/uL (0.83-4.51); Absolute Neutrophil Count 6.7 X10^3/uL (2.0-7.7); Basophil# 0.05 X10^3/uL; Basophil% 0.5 % (0-1); Eosinophil# 0.18 X10^3/uL; Eosinophils% 1.7 % (0-5); Hematocrit 41.5 % (40-54); Lymphocyte # 2.62 X10^3/ul (0.83-4.51); Lymphocyte % 24.9 % (19-41); Mean Corp Hgb Conc 31.3 g/dL (32-36); Mean Corpuscular Hgb 27.3 pg (27.0-32.0); Mean Corpuscular Volume 87.2 fL (80-94); Mean Platelet Vol. 9.9 fl (6.2-12.0); Monocyte# 0.93 X10^3/uL; Monocyte% 8.8 % (0-10); NRBC Flagged by Analyzer 0 % (0-5); Neutrophil # 6.68 X10^3/uL (2.7-7.7); Neutrophil % 63.6 % (47-70); Platelet Count 386 K/mm3 (150-450); RBC Distribution Width CV 15.2 % (11.6-14.6); RBC Distribution Width SD 48.2 fl (35.1-43.9); Red Blood Count 4.76 M/mm3 (4.6-6.2); White Blood Count 10.5 K/mm3 (4.4-11.0)
[2023-11-01 05:32] VITALS: BP 167/87; PULSE 59
[2023-11-01 05:50] LABS: Anion Gap 6 (5-15); BUN 20 mg/dL (7-18); BUN/Creat Ratio 18.9 RATIO (10-20); Calcium,Total 8.4 mg/dL (8.5-10.1); Chloride 102 mmol/L (98-107); Creatinine, Serum 1.06 mg/dL (0.70-1.30); EST Glomerular Filtration Rate 72 mL/min (>60); Est Glom Filt Rate - Afr Amer 87 mL/min (>60); Estimated Creatinine Clearance 55.57 ml/min; Glucose 158 mg/dL (74-106); Potassium 3.2 mmol/L (3.5-5.1); Sodium Level 138 mmol/L (136-145)
[2023-11-01 06:00] VITALS: BMI 41.5
[2023-11-01 06:33] LABS: Bedside Glucose 151 mg/dL (74-106)
[2023-11-01] MEDS: Aspirin E.C. 81 MG Tablet PO (09:07)
[2023-11-01 09:08] VITALS: BP 139/64; PULSE 62
[2023-11-01] MEDS: Metoprolol(XL)Succ 25 MG Tablet 12.5 MG PO ×2 (09:08→21:34)
[2023-11-01] MEDS: Losartan Potassium 100 MG Tablet PO (09:08)
[2023-11-01] MEDS: Ammonium Lactate 225 gm Bottle 1 APPLIC TOPICAL ×2 (09:09→21:32)
[2023-11-01] MEDS: LINAGLIPTIN 5 MG TABLET PO (09:09)
[2023-11-01] MEDS: Allopurinol 100 MG Tablet PO (09:09)
[2023-11-01] MEDS: Menthol/Lanolin/Calamine/Znox 113 GM Tube 1 APPLIC TOPICAL ×2 (09:09→21:41)
[2023-11-01] MEDS: Pantoprazole Sodium 40 MG Tablet PO (09:10)
[2023-11-01] MEDS: levoFLOXacin 750 MG Tablet PO (09:10)
[2023-11-01] MEDS: Nystatin Powder 15gm Bottle 1 APPLIC TOPICAL ×2 (09:10→21:32)
[2023-11-01] MEDS: Potassium Chloride Oral Tablet 20 MEQ 40 MEQ PO (09:13)
[2023-11-01] MEDS: Senna/Docusate Sodium 1 Tablet 2 TABLET PO ×2 (09:13→21:32)
[2023-11-01 09:56] VITALS: O2SAT 97
[2023-11-01 11:15] LABS: Bedside Glucose 219 mg/dL (74-106)
[2023-11-01] MEDS: Potassium Chloride Oral Tablet 20 MEQ PO ×2 (13:27→17:26)
[2023-11-01] MEDS: Tuberculin,Purif.prot.deriv. 50 TU/ML Vial 0.100000000000000006 ML ID (14:07)
[2023-11-01 15:03] VITALS: BP 156/78; PULSE 59; RESP 16; TEMP 35.7; O2SAT 97
[2023-11-01 17:04] LABS: Bedside Glucose 186 mg/dL (74-106)
[2023-11-01 21:34] VITALS: BP 150/51; PULSE 69
[2023-11-01] MEDS: Doxepin Hcl 25 MG Capsule PO (21:35)
[2023-11-01] MEDS: Insulin Glargine-YFGN 100 UNIT/ML Pen 25 UNIT SC (21:36)
[2023-11-01] MEDS: Acetaminophen 500 MG Tablet 1000 MG PO (21:41)
[2023-11-01 22:02] LABS: Bedside Glucose 288 mg/dL (74-106)
[2023-11-02 06:00] VITALS: BP 165/69; PULSE 79
[2023-11-02] MEDS: Levothyroxine 137 MCG Tablet PO (07:00)
[2023-11-02] MEDS: Enoxaparin 40 MG/0.4 ML Syringe SC (07:00)
[2023-11-02] MEDS: Furosemide 40 MG Tablet PO ×2 (07:01→14:17)
[2023-11-02 07:25] LABS: Bedside Glucose 245 mg/dL (74-106)
[2023-11-02 07:28] VITALS: O2SAT 99
[2023-11-02 08:35] LABS: Anion Gap 4 (5-15); BUN 26 mg/dL (7-18); BUN/Creat Ratio 20.5 RATIO (10-20); Calcium,Total 9.4 mg/dL (8.5-10.1); Chloride 103 mmol/L (98-107); Creatinine, Serum 1.27 mg/dL (0.70-1.30); EST Glomerular Filtration Rate 58 mL/min (>60); Est Glom Filt Rate - Afr Amer 71 mL/min (>60); Estimated Creatinine Clearance 46.38 ml/min; Glucose 239 mg/dL (74-106); Potassium 3.9 mmol/L (3.5-5.1); Sodium Level 137 mmol/L (136-145)
[2023-11-02] MEDS: Potassium Chloride Oral Tablet 20 MEQ PO ×3 (08:45→18:10)
[2023-11-02] MEDS: Aspirin E.C. 81 MG Tablet PO (08:54)
--- NOTE | 2023-11-02 09:50 | NURSING ---
Hand Mixer Note; Activity Asset: Hari Andrade is independent in his choice of daily activities. Raymond has a cochlear implant and still has a hard time hearing so we need to speak very loud. He was given a white board for us to communicate with him if needed. He will watch tv w/CC on and enjoys reading the newspaper. He welcomes visit w/the centrifugal spinner and therapy dog when available. Do to his hear he prefers in room activities over group. Staff will continue to offer activities and respect his right to say no.
[2023-11-02] MEDS: Menthol/Lanolin/Calamine/Znox 113 GM Tube 1 APPLIC TOPICAL ×2 (10:19→22:47)
[2023-11-02] MEDS: levoFLOXacin 750 MG Tablet PO (10:21)
[2023-11-02] MEDS: Losartan Potassium 100 MG Tablet PO (10:21)
[2023-11-02] MEDS: Nystatin Powder 15gm Bottle 1 APPLIC TOPICAL ×2 (10:21→22:48)
[2023-11-02] MEDS: Ammonium Lactate 225 gm Bottle 1 APPLIC TOPICAL ×2 (10:21→22:47)
[2023-11-02 10:23] VITALS: BP 185/76; PULSE 63
[2023-11-02] MEDS: Allopurinol 100 MG Tablet PO (10:23)
[2023-11-02] MEDS: Metoprolol(XL)Succ 25 MG Tablet 12.5 MG PO ×2 (10:23→22:50)
[2023-11-02] MEDS: Senna/Docusate Sodium 1 Tablet 2 TABLET PO ×2 (10:23→22:50)
[2023-11-02] MEDS: LINAGLIPTIN 5 MG TABLET PO (10:23)
[2023-11-02] MEDS: Pantoprazole Sodium 40 MG Tablet PO (10:23)
--- NOTE | 2023-11-02 10:33 | CASEMGMT ---
Social Work Pt known to this worker from previous stay. Pt is extremely JAMUL and poor historian. SW phoned to complete initial assessment. confirmed she has recently lost her vision and pt/ are working to navigate their new lifestyle. does admit to struggles at home, but that she is receiving some services through [facility]. SW inquired about AL for pt and . adamantly denied; neither want to discuss facility living. SW discussed Medicaid, but is adamant they would not qualify, though she denied having completed an application prior. SW continued to provide suggestions for assistance in the home, but remained defensive and refuted each option. The plan is for pt to return home. confirmed pt's wishes for full code. SW educated to [facility] insurance approved from first review, a NRD for 11/13, EDC 11/16. SW will continue to follow for DC planning. EDGAR Cerrato
[2023-11-02 11:27] LABS: Bedside Glucose 248 mg/dL (74-106)
[2023-11-02] MEDS: Insulin Lispro 100 UNIT/ML INSULN.PEN SC ×2 (12:45→17:45)
--- NOTE | 2023-11-02 13:43 | CON.PCM_ITS ---
Assessment & Plan Assessment/Plan (1) Type 2 diabetes mellitus with diabetic polyneuropathy: QUALIFIERS: Diabetes mellitus custodial insulin use: with phthalic acid purifier use Qualified Code(s): E11.42 - Type 2 diabetes mellitus with diabetic polyneuropathy; Z79.4 - assisted (current) use of insulin PLAN: Exam performed Patient diabetic neuropathic with peripheral vascular disease including peripheral arterial disease and venous insufficiency. Patient has multiple superficial ulcerations are small and patchy in nature. Likely related to underlying swelling and stasis dermatitis. Put in orders for daily application of triamcinolone ointment to DAISY ulceration sites along with bacitracin ointment to ulceration sites with overlying dry sterile dressing and application of ESTRELLITA hose or Familia bandage for compression. Nail care performed. Toenails x 10 were debrided in length and thickness without incident using sterile nail nipper. Please contact our service if any additional evaluation is required and we will reevaluate the patient as needed. Otherwise patient will follow-up in the outpatient setting for nail care every 9 weeks. (2) Tinea unguium: (3) Chronic venous insufficiency: (4) Stasis dermatitis of both legs: HPI Consult Data Date of Consult: 11/02/23 HPI Narrative HPI Narrative: PAYTON GONZALES, is a 78 M who presents thickened elongated toenails with pain in setting of diabetic neuropathy and peripheral vascular disease. Patient has bilateral lower extremity swelling along with redness and multiple patchy areas that are open. Patient denies any constitutional symptoms today. Patient has no other complaints. [facility] Medical History (Updated 11/02/23 @ 13:[address] Tyree Camargo, DPKenji) Abscess of right leg Asbestos exposure Body mass index (BMI) 40.0-44.9, adult Chronic diastolic (congestive) heart failure Chronic venous insufficiency Depression Diabetes mellitus Diabetic ulcer of right lower leg associated with type 2 diabetes mellitus, with fat layer exposed Essential (primary) hypertension Fracture of right tibia and fibula GERD (gastroesophageal reflux disease) GERD (gastroesophageal reflux disease) Gout Hyperlipidemia Hypothyroidism Hypothyroidism Low back pain Lumbar spinal stenosis Lymphedema MRSA (methicillin resistant Staphylococcus aureus) infection MRSA bacteremia Neuropathic pain 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 Obesity, morbid, BMI 40.0-49.9 Obstructive sleep apnea EH (obstructive sleep apnea) Osteoarthritis of knees, bilateral Sleep apnea Tricuspid valve insufficiency Type 2 diabetes mellitus Unspecified fracture of shaft of right tibia, sequela Venous stasis dermatitis of right lower extremity Home Medications paroxetine HCl 40 mg tablet 40 mg PO DAILY depression 09/27/16 [History Last Taken 03/10/19 09:34] potassium chloride 20 mEq tablet,extended release(part/cryst) 20 meq PO BIDCM supplement 09/27/16 [History Last Taken 03/10/19 09:32] simvastatin 40 mg tablet 40 mg PO QHS cholesterol 09/27/16 [History Last Taken 03/09/19 21:01] dulaglutide 1.5 mg/0.5 mL subcutaneous pen injector 1.5 mg SQ QWEEK diabetes 01/26/19 [History Last Taken 01/24/19 08:00] acetaminophen 500 mg tablet 1,000 mg (2 x 500 mg) PO Q6H PRN PRN Mild Pain (- 01/26) 02/24/19 [Rx Last Taken 03/09/19 17:32] levothyroxine 112 mcg tablet 112 mcg PO DAILY thyroid 03/10/19 [History Last Taken 09/02/19] nystatin 100,000 unit/gram topical powder 1 applic topical 0600,2200 PRN skin irritation 03/10/19 [History Last Taken Unknown] doxepin 25 mg capsule 25 mg PO QHS sleep #30 caps 04/24/19 [Rx Last Taken 10/31/23] pantoprazole 40 mg tablet,delayed release 40 mg PO DAILY Gerd #30 tabs 04/24/19 [Rx Last Taken 09/02/19] torsemide 20 mg tablet (Demadex) 20 mg PO BID Diuretic 07/18/19 [History Last Taken 10/31/23] ergocalciferol (vitamin D2) 1,250 mcg (50,000 unit) capsule 50,000 unit PO QMONTH supplement 08/29/19 [History Last Taken Unknown] insulin glargine 100 unit/mL (3 mL) subcutaneous pen 25 units subcut QHS Diabetes 08/29/19 [History Last Taken Unknown] allopurinol 100 mg tablet 100 mg PO DAILY gout 09/04/19 [Rx Last Taken 10/31/23] doxycycline monohydrate 100 mg capsule 100 mg PO BID Antibitoic 09/04/19 [Rx Last Taken Unknown] nutrition tx glu intol,lac-free,soy-fiber 0.06 gram-1.2 kcal/mL liquid 120 ml PO 4X/DAY supplement 09/04/19 [Rx Last Taken Unknown] promethazine 25 mg tablet 25 mg PO Q4H PRN PRN NAUSEA/VOMITING 09/04/19 [Rx Last Taken Unknown] metoprolol succinate 25 mg tablet,extended release 24 hr 12.5 mg (1/2 x 25 mg) PO BID BP #90 tabs 03/28/22 [Rx Last Taken Unknown] nystatin 100,000 unit/gram topical ointment 1 applic topical BID irritation #30 grams 10/26/23 [Rx Last Taken Unknown] ondansetron 4 mg disintegrating tablet 4 mg PO Q8H PRN PRN Nausea #10 tabs 10/26/23 [Rx Last Taken Unknown] docusate sodium 100 mg capsule 100 mg PO DAILY Stool softener 10/31/23 [History Last Taken Unknown] insulin lispro 100 unit/mL subcutaneous pen See Protocol subcut ACHS diabetes 10/31/23 [History Last Taken Unknown] levofloxacin 750 mg tablet 750 mg PO Q24H antibiotic 10/31/23 [History Last Taken Unknown] levothyroxine 137 mcg tablet 137 mcg PO DAILY Thyroid 10/31/23 [History Last Taken Unknown] losartan 100 mg tablet 100 mg PO DAILY BP 10/31/23 [History Last Taken Unknown] polyethylene glycol 3350 17 gram oral powder packet 17 g PO DAILY constipation 10/31/23 [History Last Taken Unknown] Allergy/AdvReac Type Severity Reaction Status Date / Time cocaine Allergy Unknown Verified 02/24/23 23:40 vancomycin Allergy Rash Verified 02/24/23 23:40 atorvastatin calcium AdvReac Pain in Verified 02/24/23 23:40 [From Lipitor] joints Corticosteroids AdvReac ANXIETY, Verified 02/24/23 23:40 (Glucocorticoids) INSOMNIA [steroids] haloperidol [From Haldol] AdvReac Other Verified 02/24/23 23:40 morphine AdvReac Other Verified 02/24/23 23:40 oxycodone [From OxyIR] AdvReac Pain in Verified 02/24/23 23:40 joints prednisone AdvReac ANXIOUS, Verified 02/24/23 23:40 INSOMNIA Family History Mother Hypertension Father Hypertension Surgical History Cochlear implant in place H/O shoulder surgery History of left heart catheterization (08/15/17) History of right knee joint replacement Hx of cholecystectomy Presence of right artificial knee joint Previous back surgery Social History household members: spouse Smoking Status: Former smoker alcohol intake: never substance use type: does not use ROS Constitutional Constitutional: Reports fatigue and weight gain; Denies weakness Eyes Eyes: Denies loss of vision, miosis or seeing flashes ENT HEENT: Denies nasal congestion, rhinorrhea or sinus pain Cardiovascular Cardiovascular: Reports leg edema, leg ulcers and pedal edema Respiratory/Chest Respiratory/Chest: Reports red skin; Denies productive cough or breast pain Genitourinary Genitourinary: Denies movement, flank pain or penile discharge Physical Exam Narrative Vascular: Dorsalis pedis posterior tibial pulses diminished bilateral feet. Atrophic skin changes noted such as shiny taut appearance with diminished digital hair growth. +2 pitting edema noted to bilateral lower extremity perimalleolar region. Multiple varicosities noted. Neurologic: Light touch protective sensation diminished bilateral feet. Dermatologic: Multiple superficial ulcerations to bilateral lower extremity. These are small and patchy. No evidence of deep wound formation or acute infection. There is significant erythema to bilateral lower extremity likely related to stasis dermatitis. Musculoskeletal: Muscular strength full to bilateral lower extremity compartments. No gross musculoskeletal deformities. No sign DVT. Const alert and oriented x3 Lab / Micro Data 11/01/23 05:17 11/02/23 08:09 Labs: Laboratory Results - last 24 hr 11/01/23 16:41: POC Glucose 186 H 11/01/23 21:26: POC Glucose 288 H 11/02/23 07:03: POC Glucose 245 H 11/02/23 08:09: Sodium 137, Potassium 3.9, Chloride 103, Carbon Dioxide 30.0, Anion Gap 4 L, BUN 26 H, Creatinine 1.27, Estim Creat Clear Calc 46.38, Est GFR (MDRD) Af Amer 71, Est GFR (MDRD) Non-Af 58 L, BUN/Creatinine Ratio 20.5 H, Glu cose 239 H, Calcium 9.4 11/02/23 11:07: POC Glucose 248 H
[2023-11-02 16:00] VITALS: BP 146/68; PULSE 67; RESP 17; TEMP 36.1; O2SAT 97
[2023-11-02 16:24] LABS: Bedside Glucose 271 mg/dL (74-106)
[2023-11-02] MEDS: DULAGLUTIDE 3 MG/0.5 ML PEN.INJCTR SQ (18:14)
[2023-11-02 21:41] LABS: Bedside Glucose 219 mg/dL (74-106)
[2023-11-02] MEDS: Insulin Glargine-YFGN 100 UNIT/ML Pen 25 UNIT SC (22:46)
[2023-11-02] MEDS: Doxepin Hcl 25 MG Capsule PO (22:49)
[2023-11-02 22:50] VITALS: BP 171/102; PULSE 61
[2023-11-02 23:10] VITALS: BP 198/100; RESP 16
--- NOTE | 2023-11-02 23:19 | NURSING ---
Patient's blood pressure this HS was 171/102 in LFA, sitting, heart rate 61. Rechecked BP manually in BONG and was 198/100. Patient received toprol XL 12.5 mg PO dose at 2250. Consulted Dr. Wheeler via telephone. Dr. Wheeler requested an order for a one time dose of clonidine 0.1 mg PO and to recheck blood pressure in an hour.
[2023-11-02] MEDS: cloNIDine HCl 0.1 MG Tablet 0.100000000000000006 MG PO (23:41)
[2023-11-03] VITALS (8 sets, daily range): BP systolic 143–184; BP diastolic 67–80; PULSE 55–66; RESP 21; TEMP 35.9; O2SAT 97; BMI 33.0
[2023-11-03] MEDS: Furosemide 40 MG Tablet PO ×2 (05:26→13:04)
[2023-11-03] MEDS: Enoxaparin 40 MG/0.4 ML Syringe SC (05:27)
[2023-11-03] MEDS: Levothyroxine 137 MCG Tablet PO (05:27)
[2023-11-03 06:39] LABS: Bedside Glucose 146 mg/dL (74-106)
[2023-11-03] MEDS: Potassium Chloride Oral Tablet 20 MEQ PO ×3 (09:24→17:46)
[2023-11-03] MEDS: Aspirin E.C. 81 MG Tablet PO (09:24)
[2023-11-03] MEDS: Menthol/Lanolin/Calamine/Znox 113 GM Tube 1 APPLIC TOPICAL ×2 (09:25→22:23)
[2023-11-03] MEDS: Losartan Potassium 100 MG Tablet PO (09:25)
[2023-11-03] MEDS: Pantoprazole Sodium 40 MG Tablet PO (09:27)
[2023-11-03] MEDS: Nystatin Powder 15gm Bottle 1 APPLIC TOPICAL ×2 (09:27→22:23)
[2023-11-03] MEDS: levoFLOXacin 750 MG Tablet PO (09:27)
[2023-11-03] MEDS: LINAGLIPTIN 5 MG TABLET PO (09:28)
[2023-11-03] MEDS: Senna/Docusate Sodium 1 Tablet 2 TABLET PO (09:28)
[2023-11-03] MEDS: Metoprolol(XL)Succ 25 MG Tablet 12.5 MG PO ×2 (09:29→22:24)
[2023-11-03] MEDS: Allopurinol 100 MG Tablet PO (09:31)
[2023-11-03] MEDS: Ammonium Lactate 225 gm Bottle 1 APPLIC TOPICAL ×2 (09:32→22:23)
[2023-11-03] MEDS: Triamcinolone 0.1% Ointment 15 gm tube 1 APPLIC TOPICAL (09:32)
[2023-11-03] MEDS: Insulin Lispro 100 UNIT/ML INSULN.PEN SC ×3 (09:33→17:46)
[2023-11-03 10:05] LABS: Anion Gap 3 (5-15); BUN 21 mg/dL (7-18); BUN/Creat Ratio 19.6 RATIO (10-20); Chloride 104 mmol/L (98-107); Creatinine, Serum 1.07 mg/dL (0.70-1.30); EST Glomerular Filtration Rate 71 mL/min (>60); Est Glom Filt Rate - Afr Amer 86 mL/min (>60); Estimated Creatinine Clearance 55.05 ml/min; Glucose 252 mg/dL (74-106); Potassium 3.7 mmol/L (3.5-5.1); Sodium Level 137 mmol/L (136-145)
[2023-11-03 11:18] LABS: Bedside Glucose 224 mg/dL (74-106)
[2023-11-03] MEDS: hydrALAZINE 25 MG Tablet PO ×2 (13:57→22:24)
--- NOTE | 2023-11-03 14:45 | NURSING ---
Pt BP 184/[address] Wheeler updated N.O. for Hydralazine 25mg TID. Order read back.
[2023-11-03] MEDS: Acetaminophen 500 MG Tablet 1000 MG PO (16:16)
[2023-11-03 16:32] LABS: Bedside Glucose 181 mg/dL (74-106)
[2023-11-03 21:32] LABS: Bedside Glucose 283 mg/dL (74-106)
[2023-11-03] MEDS: Insulin Glargine-YFGN 100 UNIT/ML Pen 25 UNIT SC (22:22)
[2023-11-03] MEDS: Doxepin Hcl 25 MG Capsule PO (22:22)
[2023-11-04] VITALS (8 sets, daily range): BP systolic 161–228; BP diastolic 73–98; PULSE 60–68; RESP 16; TEMP 36.1–36.6; O2SAT 98; BMI 40.6
[2023-11-04] MEDS: Levothyroxine 137 MCG Tablet PO (05:43)
[2023-11-04] MEDS: Enoxaparin 40 MG/0.4 ML Syringe SC (05:43)
[2023-11-04] MEDS: Furosemide 40 MG Tablet PO ×2 (05:43→14:04)
[2023-11-04] MEDS: hydrALAZINE 25 MG Tablet PO ×2 (05:46→14:00)
[2023-11-04] MEDS: Ammonium Lactate 225 gm Bottle 1 APPLIC TOPICAL ×2 (05:53→23:05)
[2023-11-04 06:42] LABS: Bedside Glucose 166 mg/dL (74-106)
[2023-11-04 07:16] LABS: Anion Gap 2 (5-15); BUN 20 mg/dL (7-18); BUN/Creat Ratio 22.1 RATIO (10-20); Calcium,Total 9.1 mg/dL (8.5-10.1); Chloride 106 mmol/L (98-107); EST Glomerular Filtration Rate 86 mL/min (>60); Est Glom Filt Rate - Afr Amer 104 mL/min (>60); Estimated Creatinine Clearance 65.44 ml/min; Glucose 174 mg/dL (74-106); Potassium 3.7 mmol/L (3.5-5.1); Sodium Level 137 mmol/L (136-145)
[2023-11-04] MEDS: Menthol/Lanolin/Calamine/Znox 113 GM Tube 1 APPLIC TOPICAL ×2 (07:39→23:05)
[2023-11-04] MEDS: Triamcinolone 0.1% Ointment 15 gm tube 1 APPLIC TOPICAL (07:39)
[2023-11-04] MEDS: Potassium Chloride Oral Tablet 20 MEQ PO ×3 (07:39→17:26)
[2023-11-04] MEDS: Aspirin E.C. 81 MG Tablet PO (07:39)
[2023-11-04] MEDS: Insulin Lispro 100 UNIT/ML INSULN.PEN SC ×3 (07:39→17:38)
[2023-11-04] MEDS: Nystatin Powder 15gm Bottle 1 APPLIC TOPICAL ×2 (07:40→23:04)
[2023-11-04] MEDS: LINAGLIPTIN 5 MG TABLET PO (09:34)
[2023-11-04] MEDS: Losartan Potassium 100 MG Tablet PO (09:34)
[2023-11-04] MEDS: Senna/Docusate Sodium 1 Tablet 2 TABLET PO ×2 (09:34→22:59)
[2023-11-04] MEDS: levoFLOXacin 750 MG Tablet PO (09:34)
[2023-11-04] MEDS: Pantoprazole Sodium 40 MG Tablet PO (09:34)
[2023-11-04] MEDS: Allopurinol 100 MG Tablet PO (09:34)
[2023-11-04] MEDS: Metoprolol(XL)Succ 25 MG Tablet 12.5 MG PO ×2 (09:35→23:00)
[2023-11-04 11:23] LABS: Bedside Glucose 169 mg/dL (74-106)
[2023-11-04] MEDS: Acetaminophen 500 MG Tablet 1000 MG PO (13:35)
--- NOTE | 2023-11-04 15:46 | NURSING ---
Pt Blood Pressure 238/[address] Wheeler updated N.O. for Clonidine 0.1mg TID first dose now and discontinue Hydralazine. Order Read back.
[2023-11-04] MEDS: cloNIDine HCl 0.1 MG Tablet 0.100000000000000006 MG PO ×3 (15:54→22:59)
[2023-11-04 16:16] LABS: Bedside Glucose 159 mg/dL (74-106)
--- NOTE | 2023-11-04 16:59 | NURSING ---
Addendum entered by Shi Dupree 11/04/23 17:20: Dr. Wheeler aware of Corticosteroid and Prednisone allergy. Per Dr. Liam macario to give Dexamethasone. Original Note: Pt BP rechecked 1 hr after administering Clonidine BP 202/[address] Wheeler updated N.O. for x1 dose clonidine 0.1mg and 1mg of Dexamethasone PO at 2300 and check cortisol levels at 0600 to check for Wells Disease. Orders read back.
[2023-11-04 21:19] LABS: Bedside Glucose 211 mg/dL (74-106)
[2023-11-04] MEDS: Insulin Glargine-YFGN 100 UNIT/ML Pen 25 UNIT SC (23:01)
[2023-11-04] MEDS: Doxepin Hcl 25 MG Capsule PO (23:03)
[2023-11-05 05:59] LABS: Absolute Lymphocyte Count 1.85 X10^3/uL (0.83-4.51); Absolute Neutrophil Count 6.5 X10^3/uL (2.0-7.7); Basophil# 0.04 X10^3/uL; Basophil% 0.4 % (0-1); Eosinophil# 0.04 X10^3/uL; Eosinophils% 0.4 % (0-5); Hematocrit 39.1 % (40-54); Hemoglobin 12.4 g/dL (13.0-16.5); Lymphocyte # 1.85 X10^3/ul (0.83-4.51); Lymphocyte % 20.6 % (19-41); Mean Corp Hgb Conc 31.7 g/dL (32-36); Mean Corpuscular Hgb 27.8 pg (27.0-32.0); Mean Corpuscular Volume 87.7 fL (80-94); Mean Platelet Vol. 9.9 fl (6.2-12.0); Monocyte% 5.6 % (0-10); NRBC Flagged by Analyzer 0 % (0-5); Neutrophil # 6.49 X10^3/uL (2.7-7.7); Neutrophil % 72.3 % (47-70); Platelet Count 378 K/mm3 (150-450); RBC Distribution Width CV 15.3 % (11.6-14.6); RBC Distribution Width SD 48.9 fl (35.1-43.9); Red Blood Count 4.46 M/mm3 (4.6-6.2)
[2023-11-05 06:00] VITALS: BP 174/74; PULSE 58; BMI 41.0
[2023-11-05 06:21] LABS: ALB/GLOB Ratio 0.7 RATIO (0.9-2.4); AST(SGOT) 28 U/L (15-37); Alanine Aminotransfer ALT/SGPT 31 U/L (16-61); Albumin, Serum 2.8 g/dL (3.2-5.0); Alkaline Phosphatase 176 U/L (45-117); Anion Gap 7 (5-15); BUN 21 mg/dL (7-18); BUN/Creat Ratio 21.9 RATIO (10-20); Calcium,Total 8.8 mg/dL (8.5-10.1); Chloride 104 mmol/L (98-107); Creatinine, Serum 0.96 mg/dL (0.70-1.30); EST Glomerular Filtration Rate 80 mL/min (>60); Est Glom Filt Rate - Afr Amer 97 mL/min (>60); Estimated Creatinine Clearance 61.35 ml/min; Globulin 3.9 g/dL (2.2-4.2); Glucose 202 mg/dL (74-106); Potassium 3.9 mmol/L (3.5-5.1); Protein, Total 6.7 g/dL (6.4-8.2); Sodium Level 138 mmol/L (136-145)
[2023-11-05] MEDS: Furosemide 40 MG Tablet PO ×2 (06:26→13:26)
[2023-11-05] MEDS: Enoxaparin 40 MG/0.4 ML Syringe SC (06:27)
[2023-11-05] MEDS: Levothyroxine 137 MCG Tablet PO (06:27)
[2023-11-05] MEDS: cloNIDine HCl 0.1 MG Tablet 0.100000000000000006 MG PO ×3 (06:27→21:49)
[2023-11-05 06:38] LABS: Bedside Glucose 174 mg/dL (74-106)
[2023-11-05] MEDS: Insulin Lispro 100 UNIT/ML INSULN.PEN SC ×3 (09:00→17:44)
[2023-11-05] MEDS: Potassium Chloride Oral Tablet 20 MEQ PO ×3 (09:01→17:44)
[2023-11-05] MEDS: Aspirin E.C. 81 MG Tablet PO (09:01)
[2023-11-05] MEDS: BACITRACIN 15 GM Tube 1 APPLIC TOPICAL (09:02)
[2023-11-05] MEDS: Menthol/Lanolin/Calamine/Znox 113 GM Tube 1 APPLIC TOPICAL ×2 (09:02→21:48)
[2023-11-05] MEDS: Triamcinolone 0.1% Ointment 15 gm tube 1 APPLIC TOPICAL (09:02)
[2023-11-05] MEDS: Losartan Potassium 100 MG Tablet PO (09:02)
[2023-11-05 09:03] VITALS: BP 174/74; PULSE 62
[2023-11-05] MEDS: Pantoprazole Sodium 40 MG Tablet PO (09:03)
[2023-11-05] MEDS: Nystatin Powder 15gm Bottle 1 APPLIC TOPICAL ×2 (09:03→21:50)
[2023-11-05] MEDS: amLODIPine 5 MG Tablet PO ×2 (09:03→21:51)
[2023-11-05] MEDS: Metoprolol(XL)Succ 25 MG Tablet 12.5 MG PO ×2 (09:03→21:51)
[2023-11-05] MEDS: Senna/Docusate Sodium 1 Tablet 2 TABLET PO ×2 (09:03→21:51)
[2023-11-05] MEDS: Ammonium Lactate 225 gm Bottle 1 APPLIC TOPICAL ×2 (09:03→21:50)
[2023-11-05] MEDS: LINAGLIPTIN 5 MG TABLET PO (09:04)
[2023-11-05] MEDS: Allopurinol 100 MG Tablet PO (09:04)
--- NOTE | 2023-11-05 09:39 | NURSING ---
CT abdomen pelvis w/ contrast ordered. Per insurance no authorization needed. Faxed order to CT.
[2023-11-05 11:13] LABS: Bedside Glucose 220 mg/dL (74-106)
--- NOTE | 2023-11-05 11:52 | CASEMGMT ---
Social Work BIMS(13) and PHQ-9(2) completed this date for MDS assessment. Pt scored a 2 on PHQ-9--feeling down some of the time and moving slow some of the time--due to recent health issues. BERLIN Jaffe
--- NOTE | 2023-11-05 13:04 | PCM.PN.DRR ---
TCU RX Drug Regimen Review Subjective/Objective Subjective/Objective: Subjective: 78 year old male with below past medical history hospitalized for pneumonia, transaminitis, hyperbilirubinemia, admitted to TCU with debility, here for rehabilitation, strengthening, prior to discharge home with . Objective: Allergies cocaine Allergy (Verified 02/24/23 23:40) Unknown vancomycin Allergy (Verified 02/24/23 23:40) Rash atorvastatin calcium [From Lipitor] Adverse Reaction (Verified 02/24/23 23:40) Pain in joints Corticosteroids (Glucocorticoids) [steroids] Adverse Reaction (Verified 02/24/23 23:40) ANXIETY, INSOMNIA haloperidol [From Haldol] Adverse Reaction (Verified 02/24/23 23:40) Other WENT CRAZY morphine Adverse Reaction (Verified 02/24/23 23:40) Other extremely aggitated oxycodone [From OxyIR] Adverse Reaction (Verified 02/24/23 23:40) Pain in joints extremely aggitated prednisone Adverse Reaction (Verified 02/24/23 23:40) ANXIOUS, INSOMNIA Current Medications Generic Name Dose Route Start Last Admin Trade Name Freq PRN Reason Stop Dose Admin Acetaminophen 1,000 mg 11/01/23 07:49 11/04/23 13:35 Acetaminophen 500 Mg Tablet PO 1,000 mg Q6H PRN PRN Administration Pain Score 1-10 Allopurinol 100 mg 11/01/23 10:00 11/05/23 09:04 Allopurinol 100 Mg Tablet PO 100 mg DAILY CHERYL Administration Amlodipine Besylate 5 mg 11/05/23 10:00 11/05/23 09:03 Amlodipine 5 Mg Tablet PO 5 mg BID CHERYL Administration Protocol Aspirin 81 mg 11/01/23 08:00 11/05/23 09:01 Aspirin E.C. 81 Mg Tablet PO 81 mg BREAKFAST CHERYL Administration Bacitracin 1 applic 11/05/23 10:00 11/05/23 09:02 Bacitracin 15 Gm Tube TOPICAL 1 applic DAILY CHERYL Administration Protocol Calamine/Phenol 1 applic 11/01/23 10:00 11/05/23 09:02 Menthol/Lanolin/Calamine/Znox 113 Gm Tube TOPICAL 1 applic BID CHERYL Administration Protocol Clonidine 0.1 mg 11/04/23 15:45 11/05/23 06:27 Clonidine Hcl 0.1 Mg Tablet PO 0.1 mg TID CHERYL Administration Protocol Doxepin HCl 25 mg 10/31/23 23:00 11/04/23 23:03 Doxepin Hcl 25 Mg Capsule PO 25 mg QHS CHERYL Administration Enoxaparin Sodium 40 mg 11/02/23 06:00 11/05/23 06:27 Enoxaparin 40 Mg/0.4 Ml Syringe SC 40 mg DAILY@0600 CHERYL Administration Furosemide 40 mg 11/01/23 06:00 11/05/23 06:26 Furosemide 40 Mg Tablet PO 40 mg BIDLX CHERYL Administration Insulin Glargine 25 unit 11/01/23 22:00 11/04/23 23:01 Insulin Glargine-Yfgn 100 Unit/Ml Pen SC 25 unit QHS CHERYL Administration Insulin Human Lispro 5 unit 11/02/23 11:45 11/05/23 12:02 Insulin Lispro 100 Unit/Ml Insuln.Pen SC 5 units TIDAC CHERYL Administration Lactic Acid 1 applic 11/01/23 10:00 11/05/23 09:03 Ammonium Lactate 225 Gm Bottle TOPICAL 1 applic BID [facility] Administration Protocol Levothyroxine Sodium 137 mcg 11/01/23 06:00 11/05/23 06:27 Levothyroxine 137 Mcg Tablet PO 137 mcg DAILY@0600 CHERYL Administration Linagliptin 5 mg 11/01/23 10:00 11/05/23 09:04 Linagliptin 5 Mg Tablet PO 5 mg DAILY CHERYL Administration Losartan Potassium 100 mg 11/01/23 10:00 11/05/23 09:02 Losartan Potassium 100 Mg Tablet PO 100 mg DAILY CHERYL Administration Protocol Magnesium Citrate 300 ml 11/01/23 07:49 Magnesium Citrate 300 Ml PO DAILY PRN Constipation Metoprolol Succinate 12.5 mg 10/31/23 23:00 11/05/23 09:03 Metoprolol(Xl)Succ 25 Mg Tablet PO 12.5 mg BID [facility] Administration Protocol Nystatin 1 applic 11/01/23 10:00 11/05/23 09:03 Nystatin Powder 15gm Bottle TOPICAL 1 applic BID [facility] Administration Protocol Pantoprazole Sodium 40 mg 11/01/23 10:00 11/05/23 09:03 Pantoprazole Sodium 40 Mg Tablet PO 40 mg DAILY CHERYL Administration Potassium Chloride 20 meq 11/01/23 12:45 11/05/23 12:03 Potassium Chloride Oral Tablet 20 Meq PO 20 meq TIDCM CHERYL Administration Senna/Docusate Sodium 2 tablet 11/01/23 10:00 11/05/23 09:03 Senna/Docusate Sodium 1 Tablet PO 2 tablet BID CHERYL Administration Triamcinolone Acetonide 1 applic 11/03/23 10:00 11/05/23 09:02 Triamcinolone 0.1% Ointment 15 Gm Tube TOPICAL 1 applic DAILY CHERYL Administration Protocol Tuberculin PPD 0.1 ml 11/08/23 10:00 Tuberculin,Purif.Prot.Deriv. 50 Tu/Ml Vial ID 11/08/23 10:01 X1 ONE Problem List (Updated 11/03/23 @ 00:09 by Background Sofya) Stasis dermatitis of both legs (Acute) Chronic venous insufficiency (Chronic) Tinea unguium (Acute) Type 2 diabetes mellitus with diabetic polyneuropathy (Acute) Heart failure with preserved ejection fraction (Acute) Vitamin D deficiency (Acute) Hypokalemia (Acute) GERD (gastroesophageal reflux disease) (Acute) Fecal impaction of colon (Acute) Hypothyroidism (Acute) Insomnia (Acute) Gout (Acute) Hyperbilirubinemia (Acute) Transaminitis (Acute) Pneumonia (Acute) Debility (Acute) Diabetes mellitus (Chronic) Hyperlipidemia (Chronic) Vital Signs Temp Pulse Resp BP Pulse Ox O2 Del Method O2 Flow Rate 97.9 F 62 16 174/74 H 98 Room Air 2 11/04/23 23:00 11/05/23 09:03 11/04/23 15:10 11/05/23 09:03 11/04/23 15:10 11/05/23 08:21 11/04/23 06:51 Oxygen Flow Rate (L/min) 2 Oxygen Delivery Method Room Air Weight: 122.289 kg Body Mass Index (BMI) 41.0 Sodium 138 mmol/L (136-145) 11/05/23 05:26 Potassium 3.9 mmol/L (3.5-5.1) 11/05/23 05:26 Chloride 104 mmol/L (98-107) 11/05/23 05:26 Carbon Dioxide 27.0 mmol/L (21.0-32.0) 11/05/23 05:26 Anion Gap 7 (5-15) 11/05/23 05:26 BUN 21 mg/dL (7-18) H 11/05/23 05:26 Creatinine 0.96 mg/dL (0.70-1.30) 11/05/23 05:26 Est GFR (MDRD) Af Amer 97 mL/min (>60) 11/05/23 05:26 Est GFR (MDRD) Non-Af 80 mL/min (>60) 11/05/23 05:26 BUN/Creatinine Ratio 21.9 RATIO (10-20) H 11/05/23 05:26 Glucose 202 mg/dL (74-106) H 11/05/23 05:26 Assessment/Plan: 1. Pain: acetaminophen 1000 mg PO Q6H PRN pain. The patient has used 3 doses of PRN acetaminophen so far this admission for pain scores of 3-5/10. Please continue to monitor pain levels, PRN medication usage, and LFTs (AST/ALT = 28/31 U/L on 11/05/23). 2. Bowel: senna/docusate 2 tablets PO BID, magnesium citrate 300 mL PO daily PRN constipation. The patient has not required any PRN doses of magnesium citrate so far this admission, and the patient's last bowel movement was 11/04/23. Please continue to monitor for bowel movements, PRN medication usage, constipation and diarrhea. 3. Diabetes Mellitus II: insulin glargine 25 units SC QHS, insulin lispro 5 units TIDAC, linagliptin 5 mg PO daily, dulaglutide 3 mg SQ on Fridays. Please continue to monitor blood glucose levels (recent range = 159-283 mg/dL), hemoglobin A1C (A1C = 6.8% on 01/29/2019), for s/s of hypo/hyperglycemia, joint pains, s/s of heart failure, for s/s of pancreatitis, for s/s of gout, and for nausea/vomiting. As the patient has a history of heart failure and gout (both of which may be worsened by linagliptin), and is not adequately achieving appropriate goal blood sugars based on recent readings it may be reasonable to change the patient from linagliptin 5 mg daily, to either empagliflozin 25 mg daily, or dapagliflozin 10 mg daily. Also as the patient does not have an A1C that is current within 3 months please consider re-ordering an A1C level. 4. Heart failure with preserved EF/hypertension: metoprolol succinate 12.5 mg PO BID, amlodipine 5 mg PO BID, clonidine 0.1 mg PO TID, furosemide 40 mg PO BID, losartan 100 mg PO daily. Please continue to monitor for s/s of heart failure exacerbation such as shortness of breath, swelling and weight gain, blood pressures (recent range = 143-228/73-98 mmHg), heart rates (recent range = 58-68 beats/min), for fatigue, for dizziness, dermatitis, abdominal pain, drowsiness, renal function (serum creatinine = 0.96 mg/dL with creatinine clearance 61 mL/min on 11/05/23), sodium levels (Na = 138 mmol/L on 11/05/23), potassium levels (K = 3.9 mmol/L on 11/05/23), calcium levels (Ca = 8.8 mg/dL on 11/05/23), and for s/s of dehydration. 5. Hypothyroidism: levothyroxine 137 mcg PO daily. Please continue to monitor for s/s of hypo/hyperthyroidism, TSH levels (TSH = 6.11 uIU/mL on 08/08/23) and T4 levels (no recently documented T4 level). Please consider ordering a T4 level to assess repletion status. 6. DVT prophylaxis: enoxaparin 40 mg SC daily. Please continue to monitor for s/s of a DVT such as pain/erythema/swelling, and for s/s of bleeding/excessive bruising, hemoglobin levels (Hgb = 12.4 g/dL on 11/05/23), platelet count (Plt = 378 K/mm3 on 11/05/23), and renal function (serum creatinine = 0.96 mg/dL with creatinine clearance 61 mL/min on 11/05/23). 7. CV prophylaxis: aspirin 81 mg PO daily. Please continue to monitor for chest pain or other s/s of CV disease, platelet count (Plt = 378 K/mm3 on 11/05/23), and for GI distress with aspirin administration. If GI distress occurs with aspirin administration please consider administering aspirin with food. 8. Gout: allopurinol 100 mg PO daily. Please continue to monitor for gout flares including painful swollen joints, uric acid levels (UA = 7.7 mg/dL on 08/08/23), renal function (serum creatinine = 0.96 mg/dL with creatinine clearance 61 mL/min on 11/05/23), and for rashes. 9. GERD: pantoprazole 40 mg PO daily. Please continue to monitor for s/s of GERD, for diarrhea that could indicate clostridium difficile infection, and for s/s of bone resorption such as fractures. 10. Hypokalemia: potassium chloride 20 mEq PO three times daily with meals. Please continue to monitor potassium levels (K = 3.9 mmol/L on 11/05/23) and for GI distress with potassium chloride administration. 11. Skin irritation/tinea corporis/skin infection: ammonium lactate 1 application topically BID, bacitracin ointment 1 application topically daily, nystatin powder 1 application topically BID, calmoseptine 1 application topically BID, triamcinolone 0.1% topically daily. Please continue to monitor for resolution of skin infection, tinea corporis, and for skin irritation/integrity. Assessment/Plan for indications treated with psychotropic medications: 1. Insomnia: doxepin 25 mg PO QHS. Please see provider notes regarding stable chronic long-term use GDR not recommended. Please continue to monitor for s/s of anticholinergic effects such as dry mouth, dry eyes, urinary retention, constipation and delirium, for s/s of orthostasis, for drowsiness and sedation. Medical chart and medication regimen reviewed. The following medication irregularities or issues were identified: 1. Diabetes Mellitus II: insulin glargine 25 units SC QHS, insulin lispro 5 units TIDAC, linagliptin 5 mg PO daily, dulaglutide 3 mg SQ on Fridays. . As the patient has a history of heart failure and gout (both of which may be worsened by linagliptin), and is not adequately achieving appropriate goal blood sugars based on recent readings it may be reasonable to change the patient from linagliptin 5 mg daily, to either empagliflozin 25 mg daily, or dapagliflozin 10 mg daily. Also as the patient does not have an A1C that is current within 3 months please consider re-ordering an A1C level. 2. Hypothyroidism: levothyroxine 137 mcg PO daily. Please consider ordering a T4 level to assess repletion status. Date Date of Note:: 11/05/23
--- NOTE | 2023-11-05 14:09 | NS ---
MST score = 4 d/t wound and unknown UBW
[2023-11-05 14:56] VITALS: BP 147/64; PULSE 70; RESP 20; TEMP 36.2; O2SAT 98
--- NOTE | 2023-11-05 15:05 | NURSING ---
Offered Covid vaccine, patient states he thinks he had one recently. Reached out to Dr. Wheeler's office to see about vaccine records, unable to speak with staff of [facility].
[2023-11-05 17:46] LABS: Bedside Glucose 202 mg/dL (74-106)
[2023-11-05 20:14] VITALS: BP 148/65; PULSE 63
[2023-11-05 21:48] LABS: Bedside Glucose 198 mg/dL (74-106)
[2023-11-05] MEDS: Insulin Glargine-YFGN 100 UNIT/ML Pen 25 UNIT SC (21:49)
[2023-11-05 21:51] VITALS: BP 148/65; PULSE 63
[2023-11-05] MEDS: Doxepin Hcl 25 MG Capsule PO (21:51)
[2023-11-05] MEDS: 0.9% Saline Lock 10 ML Syringe IV (21:54)
[2023-11-06] MEDS: Levothyroxine 137 MCG Tablet PO (05:49)
[2023-11-06] MEDS: Furosemide 40 MG Tablet PO ×2 (05:49→14:00)
[2023-11-06] MEDS: Enoxaparin 40 MG/0.4 ML Syringe SC (05:49)
[2023-11-06] MEDS: cloNIDine HCl 0.1 MG Tablet 0.100000000000000006 MG PO ×3 (05:49→21:13)
[2023-11-06 06:00] VITALS: BMI 41.0
[2023-11-06 06:18] LABS: Bedside Glucose 172 mg/dL (74-106)
[2023-11-06 08:09] VITALS: BP 132/65; PULSE 59
[2023-11-06] MEDS: Insulin Lispro 100 UNIT/ML INSULN.PEN SC ×3 (08:09→17:19)
[2023-11-06] MEDS: Potassium Chloride Oral Tablet 20 MEQ PO ×3 (08:09→17:19)
[2023-11-06] MEDS: Metoprolol(XL)Succ 25 MG Tablet 12.5 MG PO ×2 (08:09→21:13)
[2023-11-06] MEDS: LINAGLIPTIN 5 MG TABLET PO (08:09)
[2023-11-06] MEDS: Senna/Docusate Sodium 1 Tablet 2 TABLET PO ×2 (08:09→21:13)
[2023-11-06] MEDS: amLODIPine 5 MG Tablet PO ×2 (08:10→21:13)
[2023-11-06] MEDS: Losartan Potassium 100 MG Tablet PO (08:10)
[2023-11-06] MEDS: Aspirin E.C. 81 MG Tablet PO (08:10)
[2023-11-06] MEDS: Triamcinolone 0.1% Ointment 15 gm tube 1 APPLIC TOPICAL (08:10)
[2023-11-06] MEDS: Pantoprazole Sodium 40 MG Tablet PO (08:10)
[2023-11-06] MEDS: Nystatin Powder 15gm Bottle 1 APPLIC TOPICAL ×2 (08:10→21:12)
[2023-11-06] MEDS: Allopurinol 100 MG Tablet PO (08:10)
[2023-11-06] MEDS: BACITRACIN 15 GM Tube 1 APPLIC TOPICAL (08:11)
[2023-11-06] MEDS: Ammonium Lactate 225 gm Bottle 1 APPLIC TOPICAL ×2 (08:12→21:11)
[2023-11-06] MEDS: Menthol/Lanolin/Calamine/Znox 113 GM Tube 1 APPLIC TOPICAL ×2 (08:12→21:12)
[2023-11-06 11:32] LABS: Bedside Glucose 168 mg/dL (74-106)
[2023-11-06] MEDS: 0.9% Saline Lock 10 ML Syringe IV (12:16)
[2023-11-06 14:13] VITALS: BP 144/68; PULSE 71
[2023-11-06 15:20] VITALS: BP 137/61; PULSE 64; RESP 16; TEMP 36.2; O2SAT 95
[2023-11-06 17:19] LABS: Bedside Glucose 204 mg/dL (74-106)
--- NOTE | 2023-11-06 18:47 | NURSING ---
Pt c/o of gas and which is making it difficult for him to breath which is making him anxious. N.O. for Xanax 02.5mg PRN q6hr and Simethicone Q6hr PRN for gas. Orders Read back.
[2023-11-06 21:13] VITALS: BP 152/71; PULSE 63
[2023-11-06] MEDS: Doxepin Hcl 25 MG Capsule PO (21:13)
[2023-11-06] MEDS: Insulin Glargine-YFGN 100 UNIT/ML Pen 25 UNIT SC (21:17)
[2023-11-06 21:33] LABS: Bedside Glucose 234 mg/dL (74-106)
[2023-11-07] VITALS (7 sets, daily range): BP systolic 127–151; BP diastolic 60–76; PULSE 60–84; RESP 18; TEMP 36.2; O2SAT 94–99; BMI 40.9
[2023-11-07] MEDS: ALPRAZolam 0.25 MG Tablet PO ×2 (01:23→07:46)
[2023-11-07] MEDS: Acetaminophen 500 MG Tablet 1000 MG PO ×2 (01:24→21:41)
[2023-11-07] MEDS: 0.9% Saline Lock 10 ML Syringe IV ×3 (01:25→21:34)
[2023-11-07] MEDS: cloNIDine HCl 0.1 MG Tablet 0.100000000000000006 MG PO ×3 (05:42→21:36)
[2023-11-07] MEDS: Levothyroxine 137 MCG Tablet PO (05:42)
[2023-11-07] MEDS: Furosemide 40 MG Tablet PO ×2 (05:42→13:21)
[2023-11-07] MEDS: Enoxaparin 40 MG/0.4 ML Syringe SC (05:42)
[2023-11-07 06:40] LABS: Bedside Glucose 162 mg/dL (74-106)
[2023-11-07] MEDS: LINAGLIPTIN 5 MG TABLET PO (07:46)
[2023-11-07] MEDS: Allopurinol 100 MG Tablet PO (07:46)
[2023-11-07] MEDS: Potassium Chloride Oral Tablet 20 MEQ PO ×3 (07:46→17:26)
[2023-11-07] MEDS: Senna/Docusate Sodium 1 Tablet 2 TABLET PO ×2 (07:46→21:37)
[2023-11-07] MEDS: amLODIPine 5 MG Tablet PO ×2 (07:46→21:37)
[2023-11-07] MEDS: Aspirin E.C. 81 MG Tablet PO (07:46)
[2023-11-07] MEDS: Losartan Potassium 100 MG Tablet PO (07:46)
[2023-11-07] MEDS: Pantoprazole Sodium 40 MG Tablet PO (07:46)
[2023-11-07] MEDS: Metoprolol(XL)Succ 25 MG Tablet 12.5 MG PO ×2 (07:46→21:37)
[2023-11-07] MEDS: Insulin Lispro 100 UNIT/ML INSULN.PEN SC ×3 (07:55→17:26)
[2023-11-07] MEDS: Menthol/Lanolin/Calamine/Znox 113 GM Tube 1 APPLIC TOPICAL ×2 (08:03→21:34)
[2023-11-07] MEDS: Nystatin Powder 15gm Bottle 1 APPLIC TOPICAL ×2 (08:03→21:58)
--- NOTE | 2023-11-07 08:43 | NURSING ---
Clocksmith Note; MDS for 11/07/23 Complete
[2023-11-07] MEDS: BACITRACIN 15 GM Tube 1 APPLIC TOPICAL (10:02)
[2023-11-07] MEDS: Ammonium Lactate 225 gm Bottle 1 APPLIC TOPICAL ×2 (10:02→21:37)
[2023-11-07] MEDS: Triamcinolone 0.1% Ointment 15 gm tube 1 APPLIC TOPICAL (10:02)
[2023-11-07 11:31] LABS: Bedside Glucose 249 mg/dL (74-106)
--- NOTE | 2023-11-07 14:50 | CASEMGMT ---
Social Work IDT met with patient, , dtr and two granddaughters for care plan meeting. Discussed patient's progress in PT/OT/SN. Educated to [facility] insurance with NRD 11/13, EDC 11/16. Broached discussion about pt needing x2 assist and not having that at home. IDT recommending SNF until able to return home more independently. Explained financial liability. Pt only agreed to short-term SNF stay. still disputing pt will qualify for Medicaid, but again has not applied before. SW suggested to apply regardless to get official determination. Pt and agreed. and pt stated dtr, Marium, can answer those questions betweens 's vision impairment and pt's hearing impairment. Marium agreeable. SW provided dtr will list of basic questions Medicaid application asks to prepare for screening from [facility]. SW inquired about area for SNFs. would like pt to be in [facility]. SW educated that [facility] does not accept MCDP and offered to refer to the other 3 facilities. /family agree. SW still provided [place] and [facility] SNFs with quality and resource data via CarePort Guide. JENNIFER sent referrals to [facility], [facility] and [facility] via CarePort. Will await outcomes. SW sent referral via email to [facility]. JENNIFER will continue to follow for DC planning. Brittany Kim, EDGAR COVINGTONW
--- NOTE | 2023-11-07 15:19 | CHAPLAIN ---
Type of Pastoral Visit ___ Initial Visit ___ Follow-up Visit ___ On-call Visit ___ General Patient Visit ___ Spiritual Assessment ___ Family Conference ___ Bereavement ___ Rapid Response ___ Code Blue ___ Other (describe below) Pastoral Care Referral From ___ Patient ___ Family ___ Nurse ___ Physician ___ Field Sales Agent ___ Correctional Officer Sergeant ___ Other (describe below) Sacrament/Intervention ___ Active listening ___ Anointing ___ Baptist ___ Bereavement ___ Communion ___ Scarlett exploration ___ ___ Life review ___ Prayer ___ Reconciliation ___ Sacrament of Sick ___ Supportive presence ___ Wedding ___ Other (describe below) Pastoral Comments patient had several family members in the room and talking actively so the patient was not visited today
[2023-11-07 17:36] LABS: Bedside Glucose 252 mg/dL (74-106)
[2023-11-07 21:20] LABS: Bedside Glucose 290 mg/dL (74-106)
[2023-11-07] MEDS: Insulin Glargine-YFGN 100 UNIT/ML Pen 25 UNIT SC (21:36)
[2023-11-07] MEDS: Doxepin Hcl 25 MG Capsule PO (21:37)
[2023-11-08 05:51] LABS: Absolute Lymphocyte Count 2.61 X10^3/uL (0.83-4.51); Absolute Neutrophil Count 5.4 X10^3/uL (2.0-7.7); Basophil# 0.06 X10^3/uL; Basophil% 0.7 % (0-1); Eosinophil# 0.18 X10^3/uL; Hematocrit 39.5 % (40-54); Lymphocyte # 2.61 X10^3/ul (0.83-4.51); Lymphocyte % 28.5 % (19-41); Mean Corp Hgb Conc 32.9 g/dL (32-36); Mean Corpuscular Hgb 28.8 pg (27.0-32.0); Mean Corpuscular Volume 87.6 fL (80-94); Mean Platelet Vol. 9.7 fl (6.2-12.0); Monocyte# 0.85 X10^3/uL; Monocyte% 9.3 % (0-10); NRBC Flagged by Analyzer 0 % (0-5); Neutrophil # 5.41 X10^3/uL (2.7-7.7); Neutrophil % 59.1 % (47-70); Platelet Count 400 K/mm3 (150-450); RBC Distribution Width CV 15.5 % (11.6-14.6); Red Blood Count 4.51 M/mm3 (4.6-6.2); White Blood Count 9.2 K/mm3 (4.4-11.0)
[2023-11-08] MEDS: Enoxaparin 40 MG/0.4 ML Syringe SC (06:07)
[2023-11-08] MEDS: Furosemide 40 MG Tablet PO ×2 (06:07→15:12)
[2023-11-08] MEDS: Levothyroxine 137 MCG Tablet PO (06:07)
[2023-11-08] MEDS: cloNIDine HCl 0.1 MG Tablet 0.100000000000000006 MG PO ×3 (06:07→22:16)
[2023-11-08 06:15] VITALS: PULSE 66; RESP 16; O2SAT 96
[2023-11-08 06:21] VITALS: BP 139/61; PULSE 66
[2023-11-08 06:21] LABS: Anion Gap 7 (5-15); BUN 21 mg/dL (7-18); BUN/Creat Ratio 20.8 RATIO (10-20); Calcium,Total 8.6 mg/dL (8.5-10.1); Chloride 105 mmol/L (98-107); Creatinine, Serum 1.01 mg/dL (0.70-1.30); EST Glomerular Filtration Rate 76 mL/min (>60); Est Glom Filt Rate - Afr Amer 92 mL/min (>60); Estimated Creatinine Clearance 58.32 ml/min; Glucose 206 mg/dL (74-106); Potassium 3.9 mmol/L (3.5-5.1); Sodium Level 139 mmol/L (136-145)
[2023-11-08 06:43] LABS: Bedside Glucose 190 mg/dL (74-106)
[2023-11-08 07:59] VITALS: O2SAT 93
[2023-11-08] MEDS: Aspirin E.C. 81 MG Tablet PO ×2 (08:12→08:16)
[2023-11-08] MEDS: Insulin Lispro 100 UNIT/ML INSULN.PEN SC ×3 (08:12→18:03)
[2023-11-08] MEDS: Potassium Chloride Oral Tablet 20 MEQ PO ×3 (08:12→18:04)
[2023-11-08] MEDS: Triamcinolone 0.1% Ointment 15 gm tube 1 APPLIC TOPICAL (08:13)
[2023-11-08] MEDS: Losartan Potassium 100 MG Tablet PO (08:13)
[2023-11-08] MEDS: BACITRACIN 15 GM Tube 1 APPLIC TOPICAL (08:13)
[2023-11-08] MEDS: Senna/Docusate Sodium 1 Tablet 2 TABLET PO ×2 (08:14→22:16)
[2023-11-08] MEDS: amLODIPine 5 MG Tablet PO ×2 (08:14→22:16)
[2023-11-08] MEDS: Pantoprazole Sodium 40 MG Tablet PO (08:14)
[2023-11-08] MEDS: LINAGLIPTIN 5 MG TABLET PO (08:16)
[2023-11-08] MEDS: Allopurinol 100 MG Tablet PO (08:16)
[2023-11-08 08:17] VITALS: BP 148/81; PULSE 67
[2023-11-08] MEDS: Metoprolol(XL)Succ 25 MG Tablet 12.5 MG PO ×2 (08:17→22:15)
[2023-11-08] MEDS: Nystatin Powder 15gm Bottle 1 APPLIC TOPICAL ×2 (08:21→22:21)
[2023-11-08] MEDS: Menthol/Lanolin/Calamine/Znox 113 GM Tube 1 APPLIC TOPICAL ×2 (08:21→22:22)
[2023-11-08] MEDS: Ammonium Lactate 225 gm Bottle 1 APPLIC TOPICAL (08:21)
[2023-11-08] MEDS: Tuberculin,Purif.prot.deriv. 50 TU/ML Vial 0.100000000000000006 ML ID (10:37)
[2023-11-08 11:45] LABS: Bedside Glucose 256 mg/dL (74-106)
[2023-11-08 14:50] VITALS: BP 139/59; PULSE 67; RESP 18; TEMP 36.2; O2SAT 93
--- NOTE | 2023-11-08 14:56 | CHAPLAIN ---
Type of Pastoral Visit _x__ Initial Visit ___ Follow-up Visit ___ On-call Visit ___ General Patient Visit ___ Spiritual Assessment ___ Family Conference ___ Bereavement ___ Rapid Response ___ Code Blue ___ Other (describe below) Pastoral Care Referral From _x__ Patient ___ Family ___ Nurse ___ Physician ___ Power Brake Operator ___ Local Company Intermodal Truck Driver ___ Other (describe below) Sacrament/Intervention _x__ Active listening ___ Anointing ___ Baptist ___ Bereavement ___ Communion ___ Scarlett exploration ___ _x__ Life review _x__ Prayer ___ Reconciliation ___ Sacrament of Sick _x__ Supportive presence ___ Wedding ___ Other (describe below) Pastoral Comments patient and this head resident remember each other from previous admissions several years ago; pt gives update on his health and the reasons for being in TCU; pt presents with a negative attitude about his health, his treatment in hospitals (elsewhere mostly but also here), and his family; pt states you probably think I'm crazy, but I'm not ; pt is tearful many times as he talks about his situation; pt reveals that his 's health is poor as well; pt does not seek any particular actions but does ask for support and prayers; pt is offered prayer and it is accepted
[2023-11-08 17:25] LABS: Bedside Glucose 241 mg/dL (74-106)
[2023-11-08] MEDS: 0.9% Saline Lock 10 ML Syringe IV (18:06)
[2023-11-08] MEDS: Acetaminophen 500 MG Tablet 1000 MG PO (22:12)
[2023-11-08 22:15] VITALS: BP 153/68; PULSE 62
[2023-11-08] MEDS: Insulin Glargine-YFGN 100 UNIT/ML Pen 25 UNIT SC (22:16)
[2023-11-08] MEDS: Doxepin Hcl 25 MG Capsule PO (22:16)
[2023-11-08 22:41] LABS: Bedside Glucose 290 mg/dL (74-106)
[2023-11-09] MEDS: SimETHICONE 80 MG Chewable Tablet PO (02:13)
--- NOTE | 2023-11-09 02:16 | NURSING ---
Patient c/o abdominal pressure. BS x 4 quadrants. Simethicone administered. Will continue to monitor.
[2023-11-09 06:00] VITALS: BMI 40.8
[2023-11-09] MEDS: Enoxaparin 40 MG/0.4 ML Syringe SC (06:24)
[2023-11-09] MEDS: Furosemide 40 MG Tablet PO ×2 (06:24→14:32)
[2023-11-09] MEDS: Levothyroxine 137 MCG Tablet PO (06:24)
[2023-11-09] MEDS: cloNIDine HCl 0.1 MG Tablet 0.100000000000000006 MG PO ×3 (06:24→22:44)
[2023-11-09 06:29] VITALS: BP 138/66; PULSE 60
[2023-11-09 07:01] LABS: Bedside Glucose 184 mg/dL (74-106)
--- NOTE | 2023-11-09 07:27 | MDS.RN ---
Information for the mds was obtained from review of the clinical record, interview of resident, staff, and direct observation of resident's care.
[2023-11-09] MEDS: Insulin Lispro 100 UNIT/ML INSULN.PEN SC ×3 (09:07→17:20)
[2023-11-09] MEDS: Potassium Chloride Oral Tablet 20 MEQ PO ×3 (09:08→17:20)
[2023-11-09] MEDS: BACITRACIN 15 GM Tube 1 APPLIC TOPICAL (09:09)
[2023-11-09] MEDS: Menthol/Lanolin/Calamine/Znox 113 GM Tube 1 APPLIC TOPICAL ×2 (09:10→22:40)
[2023-11-09] MEDS: Losartan Potassium 100 MG Tablet PO (09:10)
[2023-11-09] MEDS: Triamcinolone 0.1% Ointment 15 gm tube 1 APPLIC TOPICAL (09:11)
[2023-11-09] MEDS: Nystatin Powder 15gm Bottle 1 APPLIC TOPICAL ×2 (09:11→22:42)
[2023-11-09] MEDS: Ammonium Lactate 225 gm Bottle 1 APPLIC TOPICAL ×2 (09:11→22:41)
[2023-11-09] MEDS: amLODIPine 5 MG Tablet PO ×2 (09:12→22:45)
[2023-11-09 09:13] VITALS: BP 156/66; PULSE 63
[2023-11-09] MEDS: Pantoprazole Sodium 40 MG Tablet PO (09:13)
[2023-11-09] MEDS: Senna/Docusate Sodium 1 Tablet 2 TABLET PO ×2 (09:13→22:44)
[2023-11-09] MEDS: Metoprolol(XL)Succ 25 MG Tablet 12.5 MG PO ×2 (09:13→22:44)
[2023-11-09] MEDS: LINAGLIPTIN 5 MG TABLET PO (09:14)
[2023-11-09] MEDS: Allopurinol 100 MG Tablet PO (09:14)
[2023-11-09 11:25] LABS: Bedside Glucose 223 mg/dL (74-106)
[2023-11-09 14:58] VITALS: BP 158/75; PULSE 64; RESP 16; TEMP 36.1; O2SAT 98
[2023-11-09 16:59] LABS: Bedside Glucose 271 mg/dL (74-106)
[2023-11-09] MEDS: DULAGLUTIDE 3 MG/0.5 ML PEN.INJCTR SQ (17:23)
[2023-11-09 20:29] VITALS: PULSE 73; RESP 18; O2SAT 97
[2023-11-09] MEDS: Doxepin Hcl 25 MG Capsule PO (22:43)
[2023-11-09 22:44] VITALS: BP 155/71; PULSE 62
[2023-11-09] MEDS: Insulin Glargine-YFGN 100 UNIT/ML Pen 25 UNIT SC (22:49)
[2023-11-09 23:13] LABS: Bedside Glucose 264 mg/dL (74-106)
[2023-11-10 06:00] VITALS: BP 149/71; PULSE 65; RESP 16; BMI 40.8
[2023-11-10] MEDS: cloNIDine HCl 0.1 MG Tablet 0.100000000000000006 MG PO ×3 (06:47→22:51)
[2023-11-10] MEDS: Enoxaparin 40 MG/0.4 ML Syringe SC (06:47)
[2023-11-10] MEDS: Furosemide 40 MG Tablet PO ×2 (06:47→14:02)
[2023-11-10] MEDS: Levothyroxine 137 MCG Tablet PO (06:48)
[2023-11-10 06:49] VITALS: O2SAT 95
[2023-11-10 07:08] LABS: Bedside Glucose 184 mg/dL (74-106)
[2023-11-10] MEDS: Insulin Lispro 100 UNIT/ML INSULN.PEN SC ×3 (08:05→17:45)
[2023-11-10 08:06] VITALS: PULSE 65
[2023-11-10] MEDS: Potassium Chloride Oral Tablet 20 MEQ PO ×3 (08:06→17:45)
[2023-11-10] MEDS: Metoprolol(XL)Succ 25 MG Tablet 12.5 MG PO ×2 (08:06→22:52)
[2023-11-10] MEDS: Aspirin E.C. 81 MG Tablet PO (08:07)
[2023-11-10] MEDS: LINAGLIPTIN 5 MG TABLET PO (08:07)
[2023-11-10] MEDS: Losartan Potassium 100 MG Tablet PO (08:07)
[2023-11-10] MEDS: amLODIPine 5 MG Tablet PO ×2 (08:07→22:52)
[2023-11-10] MEDS: Pantoprazole Sodium 40 MG Tablet PO (08:08)
[2023-11-10] MEDS: Senna/Docusate Sodium 1 Tablet 2 TABLET PO ×2 (08:08→22:52)
[2023-11-10] MEDS: Allopurinol 100 MG Tablet PO (08:08)
[2023-11-10] MEDS: Ammonium Lactate 225 gm Bottle 1 APPLIC TOPICAL ×2 (08:11→22:53)
[2023-11-10] MEDS: BACITRACIN 15 GM Tube 1 APPLIC TOPICAL (08:12)
[2023-11-10] MEDS: Nystatin Powder 15gm Bottle 1 APPLIC TOPICAL ×2 (08:12→22:54)
[2023-11-10] MEDS: Triamcinolone 0.1% Ointment 15 gm tube 1 APPLIC TOPICAL (08:12)
[2023-11-10] MEDS: Menthol/Lanolin/Calamine/Znox 113 GM Tube 1 APPLIC TOPICAL ×2 (08:13→22:54)
[2023-11-10 10:00] VITALS: PULSE 68; RESP 16; O2SAT 96
[2023-11-10 11:25] LABS: Bedside Glucose 203 mg/dL (74-106)
[2023-11-10 15:49] VITALS: BP 137/73; PULSE 72; RESP 18; TEMP 36.3; O2SAT 96
[2023-11-10 16:31] LABS: Bedside Glucose 184 mg/dL (74-106)
[2023-11-10 21:41] LABS: Bedside Glucose 211 mg/dL (74-106)
[2023-11-10] MEDS: Acetaminophen 500 MG Tablet 1000 MG PO (22:50)
[2023-11-10] MEDS: Insulin Glargine-YFGN 100 UNIT/ML Pen 25 UNIT SC (22:51)
[2023-11-10 22:52] VITALS: BP 152/64; PULSE 70
[2023-11-10] MEDS: Doxepin Hcl 25 MG Capsule PO (22:52)
[2023-11-10] MEDS: ALPRAZolam 0.25 MG Tablet PO (23:04)
[2023-11-11] MEDS: cloNIDine HCl 0.1 MG Tablet 0.100000000000000006 MG PO ×3 (06:33→23:03)
[2023-11-11] MEDS: Levothyroxine 137 MCG Tablet PO (06:33)
[2023-11-11] MEDS: Enoxaparin 40 MG/0.4 ML Syringe SC (06:33)
[2023-11-11] MEDS: Furosemide 40 MG Tablet PO ×2 (06:33→14:15)
[2023-11-11 06:41] LABS: Bedside Glucose 182 mg/dL (74-106)
[2023-11-11 06:51] VITALS: BP 150/77; PULSE 94
[2023-11-11] MEDS: Potassium Chloride Oral Tablet 20 MEQ PO ×3 (08:10→17:15)
[2023-11-11] MEDS: amLODIPine 5 MG Tablet PO ×2 (08:10→23:04)
[2023-11-11] MEDS: Aspirin E.C. 81 MG Tablet PO (08:10)
[2023-11-11] MEDS: Senna/Docusate Sodium 1 Tablet 2 TABLET PO ×2 (08:11→23:05)
[2023-11-11] MEDS: Pantoprazole Sodium 40 MG Tablet PO (08:11)
[2023-11-11 08:12] VITALS: PULSE 94
[2023-11-11] MEDS: Losartan Potassium 100 MG Tablet PO (08:12)
[2023-11-11] MEDS: Metoprolol(XL)Succ 25 MG Tablet 12.5 MG PO ×2 (08:12→23:05)
[2023-11-11] MEDS: Allopurinol 100 MG Tablet PO (08:12)
[2023-11-11] MEDS: LINAGLIPTIN 5 MG TABLET PO (08:15)
[2023-11-11] MEDS: Insulin Lispro 100 UNIT/ML INSULN.PEN SC ×3 (08:15→17:15)
[2023-11-11] MEDS: Nystatin Powder 15gm Bottle 1 APPLIC TOPICAL ×2 (08:16→23:08)
[2023-11-11] MEDS: Ammonium Lactate 225 gm Bottle 1 APPLIC TOPICAL ×2 (08:16→23:08)
[2023-11-11] MEDS: Menthol/Lanolin/Calamine/Znox 113 GM Tube 1 APPLIC TOPICAL ×2 (08:17→23:41)
[2023-11-11 11:25] LABS: Bedside Glucose 211 mg/dL (74-106)
[2023-11-11 14:13] VITALS: BP 152/69; PULSE 63; RESP 16; TEMP 37; O2SAT 97
[2023-11-11 16:14] LABS: Bedside Glucose 210 mg/dL (74-106)
[2023-11-11 22:12] LABS: Bedside Glucose 276 mg/dL (74-106)
[2023-11-11 23:00] VITALS: PULSE 64; RESP 16; O2SAT 98
[2023-11-11] MEDS: Insulin Glargine-YFGN 100 UNIT/ML Pen 25 UNIT SC (23:03)
[2023-11-11 23:05] VITALS: BP 151/71; PULSE 64
[2023-11-11] MEDS: Doxepin Hcl 25 MG Capsule PO (23:05)
[2023-11-12 06:00] VITALS: BMI 40.1
[2023-11-12 06:16] LABS: Bedside Glucose 177 mg/dL (74-106)
[2023-11-12] MEDS: Enoxaparin 40 MG/0.4 ML Syringe SC (06:48)
[2023-11-12] MEDS: Levothyroxine 137 MCG Tablet PO (06:48)
[2023-11-12] MEDS: cloNIDine HCl 0.1 MG Tablet 0.100000000000000006 MG PO ×3 (06:49→20:15)
[2023-11-12] MEDS: Furosemide 40 MG Tablet PO ×2 (06:49→13:34)
[2023-11-12] MEDS: Insulin Lispro 100 UNIT/ML INSULN.PEN SC ×3 (09:01→17:47)
[2023-11-12 09:02] VITALS: BP 123/75; PULSE 64
[2023-11-12] MEDS: Metoprolol(XL)Succ 25 MG Tablet 12.5 MG PO ×2 (09:02→20:13)
[2023-11-12] MEDS: Potassium Chloride Oral Tablet 20 MEQ PO ×3 (09:02→17:47)
[2023-11-12] MEDS: amLODIPine 5 MG Tablet PO ×2 (09:02→20:15)
[2023-11-12] MEDS: Aspirin E.C. 81 MG Tablet PO (09:02)
[2023-11-12] MEDS: Allopurinol 100 MG Tablet PO (09:02)
[2023-11-12] MEDS: Pantoprazole Sodium 40 MG Tablet PO (09:03)
[2023-11-12] MEDS: LINAGLIPTIN 5 MG TABLET PO (09:03)
[2023-11-12] MEDS: Losartan Potassium 100 MG Tablet PO (09:03)
[2023-11-12] MEDS: BACITRACIN 15 GM Tube 1 APPLIC TOPICAL (09:05)
[2023-11-12] MEDS: Menthol/Lanolin/Calamine/Znox 113 GM Tube 1 APPLIC TOPICAL ×2 (09:05→20:15)
[2023-11-12] MEDS: Triamcinolone 0.1% Ointment 15 gm tube 1 APPLIC TOPICAL (09:05)
[2023-11-12] MEDS: Nystatin Powder 15gm Bottle 1 APPLIC TOPICAL ×2 (09:06→20:16)
[2023-11-12] MEDS: Ammonium Lactate 225 gm Bottle 1 APPLIC TOPICAL ×2 (09:06→20:16)
[2023-11-12 10:00] VITALS: PULSE 64; RESP 16; O2SAT 98
[2023-11-12 11:14] LABS: Bedside Glucose 203 mg/dL (74-106)
[2023-11-12 15:16] VITALS: O2SAT 94
[2023-11-12 15:25] VITALS: BP 148/85; PULSE 72; RESP 18; TEMP 36.2; O2SAT 96
[2023-11-12 16:55] LABS: Bedside Glucose 203 mg/dL (74-106)
[2023-11-12 20:13] VITALS: BP 140/85; PULSE 75
[2023-11-12] MEDS: Doxepin Hcl 25 MG Capsule PO (20:13)
[2023-11-12] MEDS: Acetaminophen 500 MG Tablet 1000 MG PO (20:14)
[2023-11-12] MEDS: Senna/Docusate Sodium 1 Tablet 2 TABLET PO (20:14)
[2023-11-12] MEDS: Insulin Glargine-YFGN 100 UNIT/ML Pen 25 UNIT SC (21:13)
[2023-11-12 21:19] LABS: Bedside Glucose 165 mg/dL (74-106)
[2023-11-13 06:00] VITALS: BMI 40.6
[2023-11-13 06:12] VITALS: BP 147/70; PULSE 61
[2023-11-13] MEDS: Enoxaparin 40 MG/0.4 ML Syringe SC (06:13)
[2023-11-13] MEDS: Furosemide 40 MG Tablet PO ×2 (06:14→15:48)
[2023-11-13] MEDS: Levothyroxine 137 MCG Tablet PO (06:14)
[2023-11-13] MEDS: cloNIDine HCl 0.1 MG Tablet 0.100000000000000006 MG PO ×3 (06:14→22:08)
[2023-11-13 06:58] LABS: Bedside Glucose 158 mg/dL (74-106)
[2023-11-13] MEDS: Aspirin E.C. 81 MG Tablet PO (08:38)
[2023-11-13] MEDS: Potassium Chloride Oral Tablet 20 MEQ PO ×3 (08:38→18:06)
[2023-11-13] MEDS: Insulin Lispro 100 UNIT/ML INSULN.PEN SC ×3 (08:38→18:05)
[2023-11-13] MEDS: Pantoprazole Sodium 40 MG Tablet PO (08:39)
[2023-11-13] MEDS: Senna/Docusate Sodium 1 Tablet 2 TABLET PO ×2 (08:39→22:07)
[2023-11-13] MEDS: Losartan Potassium 100 MG Tablet PO (08:39)
[2023-11-13] MEDS: amLODIPine 5 MG Tablet PO ×2 (08:39→22:07)
[2023-11-13 08:40] VITALS: BP 117/63; PULSE 72
[2023-11-13] MEDS: Allopurinol 100 MG Tablet PO (08:40)
[2023-11-13] MEDS: LINAGLIPTIN 5 MG TABLET PO (08:40)
[2023-11-13] MEDS: Metoprolol(XL)Succ 25 MG Tablet 12.5 MG PO ×2 (08:40→22:08)
[2023-11-13 11:59] LABS: Bedside Glucose 156 mg/dL (74-106)
[2023-11-13] MEDS: Nystatin Powder 15gm Bottle 1 APPLIC TOPICAL ×2 (12:13→22:11)
[2023-11-13] MEDS: BACITRACIN 15 GM Tube 1 APPLIC TOPICAL (15:46)
[2023-11-13] MEDS: Ammonium Lactate 225 gm Bottle 1 APPLIC TOPICAL ×2 (15:47→22:12)
[2023-11-13] MEDS: Menthol/Lanolin/Calamine/Znox 113 GM Tube 1 APPLIC TOPICAL ×2 (15:47→22:12)
[2023-11-13] MEDS: Triamcinolone 0.1% Ointment 15 gm tube 1 APPLIC TOPICAL (15:48)
[2023-11-13 16:00] VITALS: BP 147/62; PULSE 67; RESP 16; TEMP 36.1
[2023-11-13 16:10] VITALS: BMI 40.6
--- NOTE | 2023-11-13 16:35 | CASEMGMT ---
Addendum entered by Brittany Kim 11/14/23 09:30: SW received update from [facility] that they do not have beds availble. [facility] has not been able to contact dtr to complete application. SW will continue to focus on DC plans. Original Note: Social Work NOMNC issued by insurance with last covered day of 11/15 and dc 11/16. SW met with pt and introduced self and role of SW. SW updated on discharge date and pt strongly feels he will be able to return home on Sunday. SW spoke with pt regarding pt's recent deterioration in vision and her inability to care for pt. Pt does not feel he will need SNF and that he can return home with in spite of her limitations. SW inquired about assistance from his dgt and pt does not feels his dgt will be helpful. Phone call to pt's and VM left to discuss discharge plan and discharge date. Follow up email to [facility] to check on status of Medicaid application. [facility] has been unable to get in touch with pt's family. SW to follow up for dc planning. Discharge Date: 11/16. Discharge disposition: undetermined. Pt wishes to return home with although staff does not feel like this is a safe situation. ANIL Devries
[2023-11-13 16:50] LABS: Bedside Glucose 155 mg/dL (74-106)
[2023-11-13] MEDS: Doxepin Hcl 25 MG Capsule PO (22:07)
[2023-11-13 22:08] VITALS: BP 128/77; PULSE 65
[2023-11-13] MEDS: Insulin Glargine-YFGN 100 UNIT/ML Pen 25 UNIT SC (22:08)
[2023-11-13 22:18] LABS: Bedside Glucose 160 mg/dL (74-106)
[2023-11-14] MEDS: Furosemide 40 MG Tablet PO ×2 (06:02→14:14)
[2023-11-14] MEDS: Levothyroxine 137 MCG Tablet PO (06:02)
[2023-11-14] MEDS: Enoxaparin 40 MG/0.4 ML Syringe SC (06:03)
[2023-11-14] MEDS: cloNIDine HCl 0.1 MG Tablet 0.100000000000000006 MG PO ×3 (06:03→22:19)
[2023-11-14 06:46] LABS: Bedside Glucose 180 mg/dL (74-106)
[2023-11-14] MEDS: Potassium Chloride Oral Tablet 20 MEQ PO ×3 (08:36→17:33)
[2023-11-14] MEDS: Insulin Lispro 100 UNIT/ML INSULN.PEN SC ×3 (08:36→17:32)
[2023-11-14 08:37] VITALS: BP 118/58; PULSE 72
[2023-11-14] MEDS: Metoprolol(XL)Succ 25 MG Tablet 12.5 MG PO ×2 (08:37→22:20)
[2023-11-14] MEDS: Losartan Potassium 100 MG Tablet PO (08:37)
[2023-11-14] MEDS: amLODIPine 5 MG Tablet PO ×2 (08:37→22:20)
[2023-11-14] MEDS: LINAGLIPTIN 5 MG TABLET PO (08:37)
[2023-11-14] MEDS: Aspirin E.C. 81 MG Tablet PO (08:37)
[2023-11-14] MEDS: Senna/Docusate Sodium 1 Tablet 2 TABLET PO (08:37)
[2023-11-14] MEDS: Pantoprazole Sodium 40 MG Tablet PO (08:38)
[2023-11-14] MEDS: Nystatin Powder 15gm Bottle 1 APPLIC TOPICAL ×2 (08:38→22:19)
[2023-11-14] MEDS: Allopurinol 100 MG Tablet PO (08:38)
[2023-11-14] MEDS: Ammonium Lactate 225 gm Bottle 1 APPLIC TOPICAL ×2 (08:39→22:19)
[2023-11-14] MEDS: Triamcinolone 0.1% Ointment 15 gm tube 1 APPLIC TOPICAL (08:39)
[2023-11-14] MEDS: BACITRACIN 15 GM Tube 1 APPLIC TOPICAL (08:39)
[2023-11-14 11:32] LABS: Bedside Glucose 173 mg/dL (74-106)
[2023-11-14] MEDS: Menthol/Lanolin/Calamine/Znox 113 GM Tube 1 APPLIC TOPICAL ×2 (11:57→22:18)
--- NOTE | 2023-11-14 12:59 | CASEMGMT ---
Addendum entered by Brittany Kim 11/15/23 10:20: SW scheduled w/c transport through [facility] for 1000. Addendum entered by Brittany Kim 11/14/23 14:24: First and only accepting HHC provider is [facility]. Orders sent. Original Note: Social Work SW phoned to inquire about DC plans. stated pt is coming home and they were doing just fine before . SW offered skilled HHC. agreed and has used [facility] prior. SW informed [facility] is at capacity and offered list of other providers with quality and resource data. denied as she is blind and cannot view the list, stated just fine one that takes his insurance . SW inquired about transportation. requests w/c transport. SW to coordinate HHC and transport. No DME needs. Several referrals placed via CarePort. Will continue to follow. Plan: DC 11/16 home with , C PT/OT/SN/BRADN/EDGAR EngleW
[2023-11-14 14:31] VITALS: BP 132/61; PULSE 64; RESP 18; TEMP 35.7; O2SAT 98
[2023-11-14 16:28] LABS: Bedside Glucose 200 mg/dL (74-106)
--- NOTE | 2023-11-14 17:00 | NURSING ---
Pt and family updated on positive covid pt.
[2023-11-14 20:00] VITALS: PULSE 64; RESP 18; O2SAT 96
[2023-11-14] MEDS: Insulin Glargine-YFGN 100 UNIT/ML Pen 25 UNIT SC (22:19)
[2023-11-14 22:20] VITALS: BP 145/69; PULSE 65
[2023-11-14] MEDS: Doxepin Hcl 25 MG Capsule PO (22:20)
[2023-11-14] MEDS: Acetaminophen 500 MG Tablet 1000 MG PO (22:24)
[2023-11-14 22:32] LABS: Bedside Glucose 178 mg/dL (74-106)
[2023-11-15 06:00] VITALS: BMI 40.5
[2023-11-15 06:05] LABS: Absolute Lymphocyte Count 3.02 X10^3/uL (0.83-4.51); Absolute Neutrophil Count 6.2 X10^3/uL (2.0-7.7); Basophil# 0.04 X10^3/uL; Basophil% 0.4 % (0-1); Eosinophil# 0.21 X10^3/uL; Hematocrit 40.4 % (40-54); Hemoglobin 12.6 g/dL (13.0-16.5); Lymphocyte # 3.02 X10^3/ul (0.83-4.51); Lymphocyte % 28.3 % (19-41); Mean Corp Hgb Conc 31.2 g/dL (32-36); Mean Corpuscular Hgb 27.5 pg (27.0-32.0); Mean Platelet Vol. 9.8 fl (6.2-12.0); Monocyte% 10.3 % (0-10); NRBC Flagged by Analyzer 0 % (0-5); Neutrophil # 6.23 X10^3/uL (2.7-7.7); Neutrophil % 58.4 % (47-70); Platelet Count 449 K/mm3 (150-450); RBC Distribution Width CV 14.6 % (11.6-14.6); RBC Distribution Width SD 47.2 fl (35.1-43.9); Red Blood Count 4.59 M/mm3 (4.6-6.2); White Blood Count 10.7 K/mm3 (4.4-11.0)
[2023-11-15] MEDS: Levothyroxine 137 MCG Tablet PO (06:08)
[2023-11-15] MEDS: Furosemide 40 MG Tablet PO ×2 (06:08→13:23)
[2023-11-15] MEDS: Enoxaparin 40 MG/0.4 ML Syringe SC (06:08)
[2023-11-15] MEDS: cloNIDine HCl 0.1 MG Tablet 0.100000000000000006 MG PO ×3 (06:09→22:16)
[2023-11-15 06:39] LABS: Bedside Glucose 155 mg/dL (74-106)
[2023-11-15 07:00] LABS: Anion Gap 6 (5-15); BUN 20 mg/dL (7-18); BUN/Creat Ratio 17.7 RATIO (10-20); Calcium,Total 8.9 mg/dL (8.5-10.1); Chloride 104 mmol/L (98-107); Creatinine, Serum 1.13 mg/dL (0.70-1.30); EST Glomerular Filtration Rate 67 mL/min (>60); Est Glom Filt Rate - Afr Amer 81 mL/min (>60); Estimated Creatinine Clearance 52.12 ml/min; Glucose 159 mg/dL (74-106); Potassium 3.4 mmol/L (3.5-5.1); Sodium Level 137 mmol/L (136-145)
[2023-11-15] MEDS: Potassium Chloride Oral Tablet 20 MEQ PO ×3 (08:51→16:41)
[2023-11-15] MEDS: Aspirin E.C. 81 MG Tablet PO (08:52)
[2023-11-15] MEDS: Triamcinolone 0.1% Ointment 15 gm tube 1 APPLIC TOPICAL (08:52)
[2023-11-15] MEDS: BACITRACIN 15 GM Tube 1 APPLIC TOPICAL (08:52)
[2023-11-15] MEDS: Losartan Potassium 100 MG Tablet PO (08:55)
[2023-11-15] MEDS: Nystatin Powder 15gm Bottle 1 APPLIC TOPICAL ×2 (08:56→22:18)
[2023-11-15] MEDS: amLODIPine 5 MG Tablet PO ×2 (08:57→22:17)
[2023-11-15] MEDS: Menthol/Lanolin/Calamine/Znox 113 GM Tube 1 APPLIC TOPICAL ×2 (08:58→22:18)
[2023-11-15] MEDS: Ammonium Lactate 225 gm Bottle 1 APPLIC TOPICAL ×2 (08:58→22:18)
[2023-11-15 08:59] VITALS: BP 120/59; PULSE 81
[2023-11-15] MEDS: Metoprolol(XL)Succ 25 MG Tablet 12.5 MG PO ×2 (08:59→22:17)
[2023-11-15] MEDS: Insulin Lispro 100 UNIT/ML INSULN.PEN SC ×3 (08:59→16:40)
[2023-11-15] MEDS: Pantoprazole Sodium 40 MG Tablet PO (08:59)
[2023-11-15] MEDS: LINAGLIPTIN 5 MG TABLET PO (09:00)
[2023-11-15] MEDS: Allopurinol 100 MG Tablet PO (09:01)
[2023-11-15 09:29] VITALS: PULSE 87; RESP 18
[2023-11-15 10:22] VITALS: BP 126/59; PULSE 87; RESP 18; TEMP 36.6
[2023-11-15 11:15] LABS: Bedside Glucose 218 mg/dL (74-106)
[2023-11-15 12:11] LABS: Bedside Glucose 184 mg/dL (74-106)
--- NOTE | 2023-11-15 12:12 | CASEMGMT ---
Social Work BIMS () and PHQ-2 () completed for MDS assessment. Brittany Kim MSW WARP TYING MACHINE KNOTTER
--- NOTE | 2023-11-15 15:15 | DCINST_ITS ---
Discharge Instructions Diet Discharge Diet: Carb Control Diet Activity Discharge Activity: Return to Normal Activity, May Shower and Use Walker Weight Bearing Status: Full weight bearing Dressing / Incision Call your doctor if you observe: Fever of 101 or Higher, Inability to urinate, Inability to have a bowel movement, Shortness of breath, Dizziness, Fainting spells, Swelling in the ankles, Chest pain, Increased palpitations (irregular heartbeat), Calf discomfort and Uncontrolled pain Follow Up Care Please Follow Up With: Gil Wheeler Chi, MD When: within 1-2 weeks post hospital DC Test Results: Test results from this visit will be discussed in further detail at your follow- up appointment, if applicable. Pending Tests Upon Discharge: none Discharge Plan Admission Admit Date/Time: 10/31/23 22:12 Primary Reason for Your Visit: Debility due to PNA/transaminitis/hyperbilirubinemia Attending Provider: Gil Wheeler Chi Primary Care Provider: Gil Wheeler Chi Consulting Providers: Raheem Salcedo Instructions Patient Instructions: Low-Fat Cooking Tips, Adding Flavor to Low-Fat Meals, ED Low-Cholesterol Diet Additional Instructions / Restrictions: 1. The abnormalities in the liver tests was likely related to infection/pneumonia. The live labs are now normal. 2. You have completed all the antibiotics you will need for treatment of pneumonia. 3. Follow up with Dr. Wheeler within the next 1-2 weeks. 4. The ultrasound of the liver showed fatty infiltration of the liver. This can lead to cirrhosis. I recommend you try and lose some weight and stick to a low fat diet. Discharge Orders/Prescriptions Prescriptions: New furosemide 40 mg Tablet 40 mg PO BIDLX Qty: 60 0RF alprazolam 0.25 mg Tablet 0.25 mg PO TID PRN (Reason: Anxiety) Qty: 5 0RF amlodipine 5 mg Tablet 5 mg PO BID Qty: 60 0RF aspirin 81 mg Tablet,Delayed Release (Dr/Ec) 81 mg PO BREAKFAST Qty: 1 0RF clonidine HCl 0.1 mg Tablet 0.1 mg PO TID Qty: 90 0RF insulin lispro [Humalog KwikPen Insulin] 100 unit/mL Insulin Pen 5 unit subcut TIDAC Qty: 2 0RF linagliptin 5 mg tablet 5 mg PO DAILY Qty: 30 0RF sennosides-docusate sodium [Stool Softener-Stimulant Laxat] 8.6-50 mg Tablet 2 tab PO BID Qty: 60 0RF acetaminophen 325 mg capsule 650 mg PO Q6H PRN (Reason: fever or pain) Qty: 100 0RF Continued potassium chloride 20 MEQ tablet 20 meq PO BIDCM Patient Comments: SUPPLEMENT doxepin 25 MG capsule 25 mg PO QHS Qty: 30 0RF pantoprazole 40 MG tablet 40 mg PO DAILY Qty: 30 0RF ergocalciferol (vitamin D2) 50,000 UNIT capsule 50,000 unit PO QMONTH Hold Instructions: on hold insulin glargine 100 UNITS/ML insulin pen 25 units subcut QHS allopurinol 100 MG tablet 100 mg PO DAILY 0RF levothyroxine 137 mcg tablet 137 mcg PO DAILY losartan 100 mg tablet 100 mg PO DAILY metoprolol succinate 25 mg tablet extended release 24 hr 12.5 mg PO BID Qty: 90 3RF Held paroxetine HCl 40 MG tablet 40 mg PO DAILY Hold Instructions: hold until Dr. Wheeler restarts at next office visit Patient Comments: MENTAL HEALTH Discontinued torsemide [Demadex] 20 mg tablet 20 mg PO BID simvastatin 40 MG tablet 40 mg PO QHS Patient Comments: CHOLESTEROL dulaglutide 1.5 MG/0.5 ML pen injector 1.5 mg SQ QWEEK Hold Instructions: on hold Rx Instructions: takes on fridays acetaminophen 500 MG tablet 1,000 mg PO Q6H PRN PRN (Reason: Mild Pain (1-01/26)) 0RF Hold Instructions: on hold nystatin 1 APPLIC bottle 1 applic topical 0600,2200 PRN (Reason: skin irritation) Hold Instructions: on hold Protocol: *Topical Application Instructions APPLICATION INSTRUCTIONS: groin levothyroxine 112 MCG tablet 112 mcg PO DAILY Hold Instructions: Dose changed doxycycline monohydrate 100 MG capsule 100 mg PO BID 0RF Hold Instructions: on hold promethazine 25 MG tablet 25 mg PO Q4H PRN PRN (Reason: NAUSEA/VOMITING) 0RF Hold Instructions: on hold nut.tx.gluc intol,lf,soy-fiber 120 ML liquid 120 ml PO 4X/DAY 0RF Hold Instructions: on hold ondansetron [ondansetron] 4 mg tablet,disintegrating 4 mg PO Q8H PRN PRN (Reason: Nausea) Qty: 10 0RF Hold Instructions: on hold nystatin 100,000 unit/gram ointment 1 applic topical BID Qty: 30 0RF Hold Instructions: on hold levofloxacin 750 mg tablet 750 mg PO Q24H polyethylene glycol 3350 17 GM packet 17 g PO DAILY Hold Instructions: on hold docusate sodium 100 MG capsule 100 mg PO DAILY insulin lispro 100 UNIT/ML insulin pen See Protocol subcut ACHS Hold Instructions: on hold Protocol: 1. Sliding Scale Insulin Low Dosing Condition: 150-224 mg/dl = 1 unit Condition: 225-299 mg/dl = 2 units Condition: 300-374 mg/dl = 3 units Condition: 375-499 mg/dl = 4 units Condition: Greater than 449 call physician Protocol Text: - Use for Total Daily Dose of Insulin 15-27 units - Thin, elderly, renal patients LOW DOSING ALGORITHM Referrals / Follow Up: Tyree Camargo DPM [Med Staff - Active Staff] - (please call @ your convenience for an appointment ) Gil Wheeler Chi, MD [Primary Care Provider] - (Call office to schedule 1st available appt ) Disposition Disposition (needs filled in before D/C Order can be placed): Home Health Service
--- NOTE | 2023-11-15 15:54 | PCM.DC.SUM ---
Providers Date of Admission: 10/31/23 Date of Discharge: 11/16/23 Primary Care Physician: Dr. Gil Wheeler MD Consultations 11/02/23 07:40 Consult: Podiatry Routine Consulting Provider: Raheem Salcedo Reason for Consult: General foot care. EMERGENT Consult: No MD Notified: Yes Date Notified: 11/02/23 Time Notified: 12:52 Method of Notification: Text Reason For Visit: Debility Diagnosis Discharge Diagnosis (1) Debility: Status: Acute Code(s): R53.81 - Other malaise (2) Pneumonia: Status: Resolved Code(s): J18.9 - Pneumonia, unspecified organism Qualifiers: Pneumonia type: due to unspecified organism (3) Transaminitis: Status: Resolved Code(s): R74.01 - Elevation of levels of liver transaminase levels (4) Hyperbilirubinemia: Status: Resolved Code(s): E80.6 - Other disorders of bilirubin metabolism (5) Anxiety: Status: Acute Code(s): F41.9 - Anxiety disorder, unspecified (6) Heart failure with preserved ejection fraction: Status: Chronic Code(s): I50.30 - Unspecified diastolic (congestive) heart failure (7) Vitamin D deficiency: Status: Chronic Code(s): E55.9 - Vitamin D deficiency, unspecified (8) Hypokalemia: Status: Acute Code(s): E87.6 - Hypokalemia (9) GERD (gastroesophageal reflux disease): Status: Chronic Code(s): K21.9 - Gastro-esophageal reflux disease without esophagitis (10) Hypothyroidism: Status: Chronic Code(s): E03.9 - Hypothyroidism, unspecified (11) Coronary artery disease: Status: Chronic Code(s): I25.10 - Atherosclerotic heart disease of [place] coronary artery without angina pectoris (12) Gout: Status: Chronic Code(s): M10.9 - Gout, unspecified (13) Type 2 diabetes mellitus with diabetic polyneuropathy: Status: Chronic Code(s): E11.42 - Type 2 diabetes mellitus with diabetic polyneuropathy Qualifiers: Diabetes mellitus remote computer terminal operator insulin use: with remote computer terminal operator use Qualified Code(s): E11.42 - Type 2 diabetes mellitus with diabetic polyneuropathy; Z79.4 - custodial (current) use of insulin (14) Stasis dermatitis of both legs: Status: Chronic Code(s): I87.2 - Venous insufficiency (chronic) (peripheral) (15) Essential (primary) hypertension: Status: Chronic Code(s): I10 - Essential (primary) hypertension (16) Chronic venous insufficiency: Status: Chronic Code(s): I87.2 - Venous insufficiency (chronic) (peripheral) (17) Hyperlipidemia: Status: Chronic Code(s): E78.5 - Hyperlipidemia, unspecified (18) Tinea unguium: Status: Chronic Code(s): B35.1 - Tinea unguium Plan 1. 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 Medications at Discharge Home Medications paroxetine HCl 40 mg tablet 40 mg PO DAILY depression 09/27/16 potassium chloride 20 mEq tablet,extended release(part/cryst) 20 meq PO BIDCM supplement 09/27/16 doxepin 25 mg capsule 25 mg PO QHS sleep #30 caps 04/24/19 pantoprazole 40 mg tablet,delayed release 40 mg PO DAILY Gerd #30 tabs 04/24/19 ergocalciferol (vitamin D2) 1,250 mcg (50,000 unit) capsule 50,000 unit PO QMONTH supplement 08/29/19 insulin glargine 100 unit/mL (3 mL) subcutaneous pen 25 units subcut QHS Diabetes 08/29/19 allopurinol 100 mg tablet 100 mg PO DAILY gout 09/04/19 metoprolol succinate 25 mg tablet,extended release 24 hr 12.5 mg (1/2 x 25 mg) PO BID BP #90 tabs 03/28/22 levothyroxine 137 mcg tablet 137 mcg PO DAILY Thyroid 10/31/23 losartan 100 mg tablet 100 mg PO DAILY BP 10/31/23 acetaminophen 325 mg capsule 650 mg (2 x 325 mg) PO Q6H PRN fever or pain #100 caps 11/15/23 alprazolam 0.25 mg tablet 0.25 mg PO TID PRN Anxiety #5 tabs 11/15/23 amlodipine 5 mg tablet 5 mg PO BID #60 tabs 11/15/23 aspirin 81 mg tablet,delayed release 81 mg PO BREAKFAST #1 TAB 11/15/23 clonidine HCl 0.1 mg tablet 0.1 mg PO TID #90 tabs 11/15/23 furosemide 40 mg tablet 40 mg PO BIDLX #60 tabs 11/15/23 insulin lispro 100 unit/mL subcutaneous pen (Humalog KwikPen (U-100) Insulin) 5 unit (0.05 mL) subcut TIDAC #2 pens 11/15/23 linagliptin 5 mg tablet 5 mg PO DAILY #30 tabs 11/15/23 sennosides 8.6 mg-docusate sodium 50 mg tablet (Stool Softener-Stimulant Laxative) 2 tab PO BID #60 tabs 11/15/23 Hospital Course Summary of Care Provided Minutes Spent on Discharge: 50 Hospital Course: PAYTON GONZALES, is a 78 Male who presents with followin10/28/2023 Admit to [facility]. Nausea, vomiting, abdominal pain, scrotal pain, cough. Blood pressure 196/97, Pulsox 95% on room air. Glucose 204, K 3.1, Alk phos 389, ALT 215, AST 398, Total bili 4. RUQ ultrasound showed fatty liver, small upper abdomen ascites. CT head negative. Chest X-ray showed left lower lobe infiltrate. 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 Labetalol, Morphine, Zofran, Potassium, IV fluids given in ED. Patient deaf, difficult history. Nausea, vomiting, abdominal pain, diarrhea x 4 days, then bloating. Blood pressure high, flushing. Local ER found no acute findings, discharged home. Dry cough, left testicular pain, headache, presented to [facility] ER. Levaquin 750mg daily for pneumonia. Hepatitis panel negative for transaminitis. 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 Patient status post cholecystectomy, treated supportively, did well. Nystatin powder for tinea corporis, tinea cruris. Lac-Hydrin bilateral lower extremities for chronic venous stasis dermatitis. Eating, drinking well. 10/31/2023 Admit to TCU with debility, here for rehabilitation, strengthening, prior to discharge home with . Pt is deaf and his is blind. She has been taking care of him but, he needs ask my licensed investment sales assistant with lower body dressing and total assistance with toileting. He is moderate assistance for toilet transfer and tub/shower transfer. I can't see how she is going to provide the assistance he needs if she can not see. The pt and his insist on going home. He was discharged on 11/16/23 home with [facility]. The notified adult protective services of [place]. Lab 1 day prior to discharge showed a normal white blood cell count with a hemoglobin of 12.6 and normal platelets. Sodium was 137 and the potassium was 3.4 and he was given a potassium supplement on 11/15/2023. Creatinine is within his baseline at 1.13. He is having an occasional blood sugar in the low 200s and sugars vary with what snacks family brings him. He will follow-up with Dr. Wheeler following discharge from TCU. Physical Exam Const alert Constitutional Narrative: can not hear me speaking to him. He is S/P failed cochlear implant. General Appearance: cooperative HEENT Mouth: dry mucous membranes Neck No nuchal rigidity Resp clear to auscultation bilaterally Resp Narrative: Diminished in the bases Effort and Inspection: Negative for tachypneic, respiratory distress or labored Cardio regular rate, regular rhythm, no rub and no gallops GI normal to inspection, nondistended, normoactive bowel sounds, soft to palpation and non-tender GI Narrative: No guarding with palpation Extremity no calf tenderness General Extremity: Negative for cyanosis or edema Skin Skin Narrative: No jaundice Rashes: no rashes Neuro Neuro Narrative: Moving all extremities. No facial asymmetry. Psych Psych Narrative: Can not evaluate because he is unable to hear me and is not answering my questions. Weight / BMI Weight Weight: 267 lb 8 oz Body Mass Index (BMI) 40.5 ABG / Lab / Microbiology Data 11/15/23 05:24 11/15/23 05:24 Laboratory: Laboratory Results - last 24 hr 11/14/23 16:11: POC Glucose 200 H 11/14/23 22:14: POC Glucose 178 H 11/15/23 05:24: WBC 10.7, RBC 4.59 L, Hgb 12.6 L, Hct 40.4, MCV 88.0, MCH 27.5, MCHC 31.2 L, RDW Std Deviation 47.2 H, RDW Coeff of Geovanni 14.6, Plt Count 449, MPV 9.8, Immature Gran % (Auto) 0.600, Neut % (Auto) 58.4, Lymph % (Auto) 28.3, Carter % (Auto) 10.3 H, Eos % (Auto) 2.0, Baso % (Auto) 0.4, Absolute Neuts (auto) 6.2, Absolute Lymphs (auto) 3.02, Nucleated RBC % 0, Sodium 137, Potassium 3.4 L, Chloride 104, Carbon Dioxide 27.0, Anion Gap 6, BUN 20 H, Creatinine 1.13, Estim Creat Clear Calc 52.12, Est GFR (MDRD) Af Amer 81, Est GFR (MDRD) Non-Af 67, BUN/Creatinine Ratio 17.7, Glucose 159 H, Calcium 8.9 11/15/23 05:58: POC Glucose 155 H 11/15/23 10:58: POC Glucose 218 H 11/15/23 11:51: POC Glucose 184 H Microbiology: Microbiology 11/14/23 14:16 Nasal Secretion SARS-CoV-2 Antigen (Rapid) - Final D/C Instructions Discharge Diet: Carb Control Diet Weight Bearing Status: Full weight bearing Call your doctor if you observe: Fever of 101 or Higher, Inability to urinate, Inability to have a bowel movement, Shortness of breath, Dizziness, Fainting spells, Swelling in the ankles, Chest pain, Increased palpitations (irregular heartbeat), Calf discomfort and Uncontrolled pain Pending Tests Upon Discharge: none Please Follow Up With: Gil Wheeler Chi, MD When: within 1-2 weeks post hospital DC Meaningful Use Info Meaningful Use Diagnoses (Choose all that apply): None applicable Discharge Plan Admission Admit Date/Time: 10/31/23 22:12 Primary Reason for Your Visit: Debility due to PNA/transaminitis/hyperbilirubinemia Attending Provider: Gil Wheeler Chi Primary Care Provider: Gil Wheeler Chi Consulting Providers: Raheem Salcedo Instructions Patient Instructions: Low-Fat Cooking Tips, Adding Flavor to Low-Fat Meals, ED Low-Cholesterol Diet Additional Instructions / Restrictions: 1. The abnormalities in the liver tests was likely related to infection/pneumonia. The live labs are now normal. 2. You have completed all the antibiotics you will need for treatment of pneumonia. 3. Follow up with Dr. Wheeler within the next 1-2 weeks. 4. The ultrasound of the liver showed fatty infiltration of the liver. This can lead to cirrhosis. I recommend you try and lose some weight and stick to a low fat diet. 5. Continue to monitor bilateral lower extremities for wounds and redness. Keep legs elevated. Discharge Orders/Prescriptions Prescriptions: New furosemide 40 mg Tablet 40 mg PO BIDLX Qty: 60 0RF alprazolam 0.25 mg Tablet 0.25 mg PO TID PRN (Reason: Anxiety) Qty: 5 0RF amlodipine 5 mg Tablet 5 mg PO BID Qty: 60 0RF aspirin 81 mg Tablet,Delayed Release (Dr/Ec) 81 mg PO BREAKFAST Qty: 1 0RF clonidine HCl 0.1 mg Tablet 0.1 mg PO TID Qty: 90 0RF insulin lispro [Humalog KwikPen Insulin] 100 unit/mL Insulin Pen 5 unit subcut TIDAC Qty: 2 0RF linagliptin 5 mg tablet 5 mg PO DAILY Qty: 30 0RF sennosides-docusate sodium [Stool Softener-Stimulant Laxat] 8.6-50 mg Tablet 2 tab PO BID Qty: 60 0RF acetaminophen 325 mg capsule 650 mg PO Q6H PRN (Reason: fever or pain) Qty: 100 0RF Continued potassium chloride 20 MEQ tablet 20 meq PO BIDCM Patient Comments: SUPPLEMENT doxepin 25 MG capsule 25 mg PO QHS Qty: 30 0RF pantoprazole 40 MG tablet 40 mg PO DAILY Qty: 30 0RF ergocalciferol (vitamin D2) 50,000 UNIT capsule 50,000 unit PO QMONTH Hold Instructions: on hold insulin glargine 100 UNITS/ML insulin pen 25 units subcut QHS allopurinol 100 MG tablet 100 mg PO DAILY 0RF levothyroxine 137 mcg tablet 137 mcg PO DAILY losartan 100 mg tablet 100 mg PO DAILY metoprolol succinate 25 mg tablet extended release 24 hr 12.5 mg PO BID Qty: 90 3RF Held paroxetine HCl 40 MG tablet 40 mg PO DAILY Hold Instructions: hold until Dr. Wheeler restarts at next office visit Patient Comments: MENTAL HEALTH Discontinued torsemide [Demadex] 20 mg tablet 20 mg PO BID simvastatin 40 MG tablet 40 mg PO QHS Patient Comments: CHOLESTEROL dulaglutide 1.5 MG/0.5 ML pen injector 1.5 mg SQ QWEEK Hold Instructions: on hold Rx Instructions: takes on fridays acetaminophen 500 MG tablet 1,000 mg PO Q6H PRN PRN (Reason: Mild Pain (1-3/10)) 0RF Hold Instructions: on hold nystatin 1 APPLIC bottle 1 applic topical 0600,2200 PRN (Reason: skin irritation) Hold Instructions: on hold Protocol: *Topical Application Instructions APPLICATION INSTRUCTIONS: groin levothyroxine 112 MCG tablet 112 mcg PO DAILY Hold Instructions: Dose changed doxycycline monohydrate 100 MG capsule 100 mg PO BID 0RF Hold Instructions: on hold promethazine 25 MG tablet 25 mg PO Q4H PRN PRN (Reason: NAUSEA/VOMITING) 0RF Hold Instructions: on hold nut.tx.gluc intol,lf,soy-fiber 120 ML liquid 120 ml PO 4X/DAY 0RF Hold Instructions: on hold ondansetron [ondansetron] 4 mg tablet,disintegrating 4 mg PO Q8H PRN PRN (Reason: Nausea) Qty: 10 0RF Hold Instructions: on hold nystatin 100,000 unit/gram ointment 1 applic topical BID Qty: 30 0RF Hold Instructions: on hold levofloxacin 750 mg tablet 750 mg PO Q24H polyethylene glycol 3350 17 GM packet 17 g PO DAILY Hold Instructions: on hold docusate sodium 100 MG capsule 100 mg PO DAILY insulin lispro 100 UNIT/ML insulin pen See Protocol subcut ACHS Hold Instructions: on hold Protocol: 1. Sliding Scale Insulin Low Dosing Condition: 150-224 mg/dl = 1 unit Condition: 225-299 mg/dl = 2 units Condition: 300-374 mg/dl = 3 units Condition: 375-499 mg/dl = 4 units Condition: Greater than 449 call physician Protocol Text: - Use for Total Daily Dose of Insulin 15-27 units - Thin, elderly, renal patients LOW DOSING ALGORITHM Referrals / Follow Up: Tyree Camargo DPM [Med Staff - Active Staff] - (please call @ your convenience for an appointment ) Gil Wheeler Chi, MD [Primary Care Provider] - (Call office to schedule 1st available appt ) Disposition Disposition (needs filled in before D/C Order can be placed): Home Health Service Charges/Coding Visit Charges Inpatient E&M: 05762 SNF Disch >30 Min
[2023-11-15 16:27] LABS: Bedside Glucose 196 mg/dL (74-106)
--- NOTE | 2023-11-15 16:33 | CHAPLAIN ---
Type of Pastoral Visit ___ Initial Visit _x__ Follow-up Visit ___ On-call Visit ___ General Patient Visit ___ Spiritual Assessment ___ Family Conference ___ Bereavement ___ Rapid Response ___ Code Blue ___ Other (describe below) Pastoral Care Referral From _x__ Patient ___ Family ___ Nurse ___ Physician ___ Pharmacy Retail Support Specialist ___ Behavioral Analyst ___ Other (describe below) Sacrament/Intervention _x__ Active listening ___ Anointing ___ Mu-Ism ___ Bereavement ___ Communion ___ Scarlett exploration ___ _x__ Life review _x__ Prayer ___ Reconciliation ___ Sacrament of Sick _x__ Supportive presence ___ Wedding ___ Other (describe below) Pastoral Comments a follow up visit to offer support to this patient who likes to talk; pt has health issues and has a negative look on life but is given time to express himself and then he gives thanks for the time given to him; pt spouse is blind and he talks about their difficulties in their situation; pt welcomes the presence and prayers of this window cutter; pt expects to be discharged tomorrow
[2023-11-15 17:02] LABS: Bedside Glucose 182 mg/dL (74-106)
[2023-11-15 21:22] LABS: Bedside Glucose 280 mg/dL (74-106)
[2023-11-15 22:17] VITALS: BP 154/74; PULSE 80
[2023-11-15] MEDS: Doxepin Hcl 25 MG Capsule PO (22:17)
[2023-11-15] MEDS: Insulin Glargine-YFGN 100 UNIT/ML Pen 25 UNIT SC (22:17)
[2023-11-15] MEDS: Acetaminophen 500 MG Tablet 1000 MG PO (22:19)
[2023-11-16] MEDS: Furosemide 40 MG Tablet PO (06:17)
[2023-11-16] MEDS: Enoxaparin 40 MG/0.4 ML Syringe SC (06:17)
[2023-11-16] MEDS: Levothyroxine 137 MCG Tablet PO (06:17)
[2023-11-16] MEDS: cloNIDine HCl 0.1 MG Tablet 0.100000000000000006 MG PO (06:18)
[2023-11-16 06:21] LABS: Bedside Glucose 145 mg/dL (74-106)
[2023-11-16 06:35] VITALS: PULSE 61; RESP 16; O2SAT 96
[2023-11-16] MEDS: Potassium Chloride Oral Tablet 20 MEQ PO (07:55)
[2023-11-16] MEDS: Aspirin E.C. 81 MG Tablet PO (07:55)
[2023-11-16] MEDS: Losartan Potassium 100 MG Tablet PO (07:56)
[2023-11-16] MEDS: Menthol/Lanolin/Calamine/Znox 113 GM Tube 1 APPLIC TOPICAL (07:57)
[2023-11-16] MEDS: Nystatin Powder 15gm Bottle 1 APPLIC TOPICAL (07:57)
[2023-11-16] MEDS: BACITRACIN 15 GM Tube 1 APPLIC TOPICAL (07:57)
[2023-11-16] MEDS: Ammonium Lactate 225 gm Bottle 1 APPLIC TOPICAL (07:57)
[2023-11-16] MEDS: Senna/Docusate Sodium 1 Tablet 2 TABLET PO (07:58)
[2023-11-16] MEDS: Pantoprazole Sodium 40 MG Tablet PO (07:58)
[2023-11-16] MEDS: Triamcinolone 0.1% Ointment 15 gm tube 1 APPLIC TOPICAL (07:58)
[2023-11-16 07:59] VITALS: BP 170/74; PULSE 67
[2023-11-16] MEDS: Metoprolol(XL)Succ 25 MG Tablet 12.5 MG PO (07:59)
[2023-11-16] MEDS: Allopurinol 100 MG Tablet PO (08:00)
[2023-11-16] MEDS: LINAGLIPTIN 5 MG TABLET PO (08:00)
[2023-11-16] MEDS: amLODIPine 5 MG Tablet PO (08:00)
[2023-11-16] MEDS: Insulin Lispro 100 UNIT/ML INSULN.PEN SC (08:01)
[2023-11-16 10:00] VITALS: BP 143/71; PULSE 67; RESP 18; TEMP 36.5; O2SAT 95
--- NOTE | 2023-11-16 10:28 | CASEMGMT ---
Social Work SW sent DC paperwork to [facility]. Updated [facility] that pt has newly developed issues with legs and nursing reported possible concern for cellulitis. Inquired about nursing SOC. [facility] has SOC 11/17. JENNIFER also phoned referral to [facility] APS and spoke with Joyce, for concerns with pt and in the home not receiving appropriate services. IDT recommending 24/7 care, specifically in a SNF. But pt and family adamantly decline and do not want to liquidate pt's life insurance policy. APS to review and follow up as appropriate. Brittany Kim, ENTRY LEVEL PARALEGAL COGENERATION OPERATOR
== END 2023-11-16 10:00 | disposition home health service (06) | DRG 194 ==
PROVIDERS: Admitting Provider Family Medicine Geriatric Medicine; PCP Family Medicine Geriatric Medicine; Visit Provider Family Medicine Geriatric Medicine
DX: J18.9 Pneumonia, unspecified organism (principal); I50.32 Chronic diastolic (congestive) heart failure; E11.42 Type 2 diabetes mellitus with diabetic polyneuropathy; B35.1 Tinea unguium; B35.4 Tinea corporis; B35.6 Tinea cruris; E11.51 Type 2 diabetes mellitus with diabetic peripheral angiopathy without gangrene; I11.0 Hypertensive heart disease with heart failure; Z79.4 Long term (current) use of insulin; E03.9 Hypothyroidism, unspecified; E55.9 Vitamin D deficiency, unspecified; M10.9 Gout, unspecified; E87.6 Hypokalemia; E78.5 Hyperlipidemia, unspecified; K21.9 Gastro-esophageal reflux disease without esophagitis; E80.6 Other disorders of bilirubin metabolism; I25.10 Atherosclerotic heart disease of native coronary artery without angina pectoris; F41.9 Anxiety disorder, unspecified; Z87.891 Personal history of nicotine dependence; R74.01 Elevation of levels of liver transaminase levels; Z79.899 Other long term (current) drug therapy; Z79.890 Hormone replacement therapy; H91.90 Unspecified hearing loss, unspecified ear
CPT/HCPCS: 36415; 80048; 80053; 82533; 82962; 85025; 87811; 97110; 97116; 97162; 97166; 97530; 97535; 97802; A4216

== ENCOUNTER → 2023-11-05 | Outpatient (CLI) | payer MEDICARE, SELFPAY ==
--- NOTE | 2023-11-05 09:57 | CT_ITS ---
STUDY: CT ABDOMEN AND PELVIS WITH CONTRAST REASON FOR EXAM: Male, 78 years old. Testicular pain. Scrotal swelling. RADIATION DOSAGE (If Supplied By Facility): CTDIvol = ( 29.22 ) mGy, DLP = ( 1848.75 ) mGycm TECHNIQUE: Transaxial images were obtained from the dome of the diaphragm to the symphysis pubis with oral contrast. Oral and amp; IV Gastrografin and amp; 100mL Isovue-370 was administered. Sagittal and coronal images were reconstructed. Individualized dose optimization techniques were used for this CT. COMPARISON: Comparison is made with prior examination dated October 26, 2023. FINDINGS: Mild degree of increased markings at the lung bases suggestive of either mild linear scarring versus atelectasis. Coronary artery calcification. Normal liver. The patient is status post cholecystectomy. Normal spleen. Normal pancreas. There is a small, circumscribed, smooth, low attenuation left adrenal mass, consistent with an adrenal adenoma. This measures 1 cm. Normal right adrenal gland. Tiny nonobstructive right intrarenal calculus. Normal left kidney. The stomach is distended with residual food particles. Normal small intestine. There are scattered colonic diverticula consistent with diverticulosis. The appendix is visualized and appears normal. There is diffuse atherosclerotic calcification of the abdominal aorta and its major visceral branches, without a demonstrated aneurysm. Normal inferior vena cava. Normal retroperitoneum. Normal urinary bladder. There are prostatic calcifications. Findings suggestive of a right hydrocele. Small lymph nodes are seen in the inguinal regions bilaterally. Findings suggestive of right inguinal hernia repair. There are diffuse degenerative changes of the visualized lumbar spine. Status post right hip replacement causing beam hardening artifact does limiting the evaluation of the pelvic structures. CT/Abdomen/Pelvis WITH Contrast IMPRESSION: Status post cholecystectomy. Distended stomach with food particles. Prostatic calcifications. Right-sided hydrocele. Status post right total hip replacement. Electronically Signed: Sherman Trivedi MD at 13:22 EST ,
== END | disposition home or self-care (01) ==
PROVIDERS: PCP Family Medicine Geriatric Medicine; Referring Provider Family Medicine Geriatric Medicine; Visit Provider Family Medicine Geriatric Medicine
DX: N50.819 Testicular pain, unspecified (principal)
CPT/HCPCS: 74177; Q9967

== ENCOUNTER → 2024-02-06 | Outpatient (CLI) | payer MEDICARE, SELFPAY ==
[2024-02-06 15:27] LABS: Absolute Lymphocyte Count 2.25 X10^3/uL (0.83-4.51); Basophil# 0.06 X10^3/uL; Basophil% 0.5 % (0-1); Eosinophil# 0.08 X10^3/uL; Eosinophils% 0.7 % (0-5); Hematocrit 42.6 % (40-54); Hemoglobin 13.5 g/dL (13.0-16.5); Lymphocyte # 2.25 X10^3/ul (0.83-4.51); Lymphocyte % 18.3 % (19-41); Mean Corp Hgb Conc 31.7 g/dL (32-36); Mean Corpuscular Hgb 27.1 pg (27.0-32.0); Mean Corpuscular Volume 85.4 fL (80-94); Mean Platelet Vol. 10.2 fl (6.2-12.0); Monocyte# 0.84 X10^3/uL; Monocyte% 6.8 % (0-10); NRBC Flagged by Analyzer 0 % (0-5); Neutrophil # 9.01 X10^3/uL (2.7-7.7); Neutrophil % 73.3 % (47-70); Platelet Count 480 K/mm3 (150-450); RBC Distribution Width CV 14.7 % (11.6-14.6); RBC Distribution Width SD 45.1 fl (35.1-43.9); Red Blood Count 4.99 M/mm3 (4.6-6.2); White Blood Count 12.3 K/mm3 (4.4-11.0)
[2024-02-06 15:44] LABS: Vitamin D,25 Hydroxy 30.2 ng/mL
[2024-02-06 15:49] LABS: ALB/GLOB Ratio 0.7 RATIO (0.9-2.4); AST(SGOT) 17 U/L (15-37); Alanine Aminotransfer ALT/SGPT 18 U/L (16-61); Albumin, Serum 3.1 g/dL (3.2-5.0); Alkaline Phosphatase 218 U/L (45-117); Anion Gap 7 (5-15); BUN 18 mg/dL (7-18); BUN/Creat Ratio 14.9 RATIO (10-20); Calcium,Total 9.2 mg/dL (8.5-10.1); Chloride 106 mmol/L (98-107); Creatinine, Serum 1.21 mg/dL (0.70-1.30); EST Glomerular Filtration Rate 62 mL/min (>60); Est Glom Filt Rate - Afr Amer 75 mL/min (>60); Globulin 4.5 g/dL (2.2-4.2); Glucose 196 mg/dL (74-106); Potassium 3.8 mmol/L (3.5-5.1); Protein, Total 7.6 g/dL (6.4-8.2); Sodium Level 142 mmol/L (136-145); Thyroid Stim Hormone (TSH) 2.23 uIU/mL (0.358-3.74); Uric Acid 5.6 mg/dL (3.5-7.2)
== END | disposition home or self-care (01) ==
LOC: POLAB3 13:30
PROVIDERS: PCP Family Medicine Geriatric Medicine; Visit Provider Family Medicine Geriatric Medicine
DX: I10 Essential (primary) hypertension (principal); E11.65 Type 2 diabetes mellitus with hyperglycemia; E55.9 Vitamin D deficiency, unspecified; M10.9 Gout, unspecified
CPT/HCPCS: 36415; 80053; 82306; 84443; 84550; 85025

== ENCOUNTER 2024-02-15 14:55 | Emergency (ER) | payer MEDICARE, SELFPAY ==
[2024-02-15 15:02] VITALS: BP 151/68; PULSE 65; RESP 23; TEMP 36.4; O2SAT 96; BMI 43.7
[2024-02-15 15:05] VITALS: BP 151/68; PULSE 65; RESP 23; TEMP 36.4; O2SAT 95
--- NOTE | 2024-02-15 15:30 | EX.ED.DYSGE1 ---
HPI <Sarah Sanchez RN - Last Filed: 02/15/24 16:56> History of Present Illness Chief Complaint: Cellulitis Informant: patient Onset/Context/Timing Onset: Days (2) Context: Gradual Onset Timing: Continuous Quality: Aching Location: Bilateral lower extremities Current Severity: 7/10 Maximum Severity: 7/10 Worsened by: Movement Relieved by: Rest Narrative Narrative: Patient is a 70-year-old male with past medical history significant for CAD, diabetes, neuropathy, hypertension who presented via EMS for concerns of bilateral lower extremity edema and clear drainage x 2 days. Patient reports he is concerned he has cellulitis. Patient reports episode of cellulitis to lower extremities approximately 1 month ago. He did not receive antibiotics at that time. He use cream on the sites with resolution. He does report his blood sugars are running 70-110s at home. Seen by his primary care provider 2 days ago. Patient reports he was not given antibiotics at that time. Edema and redness continue to worsen. Patient denies fever or chills. Denies recent hospitalization or travel. He also reports bilateral hip pain rates 7/10 resolving with position changes. He does have a history of chronic back knee and leg pain. Prior similar symptoms: Yes Recent Illness/Hospitalization: No PFSH <Sarah Sanchez RN - Last Filed: 02/15/24 16:56> [facility] Medical History Abscess of right leg Asbestos exposure Body mass index (BMI) 40.0-44.9, adult Chronic diastolic (congestive) heart failure Chronic venous insufficiency Depression Diabetes mellitus Diabetes mellitus Diabetic ulcer of right lower leg associated with type 2 diabetes mellitus, with fat layer exposed Essential (primary) hypertension Fracture of right tibia and fibula GERD (gastroesophageal reflux disease) GERD (gastroesophageal reflux disease) Gout Heart failure with preserved ejection fraction Hyperlipidemia Hypothyroidism Hypothyroidism Insomnia Low back pain Lumbar spinal stenosis Lymphedema MRSA (methicillin resistant Staphylococcus aureus) infection MRSA bacteremia Neuropathic pain 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 Obesity, morbid, BMI 40.0-49.9 Obstructive sleep apnea EH (obstructive sleep apnea) Osteoarthritis of knees, bilateral Sleep apnea Stasis dermatitis of both legs Tinea unguium Tricuspid valve insufficiency Type 2 diabetes mellitus Type 2 diabetes mellitus with diabetic polyneuropathy Unspecified fracture of shaft of right tibia, sequela Venous stasis dermatitis of right lower extremity Vitamin D deficiency Home Medications paroxetine HCl 40 mg tablet 40 mg PO DAILY depression 09/27/16 [History Last Taken 03/10/19 09:34] potassium chloride 20 mEq tablet,extended release(part/cryst) 20 meq PO BIDCM supplement 09/27/16 [History Last Taken 03/10/19 09:32] doxepin 25 mg capsule 25 mg PO QHS sleep #30 caps 04/24/19 [Rx Last Taken 10/31/23] pantoprazole 40 mg tablet,delayed release 40 mg PO DAILY Gerd #30 tabs 04/24/19 [Rx Last Taken 09/02/19] ergocalciferol (vitamin D2) 1,250 mcg (50,000 unit) capsule 50,000 unit PO QMONTH supplement 08/29/19 [History Last Taken Unknown] insulin glargine 100 unit/mL (3 mL) subcutaneous pen 25 units subcut QHS Diabetes 08/29/19 [History Last Taken Unknown] allopurinol 100 mg tablet 100 mg PO DAILY gout 09/04/19 [Rx Last Taken 10/31/23] metoprolol succinate 25 mg tablet,extended release 24 hr 12.5 mg (1/2 x 25 mg) PO BID BP #90 tabs 03/28/22 [Rx Last Taken Unknown] levothyroxine 137 mcg tablet 137 mcg PO DAILY Thyroid 10/31/23 [History Last Taken Unknown] losartan 100 mg tablet 100 mg PO DAILY BP 10/31/23 [History Last Taken Unknown] acetaminophen 325 mg capsule 650 mg (2 x 325 mg) PO Q6H PRN fever or pain #100 caps 11/15/23 [Rx Last Taken Unknown] alprazolam 0.25 mg tablet 0.25 mg PO TID PRN Anxiety #5 tabs 11/15/23 [Rx Last Taken Unknown] amlodipine 5 mg tablet 5 mg PO BID #60 tabs 11/15/23 [Rx Last Taken Unknown] aspirin 81 mg tablet,delayed release 81 mg PO BREAKFAST #1 TAB 11/15/23 [Rx Last Taken Unknown] clonidine HCl 0.1 mg tablet 0.1 mg PO TID #90 tabs 11/15/23 [Rx Last Taken Unknown] furosemide 40 mg tablet 40 mg PO BIDLX #60 tabs 11/15/23 [Rx Last Taken Unknown] insulin lispro 100 unit/mL subcutaneous pen (Humalog KwikPen (U-100) Insulin) 5 unit (0.05 mL) subcut TIDAC #2 pens 11/15/23 [Rx Last Taken Unknown] linagliptin 5 mg tablet 5 mg PO DAILY #30 tabs 11/15/23 [Rx Last Taken Unknown] sennosides 8.6 mg-docusate sodium 50 mg tablet (Stool Softener-Stimulant Laxative) 2 tab PO BID #60 tabs 11/15/23 [Rx Last Taken Unknown] dulaglutide 3 mg/0.5 mL subcutaneous pen injector (Trulicity) mg subcut 02/15/24 [History Last Taken Unknown] insulin lispro 200 unit/mL (3 mL) subcutaneous pen (Humalog KwikPen U-200 Insulin) subcut 02/15/24 [History Last Taken Unknown] Allergy/AdvReac Type Severity Reaction Status Date / Time cocaine Allergy Unknown Verified 02/15/24 15:06 vancomycin Allergy Rash Verified 02/15/24 15:06 atorvastatin calcium AdvReac Pain in Verified 02/15/24 15:06 [From Lipitor] joints Corticosteroids AdvReac ANXIETY, Verified 02/15/24 15:06 (Glucocorticoids) INSOMNIA [steroids] haloperidol [From Haldol] AdvReac Other Verified 02/15/24 15:06 morphine AdvReac Other Verified 02/15/24 15:06 oxycodone [From OxyIR] AdvReac Pain in Verified 02/15/24 15:06 joints prednisone AdvReac ANXIOUS, Verified 02/15/24 15:06 INSOMNIA Family History Mother Hypertension Father Hypertension Surgical History Cochlear implant in place H/O shoulder surgery History of left heart catheterization (08/15/17) History of right knee joint replacement Hx of cholecystectomy Presence of right artificial knee joint Previous back surgery Social History household members: spouse Smoking Status: Former smoker alcohol intake: never substance use type: does not use ROS <Sarah Sanchez RN - Last Filed: 02/15/24 16:56> ROS ED Constitutional Constitutional ED: Denies chills, fever(s) or sweats Eyes Eyes: Denies change in vision ENT ENT ED: Denies ear pain, rhinorrhea or sore throat Cardiovascular Cardiovascular: Denies chest pain, orthopnea, palpitations or racing heartbeat Respiratory/Chest Respiratory/Chest: Denies cough, dyspnea, dyspnea on exertion or orthopnea Gastrointestinal Gastrointestinal: Denies abdominal pain, constipation, diarrhea, nausea or vomiting Genitourinary Genitourinary ED: Denies dysuria, hematuria or urinary frequency Musculoskeletal Musculoskeletal: Reports arthralgias, back pain and myalgias Integumentary Reports other Details: Redness, blistering, and drainage to bilateral lower extremities ; Denies abscess or Abrasions Neurologic Neurologic: Denies headache(s) or weakness Psychiatric Psychiatric: Denies anxiety or depression Endocrine Endocrinology: Denies polydipsia, polyphagia or polyuria Hematologic/Lymphatic Hematologic/Lymphatic: Reports systems reviewed and no addt'l complaints, except as documented EXAM <Sarah Sanchez RN - Last Filed: 02/15/24 16:56> Physical Exam Narrative Exam Narrative: Patient is awake, alert, cooperative, good historian. Const Vital Signs: 02/15/24 15:02 02/15/24 15:05 02/15/24 16:05 Temperature 97.5 F L 97.5 F L 98.6 F Temperature Source Temporal Temporal Temporal Pulse Rate 65 65 71 Respiratory Rate 23 H 23 H 28 H Blood Pressure 151/68 H 151/68 H 181/69 H Blood Pressure Mean 95 95 106 Pulse Ox 96 95 95 Oxygen Delivery Method Room Air Room Air Room Air Positive well nourished and well developed General Appearance ED: well developed and NAD HEENT Reports moist mucous membranes Eyes PERRL Neck no lymphadenopathy, supple and no JVD Chest Wall inspection of chest normal and palpation of chest normal Resp normal respiratory effort Resp Narrative: Coarse breath sounds bilaterally Auscultation: Negative for rales, rhonchi or wheezes Cardio regular rate, regular rhythm, S1 normal heart sound and S2 normal heart sound GI normal to inspection, nondistended, normoactive bowel sounds and non-tender Palpation: soft Narrative: Denies dysuria, hematuria, or frequency. Extremity Extremity Narrative: +3-4 Pitting edema to bilateral lower extremities and feet. General Extremety ED: Yes edema General Extremity: edema Neuro oriented x3 Sensorium / Orientation: alert Motor Exam: strength 5/5 throughout Psych mental status grossly normal Skin Skin Narrative: Erythema, and scattered clear fluid-filled vesicles with scattered peeling skin Wounds: wounds noted drainage other Clear and surrounding erythema <Dr. Landon Combs MD - Last Filed: 02/15/24 15:48> Physical Exam Const Vital Signs: 02/15/24 15:02 02/15/24 15:05 02/15/24 16:05 Temperature 97.5 F L 97.5 F L 98.6 F Temperature Source Temporal Temporal Temporal Pulse Rate 65 65 71 Respiratory Rate 23 H 23 H 28 H Blood Pressure 151/68 H 151/68 H 181/69 H Blood Pressure Mean 95 95 106 Pulse Ox 96 95 95 Oxygen Delivery Method Room Air Room Air Room Air MDM <Sarah Sanchez RN - Last Filed: 02/15/24 16:56> MDM MDM Narrative Medical decision making narrative: IV line initiated. Labwork obtained to evaluate for leukocytosis, anemia, and electrolyte derangement. Unasyn 3 g IV ordered due to concern for cellulitis. History & Record Review Discussion w/independent historian: Patient Lab Data Labs: Laboratory Results - last 24 hr 02/15/24 16:15 WBC 11.9 H RBC 4.88 Hgb 12.8 L Hct 40.7 MCV 83.4 MCH 26.2 L MCHC 31.4 L RDW Std Deviation 46.1 H RDW Coeff of Geovanni 15.2 H Plt Count 486 H MPV 9.6 Immature Gran % (Auto) 0.400 Neut % (Auto) 72.6 H Lymph % (Auto) 17.8 L [place] % (Auto) 7.4 Eos % (Auto) 1.4 Baso % (Auto) 0.4 Absolute Neuts (auto) 8.7 H Absolute Lymphs (auto) 2.12 Nucleated RBC % 0 Sodium 140 Potassium 3.5 Chloride 106 Carbon Dioxide 27.0 Anion Gap 7 BUN 27 H Creatinine 1.45 H Estim Creat Clear Calc 55.40 Est GFR (MDRD) Af Amer 60 Est GFR (MDRD) Non-Af 50 L BUN/Creatinine Ratio 18.6 Glucose 245 H Calcium 9.3 Differential Diagnosis Differential Diagnosis: Cellulitis Management Discussion w/another healthcare provider: Other (Dr. Combs, ED provider) Treatment and Re-Evaluation :: Lab work reviewed. CBC shows which is lower than on 02/06/2024 when it was 12.3. Hemoglobin is 12.8 which is the patient's baseline. Platelets are 486. Chemistry shows slightly elevated BUN of 27 and creatinine 1.45. Glucose is 245. Upon reevaluation, patient is awake and alert in bed. Lab work discussed with patient. Patient will be discharged home on Augmentin. He is to follow-up with his primary care provider in 3-5 days or sooner if symptoms worsen. He is advised to keep legs elevated. <Dr. Landon Combs MD - Last Filed: 02/15/24 15:48> MDM MDM Narrative Medical decision making narrative: IV line initiated. Labwork obtained to evaluate for leukocytosis, anemia, and electrolyte derangement. I have personally performed a face to face assessment of the patient and have reviewed the NATALY Note. I performed a substantive portion of the visit including all aspects of the following. My hatch findings include: History is 78-year-old male past medical history of diabetes and congestive heart failure. Complaining of 1 to 2-week history of bilateral lower extremity redness. Home nursing believes he might have cellulitis and want him evaluated. He denies any fever or chills. He was in the hospital in October but I do not believe he has been readmitted since that time. Exam is [78-year-old male no acute distress vital signs stable afebrile. Pulse ox 96 percent on room air no hypoxia. H EENT exam unremarkable. Very hard of hearing. Lungs clear to auscultation bilaterally. Heart regular rhythm rate of 65 no murmur. Chest wall nontender. Abdomen soft nontender. He does have a yeast infection in his groins. Moving all 4 extremities. Dorsi plantarflexion intact. Touch sensation intact. Normal family coach strength. He has multiple blisters on both lower extremities peripheral edema. Cellulitis it is rhythm anterior shins and warm to touch. Bilateral. Neurologically is awake and alert. Following commands and answering questions.] Medical Decision Making [78-year-old male history of CHF and diabetes has lower extremity cellulitis. Will be given IV Unasyn. Screening labs will be obtained. Clinically looks like he could be discharged home at this time. Will reevaluate him and also wait to see what his labs show.] Other additions or changes: [None] Lab Data Attestation: I reviewed the patient's lab results. Labs: Laboratory Results - last 24 hr 02/15/24 16:15 WBC 11.9 H RBC 4.88 Hgb 12.8 L Hct 40.7 MCV 83.4 MCH 26.2 L MCHC 31.4 L RDW Std Deviation 46.1 H RDW Coeff of [place]ovanni 15.2 H Plt Count 486 H MPV 9.6 Immature Gran % (Auto) 0.400 Neut % (Auto) 72.6 H Lymph % (Auto) 17.8 L [place] % (Auto) 7.4 Eos % (Auto) 1.4 Baso % (Auto) 0.4 Absolute Neuts (auto) 8.7 H Absolute Lymphs (auto) 2.12 Nucleated RBC % 0 Sodium 140 Potassium 3.5 Chloride 106 Carbon Dioxide 27.0 Anion Gap 7 BUN 27 H Creatinine 1.45 H Estim Creat Clear Calc 55.40 Est GFR (MDRD) Af Amer 60 Est GFR (MDRD) Non-Af 50 L BUN/Creatinine Ratio 18.6 Glucose 245 H Calcium 9.3 Discharge Plan Triage Chief Complaint: Cellulitis ED Provider: Landon Combs Dx/Rx/DC Orders Clinical Impression: History of peripheral neuropathy, Cellulitis and abscess of leg, History of diabetes mellitus Instructions: ED Cellulitis Prescriptions: No Action potassium chloride 20 MEQ tablet 20 meq PO BIDCM Patient Comments: SUPPLEMENT paroxetine HCl 40 MG tablet 40 mg PO DAILY Hold Instructions: hold until Dr. Wheeler restarts at next office visit Patient Comments: MENTAL HEALTH doxepin 25 MG capsule 25 mg PO QHS Qty: 30 0RF pantoprazole 40 MG tablet 40 mg PO DAILY Qty: 30 0RF ergocalciferol (vitamin D2) 50,000 UNIT capsule 50,000 unit PO QMONTH Hold Instructions: on hold insulin glargine 100 UNITS/ML insulin pen 25 units subcut QHS allopurinol 100 MG tablet 100 mg PO DAILY 0RF levothyroxine 137 mcg tablet 137 mcg PO DAILY losartan 100 mg tablet 100 mg PO DAILY furosemide 40 mg Tablet 40 mg PO BIDLX Qty: 60 0RF alprazolam 0.25 mg Tablet 0.25 mg PO TID PRN (Reason: Anxiety) Qty: 5 0RF amlodipine 5 mg Tablet 5 mg PO BID Qty: 60 0RF aspirin 81 mg Tablet,Delayed Release (Dr/Ec) 81 mg PO BREAKFAST Qty: 1 0RF clonidine HCl 0.1 mg Tablet 0.1 mg PO TID Qty: 90 0RF insulin lispro [Humalog KwikPen Insulin] 100 unit/mL Insulin Pen 5 unit subcut TIDAC Qty: 2 0RF linagliptin 5 mg tablet 5 mg PO DAILY Qty: 30 0RF sennosides-docusate sodium [Stool Softener-Stimulant Laxat] 8.6-50 mg Tablet 2 tab PO BID Qty: 60 0RF acetaminophen 325 mg capsule 650 mg PO Q6H PRN (Reason: fever or pain) Qty: 100 0RF Humalog KwikPen Insulin 200 unit/mL (3 mL) insulin pen subcut Trulicity 3 mg/0.5 mL pen injector subcut metoprolol succinate 25 mg tablet extended release 24 hr 12.5 mg PO BID Qty: 90 3RF Primary Care Provider: Gil Wheeler Chi Referrals: Gil Wheeler Chi, MD [Primary Care Provider] - Activity Restrictions/Additional Instructions: Your lab work is reassuring. Follow-up with Dr. Wheeler in 3-5 days for worsening symptoms. Keep legs elevated as much as possible. Wash legs gently with soap and water twice a day. Complete entire course of antibiotics. Return to ED for worsening or concerning symptoms. Disposition Disposition: Home, Self Care
[2024-02-15 16:05] VITALS: BP 181/69; PULSE 71; RESP 28; TEMP 37; O2SAT 95
[2024-02-15 16:24] LABS: Absolute Lymphocyte Count 2.12 X10^3/uL (0.83-4.51); Absolute Neutrophil Count 8.7 X10^3/uL (2.0-7.7); Basophil# 0.05 X10^3/uL; Basophil% 0.4 % (0-1); Eosinophil# 0.17 X10^3/uL; Eosinophils% 1.4 % (0-5); Hematocrit 40.7 % (40-54); Hemoglobin 12.8 g/dL (13.0-16.5); Lymphocyte # 2.12 X10^3/ul (0.83-4.51); Lymphocyte % 17.8 % (19-41); Mean Corp Hgb Conc 31.4 g/dL (32-36); Mean Corpuscular Hgb 26.2 pg (27.0-32.0); Mean Corpuscular Volume 83.4 fL (80-94); Mean Platelet Vol. 9.6 fl (6.2-12.0); Monocyte# 0.88 X10^3/uL; Monocyte% 7.4 % (0-10); NRBC Flagged by Analyzer 0 % (0-5); Neutrophil # 8.65 X10^3/uL (2.7-7.7); Neutrophil % 72.6 % (47-70); Platelet Count 486 K/mm3 (150-450); RBC Distribution Width CV 15.2 % (11.6-14.6); RBC Distribution Width SD 46.1 fl (35.1-43.9); Red Blood Count 4.88 M/mm3 (4.6-6.2); White Blood Count 11.9 K/mm3 (4.4-11.0)
[2024-02-15] MEDS: Ampicillin/Sulbactam 3 GM in 0.9% Normal Saline (100mL MB+) 100 ML IV (16:37)
[2024-02-15 16:39] LABS: Anion Gap 7 (5-15); BUN 27 mg/dL (7-18); BUN/Creat Ratio 18.6 RATIO (10-20); Calcium,Total 9.3 mg/dL (8.5-10.1); Chloride 106 mmol/L (98-107); Creatinine, Serum 1.45 mg/dL (0.70-1.30); EST Glomerular Filtration Rate 50 mL/min (>60); Est Glom Filt Rate - Afr Amer 60 mL/min (>60); Glucose 245 mg/dL (74-106); Potassium 3.5 mmol/L (3.5-5.1); Sodium Level 140 mmol/L (136-145)
[2024-02-15 17:00] VITALS: BP 160/81; PULSE 77; RESP 19; TEMP 37; O2SAT 94
--- NOTE | 2024-02-15 17:34 | ED.RN ---
ATTEMPTED TO CALL ABOUT PATIENT BEING DISCHARGE, THERE WAS NO ANSWER. UNABLE TO LEAVE VOICEMAIL D/T NO VOICEMAIL BOX
--- NOTE | 2024-02-15 17:52 | ED.RN ---
spoke with , the family is coming to get patient at this time.
--- NOTE | 2024-02-15 18:43 | ED.RN ---
PT DISCHARGED. THIS RN NOTIFIED BY TRIAGE NURSE THAT THE PATIENT AND FAMILY HAVE A COMPLAINT. PER PT , PT IS UNABLE TO AMBULATE AND GETS AROUND USING POWER WHEELCHAIR. FAMILY REQUESTING WHEELCHAIR [facility] SERVICE HOME.FAMILY REPORTS THAT THEY DO NOT HAVE THE PATIENTS WHEELCHAIR, OR WALKER TO ASSIST HIM IN GETTING HOME. THIS RN CALLS AND ARRANGES TRANSPORT VIA WHEELCHAIR VAN. ETA, IS 3 HOURS.
== END 2024-02-15 17:53 | disposition home or self-care (01) ==
PROVIDERS: Emergency Provider Emergency Medicine; PCP Family Medicine Geriatric Medicine; Visit Provider Emergency Medicine
DX: L03.115 Cellulitis of right lower limb (principal); E11.42 Type 2 diabetes mellitus with diabetic polyneuropathy; L03.116 Cellulitis of left lower limb; I25.10 Atherosclerotic heart disease of native coronary artery without angina pectoris; L02.415 Cutaneous abscess of right lower limb; Z87.891 Personal history of nicotine dependence
CPT/HCPCS: 80048; 85025; 96365; 99282; A4216; J0295

== ENCOUNTER 2024-02-18 14:05 | Observation (INO) | payer MEDICARE, SELFPAY ==
[2024-02-18] VITALS (8 sets, daily range): BP systolic 156–183; BP diastolic 77–120; PULSE 70–89; RESP 16–22; TEMP 36.2–36.9; O2SAT 92–97; BMI 43.4; BMI 41.9
--- NOTE | 2024-02-18 14:35 | EKG12_ITS ---
Test Reason : Blood Pressure : / mmHG Vent. Rate : 092 BPM Atrial Rate : 074 BPM P-R Int : 000 ms QRS Dur : 070 ms QT Int : 388 ms P-R-T Axes : 000 -61 033 degrees QTc Int : 479 ms Undetermined rhythm , probably NSR at 75 Left axis deviation Cannot rule out Inferior infarct , age undetermined Cannot rule out Anterior infarct , age undetermined Abnormal ECG Baseline artifact Confirmed by Goran Claire ([id number]), web editor CORY CHU ([id number]) on 02/19/2024 10:12:10 AM Referred By: Confirmed By:Goran Claire
--- NOTE | 2024-02-18 14:36 | EX.ED.DYSGE1 ---
HPI History of Present Illness Chief Complaint: Weakness Informant: patient Onset/Context/Timing Onset: Days Context: Gradual Onset Timing: Continuous Current Severity: Moderate Maximum Severity: Moderate Narrative Narrative: 78-year-old male history of diabetes. Extremely hard of hearing. Limited informant. Will speak to his also when she arrives. Reportedly per EMS he had generalized weakness. And has had frequent falls at home. Today he fell x 2. On the second fall assist they brought him into the emergency department. He denies any vomiting or diarrhea. Just that he feels so weak. Prior similar symptoms: Yes Recent Illness/Hospitalization: No [facility] Medical History Abscess of right leg Asbestos exposure Body mass index (BMI) 40.0-44.9, adult Chronic diastolic (congestive) heart failure Chronic venous insufficiency Depression Diabetes mellitus Diabetes mellitus Diabetic ulcer of right lower leg associated with type 2 diabetes mellitus, with fat layer exposed Essential (primary) hypertension Fracture of right tibia and fibula GERD (gastroesophageal reflux disease) GERD (gastroesophageal reflux disease) Gout Heart failure with preserved ejection fraction Hyperlipidemia Hypothyroidism Hypothyroidism Insomnia Low back pain Lumbar spinal stenosis Lymphedema MRSA (methicillin resistant Staphylococcus aureus) infection MRSA bacteremia Neuropathic pain 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 Obesity, morbid, BMI 40.0-49.9 Obstructive sleep apnea EH (obstructive sleep apnea) Osteoarthritis of knees, bilateral Sleep apnea Stasis dermatitis of both legs Tinea unguium Tricuspid valve insufficiency Type 2 diabetes mellitus Type 2 diabetes mellitus with diabetic polyneuropathy Unspecified fracture of shaft of right tibia, sequela Venous stasis dermatitis of right lower extremity Vitamin D deficiency Home Medications paroxetine HCl 40 mg tablet 40 mg PO DAILY depression 09/27/16 [History Last Taken 03/10/19 09:34] potassium chloride 20 mEq tablet,extended release(part/cryst) 20 meq PO BIDCM supplement 09/27/16 [History Last Taken 03/10/19 09:32] doxepin 25 mg capsule 25 mg PO QHS sleep #30 caps 04/24/19 [Rx Last Taken 10/31/23] pantoprazole 40 mg tablet,delayed release 40 mg PO DAILY Gerd #30 tabs 04/24/19 [Rx Last Taken 09/02/19] ergocalciferol (vitamin D2) 1,250 mcg (50,000 unit) capsule 50,000 unit PO QMONTH supplement 08/29/19 [History Last Taken Unknown] insulin glargine 100 unit/mL (3 mL) subcutaneous pen 25 units subcut QHS Diabetes 08/29/19 [History Last Taken Unknown] allopurinol 100 mg tablet 100 mg PO DAILY gout 09/04/19 [Rx Last Taken 10/31/23] metoprolol succinate 25 mg tablet,extended release 24 hr 12.5 mg (1/2 x 25 mg) PO BID BP #90 tabs 03/28/22 [Rx Last Taken Unknown] levothyroxine 137 mcg tablet 137 mcg PO DAILY Thyroid 10/31/23 [History Last Taken Unknown] losartan 100 mg tablet 100 mg PO DAILY BP 10/31/23 [History Last Taken Unknown] acetaminophen 325 mg capsule 650 mg (2 x 325 mg) PO Q6H PRN fever or pain #100 caps 11/15/23 [Rx Last Taken Unknown] alprazolam 0.25 mg tablet 0.25 mg PO TID PRN Anxiety #5 tabs 11/15/23 [Rx Last Taken Unknown] amlodipine 5 mg tablet 5 mg PO BID #60 tabs 11/15/23 [Rx Last Taken Unknown] aspirin 81 mg tablet,delayed release 81 mg PO BREAKFAST #1 TAB 11/15/23 [Rx Last Taken Unknown] clonidine HCl 0.1 mg tablet 0.1 mg PO TID #90 tabs 11/15/23 [Rx Last Taken Unknown] furosemide 40 mg tablet 40 mg PO BIDLX #60 tabs 11/15/23 [Rx Last Taken Unknown] insulin lispro 100 unit/mL subcutaneous pen (Humalog KwikPen (U-100) Insulin) 5 unit (0.05 mL) subcut TIDAC #2 pens 11/15/23 [Rx Last Taken Unknown] linagliptin 5 mg tablet 5 mg PO DAILY #30 tabs 11/15/23 [Rx Last Taken Unknown] sennosides 8.6 mg-docusate sodium 50 mg tablet (Stool Softener-Stimulant Laxative) 2 tab PO BID #60 tabs 11/15/23 [Rx Last Taken Unknown] amoxicillin 875 mg-potassium clavulanate 125 mg tablet 1 tab PO BID 10 days #20 tabs 02/15/24 [Rx Last Taken Unknown] dulaglutide 3 mg/0.5 mL subcutaneous pen injector (Trulicity) mg subcut 02/15/24 [History Last Taken Unknown] insulin lispro 200 unit/mL (3 mL) subcutaneous pen (Humalog KwikPen U-200 Insulin) subcut 02/15/24 [History Last Taken Unknown] Allergy/AdvReac Type Severity Reaction Status Date / Time cocaine Allergy Unknown Verified 02/15/24 15:06 vancomycin Allergy Rash Verified 02/15/24 15:06 atorvastatin calcium AdvReac Pain in Verified 02/15/24 15:06 [From Lipitor] joints Corticosteroids AdvReac ANXIETY, Verified 02/15/24 15:06 (Glucocorticoids) INSOMNIA [steroids] haloperidol [From Haldol] AdvReac Other Verified 02/15/24 15:06 morphine AdvReac Other Verified 02/15/24 15:06 oxycodone [From OxyIR] AdvReac Pain in Verified 02/15/24 15:06 joints prednisone AdvReac ANXIOUS, Verified 02/15/24 15:06 INSOMNIA Family History Mother Hypertension Father Hypertension Surgical History Cochlear implant in place H/O shoulder surgery History of left heart catheterization (08/15/17) History of right knee joint replacement Hx of cholecystectomy Presence of right artificial knee joint Previous back surgery Social History household members: spouse Smoking Status: Former smoker alcohol intake: never substance use type: does not use ROS ROS ED ROS Narrative Very hard of hearing. Limited informant. Denies vomiting, diarrhea or fever. Has had a cough. Review of Systems ROS Unobtainable: Denies due to encephalopathy Constitutional Constitutional ED: Denies chills or fever(s) Eyes Eyes: Denies blurry vision ENT ENT ED: Denies ear pain Cardiovascular Cardiovascular: Denies chest pain Respiratory/Chest Respiratory/Chest: Reports cough Gastrointestinal Gastrointestinal: Denies abdominal pain, constipation, diarrhea, melena, nausea or vomiting Genitourinary Genitourinary ED: Denies dysuria or hematuria Musculoskeletal Musculoskeletal: Denies arthralgias Integumentary Denies abscess Neurologic Neurologic: Denies headache(s) Psychiatric Psychiatric: Denies anxiety or depression Endocrine Endocrinology: Denies cold intolerance Hematologic/Lymphatic Hematologic/Lymphatic: Reports none Allergic/Immunologic Allergic/Immunologic ED: Denies mouth swelling, tongue swelling or urticaria EXAM Physical Exam Narrative Exam Narrative: 78-year-old male vital signs stable afebrile. Pulse ox 95% on room air no signs of hypoxia. He is in no distress. Currently there is no family here as of yet. H EENT exam pupils round react to light. His motions are intact. Moist with membranes. No signs of trauma to his face or scalp. Neck nontender. No lymphadenopathy. Lungs clear to auscultation bilaterally. Heart regular rhythm rate about 90 no murmur. Chest wall and ribs nontender. Abdomen soft nontender. Nondistended normal bowel sounds no peritoneal signs. Moving all 4 extremities. Nontender. No deformity. Multiple skin lesions on his lower extremities with breakdown of the skin. Nontender. No deformity. Bilateral 5-5 fruit raiser strength. Dorsi plantarflexion intact. No hip shortening or rotation. Back nontender. Neurologically he is extremely hard of hearing. He is awake alert. He is answering questions and following commands. When I write him questions he can read them and Hall. He has no focal motor deficits. Const Vital Signs: 02/18/24 14:06 02/18/24 14:08 02/18/24 14:27 Temperature 97.4 F L 97.4 F L Temperature Source Temporal Temporal Pulse Rate 89 89 Respiratory Rate 21 H 21 H Respiratory Effort Short of Breath Respiratory Pattern Tachypnea Blood Pressure 166/101 H 166/101 H Blood Pressure Mean 122 122 Pulse Ox 95 Oxygen Delivery Method Room Air 02/18/24 15:08 02/18/24 15:49 Temperature 98.3 F 97.2 F L Temperature Source Temporal Pulse Rate 74 70 Respiratory Rate 22 H 20 H Respiratory Effort Respiratory Pattern Blood Pressure 176/77 H 170/109 H Blood Pressure Mean 110 129 Pulse Ox 94 95 Oxygen Delivery Method Room Air Positive well nourished, well developed and obese; Negative for cachectic, contractures or unkempt General Appearance ED: well developed and NAD; Negative for unkempt, cachectic, contractures, cyanotic, diaphoretic or pallor Nutritional Appearance: obese; Negative for cachectic HEENT Reports moist mucous membranes; Denies dry mucous membranes Negative for trauma or tenderness Mouth ED: No dry mucous membranes Mouth: No dry mucous membranes Eyes PERRL and EOMs intact bilaterally General Eye ED: Negative for pale conjunctiva or scleral icterus Neck no lymphadenopathy, supple and no JVD General: Negative for tenderness Lymph Lymphatic: Negative for other Chest Wall inspection of chest normal and palpation of chest normal Chest: Negative for other Resp normal respiratory effort and clear to auscultation bilaterally Effort and Inspection: Negative for retractions Auscultation: Negative for rales, rhonchi or wheezes Cardio regular rate, regular rhythm, S1 normal heart sound, S2 normal heart sound and no murmurs Palpation: Negative for palpable S3 or palpable S4 Rate: Negative for bradycardia, tachycardic or other Rhythm: Negative for abnormal rhythm GI normal to inspection, nondistended, normoactive bowel sounds, non-tender, non-distended and no masses Inspection: Negative for abdominal distention Auscultation: normoactive bowel sounds Palpation: soft; Negative for tender or guarding Back/Spine no CVA tenderness General Back: Negative for CVA tenderness Cervical Spine: Negative for cervical spine tenderness Thoracic Spine / Upper Back: Negative for thoracic spinal tenderness Lumbar Spine / Lower Back: Negative for lumbar spinal tenderness Extremity Negative for normal to inspection Extremity Narrative: Bilateral lower extremity soft tissue breakdown. General Extremety ED: Yes edema; Negative for tenderness General Extremity: edema Neuro oriented x3 and CN's II-XII intact bilaterally Sensorium / Orientation: alert; Negative for orientation impaired, lethargic or stuporous Motor Exam: strength 5/5 throughout; Negative for general weakness Psych Appearance: Negative for unkempt Attitude: No agitated Mood & Affect: Negative for depressed, anxious or tearful Skin no rashes or lesions noted and no wounds General Skin Exam: Negative for jaundice or pallor Lesions: No lesion noted Rashes: No rashes noted Trauma: Negative for abrasion Wounds: Negative for wounds noted MDM MDM MDM Narrative Medical decision making narrative: 78-year-old male generalized weakness with frequent falls and fell x 2 today. General screening labs. And will need admission possible placement. Awaiting his family's arrival to get further history. Repeat exam at 3:20 PM unchanged. Patient is too weak to ambulate. The hospitalist on page for admission. Patient's is present in the room. She said he is fallen at least 6 times in the last several days. She has had the local paramedics out multiple times to help lift him. She also states that his cochlear implant does work and she replaced the battery recently but I explained to her it does not seem to be hearing is at all. History & Record Review Discussion w/independent historian: Patient Additional record(s) reviewed:: Prior inpatient record, Prior outpatient record, Prior ED visit and Prior labs Lab Data Attestation: I reviewed the patient's lab results. Lab results narrative: CBC shows white count 12.5. H&H 12.6 and 38. Platelets 44. Electrolytes show gap of 9. BUN 23 creatinine 1. Glucose 115. Chest x-ray chronic changes no acute process. COVID, flu and RSV negative. UA still pending. We obtained an EKG but it is because a lot of artifact on it there is really no significant read you can obtain from the due to the all of the artifact. Labs: Laboratory Results - last 24 hr 02/18/24 14:40 WBC 12.5 H RBC 4.64 Hgb 12.6 L Hct 38.8 L MCV 83.6 MCH 27.2 MCHC 32.5 RDW Std Deviation 46.5 H RDW Coeff of Geovanni 15.5 H Plt Count 484 H MPV 9.4 Immature Gran % (Auto) 0.800 Neut % (Auto) 74.5 H Lymph % (Auto) 16.0 L [place] % (Auto) 7.8 Eos % (Auto) 0.6 Baso % (Auto) 0.3 Absolute Neuts (auto) 9.3 H Absolute Lymphs (auto) 2.00 Nucleated RBC % 0 Sodium 141 Potassium 3.6 Chloride 108 H Carbon Dioxide 24.0 Anion Gap 9 BUN 23 H Creatinine 1.07 Estim Creat Clear Calc 74.78 Est GFR (MDRD) Af Amer 86 Est GFR (MDRD) Non-Af 71 BUN/Creatinine Ratio 21.5 H Glucose 115 H Calcium 9.1 Radiography Chest X-Ray - ED: 1 View, Read by ED Physician, Heart, Lungs, Mediastinum, Bony Structures, No Acute Disease and Chronic Changes Diagnostic Testing: Clinical Impression(s) from Imaging Studies Chest X-Ray 02/18/24 14:50 IMPRESSION: Cardiomegaly with low volume inspiration and no acute or active cardiopulmonary disease. Electronically Signed: Kian Del Toro MD at 15:05 EDT , Chest x-ray, portable, single view, interpreted by myself and radiologist. Chronic changes. No acute process. No pneumonia. No pneumothorax. Borderline cardiomegaly. Poor inspiratory effort. Discharge Plan Dx/Rx/DC Orders Clinical Impression: Generalized weakness, History of diabetes mellitus, Falls, Unable to ambulate Disposition Disposition: Acute Care Hospital [facility]
[2024-02-18 14:50] LABS: Absolute Neutrophil Count 9.3 X10^3/uL (2.0-7.7); Basophil# 0.04 X10^3/uL; Basophil% 0.3 % (0-1); Eosinophil# 0.08 X10^3/uL; Eosinophils% 0.6 % (0-5); Hematocrit 38.8 % (40-54); Hemoglobin 12.6 g/dL (13.0-16.5); Mean Corp Hgb Conc 32.5 g/dL (32-36); Mean Corpuscular Hgb 27.2 pg (27.0-32.0); Mean Corpuscular Volume 83.6 fL (80-94); Mean Platelet Vol. 9.4 fl (6.2-12.0); Monocyte# 0.98 X10^3/uL; Monocyte% 7.8 % (0-10); NRBC Flagged by Analyzer 0 % (0-5); Neutrophil # 9.29 X10^3/uL (2.7-7.7); Neutrophil % 74.5 % (47-70); Platelet Count 484 K/mm3 (150-450); RBC Distribution Width CV 15.5 % (11.6-14.6); RBC Distribution Width SD 46.5 fl (35.1-43.9); Red Blood Count 4.64 M/mm3 (4.6-6.2); White Blood Count 12.5 K/mm3 (4.4-11.0)
--- NOTE | 2024-02-18 14:50 | RAD_ITS ---
STUDY: X-RAY CHEST REASON FOR EXAM: Male, 78 years old. Weakness. TECHNIQUE: Single frontal view of the chest. COMPARISON: None. FINDINGS: Low volume inspiration. There is no demonstrated pleural abnormality. Cardiomegaly. Normal mediastinum and ervin. Normal visualized pulmonary arteries. Normal visualized aortic arch and descending thoracic aorta. No abnormality of the visualized soft tissue structures of the upper abdomen. RAD/Chest 1 View (Portable) IMPRESSION: Cardiomegaly with low volume inspiration and no acute or active cardiopulmonary disease. Electronically Signed: Kian Del Toro MD at 15:05 EDT ,
[2024-02-18 15:15] LABS: Anion Gap 9 (5-15); BUN 23 mg/dL (7-18); BUN/Creat Ratio 21.5 RATIO (10-20); Calcium,Total 9.1 mg/dL (8.5-10.1); Chloride 108 mmol/L (98-107); Creatinine, Serum 1.07 mg/dL (0.70-1.30); EST Glomerular Filtration Rate 71 mL/min (>60); Est Glom Filt Rate - Afr Amer 86 mL/min (>60); Estimated Creatinine Clearance 74.78 ml/min; Glucose 115 mg/dL (74-106); Potassium 3.6 mmol/L (3.5-5.1); Sodium Level 141 mmol/L (136-145)
--- NOTE | 2024-02-18 17:18 | NURSING ---
limited history completed, pt is very hard of hearing.
[2024-02-18] MEDS: Insulin Lispro 100 UNIT/ML INSULN.PEN SC (17:36)
[2024-02-18] MEDS: Potassium Chloride Oral Tablet 20 MEQ PO (17:36)
[2024-02-18] MEDS: Acetaminophen 325 MG Tablet 650 MG PO ×2 (17:36→23:57)
[2024-02-18 17:42] LABS: Bedside Glucose 92 mg/dL (74-106)
--- NOTE | 2024-02-18 20:54 | PCM.HP.STD ---
HPI - General General Date of Admission: 02/18/24 Date of Service: 02/18/24 Chief Complaint: Generalized debility HPI Narrative PAYTON GONZALES, is a 78 M who presents to the emergency room at [facility] after being brought in by his family due to generalized debility, patient's not been able to walk independently and his is unable to care for him at the present time. Workup in the emergency room included a CBC which showed an elevated white blood cell count at 12.5, hemoglobin was 12.6, BUN was slightly elevated at 23, and chest x-ray was performed which showed cardiomegaly and no acute or active cardiopulmonary disease. I could not communicate with the patient due to his severe hearing loss, patient has a cochlear implant. Patient will be placed in observation status on [facility] 3, he will be seen by PT and OT, he may need short-term placement in a snf facility. [facility] Medical History Abscess of right leg Asbestos exposure Body mass index (BMI) 40.0-44.9, adult Chronic diastolic (congestive) heart failure Chronic venous insufficiency Depression Diabetes mellitus Diabetes mellitus Diabetic ulcer of right lower leg associated with type 2 diabetes mellitus, with fat layer exposed Essential (primary) hypertension Fracture of right tibia and fibula GERD (gastroesophageal reflux disease) GERD (gastroesophageal reflux disease) Gout Heart failure with preserved ejection fraction Hyperlipidemia Hypothyroidism Hypothyroidism Insomnia Low back pain Lumbar spinal stenosis Lymphedema MRSA (methicillin resistant Staphylococcus aureus) infection MRSA bacteremia Neuropathic pain 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 Obesity, morbid, BMI 40.0-49.9 Obstructive sleep apnea EH (obstructive sleep apnea) Osteoarthritis of knees, bilateral Sleep apnea Stasis dermatitis of both legs Tinea unguium Tricuspid valve insufficiency Type 2 diabetes mellitus Type 2 diabetes mellitus with diabetic polyneuropathy Unspecified fracture of shaft of right tibia, sequela Venous stasis dermatitis of right lower extremity Vitamin D deficiency Home Medications paroxetine HCl 40 mg tablet 40 mg PO DAILY depression 09/27/16 [History Last Taken 03/10/19 09:34] potassium chloride 20 mEq tablet,extended release(part/cryst) 20 meq PO BIDCM supplement 09/27/16 [History Last Taken 03/10/19 09:32] doxepin 25 mg capsule 25 mg PO QHS sleep #30 caps 04/24/19 [Rx Last Taken 10/31/23] pantoprazole 40 mg tablet,delayed release 40 mg PO DAILY Gerd #30 tabs 04/24/19 [Rx Last Taken 09/02/19] ergocalciferol (vitamin D2) 1,250 mcg (50,000 unit) capsule 50,000 unit PO QMONTH supplement 08/29/19 [History Last Taken Unknown] insulin glargine 100 unit/mL (3 mL) subcutaneous pen 25 units subcut QHS Diabetes 08/29/19 [History Last Taken Unknown] allopurinol 100 mg tablet 100 mg PO DAILY gout 09/04/19 [Rx Last Taken 10/31/23] metoprolol succinate 25 mg tablet,extended release 24 hr 12.5 mg (1/2 x 25 mg) PO BID BP #90 tabs 03/28/22 [Rx Last Taken Unknown] levothyroxine 137 mcg tablet 137 mcg PO DAILY Thyroid 10/31/23 [History Last Taken Unknown] losartan 100 mg tablet 100 mg PO DAILY BP 10/31/23 [History Last Taken Unknown] acetaminophen 325 mg capsule 650 mg (2 x 325 mg) PO Q6H PRN fever or pain #100 caps 11/15/23 [Rx Last Taken Unknown] alprazolam 0.25 mg tablet 0.25 mg PO TID PRN Anxiety #5 tabs 11/15/23 [Rx Last Taken Unknown] amlodipine 5 mg tablet 5 mg PO BID #60 tabs 11/15/23 [Rx Last Taken Unknown] aspirin 81 mg tablet,delayed release 81 mg PO BREAKFAST #1 TAB 11/15/23 [Rx Last Taken Unknown] clonidine HCl 0.1 mg tablet 0.1 mg PO TID #90 tabs 11/15/23 [Rx Last Taken Unknown] furosemide 40 mg tablet 40 mg PO BIDLX #60 tabs 11/15/23 [Rx Last Taken Unknown] insulin lispro 100 unit/mL subcutaneous pen (Humalog KwikPen (U-100) Insulin) 5 unit (0.05 mL) subcut TIDAC #2 pens 11/15/23 [Rx Last Taken Unknown] linagliptin 5 mg tablet 5 mg PO DAILY #30 tabs 11/15/23 [Rx Last Taken Unknown] sennosides 8.6 mg-docusate sodium 50 mg tablet (Stool Softener-Stimulant Laxative) 2 tab PO BID #60 tabs 11/15/23 [Rx Last Taken Unknown] amoxicillin 875 mg-potassium clavulanate 125 mg tablet 1 tab PO BID 10 days #20 tabs 02/15/24 [Rx Last Taken Unknown] dulaglutide 3 mg/0.5 mL subcutaneous pen injector (Trulicity) mg subcut 02/15/24 [History Last Taken Unknown] insulin lispro 200 unit/mL (3 mL) subcutaneous pen (Humalog KwikPen U-200 Insulin) subcut 02/15/24 [History Last Taken Unknown] Allergy/AdvReac Type Severity Reaction Status Date / Time cocaine Allergy Unknown Verified 02/15/24 15:06 vancomycin Allergy Rash Verified 02/15/24 15:06 atorvastatin calcium AdvReac Pain in Verified 02/15/24 15:06 [From Lipitor] joints Corticosteroids AdvReac ANXIETY, Verified 02/15/24 15:06 (Glucocorticoids) INSOMNIA [steroids] haloperidol [From Haldol] AdvReac Other Verified 02/15/24 15:06 morphine AdvReac Other Verified 02/15/24 15:06 oxycodone [From OxyIR] AdvReac Pain in Verified 02/15/24 15:06 joints prednisone AdvReac ANXIOUS, Verified 02/15/24 15:06 INSOMNIA Family History Mother Hypertension Father Hypertension Surgical History Cochlear implant in place H/O shoulder surgery History of left heart catheterization (08/15/17) History of right knee joint replacement Hx of cholecystectomy Presence of right artificial knee joint Previous back surgery Social History household members: spouse Smoking Status: Former smoker alcohol intake: never substance use type: does not use ROS ROS Narrative Review of systems could not be obtained from the patient due to his extreme hearing loss, information was obtained from patient's family who were present at the time of my examination. Review of Systems ROS Unobtainable: other Vital Signs Vital Signs Vital Signs: 02/18/24 14:06 02/18/24 14:08 02/18/24 14:27 Temperature 97.4 F L 97.4 F L Temperature Source Temporal Temporal Pulse Rate 89 89 Pulse Strength Respiratory Rate 21 H 21 H Respiratory Effort Short of Breath Respiratory Depth Respiratory Pattern Tachypnea Blood Pressure 166/101 H 166/101 H Blood Pressure Mean 122 122 Blood Pressure Source Blood Pressure Position Blood Pressure Location Pulse Ox 95 Oxygen Delivery Method Room Air 02/18/24 15:08 02/18/24 15:49 02/18/24 16:05 Temperature 98.3 F 97.2 F L Temperature Source Temporal Pulse Rate 74 70 74 Pulse Strength Respiratory Rate 22 H 20 H 21 H Respiratory Effort Respiratory Depth Respiratory Pattern Blood Pressure 176/77 H 170/109 H 156/120 H Blood Pressure Mean 110 129 132 Blood Pressure Source Blood Pressure Position Blood Pressure Location Pulse Ox 94 95 97 Oxygen Delivery Method Room Air Room Air 02/18/24 17:49 02/18/24 17:49 02/18/24 18:06 Temperature 98 F Temperature Source Oral Pulse Rate 71 Pulse Strength Weak (1+) Respiratory Rate 16 Respiratory Effort Normal Respiratory Depth Normal Respiratory Pattern Normal Blood Pressure 156/82 H Blood Pressure Mean 106 Blood Pressure Source Monitor Blood Pressure Position Semi-Fowlers Blood Pressure Location Left Arm Pulse Ox 97 Oxygen Delivery Method Room Air Room Air Weight Weight: 125.101 kg Body Mass Index (BMI) 41.9 Physical Exam Const alert and no apparent distress Constitutional Narrative: Patient is morbidly obese General Appearance: well kempt and well developed Orientation / Consciousness: awake HEENT normocephalic, head/scalp atraumatic and moist oral mucous membranes HEENT Narrative: Patient has severe hearing loss Eyes PERRL, EOMs intact bilaterally and conjunctivae normal Neck supple, no JVD, thyroid normal and no carotid bruits General: trachea midline Resp normal respiratory effort, no retractions, no use of accessory muscles and clear to auscultation bilaterally Auscultation: Negative for rales, rhonchi or wheezes Cardio regular rate, regular rhythm, S1 normal heart sound, S2 normal heart sound, no murmurs, no rub and no gallops GI normal to inspection, nondistended, normoactive bowel sounds, soft to palpation, non-tender and non-distended GI Narrative: Patient is morbidly obese Extremity Extremity Narrative: Patient has severe edema over both lower extremities with his lower legs weeping fluid, there are bullous areas of fluid pockets over the patient's lower legs, there is some slight redness of the legs but no purulent discharge is noted Skin Skin Narrative: Patient has skin breakdown over his lower legs bilaterally Neuro Neuro Narrative: Patient is extremely hard of hearing and it is almost impossible to communicate with the patient Sensorium / Orientation: awake and alert Psych Psych Narrative: Patient does not appear agitated or anxious Results Lab / Micro Data 02/18/24 14:40 02/18/24 14:40 Labs: Laboratory Results - last 24 hr 02/18/24 14:40: WBC 12.5 H, RBC 4.64, Hgb 12.6 L, Hct 38.8 L, MCV 83.6, MCH 27.2, MCHC 32.5, RDW Std Deviation 46.5 H, RDW Coeff of Geovanni 15.5 H, Plt Count 484 H, MPV 9.4, Immature Gran % (Auto) 0.800, Neut % (Auto) 74.5 H, Lymph % (Auto) 16.0 L, [place] % (Auto) 7.8, Eos % (Auto) 0.6, Baso % (Auto) 0.3, Absolute Neuts (auto) 9.3 H, Absolute Lymphs (auto) 2.00, Nucleated RBC % 0, Sodium 141, Potassium 3.6, Chloride 108 H, Carbon Dioxide 24.0, Anion Gap 9, BUN 23 H, Creatinine 1.07, Estim Creat Clear Calc 74.78, Est GFR (MDRD) Af Amer 86, Est GFR (MDRD) Non-Af 71, BUN/Creatinine Ratio 21.5 H, Glucose 115 H, Calcium 9.1 02/18/24 17:08: POC Glucose 92 Micro: Microbiology 02/18/24 14:47 Mucosa - Nose SARS-CoV-2, Influenza & RSV (PCR) - Final Imaging Radiology Impression Chest X-Ray 02/18/24 14:50 IMPRESSION: Cardiomegaly with low volume inspiration and no acute or active cardiopulmonary disease. Electronically Signed: Kian Del Toro MD at 15:05 EDT , Assessment & Plan Assessment/Plan (1) Unable to ambulate: PLAN: Plan 1. Acute debility-secondary to morbid obesity and multiple medical problems-patient will be placed in observation status on [facility] 3, he will be seen by PT and OT, case management will see the patient regarding possible skilled placement #2 severe edema of the lower extremities with skin breakdown-patient will be placed on IV Lasix and attempt to remove fluid from lower extremity, patient will be seen by the wound care nurse #3 severe hearing loss-complicates care, management, recovery, and prognosis #4 essential hypertension-patient will remain on his current home medications, blood pressure will be monitored and medicines will be adjusted if needed #5 chronic anxiety-patient is on Xanax as needed #6 hypothyroidism-patient will remain on Synthroid #7 morbid obesity-complicates care, management, recovery, and prognosis Total clinical time spent by myself addressing the patient's medical issues, reviewing all of his data, and collaborating with patient's care team: 55 minutes Charges/Coding Visit Charges Inpatient E&M: 71951 Init Hosp L2
[2024-02-18] MEDS: Menthol/Lanolin/Calamine/Znox 113 GM Tube 1 APPLIC TOPICAL (21:59)
[2024-02-18] MEDS: Nystatin Powder 15gm Bottle 1 APPLIC TOPICAL (21:59)
[2024-02-18] MEDS: Furosemide 20 MG/2 ML VIAL IV (22:00)
[2024-02-18] MEDS: Insulin Glargine-YFGN 100 UNIT/ML Pen 25 UNIT SC (22:00)
[2024-02-18] MEDS: Senna/Docusate Sodium 1 Tablet 2 TABLET PO (22:01)
[2024-02-18] MEDS: amLODIPine 5 MG Tablet PO (22:01)
[2024-02-18] MEDS: Doxepin Hcl 25 MG Capsule PO (22:01)
[2024-02-18] MEDS: Metoprolol(XL)Succ 25 MG Tablet 12.5 MG PO (22:01)
[2024-02-18] MEDS: cloNIDine HCl 0.1 MG Tablet PO (22:02)
[2024-02-18] MEDS: Heparin Injection (Vial) 5,000 UNIT/ML VIAL 5000 UNIT SC (22:02)
[2024-02-18] MEDS: ALPRAZolam 0.25 MG Tablet PO (22:13)
[2024-02-19] VITALS (8 sets, daily range): BP systolic 121–183; BP diastolic 59–91; PULSE 56–87; RESP 16–20; TEMP 36.8–37.2; O2SAT 96
[2024-02-19 00:01] LABS: Bedside Glucose 142 mg/dL (74-106)
[2024-02-19] MEDS: cloNIDine HCl 0.1 MG Tablet PO ×3 (05:38→23:13)
[2024-02-19] MEDS: Furosemide 20 MG/2 ML VIAL IV ×3 (05:38→23:16)
[2024-02-19] MEDS: Levothyroxine 137 MCG Tablet PO (05:38)
[2024-02-19] MEDS: Acetaminophen 325 MG Tablet 650 MG PO ×3 (05:46→23:15)
[2024-02-19 06:54] LABS: Absolute Lymphocyte Count 1.96 X10^3/uL (0.83-4.51); Absolute Neutrophil Count 7.9 X10^3/uL (2.0-7.7); Basophil# 0.05 X10^3/uL; Basophil% 0.5 % (0-1); Eosinophil# 0.08 X10^3/uL; Eosinophils% 0.7 % (0-5); Hematocrit 37.6 % (40-54); Hemoglobin 11.8 g/dL (13.0-16.5); Lymphocyte # 1.96 X10^3/ul (0.83-4.51); Lymphocyte % 17.9 % (19-41); Mean Corp Hgb Conc 31.4 g/dL (32-36); Mean Corpuscular Hgb 26.2 pg (27.0-32.0); Mean Corpuscular Volume 83.4 fL (80-94); Mean Platelet Vol. 9.8 fl (6.2-12.0); Monocyte# 0.91 X10^3/uL; Monocyte% 8.3 % (0-10); NRBC Flagged by Analyzer 0 % (0-5); Neutrophil # 7.91 X10^3/uL (2.7-7.7); Neutrophil % 72.1 % (47-70); Platelet Count 470 K/mm3 (150-450); RBC Distribution Width CV 15.6 % (11.6-14.6); RBC Distribution Width SD 46.5 fl (35.1-43.9); Red Blood Count 4.51 M/mm3 (4.6-6.2)
--- NOTE | 2024-02-19 07:46 | PCM.PN.HOSP ---
Reason for Visit Reason for Visit: Diagnoses Difficulty in walking, not elsewhere classified (02/18/24) Subjective Subjective Patient is a 78-year-old gentleman with multiple medical comorbidities who was brought to the emergency department with progressive generalized weakness and frequent falls and assessment of adult failure to thrive made admitted to regular nursing floor with consultation placed to case management to assist with disposition Objective Data Objective Data Vital Signs: Vital Signs Temp Pulse Resp BP Pulse Ox O2 Del Method 98.8 F 87 18 164/63 H 96 Room Air 02/19/24 04:11 02/19/24 05:42 02/19/24 04:11 02/19/24 05:42 02/19/24 04:11 02/19/24 04:11 Oxygen Delivery Method Room Air Weight: 125.101 kg Body Mass Index (BMI) 41.9 Intake & Output: Intake and Output for Last 24 Hours 02/17/24 02/18/24 02/19/24 23:59 23:59 23:59 Intake Total 100 / 100 900 / 900 Output Total 400 / 400 1200 / 1200 Balance -300 / -300 -300 / -300 Lab / Micro Data 02/19/24 06:21 02/19/24 06:21 Labs: Laboratory Results - last 24 hr 02/18/24 14:40: WBC 12.5 H, RBC 4.64, Hgb 12.6 L, Hct 38.8 L, MCV 83.6, MCH 27.2, MCHC 32.5, RDW Std Deviation 46.5 H, RDW Coeff of Geovanni 15.5 H, Plt Count 484 H, MPV 9.4, Immature Gran % (Auto) 0.800, Neut % (Auto) 74.5 H, Lymph % (Auto) 16.0 L, [place] % (Auto) 7.8, Eos % (Auto) 0.6, Baso % (Auto) 0.3, Absolute Neuts (auto) 9.3 H, Absolute Lymphs (auto) 2.00, Nucleated RBC % 0, Sodium 141, Potassium 3.6, Chloride 108 H, Carbon Dioxide 24.0, Anion Gap 9, BUN 23 H, Creatinine 1.07, Estim Creat Clear Calc 74.78, Est GFR (MDRD) Af Amer 86, Est GFR (MDRD) Non-Af 71, BUN/Creatinine Ratio 21.5 H, Glucose 115 H, Calcium 9.1 02/18/24 17:08: POC Glucose 92 02/18/24 21:58: POC Glucose 142 H 02/19/24 06:21: WBC 11.0, RBC 4.51 L, Hgb 11.8 L, Hct 37.6 L, MCV 83.4, MCH 26.2 L, MCHC 31.4 L, RDW Std Deviation 46.5 H, RDW Coeff of Geovanni 15.6 H, Plt Count 470 H, MPV 9.8, Immature Gran % (Auto) 0.500, Neut % (Auto) 72.1 H, Lymph % (Auto) 17.9 L, [place] % (Auto) 8.3, Eos % (Auto) 0.7, Baso % (Auto) 0.5, Absolute Neuts (auto) 7.9 H, Absolute Lymphs (auto) 1.96, Nucleated RBC % 0 Micro: Microbiology 02/18/24 14:47 Mucosa - Nose SARS-CoV-2, Influenza & RSV (PCR) - Final Radiography Diagnostic Testing: Radiology Impression Chest X-Ray 02/18/24 14:50 IMPRESSION: Cardiomegaly with low volume inspiration and no acute or active cardiopulmonary disease. Electronically Signed: Kian Del Toro MD at 15:05 EDT , Physical Exam Narrative GENERAL: cooperative HEENT: Atraumatic; normocephalic EYES; Anicteric, Normal Conjunctiva NECK; supple, normal thyroid, RESPIRATORY: Diminished to auscultation CARDIOVASCULAR: Regular S1 S2, GI: soft, normoactive bowel sounds, : No Renal angle tenderness; EXTREMITIES: Bilateral lower extremities wrapped MUSCULOSKELETAL: no muscle wasting NEURO: Awake; no lateralizing signs. SKIN: No Rash PSYCH; Flat affect Assessment & Plan Assessment/Plan (1) Unable to ambulate: PLAN: Plan Patient is a 78-year-old gentleman with multiple medical comorbidities who was brought to the emergency department with progressive generalized weakness and frequent falls and assessment of adult failure to thrive made admitted to regular nursing floor with consultation placed to case management to assist with disposition 1. Physical deconditioning - Requested for PT OT eval and criminal justice social worker to assist with discharge planning 2. Bilateral stasis dermatitis ? Consult placed to wound care nurse 3. Hypothyroidism - Patient is on levothyroxine home dose continued 4. Diabetes mellitus type II -patient's oral hypoglycemics held. Placed on long acting insulin, Accu-Cheks a.c. and at bedtime and covered with sliding scale insulin 5. Dyslipidemia -Patient is on statin therapy, continued at home dose 6. Gout ? Patient is on allopurinol next 7. Hearing impairment ? With history of cochlear implant 8. Obstructive sleep apnea ? PAP therapy at night 9. GERD 10. Spinal lumbar stenosis 11. Generalized osteoarthritis 12. Class III obesity with BMI of 42 ? Complicating care weight loss advised 13. Depression with anxiety Dilated continue home meds 14. DVT prophylaxis ? SC heparin Time spent in the patient's overall evaluation,decision-making process, review of diagnostic data, adjustment of management, discussion with other providers, nursing nursing and ancillary staff involved in patient's care documentation, 35 minutes Charges/Coding Visit Charges Inpatient E&M: 77587 Subs Hosp L2
[2024-02-19 07:53] LABS: Anion Gap 6 (5-15); BUN 15 mg/dL (7-18); BUN/Creat Ratio 18.6 RATIO (10-20); Calcium,Total 9.1 mg/dL (8.5-10.1); Chloride 108 mmol/L (98-107); Creatinine, Serum 0.81 mg/dL (0.70-1.30); EST Glomerular Filtration Rate 98 mL/min (>60); Est Glom Filt Rate - Afr Amer 119 mL/min (>60); Estimated Creatinine Clearance 96.83 ml/min; Glucose 103 mg/dL (74-106); Potassium 3.1 mmol/L (3.5-5.1); Sodium Level 142 mmol/L (136-145)
[2024-02-19 08:11] LABS: Bedside Glucose 124 mg/dL (74-106)
[2024-02-19] MEDS: Morphine 2 MG/ML Syringe IV (08:31)
[2024-02-19] MEDS: Insulin Lispro 100 UNIT/ML INSULN.PEN SC ×6 (08:33→23:28)
[2024-02-19] MEDS: Metoprolol(XL)Succ 25 MG Tablet 12.5 MG PO ×2 (08:35→23:14)
[2024-02-19] MEDS: Allopurinol 100 MG Tablet PO (08:35)
[2024-02-19] MEDS: Aspirin E.C. 81 MG Tablet PO (08:35)
[2024-02-19] MEDS: Paroxetine 20 MG Tablet 40 MG PO (08:36)
[2024-02-19] MEDS: Pantoprazole Sodium 40 MG Tablet PO (08:36)
[2024-02-19] MEDS: Losartan Potassium 100 MG Tablet PO (08:36)
[2024-02-19] MEDS: Heparin Injection (Vial) 5,000 UNIT/ML VIAL 5000 UNIT SC ×2 (08:37→23:16)
[2024-02-19] MEDS: amLODIPine 5 MG Tablet PO ×2 (08:37→23:14)
[2024-02-19] MEDS: Nystatin Powder 15gm Bottle 1 APPLIC TOPICAL ×2 (08:38→23:17)
[2024-02-19] MEDS: Potassium Chloride Oral Tablet 20 MEQ PO ×2 (08:38→16:12)
[2024-02-19] MEDS: Menthol/Lanolin/Calamine/Znox 113 GM Tube 1 APPLIC TOPICAL ×2 (08:38→23:17)
[2024-02-19] MEDS: Glucerna Shake 120 ML LIQUID PO (08:45)
--- NOTE | 2024-02-19 09:14 | WOUNDNOTE ---
wound photo: right lower leg
--- NOTE | 2024-02-19 09:14 | WOUNDNOTE ---
wound photo: left lower leg
--- NOTE | 2024-02-19 09:41 | CASEMGMT ---
Discharge Planning A list of?SNF providers including quality and resource use data and consistent with the patient's preferred geographic region, medical needs, and insurance network was created in [employer] Guide.? This list was provided to the SW. Kristina Marmolejo Discharge Planning Asst.
--- NOTE | 2024-02-19 10:19 | CASEMGMT ---
JOSELITO GALARZA Assessment Face to Face with patient for initial transition planning/care coordination assessment. JOSELITO GALARZA introduced self and role at [facility], pt is very [place] and does not have his hearing aides currently. TC to the pt VIGNESH () at this time. Pt states that she is agreeable to answering this RN GEOVANNI questions. Pt states that she will be coming in later today and will be bringing in the pt hearing devices with batteries. Care providers, pharmacy, and demographics verified. Admitting dx: Debility LACE Strata: 3 PCP: Liam Specialists: Denies Preferred Pharmacy: [facility] Insurance: AARP MCR ADV Prescription Benefit: Yes LNOK: Mayda Rosa () Living Arrangements: Pt lives with his in a single story home with a BM with HR with a ramp to enter. Pt states that neither of them use the BM. ADLs/IADLs: assists. Pt states that she is unable to care for the patients needs anymore and is concerned about the pt coming home. Transportation: Insurance DME: Lift chair. BMG with enough supplies to check BS. FWW. BSC. Pt states that the pt does not shower or bath. Pt states that the pt lives in his lift chair and only moves to the BSC. Pt states that the Aide assists with cleaning the pt at home when they are there. HHC/SNF: Pt is active with [facility] TC to [facility] and [facility] states that the pt is currently active with SN and Aide assistance. [facility] states that PT and OT services were discontinued on 02/13. This RN CM updated [facility] with pt current status and POC. Pt also reports that the pt has a history at the TCU. Pt?s goal: TCU Plan: Pt 6-click is 8. PT/OT evals are pending. Pt states that she wants the pt to be admitted to the TCU at time of DC. JENNIFER and updated. SW to make referral to TCU. Pt educated that if the pt does not get accepted to the TCU we will provide a list of other SNF that are in network with the pt insurances. Pt agrees with this plan. SW to follow for safe DC from [facility]. Refugio Dupree RN, CM
[2024-02-19] MEDS: 0.9% Saline Lock 10 ML Syringe IV ×3 (11:27→23:26)
[2024-02-19 12:52] LABS: Bedside Glucose 206 mg/dL (74-106)
--- NOTE | 2024-02-19 16:00 | CASEMGMT ---
Spoke with patients to complete SALOMON form. SALOMON form explained to who voiced understanding and signed form. Original form placed in pt?s chart and copy placed in patients room. Kristina Marmolejo, Discharge Planning Asst
[2024-02-19] MEDS: Juven (unflavored) Packet 1 PACKET PO (16:12)
[2024-02-19 16:34] LABS: Bedside Glucose 156 mg/dL (74-106)
[2024-02-19] MEDS: Doxepin Hcl 25 MG Capsule PO (23:14)
[2024-02-19] MEDS: Insulin Glargine-YFGN 100 UNIT/ML Pen 25 UNIT SC (23:28)
[2024-02-20 00:36] LABS: Bedside Glucose 194 mg/dL (74-106)
[2024-02-20 05:23] VITALS: BP 164/76; PULSE 65; RESP 20; TEMP 36.6; O2SAT 96
[2024-02-20] MEDS: Furosemide 20 MG/2 ML VIAL IV (05:28)
[2024-02-20] MEDS: 0.9% Saline Lock 10 ML Syringe IV (05:28)
[2024-02-20] MEDS: Levothyroxine 137 MCG Tablet PO (05:28)
[2024-02-20] MEDS: cloNIDine HCl 0.1 MG Tablet PO (05:28)
[2024-02-20] MEDS: Acetaminophen 325 MG Tablet 650 MG PO (05:51)
[2024-02-20 07:35] VITALS: BP 162/81; PULSE 64; RESP 16; TEMP 36.7; O2SAT 97
--- NOTE | 2024-02-20 07:50 | PCM.PN.HOSP ---
Reason for Visit Reason for Visit: Diagnoses Difficulty in walking, not elsewhere classified (02/18/24) Subjective Subjective Patient seen no significant change in his clinical condition awaiting insurance approval prior to transfer to prison facility Objective Data Objective Data Vital Signs: Vital Signs Temp Pulse Resp BP Pulse Ox O2 Del Method 98.0 F 64 16 162/81 H 97 Room Air 02/20/24 07:35 02/20/24 07:35 02/20/24 07:35 02/20/24 07:35 02/20/24 07:35 02/20/24 07:35 Oxygen Delivery Method Room Air Weight: 125.101 kg Body Mass Index (BMI) 41.9 Intake & Output: Intake and Output for Last 24 Hours 02/18/24 02/19/24 02/20/24 23:59 23:59 23:59 Intake Total 100 / 100 1850 / 1850 Output Total 400 / 400 2600 / 2600 600 / 600 Balance -300 / -300 -750 / -750 -600 / -600 Lab / Micro Data 02/19/24 06:21 02/19/24 06:21 Labs: Laboratory Results - last 24 hr 02/19/24 06:21: Sodium 142, Potassium 3.1 L, Chloride 108 H, Carbon Dioxide 28.0, Anion Gap 6, BUN 15, Creatinine 0.81, Estim Creat Clear Calc 96.83, Est GFR (MDRD) Af Amer 119, Est GFR (MDRD) Non-Af 98, BUN/Creatinine Ratio 18.6, Glucose 103, Calcium 9.1 02/19/24 07:50: POC Glucose 124 H 02/19/24 11:21: POC Glucose 206 H 02/19/24 16:09: POC Glucose 156 H 02/19/24 23:22: POC Glucose 194 H Micro: Microbiology 02/18/24 14:47 Mucosa - Nose SARS-CoV-2, Influenza & RSV (PCR) - Final Physical Exam Narrative GENERAL: cooperative HEENT: Atraumatic; normocephalic EYES; Anicteric, Normal Conjunctiva NECK; supple, normal thyroid, RESPIRATORY: Diminished to auscultation CARDIOVASCULAR: Regular S1 S2, GI: soft, normoactive bowel sounds, : No Renal angle tenderness; EXTREMITIES: Bilateral lower extremities wrapped MUSCULOSKELETAL: no muscle wasting NEURO: Awake; no lateralizing signs. SKIN: No Rash PSYCH; Flat affect Assessment & Plan Assessment/Plan (1) Unable to ambulate: PLAN: Plan Patient is a 78-year-old gentleman with multiple medical comorbidities who was brought to the emergency department with progressive generalized weakness and frequent falls and assessment of adult failure to thrive made admitted to regular nursing floor with consultation placed to case management to assist with disposition 1. Physical deconditioning - Requested for PT OT eval and neonatal social worker to assist with discharge planning ? 02/20/2024 patient has tolerated physical therapy well so far. Awaiting insurance preauthorization prior to transfer to prison facility 2. Bilateral stasis dermatitis ? Consult placed to wound care nurse 3. Hypothyroidism - Patient is on levothyroxine home dose continued 4. Diabetes mellitus type II -patient's oral hypoglycemics held. Placed on long acting insulin, Accu-Cheks a.c. and at bedtime and covered with sliding scale insulin 5. Dyslipidemia -Patient is on statin therapy, continued at home dose 6. Gout ? Patient is on allopurinol next 7. Hearing impairment ? With history of cochlear implant 8. Obstructive sleep apnea ? PAP therapy at night 9. GERD 10. Spinal lumbar stenosis 11. Generalized osteoarthritis 12. Class III obesity with BMI of 42 ? Complicating care weight loss advised 13. Depression with anxiety Dilated continue home meds 14. DVT prophylaxis ? SC heparin Time spent in the patient's overall evaluation,decision-making process, review of diagnostic data, adjustment of management, discussion with other providers, nursing nursing and ancillary staff involved in patient's care documentation, 35 minutes Charges/Coding Visit Charges Inpatient E&M: 79581 Subs Hosp L2
[2024-02-20] MEDS: Aspirin E.C. 81 MG Tablet PO (07:51)
[2024-02-20] MEDS: Juven (unflavored) Packet 1 PACKET PO (07:51)
[2024-02-20] MEDS: Potassium Chloride Oral Tablet 20 MEQ PO (07:51)
[2024-02-20] MEDS: Insulin Lispro 100 UNIT/ML INSULN.PEN SC ×4 (08:12→12:06)
[2024-02-20 08:35] LABS: Bedside Glucose 161 mg/dL (74-106)
[2024-02-20 09:02] LABS: Absolute Lymphocyte Count 2.44 X10^3/uL (0.83-4.51); Basophil# 0.05 X10^3/uL; Basophil% 0.4 % (0-1); Eosinophil# 0.16 X10^3/uL; Eosinophils% 1.4 % (0-5); Hematocrit 37.9 % (40-54); Hemoglobin 12.3 g/dL (13.0-16.5); Lymphocyte # 2.44 X10^3/ul (0.83-4.51); Mean Corp Hgb Conc 32.5 g/dL (32-36); Mean Corpuscular Hgb 27.1 pg (27.0-32.0); Mean Corpuscular Volume 83.5 fL (80-94); Mean Platelet Vol. 9.4 fl (6.2-12.0); Monocyte# 0.87 X10^3/uL; Monocyte% 7.5 % (0-10); NRBC Flagged by Analyzer 0 % (0-5); Neutrophil # 8.04 X10^3/uL (2.7-7.7); Neutrophil % 69.4 % (47-70); Platelet Count 485 K/mm3 (150-450); RBC Distribution Width CV 15.7 % (11.6-14.6); RBC Distribution Width SD 47.6 fl (35.1-43.9); Red Blood Count 4.54 M/mm3 (4.6-6.2); White Blood Count 11.6 K/mm3 (4.4-11.0)
--- NOTE | 2024-02-20 09:19 | CASEMGMT ---
Addendum entered by Kay Mendoza 02/20/24 13:48: Social Work DC orders faxed to TCU and pt's RN updated pt can dc to TCU. ANIL Kumar Addendum entered by Kay Mendoza 02/20/24 13:47: Social Work Precert has been obtained for pt to go to TCU today. Physician updated and pt is ready for discharge today. JENNIFER met with pt and pt and updated that pt has been accepted at TCU, precert has been obtained and physician will dc today. Pt and agreeable. SW spoke with pt's who is concerned that she may not be able to care for pt at home much longer. Pt is known to this SW from previous stays. Pt and have continuously refused [facility] SNF and applying for Medicaid. SW spoke with Slavae regarding applying for medicaid at this time and Blance is agreeable. Referral made to [facility]. Handoff given to TCU Service Sprinkler Helper. Plan: TCU, skilled level of care ANIL Devries Original Note: Social Work Pt has been seen by therapy and recommendations are for SNF. RNCM spoke with pt and preferred provider is [facility]. Referral made to TCU at this time. SW will await evaluation. Pt will need precert prior to discharge. Plan: TCU, pending acceptance and precert ANIL Kumar
[2024-02-20 09:35] LABS: Anion Gap 6 (5-15); BUN 18 mg/dL (7-18); BUN/Creat Ratio 19.3 RATIO (10-20); Chloride 103 mmol/L (98-107); Creatinine, Serum 0.93 mg/dL (0.70-1.30); EST Glomerular Filtration Rate 83 mL/min (>60); Est Glom Filt Rate - Afr Amer 101 mL/min (>60); Estimated Creatinine Clearance 84.33 ml/min; Glucose 205 mg/dL (74-106); Magnesium 1.7 mg/dL (1.6-2.6); Potassium 3.3 mmol/L (3.5-5.1); Sodium Level 138 mmol/L (136-145)
[2024-02-20] MEDS: Menthol/Lanolin/Calamine/Znox 113 GM Tube 1 APPLIC TOPICAL (11:13)
[2024-02-20] MEDS: Nystatin Powder 15gm Bottle 1 APPLIC TOPICAL (11:14)
[2024-02-20] MEDS: Losartan Potassium 100 MG Tablet PO (11:14)
[2024-02-20] MEDS: amLODIPine 5 MG Tablet PO (11:14)
[2024-02-20] MEDS: Heparin Injection (Vial) 5,000 UNIT/ML VIAL 5000 UNIT SC (11:15)
[2024-02-20 11:16] VITALS: PULSE 64
[2024-02-20] MEDS: Pantoprazole Sodium 40 MG Tablet PO (11:16)
[2024-02-20] MEDS: Metoprolol(XL)Succ 25 MG Tablet 12.5 MG PO (11:16)
[2024-02-20] MEDS: Paroxetine 20 MG Tablet 40 MG PO (11:16)
[2024-02-20] MEDS: Allopurinol 100 MG Tablet PO (11:17)
[2024-02-20 11:49] LABS: Bedside Glucose 228 mg/dL (74-106)
--- NOTE | 2024-02-20 12:55 | PCM.TXEXTCAR ---
Diet Diet Order/Speech Therapy: 02/18/24 16:51 Diet: Consistent Carb - Calorie Controlled Food consistency:: Regular Liquid Consistency:: Regular/Thin Dietary Modifications:: Cardiac / Heart Healthy Sodium Restricted How many daily calories?: 1999 calorie Routine Orders/Code Status Code Status: Full Code Wound(s) bilateral lower extremities: Wound Type: Stasis Ulcer right lower leg: Wound Type: scattered open blisters Dressing Change: Adaptic left lower leg: Wound Type: scattered open blisters Dressing Change: Adaptic R buttock: Wound Type: Pressure Injury R knee: Wound Type: Abrasion Therapies Physical Therapy: Eval and Treat Occupational Therapy: Eval and Treat Speech Therapy: Eval and Treat Problem/Diagnosis (1) Unable to ambulate: Status: Acute Code(s): R26.2 - Difficulty in walking, not elsewhere classified Plan Patient is a 78-year-old gentleman with multiple medical comorbidities who was brought to the emergency department with progressive generalized weakness and frequent falls and assessment of adult failure to thrive made admitted to regular nursing floor with consultation placed to case management to assist with disposition 1. Physical deconditioning - Requested for PT OT eval and social research assistant to assist with discharge planning ? 02/20/2024 patient has tolerated physical therapy well so far. Awaiting insurance preauthorization prior to transfer to care home facility 2. Bilateral stasis dermatitis ? Consult placed to wound care nurse 3. Hypothyroidism - Patient is on levothyroxine home dose continued 4. Diabetes mellitus type II -patient's oral hypoglycemics held. Placed on long acting insulin, Accu-Cheks a.c. and at bedtime and covered with sliding scale insulin 5. Dyslipidemia -Patient is on statin therapy, continued at home dose 6. Gout ? Patient is on allopurinol next 7. Hearing impairment ? With history of cochlear implant 8. Obstructive sleep apnea ? PAP therapy at night 9. GERD 10. Spinal lumbar stenosis 11. Generalized osteoarthritis 12. Class III obesity with BMI of 42 ? Complicating care weight loss advised 13. Depression with anxiety Dilated continue home meds 14. DVT prophylaxis ? SC heparin Time spent in the patient's overall evaluation,decision-making process, review of diagnostic data, adjustment of management, discussion with other providers, nursing nursing and ancillary staff involved in patient's care documentation, 35 minutes Allergies/Procedures Done in Hospital Allergies cocaine Allergy (Verified 02/15/24 15:06) Unknown vancomycin Allergy (Verified 02/15/24 15:06) Rash atorvastatin calcium [From Lipitor] Adverse Reaction (Verified 02/15/24 15:06) Pain in joints Corticosteroids (Glucocorticoids) [steroids] Adverse Reaction (Verified 02/15/24 15:06) ANXIETY, INSOMNIA haloperidol [From Haldol] Adverse Reaction (Verified 02/15/24 15:06) Other WENT CRAZY morphine Adverse Reaction (Verified 02/15/24 15:06) Other extremely aggitated oxycodone [From OxyIR] Adverse Reaction (Verified 02/15/24 15:06) Pain in joints extremely aggitated prednisone Adverse Reaction (Verified 02/15/24 15:06) ANXIOUS, INSOMNIA Type of Care/Length of Stay Estimated LOS: Convalescent Care Less Than 30 days Type of Care Needed: Skilled Rehab Potential: Good Prognosis: Good Additional Orders/Day of Discharge H&P will serve as current which was dated: 02/20/24 Day of Discharge: 02/20/24 Dietary and Speech Recommendations Dietitian Recommendations/Changes: Will d/c glucerna shake w/ medpass. Will add Edy BID on JAN. Will adjust diet to 2000 calorie/consistent carbohydrate; cardiac/sodium-restricted. Fluid restriction as indicated per physician. Discharge Plan Admission Admit Date/Time: 02/18/24 15:56 Attending Provider: Nikolai Mitchell Primary Care Provider: Gil Wheeler Chi Consulting Providers: Panchito Monroe Discharge Orders/Prescriptions Prescriptions: New insulin lispro [Humalog KwikPen Insulin] 100 unit/mL Insulin Pen See Protocol subcut ACHS Qty: 0 0RF Protocol: 4. Sliding Scale Insulin High-Med Dosing Condition: 150-199 mg/dl = 2 units Condition: 200-259 mg/dl = 4 units Condition: 260-324 mg/dl = 6 units Condition: 325-374 mg/dl = 8 units Condition: 375-409 mg/dl = 10 units Condition: 410-449 mg/dl = 11 units Condition: Greater than 449 call physician Protocol Text: - Use for Total Daily Dose of Insulin 56-80 units - Patient who are insulin resistant or septic HIGH MEDIUM DOSING ALGORITHM menthol-zinc oxide [Calmoseptine] 0.44-20.6 % Ointment 1 applic topical BID Qty: 0 0RF Protocol: *Topical Application Instructions APPLICATION INSTRUCTIONS: coccyx Edy (with collagen) 7-7-1.5 gram Powder In Packet 1 packet PO BIDCM Qty: 0 0RF Continued potassium chloride 20 MEQ tablet 20 meq PO BIDCM Patient Comments: SUPPLEMENT paroxetine HCl 40 MG tablet 40 mg PO DAILY Hold Instructions: hold until Dr. Wheeler restarts at next office visit Patient Comments: MENTAL HEALTH doxepin 25 MG capsule 25 mg PO QHS Qty: 30 0RF pantoprazole 40 MG tablet 40 mg PO DAILY Qty: 30 0RF ergocalciferol (vitamin D2) 50,000 UNIT capsule 50,000 unit PO QMONTH Hold Instructions: on hold insulin glargine 100 UNITS/ML insulin pen 25 units subcut QHS allopurinol 100 MG tablet 100 mg PO DAILY 0RF levothyroxine 137 mcg tablet 137 mcg PO DAILY losartan 100 mg tablet 100 mg PO DAILY furosemide 40 mg Tablet 40 mg PO BIDLX Qty: 60 0RF alprazolam 0.25 mg Tablet 0.25 mg PO TID PRN (Reason: Anxiety) Qty: 5 0RF amlodipine 5 mg Tablet 5 mg PO BID Qty: 60 0RF aspirin 81 mg Tablet,Delayed Release (Dr/Ec) 81 mg PO BREAKFAST Qty: 1 0RF clonidine HCl 0.1 mg Tablet 0.1 mg PO TID Qty: 90 0RF insulin lispro [Humalog KwikPen Insulin] 100 unit/mL Insulin Pen 5 unit subcut TIDAC Qty: 2 0RF linagliptin 5 mg tablet 5 mg PO DAILY Qty: 30 0RF sennosides-docusate sodium [Stool Softener-Stimulant Laxat] 8.6-50 mg Tablet 2 tab PO BID Qty: 60 0RF acetaminophen 325 mg capsule 650 mg PO Q6H PRN (Reason: fever or pain) Qty: 100 0RF Humalog KwikPen Insulin 200 unit/mL (3 mL) insulin pen subcut Trulicity 3 mg/0.5 mL pen injector subcut metoprolol succinate 25 mg tablet extended release 24 hr 12.5 mg PO BID Qty: 90 3RF Discontinued amoxicillin-pot clavulanate 875-125 mg tablet 1 tab PO BID 10 Days Qty: 20 0RF Referrals / Follow Up: Gil Wheeler Chi, MD [Primary Care Provider] - Disposition Disposition (needs filled in before D/C Order can be placed): Senior Living Facility
--- NOTE | 2024-02-20 12:58 | PCM.DC.SUM ---
Providers Date of Admission: 02/18/24 Date of Discharge: 02/20/24 Primary Care Physician: Dr. Gil Wheeler MD Consultations 02/18/24 16:51 Consult: Onc/Wound/customer support representative Routine Comment: Reason for Consult:: leg wounds Reason For Visit: DEBILITY Diagnosis Discharge Diagnosis (1) Unable to ambulate: Status: Acute Code(s): R26.2 - Difficulty in walking, not elsewhere classified Plan Patient is a 78-year-old gentleman with multiple medical comorbidities who was brought to the emergency department with progressive generalized weakness and frequent falls and assessment of adult failure to thrive made admitted to regular nursing floor with consultation placed to case management to assist with disposition 1. Physical deconditioning - Requested for PT OT eval and social science professor to assist with discharge planning ? 02/20/2024 patient has tolerated physical therapy well so far. Awaiting insurance preauthorization [facility] 2. Bilateral stasis dermatitis ? Consult placed to wound care nurse 3. Hypothyroidism - Patient is on levothyroxine home dose continued 4. Diabetes mellitus type II -patient's oral hypoglycemics held. Placed on long acting insulin, Accu-Cheks a.c. and at bedtime and covered with sliding scale insulin 5. Dyslipidemia -Patient is on statin therapy, continued at home dose 6. Gout ? Patient is on allopurinol next 7. Hearing impairment ? With history of cochlear implant 8. Obstructive sleep apnea ? PAP therapy at night 9. GERD 10. Spinal lumbar stenosis 11. Generalized osteoarthritis 12. Class III obesity with BMI of 42 ? Complicating care weight loss advised 13. Depression with anxiety Dilated continue home meds 14. DVT prophylaxis ? SC heparin Time spent in the patient's overall evaluation,decision-making process, review of diagnostic data, adjustment of management, discussion with other providers, nursing nursing and ancillary staff involved in patient's care documentation, 35 minutes Medications at Discharge Home Medications paroxetine HCl 40 mg tablet 40 mg PO DAILY depression 09/27/16 potassium chloride 20 mEq tablet,extended release(part/cryst) 20 meq PO BIDCM supplement 09/27/16 doxepin 25 mg capsule 25 mg PO QHS sleep #30 caps 04/24/19 pantoprazole 40 mg tablet,delayed release 40 mg PO DAILY Gerd #30 tabs 04/24/19 ergocalciferol (vitamin D2) 1,250 mcg (50,000 unit) capsule 50,000 unit PO QMONTH supplement 08/29/19 insulin glargine 100 unit/mL (3 mL) subcutaneous pen 25 units subcut QHS Diabetes 08/29/19 allopurinol 100 mg tablet 100 mg PO DAILY gout 09/04/19 metoprolol succinate 25 mg tablet,extended release 24 hr 12.5 mg (1/2 x 25 mg) PO BID BP #90 tabs 03/28/22 levothyroxine 137 mcg tablet 137 mcg PO DAILY Thyroid 10/31/23 losartan 100 mg tablet 100 mg PO DAILY BP 10/31/23 acetaminophen 325 mg capsule 650 mg (2 x 325 mg) PO Q6H PRN fever or pain #100 caps 11/15/23 alprazolam 0.25 mg tablet 0.25 mg PO TID PRN Anxiety #5 tabs 11/15/23 amlodipine 5 mg tablet 5 mg PO BID #60 tabs 11/15/23 aspirin 81 mg tablet,delayed release 81 mg PO BREAKFAST #1 TAB 11/15/23 clonidine HCl 0.1 mg tablet 0.1 mg PO TID #90 tabs 11/15/23 furosemide 40 mg tablet 40 mg PO BIDLX #60 tabs 11/15/23 insulin lispro 100 unit/mL subcutaneous pen (Humalog KwikPen (U-100) Insulin) 5 unit (0.05 mL) subcut TIDAC #2 pens 11/15/23 linagliptin 5 mg tablet 5 mg PO DAILY #30 tabs 11/15/23 sennosides 8.6 mg-docusate sodium 50 mg tablet (Stool Softener-Stimulant Laxative) 2 tab PO BID #60 tabs 11/15/23 dulaglutide 3 mg/0.5 mL subcutaneous pen injector (Trulicity) mg subcut 02/15/24 insulin lispro 200 unit/mL (3 mL) subcutaneous pen (Humalog KwikPen U-200 Insulin) subcut 02/15/24 arginine 7 gram-glutam 7 gram-CaHMB 1.5 [id number] oral pwd pkt (Edy (with collagen)) 1 packet PO BIDCM #0 ea 02/20/24 insulin lispro 100 unit/mL subcutaneous pen (Humalog KwikPen (U-100) Insulin) See Protocol subcut ACHS #0 mL 02/20/24 menthol 0.44 %-zinc oxide 20.6 % topical ointment (Calmoseptine) 1 applic topical BID #0 grams 02/20/24 Physical Exam Narrative GENERAL: cooperative HEENT: Atraumatic; normocephalic EYES; Anicteric, Normal Conjunctiva NECK; supple, normal thyroid, RESPIRATORY: Diminished to auscultation CARDIOVASCULAR: Regular S1 S2, GI: soft, normoactive bowel sounds, : No Renal angle tenderness; EXTREMITIES: Bilateral lower extremities wrapped MUSCULOSKELETAL: no muscle wasting NEURO: Awake; no lateralizing signs. SKIN: No Rash PSYCH; Flat affect Weight / BMI Weight Weight: 125.101 kg Body Mass Index (BMI) 41.9 ABG / Lab / Microbiology Data 02/20/24 08:50 02/20/24 08:50 Laboratory: Laboratory Results - last 24 hr 02/19/24 16:09: POC Glucose 156 H 02/19/24 23:22: POC Glucose 194 H 02/20/24 07:48: POC Glucose 161 H 02/20/24 08:50: WBC 11.6 H, RBC 4.54 L, Hgb 12.3 L, Hct 37.9 L, MCV 83.5, MCH 27.1, MCHC 32.5, RDW Std Deviation 47.6 H, RDW Coeff of Geovanni 15.7 H, Plt Count 485 H, MPV 9.4, Immature Gran % (Auto) 0.300, Neut % (Auto) 69.4, Lymph % (Auto) 21.0, Dooly % (Auto) 7.5, Eos % (Auto) 1.4, Baso % (Auto) 0.4, Absolute Neuts (auto) 8.0 H, Absolute Lymphs (auto) 2.44, Nucleated RBC % 0, Sodium 138, Potassium 3.3 L, Chloride 103, Carbon Dioxide 29.0, Anion Gap 6, BUN 18, Creatinine 0.93, Estim Creat Clear Calc 84.33, Est GFR (MDRD) Af Amer 101, Est GFR (MDRD) Non-Af 83, BUN/Creatinine Ratio 19.3, Glucose 205 H, Calcium 9.0, Magnesium 1.7 02/20/24 11:17: POC Glucose 228 H Microbiology: Microbiology 02/18/24 14:47 Mucosa - Nose SARS-CoV-2, Influenza & RSV (PCR) - Final D/C Instructions Discharge Diet: 1800 Calorie Control Diet Discharge Activity: Return to Normal Activity Call your doctor if you observe: Fever of 101 or Higher, Shortness of breath, Fainting spells and Chest pain Meaningful Use Info Meaningful Use Diagnoses (Choose all that apply): None applicable Discharge Plan Admission Admit Date/Time: 02/18/24 15:56 Attending Provider: Nikolai Mitchell Primary Care Provider: Gil Wheeler Chi Consulting Providers: Panchito Monroe Discharge Orders/Prescriptions Prescriptions: New insulin lispro [Humalog KwikPen Insulin] 100 unit/mL Insulin Pen See Protocol subcut ACHS Qty: 0 0RF Protocol: 4. Sliding Scale Insulin High-Med Dosing Condition: 150-199 mg/dl = 2 units Condition: 200-259 mg/dl = 4 units Condition: 260-324 mg/dl = 6 units Condition: 325-374 mg/dl = 8 units Condition: 375-409 mg/dl = 10 units Condition: 410-449 mg/dl = 11 units Condition: Greater than 449 call physician Protocol Text: - Use for Total Daily Dose of Insulin 56-80 units - Patient who are insulin resistant or septic HIGH MEDIUM DOSING ALGORITHM menthol-zinc oxide [Calmoseptine] 0.44-20.6 % Ointment 1 applic topical BID Qty: 0 0RF Protocol: *Topical Application Instructions APPLICATION INSTRUCTIONS: coccyx Edy (with collagen) 7-7-1.5 gram Powder In Packet 1 packet PO BIDCM Qty: 0 0RF Continued potassium chloride 20 MEQ tablet 20 meq PO BIDCM Patient Comments: SUPPLEMENT paroxetine HCl 40 MG tablet 40 mg PO DAILY Hold Instructions: hold until Dr. Wheeler restarts at next office visit Patient Comments: MENTAL HEALTH doxepin 25 MG capsule 25 mg PO QHS Qty: 30 0RF pantoprazole 40 MG tablet 40 mg PO DAILY Qty: 30 0RF ergocalciferol (vitamin D2) 50,000 UNIT capsule 50,000 unit PO QMONTH Hold Instructions: on hold insulin glargine 100 UNITS/ML insulin pen 25 units subcut QHS allopurinol 100 MG tablet 100 mg PO DAILY 0RF levothyroxine 137 mcg tablet 137 mcg PO DAILY losartan 100 mg tablet 100 mg PO DAILY furosemide 40 mg Tablet 40 mg PO BIDLX Qty: 60 0RF alprazolam 0.25 mg Tablet 0.25 mg PO TID PRN (Reason: Anxiety) Qty: 5 0RF amlodipine 5 mg Tablet 5 mg PO BID Qty: 60 0RF aspirin 81 mg Tablet,Delayed Release (Dr/Ec) 81 mg PO BREAKFAST Qty: 1 0RF clonidine HCl 0.1 mg Tablet 0.1 mg PO TID Qty: 90 0RF insulin lispro [Humalog KwikPen Insulin] 100 unit/mL Insulin Pen 5 unit subcut TIDAC Qty: 2 0RF linagliptin 5 mg tablet 5 mg PO DAILY Qty: 30 0RF sennosides-docusate sodium [Stool Softener-Stimulant Laxat] 8.6-50 mg Tablet 2 tab PO BID Qty: 60 0RF acetaminophen 325 mg capsule 650 mg PO Q6H PRN (Reason: fever or pain) Qty: 100 0RF Humalog KwikPen Insulin 200 unit/mL (3 mL) insulin pen subcut Trulicity 3 mg/0.5 mL pen injector subcut metoprolol succinate 25 mg tablet extended release 24 hr 12.5 mg PO BID Qty: 90 3RF Discontinued amoxicillin-pot clavulanate 875-125 mg tablet 1 tab PO BID 10 Days Qty: 20 0RF Referrals / Follow Up: Gil Wheeler Chi, MD [Primary Care Provider] - Disposition Disposition (needs filled in before D/C Order can be placed): [facility] Charges/Coding Visit Charges Inpatient E&M: 19813 Disch Hosp >30min
[2024-02-20 13:37] VITALS: BP 137/72; PULSE 78; RESP 16; TEMP 37.3; O2SAT 97
== END 2024-02-20 14:25 | disposition skilled nursing facility (03) ==
LOC: ED 15:30 → MS3 16:27
PROVIDERS: Admitting Provider Internal Medicine; Emergency Provider Emergency Medicine; PCP Family Medicine Geriatric Medicine; Visit Provider Internal Medicine
DX: R53.1 Weakness (principal); I11.0 Hypertensive heart disease with heart failure; I50.32 Chronic diastolic (congestive) heart failure; Z68.41 Body mass index [BMI] 40.0-44.9, adult; E66.01 Morbid (severe) obesity due to excess calories; E11.59 Type 2 diabetes mellitus with other circulatory complications; Z79.4 Long term (current) use of insulin; E11.40 Type 2 diabetes mellitus with diabetic neuropathy, unspecified; H91.90 Unspecified hearing loss, unspecified ear; M10.9 Gout, unspecified; Z87.891 Personal history of nicotine dependence; R26.2 Difficulty in walking, not elsewhere classified; I87.2 Venous insufficiency (chronic) (peripheral); E78.5 Hyperlipidemia, unspecified; R53.81 Other malaise; E03.9 Hypothyroidism, unspecified; Z79.899 Other long term (current) drug therapy; Z79.890 Hormone replacement therapy; Z79.82 Long term (current) use of aspirin
CPT/HCPCS: 36415; 71045; 80048; 82962; 83735; 85025; 87631; 93005; 96372; 96374; 96375; 96376; 97162; 97166; 97530; 97535; 97802; 99221; 99285; A4216; G0378; J1940

== ENCOUNTER 2024-02-20 14:30 | Inpatient (IN) | payer MEDICARE, SELFPAY ==
[2024-02-20 15:10] VITALS: BP 122/60; PULSE 77; RESP 18; TEMP 36.3; O2SAT 96
[2024-02-20 15:12] VITALS: BMI 40.8
--- NOTE | 2024-02-20 15:59 | NURSING ---
Chip Unloader Note; Activity Asset: Complete Raymond has returned to TCU for more therapy and remains independent in his choice of daily activities. Raymond has a cochlear implant and still has a hard time hearing so we need to speak very loud. He will watch tv w/CC on and enjoys reading the newspaper. He welcomes visit w/the game technician and therapy dog when available. Do to his hearing he prefers in room activities over group. Staff will continue to offer activities and respect his right to say no.
[2024-02-20] MEDS: Acetaminophen 325 MG Tablet 650 MG PO (17:46)
[2024-02-20] MEDS: Insulin Lispro 100 UNIT/ML INSULN.PEN SC (18:17)
[2024-02-20] MEDS: Potassium Chloride Oral Tablet 20 MEQ PO (18:19)
[2024-02-20] MEDS: Juven (unflavored) Packet 1 PACKET PO (18:19)
[2024-02-20 18:20] LABS: Bedside Glucose 151 mg/dL (74-106)
--- NOTE | 2024-02-20 19:28 | HP.PCM_ITS ---
HPI - General General Date of Admission: 02/20/24 Date of Service: 02/20/24 Chief Complaint: Here for rehabilitation. HPI Narrative 02/18/2024 PAYTON GONZALES, is a 78 Male who presents to [facility] ED with weakness. Generalized weakness, frequent falls, fell x 2. Unable to walk. Admit for placement. 02/18/[address] [facility]. PT/OT debility. Lasix IV, wound nurse bilateral lower extremity wounds/lymphedema. 02/19/2024 PT/OT SNF. Wound nurse bilateral lower extremity venous stasis dermatitis. 02/20/2024 Await placement. 02/20/2024 Admit to TCU with debility, here for rehabilitation, strengthening, wound care, prior to disposition determination. Resident unable to care for self at home, his is blind, and unable to care for him. Resident refuses placement in congregate living environment, preferring to in his own home. [facility] Medical History (Updated 02/20/24 @ 19:[address] Gil Wheeler MD) Abscess of right leg Asbestos exposure Body mass index (BMI) 40.0-44.9, adult Chronic diastolic (congestive) heart failure Chronic venous insufficiency Depression Diabetes mellitus Diabetes mellitus Diabetic ulcer of right lower leg associated with type 2 diabetes mellitus, with fat layer exposed Essential (primary) hypertension Fracture of right tibia and fibula GERD (gastroesophageal reflux disease) GERD (gastroesophageal reflux disease) Gout Heart failure with preserved ejection fraction Hyperlipidemia Hypothyroidism Hypothyroidism Insomnia Low back pain Lumbar spinal stenosis Lymphedema MRSA (methicillin resistant Staphylococcus aureus) infection MRSA bacteremia Neuropathic pain 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 Obesity, morbid, BMI 40.0-49.9 Obstructive sleep apnea EH (obstructive sleep apnea) Osteoarthritis of knees, bilateral Sleep apnea Stasis dermatitis of both legs Tinea unguium Tricuspid valve insufficiency Type 2 diabetes mellitus Type 2 diabetes mellitus with diabetic polyneuropathy Unspecified fracture of shaft of right tibia, sequela Venous stasis dermatitis of right lower extremity Vitamin D deficiency Home Medications paroxetine HCl 40 mg tablet 40 mg PO DAILY depression 09/27/16 [History Last Taken 03/10/19 09:34] potassium chloride 20 mEq tablet,extended release(part/cryst) 20 meq PO BIDCM s upplement 09/27/16 [History Last Taken 03/10/19 09:32] doxepin 25 mg capsule 25 mg PO QHS sleep #30 caps 04/24/19 [Rx Last Taken 10/31/23] pantoprazole 40 mg tablet,delayed release 40 mg PO DAILY Gerd #30 tabs 04/24/19 [Rx Last Taken 09/02/19] ergocalciferol (vitamin D2) 1,250 mcg (50,000 unit) capsule 50,000 unit PO QMONTH supplement 08/29/19 [History Last Taken Unknown] insulin glargine 100 unit/mL (3 mL) subcutaneous pen 25 units subcut QHS Diabetes 08/29/19 [History Last Taken Unknown] allopurinol 100 mg tablet 100 mg PO DAILY gout 09/04/19 [Rx Last Taken 10/31/23] metoprolol succinate 25 mg tablet,extended release 24 hr 12.5 mg (1/2 x 25 mg) PO BID BP #90 tabs 03/28/22 [Rx Last Taken Unknown] levothyroxine 137 mcg tablet 137 mcg PO DAILY Thyroid 10/31/23 [History Last Taken Unknown] losartan 100 mg tablet 100 mg PO DAILY BP 10/31/23 [History Last Taken Unknown] acetaminophen 325 mg capsule 650 mg (2 x 325 mg) PO Q6H PRN fever or pain #100 caps 11/15/23 [Rx Last Taken Unknown] alprazolam 0.25 mg tablet 0.25 mg PO TID PRN Anxiety #5 tabs 11/15/23 [Rx Last Taken Unknown] amlodipine 5 mg tablet 5 mg PO BID BP #60 tabs 11/15/23 [Rx Last Taken Unknown] aspirin 81 mg tablet,delayed release 81 mg PO BREAKFAST blood thinner #1 TAB 11/15/23 [Rx Last Taken Unknown] clonidine HCl 0.1 mg tablet 0.1 mg PO TID BP #90 tabs 11/15/23 [Rx Last Taken Unknown] furosemide 40 mg tablet 40 mg PO BIDLX diuretic #60 tabs 11/15/23 [Rx Last Taken Unknown] insulin lispro 100 unit/mL subcutaneous pen (Humalog KwikPen (U-100) Insulin) 5 unit (0.05 mL) subcut TIDAC diabetes #2 pens 11/15/23 [Rx Last Taken Unknown] linagliptin 5 mg tablet 5 mg PO DAILY diabetes #30 tabs 11/15/23 [Rx Last Taken Unknown] sennosides 8.6 mg-docusate sodium 50 mg tablet (Stool Softener-Stimulant Laxative) 2 tab PO BID stool softener #60 tabs 11/15/23 [Rx Last Taken Unknown] dulaglutide 3 mg/0.5 mL subcutaneous pen injector (Trulicity) 3 mg subcut diabetes 02/15/24 [History Last Taken Unknown] insulin lispro 200 unit/mL (3 mL) subcutaneous pen (Humalog KwikPen U-200 Insulin) subcut 02/15/24 [History Last Taken Unknown] arginine 7 gram-glutam 7 gram-CaHMB 1.5 [id number] oral pwd pkt (Edy (with collagen)) 1 packet PO BIDCM supplement #0 ea 02/20/24 [Rx Last Taken Unknown] insulin lispro 100 unit/mL subcutaneous pen (Humalog KwikPen (U-100) Insulin) See Protocol subcut ACHS diabetes #0 mL 02/20/24 [Rx Last Taken Unknown] menthol 0.44 %-zinc oxide 20.6 % topical ointment (Calmoseptine) 1 applic topical BID redness #0 grams 02/20/24 [Rx Last Taken Unknown] Allergy/AdvReac Type Severity Reaction Status Date / Time cocaine Allergy Unknown Verified 02/15/24 15:06 vancomycin Allergy Rash Verified 02/15/24 15:06 atorvastatin calcium AdvReac Pain in Verified 02/15/24 15:06 [From Lipitor] joints Corticosteroids AdvReac ANXIETY, Verified 02/15/24 15:06 (Glucocorticoids) INSOMNIA [steroids] haloperidol [From Haldol] AdvReac Other Verified 02/15/24 15:06 morphine AdvReac Other Verified 02/15/24 15:06 oxycodone [From OxyIR] AdvReac Pain in Verified 02/15/24 15:06 joints prednisone AdvReac ANXIOUS, Verified 02/15/24 15:06 INSOMNIA Family History Mother Hypertension Father Hypertension Surgical History Cochlear implant in place H/O shoulder surgery History of left heart catheterization (08/15/17) History of right knee joint replacement Hx of cholecystectomy Presence of right artificial knee joint Previous back surgery Social History household members: spouse Smoking Status: Former smoker alcohol intake: never substance use type: does not use ROS Constitutional Constitutional: Reports fatigue and weakness; Denies chills, fever(s) or weight gain ENT HEENT: Denies headache(s), nasal congestion or nasal discharge Cardiovascular Cardiovascular: Denies chest pain or palpitations Respiratory/Chest Respiratory/Chest: Denies cough, excessive phlegm production or shortness of breath with exertion Gastrointestinal Gastrointestinal: Denies abdominal pain, nausea or vomiting Genitourinary Genitourinary: Denies dysuria Musculoskeletal Musculoskeletal: Denies joint pain or joint swelling Integumentary Integumentary: Denies rash or wounds Neurologic Neurologic: Denies focal weakness, numbness or tingling Psychiatric Psychiatric: Denies anxiety, auditory hallucinations, depression, homicidal ideation or suicidal ideation Vital Signs Vital Signs Vital Signs: 02/20/24 15:10 02/20/24 15:48 Temperature 97.4 F L Temperature Source Temporal Pulse Rate 77 Pulse Rhythm Regular Pulse Strength Normal (2+) Respiratory Rate 18 Respiratory Effort Normal Non-Labored Respiratory Depth Normal Respiratory Pattern Normal Blood Pressure 122/60 H Blood Pressure Mean 80 Blood Pressure Source Monitor Blood Pressure Position Semi-Fowlers Blood Pressure Location Right Arm Pulse Ox 96 Oxygen Delivery Method Room Air Room Air Weight Weight: 121.88 kg Body Mass Index (BMI) 40.8 Physical Exam Const alert General Appearance: cooperative HEENT normocephalic Eyes PERRL and EOMs intact bilaterally Neck supple, no JVD and no carotid bruits Resp normal respiratory effort, normal air movement and clear to auscultation bilaterally Cardio regular rate and regular rhythm GI normal to inspection, nondistended, normoactive bowel sounds, non-tender and non-distended Extremity normal capillary refill Extremity Narrative: Bilateral lower extremities dressed. General Extremity: edema Skin no rashes or lesions noted General Skin Exam: no breakdown Psych affect normal Appearance: appropriate Results Lab / Micro Data Labs: Laboratory Results - last 24 hr 02/20/24 18:03: POC Glucose 151 H Assessment & Plan Assessment/Plan (1) Debility: (2) Multiple falls: (3) Lymphedema: (4) Venous stasis ulcers: (5) Diabetes mellitus: (6) Hearing loss: (7) Depression: (8) Hypokalemia: (9) Insomnia: (10) GERD (gastroesophageal reflux disease): (11) Gout: (12) Hypothyroidism: (13) Anemia: (14) Essential (primary) hypertension: PLAN: Plan 78 year old male with below past medical history hospitalized for weakness, falls, bilateral lower extremity venous stasis ulcers, lymphedema, admitted to TCU with debility, here for rehabilitation, strengthening, prior to disposition determination. * Debility - PT/OT. * Pain - Tylenol 1000mg q6 prn pain (1-10). * Bowel - senna/colace 2 tablets bid. * Adult immunization - Administer pneumonia vaccine, covid vaccine, flu vaccine as appropriate. * DVT prophylaxis - Lovenox 40mg sc daily. * Gout - Allopurinol 300mg daily. * Hypertension - Metoprolol succinate 12.5mg bid, Losartan 100mg daily, Amlodipine 5mg bid, Clonidine 0.1mg tid. * CV prophylaxis - Aspirin 81mg daily. * Vitamin D deficiency - D3 25mcg daily. * Insomnia - Doxepin 25mg qhs, stable chronic salvage determiner use, GDR not recommended. * Diabetes Mellitus II - Trulicity 3mg per week, Tradjenta 5mg daily, Glargine 25 units qhs, Humalog 5 units tidac. * Lymphedema/venous stasis ulcers - Furosemide 40mg bidlx, compression, consult wound nurse, Edy 1 packet bidcm. * Hypothyroidism - Levothyroxine 137mcg daily. * Skin irritation - Calmoseptine topical bid. * Tinea Corporis - Nystatin powder topical bid. * GERD - Pantoprazole 40mg daily. * Hypokalemia - KCL ER 20meq bidcm.
[2024-02-20 21:25] LABS: Bedside Glucose 255 mg/dL (74-106)
[2024-02-20] MEDS: Doxepin Hcl 25 MG Capsule PO (21:49)
[2024-02-20] MEDS: cloNIDine HCl 0.1 MG Tablet PO (21:49)
[2024-02-20] MEDS: amLODIPine 5 MG Tablet PO (21:49)
[2024-02-20 21:50] VITALS: BP 186/87; PULSE 78
[2024-02-20] MEDS: Senna/Docusate Sodium 1 Tablet 2 TABLET PO (21:50)
[2024-02-20] MEDS: Metoprolol(XL)Succ 25 MG Tablet 12.5 MG PO (21:50)
[2024-02-20] MEDS: Insulin Glargine-YFGN 100 UNIT/ML Pen 25 UNIT SC (21:51)
[2024-02-20] MEDS: Menthol/Lanolin/Calamine/Znox 113 GM Tube 1 APPLIC TOPICAL (21:56)
[2024-02-20] MEDS: Nystatin Powder 15gm Bottle 1 APPLIC TOPICAL (21:57)
[2024-02-21] MEDS: Acetaminophen 500 MG Tablet 1000 MG PO ×3 (00:53→20:38)
[2024-02-21 05:47] LABS: Absolute Lymphocyte Count 3.16 X10^3/uL (0.83-4.51); Absolute Neutrophil Count 6.3 X10^3/uL (2.0-7.7); Basophil# 0.06 X10^3/uL; Basophil% 0.6 % (0-1); Eosinophil# 0.23 X10^3/uL; Eosinophils% 2.1 % (0-5); Hematocrit 35.9 % (40-54); Hemoglobin 11.5 g/dL (13.0-16.5); Lymphocyte # 3.16 X10^3/ul (0.83-4.51); Lymphocyte % 29.2 % (19-41); Mean Corpuscular Hgb 26.7 pg (27.0-32.0); Mean Corpuscular Volume 83.3 fL (80-94); Mean Platelet Vol. 9.4 fl (6.2-12.0); Monocyte# 1.08 X10^3/uL; NRBC Flagged by Analyzer 0 % (0-5); Neutrophil # 6.26 X10^3/uL (2.7-7.7); Neutrophil % 57.6 % (47-70); Platelet Count 470 K/mm3 (150-450); RBC Distribution Width CV 15.9 % (11.6-14.6); RBC Distribution Width SD 47.3 fl (35.1-43.9); Red Blood Count 4.31 M/mm3 (4.6-6.2); White Blood Count 10.8 K/mm3 (4.4-11.0)
[2024-02-21 06:34] LABS: Anion Gap 4 (5-15); BUN 24 mg/dL (7-18); BUN/Creat Ratio 23.8 RATIO (10-20); Chloride 106 mmol/L (98-107); Creatinine, Serum 1.01 mg/dL (0.70-1.30); EST Glomerular Filtration Rate 76 mL/min (>60); Est Glom Filt Rate - Afr Amer 92 mL/min (>60); Estimated Creatinine Clearance 76.56 ml/min; Glucose 206 mg/dL (74-106); Potassium 3.8 mmol/L (3.5-5.1); Sodium Level 140 mmol/L (136-145)
[2024-02-21] MEDS: Furosemide 40 MG Tablet PO ×2 (06:44→14:11)
[2024-02-21] MEDS: Levothyroxine 137 MCG Tablet PO (06:44)
[2024-02-21] MEDS: cloNIDine HCl 0.1 MG Tablet PO ×3 (06:45→20:39)
[2024-02-21] MEDS: Enoxaparin 40 MG/0.4 ML Syringe SC (06:45)
[2024-02-21 06:54] LABS: Bedside Glucose 177 mg/dL (74-106)
[2024-02-21 08:08] VITALS: PULSE 61; RESP 16; O2SAT 97
[2024-02-21] MEDS: Insulin Lispro 100 UNIT/ML INSULN.PEN SC ×3 (09:10→17:20)
[2024-02-21 09:11] VITALS: PULSE 67
[2024-02-21] MEDS: Senna/Docusate Sodium 1 Tablet 2 TABLET PO ×2 (09:11→20:37)
[2024-02-21] MEDS: Metoprolol(XL)Succ 25 MG Tablet 12.5 MG PO ×2 (09:11→20:38)
[2024-02-21] MEDS: Pantoprazole Sodium 40 MG Tablet PO (09:11)
[2024-02-21] MEDS: Aspirin E.C. 81 MG Tablet PO (09:11)
[2024-02-21] MEDS: Juven (unflavored) Packet 1 PACKET PO ×2 (09:11→17:19)
[2024-02-21] MEDS: amLODIPine 5 MG Tablet PO ×2 (09:11→20:37)
[2024-02-21] MEDS: Losartan Potassium 100 MG Tablet PO (09:11)
[2024-02-21] MEDS: LINAGLIPTIN 5 MG TABLET PO (09:12)
[2024-02-21] MEDS: Paroxetine 20 MG Tablet 40 MG PO (09:13)
[2024-02-21] MEDS: Potassium Chloride Oral Tablet 20 MEQ PO ×2 (09:13→17:19)
[2024-02-21] MEDS: Nystatin Powder 15gm Bottle 1 APPLIC TOPICAL ×2 (09:13→20:44)
[2024-02-21] MEDS: Menthol/Lanolin/Calamine/Znox 113 GM Tube 1 APPLIC TOPICAL ×2 (09:13→20:44)
[2024-02-21] MEDS: Allopurinol 300 MG Tablet PO (09:14)
[2024-02-21] MEDS: Cholecalciferol (VIT D3) 25 MCG TABLET (1,000 UNITS) PO (09:14)
[2024-02-21 09:30] VITALS: BP 160/57; PULSE 67; RESP 18; TEMP 36; O2SAT 95
[2024-02-21 11:36] LABS: Bedside Glucose 224 mg/dL (74-106)
[2024-02-21] MEDS: Tuberculin,Purif.prot.deriv. 50 TU/ML Vial 0.1 ML ID (12:11)
[2024-02-21] MEDS: 0.9% Saline Lock 10 ML Syringe IV (14:11)
[2024-02-21] MEDS: CLARIFY ORDER NOTE (14:17)
[2024-02-21 14:19] VITALS: BP 145/64
[2024-02-21 17:49] LABS: Bedside Glucose 186 mg/dL (74-106)
[2024-02-21 20:38] VITALS: BP 148/72; PULSE 64
[2024-02-21] MEDS: Doxepin Hcl 25 MG Capsule PO (20:38)
[2024-02-21] MEDS: Insulin Glargine-YFGN 100 UNIT/ML Pen 25 UNIT SC (20:40)
[2024-02-21 22:14] LABS: Bedside Glucose 234 mg/dL (74-106)
[2024-02-22] VITALS (8 sets, daily range): BP systolic 148–184; BP diastolic 70–85; PULSE 58–74; RESP 17–18; TEMP 36.7; O2SAT 97
[2024-02-22] MEDS: Acetaminophen 500 MG Tablet 1000 MG PO ×3 (04:31→22:31)
[2024-02-22] MEDS: Furosemide 40 MG Tablet PO ×2 (04:32→14:50)
[2024-02-22] MEDS: Enoxaparin 40 MG/0.4 ML Syringe SC (04:32)
[2024-02-22] MEDS: Levothyroxine 137 MCG Tablet PO (04:32)
[2024-02-22] MEDS: cloNIDine HCl 0.1 MG Tablet PO ×3 (04:33→22:32)
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
[2024-02-22 06:31] LABS: Bedside Glucose 186 mg/dL (74-106)
[2024-02-22] MEDS: Potassium Chloride Oral Tablet 20 MEQ PO ×2 (08:33→17:49)
[2024-02-22] MEDS: Losartan Potassium 100 MG Tablet PO (08:33)
[2024-02-22] MEDS: amLODIPine 5 MG Tablet PO ×2 (08:33→22:34)
[2024-02-22] MEDS: Senna/Docusate Sodium 1 Tablet 2 TABLET PO ×2 (08:34→22:33)
[2024-02-22] MEDS: LINAGLIPTIN 5 MG TABLET PO (08:34)
[2024-02-22] MEDS: Metoprolol(XL)Succ 25 MG Tablet 12.5 MG PO ×2 (08:34→22:35)
[2024-02-22] MEDS: Allopurinol 300 MG Tablet PO (08:34)
[2024-02-22] MEDS: Cholecalciferol (VIT D3) 25 MCG TABLET (1,000 UNITS) PO (08:34)
[2024-02-22] MEDS: Pantoprazole Sodium 40 MG Tablet PO (08:34)
[2024-02-22] MEDS: Aspirin E.C. 81 MG Tablet PO (08:34)
[2024-02-22] MEDS: Paroxetine 20 MG Tablet 40 MG PO (08:35)
[2024-02-22] MEDS: Juven (unflavored) Packet 1 PACKET PO ×2 (08:35→17:49)
[2024-02-22] MEDS: Nystatin Powder 15gm Bottle 1 APPLIC TOPICAL ×2 (08:36→22:36)
[2024-02-22] MEDS: Insulin Lispro 100 UNIT/ML INSULN.PEN 10 UNIT SC ×3 (08:37→17:49)
--- NOTE | 2024-02-22 11:03 | PCM.PN.DRR ---
Documented by User: Jesse Titus 02/22/24 11:32 TCU RX Drug Regimen Review Subjective/Objective Subjective/Objective: Subjective: TCU admission note. 78 year old male with below past medical history hospitalized for weakness, falls, bilateral lower extremity venous stasis ulcers, lymphedema, admitted to TCU with debility, here for rehabilitation, strengthening, prior to disposition determination. Objective: Allergies cocaine Allergy (Verified 02/15/24 15:06) Unknown vancomycin Allergy (Verified 02/15/24 15:06) Rash atorvastatin calcium [From Lipitor] Adverse Reaction (Verified 02/15/24 15:06) Pain in joints Corticosteroids (Glucocorticoids) [steroids] Adverse Reaction (Verified 02/15/24 15:06) ANXIETY, INSOMNIA haloperidol [From Haldol] Adverse Reaction (Verified 02/15/24 15:06) Other WENT CRAZY morphine Adverse Reaction (Verified 02/15/24 15:06) Other extremely aggitated oxycodone [From OxyIR] Adverse Reaction (Verified 02/15/24 15:06) Pain in joints extremely aggitated prednisone Adverse Reaction (Verified 02/15/24 15:06) ANXIOUS, INSOMNIA Current Medications Generic Name Dose Route Start Last Admin Trade Name Freq PRN Reason Stop Dose Admin Acetaminophen 1,000 mg 02/22/24 14:00 Acetaminophen 500 Mg Tablet PO Q8 CHERYL Allopurinol 300 mg 02/21/24 08:00 02/22/24 08:34 Allopurinol 300 Mg Tablet PO 300 mg DAILYCM CHERYL Administration Amlodipine Besylate 5 mg 02/20/24 22:00 02/22/24 08:33 Amlodipine 5 Mg Tablet PO 5 mg BID CHERYL Administration Protocol Aspirin 81 mg 02/21/24 08:00 02/22/24 08:34 Aspirin E.C. 81 Mg Tablet PO 81 mg BREAKFAST CHERYL Administration Calamine/Phenol 1 applic 02/20/24 22:00 02/21/24 20:44 Menthol/Lanolin/Calamine/Znox 113 Gm Tube TOPICAL 1 applic BID CHERYL Administration Protocol Cholecalciferol 25 mcg 02/21/24 10:00 02/22/24 08:34 Cholecalciferol (Vit D3) 25 Mcg Tablet (1,000 Units) PO 25 mcg DAILY CHERYL Administration Clarify Med Order 0 each 02/20/24 18:00 02/21/24 14:17 Clarify Order NOTE 1 each CLARIFY CHERYL Administration Clonidine 0.1 mg 02/20/24 22:00 02/22/24 04:33 Clonidine Hcl 0.1 Mg Tablet PO 0.1 mg TID [facility] Administration Protocol Doxepin HCl 25 mg 02/20/24 22:00 02/21/24 20:38 Doxepin Hcl 25 Mg Capsule PO 25 mg QHS CHERYL Administration Enoxaparin Sodium 40 mg 02/21/24 06:00 02/22/24 04:32 Enoxaparin 40 Mg/0.4 Ml Syringe SC 40 mg DAILY@0600 CHERYL Administration Furosemide 40 mg 02/21/24 06:00 02/22/24 04:32 Furosemide 40 Mg Tablet PO 40 mg BIDLX CHERYL Administration Protocol Insulin Glargine 25 unit 02/20/24 22:00 02/21/24 20:40 Insulin Glargine-Yfgn 100 Unit/Ml Pen SC 25 unit QHS [facility] Administration Insulin Human Lispro 10 unit 02/22/24 07:45 02/22/24 08:37 Insulin Lispro 100 Unit/Ml Insuln.Pen SC 10 units TIDAC [facility] Administration L-Arginine/L-Glutamine/Calcium HMB 1 packet 02/20/24 17:00 02/22/24 08:35 Edy (Unflavored) Packet PO 1 packet BIDCM [facility] Administration Levothyroxine Sodium 137 mcg 02/21/24 06:00 02/22/24 04:32 Levothyroxine 137 Mcg Tablet PO 137 mcg 0600 [facility] Administration Linagliptin 5 mg 02/21/24 10:00 02/22/24 08:34 Linagliptin 5 Mg Tablet PO 5 mg DAILY CHERYL Administration Losartan Potassium 100 mg 02/21/24 10:00 02/22/24 08:33 Losartan Potassium 100 Mg Tablet PO 100 mg DAILY [facility] Administration Protocol Metoprolol Succinate 12.5 mg 02/20/24 22:00 02/22/24 08:34 Metoprolol(Xl)Succ 25 Mg Tablet PO 12.5 mg BID [facility] Administration Protocol Non-Formulary Medication 3 mg 02/20/24 15:15 Dulaglutide [Trulicity] SC QWEEK [facility] Nystatin 1 applic 02/20/24 22:00 02/22/24 08:36 Nystatin Powder 15gm Bottle TOPICAL 1 applic BID [facility] Administration Protocol Pantoprazole Sodium 40 mg 02/21/24 10:00 02/22/24 08:34 Pantoprazole Sodium 40 Mg Tablet PO 40 mg DAILY CHERYL Administration Paroxetine HCl 40 mg 02/21/24 10:00 02/22/24 08:35 Paroxetine 20 Mg Tablet PO 40 mg DAILY CHERYL Administration Potassium Chloride 20 meq 02/20/24 17:00 02/22/24 08:33 Potassium Chloride Oral Tablet 20 Meq PO 20 meq BIDCM CHERYL Administration Senna/Docusate Sodium 2 tablet 02/20/24 22:00 02/22/24 08:34 Senna/Docusate Sodium 1 Tablet PO 2 tablet BID CHERYL Administration Sodium Chloride 10 - 40 ml 02/20/24 15:09 02/21/24 14:11 0.9% Saline Lock 10 Ml Syringe IV 30 ml UD PRN Administration SALINE FLUSH Tramadol HCl 50 mg 02/22/24 07:58 Tramadol 50 Mg Tablet PO Q6H PRN PRN Pain Score 1-10 or Pre PT/OT Tuberculin PPD 0.1 ml 02/28/24 10:00 Tuberculin,Purif.Prot.Deriv. 50 Tu/Ml Vial ID 02/28/24 10:01 X1 ONE Problem List (Updated 02/20/24 @ 19:[address] Gil Wheeler MD) Essential (primary) hypertension (Acute) Anemia (Acute) Hypothyroidism (Acute) Gout (Acute) GERD (gastroesophageal reflux disease) (Acute) Insomnia (Acute) Depression (Acute) Hearing loss (Acute) Diabetes mellitus (Acute) Venous stasis ulcers (Acute) Lymphedema (Acute) Multiple falls (Acute) Hypokalemia (Acute) Vital Signs Temp Pulse Resp BP Pulse Ox O2 Del Method 96.8 F L 58 L 18 166/71 H 95 Room Air 02/21/24 09:30 02/22/24 08:34 02/21/24 09:30 02/22/24 08:34 02/21/24 09:30 02/21/24 09:30 Oxygen Delivery Method Room Air Weight: 121.88 kg Body Mass Index (BMI) 40.8 Sodium 140 mmol/L (136-145) 02/21/24 05:32 Potassium 3.8 mmol/L (3.5-5.1) 02/21/24 05:32 Chloride 106 mmol/L (98-107) 02/21/24 05:32 Carbon Dioxide 30.0 mmol/L (21.0-32.0) 02/21/24 05:32 Anion Gap 4 (5-15) L 02/21/24 05:32 BUN 24 mg/dL (7-18) H 02/21/24 05:32 Creatinine 1.01 mg/dL (0.70-1.30) 02/21/24 05:32 Est GFR (MDRD) Af Amer 92 mL/min (>60) 02/21/24 05:32 Est GFR (MDRD) Non-Af 76 mL/min (>60) 02/21/24 05:32 BUN/Creatinine Ratio 23.8 RATIO (10-20) H 02/21/24 05:32 Glucose 206 mg/dL (74-106) H 02/21/24 05:32 Assessment/Plan: 1. Pain: acetaminophen 1000 mg PO Q8H, tramadol 50 mg PO Q6H PRN pain. The patient has not required any PRN doses of tramadol so far this admission. Please continue to monitor pain levels, PRN medication usage, LFTs (AST/ALT = 17/18 on 02/06/24), for constipation, renal function (serum creatinine = 1.01 mg/dL with creatinine clearance = ~ 77 mL/min on 02/21/24), for constipation, for respiratory depression, and for syncope/ataxia/falls. 2. Bowel: senna/docusate 2 tablets PO BID. Please continue to monitor for bowel movements (last bowel movement 02/21/24), for constipation and diarrhea. 3. DVT prophylaxis: enoxaparin 40 mg SC daily. Please continue to monitor for s/s of a DVT such as pain/erythema/edema in an extremity, renal function (serum creatinine = 1.01 mg/dL with creatinine clearance = ~ 77 mL/min on 02/21/24), for s/s of bleeding/excessive bruising, hemoglobin levels (Hgb = 11.5 g/dL on 02/21/24), and platelet count (plt = 470 K/mm3 on 02/21/24). 4. Gout: allopurinol 300 mg PO daily with a meal. Please continue to monitor for s/s of a gout flare such as pain in a joint, renal function (serum creatinine = 1.01 mg/dL with creatinine clearance = ~ 77 mL/min on 02/21/24), and uric acid levels (uric acid = 5.6 mg/dL on 02/06/24). 5. Hypertension: amlodipine 5 mg PO BID, clonidine 0.1 mg PO TID, metoprolol succinate 12.5 mg PO daily, losartan 100 mg PO daily. Please continue to monitor blood pressures (recent range = 121-186/57-91 mmHg), for lower extremity edema, renal function (serum creatinine = 1.01 mg/dL with creatinine clearance = ~ 77 mL/min on 02/21/24), heart rates (recent range = 58-78 beats/min), for fatigue, potassium levels (K = 3.8 mmol/L on 02/21/24), sodium levels (Na = 140 mmol/L on 02/21/24), and dizziness. The patient's blood pressures have been elevated over the past several days, please consider adding a medication such as hydralazine 25 mg PO BID rather than increasing the patient's clonidine or metoprolol succinate as the patient's heart rates may not tolerate increased doses of those medications. 6. Diabetes Mellitus II: insulin glargine 25 units QHS, insulin lispro 10 units TIDAC, linagliptin 5 mg PO daily, Trulicity 3 mg Qweek. Please continue to monitor blood glucose levels (recent range = 151-255 mg/dL), hemoglobin A1C levels (A1C = 6.8% on 01/29/19), for s/s of hypo/hyperglycemia, for s/s of heart failure, for arthralgia, for nausea/vomiting, for s/s of pancreatitis, and for abdominal pain. Please consider ordering a hemoglobin A1C level as the patient does not have a recent A1C documented. 7. Hypothyroidism: levothyroxine 137 mcg PO daily. Please continue to monitor for s/s of hypo/hyperthyroidism as well as thyroid function levels (TSH = 2.23 uIU/mL on 02/06/24). 8. Lymphedema/venous stasis ulcers: furosemide 40 mg PO BID, Edy 1 packet PO BID with meals. Please continue to monitor for edema, renal function (serum creatinine = 1.01 mg/dL with creatinine clearance = ~ 77 mL/min on 02/21/24), potassium levels (K = 3.8 mmol/L on 02/21/24), sodium levels (Na = 140 mmol/L on 02/21/24), and for dehydration. 9. GERD: pantoprazole 40 mg PO daily. Please continue to monitor for s/s of GERD, for diarrhea that could indicate clostridium difficile infection and for s/s of bone resorption such as fractures. 10. CV prophylaxis: aspirin 81 mg PO daily. Please continue to monitor for s/s of cardiac disease such as chest pain, shortnes of breath or s/s of stroke, for GI distress with aspirin administration and for s/s fo bleeding/excessive bruising, and platelet counts (plt = 470 K/mm3 on 02/21/24). 11. Hypokalemia: potassium chloride 20 mEq PO BID with meals. Please continue to monitor for s/s of hypokalemia, and potassium levels (K = 3.8 mmol/L on 02/21/24). 12. Vitamin D deficiency: cholecalciferol 25 mcg PO daily. Please continue to monitor for s/s of vitamin D deficiency, as well as vitamin D levels (vitamin D levels = 30.2 ng/mL on 02/06/24). 13. Skin irritation/tinea corporis: nystatin powder topica BID, calmoseptine 1 application topically BID. Please continue to monitor for resolution of tinea corporis, and for skin irritation/integrity. Assessment/Plan for indications treated with psychotropic medications: 1. Insomnia: doxepin 25 mg PO QHS. Please see provider note regarding stable chronic long-term use GDR not recommended. Please continue to monitor for insomnia, for dry mouth, dry eyes, constipation, delirium, for s/s of orthostasis, for SI, and sodium levels (Na = 140 mmol/L on 02/21/24). 2. Depression: Paroxetine 40 mg PO daily. Paroxetine is stable chronic use GDR not recommended. Please continue to monitor for depression, for SI, sodium levels ( Na = 140 mmol/L on 02/21/24), for s/s of serotonin syndrome, and for diaphoresis. Medical chart and medication regimen reviewed. The following medication irregularities or issues were identified: 1. Hypertension: amlodipine 5 mg PO BID, clonidine 0.1 mg PO TID, metoprolol succinate 12.5 mg PO daily, losartan 100 mg PO daily. The patient's blood pressures have been elevated over the past several days, please consider adding a medication such as hydralazine 25 mg PO BID rather than increasing the patient's clonidine or metoprolol succinate as the patient's heart rates may not tolerate increased doses of those medications. 2. Diabetes Mellitus II: insulin glargine 25 units QHS, insulin lispro 10 units TIDAC, linagliptin 5 mg PO daily, Trulicity 3 mg Qweek. Please consider ordering a hemoglobin A1C level as the patient does not have a recent A1C documented. Date Date of Note:: 02/22/24 Documented by User: Dr. Gil Wheeler MD 02/22/24 11:38 TCU RX Drug Regimen Review Provider Comments Provider responsibility Provider Comments to Recommendations by Pharmacy: Agree
[2024-02-22 12:08] LABS: Bedside Glucose 201 mg/dL (74-106)
[2024-02-22] MEDS: Menthol/Lanolin/Calamine/Znox 113 GM Tube 1 APPLIC TOPICAL ×2 (12:41→22:37)
[2024-02-22 14:01] LABS: Hemoglobin A1c 7.7 % (3.8-5.6)
--- NOTE | 2024-02-22 14:12 | WOUNDNOTE ---
wound photo: right lower leg
--- NOTE | 2024-02-22 14:12 | WOUNDNOTE ---
wound photo: right lateral lower leg/ankle
--- NOTE | 2024-02-22 14:13 | WOUNDNOTE ---
wound photo: left lower leg
[2024-02-22] MEDS: hydrALAZINE 25 MG Tablet PO ×2 (14:49→22:34)
--- NOTE | 2024-02-22 15:20 | CASEMGMT ---
Social Work SW met with patient at bedside to complete initial intake assessment. SW introduce self and role. Patient has previously stayed on TCU. Patient verified demographics. Patient confirmed code status as full code. Patient informed SW that he has a completed advanced directive and living will. Patient has , Mayda Rosa assigned as medical decision maker. Patient has daughter, Rebekah as alternate decision maker. Patient informed SW that he does not want children involved with his care. Patient states that his grandchildren will inherit his estate. SW informed patient of his medicare coverage; no NRD at this time. Patient informed SW that he has discharge goals to return home with prior level of care. SW informed patient that prior to admission to TCU that reports that she is unable to provide care for patient in the home. The patient informed SW that he provides care for his since she is blind. The patient informed SW that his does not assist with his care. Patient declined terminal superintendent care placement. Patient stated I am not leaving my house for them to sell it. Patient did accept list for residential care placement v. Assisted Living. Patient declined any need for DME. SW will follow up with patient at care plan meeting. SW will continue to follow to assist with discharge planning. GREGOR Patel
--- NOTE | 2024-02-22 16:26 | CHAPLAIN ---
Type of Pastoral Visit _x__ Initial Visit ___ Follow-up Visit ___ On-call Visit ___ General Patient Visit ___ Spiritual Assessment ___ Family Conference ___ Bereavement ___ Rapid Response ___ Code Blue ___ Other (describe below) Pastoral Care Referral From _x__ Patient ___ Family ___ Nurse ___ Physician ___ Upkeep Worker ___ Storage Management Consultant ___ Other (describe below) Sacrament/Intervention _x__ Active listening ___ Anointing ___ Hinduism ___ Bereavement ___ Communion ___ Scarlett exploration ___ _x__ Life review _x__ Prayer ___ Reconciliation ___ Sacrament of Sick _x__ Supportive presence ___ Wedding ___ Other (describe below) Pastoral Comments patient has been seen before in many previous admissions; pt reports that this is not good at all; pt states his complaints but healthcare system; pt is and has been a complainer about how people treat him and he is a very negative person; however this pt likes to talk to this arc welding machine operator and asks for a prayer always; pt is given time to talk, to express self, and to have some company
[2024-02-22] MEDS: traMADol 50 MG Tablet PO (16:35)
[2024-02-22 17:21] LABS: Bedside Glucose 199 mg/dL (74-106)
[2024-02-22 22:07] LABS: Bedside Glucose 229 mg/dL (74-106)
[2024-02-22] MEDS: Insulin Glargine-YFGN 100 UNIT/ML Pen 25 UNIT SC (22:26)
[2024-02-22] MEDS: Doxepin Hcl 25 MG Capsule PO (22:31)
[2024-02-23] VITALS (8 sets, daily range): BP systolic 158–164; BP diastolic 63–79; PULSE 57–77; RESP 16–20; TEMP 36.2; O2SAT 96–98
[2024-02-23] MEDS: traMADol 50 MG Tablet PO ×3 (01:03→23:26)
[2024-02-23] MEDS: cloNIDine HCl 0.1 MG Tablet PO ×3 (05:38→23:29)
[2024-02-23] MEDS: Acetaminophen 500 MG Tablet 1000 MG PO ×3 (05:39→23:28)
[2024-02-23] MEDS: Enoxaparin 40 MG/0.4 ML Syringe SC (05:39)
[2024-02-23] MEDS: Levothyroxine 137 MCG Tablet PO (05:39)
[2024-02-23] MEDS: Furosemide 40 MG Tablet PO ×2 (05:40→13:48)
[2024-02-23] MEDS: hydrALAZINE 25 MG Tablet PO ×3 (05:41→23:30)
[2024-02-23 06:35] LABS: Bedside Glucose 192 mg/dL (74-106)
[2024-02-23] MEDS: Insulin Lispro 100 UNIT/ML INSULN.PEN 10 UNIT SC (08:35)
[2024-02-23] MEDS: Juven (unflavored) Packet 1 PACKET PO ×2 (08:36→17:46)
[2024-02-23] MEDS: Aspirin E.C. 81 MG Tablet PO (08:36)
[2024-02-23] MEDS: Allopurinol 300 MG Tablet PO (08:37)
[2024-02-23] MEDS: Potassium Chloride Oral Tablet 20 MEQ PO ×2 (08:37→17:46)
[2024-02-23] MEDS: Menthol/Lanolin/Calamine/Znox 113 GM Tube 1 APPLIC TOPICAL ×2 (08:38→23:31)
[2024-02-23] MEDS: Losartan Potassium 100 MG Tablet PO (08:38)
[2024-02-23] MEDS: amLODIPine 5 MG Tablet PO ×2 (08:39→23:27)
[2024-02-23] MEDS: Nystatin Powder 15gm Bottle 1 APPLIC TOPICAL ×2 (08:39→23:31)
[2024-02-23] MEDS: Pantoprazole Sodium 40 MG Tablet PO (08:40)
[2024-02-23] MEDS: Paroxetine 20 MG Tablet 40 MG PO (08:40)
[2024-02-23] MEDS: Metoprolol(XL)Succ 25 MG Tablet 12.5 MG PO ×2 (08:41→23:30)
[2024-02-23] MEDS: Senna/Docusate Sodium 1 Tablet 2 TABLET PO ×2 (08:41→23:28)
[2024-02-23] MEDS: LINAGLIPTIN 5 MG TABLET PO (08:42)
[2024-02-23] MEDS: Cholecalciferol (VIT D3) 25 MCG TABLET (1,000 UNITS) PO (08:42)
[2024-02-23 11:36] LABS: Bedside Glucose 246 mg/dL (74-106)
[2024-02-23] MEDS: Insulin Lispro 100 UNIT/ML INSULN.PEN 13 UNIT SC ×2 (12:32→17:45)
[2024-02-23 17:07] LABS: Bedside Glucose 150 mg/dL (74-106)
[2024-02-23 21:48] LABS: Bedside Glucose 261 mg/dL (74-106)
[2024-02-23] MEDS: Doxepin Hcl 25 MG Capsule PO (23:29)
[2024-02-23] MEDS: Insulin Glargine-YFGN 100 UNIT/ML Pen 30 UNIT SC (23:32)
[2024-02-24] MEDS: Enoxaparin 40 MG/0.4 ML Syringe SC (06:06)
[2024-02-24] MEDS: Acetaminophen 500 MG Tablet 1000 MG PO ×3 (06:06→22:45)
[2024-02-24] MEDS: Levothyroxine 137 MCG Tablet PO (06:06)
[2024-02-24 06:07] VITALS: BP 155/73; PULSE 56
[2024-02-24] MEDS: Furosemide 40 MG Tablet PO ×2 (06:07→14:13)
[2024-02-24] MEDS: cloNIDine HCl 0.1 MG Tablet PO ×3 (06:07→22:48)
[2024-02-24] MEDS: hydrALAZINE 25 MG Tablet PO ×3 (06:07→22:47)
[2024-02-24 06:28] LABS: Bedside Glucose 197 mg/dL (74-106)
--- NOTE | 2024-02-24 07:57 | NURSING ---
Resident reports his will bring in Trulicity today. He is unsure of the dose and what day of the week the medication is administered. Reported to denice YEE.
[2024-02-24 08:20] VITALS: BP 134/56; PULSE 68; RESP 18; TEMP 36.4; O2SAT 95
[2024-02-24] MEDS: Insulin Lispro 100 UNIT/ML INSULN.PEN 13 UNIT SC ×3 (08:23→17:47)
[2024-02-24] MEDS: Aspirin E.C. 81 MG Tablet PO (08:23)
[2024-02-24] MEDS: Juven (unflavored) Packet 1 PACKET PO ×2 (08:23→17:48)
[2024-02-24] MEDS: Potassium Chloride Oral Tablet 20 MEQ PO ×2 (08:24→17:48)
[2024-02-24] MEDS: Allopurinol 300 MG Tablet PO (08:24)
[2024-02-24] MEDS: Menthol/Lanolin/Calamine/Znox 113 GM Tube 1 APPLIC TOPICAL ×2 (08:24→22:48)
[2024-02-24] MEDS: amLODIPine 5 MG Tablet PO ×2 (08:25→22:47)
[2024-02-24] MEDS: Losartan Potassium 100 MG Tablet PO (08:25)
[2024-02-24] MEDS: Nystatin Powder 15gm Bottle 1 APPLIC TOPICAL ×2 (08:25→22:48)
[2024-02-24] MEDS: Pantoprazole Sodium 40 MG Tablet PO (08:26)
[2024-02-24] MEDS: Paroxetine 20 MG Tablet 40 MG PO (08:26)
[2024-02-24] MEDS: Senna/Docusate Sodium 1 Tablet 2 TABLET PO ×2 (08:26→22:46)
[2024-02-24 08:28] VITALS: PULSE 68
[2024-02-24] MEDS: Metoprolol(XL)Succ 25 MG Tablet 12.5 MG PO ×2 (08:28→22:47)
[2024-02-24] MEDS: LINAGLIPTIN 5 MG TABLET PO (08:29)
[2024-02-24] MEDS: Cholecalciferol (VIT D3) 25 MCG TABLET (1,000 UNITS) PO (08:29)
[2024-02-24 12:25] LABS: Bedside Glucose 209 mg/dL (74-106)
--- NOTE | 2024-02-24 13:48 | NURSING ---
Dressings changed to BLEs at this time per orders. No s/sx of infection. Patient tolerated task well. Call light within reach.
[2024-02-24 14:11] VITALS: BP 148/63; PULSE 72
[2024-02-24 14:13] VITALS: PULSE 72
[2024-02-24 16:34] LABS: Bedside Glucose 160 mg/dL (74-106)
[2024-02-24 21:34] LABS: Bedside Glucose 238 mg/dL (74-106)
[2024-02-24] MEDS: Doxepin Hcl 25 MG Capsule PO (22:46)
[2024-02-24] MEDS: traMADol 50 MG Tablet PO (22:46)
[2024-02-24 22:47] VITALS: BP 159/77; PULSE 85
[2024-02-24] MEDS: Insulin Glargine-YFGN 100 UNIT/ML Pen 30 UNIT SC (22:49)
[2024-02-25] VITALS (7 sets, daily range): BP systolic 127–171; BP diastolic 44–76; PULSE 60–74; RESP 16–20; TEMP 36.3–36.4; O2SAT 94–98
[2024-02-25] MEDS: Enoxaparin 40 MG/0.4 ML Syringe SC (05:22)
[2024-02-25] MEDS: Acetaminophen 500 MG Tablet 1000 MG PO ×3 (05:23→21:34)
[2024-02-25] MEDS: Levothyroxine 137 MCG Tablet PO (05:24)
[2024-02-25] MEDS: cloNIDine HCl 0.1 MG Tablet PO ×3 (05:25→21:36)
[2024-02-25] MEDS: Furosemide 40 MG Tablet PO ×2 (05:25→14:24)
[2024-02-25] MEDS: hydrALAZINE 25 MG Tablet PO ×2 (05:25→14:23)
[2024-02-25 06:40] LABS: Bedside Glucose 199 mg/dL (74-106)
[2024-02-25] MEDS: traMADol 50 MG Tablet PO (08:54)
[2024-02-25] MEDS: Senna/Docusate Sodium 1 Tablet 2 TABLET PO ×2 (08:55→21:35)
[2024-02-25] MEDS: Losartan Potassium 100 MG Tablet PO (08:55)
[2024-02-25] MEDS: LINAGLIPTIN 5 MG TABLET PO (08:55)
[2024-02-25] MEDS: Allopurinol 300 MG Tablet PO (08:55)
[2024-02-25] MEDS: Pantoprazole Sodium 40 MG Tablet PO (08:55)
[2024-02-25] MEDS: Potassium Chloride Oral Tablet 20 MEQ PO ×2 (08:56→17:38)
[2024-02-25] MEDS: amLODIPine 5 MG Tablet PO ×2 (08:56→21:35)
[2024-02-25] MEDS: Aspirin E.C. 81 MG Tablet PO (08:56)
[2024-02-25] MEDS: Cholecalciferol (VIT D3) 25 MCG TABLET (1,000 UNITS) PO (08:56)
[2024-02-25] MEDS: Menthol/Lanolin/Calamine/Znox 113 GM Tube 1 APPLIC TOPICAL ×2 (08:58→21:41)
[2024-02-25] MEDS: Paroxetine 20 MG Tablet 40 MG PO (08:58)
[2024-02-25] MEDS: Nystatin Powder 15gm Bottle 1 APPLIC TOPICAL ×2 (08:59→21:41)
[2024-02-25] MEDS: Juven (unflavored) Packet 1 PACKET PO ×2 (08:59→17:38)
[2024-02-25] MEDS: Insulin Lispro 100 UNIT/ML INSULN.PEN 13 UNIT SC ×3 (09:01→17:38)
[2024-02-25] MEDS: Metoprolol(XL)Succ 25 MG Tablet 12.5 MG PO ×2 (09:09→21:34)
[2024-02-25] MEDS: DULAGLUTIDE 3 MG/0.5 ML PEN.INJCTR SQ (09:35)
--- NOTE | 2024-02-25 10:23 | NURSING ---
Informed per PECAN GROWER pt c/o chest pain. Vitals obtained and recorded. Pt reports pain is midsternal and feels heavy. Khalil not give pain a numeric rating. Pain is intermittent and has not occurred since admit to TCU. Notes pain has occurred at home. In no acute distress. Denies pain radiating to either arm, nck, or back. Denies dyspnea. Denies dyspepsia or reflux. Resident is able to converse without any issues. Skin is pink, warm, and dry. EKG obtained and RT completed on the unit and reflectes NSR. Pt denies any chest pain shortly after episode occurred. Will continue to monitor.
--- NOTE | 2024-02-25 10:55 | NURSING ---
JOSELITO Arboleda, completed dressing change to BLE.
[2024-02-25 11:13] LABS: Bedside Glucose 313 mg/dL (74-106)
--- NOTE | 2024-02-25 11:57 | WOUNDNOTE ---
wound photo: right lower leg
--- NOTE | 2024-02-25 11:58 | WOUNDNOTE ---
wound photo: right lateral lower leg
--- NOTE | 2024-02-25 12:01 | WOUNDNOTE ---
wound photo: left lower leg
[2024-02-25 17:03] LABS: Bedside Glucose 256 mg/dL (74-106)
[2024-02-25] MEDS: Doxepin Hcl 25 MG Capsule PO (21:34)
[2024-02-25] MEDS: Insulin Glargine-YFGN 100 UNIT/ML Pen 30 UNIT SC (21:38)
[2024-02-25 22:01] LABS: Bedside Glucose 222 mg/dL (74-106)
[2024-02-26] VITALS (8 sets, daily range): BP systolic 139–163; BP diastolic 59–74; PULSE 55–66; RESP 16–18; TEMP 36.6; O2SAT 97; BMI 40.7
[2024-02-26] MEDS: Acetaminophen 500 MG Tablet 1000 MG PO ×3 (05:30→22:43)
[2024-02-26] MEDS: hydrALAZINE 25 MG Tablet PO (05:30)
[2024-02-26] MEDS: Enoxaparin 40 MG/0.4 ML Syringe SC (05:31)
[2024-02-26] MEDS: Levothyroxine 137 MCG Tablet PO (05:31)
[2024-02-26] MEDS: Furosemide 40 MG Tablet PO ×2 (05:31→13:26)
[2024-02-26] MEDS: cloNIDine HCl 0.1 MG Tablet PO ×3 (05:31→22:46)
[2024-02-26 06:40] LABS: Bedside Glucose 122 mg/dL (74-106)
[2024-02-26] MEDS: Metoprolol(XL)Succ 25 MG Tablet 12.5 MG PO ×2 (08:37→22:44)
[2024-02-26] MEDS: Juven (unflavored) Packet 1 PACKET PO ×2 (08:37→17:49)
[2024-02-26] MEDS: Losartan Potassium 100 MG Tablet PO (08:37)
[2024-02-26] MEDS: Potassium Chloride Oral Tablet 20 MEQ PO ×2 (08:37→17:49)
[2024-02-26] MEDS: Aspirin E.C. 81 MG Tablet PO (08:37)
[2024-02-26] MEDS: amLODIPine 5 MG Tablet PO ×2 (08:37→22:46)
[2024-02-26] MEDS: Paroxetine 20 MG Tablet 40 MG PO (08:37)
[2024-02-26] MEDS: Cholecalciferol (VIT D3) 25 MCG TABLET (1,000 UNITS) PO (08:37)
[2024-02-26] MEDS: Pantoprazole Sodium 40 MG Tablet PO (08:37)
[2024-02-26] MEDS: LINAGLIPTIN 5 MG TABLET PO (08:37)
[2024-02-26] MEDS: Allopurinol 300 MG Tablet PO (08:38)
[2024-02-26] MEDS: Insulin Lispro 100 UNIT/ML INSULN.PEN 13 UNIT SC ×3 (08:39→17:49)
[2024-02-26] MEDS: Nystatin Powder 15gm Bottle 1 APPLIC TOPICAL ×2 (08:40→22:44)
[2024-02-26] MEDS: Menthol/Lanolin/Calamine/Znox 113 GM Tube 1 APPLIC TOPICAL ×2 (08:40→22:45)
[2024-02-26 11:44] LABS: Bedside Glucose 249 mg/dL (74-106)
[2024-02-26] MEDS: COVID VAC 23-24(12UP)(ANDU)/PF 50 MCG/0.5 ML SYRINGE IM (12:22)
[2024-02-26] MEDS: traMADol 50 MG Tablet PO (12:28)
[2024-02-26] MEDS: hydrALAZINE 50 MG Tablet PO ×2 (13:26→22:46)
--- NOTE | 2024-02-26 17:20 | CASEMGMT ---
Social Work IDT met with patient, Antelmo ESPAÑA, and , Mayda at bedside to complete care plans. Discussed patient progress with therapy PT/OT. SW educated patient and of [facility] insurance next review date 02/27. No guarantee of continued stay on TCU pending review. Patient informed SW that his goal is to return home with . SW inquired about patient's ability to provide care for patient. Patient's informed SW and patient that she is unable to provide care in home for patient. Patient yelled you don't care for me. I care for me SW inquired about current in home care. Mayda informed SW that patient had home health care services after prior discharge, but only obtains services once a week for RN/MILITARY TECHNICIAN through [facility]. Patient has cleaning services once a week and obtains meals on wheels. Patient's informed JENNIFER that she has not received any calls from [employer] regarding Medicaid. Patient's informed SW that she does not want daughterYasmin contacted for any care planning or financial planning. Mayda informed SW that she and patient are decision makers for each other. Mayda does not think patient would qualify for Medicaid. Patient continued to express that she is unable to meal prep, physically assist, or transport patient to medical appointments. SW provided patient and with meal delivery services to assist with better meals and support for meal prep in home. SW informed patient and that recommendation for care is assisted living or snf care. Patient informed SW that he ain't going nowhere. SW inquired about patient's ability to care for self in current condition. Patient informed SW that he will get better with therapy. SW inquired about additional family support. Patient's informed SW that she does not have any additional family to support patient care at this time. Patient expressed frustration with his PCP and requested to change Phys[facility]. post IDT meeting SW revisited patient and to discuss snf care options. SW provided patient with directory with PCP. SW reviewed longshore equipment operator care facilities. Patient's requested a list in [facility]. SW provided assisted living facilities in [place]. SW discussed level of care both the patient and his require as his is blind. Patient and both acknowledge safety concerns. Neither patient or has a life alert. SW provided information for medical alert device. Patient informed SW that he would like to return home with home health. SW expressed concerns for returning home with current status; max assist. Patient continued to deny placement. Patient's informed JENNIFER that the patient will need a new lift chair in home. Patient's is requesting a script to be sent to [facility] Patient's contacted [employer] [facility] to obtain fax # [phone]. Patient's expressed frustration and concerns with patient. Patient denied placement to and threatened to divorce , if he has to go to facility. Patient's was upset and requested to leave. Patient informed SW that he declines placement for snf care. SW requested patient to think about level of care required to care for him in home due to safety concerns. SW will continue to follow to assist patient with transition of care plans. GREGOR Patel
[2024-02-26 17:36] LABS: Bedside Glucose 132 mg/dL (74-106)
[2024-02-26 21:46] LABS: Bedside Glucose 178 mg/dL (74-106)
[2024-02-26] MEDS: Senna/Docusate Sodium 1 Tablet 2 TABLET PO (22:43)
[2024-02-26] MEDS: Insulin Glargine-YFGN 100 UNIT/ML Pen 30 UNIT SC (22:45)
[2024-02-26] MEDS: Doxepin Hcl 25 MG Capsule PO (22:47)
[2024-02-27] VITALS (9 sets, daily range): BP systolic 128–185; BP diastolic 61–78; PULSE 56–85; RESP 17–18; TEMP 36.1; O2SAT 94
[2024-02-27] MEDS: traMADol 50 MG Tablet PO ×3 (02:06→22:45)
[2024-02-27] MEDS: Levothyroxine 137 MCG Tablet PO (04:56)
[2024-02-27] MEDS: Enoxaparin 40 MG/0.4 ML Syringe SC (04:56)
[2024-02-27] MEDS: hydrALAZINE 50 MG Tablet PO ×3 (04:56→22:49)
[2024-02-27] MEDS: Acetaminophen 500 MG Tablet 1000 MG PO ×3 (04:56→22:46)
[2024-02-27] MEDS: Furosemide 40 MG Tablet PO ×2 (04:57→14:05)
[2024-02-27] MEDS: cloNIDine HCl 0.1 MG Tablet PO ×3 (04:57→22:50)
[2024-02-27 06:26] LABS: Bedside Glucose 162 mg/dL (74-106)
[2024-02-27] MEDS: Insulin Lispro 100 UNIT/ML INSULN.PEN 13 UNIT SC ×3 (08:49→18:14)
[2024-02-27] MEDS: Potassium Chloride Oral Tablet 20 MEQ PO ×2 (08:50→18:24)
[2024-02-27] MEDS: Aspirin E.C. 81 MG Tablet PO (08:50)
[2024-02-27] MEDS: Juven (unflavored) Packet 1 PACKET PO ×2 (08:50→18:24)
[2024-02-27] MEDS: Allopurinol 300 MG Tablet PO (08:50)
[2024-02-27] MEDS: Losartan Potassium 100 MG Tablet PO (08:51)
[2024-02-27] MEDS: Senna/Docusate Sodium 1 Tablet 2 TABLET PO ×2 (08:52→22:47)
[2024-02-27] MEDS: Paroxetine 20 MG Tablet 40 MG PO (08:52)
[2024-02-27] MEDS: Pantoprazole Sodium 40 MG Tablet PO (08:52)
[2024-02-27] MEDS: LINAGLIPTIN 5 MG TABLET PO (08:53)
[2024-02-27] MEDS: Cholecalciferol (VIT D3) 25 MCG TABLET (1,000 UNITS) PO (08:53)
--- NOTE | 2024-02-27 09:28 | NURSING ---
Squeezer Operator Note; MDS for 02/27/2024 Complete
[2024-02-27] MEDS: amLODIPine 5 MG Tablet PO ×2 (11:00→22:50)
[2024-02-27] MEDS: Menthol/Lanolin/Calamine/Znox 113 GM Tube 1 APPLIC TOPICAL ×2 (11:01→22:51)
[2024-02-27] MEDS: Nystatin Powder 15gm Bottle 1 APPLIC TOPICAL ×2 (11:02→22:50)
[2024-02-27 11:37] LABS: Bedside Glucose 173 mg/dL (74-106)
[2024-02-27 16:55] LABS: Bedside Glucose 156 mg/dL (74-106)
[2024-02-27 22:27] LABS: Bedside Glucose 158 mg/dL (74-106)
[2024-02-27] MEDS: Metoprolol(XL)Succ 25 MG Tablet 12.5 MG PO (22:47)
[2024-02-27] MEDS: Doxepin Hcl 25 MG Capsule PO (22:49)
[2024-02-27] MEDS: Insulin Glargine-YFGN 100 UNIT/ML Pen 30 UNIT SC (22:55)
[2024-02-28] VITALS (9 sets, daily range): BP systolic 147–191; BP diastolic 63–81; PULSE 61–80; RESP 16; TEMP 36.2; O2SAT 100
[2024-02-28] MEDS: Enoxaparin 40 MG/0.4 ML Syringe SC (05:37)
[2024-02-28] MEDS: cloNIDine HCl 0.1 MG Tablet PO (05:37)
[2024-02-28] MEDS: Levothyroxine 137 MCG Tablet PO (05:37)
[2024-02-28] MEDS: hydrALAZINE 50 MG Tablet PO (05:38)
[2024-02-28] MEDS: Acetaminophen 500 MG Tablet 1000 MG PO ×3 (05:39→22:29)
[2024-02-28] MEDS: Furosemide 40 MG Tablet PO ×2 (05:39→08:50)
[2024-02-28] MEDS: traMADol 50 MG Tablet PO ×2 (05:45→11:51)
[2024-02-28 05:58] LABS: Absolute Lymphocyte Count 2.27 X10^3/uL (0.83-4.51); Absolute Neutrophil Count 3.8 X10^3/uL (2.0-7.7); Basophil# 0.03 X10^3/uL; Basophil% 0.4 % (0-1); Eosinophils% 1.3 % (0-5); Hematocrit 34.3 % (40-54); Hemoglobin 10.7 g/dL (13.0-16.5); Lymphocyte # 2.27 X10^3/ul (0.83-4.51); Lymphocyte % 30.5 % (19-41); Mean Corp Hgb Conc 31.2 g/dL (32-36); Mean Corpuscular Hgb 26.4 pg (27.0-32.0); Mean Corpuscular Volume 84.7 fL (80-94); Mean Platelet Vol. 8.9 fl (6.2-12.0); Monocyte# 1.25 X10^3/uL; Monocyte% 16.8 % (0-10); NRBC Flagged by Analyzer 0 % (0-5); Neutrophil # 3.75 X10^3/uL (2.7-7.7); Neutrophil % 50.5 % (47-70); Platelet Count 499 K/mm3 (150-450); RBC Distribution Width CV 16.3 % (11.6-14.6); RBC Distribution Width SD 51.1 fl (35.1-43.9); Red Blood Count 4.05 M/mm3 (4.6-6.2); White Blood Count 7.4 K/mm3 (4.4-11.0)
[2024-02-28 06:43] LABS: Bedside Glucose 138 mg/dL (74-106)
[2024-02-28 06:52] LABS: Anion Gap 4 (5-15); BUN 22 mg/dL (7-18); BUN/Creat Ratio 23.4 RATIO (10-20); Calcium,Total 8.8 mg/dL (8.5-10.1); Chloride 105 mmol/L (98-107); Creatinine, Serum 0.94 mg/dL (0.70-1.30); EST Glomerular Filtration Rate 82 mL/min (>60); Est Glom Filt Rate - Afr Amer 99 mL/min (>60); Estimated Creatinine Clearance 82.26 ml/min; Glucose 139 mg/dL (74-106); Potassium 3.2 mmol/L (3.5-5.1); Sodium Level 136 mmol/L (136-145)
[2024-02-28] MEDS: Metoprolol(XL)Succ 25 MG Tablet 12.5 MG PO ×2 (08:48→22:29)
[2024-02-28] MEDS: Insulin Lispro 100 UNIT/ML INSULN.PEN 13 UNIT SC ×3 (08:48→17:23)
[2024-02-28] MEDS: Juven (unflavored) Packet 1 PACKET PO ×2 (08:48→17:23)
[2024-02-28] MEDS: LINAGLIPTIN 5 MG TABLET PO (08:49)
[2024-02-28] MEDS: Senna/Docusate Sodium 1 Tablet 2 TABLET PO ×2 (08:49→22:30)
[2024-02-28] MEDS: Aspirin E.C. 81 MG Tablet PO (08:49)
[2024-02-28] MEDS: Pantoprazole Sodium 40 MG Tablet PO (08:49)
[2024-02-28] MEDS: Cholecalciferol (VIT D3) 25 MCG TABLET (1,000 UNITS) PO (08:50)
[2024-02-28] MEDS: Allopurinol 300 MG Tablet PO (08:50)
[2024-02-28] MEDS: Losartan Potassium 100 MG Tablet PO (08:50)
[2024-02-28] MEDS: Nystatin Powder 15gm Bottle 1 APPLIC TOPICAL ×2 (08:50→22:31)
[2024-02-28] MEDS: amLODIPine 5 MG Tablet PO ×2 (08:50→22:29)
[2024-02-28] MEDS: Paroxetine 20 MG Tablet 40 MG PO (08:50)
[2024-02-28] MEDS: Potassium Chloride Oral Tablet 20 MEQ PO ×2 (08:51→17:23)
[2024-02-28] MEDS: Menthol/Lanolin/Calamine/Znox 113 GM Tube 1 APPLIC TOPICAL ×2 (08:51→22:31)
[2024-02-28] MEDS: Potassium Chloride Oral Tablet 20 MEQ 40 MEQ PO (08:53)
[2024-02-28 11:54] LABS: Bedside Glucose 181 mg/dL (74-106)
[2024-02-28] MEDS: Tuberculin,Purif.prot.deriv. 50 TU/ML Vial 0.1 ML ID (11:56)
[2024-02-28] MEDS: hydrALAZINE 50 MG Tablet 100 MG PO ×2 (14:03→22:30)
[2024-02-28] MEDS: cloNIDine HCl 0.2 MG Tablet PO ×2 (14:04→22:29)
--- NOTE | 2024-02-28 16:32 | CASEMGMT ---
Social Work SW met with patient at bedside to complete MDS. Patient BIM is () and PHQ-2 (11/19). Patient expressed little interest doing things due to legs hurting. SW inquired about patient's feeling regarding transition of care meetings. Patient informed SW that he does not want to go to halfway care. Patient informed SW that his is wanting it her way or the highway. Patient continues to decline placement for halfway care or assisted living. GREGOR Patel
[2024-02-28 16:41] LABS: Bedside Glucose 168 mg/dL (74-106)
[2024-02-28 22:15] LABS: Bedside Glucose 185 mg/dL (74-106)
[2024-02-28] MEDS: Doxepin Hcl 25 MG Capsule PO (22:29)
[2024-02-28] MEDS: Insulin Glargine-YFGN 100 UNIT/ML Pen 30 UNIT SC (22:30)
[2024-02-29] VITALS (8 sets, daily range): BP systolic 102–140; BP diastolic 50–61; PULSE 56–67; RESP 16–18; TEMP 36.5; O2SAT 96–97
[2024-02-29] MEDS: traMADol 50 MG Tablet PO ×2 (03:11→20:28)
[2024-02-29] MEDS: Enoxaparin 40 MG/0.4 ML Syringe SC (05:40)
[2024-02-29] MEDS: Acetaminophen 500 MG Tablet 1000 MG PO ×3 (05:40→20:27)
[2024-02-29] MEDS: Levothyroxine 137 MCG Tablet PO (05:41)
[2024-02-29] MEDS: Furosemide 40 MG Tablet PO ×2 (05:41→13:22)
[2024-02-29] MEDS: cloNIDine HCl 0.2 MG Tablet PO ×3 (05:41→20:26)
[2024-02-29] MEDS: hydrALAZINE 50 MG Tablet 100 MG PO ×3 (05:41→20:28)
--- NOTE | 2024-02-29 06:18 | NURSING ---
Blood pressure this AM 117/50. Medications administered per orders. Will recheck.
[2024-02-29 06:27] LABS: Anion Gap 5 (5-15); BUN 28 mg/dL (7-18); BUN/Creat Ratio 28.6 RATIO (10-20); Chloride 108 mmol/L (98-107); Creatinine, Serum 0.98 mg/dL (0.70-1.30); EST Glomerular Filtration Rate 79 mL/min (>60); Est Glom Filt Rate - Afr Amer 95 mL/min (>60); Glucose 165 mg/dL (74-106); Potassium 3.7 mmol/L (3.5-5.1); Sodium Level 139 mmol/L (136-145)
[2024-02-29 06:28] LABS: Bedside Glucose 160 mg/dL (74-106)
--- NOTE | 2024-02-29 06:56 | NURSING ---
BP at this time 102/54, Pulse 57. Will continue to monitor.
[2024-02-29] MEDS: Aspirin E.C. 81 MG Tablet PO (07:58)
[2024-02-29] MEDS: Juven (unflavored) Packet 1 PACKET PO ×2 (07:58→17:57)
[2024-02-29] MEDS: Losartan Potassium 100 MG Tablet PO (07:59)
[2024-02-29] MEDS: Potassium Chloride Oral Tablet 20 MEQ PO ×2 (07:59→17:57)
[2024-02-29] MEDS: Allopurinol 300 MG Tablet PO (07:59)
[2024-02-29] MEDS: Paroxetine 20 MG Tablet 40 MG PO (08:00)
[2024-02-29] MEDS: amLODIPine 5 MG Tablet PO ×2 (08:00→20:27)
[2024-02-29] MEDS: Pantoprazole Sodium 40 MG Tablet PO (08:00)
[2024-02-29] MEDS: Senna/Docusate Sodium 1 Tablet 2 TABLET PO ×2 (08:00→20:26)
[2024-02-29] MEDS: LINAGLIPTIN 5 MG TABLET PO (08:01)
[2024-02-29] MEDS: Cholecalciferol (VIT D3) 25 MCG TABLET (1,000 UNITS) PO (08:01)
[2024-02-29] MEDS: Insulin Lispro 100 UNIT/ML INSULN.PEN 13 UNIT SC ×2 (08:01→12:06)
[2024-02-29] MEDS: Metoprolol(XL)Succ 25 MG Tablet 12.5 MG PO ×2 (08:01→20:27)
[2024-02-29] MEDS: Nystatin Powder 15gm Bottle 1 APPLIC TOPICAL ×2 (08:06→20:34)
[2024-02-29] MEDS: Menthol/Lanolin/Calamine/Znox 113 GM Tube 1 APPLIC TOPICAL ×2 (08:06→20:34)
[2024-02-29 11:17] LABS: Bedside Glucose 213 mg/dL (74-106)
--- NOTE | 2024-02-29 13:24 | CASEMGMT ---
Social Work JENNIFER received a call from patient's , Mayda checking on patient's next review date. JENNIFER informed Mayda that the patient has NRD 03/04. Patient has expected [facility] anticipated. Mayda informed JENNIFER that if the patient does not agree to placement at a care facility, she would leave. Mayda informed SW that she is unable to care for patient. Mayda informed SW that she is unable to help the patient with care in the home. Mayda informed SW that she does not have the finances for assisted living JENNIFER will continue to discuss terminal operations manager care plans with patient. GREGOR Patel
[2024-02-29 16:39] LABS: Bedside Glucose 95 mg/dL (74-106)
[2024-02-29] MEDS: Doxepin Hcl 25 MG Capsule PO (20:27)
[2024-02-29] MEDS: Insulin Glargine-YFGN 100 UNIT/ML Pen 30 UNIT SC (20:30)
--- NOTE | 2024-02-29 20:30 | NURSING ---
Dressings changed to BLE, patient tolerated well.
[2024-02-29 23:42] LABS: Bedside Glucose 229 mg/dL (74-106)
[2024-03-01] VITALS (7 sets, daily range): BP systolic 121–149; BP diastolic 55–63; PULSE 56–75; RESP 18–20; TEMP 36.4; O2SAT 95–98
[2024-03-01] MEDS: oxyCODONE 5 MG Tablet PO ×2 (00:53→22:59)
[2024-03-01] MEDS: Enoxaparin 40 MG/0.4 ML Syringe SC (05:56)
[2024-03-01] MEDS: Levothyroxine 137 MCG Tablet PO (05:56)
[2024-03-01] MEDS: cloNIDine HCl 0.2 MG Tablet PO ×3 (05:56→23:03)
[2024-03-01] MEDS: Acetaminophen 500 MG Tablet 1000 MG PO ×3 (05:56→23:00)
[2024-03-01] MEDS: hydrALAZINE 50 MG Tablet 100 MG PO ×3 (05:56→23:01)
[2024-03-01] MEDS: Furosemide 40 MG Tablet PO ×2 (05:57→14:10)
[2024-03-01 06:35] LABS: Bedside Glucose 145 mg/dL (74-106)
[2024-03-01] MEDS: Losartan Potassium 100 MG Tablet PO (09:28)
[2024-03-01] MEDS: Potassium Chloride Oral Tablet 20 MEQ PO ×2 (09:28→16:03)
[2024-03-01] MEDS: Pantoprazole Sodium 40 MG Tablet PO (09:28)
[2024-03-01] MEDS: amLODIPine 5 MG Tablet PO ×2 (09:28→23:02)
[2024-03-01] MEDS: LINAGLIPTIN 5 MG TABLET PO (09:28)
[2024-03-01] MEDS: Cholecalciferol (VIT D3) 25 MCG TABLET (1,000 UNITS) PO (09:28)
[2024-03-01] MEDS: Insulin Lispro 100 UNIT/ML INSULN.PEN 13 UNIT SC ×3 (09:29→17:30)
[2024-03-01] MEDS: Aspirin E.C. 81 MG Tablet PO (09:29)
[2024-03-01] MEDS: Juven (unflavored) Packet 1 PACKET PO ×2 (09:29→16:03)
[2024-03-01] MEDS: Allopurinol 300 MG Tablet PO (09:29)
[2024-03-01] MEDS: Senna/Docusate Sodium 1 Tablet 2 TABLET PO ×2 (09:29→23:00)
[2024-03-01] MEDS: Nystatin Powder 15gm Bottle 1 APPLIC TOPICAL ×2 (09:32→23:04)
[2024-03-01] MEDS: Paroxetine 20 MG Tablet 40 MG PO (09:32)
[2024-03-01] MEDS: Metoprolol(XL)Succ 25 MG Tablet 12.5 MG PO ×2 (09:33→23:01)
[2024-03-01] MEDS: Menthol/Lanolin/Calamine/Znox 113 GM Tube 1 APPLIC TOPICAL ×2 (09:39→23:03)
[2024-03-01 12:11] LABS: Bedside Glucose 147 mg/dL (74-106)
[2024-03-01 17:42] LABS: Bedside Glucose 147 mg/dL (74-106)
[2024-03-01 22:15] LABS: Bedside Glucose 175 mg/dL (74-106)
[2024-03-01] MEDS: Doxepin Hcl 25 MG Capsule PO (23:02)
[2024-03-01] MEDS: Insulin Glargine-YFGN 100 UNIT/ML Pen 30 UNIT SC (23:03)
[2024-03-02] VITALS (9 sets, daily range): BP systolic 106–119; BP diastolic 42–57; PULSE 58–61; RESP 16–18; TEMP 35.8; O2SAT 97
[2024-03-02] MEDS: Acetaminophen 500 MG Tablet 1000 MG PO ×3 (05:47→20:44)
[2024-03-02] MEDS: Enoxaparin 40 MG/0.4 ML Syringe SC (05:47)
[2024-03-02] MEDS: Furosemide 40 MG Tablet PO ×2 (05:47→14:44)
[2024-03-02] MEDS: Levothyroxine 137 MCG Tablet PO (05:48)
[2024-03-02] MEDS: hydrALAZINE 50 MG Tablet 100 MG PO ×3 (05:49→20:44)
[2024-03-02] MEDS: cloNIDine HCl 0.2 MG Tablet PO ×3 (05:49→20:45)
[2024-03-02 06:39] LABS: Bedside Glucose 118 mg/dL (74-106)
[2024-03-02] MEDS: Insulin Lispro 100 UNIT/ML INSULN.PEN 13 UNIT SC ×3 (08:11→18:18)
[2024-03-02] MEDS: Aspirin E.C. 81 MG Tablet PO (08:12)
[2024-03-02] MEDS: Potassium Chloride Oral Tablet 20 MEQ PO ×2 (08:13→17:26)
[2024-03-02] MEDS: Juven (unflavored) Packet 1 PACKET PO ×2 (08:13→17:26)
[2024-03-02] MEDS: Allopurinol 300 MG Tablet PO (08:13)
[2024-03-02] MEDS: Menthol/Lanolin/Calamine/Znox 113 GM Tube 1 APPLIC TOPICAL ×2 (08:13→20:46)
[2024-03-02] MEDS: Losartan Potassium 100 MG Tablet PO (08:14)
[2024-03-02] MEDS: amLODIPine 5 MG Tablet PO ×2 (08:14→20:45)
[2024-03-02] MEDS: Nystatin Powder 15gm Bottle 1 APPLIC TOPICAL ×2 (08:14→20:45)
[2024-03-02] MEDS: Paroxetine 20 MG Tablet 40 MG PO (08:15)
[2024-03-02] MEDS: Senna/Docusate Sodium 1 Tablet 2 TABLET PO ×2 (08:15→20:45)
[2024-03-02] MEDS: Pantoprazole Sodium 40 MG Tablet PO (08:15)
[2024-03-02] MEDS: Metoprolol(XL)Succ 25 MG Tablet 12.5 MG PO ×2 (08:16→20:44)
[2024-03-02] MEDS: Cholecalciferol (VIT D3) 25 MCG TABLET (1,000 UNITS) PO (08:17)
[2024-03-02] MEDS: LINAGLIPTIN 5 MG TABLET PO (08:17)
[2024-03-02] MEDS: oxyCODONE 5 MG Tablet PO ×2 (09:50→20:39)
[2024-03-02 11:49] LABS: Bedside Glucose 149 mg/dL (74-106)
[2024-03-02 17:11] LABS: Bedside Glucose 68 mg/dL (74-106)
[2024-03-02 17:40] LABS: Bedside Glucose 90 mg/dL (74-106)
--- NOTE | 2024-03-02 18:20 | NURSING ---
Patient BGT by finger prick 68 this evening. Patient given snack and was 90 on recheck after intervention. Patient ate 100% of dinner and was 154. Evening insulin given as ordered.
[2024-03-02 18:37] LABS: Bedside Glucose 154 mg/dL (74-106)
[2024-03-02] MEDS: Insulin Glargine-YFGN 100 UNIT/ML Pen 30 UNIT SC (20:41)
[2024-03-02] MEDS: Doxepin Hcl 25 MG Capsule PO (20:43)
[2024-03-02 21:07] LABS: Bedside Glucose 186 mg/dL (74-106)
[2024-03-03] VITALS (8 sets, daily range): BP systolic 106–144; BP diastolic 42–74; PULSE 58–82; RESP 17; TEMP 36.3; O2SAT 98
[2024-03-03] MEDS: oxyCODONE 5 MG Tablet PO ×3 (01:46→18:14)
[2024-03-03] MEDS: cloNIDine HCl 0.2 MG Tablet PO ×3 (05:22→23:35)
[2024-03-03] MEDS: Furosemide 40 MG Tablet PO ×2 (05:22→13:18)
[2024-03-03] MEDS: Levothyroxine 137 MCG Tablet PO (05:22)
[2024-03-03] MEDS: Enoxaparin 40 MG/0.4 ML Syringe SC (05:22)
[2024-03-03] MEDS: hydrALAZINE 50 MG Tablet 100 MG PO ×3 (05:22→23:34)
[2024-03-03] MEDS: Acetaminophen 500 MG Tablet 1000 MG PO ×3 (05:23→23:34)
[2024-03-03 06:20] LABS: Bedside Glucose 124 mg/dL (74-106)
[2024-03-03] MEDS: Potassium Chloride Oral Tablet 20 MEQ PO ×2 (09:16→18:03)
[2024-03-03] MEDS: Allopurinol 300 MG Tablet PO (09:16)
[2024-03-03] MEDS: amLODIPine 5 MG Tablet PO ×2 (09:16→23:36)
[2024-03-03] MEDS: Aspirin E.C. 81 MG Tablet PO (09:16)
[2024-03-03] MEDS: Juven (unflavored) Packet 1 PACKET PO ×2 (09:16→18:02)
[2024-03-03] MEDS: Paroxetine 20 MG Tablet 40 MG PO (09:16)
[2024-03-03] MEDS: Losartan Potassium 100 MG Tablet PO (09:16)
[2024-03-03] MEDS: Senna/Docusate Sodium 1 Tablet 2 TABLET PO ×2 (09:17→23:34)
[2024-03-03] MEDS: Pantoprazole Sodium 40 MG Tablet PO (09:17)
[2024-03-03] MEDS: LINAGLIPTIN 5 MG TABLET PO (09:17)
[2024-03-03] MEDS: Cholecalciferol (VIT D3) 25 MCG TABLET (1,000 UNITS) PO (09:18)
[2024-03-03] MEDS: Metoprolol(XL)Succ 25 MG Tablet 12.5 MG PO ×2 (09:18→23:37)
[2024-03-03] MEDS: Insulin Lispro 100 UNIT/ML INSULN.PEN 13 UNIT SC ×3 (09:21→18:04)
[2024-03-03] MEDS: DULAGLUTIDE 3 MG/0.5 ML PEN.INJCTR SQ (09:25)
--- NOTE | 2024-03-03 10:25 | WOUNDNOTE ---
wound photo: right lower leg
--- NOTE | 2024-03-03 10:27 | WOUNDNOTE ---
wound photo: left lower leg
[2024-03-03 11:12] LABS: Bedside Glucose 186 mg/dL (74-106)
[2024-03-03] MEDS: Menthol/Lanolin/Calamine/Znox 113 GM Tube 1 APPLIC TOPICAL ×2 (12:07→23:39)
[2024-03-03] MEDS: Nystatin Powder 15gm Bottle 1 APPLIC TOPICAL ×2 (12:07→23:39)
--- NOTE | 2024-03-03 13:38 | MDS.RN ---
Information for the MDS was obtained from review of the clinical record, interview of resident, staff, and direct observation of resident?s care.
[2024-03-03 14:44] LABS: Bedside Glucose 129 mg/dL (74-106)
[2024-03-03 16:58] LABS: Bedside Glucose 133 mg/dL (74-106)
[2024-03-03 22:05] LABS: Bedside Glucose 140 mg/dL (74-106)
[2024-03-03] MEDS: Doxepin Hcl 25 MG Capsule PO (23:33)
[2024-03-03] MEDS: Insulin Glargine-YFGN 100 UNIT/ML Pen 30 UNIT SC (23:35)
[2024-03-04] VITALS (7 sets, daily range): BP systolic 123–153; BP diastolic 47–60; PULSE 60–65; RESP 16; TEMP 36.5; O2SAT 97; BMI 41.2
[2024-03-04] MEDS: cloNIDine HCl 0.2 MG Tablet PO ×3 (05:58→20:18)
[2024-03-04] MEDS: traMADol 50 MG Tablet PO ×2 (05:58→15:13)
[2024-03-04] MEDS: Enoxaparin 40 MG/0.4 ML Syringe SC (05:59)
[2024-03-04] MEDS: hydrALAZINE 50 MG Tablet 100 MG PO ×3 (05:59→20:21)
[2024-03-04] MEDS: Acetaminophen 500 MG Tablet 1000 MG PO ×3 (06:00→20:19)
[2024-03-04] MEDS: Furosemide 40 MG Tablet PO ×2 (06:00→13:21)
[2024-03-04] MEDS: Levothyroxine 137 MCG Tablet PO (06:01)
[2024-03-04 07:08] LABS: Bedside Glucose 120 mg/dL (74-106)
[2024-03-04] MEDS: Juven (unflavored) Packet 1 PACKET PO ×2 (08:23→17:47)
[2024-03-04] MEDS: Insulin Lispro 100 UNIT/ML INSULN.PEN 13 UNIT SC ×3 (08:23→17:48)
[2024-03-04] MEDS: Potassium Chloride Oral Tablet 20 MEQ PO ×2 (08:24→17:47)
[2024-03-04] MEDS: Senna/Docusate Sodium 1 Tablet 2 TABLET PO ×2 (08:25→20:21)
[2024-03-04] MEDS: amLODIPine 5 MG Tablet PO ×2 (08:25→20:19)
[2024-03-04] MEDS: Pantoprazole Sodium 40 MG Tablet PO (08:25)
[2024-03-04] MEDS: LINAGLIPTIN 5 MG TABLET PO (08:25)
[2024-03-04] MEDS: Metoprolol(XL)Succ 25 MG Tablet 12.5 MG PO ×2 (08:25→20:20)
[2024-03-04] MEDS: Aspirin E.C. 81 MG Tablet PO (08:25)
[2024-03-04] MEDS: Paroxetine 20 MG Tablet 40 MG PO (08:25)
[2024-03-04] MEDS: Allopurinol 300 MG Tablet PO (08:25)
[2024-03-04] MEDS: Cholecalciferol (VIT D3) 25 MCG TABLET (1,000 UNITS) PO (08:26)
[2024-03-04] MEDS: Losartan Potassium 100 MG Tablet PO (08:27)
[2024-03-04] MEDS: Nystatin Powder 15gm Bottle 1 APPLIC TOPICAL ×2 (08:27→20:55)
[2024-03-04] MEDS: Menthol/Lanolin/Calamine/Znox 113 GM Tube 1 APPLIC TOPICAL ×2 (08:27→20:55)
[2024-03-04] MEDS: oxyCODONE 5 MG Tablet PO ×2 (10:31→20:18)
[2024-03-04 11:13] LABS: Bedside Glucose 123 mg/dL (74-106)
--- NOTE | 2024-03-04 13:35 | CASEMGMT ---
Social Work Pt insurance issued a Notice of Medicare Non Coverage with care home services ending 03/06/24. This worker presented letter to patient today and explained appeal rights. Pt can DC on 03/07/24. Pt signed form. This worker discussed DC options with patient and concerns about him returning home. Pt stated he is going home and did not want to talk about any other option. Pt stated he would be agreeable to home health services and using the company he had been using out of [place]. This worker telephoned patient's and let her know of DC date. stated she will agree to pt returning home and is not going to leave or divorce him over this. stated patient was using [facility] prior to his hospital admission and would like to continue with same. stated SW will need to arrange transportation with an ambulance service as she has no way of getting patient home. This worker discussed physician services that come into pt's homes. stated she had a short phone conversation with a company called [employer] which is through his insurance. She plans to give them a call to learn more about what that company has to offer. SW will continue to assist patient with DC planning.
--- NOTE | 2024-03-04 14:00 | CASEMGMT ---
Social Work This worker faxed script for Lift Chair to [facility] per request. Kathya MA
[2024-03-04 17:13] LABS: Bedside Glucose 91 mg/dL (74-106)
[2024-03-04] MEDS: Doxepin Hcl 25 MG Capsule PO (20:23)
--- NOTE | 2024-03-04 21:04 | DS.PCM_ITS ---
Providers Date of Admission: 02/20/24 Primary Care Physician: Dr. Gil Wheeler MD Consultations 02/22/24 07:29 Consult: Onc/Wound/sourcing assistant Routine Comment: Reason For Visit: DEBILITY Diagnosis Discharge Diagnosis (1) Debility: Status: Resolved Code(s): R53.81 - Other malaise (2) Multiple falls: Status: Acute Code(s): R29.6 - Repeated falls (3) Lymphedema: Status: Acute Code(s): I89.0 - Lymphedema, not elsewhere classified (4) Venous stasis ulcers: Status: Acute Code(s): I83.009 - Varicose veins of unspecified lower extremity with ulcer of unspecified site; L97.909 - Non-pressure chronic ulcer of unspecified part of unspecified lower leg with unspecified severity (5) Diabetes mellitus: Status: Acute Code(s): E11.9 - Type 2 diabetes mellitus without complications (6) Hearing loss: Status: Acute Code(s): H91.90 - Unspecified hearing loss, unspecified ear (7) Depression: Status: Acute Code(s): F32.9 - Major depressive disorder, single episode, unspecified (8) Hypokalemia: Status: Acute Code(s): E87.6 - Hypokalemia (9) Insomnia: Status: Acute Code(s): G47.00 - Insomnia, unspecified (10) GERD (gastroesophageal reflux disease): Status: Acute Code(s): K21.9 - Gastro-esophageal reflux disease without esophagitis (11) Gout: Status: Acute Code(s): M10.9 - Gout, unspecified (12) Hypothyroidism: Status: Acute Code(s): E03.9 - Hypothyroidism, unspecified (13) Anemia: Status: Acute Code(s): D64.9 - Anemia, unspecified (14) Essential (primary) hypertension: Status: Acute Code(s): I10 - Essential (primary) hypertension Plan 78 year old male with below past medical history hospitalized for weakness, falls, bilateral lower extremity venous stasis ulcers, lymphedema, admitted to TCU with debility, here for rehabilitation, strengthening, prior to disposition determination. * Debility - PT/OT. * Pain - Tylenol 1000mg q6 prn pain (1-10). * Bowel - senna/colace 2 tablets bid. * Adult immunization - Administer pneumonia vaccine, covid vaccine, flu vaccine as appropriate. * DVT prophylaxis - Lovenox 40mg sc daily. * Gout - Allopurinol 300mg daily. * Hypertension - Metoprolol succinate 12.5mg bid, Losartan 100mg daily, Amlodipine 5mg bid, Clonidine 0.1mg tid. * CV prophylaxis - Aspirin 81mg daily. * Vitamin D deficiency - D3 25mcg daily. * Insomnia - Doxepin 25mg qhs, stable chronic fpc use, GDR not recommended. * Diabetes Mellitus II - Trulicity 3mg per week, Tradjenta 5mg daily, Glargine 25 units qhs, Humalog 5 units tidac. * Lymphedema/venous stasis ulcers - Furosemide 40mg bidlx, compression, consult wound nurse, Edy 1 packet bidcm. * Hypothyroidism - Levothyroxine 137mcg daily. * Skin irritation - Calmoseptine topical bid. * Tinea Corporis - Nystatin powder topical bid. * GERD - Pantoprazole 40mg daily. * Hypokalemia - KCL ER 20meq bidcm. Medications at Discharge Home Medications paroxetine HCl 40 mg tablet 40 mg PO DAILY depression 09/27/16 potassium chloride 20 mEq tablet,extended release(part/cryst) 20 meq PO BIDCM supplement 09/27/16 doxepin 25 mg capsule 25 mg PO QHS sleep #30 caps 04/24/19 pantoprazole 40 mg tablet,delayed release 40 mg PO DAILY Gerd #30 tabs 04/24/19 metoprolol succinate 25 mg tablet,extended release 24 hr 12.5 mg (1/2 x 25 mg) PO BID BP #90 tabs 03/28/22 levothyroxine 137 mcg tablet 137 mcg PO DAILY Thyroid 10/31/23 losartan 100 mg tablet 100 mg PO DAILY BP 10/31/23 amlodipine 5 mg tablet 5 mg PO BID BP #60 tabs 11/15/23 aspirin 81 mg tablet,delayed release 81 mg PO BREAKFAST blood thinner #1 TAB 11/15/23 furosemide 40 mg tablet 40 mg PO BIDLX diuretic #60 tabs 11/15/23 linagliptin 5 mg tablet 5 mg PO DAILY diabetes #30 tabs 11/15/23 sennosides 8.6 mg-docusate sodium 50 mg tablet (Stool Softener-Stimulant Laxative) 2 tab PO BID stool softener #60 tabs 11/15/23 dulaglutide 3 mg/0.5 mL subcutaneous pen injector (Trulicity) 3 mg subcut diabetes 02/15/24 menthol 0.44 %-zinc oxide 20.6 % topical ointment (Calmoseptine) 1 applic topi raya BID redness #0 grams 02/20/24 acetaminophen 500 mg tablet 1,000 mg (2 x 500 mg) PO Q8 #0 tabs 03/04/24 allopurinol 300 mg tablet 300 mg PO DAILYCM 30 days #30 tabs 03/04/24 arginine 7 gram-glutam 7 gram-CaHMB 1.5 [id number]-tj-min oral pwd pkt (Edy (with collagen)) 1 packet PO BIDCM 30 days #60 ea 03/04/24 cholecalciferol (vitamin D3) 25 mcg (1,000 unit) tablet 25 mcg PO DAILY 30 days #30 tabs 03/04/24 clonidine HCl 0.2 mg tablet 0.2 mg PO TID 30 days #90 tabs 03/04/24 hydralazine 50 mg tablet 100 mg (2 x 50 mg) PO TID 30 days #180 tabs 03/04/24 insulin glargine-yfgn 100 unit/mL (3 mL) subcutaneous pen 30 unit (0.3 mL) subcut QHS #0 mL 03/04/24 insulin lispro 100 unit/mL subcutaneous pen (Humalog KwikPen (U-100) Insulin) 13 unit (0.13 mL) subcut TIDAC #0 mL 03/04/24 Hospital Course Operations None Procedures None Summary of Care Provided Minutes Spent on Discharge: 35 Hospital Course: 78 year old male with below past medical history hospitalized for weakness, falls, bilateral lower extremity venous stasis ulcers, lymphedema, admitted to TCU with debility, here for rehabilitation, strengthening, prior to disposition determination. Discharge home with 03/07/2024, [facility] PT/OT. Physical Exam Const alert General Appearance: cooperative HEENT normocephalic Eyes PERRL and EOMs intact bilaterally Neck supple, no JVD and no carotid bruits Resp normal respiratory effort, normal air movement and clear to auscultation bilaterally Cardio regular rate and regular rhythm GI normal to inspection, nondistended, normoactive bowel sounds, non-tender and non-distended Extremity normal capillary refill Extremity Narrative: Bilateral lower extremities dressed. General Extremity: edema Skin no rashes or lesions noted General Skin Exam: no breakdown Psych affect normal Appearance: appropriate Weight / BMI Weight Weight: 122.924 kg Body Mass Index (BMI) 41.2 ABG / Lab / Microbiology Data 02/28/24 05:35 02/29/24 05:45 Laboratory: Laboratory Results - last 24 hr 03/03/24 21:42: POC Glucose 140 H 03/04/24 06:16: POC Glucose 120 H 03/04/24 10:54: POC Glucose 123 H 03/04/24 16:51: POC Glucose 91 D/C Instructions Discharge Diet: No restrictions Discharge Activity: Return to Normal Activity, May Shower and Use Walker May resume sexual activity in: No Restrictions Weight Bearing Status: Weight bearing as tolerated Call your doctor if you observe: Fever of 101 or Higher, Inability to urinate, Inability to have a bowel movement, Shortness of breath, Dizziness, Fainting spells, Swelling in the ankles, Chest pain and Uncontrolled pain Additional Instructions: Discharge home with 03/07/2024, [facility] PT/OT. Meaningful Use Info Meaningful Use Diagnoses (Choose all that apply): None applicable Discharge Plan Admission Admit Date/Time: 02/20/24 14:30 Primary Reason for Your Visit: Debility. Attending Provider: Gil Wheeler Chi Primary Care Provider: Gil Wheeler Chi Instructions Additional Instructions / Restrictions: Discharge home with 03/07/2024, [facility] PT/OT. Discharge Orders/Prescriptions Prescriptions: New acetaminophen 500 mg Tablet 1,000 mg PO Q8 Qty: 0 0RF clonidine HCl 0.2 mg Tablet 0.2 mg PO TID 30 Days Qty: 90 0RF allopurinol 300 mg Tablet 300 mg PO DAILYCM 30 Days Qty: 30 0RF hydralazine 50 mg Tablet 100 mg PO TID 30 Days Qty: 180 0RF insulin lispro [Humalog KwikPen Insulin] 100 unit/mL Insulin Pen 13 unit subcut TIDAC Qty: 0 0RF cholecalciferol (vitamin D3) 25 mcg (1,000 unit) Tablet 25 mcg PO DAILY 30 Days Qty: 30 0RF Edy (with collagen) 7-7-1.5 gram Powder In Packet 1 packet PO BIDCM 30 Days Qty: 60 0RF insulin glargine-yfgn 100 unit/mL (3 mL) Insulin Pen 30 unit subcut QHS Qty: 0 0RF Continued potassium chloride 20 MEQ tablet 20 meq PO BIDCM Patient Comments: SUPPLEMENT paroxetine HCl 40 MG tablet 40 mg PO DAILY Hold Instructions: hold until Dr. Wheeler restarts at next office visit Patient Comments: MENTAL HEALTH doxepin 25 MG capsule 25 mg PO QHS Qty: 30 0RF pantoprazole 40 MG tablet 40 mg PO DAILY Qty: 30 0RF levothyroxine 137 mcg tablet 137 mcg PO DAILY losartan 100 mg tablet 100 mg PO DAILY furosemide 40 mg Tablet 40 mg PO BIDLX Qty: 60 0RF amlodipine 5 mg Tablet 5 mg PO BID Qty: 60 0RF aspirin 81 mg Tablet,Delayed Release (Dr/Ec) 81 mg PO BREAKFAST Qty: 1 0RF linagliptin 5 mg tablet 5 mg PO DAILY Qty: 30 0RF sennosides-docusate sodium [Stool Softener-Stimulant Laxat] 8.6-50 mg Tablet 2 tab PO BID Qty: 60 0RF Trulicity 3 mg/0.5 mL pen injector 3 mg subcut Patient Comments: Patient's family to bring from home menthol-zinc oxide [Calmoseptine] 0.44-20.6 % Ointment 1 applic topical BID Qty: 0 0RF Protocol: *Topical Application Instructions APPLICATION INSTRUCTIONS: coccyx metoprolol succinate 25 mg tablet extended release 24 hr 12.5 mg PO BID Qty: 90 3RF Discontinued ergocalciferol (vitamin D2) 50,000 UNIT capsule 50,000 unit PO QMONTH Hold Instructions: on hold insulin glargine 100 UNITS/ML insulin pen 25 units subcut QHS allopurinol 100 MG tablet 100 mg PO DAILY 0RF alprazolam 0.25 mg Tablet 0.25 mg PO TID PRN (Reason: Anxiety) Qty: 5 0RF clonidine HCl 0.1 mg Tablet 0.1 mg PO TID Qty: 90 0RF insulin lispro [Humalog KwikPen Insulin] 100 unit/mL Insulin Pen 5 unit subcut TIDAC Qty: 2 0RF acetaminophen 325 mg capsule 650 mg PO Q6H PRN (Reason: fever or pain) Qty: 100 0RF Humalog KwikPen Insulin 200 unit/mL (3 mL) insulin pen subcut insulin lispro [Humalog KwikPen Insulin] 100 unit/mL Insulin Pen See Protocol subcut ACHS Qty: 0 0RF Protocol: 4. Sliding Scale Insulin High-Med Dosing Condition: 150-199 mg/dl = 2 units Condition: 200-259 mg/dl = 4 units Condition: 260-324 mg/dl = 6 units Condition: 325-374 mg/dl = 8 units Condition: 375-409 mg/dl = 10 units Condition: 410-449 mg/dl = 11 units Condition: Greater than 449 call physician Protocol Text: - Use for Total Daily Dose of Insulin 56-80 units - Patient who are insulin resistant or septic HIGH MEDIUM DOSING ALGORITHM Edy (with collagen) 7-7-1.5 gram Powder In Packet 1 packet PO BIDCM Qty: 0 0RF Referrals / Follow Up: Gil Wheeler Chi, MD [Primary Care Provider] - Disposition Disposition (needs filled in before D/C Order can be placed): Home Health Service
[2024-03-04 21:44] LABS: Bedside Glucose 126 mg/dL (74-106)
[2024-03-04] MEDS: Insulin Glargine-YFGN 100 UNIT/ML Pen 30 UNIT SC (22:23)
[2024-03-05] MEDS: oxyCODONE 5 MG Tablet PO (06:28)
[2024-03-05 06:29] VITALS: BP 141/78; PULSE 60
[2024-03-05 06:29] LABS: Bedside Glucose 123 mg/dL (74-106)
[2024-03-05] MEDS: hydrALAZINE 50 MG Tablet 100 MG PO ×3 (06:29→22:12)
[2024-03-05] MEDS: cloNIDine HCl 0.2 MG Tablet PO ×3 (06:29→22:14)
[2024-03-05] MEDS: Enoxaparin 40 MG/0.4 ML Syringe SC (06:29)
[2024-03-05] MEDS: Furosemide 40 MG Tablet PO ×2 (06:30→14:58)
[2024-03-05] MEDS: Acetaminophen 500 MG Tablet 1000 MG PO ×3 (06:30→22:15)
[2024-03-05] MEDS: Levothyroxine 137 MCG Tablet PO (06:33)
[2024-03-05] MEDS: Insulin Lispro 100 UNIT/ML INSULN.PEN 13 UNIT SC ×2 (08:30→12:01)
[2024-03-05] MEDS: Juven (unflavored) Packet 1 PACKET PO ×2 (08:31→17:40)
[2024-03-05] MEDS: Aspirin E.C. 81 MG Tablet PO (08:31)
[2024-03-05] MEDS: Allopurinol 300 MG Tablet PO (08:31)
[2024-03-05] MEDS: Potassium Chloride Oral Tablet 20 MEQ PO ×2 (08:31→17:40)
[2024-03-05 08:32] VITALS: BP 109/55; PULSE 62
[2024-03-05] MEDS: Metoprolol(XL)Succ 25 MG Tablet 12.5 MG PO ×2 (08:32→22:15)
[2024-03-05] MEDS: Losartan Potassium 100 MG Tablet PO (08:32)
[2024-03-05] MEDS: Senna/Docusate Sodium 1 Tablet 2 TABLET PO ×2 (08:32→22:14)
[2024-03-05] MEDS: amLODIPine 5 MG Tablet PO ×2 (08:32→22:15)
[2024-03-05] MEDS: Paroxetine 20 MG Tablet 40 MG PO (08:32)
[2024-03-05] MEDS: Pantoprazole Sodium 40 MG Tablet PO (08:32)
[2024-03-05] MEDS: Cholecalciferol (VIT D3) 25 MCG TABLET (1,000 UNITS) PO (08:33)
[2024-03-05] MEDS: LINAGLIPTIN 5 MG TABLET PO (08:33)
[2024-03-05] MEDS: traMADol 50 MG Tablet PO (08:36)
[2024-03-05] MEDS: Menthol/Lanolin/Calamine/Znox 113 GM Tube 1 APPLIC TOPICAL ×2 (08:43→22:20)
[2024-03-05] MEDS: Nystatin Powder 15gm Bottle 1 APPLIC TOPICAL ×2 (08:43→22:19)
[2024-03-05 11:44] LABS: Bedside Glucose 141 mg/dL (74-106)
[2024-03-05 14:18] VITALS: BP 134/45; PULSE 71; RESP 18; TEMP 36.4; O2SAT 97
[2024-03-05 14:58] VITALS: BP 102/45; PULSE 62
[2024-03-05 16:37] LABS: Bedside Glucose 73 mg/dL (74-106)
[2024-03-05 22:00] LABS: Bedside Glucose 143 mg/dL (74-106)
[2024-03-05 22:12] VITALS: BP 129/52; PULSE 70
[2024-03-05] MEDS: Doxepin Hcl 25 MG Capsule PO (22:12)
[2024-03-05 22:15] VITALS: BP 129/52; PULSE 70
[2024-03-05] MEDS: Insulin Glargine-YFGN 100 UNIT/ML Pen 30 UNIT SC (22:16)
[2024-03-06] VITALS (8 sets, daily range): BP systolic 105–137; BP diastolic 53–97; PULSE 58–75; RESP 18; TEMP 36.1–36.3; O2SAT 96–97
[2024-03-06] MEDS: cloNIDine HCl 0.2 MG Tablet PO ×3 (04:23→23:10)
[2024-03-06] MEDS: Furosemide 40 MG Tablet PO ×2 (04:24→13:19)
[2024-03-06] MEDS: Enoxaparin 40 MG/0.4 ML Syringe SC (04:24)
[2024-03-06] MEDS: Acetaminophen 500 MG Tablet 1000 MG PO ×3 (04:24→23:16)
[2024-03-06] MEDS: Levothyroxine 137 MCG Tablet PO (04:24)
[2024-03-06] MEDS: hydrALAZINE 50 MG Tablet 100 MG PO ×2 (04:27→23:08)
[2024-03-06 05:50] LABS: Absolute Lymphocyte Count 2.76 X10^3/uL (0.83-4.51); Absolute Neutrophil Count 4.4 X10^3/uL (2.0-7.7); Basophil# 0.03 X10^3/uL; Basophil% 0.4 % (0-1); Eosinophil# 0.26 X10^3/uL; Eosinophils% 3.1 % (0-5); Hematocrit 32.1 % (40-54); Hemoglobin 9.9 g/dL (13.0-16.5); Lymphocyte # 2.76 X10^3/ul (0.83-4.51); Lymphocyte % 33.3 % (19-41); Mean Corp Hgb Conc 30.8 g/dL (32-36); Mean Corpuscular Hgb 26.4 pg (27.0-32.0); Mean Corpuscular Volume 85.6 fL (80-94); Monocyte# 0.85 X10^3/uL; Monocyte% 10.2 % (0-10); NRBC Flagged by Analyzer 0 % (0-5); Neutrophil # 4.36 X10^3/uL (2.7-7.7); Neutrophil % 52.5 % (47-70); Platelet Count 511 K/mm3 (150-450); RBC Distribution Width CV 16.3 % (11.6-14.6); RBC Distribution Width SD 50.5 fl (35.1-43.9); Red Blood Count 3.75 M/mm3 (4.6-6.2); White Blood Count 8.3 K/mm3 (4.4-11.0)
[2024-03-06 06:10] LABS: Bedside Glucose 131 mg/dL (74-106)
[2024-03-06 06:35] LABS: Anion Gap 4 (5-15); BUN 59 mg/dL (7-18); BUN/Creat Ratio 46.1 RATIO (10-20); Calcium,Total 8.9 mg/dL (8.5-10.1); Chloride 108 mmol/L (98-107); Creatinine, Serum 1.28 mg/dL (0.70-1.30); EST Glomerular Filtration Rate 58 mL/min (>60); Est Glom Filt Rate - Afr Amer 70 mL/min (>60); Estimated Creatinine Clearance 60.69 ml/min; Glucose 142 mg/dL (74-106); Sodium Level 139 mmol/L (136-145)
[2024-03-06] MEDS: Insulin Lispro 100 UNIT/ML INSULN.PEN 13 UNIT SC ×3 (09:40→18:59)
--- NOTE | 2024-03-06 09:53 | NURSING ---
Pt resting in chair with eyes closed, rouses easily with verbal stimuli. refuses morning medications, stating I need to go Home! educated pt on importance of medications, d/c planned for tomorrow; pt continues with refusing all PO meds and yells that he will not take medications. Offered to come back later, pt continues with irritation and refusal. Vitals: bp-135/61, p-58, r-18, sp02-97% RA.
[2024-03-06] MEDS: Menthol/Lanolin/Calamine/Znox 113 GM Tube 1 APPLIC TOPICAL ×2 (12:03→23:12)
[2024-03-06 13:51] LABS: Bedside Glucose 174 mg/dL (74-106)
--- NOTE | 2024-03-06 14:53 | CASEMGMT ---
Discharge Plan Pt plans to DC home 03/07/24. He continues to refuse discussion about longterm placement. SW made referral to [facility] for PT/OT/NSG services to resume care. They will start care 24-48 hours after DC. SW arranged wheelchair transportation home through [facility]. pantograph machine set up operator time is 1:00. SW met with pt today and updated on plans. SW attempted discussion with pt about future and what happens if he is not able to transfer self. Pt stated that's not going to happen and did not want to talk any further about emt intermediate options for care. Kathya Borrero SERVICE ORDER CLERK
[2024-03-06 17:06] LABS: Bedside Glucose 100 mg/dL (74-106)
[2024-03-06] MEDS: Potassium Chloride Oral Tablet 20 MEQ PO (19:00)
[2024-03-06] MEDS: Juven (unflavored) Packet 1 PACKET PO (19:00)
[2024-03-06] MEDS: traMADol 50 MG Tablet PO (19:06)
[2024-03-06 22:24] LABS: Bedside Glucose 161 mg/dL (74-106)
[2024-03-06] MEDS: Nystatin Powder 15gm Bottle 1 APPLIC TOPICAL (23:11)
[2024-03-06] MEDS: amLODIPine 5 MG Tablet PO (23:13)
[2024-03-06] MEDS: Senna/Docusate Sodium 1 Tablet 2 TABLET PO (23:14)
[2024-03-06] MEDS: Metoprolol(XL)Succ 25 MG Tablet 12.5 MG PO (23:15)
[2024-03-06] MEDS: Doxepin Hcl 25 MG Capsule PO (23:15)
[2024-03-06] MEDS: oxyCODONE 5 MG Tablet PO (23:21)
[2024-03-06] MEDS: Insulin Glargine-YFGN 100 UNIT/ML Pen 30 UNIT SC (23:25)
[2024-03-07] MEDS: traMADol 50 MG Tablet PO (01:19)
[2024-03-07] MEDS: oxyCODONE 5 MG Tablet PO ×2 (03:27→10:37)
[2024-03-07 04:27] VITALS: PULSE 66; O2SAT 97
[2024-03-07 06:10] VITALS: BP 137/56; PULSE 59
[2024-03-07 06:12] VITALS: BP 137/56; PULSE 59
[2024-03-07] MEDS: hydrALAZINE 50 MG Tablet 100 MG PO (06:12)
[2024-03-07] MEDS: cloNIDine HCl 0.2 MG Tablet PO (06:13)
[2024-03-07] MEDS: Levothyroxine 137 MCG Tablet PO (06:15)
[2024-03-07] MEDS: Furosemide 40 MG Tablet PO (06:15)
[2024-03-07] MEDS: Acetaminophen 500 MG Tablet 1000 MG PO (06:16)
[2024-03-07] MEDS: Enoxaparin 40 MG/0.4 ML Syringe SC (06:17)
[2024-03-07 06:25] LABS: Bedside Glucose 111 mg/dL (74-106)
[2024-03-07] MEDS: Insulin Lispro 100 UNIT/ML INSULN.PEN 13 UNIT SC ×2 (08:46→12:18)
[2024-03-07] MEDS: Aspirin E.C. 81 MG Tablet PO (08:53)
[2024-03-07] MEDS: Juven (unflavored) Packet 1 PACKET PO (08:53)
[2024-03-07] MEDS: Allopurinol 300 MG Tablet PO (08:54)
[2024-03-07] MEDS: Potassium Chloride Oral Tablet 20 MEQ PO (08:54)
[2024-03-07] MEDS: Menthol/Lanolin/Calamine/Znox 113 GM Tube 1 APPLIC TOPICAL (08:54)
[2024-03-07] MEDS: Losartan Potassium 100 MG Tablet PO (08:55)
[2024-03-07] MEDS: Nystatin Powder 15gm Bottle 1 APPLIC TOPICAL (08:55)
[2024-03-07] MEDS: amLODIPine 5 MG Tablet PO (08:56)
[2024-03-07] MEDS: Senna/Docusate Sodium 1 Tablet 2 TABLET PO (08:57)
[2024-03-07] MEDS: Paroxetine 20 MG Tablet 40 MG PO (08:57)
[2024-03-07] MEDS: Pantoprazole Sodium 40 MG Tablet PO (08:57)
[2024-03-07 08:59] VITALS: BP 122/53; PULSE 59
[2024-03-07] MEDS: Cholecalciferol (VIT D3) 25 MCG TABLET (1,000 UNITS) PO (09:00)
[2024-03-07] MEDS: LINAGLIPTIN 5 MG TABLET PO (09:00)
[2024-03-07 11:18] LABS: Bedside Glucose 134 mg/dL (74-106)
--- NOTE | 2024-03-07 12:37 | CASEMGMT ---
Social Work SW met with patient and completed DC MDS interviews. BIMS PHQ2 0/2 Kathya MA
== END 2024-03-07 14:13 | disposition home health service (06) | DRG 300 ==
PROVIDERS: Admitting Provider Family Medicine Geriatric Medicine; PCP Family Medicine Geriatric Medicine; Visit Provider Family Medicine Geriatric Medicine
DX: I83.019 Varicose veins of right lower extremity with ulcer of unspecified site (principal); L97.919 Non-pressure chronic ulcer of unspecified part of right lower leg with unspecified severity; Z68.41 Body mass index [BMI] 40.0-44.9, adult; I50.32 Chronic diastolic (congestive) heart failure; L97.929 Non-pressure chronic ulcer of unspecified part of left lower leg with unspecified severity; E11.42 Type 2 diabetes mellitus with diabetic polyneuropathy; E11.59 Type 2 diabetes mellitus with other circulatory complications; E03.9 Hypothyroidism, unspecified; B35.4 Tinea corporis; I11.0 Hypertensive heart disease with heart failure; E66.01 Morbid (severe) obesity due to excess calories; I83.029 Varicose veins of left lower extremity with ulcer of unspecified site; Z79.4 Long term (current) use of insulin; E11.622 Type 2 diabetes mellitus with other skin ulcer; F32.9 Major depressive disorder, single episode, unspecified; M10.9 Gout, unspecified; E87.6 Hypokalemia; E78.5 Hyperlipidemia, unspecified; K21.9 Gastro-esophageal reflux disease without esophagitis; I89.0 Lymphedema, not elsewhere classified; E55.9 Vitamin D deficiency, unspecified; G47.00 Insomnia, unspecified; Z87.891 Personal history of nicotine dependence; H91.90 Unspecified hearing loss, unspecified ear; Z79.82 Long term (current) use of aspirin; Z79.899 Other long term (current) drug therapy; Z23 Encounter for immunization
CPT/HCPCS: 36415; 80048; 82962; 83036; 85025; 90480; 93005; 97110; 97112; 97116; 97162; 97166; 97530; 97535; 97802; 91322; A4216